=== PATIENT | female | born 1975 | race Caucasian/White ===

== ENCOUNTER → 2017-11-17 09:36 | Outpatient (CLI) | payer MEDICAID, SELFPAY ==
[2017-11-17 13:59] LABS: Alanine Aminotransferase 15 U/L (12-78); Albumin Level 3.6 gm/dL (3.4-5.0); Alkaline Phosphatase 61 U/L (46-116); Aspartate Amino Transferase 10 U/L (15-37); Bilirubin,Total 0.2 mg/dL (0.2-1.0); Blood Urea Nitrogen 22 mg/dL (7-18); Calcium 9.1 mg/dL (8.5-10.1); Carbon Dioxide 28 mmol/L (21.0-32.0); Chloride 105 mmol/L (98-107); Chol/HDL Ratio 2.5 (1-3.5); Cholesterol 177 mg/dL (140-200); Creatinine,Serum 0.75 mg/dL (0.55-1.02); Estimated Glomerular Filt Rate 84 ml/min (>60); Free T4 (Free Thyroxine) 0.99 ng/dl (0.76-1.46); GFR (African American) 102 ML/MIN (>60); Globulin 3.5 gm/dl (1.3-3.2); Glucose 88 mg/dL (74-106); HDL Cholesterol 71 mg/dL (29-89); LDL Cholesterol 97 mg/dL (0-130); Sodium 141 mmol/L (136-145); Thyroid Stimulating Hormone 4.01 uIU/ml (0.358-3.740); Total Protein,Serum 7.1 gm/dL (6.4-8.2); Triglycerides 45 mg/dL (30-200); VLDL Cholesterol 9 mg/dL (0-40)
[2017-11-17 14:32] LABS: Basophils % 0.3 % (0.1-2.0); Eosinophils # 0.1 K/mm3 (0.0-0.4); Eosinophils % 1.4 % (0.1-12.0); Hematocrit 47.7 % (37.0-47.0); Hemoglobin 15.4 g/dL (12.2-16.2); Lymphocytes # 1.7 K/mm3 (0.7-4.5); Mean Corpuscular HGB Conc 32.2 g/dL (31.8-35.4); Mean Corpuscular Hemoglobin 31.1 pg (27.0-31.2); Mean Corpuscular Volume 96.5 fl (81-99); Mean Platelet Volume 8.6 fl (7.4-10.4); Monocytes # 0.4 K/mm3 (0.1-1.0); Monocytes % 7.7 % (1.7-9.3); Neutrophils % 57.6 % (37.0-80.0); Platelet Count 171 K/mm3 (142-424); Red Blood Count 4.94 M/mm3 (4.20-5.40); Red Cell Distribution Width 13.3 % (11.5-17.5); White Blood Count 5.3 K/mm3 (4.8-10.8)
[2017-11-18 17:00] LABS: Vitamin B12 456 pg/mL (232-1245); Vitamin D 25 Hydroxy 34.2 ng/mL (30.0-100.0)
== END ==
PROVIDERS: Visit Provider Emergency Medicine
DX: J45.909 Unspecified asthma, uncomplicated (principal)
CPT/HCPCS: 80053; 80061; 82607; 82652; 84439; 84443; 85025

== ENCOUNTER → 2017-12-01 10:47 | Outpatient (CLI) | payer MEDICAID, SELFPAY ==
[2017-12-01 11:25] VITALS: PULSE 73
== END ==
PROVIDERS: PCP Emergency Medicine; Visit Provider Emergency Medicine
DX: J45.909 Unspecified asthma, uncomplicated (principal); R06.09 Other forms of dyspnea
CPT/HCPCS: 94060; 94640

== ENCOUNTER → 2018-02-13 13:45 | Outpatient (REF) | payer MEDICAID, SELFPAY ==
[2018-02-13 19:31] LABS: Anion Gap 11.8 mEq/L (5-15); Blood Urea Nitrogen 13 mg/dL (7-18); Calcium 9.2 mg/dL (8.5-10.1); Carbon Dioxide 32 mmol/L (21.0-32.0); Chloride 105 mmol/L (98-107); Creatinine,Serum 0.78 mg/dL (0.55-1.02); Estimated Glomerular Filt Rate 80 ml/min (>60); Free T4 (Free Thyroxine) 0.99 ng/dl (0.76-1.46); GFR (African American) 97 ML/MIN (>60); Glucose 87 mg/dL (74-106); Potassium 4.8 mmoL/L (3.5-5.1); Sodium 144 mmol/L (136-145); Thyroid Stimulating Hormone 3.43 uIU/ml (0.358-3.740)
== END ==
LOC: LAB 13:45
PROVIDERS: Visit Provider Emergency Medicine
DX: E03.9 Hypothyroidism, unspecified (principal)
CPT/HCPCS: 80048; 84439; 84443

== ENCOUNTER → 2018-03-06 19:42 | Outpatient (CLI) | payer MEDICAID, SELFPAY | PROVIDERS: PCP Emergency Medicine; Visit Provider Emergency Medicine | DX: G47.30 Sleep apnea, unspecified (principal); R40.0 Somnolence; E66.9 Obesity, unspecified | CPT/HCPCS: 95810 ==

== ENCOUNTER → 2018-04-25 06:29 | Outpatient (CLI) | payer MEDICAID, SELFPAY ==
--- NOTE | 2018-04-25 06:30 | MM_ITS ---
MM Dig screening mamm BI w/CAD ORDERING PHYSICIAN : Mahendra Jim MD PATIENT AGE: 43 years GENDER: Female COMPARISON: Outside mammogram studies from [facility] dated August 2014 INDICATION: ITS.REASON: screening asymptomatic. Family history of mother with ovarian cancer. Paternal Grandmother with breast cancer in her 70s TECHNIQUE: Standard CC and MLO images were obtained. R2 CAD reviewed. Additional bilateral nipple profile cc and right MLO view FINDINGS: Low-density breast bilaterally with generalized fatty replacement. . No mass lesion or suspicious calcification. Negative stable bilateral mammogram. Follow-up in one year adequate . IMPRESSION: Negative stable bilateral mammogram. Follow-up in one year adequate BI-RADS Category: 1 Negative RECOMMENDED FOLLOW-UP: 1YR 1 YEAR FOLLOW-UP (A letter has been sent to the patient regarding results of the study.)
--- NOTE | 2018-04-25 06:30 | NM_ITS ---
CARDIOLITE SPECT MYOCARDIAL PERFUSION SCAN, REST AND STRESS: EXERCISE STRESS [facility] REVIEW QGS EF AND WALL MOTION EVALUATION: QPS - PERFUSION EVALUATION HISTORY: CHEST PAIN DOSE: 10.38 mCi technetium 99m mibi intravenously at rest followed by 30.7 mCi technetium 99m mibi following the intravenous ministration of 0.4 mg of Lexiscan. Resting blood pressure is 113/55. Stress blood pressure 121/66. FINDINGS: Ejection fraction is calculated to be 66. Stress images reveal severely decreased activity throughout the inferior wall apex and septal wall. Rest images reveal worsening activity in the affected areas gated images calculated ejection fraction of 66% with normal wall motion IMPRESSION: Clinical correlation is advised. 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 However the gated images do reveal normal ejection fraction. Nevertheless this is still a high risk abnormal stress test
--- NOTE | 2018-04-25 07:24 | HMH.ITSHM ---
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 []WELLBUTRIN TRAZADONE ABILIFY HYDROXIZINE BISOPROLOL HYDROCHLOROTHIAZIDE OMEPRAZOLE LEVOTHYROXINE
[2018-04-25 07:52] LABS: Basophils % 0.4 % (0.1-2.0); Eosinophils # 0.1 K/mm3 (0.0-0.4); Hematocrit 48.6 % (37.0-47.0); Hemoglobin 16.1 g/dL (12.2-16.2); Lymphocytes # 1.9 K/mm3 (0.7-4.5); Lymphocytes % 23.8 % (10-50); Mean Corpuscular HGB Conc 33.1 g/dL (31.8-35.4); Mean Corpuscular Hemoglobin 31.7 pg (27.0-31.2); Mean Corpuscular Volume 95.8 fl (81-99); Mean Platelet Volume 7.5 fl (7.4-10.4); Monocytes # 0.5 K/mm3 (0.1-1.0); Monocytes % 5.7 % (1.7-9.3); Neutrophils # 5.6 K/mm3 (1.8-7.8); Neutrophils % 69.2 % (37.0-80.0); Platelet Count 207 K/mm3 (142-424); Red Blood Count 5.07 M/mm3 (4.20-5.40); Red Cell Distribution Width 13.3 % (11.5-17.5); White Blood Count 8.1 K/mm3 (4.8-10.8)
[2018-04-25 09:26] LABS: Alanine Aminotransferase 19 U/L (12-78); Albumin Level 3.7 gm/dL (3.4-5.0); Alkaline Phosphatase 74 U/L (46-116); Anion Gap 12.3 mEq/L (5-15); Aspartate Amino Transferase 6 U/L (15-37); Bilirubin,Direct 0.1 mg/dL (0.0-0.2); Bilirubin,Total 0.2 mg/dL (0.2-1.0); Blood Urea Nitrogen 25 mg/dL (7-18); Calcium 9.3 mg/dL (8.5-10.1); Carbon Dioxide 32 mmol/L (21.0-32.0); Chloride 101 mmol/L (98-107); Chol/HDL Ratio 3.1 (1-3.5); Cholesterol 178 mg/dL (140-200); Creatinine,Serum 0.77 mg/dL (0.55-1.02); Estimated Glomerular Filt Rate 81 ml/min (>60); Free T4 (Free Thyroxine) 0.98 ng/dl (0.76-1.46); GFR (African American) 99 ML/MIN (>60); Globulin 3.8 gm/dl (1.3-3.2); Glucose 104 mg/dL (74-106); HDL Cholesterol 57 mg/dL (29-89); LDL Cholesterol 96 mg/dL (0-130); Potassium 4.3 mmoL/L (3.5-5.1); Sodium 141 mmol/L (136-145); Thyroid Stimulating Hormone 2.81 uIU/ml (0.358-3.740); Total Protein,Serum 7.5 gm/dL (6.4-8.2); Triglycerides 126 mg/dL (30-200); VLDL Cholesterol 25 mg/dL (0-40)
== END ==
PROVIDERS: Nurse Practitioner Psychiatric/Mental Health; PCP Emergency Medicine; Visit Provider Internal Medicine Cardiovascular Disease
DX: Z12.31 Encounter for screening mammogram for malignant neoplasm of breast (principal); R07.9 Chest pain, unspecified; R06.09 Other forms of dyspnea; I10 Essential (primary) hypertension; I49.1 Atrial premature depolarization
CPT/HCPCS: 36415; 77067; 78452; 80053; 80061; 82248; 84439; 84443; 84481; 85025; 93017; 93306; A9502; J2785

== ENCOUNTER → 2018-07-09 10:43 | Outpatient (CLI) | payer MEDICAID, SELFPAY ==
[2018-07-09 11:34] LABS: Anion Gap 14.3 mEq/L (5-15); Blood Urea Nitrogen 22 mg/dL (7-18); Calcium 8.7 mg/dL (8.5-10.1); Carbon Dioxide 29 mmol/L (21.0-32.0); Chloride 99 mmol/L (98-107); Estimated Glomerular Filt Rate 68 ml/min (>60); GFR (African American) 82 ML/MIN (>60); Glucose 107 mg/dL (74-106); Potassium 3.3 mmoL/L (3.5-5.1); Sodium 139 mmol/L (136-145)
== END ==
PROVIDERS: Visit Provider Nurse Practitioner Family
DX: R06.02 Shortness of breath (principal); E66.9 Obesity, unspecified
CPT/HCPCS: 36415; 80048

== ENCOUNTER → 2018-08-03 14:53 | Outpatient (CLI) | payer MEDICAID, SELFPAY ==
[2018-08-03 17:40] LABS: Anion Gap 14.8 mEq/L (5-15); Blood Urea Nitrogen 17 mg/dL (7-18); Calcium 8.9 mg/dL (8.5-10.1); Carbon Dioxide 27 mmol/L (21.0-32.0); Chloride 102 mmol/L (98-107); Creatinine,Serum 0.98 mg/dL (0.55-1.02); Estimated Glomerular Filt Rate 62 ml/min (>60); GFR (African American) 75 ML/MIN (>60); Glucose 107 mg/dL (74-106); Potassium 3.8 mmoL/L (3.5-5.1); Sodium 140 mmol/L (136-145)
== END ==
PROVIDERS: Visit Provider Nurse Practitioner Family
DX: R06.00 Dyspnea, unspecified (principal); E66.9 Obesity, unspecified; E78.5 Hyperlipidemia, unspecified; I10 Essential (primary) hypertension; I51.9 Heart disease, unspecified; J44.9 Chronic obstructive pulmonary disease, unspecified; R07.9 Chest pain, unspecified; Z72.0 Tobacco use
CPT/HCPCS: 36415; 80048

== ENCOUNTER → 2018-12-05 08:57 | Outpatient (CLI) | payer MEDICAID, SELFPAY ==
[2018-12-05 10:28] LABS: Blood Urea Nitrogen 15 mg/dL (7-18); Calcium 8.8 mg/dL (8.5-10.1); Carbon Dioxide 30 mmol/L (21.0-32.0); Chloride 104 mmol/L (98-107); Creatinine,Serum 0.98 mg/dL (0.55-1.02); Estimated Glomerular Filt Rate 62 ml/min (>60); GFR (African American) 75 ML/MIN (>60); Glucose 97 mg/dL (74-106); Sodium 142 mmol/L (136-145)
== END ==
PROVIDERS: Visit Provider Nurse Practitioner Family
DX: R94.30 Abnormal result of cardiovascular function study, unspecified (principal); R06.00 Dyspnea, unspecified; E66.9 Obesity, unspecified; E78.5 Hyperlipidemia, unspecified; I10 Essential (primary) hypertension; I51.9 Heart disease, unspecified; J44.9 Chronic obstructive pulmonary disease, unspecified; Z72.0 Tobacco use
CPT/HCPCS: 36415; 80048

== ENCOUNTER → 2019-01-01 09:48 | Outpatient (CLI) | payer MEDICAID, SELFPAY ==
--- NOTE | 2019-01-01 09:52 | XR_ITS ---
XR foot RT min 3V HISTORY: ITS.REASON: right foot pain ORDERING PHYSICIAN: Beny Chris MD PATIENT AGE: 43 years COMPARISON: None FINDINGS: No fracture or dislocation. No lytic or blastic change. There is normal mineralization.. The joint spaces are well-preserved. No significant degenerative/arthritic changes. No erosive changes evident. Incidental note made of a small calcaneal spur and a small area of exostosis of the neck of the talus anteriorly IMPRESSION: No acute finding
== END ==
PROVIDERS: PCP Emergency Medicine; Visit Provider Emergency Medicine
DX: M79.671 Pain in right foot (principal)
CPT/HCPCS: 73630

== ENCOUNTER → 2019-05-20 11:39 | Outpatient (CLI) | payer MEDICAID, SELFPAY ==
--- NOTE | 2019-05-20 11:43 | XR_ITS ---
PROCEDURE: XR CHEST 2V CLINICAL HISTORY: cough Cough, smoker COMPARISON: No exams were available for comparison FINDINGS: The cardiomediastinal silhouette and pulmonary vascularity are within normal limits. The lungs are clear without infiltrates, suspicious nodules, or pleural effusions. There are degenerative changes in the thoracic IMPRESSION: No acute findings. Dictated by: Vaughn Jalloh MD 05/20/2019 12:02 Electronically signed by Vaughn Jalloh MD in [place] 05/20/2019 12:02
[2019-05-20 13:06] LABS: Anion Gap 13.5 mEq/L (5-15); Blood Urea Nitrogen 13 mg/dL (7-18); Calcium 8.5 mg/dL (8.5-10.1); Carbon Dioxide 28 mmol/L (21.0-32.0); Chloride 103 mmol/L (98-107); Creatinine,Serum 0.92 mg/dL (0.55-1.02); Estimated Glomerular Filt Rate 66 ml/min (>60); GFR (African American) 80 ML/MIN (>60); Glucose 93 mg/dL (74-106); Potassium 4.5 mmoL/L (3.5-5.1); Sodium 140 mmol/L (136-145)
[2019-05-20 13:09] LABS: Troponin I < 0.02 ng/ml (0.00-0.06)
== END ==
PROVIDERS: PCP Emergency Medicine; Visit Provider Physician Assistant
DX: R05 Cough (principal); R06.2 Wheezing; R09.89 Other specified symptoms and signs involving the circulatory and respiratory systems; R06.09 Other forms of dyspnea; R07.9 Chest pain, unspecified; E78.2 Mixed hyperlipidemia; I10 Essential (primary) hypertension; I49.1 Atrial premature depolarization; J43.9 Emphysema, unspecified; R94.30 Abnormal result of cardiovascular function study, unspecified
CPT/HCPCS: 36415; 71046; 80048; 84484

== ENCOUNTER → 2019-11-07 15:46 | Outpatient (CLI) | payer MEDICAID, SELFPAY ==
--- NOTE | 2019-11-07 15:46 | MM_ITS ---
PROCEDURE: MM DIG SCREENING MAMM BI W/CAD Digital Breast Tomosynthesis Included CLINICAL INDICATION: screening There is a history of breast cancer patient's paternal grandmother and paternal great aunt. COMPARISON: [facility] Digital Mammo Screening from 08/26/2014 [facility] MM Dig screening mamm BI w/CAD from 04/25/2018 TECHNIQUE: Standard CC and MLO images and 3D Tomosynthesis was obtained. R2 CAD reviewed. FINDINGS: The breasts are composed almost entirely of fat with very minimal scattered fibroglandular densities noted. New or suspicious lesion in either breast and no suspicious microcalcifications. IMPRESSION: Low-density fatty type breast parenchyma with no suspicious lesions seen BI-RAD Category: 1 Negative FOLLOW-UP: 1YR 1 Year Follow-up (A letter has been sent to the patient regarding results of the study.) Dictated by: Dr. Kirt Ba MD 11/08/2019 08:[address] Kirt Ba MD in [place] 11/08/2019 08:52
== END ==
PROVIDERS: PCP Emergency Medicine; Visit Provider Emergency Medicine
DX: Z12.31 Encounter for screening mammogram for malignant neoplasm of breast (principal)
CPT/HCPCS: 77063; 77067

== ENCOUNTER → 2020-03-20 18:45 | Outpatient (CLI) | payer MEDICAID, SELFPAY ==
[2020-03-24 07:57] LABS: Neisseria gonorrhoeae, NAA Negative (Negative)
== END ==
PROVIDERS: Visit Provider Nurse Practitioner Family
DX: R30.0 Dysuria (principal)
CPT/HCPCS: 87086; 87491; 87591

== ENCOUNTER → 2020-04-07 17:35 | Outpatient (CLI) | payer MEDICAID, SELFPAY | PROVIDERS: Visit Provider Emergency Medicine | DX: R39.9 Unspecified symptoms and signs involving the genitourinary system (principal) | CPT/HCPCS: 87086 ==

== ENCOUNTER 2020-06-12 16:44 | Emergency (ER) | payer MEDICAID, SELFPAY ==
--- NOTE | 2020-06-12 16:34 | ECG_ITS ---
APPROVED REPORT Exam: Resting ECG HR:109 bpm ECG Measurements Heart Rate 109 AXES MN 160 P 57 QRSd 80 QRS 32 QT 332 T 54 QTc 447 Conclusion Sinus tachycardia Low voltage QRS Cannot rule out Anterior infarct, age undetermined Abnormal ECG Electronically signed by : Mario Salcido, 06/12/2020 21:05:18
[2020-06-12 16:45] VITALS: BP 142/81; PULSE 112; RESP 32; TEMP 36.6; O2SAT 98; BMI 53.4
--- NOTE | 2020-06-12 16:51 | CT_ITS ---
PROCEDURE: CT ANGIO CHEST CLINCIAL INDICATION: Pleuritic chest pain (r/o PE) COMPARISON: No exams were available for comparison TECHNIQUE: IV Contrast: 70ML Isovue 370 Axial images obtained with sagittal and coronal reformats. All CT scans at the facility use one or more dose reduction, viz: automated exposure control, ma/kV adjustment per patient size (including targeted exams where dose is matched to indication, i.e. head), or iterative reconstruction technique. FINDINGS: Pulmonary artery enhancement is limited despite repeating the exam at different timing. No evidence of aortic aneurysm or dissection. No obvious central pulmonary embolus. Peripheral pulmonary arteries are not well opacified. There are scattered small mediastinal lymph nodes. There are mild atelectatic changes in the lung bases. No acute bony findings. There are degenerative changes in the thoracic spine mid to lower thoracic osteophytosis. There are old right-sided rib fractures. No evidence of pneumothorax. IMPRESSION: Minimal atelectatic changes in the lung bases. No obvious pulmonary embolus. Scattered small mediastinal lymph nodes. The Dictated by: Vaughn Jalloh MD 06/13/2020 06:20 Vaughn Jalloh MD in [place] 06/13/2020 06:20
--- NOTE | 2020-06-12 16:51 | XR_ITS ---
PROCEDURE: XR CHEST PORTABLE CLINICAL HISTORY: chest pain COMPARISON: CR XR CHEST 2V from 05/20/[address] ANGIO CHEST from 06/12/2020 FINDINGS: The cardiomediastinal silhouette and pulmonary vascularity are within normal limits. The lungs are clear without infiltrates, suspicious nodules, or pleural effusions. There are mild multilevel degenerate changes lower thoracic spine. No acute bony abnormalities. IMPRESSION: No acute findings. Dictated by: Dr. Kirt Ba MD 06/12/2020 19:22 Dr. Kirt Ba MD in [place] 06/12/2020 19:22
--- NOTE | 2020-06-12 16:51 | HMH.EDGENADL ---
ED Disposition Condition on Discharge: Fair - Critical Care Critical Care Time: No <Toi Anne - Last Filed: 06/12/20 19:51> <Beny Chris - Last Filed: 06/12/20 20:45> Clinical Impression: Right leg pain, Elevated d-dimer Chest pain Qualifiers: Chest pain type: unspecified Qualified Code(s): R07.9 - Chest pain, unspecified Disposition: Home, Self-Care Instructions: DI for Atypical Chest Pain Additional Instructions: will obtain venous doppler in am and see monday Referrals: Provider,Referral, [Referring] - Attestation: On 06/12/20, the high probability of a clinically significant, sudden or life threatening deterioration of the following system(s) required my full and direct attention, intervention and personal management. The time I documented below is in addition to time spent performing reported procedures but includes the following listed in this critical care notation. Medical Decision Making - Medical Records Medical records reviewed: Yes: I reviewed the patient's medical records. - Estrada Inquiry Pt receiving controlled substance: No - Lab Data Result diagrams: 06/12/20 16:50 06/12/20 16:50 <Toi Anne - Last Filed: 06/12/20 19:51> - Lab Data Lab results reviewed: Yes: I reviewed the patient's lab results. Result diagrams: 06/12/20 16:50 06/12/20 16:50 - Radiology Data #1 Image(s): Chest Image Reviewed: Yes I reviewed the patient's radiology image Preliminary Findings: Normal/NAD - ASHLEY Score for Non-Stemi Age of Patient: 40-49 years old Heart Rate: 110-149 bpm Systolic Blood Pressure: 140-159 mmHg Serum Creatinine: 0.80-1.19 mg/dl CHF Killip Class: I-No CHF Other Risk Factors: None Non-Stemi Risk Score: 80 <Beny Chris - Last Filed: 06/12/20 20:45> Vital Signs: 06/12/20 16:45 06/12/20 17:00 06/12/20 17:30 Temperature 98 F Temperature Source Oral Pulse Rate [Radial] 112 H 109 H 108 H Respiratory Rate 32 H 16 Blood Pressure [Right Radial Artery] 142/81 H 117/69 134/79 Blood Pressure Mean [Right Radial Artery] 101 85 97 Blood Pressure Position [Right Radial Artery] Sitting Sitting Sitting 02 Sat by Pulse Oximetry 98 96 96 Oxygen Delivery Method Room Air Room Air Room Air 06/12/20 18:30 Temperature Temperature Source Pulse Rate [Radial] 100 H Respiratory Rate Blood Pressure [Right Radial Artery] 145/88 H Blood Pressure Mean [Right Radial Artery] 107 Blood Pressure Position [Right Radial Artery] Sitting 02 Sat by Pulse Oximetry 99 Oxygen Delivery Method Room Air - Lab Data Lab Results 06/12/20 16:10: D-Dimer 0.93 H 06/12/20 16:50: WBC 7.7, RBC 4.38, Hgb 13.5, Hct 41.1, MCV 94.0, MCH 30.8, MCHC 32.7, RDW 13.5, Plt Count 234, MPV 8.4, Neut % (Auto) 70.4, Lymph % (Auto) 22.1, [place] % (Auto) 5.2, Eos % (Auto) 1.6, Baso % (Auto) 0.7, Neut # (Auto) 5.4, Lymph # (Auto) 1.7, [place] # (Auto) 0.4, Eos # (Auto) 0.1, Baso # (Auto) 0.1 06/12/20 16:50: Sodium 141, Potassium 4.0, Chloride 107, Carbon Dioxide 30, Anion Gap 8.0, BUN 16, Creatinine 0.90, Estimated GFR 67, Est GFR ( Amer) 82, Glucose 120 H, Calcium 8.7, Total Bilirubin 0.3, AST 31, ALT 19, Alkaline Phosphatase 75, Troponin I < 0.01, Total Protein 6.8, Albumin 3.5, Globulin 3.3 H, Albumin/Globulin Ratio 1.1 06/12/20 18:45: Group A Strep Rapid Negative 06/12/20 20:10: Troponin I < 0.01 Orders (Tests/Meds): ED MEDICATIONS Generic Name Dose Route Start Last Admin Trade Name Freq PRN Reason Stop Dose Admin Lactated Ringer's 1,000 mls @ 999 mls/hr 06/12/20 18:45 06/12/20 18:33 Lactated Ringer's 1000 Ml Bag IV 06/12/20 19:45 999 mls/hr .Q1H1M GERMAN Administration Discontinued Medications Generic Name Dose Route Start Last Admin Trade Name Freq PRN Reason Stop Dose Admin Iopamidol 70 ml 06/12/20 18:11 06/12/20 18:11 Iopamidol-370 (76%);100ml Bottle IV 06/12/20 18:12 70 ml ONCE ONE Administration Morphine Sulfate 4 mg 06/12/20 18:37 0
[2020-06-12 16:58] LABS: Basophils # 0.1 K/mm3 (0-0.2); Basophils % 0.7 % (0.1-2.0); Eosinophils # 0.1 K/mm3 (0.0-0.4); Eosinophils % 1.6 % (0.1-12.0); Hematocrit 41.1 % (37.0-47.0); Hemoglobin 13.5 g/dL (12.2-16.2); Lymphocytes # 1.7 K/mm3 (0.7-4.5); Lymphocytes % 22.1 % (10-50); Mean Corpuscular HGB Conc 32.7 g/dL (31.8-35.4); Mean Corpuscular Hemoglobin 30.8 pg (27.0-31.2); Mean Platelet Volume 8.4 fl (7.4-10.4); Monocytes # 0.4 K/mm3 (0.1-1.0); Monocytes % 5.2 % (1.7-9.3); Neutrophils # 5.4 K/mm3 (1.8-7.8); Neutrophils % 70.4 % (37.0-80.0); Platelet Count 234 K/mm3 (142-424); Red Blood Count 4.38 M/mm3 (4.20-5.40); Red Cell Distribution Width 13.5 % (11.5-17.5); White Blood Count 7.7 K/mm3 (4.8-10.8)
[2020-06-12 17:00] VITALS: BP 117/69; PULSE 109; RESP 16; O2SAT 96
[2020-06-12 17:02] LABS: Chloride 107 mmol/L (98-107); Sodium 141 mmol/L (136-145)
[2020-06-12 17:04] LABS: Alanine Aminotransferase 19 U/L (12-78); Aspartate Amino Transferase 31 U/L (14-36); Blood Urea Nitrogen 16 mg/dl (7-17); Estimated Glomerular Filt Rate 67 ml/min (>60); GFR (African American) 82 ML/MIN (>60)
[2020-06-12 17:05] LABS: Albumin Level 3.5 g/dl (3.5-5.0); Albumin/Globulin Ratio 1.1 (1.1-1.8); Alkaline Phosphatase 75 U/L (38-126); Bilirubin,Total 0.3 mg/dl (0.2-1.3); Calcium 8.7 mg/dl (8.4-10.2); Carbon Dioxide 30 mmol/L (22.0-30.0); Globulin 3.3 g/dL (1.3-3.2); Glucose 120 mg/dl (74-100); Total Protein,Serum 6.8 g/dl (6.3-8.2)
[2020-06-12 17:20] LABS: Troponin I < 0.01 ng/ml (0.00-0.034)
[2020-06-12 17:30] VITALS: BP 134/79; PULSE 108; O2SAT 96
[2020-06-12 18:30] VITALS: BP 145/88; PULSE 100; O2SAT 99
[2020-06-12 18:39] LABS: D-Dimer 0.93 ug/mL (0.0-0.5)
[2020-06-12 19:00] LABS: Strep Scrn Group A (Rapid) Negative (Negative)
[2020-06-12 20:39] LABS: Troponin I < 0.01 ng/ml (0.00-0.034)
[2020-06-12 20:48] VITALS: BP 118/69; PULSE 108; RESP 20; TEMP 36.8; O2SAT 96
== END 2020-06-12 20:57 | disposition home or self-care (01) ==
PROVIDERS: Emergency Provider Emergency Medicine; PCP Emergency Medicine
DX: M79.661 Pain in right lower leg (principal); R07.9 Chest pain, unspecified; J45.909 Unspecified asthma, uncomplicated; K21.9 Gastro-esophageal reflux disease without esophagitis; E03.9 Hypothyroidism, unspecified; F41.8 Other specified anxiety disorders; E66.9 Obesity, unspecified; Z68.43 Body mass index [BMI] 50.0-59.9, adult; Z20.822 Contact with and (suspected) exposure to COVID-19; F17.210 Nicotine dependence, cigarettes, uncomplicated
CPT/HCPCS: 71045; 71275; 80053; 84484; 85025; 85378; 87430; 93005; 96365; 99284; J2405; Q9967; U0003

== ENCOUNTER → 2020-06-13 11:57 | Outpatient (CLI) | payer MEDICAID, SELFPAY ==
--- NOTE | 2020-06-13 12:00 | CA_ITS ---
APPROVED REPORT Right Lower Extremity Venous Study for DVT. Excel Developer: Colleen Boggs RVT Indications Lower Extremity Pain: Right Lower Extremity Edema: Right Shortness of breath Current Smoker RLE PAIN/EDEMA X SEVERAL DAYS, NKI Risk Factors Obesity Current Smoker Vein Imaging CFV (R): compressive, spontaneous, phasic, augmentation FEM (R): compressive, spontaneous, phasic, augmentation POP (R): compressive, spontaneous, phasic, augmentation PTV (R): Compressible GSV (R): Compressible Peroneals (R):Compressible GAS (R): Compressible Findings Study suggests no evidence of DVT of the right lower extremity. Study suggests no evidence of SVT of the right lower extremity. Conclusion Study suggests no evidence of DVT of the right lower extremity. Study suggests no evidence of SVT of the right lower extremity. Electronically signed by : Vaughn Jalloh MD 06/15/2020 15:18:41
== END ==
PROVIDERS: PCP Emergency Medicine; Visit Provider Emergency Medicine
DX: M79.661 Pain in right lower leg (principal); M79.89 Other specified soft tissue disorders
CPT/HCPCS: 93971

== ENCOUNTER → 2020-06-15 16:47 | Outpatient (CLI) | payer MEDICAID, SELFPAY ==
[2020-06-15 17:41] LABS: Free T4 (Free Thyroxine) 0.98 ng/dl (0.78-2.19)
[2020-06-15 17:56] LABS: Thyroid Stimulating Hormone 4.46 uIU/mL (0.465-4.68)
== END ==
LOC: LAB 16:48 → LAB.DROPOF 16:54
PROVIDERS: Visit Provider Emergency Medicine
DX: R60.9 Edema, unspecified (principal); Z79.899 Other long term (current) drug therapy
CPT/HCPCS: 84439; 84443

== ENCOUNTER → 2020-07-10 12:43 | Outpatient (CLI) | payer MEDICAID, SELFPAY | PROVIDERS: PCP Emergency Medicine; Visit Provider Emergency Medicine | DX: Z20.822 Contact with and (suspected) exposure to COVID-19 (principal) | CPT/HCPCS: U0003 ==

== ENCOUNTER → 2020-10-22 11:55 | Outpatient (CLI) | payer MEDICAID, SELFPAY ==
[2020-10-22 12:38] LABS: Chloride 103 mmol/L (98-107); Sodium 140 mmol/L (136-145)
[2020-10-22 12:41] LABS: Blood Urea Nitrogen 19 mg/dl (7-17); Estimated Glomerular Filt Rate 60 ml/min (>60); GFR (African American) 72 ML/MIN (>60)
[2020-10-22 12:42] LABS: Alanine Aminotransferase 16 U/L (12-78); Albumin Level 4.1 g/dl (3.5-5.0); Alkaline Phosphatase 86 U/L (38-126); Aspartate Amino Transferase 24 U/L (14-36); Bilirubin,Direct 0.2 mg/dl (0.0-0.4); Bilirubin,Total 0.2 mg/dl (0.2-1.3); Calcium 9.4 mg/dl (8.4-10.2); Carbon Dioxide 30 mmol/L (22.0-30.0); Chol/HDL Ratio 3.7 (1-3.5); Cholesterol 187 mg/dl (140-200); Glucose 110 mg/dl (74-100); HDL Cholesterol 51 mg/dl (40-60); Total Protein,Serum 6.9 g/dl (6.3-8.2); Triglycerides 141 mg/dl (30-150); VLDL Cholesterol 28 mg/dL (0-40)
[2020-10-22 12:48] LABS: NT Pro Brain Natriuretic Pep. 263 pg/mL (0-125)
[2020-10-22 12:53] LABS: Direct LDL Cholesterol 107.09 mg/dL (100-129)
== END ==
PROVIDERS: Visit Provider Internal Medicine Cardiovascular Disease
DX: I50.9 Heart failure, unspecified (principal); R60.9 Edema, unspecified; G62.9 Polyneuropathy, unspecified; F41.9 Anxiety disorder, unspecified; G47.33 Obstructive sleep apnea (adult) (pediatric); E66.9 Obesity, unspecified; Z68.44 Body mass index [BMI] 60.0-69.9, adult
CPT/HCPCS: 36415; 80048; 80061; 80076; 83880

== ENCOUNTER → 2020-10-28 11:09 | Outpatient (CLI) | payer MEDICAID, SELFPAY ==
--- NOTE | 2020-10-28 11:11 | CA_ITS ---
APPROVED REPORT EXAM: Comprehensive 2D, Doppler, and color-flow Echocardiogram Supply Chain Consultant: Colleen Boggs RVT Ht: 5 ft 2 in Wt: 310lbs BSA: 2.30 BP: 142/88 mmHg Indications: SOA,CP,SMOKER,OBESITY,DD,GERD,EMPHYSEMA,HTN,HLD,EDEMA 2D Dimensions LVOT 1.84 cm (M/F) 1.5-2.5 LA Volume 43.90 mL LA Volume Index 19.08 mL/m2 (M/F) 16-34 M-Mode Dimensions RVDd 2.90 cm (0.9-2.6) LA Diam 4.50 cm (1.9-4.0) LVDd 5.11 cm (3.5-5.7) Ao Diam 3.15 cm (2.0-3.7) LVDs 2.66 cm (3.5-5.7) IVSd 1.01 cm (0.6-1.1) PWd 0.85 cm (0.6-1.1) EF (Teich) 79.10% FS 47.90% EDV (Teich) 124.40 mL TAPSE 2.99 (<1.7) ESV (Teich) 26.00 mL LV Diastology E Decel Time 187.00 (160-240 msec) E/A Ratio 1.1 MED E' 8.60 (< 7 cm/sec) E'/MED E' Ratio 13.60 (>14) LAT E' 11.10 (<10 cm/sec) E/LAT E' Ratio 10.54 (>14) Aortic Valve AO Peak GR. 9.80 mmHg Mitral Valve MV E Max Tonny. 117.00 (40-130 cm/s) MV A Velocity 102.00 (40-130 cm/s) E/A Ratio 1.14 MV Decel. Time 187.00 (160-240 ms) MV PHT 55.00 ms Pulmonary Valve PV Peak Velocity 90.00 (50-150 cm/s) Tricuspid Valve TR P. Velocity 312.00 cm/s RAP Estimate 10.00 mmHg RVSP 48.80 mmHg Left Ventricle Left atrium is mildly enlarged, left ventricle is normal size, mild concentric left ventricular hypertrophy, visually estimated ejection fraction 55% with no regional wall motion abnormality, grade 1 diastolic dysfunction seen without tissue Doppler evidence of raise left atrial pressure. Right Ventricle Right atrium and right ventricle are mildly enlarged with normal contractility. Aortic Valve Aortic valve is grossly normal, there is no aortic stenosis or aortic insufficiency. Mitral Valve Mitral valve grossly normal, there is trace mitral regurgitation. Tricuspid Valve Tricuspid grossly normal, there is trace tricuspid regurgitation, tricuspid regurgitation jet velocity is inadequate for calculation of the right ventricular systolic pressure. Pulmonic Valve Pulmonic valve is poorly visualized. Great Vessels Aortic root is normal size. Pericardium No significant pericardial effusion noted. Conclusion 1. Mild biatrial enlargement, normal left ventricular size, mild concentric left ventricular hypertrophy, visually estimated ejection fraction 55% with no regional wall motion abnormality, grade 1 diastolic dysfunction seen without tissue Doppler evidence of raise left atrial pressure. 2. Mildly enlarged right ventricle with normal contractility. 3. Trace mitral and tricuspid regurgitation. 4. No significant pericardial effusion noted. Electronically signed by : Mahendra Jim, 10/29/2020 16:13:14
== END ==
PROVIDERS: PCP Emergency Medicine; Visit Provider Internal Medicine Cardiovascular Disease
DX: R07.9 Chest pain, unspecified (principal); R06.00 Dyspnea, unspecified
CPT/HCPCS: 93306

== ENCOUNTER → 2020-11-05 10:56 | Outpatient (CLI) | payer MEDICAID, SELFPAY ==
[2020-11-05 11:18] LABS: Basophils % 0.3 % (0.1-2.0); Eosinophils # 0.1 K/mm3 (0.0-0.4); Hematocrit 42.2 % (37.0-47.0); Hemoglobin 14.1 g/dL (12.2-16.2); Lymphocytes # 1.2 K/mm3 (0.7-4.5); Lymphocytes % 16.1 % (10-50); Mean Corpuscular HGB Conc 33.3 g/dL (31.8-35.4); Mean Corpuscular Hemoglobin 30.9 pg (27.0-31.2); Mean Corpuscular Volume 92.8 fl (81-99); Mean Platelet Volume 7.9 fl (7.4-10.4); Monocytes # 0.3 K/mm3 (0.1-1.0); Monocytes % 3.8 % (1.7-9.3); Neutrophils # 5.6 K/mm3 (1.8-7.8); Neutrophils % 78.9 % (37.0-80.0); Platelet Count 211 K/mm3 (142-424); Red Blood Count 4.55 M/mm3 (4.20-5.40); Red Cell Distribution Width 13.9 % (11.5-17.5); White Blood Count 7.1 K/mm3 (4.8-10.8)
[2020-11-05 11:54] LABS: Chloride 100 mmol/L (98-107)
[2020-11-05 11:55] LABS: Potassium 4.5 mmoL/L (3.5-5.1); Sodium 136 mmol/L (136-145)
[2020-11-05 11:57] LABS: Alanine Aminotransferase 18 U/L (12-78); Alkaline Phosphatase 87 U/L (38-126); Aspartate Amino Transferase 25 U/L (14-36); Bilirubin,Total 0.4 mg/dl (0.2-1.3); Blood Urea Nitrogen 12 mg/dl (7-17); Estimated Glomerular Filt Rate 77 ml/min (>60); GFR (African American) 93 ML/MIN (>60)
[2020-11-05 11:58] LABS: Albumin Level 3.9 g/dl (3.5-5.0); Albumin/Globulin Ratio 1.3 (1.1-1.8); Anion Gap 8.5 mEq/L (5-15); Calcium 8.9 mg/dl (8.4-10.2); Carbon Dioxide 32 mmol/L (22.0-30.0); Chol/HDL Ratio 3.7 (1-3.5); Cholesterol 182 mg/dl (140-200); Globulin 3.1 g/dL (1.3-3.2); Glucose 133 mg/dl (74-100); HDL Cholesterol 49 mg/dl (40-60); Triglycerides 112 mg/dl (30-150); VLDL Cholesterol 22 mg/dL (0-40)
[2020-11-05 12:07] LABS: NT Pro Brain Natriuretic Pep. 421 pg/mL (0-125)
[2020-11-05 12:09] LABS: Direct LDL Cholesterol 105.02 mg/dL (100-129)
--- NOTE | 2020-11-05 12:27 | XR_ITS ---
PROCEDURE: XR CHEST 2V CLINICAL HISTORY: dyspnea COMPARISON: CR XR CHEST 2V from 05/20/[address] ANGIO CHEST from 06/12/2020 CR XR CHEST PORTABLE from 06/12/2020 FINDINGS: The cardiomediastinal silhouette and pulmonary vascularity are within normal limits. The lungs are clear without infiltrates, suspicious nodules, or pleural effusions. There are mild degenerative changes in the thoracic spine. IMPRESSION: No acute findings. Dictated by: Vaughn Jalloh MD 11/05/2020 13:11 Vaughn Jalloh MD in [place] 11/05/2020 13:11
[2020-11-05 13:04] LABS: Hemoglobin A1C 5.1 % (4.0-6.0)
== END ==
LOC: LAB 10:56 → RAD 12:18
PROVIDERS: PCP Emergency Medicine; Visit Provider Nurse Practitioner Family
DX: R06.09 Other forms of dyspnea (principal); I50.9 Heart failure, unspecified; I11.0 Hypertensive heart disease with heart failure; R60.9 Edema, unspecified; I50.33 Acute on chronic diastolic (congestive) heart failure; R60.0 Localized edema
CPT/HCPCS: 36415; 71046; 80053; 80061; 83036; 83880; 85025

== ENCOUNTER → 2020-11-19 20:09 | Outpatient (CLI) | payer MEDICAID, SELFPAY | PROVIDERS: PCP Emergency Medicine; Visit Provider Emergency Medicine | DX: I10 Essential (primary) hypertension (principal); R40.0 Somnolence; R06.83 Snoring; J44.9 Chronic obstructive pulmonary disease, unspecified; E66.01 Morbid (severe) obesity due to excess calories; Z68.43 Body mass index [BMI] 50.0-59.9, adult; G47.30 Sleep apnea, unspecified | CPT/HCPCS: 95810 ==

== ENCOUNTER → 2021-02-17 11:07 | Outpatient (CLI) | payer MEDICAID, SELFPAY | PROVIDERS: PCP Emergency Medicine; Visit Provider Emergency Medicine | DX: R55 Syncope and collapse (principal) | CPT/HCPCS: 93005; 93225; 93226 ==

== ENCOUNTER → 2021-02-17 14:24 | Outpatient (CLI) | payer MEDICAID, SELFPAY ==
[2021-02-17 16:04] LABS: Amphetamine/Metha Screen,Urine Negative ng/ml (<1000)
[2021-02-17 16:05] LABS: Barbiturates Screen,Urine Negative ng/ml (<200)
[2021-02-17 16:06] LABS: Benzodiazepines Screen,Urine Negative ng/ml (<200); Cannabinoid Screen,Urine Negative ng/ml (<50)
[2021-02-17 16:07] LABS: Cocaine Screen,Urine Negative ng/ml (<300)
[2021-02-17 16:08] LABS: Methadone Screen,Urine Negative ng/ml (<300)
[2021-02-17 16:09] LABS: Opiate Screen,Urine Negative ng/ml (<300); Phencyclidine Screen,Urine Negative ng/ml (<25)
== END ==
PROVIDERS: Visit Provider Emergency Medicine
DX: Z79.899 Other long term (current) drug therapy (principal)
CPT/HCPCS: 80305

== ENCOUNTER 2021-03-16 18:02 | Inpatient (IN) | payer MEDICAID, SELFPAY ==
[2021-03-16] VITALS (9 sets, daily range): BP systolic 127–175; BP diastolic 85–107; PULSE 95–116; RESP 12–25; TEMP 36.6–36.9; O2SAT 76–100; BMI 43.2; BMI 43.0
--- NOTE | 2021-03-16 18:04 | PC.NURSE ---
Pt spoke with Dr Love stating that he does not wish to wait on the rest of his lab work and that he will go see Dr Chris tomorrow.
--- NOTE | 2021-03-16 18:37 | HMH.EDGENADL ---
ED Disposition Clinical Impression: COVID-19 virus infection Respiratory failure with hypoxia and hypercapnia Qualifiers: Chronicity: acute Qualified Code(s): J96.01 - Acute respiratory failure with hypoxia; J96.02 - Acute respiratory failure with hypercapnia Disposition: Admitted As Inpatient Condition on Discharge: Serious Referrals: Beny Chris MD [Primary Care Provider] - - Critical Care Critical Care Time: Yes Attestation: On , the high probability of a clinically significant, sudden or life threatening deterioration of the following system(s) required my full and direct attention, intervention and personal management. The time I documented below is in addition to time spent performing reported procedures but includes the following listed in this critical care notation. Total Critical Care Time: 45 Vital system(s) involved:: Respiratory Failure My critical care processes included: Assessment & monitoring of V/S, Initial and Re-exams, Data Review/Interpretation, Coordinating Care, Medication Orders and management, Documentation Medical Decision Making - Medical Records Medical records reviewed: Yes: I reviewed the patient's medical records. MR Comment: Record indicates history of COPD as well as diastolic dysfunction. Previous heart cath result reviewed, previous echocardiogram reviewed. See heart catheterization result below. - Estrada Inquiry Pt receiving controlled substance: No Vital Signs: 03/16/21 18:03 Temperature 98.4 F Temperature Source Oral Pulse Rate [Right Radial] 116 H Respiratory Rate 19 Blood Pressure [Right Arm] 127/87 Blood Pressure Mean [Right Arm] 100 Blood Pressure Source [Right Arm] Automatic Cuff Blood Pressure Position [Right Arm] Supine 02 Sat by Pulse Oximetry 76 L Oxygen Delivery Method Room Air - Lab Data Lab Results 03/16/21 18:38: Sodium 139, Potassium 4.4, Chloride 99, Carbon Dioxide 37 H, Anion Gap 7.4, BUN 13, Creatinine 0.90, Estimated Creat Clear 67, Estimated GFR 67, Est GFR ( Amer) 81, Glucose 131 H, Calcium 8.3 L, Total Bilirubin < 0.1 L, AST 27, ALT 18, Alkaline Phosphatase 89, Troponin I < 0.01, NT-Pro-B Natriuret Pep 442 H, Total Protein 6.9, Albumin 3.7, Globulin 3.2, Albumin/Globulin Ratio 1.2 03/16/21 18:38: WBC 7.7, RBC 4.15 L, Hgb 12.8, Hct 40.3, MCV 97.2, MCH 30.9, MCHC 31.8, RDW 14.5, Plt Count 265, MPV 8.6, Neut % (Auto) 70.7, Lymph % (Auto) 22.5, [place] % (Auto) 4.9, Eos % (Auto) 1.2, Baso % (Auto) 0.7, Neut # (Auto) 5.4, Lymph # (Auto) 1.7, [place] # (Auto) 0.4, Eos # (Auto) 0.1, Baso # (Auto) 0.1 03/16/21 18:44: Specimen Source Right radial, O2 % 36, ABG pH 7.22 L*, ABG pCO2 80.7 H, ABG pO2 72.8 L, ABG HCO3 32.4 H, ABG Total CO2 34.8 H, ABG O2 Saturation 93, ABG Base Excess 4.7 H, Vaughn Test Acceptable 03/16/21 18:52: SARS-CoV-2 (PCR) Detected A, Influenza A Untype (PCR) Not detected, Influenza Type B (PCR) Not detected Result diagrams: 03/16/21 18:38 03/16/21 18:38 Orders (Tests/Meds): ED MEDICATIONS Discontinued Medications Generic Name Dose Route Start Last Admin Trade Name Freq PRN Reason Stop Dose Admin Acetaminophen/Codeine Phosphate 1 lopez 03/16/21 20:47 Acetaminophen 300mg W/Codeine 30mg Take Home Pack (6) PO 03/16/21 20:48 ONCE ONE Furosemide 80 mg 03/16/21 18:48 03/16/21 19:02 Furosemide 40mg/4ml Vial IV 03/16/21 18:49 80 mg ONCE ONE Administration ORDERS Category Date Time Status CTA Chest [CT angio chest PE protocol] Stat Cat Scan 03/16/21 20:01 Ordered Troponin I Q3H Lab 03/16/21 21:45 Ordered Troponin I Q3H Lab 03/17/21 00:45 Ordered CARDIAC CATHETERIZATION DATE OF CATHETERIZATION:05/21/2018 9:26 AM PROCEDURES: 1. Left heart catheterization 2. Left ventriculogram 3. Selective coronary angiogram INDICATION FOR TEST: 1. High risk abnormal Myoview 2. Angina pectoris Informed consent was obtained prior to the procedure. COMPLICATIONS: None ESTIMAT
--- NOTE | 2021-03-16 18:44 | XR_ITS ---
PROCEDURE INFORMATION: Exam: XR Chest Exam date and time: 03/16/21 06:44 PM Age: 46 years old Clinical indication: Shortness of breath; Additional info: SOA TECHNIQUE: Imaging protocol: XR of the chest. Views: 1 view. COMPARISON: CR XR CHEST 2V 11/05/20 12:27 PM FINDINGS: Lungs: Unremarkable. No consolidation. Pleural spaces: Unremarkable. No pleural effusion. No pneumothorax. Heart/Mediastinum: Unremarkable. No cardiomegaly. Bones/joints: Unremarkable. IMPRESSION: No acute findings.
[2021-03-16 18:54] LABS: Basophils # 0.1 K/mm3 (0-0.2); Basophils % 0.7 % (0.1-2.0); Eosinophils # 0.1 K/mm3 (0.0-0.4); Eosinophils % 1.2 % (0.1-12.0); Hematocrit 40.3 % (37.0-47.0); Hemoglobin 12.8 g/dL (12.2-16.2); Lymphocytes # 1.7 K/mm3 (0.7-4.5); Lymphocytes % 22.5 % (10-50); Mean Corpuscular HGB Conc 31.8 g/dL (31.8-35.4); Mean Corpuscular Hemoglobin 30.9 pg (27.0-31.2); Mean Corpuscular Volume 97.2 fl (81-99); Mean Platelet Volume 8.6 fl (7.4-10.4); Monocytes # 0.4 K/mm3 (0.1-1.0); Monocytes % 4.9 % (1.7-9.3); Neutrophils # 5.4 K/mm3 (1.8-7.8); Neutrophils % 70.7 % (37.0-80.0); Platelet Count 265 K/mm3 (142-424); Red Blood Count 4.15 M/mm3 (4.20-5.40); Red Cell Distribution Width 14.5 % (11.5-17.5); White Blood Count 7.7 K/mm3 (4.8-10.8)
[2021-03-16 18:56] LABS: Chloride 99 mmol/L (98-107); Potassium 4.4 mmoL/L (3.5-5.1); Sodium 139 mmol/L (136-145)
[2021-03-16 18:59] LABS: Alanine Aminotransferase 18 U/L (12-78); Albumin Level 3.7 g/dl (3.5-5.0); Albumin/Globulin Ratio 1.2 (1.1-1.8); Alkaline Phosphatase 89 U/L (38-126); Anion Gap 7.4 mEq/L (5-15); Aspartate Amino Transferase 27 U/L (14-36); Blood Urea Nitrogen 13 mg/dl (7-17); Calcium 8.3 mg/dl (8.4-10.2); Carbon Dioxide 37 mmol/L (22.0-30.0); Creatinine Clearance Estimated 67 mL/min (50-200); Estimated Glomerular Filt Rate 67 ml/min (>60); GFR (African American) 81 ML/MIN (>60); Globulin 3.2 g/dL (1.3-3.2); Glucose 131 mg/dl (74-100); Total Protein,Serum 6.9 g/dl (6.3-8.2)
[2021-03-16 19:00] LABS: Bilirubin,Total < 0.1 mg/dl (0.2-1.3)
[2021-03-16 19:02] LABS: Influenza A, PCR Not Detected (NotDetected); Influenza B, PCR Not Detected (NotDetected)
[2021-03-16 19:08] LABS: NT Pro Brain Natriuretic Pep. 442 pg/mL (0-125)
[2021-03-16 19:13] LABS: Troponin I < 0.01 ng/ml (0.00-0.034)
[2021-03-16 19:14] LABS: ABG Base Excess 4.7 mmol/L (-2.4-2.3); ABG HCO3 32.4 mmhg (22.0-26.0); ABG Oxygen Saturation 93 % (90-100); ABG PH 7.22 mmol/L (7.35-7.45); ABG PO2 72.8 mmhg (80-100); ABG TCO2 34.8 mmhg (23-27)
[2021-03-16 19:16] LABS: Allen's Test Acceptable; Oxygen 36 %; Source Right Radial
[2021-03-16 19:17] LABS: ABG PCO2 80.7 mmhg (35.0-45.0)
--- NOTE | 2021-03-16 19:18 | ECG_ITS ---
APPROVED REPORT Exam: Resting ECG HR:103 bpm ECG Measurements Heart Rate 103 AXES PA 144 P 58 QRSd 88 QRS 31 QT 350 T 62 QTc 458 Conclusion Sinus tachycardia Cannot rule out Anterior infarct, age undetermined Abnormal ECG Electronically signed by : Mario Salcido MD 03/17/2021 21:17:29
--- NOTE | 2021-03-16 19:18 | PC.NURSE ---
Pt moved to room 6 to make room for BIPAP
[2021-03-16 19:45] LABS: Coronavirus 19, PCR Detected (NotDetected)
--- NOTE | 2021-03-16 20:01 | CT_ITS ---
PROCEDURE INFORMATION: Exam: CTA Chest With Contrast Exam date and time: 03/16/21 08:01 PM Age: 46 years old Clinical indication: Shortness of breath and other: Covid 19 positive; Additional info: Hypoxia, covid +, R/O pe TECHNIQUE: Imaging protocol: Computed tomographic angiography of the chest with contrast. 3D rendering (Not supervised by radiologist): MIP and/or 3D reconstructed images were created by the technologist. Radiation optimization: All CT scans at this facility use at least one of these dose optimization techniques: automated exposure control; mA and/or kV adjustment per patient size (includes targeted exams where dose is matched to clinical indication); or iterative reconstruction. Contrast material: ISOVUE 370; Contrast volume: 70 ml; Contrast route: INTRAVENOUS (IV); COMPARISON: CT ANGIO CHEST 06/12/20 05:40 PM FINDINGS: Pulmonary arteries: No CT evidence of pulmonary embolus. Aorta: Unremarkable. No aortic aneurysm. No aortic dissection. Lungs: Patchy bilateral lower lobe atelectasis. Pleural spaces: Unremarkable. No pneumothorax. No pleural effusion. Heart: Unremarkable. No cardiomegaly. No pericardial effusion. Lymph nodes: Unremarkable. No enlarged lymph nodes. Bones/joints: Unremarkable. No acute fracture. Soft tissues: Unremarkable. IMPRESSION: 1. Patchy bilateral lower lobe atelectasis. 2. No CT evidence of pulmonary embolus.
[2021-03-16 22:26] LABS: Troponin I < 0.01 ng/ml (0.00-0.034)
--- NOTE | 2021-03-16 23:26 | PC.NURSE ---
patient up to floor via stretcher @ this time.
[2021-03-17] VITALS (30 sets, daily range): BP systolic 117–176; BP diastolic 45–89; PULSE 60–113; RESP 20–41; TEMP 35.3–37.4; O2SAT 90–99; BMI 43.2
[2021-03-17 01:24] LABS: Troponin I < 0.01 ng/ml (0.00-0.034)
--- NOTE | 2021-03-17 03:08 | PC.NURSE ---
Pt arrived to floor from ED. She was being non-compliant and was unable to answer questions at this time. She was placed on BIPAP and 02 sats has remained 88-92% Call dixon within reach will continue to monitor.
[2021-03-17 05:43] LABS: POC Glucose,Bedside 188 (70-110)
--- NOTE | 2021-03-17 07:21 | P.CONPHA_ITS ---
[facility] VTE Monitoring - Patient Demographics Admission date: 03/16/21 Report Date: 03/17/21 Time: 07:21 Allergies/Adverse Reactions: Patient Allergies No Known Allergies Allergy (Verified 02/17/21 10:23) Height: 1.63 m Weight: 114.305 kg Patient Problems: Current Active Problems (Last Updated 11/21/17 @ 08:23 by OSIRIS Alarcon) COVID-19 virus infection (Acute) Respiratory failure with hypoxia and hypercapnia (Acute) - VTE Risk Labs: VTE Related Lab Results Hgb 12.8 g/dL (12.2-16.2) 03/16/21 18:38 Hct 40.3 % (37.0-47.0) 03/16/21 18:38 Plt Count 265 K/mm3 (142-424) 03/16/21 18:38 BUN 13 mg/dl (7-17) 03/16/21 18:38 Creatinine 0.90 mg/dl (0.52-1.04) 03/16/21 18:38 Estimated Creat Clear 67 mL/min (50-200) 03/16/21 18:38 Clinical Trial Participant: No - Prophylaxis VTE Prophylaxis Ordered?: Yes Types of VTE Prophylaxis: TEDS Knee High, Pharmacological Pharmacologic Type: Enoxaparin
[2021-03-17 07:32] LABS: ABG Base Excess 12.6 mmol/L (-2.4-2.3); ABG HCO3 43.5 mmhg (22.0-26.0); ABG Oxygen Saturation 91 % (90-100); ABG PO2 66.9 mmhg (80-100); ABG TCO2 48.6 mmhg (23-27)
[2021-03-17 07:36] LABS: Allen's Test Patient Unable; Oxygen 60% %; PEEP 10; Pressure Support 20; Source Right Radial
[2021-03-17 07:37] LABS: ABG PH 7.03 mmol/L (7.35-7.45)
--- NOTE | 2021-03-17 08:18 | HMH.PHAINT ---
MEDICATION RECONCILIATION COMPLETE USING SURESCRIPTS AND PREVIOUS DISCHARGE PAPERWORK
--- NOTE | 2021-03-17 09:56 | XR_ITS ---
PROCEDURE INFORMATION: Exam: XR Chest Exam date and time: 03/17/2021 9:56 AM Age: 46 years old Clinical indication: Device placement; Ett placement (vent status); Patient HX: Covid-- tube placement; Additional info: Intubation/ ng tube placement TECHNIQUE: Imaging protocol: XR of the chest. Views: 1 view. COMPARISON: CR XR CHEST PORTABLE 03/16/2021 6:58 PM FINDINGS: Tubes, catheters and devices: There is an endotracheal tube in place, the tip which projects 2.6 cm above the rosa m. A nasogastric tube traverses the esophagus and terminates below the bottom of the radiograph. Lungs: There is mild prominence of central pulmonary interstitial markings. There appear to be patchy infiltrates in the perihilar regions bilaterally, and in retrocardiac left lower lobe. The. There may be an effusion at the left lung base. Pleural spaces: Unremarkable. No pleural effusion. No pneumothorax. Heart/Mediastinum: The heart is enlarged. Bones/joints: Unremarkable. IMPRESSION: 1. Nasogastric tube traverses the esophagus and terminates below the bottom of the radiograph. 2. Satisfactory position of endotracheal tube, the tip of which projects 2.6 cm above the rosa m. 3. Cardiomegaly. 4. Multifocal airspace and interstitial opacities in both lungs.
[2021-03-17 09:59] LABS: Microscopic, Urine URINE MICROSCOPIC (MICROSCOPIC)
[2021-03-17 10:10] LABS: Appearance,Urine CLEAR (Clear); Bilirubin,Urine Negative (Negative); Blood, Urine TRACE-I (Negative); Color,Urine YELLOW (Yellow); Glucose,Urine (UA) Negative (Negative); Ketones,Urine Negative (Negative); Leukocyte Esterase,Urine Negative (Negative); Nitrate,Urine Negative (Negative); PH,Urine 5.5 (5.0-8.5); Protein,Urine Negative (Negative); Specific Gravity, Urine >= 1.030 (1.005-1.030); Urobilinogen,Urine 0.2 EU/dl (0.2)
--- NOTE | 2021-03-17 10:22 | HMH.HP ---
*Admission Date: 03/16/21 *Chief complaint: soa *History of present illness: 46 yr old female presented to ed with c/o soa cough, headache, pains in her hips and her feet. . Pt states she has a history of congestive heart failure. Reports 20 pound weight gain in the past 2 days with a large amount of swelling. per note Pt has a CPAP at home, but does not wear it. She says it always ends up on her head or on the floor. Denies fever. No known exposure to COVID-19. She has been vaccinated against COVID-19. Pt admitted for coivd and resp failure. this am pt was increase resp failure. pt seen and intubated per anesthesia. [facility] History I have reviewed the patient's past medical history: Yes Medical History: Reports:: Anxiety, Asthma, Congestive Heart Failure, Depression, Diabetes Mellitus Type 2, Gastroesophageal Reflux Disease(GERD), Hyperlipidemia, Hypertension, Migraine Denies:: Internal Pacemaker, Seizures *Have you ever received a pneumonia vaccine?: No *Have you received a flu vaccine this season?: No Other Medical History: Reports: Hypothyroidism, Other Laterality Cases: Left: Arthroscopy Knee Other Surgeries: Yes: Appendectomy, CABG, Cholecystectomy, Colonoscopy, Diagnostic Lap, Hernia Repair, Hysterectomy-Total, Hysterectomy-Partial. No: Pacemaker Amputation: No Fractures: No - *Social History Smoking Status: Current every day smoker Tobacco Type: cigarettes # Packs/Day (cigarettes): 1 #Yrs smoked (if former smoker): 25 Alcohol Intake: never Alcohol Intake Frequency:: other Substance Use Type: denies use *Occupational Status:: other Housing: apartment Household Members: significant other *Travel in the last 8 weeks: None - Psychiatric History Pschychiatric History:: Reports:: Anxiety, Depression Family Hx:: Unable to obtain Review of Systems - Review of Systems Review of systems:: pertinent systems reviewed and negative unless documented below - Constitutional Denies fatigue - Eyes Denies itchy eyes - ENT Denies dizziness, Denies sore throat - *Cardiovascular Reports shortness of breath with activity, Denies chest pain at rest - *Respiratory Reports cough, Reports shortness of breath, Reports shortness of breath with activity - *Gastrointestinal Denies abdominal pain - *Genitourinary Denies other - *Musculoskeletal Denies abnormal walking - Integumentary/Breasts Denies hair loss - *Neurologic Reports headache(s), Denies numbness, Denies weakness - Psychiatric Denies lack of enjoyment - Endocrine Denies increased hunger - Hematologic/Lymphatic Denies easy bruising - Allergic/Immunologic Denies wheezing Meds Home Medications Medication Instructions Recorded Confirmed Type albuterol sulfate 90 mcg/actuation 1 puff INHALATION Q6H PRN g 10/22/20 03/16/21 History aerosol inhaler lisinopril 10 mg tablet 10 mg PO DAILY tab 10/22/20 03/16/21 History hydrocodone 5 mg-acetaminophen 325 1 tab PO BID PRN #60 tab 02/19/21 03/16/21 Rx mg tablet Albuterol Sulfate [Albuterol 0.63 mg INHALATION Q6H PRN 03/16/21 03/16/21 History Sulfate 0.63mg/3ml Neb] Gabapentin 800 mg PO TID 03/16/21 03/16/21 History Levothyroxine Sodium [Synthroid 25 mcg PO DAILY 03/16/21 03/16/21 History 25mcg (0.025mg) tablet] Omeprazole 40 mg PO DAILY 03/16/21 03/16/21 History SUMAtriptan succinate [Sumatriptan See Rx Instructions PO .COMPLEX 03/16/21 03/16/21 History Succinate] Torsemide 100 mg PO DAILY 03/16/21 03/16/21 History Vilazodone HCl [Viibryd] 40 mg PO DAILY 03/16/21 03/16/21 History Ziprasidone HCl 40 mg PO BID 03/16/21 03/16/21 History lamoTRIgine [Lamotrigine] 100 mg PO DAILY 03/16/21 03/16/21 History clonazePAM [Clonazepam] 0.5 mg PO BIDP PRN 03/17/21 03/17/21 History Allergies Allergy/AdvReac Type Severity Reaction Status Date / Time No Known Allergies Allergy Verified 02/17/21 10:23 Exam Vital signs and Labs for Last 24 Hours: Temp Pulse Resp BP Pulse Ox 95.7 F L
[2021-03-17 11:23] LABS: ABG Base Excess 13.3 mmol/L (-2.4-2.3); ABG HCO3 42.7 mmhg (22.0-26.0); ABG Oxygen Saturation 96 % (90-100); ABG PO2 83.4 mmhg (80-100); ABG TCO2 46.8 mmhg (23-27)
[2021-03-17 11:27] LABS: Oxygen 100 %; PEEP 8; Source rr; Tidal Volume 425; Vent Rate 26
[2021-03-17 11:28] LABS: ABG PCO2 135.5 mmhg (35.0-45.0); ABG PH 7.12 mmol/L (7.35-7.45)
[2021-03-17 11:34] LABS: Bacteria,Urine Trace /lpf; RBC,Urine Occasional #/hpf (0-3); Squamous Epithelial Cell,Urine Occasional #/hpf (0-5)
[2021-03-17 17:18] LABS: ABG Base Excess 8.5 mmol/L (-2.4-2.3); ABG HCO3 34.7 mmhg (22.0-26.0); ABG Oxygen Saturation 94 % (90-100); ABG PH 7.31 mmol/L (7.35-7.45); ABG PO2 65.6 mmhg (80-100); ABG TCO2 36.9 mmhg (23-27)
[2021-03-17 17:21] LABS: Oxygen 100 %; PEEP 8; Tidal Volume 425; Vent Rate 26
[2021-03-17 17:22] LABS: Allen's Test Patient Unable; Source Right Brachial
[2021-03-17 17:23] LABS: ABG PCO2 69.9 mmhg (35.0-45.0)
[2021-03-17 19:41] LABS: POC Glucose,Bedside 140 (70-110)
[2021-03-17 20:59] LABS: POC Glucose,Bedside 120 (70-110)
[2021-03-18] VITALS (37 sets, daily range): BP systolic 101–140; BP diastolic 60–88; PULSE 60–114; RESP 26–59; TEMP 36.6–37.3; O2SAT 82–99; BMI 60.1
--- NOTE | 2021-03-18 00:59 | PC.NURSE ---
She continues to be intubated and sedated. HOB elevated 30 degrees. Gag reflex intact. Vent settings are as follows: AC mode TV 425 Rate 26 PEEP 8 FiO2 100% F/c patent with yellow, cloudy urine. Scleral injection noted. NSR rhythm-Sinus tach on telemetry. CRE swab pending. Glucose was 120 @ HS. She is overbreathing the vent. Have attempted to increase sedation so that she does not overbreath the vent. She has been afebrile. Feet elevated. Generalized edema present with 2+ non-pitting edema to bilateral feet.
--- NOTE | 2021-03-18 01:03 | PC.NURSE ---
She continues to be intubated and sedated. HOB elevated 30 degrees. Gag reflex intact. Vent settings are as follows: AC mode TV 425 Rate 26 PEEP 8 FiO2 100% F/c patent with yellow, cloudy urine. Scleral injection noted. NSR rhythm-Sinus tach on telemetry. CRE swab pending. Glucose was 120 @ HS. She is overbreathing the vent. Have attempted to increase sedation. She has been afebrile. Feet elevated. Generalized edema present with 2+ non-pitting edema to bilateral feet.
[2021-03-18 05:04] LABS: POC Glucose,Bedside 135 (70-110)
[2021-03-18 05:18] LABS: Basophils # 0.1 K/mm3 (0-0.2); Basophils % 0.9 % (0.1-2.0); Eosinophils % 0.1 % (0.1-12.0); Hematocrit 40.1 % (37.0-47.0); Hemoglobin 12.4 g/dL (12.2-16.2); Lymphocytes # 0.5 K/mm3 (0.7-4.5); Lymphocytes % 3.3 % (10-50); Mean Corpuscular HGB Conc 30.9 g/dL (31.8-35.4); Mean Corpuscular Hemoglobin 30.6 pg (27.0-31.2); Mean Platelet Volume 8.3 fl (7.4-10.4); Monocytes # 0.4 K/mm3 (0.1-1.0); Monocytes % 2.6 % (1.7-9.3); Neutrophils # 12.8 K/mm3 (1.8-7.8); Platelet Count 207 K/mm3 (142-424); Red Blood Count 4.05 M/mm3 (4.20-5.40); Red Cell Distribution Width 14.1 % (11.5-17.5); White Blood Count 13.7 K/mm3 (4.8-10.8)
[2021-03-18 05:19] LABS: MANUAL DIFFERENTIAL MANUAL DIFFERENTIAL (MANUAL DIFF)
[2021-03-18 05:21] LABS: Chloride 97 mmol/L (98-107); Sodium 138 mmol/L (136-145)
[2021-03-18 05:22] LABS: Potassium 4.7 mmoL/L (3.5-5.1)
[2021-03-18 05:24] LABS: Alanine Aminotransferase 18 U/L (12-78); Albumin Level 3.4 g/dl (3.5-5.0); Alkaline Phosphatase 85 U/L (38-126); Aspartate Amino Transferase 35 U/L (14-36); Blood Urea Nitrogen 15 mg/dl (7-17); Creatinine Clearance Estimated 100 mL/min (50-200); Estimated Glomerular Filt Rate 107 ml/min (>60); GFR (African American) 130 ML/MIN (>60)
[2021-03-18 05:25] LABS: Albumin/Globulin Ratio 1.1 (1.1-1.8); Anion Gap 8.7 mEq/L (5-15); Calcium 7.9 mg/dl (8.4-10.2); Carbon Dioxide 37 mmol/L (22.0-30.0); Glucose 141 mg/dl (74-100); Total Protein,Serum 6.4 g/dl (6.3-8.2)
[2021-03-18 05:28] LABS: Bilirubin,Total < 0.1 mg/dl (0.2-1.3)
[2021-03-18 05:53] LABS: Lymphocytes % 7 % (10-50); Monocytes % 3 % (2-9); Neutrophils % 90 % (42-76); Platelet Estimate Normal; Total Cells Counted 100
[2021-03-18 05:54] LABS: Stomatocytes 1+
--- NOTE | 2021-03-18 06:00 | XR_ITS ---
PROCEDURE INFORMATION: Exam: XR Chest Exam date and time: 03/18/2021 6:00 AM Age: 46 years old Clinical indication: Device placement; Ett placement (vent status); Patient HX: Covid; Additional info: Intubated TECHNIQUE: Imaging protocol: XR of the chest. Views: 1 view. COMPARISON: CR XR CHEST PORTABLE 03/17/2021 10:03 AM FINDINGS: Tubes, catheters and devices: Endotracheal tube terminates approximately 3.6 cm above the rosa m. Enteric tube traverses the GE junction and passes off the inferior margin of the image. Lungs: Low lung volumes with slightly improved patchy bilateral airspace opacities. Pleural spaces: Small bilateral pleural effusions. No pneumothorax. Heart/Mediastinum: Stable cardiomediastinal contours. Bones/joints: Unremarkable. IMPRESSION: 1. Endotracheal tube terminates approximately 3.6 cm above the rosa m. 2. Low lung volumes with slightly improved patchy bilateral airspace opacities. 3. Small bilateral pleural effusions.
--- NOTE | 2021-03-18 07:20 | DIET.NUTRFU ---
Addendum entered by Coutrney Nugent 03/26/21 16:04: PO intakes 75%, weight down 6#, BG moderate wnl-130. Addendum entered by Courtney Nugent 03/24/21 17:22: Pt advanced to soft/ada diet and doing well, PO intakes 100%. Weight stable. BG moderate wnl-130. Addendum entered by Courtney Nugent 03/22/21 16:29: Pt extubated, to have swallow eval, will monitor to meet nutritional needs as indicated. Addendum entered by Courtney Nugent 03/19/21 15:47: Pt tolerating TFs well at 40ml/h. Goal rate changed to 40ml/h at this time dt pt being on high rate propofol providing significant additional kcal, will advance to previous goal rate as propofol is weaned. IVF dc'd and water flushes of 125ml q 4h initiated. BG moderate avg. 155. Weight down 6#. Original Note: Nutrition Consult received to initiate tube feeding. Pt is intubated and receiving IVF and propofol. Order entered for Pulmocare 1.5 at 20ml/h advancing to goal rate of 50ml/h continuous. Recommend minimal water flushes of 30-60ml q 4h. If IVF dc'd, recommend water flushes of 125ml q 4h to meet additional fluid needs not provided by formula. POC Glucose- 140, 120, 135. Pulmocare at a goal rate of 50mL/hr continuous provides 1800kcal, 75g protein, 127g cho, 112g fat, and 942ml free water (1700ml total fluids with flushes). Will continue to monitor TF tolerance and adjust as needed.
--- NOTE | 2021-03-18 08:10 | HMH.ACPN2 ---
Internal Medicine - PN: Subj *Date: 03/18/21 *Time: 19:02 Interval history: Patient resting in bed intubated with sedation running. Patient does not respond to verbal commands, but is overbreathing ventilator sedation is fentanyl and propofol. Will contact for sedation suggestions. Exam Vital signs and Labs for Last 24 Hours: Temp Pulse Resp BP Pulse Ox 98.6 F 100 H 39 H 138/88 95 03/18/21 07:49 03/18/21 08:00 03/18/21 07:49 03/18/21 07:49 03/18/21 07:49 Laboratory Results - last 24 hr 03/17/21 09:26: Urine Color Yellow, Urine Appearance Clear, Urine pH 5.5, Ur Specific [place] >= 1.030, Urine Protein Negative, Urine Glucose (UA) Negative, Urine Ketones Negative, Urine Blood Trace-i, Urine Nitrate Negative, Urine Bilirubin Negative, Urine Urobilinogen 0.2, Ur Leukocyte Esterase Negative, Urine RBC Occasional, Urine WBC None, Ur Squamous Epith Cells Occasional, Urine Bacteria Trace 03/17/21 10:55: Specimen Source rr, O2 % 100, ABG pH 7.12 L*, ABG pCO2 135.5 H, ABG pO2 83.4, ABG HCO3 42.7 H, ABG Total CO2 46.8 H, ABG O2 Saturation 96, ABG Base Excess 13.3 H, Vaughn Test n/a, Vent Rate 26, Tidal Volume 425, PEEP 8 03/17/21 16:57: Specimen Source Right brachial, O2 % 100, ABG pH 7.31 L, ABG pCO2 69.9 H, ABG pO2 65.6 L, ABG HCO3 34.7 H, ABG Total CO2 36.9 H, ABG O2 Saturation 94, ABG Base Excess 8.5 H, Vaughn Test Patient unable, Vent Rate 26, Tidal Volume 425, PEEP 8 03/17/21 17:08: POC Glucose 140 H 03/17/21 19:57: POC Glucose 120 H 03/18/21 04:40: WBC 13.7 H D, RBC 4.05 L, Hgb 12.4, Hct 40.1, MCV 99.0, MCH 30.6, MCHC 30.9 L, RDW 14.1, Plt Count 207, MPV 8.3, Neut % (Auto) 93.0 H, Lymph % (Auto) 3.3 L, Gonzales % (Auto) 2.6, Eos % (Auto) 0.1, Baso % (Auto) 0.9, Neut # (Auto) 12.8 H, Lymph # (Auto) 0.5 L, Gonzales # (Auto) 0.4, Eos # (Auto) 0.0, Baso # (Auto) 0.1, Total Counted 100, Neutrophils % (Manual) 90 H, Lymphocytes % (Manual) 7 L, Monocytes % (Manual) 3, Platelet Estimate Normal, Stomatocytes 1+ 03/18/21 04:40: Sodium 138, Potassium 4.7, Chloride 97 L, Carbon Dioxide 37 H, Anion Gap 8.7, BUN 15, Creatinine 0.60 D, Estimated Creat Clear 100, Estimated GFR 107, Est GFR ( Amer) 130 D, Glucose 141 H, Calcium 7.9 L, Total Bilirubin < 0.1 L, AST 35 D, ALT 18, Alkaline Phosphatase 85, Total Protein 6.4, Albumin 3.4 L, Globulin 3.0, Albumin/Globulin Ratio 1.1 03/18/21 04:56: POC Glucose 135 H I & O for Last 24 hours: Intake & Output 03/15/21 03/16/21 03/17/21 03/18/21 23:59 23:59 23:59 23:59 Intake Total 25.458 / 25.458 2186.208 / 2186.208 Output Total 850 / 850 1375 / 1600 615 / 615 Balance -850 / -850 -1349.542 / -7372.500 2667.208 / 1571.208 Weight 252 lb 253 lb 8.505 oz 352 lb 3 oz Microbiology Reports for the Last 24 Hours: Microbiology 03/17/21 10:10 Sputum - Endotracheal Tube Aspirate Gram Stain - Final 03/17/21 10:10 Sputum - Endotracheal Tube Aspirate Sputum Culture - Preliminary - Constitutional no acute distress, morbidly obese - *Routine Neck Exam Present: trachea midline. Absent: tracheal deviation - *Routine Respiratory Exam Present: rhonchi - *Routine Cardiovascular Exam Present: RRR - *Routine Abdominal Exam Present: soft, normoactive bowel sounds, obese. Absent: firm - *Routine Extremities Exam Present: edema. Absent: cyanosis - *Routine Skin Exam Present: intact, dry. Absent: cyanosis, erythema, jaundice - *Routine Neurological Exam Present: altered mental status - Routine Psychiatric Exam Present: unable to assess Assessment and Plan (1) COVID-19 virus infection Status: Acute Category: Medical Code(s): U07.1 - COVID-19 (2) Respiratory failure with hypoxia and hypercapnia Status: Acute Qualifiers: Chronicity: acute Qualified Code(s): J96.01 - Acute respiratory failure with hypoxia; J96.02 - Acute respiratory failure with hypercapnia Category: Medical Code(s): J96.91 - Respiratory failure, unspecified with hypoxia; J96.92 - Respirato
[2021-03-18 11:10] LABS: POC Glucose,Bedside 132 (70-110)
[2021-03-18 16:36] LABS: POC Glucose,Bedside 122 (70-110)
--- NOTE | 2021-03-18 18:24 | PC.NURSE ---
Pt remains intubated, vent settings as documented in intervention. Lungs with crackles, expiratory wheezes and diminished throughout. O2 has been 92% or greater all shift until around 1800. Pt was given a bath and O2 sats dropped to the upper 70's - low 80's after her bath. Respiratory and MD was notified. Pt was bagged until O2 was 100% and then placed back on the vent. O2 sat has since dropped to the mid 70's. TV was increased to 450 and abg after per Dr Martinez. He is currently at bedside assessing pt. Verbal order of 80mg lasix and portable chest xray per Dr Martinez as well. She has scattered bruising to bue, a large bruise to her abd and large bruise to her left buttock. Her castro is to bedside draining cloudy yellow urine. She has had approx 800 mls of urine out this shift. Sister and mother have both called and been updated on current poc.
--- NOTE | 2021-03-18 18:41 | XR_ITS ---
PROCEDURE INFORMATION: Exam: XR Chest Exam date and time: 03/18/2021 6:41 PM Age: 46 years old Clinical indication: Shortness of breath; Additional info: Covid, low o2 sat TECHNIQUE: Imaging protocol: XR of the chest. Views: 1 view. COMPARISON: CR XR CHEST PORTABLE 03/18/2021 5:36 AM FINDINGS: Tubes, catheters and devices: Endotracheal tube in good position above the rosa m. NG tube extending below the inferior confines of the film. Lungs: Mild interstitial edema. Pleural spaces: Bilateral pleural effusions right greater than left unchanged. Heart/Mediastinum: Cardiomegaly. Bones/joints: Unremarkable. IMPRESSION: Interstitial pneumonia. Bilateral pleural effusions. Cardiomegaly. Support lines and tubes as above. No significant change when compared to the previous study.
--- NOTE | 2021-03-18 19:32 | PC.NURSE ---
Dr. Stockton aware of need for central line placement.
[2021-03-18 19:36] LABS: ABG Base Excess 6.8 mmol/L (-2.4-2.3); ABG HCO3 37.3 mmhg (22.0-26.0); ABG Oxygen Saturation 89 % (90-100); ABG PO2 67.3 mmhg (80-100); ABG TCO2 41.5 mmhg (23-27)
--- NOTE | 2021-03-18 20:00 | XR_ITS ---
PROCEDURE INFORMATION: Exam: XR Chest Exam date and time: 03/18/2021 8:00 PM Age: 46 years old Clinical indication: Device placement; Other: Central line placement TECHNIQUE: Imaging protocol: XR of the chest. Views: 1 view. COMPARISON: CR XR CHEST PORTABLE 03/18/2021 7:04 PM FINDINGS: Tubes, catheters and devices: Endotracheal tube in good position above the rosa m. Right IJ central line tip in the cavoatrial region. NG tube extending below the inferior confines of the film. Lungs: Worsening aeration in the right lung concerning for worsening edema/pneumonia. Pleural spaces: Moderate-sized right pleural effusion. Heart/Mediastinum: Unremarkable. No cardiomegaly. Bones/joints: Unremarkable. IMPRESSION: 1. Worsening aeration in the right lung concerning for worsening edema/pneumonia. Moderate right effusion. 2. Support lines and tubes as above.
--- NOTE | 2021-03-18 20:01 | PC.NURSE ---
1923 -ICU staff called [employer] line to request to relay message to Dr Stockton for consult for central line placement. Dr Stockton currently in the OR working on a case, and was unavailable at this time. 1935 - Pt continues to decline, this RN (current [employer]) notified ER that Dr Stockton was currently in the OR working on a case, and that patient was declining and requested if he would come up to put in a Central Line. 1939 - Dr Barragan at bedside to place central line. Evelin, RN at bedside to assist . 1958 - Dr Barragan finished placement of Central Line, radiology notified for STAT chest xray. 2003 - Radiology at bedside. 2005 - Dr Barragan confirmed placement via xray, blood aspiration, and flushing with saline. States OK to use access. Primary RN to notify Dr. Martinez.
[2021-03-18 20:10] LABS: Allen's Test Patient Unable; Oxygen 100 %; PEEP 12; Source Right Radial; Tidal Volume 450; Vent Rate 26
[2021-03-18 20:11] LABS: ABG PCO2 137.9 mmhg (35.0-45.0); ABG PH 7.05 mmol/L (7.35-7.45)
[2021-03-18 21:09] LABS: POC Glucose,Bedside 142 (70-110)
[2021-03-18 21:41] LABS: ABG Base Excess 8.9 mmol/L (-2.4-2.3); ABG HCO3 39.7 mmhg (22.0-26.0); ABG Oxygen Saturation 86 % (90-100); ABG PO2 57.5 mmhg (80-100); ABG TCO2 44.4 mmhg (23-27)
[2021-03-18 21:44] LABS: Allen's Test Patient Unable; Oxygen 100 %; PEEP 12; Tidal Volume 450; Vent Rate 28
[2021-03-18 21:47] LABS: Source Left Radial
[2021-03-18 21:48] LABS: ABG PCO2 152.2 mmhg (35.0-45.0); ABG PH 7.03 mmol/L (7.35-7.45)
[2021-03-18 23:02] LABS: ABG Base Excess 3.7 mmol/L (-2.4-2.3); ABG HCO3 28.8 mmhg (22.0-26.0); ABG Oxygen Saturation 97 % (90-100); ABG PCO2 49.7 mmhg (35.0-45.0); ABG PH 7.38 mmol/L (7.35-7.45); ABG PO2 78.5 mmhg (80-100); ABG TCO2 30.3 mmhg (23-27)
[2021-03-18 23:03] LABS: Allen's Test Patient Unable; Oxygen 70 %; PEEP 10; Source Left Radial; Tidal Volume 480; Vent Rate 32
--- NOTE | 2021-03-18 23:19 | PC.NURSE ---
Pt was overbreathing the vent at shift change and her O2 sats were decreasing into the 70s. Respiratory had to ventilate her via ambu-bag. Previous shift had given to lasix, drawn ABG, and chest x-ray. 2014-Dr. Martinez called on critical ABG results. Discussed max on pressors. Emergency Central line placed r/t increased respirations, decreased O2, maxed on pressors in peripheral lines. Respirations shallow, labored. General consult placed. Dr. Barragan responded to consult and placed central line. 2034-Pt's mom (Kallei) updated. 2149-Dr. Martinez notified about critical ABG. Pt has been paralyzed with Rocuronim bromide 50mg IV by Dr. Barragan. Her O2 decreased to 79%, HR increased to 122, Respirations stayed at 50-60. Respiratory changed out of vent. Dr. Barragan reviewed her ABGs and stated that she needed to be sedated and suggested to contact [facility] to find out what else was available for sedation. 2156-[facility] consulted. They stated ketamine and phenobarbital. Pharmacy stated usual dose of phenobarbital IV push is 65mg IV q 6 hours PRN or a gtt. 2209-Dr. Martinez contacted and relayed information about ketamine and phenobarbital and updated on patient. Current respirations 32. He gave order to give 0200 dose of Lasix 80mg IV at this time along with Phenobarbital 65mg IV q 6 hours PRN RASS -4. He stated to give both phenobarbital and lasix now. 2307-Pt's mother (Kallie) updated.
[2021-03-19] VITALS (36 sets, daily range): BP systolic 90–145; BP diastolic 42–93; PULSE 60–109; RESP 24–34; TEMP 36.9–37.9; O2SAT 91–100; BMI 58.8
--- NOTE | 2021-03-19 01:00 | PC.NURSE ---
He continues to sit in the chair. He wore the bipap at night. Received PRN medication for nausea. No vomiting. He has been voiding per the urinal. Previous shift reported that he refused all meals. He requested watermelon tonight but it is not available.
--- NOTE | 2021-03-19 01:37 | P.PCN_ITS ---
[facility] Procedure Note Procedure Note:: Called to bedside by nursing staff for better IV access. Attending physician requesting central line placement. Anatomy scan completed with ultrasound, landmarks obtained. Patient prepped and draped in sterile fashion for right IJ central line placement. Ultrasound guidance used for venous access. Seldinger technique followed. Central line placed without difficulty. Stitched in place. Covered with sterile dressing. X-ray obtained following procedure showed good line placement with no pneumothorax. All ports draw and flush smoothly.
[2021-03-19 04:45] LABS: POC Glucose,Bedside 170 (70-110)
[2021-03-19 05:28] LABS: Basophils # 0.1 K/mm3 (0-0.2); Basophils % 0.3 % (0.1-2.0); Hematocrit 38.3 % (37.0-47.0); Hemoglobin 12.5 g/dL (12.2-16.2); Lymphocytes # 0.8 K/mm3 (0.7-4.5); Lymphocytes % 3.6 % (10-50); Mean Corpuscular HGB Conc 32.5 g/dL (31.8-35.4); Mean Corpuscular Hemoglobin 31.3 pg (27.0-31.2); Mean Corpuscular Volume 96.1 fl (81-99); Mean Platelet Volume 8.9 fl (7.4-10.4); Monocytes # 0.8 K/mm3 (0.1-1.0); Monocytes % 3.8 % (1.7-9.3); Neutrophils % 92.2 % (37.0-80.0); Platelet Count 229 K/mm3 (142-424); Red Blood Count 3.99 M/mm3 (4.20-5.40); Red Cell Distribution Width 14.5 % (11.5-17.5); White Blood Count 21.7 K/mm3 (4.8-10.8)
[2021-03-19 05:32] LABS: Chloride 97 mmol/L (98-107); Potassium 3.8 mmoL/L (3.5-5.1); Sodium 136 mmol/L (136-145)
[2021-03-19 05:34] LABS: MANUAL DIFFERENTIAL MANUAL DIFFERENTIAL (MANUAL DIFF)
[2021-03-19 05:35] LABS: Alanine Aminotransferase 33 U/L (12-78); Albumin Level 3.4 g/dl (3.5-5.0); Albumin/Globulin Ratio 1.1 (1.1-1.8); Alkaline Phosphatase 79 U/L (38-126); Anion Gap 15.8 mEq/L (5-15); Aspartate Amino Transferase 46 U/L (14-36); Bilirubin,Total 0.2 mg/dl (0.2-1.3); Blood Urea Nitrogen 23 mg/dl (7-17); Carbon Dioxide 27 mmol/L (22.0-30.0); Creatinine Clearance Estimated 60 mL/min (50-200); Estimated Glomerular Filt Rate 59 ml/min (>60); GFR (African American) 72 ML/MIN (>60); Total Protein,Serum 6.4 g/dl (6.3-8.2)
[2021-03-19 05:36] LABS: Calcium 8.3 mg/dl (8.4-10.2); Glucose 163 mg/dl (74-100)
[2021-03-19 05:55] LABS: Lymphocytes % 1 % (10-50); Monocytes % 1 % (2-9); Neutrophils % 98 % (42-76); Platelet Estimate Normal; Stomatocytes 1+; Total Cells Counted 100
--- NOTE | 2021-03-19 06:00 | XR_ITS ---
PROCEDURE INFORMATION: Exam: XR Chest Exam date and time: 03/19/2021 6:00 AM Age: 46 years old Clinical indication: Device placement; Ett placement (vent status); Patient HX: Covid; Additional info: Intubated TECHNIQUE: Imaging protocol: XR of the chest. Views: 1 view. COMPARISON: CR XR CHEST PORTABLE 03/18/2021 8:04 PM FINDINGS: Tubes, catheters and devices: Tip of ET tube lies 4.4 cm from the rosa m. Tip of NG tube lies below the GE junction, however tip is not included on the study. Right IJ line is stable. Lungs: Improving right, increasing left base airspace disease. Hypoventilatory changes of the lungs, with perihilar vascular crowding and a diffuse increase in pulmonary parenchymal density. Pleural spaces: Unremarkable. No pleural effusion. No pneumothorax. Heart/Mediastinum: Unremarkable. No cardiomegaly. Diaphragm: There is nonspecific elevation of the right hemidiaphragm. Bones/joints: Unremarkable. IMPRESSION: 1. Improved right, increasing left base airspace disease. 2. Support lines and tubes as above.
[2021-03-19 07:26] LABS: ABG Base Excess -0.9 mmol/L (-2.4-2.3); ABG HCO3 21.4 mmhg (22.0-26.0); ABG Oxygen Saturation 99 % (90-100); ABG PCO2 24.7 mmhg (35.0-45.0); ABG PO2 122.1 mmhg (80-100); ABG TCO2 22.2 mmhg (23-27)
[2021-03-19 07:36] LABS: Oxygen 70% %; Tidal Volume 480
[2021-03-19 07:37] LABS: Allen's Test Patient Unable; PEEP 10; Source Right Radial; Vent Rate 32
[2021-03-19 07:39] LABS: ABG PH 7.56 mmol/L (7.35-7.45)
[2021-03-19 08:05] LABS: Lactate Arterial 4.2 mmol/L (0.4-2.0)
--- NOTE | 2021-03-19 08:39 | PC.NURSE ---
RESP CARE NOTE: Pt VT decreased to 440ml, Rate decreased to 26 bpm, 60% FIO2, Peak Flow decreased to 60 lpm, and PEEP to 8 cmH2O per respiratory and order of Dr Martinez to make changes that are necessary to attempt normalization of ABG. Nebs changed to Q4 hours, since wheezing, secretions, and xray significantly better this AM. Lactic Acid has increased this AM, Sharmaine Patel RN notified, and repeat Lactic Acid scheduled for 11:30
--- NOTE | 2021-03-19 09:15 | CA_ITS ---
APPROVED REPORT EXAM: Comprehensive 2D, Doppler, and color-flow Echocardiogram [employer]: Colleen Boggs RVT Ht: 5 ft 4 in Wt: 345lbs BSA: 2.47 BP: 117/67 mmHg Indications: COVID,CHF,SOA,ASTHMA,GERD,OBESITY,SMOKER,EDEMA,HTN,HLD,PT INTUBATED TDS-PT INTUBATED,FLAT ON BACK BEST EXAM POSSIBLE 2D Dimensions LVOT 2.24 cm (M/F) 1.5-2.5 LA Volume 15.80 mL LA Volume Index 6.42 mL/m2 (M/F) 16-34 M-Mode Dimensions RVDd 2.93 cm (0.9-2.6) LA Diam 3.88 cm (1.9-4.0) LVDd 4.88 cm (3.5-5.7) Ao Diam 3.32 cm (2.0-3.7) LVDs 3.14 cm (3.5-5.7) IVSd 1.02 cm (0.6-1.1) PWd 0.86 cm (0.6-1.1) EF (Teich) 65.00% EPSs 2.67 cm FS 35.70% EDV (Teich) 111.70 mL ESV (Teich) 39.10 mL LV Diastology E Decel Time 150.00 (160-240 msec) E/A Ratio 0.7 MED E' 6.90 (< 7 cm/sec) E'/MED E' Ratio 12.83 (>14) LAT E' 10.40 (<10 cm/sec) E/LAT E' Ratio 8.51 (>14) Mitral Valve MV E Max Tonny. 88.00 (40-130 cm/s) MV A Velocity 129.00 (40-130 cm/s) E/A Ratio 0.69 MV Decel. Time 150.00 (160-240 ms) MV PHT 44.00 ms Tricuspid Valve TR P. Velocity 169.00 cm/s RAP Estimate 10.00 mmHg RVSP 21.40 mmHg Left Ventricle Left atrium is mildly enlarged, left ventricle is normal size, mild concentric left ventricular hypertrophy, visually estimated ejection fraction 55% with no regional wall motion abnormality, grade 1 diastolic dysfunction seen without tissue Doppler evidence of raise left atrial pressure. Right Ventricle Right atrium and right ventricle mildly enlarged with normal contractility. Aortic Valve Aortic valve is minimally thickened and fibrosed. There is no aortic stenosis or aortic insufficiency. Mitral Valve Mitral valve is grossly normal, there is trace mitral regurgitation. Tricuspid Valve Tricuspid valve grossly normal, there is trace tricuspid regurgitation, tricuspid regurgitation jet velocity is inadequate for calculation of the right ventricular systolic pressure. Pulmonic Valve Pulmonic valve is poorly visualized. Great Vessels Aortic root is normal size. Inferior vena cava is mildly dilated without significant inspiratory collapse. Pericardium No significant pericardial effusion noted. Conclusion 1. Technically difficult study because of the patient factors and poor acoustic windows. 2. Mild biatrial enlargement, normal left ventricular size, mild concentric left ventricular hypertrophy, visually estimated ejection fraction 55% with no regional wall motion abnormality, grade 1 diastolic dysfunction seen without tissue Doppler evidence of raise left atrial pressure. 3. Mildly enlarged right ventricle with normal contractility. 4. Trace mitral and tricuspid regurgitation. 5. No significant pericardial effusion noted. 6. Inferior vena cava is mildly dilated with normal inspiratory collapse. Electronically signed by : Mahendra Jim MD 03/19/2021 12:09:36
[2021-03-19 09:48] LABS: NT Pro Brain Natriuretic Pep. 977 pg/mL (0-125)
[2021-03-19 10:17] LABS: Troponin I < 0.01 ng/ml (0.00-0.034)
--- NOTE | 2021-03-19 10:47 | HMH.CNCARD ---
History of Present Illness Consult date: 03/19/21 Requesting physician: Jose Guadalupe Martinez Chief complaint: chf History of present illness: This is a 46 year old white female who presented to the emergency department with complaints of cough, shortness of breath, headache and pains in her feet and hips. The patient does have a history of congestive heart failure and had a 20 pound weight gain in the past 2 days. The patient was also complaining of swelling in her lower extremities. The patient was admitted to the hospital with Covid and respiratory failure. She is intubated and on mechanical ventilation. She appears to be in no distress this morning. Her vital signs are stable. [facility] History I have reviewed the patient's past medical history: Yes Medical History: Reports:: Anxiety, Asthma, Congestive Heart Failure, Depression, Diabetes Mellitus Type 2, Gastroesophageal Reflux Disease(GERD), Hyperlipidemia, Hypertension, Migraine Denies:: Internal Pacemaker, Seizures *Have you ever received a pneumonia vaccine?: No *Have you received a flu vaccine this season?: No Other Medical History: Reports: Hypothyroidism, Other Laterality Cases: Left: Arthroscopy Knee Other Surgeries: Yes: Appendectomy, CABG, Cholecystectomy, Colonoscopy, Diagnostic Lap, Hernia Repair, Hysterectomy-Total, Hysterectomy-Partial. No: Pacemaker Amputation: No Fractures: No - *Social History Smoking Status: Current every day smoker Tobacco Type: cigarettes # Packs/Day (cigarettes): 1 #Yrs smoked (if former smoker): 25 Alcohol Intake: never Alcohol Intake Frequency:: other Substance Use Type: denies use *Occupational Status:: other Housing: apartment Household Members: significant other *Travel in the last 8 weeks: None - Psychiatric History Pschychiatric History:: Reports:: Anxiety, Depression Family Hx:: Unable to obtain Meds Home Medications Medication Instructions Recorded Confirmed Type albuterol sulfate 90 mcg/actuation 1 puff INHALATION Q6H PRN g 10/22/20 03/16/21 History aerosol inhaler lisinopril 10 mg tablet 10 mg PO DAILY tab 10/22/20 03/16/21 History hydrocodone 5 mg-acetaminophen 325 1 tab PO BID PRN #60 tab 02/19/21 03/16/21 Rx mg tablet Albuterol Sulfate [Albuterol 0.63 mg INHALATION Q6H PRN 03/16/21 03/16/21 History Sulfate 0.63mg/3ml Neb] Gabapentin 800 mg PO TID 03/16/21 03/16/21 History Levothyroxine Sodium [Synthroid 25 mcg PO DAILY 03/16/21 03/16/21 History 25mcg (0.025mg) tablet] Omeprazole 40 mg PO DAILY 03/16/21 03/16/21 History SUMAtriptan succinate [Sumatriptan See Rx Instructions PO .COMPLEX 03/16/21 03/16/21 History Succinate] Torsemide 100 mg PO DAILY 03/16/21 03/16/21 History Vilazodone HCl [Viibryd] 40 mg PO DAILY 03/16/21 03/16/21 History Ziprasidone HCl 40 mg PO BID 03/16/21 03/16/21 History lamoTRIgine [Lamotrigine] 100 mg PO DAILY 03/16/21 03/16/21 History clonazePAM [Clonazepam] 0.5 mg PO BIDP PRN 03/17/21 03/17/21 History Allergies Allergy/AdvReac Type Severity Reaction Status Date / Time No Known Allergies Allergy Verified 02/17/21 10:23 Exam Vital signs and Labs for Last 24 Hours: Temp Pulse Resp BP Pulse Ox 99.5 F 105 H 26 H 145/89 H 95 03/19/21 09:59 03/19/21 10:00 03/19/21 10:00 03/19/21 09:59 03/19/21 10:00 Laboratory Results - last 24 hr 03/18/21 11:04: POC Glucose 132 H 03/18/21 16:28: POC Glucose 122 H 03/18/21 18:41: Specimen Source Right radial, O2 % 100, ABG pH 7.05 L*, ABG pCO2 137.9 H, ABG pO2 67.3 L, ABG HCO3 37.3 H, ABG Total CO2 41.5 H, ABG O2 Saturation 89 L, ABG Base Excess 6.8 H, Vaughn Test Patient unable, Vent Rate 26, Tidal Volume 450, PEEP 12 03/18/21 21:00: Specimen Source Left radial, O2 % 100, ABG pH 7.03 L*, ABG pCO2 152.2 H, ABG pO2 57.5 L, ABG HCO3 39.7 H, ABG Total CO2 44.4 H, ABG O2 Saturation 86 L*, ABG Base Excess 8.9 H, Vaughn Test Patient unable, Vent Rate 28, Tidal Volume 450, PEEP 12 03/18/21 21:02: POC Glucose 142 H 03/18/21 23:01: Spe
[2021-03-19 11:14] LABS: POC Glucose,Bedside 152 (70-110)
--- NOTE | 2021-03-19 11:28 | HMH.ACPN2 ---
Internal Medicine - PN: Subj *Date: 03/19/21 *Time: 08:45 Interval history: on vent improved abg this am Exam Vital signs and Labs for Last 24 Hours: Temp Pulse Resp BP Pulse Ox 99.3 F 99 H 26 H 108/59 L 95 03/19/21 11:00 03/19/21 11:00 03/19/21 11:00 03/19/21 11:00 03/19/21 11:00 Laboratory Results - last 24 hr 03/18/21 16:28: POC Glucose 122 H 03/18/21 18:41: Specimen Source Right radial, O2 % 100, ABG pH 7.05 L*, ABG pCO2 137.9 H, ABG pO2 67.3 L, ABG HCO3 37.3 H, ABG Total CO2 41.5 H, ABG O2 Saturation 89 L, ABG Base Excess 6.8 H, Vaughn Test Patient unable, Vent Rate 26, Tidal Volume 450, PEEP 12 03/18/21 21:00: Specimen Source Left radial, O2 % 100, ABG pH 7.03 L*, ABG pCO2 152.2 H, ABG pO2 57.5 L, ABG HCO3 39.7 H, ABG Total CO2 44.4 H, ABG O2 Saturation 86 L*, ABG Base Excess 8.9 H, Vaughn Test Patient unable, Vent Rate 28, Tidal Volume 450, PEEP 12 03/18/21 21:02: POC Glucose 142 H 03/18/21 23:01: Specimen Source Left radial, O2 % 70, ABG pH 7.38, ABG pCO2 49.7 H, ABG pO2 78.5 L, ABG HCO3 28.8 H, ABG Total CO2 30.3 H, ABG O2 Saturation 97, ABG Base Excess 3.7 H, Vaughn Test Patient unable, Vent Rate 32, Tidal Volume 480, PEEP 10 03/19/21 04:34: POC Glucose 170 H 03/19/21 04:40: WBC 21.7 H* D, RBC 3.99 L, Hgb 12.5, Hct 38.3, MCV 96.1, MCH 31.3 H, MCHC 32.5, RDW 14.5, Plt Count 229, MPV 8.9, Neut % (Auto) 92.2 H, Lymph % (Auto) 3.6 L, [place] % (Auto) 3.8, Eos % (Auto) 0.0 L, Baso % (Auto) 0.3, Neut # (Auto) 20.0 H, Lymph # (Auto) 0.8, [place] # (Auto) 0.8, Eos # (Auto) 0.0, Baso # (Auto) 0.1, Total Counted 100, Neutrophils % (Manual) 98 H, Lymphocytes % (Manual) 1 L, Monocytes % (Manual) 1 L, Platelet Estimate Normal, Stomatocytes 1+ 03/19/21 04:40: Sodium 136, Potassium 3.8, Chloride 97 L, Carbon Dioxide 27, Anion Gap 15.8 H, BUN 23 H D, Creatinine 1.00 D, Estimated Creat Clear 60, Estimated GFR 59, Est GFR ( Amer) 72 D, Glucose 163 H, Calcium 8.3 L, Total Bilirubin 0.2, AST 46 H D, ALT 33 D, Alkaline Phosphatase 79, Total Protein 6.4, Albumin 3.4 L, Globulin 3.0, Albumin/Globulin Ratio 1.1 03/19/21 04:40: NT-Pro-B Natriuret Pep 977 H 03/19/21 06:00: Specimen Source Right radial, O2 % 70%, ABG pH 7.56 H*, ABG pCO2 24.7 L, ABG pO2 122.1 H, ABG HCO3 21.4 L, ABG Total CO2 22.2 L, ABG O2 Saturation 99, ABG Base Excess -0.9, Vaughn Test Patient unable, Vent Rate 32, Tidal Volume 480, PEEP 10 03/19/21 07:20: ABG Lactate 4.2 H 03/19/21 09:49: Troponin I < 0.01 03/19/21 11:06: POC Glucose 152 H I & O for Last 24 hours: Intake & Output 03/16/21 03/17/21 03/18/21 03/19/21 11:59 11:59 11:59 11:59 Intake Total 3367.166 / 3577.166 4237.083 / 4237.083 Output Total 1350 / 1350 1740 / 1840 2590 / 2590 Balance -1350 / -1350 1627.166 / 1436.130 2775.083 / 1647.083 Weight 252 lb 10.396 oz 352 lb 3 oz 345 lb Microbiology Reports for the Last 24 Hours: Microbiology 03/17/21 10:10 Sputum - Endotracheal Tube Aspirate Gram Stain - Final 03/17/21 10:10 Sputum - Endotracheal Tube Aspirate Sputum Culture - Preliminary 03/17/21 22:50 Anus CRE Surveillance Culture - Final Negative - Constitutional no acute distress, obese - *Routine HEENT Exam Head: Present: normocephalic ENT: Present: mucous membranes moist - *Routine Neck Exam Present: supple. Absent: lymphadenopathy - *Routine Respiratory Exam Present: patient mechanically ventilated - *Routine Cardiovascular Exam Present: RRR - *Routine Abdominal Exam Present: soft, normoactive bowel sounds. Absent: tenderness - *Routine Extremities Exam Absent: cyanosis, clubbing, edema - *Routine Skin Exam Present: warm. Absent: rash - *Routine Neurological Exam sedated Assessment and Plan (1) Acute on chronic diastolic heart failure Status: Acute Category: Medical Code(s): I50.33 - Acute on chronic diastolic (congestive) heart failure (2) COVID-19 virus infection Status: Acute Category: Medical Code(s
[2021-03-19 17:21] LABS: POC Glucose,Bedside 185 (70-110)
--- NOTE | 2021-03-19 18:19 | PC.NURSE ---
Pt remains ventilated and sedated, vent settings per intervention. Lungs have rhonchi, wheezes and are diminished throughout. Pulmocare is running at goal rate of 40 mls/hr. She is tolerating well as residuals have been 0-5 mls at checks. Her castro is to bedside draining cloudy yellow urine, approx 1785 mls out thus far. She's been NSR on telemetry. Scattered bruising to bue, abd and a large bruise to her left buttock. Heels have been floated, she has been turned and repositioned and oral care provided. Bed is locked and in the lowest position. Mother has called and has been updated on current plan of care and pt's condition.
[2021-03-19 20:00] LABS: POC Glucose,Bedside 121 (70-110)
--- NOTE | 2021-03-19 23:18 | PC.NURSE ---
Fentanyl titrated down to 165 mcg/hr. Propofol titrated down to 45 mcg/kg/min. Versed remains @ 0.1 mg/kg/hr.
[2021-03-20] VITALS (32 sets, daily range): BP systolic 97–150; BP diastolic 52–94; PULSE 65–132; RESP 24–33; TEMP 36.5–37.5; O2SAT 88–97; BMI 60.2
--- NOTE | 2021-03-20 04:07 | PC.NURSE ---
Versed titrated from 0.1 to 0.05 mg/kg/hr. Fentanyl titrated from 165 mcg/hr to 155 mcg/hr.
[2021-03-20 05:57] LABS: Basophils % 0.3 % (0.1-2.0); Eosinophils # 0.1 K/mm3 (0.0-0.4); Eosinophils % 0.5 % (0.1-12.0); Hematocrit 36.3 % (37.0-47.0); Hemoglobin 11.9 g/dL (12.2-16.2); Lymphocytes # 0.5 K/mm3 (0.7-4.5); Lymphocytes % 3.8 % (10-50); Mean Corpuscular HGB Conc 32.7 g/dL (31.8-35.4); Mean Corpuscular Hemoglobin 30.9 pg (27.0-31.2); Mean Corpuscular Volume 94.4 fl (81-99); Mean Platelet Volume 8.4 fl (7.4-10.4); Monocytes # 0.5 K/mm3 (0.1-1.0); Monocytes % 4.1 % (1.7-9.3); Neutrophils % 91.3 % (37.0-80.0); Platelet Count 182 K/mm3 (142-424); Red Blood Count 3.84 M/mm3 (4.20-5.40); Red Cell Distribution Width 14.6 % (11.5-17.5); White Blood Count 12.1 K/mm3 (4.8-10.8)
--- NOTE | 2021-03-20 06:00 | XR_ITS ---
PROCEDURE INFORMATION: Exam: XR Chest Exam date and time: 03/20/2021 6:00 AM Age: 46 years old Clinical indication: Device placement; Ett placement (vent status); Additional info: Intubated covid TECHNIQUE: Imaging protocol: XR of the chest. Views: 1 view. COMPARISON: CR XR CHEST PORTABLE 03/19/2021 5:57 AM FINDINGS: Tubes, catheters and devices: Right IJ approach central venous catheter with tip overlying the cavoatrial junction. Endotracheal tube noted with the tip above the rosa m. The endogastric tube is noted with distal portion overlying the stomach. Lungs: Persistent bilateral airspace opacities along for differences in patient positioning. Pleural spaces: Unremarkable. No pleural effusion. No pneumothorax. Heart/Mediastinum: Unremarkable. No cardiomegaly. Bones/joints: Unremarkable. IMPRESSION: 1. No significant interval change. 2. Support catheters noted, as above. No pneumothorax.
[2021-03-20 06:01] LABS: POC Glucose,Bedside 133 (70-110)
[2021-03-20 06:04] LABS: MANUAL DIFFERENTIAL MANUAL DIFFERENTIAL (MANUAL DIFF)
[2021-03-20 06:17] LABS: Chloride 99 mmol/L (98-107); Potassium 4.2 mmoL/L (3.5-5.1); Sodium 137 mmol/L (136-145)
[2021-03-20 06:20] LABS: Alanine Aminotransferase 30 U/L (12-78); Albumin Level 3.2 g/dl (3.5-5.0); Alkaline Phosphatase 59 U/L (38-126); Anion Gap 9.2 mEq/L (5-15); Aspartate Amino Transferase 113 U/L (14-36); Bilirubin,Total 0.3 mg/dl (0.2-1.3); Blood Urea Nitrogen 35 mg/dl (7-17); Calcium 7.8 mg/dl (8.4-10.2); Carbon Dioxide 33 mmol/L (22.0-30.0); Creatinine Clearance Estimated 100 mL/min (50-200); Estimated Glomerular Filt Rate 107 ml/min (>60); GFR (African American) 130 ML/MIN (>60); Globulin 3.1 g/dL (1.3-3.2); Glucose 126 mg/dl (74-100); Total Protein,Serum 6.3 g/dl (6.3-8.2)
--- NOTE | 2021-03-20 06:24 | PC.NURSE ---
Sedation decreased for breathing trial this am. Fentanyl currently infusing @ 25 mcg/hr. Propofol and versed on standby.
[2021-03-20 06:45] LABS: Lymphocytes % 7 % (10-50); Neutrophils % 90 % (42-76); Platelet Estimate Normal; RBC Morphology Normal; Total Cells Counted 100
--- NOTE | 2021-03-20 07:18 | PC.NURSE ---
RESP CARE NOTE: Pt switched to SPONT breathing trial 05/10 FIO2 60%.
--- NOTE | 2021-03-20 07:19 | PC.NURSE ---
SBT started at 0700.
[2021-03-20 08:27] LABS: ABG Base Excess 2.5 mmol/L (-2.4-2.3); ABG HCO3 27.9 mmhg (22.0-26.0); ABG Oxygen Saturation 96 % (90-100); ABG PCO2 49.8 mmhg (35.0-45.0); ABG PH 7.37 mmol/L (7.35-7.45); ABG PO2 87.9 mmhg (80-100); ABG TCO2 29.4 mmhg (23-27)
[2021-03-20 08:29] LABS: Oxygen 60 %
[2021-03-20 08:30] LABS: Allen's Test Patient Unable; PEEP 12; Pressure Support 6; Source Right Radial; Tidal Volume spont
--- NOTE | 2021-03-20 08:45 | PC.NURSE ---
RESP CARE NOTE: Pressure support increased to [id number] and Peep decreased to 5cmH20. FIO2 decreased to 50% FIO2. ABG at 1000.
--- NOTE | 2021-03-20 09:20 | HMH.ACPN2 ---
Internal Medicine - PN: Subj *Date: 03/20/21 *Time: 08:40 Interval history: weaning vent Exam Vital signs and Labs for Last 24 Hours: Temp Pulse Resp BP Pulse Ox 99.1 F 120 H 24 150/94 H 89 L 03/20/21 09:00 03/20/21 09:00 03/20/21 09:00 03/20/21 09:00 03/20/21 09:00 Laboratory Results - last 24 hr 03/19/21 04:40: NT-Pro-B Natriuret Pep 977 H 03/19/21 09:49: Troponin I < 0.01 03/19/21 11:06: POC Glucose 152 H 03/19/21 11:45: Lactate Cancelled 03/19/21 16:58: POC Glucose 185 H 03/19/21 19:52: POC Glucose 121 H 03/20/21 05:46: WBC 12.1 H D, RBC 3.84 L, Hgb 11.9 L, Hct 36.3 L, MCV 94.4, MCH 30.9, MCHC 32.7, RDW 14.6, Plt Count 182, MPV 8.4, Neut % (Auto) 91.3 H, Lymph % (Auto) 3.8 L, [place] % (Auto) 4.1, Eos % (Auto) 0.5, Baso % (Auto) 0.3, Neut # (Auto) 11.0 H, Lymph # (Auto) 0.5 L, [place] # (Auto) 0.5, Eos # (Auto) 0.1, Baso # (Auto) 0.0, Total Counted 100, Neutrophils % (Manual) 90 H, Band Neutrophils % 3.0, Lymphocytes % (Manual) 7 L, Platelet Estimate Normal, RBC Morphology Normal 03/20/21 05:46: Sodium 137, Potassium 4.2, Chloride 99, Carbon Dioxide 33 H, Anion Gap 9.2, BUN 35 H D, Creatinine 0.60 D, Estimated Creat Clear 100, Estimated GFR 107, Est GFR ( Amer) 130 D, Glucose 126 H, Calcium 7.8 L, Total Bilirubin 0.3, AST 113 H D, ALT 30, Alkaline Phosphatase 59, Total Protein 6.3, Albumin 3.2 L, Globulin 3.1, Albumin/Globulin Ratio 1.0 L 03/20/21 05:48: POC Glucose 133 H 03/20/21 06:00: Specimen Source Right radial, O2 % 60, ABG pH 7.37, ABG pCO2 49.8 H, ABG pO2 87.9, ABG HCO3 27.9 H, ABG Total CO2 29.4 H, ABG O2 Saturation 96, ABG Base Excess 2.5 H, Vaughn Test Patient unable, Tidal Volume spont, PEEP 12 I & O for Last 24 hours: Intake & Output 03/17/21 03/18/21 03/19/21 03/20/21 11:59 11:59 11:59 11:59 Intake Total 3367.166 / 3577.166 4547.083 / 4776.083 2453 / 2453 Output Total 1350 / 1350 1740 / 1840 2990 / 2990 4575 / 4575 Balance -1350 / -1350 1627.166 / 2471.414 7894.083 / 1786.083 -2122 / -2122 Weight 252 lb 10.396 oz 352 lb 3 oz 345 lb 353 lb 4.8 oz Microbiology Reports for the Last 24 Hours: Microbiology 03/17/21 10:10 Sputum - Endotracheal Tube Aspirate Gram Stain - Final 03/17/21 10:10 Sputum - Endotracheal Tube Aspirate Sputum Culture - Final 03/17/21 22:50 Anus CRE Surveillance Culture - Final Negative - Constitutional no acute distress - *Routine HEENT Exam Head: Present: normocephalic Eye: Present: PERRL ENT: Present: mucous membranes moist - *Routine Neck Exam Present: supple. Absent: lymphadenopathy - *Routine Respiratory Exam Present: patient mechanically ventilated - *Routine Cardiovascular Exam Present: RRR - *Routine Abdominal Exam Present: soft, normoactive bowel sounds. Absent: tenderness - *Routine Extremities Exam Present: normal capillary refill. Absent: cyanosis, clubbing, edema - *Routine Skin Exam Present: warm. Absent: rash - *Routine Neurological Exam Present: alert, oriented X3 Assessment and Plan (1) Acute on chronic diastolic heart failure Status: Acute Category: Medical Code(s): I50.33 - Acute on chronic diastolic (congestive) heart failure (2) COVID-19 virus infection Status: Acute Category: Medical Code(s): U07.1 - COVID-19 (3) Respiratory failure with hypoxia and hypercapnia Status: Acute Qualifiers: Chronicity: acute Qualified Code(s): J96.01 - Acute respiratory failure with hypoxia; J96.02 - Acute respiratory failure with hypercapnia Category: Medical Code(s): J96.91 - Respiratory failure, unspecified with hypoxia; J96.92 - Respiratory failure, unspecified with hypercapnia (4) COPD (chronic obstructive pulmonary disease) Status: Chronic Qualifiers: COPD type: emphysema Emphysema type: unspecified Qualified Code(s): J43.9 - Emphysema, unspecified Category: Medical Code(s): J44.9 - Chronic obstructive pulmonary disease, unspecified
--- NOTE | 2021-03-20 12:21 | PC.NURSE ---
RESP CARE NOTE: Pt desat due to repositioning to right side, Peep increased back to 10 cmH2O until next repositioning.
--- NOTE | 2021-03-20 16:31 | PC.NURSE ---
Pt was on SBT from 0700 to about 0910, pt placed back on rate d/t fighting vent, and being tachycardic (130's), and hypertensive (diastolic > 100) despite use of PRN's. She remains vented AC 440, rate 26, Peep 10, FIO2 60%. Lungs diminished in bilat lower lobes. Suctioning and oral care performed Q2h & prn. Secretions noted to be thick, lavaged by RT this AM. HR regular, sinus on tely w/ rate currently 80's. BP better controlled since being put back on rate and sedated. Abdomen soft, w/ active BS. OGT w/ pulmocare TF going @ goal rate. GRV = 0 at all checks this shift. Kumar cath to drain @ bedside w/ cloudy yellow urine. No BM this shift. Skin intact. Scattered bruising noted. Pt is a Q2h turn, repositioning. Heels floating. BUE elevated w/ pillows. Spoke to pt's mother this AM, updated on plan of care @ this time.
[2021-03-21] VITALS (32 sets, daily range): BP systolic 94–147; BP diastolic 47–87; PULSE 68–106; RESP 15–28; TEMP 36.8–37.2; O2SAT 92–98; BMI 59.8
--- NOTE | 2021-03-21 00:53 | PC.NURSE ---
Bed bath given with bed linens changed. Pt tolerated well. Oral care and suctioning provided. Mother of pt called and was updated on pt status. VSS. Fentanyl currently infusing @ 125 mcg/hr. Propofol @ 40 mcg/kg/min. Versed @ 0.1 mg/kg/hr.
[2021-03-21 05:55] LABS: Basophils % 0.2 % (0.1-2.0); Eosinophils % 0.3 % (0.1-12.0); Hematocrit 36.6 % (37.0-47.0); Hemoglobin 11.7 g/dL (12.2-16.2); Lymphocytes # 0.7 K/mm3 (0.7-4.5); Lymphocytes % 6.8 % (10-50); Mean Corpuscular Hemoglobin 31.1 pg (27.0-31.2); Mean Corpuscular Volume 97.2 fl (81-99); Mean Platelet Volume 8.6 fl (7.4-10.4); Monocytes # 0.4 K/mm3 (0.1-1.0); Neutrophils # 8.8 K/mm3 (1.8-7.8); Neutrophils % 88.7 % (37.0-80.0); Platelet Count 185 K/mm3 (142-424); Red Blood Count 3.76 M/mm3 (4.20-5.40); Red Cell Distribution Width 14.7 % (11.5-17.5); White Blood Count 9.9 K/mm3 (4.8-10.8)
[2021-03-21 05:56] LABS: MANUAL DIFFERENTIAL MANUAL DIFFERENTIAL (MANUAL DIFF)
--- NOTE | 2021-03-21 06:00 | XR_ITS ---
PROCEDURE INFORMATION: Exam: XR Chest Exam date and time: 03/21/2021 6:00 AM Age: 46 years old Clinical indication: Device placement; Ett placement (vent status); Additional info: Intubated TECHNIQUE: Imaging protocol: XR of the chest. Views: 1 view. COMPARISON: CR XR CHEST PORTABLE 03/20/2021 5:15 AM FINDINGS: Tubes, catheters and devices: Endotracheal tube tip is 5 cm from the rosa m. Right IJ catheter in stable position in the lower SVC. Enteric tube extends into the left upper quadrant but the tip is not well seen. Lungs: Limited depth of inspiration. Mild bilateral airspace opacities, with slight interval improvement compared to the prior exam. Pleural spaces: No pleural effusion. No pneumothorax. Heart/Mediastinum: No acute findings or cardiomegaly. Bones/joints: No acute findings. Soft tissues: There are small foci of air in the adjacent mesenteric fat, consistent with a contained perforation. IMPRESSION: 1. Slight interval improvement in bilateral airspace disease compared to the prior exam. 2. Lines tubes and catheters are unchanged.
[2021-03-21 06:02] LABS: Alanine Aminotransferase 36 U/L (12-78); Albumin Level 3.1 g/dl (3.5-5.0); Albumin/Globulin Ratio 0.9 (1.1-1.8); Alkaline Phosphatase 37 U/L (38-126); Anion Gap 6.4 mEq/L (5-15); Aspartate Amino Transferase 105 U/L (14-36); Bilirubin,Total 0.4 mg/dl (0.2-1.3); Blood Urea Nitrogen 40 mg/dl (7-17); Calcium 7.6 mg/dl (8.4-10.2); Carbon Dioxide 35 mmol/L (22.0-30.0); Chloride 100 mmol/L (98-107); Creatinine Clearance Estimated 120 mL/min (50-200); Estimated Glomerular Filt Rate 132 ml/min (>60); GFR (African American) 160 ML/MIN (>60); Globulin 3.3 g/dL (1.3-3.2); Glucose 128 mg/dl (74-100); Sodium 137 mmol/L (136-145); Total Protein,Serum 6.4 g/dl (6.3-8.2)
[2021-03-21 06:07] LABS: Lymphocytes % 11 % (10-50); Neutrophils % 82 % (42-76); Platelet Estimate Normal; RBC Morphology Normal; Total Cells Counted 100
[2021-03-21 06:11] LABS: Potassium 4.4 mmoL/L (3.5-5.1)
[2021-03-21 07:03] LABS: ABG Base Excess 4.8 mmol/L (-2.4-2.3); ABG HCO3 27.5 mmhg (22.0-26.0); ABG Oxygen Saturation 94 % (90-100); ABG PCO2 33.9 mmhg (35.0-45.0); ABG PH 7.53 mmol/L (7.35-7.45); ABG TCO2 28.5 mmhg (23-27)
[2021-03-21 07:07] LABS: Allen's Test Patient Unable; Oxygen 60 %; PEEP 10; Source Right Radial; Tidal Volume 440; Vent Rate 26
--- NOTE | 2021-03-21 09:42 | HMH.ACPN2 ---
Internal Medicine - PN: Subj *Date: 03/22/21 *Time: 05:24 Interval history: pt with stable vital signs but still intubated on vent - will attempt wean today - Exam Vital signs and Labs for Last 24 Hours: Temp Pulse Resp BP Pulse Ox 98.4 F 81 26 H 126/79 95 03/21/21 08:54 03/21/21 08:54 03/21/21 08:54 03/21/21 08:54 03/21/21 08:54 Laboratory Results - last 24 hr 03/21/21 05:40: WBC 9.9, RBC 3.76 L, Hgb 11.7 L, Hct 36.6 L, MCV 97.2, MCH 31.1, MCHC 32.0, RDW 14.7, Plt Count 185, MPV 8.6, Neut % (Auto) 88.7 H, Lymph % (Auto) 6.8 L, [place] % (Auto) 4.0, Eos % (Auto) 0.3, Baso % (Auto) 0.2, Neut # (Auto) 8.8 H, Lymph # (Auto) 0.7, [place] # (Auto) 0.4, Eos # (Auto) 0.0, Baso # (Auto) 0.0, Total Counted 100, Neutrophils % (Manual) 82 H, Band Neutrophils % 7.0, Lymphocytes % (Manual) 11, Platelet Estimate Normal, RBC Morphology Normal 03/21/21 05:40: Sodium 137, Potassium 4.4, Chloride 100, Carbon Dioxide 35 H, Anion Gap 6.4, BUN 40 H, Creatinine 0.50 L, Estimated Creat Clear 120, Estimated GFR 132, Est GFR ( Amer) 160 D, Glucose 128 H, Calcium 7.6 L, Total Bilirubin 0.4, AST 105 H, ALT 36, Alkaline Phosphatase 37 L, Total Protein 6.4, Albumin 3.1 L, Globulin 3.3 H, Albumin/Globulin Ratio 0.9 L 03/21/21 06:00: Specimen Source Right radial, O2 % 60, ABG pH 7.53 H, ABG pCO2 33.9 L, ABG pO2 69.0 L, ABG HCO3 27.5 H, ABG Total CO2 28.5 H, ABG O2 Saturation 94, ABG Base Excess 4.8 H, Vaughn Test Patient unable, Vent Rate 26, Tidal Volume 440, PEEP 10 I & O for Last 24 hours: Intake & Output 03/18/21 03/19/21 03/20/21 03/21/21 11:59 11:59 11:59 11:59 Intake Total 3367.166 / 3577.166 4547.083 / 4776.083 2553 / 2553 3501.333 / 3501.333 Output Total 1740 / 1840 2990 / 2990 5675 / 5675 3975 / 3975 Balance 1627.166 / 3885.877 9086.083 / 1786.083 -3122 / -3122 -473.667 / -473.667 Weight 352 lb 3 oz 345 lb 353 lb 4.8 oz 350 lb 8 oz Microbiology Reports for the Last 24 Hours: Microbiology 03/17/21 10:10 Sputum - Endotracheal Tube Aspirate Gram Stain - Final 03/17/21 10:10 Sputum - Endotracheal Tube Aspirate Sputum Culture - Final - Constitutional Comments: on vent - *Routine HEENT Exam Head: Present: normocephalic Eye: Present: EOMI, PERRL ENT: Present: mucous membranes dry - *Routine Neck Exam Absent: JVD - *Routine Respiratory Exam Present: patient mechanically ventilated - *Routine Cardiovascular Exam Present: RRR - *Routine Abdominal Exam Present: soft - *Routine Extremities Exam Present: edema - *Routine Skin Exam Present: intact - *Routine Neurological Exam sedated w/o posturing - Routine Psychiatric Exam Present: unable to assess Assessment and Plan (1) Acute on chronic diastolic heart failure Status: Acute Category: Medical Code(s): I50.33 - Acute on chronic diastolic (congestive) heart failure (2) COVID-19 virus infection Status: Acute Category: Medical Code(s): U07.1 - COVID-19 (3) Respiratory failure with hypoxia and hypercapnia Status: Acute Qualifiers: Chronicity: acute Qualified Code(s): J96.01 - Acute respiratory failure with hypoxia; J96.02 - Acute respiratory failure with hypercapnia Category: Medical Code(s): J96.91 - Respiratory failure, unspecified with hypoxia; J96.92 - Respiratory failure, unspecified with hypercapnia (4) COPD (chronic obstructive pulmonary disease) Status: Chronic Qualifiers: COPD type: emphysema Emphysema type: unspecified Qualified Code(s): J43.9 - Emphysema, unspecified Category: Medical Code(s): J44.9 - Chronic obstructive pulmonary disease, unspecified (5) HLD (hyperlipidemia) Status: Chronic Qualifiers: Hyperlipidemia type: mixed hyperlipidemia Qualified Code(s): E78.2 - Mixed hyperlipidemia Category: Medical Code(s): E78.5 - Hyperlipidemia, unspecified (6) HTN (hypertension) Status: Chronic Qualifiers: Hypertension type: essential hypertension C
--- NOTE | 2021-03-21 09:45 | PC.NURSE ---
Addendum entered by Sandrine Grover RN 03/21/21 10:25: TF placed on hold @ this time as well d/t SBT Original Note: Sedation off @ 0945, Fentanyl still infusing @ 30 mcg/hr
--- NOTE | 2021-03-21 10:01 | PC.NURSE ---
Addendum entered by Sandrine Grover RN 03/21/21 14:52: ABG obtained by RT prior to placing pt back on rate. Pt placed back on ACMV 440, PEEP 10, Rate 26, FIO2 60% @ 1445. Addendum entered by Sandrine Grover RN 03/21/21 11:24: PRN fentanyl IVP admin x2 thus far per MAR for increased agitation. Pt responds well to them and is able to rest comfortably while still on SBT. She does open her eyes spontaneously. Is able to answer questions appropriately by nodding her head. She has been suctioned twice using in-line, large amount of thick creamy/yellow secretions noted both times. Addendum entered by Sandrine Grover RN 03/21/21 10:19: PRN ativan given for agitation. She is breathing about 20/min, insp vol around 450. She does not open her eyes, only moving her extremities and tossing head back and forth occasionally. Original Note: 1000 - SBT started @ this time, pressure support 15 Peep 10 FIO2 60%. Pt tolerating well @ this time, SPO2 95% VSS.
--- NOTE | 2021-03-21 13:26 | HMH.ACPN ---
Internal Medicine - PN: Subj *Date: 03/21/21 *Time: 13:26 Exam Vital signs and Labs for Last 24 Hours: Temp Pulse Resp BP Pulse Ox 98.4 F 99 H 17 127/78 96 03/21/21 12:00 03/21/21 13:00 03/21/21 13:00 03/21/21 13:00 03/21/21 13:00 Laboratory Results - last 24 hr 03/21/21 05:40: WBC 9.9, RBC 3.76 L, Hgb 11.7 L, Hct 36.6 L, MCV 97.2, MCH 31.1, MCHC 32.0, RDW 14.7, Plt Count 185, MPV 8.6, Neut % (Auto) 88.7 H, Lymph % (Auto) 6.8 L, [place] % (Auto) 4.0, Eos % (Auto) 0.3, Baso % (Auto) 0.2, Neut # (Auto) 8.8 H, Lymph # (Auto) 0.7, [place] # (Auto) 0.4, Eos # (Auto) 0.0, Baso # (Auto) 0.0, Total Counted 100, Neutrophils % (Manual) 82 H, Band Neutrophils % 7.0, Lymphocytes % (Manual) 11, Platelet Estimate Normal, RBC Morphology Normal 03/21/21 05:40: Sodium 137, Potassium 4.4, Chloride 100, Carbon Dioxide 35 H, Anion Gap 6.4, BUN 40 H, Creatinine 0.50 L, Estimated Creat Clear 120, Estimated GFR 132, Est GFR ( Amer) 160 D, Glucose 128 H, Calcium 7.6 L, Total Bilirubin 0.4, AST 105 H, ALT 36, Alkaline Phosphatase 37 L, Total Protein 6.4, Albumin 3.1 L, Globulin 3.3 H, Albumin/Globulin Ratio 0.9 L 03/21/21 06:00: Specimen Source Right radial, O2 % 60, ABG pH 7.53 H, ABG pCO2 33.9 L, ABG pO2 69.0 L, ABG HCO3 27.5 H, ABG Total CO2 28.5 H, ABG O2 Saturation 94, ABG Base Excess 4.8 H, Vaughn Test Patient unable, Vent Rate 26, Tidal Volume 440, PEEP 10 I & O for Last 24 hours: Intake & Output 03/18/21 03/19/21 03/20/21 03/21/21 23:59 23:59 23:59 23:59 Intake Total 5280.708 / 5280.708 3964.083 / 4593.083 3337.333 / 3820.333 1361 / 1361 Output Total 2375 / 2540 3730 / 3730 5850 / 6000 2435 / 2435 Balance 2905.708 / 2740.708 234.083 / 863.083 -2512.667 / -2179.667 -1074 / -1074 Weight 159.75 kg 156.489 kg 160.254 kg 158.984 kg Assessment and Plan (1) Acute on chronic diastolic heart failure Status: Acute Category: Medical Code(s): I50.33 - Acute on chronic diastolic (congestive) heart failure (2) COVID-19 virus infection Status: Acute Category: Medical Code(s): U07.1 - COVID-19 (3) Respiratory failure with hypoxia and hypercapnia Status: Acute Qualifiers: Chronicity: acute Qualified Code(s): J96.01 - Acute respiratory failure with hypoxia; J96.02 - Acute respiratory failure with hypercapnia Category: Medical Code(s): J96.91 - Respiratory failure, unspecified with hypoxia; J96.92 - Respiratory failure, unspecified with hypercapnia (4) COPD (chronic obstructive pulmonary disease) Status: Chronic Qualifiers: COPD type: emphysema Emphysema type: unspecified Qualified Code(s): J43.9 - Emphysema, unspecified Category: Medical Code(s): J44.9 - Chronic obstructive pulmonary disease, unspecified (5) HLD (hyperlipidemia) Status: Chronic Qualifiers: Hyperlipidemia type: mixed hyperlipidemia Qualified Code(s): E78.2 - Mixed hyperlipidemia Category: Medical Code(s): E78.5 - Hyperlipidemia, unspecified (6) HTN (hypertension) Status: Chronic Qualifiers: Hypertension type: essential hypertension Category: Medical Code(s): I10 - Essential (primary) hypertension (7) Diastolic dysfunction Status: Acute Category: Medical Code(s): I51.89 - Other ill-defined heart diseases The patient's infection will respond to the chosen ABx?: Yes Is the patient receiving the right drug, dose, and route?: Yes Could a more targeted ABx be ordered?: No (SPUTUM NO REPORTABLE CX. WBC DECREASED 21.7 TO 9.9 03/21.)
[2021-03-21 14:40] LABS: ABG Base Excess 13.7 mmol/L (-2.4-2.3); ABG Oxygen Saturation 97 % (90-100); ABG PH 7.37 mmol/L (7.35-7.45); ABG PO2 112.1 mmhg (80-100); ABG TCO2 41.1 mmhg (23-27)
[2021-03-21 14:42] LABS: Allen's Test Acceptable; Oxygen 60% %; PEEP 10; Pressure Support 15; Source Right Radial
[2021-03-21 14:43] LABS: ABG PCO2 68.8 mmhg (35.0-45.0)
--- NOTE | 2021-03-21 17:23 | PC.NURSE ---
No acute changes. VS remain stable. SPO2 currently 94% on mech vent, settings remain unchanged from prev note. Lungs CTA. Has had large amount of secretions this shift, thick yellow/creamy. Suctioning and oral care performed frequently. Dressing to TLDL changed using aseptic technique d/t being soiled w/ secretions. HR regular, rate 80's. Edema noted. Abdomen soft, large w/ hypoactive BS. No BM this shift. Pulmocare @ goal rate, GRV = 0 throughout shift. Kumar cath to drain @ bedside w/ pale urine noted. Kumar care performed. Pt turned Q2H, extremities elevated and heels floating. She is currently resting in bed, HOB < 35 deg. Spoke to mother this shift, updated on plan of care. Sedation was started back when SBT ended, no changes from previous rates.
[2021-03-22] VITALS (35 sets, daily range): BP systolic 97–154; BP diastolic 45–99; PULSE 67–120; RESP 18–31; TEMP 36.4–37.5; O2SAT 92–96; BMI 58.8
--- NOTE | 2021-03-22 06:00 | XR_ITS ---
PROCEDURE INFORMATION: Exam: XR Chest Exam date and time: 03/22/2021 6:00 AM Age: 46 years old Clinical indication: Device placement; Ett placement (vent status); Additional info: Intubated TECHNIQUE: Imaging protocol: XR of the chest. Views: 1 view. COMPARISON: CR XR CHEST PORTABLE 03/21/2021 5:32 AM FINDINGS: Tubes, catheters and devices: Right IJ central venous catheter with the tip at the level of the atrial caval junction. Enteric tube tip extent in the left upper quadrant with the tip likely in the stomach. Endotracheal tube tip is approximately 4.5 cm from the rosa m. Lungs: Limited depth of inspiration. Bilateral patchy airspace disease, most notable in the lung bases, similar to the prior exam. Pleural spaces: No pleural effusion. No pneumothorax. Heart/Mediastinum: No acute findings or cardiomegaly. Bones/joints: No acute findings. IMPRESSION: No significant interval change in the appearance of the chest, lines tubes or catheters.
[2021-03-22 06:03] LABS: Basophils % 0.1 % (0.1-2.0); Eosinophils % 0.1 % (0.1-12.0); Hematocrit 37.1 % (37.0-47.0); Hemoglobin 11.6 g/dL (12.2-16.2); Lymphocytes # 0.8 K/mm3 (0.7-4.5); Lymphocytes % 7.8 % (10-50); Mean Corpuscular HGB Conc 31.4 g/dL (31.8-35.4); Mean Corpuscular Hemoglobin 30.3 pg (27.0-31.2); Mean Corpuscular Volume 96.7 fl (81-99); Mean Platelet Volume 8.1 fl (7.4-10.4); Monocytes # 0.5 K/mm3 (0.1-1.0); Monocytes % 5.1 % (1.7-9.3); Neutrophils # 8.5 K/mm3 (1.8-7.8); Platelet Count 176 K/mm3 (142-424); Red Blood Count 3.83 M/mm3 (4.20-5.40); Red Cell Distribution Width 14.1 % (11.5-17.5); White Blood Count 9.7 K/mm3 (4.8-10.8)
[2021-03-22 06:22] LABS: MANUAL DIFFERENTIAL MANUAL DIFFERENTIAL (MANUAL DIFF)
[2021-03-22 06:41] LABS: Hypochromasia 1+; Lymphocytes % 9 % (10-50); Neutrophils % 85 % (42-76); Platelet Estimate Normal; Total Cells Counted 100
[2021-03-22 07:13] LABS: Chloride 101 mmol/L (98-107); Sodium 139 mmol/L (136-145)
[2021-03-22 07:16] LABS: Alanine Aminotransferase 34 U/L (12-78); Alkaline Phosphatase 59 U/L (38-126); Aspartate Amino Transferase 63 U/L (14-36); Bilirubin,Total 0.2 mg/dl (0.2-1.3); Blood Urea Nitrogen 39 mg/dl (7-17); Carbon Dioxide 34 mmol/L (22.0-30.0); Creatinine Clearance Estimated 86 mL/min (50-200); Estimated Glomerular Filt Rate 90 ml/min (>60); GFR (African American) 109 ML/MIN (>60); Globulin 3.1 g/dL (1.3-3.2); Total Protein,Serum 6.1 g/dl (6.3-8.2)
[2021-03-22 07:17] LABS: Calcium 7.8 mg/dl (8.4-10.2); Glucose 118 mg/dl (74-100)
[2021-03-22 08:19] LABS: Anion Gap 7.9 mEq/L (5-15); Potassium 3.9 mmoL/L (3.5-5.1)
--- NOTE | 2021-03-22 08:57 | PC.NURSE ---
RESP CARE NOTE: Pt switched to SBT with settings of 10/5 cmH2O FIO2 of 60%. She is awake, alert, and following commands.
[2021-03-22 10:06] LABS: ABG Base Excess 8.6 mmol/L (-2.4-2.3); ABG HCO3 33.8 mmhg (22.0-26.0); ABG Oxygen Saturation 96 % (90-100); ABG PH 7.38 mmol/L (7.35-7.45); ABG PO2 92.3 mmhg (80-100); ABG TCO2 35.6 mmhg (23-27)
[2021-03-22 10:13] LABS: Oxygen 60 %; PEEP 5; Pressure Support 10; Source Right Radial
[2021-03-22 10:14] LABS: ABG PCO2 58.7 mmhg (35.0-45.0)
--- NOTE | 2021-03-22 11:13 | HMH.ACPN2 ---
Internal Medicine - PN: Subj *Date: 03/22/21 *Time: 09:00 Interval history: pt on breathing trial poss extubate today Exam Vital signs and Labs for Last 24 Hours: Temp Pulse Resp BP Pulse Ox 99.1 F 116 H 26 H 135/89 96 03/22/21 10:00 03/22/21 10:00 03/22/21 07:00 03/22/21 10:00 03/22/21 10:00 Laboratory Results - last 24 hr 03/21/21 14:00: Specimen Source Right radial, O2 % 60%, ABG pH 7.37, ABG pCO2 68.8 H, ABG pO2 112.1 H, ABG HCO3 39.0 H, ABG Total CO2 41.1 H, ABG O2 Saturation 97, ABG Base Excess 13.7 H, Vaughn Test Acceptable, PEEP 10 03/22/21 05:25: Sodium 139, Potassium 3.9, Chloride 101, Carbon Dioxide 34 H, Anion Gap 7.9, BUN 39 H, Creatinine 0.70 D, Estimated Creat Clear 86, Estimated GFR 90, Est GFR ( Amer) 109 D, Glucose 118 H, Calcium 7.8 L, Total Bilirubin 0.2, AST 63 H D, ALT 34, Alkaline Phosphatase 59, Total Protein 6.1 L, Albumin 3.0 L, Globulin 3.1, Albumin/Globulin Ratio 1.0 L 03/22/21 05:25: WBC 9.7, RBC 3.83 L, Hgb 11.6 L, Hct 37.1, MCV 96.7, MCH 30.3, MCHC 31.4 L, RDW 14.1, Plt Count 176, MPV 8.1, Neut % (Auto) 87.0 H, Lymph % (Auto) 7.8 L, [place] % (Auto) 5.1, Eos % (Auto) 0.1, Baso % (Auto) 0.1, Neut # (Auto) 8.5 H, Lymph # (Auto) 0.8, [place] # (Auto) 0.5, Eos # (Auto) 0.0, Baso # (Auto) 0.0, Total Counted 100, Neutrophils % (Manual) 85 H, Band Neutrophils % 6.0, Lymphocytes % (Manual) 9 L, Platelet Estimate Normal, Hypochromasia 1+ 03/22/21 06:00: Specimen Source Right radial, O2 % 60, ABG pH 7.38, ABG pCO2 58.7 H, ABG pO2 92.3, ABG HCO3 33.8 H, ABG Total CO2 35.6 H, ABG O2 Saturation 96, ABG Base Excess 8.6 H, Vaughn Test n/a, PEEP 5 I & O for Last 24 hours: Intake & Output 03/19/21 03/20/21 03/21/21 03/22/21 11:59 11:59 11:59 11:59 Intake Total 4547.083 / 4776.083 2553 / 2553 3601.333 / 3601.333 2851 / 2851 Output Total 2990 / 2990 5675 / 5675 4525 / 4750 2780 / 2780 Balance 1557.083 / 1786.083 -3122 / -3122 -923.667 / -1148.667 71 / 71 Weight 345 lb 353 lb 4.8 oz 350 lb 8 oz 344 lb 8 oz - Constitutional no acute distress, obese - *Routine HEENT Exam Head: Present: normocephalic Eye: Present: PERRL ENT: Present: mucous membranes moist - *Routine Neck Exam Present: supple. Absent: lymphadenopathy - *Routine Respiratory Exam Present: patient mechanically ventilated, CTA bilaterally - *Routine Cardiovascular Exam Present: RRR - *Routine Abdominal Exam Present: soft, normoactive bowel sounds. Absent: tenderness - *Routine Extremities Exam Absent: cyanosis, clubbing, edema - *Routine Skin Exam Present: warm. Absent: rash - *Routine Neurological Exam Present: alert - Routine Psychiatric Exam Present: normal affect Assessment and Plan (1) Acute on chronic diastolic heart failure Status: Acute Category: Medical Code(s): I50.33 - Acute on chronic diastolic (congestive) heart failure (2) COVID-19 virus infection Status: Acute Category: Medical Code(s): U07.1 - COVID-19 (3) Respiratory failure with hypoxia and hypercapnia Status: Acute Qualifiers: Chronicity: acute Qualified Code(s): J96.01 - Acute respiratory failure with hypoxia; J96.02 - Acute respiratory failure with hypercapnia Category: Medical Code(s): J96.91 - Respiratory failure, unspecified with hypoxia; J96.92 - Respiratory failure, unspecified with hypercapnia (4) COPD (chronic obstructive pulmonary disease) Status: Chronic Qualifiers: COPD type: emphysema Emphysema type: unspecified Qualified Code(s): J43.9 - Emphysema, unspecified Category: Medical Code(s): J44.9 - Chronic obstructive pulmonary disease, unspecified (5) HLD (hyperlipidemia) Status: Chronic Qualifiers: Hyperlipidemia type: mixed hyperlipidemia Qualified Code(s): E78.2 - Mixed hyperlipidemia Category: Medical Code(s): E78.5 - Hyperlipidemia, unspecified (6) HTN (hypertension) Status: Chronic Qualifiers: Hypertension type: essential hypertension Categor
--- NOTE | 2021-03-22 11:15 | PC.NURSE ---
RESP CARE NOTE: Pt extubated to BIPAP Settings 18/6 cmH2O Rate of 20 bpm, and FIO2 of 60%. 1112 03/22/2021
--- NOTE | 2021-03-22 11:39 | HMH.PNCARD ---
Subjective Date: 03/22/21 Time: 09:30 Interval history: 46 year old female admitted to [facility] on 03/16/2021 with complaints of cough, shortness of breath, headache and pains in her feet and hips. Patient was diagnosed with Covid and respiratory failure. Patient intubated at this time and on mechanical ventilation. Per pulmonology and PCP, the goal today is to wean patient off ventilator. This is being managed by PCP and pulmonology. Patient does have a history of congestive heart failure and had weight gain over the last few months. Patient is currently being diuresed with Lasix and responding appropriately. Lower extremity edema has improved. She is intubated and on mechanical ventilation. Vital signs are stable. Patient appears to be in no distress. Echocardiogram was performed which revealed EF 55% with no regional wall motion abnormality, grade 1 diastolic dysfunction. Trace mitral and tricuspid regurgitation. Echo:Conclusion 1. Technically difficult study because of the patient factors and poor acoustic windows. 2. Mild biatrial enlargement, normal left ventricular size, mild concentric left ventricular hypertrophy, visually estimated ejection fraction 55% with no regional wall motion abnormality, grade 1 diastolic dysfunction seen without tissue Doppler evidence of raise left atrial pressure. 3. Mildly enlarged right ventricle with normal contractility. 4. Trace mitral and tricuspid regurgitation. 5. No significant pericardial effusion noted. 6. Inferior vena cava is mildly dilated with normal inspiratory collapse. Discussed plan of care with Dr. Dougherty. Orders were received from Dr. Dougherty. No further cardiac testing is indicated at this time. Once patient is extubated, and able to tolerate oral medications. Patient may be then switched from Lasix IV to Lasix 40 mg p.o. daily due to diastolic dysfunction. Please notify cardiology of any changes in patient status. Thank you for allowing cardiology to participate in the care of this patient. Exam Vital signs and Labs for Last 24 Hours: Temp Pulse Resp BP Pulse Ox 97.5 F L 114 H 26 H 148/89 H 96 03/22/21 11:00 03/22/21 11:00 03/22/21 07:00 03/22/21 11:00 03/22/21 11:00 Laboratory Results - last 24 hr 03/21/21 14:00: Specimen Source Right radial, O2 % 60%, ABG pH 7.37, ABG pCO2 68.8 H, ABG pO2 112.1 H, ABG HCO3 39.0 H, ABG Total CO2 41.1 H, ABG O2 Saturation 97, ABG Base Excess 13.7 H, Vaughn Test Acceptable, PEEP 10 03/22/21 05:25: Sodium 139, Potassium 3.9, Chloride 101, Carbon Dioxide 34 H, Anion Gap 7.9, BUN 39 H, Creatinine 0.70 D, Estimated Creat Clear 86, Estimated GFR 90, Est GFR ( Amer) 109 D, Glucose 118 H, Calcium 7.8 L, Total Bilirubin 0.2, AST 63 H D, ALT 34, Alkaline Phosphatase 59, Total Protein 6.1 L, Albumin 3.0 L, Globulin 3.1, Albumin/Globulin Ratio 1.0 L 03/22/21 05:25: WBC 9.7, RBC 3.83 L, Hgb 11.6 L, Hct 37.1, MCV 96.7, MCH 30.3, MCHC 31.4 L, RDW 14.1, Plt Count 176, MPV 8.1, Neut % (Auto) 87.0 H, Lymph % (Auto) 7.8 L, [place] % (Auto) 5.1, Eos % (Auto) 0.1, Baso % (Auto) 0.1, Neut # (Auto) 8.5 H, Lymph # (Auto) 0.8, [place] # (Auto) 0.5, Eos # (Auto) 0.0, Baso # (Auto) 0.0, Total Counted 100, Neutrophils % (Manual) 85 H, Band Neutrophils % 6.0, Lymphocytes % (Manual) 9 L, Platelet Estimate Normal, Hypochromasia 1+ 03/22/21 06:00: Specimen Source Right radial, O2 % 60, ABG pH 7.38, ABG pCO2 58.7 H, ABG pO2 92.3, ABG HCO3 33.8 H, ABG Total CO2 35.6 H, ABG O2 Saturation 96, ABG Base Excess 8.6 H, Vaughn Test n/a, PEEP 5 I & O for Last 24 hours: Intake & Output 03/19/21 03/20/21 03/21/21 03/22/21 23:59 23:59 23:59 23:59 Intake Total 3964.083 / 4593.083 3337.333 / 3820.333 2892 / 3768 1420 / 1420 Output Total 3730 / 3730 5850 / 6000 4005 / 4080 1275 / 1275 Balance 234.083 / 863.083 -2512.667 / -2179.667 -1113 / -312 145 / 145 Weight 345 lb 353 lb 4.8 oz 350 lb 8 oz 344 lb 8 oz - Constitut
[2021-03-22 14:45] LABS: ABG Base Excess 1.4 mmol/L (-2.4-2.3); ABG HCO3 27.4 mmhg (22.0-26.0); ABG Oxygen Saturation 94 % (90-100); ABG PH 7.32 mmol/L (7.35-7.45); ABG PO2 77.9 mmhg (80-100); ABG TCO2 29.1 mmhg (23-27)
[2021-03-22 14:50] LABS: Oxygen 40 %; PEEP 5; Pressure Support 18
[2021-03-22 14:51] LABS: ABG PCO2 54.1 mmhg (35.0-45.0); Allen's Test Acceptable; Source Right Radial
--- NOTE | 2021-03-22 21:35 | PC.NURSE ---
She can answer her name, that she is in [place], and that it is 2020 but is combative. She has been trying to hit staff. She tries to take off her bipap and pulls off her telemetry leads and her SPO2 sensor. She is currently hitting the bed. She is NPO. Oral care has been provided. She is being turned and repositioned. HOB elevated. F/c patent with yellow, clear urine.
--- NOTE | 2021-03-22 21:46 | PC.NURSE ---
She continues to try and pull off her bipap and is calling staff bitch and stating I don't give a fuck when being educated over her oxygen.
[2021-03-23] VITALS (32 sets, daily range): BP systolic 130–158; BP diastolic 74–103; PULSE 88–111; RESP 14–34; TEMP -3.8–37.7; O2SAT 88–96; BMI 57.2
--- NOTE | 2021-03-23 00:12 | PC.NURSE ---
Patient is hitting staff and saying, fuck you, you stupid whore. Unable to redirect.
[2021-03-23 05:43] LABS: Basophils % 0.2 % (0.1-2.0); Hematocrit 41.3 % (37.0-47.0); Lymphocytes # 0.8 K/mm3 (0.7-4.5); Lymphocytes % 5.9 % (10-50); Mean Corpuscular HGB Conc 31.4 g/dL (31.8-35.4); Mean Corpuscular Hemoglobin 30.7 pg (27.0-31.2); Mean Corpuscular Volume 97.9 fl (81-99); Mean Platelet Volume 7.9 fl (7.4-10.4); Monocytes # 0.7 K/mm3 (0.1-1.0); Monocytes % 5.5 % (1.7-9.3); Neutrophils # 11.8 K/mm3 (1.8-7.8); Neutrophils % 88.4 % (37.0-80.0); Platelet Count 179 K/mm3 (142-424); Red Blood Count 4.22 M/mm3 (4.20-5.40); Red Cell Distribution Width 13.8 % (11.5-17.5); White Blood Count 13.4 K/mm3 (4.8-10.8)
[2021-03-23 05:54] LABS: Chloride 102 mmol/L (98-107); MANUAL DIFFERENTIAL MANUAL DIFFERENTIAL (MANUAL DIFF); Potassium 4.5 mmoL/L (3.5-5.1); Sodium 145 mmol/L (136-145)
[2021-03-23 05:56] LABS: Alanine Aminotransferase 51 U/L (12-78); Alkaline Phosphatase 68 U/L (38-126); Aspartate Amino Transferase 73 U/L (14-36); Bilirubin,Total 0.3 mg/dl (0.2-1.3); Blood Urea Nitrogen 34 mg/dl (7-17); Creatinine Clearance Estimated 86 mL/min (50-200); Estimated Glomerular Filt Rate 90 ml/min (>60); GFR (African American) 109 ML/MIN (>60)
[2021-03-23 05:57] LABS: Albumin Level 3.5 g/dl (3.5-5.0); Anion Gap 11.5 mEq/L (5-15); Calcium 8.4 mg/dl (8.4-10.2); Carbon Dioxide 36 mmol/L (22.0-30.0); Globulin 3.5 g/dL (1.3-3.2); Glucose 105 mg/dl (74-100)
[2021-03-23 08:33] LABS: Lymphocytes % 6 % (10-50); Monocytes % 2 % (2-9); Neutrophils % 92 % (42-76); Total Cells Counted 100
[2021-03-23 08:34] LABS: Macrocytosis 2+; Platelet Estimate Normal
--- NOTE | 2021-03-23 08:58 | PC.NURSE ---
bedside swallow test completed with sips of water via straw. Pt did well. Dr. Chris @ BS and witnessed. Will give AM po meds.
--- NOTE | 2021-03-23 09:07 | HMH.ACPN2 ---
Internal Medicine - PN: Subj *Date: 03/23/21 *Time: 12:31 Interval history: 46-year-old female patient sitting up in bed remains extubated today. She is agitated today and is constantly pulling off her mask per nursing, she was agitated last night as well Exam Vital signs and Labs for Last 24 Hours: Temp Pulse Resp BP Pulse Ox 98.6 F 101 H 27 H 141/100 H 91 L 03/23/21 07:50 03/23/21 07:50 03/23/21 07:50 03/23/21 07:50 03/23/21 07:50 Laboratory Results - last 24 hr 03/22/21 06:00: Specimen Source Right radial, O2 % 60, ABG pH 7.38, ABG pCO2 58.7 H, ABG pO2 92.3, ABG HCO3 33.8 H, ABG Total CO2 35.6 H, ABG O2 Saturation 96, ABG Base Excess 8.6 H, Vaughn Test n/a, PEEP 5 03/22/21 14:42: Specimen Source Right radial, O2 % 40, ABG pH 7.32 L, ABG pCO2 54.1 H, ABG pO2 77.9 L, ABG HCO3 27.4 H, ABG Total CO2 29.1 H, ABG O2 Saturation 94, ABG Base Excess 1.4, Vaughn Test Acceptable, PEEP 5 03/23/21 04:45: Sodium 145, Potassium 4.5, Chloride 102, Carbon Dioxide 36 H, Anion Gap 11.5, BUN 34 H, Creatinine 0.70, Estimated Creat Clear 86, Estimated GFR 90, Est GFR ( Amer) 109, Glucose 105 H, Calcium 8.4, Total Bilirubin 0.3, AST 73 H, ALT 51 D, Alkaline Phosphatase 68, Total Protein 7.0, Albumin 3.5 D, Globulin 3.5 H, Albumin/Globulin Ratio 1.0 L 03/23/21 04:45: WBC 13.4 H D, RBC 4.22, Hgb 13.0 D, Hct 41.3, MCV 97.9, MCH 30.7, MCHC 31.4 L, RDW 13.8, Plt Count 179, MPV 7.9, Neut % (Auto) 88.4 H, Lymph % (Auto) 5.9 L, [place] % (Auto) 5.5, Eos % (Auto) 0.0 L, Baso % (Auto) 0.2, Neut # (Auto) 11.8 H, Lymph # (Auto) 0.8, [place] # (Auto) 0.7, Eos # (Auto) 0.0, Baso # (Auto) 0.0, Total Counted 100, Neutrophils % (Manual) 92 H, Lymphocytes % (Manual) 6 L, Monocytes % (Manual) 2, Platelet Estimate Normal, RBC Morphology Not Reportable, Macrocytosis 2+ I & O for Last 24 hours: Intake & Output 03/20/21 03/21/21 03/22/21 03/23/21 23:59 23:59 23:59 23:59 Intake Total 3337.333 / 3820.333 2892 / 3768 1420 / 1420 370 / 370 Output Total 5850 / 6000 4005 / 4080 5375 / 5525 1400 / 1400 Balance -2512.667 / -2179.667 -1113 / -312 -3955 / -4105 -1030 / -1030 Weight 353 lb 4.8 oz 350 lb 8 oz 344 lb 8 oz 335 lb - Constitutional mild distress, morbidly obese, agitated - *Routine HEENT Exam Head: Present: normocephalic Eye: Present: EOMI ENT: Present: mucous membranes moist - *Routine Neck Exam Present: trachea midline. Absent: tracheal deviation - *Routine Respiratory Exam Present: rales, rhonchi. Absent: accessory muscle use - *Routine Cardiovascular Exam Present: RRR - *Routine Abdominal Exam Present: soft, normoactive bowel sounds. Absent: tenderness, firm - *Routine Extremities Exam Present: edema, full ROM. Absent: cyanosis, clubbing - *Routine Skin Exam Present: intact, dry, warm. Absent: cyanosis, erythema - *Routine Neurological Exam Present: alert, altered mental status. Absent: motor deficit - Routine Psychiatric Exam Present: anxious, agitated, unable to assess Assessment and Plan (1) Acute on chronic diastolic heart failure Status: Acute Category: Medical Code(s): I50.33 - Acute on chronic diastolic (congestive) heart failure (2) COVID-19 virus infection Status: Acute Category: Medical Code(s): U07.1 - COVID-19 (3) Respiratory failure with hypoxia and hypercapnia Status: Acute Qualifiers: Chronicity: acute Qualified Code(s): J96.01 - Acute respiratory failure with hypoxia; J96.02 - Acute respiratory failure with hypercapnia Category: Medical Code(s): J96.91 - Respiratory failure, unspecified with hypoxia; J96.92 - Respiratory failure, unspecified with hypercapnia (4) COPD (chronic obstructive pulmonary disease) Status: Chronic Qualifiers: COPD type: emphysema Emphysema type: unspecified Qualified Code(s): J43.9 - Emphysema, unspecified Category: Medical Code(s): J44.9 - Chronic obstructive pulmonary disease, unspecified (5) HLD (hyperlipidemia) Status: C
--- NOTE | 2021-03-23 12:04 | HMH.PTEV ---
Physical Therapy Evaluation Rehab PT IP Evaluation Start: 03/23/21 09:56 Freq: ONCE Status: Active Protocol: Document 03/23/21 11:36 PWNITHIN (Rec: 03/23/21 12:04 PWNITHIN [id number]) Subjective/History History History This is the initial evaluation for Carin Badillo. Pt is a 46 y/o female admitted for COVID and resp failure. Pt was intubated per anesthesia for 7 days. Pt is now extubated and medically stable. Pt was restarted on all pych medications. Pt is receiving supplemental O2. - note done by Lorie Ramírez, SPT Subjective Subjective Pt states she lives in an apartment with her boyfriend. Pt states she was vaccinated but still got COVID. Pt states she was independent in all her activites before being admitted to hospital. Pt states she will not be returing home alone. Rehab PT IP Eval Objective Appearance Patient Behavior Fatigued,Resistive to Care Patient Orientation Person,Year Difficulty following instructions moderate Speech Pattern Soft-Spoken,Includes Profanity ,Monotone,Mumbled Ambulation Patient Able to Ambulate No Balance Ability to Arise Unable Transfers Bed Transfer Ability Maximum x 2 (75% assist) Rehab PT IP prob,goals,plan Problems Date of Evaluation: 03/23/21 PT IP Problems Bed Mobility,Transfers,Gait, Balance,Self care,Safety Rehab Potential Rehab Potential Poor Equipment Needs Assistive Devices Rolling / Wheeled Walker, Wheelchair Plan PT Intervention Plan Bed Mobility,Transfers,Gait, Balance,Self care,Safety, Therapeutic Exercise PT Plan Frequency BID Duration LOS Discharge Goals Bed Transfer Ability Maximum x 2 (75% assist) Sit to Stand Chair Transfer Ability Maximum x 2 (75% assist) Ambulation Assistive Device Rolling Walker Ambulation Distance (feet) 5 Discharge Plan PT Discharge Plan Pt will benefit from skilled therapy to aid in strength, endurance, bed mobility,
--- NOTE | 2021-03-23 12:43 | PC.NURSE ---
pt ate aprox 50% of lunch (mashed potatoes, peas, and mixed vegetables). No dysphagia noted. Is a total feed.
--- NOTE | 2021-03-23 14:26 | HMH.PULMCON ---
*Admission Date: 03/16/21 *Reason for consult:: Acute hypoxic and hypercarbic respiratory failure, COVID-19 pneumonia *History of present illness: Ms. Badillo is a 46-year-old female significant smoking history carries a diagnosis of COPD, sleep apnea currently not using her BiPAP machine secondary to backorder presented to the hospital with worsening respiratory status and found to be in hypoxic hypercarbic respiratory failure needing intubation and mechanical ventilatory support, successfully extubated yesterday to noninvasive ventilation, wean to nasal cannula this morning and pulmonary was called for further management. She also carries a diagnosis morbid obesity and congestive heart failure [facility] History Medical History: Reports:: Anxiety, Asthma, Congestive Heart Failure, Depression, Diabetes Mellitus Type 2, Gastroesophageal Reflux Disease(GERD), Hyperlipidemia, Hypertension, Migraine Denies:: Internal Pacemaker, Seizures *Have you ever received a pneumonia vaccine?: No *Have you received a flu vaccine this season?: No Other Medical History: Reports: Hypothyroidism, Other Laterality Cases: Left: Arthroscopy Knee Other Surgeries: Yes: Appendectomy, CABG, Cholecystectomy, Colonoscopy, Diagnostic Lap, Hernia Repair, Hysterectomy-Total, Hysterectomy-Partial. No: Pacemaker Amputation: No Fractures: No - *Social History Smoking Status: Current every day smoker Tobacco Type: cigarettes # Packs/Day (cigarettes): 1 #Yrs smoked (if former smoker): 25 Alcohol Intake: former Alcohol Intake Frequency:: other Substance Use Type: denies use *Occupational Status:: unemployed Housing: apartment Household Members: significant other *Travel in the last 8 weeks: None - Psychiatric History Pschychiatric History:: Reports:: Anxiety, Depression Family Hx:: Unable to obtain ROS - Cons Reports anorexia, Reports body ache(s), Reports fatigue - Eyes Denies blind spots - ENT Denies bleeding gums - Card Reports shortness of breath, Reports shortness of breath with activity, Reports leg swelling - Resp Respiratory: Reports shortness of breath, Reports chest congestion, Reports cough - GI Gastrointestingal: Denies: abdominal pain - [place] Musculoskeletal: Reports joint pain - Psych Reports abnormal sleep pattern Meds Home Medications Medication Instructions Recorded Confirmed Type albuterol sulfate 90 mcg/actuation 1 puff INHALATION Q6H PRN g 10/22/20 03/16/21 History aerosol inhaler lisinopril 10 mg tablet 10 mg PO DAILY tab 10/22/20 03/16/21 History hydrocodone 5 mg-acetaminophen 325 1 tab PO BID PRN #60 tab 02/19/21 03/16/21 Rx mg tablet Albuterol Sulfate [Albuterol 0.63 mg INHALATION Q6H PRN 03/16/21 03/16/21 History Sulfate 0.63mg/3ml Neb] Gabapentin 800 mg PO TID 03/16/21 03/16/21 History Levothyroxine Sodium [Synthroid 25 mcg PO DAILY 03/16/21 03/16/21 History 25mcg (0.025mg) tablet] Omeprazole 40 mg PO DAILY 03/16/21 03/16/21 History SUMAtriptan succinate [Sumatriptan See Rx Instructions PO .COMPLEX 03/16/21 03/16/21 History Succinate] Torsemide 100 mg PO DAILY 03/16/21 03/16/21 History Vilazodone HCl [Viibryd] 40 mg PO DAILY 03/16/21 03/16/21 History Ziprasidone HCl 40 mg PO BID 03/16/21 03/16/21 History lamoTRIgine [Lamotrigine] 100 mg PO DAILY 03/16/21 03/16/21 History clonazePAM [Clonazepam] 0.5 mg PO BIDP PRN 03/17/21 03/17/21 History Allergies Allergy/AdvReac Type Severity Reaction Status Date / Time No Known Allergies Allergy Verified 02/17/21 10:23 Exam - Constitutional Constitutional:: Present: no acute distress, comfortable - HENMT Exam HENMT: Present: normocephalic, atraumatic - Eye Exam Eyes:: Present: normal appearance both eyes and related structures - Neck Exam Neck:: Present: normal visual inspection - Respiratory Exam Respiratory:: Present: able to speak in complete sentences, no respiratory distress, normal respiratory effort, wheezing - Cardiovascular Ex
--- NOTE | 2021-03-23 18:35 | PC.NURSE ---
shift summary: pt has done well this shift. Has been on 3L NC almost entire shift with O2 sats > 90%. Is A&O. No confusion noted. Has been calm and pleasant. NSR to sinus tach on tele. Has been normotensive. Has had 2 BMs. Is incontinent of bowels. Kumar cath noted. Adequate UOP. Received Lasix 40mg IV twice today.
[2021-03-24] VITALS (23 sets, daily range): BP systolic 111–156; BP diastolic 65–99; PULSE 80–105; RESP 14–25; TEMP 37.1–37.5; O2SAT 9–98; BMI 57.2
[2021-03-24 05:21] LABS: Basophils # 0.1 K/mm3 (0-0.2); Basophils % 0.6 % (0.1-2.0); Eosinophils % 0.2 % (0.1-12.0); Hematocrit 42.6 % (37.0-47.0); Hemoglobin 13.1 g/dL (12.2-16.2); Lymphocytes # 1.5 K/mm3 (0.7-4.5); Lymphocytes % 13.2 % (10-50); Mean Corpuscular HGB Conc 30.6 g/dL (31.8-35.4); Mean Corpuscular Volume 97.8 fl (81-99); Mean Platelet Volume 7.8 fl (7.4-10.4); Monocytes # 0.7 K/mm3 (0.1-1.0); Monocytes % 6.5 % (1.7-9.3); Neutrophils # 8.9 K/mm3 (1.8-7.8); Neutrophils % 79.6 % (37.0-80.0); Platelet Count 181 K/mm3 (142-424); Red Blood Count 4.36 M/mm3 (4.20-5.40); Red Cell Distribution Width 13.6 % (11.5-17.5); White Blood Count 11.1 K/mm3 (4.8-10.8)
[2021-03-24 05:31] LABS: Alanine Aminotransferase 51 U/L (12-78); Albumin Level 3.2 g/dl (3.5-5.0); Alkaline Phosphatase 58 U/L (38-126); Anion Gap 9.4 mEq/L (5-15); Aspartate Amino Transferase 45 U/L (14-36); Bilirubin,Total 0.3 mg/dl (0.2-1.3); Blood Urea Nitrogen 33 mg/dl (7-17); Calcium 8.5 mg/dl (8.4-10.2); Carbon Dioxide 35 mmol/L (22.0-30.0); Chloride 98 mmol/L (98-107); Creatinine Clearance Estimated 100 mL/min (50-200); Estimated Glomerular Filt Rate 107 ml/min (>60); GFR (African American) 130 ML/MIN (>60); Globulin 3.3 g/dL (1.3-3.2); Glucose 83 mg/dl (74-100); Potassium 4.4 mmoL/L (3.5-5.1); Sodium 138 mmol/L (136-145); Total Protein,Serum 6.5 g/dl (6.3-8.2)
--- NOTE | 2021-03-24 06:00 | XR_ITS ---
PROCEDURE INFORMATION: Exam: XR Chest Exam date and time: 03/24/2021 6:00 AM Age: 46 years old Clinical indication: Shortness of breath; Additional info: Covid TECHNIQUE: Imaging protocol: XR of the chest. Views: 1 view. COMPARISON: CR XR CHEST PORTABLE 03/22/2021 5:32 AM FINDINGS: Tubes, catheters and devices: Interval extubation. Right IJ central venous catheter terminates in the region of the superior cavoatrial junction. Lungs: Low lung volumes with mild interval improvement in bilateral airspace opacities. Pleural spaces: Slightly decreased size of pleural effusions. No pneumothorax. Heart/Mediastinum: Unremarkable. No cardiomegaly. Bones/joints: Unremarkable. IMPRESSION: Mildly improved pneumonia with slightly decreased size of pleural effusions.
--- NOTE | 2021-03-24 06:01 | PC.NURSE ---
No acute changes overnight, pt refused to wear bipap. remained on 3L NC through the night, sats stayed >90%. pt slept well this shift, no c/o pain or difficulty breathing. PO intake has been adequate, UOP of 1500ml this shift. Pt still has extensive weakness in the upper body. VSS, call light in reach, no concerns at this time.
--- NOTE | 2021-03-24 10:08 | HMH.ACPN2 ---
Internal Medicine - PN: Subj *Date: 03/24/21 *Time: 13:02 Interval history: 46-year-old female patient lying in bed resting quietly, current oxygenation 93% on 3 L per nasal cannula. She is more awake and alert today than yesterday, able to carry on simple conversations and states upon discharge she will be going to [place] with her mother. Exam Vital signs and Labs for Last 24 Hours: Temp Pulse Resp BP Pulse Ox 99 F 101 H 20 156/92 H 90 L 03/24/21 06:57 03/24/21 08:00 03/24/21 08:00 03/24/21 08:00 03/24/21 08:00 Laboratory Results - last 24 hr 03/24/21 05:12: Sodium 138, Potassium 4.4, Chloride 98, Carbon Dioxide 35 H, Anion Gap 9.4, BUN 33 H, Creatinine 0.60, Estimated Creat Clear 100, Estimated GFR 107, Est GFR ( Amer) 130, Glucose 83, Calcium 8.5, Total Bilirubin 0.3, AST 45 H D, ALT 51, Alkaline Phosphatase 58, Total Protein 6.5, Albumin 3.2 L, Globulin 3.3 H, Albumin/Globulin Ratio 1.0 L 03/24/21 05:12: WBC 11.1 H, RBC 4.36, Hgb 13.1, Hct 42.6, MCV 97.8, MCH 30.0, MCHC 30.6 L, RDW 13.6, Plt Count 181, MPV 7.8, Neut % (Auto) 79.6, Lymph % (Auto) 13.2, [place] % (Auto) 6.5, Eos % (Auto) 0.2, Baso % (Auto) 0.6, Neut # (Auto) 8.9 H, Lymph # (Auto) 1.5, [place] # (Auto) 0.7, Eos # (Auto) 0.0, Baso # (Auto) 0.1 I & O for Last 24 hours: Intake & Output 03/21/21 03/22/21 03/23/21 03/24/21 23:59 23:59 23:59 23:59 Intake Total 2892 / 3768 1420 / 1420 470 / 470 240 / 240 Output Total 4005 / 4080 5375 / 5525 4790 / 4915 1385 / 1385 Balance -1113 / -312 -3955 / -4105 -4320 / -4445 -1145 / -1145 Weight 350 lb 8 oz 344 lb 8 oz 335 lb 335 lb - Constitutional no acute distress, morbidly obese - *Routine HEENT Exam Head: Present: normocephalic Eye: Present: EOMI ENT: Present: mucous membranes moist - *Routine Neck Exam Present: trachea midline. Absent: tracheal deviation - *Routine Respiratory Exam Present: decreased breath sounds, crackles. Absent: accessory muscle use - *Routine Cardiovascular Exam Present: RRR - *Routine Abdominal Exam Present: soft, normoactive bowel sounds. Absent: tenderness - *Routine Extremities Exam Present: edema, full ROM, pulses intact. Absent: cyanosis, clubbing - *Routine Skin Exam Present: intact, dry. Absent: cyanosis, erythema - *Routine Neurological Exam Present: alert. Absent: motor deficit - Routine Psychiatric Exam Present: unable to assess Assessment and Plan (1) Acute on chronic diastolic heart failure Status: Acute Category: Medical Code(s): I50.33 - Acute on chronic diastolic (congestive) heart failure (2) COVID-19 virus infection Status: Acute Category: Medical Code(s): U07.1 - COVID-19 (3) Respiratory failure with hypoxia and hypercapnia Status: Acute Qualifiers: Chronicity: acute Qualified Code(s): J96.01 - Acute respiratory failure with hypoxia; J96.02 - Acute respiratory failure with hypercapnia Category: Medical Code(s): J96.91 - Respiratory failure, unspecified with hypoxia; J96.92 - Respiratory failure, unspecified with hypercapnia (4) COPD (chronic obstructive pulmonary disease) Status: Chronic Qualifiers: COPD type: emphysema Emphysema type: unspecified Qualified Code(s): J43.9 - Emphysema, unspecified Category: Medical Code(s): J44.9 - Chronic obstructive pulmonary disease, unspecified (5) HLD (hyperlipidemia) Status: Chronic Qualifiers: Hyperlipidemia type: mixed hyperlipidemia Qualified Code(s): E78.2 - Mixed hyperlipidemia Category: Medical Code(s): E78.5 - Hyperlipidemia, unspecified (6) HTN (hypertension) Status: Chronic Qualifiers: Hypertension type: essential hypertension Category: Medical Code(s): I10 - Essential (primary) hypertension (7) Diastolic dysfunction Status: Acute Category: Medical Code(s): I51.89 - Other ill-defined heart diseases (8) Obesity Status: Acute Qualifiers: Obesity type: due to excess calories
--- NOTE | 2021-03-24 10:12 | SW/DCPLANNER ---
Addendum entered by Bia Rose 03/29/21 11:17: Bel with Syd has stated that walker has been delivered to [facility]. Addendum entered by Bia Rose 03/29/21 09:46: This patient is not medically stable for discharge at this time. Patient has requested a rolling walker prior to discharge: information/order has been faxed to [facility]. I will follow up with Syd once patient information is reviewed. Patient has also requested clothing: I will follow up with patients mom today regarding discharge and clothing. Original Note: I spoke with this patients mother (Kallie [phone]) regarding plans once patient is medically stable for discharge. Tacos stated that she has been in contact with this patient and she intends on driving patient back to her home in [place] with patients sister. I explained to Kallie that patient will more than likely require oxygen at time of discharge and this could be difficult. I made contact with Xi at [facility] regarding situation: Xi stated that she will speak with office and call me back. Kallie also stated that if patient is unable to make trip at time of discharge she would keep patient in [place] until medically stable for discharge. Kallie has stated that at this time patient is agreeable with plan. I did discuss PT/OT recommendations and improvement today. I will continue to follow up with Syd HERNANDEZ, patient and patients family. Discharge date is unknown at this time.
--- NOTE | 2021-03-24 10:34 | HMH.PULMPN ---
Internal Medicine - PN: Subj *Date: 03/24/21 *Time: 10:34 Interval history: No acute respite events overnight. Denies any new respiratory complaints. Exam - Constitutional Constitutional:: Present: no acute distress, comfortable - HENMT Exam HENMT: Present: normocephalic, atraumatic - Eye Exam Eyes:: Present: normal appearance both eyes and related structures - Respiratory Exam Respiratory:: Present: able to speak in complete sentences, respiratory distress, decreased breath sounds, rales - Cardiovascular Exam Cardiac:: Present: S1, S2 - GI Exam GI:: Present: soft, obese - Skin Exam Skin: Present: warm, no rash - Neurological Exam Neurological: Present: alert, awake, normal cognition - Extremities Exam Extremities: Present: no cyanosis, no clubbing, edema Assessment and Plan (1) Acute on chronic diastolic heart failure Status: Acute Category: Medical Code(s): I50.33 - Acute on chronic diastolic (congestive) heart failure (2) COVID-19 virus infection Status: Acute Category: Medical Code(s): U07.1 - COVID-19 (3) Respiratory failure with hypoxia and hypercapnia Status: Acute Qualifiers: Chronicity: acute Qualified Code(s): J96.01 - Acute respiratory failure with hypoxia; J96.02 - Acute respiratory failure with hypercapnia Category: Medical Code(s): J96.91 - Respiratory failure, unspecified with hypoxia; J96.92 - Respiratory failure, unspecified with hypercapnia (4) COPD (chronic obstructive pulmonary disease) Status: Chronic Qualifiers: COPD type: emphysema Emphysema type: unspecified Qualified Code(s): J43.9 - Emphysema, unspecified Category: Medical Code(s): J44.9 - Chronic obstructive pulmonary disease, unspecified (5) HLD (hyperlipidemia) Status: Chronic Qualifiers: Hyperlipidemia type: mixed hyperlipidemia Qualified Code(s): E78.2 - Mixed hyperlipidemia Category: Medical Code(s): E78.5 - Hyperlipidemia, unspecified (6) HTN (hypertension) Status: Chronic Qualifiers: Hypertension type: essential hypertension Category: Medical Code(s): I10 - Essential (primary) hypertension (7) Diastolic dysfunction Status: Acute Category: Medical Code(s): I51.89 - Other ill-defined heart diseases (8) Obesity Status: Acute Qualifiers: Obesity type: due to excess calories Obesity classification: adult class 3 (BMI >= 40) Serious obesity comorbidity presence: without serious comorbidity Body mass index: BMI 45.0-49.9 Qualified Code(s): E66.01 - Morbid (severe) obesity due to excess calories; Z68.42 - Body mass index [BMI] 45.0-49.9, adult Category: Medical Code(s): E66.9 - Obesity, unspecified - Assessment and plan all Dx Assessment and Plan for all problems:: Acute hypoxic hypercarbic respiratory failure: COVID-19 pneumonia: Ms. Badillo is a 46-year-old female significant smoking history carries a diagnosis of COPD, sleep apnea currently not using her BiPAP machine secondary to backorder presented to the hospital with worsening respiratory status and found to be in hypoxic hypercarbic respiratory failure needing intubation and mechanical ventilatory support, successfully extubated yesterday to noninvasive ventilation, wean to nasal cannula this morning and pulmonary was called for further management. Patient significant hypercarbia admission with a pH of 7.110 PCO2 135. Hypercarbia spiteful appeared improved and patient alert and oriented x3 this morning while conversation. She does have mild expiratory wheeze. She continued to receive DuoNebs every 4 hours scheduled along with methylprednisolone. She also getting treated with ceftriaxone azithromycin for possible community-acquired pneumonia along with remdesivir for COVID-19 pneumonia. Patient respiratory status remained stable since yesterday. She admits improvement in her symptoms. She did not receive noninvasive ventilator therapy overnight. She did not receive
--- NOTE | 2021-03-24 15:10 | PC.NURSE ---
Addendum entered by Sandrine Grover RN 03/24/21 17:58: TLDL dressing changed @ 1700 using aseptic technique. Blue caps changed on each line as well. Original Note: Pt up to chair w/ minimal assistance for about 5 hours this shift. She requires minimal assistance w/ use of walker when transferring from bed to chair. Tolerates activity well. O2 has been weaned to 2 L, SPO2 remains in mid 90's. Lungs CTA. Resp even, unlabored. HR regular, sinus on tely. Abdomen large w/ active BS. No BM thus far. Skin tear noted to R side of mid back, dressing put in place. Stage II also noted to sacrum, dressing intact. +2 pitting edema noted to BLE. Pt bathed sitting up in chair, hair washed. Oral care provided, dentures cleaned. Linens changed. She has ate all of her trays, standby assistance sometimes needed d/t weakness when lifting BUE. She is lying in bed resting @ this time. Call dixon w/in reach. Bed alarm in place. Mother was updated on POC this AM. Pt has been in contact w/ her family multiple times today w/ her own personal cell phone.
[2021-03-25] VITALS (15 sets, daily range): BP systolic 94–127; BP diastolic 60–88; PULSE 76–116; RESP 14–26; TEMP 36.5–38.2; O2SAT 88–99; BMI 61.0
[2021-03-25 04:19] LABS: POC Glucose,Bedside 81 (70-110)
[2021-03-25 04:19] LABS: POC Glucose,Bedside 98 (70-110)
[2021-03-25 05:28] LABS: POC Glucose,Bedside 88 (70-110)
--- NOTE | 2021-03-25 05:49 | PC.NURSE ---
got pt from chair to bed at approximately 2200, pt rested well throughout shift, pt's VSS, pain controlled with ordered pain medication, will continue to monitor
[2021-03-25 06:14] LABS: Basophils # 0.1 K/mm3 (0-0.2); Basophils % 0.6 % (0.1-2.0); Chloride 95 mmol/L (98-107); Eosinophils # 0.1 K/mm3 (0.0-0.4); Eosinophils % 0.8 % (0.1-12.0); Hematocrit 45.4 % (37.0-47.0); Hemoglobin 13.8 g/dL (12.2-16.2); Lymphocytes # 2.3 K/mm3 (0.7-4.5); Lymphocytes % 17.8 % (10-50); Mean Corpuscular HGB Conc 30.3 g/dL (31.8-35.4); Mean Corpuscular Hemoglobin 29.9 pg (27.0-31.2); Mean Corpuscular Volume 98.7 fl (81-99); Mean Platelet Volume 7.8 fl (7.4-10.4); Monocytes % 7.5 % (1.7-9.3); Neutrophils # 9.6 K/mm3 (1.8-7.8); Neutrophils % 73.3 % (37.0-80.0); Platelet Count 229 K/mm3 (142-424); Potassium 4.1 mmoL/L (3.5-5.1); Red Cell Distribution Width 13.6 % (11.5-17.5); Sodium 135 mmol/L (136-145); White Blood Count 13.1 K/mm3 (4.8-10.8)
[2021-03-25 06:16] LABS: Blood Urea Nitrogen 53 mg/dl (7-17); Estimated Glomerular Filt Rate 53 ml/min (>60); GFR (African American) 64 ML/MIN (>60)
[2021-03-25 06:17] LABS: Alanine Aminotransferase 42 U/L (12-78); Albumin Level 3.2 g/dl (3.5-5.0); Albumin/Globulin Ratio 1.1 (1.1-1.8); Alkaline Phosphatase 60 U/L (38-126); Anion Gap 10.1 mEq/L (5-15); Aspartate Amino Transferase 33 U/L (14-36); Bilirubin,Total 0.3 mg/dl (0.2-1.3); Calcium 8.4 mg/dl (8.4-10.2); Carbon Dioxide 34 mmol/L (22.0-30.0); Glucose 88 mg/dl (74-100); Total Protein,Serum 6.2 g/dl (6.3-8.2)
[2021-03-25 06:27] LABS: Creatinine Clearance Estimated 48 mL/min (50-200)
--- NOTE | 2021-03-25 09:28 | HMH.PULMPN ---
Internal Medicine - PN: Subj *Date: 03/25/21 *Time: 13:25 Interval history: Patient admits continued improvement in her symptoms. Exam - Constitutional Constitutional:: Present: no acute distress, comfortable - HENMT Exam HENMT: Present: normocephalic, atraumatic - Eye Exam Eyes:: Present: normal appearance both eyes and related structures - Neck Exam Neck:: Present: normal visual inspection - Respiratory Exam Respiratory:: Present: able to speak in complete sentences, no respiratory distress. Absent: wheezing - Cardiovascular Exam Cardiac:: Present: S1, S2 - GI Exam GI:: Present: soft, obese - Skin Exam Skin: Present: warm, no rash - Neurological Exam Neurological: Present: alert, awake, normal cognition - Extremities Exam Extremities: Present: no cyanosis, no clubbing Assessment and Plan (1) Acute on chronic diastolic heart failure Status: Acute Category: Medical Code(s): I50.33 - Acute on chronic diastolic (congestive) heart failure (2) COVID-19 virus infection Status: Acute Category: Medical Code(s): U07.1 - COVID-19 (3) Respiratory failure with hypoxia and hypercapnia Status: Acute Qualifiers: Chronicity: acute Qualified Code(s): J96.01 - Acute respiratory failure with hypoxia; J96.02 - Acute respiratory failure with hypercapnia Category: Medical Code(s): J96.91 - Respiratory failure, unspecified with hypoxia; J96.92 - Respiratory failure, unspecified with hypercapnia (4) COPD (chronic obstructive pulmonary disease) Status: Chronic Qualifiers: COPD type: emphysema Emphysema type: unspecified Qualified Code(s): J43.9 - Emphysema, unspecified Category: Medical Code(s): J44.9 - Chronic obstructive pulmonary disease, unspecified (5) HLD (hyperlipidemia) Status: Chronic Qualifiers: Hyperlipidemia type: mixed hyperlipidemia Qualified Code(s): E78.2 - Mixed hyperlipidemia Category: Medical Code(s): E78.5 - Hyperlipidemia, unspecified (6) HTN (hypertension) Status: Chronic Qualifiers: Hypertension type: essential hypertension Category: Medical Code(s): I10 - Essential (primary) hypertension (7) Diastolic dysfunction Status: Acute Category: Medical Code(s): I51.89 - Other ill-defined heart diseases (8) Obesity Status: Acute Qualifiers: Obesity type: due to excess calories Obesity classification: adult class 3 (BMI >= 40) Serious obesity comorbidity presence: without serious comorbidity Body mass index: BMI 45.0-49.9 Qualified Code(s): E66.01 - Morbid (severe) obesity due to excess calories; Z68.42 - Body mass index [BMI] 45.0-49.9, adult Category: Medical Code(s): E66.9 - Obesity, unspecified - Assessment and plan all Dx Assessment and Plan for all problems:: #Acute hypoxic hypercarbic respiratory failure: #COVID-19 pneumonia: Ms. Badillo is a 46-year-old female significant smoking history carries a diagnosis of COPD, sleep apnea currently not using her BiPAP machine secondary to backorder presented to the hospital with worsening respiratory status and found to be in hypoxic hypercarbic respiratory failure needing intubation and mechanical ventilatory support, successfully extubated yesterday to noninvasive ventilation, wean to nasal cannula this morning and pulmonary was called for further management. Patient had significant hypercarbia admission with a pH of 7.110 PCO2 135. Hypercarbia spiteful appeared improved and patient alert and oriented x3 this morning while conversation. She does have mild expiratory wheeze. She continued to receive DuoNebs every 4 hours scheduled along with methylprednisolone. She also getting treated with ceftriaxone azithromycin x 5 days for possible community-acquired pneumonia along with remdesivir for COVID-19 pneumonia. Patient respiratory status remained stable in the last 48 hrs She admits improvement in her symptoms. She is currently on 2 L saturating 95% and above
--- NOTE | 2021-03-25 10:17 | HMH.ACPN2 ---
Internal Medicine - PN: Subj *Date: 03/25/21 *Time: 13:58 Interval history: 46-year-old female patient sitting up in chair reports she is feeling better today than yesterday. She is much more alert today and able to carry on complete conversations. Oxygenation 97% on 2 L per nasal cannula Exam Vital signs and Labs for Last 24 Hours: Temp Pulse Resp BP Pulse Ox 97.7 F 92 H 17 112/71 96 03/25/21 08:00 03/25/21 08:00 03/25/21 08:00 03/25/21 08:00 03/25/21 08:00 Laboratory Results - last 24 hr 03/24/21 16:23: POC Glucose 81 03/24/21 19:54: POC Glucose 98 03/25/21 05:16: POC Glucose 88 03/25/21 05:20: Sodium 135 L, Potassium 4.1, Chloride 95 L, Carbon Dioxide 34 H, Anion Gap 10.1, BUN 53 H D, Creatinine 1.10 H D, Estimated Creat Clear 48, Estimated GFR 53 L, Est GFR ( Amer) 64 D, Glucose 88, Calcium 8.4, Total Bilirubin 0.3, AST 33 D, ALT 42, Alkaline Phosphatase 60, Total Protein 6.2 L, Albumin 3.2 L, Globulin 3.0, Albumin/Globulin Ratio 1.1 03/25/21 05:20: WBC 13.1 H, RBC 4.60, Hgb 13.8, Hct 45.4, MCV 98.7, MCH 29.9, MCHC 30.3 L, RDW 13.6, Plt Count 229 D, MPV 7.8, Neut % (Auto) 73.3, Lymph % (Auto) 17.8, [place] % (Auto) 7.5, Eos % (Auto) 0.8, Baso % (Auto) 0.6, Neut # (Auto) 9.6 H, Lymph # (Auto) 2.3, [place] # (Auto) 1.0, Eos # (Auto) 0.1, Baso # (Auto) 0.1 I & O for Last 24 hours: Intake & Output 03/22/21 03/23/21 03/24/21 03/25/21 23:59 23:59 23:59 23:59 Intake Total 1420 / 1420 470 / 470 1180 / 1180 960 / 960 Output Total 5375 / 5525 4790 / 4915 5635 / 5635 700 / 700 Balance -3955 / -4105 -4320 / -4445 -4455 / -4455 260 / 260 Weight 344 lb 8 oz 335 lb 335 lb 323 lb - Constitutional no acute distress, morbidly obese - *Routine HEENT Exam Head: Present: normocephalic Eye: Present: EOMI ENT: Present: mucous membranes moist - *Routine Neck Exam Present: trachea midline. Absent: tracheal deviation - *Routine Respiratory Exam Present: decreased breath sounds, wheezes. Absent: accessory muscle use - *Routine Cardiovascular Exam Present: RRR - *Routine Abdominal Exam Present: soft, normoactive bowel sounds. Absent: tenderness, distended - *Routine Extremities Exam Present: edema, full ROM, pulses intact. Absent: cyanosis, clubbing, calf tenderness - *Routine Skin Exam Present: intact, dry, warm. Absent: cyanosis, erythema - *Routine Neurological Exam Present: alert, moving all extremities. Absent: motor deficit - Routine Psychiatric Exam Present: normal affect. Absent: auditory hallucinations, visual hallucinations Assessment and Plan (1) Acute on chronic diastolic heart failure Status: Acute Category: Medical Code(s): I50.33 - Acute on chronic diastolic (congestive) heart failure (2) COVID-19 virus infection Status: Acute Category: Medical Code(s): U07.1 - COVID-19 (3) Respiratory failure with hypoxia and hypercapnia Status: Acute Qualifiers: Chronicity: acute Qualified Code(s): J96.01 - Acute respiratory failure with hypoxia; J96.02 - Acute respiratory failure with hypercapnia Category: Medical Code(s): J96.91 - Respiratory failure, unspecified with hypoxia; J96.92 - Respiratory failure, unspecified with hypercapnia (4) COPD (chronic obstructive pulmonary disease) Status: Chronic Qualifiers: COPD type: emphysema Emphysema type: unspecified Qualified Code(s): J43.9 - Emphysema, unspecified Category: Medical Code(s): J44.9 - Chronic obstructive pulmonary disease, unspecified (5) HLD (hyperlipidemia) Status: Chronic Qualifiers: Hyperlipidemia type: mixed hyperlipidemia Qualified Code(s): E78.2 - Mixed hyperlipidemia Category: Medical Code(s): E78.5 - Hyperlipidemia, unspecified (6) HTN (hypertension) Status: Chronic Qualifiers: Hypertension type: essential hypertension Category: Medical Code(s): I10 - Essential (primary) hypertension (7) Diastolic dysfunction Status: Acute Category:
--- NOTE | 2021-03-25 16:16 | PC.NURSE ---
pt has rested well this shift. she has been up to the chair off and on. she has even been able to get up to bsc by herself . nad noted. pt is on room air at this time. lung sounds are diminisded throughout, bnowel sounds are active. pt is cooperative with care
[2021-03-25 16:33] LABS: POC Glucose,Bedside 102 (70-110)
--- NOTE | 2021-03-25 20:32 | PC.NURSE ---
consulted pharmacy [facility] for clarification of medication order Aj. Give both orders of 20 mg for a total of 40 mg.
[2021-03-25 21:10] LABS: POC Glucose,Bedside 133 (70-110)
[2021-03-26] VITALS (12 sets, daily range): BP systolic 104–136; BP diastolic 47–88; PULSE 86–120; RESP 15–24; TEMP 36.7–37.2; O2SAT 91–96; BMI 61.7
--- NOTE | 2021-03-26 03:08 | PC.NURSE ---
No acute changes. Pt has rested well this shift. Has been up to BSC with assist x1. Pt noted to be unsteady on feet. VSS. She is currently on 2L O2 NC. C/O discomfort x1 this shift. Medicated per aug. No other concerns. Willl continue to monitor.
[2021-03-26 05:09] LABS: Alanine Aminotransferase 39 U/L (12-78); Albumin/Globulin Ratio 0.9 (1.1-1.8); Alkaline Phosphatase 35 U/L (38-126); Anion Gap 8.5 mEq/L (5-15); Aspartate Amino Transferase 44 U/L (14-36); Bilirubin,Total 0.5 mg/dl (0.2-1.3); Blood Urea Nitrogen 54 mg/dl (7-17); Calcium 8.2 mg/dl (8.4-10.2); Carbon Dioxide 34 mmol/L (22.0-30.0); Chloride 98 mmol/L (98-107); Creatinine Clearance Estimated 66 mL/min (50-200); Estimated Glomerular Filt Rate 77 ml/min (>60); GFR (African American) 93 ML/MIN (>60); Globulin 3.3 g/dL (1.3-3.2); Glucose 87 mg/dl (74-100); Potassium 4.5 mmoL/L (3.5-5.1); Sodium 136 mmol/L (136-145); Total Protein,Serum 6.3 g/dl (6.3-8.2)
[2021-03-26 06:03] LABS: Basophils # 0.1 K/mm3 (0-0.2); Basophils % 0.8 % (0.1-2.0); Eosinophils # 0.1 K/mm3 (0.0-0.4); Eosinophils % 0.9 % (0.1-12.0); Hematocrit 42.5 % (37.0-47.0); Hemoglobin 13.6 g/dL (12.2-16.2); Lymphocytes # 2.4 K/mm3 (0.7-4.5); Lymphocytes % 17.1 % (10-50); Mean Corpuscular HGB Conc 31.9 g/dL (31.8-35.4); Mean Corpuscular Volume 97.1 fl (81-99); Mean Platelet Volume 7.9 fl (7.4-10.4); Neutrophils # 10.2 K/mm3 (1.8-7.8); Neutrophils % 74.1 % (37.0-80.0); Platelet Count 235 K/mm3 (142-424); Red Blood Count 4.38 M/mm3 (4.20-5.40); Red Cell Distribution Width 13.6 % (11.5-17.5); White Blood Count 13.8 K/mm3 (4.8-10.8)
[2021-03-26 06:22] LABS: POC Glucose,Bedside 73 (70-110)
[2021-03-26 11:07] LABS: POC Glucose,Bedside 102 (70-110)
--- NOTE | 2021-03-26 11:18 | HMH.PULMPN ---
Internal Medicine - PN: Subj *Date: 03/26/21 *Time: 11:18 Interval history: No acute respiratory events overnight. Patient continued to admit improvement in her symptoms. Exam - Constitutional Constitutional:: Present: no acute distress, comfortable - HENMT Exam HENMT: Present: normocephalic, moist mucous membranes - Eye Exam Eyes:: Present: normal appearance both eyes and related structures - Neck Exam Neck:: Present: normal visual inspection - Respiratory Exam Respiratory:: Present: able to speak in complete sentences, no respiratory distress, normal respiratory effort. Absent: wheezing - Cardiovascular Exam Cardiac:: Present: S1, S2 - GI Exam GI:: Present: soft - Skin Exam Skin: Present: warm, no rash - Neurological Exam Neurological: Present: alert, awake, normal cognition - Extremities Exam Extremities: Present: no cyanosis, no clubbing Assessment and Plan (1) Acute on chronic diastolic heart failure Status: Acute Category: Medical Code(s): I50.33 - Acute on chronic diastolic (congestive) heart failure (2) COVID-19 virus infection Status: Acute Category: Medical Code(s): U07.1 - COVID-19 (3) Respiratory failure with hypoxia and hypercapnia Status: Acute Qualifiers: Chronicity: acute Qualified Code(s): J96.01 - Acute respiratory failure with hypoxia; J96.02 - Acute respiratory failure with hypercapnia Category: Medical Code(s): J96.91 - Respiratory failure, unspecified with hypoxia; J96.92 - Respiratory failure, unspecified with hypercapnia (4) COPD (chronic obstructive pulmonary disease) Status: Chronic Qualifiers: COPD type: emphysema Emphysema type: unspecified Qualified Code(s): J43.9 - Emphysema, unspecified Category: Medical Code(s): J44.9 - Chronic obstructive pulmonary disease, unspecified (5) HLD (hyperlipidemia) Status: Chronic Qualifiers: Hyperlipidemia type: mixed hyperlipidemia Qualified Code(s): E78.2 - Mixed hyperlipidemia Category: Medical Code(s): E78.5 - Hyperlipidemia, unspecified (6) HTN (hypertension) Status: Chronic Qualifiers: Hypertension type: essential hypertension Category: Medical Code(s): I10 - Essential (primary) hypertension (7) Diastolic dysfunction Status: Acute Category: Medical Code(s): I51.89 - Other ill-defined heart diseases (8) Obesity Status: Acute Qualifiers: Obesity type: due to excess calories Obesity classification: adult class 3 (BMI >= 40) Serious obesity comorbidity presence: without serious comorbidity Body mass index: BMI 45.0-49.9 Qualified Code(s): E66.01 - Morbid (severe) obesity due to excess calories; Z68.42 - Body mass index [BMI] 45.0-49.9, adult Category: Medical Code(s): E66.9 - Obesity, unspecified - Assessment and plan all Dx Assessment and Plan for all problems:: #Acute hypoxic hypercarbic respiratory failure: #COVID-19 pneumonia: Ms. Badillo is a 46-year-old female significant smoking history carries a diagnosis of COPD, sleep apnea currently not using her BiPAP machine secondary to backorder presented to the hospital with worsening respiratory status and found to be in hypoxic hypercarbic respiratory failure needing intubation and mechanical ventilatory support, successfully extubated yesterday to noninvasive ventilation, wean to nasal cannula this morning and pulmonary was called for further management. Patient had significant hypercarbia admission with a pH of 7.110 PCO2 135. Hypercarbia spiteful appeared improved and patient alert and oriented x3 this morning while conversation. She does have mild expiratory wheeze. She continued to receive DuoNebs every 4 hours scheduled along with methylprednisolone. She also getting treated with ceftriaxone azithromycin x 5 days for possible community-acquired pneumonia along with remdesivir for COVID-19 pneumonia. Patient respiratory status continued to improve post extubation and she jennifer
--- NOTE | 2021-03-26 12:11 | PC.NURSE ---
Pt stated she had a sore on her coccyx area and a spot on her left lower back. Dressing applied to coccyx and area to her back. Photographs taken, verbal consent given verified consent with EWA Manzanares.
--- NOTE | 2021-03-26 12:47 | PC.NURSE ---
CENTRAL LINE REMOVED PER DR. QUINONES ORDER. REMOVED IN STERILE FASHION PER VICTOR HUGO, MANUAL PRESSURE HELD AND PT TOLERATED WELL. COVERED W/ STERILE DSG.
--- NOTE | 2021-03-26 14:13 | PC.NURSE ---
Report given to Leanna eBlle RN
[2021-03-26 16:09] LABS: POC Glucose,Bedside 108 (70-110)
--- NOTE | 2021-03-26 17:47 | HMH.ACPN2 ---
Internal Medicine - PN: Subj *Date: 03/26/21 *Time: 08:10 Interval history: pt laying in bed states she had a good night. Exam Vital signs and Labs for Last 24 Hours: Temp Pulse Resp BP Pulse Ox 98.1 F 98 H 24 136/88 92 L 03/26/21 16:00 03/26/21 16:00 03/26/21 16:00 03/26/21 16:00 03/26/21 16:00 Laboratory Results - last 24 hr 03/25/21 20:54: POC Glucose 133 H 03/26/21 04:37: Sodium 136, Potassium 4.5, Chloride 98, Carbon Dioxide 34 H, Anion Gap 8.5, BUN 54 H, Creatinine 0.80 D, Estimated Creat Clear 66, Estimated GFR 77, Est GFR ( Amer) 93 D, Glucose 87, Calcium 8.2 L, Total Bilirubin 0.5, AST 44 H D, ALT 39, Alkaline Phosphatase 35 L, Total Protein 6.3, Albumin 3.0 L, Globulin 3.3 H, Albumin/Globulin Ratio 0.9 L 03/26/21 04:37: WBC 13.8 H, RBC 4.38, Hgb 13.6, Hct 42.5, MCV 97.1, MCH 31.0, MCHC 31.9, RDW 13.6, Plt Count 235, MPV 7.9, Neut % (Auto) 74.1, Lymph % (Auto) 17.1, [place] % (Auto) 7.0, Eos % (Auto) 0.9, Baso % (Auto) 0.8, Neut # (Auto) 10.2 H, Lymph # (Auto) 2.4, [place] # (Auto) 1.0, Eos # (Auto) 0.1, Baso # (Auto) 0.1 03/26/21 06:15: POC Glucose 73 03/26/21 10:57: POC Glucose 102 03/26/21 15:56: POC Glucose 108 I & O for Last 24 hours: Intake & Output 03/24/21 03/25/21 03/26/21 03/27/21 11:59 11:59 11:59 11:59 Intake Total 340 / 340 1900 / 1900 1200 / 1200 360 / 360 Output Total 4625 / 4625 3800 / 3800 1500 / 1500 1500 / 1500 Balance -4285 / -4285 -1900 / -1900 -300 / -300 -1140 / -1140 Weight 335 lb 323 lb 326 lb 9 oz - Constitutional no acute distress, obese - *Routine HEENT Exam Head: Present: normocephalic Eye: Present: PERRL ENT: Present: mucous membranes moist - *Routine Neck Exam Present: supple. Absent: lymphadenopathy - *Routine Respiratory Exam Present: CTA bilaterally - *Routine Cardiovascular Exam Present: RRR - *Routine Abdominal Exam Present: soft, normoactive bowel sounds. Absent: tenderness - *Routine Extremities Exam Absent: cyanosis, clubbing, edema - *Routine Skin Exam Present: warm. Absent: rash - *Routine Neurological Exam Present: alert Assessment and Plan (1) Acute on chronic diastolic heart failure Status: Acute Category: Medical Code(s): I50.33 - Acute on chronic diastolic (congestive) heart failure (2) COVID-19 virus infection Status: Acute Category: Medical Code(s): U07.1 - COVID-19 (3) Respiratory failure with hypoxia and hypercapnia Status: Acute Qualifiers: Chronicity: acute Qualified Code(s): J96.01 - Acute respiratory failure with hypoxia; J96.02 - Acute respiratory failure with hypercapnia Category: Medical Code(s): J96.91 - Respiratory failure, unspecified with hypoxia; J96.92 - Respiratory failure, unspecified with hypercapnia (4) COPD (chronic obstructive pulmonary disease) Status: Chronic Qualifiers: COPD type: emphysema Emphysema type: unspecified Qualified Code(s): J43.9 - Emphysema, unspecified Category: Medical Code(s): J44.9 - Chronic obstructive pulmonary disease, unspecified (5) HLD (hyperlipidemia) Status: Chronic Qualifiers: Hyperlipidemia type: mixed hyperlipidemia Qualified Code(s): E78.2 - Mixed hyperlipidemia Category: Medical Code(s): E78.5 - Hyperlipidemia, unspecified (6) HTN (hypertension) Status: Chronic Qualifiers: Hypertension type: essential hypertension Category: Medical Code(s): I10 - Essential (primary) hypertension (7) Diastolic dysfunction Status: Acute Category: Medical Code(s): I51.89 - Other ill-defined heart diseases (8) Obesity Status: Acute Qualifiers: Obesity type: due to excess calories Obesity classification: adult class 3 (BMI >= 40) Serious obesity comorbidity presence: without serious comorbidity Body mass index: BMI 45.0-49.9 Qualified Code(s): E66.01 - Morbid (severe) obesity due to excess calories; Z68.42 - Body mass index [BMI] 45.0-49.9, adult Category: Medical
--- NOTE | 2021-03-26 20:11 | PC.NURSE ---
No acute changes since coming to floor at approx 1600.
[2021-03-26 22:07] LABS: POC Glucose,Bedside 109 (70-110)
[2021-03-27] VITALS (10 sets, daily range): BP systolic 107–125; BP diastolic 50–78; PULSE 79–120; RESP 17–20; TEMP 36.7–37.2; O2SAT 92–96; BMI 62.8
--- NOTE | 2021-03-27 03:52 | PC.NURSE ---
Patient A&Ox 4 has rested well t/o night. Pain has been controlled with PRN medication per aug. She had periods of 02 dropping to mid 80s when she was sleeping placed on 2L nasal canula patient recovered to 94-97%. Call dixon in reach will continue to monitor.
[2021-03-27 06:06] LABS: Chloride 102 mmol/L (98-107); Sodium 140 mmol/L (136-145)
[2021-03-27 06:08] LABS: Blood Urea Nitrogen 35 mg/dl (7-17); Creatinine Clearance Estimated 66 mL/min (50-200); Estimated Glomerular Filt Rate 77 ml/min (>60); GFR (African American) 93 ML/MIN (>60)
[2021-03-27 06:09] LABS: Alanine Aminotransferase 38 U/L (12-78); Alkaline Phosphatase 67 U/L (38-126); Anion Gap 9.2 mEq/L (5-15); Aspartate Amino Transferase 30 U/L (14-36); Bilirubin,Total 0.2 mg/dl (0.2-1.3); Calcium 8.1 mg/dl (8.4-10.2); Carbon Dioxide 33 mmol/L (22.0-30.0); Globulin 2.9 g/dL (1.3-3.2); Glucose 81 mg/dl (74-100); Potassium 4.2 mmoL/L (3.5-5.1); Total Protein,Serum 5.9 g/dl (6.3-8.2)
[2021-03-27 06:19] LABS: POC Glucose,Bedside 94 (70-110)
[2021-03-27 11:21] LABS: POC Glucose,Bedside 86 (70-110)
--- NOTE | 2021-03-27 11:50 | HMH.ACPN2 ---
Internal Medicine - PN: Subj *Date: 03/27/21 *Time: 11:50 Interval history: Patient relays an uneventful night. She is maintaining 92 to 95% saturations on room air, she does have dyspnea with exertion. Physical therapy continues to work with her. She is markedly deconditioned following prolonged ICU course. Exam Vital signs and Labs for Last 24 Hours: Temp Pulse Resp BP Pulse Ox 98.3 F 82 18 112/72 95 03/27/21 08:00 03/27/21 08:00 03/27/21 08:00 03/27/21 08:00 03/27/21 08:00 Laboratory Results - last 24 hr 03/26/21 15:56: POC Glucose 108 03/26/21 20:48: POC Glucose 109 03/27/21 05:15: Sodium 140, Potassium 4.2, Chloride 102, Carbon Dioxide 33 H, Anion Gap 9.2, BUN 35 H D, Creatinine 0.80, Estimated Creat Clear 66, Estimated GFR 77, Est GFR ( Amer) 93, Glucose 81, Calcium 8.1 L, Total Bilirubin 0.2, AST 30 D, ALT 38, Alkaline Phosphatase 67, Total Protein 5.9 L, Albumin 3.0 L, Globulin 2.9, Albumin/Globulin Ratio 1.0 L 03/27/21 05:59: POC Glucose 94 03/27/21 11:11: POC Glucose 86 I & O for Last 24 hours: Intake & Output 03/24/21 03/25/21 03/26/21 03/27/21 23:59 23:59 23:59 23:59 Intake Total 1180 / 1180 1920 / 1920 600 / 600 360 / 360 Output Total 5635 / 5635 1700 / 1700 1999 / 1999 Balance -4455 / -4455 220 / 220 -1400 / -1400 360 / 360 Weight 335 lb 323 lb 326 lb 9 oz 332 lb 9.6 oz - Constitutional no acute distress, morbidly obese, obese, cooperative - *Routine HEENT Exam Head: Present: normocephalic Eye: Present: EOMI, PERRL ENT: Present: mucous membranes moist - *Routine Neck Exam Present: supple. Absent: lymphadenopathy - *Routine Respiratory Exam Present: rhonchi. Absent: accessory muscle use, patient mechanically ventilated, respiratory distress - *Routine Cardiovascular Exam Present: RRR - *Routine Abdominal Exam Present: soft, obese. Absent: tenderness - *Routine Extremities Exam Absent: cyanosis, clubbing, edema - *Routine Skin Exam Present: warm. Absent: cyanosis, rash - *Routine Neurological Exam Present: alert, oriented X3, vision grossly intact, hearing grossly intact. Absent: altered mental status Assessment and Plan (1) Acute on chronic diastolic heart failure Status: Acute Category: Medical Code(s): I50.33 - Acute on chronic diastolic (congestive) heart failure (2) COVID-19 virus infection Status: Acute Category: Medical Code(s): U07.1 - COVID-19 (3) Respiratory failure with hypoxia and hypercapnia Status: Acute Qualifiers: Chronicity: acute Qualified Code(s): J96.01 - Acute respiratory failure with hypoxia; J96.02 - Acute respiratory failure with hypercapnia Category: Medical Code(s): J96.91 - Respiratory failure, unspecified with hypoxia; J96.92 - Respiratory failure, unspecified with hypercapnia (4) COPD (chronic obstructive pulmonary disease) Status: Chronic Qualifiers: COPD type: emphysema Emphysema type: unspecified Qualified Code(s): J43.9 - Emphysema, unspecified Category: Medical Code(s): J44.9 - Chronic obstructive pulmonary disease, unspecified (5) HLD (hyperlipidemia) Status: Chronic Qualifiers: Hyperlipidemia type: mixed hyperlipidemia Qualified Code(s): E78.2 - Mixed hyperlipidemia Category: Medical Code(s): E78.5 - Hyperlipidemia, unspecified (6) HTN (hypertension) Status: Chronic Qualifiers: Hypertension type: essential hypertension Category: Medical Code(s): I10 - Essential (primary) hypertension (7) Diastolic dysfunction Status: Acute Category: Medical Code(s): I51.89 - Other ill-defined heart diseases (8) Obesity Status: Acute Qualifiers: Obesity type: due to excess calories Obesity classification: adult class 3 (BMI >= 40) Serious obesity comorbidity presence: without serious comorbidity Body mass index: BMI 45.0-49.9 Qualified Code(s): E66.01 - Morbid (severe) obesity due to excess calories; Z68.42 - Body mass i
[2021-03-27 16:38] LABS: POC Glucose,Bedside 129 (70-110)
--- NOTE | 2021-03-27 16:40 | PC.NURSE ---
contacted MD because pt has been sleeping the majority of the day. She was alert and appropriate this morning but seems more lethargic as the shift has went by. I held her neurontin this afternoon because she was excessively tired. New orders received
[2021-03-27 17:02] LABS: ABG Base Excess 5.5 mmol/L (-2.4-2.3); ABG HCO3 29.7 mmhg (22.0-26.0); ABG Oxygen Saturation 95 % (90-100); ABG PCO2 44.9 mmhg (35.0-45.0); ABG PH 7.44 mmol/L (7.35-7.45); ABG PO2 70.3 mmhg (80-100); ABG TCO2 31.1 mmhg (23-27); Allen's Test Y; Oxygen r/a %; Source R/R
--- NOTE | 2021-03-27 17:21 | PC.NURSE ---
notified MD of ABG results. NNO
--- NOTE | 2021-03-27 18:56 | PC.NURSE ---
educated pt on compliance with treatment
[2021-03-27 20:56] LABS: POC Glucose,Bedside 89 (70-110)
[2021-03-28] VITALS (8 sets, daily range): BP systolic 117–126; BP diastolic 76–88; PULSE 64–94; RESP 16–18; TEMP 36.7–37.2; O2SAT 92–96; BMI 62.4
[2021-03-28 00:47] LABS: POC Glucose,Bedside 100 (70-110)
[2021-03-28 00:47] LABS: POC Glucose,Bedside 134 (70-110)
[2021-03-28 00:47] LABS: POC Glucose,Bedside 69 (70-110)
--- NOTE | 2021-03-28 02:33 | PC.NURSE ---
LATE ENTRY-PT S 0000 STRIP NOT OBTAINED.DUE TO PT REFUSES TO WEAR FLUMER. NURSE AWARE.
--- NOTE | 2021-03-28 06:15 | PC.NURSE ---
Patient alert and oriented x 4, rested well t/o night. Was placed on 2L NC due to oxygen sats in the low to mid 80's while sleeping, recovered to 97%. Patient has refused to wear her front desk monitor this shift. Call dixon in reach will continue to monitor.
[2021-03-28 07:28] LABS: Chloride 100 mmol/L (98-107); Potassium 4.7 mmoL/L (3.5-5.1); Sodium 137 mmol/L (136-145)
[2021-03-28 07:30] LABS: Blood Urea Nitrogen 19 mg/dl (7-17); Creatinine Clearance Estimated 87 mL/min (50-200); Estimated Glomerular Filt Rate 107 ml/min (>60); GFR (African American) 130 ML/MIN (>60)
[2021-03-28 07:31] LABS: Alanine Aminotransferase 39 U/L (12-78); Albumin Level 2.9 g/dl (3.5-5.0); Albumin/Globulin Ratio 1.2 (1.1-1.8); Alkaline Phosphatase 60 U/L (38-126); Anion Gap 8.7 mEq/L (5-15); Aspartate Amino Transferase 27 U/L (14-36); Bilirubin,Total 0.1 mg/dl (0.2-1.3); Calcium 8.4 mg/dl (8.4-10.2); Carbon Dioxide 33 mmol/L (22.0-30.0); Globulin 2.4 g/dL (1.3-3.2); Glucose 77 mg/dl (74-100); Total Protein,Serum 5.3 g/dl (6.3-8.2)
[2021-03-28 09:35] LABS: POC Glucose,Bedside 84 (70-110)
--- NOTE | 2021-03-28 12:55 | HMH.ACPN2 ---
Internal Medicine - PN: Subj *Date: 03/28/21 *Time: 12:56 Interval history: Patient has had some anxiety during the night. She relays some auditory hallucinations. She is clear and lucid this morning. Blood gas last night not demonstrate significant CO2 retention. She is maintaining decent saturations on room air. Exam Vital signs and Labs for Last 24 Hours: Temp Pulse Resp BP Pulse Ox 98.5 F 82 16 124/87 95 03/28/21 08:00 03/28/21 08:00 03/28/21 08:00 03/28/21 08:00 03/28/21 08:00 Laboratory Results - last 24 hr 03/23/21 20:02: POC Glucose 134 H 03/24/21 05:38: POC Glucose 69 L 03/25/21 16:29: POC Glucose 100 03/27/21 16:31: POC Glucose 129 H 03/27/21 16:39: Specimen Source R/r, O2 % r/a, ABG pH 7.44, ABG pCO2 44.9, ABG pO2 70.3 L, ABG HCO3 29.7 H, ABG Total CO2 31.1 H, ABG O2 Saturation 95, ABG Base Excess 5.5 H, Vaughn Test Y 03/27/21 20:41: POC Glucose 89 03/28/21 06:01: POC Glucose 84 03/28/21 06:04: Sodium 137, Potassium 4.7, Chloride 100, Carbon Dioxide 33 H, Anion Gap 8.7, BUN 19 H D, Creatinine 0.60 D, Estimated Creat Clear 87, Estimated GFR 107, Est GFR ( Amer) 130 D, Glucose 77, Calcium 8.4, Total Bilirubin 0.1 L, AST 27, ALT 39, Alkaline Phosphatase 60, Total Protein 5.3 L, Albumin 2.9 L, Globulin 2.4, Albumin/Globulin Ratio 1.2 I & O for Last 24 hours: Intake & Output 03/25/21 03/26/21 03/27/21 03/28/21 23:59 23:59 23:59 23:59 Intake Total 1920 / 1920 600 / 600 720 / 720 720 / 720 Output Total 1700 / 1700 2000 / 2000 Balance 220 / 220 -1400 / -1400 720 / 720 720 / 720 Weight 323 lb 326 lb 9 oz 332 lb 9.6 oz 330 lb 11.094 oz - Constitutional no acute distress, morbidly obese, cooperative - *Routine HEENT Exam Head: Present: normocephalic Eye: Present: EOMI, PERRL ENT: Present: mucous membranes moist - *Routine Neck Exam Present: supple. Absent: lymphadenopathy - *Routine Respiratory Exam Present: CTA bilaterally - *Routine Cardiovascular Exam Present: RRR - *Routine Abdominal Exam Present: soft, normoactive bowel sounds. Absent: tenderness - *Routine Extremities Exam Absent: cyanosis, clubbing, edema - *Routine Skin Exam Present: warm. Absent: rash - *Routine Neurological Exam Present: alert, oriented X3 Assessment and Plan (1) Acute on chronic diastolic heart failure Status: Acute Category: Medical Code(s): I50.33 - Acute on chronic diastolic (congestive) heart failure (2) COVID-19 virus infection Status: Acute Category: Medical Code(s): U07.1 - COVID-19 (3) Respiratory failure with hypoxia and hypercapnia Status: Acute Qualifiers: Chronicity: acute Qualified Code(s): J96.01 - Acute respiratory failure with hypoxia; J96.02 - Acute respiratory failure with hypercapnia Category: Medical Code(s): J96.91 - Respiratory failure, unspecified with hypoxia; J96.92 - Respiratory failure, unspecified with hypercapnia (4) COPD (chronic obstructive pulmonary disease) Status: Chronic Qualifiers: COPD type: emphysema Emphysema type: unspecified Qualified Code(s): J43.9 - Emphysema, unspecified Category: Medical Code(s): J44.9 - Chronic obstructive pulmonary disease, unspecified (5) HLD (hyperlipidemia) Status: Chronic Qualifiers: Hyperlipidemia type: mixed hyperlipidemia Qualified Code(s): E78.2 - Mixed hyperlipidemia Category: Medical Code(s): E78.5 - Hyperlipidemia, unspecified (6) HTN (hypertension) Status: Chronic Qualifiers: Hypertension type: essential hypertension Category: Medical Code(s): I10 - Essential (primary) hypertension (7) Diastolic dysfunction Status: Acute Category: Medical Code(s): I51.89 - Other ill-defined heart diseases (8) Obesity Status: Acute Qualifiers: Obesity type: due to excess calories Obesity classification: adult class 3 (BMI >= 40) Serious obesity comorbidity presence: without serious comorbidity Body mass index: BMI
--- NOTE | 2021-03-28 21:59 | PC.NURSE ---
Patients blood sugar at 2100 was 155 denies that she is not a diabetic and said she has never had insulin and that she did not want to take it at this time.
[2021-03-29 00:55] LABS: POC Glucose,Bedside 155 (70-110)
[2021-03-29 04:00] VITALS: BP 124/80; PULSE 70; RESP 16; TEMP 36.8; O2SAT 95
[2021-03-29 04:43] VITALS: BMI 62.4
[2021-03-29 04:59] VITALS: BMI 62.4
[2021-03-29 06:24] LABS: MANUAL DIFFERENTIAL MANUAL DIFFERENTIAL (MANUAL DIFF)
[2021-03-29 06:40] LABS: Basophils # 0.1 K/mm3 (0-0.2); Basophils % 0.5 % (0.1-2.0); Eosinophils # 0.1 K/mm3 (0.0-0.4); Eosinophils % 0.4 % (0.1-12.0); Hematocrit 38.9 % (37.0-47.0); Hemoglobin 12.4 g/dL (12.2-16.2); Lymphocytes # 2.8 K/mm3 (0.7-4.5); Lymphocytes % 25.1 % (10-50); Mean Corpuscular HGB Conc 31.9 g/dL (31.8-35.4); Mean Corpuscular Volume 97.2 fl (81-99); Mean Platelet Volume 8.1 fl (7.4-10.4); Monocytes # 0.6 K/mm3 (0.1-1.0); Monocytes % 5.4 % (1.7-9.3); Neutrophils # 7.6 K/mm3 (1.8-7.8); Neutrophils % 68.5 % (37.0-80.0); Platelet Count 232 K/mm3 (142-424); Red Cell Distribution Width 14.2 % (11.5-17.5); White Blood Count 11.1 K/mm3 (4.8-10.8)
[2021-03-29 06:48] LABS: Chloride 101 mmol/L (98-107); Potassium 4.5 mmoL/L (3.5-5.1); Sodium 137 mmol/L (136-145)
[2021-03-29 06:50] LABS: Alanine Aminotransferase 39 U/L (12-78); Aspartate Amino Transferase 26 U/L (14-36); Blood Urea Nitrogen 20 mg/dl (7-17); Creatinine Clearance Estimated 75 mL/min (50-200); Estimated Glomerular Filt Rate 90 ml/min (>60); GFR (African American) 109 ML/MIN (>60)
[2021-03-29 06:51] LABS: Albumin Level 3.1 g/dl (3.5-5.0); Albumin/Globulin Ratio 1.1 (1.1-1.8); Alkaline Phosphatase 61 U/L (38-126); Anion Gap 10.5 mEq/L (5-15); Calcium 8.5 mg/dl (8.4-10.2); Carbon Dioxide 30 mmol/L (22.0-30.0); Globulin 2.8 g/dL (1.3-3.2); Glucose 113 mg/dl (74-100); Total Protein,Serum 5.9 g/dl (6.3-8.2)
[2021-03-29 06:53] VITALS: PULSE 82; PULSE 86; O2SAT 92
[2021-03-29 07:01] LABS: Bilirubin,Total < 0.1 mg/dl (0.2-1.3)
[2021-03-29 07:35] VITALS: BP 128/82; PULSE 64; RESP 18; TEMP 36.8; O2SAT 92
[2021-03-29 07:39] LABS: Hypochromasia 1+; Lymphocytes % 33 % (10-50); Macrocytosis 1+; Monocytes % 9 % (2-9); Neutrophils % 58 % (42-76); Platelet Estimate Normal; Total Cells Counted 100
--- NOTE | 2021-03-29 09:41 | PC.NURSE ---
PT WILL NEED A ROLLING WALKER RATHER THAN A CANE DUE TO GATE AND MOBILITY ISSUES.
[2021-03-29 10:08] VITALS: BP 122/64; PULSE 107; RESP 18; TEMP 36.9; O2SAT 94
--- NOTE | 2021-03-29 11:32 | HMH.PULMPN ---
Internal Medicine - PN: Subj *Date: 03/29/21 *Time: 11:32 Interval history: No acute events overnight. Requesting clothing and to discuss social issues with psychiatric social worker Exam - Constitutional Constitutional:: Present: no acute distress - HENMT Exam HENMT: Present: normocephalic - Eye Exam Eyes:: Present: normal appearance both eyes and related structures - Neck Exam Neck:: Present: normal visual inspection - Respiratory Exam Respiratory:: Present: able to speak in complete sentences, no respiratory distress, crackles - Cardiovascular Exam Cardiac:: Present: S1, S2 - GI Exam GI:: Present: soft, obese - Skin Exam Skin: Present: warm, no rash - Neurological Exam Neurological: Present: alert, awake, normal cognition - Extremities Exam Extremities: Present: no cyanosis, no clubbing, edema - Psychiatric Exam Psychiatric: Present: normal affect Assessment and Plan (1) Acute on chronic diastolic heart failure Status: Acute Category: Medical Code(s): I50.33 - Acute on chronic diastolic (congestive) heart failure (2) COVID-19 virus infection Status: Acute Category: Medical Code(s): U07.1 - COVID-19 (3) Respiratory failure with hypoxia and hypercapnia Status: Acute Qualifiers: Chronicity: acute Qualified Code(s): J96.01 - Acute respiratory failure with hypoxia; J96.02 - Acute respiratory failure with hypercapnia Category: Medical Code(s): J96.91 - Respiratory failure, unspecified with hypoxia; J96.92 - Respiratory failure, unspecified with hypercapnia (4) COPD (chronic obstructive pulmonary disease) Status: Chronic Qualifiers: COPD type: emphysema Emphysema type: unspecified Qualified Code(s): J43.9 - Emphysema, unspecified Category: Medical Code(s): J44.9 - Chronic obstructive pulmonary disease, unspecified (5) HLD (hyperlipidemia) Status: Chronic Qualifiers: Hyperlipidemia type: mixed hyperlipidemia Qualified Code(s): E78.2 - Mixed hyperlipidemia Category: Medical Code(s): E78.5 - Hyperlipidemia, unspecified (6) HTN (hypertension) Status: Chronic Qualifiers: Hypertension type: essential hypertension Category: Medical Code(s): I10 - Essential (primary) hypertension (7) Diastolic dysfunction Status: Acute Category: Medical Code(s): I51.89 - Other ill-defined heart diseases (8) Obesity Status: Acute Qualifiers: Obesity type: due to excess calories Obesity classification: adult class 3 (BMI >= 40) Serious obesity comorbidity presence: without serious comorbidity Body mass index: BMI 45.0-49.9 Qualified Code(s): E66.01 - Morbid (severe) obesity due to excess calories; Z68.42 - Body mass index [BMI] 45.0-49.9, adult Category: Medical Code(s): E66.9 - Obesity, unspecified - Assessment and plan all Dx Assessment and Plan for all problems:: #Acute hypoxic hypercarbic respiratory failure: #COVID-19 pneumonia: Ms. Badillo is a 46-year-old female significant smoking history carries a diagnosis of COPD, sleep apnea currently not using her BiPAP machine secondary to backorder presented to the hospital with worsening respiratory status and found to be in hypoxic hypercarbic respiratory failure needing intubation and mechanical ventilatory support, successfully extubated yesterday to noninvasive ventilation, wean to nasal cannula this morning and pulmonary was called for further management. Patient had significant hypercarbia admission with a pH of 7.110 PCO2 135. Hypercarbia spiteful appeared improved and patient alert and oriented x3 this morning while conversation. She does have mild expiratory wheeze. She continued to receive DuoNebs every 4 hours scheduled along with methylprednisolone. She also completed ceftriaxone azithromycin x 5 days for possible community-acquired pneumonia along with remdesivir for COVID-19 pneumonia. Patient respiratory status continued to improve post extubation and she eventually weaned
--- NOTE | 2021-03-29 12:52 | HMH.DCSUM ---
General - General Admission date:: 03/16/21 Discharge date: 03/29/21 HPI HPI: 46 yr old female presented to ed with c/o soa cough, headache, pains in her hips and her feet. . Pt states she has a history of congestive heart failure. Reports 20 pound weight gain in the past 2 days with a large amount of swelling. per note Pt has a CPAP at home, but does not wear it. She says it always ends up on her head or on the floor. Denies fever. No known exposure to COVID-19. She has been vaccinated against COVID-19. Pt admitted for coivd and resp failure. this am pt was increase resp failure. pt seen and intubated per anesthesia. Hospital Course Hospital Course: Laboratory Tests 03/16/21 03/16/21 03/16/21 18:38 18:38 18:44 WBC 7.7 RBC 4.15 L Hgb 12.8 Hct 40.3 MCV 97.2 MCH 30.9 MCHC 31.8 RDW 14.5 Plt Count 265 MPV 8.6 Neut % (Auto) 70.7 Lymph % (Auto) 22.5 Braxton % (Auto) 4.9 Eos % (Auto) 1.2 Baso % (Auto) 0.7 Neut # (Auto) 5.4 Lymph # (Auto) 1.7 Braxton # (Auto) 0.4 Eos # (Auto) 0.1 Baso # (Auto) 0.1 Total Counted Neutrophils % (Manual) Band Neutrophils % Lymphocytes % (Manual) Monocytes % (Manual) Platelet Estimate RBC Morphology Hypochromasia Macrocytosis Stomatocytes Specimen Source Right radial O2 % 36 ABG pH 7.22 L* ABG pCO2 80.7 H ABG pO2 72.8 L ABG HCO3 32.4 H ABG Total CO2 34.8 H ABG O2 Saturation 93 ABG Base Excess 4.7 H Vaughn Test Acceptable ABG Lactate Vent Rate Tidal Volume PEEP Sodium 139 Potassium 4.4 Chloride 99 Carbon Dioxide 37 H Anion Gap 7.4 BUN 13 Creatinine 0.90 Estimated Creat Clear 67 Estimated GFR 67 Est GFR ( Amer) 81 Glucose 131 H POC Glucose Lactate Calcium 8.3 L Total Bilirubin < 0.1 L AST 27 ALT 18 Alkaline Phosphatase 89 Troponin I < 0.01 NT-Pro-B Natriuret Pep 442 H Total Protein 6.9 Albumin 3.7 Globulin 3.2 Albumin/Globulin Ratio 1.2 Urine Color Urine Appearance Urine pH Ur Specific [place] Urine Protein Urine Glucose (UA) Urine Ketones Urine Blood Urine Nitrate Urine Bilirubin Urine Urobilinogen Ur Leukocyte Esterase Urine RBC Urine WBC Ur Squamous Epith Cells Urine Bacteria SARS-CoV-2 (PCR) Influenza A Untype (PCR) Influenza Type B (PCR) 03/16/21 03/16/21 03/17/21 18:52 21:38 00:48 WBC RBC Hgb Hct MCV MCH MCHC RDW Plt Count MPV Neut % (Auto) Lymph % (Auto) Braxton % (Auto) Eos % (Auto) Baso % (Auto) Neut # (Auto) Lymph # (Auto) Braxton # (Auto) Eos # (Auto) Baso # (Auto) Total Counted Neutrophils % (Manual) Band Neutrophils % Lymphocytes % (Manual) Monocytes % (Manual) Platelet Estimate RBC Morphology Hypochromasia Macrocytosis Stomatocytes Specimen Source O2 % ABG pH ABG pCO2 ABG pO2 ABG HCO3 ABG Total CO2 ABG O2 Saturation ABG Base Excess Vaughn Test ABG Lactate Vent Rate Tidal Volume PEEP Sodium Potassium Chloride Carbon Dioxide Anion Gap BUN Creatinine Estimated Creat Clear Estimated GFR Est GFR ( Amer) Glucose POC Glucose Lactate Calcium Total Bilirubin AST ALT Alkaline Phosphatase Troponin I < 0.01 < 0.01 NT-Pro-B Natriuret Pep Total Protein Albumin Globulin Albumin/Globulin Ratio Urine Color Urine Appearance Urine pH Ur Specific [place] Urine Protein Urine Glucose (UA) Urine Ketones Urine Blood Urine Nitrate Urine Bilirubin Urine Urobilinogen Ur Leukocyte Esterase Urine RBC Urine WBC Ur Squamous Epith Cells Urine Bacteria SARS-CoV-2 (PCR) Detected A Influenza A Untype
[2021-03-29 13:05] LABS: POC Glucose,Bedside 131 (70-110)
[2021-03-29 16:58] LABS: POC Glucose,Bedside 139 (70-110)
== END 2021-03-29 13:46 | disposition home or self-care (01) | DRG 207 ==
LOC: ER 20:49 → 2ND 21:07 → ICU 03-17 08:56 → 2ND 03-26 14:05
PROVIDERS: Family Medicine; Internal Medicine Pulmonary Disease; Nurse Practitioner Family; Admitting Provider Emergency Medicine; Emergency Provider Emergency Medicine; PCP Emergency Medicine; Visit Provider Emergency Medicine
DX: U07.1 COVID-19 (principal); J96.01 Acute respiratory failure with hypoxia; J96.02 Acute respiratory failure with hypercapnia; I50.33 Acute on chronic diastolic (congestive) heart failure; J12.82 Pneumonia due to coronavirus disease 2019; Z68.44 Body mass index [BMI] 60.0-69.9, adult; E11.9 Type 2 diabetes mellitus without complications; Z79.4 Long term (current) use of insulin; F17.210 Nicotine dependence, cigarettes, uncomplicated; J43.9 Emphysema, unspecified; I11.0 Hypertensive heart disease with heart failure; F41.9 Anxiety disorder, unspecified; F32.A Depression, unspecified; E66.01 Morbid (severe) obesity due to excess calories; G47.30 Sleep apnea, unspecified; E03.9 Hypothyroidism, unspecified; K21.9 Gastro-esophageal reflux disease without esophagitis
CPT/HCPCS: 31500; 94002; 36556; 36415; 71045; 71275; 80053; 81001; 82803; 82962; 83605; 83880; 84484; 85007; 85014; 85018; 85025; 85048; 85049; 87070; 87081; 87205; 93005; 93306; 94003; 94640; 94660; 96374; 97110; 97116; 97163; 97530; 99284; C9803; J2704; Q9967; U0003; U0005

== ENCOUNTER → 2021-04-13 18:04 | Outpatient (CLI) | payer MEDICAID, SELFPAY | PROVIDERS: Visit Provider Nurse Practitioner Family | DX: N39.0 Urinary tract infection, site not specified (principal); J02.9 Acute pharyngitis, unspecified | CPT/HCPCS: 87086 ==

== ENCOUNTER → 2021-04-21 07:45 | Outpatient (CLI) | payer MEDICAID, SELFPAY ==
[2021-04-21 08:55] VITALS: PULSE 95; PULSE 97
== END ==
PROVIDERS: PCP Emergency Medicine; Visit Provider Nurse Practitioner Family
DX: U09.9 Post COVID-19 condition, unspecified (principal)
CPT/HCPCS: 94060; 94618; 94640; 94727; 94729

== ENCOUNTER 2021-05-23 07:59 | Outpatient (CLI) | payer MEDICAID, SELFPAY ==
[2021-05-23] VITALS (10 sets, daily range): BP systolic 116–162; BP diastolic 82–93; PULSE 83–98; RESP 20; TEMP 36.9; O2SAT 94–98; BMI 44.2
--- NOTE | 2021-05-23 08:01 | PC.NURSE ---
pharmacy called for infusion
--- NOTE | 2021-05-23 08:10 | PC.NURSE ---
consents for infusion signed and witnessed at this time
--- NOTE | 2021-05-23 08:42 | PC.NURSE ---
infusion arrived to ed
--- NOTE | 2021-05-23 08:50 | PC.NURSE ---
infusion started at this time
--- NOTE | 2021-05-23 09:35 | PC.NURSE ---
infusion complete at this time
== END 2021-05-23 10:37 | disposition home or self-care (01) ==
LOC: INF 08:00
PROVIDERS: PCP Emergency Medicine; Visit Provider Emergency Medicine
DX: U07.1 COVID-19 (principal); Z23 Encounter for immunization
CPT/HCPCS: 96365

== ENCOUNTER → 2021-06-15 14:02 | Outpatient (CLI) | payer MEDICAID, SELFPAY ==
[2021-06-15 15:14] LABS: Amphetamine/Metha Screen,Urine Negative ng/ml (<1000)
[2021-06-15 15:15] LABS: Barbiturates Screen,Urine Negative ng/ml (<200)
[2021-06-15 15:16] LABS: Benzodiazepines Screen,Urine Negative ng/ml (<200); Cannabinoid Screen,Urine Negative ng/ml (<50)
[2021-06-15 15:17] LABS: Cocaine Screen,Urine Negative ng/ml (<300)
[2021-06-15 15:18] LABS: Methadone Screen,Urine Negative ng/ml (<300); Opiate Screen,Urine Positive ng/ml (<300)
[2021-06-15 15:19] LABS: Phencyclidine Screen,Urine Negative ng/ml (<25)
== END ==
PROVIDERS: Visit Provider Emergency Medicine
DX: F41.9 Anxiety disorder, unspecified (principal)
CPT/HCPCS: 80305

== ENCOUNTER → 2021-10-22 16:44 | Outpatient (CLI) | payer MEDICAID, SELFPAY ==
[2021-10-22 13:44] LABS: Amphetamine/Metha Screen,Urine Negative ng/ml (<1000)
[2021-10-22 13:45] LABS: Barbiturates Screen,Urine Negative ng/ml (<200)
[2021-10-22 13:46] LABS: Benzodiazepines Screen,Urine Positive ng/ml (<200)
[2021-10-22 13:47] LABS: Cannabinoid Screen,Urine Negative ng/ml (<50)
[2021-10-22 13:48] LABS: Cocaine Screen,Urine Negative ng/ml (<300); Methadone Screen,Urine Negative ng/ml (<300)
[2021-10-22 13:49] LABS: Opiate Screen,Urine Negative ng/ml (<300)
[2021-10-22 13:50] LABS: Phencyclidine Screen,Urine Negative ng/ml (<25)
== END ==
PROVIDERS: PCP Emergency Medicine; Visit Provider Emergency Medicine
DX: G62.9 Polyneuropathy, unspecified (principal)
CPT/HCPCS: 80305

== ENCOUNTER → 2021-12-09 14:30 | Outpatient (CLI) | payer MEDICAID, SELFPAY ==
[2021-12-11 13:09] LABS: Rapid Plasma Reagin Ab Titer Non Reactive (NonRea<1:1)
[2021-12-24 22:18] LABS: Hep A Ab, IgM NEGATIVE; Hepatitis B Core Antibody IgM NEGATIVE; Hepatitis B Surface Antigen NEGATIVE; Hepatitis C Antibody <0.1
[2021-12-25 23:28] LABS: HIV Screen 4th Generation wRfx Non Reactive
== END ==
PROVIDERS: PCP Emergency Medicine; Visit Provider Obstetrics & Gynecology
DX: Z20.2 Contact with and (suspected) exposure to infections with a predominantly sexual mode of transmission (principal)
CPT/HCPCS: 36415; 80074; 86592; 86703; G0432

== ENCOUNTER 2022-01-03 23:04 | Inpatient (IN) | payer MEDICAID, SELFPAY ==
[2022-01-03 23:05] VITALS: BP 131/74; PULSE 105; RESP 31; TEMP 37.1; O2SAT 90; BMI 66.4
--- NOTE | 2022-01-03 23:22 | XR_ITS ---
PROCEDURE INFORMATION: Exam: XR Chest Exam date and time: 01/03/2022 11:40 PM Age: 46 years old Clinical indication: Shortness of breath; Additional info: Short of breath TECHNIQUE: Imaging protocol: Radiologic exam of the chest. Views: 1 view. COMPARISON: CR XR CHEST PORTABLE 03/24/2021 5:29 AM FINDINGS: Lungs: Pulmonary vascular congestion without overt pulmonary edema. No acute airspace consolidation, noting low lung volumes limits visualization of the lung bases. Pleural spaces: No large pleural effusion. No pneumothorax. Heart/Mediastinum: Cardiomediastinal silhouette is unchanged. Bones/joints: No acute osseous abnormality. IMPRESSION: Pulmonary vascular congestion without overt pulmonary edema.
--- NOTE | 2022-01-03 23:23 | PC.NURSE ---
Respiratory notified to complete trach care, suctioning, and trach O2 set up.
[2022-01-03 23:29] LABS: Coronavirus 19, PCR Not Detected (NotDetected); Influenza A, PCR Not Detected (NotDetected); Influenza B, PCR Not Detected (NotDetected)
[2022-01-03 23:30] VITALS: BP 122/65; PULSE 102; O2SAT 96
[2022-01-03 23:34] LABS: Basophils % 0.5 % (0.1-2.0); Eosinophils # 0.1 K/mm3 (0.0-0.4); Eosinophils % 0.7 % (0.1-12.0); Hematocrit 40.2 % (37.0-47.0); Hemoglobin 11.7 g/dL (12.2-16.2); Lymphocytes # 1.3 K/mm3 (0.7-4.5); Lymphocytes % 15.7 % (10-50); Mean Corpuscular HGB Conc 29.2 g/dL (31.8-35.4); Mean Corpuscular Volume 95.9 fl (81-99); Mean Platelet Volume 8.3 fl (7.4-10.4); Monocytes # 0.4 K/mm3 (0.1-1.0); Monocytes % 5.1 % (1.7-9.3); Neutrophils # 6.4 K/mm3 (1.8-7.8); Platelet Count 287 K/mm3 (142-424); Red Cell Distribution Width 16.1 % (11.5-17.5); White Blood Count 8.2 K/mm3 (4.8-10.8)
[2022-01-03 23:45] LABS: Alanine Aminotransferase 19 U/L (12-78); Albumin Level 3.8 g/dl (3.5-5.0); Albumin/Globulin Ratio 1.1 (1.1-1.8); Alkaline Phosphatase 80 U/L (38-126); Anion Gap 8.2 mEq/L (5-15); Aspartate Amino Transferase 21 U/L (14-36); Blood Urea Nitrogen 15 mg/dl (7-17); Calcium 8.8 mg/dl (8.4-10.2); Carbon Dioxide 36 mmol/L (22.0-30.0); Chloride 102 mmol/L (98-107); Creatinine Clearance Estimated 58 mL/min (50-200); Estimated Glomerular Filt Rate 67 ml/min (>60); GFR (African American) 81 ML/MIN (>60); Globulin 3.5 g/dL (1.3-3.2); Glucose 135 mg/dl (74-100); Potassium 5.2 mmoL/L (3.5-5.1); Sodium 141 mmol/L (136-145); Total Protein,Serum 7.3 g/dl (6.3-8.2)
[2022-01-03 23:49] LABS: Bilirubin,Total < 0.1 mg/dl (0.2-1.3)
[2022-01-03 23:51] LABS: C-Reactive Protein 48.5 mg/L (0-4)
--- NOTE | 2022-01-03 23:56 | HMH.EDGENADL ---
ED Disposition Clinical Impression: COVID-19 Pneumonia Qualifiers: Pneumonia type: due to unspecified organism Laterality: unspecified laterality Lung location: unspecified part of lung Qualified Code(s): J18.9 - Pneumonia, unspecified organism Acute and chronic respiratory failure Qualifiers: Respiratory failure complication: hypoxia and hypercapnia Qualified Code(s): J96.21 - Acute and chronic respiratory failure with hypoxia Disposition: Admitted As Inpatient Condition on Discharge: Fair Referrals: Beyn Chris MD [Primary Care Provider] - Time of Disposition: 00:12 - Critical Care Critical Care Time: No Attestation: On 01/03/22, the high probability of a clinically significant, sudden or life threatening deterioration of the following system(s) required my full and direct attention, intervention and personal management. The time I documented below is in addition to time spent performing reported procedures but includes the following listed in this critical care notation. Medical Decision Making - Medical Records Medical records reviewed: Yes: I reviewed the patient's medical records. - Estrada Inquiry Pt receiving controlled substance: No Vital Signs: 01/03/22 23:05 01/03/22 23:30 01/04/22 00:00 Temperature 98.8 F Temperature Source Oral Pulse Rate 102 H 95 H Pulse Rate [Right] 105 H Respiratory Rate 31 H Blood Pressure 122/65 122/62 Blood Pressure [Right Arm] 131/74 Blood Pressure Mean [Right Arm] 93 Blood Pressure Source [Right Arm] Automatic Cuff 02 Sat by Pulse Oximetry 90 L 96 96 Oxygen Delivery Method Room Air Trach Collar/ Tube Trach Collar/ Tube Oxygen Flow Rate (LPM) 8 8 01/04/22 00:30 Temperature Temperature Source Pulse Rate 94 H Pulse Rate [Right] Respiratory Rate Blood Pressure 120/67 Blood Pressure [Right Arm] Blood Pressure Mean [Right Arm] Blood Pressure Source [Right Arm] 02 Sat by Pulse Oximetry 97 Oxygen Delivery Method Trach Collar/ Tube Oxygen Flow Rate (LPM) 8 - Lab Data Lab Results 01/03/22 23:14: SARS-CoV-2 (PCR) Not detected, Influenza A Untype (PCR) Not detected, Influenza Type B (PCR) Not detected 01/03/22 23:15: WBC 8.2, RBC 4.20, Hgb 11.7 L, Hct 40.2, MCV 95.9, MCH 28.0, MCHC 29.2 L, RDW 16.1, Plt Count 287, MPV 8.3, Neut % (Auto) 78.0, Lymph % (Auto) 15.7, Rock % (Auto) 5.1, Eos % (Auto) 0.7, Baso % (Auto) 0.5, Neut # (Auto) 6.4, Lymph # (Auto) 1.3, Rock # (Auto) 0.4, Eos # (Auto) 0.1, Baso # (Auto) 0.0 01/03/22 23:15: Sodium 141, Potassium 5.2 H, Chloride 102, Carbon Dioxide 36 H, Anion Gap 8.2, BUN 15, Creatinine 0.90, Estimated Creat Clear 58, Estimated GFR 67, Est GFR ( Amer) 81, Glucose 135 H, Calcium 8.8, Total Bilirubin < 0.1 L, AST 21, ALT 19, Alkaline Phosphatase 80, Troponin I < 0.01, C-Reactive Protein 48.5 H, Total Protein 7.3, Albumin 3.8, Globulin 3.5 H, Albumin/Globulin Ratio 1.1 01/03/22 23:23: VBG pH 7.30 L, VBG pCO2 66.9 H, VBG pO2 76.2 H, VBG HCO3 32.1 H, VBG Total CO2 34.2 H, VBG O2 Saturation 94.8 H, VBG Base Excess 5.7 H Result diagrams: 01/03/22 23:15 01/03/22 23:15 Orders (Tests/Meds): ED MEDICATIONS Generic Name Dose Route Start Last Admin Trade Name Freq PRN Reason Stop Dose Admin Hydrocodone Bitart/Acetaminophen 1 tab 01/04/22 01:39 Hydrocodone/Apap 5/325 Mg Tablet PO 02/03/22 01:38 BID PRN pain Albuterol Sulfate 1 puff 01/04/22 01:39 Albuterol-Hfa 90mcg/Puff Inhaler 8gm IH 02/03/22 01:38 Q6H PRN Shortness Of Breath Or Wheezing Benzonatate 100 mg 01/04/22 01:39 Benzonatate 100mg Capsule PO 02/03/22 01:38 TID PRN cough Bromphen/Dextromethorphan/Pseudoeph 10 ml 01/04/22 01:39 Bromphen/Dm/Pse Cough Syrup 5ml PO 02/03/22 01:38 Q8H PRN cold symptoms Diazepam 10 mg 01/04/22 09:00 Diazepam 10mg Tablet PO 02/03/22 08:59 BID GERMAN Fluticasone/Umeclidinium/Vilanterol 0 puff 01/04/22 01:45 Fluticasone/Umeclidin
[2022-01-03 23:59] LABS: VBG Base Excess 5.7 mmol/L (-2.4-2.3); VBG HCO3 32.1 mmol/L (23-30); VBG Oxygen Saturation 94.8 % (50-70); VBG PO2 76.2 mmol/L (28-40); VBG Total CO2 34.2 mmol/L (23-27)
[2022-01-04] VITALS (12 sets, daily range): BP systolic 106–130; BP diastolic 62–92; PULSE 80–110; RESP 16–24; TEMP 36.5–37.1; O2SAT 90–99; BMI 67.6; BMI 67.4
[2022-01-04 00:02] LABS: VBG PCO2 66.9 mmol/L (35-51)
--- NOTE | 2022-01-04 00:03 | PC.NURSE ---
VBG RESULTS GIVEN TO
[2022-01-04 00:04] LABS: Troponin I < 0.01 ng/ml (0.00-0.034)
--- NOTE | 2022-01-04 00:45 | PC.NURSE ---
Pt med list confirmed. Despite external med list not reporting torsemide, pt states she does take 100mg daily.
--- NOTE | 2022-01-04 01:11 | PC.NURSE ---
Per respiratory therapy, patients oxygen fi02 has been lowered to 28% 5L, which according to RT, is 2L but due to the trach collar they must be set to 5L in order for the oxygen to be effective.
--- NOTE | 2022-01-04 01:43 | PC.NURSE ---
Updated patients mother on the phone regarding patient condition.
--- NOTE | 2022-01-04 01:54 | PC.NURSE ---
Attempted to call report at [phone], nurse receiving patient is on break. Will return call when available.
--- NOTE | 2022-01-04 02:34 | PC.NURSE ---
PT ARRIVED VIA STRETCHER AT THIS TIME
[2022-01-04 02:50] LABS: Troponin I < 0.01 ng/ml (0.00-0.034)
--- NOTE | 2022-01-04 05:04 | PC.NURSE ---
Pt a + o x4. Pt tolerating trach collar at 28% FIo2, 5 L well with sats >90%. Pt c/o generalized aches pain and cough. PRN pain medication administered per MAR. Pt refusing to use BSC. Pt educated on oxygen needs but continues to ambulate to BR with standby assist. Call light within reach.
[2022-01-04 06:34] LABS: Basophils # 0.1 K/mm3 (0-0.2); Basophils % 0.9 % (0.1-2.0); Eosinophils % 0.4 % (0.1-12.0); Hematocrit 40.1 % (37.0-47.0); Hemoglobin 12.1 g/dL (12.2-16.2); Lymphocytes # 0.5 K/mm3 (0.7-4.5); Lymphocytes % 5.2 % (10-50); Mean Corpuscular HGB Conc 30.2 g/dL (31.8-35.4); Mean Corpuscular Hemoglobin 28.5 pg (27.0-31.2); Mean Corpuscular Volume 94.6 fl (81-99); Mean Platelet Volume 7.7 fl (7.4-10.4); Monocytes # 0.2 K/mm3 (0.1-1.0); Monocytes % 2.4 % (1.7-9.3); Neutrophils # 9.3 K/mm3 (1.8-7.8); Neutrophils % 91.2 % (37.0-80.0); Platelet Count 239 K/mm3 (142-424); Red Blood Count 4.24 M/mm3 (4.20-5.40); Red Cell Distribution Width 16.2 % (11.5-17.5); White Blood Count 10.2 K/mm3 (4.8-10.8)
[2022-01-04 06:39] LABS: Chloride 101 mmol/L (98-107); Potassium 5.8 mmoL/L (3.5-5.1); Sodium 139 mmol/L (136-145)
[2022-01-04 06:42] LABS: Anion Gap 7.8 mEq/L (5-15); Blood Urea Nitrogen 17 mg/dl (7-17); Calcium 8.8 mg/dl (8.4-10.2); Carbon Dioxide 36 mmol/L (22.0-30.0); Creatinine Clearance Estimated 66 mL/min (50-200); Estimated Glomerular Filt Rate 77 ml/min (>60); GFR (African American) 93 ML/MIN (>60); Glucose 166 mg/dl (74-100)
[2022-01-04 06:48] LABS: MANUAL DIFFERENTIAL MANUAL DIFFERENTIAL (MANUAL DIFF)
[2022-01-04 08:01] LABS: Lymphocytes % 9 % (10-50); Monocytes % 3 % (2-9); Neutrophils % 88 % (42-76); Platelet Estimate Normal; RBC Morphology Normal; Total Cells Counted 100
[2022-01-04 08:50] LABS: Adenovirus,PCR Not Detected (NotDetected); Bordetella Pertussis Not Detected (NotDetected); Chlamydophila Pneumoniae, PCR Not Detected (NotDetected); Coronavirus 19, PCR Not Detected (NotDetected); Coronavirus 229E Not Detected (NotDetected); Coronavirus NL63 Not Detected (NotDetected); Coronavirus OC43 Not Detected (NotDetected); Coronovirus HKU1,PCR Not Detected (NotDetected); Human Metapneumovirus Not Detected (NotDetected); Influenza A, PCR Not Detected (NotDetected); Influenza AH1, 2009 Not Detected (NotDetected); Influenza AH1, PCR Not Detected (NotDetected); Influenza AH3,PCR Not Detected (NotDetected); Influenza B, PCR Not Detected (NotDetected); Mycoplasma Pneumoniae, PCR Not Detected (NotDetected); Parainfluenza 1, PCR Not Detected (NotDetected); Parainfluenza 2, PCR Not Detected (NotDetected); Parainfluenza 3, PCR Not Detected (NotDetected); Parainfluenza 4, PCR Not Detected (NotDetected); Respiratory Syncytial Virus Not Detected (NotDetected); Rhinovirus/Enterovirus Not Detected (NotDetected)
--- NOTE | 2022-01-04 10:30 | HMH.PHAVTE ---
[facility] Pharmacy VTE Monitoring - Patient Demographics Admission date: 01/04/22 Report Date: 01/04/22 Time: 10:30 Allergies/Adverse Reactions: Patient Allergies No Known Allergies Allergy (Verified 12/21/21 09:02) Height: 1.55 m Weight: 162.431 kg Patient Problems: Current Active Problems (Last Updated 11/21/17 @ 08:23 by OSIRIS Alarcon) Pneumonia (Acute) Acute and chronic respiratory failure (Acute) COVID-19 (Acute) - VTE Risk Labs: VTE Related Lab Results Hgb 12.1 g/dL (12.2-16.2) L 01/04/22 06:07 Hct 40.1 % (37.0-47.0) 01/04/22 06:07 Plt Count 239 K/mm3 (142-424) 01/04/22 06:07 BUN 17 mg/dl (7-17) 01/04/22 06:07 Creatinine 0.80 mg/dl (0.52-1.04) 01/04/22 06:07 Estimated Creat Clear 66 mL/min (50-200) 01/04/22 06:07 - Prophylaxis VTE Prophylaxis Ordered?: Yes Types of VTE Prophylaxis: TEDS Knee High Location of Applied Device: Bilateral Lower Extremeties
--- NOTE | 2022-01-04 14:09 | HMH.HP ---
*Admission Date: 01/04/22 *Chief complaint: SOA *History of present illness: 46-year-old female patient presented to the [facility] emergency department with reports of shortness of breath, headache, nausea, and body aches. She reports testing positive for COVID on a home COVID test 5 days prior. She reports she is progressively worsened since then and he started wheezing. She reports using albuterol inhaler and nebulizers with no effect. She denies fever but does admit to chills/body aches. She reports checking oxygen saturation at home and sats were in the 60s. She is not on home oxygen but has used as needed and was still increasingly short of breath. She does have a tracheostomy placed in July after prolonged intubation. Chest x-ray reveals: FINDINGS: Lungs: Pulmonary vascular congestion without overt pulmonary edema. No acute airspace consolidation, noting low lung volumes limits visualization of the lung bases. Pleural spaces: No large pleural effusion. No pneumothorax. Heart/Mediastinum: Cardiomediastinal silhouette is unchanged. Bones/joints: No acute osseous abnormality. IMPRESSION: Pulmonary vascular congestion without overt pulmonary edema. Electronically signed by Leanna Ferrera MD She did receive with Romycin, ceftriaxone, and methylprednisolone IV and DuoNebs. Heart rate 105, respiratory rate 31, pneumonia. [facility] History I have reviewed the patient's past medical history: Yes Medical History: Reports:: Anxiety, Asthma, Congestive Heart Failure, Depression, Gastroesophageal Reflux Disease(GERD), Hyperlipidemia, Hypertension, Migraine Denies:: Diabetes Mellitus Type 1, Diabetes Mellitus Type 2, Internal Pacemaker, Seizures *Have you ever received a pneumonia vaccine?: Yes *Have you received a flu vaccine this season?: Yes Other Medical History: Reports: Hypothyroidism, Other Laterality Cases: Left: Arthroscopy Knee Other Surgeries: Yes: Appendectomy, CABG, Cholecystectomy, Colonoscopy, Diagnostic Lap, Hernia Repair, Hysterectomy-Total, Hysterectomy-Partial. No: Pacemaker. Comment Only: Other (knee replacement, exploratory laparotomy) Amputation: No Fractures: No - *Social History Smoking Status: Former smoker Tobacco Type: cigarettes # Packs/Day (cigarettes): 1 #Yrs smoked (if former smoker): 25 Smoking End Date: august 2021 Alcohol Intake: current Alcohol Intake Frequency:: holidays/special occasions only Substance Use Type: marijuana *Occupational Status:: disabled Housing: apartment Household Members: family *Travel in the last 8 weeks: None - Psychiatric History Pschychiatric History:: Reports:: Anxiety, Depression Family Hx:: Unable to obtain Review of Systems - Review of Systems Review of systems:: pertinent systems reviewed and negative unless documented below - Constitutional Reports body ache(s), Reports chills, Reports fatigue, Reports headache(s), Denies fever(s) - Eyes Denies blurry vision, Denies double vision - ENT Denies abnormal hearing, Denies difficulty swallowing - *Cardiovascular Reports shortness of breath, Reports shortness of breath with activity, Denies chest pain, Denies chest pain with activity - *Respiratory Reports change in phlegm color, Reports chest congestion, Reports cough, Reports shortness of breath, Reports shortness of breath with activity - *Gastrointestinal Denies abdominal pain, Denies change in bowel habits - *Musculoskeletal Denies decreased muscle mass, Denies joint swelling - Integumentary/Breasts Denies change in skin color, Denies new lesions - *Neurologic Reports headache(s), Denies numbness, Denies tingling - Psychiatric Denies hearing things others do not hear, Denies behavioral changes, Denies change in appetite - Endocrine Denies cold intolerance, Denies excessive sweating - Hematologic/Lymphatic Denies easy bleeding, Denies easy bruising - Allergic/Immunologic Denies GI upset with certain foods, Drew
--- NOTE | 2022-01-04 16:01 | PC.NURSE ---
Report given to Lien Fox RN who assumes care of patient at this time
--- NOTE | 2022-01-04 16:01 | PC.NURSE ---
Patient resting comfortably in bed at this time, has been up independently in room this shift, remains on trach collar, lung sounds with scattered rhonchi, denies any soa, c/o headache this shift, treated with prn meds per emar with good results, voids per BR without difficulty, good urine output, vss.
--- NOTE | 2022-01-04 16:40 | HMH.PULMCON ---
*Admission Date: 01/04/22 [facility] History Medical History: Reports:: Anxiety, Asthma, Congestive Heart Failure, Depression, Gastroesophageal Reflux Disease(GERD), Hyperlipidemia, Hypertension, Migraine Denies:: Diabetes Mellitus Type 1, Diabetes Mellitus Type 2, Internal Pacemaker, Seizures *Have you ever received a pneumonia vaccine?: Yes *Have you received a flu vaccine this season?: Yes Other Medical History: Reports: Hypothyroidism, Other Laterality Cases: Left: Arthroscopy Knee Other Surgeries: Yes: Appendectomy, CABG, Cholecystectomy, Colonoscopy, Diagnostic Lap, Hernia Repair, Hysterectomy-Total, Hysterectomy-Partial. No: Pacemaker. Comment Only: Other (knee replacement, exploratory laparotomy) Amputation: No Fractures: No - *Social History Smoking Status: Former smoker Tobacco Type: cigarettes # Packs/Day (cigarettes): 1 #Yrs smoked (if former smoker): 25 Smoking End Date: august 2021 Alcohol Intake: current Alcohol Intake Frequency:: holidays/special occasions only Substance Use Type: marijuana *Occupational Status:: disabled Housing: apartment Household Members: family *Travel in the last 8 weeks: None - Psychiatric History Pschychiatric History:: Reports:: Anxiety, Depression Family Hx:: Unable to obtain Meds Home Medications Medication Instructions Recorded Confirmed Type Albuterol Sulfate [Albuterol 0.63 mg INHALATION Q6H PRN 03/16/21 01/04/22 History Sulfate 0.63mg/3ml Neb] albuterol sulfate 90 mcg/actuation 1 puff INHALATION Q6H PRN #8.5 g 12/24/21 01/04/22 Rx aerosol inhaler benzonatate 100 mg capsule 100 mg PO TID PRN #30 cap 12/24/21 01/04/22 Rx iwpvfmxzqtzuppb-tqdvulzxguodqmv-KJ 10 ml PO Q8H PRN #120 ml 12/24/21 01/04/22 Rx 2 mg-30 mg-10 mg/5 mL oral syrup gabapentin 800 mg tablet 800 mg PO TID #90 tab 12/24/21 01/04/22 Rx hydrocodone 5 mg-acetaminophen 325 1 tab PO BID PRN #60 tab 12/24/21 01/04/22 Rx mg tablet lamotrigine 100 mg tablet 100 mg PO DAILY #90 tab 12/24/21 01/04/22 Rx levothyroxine 25 mcg tablet 25 mcg PO DAILY #90 tab 12/24/21 01/04/22 Rx promethazine 25 mg tablet 25 mg PO Q8H PRN #30 tab 12/24/21 01/04/22 Rx vilazodone 40 mg tablet 40 mg PO DAILY #90 tab 12/24/21 01/04/22 Rx Fluticasone/Umeclidin/Vilanter 1 puff PO DAILY 01/04/22 01/04/22 History [Trelegy Ellipta] Nirmatrelvir/Ritonavir [Paxlovid 1 each PO BID 01/04/22 01/04/22 History 150-100 mg Pack (Eua)] Omeprazole [Omeprazole 40mg 40 mg PO DAILY 01/04/22 01/04/22 History Capsule] SUMAtriptan succinate [Sumatriptan 100 mg PO DAILYP PRN 01/04/22 01/04/22 History Succinate] Ziprasidone HCl 60 mg PO BID 01/04/22 01/04/22 History diazePAM [Diazepam 10 mg tablet] 10 mg PO BID 01/04/22 01/04/22 History lisinopriL [Lisinopril] 10 mg PO DAILY 01/04/22 01/04/22 History Allergies Allergy/AdvReac Type Severity Reaction Status Date / Time No Known Allergies Allergy Verified 12/21/21 09:02 Internal Medicine - CN: Reslt - Labs CBC & Chem 7: 01/04/22 06:07 01/04/22 06:07 Labs: Short CBC 01/03/22 01/04/22 Range/Units 23:15 06:07 WBC 8.2 10.2 (4.8-10.8) K/mm3 Hgb 11.7 L 12.1 L (12.2-16.2) g/dL Hct 40.2 40.1 (37.0-47.0) % Plt Count 287 239 (142-424) K/mm3 BMP 01/03/22 01/04/22 23:15 06:07 Sodium 141 139 Potassium 5.2 H 5.8 H Chloride 102 101 Carbon Dioxide 36 H 36 H BUN 15 17 Creatinine 0.90 0.80 Glucose 135 H 166 H D Calcium 8.8 8.8 Cardiac Enzymes 01/03/22 01/04/22 Range/Units 23:15 02:12 Troponin I < 0.01 < 0.01 (0.00-0.034) ng/ml Liver Function 01/03/22 Range/Units 23:15 Total Bilirubin < 0.1 L (0.2-1.3) mg/dl AST 21 (14-36) U/L ALT 19 (12-78) U/L Alkaline Phosphatase 80 (38-126) U/L Albumin 3.8 (3.5-5.0) g/dl - ABG Interpretation ABG results: 01/03/22 23:23 VBG pH 7.30 L VBG pCO2 66.9 H VBG pO2 76.2 H VBG HCO3 32.1 H VBG Total CO2 34.2 H VBG O2 Saturation 94.8 H VBG Base Exc
[2022-01-05] VITALS: BP 109/64; PULSE 93; RESP 19; TEMP 36.6; O2SAT 93
[2022-01-05 04:00] VITALS: BP 119/74; PULSE 105; RESP 18; TEMP 36.9; O2SAT 91
--- NOTE | 2022-01-05 05:23 | PC.NURSE ---
No acute changes. Pt tolerating 5L, 28% FIo2 via trach collar well with sats >90%. Pt c/o a FERNANDES 1x this shift, tylenol administered per AUG. RT suctioned pt 1x during shift. Ex rhonchi noted t/o lungs. Call light within reach.
[2022-01-05 06:15] LABS: Chloride 96 mmol/L (98-107)
[2022-01-05 06:16] LABS: Potassium 5.6 mmoL/L (3.5-5.1); Sodium 140 mmol/L (136-145)
[2022-01-05 06:18] LABS: Blood Urea Nitrogen 32 mg/dl (7-17); Creatinine Clearance Estimated 58 mL/min (50-200); Estimated Glomerular Filt Rate 67 ml/min (>60); GFR (African American) 81 ML/MIN (>60)
[2022-01-05 06:19] LABS: Calcium 8.8 mg/dl (8.4-10.2); Glucose 132 mg/dl (74-100)
[2022-01-05 06:22] LABS: Basophils # 0.2 K/mm3 (0-0.2); Basophils % 1.4 % (0.1-2.0); Eosinophils % 0.3 % (0.1-12.0); Lymphocytes % 9.3 % (10-50); Mean Corpuscular Hemoglobin 28.1 pg (27.0-31.2); Mean Corpuscular Volume 93.6 fl (81-99); Mean Platelet Volume 7.9 fl (7.4-10.4); Monocytes # 0.6 K/mm3 (0.1-1.0); Monocytes % 5.6 % (1.7-9.3); Neutrophils # 8.8 K/mm3 (1.8-7.8); Neutrophils % 83.5 % (37.0-80.0); Platelet Count 288 K/mm3 (142-424); Red Blood Count 4.28 M/mm3 (4.20-5.40); White Blood Count 10.5 K/mm3 (4.8-10.8)
[2022-01-05 06:26] LABS: Anion Gap 9.6 mEq/L (5-15); Carbon Dioxide 40 mmol/L (22.0-30.0)
[2022-01-05 07:45] LABS: ABG Base Excess 10.8 mmol/L (-2.4-2.3); ABG HCO3 36.5 mmhg (22.0-26.0); ABG Oxygen Saturation 84 % (90-100); ABG PH 7.35 mmol/L (7.35-7.45); ABG TCO2 38.6 mmhg (23-27)
[2022-01-05 07:46] LABS: Allen's Test Acceptable; Oxygen 28% %; Source Left Radial
[2022-01-05 07:48] LABS: ABG PCO2 68.4 mmhg (35.0-45.0); ABG PO2 49.5 mmhg (80-100)
[2022-01-05 07:55] VITALS: BP 159/93; PULSE 93; RESP 16; TEMP 36.7; O2SAT 93
--- NOTE | 2022-01-05 08:24 | XR_ITS ---
FINAL REPORT CLINICAL HISTORY: COVID..cough..sob COMPARISON: 01/03/2022 FINDINGS: A tracheostomy tube is present. The heart size is normal. The mediastinum is normal. There is mild right lung base atelectasis or pneumonia. There are no pleural effusions. There is no pneumothorax. There is no osseous abnormality. IMPRESSION: Mild right base atelectasis or pneumonia. Reviewed, Interpreted and Dictated by Pranay Miller III, MD Transcribed by Quentin Child Authenticated and [facility]
--- NOTE | 2022-01-05 09:16 | HMH.PULMPN ---
Internal Medicine - PN: Subj *Date: 01/05/22 *Time: 10:08 Interval history: No acute respiratory vents overnight. Continued improvement in her respiratory symptoms. Exam - Constitutional Constitutional:: Present: no acute distress, comfortable - HENMT Exam HENMT: Present: normocephalic - Eye Exam Eyes:: Present: normal appearance both eyes and related structures - Neck Exam Neck:: Present: normal visual inspection - Respiratory Exam Respiratory:: Present: able to speak in complete sentences, no respiratory distress. Absent: wheezing - Cardiovascular Exam Cardiac:: Present: S1, S2 - GI Exam GI:: Present: soft - Skin Exam Skin: Present: warm, no rash - Neurological Exam Neurological: Present: alert, awake - Extremities Exam Extremities: Present: no cyanosis, no clubbing, no edema, edema Assessment and Plan (1) Obesity, morbid Status: Acute Category: Medical Code(s): E66.01 - Morbid (severe) obesity due to excess calories (2) Acute and chronic respiratory failure Status: Acute Qualifiers: Respiratory failure complication: hypoxia and hypercapnia Qualified Code(s): J96.21 - Acute and chronic respiratory failure with hypoxia; J96.22 - Acute and chronic respiratory failure with hypercapnia Category: Medical Code(s): J96.20 - Acute and chronic respiratory failure, unspecified whether with hypoxia or hypercapnia (3) COVID-19 Status: Acute Category: Medical Code(s): U07.1 - COVID-19 (4) Pneumonia Status: Acute Qualifiers: Pneumonia type: due to unspecified organism Laterality: unspecified laterality Lung location: unspecified part of lung Qualified Code(s): J18.9 - Pneumonia, unspecified organism Category: Medical Code(s): J18.9 - Pneumonia, unspecified organism (5) Congestive heart failure Status: Acute Qualifiers: Heart failure type: unspecified Heart failure chronicity: unspecified Qualified Code(s): I50.9 - Heart failure, unspecified Category: Medical Code(s): I50.9 - Heart failure, unspecified (6) Tracheostomy in place Status: Acute Category: Medical Code(s): Z93.0 - Tracheostomy status (7) Tobacco abuse Status: Chronic Category: Medical Code(s): Z72.0 - Tobacco use (8) Severe sepsis Status: Acute Category: Medical Code(s): A41.9 - Sepsis, unspecified organism; R65.20 - Severe sepsis without septic shock - Assessment and plan all Dx Assessment and Plan for all problems:: #Acute on chronic hypoxic respiratory failure: #Community-acquired pneumonia: Ms. Badillo is a 46-year-old female history of COVID-19 pneumonia, severe obstructive sleep apnea hypercarbic respiratory failure, status post tracheostomy performed in July 2021 and has been trach dependent since then advised to lose weight, presented to the hospital with worsening respiratory distress and pulmonary was called for further management. Patient states that her mom was tested positive and she was in close contact at home COVID-19 testing from December 28 resulted positive. Patient admits cough and worsening productive phlegm. Had PCR testing x2 negative on this hospital admission. Her prior PFTs before tracheostomy did not show any evidence of obstructive lung disease, showed nonspecific restriction. Chest x-ray from this admission, no dense consolidation, increased vascular congestion. Auscultation revealed bilateral diffuse expiratory wheezing. Patient appeared to be in respiratory distress. Etiology of this patient's current respiratory failure is likely combination of community-acquired pneumonia and volume overload. Her ABG on admission also showed hypercarbic respiratory failure. Interval update: Continued improvement in her respiratory status. Improving oxygen requirements, weaned to 2 L trach collar this morning. Received 2 mg IV Bumex yesterday. Continue to receive Trelegy, inhaler technique training provided today. Plan: -Continue nasal cannula O2
[2022-01-05 09:30] VITALS: O2SAT 94
--- NOTE | 2022-01-05 10:54 | HMH.DCSUM ---
General - General Admission date:: 01/04/22 Discharge date: 01/05/22 HPI HPI: 46-year-old female patient presented to the [facility] emergency department with reports of shortness of breath, headache, nausea, and body aches. She reports testing positive for COVID on a home COVID test 5 days prior. She reports she is progressively worsened since then and he started wheezing. She reports using albuterol inhaler and nebulizers with no effect. She denies fever but does admit to chills/body aches. She reports checking oxygen saturation at home and sats were in the 60s. She is not on home oxygen but has used as needed and was still increasingly short of breath. She does have a tracheostomy placed in July after prolonged intubation. Chest x-ray reveals: FINDINGS: Lungs: Pulmonary vascular congestion without overt pulmonary edema. No acute airspace consolidation, noting low lung volumes limits visualization of the lung bases. Pleural spaces: No large pleural effusion. No pneumothorax. Heart/Mediastinum: Cardiomediastinal silhouette is unchanged. Bones/joints: No acute osseous abnormality. IMPRESSION: Pulmonary vascular congestion without overt pulmonary edema. Electronically signed by Leanna Ferrera MD She did receive with Romycin, ceftriaxone, and methylprednisolone IV and DuoNebs. Heart rate 105, respiratory rate 31, pneumonia. Hospital Course Hospital Course: 46-year-old female patient presented to the [facility] emergency department with reports of shortness of breath, headache, nausea, and body aches. She reports testing positive for COVID on a home COVID test 5 days prior. She reports she is progressively worsened since then and he started wheezing. She reports using albuterol inhaler and nebulizers with no effect. She denies fever but does admit to chills/body aches. She reports checking oxygen saturation at home and sats were in the 60s. 01/03/2023 chest x-ray: IMPRESSION: Pulmonary vascular congestion without overt pulmonary edema. Electronically signed by Leanna Ferrera MD Pulmonology has seen and recommends: Assessment and Plan for all problems:: #Acute on chronic hypoxic respiratory failure: #Community-acquired pneumonia: Ms. Badillo is a 46-year-old female history of COVID-19 pneumonia, severe obstructive sleep apnea hypercarbic respiratory failure, status post tracheostomy performed in July 2021 and has been trach dependent since then advised to lose weight, presented to the hospital with worsening respiratory distress and pulmonary was called for further management. Patient states that her mom was tested positive and she was in close contact at home COVID-19 testing from December 28 resulted positive. Patient admits cough and worsening productive phlegm. Had PCR testing x2 negative on this hospital admission. Her prior PFTs before tracheostomy did not show any evidence of obstructive lung disease, showed nonspecific restriction. Chest x-ray from this admission, no dense consolidation, increased vascular congestion. Auscultation revealed bilateral diffuse expiratory wheezing. Patient appeared to be in respiratory distress. Etiology of this patient's current respiratory failure is likely combination of community-acquired pneumonia and volume overload. Her ABG on admission also showed hypercarbic respiratory failure. Interval update: Continued improvement in her respiratory status. Improving oxygen requirements, weaned to 2 L trach collar this morning. Received 2 mg IV Bumex yesterday. Continue to receive Trelegy, inhaler technique training provided today. Plan: -Continue nasal cannula O2 supplementation via trach collar to maintain O2 saturation goal of 90% above. This morning on 2 L via trach collar -Continue Trelegy 100 inhaler along with albuterol every 6 hours on as-needed basis -Continue ceftriaxone azithromycin, wean to levofloxacin upon discharge -Contin
[2022-01-05 11:08] VITALS: BP 135/75; PULSE 104; RESP 17; TEMP 36.8; O2SAT 94
--- NOTE | 2022-01-05 14:01 | PC.NURSE ---
dc packet went over with pt. pt now being assisted to her personal vehicle.
--- NOTE | 2022-01-06 15:07 | CARE MANAGER ---
Contacted patient related to hospital discharge. She states she is feeling better but she is still really tired. She has family helping her today. She is going to pickle pumper her medication today. She is aware of her follow up appointments. Denies any questions or concerns. EWA Spencer
== END 2022-01-05 14:07 | disposition home or self-care (01) | DRG 193 ==
LOC: ER 01-04 00:12 → 2ND 01-04 01:53
PROVIDERS: Internal Medicine Pulmonary Disease; Nurse Practitioner Family; Admitting Provider Family Medicine; Emergency Provider Emergency Medicine; PCP Emergency Medicine; Visit Provider Family Medicine
DX: J18.9 Pneumonia, unspecified organism (principal); J96.21 Acute and chronic respiratory failure with hypoxia; J96.22 Acute and chronic respiratory failure with hypercapnia; E66.2 Morbid (severe) obesity with alveolar hypoventilation; Z68.44 Body mass index [BMI] 60.0-69.9, adult; I11.0 Hypertensive heart disease with heart failure; F17.210 Nicotine dependence, cigarettes, uncomplicated; Z95.1 Presence of aortocoronary bypass graft; J45.909 Unspecified asthma, uncomplicated; I50.9 Heart failure, unspecified; F32.A Depression, unspecified; E11.9 Type 2 diabetes mellitus without complications; K21.9 Gastro-esophageal reflux disease without esophagitis; E78.5 Hyperlipidemia, unspecified; G43.909 Migraine, unspecified, not intractable, without status migrainosus; Z87.891 Personal history of nicotine dependence; Z93.0 Tracheostomy status; G47.33 Obstructive sleep apnea (adult) (pediatric); Z86.16 Personal history of COVID-19
CPT/HCPCS: 36415; 71045; 80048; 80053; 82803; 84484; 85007; 85025; 86140; 87070; 87077; 87186; 87205; 87581; 87632; 87798; 94640; 99285; C9803; J0456; J0696; U0003; U0005

== ENCOUNTER → 2022-02-03 13:42 | Outpatient (CLI) | payer MEDICAID, SELFPAY | PROVIDERS: PCP Emergency Medicine; Visit Provider Internal Medicine Pulmonary Disease | DX: R06.02 Shortness of breath (principal) | CPT/HCPCS: 94762 ==

== ENCOUNTER 2022-02-12 15:55 | Inpatient (IN) | payer MEDICAID, SELFPAY ==
[2022-02-12] VITALS (8 sets, daily range): BP systolic 126–151; BP diastolic 66–95; PULSE 91–109; RESP 16–21; TEMP 36.7–36.8; O2SAT 77–99; BMI 69.5; BMI 67.3
--- NOTE | 2022-02-12 16:02 | HMH.EDGENADL ---
Discharge Plan Disposition Patient Disposition: Admitted As Inpatient Condition: Fair Clinical Impressions Clinical Impression: Right lower lobe pneumonia, Acute and chronic respiratory failure Discharge ED Provider: Belgica Reeder General Adult HPI General Chief complaint: Shortness of Breath/Dyspnea Stated complaint: AO09/10@0800hit back,passed out,o2 states 55 Time Seen by Provider: 02/12/22 16:02 History of Present Illness HPI narrative: 47-year-old female presenting to the emergency department with low oxygen saturation, shortness of breath. Symptoms have been going on and off for the last week. Today, she felt lightheaded upon standing and actually fell. Says she struck the back of her head. Unsure if she lost consciousness. She was able to get up on her own. Currently has a dull, throbbing headache located in the posterior. No neck pain. No vision changes. She had a fall couple days ago as well. Suffers from chronic respiratory failure, tracheostomy dependent. She uses 3 L oxygen as needed. She has had a cough that is frequent, hacking. Productive of clear yellow sputum. No recent antibiotic or steroid use. No fevers, chills, nausea, vomiting. Related Data Home Medications Medication Instructions Recorded Confirmed lisinopril 10 mg tablet 10 mg PO DAILY High blood pressure 01/04/22 02/12/22 omeprazole 40 mg capsule,delayed 40 mg PO DAILY GERD 01/04/22 02/12/22 release albuterol sulfate 0.63 mg/3 mL 0.63 mg inhalation Q4H soa 02/12/22 02/12/22 solution for nebulization albuterol sulfate 90 mcg/actuation 1 puff inhalation Q4H soa 02/12/22 02/12/22 aerosol inhaler (ProAir HFA) blood sugar diagnostic ([facility] 02/12/22 02/12/22 Verio test strips) budesonide 0.25 mg/2 mL suspension 0.25 mg inhalation BID soa 02/12/22 02/12/22 for nebulization formoterol fumarate 20 mcg/2 mL 2 ml inhalation BID soa 02/12/22 02/12/22 solution for nebulization (Perforomist) lancets 33 gauge ([facility] Delica 02/12/22 02/12/22 Lancets) nicotine 1 patch transdermal DAILY nicotine 02/12/22 02/12/22 21mg/24hr-14mg/24hr-7mg/24hr daily replacement transderm patches,sequentl polyethylene glycol 3350 17 17 gm PO DAILY bowel regimen 02/12/22 02/12/22 gram/dose oral powder (Miralax) sumatriptan succinate 100 mg tablet 100 mg PO DAILY migraines 02/12/22 02/12/22 Previous Rx's Medication Instructions Recorded benzonatate 100 mg capsule 100 mg PO TID PRN cough #30 caps 12/24/21 gabapentin 800 mg tablet 800 mg PO TID Neuropathy #90 tabs 12/24/21 lamotrigine 100 mg tablet 100 mg PO DAILY Bipolar #90 tabs 12/24/21 levothyroxine 25 mcg tablet 25 mcg PO DAILY Thyriod #90 tabs 12/24/21 promethazine 25 mg tablet 25 mg PO Q8H PRN nausea and 12/24/21 vomiting #30 tabs diazepam 10 mg tablet 10 mg PO BID Anxiety #60 tabs 01/19/22 hydrocodone 5 mg-acetaminophen 325 1 tab PO BID PRN pain #60 tabs 01/19/22 mg tablet ziprasidone HCl 60 mg capsule 60 mg PO BID mood #60 caps 01/21/22 vilazodone 40 mg tablet 40 mg PO DAILY Depression #90 tabs 02/03/22 Allergies Allergy/AdvReac Type Severity Reaction Status Date / Time No Known Allergies Allergy Verified 01/19/22 14:07 [facility] Medical History (Updated 02/12/22 @ 17:25 by Belgica Reeder DO) Abnormal stress test Angina, class III Asthma Chronic respiratory failure with hypercapnia COPD (chronic obstructive pulmonary disease) Dizziness Edema History of smoking 30 or more pack years HLD (hyperlipidemia) HTN (hypertension) Hypothyroidism (~11/21/17) Obesity hypoventilation syndrome Sinus tachycardia SOB (shortness of breath) Tobacco abuse Tracheostomy in place Social History (Updated 02/02/22 @ 14:48 by Marialuisa Lazar) Smoking Status: Current every day smoker tobacco type: cigarettes packs per day: 1 alcohol intake: current substance use type: marijuana current occupational status: disabled Travel in the last 8 weeks: None household members: f
--- NOTE | 2022-02-12 16:11 | CT_ITS ---
PROCEDURE INFORMATION: Exam: CT Head Without Contrast Exam date and time: 02/12/2022 4:22 PM Age: 47 years old Clinical indication: Injury or trauma; Fall; Additional info: Fall, head injury-- morbidly obese patient not able to bend head down on a permanent trach TECHNIQUE: Imaging protocol: Computed tomography of the head without contrast. Radiation optimization: All CT scans at this facility use at least one of these dose optimization techniques: automated exposure control; mA and/or kV adjustment per patient size (includes targeted exams where dose is matched to clinical indication); or iterative reconstruction. COMPARISON: No relevant prior studies available. FINDINGS: Brain: Images are slightly motion degraded. No hemorrhage. Unremarkable white matter for the patient's age. No mass effect. No evolving territorial infarct. Cerebral ventricles: No ventriculomegaly. Paranasal sinuses: Visualized sinuses are unremarkable. No fluid levels. Mastoid air cells: Visualized mastoid air cells are well aerated. The globes are proptotic on a chronic basis. Bones/joints: Unremarkable. No acute fracture. Soft tissues: Unremarkable. IMPRESSION: No acute intracranial abnormality seen.
--- NOTE | 2022-02-12 16:11 | ECG_ITS ---
APPROVED REPORT Exam: Resting ECG HR:97 bpm ECG Measurements Heart Rate 97 AXES AL 136 P 57 QRSd 94 QRS 50 QT 364 T 47 QTc 419 Conclusion SINUS RHYTHM NORMAL ECG UNCONFIRMED REPORT Electronically signed by : Mario Salcido MD 02/13/2022 15:24:35
--- NOTE | 2022-02-12 16:11 | XR_ITS ---
PROCEDURE INFORMATION: Exam: XR Chest Exam date and time: 02/12/2022 4:42 PM Age: 47 years old Clinical indication: Shortness of breath; Additional info: Cough, short of breath-- has a permanent trach TECHNIQUE: Imaging protocol: Radiologic exam of the chest. Views: 1 view. COMPARISON: CR XR CHEST PORTABLE 01/05/2022 8:38 AM FINDINGS: Tubes, catheters and devices: There is a tracheostomy tube with tip projecting at the level of the clavicles. Lungs: Progressive right lung base opacities suspicious for pneumonia. Pleural spaces: No visible right pleural effusion or pneumothorax. Limited assessment of the left hemithorax for the purposes of assessing the presence or absence of pleural effusion given patient body habitus. No visible left pneumothorax. Heart/Mediastinum: Stable. No definite cardiomegaly considering low lung volumes. Hypoventilation probably exaggerates cardiac size. Bones/joints: Unremarkable. IMPRESSION: Limited study due to patient body habitus and low lung volumes. Progressive right lung base opacities suspicious for pneumonia.
--- NOTE | 2022-02-12 16:25 | PC.NURSE ---
PT GOING TO CT
--- NOTE | 2022-02-12 16:51 | PC.NURSE ---
respiratory aware of vbg and blood in the lab
[2022-02-12 17:00] LABS: Basophils # 0.1 K/mm3 (0-0.2); Basophils % 0.5 % (0.1-2.0); Eosinophils # 0.1 K/mm3 (0.0-0.4); Eosinophils % 0.9 % (0.1-12.0); Hematocrit 37.9 % (37.0-47.0); Hemoglobin 11.6 g/dL (12.2-16.2); Lymphocytes # 1.3 K/mm3 (0.7-4.5); Lymphocytes % 11.4 % (10-50); Mean Corpuscular HGB Conc 30.5 g/dL (31.8-35.4); Mean Corpuscular Hemoglobin 27.7 pg (27.0-31.2); Mean Corpuscular Volume 90.8 fl (81-99); Mean Platelet Volume 8.5 fl (7.4-10.4); Monocytes # 0.5 K/mm3 (0.1-1.0); Monocytes % 4.7 % (1.7-9.3); Neutrophils # 9.1 K/mm3 (1.8-7.8); Neutrophils % 82.6 % (37.0-80.0); Platelet Count 272 K/mm3 (142-424); Red Blood Count 4.17 M/mm3 (4.20-5.40); Red Cell Distribution Width 16.5 % (11.5-17.5)
[2022-02-12 17:05] LABS: Alanine Aminotransferase 17 U/L (12-78); Albumin Level 3.8 g/dl (3.5-5.0); Albumin/Globulin Ratio 1.2 (1.1-1.8); Alkaline Phosphatase 86 U/L (38-126); Aspartate Amino Transferase 24 U/L (14-36); Blood Urea Nitrogen 34 mg/dl (7-17); Calcium 8.3 mg/dl (8.4-10.2); Carbon Dioxide 39 mmol/L (22.0-30.0); Creatinine Clearance Estimated 37 mL/min (50-200); Estimated Glomerular Filt Rate 40 ml/min (>60); GFR (African American) 49 ML/MIN (>60); Globulin 3.3 g/dL (1.3-3.2); Glucose 89 mg/dl (74-100); Potassium 3.7 mmoL/L (3.5-5.1); Sodium 141 mmol/L (136-145); Total Protein,Serum 7.1 g/dl (6.3-8.2)
[2022-02-12 17:13] LABS: NT Pro Brain Natriuretic Pep. 721 pg/mL (0-125)
[2022-02-12 17:14] LABS: Bilirubin,Total < 0.1 mg/dl (0.2-1.3)
[2022-02-12 17:16] LABS: Anion Gap 7.7 mEq/L (5-15); Chloride 98 mmol/L (98-107)
[2022-02-12 17:31] LABS: VBG Base Excess 2.1 mmol/L (-2.4-2.3); VBG HCO3 28.9 mmol/L (23-30); VBG Oxygen Saturation 77.7 % (50-70); VBG PH 7.28 mmol/L (7.31-7.41); VBG PO2 45.9 mmol/L (28-40); VBG Total CO2 30.8 mmol/L (23-27)
[2022-02-12 17:32] LABS: VBG PCO2 62.9 mmol/L (35-51)
--- NOTE | 2022-02-12 17:36 | PC.NURSE ---
critical lab valued called from RT. notified
--- NOTE | 2022-02-12 17:38 | PC.NURSE ---
BLOOD CULTURES AND LACTIC SENT TO LAB
--- NOTE | 2022-02-12 17:44 | PC.NURSE ---
Paged Dr Salcido aboriginal liaison officer for Dr Chris for Dr Reeder.
[2022-02-12 17:46] LABS: Coronavirus 19, PCR Not Detected (NotDetected); Influenza A, PCR Not Detected (NotDetected); Influenza B, PCR Not Detected (NotDetected)
--- NOTE | 2022-02-12 17:47 | PC.NURSE ---
DR HUYNH PAGED FOR ADMISSION , HOUSE NOTIFIED OF ADMISSION
[2022-02-12 17:54] LABS: Lactic Acid 0.7 mmol/L (0.7-2.1)
--- NOTE | 2022-02-12 18:22 | PC.NURSE ---
report calls to Alessia MCNEIL
--- NOTE | 2022-02-12 18:40 | PC.NURSE ---
pt up to the bathroom
--- NOTE | 2022-02-12 19:12 | PC.NURSE ---
pt sitting up in bed eating
--- NOTE | 2022-02-12 19:13 | PC.NURSE ---
updated steward/stewardess third that pt covid is back and pt can come up at this time
--- NOTE | 2022-02-12 19:35 | PC.NURSE ---
PT ARRIVED TO FLOOR VIA W/C @ 193
[2022-02-13] VITALS: BP 136/82; PULSE 106; RESP 22; TEMP 36.9; O2SAT 95
[2022-02-13 04:00] VITALS: BP 140/75; PULSE 101; RESP 22; TEMP 37.1; O2SAT 94
--- NOTE | 2022-02-13 04:04 | PC.NURSE ---
Addendum entered by Nidia Avilez RN 02/13/22 06:31: pt complained of pain, tylenol was given per aug, pt. requested something else for the pain, Dr Salcido director river restoration for Dr Chris was paged, waiting for a call back at this time. Original Note: pt is a&ox4. has ambulated to and from bathroom with standby assistance. o2 sats have been >95% with 10L o2 via trach collar. pt. has complained of some pain related to a fall yesterday morning, tylenol was offered and refused. CB is in reach.
[2022-02-13 04:20] VITALS: BMI 67.3
[2022-02-13 07:51] LABS: Basophils # 0.1 K/mm3 (0-0.2); Basophils % 0.5 % (0.1-2.0); Eosinophils % 0.1 % (0.1-12.0); Hematocrit 37.6 % (37.0-47.0); Hemoglobin 11.1 g/dL (12.2-16.2); Lymphocytes # 0.6 K/mm3 (0.7-4.5); Mean Corpuscular HGB Conc 29.5 g/dL (31.8-35.4); Mean Corpuscular Hemoglobin 27.1 pg (27.0-31.2); Mean Corpuscular Volume 91.9 fl (81-99); Mean Platelet Volume 8.5 fl (7.4-10.4); Monocytes # 0.4 K/mm3 (0.1-1.0); Monocytes % 2.5 % (1.7-9.3); Neutrophils % 92.9 % (37.0-80.0); Platelet Count 282 K/mm3 (142-424); Red Blood Count 4.09 M/mm3 (4.20-5.40)
[2022-02-13 07:52] LABS: Blood Urea Nitrogen 29 mg/dl (7-17); Calcium 8.1 mg/dl (8.4-10.2); Chloride 100 mmol/L (98-107); Creatinine Clearance Estimated 47 mL/min (50-200); Estimated Glomerular Filt Rate 53 ml/min (>60); GFR (African American) 64 ML/MIN (>60); Glucose 127 mg/dl (74-100); Potassium 5.6 mmoL/L (3.5-5.1); Sodium 140 mmol/L (136-145)
[2022-02-13 07:54] LABS: MANUAL DIFFERENTIAL MANUAL DIFFERENTIAL (MANUAL DIFF)
[2022-02-13 07:59] LABS: Anion Gap 7.6 mEq/L (5-15); Carbon Dioxide 38 mmol/L (22.0-30.0)
[2022-02-13 08:00] VITALS: BP 137/84; PULSE 105; RESP 18; TEMP 36.6; O2SAT 98
--- NOTE | 2022-02-13 08:14 | P.CONPHA_ITS ---
[facility] Pharmacy VTE Monitoring Patient Demographics Admission date: 02/12/22 Report Date: 02/13/22 Time: 08:14 Patient Allergies No Known Allergies Allergy (Verified 01/19/22 14:07) Height: 1.55 m Weight: 161.706 kg Current Active Problems (Updated 02/12/22 @ 17:25 by Belgica Reeder DO) Right lower lobe pneumonia (Acute) Acute and chronic respiratory failure (Acute) VTE Risk Labs: VTE Related Lab Results Hgb 11.1 g/dL (12.2-16.2) L 02/13/22 07:08 Hct 37.6 % (37.0-47.0) 02/13/22 07:08 Plt Count 282 K/mm3 (142-424) 02/13/22 07:08 BUN 29 mg/dl (7-17) H 02/13/22 07:08 Creatinine 1.10 mg/dl (0.52-1.04) H D 02/13/22 07:08 Estimated Creat Clear 47 mL/min (50-200) 02/13/22 07:08 Prophylaxis VTE Prophylaxis Ordered?: Yes Types of VTE Prophylaxis: TEDS Knee High Location of Applied Device: Bilateral Lower Extremeties
[2022-02-13 08:42] LABS: Lymphocytes % 7 % (10-50); Neutrophils % 93 % (42-76); Platelet Estimate Normal; Total Cells Counted 100
[2022-02-13 08:43] LABS: Hypochromasia 1+
--- NOTE | 2022-02-13 10:11 | EXP.HP ---
History of Present Illness *Admission Date: 02/12/22 *Reason for visit:: sob *History of present illness: this patient presents to the ed with -47-year-old female presenting to the emergency department with low oxygen saturation, shortness of breath.? Symptoms have been going on and off for the last week.? Today, she felt lightheaded upon standing and actually fell.? Says she struck the back of her head.? Unsure if she lost consciousness.? She was able to get up on her own.? Currently has a dull, throbbing headache located in the posterior.? No neck pain.? No vision changes.? She had a fall couple days ago as well.? Suffers from chronic respiratory failure, tracheostomy dependent.? She uses 3 L oxygen as needed.? She has had a cough that is frequent, hacking.? Productive of clear yellow sputum.? No recent antibiotic or steroid use.? No fevers, chills, nausea, vomiting.?summary this is a 47-year-old female with history of chronic hypoxic respiratory failure, requiring tracheostomy, presenting to the emergency department with fall, head injury, cough and shortness of breath.? Patient clinically stable on arrival.? Initial oxygen saturations were 88% on room air.? Placed on 3 L by trach collar.? Will obtain noncontrast head CT to assess for trauma.? Will obtain CBC, CMP, VBG, chest x-ray, EKG. EKG shows sinus rhythm.? No ST segment changes.? No arrhythmia. Laboratory results show elevated creatinine at 1.4.? Baseline is around 0.8. Slight leukocytosis at 11,000.? No anemia.? No abnormality of glucose or electrolytes. proBNP elevated at 700. Chest x-ray shows low lung volumes, evidence of pulmonary edema.? Also a right lower consolidation, concerning for pneumonia.? Patient given 125 Solu-Medrol, 1 g Rocephin and 500 mg azithromycin. She is on increased oxygen requirement via trach collar.? Plan to admit for further management and treatment of pneumonia, LEONEL. Patient most recently saw Dr. Diaz in his clinic on 01/17/[address] Salcido for admission for Dr. Chris [facility] Medical History (Updated 02/12/22 @ 17:25 by Belgica Reeder DO) Abnormal stress test Angina, class III Asthma Chronic respiratory failure with hypercapnia COPD (chronic obstructive pulmonary disease) Dizziness Edema History of smoking 30 or more pack years HLD (hyperlipidemia) HTN (hypertension) Hypothyroidism (~11/21/17) Obesity hypoventilation syndrome Sinus tachycardia SOB (shortness of breath) Tobacco abuse Tracheostomy in place Social History (Updated 02/02/22 @ 14:48 by Marialuisa Lazar) Smoking Status: Current every day smoker tobacco type: cigarettes packs per day: 1 alcohol intake: current substance use type: marijuana current occupational status: disabled Travel in the last 8 weeks: None household members: family housing: apartment number of children: 0 current occupational exposures/hazards: No caffeine: Yes Review of Systems Review of Systems Review of systems:: pertinent systems reviewed and negative unless documented below Constitutional Constitutional: Reports frequent falls and Reports headache(s) Eyes Eyes: Denies eye discharge ENT Ears, Nose, Mouth, and Throat: Denies dizziness and Reports headache(s) *Cardiovascular Cardiovascular: Denies chest pain with activity and Reports dyspnea *Respiratory Respiratory: Reports as per HPI, Reports dyspnea and Denies hemoptysis *Gastrointestinal Gastrointestinal: Denies diarrhea *Genitourinary Genitourinary: Denies hematuria *Musculoskeletal Musculoskeletal: Denies back pain Integumentary/Breasts Skin/Breast: Denies rash *Neurologic Neurologic: Denies dizziness, Reports frequent falls and Reports headache(s) Psychiatric Psychiatric: Reports anxiety Meds Home Medications and Allergies Home Medications Medication Instructions Recorded Confirmed Type gabapentin 800 mg tablet 800 mg PO TID Neuropathy #90 tabs 12/24/21 02/12/22 Rx lamotrigine 100 mg tablet 100 mg PO DAILY Bi
--- NOTE | 2022-02-13 10:13 | CT_ITS ---
PROCEDURE INFORMATION: Exam: CTA Chest With Contrast Exam date and time: 02/13/2022 10:41 AM Age: 47 years old Clinical indication: Shortness of breath; Additional info: PT has sob-- morbidly obese and has a permanent trach TECHNIQUE: Imaging protocol: Computed tomographic angiography of the chest with contrast. 3D rendering (Not supervised by radiologist): MIP and/or 3D reconstructed images were created by the technologist. Radiation optimization: All CT scans at this facility use at least one of these dose optimization techniques: automated exposure control; mA and/or kV adjustment per patient size (includes targeted exams where dose is matched to clinical indication); or iterative reconstruction. Contrast material: ISOVUE 370; Contrast volume: 70 ml; Contrast route: INTRAVENOUS (IV); COMPARISON: CT ANGIO CHEST PE PROTOCOL 03/16/2021 8:32 PM FINDINGS: Tubes, catheters and devices: Tracheostomy tube is in place. Pulmonary arteries: No pulmonary emboli are identified to the level of the lobar arteries in the upper lobes and proximal segmental arteries in the lower lobes. More distal evaluation is limited by suboptimal contrast bolus timing. Aorta: Unremarkable. No aortic aneurysm. No aortic dissection. Lungs: Mild bibasilar atelectasis. Otherwise, no focal airspace consolidation. Pleural spaces: Unremarkable. No pneumothorax. No pleural effusion. Heart: Unremarkable. No cardiomegaly. No pericardial effusion. Lymph nodes: Unremarkable. No enlarged lymph nodes. Bones/joints: Unremarkable. No acute fracture. Soft tissues: Unremarkable. IMPRESSION: No pulmonary emboli are identified to the level of the lobar arteries in the upper lobes and proximal segmental arteries in the lower lobes.
[2022-02-13 11:04] LABS: Troponin I 0.05 ng/ml (0.00-0.034)
[2022-02-13 12:00] VITALS: BP 155/86; PULSE 100; RESP 18; TEMP 36.6; O2SAT 100
--- NOTE | 2022-02-13 13:27 | HMH.PHAINT1 ---
Pharmacy Intervention Comments: MEDICATION RECONCILIATION COMPLETED ON PATIENT USING EXTERNAL FILL HISTORY FROM PHARMACY. -ISIDRO GARCIA, SAID
[2022-02-13 16:00] VITALS: BP 104/59; PULSE 104; RESP 20; TEMP 37.2; O2SAT 99
--- NOTE | 2022-02-13 18:43 | PC.NURSE ---
Paged Dr. Salcido
--- NOTE | 2022-02-13 19:19 | PC.NURSE ---
Spoke with Dr. Salcido he wants to go ABG, and BMP.
--- NOTE | 2022-02-13 19:20 | PC.NURSE ---
Called RT, and lab with stat orders
[2022-02-13 19:32] LABS: ABG Base Excess 8.3 mmol/L (-2.4-2.3); ABG HCO3 36.3 mmhg (22.0-26.0); ABG Oxygen Saturation 98 % (90-100); ABG PO2 103.5 mmhg (80-100); ABG TCO2 39.2 mmhg (23-27)
--- NOTE | 2022-02-13 19:43 | PC.NURSE ---
spoke with Dr Salcido plant protection supervisor for Dr Chris regarding pt ABG: pH 7.204, pCO2 94.1. orders for BiPAP. spoke with RT about this. pt has own BiPAP machine from home.
[2022-02-13 19:55] LABS: Allen's Test y; Source rr
[2022-02-13 19:56] LABS: ABG PCO2 94.1 mmhg (35.0-45.0)
[2022-02-13 20:00] VITALS: BP 123/84; PULSE 102; RESP 22; TEMP 36.9; O2SAT 98
[2022-02-13 20:07] LABS: Blood Urea Nitrogen 28 mg/dl (7-17); Calcium 8.3 mg/dl (8.4-10.2); Chloride 98 mmol/L (98-107); Creatinine Clearance Estimated 47 mL/min (50-200); Estimated Glomerular Filt Rate 53 ml/min (>60); GFR (African American) 64 ML/MIN (>60); Potassium 5.2 mmoL/L (3.5-5.1); Sodium 139 mmol/L (136-145)
--- NOTE | 2022-02-13 20:09 | PC.NURSE ---
Pt is A/Ox4. She had a moment of getting to the bathroom that her o2 sat dropped. We did deep suction through the trace and got out a big clot of mucus. She had family bring her inner cannula for her trach to replace. She has been deep suctioned a few times. She has been complaining of a FERNANDES all day. She was given norco, imetrex twice. I check BS it was 114. We did a stat BMP, and ABG. I told Dr. Chris about her K level.
[2022-02-13 20:15] LABS: Anion Gap 8.2 mEq/L (5-15); Carbon Dioxide 38 mmol/L (22.0-30.0)
[2022-02-13 20:16] LABS: Glucose 88 mg/dl (74-100)
[2022-02-14] VITALS (7 sets, daily range): BP systolic 121–149; BP diastolic 70–89; PULSE 77–108; RESP 17–23; TEMP 36.6–37.3; O2SAT 87–98; BMI 67.6; BMI 67.4
[2022-02-14 01:07] LABS: POC Glucose,Bedside 114 (70-110)
--- NOTE | 2022-02-14 04:25 | PC.NURSE ---
pt a&ox4. complaints of FERNANDES and leg pain a few times, she was given tylenol and norco per aug. pt has been on BiPAP t/o the night. she has had to be deep suctioned a few times. ambulates to and from bathroom with minimal assistance. CB in reach
--- NOTE | 2022-02-14 05:47 | CA_ITS ---
FINAL REPORT CLINICAL HISTORY: swelling/immobility, morbid obesity FINDINGS: Technically limited study due to patient body habitus. Color Doppler, duplex Doppler and compression sonography of the bilateral lower extremities was performed. There is no evidence of deep venous thrombosis from the level of the groin to the calf. The deep veins are patent and compressible. IMPRESSION: No evidence of deep venous thrombosis bilateral lower extremities. Reviewed, Interpreted and Dictated by Pranay Miller III, MD Transcribed by Quentin Child Authenticated and . [facility]
--- NOTE | 2022-02-14 09:38 | EXP.PULM.CON ---
History of Present Illness History of present illness: Ms. Badillo is a 47-year-old female history of asthma, acute hypoventilation syndrome, sleep apnea, on home noninvasive ventilator therapy presented hospital worsening respiratory distress not associated with cough and yellow productive phlegm. Patient admits progressively worsening distress for the last 5 days not improved with using nebulization therapies per denies any sick contacts. [facility] Medical History (Updated 02/14/22 @ 11:50 by Tian Diaz MD) Abnormal stress test Acute and chronic respiratory failure with hypercapnia Angina, class III Asthma Chronic respiratory failure with hypercapnia COPD (chronic obstructive pulmonary disease) Dizziness Edema History of smoking 30 or more pack years HLD (hyperlipidemia) HTN (hypertension) Hypothyroidism (~11/21/17) Obesity hypoventilation syndrome Pneumonia Sinus tachycardia SOB (shortness of breath) Tobacco abuse Tracheostomy in place Social History (Updated 02/02/22 @ 14:48 by Marialuisa Lazar) Smoking Status: Current every day smoker tobacco type: cigarettes packs per day: 1 alcohol intake: current substance use type: marijuana current occupational status: disabled Travel in the last 8 weeks: None household members: family housing: apartment number of children: 0 current occupational exposures/hazards: No caffeine: Yes Review of Systems Constitutional Constitutional: Reports fatigue and Reports headache(s) Eyes Eyes: Denies eye discharge, Denies dry eyes, Denies irritation and Denies itchy eyes ENT Ears, Nose, Mouth, and Throat: Denies dizziness, Reports headache(s), Denies lip swelling and Denies throat swelling *Cardiovascular Cardiovascular: Reports dyspnea, Reports dyspnea on exertion and Reports leg edema *Respiratory Respiratory: Reports chest congestion, Reports cough, Reports dyspnea, Reports dyspnea on exertion, Reports excessive phlegm production and Reports wheezing *Gastrointestinal Gastrointestinal: Denies abdominal pain, Denies belching and Denies cramping *Musculoskeletal Musculoskeletal: Reports back pain, Reports myalgias and Reports other (No small joint swelling or Pain) *Neurologic Neurologic: Denies dizziness and Reports headache(s) Psychiatric Psychiatric: Denies homicidal ideation and Denies suicidal ideation Endocrine Endocrine: Reports fatigue and Denies heat intolerance Hematologic/Lymphatic Hematologic/Lymphatic: Denies easy bleeding and Denies lymphadenopathy Allergic/Immunologic Allergic/Immunologic: Denies itchy eyes, Denies lip swelling, Denies throat swelling and Reports wheezing Pulmonology Exam Inpatient Vital signs and Labs for Last 24 Hours: Temp Pulse Resp BP Pulse Ox FiO2 97.9 F 95 H 17 135/89 97 10 02/14/22 08:00 02/14/22 08:00 02/14/22 08:00 02/14/22 08:00 02/14/22 08:00 02/13/22 18:56 Laboratory Results - last 24 hr 02/13/22 07:08: Troponin I 0.05 H 02/13/22 18:37: POC Glucose 114 H 02/13/22 19:17: Specimen Source rr, O2 % 40 tm, ABG pH 7.20 L*, ABG pCO2 94.1 H, ABG pO2 103.5 H, ABG HCO3 36.3 H, ABG Total CO2 39.2 H, ABG O2 Saturation 98, ABG Base Excess 8.3 H, Vaughn Test y 02/13/22 19:50: Sodium 139, Potassium 5.2 H, Chloride 98, Carbon Dioxide 38 H, Anion Gap 8.2, BUN 28 H, Creatinine 1.10 H, Estimated Creat Clear 47, Estimated GFR 53 L, Est GFR ( Amer) 64, Glucose 88 D, Calcium 8.3 L I & O for Labs for Last 24 Hours: Intake & Output 02/11/22 02/12/22 02/13/22 02/14/22 23:59 23:59 23:59 23:59 Intake Total 1080 / 1080 360 / 360 Output Total 200 / 200 0 / 0 Balance 880 / 880 360 / 360 Weight 356 lb 8 oz 356 lb 8.011 oz 358 lb 5.218 oz Microbiology Reports for the Last 24 Hours: Microbiology 02/13/22 13:31 Sputum - Expectorated Sputum Gram Stain - Final Head: Present normocephalic and atraumatic ENT: Present normal exam and normal oropharynx Comment:: Tracheostomy in place. Neck: Present juli
--- NOTE | 2022-02-14 13:12 | PC.NURSE ---
rounded on patient. no concerns or questions at this time. patient sitting up in bed. call light within reach. no complaints. encouraged her to ring out with any needs or questions.
--- NOTE | 2022-02-14 13:43 | EXP.ACUTE.PN ---
Subjective *Date: 02/15/22 *Time: 14:38 Interval history: doing better but still sob- and has ongoing leg pain - has dec mentation at times Medical Exam Vital signs and Labs for Last 24 Hours: Temp Pulse Resp BP Pulse Ox FiO2 98.4 F 78 18 145/85 H 93 L 10 02/14/22 11:17 02/14/22 12:36 02/14/22 11:17 02/14/22 11:17 02/14/22 11:17 02/13/22 18:56 Laboratory Results - last 24 hr 02/13/22 18:37: POC Glucose 114 H 02/13/22 19:17: Specimen Source rr, O2 % 40 tm, ABG pH 7.20 L*, ABG pCO2 94.1 H, ABG pO2 103.5 H, ABG HCO3 36.3 H, ABG Total CO2 39.2 H, ABG O2 Saturation 98, ABG Base Excess 8.3 H, Vaughn Test y 02/13/22 19:50: Sodium 139, Potassium 5.2 H, Chloride 98, Carbon Dioxide 38 H, Anion Gap 8.2, BUN 28 H, Creatinine 1.10 H, Estimated Creat Clear 47, Estimated GFR 53 L, Est GFR ( Amer) 64, Glucose 88 D, Calcium 8.3 L I & O for Labs for Last 24 Hours: Intake & Output 02/12/22 02/13/22 02/14/22 02/15/22 11:59 11:59 11:59 11:59 Intake Total 360 / 360 1080 / 1080 Output Total 200 / 200 0 / 0 0 / 0 Balance 160 / 160 1080 / 1080 0 / 0 Weight 356 lb 8.011 oz 357 lb 2.382 oz Microbiology Reports for the Last 24 Hours: Microbiology 02/13/22 13:31 Sputum - Expectorated Sputum Gram Stain - Final Head: Present atraumatic Eyes: Absent eye discharge Neck: Present trachea midline Comment:: has trach Respiratory: Present prolonged expiratory phase and other (has trach); Absent normal respiratory effort Cardiac: Present Reg Rate and Rhythm and Systolic Murmur GI: Present soft Extremities: Absent joint swelling Skin: Absent rash Neuro: Present Cranial Nerve 2-12 Intact, Weakness, No Lateralizing Findings, oriented x 3 and moves all extremities; Absent Coordination Normal
--- NOTE | 2022-02-14 18:51 | PC.NURSE ---
Patient refuses to wear bipap despite coz being high and pt educated about high co2 levels. Patient complained of headache and emesis all throughout the shift and toradol and ativan ordered per Dr. Martinez. Patient able to relax after administration but still refused to wear bipap. VS stable but patient oxygen coco rapidly decrease to 70's with exertion or when patient takes oxygen off. Patient complains of tremors and shakiness at times. Lungs sounds on ascultation exhibit coarse crackles scattered.
[2022-02-15] VITALS (10 sets, daily range): BP systolic 100–146; BP diastolic 52–81; PULSE 74–104; RESP 16–23; TEMP 36.8–37.3; O2SAT 90–99; BMI 48.4; BMI 67.3
--- NOTE | 2022-02-15 04:23 | PC.NURSE ---
pt has been weak t/o the shift. she has stayed on biPAP majority of the night. O2 sats have remained in 90s but decrease to lower 80s and 70s when oxygen is removed. scattered coarse crackles auscultated t/o lungs. pt complained of nausea and vomiting X1, zofran administered per mar with adequate relief. mother has been at bedside t/o the night. CB in reach.
[2022-02-15 06:00] LABS: Basophils # 0.1 K/mm3 (0-0.2); Basophils % 0.7 % (0.1-2.0); Eosinophils % 0.3 % (0.1-12.0); Hematocrit 36.4 % (37.0-47.0); Hemoglobin 10.7 g/dL (12.2-16.2); Lymphocytes % 9.8 % (10-50); Mean Corpuscular HGB Conc 29.3 g/dL (31.8-35.4); Mean Corpuscular Hemoglobin 27.5 pg (27.0-31.2); Mean Corpuscular Volume 93.8 fl (81-99); Mean Platelet Volume 8.5 fl (7.4-10.4); Monocytes # 0.6 K/mm3 (0.1-1.0); Monocytes % 5.2 % (1.7-9.3); Neutrophils # 8.8 K/mm3 (1.8-7.8); Neutrophils % 83.9 % (37.0-80.0); Platelet Count 215 K/mm3 (142-424); Red Blood Count 3.87 M/mm3 (4.20-5.40); Red Cell Distribution Width 16.7 % (11.5-17.5); White Blood Count 10.5 K/mm3 (4.8-10.8)
[2022-02-15 06:06] LABS: Anion Gap 11.3 mEq/L (5-15); Blood Urea Nitrogen 23 mg/dl (7-17); Calcium 8.1 mg/dl (8.4-10.2); Carbon Dioxide 38 mmol/L (22.0-30.0); Chloride 92 mmol/L (98-107); Creatinine Clearance Estimated 65 mL/min (50-200); Estimated Glomerular Filt Rate 77 ml/min (>60); GFR (African American) 93 ML/MIN (>60); Glucose 120 mg/dl (74-100); Potassium 5.3 mmoL/L (3.5-5.1); Sodium 136 mmol/L (136-145)
--- NOTE | 2022-02-15 08:20 | P.PN_ITS ---
Subjective *Date: 02/15/22 *Time: 19:40 Interval history: 47-year-old female patient sitting up in recliner, trach collar at 8 L. Mother present in room, states patient has not been using her Trilegy machine at home. Discussed importance of using machine at home with patient and that may be reason for her increased confusion. Patient reports she sometimes forgets to use it, reminded to use even when taking naps during the day Medical Exam Vital signs and Labs for Last 24 Hours: Temp Pulse Resp BP Pulse Ox FiO2 98.4 F 98 H 20 112/72 93 L 35 02/15/22 08:00 02/15/22 08:00 02/15/22 08:00 02/15/22 08:00 02/15/22 08:00 02/15/22 06:10 Laboratory Results - last 24 hr 02/15/22 05:48: WBC 10.5, RBC 3.87 L, Hgb 10.7 L, Hct 36.4 L, MCV 93.8, MCH 27.5, MCHC 29.3 L, RDW 16.7, Plt Count 215, MPV 8.5, Neut % (Auto) 83.9 H, Lymph % (Auto) 9.8 L, [place] % (Auto) 5.2, Eos % (Auto) 0.3, Baso % (Auto) 0.7, Neut # (Auto) 8.8 H, Lymph # (Auto) 1.0, [place] # (Auto) 0.6, Eos # (Auto) 0.0, Baso # (Auto) 0.1 02/15/22 05:48: Sodium 136, Potassium 5.3 H, Chloride 92 L, Carbon Dioxide 38 H, Anion Gap 11.3, BUN 23 H, Creatinine 0.80 D, Estimated Creat Clear 65, Estimated GFR 77, Est GFR ( Amer) 93 D, Glucose 120 H, Calcium 8.1 L 02/15/22 09:01: Specimen Source Left radial, O2 % 35%, ABG pH 7.27 L, ABG pCO2 85.4 H, ABG pO2 71.0 L, ABG HCO3 37.9 H, ABG Total CO2 40.5 H, ABG O2 Saturation 94, ABG Base Excess 10.9 H, Vaughn Test Acceptable I & O for Labs for Last 24 Hours: Intake & Output 02/12/22 02/13/22 02/14/22 02/15/22 23:59 23:59 23:59 23:59 Intake Total 1080 / 1080 960 / 1404 844 / 844 Output Total 200 / 200 200 / 200 200 / 200 Balance 880 / 880 760 / 1204 644 / 644 Weight 356 lb 8 oz 356 lb 8.011 oz 357 lb 2.382 oz 256 lb 12.8 oz Microbiology Reports for the Last 24 Hours: Microbiology 02/12/22 17:40 Blood Blood Culture - Preliminary NO GROWTH AFTER 48 HOURS 02/12/22 17:40 Blood Blood Culture - Preliminary NO GROWTH AFTER 48 HOURS Head: Present atraumatic and normocephalic Eyes: Present as per HPI ENT: Present normal exam Neck: Present normal inspection, trachea midline and other (Tracheostomy with PMV ) Respiratory: Present wheezes; Absent accessory muscle use Cardiac: Present Reg Rate and Rhythm GI: Present soft and normal bowel sounds; Absent tenderness Extremities: Present full ROM, tenderness and edema Skin: Present intact and ecchymosis (RLE); Absent cyanosis Neuro: Present Weakness and moves all extremities; Absent Numbness Assessment and Plan Assessment and plan all Dx Assessment and Plan All Dx:: 1. Continue to wean oxygen 2. PT/OT eval
--- NOTE | 2022-02-15 09:17 | SW/DCPLANNER ---
Addendum entered by Bia Rose 02/17/22 10:07: The plan is for this patient to discharge home with mother today. Patient's mother (Ashley [phone]) stated that patient will be moving to [place] at [address] [place] [address] in [place]. I will set patient up Medicaid Waiver services through Elsa terrell/ [employer] Patient's mother will transport patient home today. Addendum entered by Bia [place] 02/15/22 13:45: At this point patient prefers to return home. I will continue to follow up with patient/family. Addendum entered by Bia [place] 02/15/22 11:39: [facility] has stated they are unable to accept this patient due to Trilogy machine. I attempted to speak with patient while in room however patient was on a Zoom call w/ Social Security. I will follow up with patient after call. Patient's mother did speak with me in the [place]zo stating that patient will not be willing to go to local rehab facility but would be interested in home health services. I explained to mother I will follow up with patient after call and home health services may not be an option due to Medicaid insurance. I will discuss local facilities vs home health vs [facility] facility ([facility]) vs Medicaid Waiver services. Addendum entered by Bia Rose 02/15/22 10:57: [facility]/ [facility] is currently reviewing patient information. I have called and updated patient's mother. Original Note: I spoke with this patient and her mother this AM regarding plans once medically stable for discharge. Prior to hospital admission patient was living at home with assistance from her mother. Patient's mother plans on returning home to [place] soon and stated that patient will have to live independently. Patient/mother expressed an interest in rehab once ready for discharge. PT/OT has been ordered and I will follow up with patient once completed. Patient is interested in [facility] at time of discharge.
--- NOTE | 2022-02-15 09:29 | EXP.PULM.PN ---
Subjective *Date: 02/15/22 *Time: 11:39 Interval history: No acute change in patient respiratory status. Continue to have symptoms of shortness also with cough. No significant productive phlegm. Pulmonology Exam Inpatient Vital signs and Labs for Last 24 Hours: Temp Pulse Resp BP Pulse Ox FiO2 98.4 F 98 H 20 112/72 93 L 35 02/15/22 08:00 02/15/22 08:00 02/15/22 08:00 02/15/22 08:00 02/15/22 08:00 02/15/22 06:10 Laboratory Results - last 24 hr 02/15/22 05:48: WBC 10.5, RBC 3.87 L, Hgb 10.7 L, Hct 36.4 L, MCV 93.8, MCH 27.5, MCHC 29.3 L, RDW 16.7, Plt Count 215, MPV 8.5, Neut % (Auto) 83.9 H, Lymph % (Auto) 9.8 L, [place] % (Auto) 5.2, Eos % (Auto) 0.3, Baso % (Auto) 0.7, Neut # (Auto) 8.8 H, Lymph # (Auto) 1.0, [place] # (Auto) 0.6, Eos # (Auto) 0.0, Baso # (Auto) 0.1 02/15/22 05:48: Sodium 136, Potassium 5.3 H, Chloride 92 L, Carbon Dioxide 38 H, Anion Gap 11.3, BUN 23 H, Creatinine 0.80 D, Estimated Creat Clear 65, Estimated GFR 77, Est GFR ( Amer) 93 D, Glucose 120 H, Calcium 8.1 L I & O for Labs for Last 24 Hours: Intake & Output 02/12/22 02/13/22 02/14/22 02/15/22 23:59 23:59 23:59 23:59 Intake Total 1080 / 1080 960 / 1404 844 / 844 Output Total 200 / 200 200 / 200 200 / 200 Balance 880 / 880 760 / 1204 644 / 644 Weight 356 lb 8 oz 356 lb 8.011 oz 357 lb 2.382 oz 256 lb 12.8 oz Microbiology Reports for the Last 24 Hours: Microbiology 02/12/22 17:40 Blood Blood Culture - Preliminary NO GROWTH AFTER 48 HOURS 02/12/22 17:40 Blood Blood Culture - Preliminary NO GROWTH AFTER 48 HOURS Head: Present normocephalic and atraumatic ENT: Present normal exam and normal oropharynx Comment:: Tracheostomy in place. Neck: Present normal inspection and full ROM Respiratory: Present respiratory distress and able to speak in complete sentences; Absent wheezes or crackles Cardiac: Present S1/S2, Tachycardia and radial pulses present GI: Present soft and distention; Absent tenderness or guarding Rectal (female): Present deferred (female): Present deferred Skin: Present intact; Absent cyanosis or jaundice Neuro: Present alert, awake and oriented x 3 Extremities: Present normal inspection; Absent clubbing or cyanosis Psychiatric: Present normal affect and cooperative Assessment and Plan *Assessment and plan (1) Acute and chronic respiratory failure: Status: Acute Category: Medical Code(s): J96.20 - Acute and chronic respiratory failure, unspecified whether with hypoxia or hypercapnia (2) Pneumonia: Status: Acute Category: Medical Code(s): J18.9 - Pneumonia, unspecified organism (3) Acute and chronic respiratory failure with hypercapnia: Status: Acute Category: Medical Code(s): J96.22 - Acute and chronic respiratory failure with hypercapnia Plan #Acute on chronic hypercarbic respiratory failure: #CAP: Asthma, Chronic hypercarbic respiratory failure, due to hypoventilation syndrome and obstructive sleep apnea. Recently initiated on trilogy NIV via her trach. ABG on admission reviewed, patient noted significant hypercarbic respiratory with a pH of 7.20 PCO2 94.1. Labs personally reviewed, mild leukocytosis neutrophil predominant. COVID-19 and flu PCR negative CTA on admission reviewed, no evidence of dense consolidation/airspace disease. Chest clear to auscultate with no significant wheezing. Presumably with a machine, per the patient has not been compliant with her trilogy.. Complaince reviewed, patient has not been compliant with her trilogy, on average using only 3.8 hours/day. Patient getting an average ventilation of 400 cc tidal volume. Patient pulmonary problems including asthma, ahypercarbic respiratory failure, obesity hypoventilation syndrome. This will be well optimized the patient were to be compliant with her nebulization treatments along with her NIV however her noncomplianc
--- NOTE | 2022-02-15 09:45 | HMH.OTEV ---
OT Inpatient Evaluation Rehab OT IP Evaluation Start: 02/15/22 08:58 Freq: ONCE Status: Complete Protocol: Document 02/15/22 09:[facility] (Rec: 02/15/22 09:45 [facility] [id number]) Rehab OT IP Assessment Subjective History Pt oriented x 3 on arrival. Pt was admitted on 02/12/22 via ED due to Right lower lobe pneumonia, Acute and chronic respiratory failure. Prior to being in the hospital, pt's mother who resides in [place], has been living with patient since July. Mother and patient report she requires assistance with dressing, bathing, and some feeding. Patient also reports she is dependent upon mother for completion of all IADLs. She does not use any AE during ambulation or transfers. Mother reports within the past 3 weeks, pt has shown a steady decline in health and functional transfers/ADLS. The following information was copied from history and physical report: this patient presents to the ed with -47-year-old female presenting to the emergency department with low oxygen saturation, shortness of breath.? Symptoms have been going on and off for the last week.? Today, she felt lightheaded upon standing and actually fell.? Says she struck the back of her head.? Unsure if she lost consciousness.? She was able to get up on her own.? Currently has a dull, throbbing headache located in the posterior.? No neck pain.? No vision changes.? She had a fall couple days ago as well. ? Suffers from chronic respiratory failure, tracheostomy dependent.? She
--- NOTE | 2022-02-15 10:04 | HMH.PTEV ---
Physical Therapy Evaluation Rehab PT IP Evaluation Start: 02/15/22 08:57 Freq: ONCE Status: Active Protocol: Document 02/15/22 09:33 [facility] (Rec: 02/15/22 10:04 [facility] [id number]) Subjective/History History History This is the initial PT IP evaluation for Carin Badillo , a 47 y/o female admitted to [facility] for pneumonia. Pt has chronic respiratory failure , pt had significant bout w/ COVID earlier this year requiring tracheostomy. Pt also had a recent fall from lightheadedness. Pt has medical h/o of morbid obesity, asthma, COPD, hypercapnia, and is a smoker and tobacco user. Written by Nilda Tran, SPT Subjective Subjective Pt reports she lives in one- story house with 3 steps to enter and no HR. Pt notes she has had her mother living with her since July. Prior to admission, pt notes she wasn't using any AD and was on 3L of oxygen. Pt mother reports pt is unable to perform ADLs such as dressing and bathing and that her mother has been aiding in these as well as cooking. Rehab PT IP Eval Objective Appearance Patient Behavior Appropriate,Cooperative Patient Orientation Person,Place,Name,Birthday, Year,Situation Difficulty following instructions none Speech Pattern Clear,Appropriate Ambulation Patient Able to Ambulate Yes Ambulation Observation IP General Gait Pattern Observation Wide Based Gait,Shuffling Step Ambulation Distance (feet) 6 Ambulation Assistive Device None Ambulation Ability Supervision/Stand by,Contact Guard/Hand Hold Balance Ability to Arise Able, uses arms to help Sitting Balance Steady, safe Standing Balance Steady, wide stance Dynamic Sitting Balance Ability Good Dynamic Standing Balance Ability Fair Transfers Bed Transfer Ability Supervision/Stand by Chair Transfer Ability Supervision/Stand by Sit to Stand Bed Transfer Ability Supervision/Stand by Sit to Stand Chair Transfer Ability
[2022-02-15 10:49] LABS: ABG Base Excess 10.9 mmol/L (-2.4-2.3); ABG HCO3 37.9 mmhg (22.0-26.0); ABG PH 7.27 mmol/L (7.35-7.45); ABG TCO2 40.5 mmhg (23-27)
[2022-02-15 10:52] LABS: ABG PCO2 85.4 mmhg (35.0-45.0); Allen's Test ACCEPTABLE; Oxygen 35% %; Source Left Radial
[2022-02-15 10:53] LABS: ABG Oxygen Saturation 94 % (90-100)
--- NOTE | 2022-02-15 13:31 | PC.NURSE ---
rounded on patient. patient has been up to chair. resting at this time. earlier round patient stated she was doing good and that she felt better. was drinking coffee. stated she had no needs at that time. family at bedside no questions or concerns encouraged them to ring out as needed.
--- NOTE | 2022-02-15 17:32 | PC.NURSE ---
Dr. Diaz aware of critical abg this am and recommended pt to continue to use trilogy more frequently. Pt has worn at least 2 hrs this shift.
[2022-02-16] VITALS (9 sets, daily range): BP systolic 112–141; BP diastolic 65–83; PULSE 57–105; RESP 16–24; TEMP 36.5–37.4; O2SAT 92–99; BMI 66.7
--- NOTE | 2022-02-16 04:26 | PC.NURSE ---
pt has been very agitated and resistive to care this shift. she is a&oX4. she has refused to use the trilogy since about 0030 this shift. she has c/o pain in her legs and been medicated prn per aug. she now remains on trach collar at 10L and is tolerating well. she has required suctioning several times t/o the night. she has used the bedside commode with 1 person assist. o2 sats drop to 80's with movement, and when needing suctioned. lung sounds diminished.
[2022-02-16 06:08] LABS: Basophils # 0.1 K/mm3 (0-0.2); Basophils % 0.6 % (0.1-2.0); Eosinophils # 0.1 K/mm3 (0.0-0.4); Eosinophils % 0.8 % (0.1-12.0); Hematocrit 32.2 % (37.0-47.0); Hemoglobin 9.8 g/dL (12.2-16.2); Lymphocytes % 10.5 % (10-50); Mean Corpuscular HGB Conc 30.3 g/dL (31.8-35.4); Mean Corpuscular Hemoglobin 27.2 pg (27.0-31.2); Mean Corpuscular Volume 89.9 fl (81-99); Mean Platelet Volume 8.5 fl (7.4-10.4); Monocytes # 0.6 K/mm3 (0.1-1.0); Monocytes % 6.4 % (1.7-9.3); Neutrophils % 81.8 % (37.0-80.0); Platelet Count 197 K/mm3 (142-424); Red Blood Count 3.59 M/mm3 (4.20-5.40); Red Cell Distribution Width 16.3 % (11.5-17.5); White Blood Count 9.8 K/mm3 (4.8-10.8)
[2022-02-16 06:25] LABS: Blood Urea Nitrogen 19 mg/dl (7-17); Calcium 8.2 mg/dl (8.4-10.2); Chloride 95 mmol/L (98-107); Creatinine Clearance Estimated 74 mL/min (50-200); Estimated Glomerular Filt Rate 89 ml/min (>60); GFR (African American) 108 ML/MIN (>60); Glucose 120 mg/dl (74-100); Sodium 136 mmol/L (136-145)
[2022-02-16 06:32] LABS: Carbon Dioxide 38 mmol/L (22.0-30.0)
--- NOTE | 2022-02-16 08:52 | EXP.ACUTE.PN ---
Subjective *Date: 02/16/22 *Time: 19:11 Interval history: 47-year-old female patient sitting up in bed resting quietly, she continues to complain of right lower extremity pain. Trach collar at 35%. Nursing states patient did not use trilogy NIV during night, patient states she did. Explained to patient unless she is using trilogy NIV per instructions we will have to decrease medications that could possibly sedate her due to her respiratory status. Right lower extremity bruising less today than yesterday and patient was able to transfer self from bed to chair with no difficulty. Medical Exam Vital signs and Labs for Last 24 Hours: Temp Pulse Resp BP Pulse Ox FiO2 97.7 F 93 H 18 141/76 H 99 35 02/16/22 08:00 02/16/22 08:00 02/16/22 08:00 02/16/22 08:00 02/16/22 08:00 02/16/22 06:12 Laboratory Results - last 24 hr 02/15/22 09:01: Specimen Source Left radial, O2 % 35%, ABG pH 7.27 L, ABG pCO2 85.4 H, ABG pO2 71.0 L, ABG HCO3 37.9 H, ABG Total CO2 40.5 H, ABG O2 Saturation 94, ABG Base Excess 10.9 H, Vaughn Test Acceptable 02/16/22 05:58: WBC 9.8, RBC 3.59 L, Hgb 9.8 L, Hct 32.2 L, MCV 89.9, MCH 27.2, MCHC 30.3 L, RDW 16.3, Plt Count 197, MPV 8.5, Neut % (Auto) 81.8 H, Lymph % (Auto) 10.5, [place] % (Auto) 6.4, Eos % (Auto) 0.8, Baso % (Auto) 0.6, Neut # (Auto) 8.0 H, Lymph # (Auto) 1.0, [place] # (Auto) 0.6, Eos # (Auto) 0.1, Baso # (Auto) 0.1 02/16/22 05:58: Sodium 136, Potassium 5.0, Chloride 95 L, Carbon Dioxide 38 H, Anion Gap 8.0, BUN 19 H, Creatinine 0.70, Estimated Creat Clear 74, Estimated GFR 89, Est GFR ( Amer) 108, Glucose 120 H, Calcium 8.2 L I & O for Labs for Last 24 Hours: Intake & Output 02/13/22 02/14/22 02/15/22 02/16/22 23:59 23:59 23:59 23:59 Intake Total 1080 / 1080 960 / 1404 2076 / 2298 462 / 462 Output Total 200 / 200 200 / 200 1200 / 1500 500 / 500 Balance 880 / 880 760 / 1204 876 / 798 -38 / -38 Weight 356 lb 8.011 oz 357 lb 2.382 oz 356 lb 8 oz 353 lb 9.6 oz Head: Present atraumatic and normocephalic Eyes: Present as per HPI ENT: Present normal exam Neck: Present trachea midline and other; Absent tenderness Respiratory: Present rhonchi and wheezes; Absent accessory muscle use Cardiac: Present Reg Rate and Rhythm GI: Present soft and normal bowel sounds; Absent tenderness or guarding Extremities: Present full ROM, normal capillary refill and edema; Absent tenderness Skin: Present intact and ecchymosis (RLE); Absent cyanosis or erythema Neuro: Present Motor Function Intact and Weakness; Absent Numbness Assessment and Plan *Assessment and plan (1) Acute and chronic respiratory failure with hypercapnia: Status: Acute Category: Medical Code(s): J96.22 - Acute and chronic respiratory failure with hypercapnia (2) History of smoking 30 or more pack years: Status: Chronic Category: Social Hx Code(s): Z87.891 - Personal history of nicotine dependence (3) Pickwickian syndrome: Status: Acute Category: Medical Code(s): E66.2 - Morbid (severe) obesity with alveolar hypoventilation (4) Right lower lobe pneumonia: Status: Acute Category: Medical Code(s): J18.9 - Pneumonia, unspecified organism (5) Obesity, morbid: Status: Acute Category: Medical Code(s): E66.01 - Morbid (severe) obesity due to excess calories Plan 1. Use Trilogy per instruction 2. Continue current medical regimen 3. Pulmonary following
--- NOTE | 2022-02-16 09:50 | EXP.PULM.PN ---
Subjective *Date: 02/16/22 *Time: 11:48 Interval history: No acute respiratory events overnight. Patient did complain symptoms of respiratory distress. Complains of significant right lower extremity pain. Pulmonology Exam Inpatient Vital signs and Labs for Last 24 Hours: Temp Pulse Resp BP Pulse Ox FiO2 97.7 F 93 H 18 141/76 H 99 35 02/16/22 08:00 02/16/22 08:00 02/16/22 08:00 02/16/22 08:00 02/16/22 08:00 02/16/22 06:12 Laboratory Results - last 24 hr 02/15/22 09:01: Specimen Source Left radial, O2 % 35%, ABG pH 7.27 L, ABG pCO2 85.4 H, ABG pO2 71.0 L, ABG HCO3 37.9 H, ABG Total CO2 40.5 H, ABG O2 Saturation 94, ABG Base Excess 10.9 H, Vaughn Test Acceptable 02/16/22 05:58: WBC 9.8, RBC 3.59 L, Hgb 9.8 L, Hct 32.2 L, MCV 89.9, MCH 27.2, MCHC 30.3 L, RDW 16.3, Plt Count 197, MPV 8.5, Neut % (Auto) 81.8 H, Lymph % (Auto) 10.5, [place] % (Auto) 6.4, Eos % (Auto) 0.8, Baso % (Auto) 0.6, Neut # (Auto) 8.0 H, Lymph # (Auto) 1.0, [place] # (Auto) 0.6, Eos # (Auto) 0.1, Baso # (Auto) 0.1 02/16/22 05:58: Sodium 136, Potassium 5.0, Chloride 95 L, Carbon Dioxide 38 H, Anion Gap 8.0, BUN 19 H, Creatinine 0.70, Estimated Creat Clear 74, Estimated GFR 89, Est GFR ( Amer) 108, Glucose 120 H, Calcium 8.2 L I & O for Labs for Last 24 Hours: Intake & Output 02/13/22 02/14/22 02/15/22 02/16/22 23:59 23:59 23:59 23:59 Intake Total 1080 / 1080 960 / 1404 2076 / 2298 462 / 462 Output Total 200 / 200 200 / 200 1200 / 1500 500 / 500 Balance 880 / 880 760 / 1204 876 / 798 -38 / -38 Weight 356 lb 8.011 oz 357 lb 2.382 oz 356 lb 8 oz 353 lb 9.6 oz Microbiology Reports for the Last 24 Hours: Microbiology 02/12/22 17:40 Blood Blood Culture - Preliminary NO GROWTH AFTER 48 HOURS 02/12/22 17:40 Blood Blood Culture - Preliminary NO GROWTH AFTER 48 HOURS Head: Present normocephalic and atraumatic ENT: Present normal exam and normal oropharynx Comment:: Tracheostomy in place. Neck: Present normal inspection and full ROM Respiratory: Present respiratory distress and able to speak in complete sentences; Absent wheezes or crackles Cardiac: Present S1/S2, Tachycardia and radial pulses present GI: Present soft and distention; Absent tenderness or guarding Rectal (female): Present deferred (female): Present deferred Skin: Present intact; Absent cyanosis or jaundice Neuro: Present alert, awake and oriented x 3 Extremities: Present normal inspection and edema; Absent clubbing or cyanosis Comment:: Bilateral lower extremity swelling. Right lower extremity tends and warm than left lower extremity. Lower extremity Doppler negative. Psychiatric: Present normal affect and cooperative Assessment and Plan *Assessment and plan (1) Acute and chronic respiratory failure: Status: Acute Category: Medical Code(s): J96.20 - Acute and chronic respiratory failure, unspecified whether with hypoxia or hypercapnia (2) Pneumonia: Status: Acute Category: Medical Code(s): J18.9 - Pneumonia, unspecified organism (3) Acute and chronic respiratory failure with hypercapnia: Status: Acute Category: Medical Code(s): J96.22 - Acute and chronic respiratory failure with hypercapnia Plan #Acute on chronic hypercarbic respiratory failure: #CAP: Asthma, Chronic hypercarbic respiratory failure, due to hypoventilation syndrome and obstructive sleep apnea. Recently initiated on trilogy NIV via her trach. ABG on admission reviewed, patient noted significant hypercarbic respiratory with a pH of 7.20 PCO2 94.1. Labs personally reviewed, mild leukocytosis neutrophil predominant. COVID-19 and flu PCR negative CTA on admission reviewed, no evidence of dense consolidation/airspace disease. Chest clear to auscultate with no significant wheezing. Presumably with a machine, per the patient has not been compliant with her trilogy.. Complaince reviewed, marii
--- NOTE | 2022-02-16 10:40 | P.PN_ITS ---
Subjective *Date: 02/16/22 *Time: 10:40 Medical Exam Vital signs and Labs for Last 24 Hours: Temp Pulse Resp BP Pulse Ox FiO2 97.7 F 93 H 18 141/76 H 99 35 02/16/22 08:00 02/16/22 08:00 02/16/22 08:00 02/16/22 08:00 02/16/22 08:00 02/16/22 06:12 Laboratory Results - last 24 hr 02/15/22 09:01: Specimen Source Left radial, O2 % 35%, ABG pH 7.27 L, ABG pCO2 85.4 H, ABG pO2 71.0 L, ABG HCO3 37.9 H, ABG Total CO2 40.5 H, ABG O2 Saturation 94, ABG Base Excess 10.9 H, Vaughn Test Acceptable 02/16/22 05:58: WBC 9.8, RBC 3.59 L, Hgb 9.8 L, Hct 32.2 L, MCV 89.9, MCH 27.2, MCHC 30.3 L, RDW 16.3, Plt Count 197, MPV 8.5, Neut % (Auto) 81.8 H, Lymph % (Auto) 10.5, [place] % (Auto) 6.4, Eos % (Auto) 0.8, Baso % (Auto) 0.6, Neut # (Auto) 8.0 H, Lymph # (Auto) 1.0, [place] # (Auto) 0.6, Eos # (Auto) 0.1, Baso # (Auto) 0.1 02/16/22 05:58: Sodium 136, Potassium 5.0, Chloride 95 L, Carbon Dioxide 38 H, Anion Gap 8.0, BUN 19 H, Creatinine 0.70, Estimated Creat Clear 74, Estimated GFR 89, Est GFR ( Amer) 108, Glucose 120 H, Calcium 8.2 L I & O for Labs for Last 24 Hours: Intake & Output 02/13/22 02/14/22 02/15/22 02/16/22 23:59 23:59 23:59 23:59 Intake Total 1080 / 1080 960 / 1404 2076 / 2298 462 / 462 Output Total 200 / 200 200 / 200 1200 / 1500 500 / 500 Balance 880 / 880 760 / 1204 876 / 798 -38 / -38 Weight 161.706 kg 162 kg 161.706 kg 160.39 kg Microbiology Reports for the Last 24 Hours: Microbiology 02/13/22 13:31 Sputum - Expectorated Sputum Gram Stain - Final 02/13/22 13:31 Sputum - Expectorated Sputum Sputum Culture - Preliminary The patient's infection will respond to the chosen ABx?: Yes (EMPIRIC THERAPY) Is the patient receiving the right drug, dose, and route?: Yes Could a more targeted ABx be ordered?: No (CULTURE PENDING)
--- NOTE | 2022-02-16 14:21 | PC.NURSE ---
rounded on patient. patient resting in bed. two sticks by this nurse for new iv 20 gauge in r ac successful, after 2 sticks by kasi rn, and 2 by shabbir cabral. patient had no complaints or concerns at this time. encouraged her to ring out as needed
--- NOTE | 2022-02-16 19:58 | PC.NURSE ---
On this shift Pt had trilogy on @ 1300- 1351. Then placed trilogy back on @ 1400. Pt had on for approx a 1/2 hr. Pt placed back on trilogy @ 1800 and currently has on at this time. Have educated pt on need for using. When on trach collar pt has been between 8-10 L. Have suctioned pt as well as rt several times this shift. Vape found in pt's bed, educated pt on not being able to use in room and locked in drawer., pt stated it is blueberry . Pt has had several IV's come out and refuses to bath. New 20 g in the R AC placed at shift change. CB in reach and VSS. Have applied ice to R leg, which is brusied, warm to touch and edematous. is aware of the above, as well as Octavia Hampton APRN.
[2022-02-17] VITALS: BP 97/60; PULSE 68; RESP 18; TEMP 37.2; O2SAT 94
[2022-02-17 04:00] VITALS: BP 101/56; PULSE 93; RESP 20; TEMP 37.2; O2SAT 94
[2022-02-17 05:00] VITALS: BMI 67.2
--- NOTE | 2022-02-17 05:52 | PC.NURSE ---
NO ACUTE CHANGES SINCE PREVIOUS ASSESSMENT. PT HAS RESTED WELL THIS SHIFT. LUNG SOUNDS STILL HAVE FINE CRACKLES THROUGH OUT BILATERALLY. PT HAS WORE TRILOGY MOST OF SHIFT AND WHILE SLEEPING. PT DID GET UP TO SHOWER WITH THE HELP OF THIS RN THIS SHIFT. PT HAS BEEN USING THE BCS INDEPENDENTLY. PT STATES THAT SHE FEELS, PRETTY BAD THIS AM BECAUSE OF PAIN. PT HAS BEEN MEDICATED PER MAR FOR PAIN THIS SHIFT. VSS. CALL THOMAS WITHIN REACH.
--- NOTE | 2022-02-17 06:00 | XR_ITS ---
PROCEDURE INFORMATION: Exam: XR Chest Exam date and time: 02/17/2022 4:55 AM Age: 47 years old Clinical indication: Condition or disease; Lung condition and disease; Pneumonia; Additional info: Cap TECHNIQUE: Imaging protocol: Radiologic exam of the chest. Views: 1 view. COMPARISON: CR XR CHEST PORTABLE 02/12/2022 4:42 PM FINDINGS: Tubes, catheters and devices: Distance between tip of TRACHEOSTOMY tube and rosa m is approximately 7.1 cm. Lungs: Prominent lung markings/peribronchial thickening without definite evidence of consolidation. Patchy atelectasis and scarring in the lungs bilaterally. Pleural spaces: No evidence of pleural effusion or pneumothorax. Heart/Mediastinum: Cardiomegaly with pulmonary vascular congestion. Bones/joints: NA IMPRESSION: 1. Chronic cardiopulmonary changes without evidence of an active lung parenchymal lesion. 2. Possibility of underlying CHF/pulmonary edema cannot be excluded. Recommend followup to complete resolution.
[2022-02-17 06:20] VITALS: PULSE 100; O2SAT 96
[2022-02-17 06:36] LABS: Blood Urea Nitrogen 19 mg/dl (7-17); Calcium 8.3 mg/dl (8.4-10.2); Chloride 91 mmol/L (98-107); Creatinine Clearance Estimated 65 mL/min (50-200); Estimated Glomerular Filt Rate 77 ml/min (>60); GFR (African American) 93 ML/MIN (>60); Glucose 92 mg/dl (74-100); Potassium 4.9 mmoL/L (3.5-5.1); Sodium 136 mmol/L (136-145)
[2022-02-17 06:38] LABS: Basophils % 0.4 % (0.1-2.0); Eosinophils # 0.1 K/mm3 (0.0-0.4); Eosinophils % 0.8 % (0.1-12.0); Hematocrit 30.7 % (37.0-47.0); Hemoglobin 9.6 g/dL (12.2-16.2); Lymphocytes # 1.1 K/mm3 (0.7-4.5); Lymphocytes % 13.2 % (10-50); Mean Corpuscular HGB Conc 31.1 g/dL (31.8-35.4); Mean Corpuscular Hemoglobin 27.8 pg (27.0-31.2); Mean Corpuscular Volume 89.2 fl (81-99); Mean Platelet Volume 8.4 fl (7.4-10.4); Monocytes # 0.6 K/mm3 (0.1-1.0); Monocytes % 6.5 % (1.7-9.3); Neutrophils # 6.8 K/mm3 (1.8-7.8); Neutrophils % 79.1 % (37.0-80.0); Platelet Count 187 K/mm3 (142-424); Red Blood Count 3.44 M/mm3 (4.20-5.40); Red Cell Distribution Width 16.7 % (11.5-17.5); White Blood Count 8.6 K/mm3 (4.8-10.8)
[2022-02-17 06:43] LABS: Anion Gap 13.9 mEq/L (5-15); Carbon Dioxide 36 mmol/L (22.0-30.0)
[2022-02-17 08:00] VITALS: BP 116/85; PULSE 101; RESP 18; TEMP 37.1; O2SAT 95; O2SAT 96
--- NOTE | 2022-02-17 09:48 | EXP.PULM.PN ---
Subjective *Date: 02/17/22 *Time: 11:39 Interval history: No acute respiratory vents overnight. Patient admits continued improvement in symptoms, still complains of cough with productive phlegm, improved from prior. Pulmonology Exam Inpatient Vital signs and Labs for Last 24 Hours: Temp Pulse Resp BP Pulse Ox FiO2 99.0 F 100 H 20 101/56 L 96 35 02/17/22 04:00 02/17/22 06:20 02/17/22 04:00 02/17/22 04:00 02/17/22 08:00 02/16/22 06:12 Laboratory Results - last 24 hr 02/17/22 05:50: WBC 8.6, RBC 3.44 L, Hgb 9.6 L, Hct 30.7 L, MCV 89.2, MCH 27.8, MCHC 31.1 L, RDW 16.7, Plt Count 187, MPV 8.4, Neut % (Auto) 79.1, Lymph % (Auto) 13.2, [place] % (Auto) 6.5, Eos % (Auto) 0.8, Baso % (Auto) 0.4, Neut # (Auto) 6.8, Lymph # (Auto) 1.1, [place] # (Auto) 0.6, Eos # (Auto) 0.1, Baso # (Auto) 0.0 02/17/22 05:50: Sodium 136, Potassium 4.9, Chloride 91 L, Carbon Dioxide 36 H, Anion Gap 13.9, BUN 19 H, Creatinine 0.80, Estimated Creat Clear 65, Estimated GFR 77, Est GFR ( Amer) 93, Glucose 92 D, Calcium 8.3 L I & O for Labs for Last 24 Hours: Intake & Output 02/14/22 02/15/22 02/16/22 02/17/22 23:59 23:59 23:59 23:59 Intake Total 960 / 1404 2076 / 2298 1112 / 1112 Output Total 200 / 200 1200 / 1500 1800 / 1800 Balance 760 / 1204 876 / 798 -688 / -688 Weight 357 lb 2.382 oz 356 lb 8 oz 353 lb 9.6 oz 356 lb 2 oz Microbiology Reports for the Last 24 Hours: Microbiology 02/13/22 13:31 Sputum - Expectorated Sputum Gram Stain - Final 02/13/22 13:31 Sputum - Expectorated Sputum Sputum Culture - Preliminary Gram Negative [place] Head: Present normocephalic and atraumatic ENT: Present normal exam and normal oropharynx Comment:: Tracheostomy in place. Neck: Present normal inspection and full ROM Respiratory: Present respiratory distress and able to speak in complete sentences; Absent wheezes or crackles Cardiac: Present S1/S2, Tachycardia and radial pulses present GI: Present soft and distention; Absent tenderness or guarding Rectal (female): Present deferred (female): Present deferred Skin: Present intact; Absent cyanosis or jaundice Neuro: Present alert, awake and oriented x 3 Extremities: Present normal inspection and edema; Absent clubbing or cyanosis Comment:: Bilateral lower extremity swelling. Right lower extremity tends and warm than left lower extremity, improved from yesterday lower extremity Doppler negative. Psychiatric: Present normal affect and cooperative Assessment and Plan *Assessment and plan (1) Acute and chronic respiratory failure: Status: Acute Category: Medical Code(s): J96.20 - Acute and chronic respiratory failure, unspecified whether with hypoxia or hypercapnia (2) Pneumonia: Status: Acute Category: Medical Code(s): J18.9 - Pneumonia, unspecified organism (3) Acute and chronic respiratory failure with hypercapnia: Status: Acute Category: Medical Code(s): J96.22 - Acute and chronic respiratory failure with hypercapnia Plan #Acute on chronic hypercarbic respiratory failure: #CAP: Asthma, Chronic hypercarbic respiratory failure, due to hypoventilation syndrome and obstructive sleep apnea. Recently initiated on trilogy NIV via her trach. ABG on admission reviewed, patient noted significant hypercarbic respiratory with a pH of 7.20 PCO2 94.1. Labs personally reviewed, mild leukocytosis neutrophil predominant. COVID-19 and flu PCR negative CTA on admission reviewed, no evidence of dense consolidation/airspace disease. Chest clear to auscultate with no significant wheezing. Presumably with a machine, per the patient has not been compliant with her trilogy.. Complaince reviewed, patient has not been compliant with her trilogy, on average using only 3.8 hours/day. Patient getting an average ventilation of 400 cc tidal volume. Patient pulmonary problems including asthma, ahypercarbic respiratory failure, obesi
[2022-02-17 11:05] LABS: ABG Base Excess 10.5 mmol/L (-2.4-2.3); ABG HCO3 34.9 mmhg (22.0-26.0); ABG Oxygen Saturation 89 % (90-100); ABG PH 7.43 mmol/L (7.35-7.45); ABG PO2 57.8 mmhg (80-100); ABG TCO2 36.6 mmhg (23-27)
--- NOTE | 2022-02-17 11:05 | PC.NURSE ---
PT ON HOME TRILOGY WHEN BLOOD GAS WAS DRAWN. 4L HOOKED UP TO IT AT THE TIME.
--- NOTE | 2022-02-17 11:05 | EXP.DC.SUM ---
General Admission date:: 02/12/22 Discharge date: 02/17/22 HPI HPI HPI: this patient presents to the ed with -47-year-old female presenting to the emergency department with low oxygen saturation, shortness of breath.? Symptoms have been going on and off for the last week.? Today, she felt lightheaded upon standing and actually fell.? Says she struck the back of her head.? Unsure if she lost consciousness.? She was able to get up on her own.? Currently has a dull, throbbing headache located in the posterior.? No neck pain.? No vision changes.? She had a fall couple days ago as well.? Suffers from chronic respiratory failure, tracheostomy dependent.? She uses 3 L oxygen as needed.? She has had a cough that is frequent, hacking.? Productive of clear yellow sputum.? No recent antibiotic or steroid use.? No fevers, chills, nausea, vomiting.?summary this is a 47-year-old female with history of chronic hypoxic respiratory failure, requiring tracheostomy, presenting to the emergency department with fall, head injury, cough and shortness of breath.? Patient clinically stable on arrival.? Initial oxygen saturations were 88% on room air.? Placed on 3 L by trach collar.? Will obtain noncontrast head CT to assess for trauma.? Will obtain CBC, CMP, VBG, chest x-ray, EKG. EKG shows sinus rhythm.? No ST segment changes.? No arrhythmia. Laboratory results show elevated creatinine at 1.4.? Baseline is around 0.8. Slight leukocytosis at 11,000.? No anemia.? No abnormality of glucose or electrolytes. proBNP elevated at 700. Chest x-ray shows low lung volumes, evidence of pulmonary edema.? Also a right lower consolidation, concerning for pneumonia.? Patient given 125 Solu-Medrol, 1 g Rocephin and 500 mg azithromycin. She is on increased oxygen requirement via trach collar.? Plan to admit for further management and treatment of pneumonia, LEONEL. Patient most recently saw Dr. Diaz in his clinic on 01/17/[address] Salcido for admission for Dr. Chris Hospital Course Hospital Course Hospital Course: 02/12/[address]: FINDINGS: Brain:? Images are slightly motion degraded.? No hemorrhage. Unremarkable white matter for the patient's age. No mass effect. No evolving territorial infarct.? Cerebral ventricles: No ventriculomegaly. Paranasal sinuses: Visualized sinuses are unremarkable. No fluid levels. Mastoid air cells: Visualized mastoid air cells are well aerated. The globes are proptotic on a chronic basis. Bones/joints: Unremarkable. No acute fracture. Soft tissues: Unremarkable. IMPRESSION: No acute intracranial abnormality seen. Electronically signed by Lupe Falk MD a 02/13/2022 chest CTA: FINDINGS: Tubes, catheters and devices: Tracheostomy tube is in place. Pulmonary arteries: No pulmonary emboli are identified to the level of thelobar arteries in the upper lobes and proximal segmental arteries in the lowerlobes. More distal evaluation is limited by suboptimal contrast bolus timing. Aorta: Unremarkable. No aortic aneurysm. No aortic dissection. Lungs: Mild bibasilar atelectasis. Otherwise, no focal airspace consolidation. Pleural spaces: Unremarkable. No pneumothorax. No pleural effusion. Heart: Unremarkable. No cardiomegaly. No pericardial effusion. Lymph nodes: Unremarkable. No enlarged lymph nodes. Bones/joints: Unremarkable. No acute fracture. Soft tissues: Unremarkable. IMPRESSION: No pulmonary emboli are identified to the level of the lobar arteries in theupper lobes and proximal segmental arteries in the lower lobes. Electronically signed by Dannielle Champagne MD? 02/14/2022 bilateral lower extremity Dopplers: No evidence of deep venous thrombosis bilateral lower extremities. Pulmonology has seen and recommends: Plan #Acute on chronic hypercarbic respiratory failure: #CAP: Asthma, Chronic hypercarbic respiratory failure, due to hypoventilation syndrome and obstructive sleep apnea.? Recently initiated on trilogy NIV via he
[2022-02-17 11:07] LABS: Allen's Test Acceptable; Oxygen 4L %; Source Left Radial
[2022-02-17 11:08] LABS: ABG PCO2 54.3 mmhg (35.0-45.0)
[2022-02-17 11:20] VITALS: PULSE 101; PULSE 105; O2SAT 91
--- NOTE | 2022-02-17 11:31 | PC.NURSE ---
Bee Hampton and Dr. Diaz aware of ABG results.
--- NOTE | 2022-02-17 11:33 | PC.NURSE ---
family made aware of d/c order
[2022-02-17 12:00] VITALS: O2SAT 99
--- NOTE | 2022-02-18 10:44 | CARE MANAGER ---
Spoke with patient for post-discharge phone call. She states that she is good and has no issues at this time.
== END 2022-02-17 13:53 | disposition home or self-care (01) | DRG 177 ==
LOC: ER 17:25 → 2ND 18:29
PROVIDERS: Internal Medicine Pulmonary Disease; Nurse Practitioner Family; Admitting Provider Internal Medicine Adolescent Medicine; Emergency Provider Emergency Medicine; PCP Emergency Medicine; Visit Provider Emergency Medicine
DX: J15.6 Pneumonia due to other Gram-negative bacteria (principal); I50.33 Acute on chronic diastolic (congestive) heart failure; J96.22 Acute and chronic respiratory failure with hypercapnia; E66.2 Morbid (severe) obesity with alveolar hypoventilation; Z68.44 Body mass index [BMI] 60.0-69.9, adult; J18.9 Pneumonia, unspecified organism; I11.0 Hypertensive heart disease with heart failure; E03.9 Hypothyroidism, unspecified; Z43.0 Encounter for attention to tracheostomy; E78.5 Hyperlipidemia, unspecified; G62.9 Polyneuropathy, unspecified; F41.9 Anxiety disorder, unspecified; F17.210 Nicotine dependence, cigarettes, uncomplicated
CPT/HCPCS: 36415; 70450; 71045; 71275; 80048; 80053; 82803; 82962; 83605; 83880; 84484; 85007; 85025; 87040; 87070; 87077; 87186; 87205; 93005; 93970; 94640; 94760; 94761; 97110; 97116; 97161; 97166; 97530; 97535; 99285; C9803; J0456; J0696; J2405; Q9967; U0003; U0005

== ENCOUNTER 2022-02-21 14:07 | Observation (INO) | payer MEDICAID, SELFPAY ==
[2022-02-21] VITALS (9 sets, daily range): BP systolic 118–180; BP diastolic 65–99; PULSE 81–104; RESP 16–24; TEMP 36.6–37.1; O2SAT 89–99; BMI 67.6; BMI 75.8
--- NOTE | 2022-02-21 14:41 | XR_ITS ---
FINAL REPORT CLINICAL HISTORY: injury, swelling, redness, hotness for 1 week FINDINGS: RIGHT KNEE 3 views of the right knee were obtained. There is no acute fracture or dislocation. Visualized joint spaces are normally aligned. There is an osteophyte along the superior margin of the patella. There is mild narrowing of the medial compartment joint space. There is significant soft tissue swelling anterior to the patella measuring up to 6.2 cm IMPRESSION: Significant soft tissue swelling anterior to the patella with no acute bony abnormality. Reviewed, Interpreted and Dictated by aLzaro Pal MD Transcribed by Ashley Arcos Authenticated and [facility]
--- NOTE | 2022-02-21 14:41 | CA_ITS ---
FINAL REPORT TECHNIQUE: Ultrasound images of the deep venous system were obtained from the right groin to the calf veins. CLINICAL HISTORY: leg swelling, morbid obesity, patient states she fell 8 days ago with injury to right leg. Bilateral venous dopplers 1 week ago negative for DVT and SVT. Limited scan secondary to body habitus. HTN, smoker. FINDINGS: The visualized deep venous system is normally compressible. Normal flow is identified. IMPRESSION: No evidence of right lower extremity DVT. Reviewed, Interpreted and Dictated by Lazaro Pal MD Transcribed by Quentin Child Authenticated and [facility]
--- NOTE | 2022-02-21 14:41 | XR_ITS ---
FINAL REPORT CLINICAL HISTORY: injury, swelling, redness, hotness for 1 week FINDINGS: RIGHT TIBIA FIBULA 2 views were obtained. There is no acute fracture or dislocation. The joint spaces are intact. There is significant soft tissue swelling anterior to the tibia measuring up to 5.4 cm IMPRESSION: Significant soft tissue swelling anterior to the tibia with no acute bony abnormality. Reviewed, Interpreted and Dictated by Lazaro Pal MD Transcribed by Ashley Arcos Authenticated and . [facility]
--- NOTE | 2022-02-21 14:46 | HMH.EDGENADL ---
Discharge Plan Disposition Patient Disposition: Home, Self-Care Condition: Fair Prescriptions Prescriptions: New sulfamethoxazole-trimethoprim [Bactrim DS] 800-160 mg tablet 1 tab PO Q12H 10 Days Qty: 20 0RF cephalexin 500 mg capsule 500 mg PO Q12H 10 Days Qty: 20 0RF hydrocodone-acetaminophen 5-325 mg tablet 1 tab PO Q6H PRN (Reason: pain) Qty: 14 0RF No Action lamotrigine 100 mg tablet 100 mg PO DAILY Qty: 90 0RF levothyroxine 25 mcg tablet 25 mcg PO DAILY Qty: 90 0RF ziprasidone HCl 60 mg capsule 60 mg PO BID Qty: 60 2RF Rx Instructions: give with food (meal/snack) vilazodone 40 mg tablet 40 mg PO DAILY Qty: 90 0RF Rx Instructions: must administer with a meal/food nicotine 21 mg/24 hr patch 24 hour See Rx Instructions .ROUTE .COMPLEX Qty: 28 0RF Dose Instruction: APPLY 1 PATCH TO THE SKIN EVERY DAY Rx Instructions: APPLY 1 PATCH TO THE SKIN EVERY DAY Trelegy Ellipta 100-62.5-25 mcg blister with device See Rx Instructions .ROUTE .COMPLEX Qty: 28 0RF Dose Instruction: INHALE 1 PUFF BY MOUTH EVERY DAY Rx Instructions: INHALE 1 PUFF BY MOUTH EVERY DAY diazepam 10 mg tablet 10 mg PO BID Qty: 60 0RF hydrocodone-acetaminophen 5-325 mg tablet 1 tab PO BIDP PRN (Reason: Moderate Pain (Scale Score 5-6)) Qty: 60 0RF gabapentin 800 mg tablet 800 mg PO TID Qty: 90 0RF levofloxacin 750 mg tablet 750 mg PO DAILY 7 Days Qty: 7 0RF albuterol sulfate 0.63 mg/3 mL solution for nebulization 0.63 mg inhalation Q6H sumatriptan succinate 100 mg tablet 100 mg PO NEEDED PRN (Reason: Migraine Headache) budesonide 0.25 mg/2 mL suspension for nebulization 0.25 mg IH BID polyethylene glycol 3350 [Miralax] 17 gram/dose powder 17 gm PO DAILY albuterol sulfate [ProAir HFA] 90 mcg/actuation HFA aerosol inhaler 1 puff inhalation Q6HP PRN (Reason: Shortness Of Breath) promethazine 25 mg tablet 25 mg PO TIDP PRN (Reason: nausea and vomiting) clindamycin HCl 300 mg capsule 300 mg PO Q8H 5 Days Qty: 15 0RF lisinopril 10 MG tablet 10 mg PO DAILY omeprazole 40 MG capsule,delayed release(DR/EC) 40 mg PO DAILY Referrals Follow up/Referrals: Beny Chris MD [Primary Care Provider] - See instructions Clinical Impressions Clinical Impression: Cellulitis Instructions Patient Instructions: Cellulitis, Hydrocodone, Trimethoprim/Sulfamethoxazole (Alternative Therapy), Cephalexin Print Language Print Language: Turkmen Discharge ED Provider: Manuel Li General Adult HPI General Chief complaint: Extremity Injury, Lower Stated complaint: AO [id number] right leg pain, home accident Time Seen by Provider: 02/21/22 14:46 Mode of Arrival: Ambulatory History of Present Illness HPI narrative: 47-year-old female with a history of chronic respiratory failure with hypercapnia, morbid obesity. She had a fall a week ago and was hospitalized for pneumonia with hypercapnia. She experienced right lower extremity swelling in the interim, had negative Doppler in the hospital. She states swelling has progressed continually and now there is significant erythema of the right lower extremity. She denies worsening shortness of breath, chest pain, palpitations, tachycardia. Denies history of DVT or PE, is not currently taking anticoagulant. Denies fever, chills, nausea, vomiting. Related Data Home Medications Medication Instructions Recorded Confirmed lisinopril 10 mg tablet 10 mg PO DAILY High blood pressure 01/04/22 02/12/22 omeprazole 40 mg capsule,delayed 40 mg PO DAILY GERD 01/04/22 02/12/22 release albuterol sulfate 0.63 mg/3 mL 0.63 mg inhalation Q6H Breathing 02/12/22 02/13/22 solution for nebulization problems albuterol sulfate 90 mcg/actuation 1 puff inhalation Q6HP PRN 02/12/22 02/13/22 aerosol inhaler (ProAir HFA) Shortness Of Breath budesonide 0.25 mg/2 mL harshad
[2022-02-21 15:31] LABS: Basophils % 0.3 % (0.1-2.0); Eosinophils # 0.1 K/mm3 (0.0-0.4); Eosinophils % 0.9 % (0.1-12.0); Hematocrit 30.3 % (37.0-47.0); Hemoglobin 9.4 g/dL (12.2-16.2); Lymphocytes # 1.2 K/mm3 (0.7-4.5); Lymphocytes % 11.1 % (10-50); Mean Corpuscular HGB Conc 30.9 g/dL (31.8-35.4); Mean Corpuscular Hemoglobin 27.8 pg (27.0-31.2); Mean Platelet Volume 8.1 fl (7.4-10.4); Monocytes # 0.5 K/mm3 (0.1-1.0); Monocytes % 4.6 % (1.7-9.3); Neutrophils # 8.7 K/mm3 (1.8-7.8); Neutrophils % 83.1 % (37.0-80.0); Platelet Count 257 K/mm3 (142-424); Red Blood Count 3.37 M/mm3 (4.20-5.40); Red Cell Distribution Width 17.2 % (11.5-17.5); White Blood Count 10.5 K/mm3 (4.8-10.8)
[2022-02-21 15:38] LABS: Alanine Aminotransferase 17 U/L (12-78); Albumin Level 3.5 g/dl (3.5-5.0); Albumin/Globulin Ratio 1.1 (1.1-1.8); Alkaline Phosphatase 69 U/L (38-126); Anion Gap 9.8 mEq/L (5-15); Aspartate Amino Transferase 19 U/L (14-36); Blood Urea Nitrogen 16 mg/dl (7-17); Calcium 8.3 mg/dl (8.4-10.2); Carbon Dioxide 34 mmol/L (22.0-30.0); Chloride 99 mmol/L (98-107); Creatinine Clearance Estimated 58 mL/min (50-200); Estimated Glomerular Filt Rate 67 ml/min (>60); GFR (African American) 81 ML/MIN (>60); Globulin 3.2 g/dL (1.3-3.2); Glucose 89 mg/dl (74-100); Potassium 4.8 mmoL/L (3.5-5.1); Sodium 138 mmol/L (136-145); Total Protein,Serum 6.7 g/dl (6.3-8.2)
[2022-02-21 15:41] LABS: Bilirubin,Total 0.1 mg/dl (0.2-1.3)
[2022-02-21 15:45] LABS: INR 0.95 (0.9-1.1); Prothrombin Time 10.3 seconds (10.1-12.5)
[2022-02-21 15:56] LABS: Procalcitonin 0.103 ng/mL (0.0-2.0)
--- NOTE | 2022-02-21 16:19 | HMH.EDGENADL ---
Discharge Plan Disposition Patient Disposition: Admitted As Inpatient Condition: Fair Prescriptions Prescriptions: New sulfamethoxazole-trimethoprim [Bactrim DS] 800-160 mg tablet 1 tab PO Q12H 10 Days Qty: 20 0RF cephalexin 500 mg capsule 500 mg PO Q12H 10 Days Qty: 20 0RF hydrocodone-acetaminophen 5-325 mg tablet 1 tab PO Q6H PRN (Reason: pain) Qty: 14 0RF No Action lamotrigine 100 mg tablet 100 mg PO DAILY Qty: 90 0RF levothyroxine 25 mcg tablet 25 mcg PO DAILY Qty: 90 0RF ziprasidone HCl 60 mg capsule 60 mg PO BID Qty: 60 2RF Rx Instructions: give with food (meal/snack) vilazodone 40 mg tablet 40 mg PO DAILY Qty: 90 0RF Rx Instructions: must administer with a meal/food nicotine 21 mg/24 hr patch 24 hour See Rx Instructions .ROUTE .COMPLEX Qty: 28 0RF Dose Instruction: APPLY 1 PATCH TO THE SKIN EVERY DAY Rx Instructions: APPLY 1 PATCH TO THE SKIN EVERY DAY Trelegy Ellipta 100-62.5-25 mcg blister with device See Rx Instructions .ROUTE .COMPLEX Qty: 28 0RF Dose Instruction: INHALE 1 PUFF BY MOUTH EVERY DAY Rx Instructions: INHALE 1 PUFF BY MOUTH EVERY DAY diazepam 10 mg tablet 10 mg PO BID Qty: 60 0RF hydrocodone-acetaminophen 5-325 mg tablet 1 tab PO BIDP PRN (Reason: Moderate Pain (Scale Score 5-6)) Qty: 60 0RF gabapentin 800 mg tablet 800 mg PO TID Qty: 90 0RF levofloxacin 750 mg tablet 750 mg PO DAILY 7 Days Qty: 7 0RF albuterol sulfate 0.63 mg/3 mL solution for nebulization 0.63 mg inhalation Q6H sumatriptan succinate 100 mg tablet 100 mg PO NEEDED PRN (Reason: Migraine Headache) budesonide 0.25 mg/2 mL suspension for nebulization 0.25 mg IH BID polyethylene glycol 3350 [Miralax] 17 gram/dose powder 17 gm PO DAILY albuterol sulfate [ProAir HFA] 90 mcg/actuation HFA aerosol inhaler 1 puff inhalation Q6HP PRN (Reason: Shortness Of Breath) promethazine 25 mg tablet 25 mg PO TIDP PRN (Reason: nausea and vomiting) clindamycin HCl 300 mg capsule 300 mg PO Q8H 5 Days Qty: 15 0RF lisinopril 10 MG tablet 10 mg PO DAILY omeprazole 40 MG capsule,delayed release(DR/EC) 40 mg PO DAILY Referrals Follow up/Referrals: Beny Chris MD [Primary Care Provider] - See instructions Clinical Impressions Clinical Impression: Cellulitis Instructions Patient Instructions: Trimethoprim/Sulfamethoxazole (Alternative Therapy), Cellulitis, Cephalexin, Hydrocodone Print Language Print Language: Maltese Discharge ED Provider: Manuel Li General Adult HPI General Chief complaint: Extremity Injury, Lower Stated complaint: AO [id number] right leg pain, home accident Time Seen by Provider: 02/21/22 14:46 Mode of Arrival: Wheelchair Source of Information: Patient Limitations: No Limitations Description of Symptoms (Recalled from ER Triage Doc. by RN): Pt c/o worsening pain, redness, swelling, bruising of RLE since a fall on 02/13 Related Data Home Medications Medication Instructions Recorded Confirmed lisinopril 10 mg tablet 10 mg PO DAILY High blood pressure 01/04/22 02/12/22 omeprazole 40 mg capsule,delayed 40 mg PO DAILY GERD 01/04/22 02/12/22 release albuterol sulfate 0.63 mg/3 mL 0.63 mg inhalation Q6H Breathing 02/12/22 02/13/22 solution for nebulization problems albuterol sulfate 90 mcg/actuation 1 puff inhalation Q6HP PRN 02/12/22 02/13/22 aerosol inhaler (ProAir HFA) Shortness Of Breath budesonide 0.25 mg/2 mL suspension 0.25 mg inhalation BID soa 02/12/22 02/12/22 for nebulization polyethylene glycol 3350 17 17 gm PO DAILY bowel regimen 02/12/22 02/12/22 gram/dose oral powder (Miralax) sumatriptan succinate 100 mg tablet 100 mg PO NEEDED PRN Migraine 02/12/22 02/13/22 Headache promethazine 25 mg tablet 25 mg PO TIDP PRN nausea and 02/13/22 02/13/22 vomiting Previous Rx's Medication Instructions Recorded l
--- NOTE | 2022-02-21 16:34 | PC.NURSE ---
dr adela hardwick
--- NOTE | 2022-02-21 16:35 | EXP.PHA.CONS ---
Pharmacy Consult Date: 02/21/22 Time: 16:35 Referring provider: DR LI Reason for Consult:: VANCOMYCIN DOSING CONSULT Allergies Allergy/AdvReac Type Severity Reaction Status Date / Time No Known Allergies Allergy Verified 01/19/22 14:07 Home Medications Medication Instructions Recorded Confirmed Type lamotrigine 100 mg tablet 100 mg PO DAILY Bipolar #90 tabs 12/24/21 02/12/22 Rx levothyroxine 25 mcg tablet 25 mcg PO DAILY Thyriod #90 tabs 12/24/21 02/12/22 Rx lisinopril 10 mg tablet 10 mg PO DAILY High blood pressure 01/04/22 02/12/22 History omeprazole 40 mg capsule,delayed 40 mg PO DAILY GERD 01/04/22 02/12/22 History release ziprasidone HCl 60 mg capsule 60 mg PO BID mood #60 caps 01/21/22 02/12/22 Rx vilazodone 40 mg tablet 40 mg PO DAILY Depression #90 tabs 02/03/22 02/12/22 Rx albuterol sulfate 0.63 mg/3 mL 0.63 mg inhalation Q6H Breathing 02/12/22 02/13/22 History solution for nebulization problems albuterol sulfate 90 mcg/actuation 1 puff inhalation Q6HP PRN 02/12/22 02/13/22 History aerosol inhaler (ProAir HFA) Shortness Of Breath budesonide 0.25 mg/2 mL suspension 0.25 mg inhalation BID soa 02/12/22 02/12/22 History for nebulization polyethylene glycol 3350 17 17 gm PO DAILY bowel regimen 02/12/22 02/12/22 History gram/dose oral powder (Miralax) sumatriptan succinate 100 mg tablet 100 mg PO NEEDED PRN Migraine 02/12/22 02/13/22 History Headache promethazine 25 mg tablet 25 mg PO TIDP PRN nausea and 02/13/22 02/13/22 History vomiting diazepam 10 mg tablet 10 mg PO BID Anxiety #60 tabs 02/14/22 Rx fluticasone fur. 100 mcg-umeclid See Rx Instructions .Route 02/14/22 Rx 62.5 mcg-vilant 25 mcg .COMPLEX #28 ea inhalat.powder (Trelegy Ellipta) gabapentin 800 mg tablet 800 mg PO TID Neuropathy #90 tabs 02/14/22 Rx hydrocodone 5 mg-acetaminophen 325 1 tab PO BIDP PRN Moderate Pain 02/14/22 Rx mg tablet (Scale Score 5-6) #60 tabs nicotine 21 mg/24 hr daily See Rx Instructions .Route 02/14/22 Rx transdermal patch .COMPLEX #28 patches clindamycin HCl 300 mg capsule 300 mg PO Q8H 5 days #15 caps 02/17/22 Rx levofloxacin 750 mg tablet 750 mg PO DAILY 7 days #7 tabs 02/18/22 Rx cephalexin 500 mg capsule 500 mg PO Q12H 10 days #20 caps 02/21/22 Rx hydrocodone 5 mg-acetaminophen 325 1 tab PO Q6H PRN pain #14 tabs 02/21/22 Rx mg tablet sulfamethoxazole 800 1 tab PO Q12H 10 days #20 tabs 02/21/22 Rx mg-trimethoprim 160 mg tablet (Bactrim DS) New Prescriptions to Start Prescriptions: cephalexin Enyart,Manuel hydrocodone-acetaminophen Enyart,Manuel sulfamethoxazole-trimethoprim [Bactrim DS] Enyart,Manuel Height: 1.55 m Weight: 162.386 kg Laboratory Results:: Laboratory Results - last 24 hr 02/21/22 15:20: WBC 10.5, RBC 3.37 L, Hgb 9.4 L, Hct 30.3 L, MCV 90.0, MCH 27.8, MCHC 30.9 L, RDW 17.2, Plt Count 257, MPV 8.1, Neut % (Auto) 83.1 H, Lymph % (Auto) 11.1, [place] % (Auto) 4.6, Eos % (Auto) 0.9, Baso % (Auto) 0.3, Neut # (Auto) 8.7 H, Lymph # (Auto) 1.2, [place] # (Auto) 0.5, Eos # (Auto) 0.1, Baso # (Auto) 0.0 02/21/22 15:20: PT 10.3, INR 0.95 02/21/22 15:20: Sodium 138, Potassium 4.8, Chloride 99, Carbon Dioxide 34 H, Anion Gap 9.8, BUN 16, Creatinine 0.90, Estimated Creat Clear 58, Estimated GFR 67, Est GFR ( Amer) 81, Glucose 89, Calcium 8.3 L, Total Bilirubin 0.1 L, AST 19, ALT 17, Alkaline Phosphatase 69, Total Protein 6.7, Albumin 3.5, Globulin 3.2, Albumin/Globulin Ratio 1.1, Procalcitonin 0.103 Medical History: Medical History (Updated 02/21/22 @ 16:05 by Manuel Li MD) Abnormal stress test Acute and chronic respiratory failure Acute and chronic respiratory failure with hypercapnia Acute on chronic diastolic heart failure Acute on chronic diastolic heart failure Angina, class III Anxiety Asthma Asthma Chest pain Chronic respiratory failure with hypercapnia Dago
--- NOTE | 2022-02-21 16:37 | PC.NURSE ---
dr cannon speaking with Dr Chris
[2022-02-21 16:47] LABS: ABG Base Excess 0.8 mmol/L (-2.4-2.3); ABG HCO3 27.4 mmhg (22.0-26.0); ABG Oxygen Saturation 96 % (90-100); ABG PH 7.29 mmol/L (7.35-7.45); ABG PO2 88.2 mmhg (80-100); ABG TCO2 29.2 mmhg (23-27)
--- NOTE | 2022-02-21 16:47 | PC.NURSE ---
Called executive housekeeper for admission.
[2022-02-21 16:51] LABS: Allen's Test Acceptable; Oxygen 28% %; Source Left Radial
[2022-02-21 17:29] LABS: C-Reactive Protein 179.8 mg/L (0-4)
[2022-02-21 17:33] LABS: Coronavirus 19, PCR Not Detected (NotDetected); Influenza A, PCR Not Detected (NotDetected); Influenza B, PCR Not Detected (NotDetected)
[2022-02-21 17:40] LABS: Erythrocyte Sedimentation Rate 124 mm/hr (0-20)
[2022-02-21 18:08] LABS: Lactic Acid < 0.5 mmol/L (0.7-2.1)
--- NOTE | 2022-02-21 18:57 | PC.NURSE ---
Attempted to call report on pt, but was informed that it is shift change and that they would let them know.
--- NOTE | 2022-02-21 20:38 | PC.NURSE ---
PT ARRIVED TO FLOOR VIA STRETCHER AT THIS TIME
[2022-02-22] VITALS (8 sets, daily range): BP systolic 99–145; BP diastolic 55–84; PULSE 78–107; RESP 18–20; TEMP 36.5–37.1; O2SAT 90–97; BMI 75.8
[2022-02-22 07:12] LABS: Basophils % 0.4 % (0.1-2.0); Eosinophils # 0.1 K/mm3 (0.0-0.4); Eosinophils % 1.3 % (0.1-12.0); Hematocrit 28.8 % (37.0-47.0); Hemoglobin 8.7 g/dL (12.2-16.2); Lymphocytes # 0.9 K/mm3 (0.7-4.5); Lymphocytes % 13.5 % (10-50); Mean Corpuscular HGB Conc 30.2 g/dL (31.8-35.4); Monocytes # 0.5 K/mm3 (0.1-1.0); Monocytes % 6.5 % (1.7-9.3); Neutrophils # 5.4 K/mm3 (1.8-7.8); Neutrophils % 78.4 % (37.0-80.0); Platelet Count 218 K/mm3 (142-424); Red Cell Distribution Width 17.3 % (11.5-17.5); White Blood Count 6.9 K/mm3 (4.8-10.8)
[2022-02-22 07:25] LABS: Anion Gap 10.9 mEq/L (5-15); Blood Urea Nitrogen 17 mg/dl (7-17); Calcium 7.8 mg/dl (8.4-10.2); Carbon Dioxide 33 mmol/L (22.0-30.0); Chloride 98 mmol/L (98-107); Creatinine Clearance Estimated 58 mL/min (50-200); Estimated Glomerular Filt Rate 67 ml/min (>60); GFR (African American) 81 ML/MIN (>60); Glucose 97 mg/dl (74-100); Potassium 4.9 mmoL/L (3.5-5.1); Sodium 137 mmol/L (136-145)
--- NOTE | 2022-02-22 07:39 | PC.NURSE ---
no changes from previous assessment, pt with tracheostomy and trilogy in use through the night, RLE swollen, red and warm to touch, pt complains of pain in lower extremity rated a 10/10; pt is alert and oriented x4, lung sounds with bilateral rhonchi and wheezing throughout, 02 sats 95-97, no other issues noted at this time.
--- NOTE | 2022-02-22 07:50 | EXP.PHA.CONS ---
Pharmacy Consult Date: 02/22/22 Time: 07:50 Referring provider: DR. MUSA Reason for Consult:: VANCOMYCIN DOSING Allergies Allergy/AdvReac Type Severity Reaction Status Date / Time No Known Allergies Allergy Verified 01/19/22 14:07 Home Medications Medication Instructions Recorded Confirmed Type lamotrigine 100 mg tablet 100 mg PO DAILY Bipolar #90 tabs 12/24/21 02/21/22 Rx levothyroxine 25 mcg tablet 25 mcg PO DAILY Thyriod #90 tabs 12/24/21 02/21/22 Rx lisinopril 10 mg tablet 10 mg PO DAILY High blood pressure 01/04/22 02/21/22 History omeprazole 40 mg capsule,delayed 40 mg PO DAILY acid reflux 01/04/22 02/21/22 History release vilazodone 40 mg tablet 40 mg PO DAILY Depression #90 tabs 02/03/22 02/21/22 Rx albuterol sulfate 0.63 mg/3 mL 0.63 mg inhalation Q6H Breathing 02/12/22 02/21/22 History solution for nebulization problems albuterol sulfate 90 mcg/actuation 1 puff inhalation Q6HP PRN 02/12/22 02/21/22 History aerosol inhaler (ProAir HFA) Shortness Of Breath budesonide 0.25 mg/2 mL suspension 0.25 mg inhalation BID soa 02/12/22 02/21/22 History for nebulization polyethylene glycol 3350 17 17 gm PO DAILY bowel regimen 02/12/22 02/21/22 History gram/dose oral powder (Miralax) sumatriptan succinate 100 mg tablet 100 mg PO NEEDED PRN Migraine 02/12/22 02/21/22 History Headache promethazine 25 mg tablet 25 mg PO TIDP PRN nausea and 02/13/22 02/21/22 History vomiting diazepam 10 mg tablet 10 mg PO BID Anxiety #60 tabs 02/14/22 02/21/22 Rx gabapentin 800 mg tablet 800 mg PO TID Neuropathy #90 tabs 02/14/22 02/21/22 Rx hydrocodone 5 mg-acetaminophen 325 1 tab PO BIDP PRN Moderate Pain 02/14/22 02/21/22 Rx mg tablet (Scale Score 5-6) #60 tabs cephalexin 500 mg capsule 500 mg PO Q12H 10 days #20 caps 02/21/22 Rx clindamycin HCl 300 mg capsule 300 mg PO Q8H Infection 02/21/22 02/22/22 History fluticasone fur. 100 mcg-umeclid 1 ea inhalation DAILY Breathing 02/21/22 02/21/22 History 62.5 mcg-vilant 25 mcg problems inhalat.powder (Trelegy Ellipta) hydrocodone 5 mg-acetaminophen 325 1 tab PO Q6H PRN pain #14 tabs 02/21/22 Rx mg tablet levofloxacin 750 mg tablet 750 mg PO DAILY Infection 02/21/22 02/21/22 History sulfamethoxazole 800 1 tab PO Q12H 10 days #20 tabs 02/21/22 Rx mg-trimethoprim 160 mg tablet (Bactrim DS) ziprasidone HCl 60 mg capsule 60 mg PO BID Depression 02/22/22 02/21/22 History New Prescriptions to Start Prescriptions: cephalexin Enyart,Manuel hydrocodone-acetaminophen Enyart,Manuel sulfamethoxazole-trimethoprim [Bactrim DS] Enyart,Manuel Height: 1.55 m Weight: 182.146 kg Laboratory Results:: Laboratory Results - last 24 hr 02/21/22 15:20: WBC 10.5, RBC 3.37 L, Hgb 9.4 L, Hct 30.3 L, MCV 90.0, MCH 27.8, MCHC 30.9 L, RDW 17.2, Plt Count 257, MPV 8.1, Neut % (Auto) 83.1 H, Lymph % (Auto) 11.1, [place] % (Auto) 4.6, Eos % (Auto) 0.9, Baso % (Auto) 0.3, Neut # (Auto) 8.7 H, Lymph # (Auto) 1.2, [place] # (Auto) 0.5, Eos # (Auto) 0.1, Baso # (Auto) 0.0 02/21/22 15:20: PT 10.3, INR 0.95 02/21/22 15:20: Sodium 138, Potassium 4.8, Chloride 99, Carbon Dioxide 34 H, Anion Gap 9.8, BUN 16, Creatinine 0.90, Estimated Creat Clear 58, Estimated GFR 67, Est GFR ( Amer) 81, Glucose 89, Calcium 8.3 L, Total Bilirubin 0.1 L, AST 19, ALT 17, Alkaline Phosphatase 69, Total Protein 6.7, Albumin 3.5, Globulin 3.2, Albumin/Globulin Ratio 1.1, Procalcitonin 0.103 02/21/22 15:20: ESR 124 H 02/21/22 15:20: C-Reactive Protein 179.8 H 02/21/22 16:20: SARS-CoV-2 (PCR) Not detected, Influenza A Untype (PCR) Not detected, Influenza Type B (PCR) Not detected 02/21/22 16:27: Specimen Source Left radial, O2 % 28%, ABG pH 7.29 L, ABG pCO2 59.0 H, ABG pO2 88.2, ABG HCO3 27.4 H, ABG Total CO2 29.2 H, ABG O2 Saturation 96, ABG Base Excess 0.8, Vaughn Test Acceptable 02/21/22 17:26: Lactate < 0.5 L 02/22/22 06:35: WBC 6.9
--- NOTE | 2022-02-22 08:00 | HMH.PHAINT1 ---
Pharmacy Intervention Comments: MEDICATION RECONCILIATION COMPLETED ON PATIENT USING EXTERNAL FILL HISTORY FROM PHARMACY AND DISCHARGE SUMMARY FROM PREVIOUS ADMISSION. -ISIDRO GARCIA, SAID
--- NOTE | 2022-02-22 09:41 | US_ITS ---
FINAL REPORT CLINICAL HISTORY: R Knee pain FINDINGS: US EXTREMITY, NONVASCULAR, LIMITED, ANATOMIC SPECIFIC Sonographic images were obtained of the soft tissues of the right lower extremity. There is subcutaneous edema throughout the right lower extremity. There is a localized fluid collection at the area of redness and swelling measuring 2.4 x 1.7 cm. IMPRESSION: Localized fluid collection within the edematous tissue. Reviewed, Interpreted and Dictated by Lazaro Pal MD Transcribed by Quentin Child Authenticated and [facility]
--- NOTE | 2022-02-22 09:44 | EXP.HP ---
History of Present Illness *Admission Date: 02/22/22 *Reason for visit:: RLE pain increasing *History of present illness: 47 YOF presented to [facility] ED w/ c/o worsening pain, redness, swelling, bruising of RLE since a fall on 02/13. She was recently discharged for CAP and RLE Cellulitis, she reports taking Clinda and Levoflox per inst. she received cefepime and vancomycin IV in the emergency department [facility] Medical History Abnormal stress test Acute and chronic respiratory failure Acute and chronic respiratory failure with hypercapnia Acute on chronic diastolic heart failure Acute on chronic diastolic heart failure Angina, class III Anxiety Asthma Asthma Chest pain Chronic respiratory failure with hypercapnia Congestive heart failure COPD (chronic obstructive pulmonary disease) COVID-19 Depression Diabetes mellitus, type 2 Diastolic dysfunction Dizziness Dyspnea Edema Elevated d-dimer History of smoking 30 or more pack years HLD (hyperlipidemia) HTN (hypertension) Hypothyroidism (~11/21/17) Insomnia Neuropathy Obesity hypoventilation syndrome PAC (premature atrial contraction) Pneumonia Pneumonia Respiratory failure with hypoxia and hypercapnia Severe sepsis Sinus tachycardia SOB (shortness of breath) Tobacco abuse Tracheostomy in place Family History (Updated 02/21/22 @ 18:45 by Sharmaine Patel RN) Other No significant family history Social History (Updated 02/21/22 @ 18:45 by Sharmaine Patel, EWA) Smoking Status: Current every day smoker tobacco type: cigarettes packs per day: 1 alcohol intake: current substance use type: marijuana current occupational status: disabled Travel in the last 8 weeks: None household members: family housing: apartment number of children: 0 current occupational exposures/hazards: No caffeine: Yes Review of Systems Constitutional Constitutional: Reports system reviewed and no additional complaints, except as documented Eyes Eyes: Reports system reviewed and no additional complaints, except as documented ENT Ears, Nose, Mouth, and Throat: Reports system reviewed and no additional complaints, except as documented *Cardiovascular Cardiovascular: Reports system reviewed and no additional complaints, except as documented, Reports dyspnea and Reports dyspnea on exertion *Respiratory Respiratory: Reports cough, Reports dyspnea and Reports dyspnea on exertion *Gastrointestinal Gastrointestinal: Reports system reviewed and no additional complaints, except as documented *Genitourinary Genitourinary: Reports system reviewed and no additional complaints, except as documented *Musculoskeletal Musculoskeletal: Reports system reviewed and no additional complaints, except as documented Integumentary/Breasts Comments: RLE w/ redness, warmth, edematous, thigh to ankle R Ankle w/ bruising *Neurologic Neurologic: Reports system reviewed and no additional complaints, except as documented Psychiatric Psychiatric: Reports system reviewed and no additional complaints, except as documented Endocrine Endocrine: Reports system reviewed and no additional complaints, except as documented Hematologic/Lymphatic Hematologic/Lymphatic: Reports system reviewed and no additional complaints, except as documented Allergic/Immunologic Allergic/Immunologic: Reports system reviewed and no additional complaints, except as documented Meds Home Medications and Allergies Home Medications Medication Instructions Recorded Confirmed Type lamotrigine 100 mg tablet 100 mg PO DAILY Bipolar #90 tabs 12/24/21 02/21/22 Rx levothyroxine 25 mcg tablet 25 mcg PO DAILY Thyriod #90 tabs 12/24/21 02/21/22 Rx lisinopril 10 mg tablet 10 mg PO DAILY High blood pressure 01/04/22 02/21/22 History omeprazole 40 mg capsule,delayed 40 mg PO DAILY acid reflux 01/04/22 02/21/22 History release vilazodone 40 mg tablet 40 mg PO DAILY Depression #90 tab
--- NOTE | 2022-02-22 09:44 | EXP.HP ---
[facility] Medical History Abnormal stress test Acute and chronic respiratory failure Acute and chronic respiratory failure with hypercapnia Acute on chronic diastolic heart failure Acute on chronic diastolic heart failure Angina, class III Anxiety Asthma Asthma Chest pain Chronic respiratory failure with hypercapnia Congestive heart failure COPD (chronic obstructive pulmonary disease) COVID-19 Depression Diabetes mellitus, type 2 Diastolic dysfunction Dizziness Dyspnea Edema Elevated d-dimer History of smoking 30 or more pack years HLD (hyperlipidemia) HTN (hypertension) Hypothyroidism (~11/21/17) Insomnia Neuropathy Obesity hypoventilation syndrome PAC (premature atrial contraction) Pneumonia Pneumonia Respiratory failure with hypoxia and hypercapnia Severe sepsis Sinus tachycardia SOB (shortness of breath) Tobacco abuse Tracheostomy in place Family History (Updated 02/21/22 @ 18:45 by Sharmaine Patel RN) Other No significant family history Social History (Updated 02/21/22 @ 18:45 by Sharmaine Patel RN) Smoking Status: Current every day smoker tobacco type: cigarettes packs per day: 1 alcohol intake: current substance use type: marijuana current occupational status: disabled Travel in the last 8 weeks: None household members: family housing: apartment number of children: 0 current occupational exposures/hazards: No caffeine: Yes Review of Systems *Neurologic Neurologic: Reports system reviewed and no additional complaints, except as documented Meds Home Medications and Allergies Home Medications Medication Instructions Recorded Confirmed Type lamotrigine 100 mg tablet 100 mg PO DAILY Bipolar #90 tabs 12/24/21 02/21/22 Rx levothyroxine 25 mcg tablet 25 mcg PO DAILY Thyriod #90 tabs 12/24/21 02/21/22 Rx lisinopril 10 mg tablet 10 mg PO DAILY High blood pressure 01/04/22 02/21/22 History omeprazole 40 mg capsule,delayed 40 mg PO DAILY acid reflux 01/04/22 02/21/22 History release vilazodone 40 mg tablet 40 mg PO DAILY Depression #90 tabs 02/03/22 02/21/22 Rx albuterol sulfate 0.63 mg/3 mL 0.63 mg inhalation Q6H Breathing 02/12/22 02/21/22 History solution for nebulization problems albuterol sulfate 90 mcg/actuation 1 puff inhalation Q6HP PRN 02/12/22 02/21/22 History aerosol inhaler (ProAir HFA) Shortness Of Breath budesonide 0.25 mg/2 mL suspension 0.25 mg inhalation BID soa 02/12/22 02/21/22 History for nebulization polyethylene glycol 3350 17 17 gm PO DAILY bowel regimen 02/12/22 02/21/22 History gram/dose oral powder (Miralax) sumatriptan succinate 100 mg tablet 100 mg PO NEEDED PRN Migraine 02/12/22 02/21/22 History Headache promethazine 25 mg tablet 25 mg PO TIDP PRN nausea and 02/13/22 02/21/22 History vomiting diazepam 10 mg tablet 10 mg PO BID Anxiety #60 tabs 02/14/22 02/21/22 Rx gabapentin 800 mg tablet 800 mg PO TID Neuropathy #90 tabs 02/14/22 02/21/22 Rx hydrocodone 5 mg-acetaminophen 325 1 tab PO BIDP PRN Moderate Pain 02/14/22 02/21/22 Rx mg tablet (Scale Score 5-6) #60 tabs cephalexin 500 mg capsule 500 mg PO Q12H 10 days #20 caps 02/21/22 Rx clindamycin HCl 300 mg capsule 300 mg PO Q8H Infection 02/21/22 02/22/22 History fluticasone fur. 100 mcg-umeclid 1 ea inhalation DAILY Breathing 02/21/22 02/21/22 History 62.5 mcg-vilant 25 mcg problems inhalat.powder (Trelegy Ellipta) hydrocodone 5 mg-acetaminophen 325 1 tab PO Q6H PRN pain #14 tabs 02/21/22 Rx mg tablet levofloxacin 750 mg tablet 750 mg PO DAILY Infection 02/21/22 02/21/22 History sulfamethoxazole 800 1 tab PO Q12H 10 days #20 tabs 02/21/22 Rx mg-trimethoprim 160 mg tablet (Bactrim DS) ziprasidone HCl 60 mg capsule 60 mg PO BID Depression 02/22/22 02/21/22 History New Prescriptions to Start Prescriptions: cephalexin Manuel Li hydrocodone-acetaminophen
--- NOTE | 2022-02-22 13:22 | PC.NURSE ---
ROUNDED ON PATIENT. ASSISTED WITH SITTING PATIENT UP TO EAT LUNCH. NO QUESTIONS OR CONCERNS. CALL LIGHT WITHIN REACH. ENCOURAGED HER TO RING OUT NEEDED.
--- NOTE | 2022-02-22 14:50 | PC.WOUNDNOTE ---
Right leg no open areas noted Right leg no open areas noted
--- NOTE | 2022-02-22 15:32 | PC.NURSE ---
Patient is difficult stick 4 attempts using ultrasound guided 20g RFA; spoke with SIMON Andujar order for PICC to be placed.
--- NOTE | 2022-02-22 15:39 | PC.NURSE ---
Nilesh v.o. from Dr. Chris for Valium 10mg PO BID for anxiety & Benadryl 25mg PO q 4 hrs PRN for itching when taking Percocet.
--- NOTE | 2022-02-22 16:22 | EXP.ORTH.CON ---
History of Present Illness *Admission Date: 02/21/22 *Reason for visit:: Consultation for right knee pain *History of present illness: 47-year-old female with significant cellulitis right lower extremity admitted for IV antibiotics orthopedics consulted this a.m. for right knee pain. She reports that she fell on her leg the cellulitis started getting worse. She had failed outpatient antibiotics. She presented to the hospital where she was admitted for IV antibiotics. Her pain is not necessarily regulated to her knee however she has a significant pain and swelling down the entire right lower extremity. PFSH PFS Medical History Abnormal stress test Acute and chronic respiratory failure Acute and chronic respiratory failure with hypercapnia Acute on chronic diastolic heart failure Acute on chronic diastolic heart failure Angina, class III Anxiety Asthma Asthma Chest pain Chronic respiratory failure with hypercapnia Congestive heart failure COPD (chronic obstructive pulmonary disease) COVID-19 Depression Diabetes mellitus, type 2 Diastolic dysfunction Dizziness Dyspnea Edema Elevated d-dimer History of smoking 30 or more pack years HLD (hyperlipidemia) HTN (hypertension) Hypothyroidism (~11/21/17) Insomnia Neuropathy Obesity hypoventilation syndrome PAC (premature atrial contraction) Pneumonia Pneumonia Respiratory failure with hypoxia and hypercapnia Severe sepsis Sinus tachycardia SOB (shortness of breath) Tobacco abuse Tracheostomy in place Family History (Updated 02/21/22 @ 18:45 by Sharmaine Patel RN) Other No significant family history Social History (Updated 02/21/22 @ 18:45 by Sharmaine Patel RN) Smoking Status: Current every day smoker tobacco type: cigarettes packs per day: 1 alcohol intake: current substance use type: marijuana current occupational status: disabled Travel in the last 8 weeks: None household members: family housing: apartment number of children: 0 current occupational exposures/hazards: No caffeine: Yes Review of Systems Constitutional Constitutional: Reports weakness *Cardiovascular Cardiovascular: Reports dyspnea *Respiratory Respiratory: Reports dyspnea *Musculoskeletal Musculoskeletal: Reports abnormal gait *Neurologic Neurologic: Reports system reviewed and no additional complaints, except as documented, Reports abnormal gait and Reports weakness Meds Home Medications and Allergies Home Medications Medication Instructions Recorded Confirmed Type lamotrigine 100 mg tablet 100 mg PO DAILY Bipolar #90 tabs 12/24/21 02/21/22 Rx levothyroxine 25 mcg tablet 25 mcg PO DAILY Thyriod #90 tabs 12/24/21 02/21/22 Rx lisinopril 10 mg tablet 10 mg PO DAILY High blood pressure 01/04/22 02/21/22 History omeprazole 40 mg capsule,delayed 40 mg PO DAILY acid reflux 01/04/22 02/21/22 History release vilazodone 40 mg tablet 40 mg PO DAILY Depression #90 tabs 02/03/22 02/21/22 Rx albuterol sulfate 0.63 mg/3 mL 0.63 mg inhalation Q6H Breathing 02/12/22 02/21/22 History solution for nebulization problems albuterol sulfate 90 mcg/actuation 1 puff inhalation Q6HP PRN 02/12/22 02/21/22 History aerosol inhaler (ProAir HFA) Shortness Of Breath budesonide 0.25 mg/2 mL suspension 0.25 mg inhalation BID soa 02/12/22 02/21/22 History for nebulization polyethylene glycol 3350 17 17 gm PO DAILY bowel regimen 02/12/22 02/21/22 History gram/dose oral powder (Miralax) sumatriptan succinate 100 mg tablet 100 mg PO NEEDED PRN Migraine 02/12/22 02/21/22 History Headache promethazine 25 mg tablet 25 mg PO TIDP PRN nausea and 02/13/22 02/21/22 History vomiting diazepam 10 mg tablet 10 mg PO BID Anxiety #60 tabs 02/14/22 02/21/22 Rx gabapentin 800 mg tablet 800 mg PO TID Neuropathy #90 tabs 02/14/22 02/21/22 Rx hydrocodone 5 mg-acetaminophen 325 1 tab PO BIDP PRN Moderate Pain 02/14/22 02/21/22 Rx mg tabl
--- NOTE | 2022-02-22 16:32 | CT_ITS ---
PROCEDURE INFORMATION: Exam: CT Right Lower Extremity With Contrast; Lower Leg Exam date and time: 02/22/2022 5:26 PM Age: 47 years old Clinical indication: Pain; Lower leg; Patient HX: Right le cellulits rule out abscess TECHNIQUE: Imaging protocol: CT of the Right lower extremity with intravenous contrast was performed. Exam focused on the lower leg. Radiation optimization: All CT scans at this facility use at least one of these dose optimization techniques: automated exposure control; mA and/or kV adjustment per patient size (includes targeted exams where dose is matched to clinical indication); or iterative reconstruction. Contrast material: ISOVUE; Contrast volume: 120 ml; Contrast route: IV; COMPARISON: US EXTREMITY RT LIMITED 02/22/2022 10:44 AM FINDINGS: Bones/joints: Along the anteromedial aspect of the proximal tibia, there is a multilobular high attenuation fluid collection measuring 9.8 x 4.5 cm on image 74 series 6. Moderate-sized suprapatellar knee effusion. Moderate tricompartmental osteoarthrosis of the knee. Irregularity of the lateral patellar facet is noted. This is favored to be chronic. There is edema in the subcutaneous tissues of the thigh, knee, calf, ankle, and foot. This spares the deep compartments. Soft tissues: Normal. IMPRESSION: 1. Along the anteromedial aspect of the proximal tibia, there is a multilobular high attenuation fluid collection measuring 9.8 x 4.5 cm on image 74 series 6. This is more likely to represent hematoma than abscess. There is no fluid collection with the appearance of abscess. 2. Moderate-sized suprapatellar knee effusion. If there is clinical concern for septic arthritis, consider image guided fluid sampling. 3. Widespread cellulitis.
--- NOTE | 2022-02-22 17:30 | PC.NURSE ---
Patient VSS, recvd pain meds x 2, pics of right leg in chart, new IV in RFA with 4 attempts using ultrasound guided method, had sister visit today. Patient has shown no s/s of acute distress noted, call light in reach, bed at lowest level for safety; will continue to monitor.
[2022-02-23] VITALS (8 sets, daily range): BP systolic 92–120; BP diastolic 50–79; PULSE 89–105; RESP 16–24; TEMP 36.6–36.9; O2SAT 85–100; BMI 75.7
[2022-02-23 06:34] LABS: Basophils % 0.3 % (0.1-2.0); Eosinophils # 0.1 K/mm3 (0.0-0.4); Eosinophils % 1.3 % (0.1-12.0); Hematocrit 28.6 % (37.0-47.0); Hemoglobin 8.6 g/dL (12.2-16.2); Mean Corpuscular HGB Conc 30.2 g/dL (31.8-35.4); Mean Corpuscular Hemoglobin 28.1 pg (27.0-31.2); Mean Corpuscular Volume 93.2 fl (81-99); Mean Platelet Volume 8.4 fl (7.4-10.4); Monocytes # 0.6 K/mm3 (0.1-1.0); Monocytes % 6.4 % (1.7-9.3); Neutrophils # 7.1 K/mm3 (1.8-7.8); Platelet Count 264 K/mm3 (142-424); Red Blood Count 3.07 M/mm3 (4.20-5.40); Red Cell Distribution Width 17.5 % (11.5-17.5); White Blood Count 8.8 K/mm3 (4.8-10.8)
[2022-02-23 06:42] LABS: Anion Gap 13.1 mEq/L (5-15); Blood Urea Nitrogen 25 mg/dl (7-17); Calcium 7.7 mg/dl (8.4-10.2); Carbon Dioxide 31 mmol/L (22.0-30.0); Chloride 95 mmol/L (98-107); Creatinine Clearance Estimated 37 mL/min (50-200); Estimated Glomerular Filt Rate 40 ml/min (>60); GFR (African American) 49 ML/MIN (>60); Glucose 93 mg/dl (74-100); Potassium 5.1 mmoL/L (3.5-5.1); Sodium 134 mmol/L (136-145)
--- NOTE | 2022-02-23 09:20 | EXP.ACUTE.PN ---
Subjective *Date: 02/23/22 *Time: 09:20 Interval history: 47-year-old female patient sitting up in bed she reports pain is at a tolerable level and has been using her trilogy machine. Ortho seen yesterday their input much appreciated. Medical Exam Vital signs and Labs for Last 24 Hours: Temp Pulse Resp BP Pulse Ox FiO2 98.3 F 96 H 16 120/70 85 L 28 02/23/22 16:00 02/23/22 16:00 02/23/22 16:00 02/23/22 16:00 02/23/22 16:00 02/23/22 11:41 Laboratory Results - last 24 hr 02/23/22 06:15: WBC 8.8 D, RBC 3.07 L, Hgb 8.6 L, Hct 28.6 L, MCV 93.2, MCH 28.1, MCHC 30.2 L, RDW 17.5, Plt Count 264, MPV 8.4, Neut % (Auto) 81.0 H, Lymph % (Auto) 11.0, [place] % (Auto) 6.4, Eos % (Auto) 1.3, Baso % (Auto) 0.3, Neut # (Auto) 7.1, Lymph # (Auto) 1.0, [place] # (Auto) 0.6, Eos # (Auto) 0.1, Baso # (Auto) 0.0 02/23/22 06:15: Sodium 134 L, Potassium 5.1, Chloride 95 L, Carbon Dioxide 31 H, Anion Gap 13.1, BUN 25 H D, Creatinine 1.40 H D, Estimated Creat Clear 37, Estimated GFR 40 L, Est GFR ( Amer) 49 L D, Glucose 93, Calcium 7.7 L 02/23/22 09:55: Vancomycin Trough 24.4 H I & O for Labs for Last 24 Hours: Intake & Output 02/20/22 02/21/22 02/22/22 02/23/22 23:59 23:59 23:59 23:59 Intake Total 1750 / 2100 1310 / 1310 Output Total 0 / 0 0 / 0 Balance 175 / 2100 1310 / 1310 Weight 401 lb 9 oz 401 lb 9.152 oz 401 lb 0.333 oz Head: Present atraumatic Eyes: Present as per HPI ENT: Present normal exam Neck: Present trachea midline Respiratory: Present wheezes and diminished air movement; Absent accessory muscle use Cardiac: Present Reg Rate and Rhythm GI: Present soft; Absent distention, tenderness or rigidity Extremities: Present full ROM, tenderness and edema Comment:: Right lower extremity with redness/warmth/edema Skin: Present intact, erythema, dry and warm Comment:: Right lower extremity with redness/warmth/edema Neuro: Present Cranial Nerve 2-12 Intact, Motor Function Intact, oriented x 3 and moves all extremities; Absent Numbness Assessment and Plan *Assessment and plan (1) Cellulitis of right lower extremity: Status: Acute Category: Medical Code(s): L03.115 - Cellulitis of right lower limb (2) Obesity: Status: Acute Qualifiers: Obesity type: due to excess calories Obesity classification: adult class 3 (BMI >= 40) Serious obesity comorbidity presence: without serious comorbidity Body mass index: BMI 45.0-49.9 Qualified Code(s): E66.01 - Morbid (severe) obesity due to excess calories; Z68.42 - Body mass index [BMI] 45.0-49.9, adult Category: Medical Code(s): E66.9 - Obesity, unspecified (3) Diastolic dysfunction: Status: Chronic Category: Medical Code(s): I51.9 - Heart disease, unspecified (4) Elevated left ventricular end-diastolic pressure (LVEDP): Status: Acute Category: Medical Code(s): R94.30 - Abnormal result of cardiovascular function study, unspecified (5) Obesity, morbid: Status: Acute Category: Medical Code(s): E66.01 - Morbid (severe) obesity due to excess calories (6) Right lower lobe pneumonia: Status: Acute Category: Medical Code(s): J18.9 - Pneumonia, unspecified organism (7) Pickwickian syndrome: Status: Acute Category: Medical Code(s): E66.2 - Morbid (severe) obesity with alveolar hypoventilation (8) Cellulitis: Status: Acute Category: Medical Code(s): L03.90 - Cellulitis, unspecified Assessment and plan all Dx Assessment and Plan All Dx:: 1. Continue current medical regimen 2. Ortho following 3. Trilogy machine per instruction
[2022-02-23 11:49] LABS: Vancomycin,Trough 24.4 ug/mL (5.0-10.0)
--- NOTE | 2022-02-23 13:50 | EXP.PHA.CONS ---
Pharmacy Consult Date: 02/23/22 Time: 13:50 Referring provider: DR. MUSA Reason for Consult:: VANCOMYCIN TROUGH LEVEL AND DOSE CHANGE Allergies Allergy/AdvReac Type Severity Reaction Status Date / Time No Known Allergies Allergy Verified 01/19/22 14:07 Home Medications Medication Instructions Recorded Confirmed Type lamotrigine 100 mg tablet 100 mg PO DAILY Bipolar #90 tabs 12/24/21 02/21/22 Rx levothyroxine 25 mcg tablet 25 mcg PO DAILY Thyriod #90 tabs 12/24/21 02/21/22 Rx lisinopril 10 mg tablet 10 mg PO DAILY High blood pressure 01/04/22 02/21/22 History omeprazole 40 mg capsule,delayed 40 mg PO DAILY acid reflux 01/04/22 02/21/22 History release vilazodone 40 mg tablet 40 mg PO DAILY Depression #90 tabs 02/03/22 02/21/22 Rx albuterol sulfate 0.63 mg/3 mL 0.63 mg inhalation Q6H Breathing 02/12/22 02/21/22 History solution for nebulization problems albuterol sulfate 90 mcg/actuation 1 puff inhalation Q6HP PRN 02/12/22 02/21/22 History aerosol inhaler (ProAir HFA) Shortness Of Breath budesonide 0.25 mg/2 mL suspension 0.25 mg inhalation BID soa 02/12/22 02/21/22 History for nebulization polyethylene glycol 3350 17 17 gm PO DAILY bowel regimen 02/12/22 02/21/22 History gram/dose oral powder (Miralax) sumatriptan succinate 100 mg tablet 100 mg PO NEEDED PRN Migraine 02/12/22 02/21/22 History Headache promethazine 25 mg tablet 25 mg PO TIDP PRN nausea and 02/13/22 02/21/22 History vomiting diazepam 10 mg tablet 10 mg PO BID Anxiety #60 tabs 02/14/22 02/21/22 Rx gabapentin 800 mg tablet 800 mg PO TID Neuropathy #90 tabs 02/14/22 02/21/22 Rx hydrocodone 5 mg-acetaminophen 325 1 tab PO BIDP PRN Moderate Pain 02/14/22 02/21/22 Rx mg tablet (Scale Score 5-6) #60 tabs cephalexin 500 mg capsule 500 mg PO Q12H 10 days #20 caps 02/21/22 Rx clindamycin HCl 300 mg capsule 300 mg PO Q8H Infection 02/21/22 02/22/22 History fluticasone fur. 100 mcg-umeclid 1 ea inhalation DAILY Breathing 02/21/22 02/21/22 History 62.5 mcg-vilant 25 mcg problems inhalat.powder (Trelegy Ellipta) hydrocodone 5 mg-acetaminophen 325 1 tab PO Q6H PRN pain #14 tabs 02/21/22 Rx mg tablet levofloxacin 750 mg tablet 750 mg PO DAILY Infection 02/21/22 02/21/22 History sulfamethoxazole 800 1 tab PO Q12H 10 days #20 tabs 02/21/22 Rx mg-trimethoprim 160 mg tablet (Bactrim DS) ziprasidone HCl 60 mg capsule 60 mg PO BID Depression 02/22/22 02/21/22 History New Prescriptions to Start Prescriptions: cephalexin Enyart,Manuel hydrocodone-acetaminophen Enyart,Manuel sulfamethoxazole-trimethoprim [Bactrim DS] Enyart,Manuel Height: 1.55 m Weight: 181.9 kg Laboratory Results:: Laboratory Results - last 24 hr 02/23/22 06:15: WBC 8.8 D, RBC 3.07 L, Hgb 8.6 L, Hct 28.6 L, MCV 93.2, MCH 28.1, MCHC 30.2 L, RDW 17.5, Plt Count 264, MPV 8.4, Neut % (Auto) 81.0 H, Lymph % (Auto) 11.0, [place] % (Auto) 6.4, Eos % (Auto) 1.3, Baso % (Auto) 0.3, Neut # (Auto) 7.1, Lymph # (Auto) 1.0, [place] # (Auto) 0.6, Eos # (Auto) 0.1, Baso # (Auto) 0.0 02/23/22 06:15: Sodium 134 L, Potassium 5.1, Chloride 95 L, Carbon Dioxide 31 H, Anion Gap 13.1, BUN 25 H D, Creatinine 1.40 H D, Estimated Creat Clear 37, Estimated GFR 40 L, Est GFR ( Amer) 49 L D, Glucose 93, Calcium 7.7 L 02/23/22 09:55: Vancomycin Trough 24.4 H Medical History: Medical History (Updated 02/22/22 @ 16:27 by Mir Villagomez DO) Abnormal stress test Acute and chronic respiratory failure Acute and chronic respiratory failure with hypercapnia Acute on chronic diastolic heart failure Acute on chronic diastolic heart failure Angina, class III Anxiety Asthma Asthma Chest pain Chronic respiratory failure with hypercapnia Congestive heart failure COPD (chronic obstructive pulmonary disease) COVID-19 Depression Diabetes mellitus, type 2 Diastolic dysfunction Dizziness Dyspnea Edema [place]
--- NOTE | 2022-02-23 15:00 | DIET.NUTRFU ---
Nursing consulted with this RD on weight hx, last admit on 02/16 her wt was 160.39kg and now 181.9kg. This is a 44# wt gain. Nursing indicated they are seeing edema in face, abdomen and then also in ankle that she came in with. Dad seemed concerned about the fluid gains. Manuelito HUNT was notified of wt gains. She has been on diuretic tx in past, renal labs are elevated at 28H and Cr 1.4 up from yesterday. Not sure if diuretic tx is feasible at this time. She is on cardiac diet. Will continue to follow POC
--- NOTE | 2022-02-23 15:53 | PC.NURSE ---
Addendum entered by Georgaina Fox RN 02/23/22 16:12: PT HAD A BATH AND LINEN CHANGE THIS SHIFT. EATING AND DRINKING WELL. ALERT AND ORIENTED X4. LUNG SOUNDS DIMINISHED WITH SCATTERED RHONCHI. ABDOMEN SOFT/OBESE/SWOLLEN. 4+ PITTING EDEMA WITH REDNESS NOTED TO RLE. FACIAL SWELLING NOTED. PT HAS BEEN VERY ANGRY THIS SHIFT AND DOES NOT UNDERSTAND WHY SHE NEEDS TO STAY IN THE HOSPITAL. PT STATES SHE HAS OVERCOME ALCOHOLISM AND DRUG ABUSE AND SHE COULD OVERCOME THIS IF EVERYONE WOULD JUST LEAVE HER ALONE AND LET HER TAKE CARE THE PROBLEM B/C SHE DOESN'T WANT TO . PT HAS BEEN MEDICATED PER AUG FOR PAIN. WILL CONTINUE TO MONITOR. Original Note: PT IS SITTING UP ON THE SOB WITH FAMILY AT BEDSIDE. PT HAS BEEN VERY AGITATED ON AND OFF T/O THE SHIFT. PT HAS BEEN ENCOURAGED TO USE TRILOGY BUT SHE HAS NOT USED IT ANY T/O THIS SHIFT B/C SHE STATED I'M TOO PISSED OFF RIGHT NOW TO WEAR IT . PT'S FATHER VISITED WITH PT THIS AFTERNOON AND ASKED WHAT WE HAVE BEEN GIVING PT B/C SHE WAS 2x THE SIZE NOW THAT SHE WAS WHEN HE SAW HER A FEW WEEKS AGO. PT HAS VOICED SEVERAL TIMES TO STAFF AND FAMILY THAT SHE WANTS TO GO HOME HOWEVER PT'S DAD STATED TO PT AND STAFF SHE DID NOT LOOK LIKE SHE WAS READY TO BE DISCHARGED CONSIDERING HOW SWOLLEN SHE IS. AFTER PT'S DAD LEFT PT WAS CRYING AND STATED ALL HE DID WAS COME TO VISIT ME JUST TO TELL ME I WAS FAT. NOTIFIED HUNG ABOUT PTS FAMILY CONCERNS. ACCORDING TO MEDICAL RECORD PT HAS GAINED 42LBS FROM JANUARY 04 TO NOW. NOTIFIED QUALITY ENGINEERING MANAGER AND SHE STATED SHE WOULD NOTIFY HUNG. WILL CONTINUE TO MONITOR.
--- NOTE | 2022-02-23 17:10 | P.PN_ITS ---
Subjective *Date: 02/23/22 *Time: 17:10 Interval history: Patient reports she feels about the same. She had CT scan done right lower extremity which I reviewed. She is continue to tolerate antibiotics reasonably well. White count is normalized. Continues with IV antibiotics. Ortho Exam (Inpt) Vital signs and Labs for Last 24 Hours: Temp Pulse Resp BP Pulse Ox FiO2 98.3 F 96 H 16 120/70 85 L 28 02/23/22 16:00 02/23/22 16:00 02/23/22 16:00 02/23/22 16:00 02/23/22 16:00 02/23/22 11:41 Laboratory Results - last 24 hr 02/23/22 06:15: WBC 8.8 D, RBC 3.07 L, Hgb 8.6 L, Hct 28.6 L, MCV 93.2, MCH 28.1, MCHC 30.2 L, RDW 17.5, Plt Count 264, MPV 8.4, Neut % (Auto) 81.0 H, Lymph % (Auto) 11.0, [place] % (Auto) 6.4, Eos % (Auto) 1.3, Baso % (Auto) 0.3, Neut # (Auto) 7.1, Lymph # (Auto) 1.0, [place] # (Auto) 0.6, Eos # (Auto) 0.1, Baso # (Auto) 0.0 02/23/22 06:15: Sodium 134 L, Potassium 5.1, Chloride 95 L, Carbon Dioxide 31 H, Anion Gap 13.1, BUN 25 H D, Creatinine 1.40 H D, Estimated Creat Clear 37, Estimated GFR 40 L, Est GFR ( Amer) 49 L D, Glucose 93, Calcium 7.7 L 02/23/22 09:55: Vancomycin Trough 24.4 H I & O for Labs for Last 24 Hours: Intake & Output 02/20/22 02/21/22 02/22/22 02/23/22 23:59 23:59 23:59 23:59 Intake Total 1750 / 2100 1310 / 1310 Output Total 0 / 0 0 / 0 Balance 1750 / 2100 1310 / 1310 Weight 401 lb 9 oz 401 lb 9.152 oz 401 lb 0.333 oz Findings:: Right lower extremity: There is significant diffuse cellulitic changes from the knee down to the ankle and the right lower extremity. Although this is diffuse and significant there is slight improvement on the swelling compared to yesterday and the anterior compartment is slightly more compressible. However there has not been a significant clinical improvement of the erythema. Assessment and Plan *Assessment and plan (1) Cellulitis of right lower extremity: Status: Acute Category: Medical Code(s): L03.115 - Cellulitis of right lower limb Plan I reviewed the CT scan. Anticipated presence of hematoma is there. I reviewed the overall picture of the cellulitic changes of the lower extremity. I believe she has best fit currently for continued antibiotics. No current plan for surgical intervention. I do not believe that draining the area of hematoma would create a significant clinical improvement and would likely result in open wound of the lower extremity unable to be closed secondary to the cellulitic changes. Will order CRP to compare from baseline continue to monitor for clinical improvement of the cellulitic changes. She asked me if she could go home with IV antibiotics and I informed her this is a decision that would have to be between her and Dr. Chris. Continue with conservative treatment with hopes of resolution of the cellulitic changes.
[2022-02-23 17:31] LABS: C-Reactive Protein 175.6 mg/L (0-4)
[2022-02-23 23:09] LABS: Vancomycin,Trough 16.6 ug/mL (5.0-10.0)
[2022-02-24] VITALS (10 sets, daily range): BP systolic 95–134; BP diastolic 47–81; PULSE 70–100; RESP 17–18; TEMP 36.4–36.9; O2SAT 90–96; BMI 75.6
--- NOTE | 2022-02-24 04:38 | PC.NURSE ---
Addendum entered by Kymberly Raines, RNA 02/24/22 04:42: Pt has complained of pain twice this shift, treated prn per aug. Original Note: Pt is alert and oriented x4. Pt IV in right forearm leaking, discontinued, inserted new IV by Emile MCNEIL in the left forearm. Pt lung sounds diminished. Bowel sounds active, abdomen soft and nontender. 4+ pitting edema on right lower extremity- redness, warmth, and swelling noted. Pt got up to BSC with [address], pt used trilogy throughout the night. Call light in reach and working.
[2022-02-24 08:44] LABS: Basophils % 0.5 % (0.1-2.0); Eosinophils # 0.1 K/mm3 (0.0-0.4); Eosinophils % 1.5 % (0.1-12.0); Hematocrit 28.2 % (37.0-47.0); Hemoglobin 8.3 g/dL (12.2-16.2); Lymphocytes # 0.9 K/mm3 (0.7-4.5); Lymphocytes % 10.6 % (10-50); Mean Corpuscular HGB Conc 29.5 g/dL (31.8-35.4); Mean Corpuscular Hemoglobin 27.4 pg (27.0-31.2); Mean Corpuscular Volume 92.9 fl (81-99); Mean Platelet Volume 8.8 fl (7.4-10.4); Monocytes # 0.5 K/mm3 (0.1-1.0); Monocytes % 5.7 % (1.7-9.3); Neutrophils # 6.9 K/mm3 (1.8-7.8); Neutrophils % 81.7 % (37.0-80.0); Platelet Count 273 K/mm3 (142-424); Red Blood Count 3.03 M/mm3 (4.20-5.40); Red Cell Distribution Width 17.5 % (11.5-17.5); White Blood Count 8.4 K/mm3 (4.8-10.8)
[2022-02-24 08:54] LABS: Chloride 100 mmol/L (98-107); Sodium 137 mmol/L (136-145)
[2022-02-24 08:55] LABS: Potassium 5.1 mmoL/L (3.5-5.1)
[2022-02-24 08:58] LABS: Anion Gap 12.1 mEq/L (5-15); Blood Urea Nitrogen 29 mg/dl (7-17); Calcium 7.8 mg/dl (8.4-10.2); Carbon Dioxide 30 mmol/L (22.0-30.0); Creatinine Clearance Estimated 37 mL/min (50-200); Estimated Glomerular Filt Rate 40 ml/min (>60); GFR (African American) 49 ML/MIN (>60); Glucose 135 mg/dl (74-100)
--- NOTE | 2022-02-24 10:01 | DIET.NUTRFU ---
Rounded with provider, reviewed weight gains. Provider to add diuretic tx. Patient plans to discharge today. Provider to follow-up as outpatient
--- NOTE | 2022-02-24 10:03 | EXP.ACUTE.PN ---
Subjective *Date: 02/24/22 *Time: 10:25 Interval history: 47-year-old female patient sitting up in bed, she has been using her trilogy machine. She does report some increased shortness of breath during the night and her lower extremity edema appears to be increased this morning and she does have crackles on her lung bases Medical Exam Vital signs and Labs for Last 24 Hours: Temp Pulse Resp BP Pulse Ox FiO2 98.4 F 97 H 18 105/60 L 90 L 28 02/24/22 08:00 02/24/22 08:00 02/24/22 08:00 02/24/22 08:00 02/24/22 08:00 02/23/22 11:41 Laboratory Results - last 24 hr 02/23/22 09:55: Vancomycin Trough 24.4 H 02/23/22 09:55: C-Reactive Protein 175.6 H 02/23/22 22:40: Vancomycin Trough 16.6 H 02/24/22 08:37: WBC 8.4, RBC 3.03 L, Hgb 8.3 L, Hct 28.2 L, MCV 92.9, MCH 27.4, MCHC 29.5 L, RDW 17.5, Plt Count 273, MPV 8.8, Neut % (Auto) 81.7 H, Lymph % (Auto) 10.6, [place] % (Auto) 5.7, Eos % (Auto) 1.5, Baso % (Auto) 0.5, Neut # (Auto) 6.9, Lymph # (Auto) 0.9, [place] # (Auto) 0.5, Eos # (Auto) 0.1, Baso # (Auto) 0.0 02/24/22 08:37: Sodium 137, Potassium 5.1, Chloride 100, Carbon Dioxide 30, Anion Gap 12.1, BUN 29 H, Creatinine 1.40 H, Estimated Creat Clear 37, Estimated GFR 40 L, Est GFR ( Amer) 49 L, Glucose 135 H, Calcium 7.8 L I & O for Labs for Last 24 Hours: Intake & Output 02/21/22 02/22/22 02/23/22 02/24/22 23:59 23:59 23:59 23:59 Intake Total 1749 350 / 350 Output Total 0 / 0 0 / 0 400 / 400 Balance 1749 2030 -50 / -50 Weight 401 lb 9 oz 401 lb 9.152 oz 401 lb 0.333 oz 401 lb Microbiology Reports for the Last 24 Hours: Microbiology 02/23/22 11:50 Sputum - Expectorated Sputum Gram Stain - Final 02/21/22 17:26 Blood Blood Culture - Preliminary NO GROWTH AFTER 48 HOURS 02/21/22 17:26 Blood Blood Culture - Preliminary NO GROWTH AFTER 48 HOURS Head: Present atraumatic Eyes: Present as per HPI ENT: Present normal exam Neck: Absent trachea midline Respiratory: Present wheezes and crackles; Absent accessory muscle use Cardiac: Present Reg Rate and Rhythm GI: Present soft and normal bowel sounds; Absent distention or tenderness Extremities: Present tenderness and edema; Absent calf tenderness Skin: Present intact, erythema and dry; Absent cyanosis Neuro: Present Weakness and oriented x 3; Absent Numbness Assessment and Plan *Assessment and plan (1) Uses bilevel positive airway pressure (BPAP) ventilation at home: Status: Chronic Category: Medical Code(s): Z99.89 - Dependence on other enabling machines and devices (2) History of sleep apnea: Status: Chronic Category: Medical Code(s): Z86.69 - Personal history of other diseases of the nervous system and sense organs (3) History of asthma: Status: Chronic Category: Medical Code(s): Z87.09 - Personal history of other diseases of the respiratory system (4) Cellulitis of right lower extremity: Status: Acute Category: Medical Code(s): L03.115 - Cellulitis of right lower limb (5) Obesity: Status: Acute Qualifiers: Obesity type: due to excess calories Obesity classification: adult class 3 (BMI >= 40) Serious obesity comorbidity presence: without serious comorbidity Body mass index: BMI 45.0-49.9 Qualified Code(s): E66.01 - Morbid (severe) obesity due to excess calories; Z68.42 - Body mass index [BMI] 45.0-49.9, adult Category: Medical Code(s): E66.9 - Obesity, unspecified (6) Diastolic dysfunction: Status: Chronic Category: Medical Code(s): I51.9 - Heart disease, unspecified (7) Elevated left ventricular end-diastolic pressure (LVEDP): Status: Acute Category: Medical Code(s): R94.30 - Abnormal result of cardiovascular function study, unspecified (8) Right lower lobe pneumonia: Status: Acute Category: Medi
--- NOTE | 2022-02-24 10:47 | EXP.PHA.CONS ---
Pharmacy Consult Date: 02/24/22 Time: 10:47 Referring provider: DR. MUSA Reason for Consult:: VANCOMYCIN TROUGH LEVEL Allergies Allergy/AdvReac Type Severity Reaction Status Date / Time No Known Allergies Allergy Verified 01/19/22 14:07 Home Medications Medication Instructions Recorded Confirmed Type lamotrigine 100 mg tablet 100 mg PO DAILY Bipolar #90 tabs 12/24/21 02/21/22 Rx levothyroxine 25 mcg tablet 25 mcg PO DAILY Thyriod #90 tabs 12/24/21 02/21/22 Rx lisinopril 10 mg tablet 10 mg PO DAILY High blood pressure 01/04/22 02/21/22 History omeprazole 40 mg capsule,delayed 40 mg PO DAILY acid reflux 01/04/22 02/21/22 History release vilazodone 40 mg tablet 40 mg PO DAILY Depression #90 tabs 02/03/22 02/21/22 Rx albuterol sulfate 0.63 mg/3 mL 0.63 mg inhalation Q6H Breathing 02/12/22 02/21/22 History solution for nebulization problems albuterol sulfate 90 mcg/actuation 1 puff inhalation Q6HP PRN 02/12/22 02/21/22 History aerosol inhaler (ProAir HFA) Shortness Of Breath budesonide 0.25 mg/2 mL suspension 0.25 mg inhalation BID soa 02/12/22 02/21/22 History for nebulization polyethylene glycol 3350 17 17 gm PO DAILY bowel regimen 02/12/22 02/21/22 History gram/dose oral powder (Miralax) sumatriptan succinate 100 mg tablet 100 mg PO NEEDED PRN Migraine 02/12/22 02/21/22 History Headache promethazine 25 mg tablet 25 mg PO TIDP PRN nausea and 02/13/22 02/21/22 History vomiting diazepam 10 mg tablet 10 mg PO BID Anxiety #60 tabs 02/14/22 02/21/22 Rx gabapentin 800 mg tablet 800 mg PO TID Neuropathy #90 tabs 02/14/22 02/21/22 Rx hydrocodone 5 mg-acetaminophen 325 1 tab PO BIDP PRN Moderate Pain 02/14/22 02/21/22 Rx mg tablet (Scale Score 5-6) #60 tabs cephalexin 500 mg capsule 500 mg PO Q12H 10 days #20 caps 02/21/22 Rx clindamycin HCl 300 mg capsule 300 mg PO Q8H Infection 02/21/22 02/22/22 History fluticasone fur. 100 mcg-umeclid 1 ea inhalation DAILY Breathing 02/21/22 02/21/22 History 62.5 mcg-vilant 25 mcg problems inhalat.powder (Trelegy Ellipta) hydrocodone 5 mg-acetaminophen 325 1 tab PO Q6H PRN pain #14 tabs 02/21/22 Rx mg tablet levofloxacin 750 mg tablet 750 mg PO DAILY Infection 02/21/22 02/21/22 History sulfamethoxazole 800 1 tab PO Q12H 10 days #20 tabs 02/21/22 Rx mg-trimethoprim 160 mg tablet (Bactrim DS) ziprasidone HCl 60 mg capsule 60 mg PO BID Depression 02/22/22 02/21/22 History New Prescriptions to Start Prescriptions: cephalexin Enyart,Manuel hydrocodone-acetaminophen Enyart,Manuel sulfamethoxazole-trimethoprim [Bactrim DS] Enyart,Manuel Height: 1.55 m Weight: 181.891 kg Laboratory Results:: Laboratory Results - last 24 hr 02/23/22 09:55: Vancomycin Trough 24.4 H 02/23/22 09:55: C-Reactive Protein 175.6 H 02/23/22 22:40: Vancomycin Trough 16.6 H 02/24/22 08:37: WBC 8.4, RBC 3.03 L, Hgb 8.3 L, Hct 28.2 L, MCV 92.9, MCH 27.4, MCHC 29.5 L, RDW 17.5, Plt Count 273, MPV 8.8, Neut % (Auto) 81.7 H, Lymph % (Auto) 10.6, [place] % (Auto) 5.7, Eos % (Auto) 1.5, Baso % (Auto) 0.5, Neut # (Auto) 6.9, Lymph # (Auto) 0.9, [place] # (Auto) 0.5, Eos # (Auto) 0.1, Baso # (Auto) 0.0 02/24/22 08:37: Sodium 137, Potassium 5.1, Chloride 100, Carbon Dioxide 30, Anion Gap 12.1, BUN 29 H, Creatinine 1.40 H, Estimated Creat Clear 37, Estimated GFR 40 L, Est GFR ( Amer) 49 L, Glucose 135 H, Calcium 7.8 L Medical History: Medical History (Updated 02/24/22 @ 09:36 by Zakia Angulo, RT) Abnormal stress test Acute and chronic respiratory failure Acute and chronic respiratory failure with hypercapnia Acute on chronic diastolic heart failure Acute on chronic diastolic heart failure Angina, class III Anxiety Asthma Asthma Chest pain Chronic respiratory failure with hypercapnia Congestive heart failure COPD (chronic obstructive pulmonary disease) COVID-19 Depression Diabetes mellitus, type
[2022-02-24 11:12] LABS: Microscopic, Urine URINE MICROSCOPIC (MICROSCOPIC)
[2022-02-24 11:16] LABS: Appearance,Urine CLEAR (Clear); Bilirubin,Urine Negative (Negative); Blood, Urine Negative (Negative); Color,Urine YELLOW (Yellow); Glucose,Urine (UA) Negative (Negative); Ketones,Urine Negative (Negative); Leukocyte Esterase,Urine Negative (Negative); Nitrate,Urine Negative (Negative); Protein,Urine Negative (Negative); Specific Gravity, Urine 1.015 (1.005-1.030); Urobilinogen,Urine 0.2 EU/dl (0.2)
[2022-02-24 11:36] LABS: Bacteria,Urine 2+ /lpf
[2022-02-24 11:37] LABS: Amorphous Sediment,Urine 1+ /lpf
--- NOTE | 2022-02-24 12:11 | P.PN_ITS ---
Subjective *Date: 02/24/22 *Time: 12:17 Interval history: Patient reports she feels about the same the pain in the right lower extremity is present. She is sitting on side of bed able to flex the knee with minimal pain but the pain in the front of the leg and down the leg is still significant the lower extremity swelling is still significant Ortho Exam (Inpt) Vital signs and Labs for Last 24 Hours: Temp Pulse Resp BP Pulse Ox FiO2 97.9 F 99 H 18 109/53 L 90 L 28 02/24/22 11:44 02/24/22 11:44 02/24/22 11:44 02/24/22 11:44 02/24/22 11:44 02/23/22 11:41 Laboratory Results - last 24 hr 02/23/22 09:55: C-Reactive Protein 175.6 H 02/23/22 22:40: Vancomycin Trough 16.6 H 02/24/22 08:37: WBC 8.4, RBC 3.03 L, Hgb 8.3 L, Hct 28.2 L, MCV 92.9, MCH 27.4, MCHC 29.5 L, RDW 17.5, Plt Count 273, MPV 8.8, Neut % (Auto) 81.7 H, Lymph % (Auto) 10.6, [place] % (Auto) 5.7, Eos % (Auto) 1.5, Baso % (Auto) 0.5, Neut # (Auto) 6.9, Lymph # (Auto) 0.9, [place] # (Auto) 0.5, Eos # (Auto) 0.1, Baso # (Auto) 0.0 02/24/22 08:37: Sodium 137, Potassium 5.1, Chloride 100, Carbon Dioxide 30, Anion Gap 12.1, BUN 29 H, Creatinine 1.40 H, Estimated Creat Clear 37, Estimated GFR 40 L, Est GFR ( Amer) 49 L, Glucose 135 H, Calcium 7.8 L 02/24/22 10:20: Urine Color Yellow, Urine Appearance Clear, Urine pH 6.0, Ur Specific [place] 1.015, Urine Protein Negative, Urine Glucose (UA) Negative, Urine Ketones Negative, Urine Blood Negative, Urine Nitrate Negative, Urine Bilirubin Negative, Urine Urobilinogen 0.2, Ur Leukocyte Esterase Negative, Urine WBC 3-5, Ur Squamous Epith Cells 3-5, Amorphous Sediment 1+, Urine Bacteria 2+ I & O for Labs for Last 24 Hours: Intake & Output 02/21/22 02/22/22 02/23/22 02/24/22 23:59 23:59 23:59 23:59 Intake Total 1749 830 / 830 Output Total 0 / 0 0 / 0 400 / 400 Balance 1749 430 / 430 Weight 401 lb 9 oz 401 lb 9.152 oz 401 lb 0.333 oz 401 lb Microbiology Reports for the Last 24 Hours: Microbiology 02/23/22 11:50 Sputum - Expectorated Sputum Gram Stain - Final 02/21/22 17:26 Blood Blood Culture - Preliminary NO GROWTH AFTER 48 HOURS 02/21/22 17:26 Blood Blood Culture - Preliminary NO GROWTH AFTER 48 HOURS Findings:: Right lower extremity: Diffuse cellulitic changes anterior lower leg. Minimal pain with passive stretch of the ankle and the toe. Diffuse erythema. Assessment and Plan *Assessment and plan (1) Cellulitis of right lower extremity: Status: Acute Category: Medical Code(s): L03.115 - Cellulitis of right lower limb Plan Patient receiving diuresis today. The lower extremity swelling is still significant. I reviewed with her again the findings of hematoma on the CT scan. Most the pain is related to the anterior leg and away from the knee. I explained to her that effusion in the knee could be secondary to the arthritis however the concern for septic arthritis in the knee has to be monitored. As before with the hematoma would not plan on surgical intervention to drain hematoma. Continue to monitor any symptoms around localized to the knee area. Repeat CRP tomorrow to evaluate effectiveness of antibiotic treatment.
--- NOTE | 2022-02-24 14:15 | PC.NURSE ---
Pt requested to be suctioned by RT. Suctioned Pt via trach for a small amount of white sputum. Pt has a strong productive cough. Pt tolerated well.
--- NOTE | 2022-02-24 15:31 | PC.NURSE ---
late entry: assisted with castro placement. education given to patient. patient tolerated well. no questions or concerns. patient in good spirits at that time. encouraged her to ring out as needed.
[2022-02-25] VITALS: BP 97/53; PULSE 101; RESP 16; TEMP 36.6; O2SAT 98
[2022-02-25 03:51] VITALS: BP 92/73; PULSE 94; RESP 22; TEMP 36.7; O2SAT 91
[2022-02-25 05:22] VITALS: PULSE 93; PULSE 94; O2SAT 99
--- NOTE | 2022-02-25 05:57 | PC.NURSE ---
pt restless through the night, pt medicated for pain x2, VSS, RLE swollen 3-4+; red and warm to touch, pt is alert and oriented x4, f/c to bsd with clear yellow urine noted, bilateral lung sounds with expiraotory wheezing and rhonchi noted, 02 sats 91 on r/a.
[2022-02-25 08:00] VITALS: BP 118/72; PULSE 95; RESP 16; TEMP 36.4; O2SAT 91
[2022-02-25 08:22] LABS: Basophils # 0.1 K/mm3 (0-0.2); Basophils % 0.5 % (0.1-2.0); Eosinophils # 0.2 K/mm3 (0.0-0.4); Hematocrit 28.1 % (37.0-47.0); Hemoglobin 8.5 g/dL (12.2-16.2); Lymphocytes # 0.9 K/mm3 (0.7-4.5); Lymphocytes % 10.6 % (10-50); Mean Corpuscular HGB Conc 30.3 g/dL (31.8-35.4); Mean Corpuscular Hemoglobin 27.8 pg (27.0-31.2); Mean Platelet Volume 8.1 fl (7.4-10.4); Monocytes # 0.4 K/mm3 (0.1-1.0); Monocytes % 4.9 % (1.7-9.3); Neutrophils # 7.1 K/mm3 (1.8-7.8); Neutrophils % 81.9 % (37.0-80.0); Platelet Count 277 K/mm3 (142-424); Red Blood Count 3.05 M/mm3 (4.20-5.40); Red Cell Distribution Width 17.4 % (11.5-17.5); White Blood Count 8.7 K/mm3 (4.8-10.8)
[2022-02-25 08:44] LABS: Anion Gap 14.8 mEq/L (5-15); Blood Urea Nitrogen 34 mg/dl (7-17); Calcium 7.8 mg/dl (8.4-10.2); Carbon Dioxide 25 mmol/L (22.0-30.0); Chloride 101 mmol/L (98-107); Creatinine Clearance Estimated 37 mL/min (50-200); Estimated Glomerular Filt Rate 40 ml/min (>60); GFR (African American) 49 ML/MIN (>60); Glucose 125 mg/dl (74-100); Potassium 5.8 mmoL/L (3.5-5.1); Sodium 135 mmol/L (136-145)
[2022-02-25 08:49] LABS: C-Reactive Protein 168.2 mg/L (0-4)
--- NOTE | 2022-02-25 10:49 | EXP.ORTH.PN ---
Subjective *Date: 02/25/22 *Time: 10:49 Interval history: Patient feels about the same. She is sitting on the side the bed. Feels like there is a little less stiffness in her knee today. Overall feels like the redness has improved slightly Ortho Exam (Inpt) Vital signs and Labs for Last 24 Hours: Temp Pulse Resp BP Pulse Ox FiO2 97.5 F L 95 H 16 118/72 91 L 28 02/25/22 08:00 02/25/22 08:00 02/25/22 08:00 02/25/22 08:00 02/25/22 08:00 02/25/22 05:22 Laboratory Results - last 24 hr 02/24/22 10:20: Urine Color Yellow, Urine Appearance Clear, Urine pH 6.0, Ur Specific [place] 1.015, Urine Protein Negative, Urine Glucose (UA) Negative, Urine Ketones Negative, Urine Blood Negative, Urine Nitrate Negative, Urine Bilirubin Negative, Urine Urobilinogen 0.2, Ur Leukocyte Esterase Negative, Urine WBC 3-5, Ur Squamous Epith Cells 3-5, Amorphous Sediment 1+, Urine Bacteria 2+ 02/25/22 08:13: WBC 8.7, RBC 3.05 L, Hgb 8.5 L, Hct 28.1 L, MCV 92.0, MCH 27.8, MCHC 30.3 L, RDW 17.4, Plt Count 277, MPV 8.1, Neut % (Auto) 81.9 H, Lymph % (Auto) 10.6, [place] % (Auto) 4.9, Eos % (Auto) 2.0, Baso % (Auto) 0.5, Neut # (Auto) 7.1, Lymph # (Auto) 0.9, [place] # (Auto) 0.4, Eos # (Auto) 0.2, Baso # (Auto) 0.1 02/25/22 08:13: Sodium 135 L, Potassium 5.8 H, Chloride 101, Carbon Dioxide 25, Anion Gap 14.8, BUN 34 H, Creatinine 1.40 H, Estimated Creat Clear 37, Estimated GFR 40 L, Est GFR ( Amer) 49 L, Glucose 125 H, Calcium 7.8 L 02/25/22 08:13: C-Reactive Protein 168.2 H I & O for Labs for Last 24 Hours: Intake & Output 02/22/22 02/23/22 02/24/22 02/25/22 23:59 23:59 23:59 23:59 Intake Total 1749 1670 / 1670 590 / 590 Output Total 0 / 0 0 / 0 1650 / 2850 1600 / 1600 Balance 1749 20 / -1180 -1010 / -1010 Weight 401 lb 9.152 oz 401 lb 0.333 oz 401 lb Microbiology Reports for the Last 24 Hours: Microbiology 02/23/22 11:50 Sputum - Expectorated Sputum Gram Stain - Final 02/23/22 11:50 Sputum - Expectorated Sputum Sputum Culture - Final Normal Respiratory Vandana Findings:: Right lower extremity: Redness cellulitis anterior lower leg the compartment is slightly more compressible than yesterday with some diminished amount of swelling. Mild improving of the bruising around the ankle. Overall slight clinical improvement compared to yesterday Comment:: Right knee: No pain with active flexion flexion to 90 degrees. No pain with passive extension, active extension intact. Assessment and Plan *Assessment and plan (1) Cellulitis of right lower extremity: Status: Acute Category: Medical Code(s): L03.115 - Cellulitis of right lower limb Plan Reviewed course to date with the patient. There appears to be slight clinical improvement in the right lower extremity today especially compared to 2 days ago. My preference is to avoid surgical intervention to lower the risk of nonhealing wound and open wound that would require wound VAC if possible. With slight clinical improvement continued conservative treatment with antibiotics is indicated. Discussed this in detail with the patient she understands. There is a long road to recovery given the extent of the lower extremity cellulitis. No surgical intervention planned.
--- NOTE | 2022-02-25 11:30 | DIET.NUTRFU ---
Patient continues on bumex, she reporting feeling better today. Reviewing I/O, urine output was 1650ml and already noted 1650ml today also. Will continue to monitor I/O's, no new labs or weights today so far. Continues to eat good on cardiac diet.
[2022-02-25 12:00] VITALS: BP 100/65; PULSE 71; RESP 18; TEMP 36.4; O2SAT 93
--- NOTE | 2022-02-25 12:50 | PC.NURSE ---
Left message for Alicja Vegas about pts, K, BUN, and Creatinine.
[2022-02-25 13:08] VITALS: PULSE 87; PULSE 88
--- NOTE | 2022-02-25 13:25 | EXP.DC.SUM ---
General Admission date:: 02/21/22 Discharge date: 02/25/22 HPI HPI HPI: 47 YOF presented to [facility] ED w/ c/o worsening pain, redness, swelling, bruising of RLE since a fall on 02/13. She was recently discharged for CAP and RLE Cellulitis, she reports taking Clinda and Levoflox per inst. she received cefepime and vancomycin IV in the emergency department Hospital Course Hospital Course Hospital Course: 47 YOF presented to [facility] w/ c/o worsening pain, redness, swelling, bruising of RLE since a fall on 02/13. She was recently discharged for CAP and RLE Cellulitis, she reports taking Clinda and Levoflox per inst. she received cefepime and vancomycin IV in the emergency department Ortho has seen: Findings:: Right lower extremity: Redness cellulitis anterior lower leg the compartment is slightly more compressible than yesterday with some diminished amount of swelling.? Mild improving of the bruising around the ankle.? Overall slight clinical improvement compared to yesterday Comment:: Right knee: No pain with active flexion flexion to 90 degrees.? No pain with passive extension, active extension intact. And recommends: Reviewed course to date with the patient.? There appears to be slight clinical improvement in the right lower extremity today especially compared to 2 days ago.? My preference is to avoid surgical intervention to lower the risk of nonhealing wound and open wound that would require wound VAC if possible.? With slight clinical improvement continued conservative treatment with antibiotics is indicated.? Discussed this in detail with the patient she understands.? There is a long road to recovery given the extent of the lower extremity cellulitis.? No surgical intervention planned. 47-year-old female patient admitted to [facility] for worsening cellulitis of right lower extremity. She was recently discharged on clindamycin and levofloxacin for pneumonia and right lower extremity cellulitis. Pneumonia has significantly improved and her cellulitis has worsened. Ortho was consulted, agreed with current antibiotic regimen, and as right lower extremity cellulitis has improved will be discharged on oral antibiotics. While inpatient she did receive cefepime and vancomycin IV, she will be discharged on Keflex and Bactrim orally. During her stay she did display some fluid retention with increased edema in bilateral lower extremities and bibasilar crackles in lung lira, she did receive several doses of Bumex orally with good diuresis. Patient has been kept to a tolerable level, she will be discharged on oral pain meds. We will discussed discharge to home she is in agreement with this and has multiple family members to help with her care. Exam Data for Last 24 hours Vital signs and Labs for Last 24 Hours: Temp Pulse Resp BP Pulse Ox FiO2 97.5 F L 87 16 118/72 91 L 28 02/25/22 08:00 02/25/22 13:08 02/25/22 08:00 02/25/22 08:00 02/25/22 08:00 02/25/22 05:22 Laboratory Results - last 24 hr 02/25/22 08:13: WBC 8.7, RBC 3.05 L, Hgb 8.5 L, Hct 28.1 L, MCV 92.0, MCH 27.8, MCHC 30.3 L, RDW 17.4, Plt Count 277, MPV 8.1, Neut % (Auto) 81.9 H, Lymph % (Auto) 10.6, [place] % (Auto) 4.9, Eos % (Auto) 2.0, Baso % (Auto) 0.5, Neut # (Auto) 7.1, Lymph # (Auto) 0.9, [place] # (Auto) 0.4, Eos # (Auto) 0.2, Baso # (Auto) 0.1 02/25/22 08:13: Sodium 135 L, Potassium 5.8 H, Chloride 101, Carbon Dioxide 25, Anion Gap 14.8, BUN 34 H, Creatinine 1.40 H, Estimated Creat Clear 37, Estimated GFR 40 L, Est GFR ( Amer) 49 L, Glucose 125 H, Calcium 7.8 L 02/25/22 08:13: C-Reactive Protein 168.2 H I & O for Last 24 hours: Intake & Output 02/22/22 02/23/22 02/24/22 02/25/22 23:59 23:59 23:59 23:59 Intake Total 1749 / 2099 1670 / 1670 590 / 590 Output Total 0 / 0 0 / 0 1650 / 2850 1800 / 1800 Balance 1749 20 / -1180 -1210 / -1210 Weight 401 lb 9.152 oz 401 lb 0.333 oz 401 lb Microbiology Repo
--- NOTE | 2022-02-25 14:05 | PC.NURSE ---
Pt's family is here to take her home for D/C. We are waiting on sienna to bring BSC
--- NOTE | 2022-02-25 14:06 | PC.NURSE ---
Spoke with Memo and he stated that it was fine to get BSC for home, and it was fine for me to give 1300 dose of bumetanide with lab levels.
--- NOTE | 2022-02-25 14:07 | CARE MANAGER ---
Patient needs bedside commode due to patient size and need for continued diuresis at home.
--- NOTE | 2022-02-25 14:12 | PC.NURSE ---
Left message with ki about what if we are going to continue a diuretic for pt.
--- NOTE | 2022-02-25 15:11 | PC.NURSE ---
one unmeasured void
[2022-02-25 15:17] LABS: Anion Gap 13.7 mEq/L (5-15); Blood Urea Nitrogen 34 mg/dl (7-17); Calcium 8.2 mg/dl (8.4-10.2); Carbon Dioxide 29 mmol/L (22.0-30.0); Chloride 100 mmol/L (98-107); Creatinine Clearance Estimated 35 mL/min (50-200); Estimated Glomerular Filt Rate 37 ml/min (>60); GFR (African American) 45 ML/MIN (>60); Glucose 103 mg/dl (74-100); Potassium 5.7 mmoL/L (3.5-5.1); Sodium 137 mmol/L (136-145)
--- NOTE | 2022-02-25 15:33 | P.CONPHA_ITS ---
Pharmacy Intervention Comments: DISCHARGE MEDICATION COUNSELING PROVIDED. DISCUSSED STOPPING THE LEVAQUIN AND CLINDAMYCIN. DISCUSSED THE CHANGE ON THE PAIN MEDICATION FROM TWICE A DAY NEEDED TO EVERY 8 HOURS NEEDED. BUMETANIDE IS FOR FLUID, TAKE ONCE DAILY IN THE MORNING, WILL INCREASE URINE OUTPUT, CAN CAUSE DIZZINESS, LIGHTHEADEDNESS, LOW BP, MAY LOWER POTASSIUM LEVELS. KEFLEX IS ONE OF THE ANTIBIOTICS AND IS TAKEN THREE TIMES DAILY, RECOMMENDED WITH FOOD DUE TO GI UPSET, DIARRHEA POSSIBLE. THE BACTRIM DS IS THE OTHER ANTIBIOTIC AND SHOULD BE TAKEN EVERY 12 HOURS, CAN BE TAKEN WITH OR WITHOUT FOOD BUT MAY HELP WITH GI UPSET, TAKE WITH A FULL GLASS OF WATER, CAN CAUSE SUN SENSITIVITY, RASH, GI UPSET. PATIENT VERBAL IZED NO QUESTIONS AT THIS TIME.
--- NOTE | 2022-02-28 13:55 | CARE MANAGER ---
Contacted patient regarding hospital discharge. She states that she is having more trouble breathing and pulse ox went down to 76%, however she does not want me to reach out to the doctors office. She states she will if she feels worse. She picked up her medications and denies any questions or concerns. EWA Spencer
== END 2022-02-25 15:41 | disposition home or self-care (01) ==
LOC: ER 16:18 → 2ND 17:10
PROVIDERS: Family Medicine; Nurse Practitioner Family; Orthopaedic Surgery; Admitting Provider Emergency Medicine; Emergency Provider Emergency Medicine; PCP Emergency Medicine; Visit Provider Emergency Medicine
DX: L03.115 Cellulitis of right lower limb (principal); Z68.42 Body mass index [BMI] 45.0-49.9, adult; E66.2 Morbid (severe) obesity with alveolar hypoventilation; Z87.891 Personal history of nicotine dependence; Z93.0 Tracheostomy status; Z99.89 Dependence on other enabling machines and devices; J18.9 Pneumonia, unspecified organism; E03.9 Hypothyroidism, unspecified
CPT/HCPCS: 36415; 73562; 73590; 73701; 76882; 80048; 80053; 80202; 81001; 82803; 83605; 84145; 85025; 85610; 85651; 86140; 87040; 87070; 87086; 87205; 93971; 94640; 94760; 94761; 99285; C9803; G0378; J2405; J3370; Q9967; U0003; U0005

== ENCOUNTER → 2022-03-14 09:56 | Outpatient (CLI) | payer MEDICAID, SELFPAY ==
--- NOTE | 2022-03-14 10:27 | XR_ITS ---
FINAL REPORT CLINICAL HISTORY: dyspnea/cp COMPARISON: 02/17/2022 FINDINGS: Two views of the chest were obtained. There is cardiomegaly. There is mild bilateral atelectasis or scarring. No acute pulmonary abnormality is identified. There is no pneumothorax. Mild and moderate degenerative changes are seen in the thoracic spine. IMPRESSION: No active cardiopulmonary disease. Reviewed, Interpreted and Dictated by Pranay Miller III, MD Transcribed by Louann Lazaro Authenticated and [facility]
[2022-03-14 11:31] LABS: Basophils # 0.1 K/mm3 (0-0.2); Basophils % 0.7 % (0.1-2.0); Eosinophils # 0.1 K/mm3 (0.0-0.4); Eosinophils % 1.5 % (0.1-12.0); Hematocrit 34.6 % (37.0-47.0); Hemoglobin 10.5 g/dL (12.2-16.2); Lymphocytes # 0.9 K/mm3 (0.7-4.5); Lymphocytes % 11.6 % (10-50); Mean Corpuscular HGB Conc 30.3 g/dL (31.8-35.4); Mean Corpuscular Hemoglobin 27.1 pg (27.0-31.2); Mean Corpuscular Volume 89.5 fl (81-99); Mean Platelet Volume 7.9 fl (7.4-10.4); Monocytes # 0.4 K/mm3 (0.1-1.0); Monocytes % 5.5 % (1.7-9.3); Neutrophils # 6.2 K/mm3 (1.8-7.8); Neutrophils % 80.7 % (37.0-80.0); Platelet Count 300 K/mm3 (142-424); Red Blood Count 3.86 M/mm3 (4.20-5.40); Red Cell Distribution Width 17.1 % (11.5-17.5); White Blood Count 7.7 K/mm3 (4.8-10.8)
[2022-03-14 12:12] LABS: Alanine Aminotransferase 11 U/L (12-78); Alkaline Phosphatase 88 U/L (38-126); Anion Gap 14.4 mEq/L (5-15); Aspartate Amino Transferase 19 U/L (14-36); Bilirubin,Direct 0.1 mg/dl (0.0-0.4); Blood Urea Nitrogen 14 mg/dl (7-17); Calcium 8.6 mg/dl (8.4-10.2); Carbon Dioxide 30 mmol/L (22.0-30.0); Chloride 101 mmol/L (98-107); Chol/HDL Ratio 3.1 (1-3.5); Cholesterol 160 mg/dl (140-200); Estimated Glomerular Filt Rate 53 ml/min (>60); GFR (African American) 64 ML/MIN (>60); Glucose 96 mg/dl (74-100); HDL Cholesterol 52 mg/dl (40-60); Magnesium 1.7 mg/dl (1.6-2.3); Potassium 5.4 mmoL/L (3.5-5.1); Sodium 140 mmol/L (136-145); Total Protein,Serum 7.2 g/dl (6.3-8.2); Triglycerides 122 mg/dl (30-150); VLDL Cholesterol 24 mg/dL (0-40)
[2022-03-14 12:22] LABS: NT Pro Brain Natriuretic Pep. 87.6 pg/mL (0-125)
[2022-03-14 12:25] LABS: Bilirubin,Total 0.1 mg/dl (0.2-1.3)
[2022-03-14 12:27] LABS: Free T4 (Free Thyroxine) 1.08 ng/dl (0.78-2.19)
[2022-03-14 12:44] LABS: Thyroid Stimulating Hormone 2.59 uIU/mL (0.465-4.68)
== END ==
PROVIDERS: PCP Emergency Medicine; Visit Provider Physician Assistant
DX: I50.30 Unspecified diastolic (congestive) heart failure (principal); R60.9 Edema, unspecified; R94.30 Abnormal result of cardiovascular function study, unspecified; E66.01 Morbid (severe) obesity due to excess calories; Z68.42 Body mass index [BMI] 45.0-49.9, adult; Z93.0 Tracheostomy status; Z86.39 Personal history of other endocrine, nutritional and metabolic disease
CPT/HCPCS: 36415; 71046; 80048; 80061; 80076; 83735; 83880; 84439; 84443; 85025

== ENCOUNTER → 2022-03-31 13:36 | Outpatient (CLI) | payer MEDICAID, SELFPAY ==
--- NOTE | 2022-03-31 13:37 | CA_ITS ---
APPROVED REPORT EXAM: Comprehensive 2D, Doppler, and color-flow Echocardiogram [employer] Supervisor: Deepa Schumacher CRT Ht: 5 ft 1 in Wt: 373lbs BSA: 2.46 BP: 124/72 mmHg Indications: Chest Pain, Congestive Heart Failure, Shortness of Breath, Diabetes, Obesity, Peripheral Edema, Hyperlipidemia, Hypertension/HDD, hx covid, trach, dhiraj 2D Dimensions LVOT 2.00 cm (M/F) 1.5-2.5 LA Volume 31.70 mL LA Volume Index 12.60 mL/m2 (M/F) 16-34 M-Mode Dimensions RVDd 3.46 cm (0.9-2.6) LA Diam 3.56 cm (1.9-4.0) LVDd 3.66 cm (3.5-5.7) Ao Diam 4.77 cm (2.0-3.7) LVDs 2.74 cm (3.5-5.7) IVSd 1.97 cm (0.6-1.1) PWd 1.13 cm (0.6-1.1) EF (Teich) 50.50% FS 25.10% EDV (Teich) 56.60 mL TAPSE 2.69 (<1.7) ESV (Teich) 28.00 mL LV Diastology E Decel Time 213.00 (160-240 msec) E/A Ratio 0.61 MED E' 7.40 (< 7 cm/sec) MED A' 12.50 cm/s E'/MED E' Ratio 7.70 (>14) LAT E' 12.40 (<10 cm/sec) LAT A' 14.40 cm/s E/LAT E' Ratio 4.60 (>14) Aortic Valve LVOT Max 153.00 (70-110 cm/s) LVOT VTI 20.93 cm AoV Peak Tonny. 198.00 (50-130 cm/s) AO Peak GR. 15.80 mmHg AO Mean GR. 8.20 (<5 mmHg) AO VTI 30.00 (18-25 cm) SHAYE (VTI) 2.19 (2.5-4.5 cm2) Mitral Valve MV E Max Tonny. 57.00 (40-130 cm/s) MV A Velocity 93.00 (40-130 cm/s) E/A Ratio 0.61 MV Decel. Time 213.00 (160-240 ms) MV PHT 62.00 ms Pulmonary Valve PV Peak Velocity 192.00 (50-150 cm/s) Tricuspid Valve TR P. Velocity 227.00 cm/s RAP Estimate 10.00 mmHg RVSP 30.50 mmHg Left Ventricle Technically difficult study because of the patient factors and poor acoustic windows. Left atrium is mildly enlarged, left ventricle is normal size, mild concentric left ventricular hypertrophy, estimated ejection fraction over 65%, left ventricle is hyperdynamic. Doppler evidence of increased cardiac output state seen. Right Ventricle Right atrium and right ventricle are normal size and contractility. Aortic Valve Aortic valve is thickened and calcified leaflets continue to display good mobility. Mitral Valve Mitral valve is grossly normal, there is trace mitral regurgitation. Tricuspid Valve Tricuspid valve grossly normal, there is trace tricuspid regurgitation, tricuspid regurgitation jet velocity is inadequate for calculation of the right ventricular systolic pressure. Pulmonic Valve Pulmonic valve is poorly visualized. Great Vessels Aortic root is normal size. Inferior vena cava is normal size with normal inspiratory collapse. Pericardium No significant pericardial effusion noted. Conclusion 1. Technically difficult study because of the patient factors and poor acoustic windows. 2. Normal left ventricular size hyperdynamic left ventricular systolic function, estimated ejection fraction was 65% with no regional wall motion abnormality, Doppler evidence of increased cardiac output state seen, grade 1 diastolic dysfunction seen without tissue Doppler evidence of raise left atrial pressure. 3. Trace mitral and tricuspid regurgitation. 4. No significant pericardial effusion noted. 5. Inferior vena cava is normal size with normal inspiratory collapse. Electronically signed by : Mahendra Jim MD 04/01/2022 14:09:23
== END ==
PROVIDERS: PCP Emergency Medicine; Visit Provider Physician Assistant
DX: I51.9 Heart disease, unspecified (principal); R60.9 Edema, unspecified; E66.01 Morbid (severe) obesity due to excess calories; R94.30 Abnormal result of cardiovascular function study, unspecified; Z68.42 Body mass index [BMI] 45.0-49.9, adult; Z93.0 Tracheostomy status
CPT/HCPCS: 93306

== ENCOUNTER 2022-06-07 15:56 | Emergency (ER) | payer MEDICAID, SELFPAY ==
[2022-06-07] VITALS (9 sets, daily range): BP systolic 101–137; BP diastolic 63–100; PULSE 95–109; RESP 20–24; TEMP 37; O2SAT 95–99; BMI 69.9
--- NOTE | 2022-06-07 16:05 | ECG_ITS ---
APPROVED REPORT Exam: Resting ECG HR:111 bpm ECG Measurements Heart Rate 111 AXES IA 145 P 63 QRSd 80 QRS 49 QT 319 T 47 QTc 385 Conclusion SINUS TACHYCARDIA LOW QRS VOLTAGE IN PRECORDIAL LEADS [QRS DEFLECTION < 1.0 mV IN CHEST LEADS] ABNORMAL RHYTHM ECG UNCONFIRMED REPORT Electronically signed by : Mario Salcido MD 06/09/2022 08:14:01
--- NOTE | 2022-06-07 16:10 | XR_ITS ---
FINAL REPORT CLINICAL HISTORY: CHEST PAIN, SHORTNESS OF BREATH COMPARISON: March 14, 2022 FINDINGS: PORTABLE CHEST The heart is normal in size. The mediastinum is unremarkable. The lungs are clear. There is no pneumothorax. IMPRESSION: No active disease, stable. Reviewed, Interpreted and Dictated by Pat Hyatt MD Transcribed by Ashley Arcos Authenticated and [facility]
--- NOTE | 2022-06-07 16:20 | PC.NURSE ---
XR AT BEDSIDE
[2022-06-07 16:47] LABS: Blood Urea Nitrogen 11 mg/dl (7-17); Calcium 8.5 mg/dl (8.4-10.2); Carbon Dioxide 31 mmol/L (22.0-30.0); Chloride 101 mmol/L (98-107); Creatinine Clearance Estimated 65 mL/min (50-200); Estimated Glomerular Filt Rate 77 ml/min (>60); GFR (African American) 93 ML/MIN (>60); Glucose 130 mg/dl (74-100); Sodium 139 mmol/L (136-145)
[2022-06-07 16:53] LABS: Basophils % 0.4 % (0.1-2.0); Eosinophils # 0.1 K/mm3 (0.0-0.4); Eosinophils % 0.7 % (0.1-12.0); Hematocrit 37.6 % (37.0-47.0); Hemoglobin 11.8 g/dL (12.2-16.2); Lymphocytes # 1.3 K/mm3 (0.7-4.5); Mean Corpuscular HGB Conc 31.4 g/dL (31.8-35.4); Mean Corpuscular Hemoglobin 26.2 pg (27.0-31.2); Mean Corpuscular Volume 83.5 fl (81-99); Monocytes # 0.3 K/mm3 (0.1-1.0); Monocytes % 2.9 % (1.7-9.3); Neutrophils # 6.9 K/mm3 (1.8-7.8); Neutrophils % 80.9 % (37.0-80.0); Platelet Count 283 K/mm3 (142-424); Red Blood Count 4.51 M/mm3 (4.20-5.40); Red Cell Distribution Width 17.3 % (11.5-17.5); White Blood Count 8.5 K/mm3 (4.8-10.8)
--- NOTE | 2022-06-07 17:00 | PC.NURSE ---
1700 PT ASSISTED TO BED
[2022-06-07 17:01] LABS: Troponin I < 0.01 ng/ml (0.00-0.034)
[2022-06-07 17:11] LABS: Coronavirus 19, PCR Not Detected (NotDetected); Influenza A, PCR Not Detected (NotDetected); Influenza B, PCR Not Detected (NotDetected)
--- NOTE | 2022-06-07 17:45 | PC.NURSE ---
1745 ROUNDED ON PT, BLANKET PROVIDED
--- NOTE | 2022-06-07 18:25 | PC.NURSE ---
1825 ROUNDED ON PT, AWAITING MD. CALL LIGHT WITHIN REACH
--- NOTE | 2022-06-07 19:12 | PC.NURSE ---
pt requesting to leave without being seen by ER MD at this time. Pt upset that she has not been seen by ER MD and states she is wanting to go home and lay down. Advised pt that we should be begin feeling worse or wants to be seen she can check back in at any time. Pt verbalized understanding. Encouraged pt to return to ER should she begin to feel worse or feel like she is not improving.
== END 2022-06-07 19:12 | disposition left against medical advice (07) ==
PROVIDERS: Emergency Provider Emergency Medicine; PCP Emergency Medicine
DX: R07.9 Chest pain, unspecified (principal); Z53.21 Procedure and treatment not carried out due to patient leaving prior to being seen by health care provider
CPT/HCPCS: 71045; 80048; 84484; 85025; 87040; 93005; 99211; C9803; U0003; U0005

== ENCOUNTER → 2022-07-12 10:36 | Outpatient (CLI) | payer MEDICAID, SELFPAY ==
[2022-07-12 11:31] LABS: Chloride 108 mmol/L (98-107); Potassium 4.3 mmoL/L (3.5-5.1); Sodium 141 mmol/L (136-145)
[2022-07-12 11:34] LABS: Blood Urea Nitrogen 9 mg/dl (7-17); Estimated Glomerular Filt Rate 77 ml/min (>60); GFR (African American) 93 ML/MIN (>60)
[2022-07-12 11:35] LABS: Anion Gap 10.3 mEq/L (5-15); Calcium 8.1 mg/dl (8.4-10.2); Carbon Dioxide 27 mmol/L (22.0-30.0); Glucose 121 mg/dl (74-100)
[2022-07-12 11:44] LABS: NT Pro Brain Natriuretic Pep. 170 pg/mL (0-125)
== END ==
PROVIDERS: PCP Emergency Medicine; Visit Provider Physician Assistant
DX: I50.30 Unspecified diastolic (congestive) heart failure (principal); R60.9 Edema, unspecified; R94.30 Abnormal result of cardiovascular function study, unspecified; E66.01 Morbid (severe) obesity due to excess calories; Z68.42 Body mass index [BMI] 45.0-49.9, adult; Z86.39 Personal history of other endocrine, nutritional and metabolic disease; Z93.0 Tracheostomy status
CPT/HCPCS: 36415; 80048; 83880

== ENCOUNTER 2022-08-18 12:04 | Emergency (ER) | payer MEDICAID, SELFPAY ==
[2022-08-18 12:10] VITALS: BP 140/88; PULSE 108; RESP 18; TEMP 37.3; O2SAT 97; BMI 71.8
[2022-08-18 12:45] VITALS: BP 136/96; PULSE 103; RESP 20; TEMP 37.3; O2SAT 97; BMI 71.8
--- NOTE | 2022-08-18 12:56 | EXP.UTC ---
Discharge Plan Disposition Patient Disposition: Home, Self-Care Condition: Good Prescriptions Prescriptions: New cephalexin 500 mg capsule 500 mg PO QID Qty: 40 0RF No Action vilazodone 40 mg tablet 40 mg PO DAILY Qty: 90 0RF Rx Instructions: must administer with a meal/food omeprazole 40 mg capsule,delayed release(DR/EC) 40 mg PO DAILY Qty: 90 0RF minocycline 100 mg tablet 100 mg PO BID Qty: 20 0RF torsemide 100 mg tablet 50 mg PO DAILY Qty: 30 2RF mupirocin 2 % ointment 1 applic topical BID Qty: 22 0RF diazepam 10 mg tablet 10 mg PO BID Qty: 60 1RF gabapentin 800 mg tablet 800 mg PO TID Qty: 90 1RF hydrocodone-acetaminophen 7.5-325 mg tablet 1 tab PO TID Qty: 90 0RF formoterol fumarate 20 mcg/2 mL solution for nebulization 20 mcg inhalation BID Qty: 120 3RF (DME) lancets [OneTouch Delica Plus Lancet] 33 gauge misc See Rx Instructions .Route Qty: 100 12RF Rx Instructions: As directed (DME) OneTouch Verio test strips Strip See Rx Instructions .Route Qty: 100 12RF Rx Instructions: As directed sumatriptan succinate 100 mg tablet See Rx Instructions .ROUTE .COMPLEX Qty: 9 0RF Dose Instruction: TAKE ONE TABLET BY MOUTH AT THE ONSET OF A HEADACHE, IF NO RELIEF MAY REPEAT IN 2 HOURS Rx Instructions: TAKE ONE TABLET BY MOUTH AT THE ONSET OF A HEADACHE, IF NO RELIEF MAY REPEAT IN 2 HOURS lisinopril 10 mg tablet See Rx Instructions .ROUTE .COMPLEX Qty: 30 2RF Dose Instruction: TAKE 1 TABLET BY MOUTH DAILY FOR HIGH BLOOD PRESSURE Rx Instructions: TAKE 1 TABLET BY MOUTH DAILY FOR HIGH BLOOD PRESSURE levothyroxine 25 mcg tablet See Rx Instructions .ROUTE .COMPLEX Qty: 90 0RF Dose Instruction: TAKE ONE TABLET BY MOUTH EVERY DAY Rx Instructions: TAKE ONE TABLET BY MOUTH EVERY DAY lamotrigine 100 mg tablet See Rx Instructions .ROUTE .COMPLEX Qty: 90 0RF Dose Instruction: TAKE ONE TABLET BY MOUTH EVERY DAY Rx Instructions: TAKE ONE TABLET BY MOUTH EVERY DAY albuterol sulfate [Ventolin HFA] 90 mcg/actuation HFA aerosol inhaler 2 puff inhalation Q4H PRN (Reason: shortness of breath or wheezing) Qty: 8.5 2RF albuterol sulfate 0.63 mg/3 mL solution for nebulization 0.63 mg inhalation Q6H budesonide 0.25 mg/2 mL suspension for nebulization 0.25 mg IH BID albuterol sulfate [ProAir HFA] 90 mcg/actuation HFA aerosol inhaler 1 puff inhalation Q6HP PRN (Reason: Shortness Of Breath) ziprasidone HCl 60 mg capsule 60 mg PO BID Rx Instructions: give with food (meal/snack) Referrals Follow up/Referrals: Beny Chris MD [Primary Care Provider] - See instructions Activity Restrictions/Add. Instructions Additional Instructions/Restrictions: Keep the wound clean and dry. Keep a dressing on it if you are going to be getting it dirty. Watch the wound for signs of infection, such as redness, swelling, drainage, fever. etc. Take tylenol for pain. Follow up with your regular doctor. Return in 10 days to have the sutures removed. GO TO THE ER FOR ANY WORSENING SYMPTOMS OR CONCERNS. Clinical Impressions Clinical Impression: Laceration of hand, right, Need for Tdap vaccination Instructions Patient Instructions: DI for Laceration Repair, DI for Laceration Repair -- Simple, Tetanus, Diphtheria, Pertussis (Tdap) Vaccine Discharge ED Provider: eDan Gould [facility] General Stated complaint: AO@home Lesion RT hand 08/18 Mode of Arrival: Ambulatory Limitations: No Limitations Time Seen by Provider: 08/18/22 12:56 Description of Symptoms (Recalled from Triage Doc. 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 Bleeding controlled upon arrival to ED. History of Present Illness Provider Complaint: She states that she cut her right hand while about 30 minutes pt
[2022-08-18 14:54] VITALS: BP 136/96; PULSE 103; RESP 20; TEMP 37.3; O2SAT 94
== END 2022-08-18 14:56 | disposition home or self-care (01) ==
LOC: ER 12:17 → UTC 12:17
PROVIDERS: Emergency Provider Nurse Practitioner Family; PCP Emergency Medicine
DX: S61.411A Laceration without foreign body of right hand, initial encounter (principal); F17.210 Nicotine dependence, cigarettes, uncomplicated; W26.0XXA Contact with knife, initial encounter
CPT/HCPCS: 12001; 90471; 90715; 99213; 99214; G0463

== ENCOUNTER 2023-01-01 19:57 | Observation (INO) | payer MEDICAID, SELFPAY ==
[2023-01-01] VITALS (7 sets, daily range): BP systolic 92–162; BP diastolic 56–98; PULSE 75–99; RESP 18–28; TEMP 36.7–36.9; O2SAT 94–98; BMI 68.5; BMI 72.4
--- NOTE | 2023-01-01 19:52 | ECG_ITS ---
APPROVED REPORT Exam: Resting ECG HR:97 bpm ECG Measurements Heart Rate 97 AXES UT 162 P 67 QRSd 98 QRS 67 QT 335 T 71 QTc 389 Conclusion SINUS RHYTHM LOW QRS VOLTAGE IN PRECORDIAL LEADS [QRS DEFLECTION < 1.0 mV IN CHEST LEADS] BORDERLINE ECG UNCONFIRMED REPORT Electronically signed by : Mario Salcido MD 01/02/2023 19:53:42
--- NOTE | 2023-01-01 20:28 | XR_ITS ---
PROCEDURE INFORMATION: Exam: XR Chest Exam date and time: 01/01/2023 8:41 PM Age: 47 years old Clinical indication: Dyspnea TECHNIQUE: Imaging protocol: Radiologic exam of the chest. Views: 1 view. COMPARISON: CR XR CHEST PORTABLE 06/07/2022 4:29 PM FINDINGS: Tubes, catheters and devices: Percutaneous tracheostomy tube in place with tip projecting over the upper aspect of the tracheal column. Lungs: Moderate lung expansion. Streaky bibasilar opacities. Pleural spaces: No pleural effusion. No pneumothorax. Heart/Mediastinum: Normal cardiomediastinal silhouette. Bones/joints: No acute osseous abnormality. IMPRESSION: Streaky bibasilar opacities which may be on the basis of atelectasis given suboptimal lung expansion. Superimposed aspiration may be considered in this patient with percutaneous tracheostomy tube.
--- NOTE | 2023-01-01 20:30 | HMH.EDGENADL ---
Discharge Plan Disposition Patient Disposition: Admitted Prescriptions Prescriptions: No Action omeprazole 40 mg capsule,delayed release(DR/EC) 40 mg PO DAILY Qty: 90 0RF albuterol sulfate [ProAir HFA] 90 mcg/actuation HFA aerosol inhaler 1 puff inhalation Q6HP PRN (Reason: Shortness Of Breath) Qty: 8.5 2RF albuterol sulfate [Ventolin HFA] 90 mcg/actuation HFA aerosol inhaler 2 puff inhalation Q4H PRN (Reason: shortness of breath or wheezing) Qty: 8.5 2RF sumatriptan succinate 100 mg tablet See Rx Instructions .ROUTE .COMPLEX Qty: 9 0RF Dose Instruction: TAKE ONE TABLET BY MOUTH AT THE ONSET OF A HEADACHE, IF NO RELIEF MAY REPEAT IN 2 HOURS Rx Instructions: TAKE ONE TABLET BY MOUTH AT THE ONSET OF A HEADACHE, IF NO RELIEF MAY REPEAT IN 2 HOURS trazodone 100 mg tablet 100 mg PO HS Qty: 30 1RF Ozempic 0.25 mg or 0.5 mg (2 mg/3 mL) pen injector 0.25 mg SQ WEEKLY Qty: 3 2RF Rx Instructions: 0.25mgv weekly for 4 weeks; then 0.5mg weekly diazepam 10 mg tablet 10 mg PO BID Qty: 60 1RF gabapentin 800 mg tablet 800 mg PO TID Qty: 90 1RF hydrocodone-acetaminophen 7.5-325 mg tablet 1 tab PO TID Qty: 90 0RF formoterol fumarate 20 mcg/2 mL solution for nebulization 20 mcg inhalation BID Qty: 120 3RF budesonide 0.25 mg/2 mL suspension for nebulization 0.25 mg inhalation BID 90 Days Qty: 360 3RF (DME) lancets [OneTouch Delica Plus Lancet] 33 gauge misc See Rx Instructions .Route Qty: 100 12RF Rx Instructions: As directed (DME) OneTouch Verio test strips Strip See Rx Instructions .Route Qty: 100 12RF Rx Instructions: As directed levothyroxine 25 mcg tablet See Rx Instructions .ROUTE .COMPLEX Qty: 90 0RF Dose Instruction: TAKE ONE TABLET BY MOUTH EVERY DAY Rx Instructions: TAKE ONE TABLET BY MOUTH EVERY DAY lamotrigine 100 mg tablet See Rx Instructions .ROUTE .COMPLEX Qty: 90 0RF Dose Instruction: TAKE ONE TABLET BY MOUTH EVERY DAY Rx Instructions: TAKE ONE TABLET BY MOUTH EVERY DAY vilazodone 40 mg tablet 40 mg PO DAILY Qty: 90 0RF Rx Instructions: must administer with a meal/food lisinopril 10 mg tablet See Rx Instructions .ROUTE .COMPLEX Qty: 30 1RF Dose Instruction: TAKE 1 TABLET BY MOUTH DAILY FOR HIGH BLOOD PRESSURE Rx Instructions: TAKE 1 TABLET BY MOUTH DAILY FOR HIGH BLOOD PRESSURE torsemide 100 mg tablet 50 mg PO DAILY Qty: 30 5RF albuterol sulfate 0.63 mg/3 mL solution for nebulization 0.63 mg inhalation Q6H ziprasidone HCl 60 mg capsule 60 mg PO BID Rx Instructions: give with food (meal/snack) Referrals Follow up/Referrals: Provider,Referral, MD [Referring] - See instructions Clinical Impressions Clinical Impression: Acute and chronic respiratory failure, Edema, peripheral, Headache Discharge ED Provider: Chilo Horta General Adult HPI General Chief complaint: Shortness of Breath/Dyspnea Stated complaint: SOA Time Seen by Provider: 01/01/23 20:22 Mode of Arrival: Ambulatory Source of Information: Patient Limitations: No Limitations Description of Symptoms (Recalled from ER Triage Doc. by RN): Pt complains of SOA, increased edema, headache, urinary retention, and chest tightness that has gradually gotten worse over the past several days. Hx of CHF and resp failure (trach). Pt states she is on diuretics but only urinated twice in past 3 days. O2 is currently 98% on room air, pt wears 3L/nc with sleep. History of Present Illness HPI narrative: Patient is a morbidly obese 47-year-old female with a history of obesity hypoventilation syndrome chronic respiratory failure requiring a trach who presents today with worsening shortness of breath. She states that she has worsening peripheral edema and states that she just needs to get the fluid off. She states she takes 100 mg of Lasix and has been on this dose for quite s
[2023-01-01 20:36] LABS: Basophils % 0.3 % (0.1-2.0); Eosinophils # 0.1 K/mm3 (0.0-0.4); Eosinophils % 1.6 % (0.1-12.0); Hematocrit 38.5 % (37.0-47.0); Hemoglobin 11.9 g/dL (12.2-16.2); Lymphocytes # 1.8 K/mm3 (0.7-4.5); Lymphocytes % 23.6 % (10-50); Mean Corpuscular HGB Conc 30.9 g/dL (31.8-35.4); Mean Corpuscular Hemoglobin 26.3 pg (27.0-31.2); Mean Corpuscular Volume 85.1 fl (81-99); Mean Platelet Volume 7.7 fl (7.4-10.4); Monocytes # 0.4 K/mm3 (0.1-1.0); Neutrophils # 5.3 K/mm3 (1.8-7.8); Neutrophils % 69.6 % (37.0-80.0); Platelet Count 228 K/mm3 (142-424); Red Blood Count 4.53 M/mm3 (4.20-5.40); Red Cell Distribution Width 16.5 % (11.5-17.5); White Blood Count 7.6 K/mm3 (4.8-10.8)
[2023-01-01 20:37] LABS: Chloride 103 mmol/L (98-107); Potassium 4.2 mmoL/L (3.5-5.1); Sodium 143 mmol/L (136-145)
[2023-01-01 20:40] LABS: Alanine Aminotransferase 20 U/L (12-78); Albumin Level 3.7 g/dl (3.5-5.0); Albumin/Globulin Ratio 1.1 (1.1-1.8); Alkaline Phosphatase 90 U/L (38-126); Anion Gap 9.2 mEq/L (5-15); Aspartate Amino Transferase 30 U/L (14-36); Bilirubin,Total 0.2 mg/dl (0.2-1.3); Blood Urea Nitrogen 16 mg/dl (7-17); Carbon Dioxide 35 mmol/L (22.0-30.0); Creatinine Clearance Estimated 65 mL/min (50-200); Estimated Glomerular Filt Rate 77 ml/min (>60); GFR (African American) 93 ML/MIN (>60); Globulin 3.4 g/dL (1.3-3.2); Total Protein,Serum 7.1 g/dl (6.3-8.2)
[2023-01-01 20:41] LABS: Calcium 8.6 mg/dl (8.4-10.2); Glucose 116 mg/dl (74-100)
[2023-01-01 20:58] LABS: Troponin I < 0.01 ng/ml (0.00-0.034)
[2023-01-01 21:10] LABS: NT Pro Brain Natriuretic Pep. 350 pg/mL (0-125)
--- NOTE | 2023-01-01 21:41 | PC.NURSE ---
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
--- NOTE | 2023-01-01 21:42 | PC.NURSE ---
PATIENT IS OBSERVATION ADMISSION TO [facility] in [place] WITH RESP FAILURE TO SERVICE OF DR. SAWANT.
[2023-01-01 21:59] LABS: VBG Base Excess 2.7 mmol/L (-2.4-2.3); VBG HCO3 29.3 mmol/L (23-30); VBG Oxygen Saturation 97.6 % (50-70); VBG PH 7.29 mmol/L (7.31-7.41); VBG PO2 110.2 mmol/L (28-40); VBG Total CO2 31.2 mmol/L (23-27)
[2023-01-01 22:01] LABS: VBG PCO2 62.8 mmol/L (35-51)
--- NOTE | 2023-01-01 22:03 | PC.NURSE ---
Report called to [facility] #[id number]
--- NOTE | 2023-01-01 22:48 | EXP.HP ---
History of Present Illness *Admission Date: 01/01/23 *Reason for visit:: SOB *History of present illness: This is a morbidly obese 47-year-old female with a PMHx of hypoventilation syndrome chronic, respiratory failure requiring a trach, MDD, migraine, hypothyroidism with anxiety, diastolic heart failure with preserved EF, and current smoker who presents today with worsening shortness of breath. She stated that she has worsening peripheral edema that does not respond to home diuresis regimen. She stated she takes 100 mg of Lasix and has been on this dose for quite some time,. She also states she has a severe headache and body aches. No sudden component to this, no fevers or chills, no neurologic complaints. She states she has become so lethargic over the last few days that she is unable to get up and walk. She referred weight gain about 20 pd since last PCP office visit back on 12/07. patient admitted for further management. [facility] Disclaimer: The information contained in this section may have been updated after the patient was seen, as this information can be updated by other users. Medical History (Updated 01/02/23 @ 09:54 by Tian Diaz MD) Abnormal stress test Acute and chronic respiratory failure Acute and chronic respiratory failure Acute and chronic respiratory failure with hypercapnia Acute on chronic diastolic heart failure Acute on chronic diastolic heart failure Angina, class III Anxiety Asthma Asthma Asthma exacerbation Chest pain Chronic respiratory failure with hypercapnia Congestive heart failure COPD (chronic obstructive pulmonary disease) COVID-19 Depression Diabetes mellitus, type 2 Diastolic congestive heart failure Diastolic dysfunction Dizziness Dyspnea Edema Elevated d-dimer Generalized anxiety disorder History of asthma History of ectopic History of hyperkalemia History of sleep apnea History of smoking 30 or more pack years HLD (hyperlipidemia) HTN (hypertension) Hypothyroidism (~11/21/17) Insomnia Neuropathy Obesity hypoventilation syndrome PAC (premature atrial contraction) Paranoid schizophrenia Pneumonia Pneumonia Recurrent major depression resistant to treatment Respiratory failure with hypoxia and hypercapnia Right lower lobe pneumonia Severe sepsis Sinus tachycardia Sleep apnea SOB (shortness of breath) Tobacco abuse Tracheostomy care Tracheostomy in place Uses bilevel positive airway pressure (BPAP) ventilation at home Surgical History History of hysterectomy History of left knee surgery Family History Other No significant family history Social History (Updated 01/02/23 @ 00:16 by Raquel Angela RN) Smoking Status: Current every day smoker tobacco type: cigarettes packs per day: 1 smoking status stop date: 02/2022 alcohol intake: former substance use type: marijuana current occupational status: disabled Travel in the last 8 weeks: None household members: family housing: apartment number of children: 0 current occupational exposures/hazards: No caffeine: Yes Review of Systems Review of Systems Review of systems:: pertinent systems reviewed and negative unless documented below Meds Home Medications and Allergies Home Medications Medication Instructions Recorded Confirmed Type omeprazole 40 mg capsule,delayed 40 mg PO DAILY acid reflux #90 caps 06/22/22 01/01/23 Rx release albuterol sulfate 90 mcg/actuation 1 puff inhalation Q6HP PRN 12/07/22 01/01/23 Rx aerosol inhaler (ProAir HFA) Shortness Of Breath #8.5 grams diazepam 10 mg tablet 10 mg PO BID Anxiety #60 tabs 12/07/22 01/01/23 Rx gabapentin 800 mg tablet 800 mg PO TID Neuropathy #90 tabs 12/07/22 01/01/23 Rx blood sugar diagnostic (OneTouch 01/01/23 01/01/23 History Verio test strips) budesonide 0.25 mg/2 mL suspension 0.25 mg inhalation BID Copd 01/01/2301/01
[2023-01-02] VITALS (15 sets, daily range): BP systolic 122–155; BP diastolic 65–96; PULSE 80–110; RESP 17–19; TEMP 36.6–37.2; O2SAT 92–97; BMI 72.4
[2023-01-02 00:40] LABS: Troponin I < 0.01 ng/ml (0.00-0.034)
--- NOTE | 2023-01-02 01:54 | PC.NURSE ---
purewick removed by pt. castro cath 16fr inserted at 0149 by Sarika Angela RN r/t pt request to be catheterized. pt stated she has been soa causing difficulty getting up and down to the BSC with diuresis. pt educated on risk of infection and once soa improves, castro will be DC'd. pt verbalized understanding. UA sent to lab per protocol.
[2023-01-02 02:10] LABS: Amphetamine/Metha Screen,Urine Negative ng/ml (<1000)
[2023-01-02 02:11] LABS: Barbiturates Screen,Urine Negative ng/ml (<200); Benzodiazepines Screen,Urine Positive ng/ml (<200)
[2023-01-02 02:12] LABS: Cannabinoid Screen,Urine Negative ng/ml (<50)
[2023-01-02 02:13] LABS: Cocaine Screen,Urine Negative ng/ml (<300); Methadone Screen,Urine Negative ng/ml (<300)
[2023-01-02 02:14] LABS: Opiate Screen,Urine Positive ng/ml (<300)
[2023-01-02 02:15] LABS: Phencyclidine Screen,Urine Negative ng/ml (<25)
[2023-01-02 02:15] LABS: Microscopic,Cath URINE MICROSCOPIC (MICROSCOPIC)
[2023-01-02 02:16] LABS: Appearance,Urine/Cath CLEAR (Clear); Bilirubin,Cath Negative (Negative); Blood, Urine/Cath Negative (Negative); Color,Urine/Cath YELLOW (Yellow); Glucose,Urine/Cath (UA) Negative (Negative); Ketones,Urine/Cath Negative (Negative); Leukocyte Esterase,Cath Negative (Negative); Nitrate,Cath Negative (Negative); PH,Urine/Cath 5.5 (5.0-8.5); Protein,Urine/Cath Negative (Negative); Specific Gravity, Urine/Cath 1.015 (1.005-1.030); Urobilinogen,Cath 0.2 EU/dl (0.2)
[2023-01-02 02:27] LABS: Squamous Epithelial Ur./Cath Occasional #/hpf (0-5)
[2023-01-02 03:32] LABS: Troponin I < 0.01 ng/ml (0.00-0.034)
--- NOTE | 2023-01-02 06:00 | CA_ITS ---
APPROVED REPORT EXAM: Comprehensive 2D, Doppler, and color-flow Echocardiogram Loan Operations Specialist: Maame Rider RDCS Ht: 5 ft 1 in Wt: 363lbs BSA: 2.43 BP: 162/87 mmHg Rhythm: NSR Indications: CHF,RESP FAILURE,SOA,MORBID OBESITY,TRACHED 2D Dimensions LVOT 1.70 cm (M/F) 1.5-2.5 M-Mode Dimensions RVDd 2.99 cm (0.9-2.6) LA Diam 3.47 cm (1.9-4.0) LVDd 5.45 cm (3.5-5.7) Ao Diam 3.03 cm (2.0-3.7) LVDs 3.67 cm (3.5-5.7) IVSd 0.93 cm (0.6-1.1) PWd 0.89 cm (0.6-1.1) EF (Teich) 60.50% FS 32.70% EDV (Teich) 144.40 mL ESV (Teich) 57.00 mL LV Diastology E Decel Time 170.00 (160-240 msec) E/A Ratio 0.8 MED E' 9.60 (< 7 cm/sec) E'/MED E' Ratio 6.52 (>14) LAT E' 12.60 (<10 cm/sec) E/LAT E' Ratio 4.97 (>14) Mitral Valve MV E Max Tonny. 63.00 (40-130 cm/s) MV A Velocity 80.00 (40-130 cm/s) E/A Ratio 0.78 MV Decel. Time 170.00 (160-240 ms) MV PHT 50.00 ms Left Ventricle The left ventricle is normal size. The left ventricular systolic function is normal. The left ventricular ejection fraction is within the normal range. There is normal left ventricular wall thickness. There is normal LV segmental wall motion. The left ventricular diastolic function is normal. LVEF is 60%. Right Ventricle The right ventricle is normal size. The right ventricular systolic function is normal. Atria The left atrium size is normal. The right atrium size is normal. There is no Doppler evidence of interatrial shunt. Aortic Valve The aortic valve is normal in structure. There is no aortic valvular stenosis. No aortic regurgitation is present. Mitral Valve The mitral valve is normal in structure. No evidence of mitral valve stenosis. Trace mitral regurgitation. Tricuspid Valve The tricuspid valve leaflets are thin and pliable. Trace tricuspid regurgitation. RVSP is normal Pulmonic Valve The pulmonary valve is normal in structure. Trace pulmonic regurgitation. Great Vessels The aortic root is normal in size. The ascending aorta is not well visualized. IVC is normal in size, collapses > 50% with inspiration. Pericardium There is no pericardial effusion. Other Information Study Quality: Fair Conclusion Normal biventricular systolic function. No significant valvular disease. Electronically signed by : Melissa Jackson, 01/02/2023 17:49:44
[2023-01-02 06:48] LABS: Basophils % 0.1 % (0.1-2.0); Eosinophils # 0.1 K/mm3 (0.0-0.4); Eosinophils % 1.6 % (0.1-12.0); Hematocrit 36.1 % (37.0-47.0); Hemoglobin 11.1 g/dL (12.2-16.2); Lymphocytes # 1.3 K/mm3 (0.7-4.5); Lymphocytes % 23.9 % (10-50); Mean Corpuscular HGB Conc 30.7 g/dL (31.8-35.4); Mean Corpuscular Hemoglobin 26.3 pg (27.0-31.2); Mean Corpuscular Volume 85.4 fl (81-99); Mean Platelet Volume 7.7 fl (7.4-10.4); Monocytes # 0.3 K/mm3 (0.1-1.0); Monocytes % 5.3 % (1.7-9.3); Neutrophils # 3.7 K/mm3 (1.8-7.8); Platelet Count 201 K/mm3 (142-424); Red Blood Count 4.23 M/mm3 (4.20-5.40); Red Cell Distribution Width 16.5 % (11.5-17.5); White Blood Count 5.4 K/mm3 (4.8-10.8)
[2023-01-02 06:55] LABS: Alanine Aminotransferase 15 U/L (12-78); Albumin Level 3.3 g/dl (3.5-5.0); Albumin/Globulin Ratio 1.1 (1.1-1.8); Alkaline Phosphatase 79 U/L (38-126); Anion Gap 6.9 mEq/L (5-15); Aspartate Amino Transferase 21 U/L (14-36); Blood Urea Nitrogen 15 mg/dl (7-17); Calcium 8.2 mg/dl (8.4-10.2); Carbon Dioxide 37 mmol/L (22.0-30.0); Chloride 103 mmol/L (98-107); Chol/HDL Ratio 4.6 (1-3.5); Cholesterol 125 mg/dl (140-200); Creatinine Clearance Estimated 58 mL/min (50-200); Estimated Glomerular Filt Rate 67 ml/min (>60); GFR (African American) 81 ML/MIN (>60); Globulin 3.1 g/dL (1.3-3.2); Glucose 117 mg/dl (74-100); HDL Cholesterol 27 mg/dl (40-60); Magnesium 1.8 mg/dl (1.6-2.3); Potassium 3.9 mmoL/L (3.5-5.1); Sodium 143 mmol/L (136-145); Total Protein,Serum 6.4 g/dl (6.3-8.2); Triglycerides 198 mg/dl (30-150); VLDL Cholesterol 40 mg/dL (0-40)
[2023-01-02 06:57] LABS: Bilirubin,Total 0.1 mg/dl (0.2-1.3)
[2023-01-02 07:06] LABS: Direct LDL Cholesterol 67.35 mg/dL (100-129)
--- NOTE | 2023-01-02 08:43 | EXP.PULM.CON ---
History of Present Illness History of present illness: Ms. Badillo is a 47-year-old female history of sleep apnea, obesity hypoventilation syndrome chronic hypercarbic respiratory failure moderate persistent asthma status post tracheostomy in July 2021, Diastolic heart failure presented hospital worsening respiratory distress admitted for further management pulmonary was consulted. [facility] Disclaimer: The information contained in this section may have been updated after the patient was seen, as this information can be updated by other users. Medical History (Updated 01/02/23 @ 09:54 by Tian Diaz MD) Abnormal stress test Acute and chronic respiratory failure Acute and chronic respiratory failure Acute and chronic respiratory failure with hypercapnia Acute on chronic diastolic heart failure Acute on chronic diastolic heart failure Angina, class III Anxiety Asthma Asthma Asthma exacerbation Chest pain Chronic respiratory failure with hypercapnia Congestive heart failure COPD (chronic obstructive pulmonary disease) COVID-19 Depression Diabetes mellitus, type 2 Diastolic congestive heart failure Diastolic dysfunction Dizziness Dyspnea Edema Elevated d-dimer Generalized anxiety disorder History of asthma History of ectopic History of hyperkalemia History of sleep apnea History of smoking 30 or more pack years HLD (hyperlipidemia) HTN (hypertension) Hypothyroidism (~11/21/17) Insomnia Neuropathy Obesity hypoventilation syndrome PAC (premature atrial contraction) Paranoid schizophrenia Pneumonia Pneumonia Recurrent major depression resistant to treatment Respiratory failure with hypoxia and hypercapnia Right lower lobe pneumonia Severe sepsis Sinus tachycardia Sleep apnea SOB (shortness of breath) Tobacco abuse Tracheostomy care Tracheostomy in place Uses bilevel positive airway pressure (BPAP) ventilation at home Surgical History History of hysterectomy History of left knee surgery Family History Other No significant family history Social History (Updated 01/02/23 @ 00:16 by Raquel Angela RN) Smoking Status: Current every day smoker tobacco type: cigarettes packs per day: 1 smoking status stop date: 02/2022 alcohol intake: former substance use type: marijuana current occupational status: disabled Travel in the last 8 weeks: None household members: family housing: apartment number of children: 0 current occupational exposures/hazards: No caffeine: Yes Review of Systems Constitutional Constitutional: Reports anorexia, Reports body ache(s) and Reports fatigue Eyes Eyes: Denies eye discharge, Denies dry eyes, Denies irritation and Denies itchy eyes ENT Ears, Nose, Mouth, and Throat: Denies epistaxis, Denies facial pain, Denies lip swelling and Denies throat swelling *Cardiovascular Cardiovascular: Reports dyspnea, Reports dyspnea on exertion, Reports leg edema and Reports orthopnea *Respiratory Respiratory: Denies change in phlegm color, Reports chest congestion, Reports cough, Reports dyspnea, Reports dyspnea on exertion, Denies excessive phlegm production and Reports wheezing *Gastrointestinal Gastrointestinal: Denies abdominal pain, Denies belching and Denies cramping *Musculoskeletal Musculoskeletal: Reports back pain, Reports myalgias and Reports other (No small joint swelling or Pain) Psychiatric Psychiatric: Denies homicidal ideation and Denies suicidal ideation Endocrine Endocrine: Reports fatigue and Denies heat intolerance Hematologic/Lymphatic Hematologic/Lymphatic: Denies easy bleeding and Denies lymphadenopathy Allergic/Immunologic Allergic/Immunologic: Denies itchy eyes, Denies lip swelling, Denies throat swelling and Reports wheezing Pulmonology Exam Inpatient Vital signs and Labs for Last 24 Hours: Temp Pulse Resp BP Pulse Ox O2 Del Method O2 Flow R
[2023-01-02 08:54] LABS: Creatine Kinase 99 U/L (30-135)
[2023-01-02 09:26] LABS: Thyroid Stimulating Hormone 4.99 uIU/mL (0.465-4.68)
--- NOTE | 2023-01-02 09:53 | P.CONPHA_ITS ---
Pharmacy Intervention Comments: Patient's home medications were verified using list from [facility] pharmacy and the external history resource -Jorge Belle, PharmD student
--- NOTE | 2023-01-02 09:53 | HMH.PHAINT1 ---
Pharmacy Intervention Comments: Patient's home medications were verified using list from health system pharmacy and the external history resource -Jorge Belle, PharmD student
--- NOTE | 2023-01-02 10:26 | HMH.PTEV ---
Physical Therapy Evaluation Rehab PT IP Evaluation Start: 01/02/23 07:03 Freq: ONCE Status: Active Protocol: Document 01/02/23 10:22 EVE (Rec: 01/02/23 10:26 EVE [id number]) Subjective/History History History 47 [address] [facility] with respiratory failure with poss fluid overload. She has hx of trach, MDD, mirgraine, HF, anxiety. She uses oxygen at night only via c-pap. She reports she is otherwise independent with all mobility and ADLs, lives alone, 3 steps to enter the home. Subjective Subjective Pt reports she feels tired and mildly SOA with exertion, but not much worse than normal today. Rehab PT IP Eval Objective Appearance Patient Behavior Appropriate Patient Orientation Person,Place,Time Difficulty following instructions none Speech Pattern Clear Ambulation Patient Able to Ambulate Yes Ambulation Observation IP General Gait Pattern Observation Wide Based Gait Ambulation Distance (feet) 40 Ambulation Assistive Device None Ambulation Ability Independent Balance Ability to Arise Able, uses arms to help Sitting Balance Steady, safe Standing Balance Steady, wide stance Dynamic Sitting Balance Ability Good Dynamic Standing Balance Ability Good Transfers Bed Transfer Ability Independent Chair Transfer Ability Independent Sit to Stand Bed Transfer Ability Independent Sit to Stand Chair Transfer Ability Independent ROM All Extremities PT ROM Status WFL MMT All Extremities PT MMT WFL Rehab PT IP prob,goals,plan Problems Date of Evaluation: 01/02/23 Discharge Plan PT Discharge Plan Pt is currently at baseline for all mobility and is appropriate to return home once medically stable. G -code Required No Eval Complexity Eval Charge Codes 64500 - High Complexity PHYSICIAN CERTIFICATION: I certify the specified therapy services for Carin Badillo are required, authorized, and reviewed every 30 days.
--- NOTE | 2023-01-02 10:54 | HMH.OTEV ---
OT Inpatient Evaluation Rehab OT IP Evaluation Start: 01/02/23 07:03 Freq: ONCE Status: Active Protocol: Document 01/02/23 10:52 BENJI (Rec: 01/02/23 10:54 [facility] [id number]) Rehab OT IP Assessment Subjective History Pt oriented x 3 on arrival. Pt agreeable to engage in therapy evaluation. Pt is a 47 yowf adm to [facility] with respiratory failure with poss fluid overload. She has hx of trach, MDD, mirgraine, HF, anxiety. She uses oxygen at night only via c-pap. She reports she is otherwise independent with all mobility and ADLs, lives alone, 3 steps to enter the home. Subjective I am just tired this morning. Objective Patient Orientation Person,Place,Birthday Upper Extremity Gross ROM WFL Bed Mobility bed mobility-scooting,bed mobility - supine/sit,bed mobility - rolling Assist Level Supervision/Stand by Transfer Training Sit/Stand Transfer Assist Level Supervision/Stand by Chair Transfer Ability Supervision/Stand by Chair Transfer Technique Sit to/from Ambulatory Chair Transfer Assistive Devices None Lower Body Dressing Ability Standby Assistance Rehab OT IP prob,goals,plan Problems Date of Evaluation: 01/02/23 Rehab Potential Rehab Potential Innapropriate for Skilled Therapy Discharge Plan OT Discharge Plan Pt appears to be at her baseline with all functional transfers and ADL independence . Pt can return home once medically stable per physician . Eval Complexity Eval Charge Codes 49090 - Low Complexity G Codes G -code Required No PHYSICIAN CERTIFICATION: I certify the specified therapy services for Carin Badillo are required, authorized, and reviewed every 30 days.
--- NOTE | 2023-01-02 11:00 | PC.NURSE ---
RESPIRATORY CARE NOTE: SPUTUM SAMPLE SENT TO LAB AT THIS TIME
--- NOTE | 2023-01-02 14:31 | EXP.ACUTE.PN ---
Subjective *Date: 01/02/23 *Time: 17:15 Interval history: Tolerating her home BiPAP. Diuresing well. -2.5 L by rounds. PT and OT evaluating patient this morning. Given concern for lower lobe consolidation, pulmonology has initiated levofloxacin. Electrolytes stable on morning labs. Denies any nausea or vomiting. Kumar still in place on morning rounds Medical Exam Vital signs and Labs for Last 24 Hours: Vital Signs Temp Pulse Pulse Resp BP BP Pulse Ox 01/02/23 14:15 91 H 01/02/23 14:15 91 H 01/02/23 13:00 01/02/23 08:00 87 01/02/23 11:08 98.6 F 87 19 147/79 H 92 L 01/02/23 10:55 86 01/02/23 10:55 89 01/02/23 10:49 01/02/23 08:34 01/02/23 07:26 98.9 F 87 18 122/65 94 L 01/02/23 06:13 01/02/23 04:54 90 01/02/23 00:03 90 01/02/23 04:44 01/02/23 04:00 98.4 F 88 18 148/84 H 92 L 01/02/23 02:18 01/02/23 02:33 01/02/23 00:51 01/02/23 00:07 97.8 F 80 18 124/82 97 01/01/23 23:00 01/01/23 22:45 98.0 F 99 H 18 136/81 94 L 01/01/23 22:01 98.5 F 75 20 162/87 H 01/01/23 22:01 01/01/23 21:30 86 92/56 L 95 01/01/23 21:01 80 96/56 L 95 01/01/23 20:31 129/72 94 L 01/01/23 20:01 92 H 21 127/80 94 L 01/01/23 19:57 98.5 F 97 H 28 H 160/98 H 98 O2 Del Method O2 Flow Rate 01/02/23 14:15 01/02/23 14:15 01/02/23 13:00 BiPAP 01/02/23 08:00 01/02/23 11:08 Room Air 01/02/23 10:55 01/02/23 10:55 01/02/23 10:49 Room Air 01/02/23 08:34 BiPAP 01/02/23 07:26 Room Air 01/02/23 06:13 BiPAP 01/02/23 04:54 01/02/23 00:03 01/02/23 04:44 BiPAP 01/02/23 04:00 Room Air 01/02/23 02:18 Room Air, BiPAP 01/02/23 02:33 BiPAP 01/02/23 00:51 BiPAP 01/02/23 00:07 Room Air 01/01/23 23:00 BiPAP 3 01/01/23 22:45 Room Air 01/01/23 22:01 Room Air 01/01/23 22:01 Room Air 01/01/23 21:30 Room Air 01/01/23 21:01 Room Air 01/01/23 20:31 Room Air 01/01/23 20:01 Room Air 01/01/23 19:57 Room Air Intake and Output 01/01/23 01/02/23 01/02/23 23:59 07:59 15:59 Intake Total 360 / 720 360 / 720 Output Total 2750 / 3875 1125 / 3875 Balance -2390 / -3155 -765 / -3155 Intake: Intake, Oral Amount 360 / 720 360 / 720 Output: Output, Urine Amount 2750 / 3575 825 / 3575 Output, Urine Amount (Catheter) 300 / 300 Kumar 300 / 300 Other: Number of Unmeasured Voids 0 0 Weight 174 kg 174 kg Patient Weight 01/02/23 23:59 Weight 174 kg Laboratory Results - last 24 hr 01/01/23 01:54: Urine Opiates Screen Positive H, Urine Methadone Screen Negative, Ur Barbituates Screen Negative, Ur Phencyclidine Scrn Negative, Ur Amphetamines Screen Negative, U Benzodiazepines Scrn Positive H, Urine Cocaine Screen Negative, U Marijuana (THC) Screen Negative 01/01/23 19:58: WBC 7.6, RBC 4.53, Hgb 11.9 L, Hct 38.5, MCV 85.1, MCH 26.3 L, MCHC 30.9 L, RDW 16.5, Plt Count 228, MPV 7.7, Neut % (Auto) 69.6, Lymph % (Auto) 23.6, Faulkner % (Auto) 5.0, Eos % (Auto) 1.6, Baso % (Auto) 0.3, Neut # (Auto) 5.3, Lymph # (Auto) 1.8, Faulkner # (Auto) 0.4, Eos # (Auto) 0.1, Baso # (Auto) 0.0, Sodium 143, Potassium 4.2, Chloride 103, Carbon Dioxide 35 H, Anion Gap 9.2, BUN 16, Creatinine 0.80, Estimated Creat Clear 65, Estimated GFR 77, Est GFR ( Amer) 93, Glucose 116 H, Calcium 8.6, Total Bilirubin 0.2, AST 30, ALT 20, Alkaline Phosphatase 90, Troponin I < 0.01, NT-Pro-B Natriuret Pep 350 H, Total Protein 7.1, Albumin 3.7, Globulin 3.4 H, Albumin/Globulin Ratio 1.1 01/01/23 20:29: VBG pH 7.29 L, VBG pCO2 62.8 H, VBG pO2 110.2 H, VBG HCO3 29.3, VBG Total CO2 31.2 H, VBG O2 Saturation 97.6 H, VBG Base Excess 2.7 H 01/01/23 23:40: Troponin I < 0.01 01/02/23 01:55: Urine Color Yellow, Urine Appearance Clear, Urine pH 5.5, Ur Specific [place] 1.015, Urine Protein Negative, Urine Glucose (UA) Negative
--- NOTE | 2023-01-02 14:33 | PC.NURSE ---
PT IS SITTING UP ON THE SOB. PT HAS SLEPT OFF AND ON T/O THE SHIFT. EATING AND DRINKING WELL. PT HAS DIURESED WELL THIS SHIFT. PT REQUESTED FOR CATHETER TO BE DC'D SO SHE COULD USE THE BSC. LUNG SOUNDS DIMINISHED WITH BILATERAL FINE CRACKLES (BASES). SWELLING NOTED TO BLE/BUE. ABDOMEN SOFT/OBESE/NON TENDER. PT AMBULATED IN THE ROOM WITH PHYSICAL THERAPY. WILL CONTINUE TO MONITOR.
--- NOTE | 2023-01-02 15:48 | PC.NURSE ---
courtesy tech note: pt is sitting on side of bed after using BSC. BSC emptied and documented. call light is within reach.
[2023-01-02 18:37] LABS: Anion Gap 11.1 mEq/L (5-15); Blood Urea Nitrogen 16 mg/dl (7-17); Carbon Dioxide 35 mmol/L (22.0-30.0); Chloride 99 mmol/L (98-107); Creatinine Clearance Estimated 58 mL/min (50-200); Estimated Glomerular Filt Rate 67 ml/min (>60); GFR (African American) 81 ML/MIN (>60); Glucose 93 mg/dl (74-100); Potassium 4.1 mmoL/L (3.5-5.1); Sodium 141 mmol/L (136-145)
[2023-01-03] VITALS (8 sets, daily range): BP systolic 107–128; BP diastolic 59–90; PULSE 69–100; RESP 17–19; TEMP 36.6–36.9; O2SAT 92–96; BMI 72.4
--- NOTE | 2023-01-03 04:17 | PC.NURSE ---
NO ACUTE CHANGES THIS SHIFT. VSS. PT HAS SLEPT INTERMITTENTLY. HAS C/O PAIN AND ANXIETY X1 AND WAS TREATED PER MAR. NO OTHER NEEDS VOICED. PT DID STATE AT THE BEGINNING OF THE SHIFT THAT SHE WAS READY TO BE BACK AT HOME.
[2023-01-03 07:00] LABS: Basophils % 0.3 % (0.1-2.0); Eosinophils # 0.1 K/mm3 (0.0-0.4); Eosinophils % 1.1 % (0.1-12.0); Hematocrit 40.2 % (37.0-47.0); Hemoglobin 12.2 g/dL (12.2-16.2); Lymphocytes # 1.6 K/mm3 (0.7-4.5); Mean Corpuscular HGB Conc 30.3 g/dL (31.8-35.4); Monocytes # 0.4 K/mm3 (0.1-1.0); Monocytes % 6.1 % (1.7-9.3); Neutrophils # 4.8 K/mm3 (1.8-7.8); Neutrophils % 69.5 % (37.0-80.0); Platelet Count 206 K/mm3 (142-424); Red Blood Count 4.67 M/mm3 (4.20-5.40); Red Cell Distribution Width 16.6 % (11.5-17.5); White Blood Count 6.9 K/mm3 (4.8-10.8)
[2023-01-03 07:09] LABS: Chloride 99 mmol/L (98-107)
[2023-01-03 07:10] LABS: Potassium 4.2 mmoL/L (3.5-5.1); Sodium 138 mmol/L (136-145)
[2023-01-03 07:12] LABS: Alanine Aminotransferase 18 U/L (12-78); Albumin Level 3.7 g/dl (3.5-5.0); Albumin/Globulin Ratio 1.1 (1.1-1.8); Alkaline Phosphatase 87 U/L (38-126); Anion Gap 9.2 mEq/L (5-15); Aspartate Amino Transferase 25 U/L (14-36); Bilirubin,Total 0.2 mg/dl (0.2-1.3); Blood Urea Nitrogen 19 mg/dl (7-17); Calcium 9.2 mg/dl (8.4-10.2); Carbon Dioxide 34 mmol/L (22.0-30.0); Creatinine Clearance Estimated 58 mL/min (50-200); Estimated Glomerular Filt Rate 67 ml/min (>60); GFR (African American) 81 ML/MIN (>60); Globulin 3.3 g/dL (1.3-3.2); Glucose 137 mg/dl (74-100)
[2023-01-03 07:13] LABS: Magnesium 1.9 mg/dl (1.6-2.3)
--- NOTE | 2023-01-03 07:49 | EXP.PN ---
Subjective *Date: 01/03/23 *Time: 07:49 Exam Data for Last 24 hours Vital signs and Labs for Last 24 Hours: Temp Pulse Resp BP Pulse Ox O2 Del Method O2 Flow Rate 98.5 F 99 H 19 128/90 96 Room Air 3 01/03/23 07:46 01/03/23 07:46 01/03/23 07:46 01/03/23 07:46 01/03/23 07:46 01/03/23 07:46 01/01/23 23:00 Laboratory Results - last 24 hr 01/02/23 06:07: Total Creatine Kinase 99, TSH 4.99 H 01/02/23 17:45: Sodium 141, Potassium 4.1, Chloride 99, Carbon Dioxide 35 H, Anion Gap 11.1, BUN 16, Creatinine 0.90, Estimated Creat Clear 58, Estimated GFR 67, Est GFR ( Amer) 81, Glucose 93 D, Calcium 9.0 01/03/23 06:32: WBC 6.9 D, RBC 4.67, Hgb 12.2, Hct 40.2, MCV 86.0, MCH 26.0 L, MCHC 30.3 L, RDW 16.6, Plt Count 206, MPV 8.0, Neut % (Auto) 69.5, Lymph % (Auto) 23.0, Crockett % (Auto) 6.1, Eos % (Auto) 1.1, Baso % (Auto) 0.3, Neut # (Auto) 4.8, Lymph # (Auto) 1.6, Crockett # (Auto) 0.4, Eos # (Auto) 0.1, Baso # (Auto) 0.0, Sodium 138, Potassium 4.2, Chloride 99, Carbon Dioxide 34 H, Anion Gap 9.2, BUN 19 H, Creatinine 0.90, Estimated Creat Clear 58, Estimated GFR 67, Est GFR ( Amer) 81, Glucose 137 H D, Calcium 9.2, Magnesium 1.9, Total Bilirubin 0.2, AST 25, ALT 18, Alkaline Phosphatase 87, Total Protein 7.0, Albumin 3.7 D, Globulin 3.3 H, Albumin/Globulin Ratio 1.1 I & O for Last 24 hours: Intake & Output 12/31/22 01/01/23 01/02/23 01/03/23 23:59 23:59 23:59 23:59 Intake Total 1320 / 1500 540 / 540 Output Total 8600 / 8600 1100 / 1100 Balance -7280 / -7100 -560 / -560 Weight 174 kg 174 kg 174 kg Microbiology Reports for the Last 24 Hours: Microbiology 01/02/23 11:00 Sputum - Endotracheal Tube Aspirate Gram Stain - Final
--- NOTE | 2023-01-03 09:30 | US_ITS ---
FINAL REPORT CLINICAL HISTORY: rule out abscess abdominal wall LUQ FINDINGS: Limited sonographic images were obtained of the left upper quadrant. At the region of the palpable abnormality is a fluid collection measuring approximately 5 x 3.7 x 1.2 cm, likely fluid. This may represent a hematoma, seroma, or abscess. IMPRESSION: Fluid collection at the area of interest with differential consideration as above. Reviewed, Interpreted and Dictated by Pranay Miller III, MD Transcribed by Venessa Howe Authenticated and [facility]
--- NOTE | 2023-01-03 09:39 | EXP.PULM.PN ---
Subjective *Date: 01/03/23 *Time: 11:31 Interval history: No acute respiratory vents overnight. Patient admits continued improvement in her respiratory symptoms. Pulmonology Exam Inpatient Vital signs and Labs for Last 24 Hours: Temp Pulse Resp BP Pulse Ox O2 Del Method O2 Flow Rate 98.5 F 99 H 19 128/90 96 Room Air 3 01/03/23 07:46 01/03/23 07:46 01/03/23 07:46 01/03/23 07:46 01/03/23 07:46 01/03/23 09:32 01/01/23 23:00 Laboratory Results - last 24 hr 01/02/23 17:45: Sodium 141, Potassium 4.1, Chloride 99, Carbon Dioxide 35 H, Anion Gap 11.1, BUN 16, Creatinine 0.90, Estimated Creat Clear 58, Estimated GFR 67, Est GFR ( Amer) 81, Glucose 93 D, Calcium 9.0 01/03/23 06:32: WBC 6.9 D, RBC 4.67, Hgb 12.2, Hct 40.2, MCV 86.0, MCH 26.0 L, MCHC 30.3 L, RDW 16.6, Plt Count 206, MPV 8.0, Neut % (Auto) 69.5, Lymph % (Auto) 23.0, Elbert % (Auto) 6.1, Eos % (Auto) 1.1, Baso % (Auto) 0.3, Neut # (Auto) 4.8, Lymph # (Auto) 1.6, Elbert # (Auto) 0.4, Eos # (Auto) 0.1, Baso # (Auto) 0.0, Sodium 138, Potassium 4.2, Chloride 99, Carbon Dioxide 34 H, Anion Gap 9.2, BUN 19 H, Creatinine 0.90, Estimated Creat Clear 58, Estimated GFR 67, Est GFR ( Amer) 81, Glucose 137 H D, Calcium 9.2, Magnesium 1.9, Total Bilirubin 0.2, AST 25, ALT 18, Alkaline Phosphatase 87, Total Protein 7.0, Albumin 3.7 D, Globulin 3.3 H, Albumin/Globulin Ratio 1.1 I & O for Labs for Last 24 Hours: Intake & Output 12/31/22 01/01/23 01/02/23 01/03/23 23:59 23:59 23:59 23:59 Intake Total 1320 / 1500 540 / 540 Output Total 8600 / 8600 1400 / 1400 Balance -7280 / -7100 -860 / -860 Weight 383 lb 9.669 oz 383 lb 9.669 oz 383 lb 9.669 oz Microbiology Reports for the Last 24 Hours: Microbiology 01/02/23 11:00 Sputum - Endotracheal Tube Aspirate Gram Stain - Final 01/02/23 11:00 Sputum - Endotracheal Tube Aspirate Sputum Culture - Preliminary Constitutional: Present moderate distress Head: Present normocephalic and atraumatic ENT: Present normal exam, normal oropharynx and mucous membranes moist Neck: Present normal inspection and full ROM Respiratory: Present crackles and able to speak in complete sentences; Absent respiratory distress or wheezes Cardiac: Present S1/S2, Tachycardia and radial pulses present GI: Present soft and distention; Absent tenderness or guarding Rectal (female): Present deferred (female): Present deferred Skin: Present intact; Absent cyanosis or jaundice Neuro: Present alert, awake and oriented x 3 Extremities: Present normal inspection; Absent clubbing or cyanosis Psychiatric: Present normal affect and cooperative Assessment and Plan *Assessment and plan (1) Acute and chronic respiratory failure: Status: Acute Qualifiers: Respiratory failure complication: hypercapnia Qualified Code(s): J96.22 - Acute and chronic respiratory failure with hypercapnia Category: Medical Code(s): J96.20 - Acute and chronic respiratory failure, unspecified whether with hypoxia or hypercapnia (2) Asthma exacerbation: Status: Acute Qualifiers: Asthma persistence: persistent Asthma severity: moderate Qualified Code(s): J45.41 - Moderate persistent asthma with (acute) exacerbation Category: Medical Code(s): J45.901 - Unspecified asthma with (acute) exacerbation (3) Chronic respiratory failure with hypercapnia: Status: Chronic Category: Medical Code(s): J96.12 - Chronic respiratory failure with hypercapnia (4) Obesity hypoventilation syndrome: Status: Chronic Category: Medical Code(s): E66.2 - Morbid (severe) obesity with alveolar hypoventilation (5) Tracheostomy dependent: Status: Acute Category: Medical Code(s): Z93.0 - Tracheostomy status Plan Ms. Badillo is a 47-year-old female history of sleep apnea, obesity hypoventilation syndrome chronic hypercarbic respiratory failure moderate persistent asthma
--- NOTE | 2023-01-03 14:25 | EXP.DC.SUM ---
General Admission date:: 01/01/23 Discharge date: 01/03/23 HPI HPI HPI: This is a morbidly obese 47-year-old female with a PMHx of hypoventilation syndrome chronic, respiratory failure requiring a trach, MDD, migraine, hypothyroidism with anxiety, diastolic heart failure with preserved EF, and current smoker who presents today with worsening shortness of breath. She stated that she has worsening peripheral edema that does not respond to home diuresis regimen. She stated she takes 100 mg of Lasix and has been on this dose for quite some time,. She also states she has a severe headache and body aches. No sudden component to this, no fevers or chills, no neurologic complaints. She states she has become so lethargic over the last few days that she is unable to get up and walk. She referred weight gain about 20 pd since last PCP office visit back on 12/07. patient admitted for further management. Hospital Course Hospital Course Hospital Course: The patient was diuresed with IV lasix. Swelling significantly decreased by the day of discharge. She had 8.6L urine output on 01/02 and 4.3L on day of discharge. She will discharge home to continue her torsemide 100mg daily and will need to f/u with her PCP in 1 week and Pulmonology in 1 month. On day of discharge she noted discomfort at left upper abdominal wall where she previously had a PEG. Her PEG was removed over one year ago but since then she reports having had discomfort at that area. On day of discharge she reported 2 days of worsening pain at this area; ultrasound revealed [id number] fluid collection but physical exam was not remarkable for swelling or erythema. She did not have any fevers and wbc count from her cbc was within normal limits. She was discharged with Augmentin and doxycycline and will follow up with Dr. Stockton in his clinic tomorrow. Exam Data for Last 24 hours Vital signs and Labs for Last 24 Hours: Temp Pulse Resp BP Pulse Ox O2 Del Method O2 Flow Rate 97.8 F 88 18 107/59 L 92 L Room Air 3 01/03/23 11:44 01/03/23 11:44 01/03/23 11:44 01/03/23 11:44 01/03/23 11:44 01/03/23 13:27 01/01/23 23:00 Laboratory Results - last 24 hr 01/02/23 17:45: Sodium 141, Potassium 4.1, Chloride 99, Carbon Dioxide 35 H, Anion Gap 11.1, BUN 16, Creatinine 0.90, Estimated Creat Clear 58, Estimated GFR 67, Est GFR ( Amer) 81, Glucose 93 D, Calcium 9.0 01/03/23 06:32: WBC 6.9 D, RBC 4.67, Hgb 12.2, Hct 40.2, MCV 86.0, MCH 26.0 L, MCHC 30.3 L, RDW 16.6, Plt Count 206, MPV 8.0, Neut % (Auto) 69.5, Lymph % (Auto) 23.0, Dickenson % (Auto) 6.1, Eos % (Auto) 1.1, Baso % (Auto) 0.3, Neut # (Auto) 4.8, Lymph # (Auto) 1.6, Dickenson # (Auto) 0.4, Eos # (Auto) 0.1, Baso # (Auto) 0.0, Sodium 138, Potassium 4.2, Chloride 99, Carbon Dioxide 34 H, Anion Gap 9.2, BUN 19 H, Creatinine 0.90, Estimated Creat Clear 58, Estimated GFR 67, Est GFR ( Amer) 81, Glucose 137 H D, Calcium 9.2, Magnesium 1.9, Total Bilirubin 0.2, AST 25, ALT 18, Alkaline Phosphatase 87, Total Protein 7.0, Albumin 3.7 D, Globulin 3.3 H, Albumin/Globulin Ratio 1.1 I & O for Last 24 hours: Intake & Output 12/31/22 01/01/23 01/02/23 01/03/23 23:59 23:59 23:59 23:59 Intake Total 1320 / 1500 780 / 780 Output Total 8600 / 8600 4300 / 4300 Balance -7280 / -7100 -3520 / -3520 Weight 174 kg 174 kg 174 kg Microbiology Reports for the Last 24 Hours: Microbiology 01/02/23 11:00 Sputum - Endotracheal Tube Aspirate Gram Stain - Final 01/02/23 11:00 Sputum - Endotracheal Tube Aspirate Sputum Culture - Preliminary Constitutional Constitutional: no acute distress *Routine HEENT Exam Head: Present normocephalic Eye: Present EOMI and PERRL ENT: Present mucous membranes moist *Routine Neck Exam Neck: Present supple; Absent lymphadenopathy *Routine Respiratory Exam Respiratory: Present CTA bilaterally; Absent prolonged expiratory phase *Routine Cardiovascular Exam Cardiovascular: Present RRR; Absent murmur *Rou
--- NOTE | 2023-01-03 14:46 | HMH.PHAINT1 ---
Pharmacy Intervention Comments: Discharge medications were discussed with patient - Amox/Clav (watch for diarrhea and GI upset) - Doxycycline (discussed sun sensitivity) Jorge Belle, PharmD student
--- NOTE | 2023-01-04 11:07 | CARE MANAGER ---
Called and spoke with patient regarding recent discharge. She stated that she is doing well and has started new medication prescribed at discharge. She was aware of scheduled f/u appts. No concerns or questions at time of call.
== END 2023-01-03 15:56 | disposition home or self-care (01) ==
LOC: ER 21:39 → 2ND 21:48
PROVIDERS: Nurse Practitioner Family; Admitting Provider Internal Medicine Adolescent Medicine; Emergency Provider Student in an Organized Health Care Education/Training Program; PCP Emergency Medicine; Visit Provider Internal Medicine Adolescent Medicine
DX: J96.20 Acute and chronic respiratory failure, unspecified whether with hypoxia or hypercapnia (principal); E66.2 Morbid (severe) obesity with alveolar hypoventilation; Z68.45 Body mass index [BMI] 70 or greater, adult; I50.9 Heart failure, unspecified; Z99.81 Dependence on supplemental oxygen; F32.A Depression, unspecified; F41.9 Anxiety disorder, unspecified; J96.12 Chronic respiratory failure with hypercapnia; I11.0 Hypertensive heart disease with heart failure; I50.30 Unspecified diastolic (congestive) heart failure; F41.1 Generalized anxiety disorder; E03.9 Hypothyroidism, unspecified; E11.40 Type 2 diabetes mellitus with diabetic neuropathy, unspecified; Z93.0 Tracheostomy status; J44.9 Chronic obstructive pulmonary disease, unspecified; F17.200 Nicotine dependence, unspecified, uncomplicated
CPT/HCPCS: 36415; 71045; 76705; 80048; 80053; 80061; 80305; 81001; 82550; 82803; 83735; 83880; 84443; 84484; 85025; 87070; 87077; 87186; 87205; 93005; 93306; 94640; 97163; 97165; 99285; G0378; J0131; J1110; J1956

== ENCOUNTER → 2023-01-20 23:54 | Outpatient (CLI) | payer MEDICAID, SELFPAY ==
[2023-01-20 19:19] LABS: Erythrocyte Sedimentation Rate 27 mm/hr (0-20)
[2023-01-20 19:22] LABS: Basophils % 0.3 % (0.1-2.0); Eosinophils # 0.1 K/mm3 (0.0-0.4); Eosinophils % 0.8 % (0.1-12.0); Hematocrit 38.7 % (37.0-47.0); Hemoglobin 12.4 g/dL (12.2-16.2); Lymphocytes # 1.5 K/mm3 (0.7-4.5); Lymphocytes % 18.4 % (10-50); Mean Corpuscular Hemoglobin 27.6 pg (27.0-31.2); Mean Corpuscular Volume 86.1 fl (81-99); Mean Platelet Volume 9.4 fl (7.4-10.4); Monocytes # 0.4 K/mm3 (0.1-1.0); Monocytes % 5.2 % (1.7-9.3); Neutrophils # 6.2 K/mm3 (1.8-7.8); Neutrophils % 75.4 % (37.0-80.0); Platelet Count 221 K/mm3 (142-424); Red Cell Distribution Width 16.5 % (11.5-17.5); White Blood Count 8.3 K/mm3 (4.8-10.8)
[2023-01-20 19:36] LABS: Alanine Aminotransferase 21 U/L (12-78); Albumin Level 4.2 g/dl (3.5-5.0); Albumin/Globulin Ratio 1.2 (1.1-1.8); Alkaline Phosphatase 115 U/L (38-126); Anion Gap 13.3 mEq/L (5-15); Aspartate Amino Transferase 27 U/L (14-36); Bilirubin,Total 0.2 mg/dl (0.2-1.3); Blood Urea Nitrogen 17 mg/dl (7-17); Calcium 8.8 mg/dl (8.4-10.2); Carbon Dioxide 26 mmol/L (22.0-30.0); Chloride 102 mmol/L (98-107); Estimated Glomerular Filt Rate 76 ml/min (>60); GFR (African American) 92 ML/MIN (>60); Globulin 3.4 g/dL (1.3-3.2); Glucose 127 mg/dl (74-100); Potassium 4.3 mmoL/L (3.5-5.1); Sodium 137 mmol/L (136-145); Total Protein,Serum 7.6 g/dl (6.3-8.2)
[2023-01-20 19:46] LABS: C-Reactive Protein 90.3 mg/L (0-4)
[2023-01-20 21:19] LABS: Hemoglobin A1C 5.5 % (4.0-6.0)
[2023-01-24 09:30] LABS: RA Latex Turbid. <10.0 IU/mL (<14.0)
[2023-01-24 13:32] LABS: Anti-Centromere B Antibodies <0.2 AI (0.0-0.9); Anti-Cyclic Citrullinated Pept 3 units (0-19); Anti-DNA (DS) Ab Qn <1 IU/mL (0-9); Anti-Jo-1 <0.2 AI (0.0-0.9); Anti-Smith Antibody <0.2 AI (0.0-0.9); Antichromatin Antibodies 0.7 AI (0.0-0.9); Antiscleroderma-70 Antibodies <0.2 AI (0.0-0.9); RNP Antibodies 0.8 AI (0.0-0.9); Sjogren's Anti-SS-A <0.2 AI (0.0-0.9); Sjogren's Anti-SS-B <0.2 AI (0.0-0.9)
== END ==
PROVIDERS: PCP Emergency Medicine; Visit Provider Emergency Medicine
DX: M79.671 Pain in right foot (principal); M79.672 Pain in left foot; R60.9 Edema, unspecified; E66.01 Morbid (severe) obesity due to excess calories; Z68.45 Body mass index [BMI] 70 or greater, adult
CPT/HCPCS: 80053; 83036; 85025; 85651; 86140; 86200; 86225; 86235; 86431

== ENCOUNTER 2023-03-10 01:19 | Observation (INO) | payer MEDICAID, SELFPAY ==
[2023-03-10] VITALS (13 sets, daily range): BP systolic 104–158; BP diastolic 54–86; PULSE 89–110; RESP 15–24; TEMP 36.6–38.9; O2SAT 92–98; BMI 68.0; BMI 69.1; BMI 69.0
--- NOTE | 2023-03-10 01:38 | CT_ITS ---
PROCEDURE INFORMATION: Exam: CT Abdomen And Pelvis With Contrast Exam date and time: 03/10/2023 2:18 AM Age: 48 years old Clinical indication: Abdominal tenderness; Additional info: Severe abd pain, cellulitis, poss nec fasc TECHNIQUE: Imaging protocol: Computed tomography of the abdomen and pelvis with contrast. 3D rendering (Not supervised by radiologist): MIP and/or 3D reconstructed images were created by the technologist. Radiation optimization: All CT scans at this facility use at least one of these dose optimization techniques: automated exposure control; mA and/or kV adjustment per patient size (includes targeted exams where dose is matched to clinical indication); or iterative reconstruction. Contrast material: ISOVUE; Contrast volume: 70 ml; Contrast route: IV; REPORTING DATA: Count of CT and Cardiac NM exams in prior 12 months: This patient has received 0 known CTs and 0 known cardiac nuclear medicine studies in the 12 months prior to the current study. COMPARISON: CT ANGIO CHEST PE PROTOCOL 02/13/2022 10:41 AM FINDINGS: Liver: Homogeneous low attenuation throughout the liver is compatible with fatty infiltration. Liver measures 22.4 cm in length. Gallbladder and bile ducts: Prior cholecystectomy. No biliary tree dilation or high-density retained stones appreciated. Pancreas: Normal. No ductal dilation. Spleen: Spleen measures 14.8 cm in length. Adrenal glands: Normal configuration. Kidneys and ureters: No convincing renal abnormality. No evidence of renal obstruction. Stomach and bowel: Postprandial stomach. Normal caliber small bowel. Distal colonic diverticulosis without evidence of acute diverticulitis. Appendix: Normal appendix is confirmed. Intraperitoneal space: No free air. No significant fluid collection. Vasculature: Normal caliber arterial structures. Lymph nodes: No enlarged lymph nodes. Urinary bladder: Unremarkable as visualized. Reproductive: Prior hysterectomy. No evidence of vaginal cuff or adnexal mass. Bones/joints: No fracture or destructive lesion. Soft tissues: There is cutaneous thickening of the visualized portions of the abdominal wall, but most of the abdominal wall is at of field of view because of patient habitus. There is prominent cutaneous thickening in the inferior aspect of the abdominal pannus. No abnormal soft tissue gas is evident. IMPRESSION: 1. Patient habitus creates technical limitations to assessment. Large portions of the abdominal wall are outside of the field of view. The inferior abdominal wall demonstrates severe cutaneous thickening but no soft tissue gas or abscess. Findings likely reflect cellulitis/panniculitis. 2. The kidneys appear somewhat heterogeneous but this could be artifact from habitus. Correlate with urinalysis to exclude pyelonephritis. There is no evidence of renal obstruction. 3. Hepatosplenomegaly.
--- NOTE | 2023-03-10 01:38 | CT_ITS ---
PROCEDURE INFORMATION: Exam: CTA Chest With Contrast Exam date and time: 03/10/2023 2:18 AM Age: 48 years old Clinical indication: Cough and shortness of breath; Additional info: SOB, cough, cp, poss pe TECHNIQUE: Imaging protocol: Computed tomographic angiography of the chest with contrast. Exam focused on the arteries. 3D rendering (Not supervised by radiologist): MIP and/or 3D reconstructed images were created by the technologist. Radiation optimization: All CT scans at this facility use at least one of these dose optimization techniques: automated exposure control; mA and/or kV adjustment per patient size (includes targeted exams where dose is matched to clinical indication); or iterative reconstruction. Contrast material: ISOVUE 370; Contrast volume: 70 ml; Contrast route: INTRAVENOUS (IV); REPORTING DATA: Count of CT and Cardiac NM exams in prior 12 months: This patient has received 0 known CTs and 0 known cardiac nuclear medicine studies in the 12 months prior to the current study. COMPARISON: CT ANGIO CHEST PE PROTOCOL 02/13/2022 10:41 AM FINDINGS: Tubes, catheters and devices: Endotracheal tube is in satisfactory position. Pulmonary arteries: Normal. No pulmonary emboli. Aorta: Normal caliber thoracic aorta. Thyroid: Homogeneous thyroid. Lungs: Minimal areas ground-glass attenuation are noted in the right middle and lower lobes. Pleural spaces: Unremarkable. No pneumothorax. No pleural effusion. Heart: Unremarkable. No cardiomegaly. No pericardial effusion. Lymph nodes: Unremarkable. No enlarged lymph nodes. Diaphragm: Tiny sliding hiatal hernia. Bones/joints: Unremarkable. No acute fracture. Soft tissues: Unremarkable. IMPRESSION: 1. No findings of acute pulmonary embolism. 2. Minimal right middle and lower lobe ground-glass foci may reflect atypical pneumonitis. Lungs are otherwise clear. New line endotracheal tube is in satisfactory position.
--- NOTE | 2023-03-10 01:38 | PC.NURSE ---
provided patient with 3 warm blankets her own personal blanket and her call light is at bedside
[2023-03-10 01:53] LABS: Basophils % 0.2 % (0.1-2.0); Eosinophils % 0.3 % (0.1-12.0); Hematocrit 41.7 % (37.0-47.0); Hemoglobin 12.7 g/dL (12.2-16.2); Lymphocytes # 1.2 K/mm3 (0.7-4.5); Lymphocytes % 16.3 % (10-50); Mean Corpuscular HGB Conc 30.4 g/dL (31.8-35.4); Mean Corpuscular Hemoglobin 26.6 pg (27.0-31.2); Mean Corpuscular Volume 87.5 fl (81-99); Mean Platelet Volume 8.3 fl (7.4-10.4); Monocytes # 0.3 K/mm3 (0.1-1.0); Monocytes % 4.7 % (1.7-9.3); Neutrophils # 5.7 K/mm3 (1.8-7.8); Neutrophils % 78.5 % (37.0-80.0); Platelet Count 210 K/mm3 (142-424); Red Blood Count 4.76 M/mm3 (4.20-5.40); Red Cell Distribution Width 15.9 % (11.5-17.5); White Blood Count 7.2 K/mm3 (4.8-10.8)
--- NOTE | 2023-03-10 01:53 | HMH.EDGENADL ---
Discharge Plan Disposition Patient Disposition: Admitted Clinical Impressions Clinical Impression: Cellulitis Sepsis Qualifiers: Sepsis type: sepsis due to unspecified organism Sepsis acute organ dysfunction status: unspecified Qualified Code(s): A41.9 - Sepsis, unspecified organism Discharge ED Provider: Leopoldo Titus General Adult HPI General Chief complaint: Weakness Stated complaint: ?allergic reaction, blisters over body Time Seen by Provider: 03/10/23 01:20 Mode of Arrival: Wheelchair Source of Information: Patient Limitations: No Limitations Description of Symptoms (Recalled from ER Triage Doc. by RN): pt c/o red weeping abd that started day before yesterday, and c/o of increasing weakness. History of Present Illness HPI narrative: 48-year-old female, extensive past medical history including chronic respiratory failure with tracheostomy, morbid obesity, insulin-dependent diabetes, anxiety depression, heart failure presents with multiple complaints. She reports that she has developed severe pain and redness over her abdomen over the last couple of days. She is febrile. She has extensive circular skin lesions over her entire body, ulcerative, opaque base, various stages of healing. She reports that a lot of these are scratches from her cats. She primarily presents with a severe abdominal pain. She reports that she is severely anxious, takes diazepam and Lortabs at home. She also reports worsening shortness of breath and productive cough with foul-smelling sputum. Related Data Home Medications Medication Instructions Recorded Confirmed blood sugar diagnostic ([facility] 01/01/23 03/10/23 Verio test strips) budesonide 0.25 mg/2 mL suspension 0.25 mg inhalation BID Copd 01/01/23 03/10/23 for nebulization formoterol fumarate 20 mcg/2 mL 20 mcg inhalation BID Copd 01/01/23 03/10/23 solution for nebulization lamotrigine 100 mg tablet 100 mg PO DAILY mood 01/01/23 03/10/23 lancets 33 gauge (Oneuch Delica 01/01/23 03/10/23 Plus Lancet) lisinopril 10 mg tablet 10 mg PO DAILY High Blood Pressure 01/01/23 03/10/23 torsemide 100 mg tablet 50 mg PO DAILY Fluid 01/01/23 03/10/23 trazodone 100 mg tablet 100 mg PO HS Depression 01/01/23 03/10/23 cholecalciferol (vitamin D3) 125 5,000 unit PO BID Supplement 01/02/23 03/10/23 mcg (5,000 unit) capsule cyclobenzaprine 5 mg tablet 5 mg PO BID Muscle relaxer 01/02/23 03/10/23 diltiazem HCl 120 mg 120 mg PO DAILY heart disease 01/02/23 03/10/23 capsule,extended release 24 hr, controlled (DILT-XR) Previous Rx's Medication Instructions Recorded omeprazole 40 mg capsule,delayed 40 mg PO DAILY acid reflux #90 caps 06/22/22 release duloxetine 30 mg capsule,delayed 30 mg PO .COMPLEX depression #60 01/18/23 release caps ziprasidone HCl 20 mg capsule 20 mg PO BID #60 caps 01/18/23 (Geodon) promethazine 25 mg tablet See Rx Instructions .Route 01/24/23 .COMPLEX #30 tabs sumatriptan succinate 100 mg tablet See Rx Instructions .Route 01/24/23 .COMPLEX #9 tabs spironolactone 50 mg tablet 50 mg PO DAILY #30 tabs 01/25/23 (Aldactone) budesonide 0.5 mg/2 mL suspension 0.5 mg (2 mL) inhalation Q12H #180 02/09/23 for nebulization mL formoterol fumarate 20 mcg/2 mL 2 ml inhalation BID 90 days #180 mL 02/09/23 solution for nebulization (Perforomist) ipratropium 0.5 mg-albuterol 3 mg 3 ml inhalation QID PRN shortness 02/09/23 (2.5 mg base)/3 mL nebulization of breath or wheezing 90 days #270 soln mL fluticasone propionate 50 1 spray intranasal DAILY #16 grams 02/17/23 mcg/actuation nasal spray,suspension (Flonase Allergy Relief) semaglutide (weight loss) 0.25 0.25 mg (0.5 mL) SQ WEEKLY #2 mL 02/17/23 mg/0.5 mL subcutaneous pen injector (Wegovy) semaglutide (weight loss) 0.5 0.5 mg (0.5 mL) SQ WEEKLY #2 mL 02/17/23 mg/0.5 mL subcutaneous pen injector (Wegovy) albuterol sulfate 90 mcg/actuation 1 puff inhalation Q6HP PRN 02/20/23 aerosol inhale
[2023-03-10 01:54] LABS: Acetone, Serum (Rapid) None Detected (None Detect)
[2023-03-10 01:56] LABS: HCG Qualitative, Serum Negative (Negative)
[2023-03-10 01:58] LABS: Alanine Aminotransferase 17 U/L (12-78); Albumin Level 3.8 g/dl (3.5-5.0); Albumin/Globulin Ratio 0.9 (1.1-1.8); Alkaline Phosphatase 78 U/L (38-126); Aspartate Amino Transferase 19 U/L (14-36); Blood Urea Nitrogen 13 mg/dl (7-17); Calcium 8.7 mg/dl (8.4-10.2); Carbon Dioxide 33 mmol/L (22.0-30.0); Chloride 101 mmol/L (98-107); Creatinine Clearance Estimated 57 mL/min (50-200); Estimated Glomerular Filt Rate 67 ml/min (>60); GFR (African American) 81 ML/MIN (>60); Globulin 4.2 g/dL (1.3-3.2); Glucose 113 mg/dl (74-100); Lipase 26 U/L (23-300); Magnesium 1.9 mg/dl (1.6-2.3); Sodium 141 mmol/L (136-145)
[2023-03-10 02:01] LABS: Lactic Acid 1.2 mmol/L (0.7-2.1)
[2023-03-10 02:02] LABS: Bilirubin,Total < 0.1 mg/dl (0.2-1.3)
[2023-03-10 02:07] LABS: NT Pro Brain Natriuretic Pep. 320 pg/mL (0-125)
--- NOTE | 2023-03-10 02:50 | PC.NURSE ---
in room talking with patient at this time
--- NOTE | 2023-03-10 03:15 | PC.NURSE ---
order to dc clingabe received.
--- NOTE | 2023-03-10 03:23 | PC.NURSE ---
call placed to [facility], spoke with letty alexandre. orders re-verified.
--- NOTE | 2023-03-10 03:25 | PC.NURSE ---
on phone with bill wren re admit
--- NOTE | 2023-03-10 03:52 | PC.NURSE ---
pt to floor via stretcher [id number]
--- NOTE | 2023-03-10 04:46 | EXP.HP ---
History of Present Illness *Admission Date: 03/10/23 *Reason for visit:: cellulitis *History of present illness: 48 year old female presented to [facility] ED for c/o skin infection located on abdomen. It is associated with fever, pain, and erythema. PMHX of respiratory failure with trach, obesity, diabetic, anxiety, and chf. The pt's ED workup revealed no leukocytosis, electrolyte abnormalities, or LEONEL. Her CT of her abdomen reveals no gas, possible pyelonephritis, and hepatosplenomeglay. She was started on vancomycin, zosyn, and given acyclovir for possible shingles. Her HR is above 90 and she presented with a t max of 102.1. She meets sepsis criteria with her known cellulitis. The ED physician consulted the hospitalist team for further medical management. She arrives to the medical floor in no acute distress. She appears to have cellulitis on the lower portion of her abdomen. The erythema has been outlined with a marker. She has scabs to her face, legs, and buttocks. She states that she pulled a tick off of her face and buttock last week. There is no bulls-eye rash. The scabs are evenly disturbed throughout her face and legs. Highly suspicious for bed bugs. She reports that she lives alone in a trailer and has not been around any people with bed bugs or scabies. She will be decontaminated and placed in contact precautions. [facility] Disclaimer: The information contained in this section may have been updated after the patient was seen, as this information can be updated by other users. Medical History (Updated 03/10/23 @ 05:06 by RENITA Reinoso) Abnormal stress test Acute and chronic respiratory failure Acute and chronic respiratory failure Acute and chronic respiratory failure with hypercapnia Acute on chronic diastolic heart failure Acute on chronic diastolic heart failure Angina, class III Anxiety Asthma Asthma Chest pain Chest pain Chronic respiratory failure with hypercapnia Congestive heart failure COPD (chronic obstructive pulmonary disease) COVID-19 Depression Diabetes mellitus, type 2 Diastolic congestive heart failure Diastolic dysfunction Dizziness Dyspnea Edema Elevated d-dimer Generalized anxiety disorder History of asthma History of ectopic History of hyperkalemia History of sleep apnea History of smoking 30 or more pack years HLD (hyperlipidemia) HTN (hypertension) Hypothyroidism (~11/21/17) Insomnia Neuropathy Obesity hypoventilation syndrome PAC (premature atrial contraction) Paranoid schizophrenia Pneumonia Pneumonia Recurrent major depression resistant to treatment Respiratory failure with hypoxia and hypercapnia Right lower lobe pneumonia Severe sepsis Sinus tachycardia Sleep apnea SOB (shortness of breath) SOB (shortness of breath) on exertion Tobacco abuse Tracheostomy care Tracheostomy dependent Tracheostomy in place Uses bilevel positive airway pressure (BPAP) ventilation at home Surgical History History of colonoscopy History of hysterectomy History of left knee surgery Family History Other No significant family history Social History (Updated 03/10/23 @ 04:32 by Alessia Calderon RN) Smoking Status: Current every day smoker tobacco type: cigarettes packs per day: 1 smoking status stop date: 02/2022 alcohol intake: former substance use type: marijuana current occupational status: disabled Travel in the last 8 weeks: None household members: family housing: apartment number of children: 0 current occupational exposures/hazards: No caffeine: Yes Review of Systems *Cardiovascular Cardiovascular: Reports system reviewed and no additional complaints, except as documented *Respiratory Respiratory: Reports system reviewed and no additional complaints, except as documented and Reports excessive phlegm production *Gastrointestinal Gastroint
--- NOTE | 2023-03-10 05:14 | EXP.SEPSISRE ---
[facility] Tissue Perfusion Eval Sepsis Re-Evaluation Performed: Yes Date Performed: 03/10/23 Time Performed: 05:14
[2023-03-10 06:04] LABS: Basophils % 0.2 % (0.1-2.0); Eosinophils % 0.2 % (0.1-12.0); Hematocrit 36.5 % (37.0-47.0); Lymphocytes # 1.4 K/mm3 (0.7-4.5); Lymphocytes % 19.8 % (10-50); Mean Corpuscular HGB Conc 30.9 g/dL (31.8-35.4); Mean Corpuscular Hemoglobin 26.7 pg (27.0-31.2); Mean Corpuscular Volume 86.5 fl (81-99); Mean Platelet Volume 8.3 fl (7.4-10.4); Monocytes # 0.4 K/mm3 (0.1-1.0); Monocytes % 6.2 % (1.7-9.3); Neutrophils # 5.1 K/mm3 (1.8-7.8); Neutrophils % 73.6 % (37.0-80.0); Platelet Count 186 K/mm3 (142-424); Red Blood Count 4.23 M/mm3 (4.20-5.40); Red Cell Distribution Width 15.8 % (11.5-17.5)
[2023-03-10 06:07] LABS: Chloride 103 mmol/L (98-107); Potassium 3.9 mmoL/L (3.5-5.1); Sodium 138 mmol/L (136-145)
[2023-03-10 06:10] LABS: Blood Urea Nitrogen 11 mg/dl (7-17); Creatinine Clearance Estimated 64 mL/min (50-200); Estimated Glomerular Filt Rate 76 ml/min (>60); GFR (African American) 92 ML/MIN (>60)
[2023-03-10 06:11] LABS: Anion Gap 11.9 mEq/L (5-15); Calcium 7.7 mg/dl (8.4-10.2); Carbon Dioxide 27 mmol/L (22.0-30.0); Glucose 98 mg/dl (74-100)
[2023-03-10 06:12] LABS: Hemoglobin 11.3 g/dL (12.2-16.2)
[2023-03-10 06:28] LABS: POC Glucose,Bedside 90 (70-110)
--- NOTE | 2023-03-10 08:11 | EXP.PHA.CONS ---
Pharmacy Consult Date: 03/10/23 Time: 08:11 Referring provider: DR. SAWANT Reason for Consult:: VANCOMYCIN DOSING Allergies Allergy/AdvReac Type Severity Reaction Status Date / Time No Known Allergies Allergy Verified 02/17/23 15:21 Home Medications Medication Instructions Recorded Confirmed Type omeprazole 40 mg capsule,delayed 40 mg PO DAILY acid reflux #90 caps 06/22/22 03/10/23 Rx release blood sugar diagnostic ([facility] 01/01/23 03/10/23 History Verio test strips) budesonide 0.25 mg/2 mL suspension 0.25 mg inhalation BID Copd 01/01/23 03/10/23 History for nebulization formoterol fumarate 20 mcg/2 mL 20 mcg inhalation BID Copd 01/01/23 03/10/23 History solution for nebulization lamotrigine 100 mg tablet 100 mg PO DAILY mood 01/01/23 03/10/23 History lancets 33 gauge ([facility] Delica 01/01/23 03/10/23 History Plus Lancet) lisinopril 10 mg tablet 10 mg PO DAILY High Blood Pressure 01/01/23 03/10/23 History torsemide 100 mg tablet 50 mg PO DAILY Fluid 01/01/23 03/10/23 History trazodone 100 mg tablet 100 mg PO HS Depression 01/01/23 03/10/23 History cyclobenzaprine 5 mg tablet 5 mg PO BID Muscle relaxer 01/02/23 03/10/23 History diltiazem HCl 120 mg 120 mg PO DAILY heart disease 01/02/23 03/10/23 History capsule,extended release 24 hr, controlled (DILT-XR) duloxetine 30 mg capsule,delayed 30 mg PO .COMPLEX depression #60 01/18/23 03/10/23 Rx release caps promethazine 25 mg tablet See Rx Instructions .Route 01/24/23 03/10/23 Rx .COMPLEX #30 tabs sumatriptan succinate 100 mg tablet See Rx Instructions .Route 01/24/23 03/10/23 Rx .COMPLEX #9 tabs spironolactone 50 mg tablet 50 mg PO DAILY #30 tabs 01/25/23 03/10/23 Rx (Aldactone) budesonide 0.5 mg/2 mL suspension 0.5 mg (2 mL) inhalation Q12H #180 02/09/23 03/10/23 Rx for nebulization mL ipratropium 0.5 mg-albuterol 3 mg 3 ml inhalation QID PRN shortness 02/09/23 03/10/23 Rx (2.5 mg base)/3 mL nebulization of breath or wheezing 90 days #270 soln mL fluticasone propionate 50 1 spray intranasal DAILY #16 grams 02/17/23 03/10/23 Rx mcg/actuation nasal spray,suspension (Flonase Allergy Relief) albuterol sulfate 90 mcg/actuation 1 puff inhalation Q6HP PRN 02/20/23 03/10/23 Rx aerosol inhaler (ProAir HFA) Shortness Of Breath #8.5 grams diazepam 10 mg tablet 10 mg PO BID Anxiety #60 tabs 02/20/23 03/10/23 Rx gabapentin 800 mg tablet 800 mg PO TID Neuropathy #90 tabs 02/20/23 03/10/23 Rx hydrocodone 10 mg-acetaminophen 1 tab PO TID #90 tabs 02/20/23 03/10/23 Rx 325 mg tablet New Prescriptions to Start Prescriptions: Height: 1.55 m Weight: 166.1 kg Laboratory Results:: Laboratory Results - last 24 hr 03/10/23 01:34: WBC 7.2, RBC 4.76, Hgb 12.7, Hct 41.7, MCV 87.5, MCH 26.6 L, MCHC 30.4 L, RDW 15.9, Plt Count 210, MPV 8.3, Neut % (Auto) 78.5, Lymph % (Auto) 16.3, [place] % (Auto) 4.7, Eos % (Auto) 0.3, Baso % (Auto) 0.2, Neut # (Auto) 5.7, Lymph # (Auto) 1.2, [place] # (Auto) 0.3, Eos # (Auto) 0.0, Baso # (Auto) 0.0, Sodium 141, Potassium 4.0, Chloride 101, Carbon Dioxide 33 H, Anion Gap 11.0, BUN 13, Creatinine 0.90, Estimated Creat Clear 57, Estimated GFR 67, Est GFR ( Amer) 81, Glucose 113 H, Lactate 1.2, Calcium 8.7, Magnesium 1.9, Total Bilirubin < 0.1 L, AST 19, ALT 17, Alkaline Phosphatase 78, NT-Pro-B Natriuret Pep 320 H, Total Protein 8.0, Albumin 3.8, Globulin 4.2 H, Albumin/Globulin Ratio 0.9 L, Lipase 26, Serum HCG, Qual Negative, Acetone Level None detected 03/10/23 05:50: WBC 7.0, RBC 4.23, Hgb 11.3 L D, Hct 36.5 L, MCV 86.5, MCH 26.7 L, MCHC 30.9 L, RDW 15.8, Plt Count 186, MPV 8.3, Neut % (Auto) 73.6, Lymph % (Auto) 19.8, [place] % (Auto) 6.2, Eos % (Auto) 0.2, Baso % (Auto) 0.2, Neut # (Auto) 5.1, Lymph # (Auto) 1.4, [place] # (Auto) 0.4, Eos # (Auto) 0.0, Baso # (Auto) 0.0, Sodium 138, Potassium 3.9, Chloride 103, Carbon Dioxide 27, Anion Gap 11.9, BUN 11, Creatinine 0.80, Estimated Creat Clear 64, Estimated
[2023-03-10 16:14] LABS: Microscopic, Urine URINE MICROSCOPIC (MICROSCOPIC)
[2023-03-10 16:46] LABS: Appearance,Urine CLEAR (Clear); Bilirubin,Urine Negative (Negative); Blood, Urine Negative (Negative); Color,Urine YELLOW (Yellow); Glucose,Urine (UA) Negative (Negative); Ketones,Urine Negative (Negative); Leukocyte Esterase,Urine Negative (Negative); Nitrate,Urine Negative (Negative); PH,Urine 5.5 (5.0-8.5); Protein,Urine Negative (Negative); Urobilinogen,Urine 0.2 EU/dl (0.2)
[2023-03-10 16:59] LABS: Barbiturates Screen,Urine Negative ng/ml (<200); Benzodiazepines Screen,Urine Positive ng/ml (<200)
[2023-03-10 17:00] LABS: Cannabinoid Screen,Urine Negative ng/ml (<50); Cocaine Screen,Urine Negative ng/ml (<300)
[2023-03-10 17:01] LABS: Methadone Screen,Urine Negative ng/ml (<300)
[2023-03-10 17:02] LABS: Opiate Screen,Urine Positive ng/ml (<300); Phencyclidine Screen,Urine Negative ng/ml (<25)
[2023-03-10 17:08] LABS: Amphetamine/Metha Screen,Urine Positive ng/ml (<1000)
[2023-03-10 17:39] LABS: POC Glucose,Bedside 112 (70-110)
[2023-03-10 17:52] LABS: POC Glucose,Bedside 116 (70-110)
[2023-03-10 20:14] LABS: POC Glucose,Bedside 130 (70-110)
--- NOTE | 2023-03-10 21:16 | PC.NURSE ---
AT 2048 PATIENT MEDICATED WITH SCHEDULED MEDS INCLUDING NEURONTIN 800MG, NORCO 10. RECEIVED MORPHINE4 MG IV AT 1900. IMEDIATELY AFTER HAVING HER NIGHT MEDS PATIENT SAKED WHEN SHE COULD GET HER MORPHIN AGAIN. INSTRUCTED HER IT WOULD BE AT 2300 AT EARLIEST IT IS ORDERED Q 4 HRS. PATIENT THEN REQUESTED HER VALIUM 10 MGS AND RECEIVED IT AT 2053.
[2023-03-11] VITALS (11 sets, daily range): BP systolic 98–113; BP diastolic 45–78; PULSE 70–98; RESP 18–24; TEMP 36.4–37.3; O2SAT 90–97; BMI 69.0
[2023-03-11 06:30] LABS: POC Glucose,Bedside 119 (70-110)
[2023-03-11 07:34] LABS: Basophils % 0.3 % (0.1-2.0); Eosinophils # 0.1 K/mm3 (0.0-0.4); Hematocrit 38.4 % (37.0-47.0); Hemoglobin 11.5 g/dL (12.2-16.2); Lymphocytes # 1.2 K/mm3 (0.7-4.5); Lymphocytes % 20.6 % (10-50); Mean Corpuscular Hemoglobin 26.1 pg (27.0-31.2); Mean Corpuscular Volume 87.1 fl (81-99); Mean Platelet Volume 8.2 fl (7.4-10.4); Monocytes # 0.3 K/mm3 (0.1-1.0); Monocytes % 4.7 % (1.7-9.3); Neutrophils # 4.4 K/mm3 (1.8-7.8); Neutrophils % 73.4 % (37.0-80.0); Platelet Count 213 K/mm3 (142-424); Red Cell Distribution Width 15.8 % (11.5-17.5); White Blood Count 5.9 K/mm3 (4.8-10.8)
[2023-03-11 07:39] LABS: Chloride 99 mmol/L (98-107); Sodium 138 mmol/L (136-145)
[2023-03-11 07:40] LABS: Potassium 4.3 mmoL/L (3.5-5.1)
[2023-03-11 07:42] LABS: Alanine Aminotransferase 16 U/L (12-78); Alkaline Phosphatase 70 U/L (38-126); Anion Gap 10.3 mEq/L (5-15); Aspartate Amino Transferase 20 U/L (14-36); Blood Urea Nitrogen 14 mg/dl (7-17); Carbon Dioxide 33 mmol/L (22.0-30.0); Creatinine Clearance Estimated 57 mL/min (50-200); Estimated Glomerular Filt Rate 67 ml/min (>60); GFR (African American) 81 ML/MIN (>60)
[2023-03-11 07:43] LABS: Albumin Level 3.2 g/dl (3.5-5.0); Albumin/Globulin Ratio 0.9 (1.1-1.8); Calcium 8.2 mg/dl (8.4-10.2); Globulin 3.4 g/dL (1.3-3.2); Glucose 116 mg/dl (74-100); Magnesium 1.7 mg/dl (1.6-2.3); Total Protein,Serum 6.6 g/dl (6.3-8.2)
[2023-03-11 07:47] LABS: Bilirubin,Total < 0.1 mg/dl (0.2-1.3)
[2023-03-11 08:05] LABS: Erythrocyte Sedimentation Rate 49 mm/hr (0-20)
--- NOTE | 2023-03-11 11:00 | EXP.ACUTE.PN ---
Subjective *Date: 03/11/23 *Time: 11:00 Interval history: Used her home BiPAP overnight with her trach. Pain improving with cellulitis, receding from leading edge. Still extensive on her abdomen. White cell count remains normal at 5.9. Afebrile overnight. ESR elevated. Continues to require IV antibiotics. Tolerating p.o. intake. Voiding independently. Stable on room air during the day Medical Exam Vital signs and Labs for Last 24 Hours: Vital Signs Temp Pulse Pulse Resp BP Pulse Ox O2 Del Method 03/11/23 08:00 Trach Collar/Tube 03/11/23 07:08 99.2 F 94 H 18 112/62 93 L Room Air 03/11/23 06:27 Trach Collar/Tube, CPAP 03/11/23 06:19 98 H 03/11/23 06:19 92 H 03/11/23 05:00 CPAP 03/11/23 04:00 98.8 F 94 H 18 106/78 L 90 L CPAP 03/11/23 02:58 Trach Collar/Tube, CPAP 03/11/23 01:00 CPAP 03/11/23 00:00 97.5 F L 70 18 113/75 Room Air 03/11/23 00:25 95 H 03/11/23 00:25 96 H 03/10/23 22:55 CPAP 03/10/23 21:00 CPAP 03/10/23 20:00 98.8 F 97 H 22 120/76 96 Room Air 03/10/23 19:43 97 Trach Collar/Tube 03/10/23 18:18 Room Air 03/10/23 17:00 Room Air 03/10/23 17:58 90 03/10/23 17:58 90 03/10/23 16:00 97.8 F 89 18 104/54 L 97 Room Air 03/10/23 13:36 Room Air 03/10/23 13:00 Room Air Intake and Output 03/10/23 03/11/23 03/11/23 23:59 07:59 15:59 Intake Total 600 / 1860 1550 / 1550 Output Total 0 / 0 700 / 700 0 / 700 Balance 600 / 1860 850 / 850 0 / 850 Intake: Intake, Oral Amount 600 / 1860 1200 / 1200 Intake, Total IV Amount 350 / 350 Piperacillin/Tazo 4.5 gm In 0.9 100 / 100 % Sodium Chloride 100 ml @ 200 mls/hr IV Q8H [facility] Rx#:[id number] Vancomycin HCl 2,250 mg In 0.9 250 / 250 % Sodium Chloride 250 ml @ 125 mls/hr IV Q12H [facility] Rx#:[id number] Output: Output, Urine Amount 0 / 0 700 / 700 0 / 700 Other: Number of Voids 0 Number of Unmeasured Voids 0 0 Weight 166 kg Patient Weight 03/11/23 23:59 Weight 166 kg Laboratory Results - last 24 hr 03/10/23 11:40: POC Glucose 116 H 03/10/23 15:58: Urine Color Yellow, Urine Appearance Clear, Urine pH 5.5, Ur Specific [place] 1.020, Urine Protein Negative, Urine Glucose (UA) Negative, Urine Ketones Negative, Urine Blood Negative, Urine Nitrate Negative, Urine Bilirubin Negative, Urine Urobilinogen 0.2, Ur Leukocyte Esterase Negative, Urine RBC None, Urine WBC None, Ur Squamous Epith Cells None, Urine Bacteria None, Urine Opiates Screen Positive H, Urine Methadone Screen Negative, Ur Barbituates Screen Negative, Ur Phencyclidine Scrn Negative, Ur Amphetamines Screen Positive H, U Benzodiazepines Scrn Positive H, Urine Cocaine Screen Negative, U Marijuana (THC) Screen Negative 03/10/23 17:31: POC Glucose 112 H 03/10/23 20:03: POC Glucose 130 H 03/11/23 06:23: POC Glucose 119 H 03/11/23 06:26: WBC 5.9, RBC 4.40, Hgb 11.5 L, Hct 38.4, MCV 87.1, MCH 26.1 L, MCHC 30.0 L, RDW 15.8, Plt Count 213, MPV 8.2, Neut % (Auto) 73.4, Lymph % (Auto) 20.6, [place] % (Auto) 4.7, Eos % (Auto) 1.0, Baso % (Auto) 0.3, Neut # (Auto) 4.4, Lymph # (Auto) 1.2, [place] # (Auto) 0.3, Eos # (Auto) 0.1, Baso # (Auto) 0.0, ESR 49 H, Sodium 138, Potassium 4.3, Chloride 99, Carbon Dioxide 33 H, Anion Gap 10.3, BUN 14 D, Creatinine 0.90, Estimated Creat Clear 57, Estimated GFR 67, Est GFR ( Amer) 81, Glucose 116 H, Calcium 8.2 L, Magnesium 1.7 D, Total Bilirubin < 0.1 L, AST 20, ALT 16, Alkaline Phosphatase 70, Total Protein 6.6, Albumin 3.2 L D, Globulin 3.4 H, Albumin/Globulin Ratio 0.9 L I & O for Labs for Last 24 Hours: Intake & Output 03/08/23 03/09/23 03/10/23 03/11/23 23:59 23:59 23:59 23:59 Intake Total 1380 / 1860 1550 / 1550 Output Total 0 / 0 700 / 700 Balance 1380 / 1860 850 / 850 Weight 166 kg 166 kg Constitutional: Present no acute distress, morbidly obese, ch
[2023-03-11 11:48] LABS: POC Glucose,Bedside 131 (70-110)
[2023-03-11 15:09] LABS: Vancomycin,Trough 17.2 ug/mL (5.0-10.0)
[2023-03-11 16:47] LABS: POC Glucose,Bedside 108 (70-110)
[2023-03-11 20:04] LABS: POC Glucose,Bedside 109 (70-110)
[2023-03-11 20:28] LABS: Vancomycin,Peak 31.5 ug/ml (11-39)
--- NOTE | 2023-03-11 20:41 | PC.NURSE ---
CINDI/ [facility] PHARMACIST CONTACTED RE VANCOMYCIN PEAK AND TROUGH 17.2 AND 31.5. ORDER TO CONTINUE WITH NO CHANGES NEEDED.
--- NOTE | 2023-03-12 02:51 | PC.NURSE ---
PATIENT C/O MUSCLE CRAMPS IN RIGHT LEG. ANSON Daniels [employer] NOTIFIED. WILL CHECK POTASSIUM IN THE AM.
--- NOTE | 2023-03-12 03:40 | PC.NURSE ---
ANSON Daniels NP NOTIFIED RE MUSCLE CRAMPS IN RIGHT LEG. PATIENT DECLINES TYLENOL STATING TYLENOL WOULD NOT HELP THE CRAMPING IN HER LEG.
[2023-03-12 04:00] VITALS: BP 134/71; PULSE 88; RESP 22; TEMP 36.7; O2SAT 90; BMI 70.9
[2023-03-12 05:31] LABS: POC Glucose,Bedside 101 (70-110)
[2023-03-12 06:05] VITALS: PULSE 92; PULSE 96; O2SAT 91
--- NOTE | 2023-03-12 06:07 | PC.NURSE ---
RECEIVED TORADOL 30 MG IVP AT 0534 WHICH RELEIVED LEG CRAMPS. FSBS 101. 02 SATS 90% ON ROOM AIR.
[2023-03-12 07:17] VITALS: BP 115/63; PULSE 94; RESP 18; TEMP 36.4; O2SAT 93
--- NOTE | 2023-03-12 08:41 | EXP.DC.SUM ---
General Admission date:: 03/10/23 Discharge date: 03/12/23 HPI HPI HPI: 48 year old female presented to [facility] ED for c/o skin infection located on abdomen. It is associated with fever, pain, and erythema. PMHX of respiratory failure with trach, obesity, diabetic, anxiety, and chf. The pt's ED workup revealed no leukocytosis, electrolyte abnormalities, or LEONEL. Her CT of her abdomen reveals no gas, possible pyelonephritis, and hepatosplenomeglay. She was started on vancomycin, zosyn, and given acyclovir for possible shingles. Her HR is above 90 and she presented with a t max of 102.1. She meets sepsis criteria with her known cellulitis. The ED physician consulted the hospitalist team for further medical management. She arrives to the medical floor in no acute distress. She appears to have cellulitis on the lower portion of her abdomen. The erythema has been outlined with a marker. She has scabs to her face, legs, and buttocks. She states that she pulled a tick off of her face and buttock last week. There is no bulls-eye rash. The scabs are evenly disturbed throughout her face and legs. Highly suspicious for bed bugs. She reports that she lives alone in a trailer and has not been around any people with bed bugs or scabies. She will be decontaminated and placed in contact precautions. Hospital Course Hospital Course Hospital Course: 48 year old female presented to [facility] ED for c/o skin infection located on abdomen. It is associated with fever, pain, and erythema. PMHX of respiratory failure with trach, obesity, diabetic, anxiety, and chf. The pt's ED workup revealed no leukocytosis, electrolyte abnormalities, or LEONEL. Her CT of her abdomen reveals no gas, possible pyelonephritis, and hepatosplenomeglay. Patient showing response antibiotics, erythema receding. Consistent with cellulitis causing her sepsis at this time. Clinically improved during admission. White cell count remained normal. Will transition oral antibiotics to complete 7 days of therapy. Needs close follow-up with PCP for further observation and management. Stable to discharge home. Problems addressed as follows: SEPSIS, resolved CELLULITIS, improved -Given history of cats and fleas at home, suspect lesions on face secondary to flea bites and a tick that she removed over a week ago. Initiated on IV antibiotics with Zosyn and vancomycin. Showed improvement over 48 hours. Erythema significantly improving with resolution of tenderness of abdominal wall. Transition to cefuroxime to complete 7-day antibiotic course. Continue mupirocin on topical lesions. Inflammatory markers showing improvement during admission. Blood cultures remain negative during admission. Has been afebrile with normal white cell count for over 48 hours. CHF COPD CHRONIC RESP FAILURE Obesity hypoventilation syndrome -Trach care as needed during admission. Continued home BiPAP. Continued home trazodone to help with sleep and spironolactone for volume management. DuoNebs every 6 hours as needed. Stable for discharge home to complete oral antibiotics. Follow-up with PCP in the next week. Exam Data for Last 24 hours Vital signs and Labs for Last 24 Hours: Temp Pulse Resp BP Pulse Ox O2 Del Method O2 Flow Rate 97.6 F 94 H 18 115/63 93 L Trach Collar/Tube 3.5 03/12/23 07:17 03/12/23 07:17 03/12/23 07:17 03/12/23 07:17 03/12/23 07:17 03/12/23 07:17 03/12/23 06:05 Laboratory Results - last 24 hr 03/11/23 11:40: POC Glucose 131 H 03/11/23 14:30: Vancomycin Trough 17.2 H 03/11/23 16:37: POC Glucose 108 03/11/23 19:58: POC Glucose 109 03/11/23 20:00: Vancomycin Peak 31.5 03/12/23 05:10: POC Glucose 101 I & O for Last 24 hours: Intake & Output 03/09/23 03/10/23 03/11/23 03/12/23 23:59 23:59 23:59 23:59 Intake Total 1380 / 1860 3100 / 3460 1550 / 1550 Output Total 0 / 0 700 / 700 0 / 0 Balance 1380 / 1860 2400 / 2760 1550 / 1550 Weight 166 kg 166 kg 170.5 kg Microbi
[2023-03-12 09:32] LABS: Chloride 106 mmol/L (98-107); Potassium 4.7 mmoL/L (3.5-5.1); Sodium 137 mmol/L (136-145)
[2023-03-12 09:35] LABS: Alanine Aminotransferase 13 U/L (12-78); Albumin Level 2.7 g/dl (3.5-5.0); Alkaline Phosphatase 64 U/L (38-126); Anion Gap 11.7 mEq/L (5-15); Aspartate Amino Transferase 22 U/L (14-36); Blood Urea Nitrogen 20 mg/dl (7-17); Carbon Dioxide 24 mmol/L (22.0-30.0); Creatinine Clearance Estimated 51 mL/min (50-200); Estimated Glomerular Filt Rate 59 ml/min (>60); GFR (African American) 71 ML/MIN (>60); Globulin 2.6 g/dL (1.3-3.2); Total Protein,Serum 5.3 g/dl (6.3-8.2)
[2023-03-12 09:36] LABS: Calcium 7.6 mg/dl (8.4-10.2); Glucose 146 mg/dl (74-100)
[2023-03-12 09:39] LABS: Bilirubin,Total 0.1 mg/dl (0.2-1.3)
[2023-03-12 10:12] LABS: C-Reactive Protein > 300.0 mg/L (0-4)
[2023-03-12 10:14] LABS: C-Reactive Protein 216.6 mg/L (0-4)
--- NOTE | 2023-03-12 11:14 | EXP.PHA.CONS ---
Pharmacy Consult Date: 03/12/23 Time: 11:15 Referring provider: DR. SAWANT Reason for Consult:: VANCOMYCIN LEVELS Allergies Allergy/AdvReac Type Severity Reaction Status Date / Time doxycycline Allergy Severe Blister Verified 03/10/23 08:42 Home Medications Medication Instructions Recorded Confirmed Type omeprazole 40 mg capsule,delayed 40 mg PO DAILY acid reflux #90 caps 06/22/22 03/10/23 Rx [facility] 01[facility] 03/10/23 History Verio test strips) formoterol fumarate 20 mcg/2 mL 20 mcg inhalation BID Copd 01/01/23 03/10/23 History solution for nebulization lamotrigine 100 mg tablet 100 mg PO DAILY mood 01/01/23 03/10/23 History lancets 33 gauge ([facility] Delica 01/01/23 03/10/23 History Plus Lancet) lisinopril 10 mg tablet 10 mg PO DAILY High Blood Pressure 01/01/23 03/10/23 History torsemide 100 mg tablet 50 mg PO DAILY Fluid 01/01/23 03/10/23 History trazodone 100 mg tablet 100 mg PO HS Sleep 01/01/23 03/10/23 History cyclobenzaprine 5 mg tablet 5 mg PO BID Muscle relaxer 01/02/23 03/10/23 History diltiazem HCl 120 mg 120 mg PO DAILY Heart Rhythm 01/02/23 03/10/23 History capsule,extended release 24 hr, controlled (DILT-XR) spironolactone 50 mg tablet 50 mg PO DAILY #30 tabs 01/25/23 03/10/23 Rx (Aldactone) budesonide 0.5 mg/2 mL suspension 0.5 mg (2 mL) inhalation Q12H #180 02/09/23 03/10/23 Rx for nebulization mL ipratropium 0.5 mg-albuterol 3 mg 3 ml inhalation QID PRN shortness 02/09/23 03/10/23 Rx (2.5 mg base)/3 mL nebulization of breath or wheezing 90 days #270 soln mL fluticasone propionate 50 1 spray intranasal DAILY #16 grams 02/17/23 03/10/23 Rx mcg/actuation nasal spray,suspension (Flonase Allergy Relief) albuterol sulfate 90 mcg/actuation 1 puff inhalation Q6HP PRN 02/20/23 03/10/23 Rx aerosol inhaler (ProAir HFA) Shortness Of Breath #8.5 grams diazepam 10 mg tablet 10 mg PO BID Anxiety #60 tabs 02/20/23 03/10/23 Rx gabapentin 800 mg tablet 800 mg PO TID Neuropathy #90 tabs 02/20/23 03/10/23 Rx hydrocodone 10 mg-acetaminophen 1 tab PO TID #90 tabs 02/20/23 03/10/23 Rx 325 mg tablet duloxetine 30 mg capsule,delayed 60 mg PO DAILY Mood 03/10/23 03/10/23 History release sumatriptan succinate 100 mg tablet 100 mg PO NEEDED PRN Migraine 03/10/23 03/10/23 History Headache ziprasidone HCl 20 mg capsule 20 mg PO BID Mood 03/10/23 03/10/23 History cefuroxime axetil 500 mg tablet 500 mg PO BID 6 days #12 tabs 03/12/23 Rx levothyroxine 25 mcg tablet 25 mcg PO DAILYDM 30 days #30 tabs 03/12/23 Rx (Synthroid) mupirocin 2 % topical ointment 1 applic topical BID 10 days #0 03/12/23 Rx grams New Prescriptions to Start Prescriptions: cefuroxime axetil Dean Sawant levothyroxine [Synthroid] Dean Sawant Height: 1.55 m Weight: 170.5 kg Laboratory Results:: Laboratory Results - last 24 hr 03/10/23 01:34: C-Reactive Protein > 300.0 H 03/11/23 06:26: C-Reactive Protein 216.6 H 03/11/23 11:40: POC Glucose 131 H 03/11/23 14:30: Vancomycin Trough 17.2 H 03/11/23 16:37: POC Glucose 108 03/11/23 19:58: POC Glucose 109 03/11/23 20:00: Vancomycin Peak 31.5 03/12/23 05:10: POC Glucose 101 03/12/23 09:00: Sodium 137, Potassium 4.7, Chloride 106, Carbon Dioxide 24, Anion Gap 11.7, BUN 20 H D, Creatinine 1.00, Estimated Creat Clear 51, Estimated GFR 59, Est GFR ( Amer) 71, Glucose 146 H, Calcium 7.6 L, Total Bilirubin 0.1 L, AST 22, ALT 13, Alkaline Phosphatase 64, Total Protein 5.3 L, Albumin 2.7 L D, Globulin 2.6, Albumin/Globulin Ratio 1.0 L Medical History: Medical History (Updated 03/10/23 @ 05:06 by RENITA Reinoso) Abnormal stress test Acute and chronic respiratory failure Acute and chronic respiratory failure Acute and chronic respiratory failure with hypercapnia Acute on chronic diastolic heart failure Acute on chronic diastolic heart failure Angina,
[2023-03-12 11:20] VITALS: PULSE 91; PULSE 94; O2SAT 86
--- NOTE | 2023-03-13 14:17 | SW/DCPLANNER ---
Follow up phone call was made w/ this patient today. Patient stated that she is doing okay at home and she is sleeping a lot. Patient stated that she was unable to hand picker her medications. I [facility] and they will speak w/ patient regarding delivery of medications to home tomorrow. Patient does not have any further questions/needs at this time.
== END 2023-03-12 13:20 | disposition home or self-care (01) ==
LOC: ER 01:51 → 2ND 03:44
PROVIDERS: Nurse Practitioner Critical Care Medicine; Admitting Provider Internal Medicine Adolescent Medicine; Emergency Provider Emergency Medicine; PCP Emergency Medicine; Visit Provider Internal Medicine Adolescent Medicine
DX: L03.311 Cellulitis of abdominal wall (principal); I50.32 Chronic diastolic (congestive) heart failure; E66.2 Morbid (severe) obesity with alveolar hypoventilation; A41.9 Sepsis, unspecified organism; J44.1 Chronic obstructive pulmonary disease with (acute) exacerbation; J96.12 Chronic respiratory failure with hypercapnia; Z68.45 Body mass index [BMI] 70 or greater, adult; F20.0 Paranoid schizophrenia; F17.210 Nicotine dependence, cigarettes, uncomplicated; F41.1 Generalized anxiety disorder; F32.A Depression, unspecified; I11.0 Hypertensive heart disease with heart failure; E11.40 Type 2 diabetes mellitus with diabetic neuropathy, unspecified; E03.9 Hypothyroidism, unspecified; S00.86XA Insect bite (nonvenomous) of other part of head, initial encounter; S80.862A Insect bite (nonvenomous), left lower leg, initial encounter; S80.861A Insect bite (nonvenomous), right lower leg, initial encounter; S30.860A Insect bite (nonvenomous) of lower back and pelvis, initial encounter; J44.9 Chronic obstructive pulmonary disease, unspecified; G47.00 Insomnia, unspecified; B88.8 Other specified infestations
CPT/HCPCS: 36415; 71275; 74177; 80048; 80053; 80202; 80305; 81001; 82009; 82962; 83605; 83690; 83735; 83880; 84703; 85025; 85651; 86140; 87040; 87086; 94640; 94760; 99291; G0378; J0131; J2543; J3370; Q9967

== ENCOUNTER 2023-03-21 14:00 | Outpatient (RCR) | payer MEDICAID, SELFPAY ==
--- NOTE | 2023-03-14 12:03 | [facility].PTOPWND ---
Rehab Outpt Wound Evaluation Rehab OP Wound Evaluation Start: 03/14/23 10:36 Freq: Status: Active Protocol: Document 03/14/23 11:48 PHOCHINEDU (Rec: 03/14/23 12:02 PHORNE [id number]) E-signed By Dagoberto Mei, PT Subjective/History History History This is the initial PT eval for Carin Badillo, 48 yowf who presents with c/o > 10 yr hx of B LE swelling with insidious onset. She also reports increased pain and numbness intermittently throughout B LE. She was recently hospitalized for abdominal cellulitis and her edema has been increased since that time. She has PMH of morbid obesity, DM, anxiety, CHF, COPD, HLD, HTN, tracheostomy post COVID-19 with resp failure. Subjective Subjective She reports pain currently 3/ 10 in B LE, at worst 7/10 in B LE. B LE with 1+ pitting edema this date. Moderate fibrotic edema throughout B LE , R > L, and into abdomen. Increased erythema in abdomen also. 2/4 TTP noted in B LE. New diagnosis of cancer in past 12 No months? Lymphedema Eval Classification of Lymphedema Secondary Lymphedema Yes Stemmer's sign Stemmer's Sign yes Stage of Lymphedema Lymphedema stages Stage II (Pitting edema, increased fibrosis w/ decreased pitting) Skin Changes Dry Skin Yes Taut, Shiny Skin Yes Skin Folds Yes Redness Yes Blisters Yes Wounds Yes Brittle Uneven Nails Yes Discoloration of Skin Yes Other Changes Yes Pain Scale Pain Scale (0-10) 7 Affected Extremities Areas Affected by Lymphedema/Edema Abdomen,Right Lower Extremity, Left Lower Extremity Manual Lymphatic Drainage Treatment Area MLD Treatment Area Abdomen,Right Lower Extremity, Left Lower Extremity Wound Problems/Impairments Impairments Problems/Impairmments Palpation Tenderness,Impaired Strength,Impaired Endurance,
== END 2023-03-21 14:05 | disposition home or self-care (01) ==
LOC: PT 14:00
PROVIDERS: Visit Provider Nurse Practitioner Family
DX: I89.0 Lymphedema, not elsewhere classified (principal)
CPT/HCPCS: 97140; 97163

== ENCOUNTER 2023-07-25 20:52 | Observation (INO) | payer MEDICAID, SELFPAY ==
[2023-07-25 20:53] VITALS: BP 151/93; PULSE 112; RESP 20; TEMP 37.1; O2SAT 94; BMI 70.4
--- NOTE | 2023-07-25 21:14 | XR_ITS ---
PROCEDURE INFORMATION: Exam: XR Chest Exam date and time: 07/25/2023 9:16 PM Age: 48 years old Clinical indication: Dyspnea TECHNIQUE: Imaging protocol: Radiologic exam of the chest. Views: 1 view. COMPARISON: CT ANGIO CHEST PE PROTOCOL 03/10/2023 2:18 AM FINDINGS: Lungs: Unremarkable. No consolidation. Pleural spaces: Unremarkable. No pleural effusion. No pneumothorax. Heart/Mediastinum: Unremarkable. No cardiomegaly. Bones/joints: Unremarkable. IMPRESSION: No acute findings.
--- NOTE | 2023-07-25 21:18 | ED_ITS ---
Discharge Plan Disposition Patient Disposition: Admitted Prescriptions Prescriptions: No Action ipratropium-albuterol 0.5 mg-3 mg(2.5 mg base)/3 mL solution for nebulization 3 ml inhalation QID PRN (Reason: shortness of breath or wheezing) 90 Days Qty: 270 3RF budesonide 0.5 mg/2 mL suspension for nebulization 0.5 mg inhalation Q12H Qty: 180 3RF cyclobenzaprine 5 mg tablet 5 mg PO TID 90 Days Qty: 270 3RF diazepam 5 mg tablet 7.5 mg PO BID 30 Days Qty: 90 0RF gabapentin 800 mg tablet 800 mg PO TID Qty: 90 1RF benzonatate 200 mg capsule 200 mg PO TID Qty: 90 1RF oxycodone-acetaminophen [Percocet] 10-325 mg tablet 1 tab PO TID Qty: 90 0RF azithromycin [Zithromax TRI-SHAWANDA] 500 mg tablet 500 mg PO DAILY 14 Days Qty: 14 0RF dextromethorphan-guaifenesin [Robitussin Cough-Chest Dago DM] 5-100 mg/5 mL liquid 10 ml PO Q4-6H PRN (Reason: cough) Qty: 500 1RF fluticasone propionate [Flonase Allergy Relief] 50 mcg/actuation spray,suspension 1 spray intranasal DAILY Qty: 16 2RF Rx Instructions: administer into each nostril promethazine 25 mg tablet 25 mg PO TID PRN (Reason: nausea and vomiting) Qty: 30 0RF albuterol sulfate [ProAir HFA] 90 mcg/actuation HFA aerosol inhaler 1 puff inhalation Q6HP PRN (Reason: Shortness Of Breath) Qty: 8.5 2RF spironolactone [Aldactone] 50 mg tablet 50 mg PO DAILY Qty: 90 0RF trazodone 100 mg tablet See Rx Instructions .ROUTE .COMPLEX Qty: 90 0RF Dose Instruction: TAKE ONE TABLET BY MOUTH EVERY DAY AT BEDTIME FOR SLEEP Rx Instructions: TAKE ONE TABLET BY MOUTH EVERY DAY AT BEDTIME FOR SLEEP levothyroxine 25 mcg tablet See Rx Instructions .ROUTE .COMPLEX Qty: 30 0RF Dose Instruction: TAKE ONE TABLET BY MOUTH EVERY DAY AT 7:00 IN THE MORNING Rx Instructions: TAKE ONE TABLET BY MOUTH EVERY DAY AT 7:00 IN THE MORNING sumatriptan succinate 100 mg tablet 100 mg PO NEEDED PRN (Reason: Migraine Headache) Qty: 10 2RF lamotrigine 100 mg tablet 100 mg PO DAILY Qty: 30 3RF ziprasidone HCl 20 mg capsule 20 mg PO BID Qty: 60 1RF duloxetine 30 mg capsule,delayed release(DR/EC) 60 mg PO DAILY Qty: 30 1RF omeprazole 40 mg capsule,delayed release(DR/EC) See Rx Instructions .ROUTE .COMPLEX Qty: 30 0RF Dose Instruction: TAKE ONE CAPSULE BY MOUTH EVERY DAY FOR acid reflux Rx Instructions: TAKE ONE CAPSULE BY MOUTH EVERY DAY FOR acid reflux (DME) OneTouch Verio test strips Strip See Rx Instructions .Route Rx Instructions: As directed torsemide 100 mg tablet 50 mg PO DAILY lisinopril 10 mg tablet 10 mg PO DAILY formoterol fumarate 20 mcg/2 mL solution for nebulization 20 mcg inhalation BID (DME) lancets [OneTouch Delica Plus Lancet] 33 gauge misc See Rx Instructions .Route Rx Instructions: As directed diltiazem HCl [DILT-XR] 120 mg capsule,ext.rel 24h degradable 120 mg PO DAILY mupirocin 2 % Ointment 1 applic topical BID 10 Days Qty: 0 0RF Referrals Follow up/Referrals: Owen Martinez DO [Primary Care Provider] - See instructions Clinical Impressions Clinical Impression: Acute exacerbation of chronic obstructive pulmonary disease, Obesity hypoventilation syndrome, Acute hypoxic respiratory failure, Diastolic dysfunction, Edema, peripheral Discharge ED Provider: Chilo Horta General Adult HPI General Chief complaint: Shortness of Breath/Dyspnea Stated complaint: SOA Time Seen by Provider: 07/25/23 21:06 Mode of Arrival: Wheelchair Source of Information: Patient Limitations: Physical Limitations Description of Symptoms (Recalled from ER Triage Doc. 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 She states that for the last few days she has had increasing and wors ening cough with sputum production that smells like feces fever up to 101 at home today also some wheezing. She claims to have a history of heart failure as well and states that she is having a hard time getting the fluid off. Does not wear supplemental oxygen at home with her tracheostomy. Related Data Home Medications Medication Instructions Recorded Confirmed blood sugar diagnostic ([facility] 01/01/23 07/12/23 Verio test strips) formoterol fumarate 20 mcg/2 mL 20 mcg inhalation BID Copd 01/01/23 07/12/23 solution for nebulization [facility]23 07/12/23 Plus Lancet) lisinopril 10 mg tablet 10 mg PO DAILY High Blood Pressure 01/01/23 07/12/23 torsemide 100 mg tablet 50 mg PO DAILY Fluid 01/01/23 07/12/23 diltiazem HCl 120 mg 120 mg PO DAILY Heart Rhythm 01/02/23 07/12/23 capsule,extended release 24 hr, controlled (DILT-XR) Previous Rx's Medication Instructions Recorded budesonide 0.5 mg/2 mL suspension 0.5 mg (2 mL) inhalation Q12H #180 02/09/23 for nebulization mL ipratropium 0.5 mg-albuterol 3 mg 3 ml inhalation QID PRN shortness 02/09/23 (2.5 mg base)/3 mL nebulization of breath or wheezing 90 days #270 soln mL fluticasone propionate 50 1 spray intranasal DAILY #16 grams 02/17/23 mcg/actuation nasal spray,suspension (Flonase Allergy Relief) mupirocin 2 % topical ointment 1 applic topical BID 10 days #0 03/12/23 grams promethazine 25 mg tablet 25 mg PO TID PRN nausea and 03/30/23 vomiting #30 tabs albuterol sulfate 90 mcg/actuation 1 puff inhalation Q6HP PRN 05/16/23 aerosol inhaler (ProAir HFA) Shortness Of Breath #8.5 grams spironolactone 50 mg tablet 50 mg PO DAILY #90 tabs 05/17/23 (Aldactone) trazodone 100 mg tablet See Rx Instructions .Route 05/18/23 .COMPLEX #90 tabs levothyroxine 25 mcg tablet See Rx Instructions .Route 05/19/23 .COMPLEX #30 tabs sumatriptan succinate 100 mg tablet 100 mg PO NEEDED PRN Migraine 05/19/23 Headache #10 tabs duloxetine 30 mg capsule,delayed 60 mg PO DAILY Mood #30 caps 05/24/23 release lamotrigine 100 mg tablet 100 mg PO DAILY mood #30 tabs 05/24/23 ziprasidone HCl 20 mg capsule 20 mg PO BID Mood #60 caps 05/24/23 azithromycin 500 mg tablet 500 mg PO DAILY 14 days #14 tabs 07/12/23 (Zithromax TRI-SHAWANDA) benzonatate 200 mg capsule 200 mg PO TID #90 caps 07/12/23 cyclobenzaprine 5 mg tablet 5 mg PO TID Muscle relaxer 90 days 07/12/23 #270 tabs dextromethorphan-guaifenesin 5 10 ml PO Q4-6H PRN cough #500 mL 07/12/23 mg-100 mg/5 mL oral liquid (Robitussin Cough-Chest Congestion DM) diazepam 5 mg tablet 7.5 mg PO BID anxiety 30 days #90 07/12/23 tabs gabapentin 800 mg tablet 800 mg PO TID Neuropathy #90 tabs 07/12/23 oxycodone-acetaminophen 10 mg-325 1 tab PO TID #90 tabs 07/12/23 mg tablet (Percocet) omeprazole 40 mg capsule,delayed See Rx Instructions .Route 07/18/23 release .COMPLEX #30 caps Allergies Allergy/AdvReac Type Severity Reaction Status Date / Time doxycycline Allergy Severe Blister Verified 07/12/23 10:38 amoxicillin AdvReac Verified 07/12/23 10:38 nitrofurantoin AdvReac Verified 07/12/23 10:38 [From Macrobid] [facility] Disclaimer: The information contained in this section may have been updated after the patient was seen, as this information can be updated by other users. Medical History Abnormal stress test Acute and chronic respiratory failure Acute and chronic respiratory failure Acute and chronic respiratory failure with hypercapnia Acute on chronic diastolic heart failure Acute on chronic diastolic heart failure Angina, class III Anxiety Asthma Asthma Cellulitis of right lower extremity Chest pain Chest pain Chronic respiratory failure with hypercapnia Congestive heart failure COPD (chronic obstructive pulmonary disease) COVID-19 Depression Diabetes mellitus, type 2 Diastolic congestive heart failure Diastolic dysfunction Dizziness Dyspnea Edema Elevated d-dimer Generalized anxiety disorder History of asthma History of ectopic History of hyperkalemia History of sleep apnea History of smoking 30 or more pack years HLD (hyperlipidemia) HTN (hypertension) Hypothyroidism (~11/21/17) Insomnia Neuropathy Obesity Obesity hypoventilation syndrome PAC (premature atrial contraction) Paranoid schizophrenia Pneumonia Pneumonia Recurrent major depression resistant to treatment Respiratory failure with hypoxia and hypercapnia Right lower lobe pneumonia Severe sepsis Sinus tachycardia Sleep apnea Patient does use BiPAP plus oxygen and states she uses it on a regular basis at night. Again following with pulmonary for this. SOB (shortness of breath) SOB (shortness of breath) on exertion Tobacco abuse Strongly encouraged to quit smoking. Tracheostomy care Tracheostomy dependent Patient is following with pulmonary at [facility]. Tracheostomy in place Uses bilevel positive airway pressure (BPAP) ventilation at home Surgical History History of colonoscopy History of hysterectomy History of left knee surgery Family History Other No significant family history Social History Smoking Status: Former smoker tobacco type: cigarettes packs per day: 1 smoking status stop date: 02/2022 alcohol intake: former substance use type: marijuana current occupational status: disabled Travel in the last 8 weeks: None household members: family housing: apartment number of children: 0 current occupational exposures/hazards: No caffeine: Yes ROS Obtained: Yes All systems reviewed & no additional complaints except as documented Physical Exam General General appearance: in distress and obese (Morbid obese) Respiratory Respiratory exam: Present other (Mild respiratory distress oxygen saturations 88% on room air mild tachypnea diffuse coarse breath sounds nonfocal no wheezing very thick secretions and active coughing) Cardiovascular Cardiovascular exam: Present tachycardia Neurological Exam Neurological exam: Present alert Medical Decision Making Estrada Inquiry Pt receiving controlled substance: No Vital Signs: 07/25/23 20:53 07/25/23 22:11 Temperature 98.8 F Temperature Source Oral Pulse Rate 115 H Pulse Rate [Radial] 112 H Respiratory Rate 20 Blood Pressure [Right Arm] 151/93 H Blood Pressure Mean [Right Arm] 112 Blood Pressure Source [Right Arm] Automatic Cuff Blood Pressure Position [Right Arm] Sitting 02 Sat by Pulse Oximetry 94 L Oxygen Delivery Method Room Air Lab Data Lab results reviewed: Yes I reviewed the patient's lab results. Lab Results 07/25/23 21:12: WBC 9.6, RBC 4.56, Hgb 12.5, Hct 40.8, MCV 89.6, MCH 27.5, MCHC 30.7 L, RDW 15.9, Plt Count 250, MPV 8.2, Neut % (Auto) 76.4, Lymph % (Auto) 18.2, [place] % (Auto) 3.8, Eos % (Auto) 1.2, Baso % (Auto) 0.4, Neut # (Auto) 7.4, Lymph # (Auto) 1.8, [place] # (Auto) 0.4, Eos # (Auto) 0.1, Baso # (Auto) 0.0, Sodium 138, Potassium 5.0, Chloride 105, Carbon Dioxide 34 H, Anion Gap 4.0 L, BUN 16, Creatinine 0.80, Estimated Creat Clear 64, Estimated GFR 76, Est GFR ( Amer) 92, Glucose 138 H, Lactate 1.5, Calcium 8.7, Total Bilirubin 0.2, AST 24, ALT 20, Alkaline Phosphatase 83, Troponin I < 0.01, NT-Pro-B Natriuret Pep 59.8, Total Protein 7.9 D, Albumin 4.0, Globulin 3.9 H, Albumin/Globulin Ratio 1.0 L 07/25/23 21:15: VBG pH 7.29 L, VBG pCO2 60.3 H, VBG pO2 77.6 H, VBG HCO3 28.4, VBG Total CO2 30.3 H, VBG O2 Saturation 95.3 H, VBG Base Excess 1.8 07/25/23 21:12 07/25/23 21:12 Orders (Tests/Meds): ED MEDICATIONS Generic Name Dose Route Start Last Admin Trade Name Freq PRN Reason Stop Dose Admin Ceftriaxone Sodium 2 gm/ 100 mls @ 200 mls/hr 07/25/23 22:06 Sodium Chloride IV 07/25/23 22:35 ONCE ONE Azithromycin 500 mg/ Sodium 250 mls @ 250 mls/hr 07/25/23 22:06 Chloride IV 07/25/23 22:07 ONCE ONE Sodium Chloride 3 ml 07/25/23 21:13 07/25/23 21:30 Sodium Chloride 3% 15ml [facility] 08/24/23 21:12 3 ml ONCE PRN Administration INDUCE SPUTUM [employer]LECTION Discontinued Medications Generic Name Dose Route Start Last Admin Trade Name Freq PRN Reason Stop Dose Admin Albuterol/Ipratropium 3 ml 07/25/23 21:13 07/25/23 21:30 Ipratropium/Albuterol 3 Ml [facility] 07/25/23 21:14 3 ml ONCE ONE Administration Lactated Ringer's 500 mls @ 999 mls/hr 07/25/23 21:15 07/25/23 21:27 Lactated Ringer's 1000 Ml Bag IV 07/25/23 21:45 999 mls/hr .Q31M GERMAN Administration Magnesium Sulfate 2 gm in 50 mls @ 50 mls/hr 07/25/23 21:13 07/25/23 21:28 Magnesium Sulfate 2gm/50ml Premix IV 07/25/23 22:12 50 mls/hr ONCE ONE Administration Methylprednisolone Sodium Succinate 125 mg 07/25/23 21:13 07/25/23 21:28 Methylprednisolone Sod Succ 125mg Vial IV 07/25/23 21:14 125 mg ONCE ONE Administration ORDERS Category Date Time Status CXR --portable [XR chest portable] Stat Exams 07/25/23 21:14 Completed BNP [Brain Natriuretic Peptide] Stat Lab 07/25/23 21:12 Completed CBC w/Auto Diff [Complete Blood Count Auto Diff] Stat Lab 07/25/23 21:12 Completed CMP [Comprehensive Metabolic Panel] Stat Lab 07/25/23 21:12 Completed Full Resp Panel w/COVID ([facility]) Routine Lab 07/25/23 21:31 Received Lactic Acid Stat Lab 07/25/23 21:12 Completed Trop I [Troponin I] Stat Lab 07/25/23 21:12 Completed Troponin I Q3H Lab 07/26/23 00:15 Ordered Troponin I Q3H Lab 07/26/23 03:15 Ordered Blood Culture Stat Micro 07/25/23 21:12 Received Sputum Culture & Gram Stain Stat Micro 07/25/23 21:30 Received Venous Blood Gas Stat RT 07/25/23 21:15 Completed ECG Data Tracing #1: I reviewed this ECG and interpreted as documented below: Ventricular rate of 102 sinus tachycardia no acute ischemic changes noted there is a normal axis no significant conduction abnormalities nondiagnostic Medical Decision Narrative: Chronically ill-appearing 48-year-old female trach dependent with obesity hypoventilation with respiratory failure in the past presenting today with worsening cough shortness of breath wheezing thick sputum production is very foul-smelling. I suspect she has underlying bacterial infection. Will treat her for COPD exacerbation get cultures including blood cultures and sputum cul tures and will reassess after imaging of her chest. Chest x-ray performed to person interpreted shows no acute cardiopulmonary emergency however patient has poor lung penetration and body habitus severely limits his exam. Reassessment after nebs steroids supplemental oxygen patient is improving some. Reviewing her chart in the past she has a history of diastolic dysfunction has been admitted for diuresis in the past and patient feels like she does have significant peripheral edema that is worsening on further questioning. However she has had some infectious symptoms and we will treat her for presumed pneumonia and COPD exacerbation with hypoxic respiratory failure she also may need to be diuresed in the hospital. I spoke with Migel with hospital medicine who agrees to admit the patient for further evaluation and treatment. Patient was admitted in improved and stable condition. Critical Care Critical Care Time Critical Care Time: Yes Attestation: On 07/25/23, the high probability of a clinically significant, sudden or life threatening deterioration of the following system(s) required my full and direct attention, intervention and personal management. The time I documented below is in addition to time spent performing reported procedures but includes the following listed in this critical care notation. Total Time Total Critical Care Time: 35
[2023-07-25 21:26] LABS: Basophils % 0.4 % (0.1-2.0); Eosinophils # 0.1 K/mm3 (0.0-0.4); Eosinophils % 1.2 % (0.1-12.0); Hematocrit 40.8 % (37.0-47.0); Hemoglobin 12.5 g/dL (12.2-16.2); Lymphocytes # 1.8 K/mm3 (0.7-4.5); Lymphocytes % 18.2 % (10-50); Mean Corpuscular HGB Conc 30.7 g/dL (31.8-35.4); Mean Corpuscular Hemoglobin 27.5 pg (27.0-31.2); Mean Corpuscular Volume 89.6 fl (81-99); Mean Platelet Volume 8.2 fl (7.4-10.4); Monocytes # 0.4 K/mm3 (0.1-1.0); Monocytes % 3.8 % (1.7-9.3); Neutrophils # 7.4 K/mm3 (1.8-7.8); Neutrophils % 76.4 % (37.0-80.0); Platelet Count 250 K/mm3 (142-424); Red Blood Count 4.56 M/mm3 (4.20-5.40); Red Cell Distribution Width 15.9 % (11.5-17.5); White Blood Count 9.6 K/mm3 (4.8-10.8)
[2023-07-25] MEDS: LACTATED RINGERS 1000ML 500 ML 999 ML IV (21:27)
[2023-07-25] MEDS: METHYLPREDNISOLONE SOD SUCC 125MG VIAL 125 MG IV (21:28)
[2023-07-25] MEDS: MAGNESIUM SULFATE IN WATER 2 GM/50 ML PIGGYBACK IV (21:28)
[2023-07-25] MEDS: SODIUM CHLORIDE 3% 15ML NEB 3 ML IH (21:30)
[2023-07-25] MEDS: IPRATROPIUM/ALBUTEROL 3 ML NEB IH (21:30)
[2023-07-25 21:31] VITALS: BP 159/94; PULSE 113; RESP 23; O2SAT 94
[2023-07-25 21:33] LABS: Chloride 105 mmol/L (98-107); Sodium 138 mmol/L (136-145)
[2023-07-25 21:35] LABS: Alanine Aminotransferase 20 U/L (12-78); Aspartate Amino Transferase 24 U/L (14-36); Blood Urea Nitrogen 16 mg/dl (7-17); Creatinine Clearance Estimated 64 mL/min (50-200); Estimated Glomerular Filt Rate 76 ml/min (>60); GFR (African American) 92 ML/MIN (>60)
[2023-07-25 21:36] LABS: Alkaline Phosphatase 83 U/L (38-126); Bilirubin,Total 0.2 mg/dl (0.2-1.3); Calcium 8.7 mg/dl (8.4-10.2); Carbon Dioxide 34 mmol/L (22.0-30.0); Globulin 3.9 g/dL (1.3-3.2); Glucose 138 mg/dl (74-100); Total Protein,Serum 7.9 g/dl (6.3-8.2)
[2023-07-25 21:37] LABS: Lactic Acid 1.5 mmol/L (0.7-2.1)
[2023-07-25 21:43] LABS: Adenovirus,PCR Not Detected (NotDetected); Coronavirus 19, PCR Not Detected (NotDetected); Coronavirus 229E Not Detected (NotDetected); Coronavirus NL63 Not Detected (NotDetected); Coronavirus OC43 Not Detected (NotDetected); Coronovirus HKU1,PCR Not Detected (NotDetected); Human Metapneumovirus Not Detected (NotDetected); Influenza A, PCR Not Detected (NotDetected); Influenza AH1, 2009 Not Detected (NotDetected); Influenza AH1, PCR Not Detected (NotDetected); Influenza AH3,PCR Not Detected (NotDetected); Influenza B, PCR Not Detected (NotDetected); Parainfluenza 1, PCR Not Detected (NotDetected); Parainfluenza 2, PCR Not Detected (NotDetected); Parainfluenza 3, PCR Not Detected (NotDetected); Parainfluenza 4, PCR Not Detected (NotDetected); Respiratory Syncytial Virus Not Detected (NotDetected); Rhinovirus/Enterovirus Not Detected (NotDetected)
[2023-07-25 21:45] LABS: NT Pro Brain Natriuretic Pep. 59.8 pg/mL (0-125)
[2023-07-25 21:54] LABS: Troponin I < 0.01 ng/ml (0.00-0.034)
[2023-07-25 22:01] VITALS: BP 125/104; PULSE 106; RESP 24; O2SAT 96
[2023-07-25 22:01] LABS: VBG Base Excess 1.8 mmol/L (-2.4-2.3); VBG HCO3 28.4 mmol/L (23-30); VBG Oxygen Saturation 95.3 % (50-70); VBG PH 7.29 mmol/L (7.31-7.41); VBG PO2 77.6 mmol/L (28-40); VBG Total CO2 30.3 mmol/L (23-27)
--- NOTE | 2023-07-25 22:06 | ECG_ITS ---
APPROVED REPORT Exam: Resting ECG HR:102 bpm ECG Measurements Heart Rate 102 AXES UT 150 P 54 QRSd 86 QRS 35 QT 312 T 48 QTc 371 Conclusion SINUS TACHYCARDIA LOW QRS VOLTAGE IN PRECORDIAL LEADS [QRS DEFLECTION < 1.0 mV IN CHEST LEADS] ABNORMAL RHYTHM ECG UNCONFIRMED REPORT Electronically signed by : Mario Salcido MD 07/26/2023 20:36:12
[2023-07-25 22:10] LABS: VBG PCO2 60.3 mmol/L (35-51)
[2023-07-25 22:11] VITALS: PULSE 115
--- NOTE | 2023-07-25 22:15 | PC.NURSE ---
spoke with powerhouse mechanic to request admission bed for patient for COPD exacerbation along with fluid overload.
--- NOTE | 2023-07-25 22:19 | P.HP_ITS ---
History of Present Illness *Admission Date: 07/25/23 *Reason for visit:: SOB *History of present illness: This is a morbidly obese 47-year-old female with a PMHx of chronic hypoventilation syndrome, respiratory failure post COVID, trach dependance, on home oxygen 3L, MDD, migraine, hypothyroidism, anxiety disorder, diastolic heart failure, normal EF, chronic bilateral lymphedema and a former smoker quitted 5 months ago, who presented today with worsening shortness of breath, he has had increasing and worsening cough with sputum production, with foul odor out of her trach site. She also c/o worsening peripheral edema that does not respond to home diuresis regimen. She is on home torsemide and spironolactone. Patient c/o being gaining weight and she blamed to fluid overload. She also states she has a severe headache and body aches, with intermittent fevers. She is been having this on and off for the last 4 months . Today she referred temp up to 101 at home. Admitted for further management and treatment. [facility] Disclaimer: The information contained in this section may have been updated after the patient was seen, as this information can be updated by other users. Medical History (Updated 07/26/23 @ 12:23 by Tian Diaz MD) Abnormal stress test Acute and chronic respiratory failure Acute and chronic respiratory failure Acute and chronic respiratory failure with hypercapnia Acute and chronic respiratory failure with hypercapnia Acute on chronic diastolic heart failure Acute on chronic diastolic heart failure Angina, class III Anxiety Asthma Asthma Cellulitis of right lower extremity Chest pain Chest pain Chronic respiratory failure with hypercapnia Congestive heart failure COPD (chronic obstructive pulmonary disease) COVID-19 Depression Diastolic congestive heart failure Diastolic dysfunction Dizziness Dyspnea Edema Elevated d-dimer Generalized anxiety disorder History of asthma History of ectopic History of hyperkalemia History of sleep apnea History of smoking 30 or more pack years HTN (hypertension) Hypothyroidism (~11/21/17) Insomnia Neuropathy Obesity Obesity hypoventilation syndrome IRLANDA (obstructive sleep apnea) PAC (premature atrial contraction) Paranoid schizophrenia Pneumonia Pneumonia PTSD (post-traumatic stress disorder) Recurrent major depression resistant to treatment Respiratory failure with hypoxia and hypercapnia Right lower lobe pneumonia Severe sepsis Sinus tachycardia Sleep apnea SOB (shortness of breath) SOB (shortness of breath) on exertion Tobacco abuse Tracheostomy care Tracheostomy dependent Tracheostomy in place Uses bilevel positive airway pressure (BPAP) ventilation at home Surgical History History of colonoscopy History of hysterectomy History of left knee surgery Family History Other No significant family history Social History Smoking Status: Former smoker tobacco type: cigarettes packs per day: 1 smoking status stop date: 02/2022 alcohol intake: former substance use type: marijuana current occupational status: disabled Travel in the last 8 weeks: None household members: family housing: apartment number of children: 0 current occupational exposures/hazards: No caffeine: Yes Review of Systems Review of Systems Review of systems:: pertinent systems reviewed and negative unless documented below Meds Home Medications and Allergies Home Medications Medication Instructions Recorded Confirmed Type blood sugar diagnostic (OneTouch 01/01/23 07/12/23 History Verio test strips) formoterol fumarate 20 mcg/2 mL 20 mcg inhalation BID Copd 01/01/23 07/25/23 History solution for nebulization lancets 33 gauge (OneTouch Delica 01/01/23 07/12/23 History Plus Lancet) lisinopril 10 mg tablet 10 mg PO DAILY High Blood Pressure 01/01/23 07/25/23 History torsemide 100 mg tablet 100 mg PO DAILY Fluid 01/01/23 07/25/23 History diltiazem HCl 120 mg 120 mg PO DAILY Heart Rhythm 01/02/23 07/25/23 History capsule,extended release 24 hr, controlled (DILT-XR) budesonide 0.5 mg/2 mL suspension 0.5 mg (2 mL) inhalation Q12H #180 02/09/23 07/25/23 Rx for nebulization mL ipratropium 0.5 mg-albuterol 3 mg 3 ml inhalation QID PRN shortness 02/09/23 07/25/23 Rx (2.5 mg base)/3 mL nebulization of breath or wheezing 90 days #270 soln mL fluticasone propionate 50 1 spray intranasal DAILY #16 grams 02/17/23 07/25/23 Rx mcg/actuation nasal spray,suspension (Flonase Allergy Relief) promethazine 25 mg tablet 25 mg PO TID PRN nausea and 03/30/23 07/25/23 Rx vomiting #30 tabs albuterol sulfate 90 mcg/actuation 1 puff inhalation Q6HP PRN 05/16/23 07/25/23 Rx aerosol inhaler (ProAir HFA) Shortness Of Breath #8.5 grams spironolactone 50 mg tablet 50 mg PO DAILY #90 tabs 05/17/23 07/25/23 Rx (Aldactone) sumatriptan succinate 100 mg tablet 100 mg PO NEEDED PRN Migraine 05/19/23 07/25/23 Rx Headache #10 tabs duloxetine 30 mg capsule,delayed 60 mg PO DAILY Mood #30 caps 05/24/23 07/25/23 Rx release lamotrigine 100 mg tablet 100 mg PO DAILY mood #30 tabs 05/24/23 07/25/23 Rx ziprasidone HCl 20 mg capsule 20 mg PO BID Mood #60 caps 05/24/23 07/26/23 Rx cyclobenzaprine 5 mg tablet 5 mg PO TID Muscle relaxer 90 days 07/12/23 07/25/23 Rx #270 tabs dextromethorphan-guaifenesin 5 10 ml PO Q4-6H PRN cough #500 mL 07/12/23 07/25/23 Rx mg-100 mg/5 mL oral liquid (Robitussin Cough-Chest Congestion DM) diazepam 5 mg tablet 7.5 mg PO BID anxiety 30 days #90 07/12/23 07/25/23 Rx tabs gabapentin 800 mg tablet 800 mg PO TID Neuropathy #90 tabs 07/12/23 07/25/23 Rx benzonatate 200 mg capsule 200 mg PO TID PRN Cough 07/25/23 07/25/23 History levothyroxine 25 mcg tablet 25 mcg PO DAILY 07/25/23 07/25/23 History omeprazole 40 mg capsule,delayed 40 mg PO BID 07/25/23 07/25/23 History release oxycodone-acetaminophen 10 mg-325 1 tab PO TID PRN PAIN 07/25/23 07/25/23 History mg tablet (Percocet) trazodone 100 mg tablet 100 mg PO HS 07/25/23 07/25/23 History cholecalciferol (vitamin D3) 125 10,000 unit PO DAILY 07/26/23 07/26/23 History mcg (5,000 unit) capsule levofloxacin 750 mg tablet 750 mg PO DAILY 3 days #3 tabs 07/26/23 Rx magnesium oxide 400 mg (241.3 mg 400 mg PO DAILY 07/26/23 07/26/23 History magnesium) tablet mupirocin 2 % topical ointment 1 applic topical BID 07/26/23 07/26/23 History rimegepant 75 mg disintegrating 75 mg PO NEEDED PRN Migraine 07/26/23 07/26/23 History tablet (Nurtec ODT) Headache New Prescriptions to Start Prescriptions: levofloxacin Dean Onrelas Allergies Allergy/AdvReac Type Severity Reaction Status Date / Time doxycycline Allergy Severe Blister Verified 07/12/23 10:38 amoxicillin AdvReac Verified 07/12/23 10:38 nitrofurantoin AdvReac Verified 07/12/23 10:38 [From Macrobid] Exam Data for Last 24 hours Vital signs and Labs for Last 24 Hours: Temp Pulse Resp BP Pulse Ox O2 Del Method 98.8 F 115 H 20 151/93 H 94 L Room Air 07/25/23 20:53 07/25/23 22:11 07/25/23 20:53 07/25/23 20:53 07/25/23 20:53 07/25/23 20:53 Laboratory Results - last 24 hr 07/25/23 21:12: WBC 9.6, RBC 4.56, Hgb 12.5, Hct 40.8, MCV 89.6, MCH 27.5, MCHC 30.7 L, RDW 15.9, Plt Count 250, MPV 8.2, Neut % (Auto) 76.4, Lymph % (Auto) 18.2, [place] % (Auto) 3.8, Eos % (Auto) 1.2, Baso % (Auto) 0.4, Neut # (Auto) 7.4, Lymph # (Auto) 1.8, [place] # (Auto) 0.4, Eos # (Auto) 0.1, Baso # (Auto) 0.0, Sodium 138, Potassium 5.0, Chloride 105, Carbon Dioxide 34 H, Anion Gap 4.0 L, BUN 16, Creatinine 0.80, Estimated Creat Clear 64, Estimated GFR 76, Est GFR ( Amer) 92, Glucose 138 H, Lactate 1.5, Calcium 8.7, Total Bilirubin 0.2, AST 24, ALT 20, Alkaline Phosphatase 83, Troponin I < 0.01, NT-Pro-B Natriuret Pep 59.8, Total Protein 7.9 D, Albumin 4.0, Globulin 3.9 H, Albumin/Globulin Ratio 1.0 L 07/25/23 21:15: VBG pH 7.29 L, VBG pCO2 60.3 H, VBG pO2 77.6 H, VBG HCO3 28.4, VBG Total CO2 30.3 H, VBG O2 Saturation 95.3 H, VBG Base Excess 1.8 I & O for Last 24 hours: Intake & Output 07/22/23 07/23/23 07/24/23 07/25/23 23:59 23:59 23:59 23:59 Weight 169.19 kg Constitutional Constitutional: morbidly obese and chronically ill appearing *Routine HEENT Exam Head: Present normocephalic Eye: Present EOMI ENT: Present mucous membranes moist *Routine Neck Exam Neck: Present supple and full ROM Comments: tracheostomy *Routine Respiratory Exam Respiratory: Present decreased breath sounds, CTA bilaterally, wheezes, normal respiratory effort and symmetric chest movement *Routine Cardiovascular Exam Cardiovascular: Present RRR, Normal S1 and Normal S2 *Routine Abdominal Exam Abdominal: Present soft, normoactive bowel sounds and obese; Absent tenderness or organomegaly *Routine Rectal Exam Rectal:: deferred *Routine Genitalia Exam Genitalia:: deferred *Routine Extremities Exam Extremities: Present edema and full ROM; Absent cyanosis or clubbing *Routine Skin Exam Skin: Present erythema (abdomen ) and wounds Comments: bug bites on face, legs, and buttock *Routine Neurological Exam Neurological: Present alert and oriented X3 H&P: Result Imaging and Cardiology Chest x-ray: Status: image reviewed by me, Preliminary report and final report EKG: Status: image reviewed by me and Preliminary report Assessment and Plan *Assessment and plan (1) Acute and chronic respiratory failure: Status: Acute Qualifiers: Respiratory failure complication: hypercapnia Qualified Code(s): J96.22 - Acute and chronic respiratory failure with hypercapnia Category: Medical Code(s): J96.20 - Acute and chronic respiratory failure, unspecified whether with hypoxia or hypercapnia (2) Edema, peripheral: Status: Acute Category: Medical Code(s): R60.9 - Edema, unspecified (3) Tracheostomy in place: Status: Acute Category: Medical Code(s): Z93.0 - Tracheostomy status (4) Obesity hypoventilation syndrome: Status: Chronic Category: Medical Code(s): E66.2 - Morbid (severe) obesity with alveolar hypoventilation (5) Headache: Status: Resolved Qualifiers: Headache chronicity pattern: chronic headache Headache type: unspecified Intractability: not intractable Qualified Code(s): R51.9 - Headache, unspecified; G89.29 - Other chronic pain Category: Medical Code(s): R51.9 - Headache, unspecified (6) COPD (chronic obstructive pulmonary disease): Problem Comment: Patient has severe lung disease for multiple reasons. She has albuterol, budesonide and ipratropium MDIs. She she has fluticasone nasal spray. She is following with pulmonary. Status: Acute Qualifiers: COPD type: COPD with acute exacerbation Qualified Code(s): J44.1 - Chronic obstructive pulmonary disease with (acute) exacerbation Category: Medical Code(s): J44.9 - Chronic obstructive pulmonary disease, unspecified (7) Diastolic congestive heart failure: Status: Acute Qualifiers: Heart failure chronicity: chronic Qualified Code(s): I50.32 - Chronic diastolic (congestive) heart failure Category: Medical Code(s): I50.30 - Unspecified diastolic (congestive) heart failure (8) Uses bilevel positive airway pressure (BPAP) ventilation at home: Status: Chronic Category: Medical Code(s): Z99.89 - Dependence on other enabling machines and devices (9) MDD (major depressive disorder), recurrent episode: Status: Acute Qualifiers: Major depression episode severity: severe Psychotic features: with psychotic features Qualified Code(s): F33.3 - Major depressive disorder, recurrent, severe with psychotic symptoms Category: Medical Code(s): F33.9 - Major depressive disorder, recurrent, unspecified (10) Diabetes mellitus, type 2: Status: Acute Qualifiers: Diabetes mellitus complication detail: with unspecified neuropathy Diabetes mellitus complication status: with neurologic complications Diabetes mellitus custodial insulin use: without qualitative field coordinator use Qualified Code(s): E11.40 - Type 2 diabetes mellitus with diabetic neuropathy, unspecified Category: Medical Code(s): E11.9 - Type 2 diabetes mellitus without complications (11) Obesity, morbid: Problem Comment: Discussed briefly with her the possibility of gastric bypass. She is very fearful of having any abdominal surgery as she has had multiple surgeries in the past. Status: Acute Category: Medical Code(s): E66.01 - Morbid (severe) obesity due to excess calories (12) History of smoking 30 or more pack years: Status: Chronic Category: Social Hx Code(s): Z87.891 - Personal history of nicotine dependence Plan Morbidly obese 47-year-old female with a PMHx of chronic hypoventilation syndrome, respiratory failure post COVID, trach dependance, on home oxygen 3L, MDD, migraine, hypothyroidism, anxiety disorder, diastolic heart failure, normal EF, chronic bilateral lymphedema and a former smoker quitted 5 months ago, who presented today with worsening shortness of breath, he has had increasing and worsening cough with sputum production. Upon arrival, patient was satting in the high 80's. However oxygen demand has not increased. Initial work-up included checks x-ray, I personally reviewed. There is no signs of focal pneumonia, concerning for bilateral basal atelectasis versus edema. Lab was obtained. Grossly unremarkable. ABG was showing respiratory acidosis with hypercapnia no hypoxia. findings discussed with the ER doctor. Agreed for admission for further treatment and management. Plan will be as follows: -Acute on chronic hypercapnic respiratory failure, likely secondary to fluid overload and obesity hypoventilation syndrome conditions to r/o CAP, or CHF exacerbation or deteriorated valvular disease: Dispo med surgical floor. vital sign monitoring. Daily weight. Strict I/Os. Oxygen at 3 L. Respiratory therapy consulted. Okay for home BiPAP to use. Patient been complaining of coughing and increasing secretions from the trach. ceft and zithromax given at ER. Continue with levaquin empirically. sputum culture pending. last was positive for gram positive cocci. respiratory panel neg DuoNeb every 6h for shortness of breath -Peripheral edema: She is on 100 mg of torsemide and spironolactone at home. resumed. Strict I&Os. CMP in the morning. -Tracheostomy dependance. obesity hypoventilation syndrome respiratory failure s/p COVID Educated patient for trach self-care, asepsis technique reinforced. Continue home BiPAP with 3 L supplemental oxygen at night./ -Headache: Continue to monitor for headache. Tylenol and morphine as needed for pain management. Resume home sumatriptan. -Diastolic congestive heart failure: Not appearing on exacerbation however there is a visible chronic fluid overload. Xray was done. Last echocardiogram 12/2022 was showing preserved ejection fraction, with some mitral and tricuspid regurgitation. -MDD with anxierty: resume diazepam, trazadone on home synthroid Resume home BiPAP. -Morbidly obese. We will continue to Daily weight with aggressive diuresis. PCP to follow-up abnormal BMI. lovenox for DVT prophylaxis, Protonix for GI bleeding prophylaxis. DNR. Plan discussed with the patient. Rounded on patient after nurse practitioner. Personally examined and interviewed patient. Agree with exam findings and care plan as documented.
[2023-07-25] MEDS: CEFTRIAXONE SODIUM 2 GM in 0.9 % SODIUM CHLORIDE 100 ML IV (22:25)
[2023-07-25 22:40] VITALS: BP 136/78; PULSE 102; RESP 15; TEMP 37.1; O2SAT 97
--- NOTE | 2023-07-25 22:41 | PC.NURSE ---
Report called to Nadira MCNEIL
--- NOTE | 2023-07-25 23:09 | PC.NURSE ---
Patient arrived to floor via stretcher from ED at 22:57.
[2023-07-25 23:12] VITALS: BP 136/78; PULSE 102; RESP 14; TEMP 37.1; O2SAT 94
[2023-07-25 23:30] VITALS: BMI 74.7
[2023-07-26] VITALS: PULSE 96
[2023-07-26 00:26] LABS: Microscopic, Urine URINE MICROSCOPIC (MICROSCOPIC)
[2023-07-26] MEDS: OXYCODONE 10MG W/APAP 325MG TABLET 1 EACH PO ×2 (00:26→09:01)
[2023-07-26 00:28] LABS: Appearance,Urine CLEAR (Clear); Bilirubin,Urine Negative (Negative); Blood, Urine Negative (Negative); Color,Urine YELLOW (Yellow); Glucose,Urine (UA) Negative (Negative); Ketones,Urine Negative (Negative); Leukocyte Esterase,Urine Negative (Negative); Nitrate,Urine Negative (Negative); Protein,Urine Negative (Negative); Specific Gravity, Urine 1.025 (1.005-1.030); Urobilinogen,Urine 0.2 EU/dl (0.2)
[2023-07-26] MEDS: diazePAM 5MG TABLET 7.5 MG PO ×2 (00:34→09:01)
[2023-07-26] MEDS: GABAPENTIN 800MG TABLET 800 MG PO ×3 (00:34→12:17)
[2023-07-26] MEDS: AZITHROMYCIN 500 MG in 0.9 % SODIUM CHLORIDE 250 ML 250 MG IV (00:34)
[2023-07-26] MEDS: TRAZODONE 50MG TABLET 100 MG PO (00:39)
[2023-07-26 00:45] LABS: Bacteria,Urine Trace /lpf; Squamous Epithelial Cell,Urine Occasional #/hpf (0-5); WBC,Urine Occasional #/hpf (0-3)
[2023-07-26 00:52] LABS: Troponin I < 0.01 ng/ml (0.00-0.034)
[2023-07-26] MEDS: SUMAtriptan SUCCINATE 25MG TABLET 100 MG PO ×2 (00:55→08:54)
[2023-07-26] MEDS: DOXYCYCLINE HYCLATE 100 MG in 0.9 % SODIUM CHLORIDE 250 ML 166.667000000000002 MG IV (00:56)
[2023-07-26 04:00] VITALS: BP 139/78; PULSE 105; RESP 18; TEMP 37; O2SAT 98; BMI 74.7
[2023-07-26 04:01] LABS: Troponin I < 0.01 ng/ml (0.00-0.034)
[2023-07-26 06:15] VITALS: PULSE 96; PULSE 99; O2SAT 93
[2023-07-26] MEDS: IPRATROPIUM/ALBUTEROL 3 ML NEB IH (06:15)
[2023-07-26] MEDS: humaLOG 100 UNITS/ML 3ML VIAL (SSI) SQ (06:27)
[2023-07-26 06:49] LABS: POC Glucose,Bedside 153 (70-110)
[2023-07-26 06:56] LABS: Basophils % 0.1 % (0.1-2.0); Hematocrit 41.8 % (37.0-47.0); Hemoglobin 13.3 g/dL (12.2-16.2); Lymphocytes # 0.8 K/mm3 (0.7-4.5); Lymphocytes % 7.6 % (10-50); Mean Corpuscular HGB Conc 31.9 g/dL (31.8-35.4); Mean Corpuscular Hemoglobin 28.7 pg (27.0-31.2); Mean Corpuscular Volume 89.7 fl (81-99); Mean Platelet Volume 8.2 fl (7.4-10.4); Monocytes # 0.2 K/mm3 (0.1-1.0); Neutrophils # 9.2 K/mm3 (1.8-7.8); Neutrophils % 90.3 % (37.0-80.0); Platelet Count 239 K/mm3 (142-424); Red Blood Count 4.65 M/mm3 (4.20-5.40); Red Cell Distribution Width 15.9 % (11.5-17.5); White Blood Count 10.2 K/mm3 (4.8-10.8)
[2023-07-26 07:03] LABS: MANUAL DIFFERENTIAL MANUAL DIFFERENTIAL (MANUAL DIFF)
[2023-07-26 07:26] LABS: Chloride 104 mmol/L (98-107); Potassium 5.5 mmoL/L (3.5-5.1); Sodium 141 mmol/L (136-145)
[2023-07-26 07:28] LABS: Alanine Aminotransferase 24 U/L (12-78); Aspartate Amino Transferase 28 U/L (14-36); Blood Urea Nitrogen 16 mg/dl (7-17); Creatinine Clearance Estimated 51 mL/min (50-200); Estimated Glomerular Filt Rate 59 ml/min (>60); GFR (African American) 71 ML/MIN (>60)
[2023-07-26 07:29] LABS: Albumin Level 4.1 g/dl (3.5-5.0); Alkaline Phosphatase 85 U/L (38-126); Anion Gap 6.5 mEq/L (5-15); Bilirubin,Total 0.2 mg/dl (0.2-1.3); Calcium 8.6 mg/dl (8.4-10.2); Carbon Dioxide 36 mmol/L (22.0-30.0); Chol/HDL Ratio 4.3 (1-3.5); Cholesterol 193 mg/dl (140-200); Globulin 4.1 g/dL (1.3-3.2); Glucose 162 mg/dl (74-100); HDL Cholesterol 45 mg/dl (40-60); Total Protein,Serum 8.2 g/dl (6.3-8.2); Triglycerides 55 mg/dl (30-150); VLDL Cholesterol 11 mg/dL (0-40)
[2023-07-26 07:40] LABS: Direct LDL Cholesterol 99.64 mg/dL (100-129)
[2023-07-26 08:00] VITALS: BP 135/73; PULSE 100; PULSE 94; RESP 16; TEMP 36.6; O2SAT 94
--- NOTE | 2023-07-26 08:25 | [facility].PHAINT1 ---
Pharmacy Intervention Comments: Verified home medications using external fill history and spoke with patient at bedside. Notably, she said they recently decreased her diazepam from 10mg BID to 7.5mg BID.
[2023-07-26] MEDS: ENOXAPARIN 40MG/0.4ML SYRINGE 40 MG SQ (08:52)
[2023-07-26] MEDS: CYCLOBENZAPRINE 10MG TABLET 5 MG PO ×2 (08:52→12:17)
[2023-07-26] MEDS: lamoTRIgine 100MG TABLET 100 MG PO (08:53)
[2023-07-26] MEDS: dilTIAZem ER 120MG CAPSULE 120 MG PO (08:53)
[2023-07-26] MEDS: SPIRONOLACTONE 25MG TABLET 50 MG PO (08:53)
[2023-07-26] MEDS: LISINOPRIL 10MG TABLET 10 MG PO (08:53)
[2023-07-26] MEDS: TORSEMIDE 20MG TABLET 100 MG PO (08:54)
[2023-07-26] MEDS: LEVOTHYROXINE 25MCG (0.025MG) TAB 25 MCG PO (08:54)
[2023-07-26] MEDS: DULOXETINE 30MG CAPSULE.DR 60 MG PO (08:54)
[2023-07-26] MEDS: LEVOFLOXACIN/D5W 750 MG/150 ML 750 MG/150 ML PIGGYBACK 100 MG IV (09:10)
[2023-07-26 09:15] LABS: Lymphocytes % 10 % (10-50); Neutrophils % 82 % (42-76); Nucleated Red Blood Cells 1; Promyelocytes % 1 %; Total Cells Counted 100
[2023-07-26 09:22] LABS: Anisocytosis 1+; Basophilic Stippling 1+; Macrocytosis 1+; Platelet Estimate Normal; Polychromasia 1+
--- NOTE | 2023-07-26 10:01 | P.CONS_ITS ---
History of Present Illness History of present illness: Ms. Badillo is a 48-year-old female history of sleep apnea obesity hypoventilation chronic respiratory failure moderate persistent asthma transverse tracheostomy in July 2021 presented to the ER with worsening respiratory and found to be in hypercarbic respiratory failure and pulmonary was consulted for further evaluation and management. [facility] Disclaimer: The information contained in this section may have been updated after the patient was seen, as this information can be updated by other users. Medical History (Updated 07/26/23 @ 12:23 by Tian Diaz MD) Abnormal stress test Acute and chronic respiratory failure Acute and chronic respiratory failure Acute and chronic respiratory failure with hypercapnia Acute and chronic respiratory failure with hypercapnia Acute on chronic diastolic heart failure Acute on chronic diastolic heart failure Angina, class III Anxiety Asthma Asthma Cellulitis of right lower extremity Chest pain Chest pain Chronic respiratory failure with hypercapnia Congestive heart failure COPD (chronic obstructive pulmonary disease) COVID-19 Depression Diastolic congestive heart failure Diastolic dysfunction Dizziness Dyspnea Edema Elevated d-dimer Generalized anxiety disorder History of asthma History of ectopic History of hyperkalemia History of sleep apnea History of smoking 30 or more pack years HTN (hypertension) Hypothyroidism (~11/21/17) Insomnia Neuropathy Obesity Obesity hypoventilation syndrome IRLANDA (obstructive sleep apnea) PAC (premature atrial contraction) Paranoid schizophrenia Pneumonia Pneumonia PTSD (post-traumatic stress disorder) Recurrent major depression resistant to treatment Respiratory failure with hypoxia and hypercapnia Right lower lobe pneumonia Severe sepsis Sinus tachycardia Sleep apnea SOB (shortness of breath) SOB (shortness of breath) on exertion Tobacco abuse Tracheostomy care Tracheostomy dependent Tracheostomy in place Uses bilevel positive airway pressure (BPAP) ventilation at home Surgical History History of colonoscopy History of hysterectomy History of left knee surgery Family History Other No significant family history Social History Smoking Status: Former smoker tobacco type: cigarettes packs per day: 1 smoking status stop date: 02/2022 alcohol intake: former substance use type: marijuana current occupational status: disabled Travel in the last 8 weeks: None household members: family housing: apartment number of children: 0 current occupational exposures/hazards: No caffeine: Yes Review of Systems Constitutional Constitutional: Reports anorexia, Reports body ache(s) and Reports fatigue Eyes Eyes: Denies eye discharge, Denies dry eyes, Denies irritation and Denies itchy eyes ENT Ears, Nose, Mouth, and Throat: Denies epistaxis, Denies facial pain, Denies lip swelling and Denies throat swelling *Cardiovascular Cardiovascular: Reports dyspnea, Reports dyspnea on exertion, Reports leg edema, Reports orthopnea and Reports pedal edema *Respiratory Respiratory: Denies change in phlegm color, Reports chest congestion, Reports cough, Reports dyspnea, Reports dyspnea on exertion, Denies excessive phlegm production and Reports wheezing *Gastrointestinal Gastrointestinal: Denies abdominal pain, Denies belching and Denies cramping *Musculoskeletal Musculoskeletal: Reports back pain, Reports myalgias and Reports other (No small joint swelling or Pain) Psychiatric Psychiatric: Denies homicidal ideation and Denies suicidal ideation Endocrine Endocrine: Reports fatigue and Denies heat intolerance Hematologic/Lymphatic Hematologic/Lymphatic: Denies easy bleeding and Denies lymphadenopathy Allergic/Immunologic Allergic/Immunologic: Denies itchy eyes, Denies lip swelling, Denies throat swelling and Reports wheezing Pulmonology Exam Inpatient Vital signs and Labs for Last 24 Hours: Temp Pulse Resp BP Pulse Ox O2 Del Method O2 Flow Rate 97.8 F 94 H 16 135/73 94 L Nasal Cannula 3 07/26/23 08:00 07/26/23 08:00 07/26/23 08:00 07/26/23 08:00 07/26/23 08:00 07/26/23 08:00 07/26/23 08:00 FiO2 40 07/26/23 06:15 Laboratory Results - last 24 hr 07/25/23 21:12: WBC 9.6, RBC 4.56, Hgb 12.5, Hct 40.8, MCV 89.6, MCH 27.5, MCHC 30.7 L, RDW 15.9, Plt Count 250, MPV 8.2, Neut % (Auto) 76.4, Lymph % (Auto) 18.2, [place] % (Auto) 3.8, Eos % (Auto) 1.2, Baso % (Auto) 0.4, Neut # (Auto) 7.4, Lymph # (Auto) 1.8, [place] # (Auto) 0.4, Eos # (Auto) 0.1, Baso # (Auto) 0.0, S odium 138, Potassium 5.0, Chloride 105, Carbon Dioxide 34 H, Anion Gap 4.0 L, BUN 16, Creatinine 0.80, Estimated Creat Clear 64, Estimated GFR 76, Est GFR ( Amer) 92, Glucose 138 H, Lactate 1.5, Calcium 8.7, Total Bilirubin 0.2, AST 24, ALT 20, Alkaline Phosphatase 83, Troponin I < 0.01, NT-Pro-B Natriuret Pep 59.8, Total Protein 7.9 D, Albumin 4.0, Globulin 3.9 H, Albumin/Globulin Ratio 1.0 L 07/25/23 21:15: VBG pH 7.29 L, VBG pCO2 60.3 H, VBG pO2 77.6 H, VBG HCO3 28.4, VBG Total CO2 30.3 H, VBG O2 Saturation 95.3 H, VBG Base Excess 1.8 07/25/23 21:31: Chlamy pneumoniae PCR TNP, Adenovirus (PCR) Not detected, B. pertussis DNA (PCR) TNP, Coronavirus OC43 (PCR) Not detected, Coronavirus HKU1 (PCR) Not detected, Coronavirus 229E (PCR) Not detected, SARS-CoV-2 (PCR) Not detected, Coronavirus NL63 (PCR) Not detected, Human Metapneumovir PCR Not detected, Influenza A (H1) PCR Not detected, Influ A (H1N1/09) PCR Not detected, Influenza A (H3) PCR Not detected, Influenza Type A (PCR) Not detected, Influenza Type B (PCR) Not detected, M. pneumoniae (PCR) TNP, Parainfluenza 1 (PCR) Not detected, Parainfluenza 2 (PCR) Not detected, Parainfluenza 3 (PCR) Not detected, Parainfluenza 4 (PCR) Not detected, RSV (PCR) Not detected, Entero/Rhino (PCR) Not detected 07/26/23 00:10: Urine Color Yellow, Urine Appearance Clear, Urine pH 6.0, Ur Specific [place] 1.025, Urine Protein Negative, Urine Glucose (UA) Negative, Urine Ketones Negative, Urine Blood Negative, Urine Nitrate Negative, Urine Bilirubin Negative, Urine Urobilinogen 0.2, Ur Leukocyte Esterase Negative, Urine RBC None, Urine WBC Occasional, Ur Squamous Epith Cells Occasional, Urine Bacteria Trace 07/26/23 00:21: Troponin I < 0.01 07/26/23 03:20: Troponin I < 0.01 07/26/23 06:05: POC Glucose 153 H 07/26/23 06:15: WBC 10.2, RBC 4.65, Hgb 13.3, Hct 41.8, MCV 89.7, MCH 28.7, MCHC 31.9, RDW 15.9, Plt Count 239, MPV 8.2, Neut % (Auto) 90.3 H, Lymph % (Auto) 7.6 L, [place] % (Auto) 2.0, Eos % (Auto) 0.0 L, Baso % (Auto) 0.1, Neut # (Auto) 9.2 H , Lymph # (Auto) 0.8, [place] # (Auto) 0.2, Eos # (Auto) 0.0, Baso # (Auto) 0.0, Total Counted 100, Neutrophils % (Manual) 82 H, Band Neutrophils % 7.0, Lymphocytes % (Manual) 10, Promyelocytes % 1, Nucleated RBCs 1, Platelet Michelle mate Normal, Polychromasia 1+, Basophilic Stippling 1+, Anisocytosis 1+, Macrocytosis 1+, Sodium 141, Potassium 5.5 H, Chloride 104, Carbon Dioxide 36 H, Anion Gap 6.5, BUN 16, Creatinine 1.00 D, Estimated Creat Clear 51, Estimated GFR 59, Est GFR ( Amer) 71 D, Glucose 162 H, Calcium 8.6, Total Bilirubin 0.2, AST 28, ALT 24, Alkaline Phosphatase 85, Total Protein 8.2, Album in 4.1, Globulin 4.1 H, Albumin/Globulin Ratio 1.0 L, Triglycerides 55, Cholesterol 193, LDL Cholesterol Direct 99.64 L, VLDL Cholesterol 11, HDL Cholesterol 45, Cholesterol/HDL Ratio 4.3 H I & O for Labs for Last 24 Hours: Intake & Output 07/23/23 07/24/23 07/25/23 07/26/23 23:59 23:59 23:59 23:59 Intake Total 950 / 950 Output Total 1400 / 1400 Balance -450 / -450 Weight 396 lb 1.6 oz 396 lb 1.602 oz Microbiology Reports for the Last 24 Hours: Microbiology 01/02/23 11:00 Sputum - Endotracheal Tube Aspirate Gram Stain - Final 01/02/23 11:00 Sputum - Endotracheal Tube Aspirate Sputum Culture - Preliminary Constitutional: Present moderate distress Head: Present normocephalic and atraumatic ENT: Present normal exam, normal oropharynx and mucous membranes moist Neck: Present normal inspection and full ROM Respiratory: Present respiratory distress, rhonchi, crackles and able to speak in complete sentences; Absent wheezes Cardiac: Present S1/S2, Tachycardia and radial pulses present GI: Present soft and distention; Absent tenderness or guarding Rectal (female): Present deferred (female): Present deferred Skin: Present intact; Absent cyanosis or jaundice Neuro: Present alert, awake and oriented x 3 Extremities: Present normal inspection; Absent clubbing or cyanosis Psychiatric: Present normal affect and cooperative Meds Home Medications and Allergies Home Medications Medication Instructions Recorded Confirmed Type [facility] 07/12/23 History Verio test strips) formoterol fumarate 20 mcg/2 mL 20 mcg inhalation BID Copd 01/01/23 07/25/23 History solution for nebulization lancets 33 gauge ([facility] 01/01/23 07/12/23 History Plus Lancet) lisinopril 10 mg tablet 10 mg PO DAILY High Blood Pressure 01/01/23 07/25/23 History torsemide 100 mg tablet 100 mg PO DAILY Fluid 01/01/23 07/25/23 History diltiazem HCl 120 mg 120 mg PO DAILY Heart Rhythm 01/02/23 07/25/23 History capsule,extended release 24 hr, controlled (DILT-XR) budesonide 0.5 mg/2 mL suspension 0.5 mg (2 mL) inhalation Q12H #180 02/09/23 07/25/23 Rx for nebulization mL ipratropium 0.5 mg-albuterol 3 mg 3 ml inhalation QID PRN shortness 02/09/23 07/25/23 Rx (2.5 mg base)/3 mL nebulization of breath or wheezing 90 days #270 soln mL fluticasone propionate 50 1 spray intranasal DAILY #16 grams 02/17/23 07/25/23 Rx mcg/actuation nasal spray,suspension (Flonase Allergy Relief) promethazine 25 mg tablet 25 mg PO TID PRN nausea and 03/30/23 07/25/23 Rx vomiting #30 tabs albuterol sulfate 90 mcg/actuation 1 puff inhalation Q6HP PRN 05/16/23 07/25/23 Rx aerosol inhaler (ProAir HFA) Shortness Of Breath #8.5 grams spironolactone 50 mg tablet 50 mg PO DAILY #90 tabs 05/17/23 07/25/23 Rx (Aldactone) sumatriptan succinate 100 mg tablet 100 mg PO NEEDED PRN Migraine 05/19/23 07/25/23 Rx Headache #10 tabs duloxetine 30 mg capsule,delayed 60 mg PO DAILY Mood #30 caps 05/24/23 07/25/23 Rx release lamotrigine 100 mg tablet 100 mg PO DAILY mood #30 tabs 05/24/23 07/25/23 Rx ziprasidone HCl 20 mg capsule 20 mg PO BID Mood #60 caps 05/24/23 07/26/23 Rx cyclobenzaprine 5 mg tablet 5 mg PO TID Muscle relaxer 90 days 07/12/23 07/25/23 Rx #270 tabs dextromethorphan-guaifenesin 5 10 ml PO Q4-6H PRN cough #500 mL 07/12/23 07/25/23 Rx mg-100 mg/5 mL oral liquid (Robitussin Cough-Chest Congestion DM) diazepam 5 mg tablet 7.5 mg PO BID anxiety 30 days #90 07/12/23 07/25/23 Rx tabs gabapentin 800 mg tablet 800 mg PO TID Neuropathy #90 tabs 07/12/23 07/25/23 Rx benzonatate 200 mg capsule 200 mg PO TID PRN Cough 07/25/23 07/25/23 History levothyroxine 25 mcg tablet 25 mcg PO DAILY 07/25/23 07/25/23 History omeprazole 40 mg capsule,delayed 40 mg PO BID 07/25/23 07/25/23 History release oxycodone-acetaminophen 10 mg-325 1 tab PO TID PRN PAIN 07/25/23 07/25/23 History mg tablet (Percocet) trazodone 100 mg tablet 100 mg PO HS 07/25/23 07/25/23 History cholecalciferol (vitamin D3) 125 10,000 unit PO DAILY 07/26/23 07/26/23 History mcg (5,000 unit) capsule magnesium oxide 400 mg (241.3 mg 400 mg PO DAILY 07/26/23 07/26/23 History magnesium) tablet mupirocin 2 % topical ointment 1 applic topical BID 07/26/23 07/26/23 History rimegepant 75 mg disintegrating 75 mg PO NEEDED PRN Migraine 07/26/23 07/26/23 History tablet (Nurtec ODT) Headache New Prescriptions to Start Prescriptions: Allergies Allergy/AdvReac Type Severity Reaction Status Date / Time doxycycline Allergy Severe Blister Verified 07/12/23 10:38 amoxicillin AdvReac Verified 07/12/23 10:38 nitrofurantoin AdvReac Verified 07/12/23 10:38 [From Macrobid] Results Laboratory Findings 07/26/23 06:15 07/26/23 06:15 Abnormal lab findings: Abnormal Labs 07/25/23 07/25/23 07/26/23 21:12 21:15 06:05 MCHC 30.7 L Neut % (Auto) Lymph % (Auto) Eos % (Auto) Neut # (Auto) Neutrophils % (Manual) VBG pH 7.29 L VBG pCO2 60.3 H VBG pO2 77.6 H VBG Total CO2 30.3 H VBG O2 Saturation 95.3 H Potassium Carbon Dioxide 34 H Anion Gap 4.0 L Glucose 138 H POC Glucose 153 H Globulin 3.9 H Albumin/Globulin Ratio 1.0 L LDL Cholesterol Direct Cholesterol/HDL Ratio 07/26/23 06:15 MCHC Neut % (Auto) 90.3 H Lymph % (Auto) 7.6 L Eos % (Auto) 0.0 L Neut # (Auto) 9.2 H Neutrophils % (Manual) 82 H VBG pH VBG pCO2 VBG pO2 VBG Total CO2 VBG O2 Saturation Potassium 5.5 H Carbon Dioxide 36 H Anion Gap Glucose 162 H POC Glucose Globulin 4.1 H Albumin/Globulin Ratio 1.0 L LDL Cholesterol Direct 99.64 L Cholesterol/HDL Ratio 4.3 H Assessment and Plan *Assessment and plan (1) IRLANDA (obstructive sleep apnea): Status: Acute Category: Medical Code(s): G47.33 - Obstructive sleep apnea (adult) (pediatric) (2) Acute and chronic respiratory failure with hypercapnia: Status: Acute Category: Medical Code(s): J96.22 - Acute and chronic respiratory failure with hypercapnia Plan Ms. Badillo is a 48-year-old female history of sleep apnea obesity hypoventilation chronic respiratory failure moderate persistent asthma transverse tracheostomy in July 2021 presented to the ER with worsening respiratory and found to be in hypercarbic respiratory failure and pulmonary was consulted for further evaluation and management. VBG upon admission showed hypercarbic respiratory failure with a pCO2 of 62.8 with a pH of 7.29. No evidence of hypoxic respiratory failure noted. Chest x-ray upon admission acute airspace disease. Suboptimal exposure. Concerning for lower lobe airspace disease/breast shadows. Afebrile. Hemodynamically stable. No evidence of leukocytosis upon admission. Patient was initiated on ceftriaxone azithromycin upon admission along with DuoNebs every 6 hours. Patient admits worsening respiratory along with cough, and worsening lower extremity swelling on admission. On examination today does not appears to be in any severe respiratory stress. Chest clear with no significant wheezing or significant pitting edema noted on examination. Repeat ABG continue to show hypercarbic respiratory failure we will follow with ABG prior to discharge. Plan: F/u ABG Continue oxygen supplementation via trach collar to maintain O2 saturation goal of 90 to 95% Continue budesonide and formoterol nebulization every 12 hours scheduled basis along with DuoNebs every 6 hours on as-needed basis Patient requesting a referral for ENT at [facility], will schedule it upon discharge. Antibiotics can be weaned to levofloxacin 750 mg daily x 3 days upon discharge Thank you for involving pulmonary in this patient care. Will continue to follow.
--- NOTE | 2023-07-26 10:04 | XR_ITS ---
FINAL REPORT CLINICAL HISTORY: PNM/Hypoxia COMPARISON: 07/25/2023 FINDINGS: Tracheostomy tube is present. The heart size is mildly enlarged. The mediastinum is normal. There is no focal infiltrate or edema. Chronic changes are noted. The lungs are little underinflated. There are no pleural effusions. There is no pneumothorax. There is no osseous abnormality. IMPRESSION: Chronic changes without acute cardiopulmonary process Reviewed, Interpreted and Dictated by Lazaro Pal MD Transcribed by Fay Joy Authenticated and . [facility]
[2023-07-26 11:47] LABS: VBG Base Excess 4.9 mmol/L (-2.4-2.3); VBG HCO3 31.6 mmol/L (23-30); VBG Oxygen Saturation 96.8 % (50-70); VBG PH 7.28 mmol/L (7.31-7.41); VBG PO2 88.9 mmol/L (28-40); VBG Total CO2 33.7 mmol/L (23-27)
[2023-07-26 11:48] LABS: POC Glucose,Bedside 155 (70-110)
[2023-07-26 11:48] LABS: VBG PCO2 68.8 mmol/L (35-51)
--- NOTE | 2023-07-26 11:57 | P.DS_ITS ---
General Admission date:: 07/25/23 Discharge date: 07/26/23 HPI HPI HPI: This is a morbidly obese 47-year-old female with a PMHx of chronic hypoventilation syndrome, respiratory failure post COVID, trach dependance, on home oxygen 3L, MDD, migraine, hypothyroidism, anxiety disorder, diastolic heart failure, normal EF, chronic bilateral lymphedema and a former smoker quitted 5 months ago, who presented today with worsening shortness of breath, he has had increasing and worsening cough with sputum production, with foul odor out of her trach site. She also c/o worsening peripheral edema that does not respond to home diuresis regimen. She is on home torsemide and spironolactone. Patient c/o being gaining weight and she blamed to fluid overload. She also states she has a severe headache and body aches, with intermittent fevers. She is been having this on and off for the last 4 months . Today she referred temp up to 101 at home. Admitted for further management and treatment. Hospital Course Hospital Course Hospital Course: Morbidly obese 47-year-old female with a PMHx of chronic hypoventilation sy ndrome, respiratory failure post COVID, trach dependance, on home oxygen 3L, MDD, migraine, hypothyroidism, anxiety disorder, diastolic heart failure, normal EF, chronic bilateral lymphedema and a former smoker quitted 5 months ago, who presented today with worsening shortness of breath, he has had increasing and worsening cough with sputum production. Upon arrival, patient was satting in the high 80's. However oxygen demand has not increased. Initial work-up included checks x-ray, I personally reviewed. There is no signs of focal pneumonia, concerning for bilateral basal atelectasis versus edema. Lab was obtained. Grossly unremarkable. ABG was showing respiratory acidosis with hypercapnia no hypoxia. findings discussed with the ER doctor. Agreed for admission for further treatment and management. Remained stable during admission. Pulmonology consulted and evaluated patient by morning. Patient feeling better with normal labs. Repeat blood gas showed compensated respiratory acidosis. Significant decrease in secretions during admission. She is at her baseline level of function, stable for discharge home. Problems addressed as follows: -Acute on chronic hypercapnic respiratory failure, likely secondary to fluid overload and obesity hypoventilation syndrome conditions to r/o CAP, or CHF exacerbation or deteriorated valvular disease: Admitted for monitoring and respiratory support. Patient necessitated 3 L oxygen while sleeping. While awake was been on room air. Concern for mixed compliance with her Trelegy at home. Pulmonology consulted and assisted with care. Recommended continuing budesonide/formoterol during admission. Repeat ABG in the morning showed chronic hypercarbia with compensated pH. Pulmonology recommends following up in 2 to 4 weeks with their clinic to evaluate her noninvasive ventilation device. Patient was initially started on ceftriaxone and azithromycin for bronchitis and increased sputum production. Secretions improved by morning. Will continue Levaquin at discharge for total of 3 days. Otherwise stable and at baseline status. Discharged home to continue home breathing treatment regimen and antibiotics -Peripheral edema: She is on 100 mg of torsemide and spironolactone at home. resumed this regimen with good response. Monitor strict output with Kumar catheter. Labs remained stable. Patient breathing better. Did not have significant pitting edema on exam. Her morbid obesity complicates exam. -Tracheostomy dependance. obesity hypoventilation syndrome. Respiratory failure s/p COVID. Educated patient for trach self-care, asepsis technique reinforced. Continue home BiPAP with 3 L supplemental oxygen at night. -Diastolic congestive heart failure: Not appearing on exacerbation however there is a visible chronic fluid overload. Xray was done With no effusions or focal consolidation. Last echocardiogram 12/2022 was showing preserved ejection fraction, with some mitral and tricuspid regurgitation. - MDD with anxierty: resume diazepam, trazadone - Continue home Synthroid regimen for hypothyroid on home synthroid - Morbid obesity complicates all aspects of her care. Would benefit from consideration and of GLP 1 therapy to promote and facilitate weight loss. Spent 30 minutes in discharge counseling, documentation, chart review, and direct care with patient. Exam Data for Last 24 hours Vital signs and Labs for Last 24 Hours: Temp Pulse Resp BP Pulse Ox O2 Del Method O2 Flow Rate 97.8 F 94 H 16 135/73 94 L Nasal Cannula 3 07/26/23 08:00 07/26/23 08:00 07/26/23 08:00 07/26/23 08:00 07/26/23 08:00 07/26/23 11:00 07/26/23 11:00 FiO2 40 07/26/23 06:15 Laboratory Results - last 24 hr 07/25/23 21:12: WBC 9.6, RBC 4.56, Hgb 12.5, Hct 40.8, MCV 89.6, MCH 27.5, MCHC 30.7 L, RDW 15.9, Plt Count 250, MPV 8.2, Neut % (Auto) 76.4, Lymph % (Auto) 18.2, Griggs % (Auto) 3.8, Eos % (Auto) 1.2, Baso % (Auto) 0.4, Neut # (Auto) 7.4, Lymph # (Auto) 1.8, Griggs # (Auto) 0.4, Eos # (Auto) 0.1, Baso # (Auto) 0.0, Sodium 138, Potassium 5.0, Chloride 105, Carbon Dioxide 34 H, Anion Gap 4.0 L, BUN 16, Creatinine 0.80, Estimated Creat Clear 64, Estimated GFR 76, Est GFR ( Amer) 92, Glucose 138 H, Lactate 1.5, Calcium 8.7, Total Bilirubin 0.2, AST 24, ALT 20, Alkaline Phosphatase 83, Troponin I < 0.01, NT-Pro-B Natriuret Pep 59.8, Total Protein 7.9 D, Albumin 4.0, Globulin 3.9 H, Albumin/Globulin Ratio 1.0 L 07/25/23 21:15: VBG pH 7.29 L, VBG pCO2 60.3 H, VBG pO2 77.6 H, VBG HCO3 28.4, VBG Total CO2 30.3 H, VBG O2 Saturation 95.3 H, VBG Base Excess 1.8 07/25/23 21:31: Chlamy pneumoniae PCR TNP, Adenovirus (PCR) Not detected, B. pertussis DNA (PCR) TNP, Coronavirus OC43 (PCR) Not detected, Coronavirus HKU1 (PCR) Not detected, Coronavirus 229E (PCR) Not detected, SARS-CoV-2 (PCR) Not detected, Coronavirus NL63 (PCR) Not detected, Human Metapneumovir PCR Not detected, Influenza A (H1) PCR Not detected, Influ A (H1N1/09) PCR Not detected, Influenza A (H3) PCR Not detected, Influenza Type A (PCR) Not detected, Influenza Type B (PCR) Not detected, M. pneumoniae (PCR) TNP, Parainfluenza 1 (PCR) Not detected, Parainfluenza 2 (PCR) Not detected, Parainfluenza 3 (PCR) Not detected, Parainfluenza 4 (PCR) Not detected, RSV (PCR) Not detected, Enter o/Rhino (PCR) Not detected 07/26/23 00:10: Urine Color Yellow, Urine Appearance Clear, Urine pH 6.0, Ur Specific [place] 1.025, Urine Protein Negative, Urine Glucose (UA) Negative, Urine Ketones Negative, Urine Blood Negative, Urine Nitrate Negative, Urine Bilirubin Negative, Urine Urobilinogen 0.2, Ur Leukocyte Esterase Negative, Urine RBC None, Urine WBC Occasional, Ur Squamous Epith Cells Occasional, Urine Bacteria Trace 07/26/23 00:21: Troponin I < 0.01 07/26/23 03:20: Troponin I < 0.01 07/26/23 06:05: POC Glucose 153 H 07/26/23 06:15: WBC 10.2, RBC 4.65, Hgb 13.3, Hct 41.8, MCV 89.7, MCH 28.7, MCHC 31.9, RDW 15.9, Plt Count 239, MPV 8.2, Neut % (Auto) 90.3 H, Lymph % (Auto) 7.6 L, Griggs % (Auto) 2.0, Eos % (Auto) 0.0 L, Baso % (Auto) 0.1, Neut # (Auto) 9.2 H , Lymph # (Auto) 0.8, Griggs # (Auto) 0.2, Eos # (Auto) 0.0, Baso # (Auto) 0.0, Total Counted 100, Neutrophils % (Manual) 82 H, Band Neutrophils % 7.0, Lymphocytes % (Manual) 10, Promyelocytes % 1, Nucleated RBCs 1, Platelet Estimate Normal, Polychromasia 1+, Basophilic Stippling 1+, Anisocytosis 1+, Macrocytosis 1+, Sodium 141, Potassium 5.5 H, Chloride 104, Carbon Dioxide 36 H, Anion Gap 6.5, BUN 16, Creatinine 1.00 D, Estimated Creat Clear 51, Estimated GFR 59, Est GFR ( Amer) 71 D, Glucose 162 H, Calcium 8.6, Total Bilirubin 0.2, AST 28, ALT 24, Alkaline Phosphatase 85, Total Protein 8.2, Albumin 4.1, Globulin 4.1 H, Albumin/Globulin Ratio 1.0 L, Triglycerides 55, Cholesterol 193, LDL Cholesterol Direct 99.64 L, VLDL Cholesterol 11, HDL Cholesterol 45, Cholesterol/HDL Ratio 4.3 H 07/26/23 11:15: VBG pH 7.28 L, VBG pCO2 68.8 H, VBG pO2 88.9 H, VBG HCO3 31.6 H, VBG Total CO2 33.7 H, VBG O2 Saturation 96.8 H, VBG Base Excess 4.9 H 07/26/23 11:38: POC Glucose 155 H I & O for Last 24 hours: Intake & Output 07/23/23 07/24/23 07/25/23 07/26/23 23:59 23:59 23:59 23:59 Intake Total 950 / 950 Output Total 1400 / 1400 Balance -450 / -450 Weight 179.668 kg 179.668 kg Constitutional Constitutional: no acute distress, morbidly obese and chronically ill appearing *Routine HEENT Exam Head: Present normocephalic Eye: Present EOMI and PERRL ENT: Present mucous membranes moist Comments: Cushingoid face, tracheostomy in place with no drainage *Routine Neck Exam Neck: Present supple; Absent lymphadenopathy Comments: Trach collar in place with passy rayo valve *Routine Respiratory Exam Respiratory: Present CTA bilaterally and distant breath sounds; Absent prolonged expiratory phase, rhonchi or wheezes *Routine Cardiovascular Exam Cardiovascular: Present RRR; Absent murmur *Routine Abdominal Exam Abdominal: Present soft and normoactive bowel sounds; Absent tenderness *Routine Rectal Exam Patient deferred: visual exam *Routine Exam Patient deferred: external exam *Routine Extremities Exam Extremities: Present edema; Absent cyanosis or clubbing *Routine Skin Exam Skin: Present wounds; Absent rash *Routine Neurological Exam Neurological: Present alert, oriented X3 and moving all extremities; Absent altered mental status Routine Psychiatric Exam Psychiatric: Present normal affect Results Data Completed and Pending Labs on day of discharge: Labs from last 24 hours 07/26/23 07/26/23 07/26/23 11:38 11:15 06:15 WBC 10.2 RBC 4.65 Hgb 13.3 Hct 41.8 MCV 89.7 MCH 28.7 MCHC 31.9 RDW 15.9 Plt Count 239 MPV 8.2 Neut % (Auto) 90.3 H Lymph % (Auto) 7.6 L Griggs % (Auto) 2.0 Eos % (Auto) 0.0 L Baso % (Auto) 0.1 Neut # (Auto) 9.2 H Lymph # (Auto) 0.8 Griggs # (Auto) 0.2 Eos # (Auto) 0.0 Baso # (Auto) 0.0 Total Counted 100 Neutrophils % (Manual) 82 H Band Neutrophils % 7.0 Lymphocytes % (Manual) 10 Promyelocytes % 1 Nucleated RBCs 1 Platelet Estimate Normal Polychromasia 1+ Basophilic Stippling 1+ Anisocytosis 1+ Macrocytosis 1+ VBG pH 7.28 L VBG pCO2 68.8 H VBG pO2 88.9 H VBG HCO3 31.6 H VBG Total CO2 33.7 H VBG O2 Saturation 96.8 H VBG Base Excess 4.9 H Sodium 141 Potassium 5.5 H Chloride 104 Carbon Dioxide 36 H Anion Gap 6.5 BUN 16 Creatinine 1.00 D Estimated Creat Clear 51 Estimated GFR 59 Est GFR ( Amer) 71 D Glucose 162 H POC Glucose 155 H Lactate Calcium 8.6 Total Bilirubin 0.2 AST 28 ALT 24 Alkaline Phosphatase 85 Troponin I NT-Pro-B Natriuret Pep Total Protein 8.2 Albumin 4.1 Globulin 4.1 H Albumin/Globulin Ratio 1.0 L Triglycerides 55 Cholesterol 193 LDL Cholesterol Direct 99.64 L VLDL Cholesterol 11 HDL Cholesterol 45 Cholesterol/HDL Ratio 4.3 H Urine Color Urine Appearance Urine pH Ur Specific [place] Urine Protein Urine Glucose (UA) Urine Ketones Urine Blood Urine Nitrate Urine Bilirubin Urine Urobilinogen Ur Leukocyte Esterase Urine RBC Urine WBC Ur Squamous Epith Cells Urine Bacteria Chlamy pneumoniae PCR Adenovirus (PCR) B. pertussis DNA (PCR) Coronavirus OC43 (PCR) Coronavirus HKU1 (PCR) Coronavirus 229E (PCR) SARS-CoV-2 (PCR) Coronavirus NL63 (PCR) Human Metapneumovir PCR Influenza A (H1) PCR Influ A (H1N1/09) PCR Influenza A (H3) PCR Influenza Type A (PCR) Influenza Type B (PCR) M. pneumoniae (PCR) Parainfluenza 1 (PCR) Parainfluenza 2 (PCR) Parainfluenza 3 (PCR) Parainfluenza 4 (PCR) RSV (PCR) Entero/Rhino (PCR) 07/26/23 07/26/23 07/26/23 06:05 03:20 00:21 WBC RBC Hgb Hct MCV MCH MCHC RDW Plt Count MPV Neut % (Auto) Lymph % (Auto) Griggs % (Auto) Eos % (Auto) Baso % (Auto) Neut # (Auto) Lymph # (Auto) Griggs # (Auto) Eos # (Auto) Baso # (Auto) Total Counted Neutrophils % (Manual) Band Neutrophils % Lymphocytes % (Manual) Promyelocytes % Nucleated RBCs Platelet Estimate Polychromasia Basophilic Stippling Anisocytosis Macrocytosis VBG pH VBG pCO2 VBG pO2 VBG HCO3 VBG Total CO2 VBG O2 Saturation VBG Base Excess Sodium Potassium Chloride Carbon Dioxide Anion Gap BUN Creatinine Estimated Creat Clear Estimated GFR Est GFR ( Amer) Glucose POC Glucose 153 H Lactate Calcium Total Bilirubin AST ALT Alkaline Phosphatase Troponin I < 0.01 < 0.01 NT-Pro-B Natriuret Pep Total Protein Albumin Globulin Albumin/Globulin Ratio Triglycerides Cholesterol LDL Cholesterol Direct VLDL Cholesterol HDL Cholesterol Cholesterol/HDL Ratio Urine Color Urine Appearance Urine pH Ur Specific [place] Urine Protein Urine Glucose (UA) Urine Ketones Urine Blood Urine Nitrate Urine Bilirubin Urine Urobilinogen Ur Leukocyte Esterase Urine RBC Urine WBC Ur Squamous Epith Cells Urine Bacteria Chlamy pneumoniae PCR Adenovirus (PCR) B. pertussis DNA (PCR) Coronavirus OC43 (PCR) Coronavirus HKU1 (PCR) Coronavirus 229E (PCR) SARS-CoV-2 (PCR) Coronavirus NL63 (PCR) Human Metapneumovir PCR Influenza A (H1) PCR Influ A (H1N1/09) PCR Influenza A (H3) PCR Influenza Type A (PCR) Influenza Type B (PCR) M. pneumoniae (PCR) Parainfluenza 1 (PCR) Parainfluenza 2 (PCR) Parainfluenza 3 (PCR) Parainfluenza 4 (PCR) RSV (PCR) Entero/Rhino (PCR) 07/26/23 07/25/23 07/25/23 00:10 21:31 21:15 WBC RBC Hgb Hct MCV MCH MCHC RDW Plt Count MPV Neut % (Auto) Lymph % (Auto) Griggs % (Auto) Eos % (Auto) Baso % (Auto) Neut # (Auto) Lymph # (Auto) Griggs # (Auto) Eos # (Auto) Baso # (Auto) Total Counted Neutrophils % (Manual) Band Neutrophils % Lymphocytes % (Manual) Promyelocytes % Nucleated RBCs Platelet Estimate Polychromasia Basophilic Stippling Anisocytosis Macrocytosis VBG pH 7.29 L VBG pCO2 60.3 H VBG pO2 77.6 H VBG HCO3 28.4 VBG Total CO2 30.3 H VBG O2 Saturation 95.3 H VBG Base Excess 1.8 Sodium Potassium Chloride Carbon Dioxide Anion Gap BUN Creatinine Estimated Creat Clear Estimated GFR Est GFR ( Amer) Glucose POC Glucose Lactate Calcium Total Bilirubin AST ALT Alkaline Phosphatase Troponin I NT-Pro-B Natriuret Pep Total Protein Albumin Globulin Albumin/Globulin Ratio Triglycerides Cholesterol LDL Cholesterol Direct VLDL Cholesterol HDL Cholesterol Cholesterol/HDL Ratio Urine Color Yellow Urine Appearance Clear Urine pH 6.0 Ur Specific [place] 1.025 Urine Protein Negative Urine Glucose (UA) Negative Urine Ketones Negative Urine Blood Negative Urine Nitrate Negative Urine Bilirubin Negative Urine Urobilinogen 0.2 Ur Leukocyte Esterase Negative Urine RBC None Urine WBC Occasional Ur Squamous Epith Cells Occasional Urine Bacteria Trace Chlamy pneumoniae PCR TNP Adenovirus (PCR) Not detected B. pertussis DNA (PCR) TNP Coronavirus OC43 (PCR) Not detected Coronavirus HKU1 (PCR) Not detected Coronavirus 229E (PCR) Not detected SARS-CoV-2 (PCR) Not detected Coronavirus NL63 (PCR) Not detected Human Metapneumovir PCR Not detected Influenza A (H1) PCR Not detected Influ A (H1N1/09) PCR Not detected Influenza A (H3) PCR Not detected Influenza Type A (PCR) Not detected Influenza Type B (PCR) Not detected M. pneumoniae (PCR) TNP Parainfluenza 1 (PCR) Not detected Parainfluenza 2 (PCR) Not detected Parainfluenza 3 (PCR) Not detected Parainfluenza 4 (PCR) Not detected RSV (PCR) Not detected Entero/Rhino (PCR) Not detected 07/25/23 21:12 WBC 9.6 RBC 4.56 Hgb 12.5 Hct 40.8 MCV 89.6 MCH 27.5 MCHC 30.7 L RDW 15.9 Plt Count 250 MPV 8.2 Neut % (Auto) 76.4 Lymph % (Auto) 18.2 Griggs % (Auto) 3.8 Eos % (Auto) 1.2 Baso % (Auto) 0.4 Neut # (Auto) 7.4 Lymph # (Auto) 1.8 Griggs # (Auto) 0.4 Eos # (Auto) 0.1 Baso # (Auto) 0.0 Total Counted Neutrophils % (Manual) Band Neutrophils % Lymphocytes % (Manual) Promyelocytes % Nucleated RBCs Platelet Estimate Polychromasia Basophilic Stippling Anisocytosis Macrocytosis VBG pH VBG pCO2 VBG pO2 VBG HCO3 VBG Total CO2 VBG O2 Saturation VBG Base Excess Sodium 138 Potassium 5.0 Chloride 105 Carbon Dioxide 34 H Anion Gap 4.0 L BUN 16 Creatinine 0.80 Estimated Creat Clear 64 Estimated GFR 76 Est GFR ( Amer) 92 Glucose 138 H POC Glucose Lactate 1.5 Calcium 8.7 Total Bilirubin 0.2 AST 24 ALT 20 Alkaline Phosphatase 83 Troponin I < 0.01 NT-Pro-B Natriuret Pep 59.8 Total Protein 7.9 D Albumin 4.0 Globulin 3.9 H Albumin/Globulin Ratio 1.0 L Triglycerides Cholesterol LDL Cholesterol Direct VLDL Cholesterol HDL Cholesterol Cholesterol/HDL Ratio Urine Color Urine Appearance Urine pH Ur Specific [place] Urine Protein Urine Glucose (UA) Urine Ketones Urine Blood Urine Nitrate Urine Bilirubin Urine Urobilinogen Ur Leukocyte Esterase Urine RBC Urine WBC Ur Squamous Epith Cells Urine Bacteria Chlamy pneumoniae PCR Adenovirus (PCR) B. pertussis DNA (PCR) Coronavirus OC43 (PCR) Coronavirus HKU1 (PCR) Coronavirus 229E (PCR) SARS-CoV-2 (PCR) Coronavirus NL63 (PCR) Human Metapneumovir PCR Influenza A (H1) PCR Influ A (H1N1/09) PCR Influenza A (H3) PCR Influenza Type A (PCR) Influenza Type B (PCR) M. pneumoniae (PCR) Parainfluenza 1 (PCR) Parainfluenza 2 (PCR) Parainfluenza 3 (PCR) Parainfluenza 4 (PCR) RSV (PCR) Entero/Rhino (PCR) DS: Diagnosis Discharge Diagnosis (1) Acute and chronic respiratory failure: Status: Acute Code(s): J96.20 - Acute and chronic respiratory failure, unspecified whether with hypoxia or hypercapnia Qualifiers: Respiratory failure complication: hypercapnia Qualified Code(s): J96.22 - Acute and chronic respiratory failure with hypercapnia (2) Edema, peripheral: Status: Acute Code(s): R60.9 - Edema, unspecified (3) Tracheostomy in place: Status: Acute Code(s): Z93.0 - Tracheostomy status (4) Obesity hypoventilation syndrome: Status: Chronic Code(s): E66.2 - Morbid (severe) obesity with alveolar hypoventilation (5) Headache: Status: Resolved Code(s): R51.9 - Headache, unspecified Qualifiers: Headache chronicity pattern: chronic headache Headache type: unspecified Intractability: not intractable Qualified Code(s): R51.9 - Headache, unspecified; G89.29 - Other chronic pain (6) COPD (chronic obstructive pulmonary disease): Status: Acute Code(s): J44.9 - Chronic obstructive pulmonary disease, unspecified Qualifiers: COPD type: COPD with acute exacerbation Qualified Code(s): J44.1 - Chronic obstructive pulmonary disease with (acute) exacerbation Problem details: Patient has severe lung disease for multiple reasons. She has albuterol, budesonide and ipratropium MDIs. She she has fluticasone nasal spray. She is following with pulmonary. (7) Diastolic congestive heart failure: Status: Acute Code(s): I50.30 - Unspecified diastolic (congestive) heart failure Qualifiers: Heart failure chronicity: chronic Qualified Code(s): I50.32 - Chronic diastolic (congestive) heart failure (8) Uses bilevel positive airway pressure (BPAP) ventilation at home: Status: Chronic Code(s): Z99.89 - Dependence on other enabling machines and devices (9) MDD (major depressive disorder), recurrent episode: Status: Acute Code(s): F33.9 - Major depressive disorder, recurrent, unspecified Qualifiers: Major depression episode severity: severe Psychotic features: with psychotic features Qualified Code(s): F33.3 - Major depressive disorder, recurrent, severe with psychotic symptoms (10) Diabetes mellitus, type 2: Status: Acute Code(s): E11.9 - Type 2 diabetes mellitus without complications Qualifiers: Diabetes mellitus complication detail: with unspecified neuropathy Diabetes mellitus complication status: with neurologic complications Diabetes mellitus intermediate insulin use: without intermediate use Qualified Code(s): E11.40 - Type 2 diabetes mellitus with diabetic neuropathy, unspecified (11) Obesity, morbid: Status: Acute Code(s): E66.01 - Morbid (severe) obesity due to excess calories Problem details: Discussed briefly with her the possibility of gastric bypass. She is very fearful of having any abdominal surgery as she has had multiple surgeries in the past. (12) History of smoking 30 or more pack years: Status: Chronic Code(s): Z87.891 - Personal history of nicotine dependence (13) Pickwickian syndrome: Status: Chronic Code(s): E66.2 - Morbid (severe) obesity with alveolar hypoventilation Meds Home Medications and Allergies Home Medications Medication Instructions Recorded Confirmed Type blood sugar diagnostic (OneTouch 01/01/23 07/12/23 History Verio test strips) formoterol fumarate 20 mcg/2 mL 20 mcg inhalation BID Copd 01/01/23 07/25/23 History solution for nebulization lancets 33 gauge (OneTouch Delica 01/01/23 07/12/23 History Plus Lancet) lisinopril 10 mg tablet 10 mg PO DAILY High Blood Pressure 01/01/23 07/25/23 History torsemide 100 mg tablet 100 mg PO DAILY Fluid 01/01/23 07/25/23 History diltiazem HCl 120 mg 120 mg PO DAILY Heart Rhythm 01/02/23 07/25/23 History capsule,extended release 24 hr, controlled (DILT-XR) budesonide 0.5 mg/2 mL suspension 0.5 mg (2 mL) inhalation Q12H #180 02/09/23 07/25/23 Rx for nebulization mL ipratropium 0.5 mg-albuterol 3 mg 3 ml inhalation QID PRN shortness 02/09/23 07/25/23 Rx (2.5 mg base)/3 mL nebulization of breath or wheezing 90 days #270 soln mL fluticasone propionate 50 1 spray intranasal DAILY #16 grams 02/17/23 07/25/23 Rx mcg/actuation nasal spray,suspension (Flonase Allergy Relief) promethazine 25 mg tablet 25 mg PO TID PRN nausea and 03/30/23 07/25/23 Rx vomiting #30 tabs albuterol sulfate 90 mcg/actuation 1 puff inhalation Q6HP PRN 05/16/23 07/25/23 Rx aerosol inhaler (ProAir HFA) Shortness Of Breath #8.5 grams spironolactone 50 mg tablet 50 mg PO DAILY #90 tabs 05/17/23 07/25/23 Rx (Aldactone) sumatriptan succinate 100 mg tablet 100 mg PO NEEDED PRN Migraine 05/19/23 07/25/23 Rx Headache #10 tabs duloxetine 30 mg capsule,delayed 60 mg PO DAILY Mood #30 caps 05/24/23 07/25/23 Rx release lamotrigine 100 mg tablet 100 mg PO DAILY mood #30 tabs 05/24/23 07/25/23 Rx ziprasidone HCl 20 mg capsule 20 mg PO BID Mood #60 caps 05/24/23 07/26/23 Rx cyclobenzaprine 5 mg tablet 5 mg PO TID Muscle relaxer 90 days 07/12/23 07/25/23 Rx #270 tabs dextromethorphan-guaifenesin 5 10 ml PO Q4-6H PRN cough #500 mL 07/12/23 07/25/23 Rx mg-100 mg/5 mL oral liquid (Robitussin Cough-Chest Congestion DM) diazepam 5 mg tablet 7.5 mg PO BID anxiety 30 days #90 07/12/23 07/25/23 Rx tabs gabapentin 800 mg tablet 800 mg PO TID Neuropathy #90 tabs 07/12/23 07/25/23 Rx benzonatate 200 mg capsule 200 mg PO TID PRN Cough 07/25/23 07/25/23 History omeprazole 40 mg capsule,delayed 40 mg PO BID 07/25/23 07/25/23 History release oxycodone-acetaminophen 10 mg-325 1 tab PO TID PRN PAIN 07/25/23 07/25/23 History mg tablet (Percocet) trazodone 100 mg tablet 100 mg PO HS 07/25/23 07/25/23 History cholecalciferol (vitamin D3) 125 10,000 unit PO DAILY 07/26/23 07/26/23 History mcg (5,000 unit) capsule levofloxacin 750 mg tablet 750 mg PO DAILY 3 days #3 tabs 07/26/23 Rx magnesium oxide 400 mg (241.3 mg 400 mg PO DAILY 07/26/23 07/26/23 History magnesium) tablet mupirocin 2 % topical ointment 1 applic topical BID 07/26/23 07/26/23 History rimegepant 75 mg disintegrating 75 mg PO NEEDED PRN Migraine 07/26/23 07/26/23 History tablet (Nurtec ODT) Headache levothyroxine 25 mcg tablet See Rx Instructions .Route 07/28/23 Rx .COMPLEX #30 tabs New Prescriptions to Start Prescriptions: levofloxacin Dean Ornelas Allergies Allergy/AdvReac Type Severity Reaction Status Date / Time doxycycline Allergy Severe Blister Verified 07/12/23 10:38 amoxicillin AdvReac Verified 07/12/23 10:38 nitrofurantoin AdvReac Verified 07/12/23 10:38 [From Macrobid] Discharge Plan Disposition Patient Disposition: Home, Self-Care Condition: Fair Follow up Plan Follow up with: Owen Martinez DO [Primary Care Provider] - 07/31/23 9:45 am Tian Diaz MD [Physician] - 08/30/23 10:45 am Prescriptions/Medication Reconciliation: New levofloxacin 750 mg tablet 750 mg PO DAILY 3 Days Qty: 3 0RF Continued ipratropium-albuterol 0.5 mg-3 mg(2.5 mg base)/3 mL solution for nebulization 3 ml inhalation QID PRN (Reason: shortness of breath or wheezing) 90 Days Qty: 270 3RF budesonide 0.5 mg/2 mL suspension for nebulization 0.5 mg inhalation Q12H Qty: 180 3RF cyclobenzaprine 5 mg tablet 5 mg PO TID 90 Days Qty: 270 3RF diazepam 5 mg tablet 7.5 mg PO BID 30 Days Qty: 90 0RF gabapentin 800 mg tablet 800 mg PO TID Qty: 90 1RF dextromethorphan-guaifenesin [Robitussin Cough-Chest Dago DM] 5-100 mg/5 mL liquid 10 ml PO Q4-6H PRN (Reason: cough) Qty: 500 1RF fluticasone propionate [Flonase Allergy Relief] 50 mcg/actuation spray,suspens ion 1 spray intranasal DAILY Qty: 16 2RF Rx Instructions: administer into each nostril promethazine 25 mg tablet 25 mg PO TID PRN (Reason: nausea and vomiting) Qty: 30 0RF albuterol sulfate [ProAir HFA] 90 mcg/actuation HFA aerosol inhaler 1 puff inhalation Q6HP PRN (Reason: Shortness Of Breath) Qty: 8.5 2RF spironolactone [Aldactone] 50 mg tablet 50 mg PO DAILY Qty: 90 0RF sumatriptan succinate 100 mg tablet 100 mg PO NEEDED PRN (Reason: Migraine Headache) Qty: 10 2RF lamotrigine 100 mg tablet 100 mg PO DAILY Qty: 30 3RF ziprasidone HCl 20 mg capsule 20 mg PO BID Qty: 60 1RF duloxetine 30 mg capsule,delayed release(DR/EC) 60 mg PO DAILY Qty: 30 1RF (DME) OneTouch Verio test strips Strip See Rx Instructions .Route Rx Instructions: As directed torsemide 100 mg tablet 100 mg PO DAILY lisinopril 10 mg tablet 10 mg PO DAILY formoterol fumarate 20 mcg/2 mL solution for nebulization 20 mcg inhalation BID (DME) lancets [OneTouch Delica Plus Lancet] 33 gauge misc See Rx Instructions .Route Rx Instructions: As directed diltiazem HCl [DILT-XR] 120 mg capsule,ext.rel 24h degradable 120 mg PO DAILY omeprazole 40 mg capsule,delayed release(DR/EC) 40 mg PO BID Rx Instructions: TAKE ONE CAPSULE BY MOUTH EVERY DAY FOR acid reflux oxycodone-acetaminophen [Percocet] 10-325 mg tablet 1 tab PO TID PRN (Reason: PAIN) trazodone 100 mg tablet 100 mg PO HS Rx Instructions: TAKE ONE TABLET BY MOUTH EVERY DAY AT BEDTIME FOR SLEEP benzonatate 200 mg capsule 200 mg PO TID PRN (Reason: Cough) magnesium oxide 400 mg (241.3 mg magnesium) tablet 400 mg PO DAILY Patient Comments: TAKE ONE TABLET BY MOUTH EVERY DAY cholecalciferol (vitamin D3) 125 mcg (5,000 unit) capsule 10,000 unit PO DAILY Patient Comments: TAKE TWO CAPSULES BY MOUTH EVERY DAY Nurtec ODT 75 mg tablet,disintegrating 75 mg PO NEEDED PRN (Reason: Migraine Headache) Patient Comments: DISSOLVE ONE TABLET in MOUTH EVERY OTHER DAY mupirocin 2 % ointment 1 applic topical BID No Action levothyroxine 25 mcg tablet See Rx Instructions .ROUTE .COMPLEX Qty: 30 0RF Dose Instruction: TAKE ONE TABLET BY MOUTH EVERY DAY AT 7:00am Rx Instructions: TAKE ONE TABLET BY MOUTH EVERY DAY AT 7:00am Problem Reconciliation Problems Reviewed?: Yes Patient Discharge Instructions ACTIVITY: Continue current activity DIET: continue same diet Patient Instructions: DI for Chronic Obstructive Pulmonary Disease, DI for Respiratory Failure Providers Primary Care Provider: Owen Martinez Admit Provider: Dean Ornelas Attending Provider: Dean Ornelas
[2023-07-26 12:35] LABS: ABG HCO3 33.4 mmhg (22.0-26.0); ABG Oxygen Saturation 90 % (90-100); ABG PH 7.36 mmol/L (7.35-7.45); ABG PO2 53.7 mmhg (80-100); ABG TCO2 35.2 mmhg (23-27)
[2023-07-26 12:40] LABS: Allen's Test acceptable; Oxygen ROOM AIR %; Source Left Radial
[2023-07-26 12:41] LABS: ABG PCO2 60.2 mmhg (35.0-45.0)
[2023-07-26 13:09] VITALS: BP 150/92; PULSE 101; RESP 20; TEMP 36.7; O2SAT 94
--- NOTE | 2023-07-28 14:13 | CARE MANAGER ---
Attempted to contact patient related to hospital discharge x2. Left VM message. EWA Spencer
== END 2023-07-26 14:50 | disposition home or self-care (01) ==
LOC: ER 21:17 → 2ND 22:20
PROVIDERS: Internal Medicine Pulmonary Disease; Nurse Practitioner Family; Admitting Provider Internal Medicine Adolescent Medicine; Emergency Provider Student in an Organized Health Care Education/Training Program; PCP Internal Medicine; Visit Provider Internal Medicine Adolescent Medicine
DX: J44.1 Chronic obstructive pulmonary disease with (acute) exacerbation (principal); F41.1 Generalized anxiety disorder; E03.9 Hypothyroidism, unspecified; I11.0 Hypertensive heart disease with heart failure; I50.32 Chronic diastolic (congestive) heart failure; F32.A Depression, unspecified; J96.21 Acute and chronic respiratory failure with hypoxia; E66.2 Morbid (severe) obesity with alveolar hypoventilation; E11.40 Type 2 diabetes mellitus with diabetic neuropathy, unspecified; Z87.891 Personal history of nicotine dependence; F32.9 Major depressive disorder, single episode, unspecified; Z86.16 Personal history of COVID-19; Z93.0 Tracheostomy status; Z79.899 Other long term (current) drug therapy; Z68.45 Body mass index [BMI] 70 or greater, adult
CPT/HCPCS: 36415; 71045; 80053; 80061; 81001; 82803; 82962; 83605; 83880; 84484; 85007; 85025; 87040; 87070; 87205; 87632; 87635; 93005; 94640; 94760; 99291; G0378; J0456; J0696; J1956; J3475

== ENCOUNTER 2023-08-31 08:09 | Outpatient (CLI) | payer MEDICAID, SELFPAY ==
--- NOTE | 2023-08-31 08:10 | US_ITS ---
FINAL REPORT TECHNIQUE: Ultrasound images of the abdomen were obtained. CLINICAL HISTORY: abscess COMPARISON: 01/03/2023 FINDINGS: The pancreas is obscured by bowel gas. The liver is unremarkable. The gallbladder has been surgically resected. The common duct is normal, measuring 5 mm. There is a linear hypoechoic focus in the left upper quadrant, that corresponds to the patient's known tube tract from a prior feeding tube. There is no rounded collection to suggest an underlying abscess. The right kidney measures 11.5 cm in length and is normal in echogenicity without hydronephrosis. The left kidney measures 9.9 cm in length and is normal in echogenicity without hydronephrosis. The spleen is unremarkable. The aorta is normal in caliber. The vena cava is unremarkable. IMPRESSION: In the left upper quadrant, there is a tube tract again identified, related to a prior feeding tube. There is no current rounded collection to suggest an underlying abscess. However, if there is clinical concern would suggest CT evaluation of the left upper quadrant. Prior cholecystectomy. Reviewed, Interpreted and Dictated by Lazaro Pal MD Transcribed by Kandice Hunter Authenticated and [facility]
== END 2023-08-31 23:59 ==
LOC: RAD 08:10
PROVIDERS: PCP Internal Medicine; Visit Provider Internal Medicine
DX: L02.91 Cutaneous abscess, unspecified (principal)
CPT/HCPCS: 76700

== ENCOUNTER 2023-10-20 12:30 | Outpatient (CLI) | payer MEDICAID, SELFPAY | END 2023-10-20 23:59 | disposition home or self-care (01) | LOC: RT 12:31 | PROVIDERS: PCP Internal Medicine; Visit Provider Internal Medicine Pulmonary Disease | DX: G47.33 Obstructive sleep apnea (adult) (pediatric) (principal) | CPT/HCPCS: 94762 ==

== ENCOUNTER 2023-10-30 16:57 | Emergency (ER) | payer MEDICAID, SELFPAY ==
[2023-10-30 16:58] VITALS: BP 140/83; PULSE 100; RESP 22; TEMP 37.3; O2SAT 95; BMI 75.5
--- NOTE | 2023-10-30 17:07 | CT_ITS ---
PROCEDURE INFORMATION: Exam: CT Abdomen And Pelvis With Contrast Exam date and time: 10/30/2023 6:04 PM Age: 48 years old Clinical indication: Abdominal pain; Additional info: Luq and llq abd pain TECHNIQUE: Imaging protocol: Computed tomography of the abdomen and pelvis with contrast. Radiation optimization: All CT scans at this facility use at least one of these dose optimization techniques: automated exposure control; mA and/or kV adjustment per patient size (includes targeted exams where dose is matched to clinical indication); or iterative reconstruction. Contrast material: ISOVUE; Contrast volume: 75 ml; Contrast route: IV; COMPARISON: CT ABDOMEN PELVIS W CON 03/10/2023 2:18 AM FINDINGS: Tubes, catheters and devices: None noted. Lungs: Lung bases appear clear. Heart: No significant coronary calcifications. No cardiomegaly. No significant pericardial effusion. Liver: Normal. No mass. Gallbladder and bile ducts: Cholecystectomy. No ductal dilation. Pancreas: Normal. No ductal dilation. Spleen: Normal. No splenomegaly. Adrenal glands: Normal. No mass. Kidneys and ureters: Normal. No hydronephrosis. Stomach and bowel: Unremarkable. No obstruction. No mucosal thickening. Appendix: No evidence of appendicitis. Intraperitoneal space: Unremarkable. No free air. No significant fluid collection. Retroperitoneal space: No significant retroperitoneal inflammatory changes are noted. Vasculature: Unremarkable. No abdominal aortic aneurysm. Lymph nodes: Unremarkable. No enlarged lymph nodes. Urinary bladder: Unremarkable as visualized. Reproductive: Unremarkable as visualized. Bones/joints: Unremarkable. No acute fracture. Soft tissues: Unremarkable. IMPRESSION: No acute findings.
--- NOTE | 2023-10-30 17:07 | XR_ITS ---
PROCEDURE INFORMATION: Exam: XR Chest Exam date and time: 10/30/2023 5:51 PM Age: 48 years old Clinical indication: Dyspnea TECHNIQUE: Imaging protocol: Radiologic exam of the chest. Views: 1 view. COMPARISON: CR XR CHEST PORTABLE 07/26/2023 10:43 AM FINDINGS: Airway: Tracheostomy is at the thoracic inlet. Lungs: No acute cardiopulmonary findings. Pleural spaces: Unremarkable. No pleural effusion. No pneumothorax. Heart/Mediastinum: Unremarkable. No cardiomegaly. Bones/joints: Unremarkable. IMPRESSION: 1. Tracheostomy is at the thoracic inlet. 2. No acute cardiopulmonary findings.
--- NOTE | 2023-10-30 17:13 | ED_ITS ---
Discharge Plan Disposition Patient Disposition: Home, Self-Care Prescriptions Prescriptions: New ondansetron 4 mg tablet,disintegrating 4 mg PO Q6H PRN (Reason: nausea and vomiting) 5 Days Qty: 20 0RF No Action ipratropium-albuterol 0.5 mg-3 mg(2.5 mg base)/3 mL solution for nebulization 3 ml inhalation QID PRN (Reason: shortness of breath or wheezing) 90 Days Qty: 270 3RF cyclobenzaprine 5 mg tablet 5 mg PO TID 90 Days Qty: 270 3RF Trelegy Ellipta 100-62.5-25 mcg blister with device 1 inh inhalation DAILY 90 Days Qty: 90 2RF duloxetine 30 mg capsule,delayed release(DR/EC) 90 mg PO DAILY 60 Days Qty: 180 6RF gabapentin 800 mg tablet 800 mg PO TID Qty: 90 1RF spironolactone [Aldactone] 50 mg tablet 50 mg PO DAILY 90 Days Qty: 90 4RF torsemide 100 mg tablet 100 mg PO DAILY 90 Days Qty: 90 4RF lisinopril 10 mg tablet 10 mg PO DAILY 90 Days Qty: 90 4RF omeprazole 40 mg capsule,delayed release(DR/EC) 80 mg PO DAILY 90 Days Qty: 180 4RF fluticasone propionate [Flonase Allergy Relief] 50 mcg/actuation spray,suspension 1 spray intranasal DAILY Qty: 16 2RF Rx Instructions: administer into each nostril albuterol sulfate [ProAir HFA] 90 mcg/actuation HFA aerosol inhaler 1 puff inhalation Q6HP PRN (Reason: Shortness Of Breath) Qty: 8.5 2RF sumatriptan succinate 100 mg tablet 100 mg PO NEEDED PRN (Reason: Migraine Headache) Qty: 10 2RF lamotrigine 100 mg tablet 100 mg PO DAILY Qty: 30 3RF benzonatate 200 mg capsule 200 mg PO TID PRN (Reason: Cough) Qty: 60 1RF promethazine 25 mg tablet 25 mg PO TID PRN (Reason: nausea and vomiting) Qty: 30 2RF Linzess 72 mcg capsule 72 mcg PO DAILY Qty: 90 0RF ziprasidone HCl 20 mg capsule 20 mg PO BID Qty: 60 1RF levothyroxine 25 mcg tablet See Rx Instructions .ROUTE .COMPLEX Qty: 90 0RF Dose Instruction: TAKE ONE TABLET BY MOUTH EVERY DAY AT 7:00am Rx Instructions: TAKE ONE TABLET BY MOUTH EVERY DAY AT 7:00am trazodone 100 mg tablet See Rx Instructions .ROUTE .COMPLEX Qty: 90 0RF Dose Instruction: TAKE ONE TABLET BY MOUTH EVERY DAY AT BEDTIME FOR SLEEP Rx Instructions: TAKE ONE TABLET BY MOUTH EVERY DAY AT BEDTIME FOR SLEEP neomycin-polymyxin B-dexameth 3.5mg/mL-10,000 unit/mL-0.1 % drops,suspension 1 drp ophthalmic (eye) Q8H 14 Days Qty: 5 0RF oxycodone-acetaminophen 10-325 mg tablet 1 tab PO TID PRN (Reason: pain) 30 Days Qty: 90 0RF diazepam 5 mg tablet 5 mg PO BID Qty: 60 0RF (DME) OneTouch Verio test strips Strip See Rx Instructions .Route Rx Instructions: As directed (DME) lancets [OneTouch Delica Plus Lancet] 33 gauge misc See Rx Instructions .Route Rx Instructions: As directed diltiazem HCl [DILT-XR] 120 mg capsule,ext.rel 24h degradable 120 mg PO DAILY magnesium oxide 400 mg (241.3 mg magnesium) tablet 400 mg PO DAILY Patient Comments: TAKE ONE TABLET BY MOUTH EVERY DAY cholecalciferol (vitamin D3) 125 mcg (5,000 unit) capsule 10,000 unit PO DAILY Patient Comments: TAKE TWO CAPSULES BY MOUTH EVERY DAY Nurtec ODT 75 mg tablet,disintegrating 75 mg PO NEEDED PRN (Reason: Migraine Headache) Patient Comments: DISSOLVE ONE TABLET in MOUTH EVERY OTHER DAY mupirocin 2 % ointment 1 applic topical BID Referrals Follow up/Referrals: Owen Martinez DO [Primary Care Provider] - See instructions Activity Restrictions/Add. Instructions Additional Instructions/Restrictions: No evidence of an abdominal emergency or cardiopulmonary emergency please follow-up primary care doctor as needed. Clinical Impressions Clinical Impression: Obesity hypoventilation syndrome, Abdominal pain, Shortness of breath Instructions Patient Instructions: DI for Acute Abdominal Pain Discharge ED Provider: Chilo Horta General Adult HPI General Chief complaint: Abdominal Pain Stated complaint: SOA, vomiting Time Seen by Provider: 10/30/23 17:00 Mode of Arrival: Ambulatory Source of Information: Patient Limitations: No Limitations Description of Symptoms (Recalled from ER Triage Doc. by RN): Patient presents to ED with N/V/D and increase SOA for 3-4 days. Patient also c/o of ABD pain for 1 week. History of Present Illness HPI narrative: Patient is a morbidly obese 48-year-old female with a history of obesity hypoventilation syndrome who is trach dependent with respiratory failure chronically presents today with multiple complaints. Mainly she complains of left upper and left lower quadrant abdominal pain which she states is mainly located around an old G-tube site. She states she also is on Linzess and has had intermittent constipation and diarrhea and nausea. Her abdominal pain is primary reason for coming in today. She chronically is dyspneic but states it is little bit worse than normal and has had some increased sputum production coming from her trach. Denies any fevers or chills or significant body edema which has been admitted for in the past. Related Data Home Medications Medication Instructions Recorded Confirmed blood sugar diagnostic (OneTouch 01/01/23 10/24/23 Verio test strips) lancets 33 gauge (OneTouch Delica 01/01/23 10/24/23 Plus Lancet) diltiazem HCl 120 mg 120 mg PO DAILY Heart Rhythm 01/02/23 10/24/23 capsule,extended release 24 hr, controlled (DILT-XR) cholecalciferol (vitamin D3) 125 10,000 unit PO DAILY 07/26/23 10/24/23 mcg (5,000 unit) capsule magnesium oxide 400 mg (241.3 mg 400 mg PO DAILY 07/26/23 10/24/23 magnesium) tablet mupirocin 2 % topical ointment 1 applic topical BID 07/26/23 10/24/23 rimegepant 75 mg disintegrating 75 mg PO NEEDED PRN Migraine 07/26/23 10/24/23 tablet (Nurtec ODT) Headache Previous Rx's Medication Instructions Recorded ipratropium 0.5 mg-albuterol 3 mg 3 ml inhalation QID PRN shortness 02/09/23 (2.5 mg base)/3 mL nebulization of breath or wheezing 90 days #270 soln mL fluticasone propionate 50 1 spray intranasal DAILY #16 grams 02/17/23 mcg/actuation nasal spray,suspension (Flonase Allergy Relief) albuterol sulfate 90 mcg/actuation 1 puff inhalation Q6HP PRN 05/16/23 aerosol inhaler (ProAir HFA) Shortness Of Breath #8.5 grams sumatriptan succinate 100 mg tablet 100 mg PO NEEDED PRN Migraine 05/19/23 Headache #10 tabs lamotrigine 100 mg tablet 100 mg PO DAILY mood #30 tabs 05/24/23 cyclobenzaprine 5 mg tablet 5 mg PO TID Muscle relaxer 90 days 07/12/23 #270 tabs benzonatate 200 mg capsule 200 mg PO TID PRN Cough #60 caps 08/29/23 levothyroxine 25 mcg tablet See Rx Instructions .Route 08/29/23 .COMPLEX #90 tabs linaclotide 72 mcg capsule 72 mcg PO DAILY constipation #90 08/29/23 (Linzess) caps promethazine 25 mg tablet 25 mg PO TID PRN nausea and 08/29/23 vomiting #30 tabs trazodone 100 mg tablet See Rx Instructions .Route 08/29/23 .COMPLEX #90 tabs ziprasidone HCl 20 mg capsule 20 mg PO BID Mood #60 caps 08/29/23 duloxetine 30 mg capsule,delayed 90 mg (3 x 30 mg) PO DAILY Mood 60 09/11/23 release days #180 caps gabapentin 800 mg tablet 800 mg PO TID Neuropathy #90 tabs 09/11/23 lisinopril 10 mg tablet 10 mg PO DAILY High Blood Pressure 09/11/23 90 days #90 tabs omeprazole 40 mg capsule,delayed 80 mg (2 x 40 mg) PO DAILY 90 days 09/11/23 release #180 caps spironolactone 50 mg tablet 50 mg PO DAILY 90 days #90 tabs 09/11/23 (Aldactone) torsemide 100 mg tablet 100 mg PO DAILY Fluid 90 days #90 09/11/23 tabs tbvxynti-tfivmhmvv-gzlbuhax 3.5 1 drp ophthalmic (eye) Q8H 14 days 09/12/23 mg/mL-10,000 unit/mL-0.1% eye drops #5 mL fluticasone fur. 100 mcg-umeclid 1 inh inhalation DAILY 90 days #90 09/19/23 62.5 mcg-vilant 25 mcg ea inhalat.powder (Trelegy Ellipta) oxycodone-acetaminophen 10 mg-325 1 tab PO TID PRN pain 30 days #90 10/16/23 mg tablet tabs diazepam 5 mg tablet 5 mg PO BID #60 tabs 10/23/23 ondansetron 4 mg disintegrating 4 mg PO Q6H PRN nausea and 10/30/23 tablet vomiting 5 days #20 tabs Allergies Allergy/AdvReac Type Severity Reaction Status Date / Time doxycycline Allergy Severe Blister Verified 09/20/23 16:05 amoxicillin AdvReac Verified 09/20/23 16:05 nitrofurantoin AdvReac Verified 09/20/23 16:05 [From Macrobid] [facility] Disclaimer: The information contained in this section may have been updated after the patient was seen, as this information can be updated by other users. Medical History (Updated 10/30/23 @ 17:16 by Chilo Horta MD) Ear pain, right Acute and chronic respiratory failure with hypercapnia PTSD (post-traumatic stress disorder) Chest pain Generalized anxiety disorder Recurrent major depression resistant to treatment Sleep apnea History of ectopic History of hyperkalemia Diastolic congestive heart failure Paranoid schizophrenia Uses bilevel positive airway pressure (BPAP) ventilation at home History of sleep apnea History of asthma Cellulitis of right lower extremity Acute and chronic respiratory failure with hypercapnia Pneumonia Acute and chronic respiratory failure Right lower lobe pneumonia History of smoking 30 or more pack years Obesity hypoventilation syndrome Asthma Chronic respiratory failure with hypercapnia Severe sepsis COVID-19 Acute and chronic respiratory failure Pneumonia Tracheostomy in place Edema Sinus tachycardia Dizziness Diastolic dysfunction Acute on chronic diastolic heart failure Respiratory failure with hypoxia and hypercapnia Congestive heart failure Acute on chronic diastolic heart failure Elevated d-dimer PAC (premature atrial contraction) Chest pain Dyspnea HTN (hypertension) COPD (chronic obstructive pulmonary disease) Tobacco abuse Abnormal stress test SOB (shortness of breath) Angina, class III Obesity Hypothyroidism (~11/21/17) Asthma Insomnia Depression Anxiety Neuropathy Surgical History History of colonoscopy History of left knee surgery History of hysterectomy Family History Other No significant family history Social History Smoking Status: Former smoker tobacco type: cigarettes packs per day: 1 smoking status stop date: 02/2022 alcohol intake: former substance use type: marijuana current occupational status: disabled Travel in the last 8 weeks: None household members: family housing: apartment number of children: 0 current occupational exposures/hazards: No caffeine: Yes ROS Obtained: Yes All systems reviewed & no additional complaints except as documented Physical Exam General General appearance: alert Respiratory Respiratory exam: Present other (Trach in place patient has secretions that appear thick no respiratory distress no focal adventitious lung sounds) Cardiovascular Cardiovascular exam: Present regular rate and normal rhythm Abdominal Exam Abdominal exam: Present soft, distention, tenderness and other (Abdomen is morbidly obese she is tender left upper and left lower quadrant body habitus severely limits exam no superficial erythema or warmth) Neurological Exam Neurological exam: Present alert and oriented X3 Medical Decision Making Estrada Inquiry Pt receiving controlled substance: No Vital Signs: 10/30/23 16:58 10/30/23 17:30 10/30/23 18:30 Temperature 99.1 F Temperature Source Oral Pulse Rate 94 H 100 H Pulse Rate [Right Radial] 100 H Respiratory Rate 22 Blood Pressure 140/83 195/118 H Blood Pressure [Right Arm] 140/83 Blood Pressure Mean [Right Arm] 102 Blood Pressure Source [Right Arm] Automatic Cuff Blood Pressure Position [Right Arm] Supine 02 Sat by Pulse Oximetry 95 95 88 L Oxygen Delivery Method Room Air Room Air Room Air Lab Data Lab results reviewed: Yes I reviewed the patient's lab results. Lab Results 10/30/23 17:15: SARS-CoV-2 (PCR) Not detected, Influenza A Untype (PCR) Not detected, Influenza Type B (PCR) Not detected 10/30/23 17:18: WBC 9.2, RBC 5.35, Hgb 14.7, Hct 47.3 H, MCV 88.4, MCH 27.6, M CHC 31.2 L, RDW 17.0, Plt Count 228, MPV 8.4, Neut % (Auto) 82.1 H, Lymph % (Auto) 12.9, [place] % (Auto) 3.2, Eos % (Auto) 0.6, Baso % (Auto) 1.2, Neut # (Auto) 7.5, Lymph # (Auto) 1.2, [place] # (Auto) 0.3, Eos # (Auto) 0.1, Baso # (Auto) 0.1, Sodium 138, Potassium 4.4, Chloride 101, Carbon Dioxide 31 H, Anion Gap 10.4, BUN 14, Creatinine 0.90, Estimated Creat Clear 57, Estimated GFR 67, Est GFR ( Amer) 81, Glucose 111 H, Lactate 1.2, Calcium 9.4, Total Bilirubin 0.2, AST 22, ALT 18, Alkaline Phosphatase 91, Troponin I < 0.01, Total Protein 8.6 H, Albumin 4.3, Globulin 4.3 H, Albumin/Globulin Ratio 1.0 L, Lipase 32 10/30/23 17:18 10/30/23 17:18 Orders (Tests/Meds): ED MEDICATIONS Generic Name Dose Route Start Last Admin Trade Name Freq PRN Reason Stop Dose Admin Sodium Chloride 3 ml 10/30/23 17:07 Sodium Chloride 3% 15ml Neb IH 11/29/23 17:06 ONCE PRN INDUCE SPUTUM COLLECTION Sodium Chloride 10 ml 10/30/23 18:13 10/30/23 18:13 Sodium Chloride 0.9% 10ml Syr (Rad Only) IV 11/29/23 18:12 10 ml NEEDED PRN Administration Maintain IV Site Discontinued Medications Generic Name Dose Route Start Last Admin Trade Name Freq PRN Reason Stop Dose Admin Lactated Ringer's 500 mls @ 999 mls/hr 10/30/23 17:15 10/30/23 17:23 Lactated Ringer's 1000 Ml Bag IV 10/30/23 17:45 Not Given .Q31M GERMAN Lactated Ringer's 500 mls @ 999 mls/hr 10/30/23 17:23 10/30/23 17:24 Lactated Ringer's 500ml IV 10/30/23 17:53 999 mls/hr .Q31M ONE Administration Iopamidol 75 ml 10/30/23 18:13 10/30/23 18:13 Iopamidol-370 (76%);100ml Bottle IV 10/30/23 18:14 75 ml ONCE ONE Administration Morphine Sulfate 4 mg 10/30/23 17:07 10/30/23 17:24 Morphine 4mg/Ml Syringe IV 10/30/23 17:08 4 mg ONCE ONE Administration Ondansetron HCl 4 mg 10/30/23 17:07 10/30/23 17:24 Ondansetron 4mg/2ml Vial IV 10/30/23 17:08 4 mg ONCE ONE Administration ORDERS Category Date Time Status CT abdomen pelvis w con Stat Cat Scan 10/30/23 17:07 Completed CXR --portable [XR chest portable] Stat Exams 10/30/23 17:07 Completed CBC w/Auto Diff [Complete Blood Count Auto Diff] Stat Lab 10/30/23 17:18 Completed CMP [Comprehensive Metabolic Panel] Stat Lab 10/30/23 17:18 Completed Lactic Acid Stat Lab 10/30/23 17:18 Completed Lipase Stat Lab 10/30/23 17:18 Completed Rapid PCR Covid and Flu A/B Stat Lab 10/30/23 17:15 Completed Trop I [Troponin I] Stat Lab 10/30/23 17:18 Completed Troponin I Q3H Lab 10/30/23 20:15 Ordered Troponin I Q3H Lab 10/30/23 23:15 Ordered Sputum Culture & Gram Stain Stat Micro 10/30/23 17:52 Received Medical Decision Narrative: Patient is a chronically ill morbidly obese 48-year-old with obesity hypoventilation syndrome trach dependent with chronic respiratory failure presented with abdominal pain. Will attempt to get a CT scan to evaluate for the pain that she is complaining in her abdomen however her body habitus may limit our ability to get her into our scanner. Also will get a chest x-ray sputum culture test for COVID and flu and reassess from a cardiopulmonary standpoint as she has had mild increase in shortness of breath and some sputum production. The scan performed which I personally interpreted shows no acute abdominal emergency radiology read is consistent with this as well. Chest x-ray performed which I first interpreted shows no acute cardiopulmonary emergency also radiology read is consistent with this as well. Body habitus does limit that. Labs otherwise unremarkable serial exams patient is improved and reassured that there is no obvious cause of her symptoms. Patient will follow-up outpatient with a primary care doctor prescription of Zofran has been given for her nausea. Diagnostic uncertainty remains she will return with any significant worsening or persistence of her symptoms. Critical Care Critical Care Time Critical Care Time: No
[2023-10-30 17:20] LABS: Coronavirus 19, PCR Not Detected (NotDetected); Influenza A, PCR Not Detected (NotDetected); Influenza B, PCR Not Detected (NotDetected)
[2023-10-30] MEDS: ONDANSETRON 4MG/2ML VIAL 4 MG IV (17:24)
[2023-10-30] MEDS: RINGERS SOLUTION,LACTATED 500 ML 999 ML IV (17:24)
[2023-10-30] MEDS: MORPHINE 4MG/ML SYRINGE 4 MG IV (17:24)
[2023-10-30 17:30] VITALS: BP 140/83; PULSE 94; O2SAT 95
[2023-10-30 17:30] LABS: Basophils # 0.1 K/mm3 (0-0.2); Basophils % 1.2 % (0.1-2.0); Eosinophils # 0.1 K/mm3 (0.0-0.4); Eosinophils % 0.6 % (0.1-12.0); Hematocrit 47.3 % (37.0-47.0); Hemoglobin 14.7 g/dL (12.2-16.2); Lymphocytes # 1.2 K/mm3 (0.7-4.5); Lymphocytes % 12.9 % (10-50); Mean Corpuscular HGB Conc 31.2 g/dL (31.8-35.4); Mean Corpuscular Hemoglobin 27.6 pg (27.0-31.2); Mean Corpuscular Volume 88.4 fl (81-99); Mean Platelet Volume 8.4 fl (7.4-10.4); Monocytes # 0.3 K/mm3 (0.1-1.0); Monocytes % 3.2 % (1.7-9.3); Neutrophils # 7.5 K/mm3 (1.8-7.8); Neutrophils % 82.1 % (37.0-80.0); Platelet Count 228 K/mm3 (142-424); Red Blood Count 5.35 M/mm3 (4.20-5.40); White Blood Count 9.2 K/mm3 (4.8-10.8)
[2023-10-30 17:35] LABS: Chloride 101 mmol/L (98-107); Potassium 4.4 mmoL/L (3.5-5.1); Sodium 138 mmol/L (136-145)
[2023-10-30 17:37] LABS: Blood Urea Nitrogen 14 mg/dl (7-17); Creatinine Clearance Estimated 57 mL/min (50-200); Estimated Glomerular Filt Rate 67 ml/min (>60); GFR (African American) 81 ML/MIN (>60)
[2023-10-30 17:38] LABS: Alanine Aminotransferase 18 U/L (12-78); Albumin Level 4.3 g/dl (3.5-5.0); Alkaline Phosphatase 91 U/L (38-126); Anion Gap 10.4 mEq/L (5-15); Aspartate Amino Transferase 22 U/L (14-36); Bilirubin,Total 0.2 mg/dl (0.2-1.3); Calcium 9.4 mg/dl (8.4-10.2); Carbon Dioxide 31 mmol/L (22.0-30.0); Globulin 4.3 g/dL (1.3-3.2); Glucose 111 mg/dl (74-100); Lipase 32 U/L (23-300); Total Protein,Serum 8.6 g/dl (6.3-8.2)
[2023-10-30 17:39] LABS: Lactic Acid 1.2 mmol/L (0.7-2.1)
--- NOTE | 2023-10-30 17:42 | PC.NURSE ---
RT at bedside for suction
[2023-10-30 17:51] LABS: Troponin I < 0.01 ng/ml (0.00-0.034)
--- NOTE | 2023-10-30 18:09 | PC.NURSE ---
pt ambulated to bathroom and back to room
[2023-10-30] MEDS: SODIUM CHLORIDE 0.9% 10ML SYR (RAD ONLY) 10 ML IV (18:13)
[2023-10-30] MEDS: IOPAMIDOL-370 (76%);100ML BOTTLE 75 ML IV (18:13)
--- NOTE | 2023-10-30 18:22 | ECG_ITS ---
APPROVED REPORT Exam: Resting ECG HR:99 bpm ECG Measurements Heart Rate 99 AXES MO 159 P 76 QRSd 97 QRS 76 QT 341 T 76 QTc 397 Conclusion SINUS RHYTHM NORMAL ECG UNCONFIRMED REPORT Electronically signed by : Dean Horta, 10/30/2023 23:13:33
[2023-10-30 18:30] VITALS: BP 195/118; PULSE 100; O2SAT 88
[2023-10-30 19:42] VITALS: BP 180/111; PULSE 87; RESP 16; TEMP 36.8; O2SAT 94
--- NOTE | 2023-11-01 11:10 | PC.NURSE ---
discussed sputum culture with , likely contaminated, ntd
== END 2023-10-30 19:49 | disposition home or self-care (01) ==
PROVIDERS: Emergency Provider Student in an Organized Health Care Education/Training Program; PCP Internal Medicine
DX: R10.12 Left upper quadrant pain (principal); R10.32 Left lower quadrant pain; R06.02 Shortness of breath; E66.2 Morbid (severe) obesity with alveolar hypoventilation; R11.2 Nausea with vomiting, unspecified; B96.89 Other specified bacterial agents as the cause of diseases classified elsewhere; J44.9 Chronic obstructive pulmonary disease, unspecified; I11.0 Hypertensive heart disease with heart failure; I50.30 Unspecified diastolic (congestive) heart failure; E03.9 Hypothyroidism, unspecified; Z93.0 Tracheostomy status; Z68.45 Body mass index [BMI] 70 or greater, adult
CPT/HCPCS: 71045; 74177; 80053; 83605; 83690; 84484; 85025; 87070; 87205; 87636; 93005; 96361; 96374; 96375; 99285; J2405; Q9967

== ENCOUNTER 2023-11-16 18:00 | Outpatient (CLI) | payer MEDICAID, SELFPAY ==
[2023-11-16 19:30] LABS: Basophils % 0.4 % (0.1-2.0); Eosinophils # 0.1 K/mm3 (0.0-0.4); Eosinophils % 0.7 % (0.1-12.0); Hematocrit 44.4 % (37.0-47.0); Hemoglobin 13.5 g/dL (12.2-16.2); Lymphocytes # 1.9 K/mm3 (0.7-4.5); Lymphocytes % 17.5 % (10-50); Mean Corpuscular HGB Conc 30.5 g/dL (31.8-35.4); Mean Corpuscular Hemoglobin 27.6 pg (27.0-31.2); Mean Corpuscular Volume 90.6 fl (81-99); Monocytes # 0.5 K/mm3 (0.1-1.0); Monocytes % 4.4 % (1.7-9.3); Neutrophils # 8.3 K/mm3 (1.8-7.8); Platelet Count 236 K/mm3 (142-424); White Blood Count 10.8 K/mm3 (4.8-10.8)
[2023-11-16 19:51] LABS: Alanine Aminotransferase 16 U/L (12-78); Albumin Level 3.8 g/dl (3.5-5.0); Albumin/Globulin Ratio 1.3 (1.1-1.8); Alkaline Phosphatase 84 U/L (38-126); Anion Gap 13.3 mEq/L (5-15); Aspartate Amino Transferase 19 U/L (14-36); Bilirubin,Total 0.2 mg/dl (0.2-1.3); Blood Urea Nitrogen 19 mg/dl (7-17); Calcium 8.7 mg/dl (8.4-10.2); Carbon Dioxide 32 mmol/L (22.0-30.0); Chloride 99 mmol/L (98-107); Estimated Glomerular Filt Rate 76 ml/min (>60); GFR (African American) 92 ML/MIN (>60); Glucose 85 mg/dl (74-100); Potassium 4.3 mmoL/L (3.5-5.1); Sodium 140 mmol/L (136-145); Total Protein,Serum 6.8 g/dl (6.3-8.2)
[2023-11-16 20:00] LABS: NT Pro Brain Natriuretic Pep. 70.3 pg/mL (0-125)
[2023-11-16 21:41] LABS: Free Thyroxine Index 2.6 ug/dL (5.93-13.13); T4 (Thyroxine) 6.7 ug/dl (5.53-11.0); Triiodothryronine (T3) Uptake 39 % (23.5-40.5)
[2023-11-16 21:55] LABS: Thyroid Stimulating Hormone 3.46 uIU/mL (0.465-4.68)
[2023-11-17 14:57] LABS: HIV (1&2) Antibody Rapid NONREACTIVE
[2023-11-18 08:20] LABS: HCV Ab Non Reactive (Non Reactive)
== END 2023-11-16 23:59 | disposition home or self-care (01) ==
LOC: LAB.DROPOF 11-17 15:33
PROVIDERS: Visit Provider Family Medicine
DX: R10.9 Unspecified abdominal pain (principal); G47.33 Obstructive sleep apnea (adult) (pediatric); R69 Illness, unspecified; J20.8 Acute bronchitis due to other specified organisms; R06.02 Shortness of breath; Z87.891 Personal history of nicotine dependence
CPT/HCPCS: 80050; 80053; 83880; 84436; 84443; 84479; 85025

== ENCOUNTER 2023-11-28 15:25 | Emergency (ER) | payer MEDICAID, SELFPAY ==
[2023-11-28 15:25] VITALS: BP 177/124; PULSE 100; RESP 32; TEMP 36.8; O2SAT 95; BMI 71.8
--- NOTE | 2023-11-28 15:29 | CT_ITS ---
PROCEDURE INFORMATION: Exam: CTA Chest With Contrast Exam date and time: 11/28/2023 4:45 PM Age: 48 years old Clinical indication: Cough and shortness of breath; Additional info: Cough, SOA TECHNIQUE: Imaging protocol: Computed tomographic angiography of the chest with contrast. Exam focused on the arteries. 3D rendering (Not supervised by radiologist): MIP and/or 3D reconstructed images were created by the technologist. Radiation optimization: All CT scans at this facility use at least one of these dose optimization techniques: automated exposure control; mA and/or kV adjustment per patient size (includes targeted exams where dose is matched to clinical indication); or iterative reconstruction. Contrast material: ISOVUE 370; Contrast volume: 85 ml; Contrast route: INTRAVENOUS (IV); COMPARISON: CT ANGIO CHEST PE PROTOCOL 03/10/2023 2:18 AM FINDINGS: Pulmonary arteries: There is suboptimal opacification of pulmonary arteries due to contrast bolus timing. Aorta: Unremarkable. No aortic aneurysm. No aortic dissection. Lungs: Bibasilar atelectasis versus parenchymal scarring. Pleural spaces: Unremarkable. No pneumothorax. No pleural effusion. Heart: Unremarkable. No cardiomegaly. No pericardial effusion. Lymph nodes: Unremarkable. No enlarged lymph nodes. Liver: Decreased density throughout the liver compatible with hepatic steatosis. Spleen: Splenic granulomas Bones/joints: Thoracic spondylosis with multilevel disc degeneration. Soft tissues: Unremarkable. IMPRESSION: No large or central pulmonary embolus. Evaluation of the peripheral pulmonary arteries is limited.
--- NOTE | 2023-11-28 15:29 | CT_ITS ---
PROCEDURE INFORMATION: Exam: CT Abdomen And Pelvis With Contrast Exam date and time: 11/28/2023 4:45 PM Age: 48 years old Clinical indication: Abdominal pain; Additional info: Lower abd pain, abdominal wall cellulitis TECHNIQUE: Imaging protocol: Computed tomography of the abdomen and pelvis with contrast. Radiation optimization: All CT scans at this facility use at least one of these dose optimization techniques: automated exposure control; mA and/or kV adjustment per patient size (includes targeted exams where dose is matched to clinical indication); or iterative reconstruction. Contrast material: ISOVUE; Contrast volume: 85 ml; Contrast route: IV; COMPARISON: CT ABDOMEN PELVIS W CON 10/30/2023 6:04 PM FINDINGS: Lungs: Bibasilar atelectasis versus parenchymal scarring.Decreased density throughout the liver compatible with hepatic steatosis. Liver: See Lungs finding. Gallbladder and biliary ducts: Cholecystectomy Pancreas: Pancreas unremarkable Spleen: Splenic granulomas Adrenal glands: Adrenal glands unremarkable. Kidneys and ureters: No hydronephrosis. Stomach and bowel: Moderate stool burden. Colonic diverticulosis. No evidence of diverticulitis. Appendix: No evidence of appendicitis. Intraperitoneal space: Unremarkable. No free air. No significant fluid collection. Vasculature: Unremarkable. No abdominal aortic aneurysm. Lymph nodes: Unremarkable. Nonspecific retroperitoneal lymph nodes. Urinary bladder: Unremarkable as visualized. Reproductive: Unremarkable as visualized. Bones/joints: Unremarkable. No acute fracture. Soft tissues: Thickening of the subcutaneous tissues of the abdominal pannus. Findings compatible with panniculitis. Other findings: Image degradation secondary to motion as well as body habitus. IMPRESSION: Thickening of the subcutaneous tissues of the abdominal pannus. Findings compatible with panniculitis.
--- NOTE | 2023-11-28 15:30 | CT_ITS ---
PROCEDURE INFORMATION: Exam: CT Cervical Spine Without Contrast Exam date and time: 11/28/2023 4:39 PM Age: 48 years old Clinical indication: Injury or trauma; Fall; Blunt trauma; Additional info: Fall, pain TECHNIQUE: Imaging protocol: Computed tomography of the cervical spine without contrast. Radiation optimization: All CT scans at this facility use at least one of these dose optimization techniques: automated exposure control; mA and/or kV adjustment per patient size (includes targeted exams where dose is matched to clinical indication); or iterative reconstruction. COMPARISON: CT HEAD/BRAIN WO CON 11/28/2023 4:37 PM FINDINGS: Tubes, catheters and devices: Endotracheal tube Bones: No acute fracture. Normal alignment. No significant disc bulge or herniation. No severe spinal canal stenosis. No significant neural foraminal narrowing. Lungs: Lung apices are normal. Soft tissues: Unremarkable. Other findings: Some image degradation secondary to motion artifact as well as patient's body habitus. IMPRESSION: No evidence of acute osseous injury.
--- NOTE | 2023-11-28 15:30 | XR_ITS ---
PROCEDURE INFORMATION: Exam: XR Right Femur Exam date and time: 11/28/2023 4:44 PM Age: 48 years old Clinical indication: Pain; Thigh; Right; Additional info: Fall, pain TECHNIQUE: Imaging protocol: Radiologic exam of the right femur. Views: 2 views. COMPARISON: CR XR HIP RT 2-3V W/PELVIS 11/28/2023 4:42 PM FINDINGS: Bones/joints: Mild-moderate degenerative changes involving the medial and lateral knee compartments. Mild patellofemoral degenerative changes. Soft tissues: Unremarkable. IMPRESSION: No evidence of acute osseous injury.
--- NOTE | 2023-11-28 15:30 | CT_ITS ---
PROCEDURE INFORMATION: Exam: CT Thoracic Spine Without Contrast Exam date and time: 11/28/2023 4:41 PM Age: 48 years old Clinical indication: Pain in thoracic spine; Additional info: Fall, pain TECHNIQUE: Imaging protocol: Computed tomography of the thoracic spine without contrast. Radiation optimization: All CT scans at this facility use at least one of these dose optimization techniques: automated exposure control; mA and/or kV adjustment per patient size (includes targeted exams where dose is matched to clinical indication); or iterative reconstruction. COMPARISON: CT CERVICAL SPINE WO CON 11/28/2023 4:39 PM FINDINGS: Bones/joints: Thoracic spondylosis with multilevel disc degeneration. Scoliosis of the thoracic spine convexity to the left. Soft tissues: Unremarkable. IMPRESSION: No evidence of acute osseous injury.
--- NOTE | 2023-11-28 15:30 | CT_ITS ---
PROCEDURE INFORMATION: Exam: CT Head Without Contrast Exam date and time: 11/28/2023 4:37 PM Age: 48 years old Clinical indication: Injury or trauma; Fall; Blunt trauma (contusions or hematomas); Additional info: Fall, pain TECHNIQUE: Imaging protocol: Computed tomography of the head without contrast. Radiation optimization: All CT scans at this facility use at least one of these dose optimization techniques: automated exposure control; mA and/or kV adjustment per patient size (includes targeted exams where dose is matched to clinical indication); or iterative reconstruction. COMPARISON: CT HEAD/BRAIN WO CON 02/12/2022 4:22 PM FINDINGS: Brain: Mild prominence of the periventricular white matter again demonstrated. 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 Cerebral ventricles: No ventriculomegaly. Paranasal sinuses: Visualized sinuses are unremarkable. No fluid levels. Mastoid air cells: Visualized mastoid air cells are well aerated. Bones: Unremarkable. No acute fracture. Soft tissues: Unremarkable. Other findings: Image degradation secondary to motion artifact IMPRESSION: No evidence of acute intracranial abnormality.
--- NOTE | 2023-11-28 15:30 | CT_ITS ---
PROCEDURE INFORMATION: Exam: CT Lumbar Spine Without Contrast Exam date and time: 11/28/2023 4:43 PM Age: 48 years old Clinical indication: Low back pain; Additional info: Fall, pain TECHNIQUE: Imaging protocol: Computed tomography of the lumbar spine without contrast. Radiation optimization: All CT scans at this facility use at least one of these dose optimization techniques: automated exposure control; mA and/or kV adjustment per patient size (includes targeted exams where dose is matched to clinical indication); or iterative reconstruction. COMPARISON: CT THORACIC SPINE WO CON 11/28/2023 4:41 PM FINDINGS: Bones/joints: Mild changes of lumbar spondylosis Soft tissues: Unremarkable. IMPRESSION: No evidence of acute osseous injury.
--- NOTE | 2023-11-28 15:30 | XR_ITS ---
PROCEDURE INFORMATION: Exam: XR Right Knee Exam date and time: 11/28/2023 4:46 PM Age: 48 years old Clinical indication: Pain; Knee; Right; Additional info: Fall, pain TECHNIQUE: Imaging protocol: Radiologic exam of the right knee. Views: 3 views. COMPARISON: CR XR KNEE RT 3V 02/21/2022 3:33 PM FINDINGS: Bones/joints: Mild narrowing medial knee compartment. Mild-moderate patellofemoral degenerative changes. Soft tissues: Mild soft tissue swelling. IMPRESSION: Mild-moderate degenerative osteoarthritis. No evidence of acute osseous injury
--- NOTE | 2023-11-28 15:30 | XR_ITS ---
PROCEDURE INFORMATION: Exam: XR Right Hip Exam date and time: 11/28/2023 4:42 PM Age: 48 years old Clinical indication: Hip pain; Right hip; Additional info: Fall, pain TECHNIQUE: Imaging protocol: Radiologic exam of the right hip. Views: 2 or 3 views hip with pelvis when performed. COMPARISON: CT ABDOMEN PELVIS W CON 10/30/2023 6:04 PM FINDINGS: Bones/joints: Unremarkable. No acute fracture. Soft tissues: Unremarkable. IMPRESSION: No acute findings.
--- NOTE | 2023-11-28 15:38 | [facility].EDCP ---
Discharge Plan Disposition Patient Disposition: Home, Self-Care Condition: Good Prescriptions Prescriptions: New prednisone 50 mg tablet 50 mg PO DAILY 5 Days Qty: 5 0RF sulfamethoxazole-trimethoprim [Bactrim DS] 800-160 mg tablet 1 tab PO BID 7 Days Qty: 14 0RF cephalexin 500 mg capsule 500 mg PO TID 7 Days Qty: 21 0RF No Action ipratropium-albuterol 0.5 mg-3 mg(2.5 mg base)/3 mL solution for nebulization 3 ml inhalation QID PRN (Reason: shortness of breath or wheezing) 90 Days Qty: 270 3RF Trelegy Ellipta 100-62.5-25 mcg blister with device 1 inh inhalation DAILY 90 Days Qty: 90 2RF duloxetine 30 mg capsule,delayed release(DR/EC) 90 mg PO DAILY 60 Days Qty: 180 6RF torsemide 100 mg tablet 100 mg PO DAILY 90 Days Qty: 90 4RF omeprazole 40 mg capsule,delayed release(DR/EC) 80 mg PO DAILY 90 Days Qty: 180 4RF levofloxacin 500 mg tablet 500 mg PO DAILY 7 Days Qty: 7 0RF acetylcysteine 100 mg/mL (10 %) solution 2 ml inhalation Q8H PRN (Reason: cough) Qty: 100 0RF formoterol fumarate [Perforomist] 20 mcg/2 mL solution for nebulization 2 ml inhalation BID 30 Days Qty: 120 1RF budesonide 0.5 mg/2 mL suspension for nebulization 0.5 mg inhalation Q12H Qty: 120 1RF propranolol 10 mg tablet 10 mg PO BID Qty: 60 5RF losartan 25 mg tablet 25 mg PO DAILY Qty: 30 5RF magnesium oxide 400 mg (241.3 mg magnesium) tablet 800 mg PO DAILY Qty: 60 5RF fluticasone propionate [Flonase Allergy Relief] 50 mcg/actuation spray,suspension 1 spray intranasal DAILY Qty: 16 2RF Rx Instructions: administer into each nostril diazepam 5 mg tablet 5 mg PO BID Qty: 60 0RF gabapentin 800 mg tablet 800 mg PO TID Qty: 90 1RF oxycodone-acetaminophen 10-325 mg tablet 1 tab PO TID PRN (Reason: pain) 30 Days Qty: 90 0RF albuterol sulfate [ProAir HFA] 90 mcg/actuation HFA aerosol inhaler 1 puff inhalation Q6HP PRN (Reason: Shortness Of Breath) Qty: 8.5 2RF sumatriptan succinate 100 mg tablet 100 mg PO NEEDED PRN (Reason: Migraine Headache) Qty: 10 2RF lamotrigine 100 mg tablet 100 mg PO DAILY Qty: 30 3RF benzonatate 200 mg capsule 200 mg PO TID PRN (Reason: Cough) Qty: 60 1RF promethazine 25 mg tablet 25 mg PO TID PRN (Reason: nausea and vomiting) Qty: 30 2RF Linzess 72 mcg capsule 72 mcg PO DAILY Qty: 90 0RF levothyroxine 25 mcg tablet See Rx Instructions .ROUTE .COMPLEX Qty: 90 0RF Dose Instruction: TAKE ONE TABLET BY MOUTH EVERY DAY AT 7:00am Rx Instructions: TAKE ONE TABLET BY MOUTH EVERY DAY AT 7:00am neomycin-polymyxin B-dexameth 3.5mg/mL-10,000 unit/mL-0.1 % drops,suspension 1 drp ophthalmic (eye) Q8H 14 Days Qty: 5 0RF spironolactone [Aldactone] 50 mg tablet 50 mg PO DAILY 90 Days Qty: 90 4RF Ozempic 0.25 mg or 0.5 mg (2 mg/3 mL) pen injector 0.25 mg SQ WEEKLY Qty: 3 2RF Rx Instructions: for 4 weeks trazodone 100 mg tablet See Rx Instructions .ROUTE .COMPLEX Qty: 90 0RF Dose Instruction: TAKE ONE TABLET BY MOUTH EVERY DAY AT BEDTIME FOR SLEEP Rx Instructions: TAKE ONE TABLET BY MOUTH EVERY DAY AT BEDTIME FOR SLEEP cyclobenzaprine 5 mg tablet 5 mg PO TID 90 Days Qty: 270 3RF (DME) OneTouch Verio test strips Strip See Rx Instructions .Route Rx Instructions: As directed (DME) lancets [OneTouch Delica Plus Lancet] 33 gauge misc See Rx Instructions .Route Rx Instructions: As directed mupirocin 2 % ointment 1 applic topical BID ondansetron 4 mg tablet,disintegrating 4 mg PO Q6H PRN (Reason: nausea and vomiting) 5 Days Qty: 20 0RF Referrals Follow up/Referrals: Provider,Referral, MD [Primary Care Provider] - See instructions Activity Restrictions/Add. Instructions Additional Instructions/Restrictions: You were evaluated in the emergency department today. Please pickers material handlers your prescriptions at the pharmacy and take them as prescribed. We are prescribing you steroids for COPD exacerbation. Please continue using your breathing treatments and inhalers at home. We are also prescribing antibiotics for the cellulitis of your lower abdomen. Please follow-up closely with your primary care provider over the next 3 days for reassessment of these issues. Return to the emergency department for new or worsening symptoms Clinical Impressions Clinical Impression: Acute exacerbation of chronic obstructive pulmonary disease, Panniculitis Instructions Patient Instructions: DI for Cellulitis -- Adult, DI for Chronic Obstructive Pulmonary Disease Discharge ED Provider: Christina Aguilar HPI General Chief Complaint: Shortness of Breath/Dyspnea Stated Complaint: abdominal pain Time Seen by Provider: 11/28/23 15:27 Mode of Arrival: EMS Source of Information: Patient Limitations: No Limitations Description of Symptoms (Recalled from ER Triage Doc. by RN): short of breath,cough, fall, cellulitis, History of Present Illness HPI narrative: This patient is a 48-year-old female with history of morbid obesity, obesity hypoventilation syndrome status post trach placement, tobacco use, COPD, chronic respiratory failure, lymphedema, diastolic heart failure, and type 2 diabetes presenting to the emergency department for evaluation with concern for shortness of breath, cough, generally feeling unwell. She states has been going on for several days. She notes that she also had a fall yesterday with injury to her back and her right knee. She did not hit her head or lose consciousness. No numbness or tingling noted. She also notes that she has lower abdominal cellulitis. She states that she has had a lot of redness, warmth, and pain to her lower abdominal wall and has had issues with cellulitis in the past. She is not currently on any antibiotics or treatment at this time. Related Data Home Medications Medication Instructions Recorded Confirmed blood sugar diagnostic (OneTouch 01/01/23 11/21/23 Verio test strips) lancets 33 gauge (OneTouch Delica 01/01/23 11/21/23 Plus Lancet) mupirocin 2 % topical ointment 1 applic topical BID 07/26/23 11/21/23 Previous Rx's Medication Instructions Recorded ipratropium 0.5 mg-albuterol 3 mg 3 ml inhalation QID PRN shortness 02/09/23 (2.5 mg base)/3 mL nebulization of breath or wheezing 90 days #270 soln mL fluticasone propionate 50 1 spray intranasal DAILY #16 grams 02/17/23 mcg/actuation nasal spray,suspension (Flonase Allergy Relief) albuterol sulfate 90 mcg/actuation 1 puff inhalation Q6HP PRN 05/16/23 aerosol inhaler (ProAir HFA) Shortness Of Breath #8.5 grams sumatriptan succinate 100 mg tablet 100 mg PO NEEDED PRN Migraine 05/19/23 Headache #10 tabs lamotrigine 100 mg tablet 100 mg PO DAILY mood #30 tabs 05/24/23 benzonatate 200 mg capsule 200 mg PO TID PRN Cough #60 caps 08/29/23 levothyroxine 25 mcg tablet See Rx Instructions .Route 08/29/23 .COMPLEX #90 tabs linaclotide 72 mcg capsule 72 mcg PO DAILY constipation #90 08/29/23 (Linzess) caps promethazine 25 mg tablet 25 mg PO TID PRN nausea and 08/29/23 vomiting #30 tabs duloxetine 30 mg capsule,delayed 90 mg (3 x 30 mg) PO DAILY Mood 60 09/11/23 release days #180 caps omeprazole 40 mg capsule,delayed 80 mg (2 x 40 mg) PO DAILY 90 days 09/11/23 release #180 caps torsemide 100 mg tablet 100 mg PO DAILY Fluid 90 days #90 09/11/23 tabs hkwtexho-kedkqyzxq-urwfawjh 3.5 1 drp ophthalmic (eye) Q8H 14 days 09/12/23 mg/mL-10,000 unit/mL-0.1% eye drops #5 mL fluticasone fur. 100 mcg-umeclid 1 inh inhalation DAILY 90 days #90 09/19/23 62.5 mcg-vilant 25 mcg ea inhalat.powder (Trelegy Ellipta) ondansetron 4 mg disintegrating 4 mg PO Q6H PRN nausea and 10/30/23 tablet vomiting 5 days #20 tabs diazepam 5 mg tablet 5 mg PO BID #60 tabs 11/09/23 gabapentin 800 mg tablet 800 mg PO TID Neuropathy #90 tabs 11/09/23 spironolactone 50 mg tablet 50 mg PO DAILY 90 days #90 tabs 11/09/23 (Aldactone) oxycodone-acetaminophen 10 mg-325 1 tab PO TID PRN pain 30 days #90 11/13/23 mg tablet tabs levofloxacin 500 mg tablet 500 mg PO DAILY 7 days #7 tabs 11/16/23 semaglutide 0.25 mg or 0.5 mg (2 0.25 mg (0.368 mL) SQ WEEKLY 11/17/23 mg/3 mL) subcutaneous pen injector Diabetes #3 mL (Ozempic) acetylcysteine 100 mg/mL (10 %) 2 ml inhalation Q8H PRN cough #100 11/21/23 solution mL losartan 25 mg tablet 25 mg PO DAILY #30 tabs 11/21/23 magnesium oxide 400 mg (241.3 mg 800 mg (2 x 400 mg (241.3 mg 11/21/23 magnesium) tablet magnesium)) PO DAILY #60 tabs propranolol 10 mg tablet 10 mg PO BID #60 tabs 11/21/23 budesonide 0.5 mg/2 mL suspension 0.5 mg (2 mL) inhalation Q12H #120 11/22/23 for nebulization mL formoterol fumarate 20 mcg/2 mL 2 ml inhalation BID 30 days #120 mL 11/22/23 solution for nebulization (Perforomist) cyclobenzaprine 5 mg tablet 5 mg PO TID Muscle relaxer 90 days 11/24/23 #270 tabs trazodone 100 mg tablet See Rx Instructions .Route 11/24/23 .COMPLEX #90 tabs cephalexin 500 mg capsule 500 mg PO TID 7 days #21 caps 11/28/23 prednisone 50 mg tablet 50 mg PO DAILY 5 days #5 tabs 11/28/23 sulfamethoxazole 800 1 tab PO BID 7 days #14 tabs 11/28/23 mg-trimethoprim 160 mg tablet (Bactrim DS) Allergies Allergy/AdvReac Type Severity Reaction Status Date / Time doxycycline Allergy Severe Blister Verified 11/21/23 15:24 amoxicillin AdvReac Verified 11/21/23 15:24 nitrofurantoin AdvReac Verified 11/21/23 15:24 [From Macrobid] [facility] Disclaimer: The information contained in this section may have been updated after the patient was seen, as this information can be updated by other users. Medical History Palpitations Ear pain, right Acute and chronic respiratory failure with hypercapnia PTSD (post-traumatic stress disorder) Chest pain Generalized anxiety disorder Recurrent major depression resistant to treatment Sleep apnea History of ectopic History of hyperkalemia Diastolic congestive heart failure Paranoid schizophrenia Uses bilevel positive airway pressure (BPAP) ventilation at home History of sleep apnea History of asthma Cellulitis of right lower extremity Acute and chronic respiratory failure with hypercapnia Pneumonia Acute and chronic respiratory failure Right lower lobe pneumonia History of smoking 30 or more pack years Obesity hypoventilation syndrome Asthma Chronic respiratory failure with hypercapnia Severe sepsis COVID-19 Acute and chronic respiratory failure Pneumonia Tracheostomy in place Edema Sinus tachycardia Dizziness Diastolic dysfunction Acute on chronic diastolic heart failure Respiratory failure with hypoxia and hypercapnia Congestive heart failure Acute on chronic diastolic heart failure Elevated d-dimer PAC (premature atrial contraction) Chest pain Dyspnea HTN (hypertension) COPD (chronic obstructive pulmonary disease) Tobacco abuse Abnormal stress test SOB (shortness of breath) Angina, class III Obesity Hypothyroidism (~11/21/17) Asthma Insomnia Depression Anxiety Neuropathy Surgical History History of colonoscopy History of left knee surgery History of hysterectomy Family History Other No significant family history Social History Smoking Status: Former smoker tobacco type: cigarettes packs per day: 1 smoking status stop date: 02/2022 alcohol intake: former substance use type: marijuana current occupational status: disabled Travel in the last 8 weeks: None household members: family housing: apartment number of children: 0 current occupational exposures/hazards: No caffeine: Yes ROS Obtained: Yes All systems reviewed & no additional complaints except as documented Physical Exam General General appearance: alert, anxious and obese Comment: Very anxious appearing Head Head exam: atraumatic and normocephalic Eye Eye exam: Present normal appearance, PERRL and EOMI ENT ENT exam: Present normal exam, normal oropharynx, mucous membranes moist and normal external ear exam Neck Neck exam: Present normal inspection, full ROM and trachea midline; Absent tenderness Chest Chest inspection: Present normal inspection and symmetric chest wall rise; Absent tenderness Respiratory Respiratory exam: Present wheezes, accessory muscle use and prolonged expiratory phase; Absent respiratory distress or stridor Cardiovascular Cardiovascular exam: Present regular rate and normal rhythm Abdominal Exam Abdominal exam: Present soft and tenderness (Lower abdominal wall with erythema, warmth, and mild induration of her lower abdominal wall); Absent distention or guarding Extremities Exam Extremities exam: Present normal inspection, full ROM and normal capillary refill; Absent tenderness or edema Back Exam Back exam: Present normal inspection and full ROM; Absent tenderness Neurological Exam Neurological exam: Present alert, oriented X3, CN II-XII intact and normal gait; Absent motor sensory deficit Psychiatric Psychiatric exam: Present anxious Skin Skin exam: Present warm and dry HEART Score HEART Score HEART Score assessment performed?: Yes History (anamnesis): Slightly suspicious ECG: Normal Age: 45-65 years Risk factors: 3 or more risk factors Troponin: </= normal limit HEART Score: 3 Critical Care Critical Care Time Critical Care Time: No Medical Decision Making Medical Records Medical records reviewed: Yes I reviewed the patient's medical records. [place]strada Inquiry Pt receiving controlled substance: No Vital Signs Vital Signs: 11/28/23 15:25 11/28/23 15:45 11/28/23 16:00 Temperature 98.3 F Temperature Source Oral Pulse Rate 101 H 101 H Pulse Rate [Right] 100 H Respiratory Rate 32 H Blood Pressure 148/87 H Blood Pressure [Right Arm] 177/124 H Blood Pressure Mean [Right Arm] 141 02 Sat by Pulse Oximetry 95 98 98 11/28/23 17:30 11/28/23 18:54 Temperature 98.8 F Temperature Source Oral Pulse Rate 97 H 93 H Pulse Rate [Right] Respiratory Rate 20 Blood Pressure 136/84 141/91 H Blood Pressure [Right Arm] Blood Pressure Mean [Right Arm] 02 Sat by Pulse Oximetry 96 Lab Data Labs: Lab Results 11/28/23 15:28: VBG pH 7.36, VBG pCO2 53.4 H, VBG pO2 37.0, VBG HCO3 29.4, VBG Total CO2 31.1 H, VBG O2 Saturation 77.1 H, VBG Base Excess 4.0 H, VBG Lactic Acid 1.6 11/28/23 15:50: WBC 8.1, RBC 4.69, Hgb 13.0, Hct 41.3, MCV 88.1, MCH 27.7, MCHC 31.5 L, RDW 17.1, Plt Count 202, MPV 7.9, Neut % (Auto) 80.8 H, Lymph % (Auto) 14.1, [place] % (Auto) 4.1, Eos % (Auto) 0.7, Baso % (Auto) 0.3, Neut # (Auto) 6.5, Lymph # (Auto) 1.1, [place] # (Auto) 0.3, Eos # (Auto) 0.1, Baso # (Auto) 0.0, ESR 22 H, Sodium 138, Potassium 4.2, Chloride 101, Carbon Dioxide 32 H, Anion Gap 9.2, BUN 14, Creatinine 0.80, Estimated Creat Clear 64, Estimated GFR 76, Est GFR ( Amer) 92, Glucose 127 H, Lactate 1.5, Calcium 8.7, Total Bilirubin 0.2, AST 21, ALT 17, Alkaline Phosphatase 80, Troponin I < 0.01, C-Reactive Protein 48.6 H, NT-Pro-B Natriuret Pep 168 H, Total Protein 6.8, Albumin 3.7, Globulin 3.1, Albumin/Globulin Ratio 1.2, TSH 1.43, Thyroxine (T4) 6.2 11/28/23 15:51: SARS-CoV-2 (PCR) Not detected, Influenza A Untype (PCR) Not detected, Influenza Type B (PCR) Not detected 11/28/23 16:25: Urine Color Yellow, Urine Appearance Clear, Urine pH 6.0, Ur Specific [place] 1.015, Urine Protein Negative, Urine Glucose (UA) Negative, Urine Ketones Negative, Urine Blood Negative, Urine Nitrate Negative, Urine Bilirubin Negative, Urine Urobilinogen 0.2, Ur Leukocyte Esterase Negative, Urine RBC None, Urine WBC None, Ur Squamous Epith Cells 3-5, Urine Bacteria None 11/28/23 15:50 11/28/23 15:50 Response Orders (Tests/Meds): ED MEDICATIONS Discontinued Medications Generic Name Dose Route Start Last Admin Trade Name Freq PRN Reason Stop Dose Admin Acetaminophen 1,000 mg 11/28/23 18:13 11/28/23 18:41 Acetaminophen 500mg Tab PO 11/28/23 18:14 1,000 mg ONCE ONE Administration Albuterol/Ipratropium 9 ml 11/28/23 15:27 11/28/23 18:48 Ipratropium/Albuterol 3 Ml Neb IH 11/28/23 15:28 9 ml ONCE ONE Administration Cephalexin HCl 500 mg 11/28/23 18:10 11/28/23 18:42 Cephalexin 500mg Capsule PO 11/28/23 18:11 500 mg ONCE ONE Administration Iopamidol 85 ml 11/28/23 17:04 11/28/23 17:06 Iopamidol-370 (76%);100ml Bottle IV 11/28/23 17:05 85 ml ONCE ONE Administration Ketorolac Tromethamine 15 mg 11/28/23 18:13 11/28/23 18:42 Ketorolac 30mg/Ml Vial IV 11/28/23 18:14 15 mg ONCE ONE Administration Prednisone 40 mg 11/28/23 18:10 11/28/23 18:41 Prednisone 20mg Tab PO 11/28/23 18:11 40 mg ONCE ONE Administration Sodium Chloride 10 ml 11/28/23 17:04 11/28/23 17:06 Sodium Chloride 0.9% 10ml Syr (Rad Only) IV 11/28/23 17:05 10 ml ONCE ONE Administration Sodium Chloride 50 ml 11/28/23 17:04 11/28/23 17:06 0.9 % Sodium Chloride 50 Ml Vial IV 11/28/23 17:05 50 ml ONCE ONE Administration Trimethoprim/Sulfamethoxazole 1 each 11/28/23 18:10 11/28/23 18:41 Sulfa/Trimethoprim 1 Tablet PO 11/28/23 18:11 1 each ONCE ONE Administration ORDERS Category Date Time Status CT abdomen pelvis w con Stat Cat Scan 11/28/23 15:[address] cervical spine wo con Stat Cat Scan 11/28/23 15:[address] head/brain wo con Stat Cat Scan 11/28/23 15:[address] lumbar spine wo con Stat Cat Scan 11/28/23 15:[address] thoracic spine wo con Stat Cat Scan 11/28/23 15:30 Completed CTA Chest [CT angio chest PE protocol] Stat Cat Scan 11/28/23 15:29 Completed XR femur RT 2V Stat Exams 11/28/23 15:30 Completed XR hip RT 2-3V w/pelvis Stat Exams 11/28/23 15:30 Completed XR knee RT 3V Stat Exams 11/28/23 15:30 Completed BNP [NT Pro Brain Natriuretic Pep.] Stat Lab 11/28/23 15:50 Completed CRP [C-Reactive Protein] Stat Lab 11/28/23 15:50 Completed Complete Blood Count Auto Diff Stat Lab 11/28/23 15:50 Completed Comprehensive Metabolic Panel Stat Lab 11/28/23 15:50 Completed ESR [Erythrocyte Sedimentation Rate] Stat Lab 11/28/23 15:50 Completed Lactic Acid Stat Lab 11/28/23 15:50 Completed Rapid PCR Covid and Flu A/B Stat Lab 11/28/23 15:51 Completed T4 (Thyroxine) Stat Lab 11/28/23 15:50 Completed Thyroid Stimulating Hormone Stat Lab 11/28/23 15:50 Completed Trop I [Troponin I] Stat Lab 11/28/23 15:50 Completed Troponin I Q3H Lab 11/28/23 18:30 Ordered Troponin I Q3H Lab 11/28/23 21:30 Ordered Urinalysis and Microscopic Stat Lab 11/28/23 16:25 Completed Blood Culture Stat Micro 11/28/23 15:40 Received Venous Blood Gas Stat RT 11/28/23 15:28 Completed MDM Narrative Medical Decision Narrative: In summary, this patient is a 48-year-old female presenting to the Emergency Department for evaluation of generally feeling unwell, cough, shortness of breath, lower abdominal wall pain, and fall. Differential diagnoses considered include but are not limited to trauma from fall, pneumonia, respiratory failure, viral syndrome, COPD exacerbation, abdominal wall cellulitis, abdominal wall abscess. Ruling out the most morbid conditions drove assessment. It should be noted patient's history includes morbid obesity, chronic respiratory failure, COPD, type 2 diabetes which are not at goal therapy. This complicates all aspects of care by increasing patient's risk for morbidity. I reviewed patient's past medical records and noted previous evaluations for similar complaints in the past and previous admissions for respiratory failure. On exam, the patient is very anxious appearing but vitals are reassuring on cardiac telemetry. She does have expiratory wheezing, prolonged expiratory phase, and mild accessory muscle use. Workup included broad lab evaluation to evaluate for infectious or metabolic causes of her symptoms as well as cardiac workup. Also obtain scans from head to pelvis to evaluate not only for traumatic injury from fall but also for pneumonia and lower abdominal wall infection. Patient was given DuoNebs x 3 to assess for symptomatic improvement. She was given IV Toradol and oral Tylenol given that she is not feeling well. I independently interpreted CT scan prior to the radiologist read and noted panniculitis. I did not see any fractures and I did not see any evidence of significant pneumonia. Please see their read for final interpretation. Labs were obtained that demonstrated elevated inflammatory markers without other acutely concerning abnormalities. On reassessment, patient had good improvement after administration of interventions above. I feel she likely has a COPD exacerbation as well as cellulitis of her lower abdominal wall, but workup is overall been very reassuring. Vitals are normal on cardiac telemetry, and she is ambulatory throughout the emergency department. She is at her baseline. Given this, I do not feel that admission is required at this time, but she was given oral Bactrim and Keflex to treat her abdominal wall cellulitis as well as oral prednisone to treat her COPD exacerbation. She already has inhalers at home. Ultimately given reassuring exam and workup, I feel that she is appropriate for discharge home with these prescriptions and instructions for close BATTERY ENGINEER follow-up and strict return precautions. Patient was discharged after all questions were answered.
[2023-11-28 15:43] LABS: Lactate Venous 1.6 mmol/L (0.4-2.0); VBG HCO3 29.4 mmol/L (23-30); VBG Oxygen Saturation 77.1 % (50-70); VBG PH 7.36 mmol/L (7.31-7.41); VBG Total CO2 31.1 mmol/L (23-27)
[2023-11-28 15:44] LABS: VBG PCO2 53.4 mmol/L (35-51)
--- NOTE | 2023-11-28 15:44 | PC.NURSE ---
Dr. Aguilar notified of CO2 of 53.4.
[2023-11-28 15:45] VITALS: PULSE 101; O2SAT 98
[2023-11-28 16:00] VITALS: BP 148/87; PULSE 101; O2SAT 98
[2023-11-28 16:04] LABS: Coronavirus 19, PCR Not Detected (NotDetected); Influenza A, PCR Not Detected (NotDetected); Influenza B, PCR Not Detected (NotDetected)
[2023-11-28 16:08] LABS: Basophils % 0.3 % (0.1-2.0); Chloride 101 mmol/L (98-107); Eosinophils # 0.1 K/mm3 (0.0-0.4); Eosinophils % 0.7 % (0.1-12.0); Hematocrit 41.3 % (37.0-47.0); Lymphocytes # 1.1 K/mm3 (0.7-4.5); Lymphocytes % 14.1 % (10-50); Mean Corpuscular HGB Conc 31.5 g/dL (31.8-35.4); Mean Corpuscular Hemoglobin 27.7 pg (27.0-31.2); Mean Corpuscular Volume 88.1 fl (81-99); Mean Platelet Volume 7.9 fl (7.4-10.4); Monocytes # 0.3 K/mm3 (0.1-1.0); Monocytes % 4.1 % (1.7-9.3); Neutrophils # 6.5 K/mm3 (1.8-7.8); Neutrophils % 80.8 % (37.0-80.0); Platelet Count 202 K/mm3 (142-424); Red Blood Count 4.69 M/mm3 (4.20-5.40); Red Cell Distribution Width 17.1 % (11.5-17.5); White Blood Count 8.1 K/mm3 (4.8-10.8)
[2023-11-28 16:09] LABS: Potassium 4.2 mmoL/L (3.5-5.1); Sodium 138 mmol/L (136-145)
[2023-11-28 16:11] LABS: Alanine Aminotransferase 17 U/L (12-78); Alkaline Phosphatase 80 U/L (38-126); Anion Gap 9.2 mEq/L (5-15); Aspartate Amino Transferase 21 U/L (14-36); Bilirubin,Total 0.2 mg/dl (0.2-1.3); Blood Urea Nitrogen 14 mg/dl (7-17); Carbon Dioxide 32 mmol/L (22.0-30.0); Creatinine Clearance Estimated 64 mL/min (50-200); Estimated Glomerular Filt Rate 76 ml/min (>60); GFR (African American) 92 ML/MIN (>60)
[2023-11-28 16:12] LABS: Albumin Level 3.7 g/dl (3.5-5.0); Albumin/Globulin Ratio 1.2 (1.1-1.8); Calcium 8.7 mg/dl (8.4-10.2); Globulin 3.1 g/dL (1.3-3.2); Glucose 127 mg/dl (74-100); Total Protein,Serum 6.8 g/dl (6.3-8.2)
[2023-11-28 16:13] LABS: Lactic Acid 1.5 mmol/L (0.7-2.1)
[2023-11-28 16:16] LABS: C-Reactive Protein 48.6 mg/L (0-4)
--- NOTE | 2023-11-28 16:17 | PC.NURSE ---
rounded on pt, she requested an extra pillow behind her head. pt given extra pillow
[2023-11-28 16:22] LABS: NT Pro Brain Natriuretic Pep. 168 pg/mL (0-125)
--- NOTE | 2023-11-28 16:22 | PC.NURSE ---
pt gone to bathroom to give urine sample
[2023-11-28 16:28] LABS: Troponin I < 0.01 ng/ml (0.00-0.034)
--- NOTE | 2023-11-28 16:28 | PC.NURSE ---
pt back in room
[2023-11-28 16:30] LABS: Microscopic, Urine URINE MICROSCOPIC (MICROSCOPIC)
[2023-11-28 16:31] LABS: T4 (Thyroxine) 6.2 ug/dl (5.53-11.0)
[2023-11-28 16:31] LABS: Appearance,Urine CLEAR (Clear); Bilirubin,Urine Negative (Negative); Blood, Urine Negative (Negative); Color,Urine YELLOW (Yellow); Glucose,Urine (UA) Negative (Negative); Ketones,Urine Negative (Negative); Leukocyte Esterase,Urine Negative (Negative); Nitrate,Urine Negative (Negative); Protein,Urine Negative (Negative); Specific Gravity, Urine 1.015 (1.005-1.030); Urobilinogen,Urine 0.2 EU/dl (0.2)
[2023-11-28 16:46] LABS: Thyroid Stimulating Hormone 1.43 uIU/mL (0.465-4.68)
[2023-11-28 16:53] LABS: Erythrocyte Sedimentation Rate 22 mm/hr (0-20)
[2023-11-28] MEDS: 0.9 % SODIUM CHLORIDE 50 ML VIAL IV (17:06)
[2023-11-28] MEDS: SODIUM CHLORIDE 0.9% 10ML SYR (RAD ONLY) 10 ML IV (17:06)
[2023-11-28] MEDS: IOPAMIDOL-370 (76%);100ML BOTTLE 85 ML IV (17:06)
[2023-11-28 17:30] VITALS: BP 136/84; PULSE 97; O2SAT 96
[2023-11-28] MEDS: ACETAMINOPHEN 500MG TAB 1000 MG PO (18:41)
[2023-11-28] MEDS: SULFA/TRIMETHOPRIM 1 TABLET 1 EACH PO (18:41)
[2023-11-28] MEDS: predniSONE 20MG TAB 40 MG PO (18:41)
[2023-11-28] MEDS: cephALEXin 500MG CAPSULE 500 MG PO (18:42)
[2023-11-28] MEDS: KETOROLAC 30MG/ML VIAL 15 MG IV (18:42)
[2023-11-28] MEDS: IPRATROPIUM/ALBUTEROL 3 ML NEB 9 ML IH (18:48)
[2023-11-28 18:54] VITALS: BP 141/91; PULSE 93; RESP 20; TEMP 37.1; O2SAT 99
== END 2023-11-28 18:56 | disposition home or self-care (01) ==
PROVIDERS: Emergency Provider Emergency Medicine
DX: J44.1 Chronic obstructive pulmonary disease with (acute) exacerbation (principal); F17.210 Nicotine dependence, cigarettes, uncomplicated; R05.9 Cough, unspecified; M79.3 Panniculitis, unspecified; E11.9 Type 2 diabetes mellitus without complications; J96.11 Chronic respiratory failure with hypoxia; I11.0 Hypertensive heart disease with heart failure; I50.30 Unspecified diastolic (congestive) heart failure; E66.2 Morbid (severe) obesity with alveolar hypoventilation; I89.0 Lymphedema, not elsewhere classified; E03.9 Hypothyroidism, unspecified; W19.XXXA Unspecified fall, initial encounter; Z68.45 Body mass index [BMI] 70 or greater, adult
CPT/HCPCS: 70450; 71275; 72125; 72128; 72131; 73502; 73552; 73562; 74177; 80053; 81001; 82803; 83605; 83880; 84436; 84443; 84484; 85025; 85651; 86140; 87040; 87636; 96374; 99285; J1885; J7620; Q9967

== ENCOUNTER 2023-11-29 11:33 | Outpatient (CLI) | payer MEDICAID, SELFPAY ==
--- NOTE | 2023-11-29 | CA_ITS ---
APPROVED REPORT Exam: Pharmacologic Technologist: Leatha Holly, Ht: 5 ft 1 in Wt: 386 lbs BSA: 2.50 m2 HR: 91 bpm BP: 146/92 mmHg Rhythm: NSR Medical History Medications: Lisinopril,,,,, Omeprazole,,,,, Levothyroxine,,,,, Gabapentin,,,,, Diazepam,,,,, Duoneb,,,,, Albuterol,,,,, BenzONATATE,,,,, LaMotigine,,,,, Aldactone,,,,, Cyclobenzaprine,,,,, Trazodone,,,,, Cardiac Risk Factors: HTN, Diabetes (insulin), Smoking Stress Test Details Test: LEXISCAN HR Resting HR: 93 bpm Max Heart Rate (APMHR): 171 bpm Max HR Achieved: 109 bpm Target HR (85% APMHR): 145 bpm % of APMHR: 64 Recovery HR: 95 bpm BP Resting BP: 146.0/92 mmHg Max BP: 152/95 mmHg Recovery BP: 152.0/95.0 mmHg ECG Resting ECG: NSR Stress ECG: No significant ST changes Arrhythmia: None Clinical Exercise duration: 04:01 min Highest Stage Achieved: Exercise capacity: 1.0 METs Stress ECG Conclusion During lexiscan pt experinced SOA, chest heaviness, and head discomfort. No arrhythmias noted. No significant ST changes. Conclusion: Unremarkable lexiscan stress. Myoview images are reported separately. Test Summary REST . . . . . . . Sitting REST . . . . . . . Sitting REST 05:48 . . 93 . 146/ 92 . . Stage 1 01:00 . . 108 . . . . Stage 2 01:00 . . 103 . . . . Stage 3 01:00 . . 96 . 148/ 82 . . Stage 4 01:00 . . 99 . 145/ 85 . . Stage 4 01:01 . . 101 . 145/ 85 . Stop exercise at 04:01 RECOVERY 01:00 . . 97 . . . . RECOVERY 02:00 . . 90 . . . . RECOVERY 03:00 . . 96 . 152/ 95 . . RECOVERY 04:00 . . 93 . 145/ 90 . . RECOVERY 04:12 . . 91 . 145/ 90 . . Electronically signed by : Melissa Jackson MD 11/30/2023 12:28:38
--- NOTE | 2023-11-29 11:34 | NM_ITS ---
APPROVED REPORT Exam: Nuclear Stress Test Indication: Chest pain, SOB, Palpitations, Fatigue, HTN, Family history Patient Location: Outpatient Stress Tech: Leatha MACIEL Tech:Anum Molina, ARRT, RT (R)(N) Ht: 5 ft 1 in Wt: 400 lbs Bra Size: 44D HR: 93 bpm BP: 146/92 mmHg BSA: 2.54 m2 Rhythm: NSR TID: 0.95 BMI: 75.5 History: Chest pain, SOB, Palpitations, Fatigue, HTN, Family history Procedure: Patient received 0.4 mg of intravenous Lexiscan, resting heart rate 93 bpm, resting blood pressure 146/92 mmHg, with Lexiscan maximum heart rate achieved was 109 bpm which is % of the maximum predicted heart rate and blood pressure was 152/95 mmHg. With Lexiscan, patient denied any complaint of chest pain. Cardiac Stress and Resting SPECT Images: Cardiac Stress and Resting SPECT images were obtained using technetium 99m Myoview 31.8 mCi stress and 10.29 mCi at rest. Technically difficult study due to difficult visualization of the LV myocardial borders in the resting images. The patient is unable to lie on her abdomen. Therefore, prone stress imaging could not be performed. This may affect the diagnostic interpretation of the study findings. There is a large sized, moderate, fixed perfusion defect in the inferior LV wall. Gated imaging demonstrates normal global and regional LV systolic function. LVEF is calculated at 67%. Overall, this study is considered technically difficult and non-conclusive. If clinically indicated, further evaluation for ischemia with alternative modalities is recommended. Conclusion: Technically difficult study. Large sized, moderate, fixed perfusion defect in the inferior LV wall. Gated imaging demonstrates normal global and regional LV systolic function. LVEF is calculated at 67%. Overall, this study is considered technically difficult and non-conclusive. If clinically indicated, further evaluation for ischemia with alternative modalities is recommended. Electronically signed by : Melissa Jackson MD 11/30/2023 12:31:51
[2023-11-29] MEDS: REGADENOSON 0.4MG/5ML SYRINGE 0.4 MG IV (13:03)
[2023-11-29] MEDS: SODIUM CHLORIDE 0.9% 10ML SYR (RAD ONLY) 10 ML IV ×2 (13:03)
[2023-11-29] MEDS: ISOTOPE MYOVIEW (PER STUDY) 1 DOSE IV (13:03)
--- NOTE | 2023-11-29 13:08 | CA_ITS ---
APPROVED REPORT EXAM: Comprehensive 2D, Doppler, and color-flow Echocardiogram Wireless Development Manager: Annie Bravo, RCS, RVS Ht: 5 ft 0 in Wt: 386lbs BSA: 2.47 BP: 146/107 mmHg Indications: CP,SOB, YANG, Smoker, Palpitations Echo Enhancing Agent Comments: Lung impedence throughout 2D Dimensions IVSd 1.07 cm LVEF (Visual) 61.70 % PWd 0.97 cm LA Volume 69.60 mL LVDd 5.32 cm LA Volume Index 27.50 mL/m2 (M/F) 16-34 LVDs 3.54 cm Left Atrium 4.21 cm M-Mode Dimensions RVDd 2.25 cm (0.9-2.6) LA Diam 4.38 cm (1.9-4.0) LVDd 4.78 cm (3.5-5.7) LVDs 2.67 cm (3.5-5.7) IVSd 1.22 cm (0.6-1.1) PWd 0.84 cm (0.6-1.1) EF (Teich) 75.30% EPSs 0.71 cm FS 44.10% EDV (Teich) 106.50 mL TAPSE 2.47 (<1.7) ESV (Teich) 26.30 mL LV Diastology E Decel Time 247 (160-240 msec) E/A Ratio 0.87 MED A' 11.00 cm/s LAT A' 10.80 cm/s Aortic Valve SHAYE Index 0.85 cm2/m2 AoV Peak Tonny. 177.0 (50-130 cm/s) AO Peak GR. 12.50 mmHg AO Mean GR. 6.20 (<5 mmHg) AO VTI 32.1 (18-25 cm) SHAYE (VTI) 2.16 (2.5-4.5 cm2) Mitral Valve MV A Velocity 88.0 (40-130 cm/s) E/A Ratio 0.87 MV Mean Gr. 2.60 (<2mmHg) Pulmonary Valve PV Peak Velocity 108.0 (50-150 cm/s) Tricuspid Valve TR P. Velocity 160.00 cm/s RAP Estimate 10.00 mmHg RVSP 20.20 mmHg Left Ventricle The left ventricle is normal size. The left ventricular systolic function is normal. The left ventricular ejection fraction is within the normal range. There is normal left ventricular wall thickness. There is normal LV segmental wall motion. The left ventricular diastolic function is normal. LVEF is 55%. Right Ventricle The right ventricle is normal size. The right ventricular systolic function is normal. Atria The left atrium size is normal. The right atrium size is normal. There is no Doppler evidence of interatrial shunt. Aortic Valve Aortic valve opens well. There is no aortic valvular stenosis. No aortic regurgitation is present. Mitral Valve The mitral valve is normal in structure. No evidence of mitral valve stenosis. There is no mitral valve regurgitation noted. Tricuspid Valve The tricuspid valve leaflets are thin and pliable. Trace tricuspid regurgitation. RVSP is normal. Pulmonic Valve The pulmonary valve is normal in structure. Trace pulmonic regurgitation. Great Vessels The aortic root is normal in size. The ascending aorta is not well-visualized. IVC is normal in size and collapses >50% with inspiration. Pericardium There is no pericardial effusion. Other Information Study Quality: Adequate Conclusion Normal biventricular systolic function. No significant valvular stenosis or regurgitation. Electronically signed by : Melissa Jackson MD 12/03/2023 17:08:21
== END 2023-11-29 23:59 | disposition home or self-care (01) ==
LOC: RAD 11:34
PROVIDERS: PCP Internal Medicine; Visit Provider Internal Medicine
DX: I11.0 Hypertensive heart disease with heart failure (principal); I50.33 Acute on chronic diastolic (congestive) heart failure; R07.9 Chest pain, unspecified; R06.02 Shortness of breath; Z87.891 Personal history of nicotine dependence
CPT/HCPCS: 78452; 93017; 93018; 93270; 93306; A9502; J2785

== ENCOUNTER 2023-12-18 12:39 | Emergency (ER) | payer MEDICAID, SELFPAY ==
--- NOTE | 2023-12-18 | ECG_ITS ---
APPROVED REPORT Exam: Resting ECG HR:103 bpm ECG Measurements Heart Rate 103 AXES NC 154 P 59 QRSd 96 QRS 56 QT 325 T 64 QTc 384 Conclusion SINUS TACHYCARDIA LOW QRS VOLTAGE IN PRECORDIAL LEADS [QRS DEFLECTION < 1.0 mV IN CHEST LEADS] ABNORMAL RHYTHM ECG Electronically signed by : MORGAN VELARDE, 12/18/2023 22:51:54
[2023-12-18 12:40] VITALS: BP 117/84; PULSE 97; RESP 22; TEMP 36.6; O2SAT 96; BMI 75.5
--- NOTE | 2023-12-18 13:20 | XR_ITS ---
FINAL REPORT CLINICAL HISTORY: SOB FINDINGS: 2 views of the chest were obtained . The heart is normal in size. The mediastinum is within normal limits. There is pulmonary vascular congestion with increased interstitial markings which may represent interstitial pulmonary edema or pneumonia. There is no effusion or pneumothorax. Osseous structures are unremarkable. IMPRESSION: Pulmonary vascular congestion with increased interstitial markings which may represent interstitial pulmonary edema or pneumonia. Reviewed, Interpreted and Dictated by Em Rutherford MD Transcribed by Laura Tena Authenticated and [facility]
--- NOTE | 2023-12-18 13:20 | CA_ITS ---
FINAL REPORT TECHNIQUE: Multiple transverse and longitudinal images were performed of right the femoral-popliteal deep venous system with augmentation and compression maneuvers. CLINICAL HISTORY: R calf pain, denies trauma, morbid obesity(400+), HTN, smoker. FINDINGS: Right lower extremity duplex ultrasound demonstrates normal flow in the visualized deep venous system. There is no abnormal echogenicity to suggest thrombus. There is normal compression and augmentation. IMPRESSION: No evidence of right DVT. Reviewed, Interpreted and Dictated by Em Rutherford MD Transcribed by Laura Tena Authenticated and [facility]
--- NOTE | 2023-12-18 13:25 | CT_ITS ---
FINAL REPORT TECHNIQUE: Thin section axial images are obtained through the abdomen and pelvis after intravenous contrast. Reconstruction images were obtained from the axial data. Exam was performed using dose reduction techniques. CLINICAL HISTORY: abd pain COMPARISON: 11/28/2023 FINDINGS: LIVER: Homogeneous. No focal lesion. GALLBLADDER/BILIARY SYSTEM: Gallbladder is absent. No biliary dilatation. SPLEEN: Unremarkable. PANCREAS: Unremarkable. ADRENALS: Unremarkable. SYSTEM: No hydronephrosis. Two hypodense lesions inferior aspect of the right kidney are not simple cysts but stable. Unremarkable urinary bladder. Hysterectomy. GI TRACT: No small bowel obstruction or dilatation. Appendix not seen but no secondary signs of appendicitis. Moderate retained stool. No acute colon abnormality. LYMPH NODES/RETROPERITONEUM/MESENTERY: No lymphadenopathy. No abdominal aortic aneurysm. OTHER: No ascites. Abnormal attenuation lower anterior abdominal wall with skin thickening asymmetric to the left favored to represent worsening abdominal wall cellulitis. No loculated fluid collection. BONES: No acute osseous abnormality. IMPRESSION: Worsening abdominal wall cellulitis without evidence of abscess. Small hypodense right renal lesions are stable but not simple cysts. Consider renal mass protocol in a nonemergent setting. Reviewed, Interpreted and Dictated by Em Rutherford MD Transcribed by Fay Joy Authenticated and [facility]
--- NOTE | 2023-12-18 13:26 | CT_ITS ---
FINAL REPORT TECHNIQUE: Axial imaging of the chest is obtained after the administration of contrast. 3-D MIP reformatted images were also obtained and reviewed per PE protocol. CLINICAL HISTORY: Shortness of breath COMPARISON: 03/10/2023 FINDINGS: Tracheostomy tube is present. There is suboptimal opacification of the pulmonary arteries due to motion artifact. There is no evidence of central pulmonary embolism. There is no aortic dissection or intimal flap. There is no axillary lymphadenopathy. There are mildly prominent mediastinal lymph nodes which are stable. No hilar lymphadenopathy. No nodule or mass seen in the lungs.. There is no pleural or pericardial effusion. No acute osseous abnormality. IMPRESSION: Suboptimal exam due to respiratory motion. No central pulmonary embolism. Stable borderline lymphadenopathy. Reviewed, Interpreted and Dictated by Em Rutherford MD Transcribed by Fay Joy Authenticated and . [facility]
--- NOTE | 2023-12-18 13:27 | HMH.EDGENADL ---
Discharge Plan Disposition Patient Disposition: Home, Self-Care Condition: Fair Prescriptions Prescriptions: New sulfamethoxazole-trimethoprim [Bactrim DS] 800-160 mg tablet 1 tab PO BID 10 Days Qty: 20 0RF levofloxacin 750 mg tablet 750 mg PO DAILY 10 Days Qty: 10 0RF No Action ipratropium-albuterol 0.5 mg-3 mg(2.5 mg base)/3 mL solution for nebulization 3 ml inhalation QID PRN (Reason: shortness of breath or wheezing) 90 Days Qty: 270 3RF Trelegy Ellipta 100-62.5-25 mcg blister with device 1 inh inhalation DAILY 90 Days Qty: 90 2RF duloxetine 30 mg capsule,delayed release(DR/EC) 90 mg PO DAILY 60 Days Qty: 180 6RF torsemide 100 mg tablet 100 mg PO DAILY 90 Days Qty: 90 4RF omeprazole 40 mg capsule,delayed release(DR/EC) 80 mg PO DAILY 90 Days Qty: 180 4RF acetylcysteine 100 mg/mL (10 %) solution 2 ml inhalation Q8H PRN (Reason: cough) Qty: 100 0RF formoterol fumarate [Perforomist] 20 mcg/2 mL solution for nebulization 2 ml inhalation BID 30 Days Qty: 120 1RF budesonide 0.5 mg/2 mL suspension for nebulization 0.5 mg inhalation Q12H Qty: 120 1RF propranolol 10 mg tablet 10 mg PO BID Qty: 60 5RF losartan 25 mg tablet 25 mg PO DAILY Qty: 30 5RF magnesium oxide 400 mg (241.3 mg magnesium) tablet 800 mg PO DAILY Qty: 60 5RF fluticasone propionate [Flonase Allergy Relief] 50 mcg/actuation spray,suspension 1 spray intranasal DAILY Qty: 16 2RF Rx Instructions: administer into each nostril gabapentin 800 mg tablet 800 mg PO TID Qty: 90 1RF diazepam 5 mg tablet 2.5 mg PO TID 30 Days Qty: 45 0RF oxycodone-acetaminophen 10-325 mg tablet 1 tab PO QID PRN (Reason: pain) 30 Days Qty: 120 0RF sumatriptan succinate 100 mg tablet 100 mg PO NEEDED PRN (Reason: Migraine Headache) Qty: 10 2RF lamotrigine 100 mg tablet 100 mg PO DAILY Qty: 30 3RF benzonatate 200 mg capsule 200 mg PO TID PRN (Reason: Cough) Qty: 60 1RF Linzess 72 mcg capsule 72 mcg PO DAILY Qty: 90 0RF neomycin-polymyxin B-dexameth 3.5mg/mL-10,000 unit/mL-0.1 % drops,suspension 1 drp ophthalmic (eye) Q8H 14 Days Qty: 5 0RF spironolactone [Aldactone] 50 mg tablet 50 mg PO DAILY 90 Days Qty: 90 4RF trazodone 100 mg tablet See Rx Instructions .ROUTE .COMPLEX Qty: 90 0RF Dose Instruction: TAKE ONE TABLET BY MOUTH EVERY DAY AT BEDTIME FOR SLEEP Rx Instructions: TAKE ONE TABLET BY MOUTH EVERY DAY AT BEDTIME FOR SLEEP cyclobenzaprine 5 mg tablet 5 mg PO TID 90 Days Qty: 270 3RF promethazine 25 mg tablet See Rx Instructions .ROUTE .COMPLEX Qty: 30 2RF Dose Instruction: TAKE ONE TABLET BY MOUTH THREE TIMES DAILY NEEDED FOR NAUSEA AND VOMITING Rx Instructions: TAKE ONE TABLET BY MOUTH THREE TIMES DAILY NEEDED FOR NAUSEA AND VOMITING Wegovy 0.25 mg/0.5 mL pen injector 0.25 mg SQ WEEKLY Qty: 2 0RF Rx Instructions: administer weeks 1 through 4 of therapy bisacodyl [Dulcolax (bisacodyl)] 5 mg tablet,delayed release (DR/EC) 5 mg PO HS PRN (Reason: constipation) 15 Days Qty: 15 3RF ondansetron 4 mg tablet,disintegrating 4 mg PO Q6H PRN (Reason: nausea and vomiting) Qty: 30 0RF albuterol sulfate 90 mcg/actuation HFA aerosol inhaler 1 puff inhalation Q6HP PRN (Reason: Shortness Of Breath) Qty: 8.5 2RF levofloxacin 500 mg tablet 500 mg PO DAILY 14 Days Qty: 14 0RF levothyroxine 25 mcg tablet See Rx Instructions .ROUTE .COMPLEX Qty: 90 0RF Dose Instruction: TAKE ONE TABLET BY MOUTH EVERY DAY AT 7:00am Rx Instructions: TAKE ONE TABLET BY MOUTH EVERY DAY AT 7:00am (DME) OneTouch Verio test strips Strip See Rx Instructions .Route Rx Instructions: As directed (DME) lancets [OneTouch Delica Plus Lancet] 33 gauge misc See Rx Instructions .Route Rx Instructions: As directed mupirocin 2 % ointment 1 applic topical BID prednisone 50 mg tablet 50 mg PO DAILY 5 Days Qty: 5 0RF Referrals Follow up/Referrals: Owen Martinez DO [Primary Care Provider] - See instructions Activity Restrictions/Add. Instructions Additional Instructions/Restrictions: As you have decided to leave AMA, you understand the risks versus benefits of further testing and treatment. I have written for outpatient antibiotics to assist with your pneumonia and abdominal cellulitis. Please take these as prescribed. Please continue to use your breathing treatments at home as discussed. I do recommend smoking cessation at this time. Please follow-up with your primary care provider in the next few days. Please return to the ED for any new or worsening symptoms and if your symptoms do not improve with antibiotics Clinical Impressions Clinical Impression: Cellulitis, abdominal wall, Abdominal pain, Shortness of breath, Elevated brain natriuretic peptide (BNP) level, Right leg swelling, PNA (pneumonia) Discharge ED Provider: Wes Harris Adult HPI General Chief complaint: Shortness of Breath/Dyspnea Stated complaint: Chest Pain Time Seen by Provider: 12/18/23 13:12 Mode of Arrival: Family Vehicle Source of Information: Patient Limitations: No Limitations Description of Symptoms (Recalled from ER Triage Doc. by RN): cellulitis of stomach, swelling of right leg, and soa with mucus plugs History of Present Illness HPI narrative: 48-year-old female with past medical history significant for COPD on 3.5 L of oxygen at bedtime, HTN, IBS, IRLANDA, pickwickian syndrome, schizophrenia, depression, DM 2, CHF, trach dependent, presents today for evaluation concerning shortness of breath which she states has been present over the past few days. She states that she has had mucous plugging and today has been able to cough up a mucous plug. Reports that her shortness of breath has been improved since that time however is still persistent. She also reports having a fever with a Tmax of 102 ?F on yesterday. She took ibuprofen around 9:30 AM this morning. Also notes that she is able to walk around her house however does not walk much and has home health for assistance however over the past few days she has noted right lower extremity swelling with associated calf pain. Denies any history of blood clots in her lungs or legs. She also notes significant erythema over her abdomen over the past few days. Denies having any chest pain, nausea, vomiting, dysuria, hematuria or any other associated symptoms at this time. Related Data Home Medications Medication Instructions Recorded Confirmed blood sugar diagnostic (OneTouch 01/01/23 11/29/23 Verio test strips) lancets 33 gauge (OneTouch Delica 01/01/23 11/29/23 Plus Lancet) mupirocin 2 % topical ointment 1 applic topical BID 07/26/23 11/29/23 Previous Rx's Medication Instructions Recorded ipratropium 0.5 mg-albuterol 3 mg 3 ml inhalation QID PRN shortness 02/09/23 (2.5 mg base)/3 mL nebulization of breath or wheezing 90 days #270 soln mL fluticasone propionate 50 1 spray intranasal DAILY #16 grams 02/17/23 mcg/actuation nasal spray,suspension (Flonase Allergy Relief) sumatriptan succinate 100 mg tablet 100 mg PO NEEDED PRN Migraine 05/19/23 Headache #10 tabs lamotrigine 100 mg tablet 100 mg PO DAILY mood #30 tabs 05/24/23 benzonatate 200 mg capsule 200 mg PO TID PRN Cough #60 caps 08/29/23 linaclotide 72 mcg capsule 72 mcg PO DAILY constipation #90 08/29/23 (Linzess) caps duloxetine 30 mg capsule,delayed 90 mg (3 x 30 mg) PO DAILY Mood 60 09/11/23 release days #180 caps omeprazole 40 mg capsule,delayed 80 mg (2 x 40 mg) PO DAILY 90 days 09/11/23 release #180 caps torsemide 100 mg tablet 100 mg PO DAILY Fluid 90 days #90 09/11/23 tabs ofnrxfby-tesjvxgws-enqvygfe 3.5 1 drp ophthalmic (eye) Q8H 14 days 09/12/23 mg/mL-10,000 unit/mL-0.1% eye drops #5 mL fluticasone fur. 100 mcg-umeclid 1 inh inhalation DAILY 90 days #90 09/19/23 62.5 mcg-vilant 25 mcg ea inhalat.powder (Trelegy Ellipta) gabapentin 800 mg tablet 800 mg PO TID Neuropathy #90 tabs 11/09/23 spironolactone 50 mg tablet 50 mg PO DAILY 90 days #90 tabs 06/06/24 (Aldactone) acetylcysteine 100 mg/mL (10 %) 2 ml inhalation Q8H PRN cough #100 11/21/23 solution mL losartan 25 mg tablet 25 mg PO DAILY #30 tabs 11/21/23 magnesium oxide 400 mg (241.3 mg 800 mg (2 x 400 mg (241.3 mg 11/21/23 magnesium) tablet magnesium)) PO DAILY #60 tabs propranolol 10 mg tablet 10 mg PO BID #60 tabs 11/21/23 budesonide 0.5 mg/2 mL suspension 0.5 mg (2 mL) inhalation Q12H #120 11/22/23 for nebulization mL formoterol fumarate 20 mcg/2 mL 2 ml inhalation BID 30 days #120 mL 11/22/23 solution for nebulization (Perforomist) cyclobenzaprine 5 mg tablet 5 mg PO TID Muscle relaxer 90 days 11/24/23 #270 tabs trazodone 100 mg tablet See Rx Instructions .Route 11/24/23 .COMPLEX #90 tabs prednisone 50 mg tablet 50 mg PO DAILY 5 days #5 tabs 11/28/23 diazepam 5 mg tablet 2.5 mg (1/2 x 5 mg) PO TID 30 days 11/29/23 #45 tabs oxycodone-acetaminophen 10 mg-325 1 tab PO QID PRN pain 30 days #120 11/29/23 mg tablet tabs bisacodyl 5 mg tablet,delayed 5 mg PO HS PRN constipation 15 11/30/23 release (Dulcolax (bisacodyl)) days #15 tabs ondansetron 4 mg disintegrating 4 mg PO Q6H PRN nausea and 11/30/23 tablet vomiting #30 tabs promethazine 25 mg tablet See Rx Instructions .Route 11/30/23 .COMPLEX #30 tabs semaglutide (weight loss) 0.25 0.25 mg (0.5 mL) SQ WEEKLY #2 mL 11/30/23 mg/0.5 mL subcutaneous pen injector (Panfilo) albuterol sulfate 90 mcg/actuation 1 puff inhalation Q6HP PRN 12/11/23 aerosol inhaler Shortness Of Breath #8.5 grams levofloxacin 500 mg tablet 500 mg PO DAILY 14 days #14 tabs 12/15/23 levothyroxine 25 mcg tablet See Rx Instructions .Route 12/15/23 .COMPLEX #90 tabs levofloxacin 750 mg tablet 750 mg PO DAILY 10 days #10 tabs 12/18/23 sulfamethoxazole 800 1 tab PO BID 10 days #20 tabs 12/18/23 mg-trimethoprim 160 mg tablet (Bactrim DS) Allergies Allergy/AdvReac Type Severity Reaction Status Date / Time doxycycline Allergy Severe Blister Verified 11/29/23 08:52 amoxicillin AdvReac Verified 11/29/23 08:52 nitrofurantoin AdvReac Verified 11/29/23 08:52 [From Macrobid] [facility] Disclaimer: The information contained in this section may have been updated after the patient was seen, as this information can be updated by other users. Medical History Palpitations Ear pain, right Acute and chronic respiratory failure with hypercapnia This patient is following with pulmonary. Additionally she has CPAP and O2 at bedtime. PTSD (post-traumatic stress disorder) Chest pain Generalized anxiety disorder Recurrent major depression resistant to treatment Following with Carolina Stark. Sleep apnea History of ectopic History of hyperkalemia Diastolic congestive heart failure Paranoid schizophrenia Uses bilevel positive airway pressure (BPAP) ventilation at home History of sleep apnea History of asthma Cellulitis of right lower extremity Acute and chronic respiratory failure with hypercapnia Pneumonia Acute and chronic respiratory failure Right lower lobe pneumonia History of smoking 30 or more pack years Obesity hypoventilation syndrome Asthma Chronic respiratory failure with hypercapnia Severe sepsis COVID-19 Acute and chronic respiratory failure Pneumonia Tracheostomy in place Edema Sinus tachycardia Dizziness Diastolic dysfunction Acute on chronic diastolic heart failure Respiratory failure with hypoxia and hypercapnia Congestive heart failure Acute on chronic diastolic heart failure Elevated d-dimer PAC (premature atrial contraction) Chest pain Dyspnea HTN (hypertension) COPD (chronic obstructive pulmonary disease) Tobacco abuse Strongly encouraged to quit smoking. Abnormal stress test SOB (shortness of breath) Angina, class III Obesity Hypothyroidism (~11/21/17) Asthma Insomnia Depression Anxiety Neuropathy Surgical History History of colonoscopy History of left knee surgery History of hysterectomy Family History Other No significant family history Social History Smoking Status: Current some day smoker tobacco type: cigarettes packs per day: 1 smoking status stop date: 02/2022 alcohol intake: former substance use type: marijuana current occupational status: disabled Travel in the last 8 weeks: None household members: family housing: apartment number of children: 0 current occupational exposures/hazards: No caffeine: Yes ROS Obtained: Yes All systems reviewed & no additional complaints except as documented Physical Exam General General appearance: alert, in no apparent distress and obese Head Head exam: atraumatic and normocephalic Eye Eye exam: Present normal appearance, PERRL and EOMI ENT ENT exam: Present normal oropharynx, mucous membranes moist and other (Trach in place. Patient is verbalizing appropriately.) Neck Neck exam: Present full ROM; Absent meningismus Respiratory Respiratory exam: Present wheezes (Diffuse expiratory); Absent respiratory distress, stridor or accessory muscle use Cardiovascular Cardiovascular exam: Present normal rhythm Abdominal Exam Abdominal exam: Present soft and tenderness (Generalized tenderness to palpation. Significant erythema across the abdomen.); Absent distention, guarding, rebound or rigidity Extremities Exam Extremities exam: Present tenderness, edema and other (Right lower extremity is more swollen in comparison to the left. There is calf tenderness to palpation on the right.) Neurological Exam Neurological exam: Present alert, oriented X3 and CN II-XII intact; Absent motor sensory deficit Psychiatric Psychiatric exam: Present normal affect and normal mood Skin Skin exam: Present warm and dry Medical Decision Making Medical Records Medical records reviewed: Yes I reviewed the patient's medical records. Estrada Inquiry Pt receiving controlled substance: No Estrada was queried for this patient: No Vital Signs: 12/18/23 12:40 12/18/23 13:30 12/18/23 14:00 Temperature 97.9 F Temperature Source Oral Pulse Rate 97 H 92 H Pulse Rate [Right Radial] 97 H Respiratory Rate 22 15 17 Blood Pressure 123/91 H 132/84 Blood Pressure [Right Arm] 117/84 Blood Pressure Mean [Right Arm] 95 02 Sat by Pulse Oximetry 96 95 97 Oxygen Delivery Method Room Air Nasal Cannula Nasal Cannula 12/18/23 14:18 12/18/23 14:18 Temperature Temperature Source Pulse Rate 89 89 Pulse Rate [Right Radial] Respiratory Rate Blood Pressure Blood Pressure [Right Arm] Blood Pressure Mean [Right Arm] 02 Sat by Pulse Oximetry Oxygen Delivery Method Lab Data Lab Results 12/18/23 13:30: WBC 6.0, RBC 4.57, Hgb 12.9, Hct 40.3, MCV 88.2, MCH 28.4, MCHC 32.2, RDW 17.6 H, Plt Count 190, MPV 8.4, Neut % (Auto) 77.5, Lymph % (Auto) 16.8, [place] % (Auto) 5.1, Eos % (Auto) 0.2, Baso % (Auto) 0.4, Neut # (Auto) 4.6, Lymph # (Auto) 1.0, [place] # (Auto) 0.3, Eos # (Auto) 0.0, Baso # (Auto) 0.0, ESR 28 H, D-Dimer 0.46, VBG pH 7.36, VBG pCO2 54.0 H, VBG pO2 39.6, VBG HCO3 29.9, VBG Total CO2 31.5 H, VBG O2 Saturation 76.7 H, VBG Base Excess 4.5 H, VBG Lactic Acid 2.1 H, Sodium 139, Potassium 3.8, Chloride 102, Carbon Dioxide 33 H, Anion Gap 7.8, BUN 11, Creatinine 0.70, Estimated Creat Clear 73, Estimated GFR 89, Est GFR ( Amer) 108, Glucose 105 H, Calcium 8.9, Total Bilirubin 0.5, AST 28, ALT 20, Alkaline Phosphatase 80, Troponin I < 0.01, C-Reactive Protein 41.8 H, NT-Pro-B Natriuret Pep 317 H, Total Protein 7.4, Albumin 4.0, Globulin 3.4 H, Albumin/Globulin Ratio 1.2, Lipase 31 12/18/23 13:37: Lactate 0.9 12/18/23 13:30 12/18/23 13:30 Orders (Tests/Meds): ED MEDICATIONS Discontinued Medications Generic Name Dose Route Start Last Admin Trade Name Freq PRN Reason Stop Dose Admin Albuterol/Ipratropium 9 ml 12/18/23 13:25 12/18/23 14:17 Ipratropium/Albuterol 3 Ml Neb IH 12/18/23 13:26 9 ml ONCE ONE Administration Iopamidol 100 ml 12/18/23 14:44 12/18/23 14:45 Iopamidol-370 (76%);100ml Bottle IV 12/18/23 14:45 100 ml ONCE ONE Administration Sodium Chloride 50 ml 12/18/23 14:44 12/18/23 14:45 0.9 % Sodium Chloride 50 Ml Vial IV 12/18/23 14:45 50 ml ONCE ONE Administration Sodium Chloride 10 ml 12/18/23 14:44 12/18/23 14:45 Sodium Chloride 0.9% 10ml Syr (Rad Only) IV 12/18/23 14:45 10 ml ONCE ONE Administration ORDERS Category Date Time Status CT abdomen pelvis w con Stat Cat Scan 12/18/23 13:25 Taken CTA Chest [CT angio chest PE protocol] Stat Cat Scan 12/18/23 13:26 Taken CXR 2 view (NOT portable) [XR chest 2V] Stat Exams 12/18/23 13:20 Taken BNP [NT Pro Brain Natriuretic Pep.] Stat Lab 12/18/23 13:30 Completed CBC w/Auto Diff [Complete Blood Count Auto Diff] Stat Lab 12/18/23 13:30 Completed CMP [Comprehensive Metabolic Panel] Stat Lab 12/18/23 13:30 Completed CRP [C-Reactive Protein] Stat Lab 12/18/23 13:30 Completed D-Dimer Stat Lab 12/18/23 13:30 Completed ESR [Erythrocyte Sedimentation Rate] Stat Lab 12/18/23 13:30 Completed Lactic Acid Stat Lab 12/18/23 13:37 Completed Lipase Stat Lab 12/18/23 13:30 Completed Trop I [Troponin I] Stat Lab 12/18/23 13:30 Completed Troponin I Q3H Lab 12/18/23 16:30 Ordered Troponin I Q3H Lab 12/18/23 19:30 Ordered VBG [Venous Blood Gas] Stat RT 12/18/23 13:30 Completed CA venous doppler LE RT Stat Y 12/18/23 13:20 Completed Medical Decision Narrative: 48-year-old female with past medical history significant for COPD on 3.5 L of oxygen at bedtime, HTN, IBS, IRLANDA, pickwickian syndrome, schizophrenia, depression, DM 2, CHF, trach dependent, presents today for evaluation concerning shortness of breath which she states has been present over the past few days. She states that she has had mucous plugging and today has been able to cough up a mucous plug. Reports that her shortness of breath has been improved since that time however is still persistent. She also reports having a fever with a Tmax of 102 ?F on yesterday. She took ibuprofen around 9:30 AM this morning. Also notes that she is able to walk around her house however does not walk much and has home health for assistance however over the past few days she has noted right lower extremity swelling with associated calf pain. Denies any history of blood clots in her lungs or legs. She also notes significant erythema over her abdomen over the past few days. On assessment she was hemodynamically stable and in no acute distress. Afebrile. Chest auscultation was with diffuse expiratory wheezes. Abdomen was soft and nondistended however was generally tender to palpation with overlying erythematous skin changes. Right lower extremity was more swollen in comparison to the left and there is also calf tenderness on the right. Palpable DP pulses bilaterally. She did have a trach in place that did not appear to be obstructed and she was able to verbalize appropriately. Differential diagnoses include not limited to STEMI, NSTEMI, CHF exacerbation, COPD exacerbation, pneumonia, pleural effusion, DVT, pulmonary embolism, cellulitis, among others. EKG personally interpreted by me and was remarkable for sinus tachycardia with a rate of 103 bpm. No ischemic changes noted. Labs today do not show an elevation in WBC at 6. ESR elevated at 28. D-dimer 0.46. VBG with pH of 7.36. pCO2 of 54. Lactate of 2.1 on VBG. Lactate normal at 0.9 on lab draw. Initial troponin less than 0.01. CRP elevated at 41.8. BNP elevated at 317. Chest x-ray on my informal interpretation appears to show a retrocardiac pneumonia and a right middle lobe consolidation. DVT ultrasound did not show any findings concerning for DVT. CTA chest and CT abdomen pelvis were also ordered however final results are pending at this time. I did reassess patient and she was resting comfortably on stretcher. She stated that her shortness of breath was improved at this time. I discussed current ED workup and results. Patient at this time noted that she desires to go home and did not want any further interventions in the ED. I discussed risks versus benefits especially in the setting of CT imaging that had not resulted yet and in the setting of her symptoms and her cellulitis. Patient again noted her desire to be discharged from the hospital. She noted that she understood the risks and benefits. I will provide her with outpatient antibiotics to assist with her pneumonia and cellulitis. She will continue to take her medications appropriately and will follow-up with her providers. Provided her with strict return to ED precautions. She verbalized understanding and agreement with plan and was allowed to leave the hospital AMA. Critical Care Critical Care Time Critical Care Time: No
[2023-12-18 13:30] VITALS: BP 123/91; PULSE 97; RESP 15; O2SAT 95
[2023-12-18 13:36] LABS: VBG Base Excess 4.5 mmol/L (-2.4-2.3); VBG HCO3 29.9 mmol/L (23-30); VBG Oxygen Saturation 76.7 % (50-70); VBG PH 7.36 mmol/L (7.31-7.41); VBG PO2 39.6 mmol/L (28-40); VBG Total CO2 31.5 mmol/L (23-27)
[2023-12-18 13:41] LABS: Alanine Aminotransferase 20 U/L (12-78); Albumin/Globulin Ratio 1.2 (1.1-1.8); Alkaline Phosphatase 80 U/L (38-126); Anion Gap 7.8 mEq/L (5-15); Aspartate Amino Transferase 28 U/L (14-36); Bilirubin,Total 0.5 mg/dl (0.2-1.3); Blood Urea Nitrogen 11 mg/dl (7-17); Calcium 8.9 mg/dl (8.4-10.2); Carbon Dioxide 33 mmol/L (22.0-30.0); Chloride 102 mmol/L (98-107); Creatinine Clearance Estimated 73 mL/min (50-200); Estimated Glomerular Filt Rate 89 ml/min (>60); GFR (African American) 108 ML/MIN (>60); Globulin 3.4 g/dL (1.3-3.2); Glucose 105 mg/dl (74-100); Lipase 31 U/L (23-300); Potassium 3.8 mmoL/L (3.5-5.1); Sodium 139 mmol/L (136-145); Total Protein,Serum 7.4 g/dl (6.3-8.2)
[2023-12-18 13:47] LABS: C-Reactive Protein 41.8 mg/L (0-4); D-Dimer 0.46 ug/mL (0.0-0.5)
[2023-12-18 13:56] LABS: NT Pro Brain Natriuretic Pep. 317 pg/mL (0-125)
[2023-12-18 14:00] VITALS: BP 132/84; PULSE 92; RESP 17; O2SAT 97
[2023-12-18 14:07] LABS: Basophils % 0.4 % (0.1-2.0); Eosinophils % 0.2 % (0.1-12.0); Hematocrit 40.3 % (37.0-47.0); Hemoglobin 12.9 g/dL (12.2-16.2); Lymphocytes % 16.8 % (10-50); Mean Corpuscular HGB Conc 32.2 g/dL (31.8-35.4); Mean Corpuscular Hemoglobin 28.4 pg (27.0-31.2); Mean Corpuscular Volume 88.2 fl (81-99); Mean Platelet Volume 8.4 fl (7.4-10.4); Monocytes # 0.3 K/mm3 (0.1-1.0); Monocytes % 5.1 % (1.7-9.3); Neutrophils # 4.6 K/mm3 (1.8-7.8); Neutrophils % 77.5 % (37.0-80.0); Platelet Count 190 K/mm3 (142-424); Red Blood Count 4.57 M/mm3 (4.20-5.40); Red Cell Distribution Width 17.6 % (11.5-17.5); Troponin I < 0.01 ng/ml (0.00-0.034)
[2023-12-18 14:15] LABS: Lactic Acid 0.9 mmol/L (0.7-2.1)
[2023-12-18 14:17] LABS: Lactate Venous 2.1 mmol/L (0.4-2.0)
[2023-12-18] MEDS: IPRATROPIUM/ALBUTEROL 3 ML NEB 9 ML IH (14:17)
[2023-12-18 14:18] VITALS: PULSE 89
[2023-12-18] MEDS: 0.9 % SODIUM CHLORIDE 50 ML VIAL IV (14:45)
[2023-12-18] MEDS: IOPAMIDOL-370 (76%);100ML BOTTLE 100 ML IV (14:45)
[2023-12-18] MEDS: SODIUM CHLORIDE 0.9% 10ML SYR (RAD ONLY) 10 ML IV (14:45)
--- NOTE | 2023-12-18 15:33 | PC.NURSE ---
Pt rang out and asked if she could have something to drink and a blanket. checked with the Doctor and water was ok for the pt. Also blankets were delivered to her
[2023-12-18 15:47] LABS: Erythrocyte Sedimentation Rate 28 mm/hr (0-20)
[2023-12-18 16:23] VITALS: BP 00/0; PULSE 0; RESP 0; TEMP -17.7; TEMP 0
--- NOTE | 2023-12-18 16:25 | PC.NURSE ---
dr pizarro spoke with pt and pt is requesting to go home. dr pizarro explained risk of leaving against medical advice and pt still would like to leave. AMA form signed and patient taken out and left with father.
[2023-12-18 17:38] LABS: Reflex Lactic Add Lactic Reflex
== END 2023-12-18 16:20 | disposition home or self-care (01) ==
PROVIDERS: Emergency Provider Emergency Medicine; PCP Internal Medicine
DX: J18.9 Pneumonia, unspecified organism (principal); R06.02 Shortness of breath; R00.0 Tachycardia, unspecified; L03.311 Cellulitis of abdominal wall; R10.84 Generalized abdominal pain; R79.89 Other specified abnormal findings of blood chemistry; R22.41 Localized swelling, mass and lump, right lower limb; F17.210 Nicotine dependence, cigarettes, uncomplicated; J44.9 Chronic obstructive pulmonary disease, unspecified; I11.0 Hypertensive heart disease with heart failure; I50.30 Unspecified diastolic (congestive) heart failure; E11.9 Type 2 diabetes mellitus without complications; Z93.0 Tracheostomy status; Z79.85 Long-term (current) use of injectable non-insulin antidiabetic drugs; Z99.81 Dependence on supplemental oxygen
CPT/HCPCS: 71046; 71275; 74177; 80053; 82803; 83605; 83690; 83880; 84484; 85025; 85378; 85651; 86140; 93005; 93971; 99285; J7620; Q9967

== ENCOUNTER 2023-12-27 23:20 | Inpatient (IN) | payer MEDICAID, SELFPAY ==
[2023-12-27 23:21] VITALS: BP 166/71; PULSE 115; RESP 25; TEMP 37.1; O2SAT 94; BMI 76.3
--- NOTE | 2023-12-27 23:23 | HMH.EDGENADL ---
Discharge Plan Disposition Patient Disposition: Admitted Clinical Impressions Clinical Impression: Abdominal wall cellulitis Respiratory failure Qualifiers: Chronicity: acute on chronic Respiratory failure complication: hypoxia and hypercapnia Qualified Code(s): J96.21 - Acute and chronic respiratory failure with hypoxia Discharge ED Provider: Dean Ornelas General Adult HPI General Chief complaint: Shortness of Breath/Dyspnea Stated complaint: pneumonia, cellulitis, condition has not improved Time Seen by Provider: 12/27/23 23:23 History of Present Illness HPI narrative: 48-year-old female with history of morbid obesity, prior COVID status post trach, lymphedema, hypothyroidism, heart failure, diabetes, chronic respiratory failure presents for multiple complaints including worsening abdominal wall redness and pain and worsening respiratory symptoms.. Her primary complaint is worsening abdominal wall redness and pain. She reports that it has been spreading. She also reports that her respiratory symptoms have not improved. She was seen here approximately a week ago and was diagnosed with pneumonia and abdominal wall cellulitis. She was encouraged to be admitted but she ultimately decided to leave against medical advice. Placed on Bactrim and Levaquin which she has been taking without improvement in symptoms. Related Data Home Medications ?Medication ?Instructions ?Recorded ?Confirmed blood sugar diagnostic (OneTouch 01/01/23 11/29/23 Verio test strips) lancets 33 gauge (OneTouch Delica 01/01/23 11/29/23 Plus Lancet) mupirocin 2 % topical ointment 1 applic topical BID 07/26/23 11/29/23 Previous Rx's ?Medication ?Instructions ?Recorded ipratropium 0.5 mg-albuterol 3 mg 3 ml inhalation QID PRN shortness 02/09/23 (2.5 mg base)/3 mL nebulization of breath or wheezing 90 days #270 soln mL sumatriptan succinate 100 mg tablet 100 mg PO NEEDED PRN Migraine 05/19/23 Headache #10 tabs benzonatate 200 mg capsule 200 mg PO TID PRN Cough #60 caps 08/29/23 linaclotide 72 mcg capsule 72 mcg PO DAILY constipation #90 08/29/23 (Linzess) caps duloxetine 30 mg capsule,delayed 90 mg (3 x 30 mg) PO DAILY Mood 60 09/11/23 release days #180 caps omeprazole 40 mg capsule,delayed 80 mg (2 x 40 mg) PO DAILY 90 days 09/11/23 release #180 caps torsemide 100 mg tablet 100 mg PO DAILY Fluid 90 days #90 09/11/23 tabs tirepaac-fnwetaelp-xegbqewc 3.5 1 drp ophthalmic (eye) Q8H 14 days 09/12/23 mg/mL-10,000 unit/mL-0.1% eye drops #5 mL fluticasone fur. 100 mcg-umeclid 1 inh inhalation DAILY 90 days #90 09/19/23 62.5 mcg-vilant 25 mcg ea inhalat.powder (Trelegy Ellipta) gabapentin 800 mg tablet 800 mg PO TID Neuropathy #90 tabs 11/09/23 spironolactone 50 mg tablet 50 mg PO DAILY 90 days #90 tabs 11/09/23 (Aldactone) acetylcysteine 100 mg/mL (10 %) 2 ml inhalation Q8H PRN cough #100 11/21/23 solution mL losartan 25 mg tablet 25 mg PO DAILY #30 tabs 11/21/23 magnesium oxide 400 mg (241.3 mg 800 mg (2 x 400 mg (241.3 mg 11/21/23 magnesium) tablet magnesium)) PO DAILY #60 tabs propranolol 10 mg tablet 10 mg PO BID #60 tabs 11/21/23 budesonide 0.5 mg/2 mL suspension 0.5 mg (2 mL) inhalation Q12H #120 11/22/23 for nebulization mL formoterol fumarate 20 mcg/2 mL 2 ml inhalation BID 30 days #120 mL 11/22/23 solution for nebulization (Perforomist) cyclobenzaprine 5 mg tablet 5 mg PO TID Muscle relaxer 90 days 11/24/23 #270 tabs trazodone 100 mg tablet See Rx Instructions .Route 11/24/23 .COMPLEX #90 tabs prednisone 50 mg tablet 50 mg PO DAILY 5 days #5 tabs 11/28/23 diazepam 5 mg tablet 2.5 mg (1/2 x 5 mg) PO TID 30 days 11/29/23 #45 tabs oxycodone-acetaminophen 10 mg-325 1 tab PO QID PRN pain 30 days #120 11/29/23 mg tablet tabs bisacodyl 5 mg tablet,delayed 5 mg PO HS PRN constipation 15 11/30/23 release (Dulcolax (bisacodyl)) days #15 tabs ondansetron 4 mg disintegrating 4 mg PO Q6H PRN nausea and 11/30/23 tablet vomiting #30 tabs promethazine 25 mg tablet See Rx Instructions .Route 11/30/23 .COMPLEX #30 tabs semaglutide (weight loss) 0.25 0.25 mg (0.5 mL) SQ WEEKLY #2 mL 11/30/23 mg/0.5 mL subcutaneous pen injector (Wegovy) albuterol sulfate 90 mcg/actuation 1 puff inhalation Q6HP PRN 12/11/23 aerosol inhaler Shortness Of Breath #8.5 grams levothyroxine 25 mcg tablet See Rx Instructions .Route 12/15/23 .COMPLEX #90 tabs acetylcysteine 600 mg capsule 600 mg PO DAILY PRN cough #30 caps 12/22/23 fluticasone propionate 50 1 spray intranasal DAILY #16 grams 12/22/23 mcg/actuation nasal spray,suspension (Flonase Allergy Relief) lamotrigine 100 mg tablet See Rx Instructions .Route 12/22/23 .COMPLEX #30 tabs clindamycin HCl 300 mg capsule 300 mg PO Q8H 10 days #30 caps 12/27/23 Allergies Allergy/AdvReac Type Severity Reaction Status Date / Time doxycycline Allergy Severe Blister Verified 11/29/23 08:52 Sulfa (Sulfonamide AdvReac Intermediate Rash Verified 12/27/23 23:57 Antibiotics) amoxicillin AdvReac Verified 11/29/23 08:52 nitrofurantoin AdvReac Verified 11/29/23 08:52 [From Macrobid] [facility] Disclaimer: The information contained in this section may have been updated after the patient was seen, as this information can be updated by other users. Medical History Palpitations Ear pain, right Acute and chronic respiratory failure with hypercapnia This patient is following with pulmonary. Additionally she has CPAP and O2 at bedtime. PTSD (post-traumatic stress disorder) Chest pain Generalized anxiety disorder Recurrent major depression resistant to treatment Following with [facility]. Sleep apnea History of ectopic History of hyperkalemia Diastolic congestive heart failure Paranoid schizophrenia Uses bilevel positive airway pressure (BPAP) ventilation at home History of sleep apnea History of asthma Cellulitis of right lower extremity Acute and chronic respiratory failure with hypercapnia Pneumonia Acute and chronic respiratory failure Right lower lobe pneumonia History of smoking 30 or more pack years Obesity hypoventilation syndrome Asthma Chronic respiratory failure with hypercapnia Severe sepsis COVID-19 Acute and chronic respiratory failure Pneumonia Tracheostomy in place Edema Sinus tachycardia Dizziness Diastolic dysfunction Acute on chronic diastolic heart failure Respiratory failure with hypoxia and hypercapnia Congestive heart failure Acute on chronic diastolic heart failure Elevated d-dimer PAC (premature atrial contraction) Chest pain Dyspnea HTN (hypertension) COPD (chronic obstructive pulmonary disease) Tobacco abuse Strongly encouraged to quit smoking. Abnormal stress test SOB (shortness of breath) Angina, class III Obesity Hypothyroidism (~11/21/17) Asthma Insomnia Depression Anxiety Neuropathy Surgical History History of colonoscopy History of left knee surgery History of hysterectomy Family History Other No significant family history Social History Smoking Status: Former smoker tobacco type: cigarettes packs per day: 1 smoking status stop date: 02/2022 alcohol intake: former substance use type: marijuana current occupational status: disabled Travel in the last 8 weeks: None household members: family housing: apartment number of children: 0 current occupational exposures/hazards: No caffeine: Yes ROS Obtained: Yes All systems reviewed & no additional complaints except as documented Physical Exam General General appearance: alert and obese Head Head exam: atraumatic and normocephalic Eye Eye exam: Present normal appearance, PERRL and EOMI ENT ENT exam: Present normal oropharynx and normal external ear exam Neck Neck exam: Present normal inspection and full ROM Chest Chest inspection: Present normal inspection and symmetric chest wall rise; Absent tenderness Respiratory Respiratory exam: Present wheezes (Faint) and other (Diminished breath sounds bilaterally secondary to body habitus) Cardiovascular Cardiovascular exam: Present normal rhythm and tachycardia Abdominal Exam Abdominal exam: Present soft, distention and tenderness Comment: Extensive erythema and induration over the entirety of the lower abdominal wall Extremities Exam Extremities exam: Present other (Bilateral lower extremity lymphedema, patient reports worsening swelling and pain of the right leg compared to the left) Back Exam Back exam: Absent tenderness Neurological Exam Neurological exam: Present alert and oriented X3; Absent motor sensory deficit Psychiatric Psychiatric exam: Present anxious Skin Skin exam: Present erythema (Abdominal wall) Lymphatic Lymphatic Findings: no adenopathy Medical Decision Making Medical Records Medical records reviewed: Yes I reviewed the patient's medical records. Estrada Inquiry Pt receiving controlled substance: No Estrada was queried for this patient: No Vital Signs: 12/27/23 23:21 Temperature 98.7 F Temperature Source Oral Pulse Rate [Left Radial] 115 H Respiratory Rate 25 H Blood Pressure [Right Radial Artery] 166/71 H Blood Pressure Mean [Right Radial Artery] 102 Blood Pressure Source [Right Radial Artery] Automatic Cuff Blood Pressure Position [Right Radial Artery] Sitting 02 Sat by Pulse Oximetry 94 L Oxygen Delivery Method Room Air Lab Data Lab results reviewed: Yes I reviewed the patient's lab results. Lab Results 12/27/23 23:39: VBG Lactic Acid 1.5 12/27/23 23:41: VBG pH 7.27 L, VBG pCO2 74.5 H, VBG pO2 36.3, VBG HCO3 33.6 H, VBG Total CO2 35.9 H, VBG O2 Saturation 73.4 H, VBG Base Excess 6.7 H, VBG Lactic Acid 1.4 12/27/23 23:50: WBC 8.3, RBC 4.52, Hgb 12.9, Hct 40.9, MCV 90.5, MCH 28.5, MCHC 31.4 L, RDW 17.6 H, Plt Count 225, MPV 8.0, Neut % (Auto) 72.4, Lymph % (Auto) 19.5, [place] % (Auto) 6.1, Eos % (Auto) 1.0, Baso % (Auto) 1.1, Neut # (Auto) 6.0, Lymph # (Auto) 1.6, [place] # (Auto) 0.5, Eos # (Auto) 0.1, Baso # (Auto) 0.1, Sodium 139, Potassium 4.5, Chloride 99, Carbon Dioxide 38 H, Anion Gap 6.5, BUN 24 H, Creatinine 1.10 H, Estimated Creat Clear 47, Estimated GFR 53 L, Est GFR ( Amer) 64, Glucose 129 H, Calcium 9.4, Total Bilirubin 0.1 L, AST 19, ALT 13, Alkaline Phosphatase 75, NT-Pro-B Natriuret Pep 129 H, Total Protein 7.1, Albumin 3.8, Globulin 3.3 H, Albumin/Globulin Ratio 1.2 12/27/23 23:50 12/27/23 23:50 Orders (Tests/Meds): ED MEDICATIONS Generic Name Dose Route Start Last Admin Trade Name Freq PRN Reason Stop Dose Admin Acetaminophen 650 mg 12/28/23 00:43 Acetaminophen 325mg Tab PO 01/27/24 00:42 Q4HP PRN Fever or Mild Pain (1-3) Enoxaparin Sodium 40 mg 12/28/23 09:00 Enoxaparin 40mg/0.4ml Syringe SQ 01/27/24 08:59 DAILY [facility] Vancomycin HCl 2,500 mg/ 500 mls @ 166 mls/hr 12/28/23 00:00 12/28/23 00:44 Sodium Chloride IV 12/28/23 03:00 166 mls/hr ONCE ONE Administration Magnesium Sulfate 2 gm in 50 mls @ 50 mls/hr 12/28/23 00:22 12/28/23 00:44 Magnesium Sulfate 2gm/50ml Premix IV 12/28/23 01:21 50 mls/hr ONCE ONE Administration Sodium Chloride 1,000 mls @ 50 mls/hr 12/28/23 00:45 Sod Chlor 0.9% 1000ml Bag IV 01/27/24 00:44 .Q20H [facility] Insulin Human Lispro 0 unit 12/28/23 06:00 Humalog 100 Units/Ml 10ml Vial (Ssi) SQ 01/27/24 05:59 [facility] Protocol Miscellaneous 1 each 12/27/23 23:45 12/27/23 23:55 Vancomycin Consult Request NOTAPPLIC 01/26/24 23:44 1 each [facility]SULT [facility]ACY [facility] Administration Morphine Sulfate 2 mg 12/28/23 00:43 Morphine 2mg/Ml Syringe IV 01/27/24 00:42 Q2HP PRN Severe Pain (7-10) Nicotine 21 mg 12/28/23 00:43 Nicotine 21mg/24hr Patch TD 01/27/24 00:42 DAILYP PRN Nicotine Cravings Ondansetron HCl 4 mg 12/28/23 00:43 Ondansetron 4mg/2ml Vial IV 01/27/24 00:42 Q8HP PRN Nausea Pantoprazole Sodium 40 mg 12/28/23 09:00 Pantoprazole 40mg Tablet PO 01/27/24 08:59 DAILY [facility] Sodium Chloride 10 ml 12/28/23 00:14 12/28/23 00:15 Sodium Chloride 0.9% 10ml Syr (Rad Only) IV 01/27/24 00:13 10 ml NEEDED PRN Administration Maintain IV Site Discontinued Medications Generic Name Dose Route Start Last Admin Trade Name Jeane PRN Reason Stop Dose Admin Acetaminophen 1,000 mg 12/27/23 23:39 12/28/23 00:09 Acetaminophen 500mg Tab PO 12/27/23 23:40 1,000 mg ONCE ONE Administration Albuterol/Ipratropium 9 ml 12/28/23 00:22 Ipratropium/Albuterol 3 Ml Neb IH 12/28/23 00:23 ONCE ONE Hydromorphone HCl 1 mg 12/27/23 23:39 12/28/23 00:10 Hydromorphone 2mg/Ml Syringe IV 12/27/23 23:40 1 mg ONCE ONE Administration Cefepime HCl 2 gm/ Sodium 100 mls @ 200 mls/hr 12/27/23 23:43 12/28/23 00:10 Chloride IV 12/28/23 00:12 200 mls/hr ONCE ONE Administration Iopamidol 75 ml 12/28/23 00:14 12/28/23 00:15 Iopamidol-370 (76%);100ml Bottle IV 12/28/23 00:15 75 ml ONCE ONE Administration Sodium Chloride 50 ml 12/28/23 00:14 12/28/23 00:15 0.9 % Sodium Chloride 50 Ml Vial IV 12/28/23 00:15 50 ml ONCE ONE Administration ORDERS Category Date Time Status CT abdomen pelvis w con Stat Cat Scan 12/27/23 23:[address] angio chest PE protocol Stat Cat Scan 12/27/23 23:40 Taken BNP [NT Pro Brain Natriuretic Pep.] Stat Lab 12/27/23 23:50 Completed CBC w/Auto Diff [Complete Blood Count Auto Diff] Stat Lab 12/27/23 23:50 Completed CMP [Comprehensive Metabolic Panel] Stat Lab 12/27/23 23:50 Completed Complete Blood Count Auto Diff AMLAB Lab 12/28/23 06:00 Ordered Comprehensive Metabolic Panel AMLAB Lab 12/28/23 06:00 Ordered Lactate Venous Stat Lab 12/27/23 23:39 Completed Magnesium AMLAB Lab 12/28/23 06:00 Ordered Rapid PCR Covid and Flu A/B Stat Lab 12/28/23 00:43 Received UA [Urinalysis and Microscopic] Stat Lab 12/27/23 23:41 Ordered Blood Culture Stat Micro 12/28/23 00:05 Received VBG [Venous Blood Gas] Stat RT 12/27/23 23:41 Completed Tissue Perfus/Sepsis Re-Eval Sepsis Re-Evaluation Performed: Yes Date Performed: 12/27/23 Time Performed: 23:51 Medical Decision Narrative: 48-year-old female with history of morbid obesity, prior COVID status post trach, lymphedema, hypothyroidism, heart failure, diabetes, chronic respiratory failure presents for multiple complaints including worsening abdominal wall redness and pain and worsening respiratory symptoms. History was obtained via interactive discussion with patient, family, chart review. On arrival, patient is afebrile, tachycardic to 115 at rest, intermittently hypoxic with sats in the high 80s to low 90s. Full physical exam performed and significant for findings concerning for worsening abdominal wall cellulitis Differential includes but is not limited to viral/bacterial pneumonia, PE, DVT, cellulitis, abscess, necrotizing fasciitis, acute on chronic respiratory failure,. Patient was given vancomycin and cefepime for broad-spectrum antibiotic coverage in the setting of penicillin reaction. Patient given nebs x 3 and mag for diffuse wheezing and prolonged expiratory phase. Did not give steroids in the setting of infection. Patient did not receive any IV fluids as patient appears to be overall volume overloaded. Given Dilaudid and Tylenol for pain. Workup initiated including CBC CMP urinalysis blood cultures x [address] abdomen and pelvis with IV contrast. On re-evaluation, patient [remains afebrile, HD stable.] On 3 L O2, will start using home BiPAP shortly. Laboratory workup independently interpreted by me and significant for acute on chronic hypoxic and hypercarbic respiratory failure with mild respiratory acidosis. No significant leukocytosis noted, mildly increased creatinine, 1.1 up from 0.7 a week ago. No significant electrolyte derangement. Lactate normal. Imaging independently interpreted by me and significant for abdominal wall cellulitis without tracking gas or abscess. CT PE is very difficult to interpret in the setting of morbid obesity, but no large central PE noted. No evidence of airspace disease.. See radiology read for full review of final results. Given patient history, exam and workup, patient's presentation most likely represents acute on chronic hypoxic and hypercarbic respiratory failure as well as worsening abdominal wall cellulitis that has failed outpatient p.o. antibiotic therapy. Given this, an interactive discussion was had with the hospitalist on-call for admission. Procedures Risk/Benefits of Procedure(s) Were Explained: Yes Critical Care Critical Care Time Critical Care Time: Yes Attestation: On 12/27/23, the high probability of a clinically significant, sudden or life threatening deterioration of the following system(s) respiratory required my full and direct attention, intervention and personal management. The time I documented below is in addition to time spent performing reported procedures but includes the following listed in this critical care notation. Total Time Total Critical Care Time: 40
--- NOTE | 2023-12-27 23:39 | CT_ITS ---
PROCEDURE INFORMATION: Exam: CT Abdomen And Pelvis With Contrast Exam date and time: 12/28/2023 12:02 AM Age: 48 years old Clinical indication: Abdominal pain; Additional info: Abd cellulitis TECHNIQUE: Imaging protocol: Computed tomography of the abdomen and pelvis with contrast. 3D rendering (Not supervised by radiologist): MIP and/or 3D reconstructed images were created by the technologist. Radiation optimization: All CT scans at this facility use at least one of these dose optimization techniques: automated exposure control; mA and/or kV adjustment per patient size (includes targeted exams where dose is matched to clinical indication); or iterative reconstruction. Contrast material: ISOVUE; Contrast volume: 75 ml; Contrast route: IV; COMPARISON: 1. CT ABDOMEN PELVIS W CON 12/18/2023 2:[address] ABDOMEN PELVIS W CON 11/28/2023 4:45 PM FINDINGS: Limitations: Exam is limited secondary to very large body habitus with lower abdominal wall and bilateral flank soft tissues extending beyond the scan field of view. Lungs: Lung bases and chest findings reported separately. Liver: No acute abnormality. No mass. Gallbladder and biliary ducts: Previous cholecystectomy. Pancreas: No acute abnormality. No ductal dilation. Spleen: No acute abnormality. Punctate splenic calcified granulomas. Adrenal glands: No significant or acute abnormality. Kidneys and ureters: Stable small approximately 2.2 cm anterior right renal lower pole low-attenuation lesion or cyst. No hydronephrosis or hydroureter. Stomach and bowel: No significant or disproportionate large or small bowel distention. Moderate amount of stool within the colon. No evidence of diverticulitis. Appendix: No findings to suggest acute appendicitis. Intraperitoneal space: No significant fluid collection. No free air. Vasculature: No acute abnormality. No abdominal aortic aneurysm. Lymph nodes: Small nonspecific bilateral inguinal and retroperitoneal lymph nodes. Urinary bladder: Nondistended urinary bladder. Reproductive: Previous hysterectomy. Bones/joints: No acute osseous abnormality. No dislocation. Soft tissues: Persistent skin thickening and subcutaneous fat stranding along the lower anterior abdominal wall and panniculus suggestive of cellulitis and panniculitis. Very large body habitus. IMPRESSION: 1. Persistent skin thickening and subcutaneous fat stranding along the lower anterior abdominal wall and panniculus suggestive of cellulitis and panniculitis. 2. Previous cholecystectomy and hysterectomy. 3. Additional findings as described above.
--- NOTE | 2023-12-27 23:40 | CT_ITS ---
PROCEDURE INFORMATION: Exam: CTA Chest With Contrast Exam date and time: 12/28/2023 12:02 AM Age: 48 years old Clinical indication: Shortness of breath; Additional info: SOA, R leg swelling, productive cough TECHNIQUE: Imaging protocol: Computed tomographic angiography of the chest with contrast. Exam focused on the arteries. 3D rendering (Not supervised by radiologist): MIP and/or 3D reconstructed images were created by the technologist. Radiation optimization: All CT scans at this facility use at least one of these dose optimization techniques: automated exposure control; mA and/or kV adjustment per patient size (includes targeted exams where dose is matched to clinical indication); or iterative reconstruction. Contrast material: ISOVUE; Contrast volume: 75 ml; Contrast route: INTRAVENOUS (IV); COMPARISON: CT ANGIO CHEST PE PROTOCOL 12/18/2023 2:31 PM FINDINGS: Tubes, catheters and devices: Tracheostomy tube in place in expected position. Pulmonary arteries: Suboptimal pulmonary artery opacification with limited visualization of the small peripheral pulmonary arteries. No definite vascular intraluminal filling defects to suggest large or central acute pulmonary embolism. Aorta: No acute abnormality. No aortic aneurysm or dissection. Lungs: No significant or acute abnormality. No consolidation. Pleural spaces: No pleural effusion. No pneumothorax. Heart: Heart size upper limits of normal. Lymph nodes: Small nonspecific mediastinal lymph nodes. Bones/joints: Mild thoracic kyphosis, spondylosis and degenerative bony changes. Soft tissues: Very large body habitus. Other findings: Abdomen and pelvis findings reported separately. IMPRESSION: No definite vascular intraluminal filling defects to suggest large or central acute pulmonary embolism. A small peripheral PE cannot be completely excluded.
[2023-12-27] MEDS: VANCOMYCIN CONSULT REQUEST 1 EACH NOTAPPLIC (23:55)
[2023-12-28] VITALS (10 sets, daily range): BP systolic 105–160; BP diastolic 58–77; PULSE 69–113; RESP 16–24; TEMP 36.6–37; O2SAT 83–96; BMI 78.0
[2023-12-28 00:08] LABS: Lactate Venous 1.4 mmol/L (0.4-2.0); VBG Base Excess 6.7 mmol/L (-2.4-2.3); VBG HCO3 33.6 mmol/L (23-30); VBG Oxygen Saturation 73.4 % (50-70); VBG PH 7.27 mmol/L (7.31-7.41); VBG PO2 36.3 mmol/L (28-40); VBG Total CO2 35.9 mmol/L (23-27)
[2023-12-28] MEDS: ACETAMINOPHEN 500MG TAB 1000 MG PO (00:09)
[2023-12-28] MEDS: HYDROMORPHONE 2MG/ML SYRINGE 1 MG IV (00:10)
[2023-12-28] MEDS: CEFEPIME HCL 2 GM in 0.9 % SODIUM CHLORIDE 100 ML IV (00:10)
[2023-12-28 00:12] LABS: Basophils # 0.1 K/mm3 (0-0.2); Basophils % 1.1 % (0.1-2.0); Eosinophils # 0.1 K/mm3 (0.0-0.4); Hematocrit 40.9 % (37.0-47.0); Hemoglobin 12.9 g/dL (12.2-16.2); Lymphocytes # 1.6 K/mm3 (0.7-4.5); Lymphocytes % 19.5 % (10-50); Mean Corpuscular HGB Conc 31.4 g/dL (31.8-35.4); Mean Corpuscular Hemoglobin 28.5 pg (27.0-31.2); Mean Corpuscular Volume 90.5 fl (81-99); Monocytes # 0.5 K/mm3 (0.1-1.0); Monocytes % 6.1 % (1.7-9.3); Neutrophils % 72.4 % (37.0-80.0); Platelet Count 225 K/mm3 (142-424); Red Blood Count 4.52 M/mm3 (4.20-5.40); Red Cell Distribution Width 17.6 % (11.5-17.5); White Blood Count 8.3 K/mm3 (4.8-10.8)
[2023-12-28 00:15] LABS: Lactate Venous 1.5 mmol/L (0.4-2.0)
[2023-12-28] MEDS: SODIUM CHLORIDE 0.9% 10ML SYR (RAD ONLY) 10 ML IV (00:15)
[2023-12-28] MEDS: 0.9 % SODIUM CHLORIDE 50 ML VIAL IV (00:15)
[2023-12-28] MEDS: IOPAMIDOL-370 (76%);100ML BOTTLE 75 ML IV (00:15)
[2023-12-28 00:16] LABS: VBG PCO2 74.5 mmol/L (35-51)
[2023-12-28 00:19] LABS: Chloride 99 mmol/L (98-107); Potassium 4.5 mmoL/L (3.5-5.1); Sodium 139 mmol/L (136-145)
[2023-12-28 00:21] LABS: Alanine Aminotransferase 13 U/L (12-78); Aspartate Amino Transferase 19 U/L (14-36); Blood Urea Nitrogen 24 mg/dl (7-17); Creatinine Clearance Estimated 47 mL/min (50-200); Estimated Glomerular Filt Rate 53 ml/min (>60); GFR (African American) 64 ML/MIN (>60)
[2023-12-28 00:22] LABS: Albumin Level 3.8 g/dl (3.5-5.0); Albumin/Globulin Ratio 1.2 (1.1-1.8); Alkaline Phosphatase 75 U/L (38-126); Anion Gap 6.5 mEq/L (5-15); Calcium 9.4 mg/dl (8.4-10.2); Carbon Dioxide 38 mmol/L (22.0-30.0); Globulin 3.3 g/dL (1.3-3.2); Glucose 129 mg/dl (74-100); Total Protein,Serum 7.1 g/dl (6.3-8.2)
[2023-12-28 00:28] LABS: Bilirubin,Total 0.1 mg/dl (0.2-1.3)
[2023-12-28 00:31] LABS: NT Pro Brain Natriuretic Pep. 129 pg/mL (0-125)
[2023-12-28] MEDS: IPRATROPIUM/ALBUTEROL 3 ML NEB 9 ML IH (00:35)
--- NOTE | 2023-12-28 00:43 | PC.NURSE ---
House notified for admission
[2023-12-28] MEDS: MAGNESIUM SULFATE IN WATER 2 GM/50 ML PIGGYBACK IV (00:44)
[2023-12-28] MEDS: VANCOMYCIN HCL 2,500 MG in 0.9 % SODIUM CHLORIDE 500 ML 166 MG IV (00:44)
--- NOTE | 2023-12-28 00:45 | P.HP_ITS ---
History of Present Illness *Admission Date: 12/28/23 *Reason for visit:: pain and redness on her abdomen *History of present illness: Morbidly obese 47-year-old female with a PMHx of chronic hypoventilation syndrome, respiratory failure post COVID, trach dependance, on home oxygen 3L, MDD, migraine, hypothyroidism, anxiety disorder, diastolic heart failure, normal EF, chronic bilateral lymphedema and a former smoker coming to ED fro evaluation of worsening abdominal wall redness and pain and worsening respiratory symptoms.. Her primary complaint is worsening abdominal wall redness and pain. She reports that it has been spreading. She also reports that her respiratory symptoms have not improved. She was seen here approximately a week ago and was diagnosed with pneumonia and abdominal wall cellulitis. She was encouraged to be admitted but she ultimately decided to leave against medical advice. Placed on Bactrim and Levaquin which she has been taking without improvement in symptoms. Admitted for further treatment. [facility] Disclaimer: The information contained in this section may have been updated after the patient was seen, as this information can be updated by other users. Medical History Palpitations Ear pain, right Acute and chronic respiratory failure with hypercapnia This patient is following with pulmonary. Additionally she has CPAP and O2 at bedtime. PTSD (post-traumatic stress disorder) Chest pain Generalized anxiety disorder Recurrent major depression resistant to treatment Following with [facility]. Sleep apnea History of ectopic History of hyperkalemia Diastolic congestive heart failure Paranoid schizophrenia Uses bilevel positive airway pressure (BPAP) ventilation at home History of sleep apnea History of asthma Cellulitis of right lower extremity Acute and chronic respiratory failure with hypercapnia Pneumonia Acute and chronic respiratory failure Right lower lobe pneumonia History of smoking 30 or more pack years Obesity hypoventilation syndrome Asthma Chronic respiratory failure with hypercapnia Severe sepsis COVID-19 Acute and chronic respiratory failure Pneumonia Tracheostomy in place Edema Sinus tachycardia Dizziness Diastolic dysfunction Acute on chronic diastolic heart failure Respiratory failure with hypoxia and hypercapnia Congestive heart failure Acute on chronic diastolic heart failure Elevated d-dimer PAC (premature atrial contraction) Chest pain Dyspnea HTN (hypertension) COPD (chronic obstructive pulmonary disease) Tobacco abuse Strongly encouraged to quit smoking. Abnormal stress test SOB (shortness of breath) Angina, class III Obesity Hypothyroidism (~11/21/17) Asthma Insomnia Depression Anxiety Neuropathy Surgical History History of colonoscopy History of left knee surgery History of hysterectomy Family History Other No significant family history Social History (Updated 12/28/23 @ 01:47 by Fariha Ayon RN) Smoking Status: Former smoker tobacco type: cigarettes packs per day: 1 smoking status stop date: 02/2022 alcohol intake: former substance use type: marijuana current occupational status: disabled Travel in the last 8 weeks: None household members: family housing: apartment number of children: 0 current occupational exposures/hazards: No caffeine: Yes Review of Systems Review of Systems Review of systems:: pertinent systems reviewed and negative unless documented below Meds Home Medications and Allergies Home Medications ?Medication ?Instructions ?Recorded ?Confirmed ?Type blood sugar diagnostic (OneTouch 01/01/23 12/28/23 History Verio test strips) lancets 33 gauge (OneTouch Delica 01/01/23 12/28/23 History Plus Lancet) ipratropium 0.5 mg-albuterol 3 mg 3 ml inhalation QID PRN shortness 02/09/23 12/28/23 Rx (2.5 mg base)/3 mL nebulization of breath or wheezing 90 days #270 soln mL sumatriptan succinate 100 mg tablet 100 mg PO NEEDED PRN Migraine 05/19/23 12/28/23 Rx Headache #10 tabs linaclotide 72 mcg capsule 72 mcg PO DAILY constipation #90 08/29/23 12/28/23 Rx (Linzess) caps duloxetine 30 mg capsule,delayed 90 mg (3 x 30 mg) PO DAILY Mood 60 09/11/23 12/28/23 Rx release days #180 caps fluticasone fur. 100 mcg-umeclid 1 inh inhalation DAILY 90 days #90 09/19/23 12/28/23 Rx 62.5 mcg-vilant 25 mcg ea inhalat.powder (Trelegy Ellipta) gabapentin 800 mg tablet 800 mg PO TID Neuropathy #90 tabs 11/09/23 12/28/23 Rx spironolactone 50 mg tablet 50 mg PO DAILY 90 days #90 tabs 11/09/23 12/28/23 Rx (Aldactone) acetylcysteine 100 mg/mL (10 %) 2 ml inhalation Q8H PRN cough #100 11/21/23 12/28/23 Rx solution mL losartan 25 mg tablet 25 mg PO DAILY #30 tabs 11/21/23 12/28/23 Rx magnesium oxide 400 mg (241.3 mg 800 mg (2 x 400 mg (241.3 mg 11/21/23 12/28/23 Rx magnesium) tablet magnesium)) PO DAILY #60 tabs propranolol 10 mg tablet 10 mg PO BID #60 tabs 11/21/23 12/28/23 Rx budesonide 0.5 mg/2 mL suspension 0.5 mg (2 mL) inhalation Q12H #120 11/22/23 12/28/23 Rx for nebulization mL formoterol fumarate 20 mcg/2 mL 2 ml inhalation BID 30 days #120 mL 11/22/23 12/28/23 Rx solution for nebulization (Perforomist) cyclobenzaprine 5 mg tablet 5 mg PO TID Muscle relaxer 90 days 11/24/23 12/28/23 Rx #270 tabs diazepam 5 mg tablet 2.5 mg (1/2 x 5 mg) PO TID 30 days 11/29/23 12/28/23 Rx #45 tabs bisacodyl 5 mg tablet,delayed 5 mg PO HS PRN constipation 15 11/30/23 12/28/23 Rx release (Dulcolax (bisacodyl)) days #15 tabs ondansetron 4 mg disintegrating 4 mg PO Q6H PRN nausea and 11/30/23 12/28/23 Rx tablet vomiting #30 tabs albuterol sulfate 90 mcg/actuation 1 puff inhalation Q6HP PRN 12/11/23 12/28/23 Rx aerosol inhaler Shortness Of Breath #8.5 grams acetylcysteine 600 mg capsule 600 mg PO DAILY PRN cough #30 caps 12/22/23 12/28/23 Rx fluticasone propionate 50 1 spray intranasal DAILY #16 grams 12/22/23 12/28/23 Rx mcg/actuation nasal spray,suspension (Flonase Allergy Relief) clindamycin HCl 300 mg capsule 300 mg PO Q8H 10 days #30 caps 12/27/23 12/28/23 Rx lamotrigine 100 mg tablet 100 mg PO DAILY 12/28/23 12/28/23 History levothyroxine 25 mcg tablet 25 mcg PO DAILY 12/28/23 12/28/23 History omeprazole 40 mg capsule,delayed 40 mg PO BID 12/28/23 12/28/23 History release oxycodone-acetaminophen 10 mg-325 1 tab PO QIDP PRN Moderate Pain 12/28/23 12/28/23 History mg tablet (Scale Score 5-6) promethazine 25 mg tablet 25 mg PO Q8HP PRN Nausea And 12/28/23 12/28/23 History Vomiting torsemide 100 mg tablet 100 mg PO DAILY Fluid 12/28/23 12/28/23 History trazodone 100 mg tablet 100 mg PO HS 12/28/23 12/28/23 History New Prescriptions to Start Prescriptions: Allergies Allergy/AdvReac Type Severity Reaction Status Date / Time doxycycline Allergy Severe Blister Verified 11/29/23 08:52 Sulfa (Sulfonamide AdvReac Intermediate Rash Verified 12/27/23 23:57 Antibiotics) amoxicillin AdvReac Verified 11/29/23 08:52 nitrofurantoin AdvReac Verified 11/29/23 08:52 [From Macrobid] Exam Data for Last 24 hours Vital signs and Labs for Last 24 Hours: Temp Pulse Resp BP Pulse Ox O2 Del Method 98.7 F 115 H 25 H 166/71 H 94 L Room Air 12/27/23 23:21 12/27/23 23:21 12/27/23 23:21 12/27/23 23:21 12/27/23 23:21 12/27/23 23:21 Laboratory Results - last 24 hr 12/27/23 23:39: VBG Lactic Acid 1.5 12/27/23 23:41: VBG pH 7.27 L, VBG pCO2 74.5 H, VBG pO2 36.3, VBG HCO3 33.6 H, VBG Total CO2 35.9 H, VBG O2 Saturation 73.4 H, VBG Base Excess 6.7 H, VBG Lactic Acid 1.4 12/27/23 23:50: WBC 8.3, RBC 4.52, Hgb 12.9, Hct 40.9, MCV 90.5, MCH 28.5, MCHC 31.4 L, RDW 17.6 H, Plt Count 225, MPV 8.0, Neut % (Auto) 72.4, Lymph % (Auto) 19.5, Garrett % (Auto) 6.1, Eos % (Auto) 1.0, Baso % (Auto) 1.1, Neut # (Auto) 6.0, Lymph # (Auto) 1.6, Garrett # (Auto) 0.5, Eos # (Auto) 0.1, Baso # (Auto) 0.1, Sodium 139, Potassium 4.5, Chloride 99, Carbon Dioxide 38 H, Anion Gap 6.5, BUN 24 H, Creatinine 1.10 H, Estimated Creat Clear 47, Estimated GFR 53 L, Est GFR ( Amer) 64, Glucose 129 H, Calcium 9.4, Total Bilirubin 0.1 L, AST 19, ALT 13, Alkaline Phosphatase 75, NT-Pro-B Natriuret Pep 129 H, Total Protein 7.1, Albumin 3.8, Globulin 3.3 H, Albumin/Globulin Ratio 1.2 Temp Pulse Resp BP Pulse Ox O2 Del Method 98.8 F 115 H 20 151/93 H 94 L Room Air 07/25/23 20:53 07/25/23 22:11 07/25/23 20:53 07/25/23 20:53 07/25/23 20:53 07/25/23 20:53 Laboratory Results - last 24 hr 07/25/23 21:12: WBC 9.6, RBC 4.56, Hgb 12.5, Hct 40.8, MCV 89.6, MCH 27.5, MCHC 30.7 L, RDW 15.9, Plt Count 250, MPV 8.2, Neut % (Auto) 76.4, Lymph % (Auto) 18.2, Garrett % (Auto) 3.8, Eos % (Auto) 1.2, Baso % (Auto) 0.4, Neut # (Auto) 7.4, Lymph # (Auto) 1.8, Garrett # (Auto) 0.4, Eos # (Auto) 0.1, Baso # (Auto) 0.0, Sodium 138, Potassium 5.0, Chloride 105, Carbon Dioxide 34 H, Anion Gap 4.0 L, BUN 16, Creatinine 0.80, Estimated Creat Clear 64, Estimated GFR 76, Est GFR ( Amer) 92, Glucose 138 H, Lactate 1.5, Calcium 8.7, Total Bilirubin 0.2, AST 24, ALT 20, Alkaline Phosphatase 83, Troponin I < 0.01, NT-Pro-B Natriuret Pep 59.8, Total Protein 7.9 D, Albumin 4.0, Globulin 3.9 H, Albumin/Globulin Ratio 1.0 L 07/25/23 21:15: VBG pH 7.29 L, VBG pCO2 60.3 H, VBG pO2 77.6 H, VBG HCO3 28.4, VBG Total CO2 30.3 H, VBG O2 Saturation 95.3 H, VBG Base Excess 1.8 I & O for Last 24 hours: Intake & Output 12/25/23 12/26/23 12/27/23 12/28/23 23:59 23:59 23:59 23:59 Weight 183.251 kg Intake & Output 07/22/23 07/23/23 07/24/23 07/25/23 23:59 23:59 23:59 23:59 Weight 169.19 kg Constitutional Constitutional: morbidly obese and chronically ill appearing *Routine HEENT Exam Head: Present normocephalic Eye: Present EOMI ENT: Present mucous membranes moist *Routine Neck Exam Neck: Present supple and full ROM Comments: tracheostomy *Routine Respiratory Exam Respiratory: Present decreased breath sounds, CTA bilaterally, wheezes, normal respiratory effort and symmetric chest movement *Routine Cardiovascular Exam Cardiovascular: Present RRR, Normal S1 and Normal S2 *Routine Abdominal Exam Abdominal: Present soft, normoactive bowel sounds and obese; Absent tenderness or organomegaly *Routine Rectal Exam Rectal:: deferred *Routine Genitalia Exam Genitalia:: deferred *Routine Extremities Exam Extremities: Present edema and full ROM; Absent cyanosis or clubbing *Routine Skin Exam Skin: Present erythema (abdomen ) and wounds Comments: bug bites on face, legs, and buttock *Routine Neurological Exam Neurological: Present alert and oriented X3 H&P: Result Imaging and Cardiology EKG: Status: image reviewed by me, Preliminary report and final report CT scan - abdomen: Status: image reviewed by me, Preliminary report and final report CT scan - chest: Status: image reviewed by me, Preliminary report and final report Assessment and Plan *Assessment and plan (1) Abdominal wall cellulitis: Status: Acute Category: Medical Code(s): L03.311 - Cellulitis of abdominal wall (2) Right leg swelling: Status: Acute Category: Medical Code(s): M79.89 - Other specified soft tissue disorders (3) Acute and chronic respiratory failure: Status: Acute Qualifiers: Respiratory failure complication: hypercapnia Qualified Code(s): J96.22 - Acute and chronic respiratory failure with hypercapnia Category: Medical Code(s): J96.20 - Acute and chronic respiratory failure, unspecified whether with hypoxia or hypercapnia (4) Edema, peripheral: Status: Resolved Category: Medical Code(s): R60.9 - Edema, unspecified (5) Tracheostomy in place: Status: Acute Category: Medical Code(s): Z93.0 - Tracheostomy status (6) Obesity hypoventilation syndrome: Status: Chronic Category: Medical Code(s): E66.2 - Morbid (severe) obesity with alveolar hypoventilation (7) Headache: Status: Resolved Qualifiers: Headache chronicity pattern: chronic headache Headache type: unspecified Intractability: not intractable Qualified Code(s): R51.9 - Headache, unspecified; G89.29 - Other chronic pain Category: Medical Code(s): R51.9 - Headache, unspecified (8) COPD (chronic obstructive pulmonary disease): Status: Acute Qualifiers: COPD type: COPD with acute exacerbation Qualified Code(s): J44.1 - Chronic obstructive pulmonary disease with (acute) exacerbation Category: Medical Code(s): J44.9 - Chronic obstructive pulmonary disease, unspecified (9) Diastolic congestive heart failure: Status: Acute Qualifiers: Heart failure chronicity: chronic Qualified Code(s): I50.32 - Chronic diastolic (congestive) heart failure Category: Medical Code(s): I50.30 - Unspecified diastolic (congestive) heart failure (10) Uses bilevel positive airway pressure (BPAP) ventilation at home: Status: Chronic Category: Medical Code(s): Z99.89 - Dependence on other enabling machines and devices (11) MDD (major depressive disorder), recurrent episode: Status: Acute Qualifiers: Major depression episode severity: severe Psychotic features: with psychotic features Qualified Code(s): F33.3 - Major depressive disorder, recurrent, severe with psychotic symptoms Category: Medical Code(s): F33.9 - Major depressive disorder, recurrent, unspecified (12) Diabetes mellitus, type 2: Status: Acute Qualifiers: Diabetes mellitus complication detail: with unspecified neuropathy Diabetes mellitus complication status: with neurologic complications Diabetes mellitus termite control servicer insulin use: without termite control servicer use Qualified Code(s): E11.40 - Type 2 diabetes mellitus with diabetic neuropathy, unspecified Category: Medical Code(s): E11.9 - Type 2 diabetes mellitus without complications (13) Obesity, morbid: Status: Acute Category: Medical Code(s): E66.01 - Morbid (severe) obesity due to excess calories (14) History of smoking 30 or more pack years: Status: Chronic Category: Social Hx Code(s): Z87.891 - Personal history of nicotine dependence Plan Morbidly obese 47-year-old female with a PMHx of chronic hypoventilation syndr ome, respiratory failure post COVID, trach dependance, on home oxygen 3L, MDD, migraine, hypothyroidism, anxiety disorder, diastolic heart failure, normal EF, chronic bilateral lymphedema and a former smoker. came to ED c/o wall abdominal pain and redness. Lab was obtained. Grossly unremarkable. ABG was showing acute on chronic hypoxic and hypercarbic respiratory failure with mild respiratory acidosis. findings discussed with the ER doctor. Agreed for admission for further treatment and management. Plan will be as follows: -Cellulitis of the abdominal wall. failed outpatient treatment Right leg chronic edema Acute on chronic hypercapnic respiratory failure, likely secondary to fluid overload and obesity hypoventilation syndrome conditions to r/o CAP, or CHF exacerbation: Dispo med surgical floor. vital sign monitoring. Daily weight. Strict I/Os. Respiratory therapy to assist. Okay for home BiPAP to use. started on vancomycin and cefepime. respiratory panel neg DuoNeb every 6h for shortness of breath She is on 100 mg of torsemide and spironolactone at home. resumed. Strict I&Os. CMP in the morning. repeat labs in the morning -Tracheostomy dependance. obesity hypoventilation syndrome respiratory failure s/p COVID Educated patient for trach self-care, asepsis technique reinforced. Continue home BiPAP supplemental oxygen at night./ -Headache: Continue to monitor for headache. Tylenol and morphine as needed for pain management. Resume home sumatriptan. -Diastolic congestive heart failure: Not appearing on exacerbation. BNP slightly elevated Last echocardiogram 11/2023 was showing Normal biventricular systolic function. No significant valvular stenosis or regurgitation. -MDD with anxierty: resume diazepam, trazadone on home synthroid Prediabetes: last a1c 6.2 monitor glucose before meal -Morbidly obese. We will continue to Daily weight with aggressive diuresis. lovenox for DVT prophylaxis, Protonix for GI bleeding prophylaxis. DNR. Plan discussed with the patient. Rounded on patient after nurse practitioner. Personally examined and interviewed patient. Agree with exam findings and care plan as documented. Concern for edema being a prominent component of her symptoms. Patient states she is gained weight and not having as much output with her current diuretic regimen. Weight is up per chart review. Initiating on Bumex drip. Will broaden coverage to add strep coverage with ceftriaxone 2 g daily. Will leave Kumar in place due to aggressive diuresis. Further management pending response to diuretic regimen and fluid balance. Inflammatory markers obtained, CRP at baseline for patient. Pro-Jeison unremarkable at 0.08. ESR mildly elevated.
[2023-12-28 00:51] LABS: Coronavirus 19, PCR Not Detected (NotDetected); Influenza A, PCR Not Detected (NotDetected); Influenza B, PCR Not Detected (NotDetected)
--- NOTE | 2023-12-28 00:56 | PC.NURSE ---
Report called to [facility]
--- NOTE | 2023-12-28 01:06 | PC.NURSE ---
0059 PHONE REPORT RECEIVED FROM Wayne MANNING RN/ED. PATIENT IS 48 YO FEMALE. DIAGNOSIS ABD WALL CELLULITIS/ RESP FAILURE. TO TRANSPORT BY STRETCHER.
[2023-12-28 02:37] LABS: Appearance,Urine CLEAR (Clear); Bilirubin,Urine Negative (Negative); Blood, Urine Negative (Negative); Color,Urine YELLOW (Yellow); Glucose,Urine (UA) Negative (Negative); Ketones,Urine Negative (Negative); Leukocyte Esterase,Urine Negative (Negative); Microscopic, Urine URINE MICROSCOPIC (MICROSCOPIC); Nitrate,Urine Negative (Negative); Protein,Urine Negative (Negative); Specific Gravity, Urine 1.025 (1.005-1.030); Urobilinogen,Urine 0.2 EU/dl (0.2)
[2023-12-28 02:49] LABS: Bacteria,Urine Trace /lpf; WBC,Urine Occasional #/hpf (0-3)
[2023-12-28] MEDS: 0.9 % SODIUM CHLORIDE 1000ML 1,000 ML 50 ML IV (03:11)
[2023-12-28] MEDS: MORPHINE 2MG/ML SYRINGE 2 MG IV (04:13)
[2023-12-28 05:08] LABS: POC Glucose,Bedside 151 (70-110)
[2023-12-28] MEDS: humaLOG 100 UNITS/ML 10ML VIAL (SSI) SQ (05:11)
--- NOTE | 2023-12-28 05:51 | PC.NURSE ---
PATIENT RECEIVED MORPHINE 2 MG IVP AT 0413 FOR ABDOMINAL PAIN 7-01/12 WHICH WAS EFFECTIVE BUT SHE PREFERS DILAUDID BECAUSE IT WORKS BETTER. ALOT OF ERYTHEMA/CELLULITIS-PANNICULITIS PRESENT. PATIENT C/O ITCHING AT TIMES. HAS BIPAP FROM HOME. 02 SAT 96% . COUGHING SPELLS NOTED, DRY COUGH. RUCKER CATH PATENT AND TO BEDSIDE DRAIN, URINE CLEAR YELLOW.
[2023-12-28 06:40] LABS: Basophils % 0.3 % (0.1-2.0); Eosinophils # 0.1 K/mm3 (0.0-0.4); Hematocrit 37.1 % (37.0-47.0); Hemoglobin 11.9 g/dL (12.2-16.2); Lymphocytes # 1.4 K/mm3 (0.7-4.5); Lymphocytes % 20.1 % (10-50); Mean Corpuscular Hemoglobin 28.3 pg (27.0-31.2); Mean Corpuscular Volume 88.6 fl (81-99); Mean Platelet Volume 8.4 fl (7.4-10.4); Monocytes # 0.4 K/mm3 (0.1-1.0); Monocytes % 5.6 % (1.7-9.3); Neutrophils # 5.2 K/mm3 (1.8-7.8); Platelet Count 193 K/mm3 (142-424); Red Blood Count 4.19 M/mm3 (4.20-5.40); Red Cell Distribution Width 17.4 % (11.5-17.5); White Blood Count 7.1 K/mm3 (4.8-10.8)
[2023-12-28 06:48] LABS: Alanine Aminotransferase 13 U/L (12-78); Albumin Level 3.2 g/dl (3.5-5.0); Albumin/Globulin Ratio 1.1 (1.1-1.8); Alkaline Phosphatase 62 U/L (38-126); Anion Gap 5.2 mEq/L (5-15); Aspartate Amino Transferase 17 U/L (14-36); Bilirubin,Total 0.2 mg/dl (0.2-1.3); Blood Urea Nitrogen 22 mg/dl (7-17); Calcium 8.8 mg/dl (8.4-10.2); Carbon Dioxide 35 mmol/L (22.0-30.0); Chloride 102 mmol/L (98-107); Creatinine Clearance Estimated 51 mL/min (50-200); Estimated Glomerular Filt Rate 59 ml/min (>60); GFR (African American) 71 ML/MIN (>60); Globulin 2.8 g/dL (1.3-3.2); Glucose 160 mg/dl (74-100); Potassium 4.2 mmoL/L (3.5-5.1); Sodium 138 mmol/L (136-145)
[2023-12-28 07:37] LABS: C-Reactive Protein 45.2 mg/L (0-4)
[2023-12-28] MEDS: BUDESONIDE 0.5MG/2ML NEB 0.5 MG IH ×2 (07:49→18:30)
[2023-12-28 07:50] LABS: Procalcitonin 0.082 ng/mL (0.0-2.0)
[2023-12-28] MEDS: MORPHINE 4MG/ML SYRINGE 4 MG IV ×3 (07:58→19:22)
[2023-12-28] MEDS: ONDANSETRON 4MG/2ML VIAL 4 MG IV ×3 (08:02→23:40)
--- NOTE | 2023-12-28 08:41 | HMH.PHAINT1 ---
Pharmacy Intervention Comments: MEDICATION RECONCILIATION COMPLETED ON PATIENT USING EXTERNAL FILL HISTORY FROM PHARMACY AND LIST FROM P[facility]/PCP OFFICE. -SAI ELLIOTTD
[2023-12-28] MEDS: DULOXETINE 30MG CAPSULE.DR 90 MG PO (08:44)
[2023-12-28] MEDS: PROPRANOLOL 20MG TAB 10 MG PO ×2 (08:44→20:22)
[2023-12-28] MEDS: ENOXAPARIN 60MG/0.6ML SYRINGE 60 MG SQ ×2 (08:44→20:21)
[2023-12-28] MEDS: CYCLOBENZAPRINE 10MG TABLET 5 MG PO ×2 (08:45→20:22)
[2023-12-28] MEDS: lamoTRIgine 100MG TABLET 100 MG PO (08:45)
[2023-12-28] MEDS: IRBESARTAN 75MG TABLET 75 MG PO (08:45)
[2023-12-28] MEDS: GABAPENTIN 800MG TABLET 800 MG PO ×2 (08:45→20:22)
[2023-12-28] MEDS: SENNOSIDES 8.6MG/DOCUSATE 50MG TABLET 1 TAB PO ×2 (08:45→20:22)
[2023-12-28] MEDS: SPIRONOLACTONE 25MG TABLET 50 MG PO (08:46)
[2023-12-28] MEDS: TORSEMIDE 20MG TABLET 100 MG PO (08:47)
[2023-12-28] MEDS: MAGNESIUM OXIDE 400MG TABLET 800 MG PO (08:48)
[2023-12-28] MEDS: BENZONATATE 100MG CAPSULE 200 MG PO (08:52)
[2023-12-28] MEDS: diazePAM 5MG TABLET 2.5 MG PO ×2 (08:52→20:23)
[2023-12-28] MEDS: SUMAtriptan SUCCINATE 25MG TABLET 100 MG PO (09:21)
--- NOTE | 2023-12-28 10:21 | EXP.PHA.CONS ---
Pharmacy Consult Date: 12/28/23 Time: 10:21 Referring provider: DR. SAWANT Reason for Consult:: VANCOMYCIN DOSING Allergies Allergy/AdvReac Type Severity Reaction Status Date / Time doxycycline Allergy Severe Blister Verified 11/29/23 08:52 Sulfa (Sulfonamide AdvReac Intermediate Rash Verified 12/27/23 23:57 Antibiotics) amoxicillin AdvReac Verified 11/29/23 08:52 nitrofurantoin AdvReac Verified 11/29/23 08:52 [From Macrobid] Home Medications ?Medication ?Instructions ?Recorded ?Confirmed ?Type blood sugar diagnostic (OneTouch 01/01/23 12/28/23 History Verio test strips) [facility] 01/01/23 12/28/23 History Plus Lancet) ipratropium 0.5 mg-albuterol 3 mg 3 ml inhalation QID PRN shortness 02/09/23 12/28/23 Rx (2.5 mg base)/3 mL nebulization of breath or wheezing 90 days #270 soln mL sumatriptan succinate 100 mg tablet 100 mg PO NEEDED PRN Migraine 05/19/23 12/28/23 Rx Headache #10 tabs linaclotide 72 mcg capsule 72 mcg PO DAILY constipation #90 08/29/23 12/28/23 Rx (Linzess) caps duloxetine 30 mg capsule,delayed 90 mg (3 x 30 mg) PO DAILY Mood 60 09/11/23 12/28/23 Rx release days #180 caps fluticasone fur. 100 mcg-umeclid 1 inh inhalation DAILY 90 days #90 09/19/23 12/28/23 Rx 62.5 mcg-vilant 25 mcg ea inhalat.powder (Trelegy Ellipta) gabapentin 800 mg tablet 800 mg PO TID Neuropathy #90 tabs 11/09/23 12/28/23 Rx spironolactone 50 mg tablet 50 mg PO DAILY 90 days #90 tabs 11/09/23 12/28/23 Rx (Aldactone) acetylcysteine 100 mg/mL (10 %) 2 ml inhalation Q8H PRN cough #100 11/21/23 12/28/23 Rx solution mL losartan 25 mg tablet 25 mg PO DAILY #30 tabs 11/21/23 12/28/23 Rx magnesium oxide 400 mg (241.3 mg 800 mg (2 x 400 mg (241.3 mg 11/21/23 12/28/23 Rx magnesium) tablet magnesium)) PO DAILY #60 tabs propranolol 10 mg tablet 10 mg PO BID #60 tabs 11/21/23 12/28/23 Rx budesonide 0.5 mg/2 mL suspension 0.5 mg (2 mL) inhalation Q12H #120 11/22/23 12/28/23 Rx for nebulization mL formoterol fumarate 20 mcg/2 mL 2 ml inhalation BID 30 days #120 mL 11/22/23 12/28/23 Rx solution for nebulization (Perforomist) cyclobenzaprine 5 mg tablet 5 mg PO TID Muscle relaxer 90 days 11/24/23 12/28/23 Rx #270 tabs diazepam 5 mg tablet 2.5 mg (1/2 x 5 mg) PO TID 30 days 11/29/23 12/28/23 Rx #45 tabs bisacodyl 5 mg tablet,delayed 5 mg PO HS PRN constipation 15 11/30/23 12/28/23 Rx release (Dulcolax (bisacodyl)) days #15 tabs ondansetron 4 mg disintegrating 4 mg PO Q6H PRN nausea and 11/30/23 12/28/23 Rx tablet vomiting #30 tabs albuterol sulfate 90 mcg/actuation 1 puff inhalation Q6HP PRN 12/11/23 12/28/23 Rx aerosol inhaler Shortness Of Breath #8.5 grams acetylcysteine 600 mg capsule 600 mg PO DAILY PRN cough #30 caps 12/22/23 12/28/23 Rx fluticasone propionate 50 1 spray intranasal DAILY #16 grams 12/22/23 12/28/23 Rx mcg/actuation nasal spray,suspension (Flonase Allergy Relief) clindamycin HCl 300 mg capsule 300 mg PO Q8H 10 days #30 caps 12/27/23 12/28/23 Rx lamotrigine 100 mg tablet 100 mg PO DAILY 12/28/23 12/28/23 History levothyroxine 25 mcg tablet 25 mcg PO DAILY 12/28/23 12/28/23 History omeprazole 40 mg capsule,delayed 40 mg PO BID 12/28/23 12/28/23 History release oxycodone-acetaminophen 10 mg-325 1 tab PO QIDP PRN Moderate Pain 12/28/23 12/28/23 History mg tablet (Scale Score 5-6) promethazine 25 mg tablet 25 mg PO Q8HP PRN Nausea And 12/28/23 12/28/23 History Vomiting torsemide 100 mg tablet 100 mg PO DAILY Fluid 12/28/23 12/28/23 History trazodone 100 mg tablet 100 mg PO HS 12/28/23 12/28/23 History New Prescriptions to Start Prescriptions: Height: 1.55 m Weight: 187.4 kg Laboratory Results:: Laboratory Results - last 24 hr 12/27/23 23:39: VBG Lactic Acid 1.5 12/27/23 23:41: VBG pH 7.27 L, VBG pCO2 74.5 H, VBG pO2 36.3, VBG HCO3 33.6 H, VBG Total CO2 35.9 H, VBG O2 Saturation 73.4 H, VBG Base Excess 6.7 H, VBG Lactic Acid 1.4 12/27/23 23:50: WBC 8.3, RBC 4.52, Hgb 12.9, Hct 40.9, MCV 90.5, MCH 28.5, MCHC 31.4 L, RDW 17.6 H, Plt Count 225, MPV 8.0, Neut % (Auto) 72.4, Lymph % (Auto) 19.5, [place] % (Auto) 6.1, Eos % (Auto) 1.0, Baso % (Auto) 1.1, Neut # (Auto) 6.0, Lymph # (Auto) 1.6, [place] # (Auto) 0.5, Eos # (Auto) 0.1, Baso # (Auto) 0.1, Sodium 139, Potassium 4.5, Chloride 99, Carbon Dioxide 38 H, Anion Gap 6.5, BUN 24 H, Creatinine 1.10 H, Estimated Creat Clear 47, Estimated GFR 53 L, Est GFR ( Amer) 64, Glucose 129 H, Calcium 9.4, Total Bilirubin 0.1 L, AST 19, ALT 13, Alkaline Phosphatase 75, NT-Pro-B Natriuret Pep 129 H, Total Protein 7.1, Albumin 3.8, Globulin 3.3 H, Albumin/Globulin Ratio 1.2 12/28/23 00:43: SARS-CoV-2 (PCR) Not detected, Influenza A Untype (PCR) Not detected, Influenza Type B (PCR) Not detected 12/28/23 02:30: Urine Color Yellow, Urine Appearance Clear, Urine pH 6.0, Ur Specific [place] 1.025, Urine Protein Negative, Urine Glucose (UA) Negative, Urine Ketones Negative, Urine Blood Negative, Urine Nitrate Negative, Urine Bilirubin Negative, Urine Urobilinogen 0.2, Ur Leukocyte Esterase Negative, Urine WBC Occasional, Ur Squamous Epith Cells 3-5, Urine Bacteria Trace, Hyaline Casts 3-5 12/28/23 05:01: POC Glucose 151 H 12/28/23 06:20: WBC 7.1, RBC 4.19 L, Hgb 11.9 L, Hct 37.1, MCV 88.6, MCH 28.3, MCHC 32.0, RDW 17.4, Plt Count 193, MPV 8.4, Neut % (Auto) 73.0, Lymph % (Auto) 20.1, [place] % (Auto) 5.6, Eos % (Auto) 1.0, Baso % (Auto) 0.3, Neut # (Auto) 5.2, Lymph # (Auto) 1.4, [place] # (Auto) 0.4, Eos # (Auto) 0.1, Baso # (Auto) 0.0, Sodium 138, Potassium 4.2, Chloride 102, Carbon Dioxide 35 H, Anion Gap 5.2, BUN 22 H, Creatinine 1.00, Estimated Creat Clear 51, Estimated GFR 59, Est GFR ( Amer) 71, Glucose 160 H D, Calcium 8.8, Magnesium 2.0, Total Bilirubin 0.2, AST 17, ALT 13, Alkaline Phosphatase 62, C-Reactive Protein 45.2 H, Total Protein 6.0 L, Albumin 3.2 L D, Globulin 2.8, Albumin/Globulin Ratio 1.1, Procalcitonin 0.082 Medical History: Medical History (Updated 12/28/23 @ 00:44 by Leopoldo Titus MD) Palpitations Ear pain, right Acute and chronic respiratory failure with hypercapnia PTSD (post-traumatic stress disorder) Chest pain Generalized anxiety disorder Recurrent major depression resistant to treatment Sleep apnea History of ectopic History of hyperkalemia Diastolic congestive heart failure Paranoid schizophrenia Uses bilevel positive airway pressure (BPAP) ventilation at home History of sleep apnea History of asthma Cellulitis of right lower extremity Acute and chronic respiratory failure with hypercapnia Pneumonia Acute and chronic respiratory failure Right lower lobe pneumonia History of smoking 30 or more pack years Obesity hypoventilation syndrome Asthma Chronic respiratory failure with hypercapnia Severe sepsis COVID-19 Acute and chronic respiratory failure Pneumonia Tracheostomy in place Edema Sinus tachycardia Dizziness Diastolic dysfunction Acute on chronic diastolic heart failure Respiratory failure with hypoxia and hypercapnia Congestive heart failure Acute on chronic diastolic heart failure Elevated d-dimer PAC (premature atrial contraction) Chest pain Dyspnea HTN (hypertension) COPD (chronic obstructive pulmonary disease) Tobacco abuse Abnormal stress test SOB (shortness of breath) Angina, class III Obesity Hypothyroidism (~11/21/17) Asthma Insomnia Depression Anxiety Neuropathy Assessment and Plan Assessment and plan all Dx Assessment and Plan for all problems:: Pharmacokinetic dosing service Objective: Patient: Floor: Age: 48 yo Serum creatinine: 1.00 mg/dL Height: 61.0 Inches Weight (kg): 187.4 Assessment: IBW (kg): 47.80 Dosing wt(kg): 187.4 Estimated Creatinine clearance (ml/min): 51.4 CRCL method: Cockcroft and Gault using ibw(default). Drug selected: Vancomycin Loading dose (mg): Vd (liters): 149.9 (factor used: 0.8 L/kg) Bro (hr-1): 0.047 Half life (hrs): 14.75 CLvanco=?? 7.045 L/hr Recommended dose: 2000 mg Interval: 12 hrs Infusion time (hrs): 2.0 Predicted peak (mcg/mL): 29.5 Predicted trough (mcg/mL): 18.44 Total body weight is being used for vancomycin dosing. Recommendations: Give Vancomycin 2000 mg q 12 hrs with an expected Cpeak of 29.5 mcg/ml and an expected Ctrough of 18.44 mcg/ml AUC 0-24 /JOAN Data: JOAN 0.5 mcg/mL:?? AUC/JOAN:? 1135.6 JOAN 1.0 mcg/mL:?? AUC/JOAN:? 567.8 --------- JOAN 1.5 mcg/mL:?? AUC/JOAN:? 378.5 JOAN 2.0 mcg/mL:?? AUC/JOAN:? 283.9 Thank you for the consult, will continue to follow. -ISIDRO GARCIA, SAID
[2023-12-28] MEDS: BUMETANIDE 1MG/4ML VIAL 2 MG IV (10:44)
[2023-12-28] MEDS: CEFTRIAXONE SODIUM 2 GM in 0.9 % SODIUM CHLORIDE 100 ML IV (10:45)
[2023-12-28] MEDS: FLUTICASONE PROP 50MCG NASAL SPRAY 16GM 1 SPRAY NS (10:45)
[2023-12-28 10:55] LABS: POC Glucose,Bedside 130 (70-110)
[2023-12-28 11:34] LABS: Erythrocyte Sedimentation Rate 60 mm/hr (0-20)
[2023-12-28] MEDS: VANCOMYCIN HCL 2,000 MG in 0.9 % SODIUM CHLORIDE 250 ML 125 MG IV (13:20)
[2023-12-28] MEDS: BUMETANIDE 10 MG in 0.9 % SODIUM CHLORIDE 60 ML 5 MG IV (15:41)
--- NOTE | 2023-12-28 16:00 | PC.NURSE ---
Pt. is aox4, up with assist times 2, pain and nausea meds given twice my shift, now on a bumex gtt at 5 ml/hr through a 20g in the right ac, trach collar with o2 @ 10 ml.
[2023-12-28 16:29] LABS: POC Glucose,Bedside 123 (70-110)
[2023-12-28] MEDS: IPRATROPIUM/ALBUTEROL 3 ML NEB IH (18:30)
[2023-12-28] MEDS: PANTOPRAZOLE 40MG TABLET 40 MG PO (20:21)
[2023-12-28] MEDS: TRAZODONE 50MG TABLET 100 MG PO (20:22)
[2023-12-28 20:57] LABS: POC Glucose,Bedside 149 (70-110)
[2023-12-28] MEDS: OXYCODONE 10MG W/APAP 325MG TABLET 1 EACH PO (23:41)
[2023-12-29] VITALS (8 sets, daily range): BP systolic 92–126; BP diastolic 52–74; PULSE 74–95; RESP 16–22; TEMP 36.6–36.8; O2SAT 89–92; BMI 78.0; BMI 77.3; BMI 77.0
[2023-12-29] MEDS: VANCOMYCIN HCL 2,000 MG in 0.9 % SODIUM CHLORIDE 250 ML 125 MG IV ×2 (00:20→14:07)
[2023-12-29] MEDS: HYDROMORPHONE 2MG/ML SYRINGE 0.5 MG IV (02:49)
[2023-12-29] MEDS: ACETAMINOPHEN 325MG TAB 650 MG PO ×2 (03:48→18:28)
--- NOTE | 2023-12-29 04:51 | PC.NURSE ---
48 yo female pt admission dx of chronic cellulitis. Pt is A/O x 4. She has f/c to BSD , draining clear yellow urine. Pt has complained of pain to abdomen and head throughout the night. She was medicated, see MAR. She has had 2 episodes of emesis. FSBS at 9p was 149. Pts IV infiltrated to right wrist and IV site to L AC very sluggish to flush. Both sites DCed and IVs restarted using Ultrasound. Pt has since pulled out IV to left arm. Now she has 20 guage to the left shoulder area. She continues to utilize her Bipap prn, changing back and forth herself along with clearing her trach. Pt did require RT early in the shift due to complaints of mucus plug. she has sat on the side of the bed several times during the night but has not ambulated.
[2023-12-29] MEDS: LEVOTHYROXINE 25MCG (0.025MG) TAB 25 MCG PO (06:32)
--- NOTE | 2023-12-29 06:42 | PC.NURSE ---
Pt pulled IV site out. Pressure held for 2 mins. No further bleeding.
[2023-12-29] MEDS: BUDESONIDE 0.5MG/2ML NEB 0.5 MG IH ×2 (06:45→19:09)
[2023-12-29] MEDS: FLUTICASONE/UMECLIDIN/VILANTER 100/62.5/25MCG INHALER 1 PUFF IH (06:45)
[2023-12-29 06:47] LABS: POC Glucose,Bedside 150 (70-110)
[2023-12-29 07:05] LABS: Alanine Aminotransferase 15 U/L (12-78); Albumin Level 3.8 g/dl (3.5-5.0); Albumin/Globulin Ratio 1.3 (1.1-1.8); Alkaline Phosphatase 74 U/L (38-126); Aspartate Amino Transferase 21 U/L (14-36); Bilirubin,Total 0.2 mg/dl (0.2-1.3); Blood Urea Nitrogen 23 mg/dl (7-17); Calcium 8.1 mg/dl (8.4-10.2); Chloride 93 mmol/L (98-107); Creatinine Clearance Estimated 64 mL/min (50-200); Estimated Glomerular Filt Rate 76 ml/min (>60); GFR (African American) 92 ML/MIN (>60); Glucose 150 mg/dl (74-100); Magnesium 1.7 mg/dl (1.6-2.3); Potassium 4.1 mmoL/L (3.5-5.1); Sodium 141 mmol/L (136-145); Total Protein,Serum 6.8 g/dl (6.3-8.2)
[2023-12-29 07:20] LABS: Anion Gap 10.1 mEq/L (5-15); Carbon Dioxide 42 mmol/L (22.0-30.0)
[2023-12-29 08:01] LABS: Basophils % 0.4 % (0.1-2.0); Eosinophils % 0.2 % (0.1-12.0); Hematocrit 43.4 % (37.0-47.0); Hemoglobin 13.2 g/dL (12.2-16.2); Lymphocytes # 0.6 K/mm3 (0.7-4.5); Lymphocytes % 7.6 % (10-50); Mean Corpuscular HGB Conc 30.3 g/dL (31.8-35.4); Mean Corpuscular Hemoglobin 27.7 pg (27.0-31.2); Mean Corpuscular Volume 91.5 fl (81-99); Mean Platelet Volume 7.8 fl (7.4-10.4); Monocytes # 0.4 K/mm3 (0.1-1.0); Monocytes % 4.3 % (1.7-9.3); Neutrophils # 7.2 K/mm3 (1.8-7.8); Neutrophils % 87.5 % (37.0-80.0); Platelet Count 199 K/mm3 (142-424); Red Blood Count 4.75 M/mm3 (4.20-5.40); White Blood Count 8.2 K/mm3 (4.8-10.8)
[2023-12-29 08:03] LABS: MANUAL DIFFERENTIAL MANUAL DIFFERENTIAL (MANUAL DIFF)
[2023-12-29] MEDS: MAGNESIUM SULFATE IN WATER 2 GM/50 ML PIGGYBACK IV (08:49)
[2023-12-29] MEDS: BUMETANIDE 1 MG TABLET 2 MG PO (08:49)
[2023-12-29] MEDS: OXYCODONE 10MG W/APAP 325MG TABLET 1 EACH PO ×2 (09:41→22:25)
[2023-12-29] MEDS: ENOXAPARIN 60MG/0.6ML SYRINGE 60 MG SQ (09:42)
[2023-12-29] MEDS: lamoTRIgine 100MG TABLET 100 MG PO (09:42)
[2023-12-29] MEDS: GABAPENTIN 800MG TABLET 800 MG PO (09:42)
[2023-12-29] MEDS: SENNOSIDES 8.6MG/DOCUSATE 50MG TABLET 1 TAB PO ×2 (09:42→20:31)
[2023-12-29] MEDS: SPIRONOLACTONE 25MG TABLET 50 MG PO (09:42)
[2023-12-29] MEDS: IRBESARTAN 75MG TABLET 75 MG PO (09:42)
[2023-12-29] MEDS: CYCLOBENZAPRINE 10MG TABLET 5 MG PO ×3 (09:43→20:32)
[2023-12-29] MEDS: PROPRANOLOL 20MG TAB 10 MG PO ×2 (09:43→20:32)
[2023-12-29] MEDS: DULOXETINE 30MG CAPSULE.DR 90 MG PO (09:43)
[2023-12-29] MEDS: MAGNESIUM OXIDE 400MG TABLET 800 MG PO (09:43)
[2023-12-29] MEDS: FLUTICASONE PROP 50MCG NASAL SPRAY 16GM 1 SPRAY NS (09:44)
[2023-12-29 09:50] LABS: Lymphocytes % 12 % (10-50); Monocytes % 3 % (2-9); Neutrophils % 85 % (42-76); Platelet Estimate Normal; RBC Morphology Normal; Total Cells Counted 100
[2023-12-29] MEDS: diazePAM 5MG TABLET 2.5 MG PO ×3 (09:53→20:31)
[2023-12-29] MEDS: CEFTRIAXONE SODIUM 2 GM in 0.9 % SODIUM CHLORIDE 100 ML IV (10:24)
[2023-12-29 10:43] LABS: POC Glucose,Bedside 124 (70-110)
[2023-12-29] MEDS: BUMETANIDE 10 MG in 0.9 % SODIUM CHLORIDE 60 ML 5 MG IV (11:03)
--- NOTE | 2023-12-29 11:38 | EXP.ACUTE.PN ---
Subjective *Date: 12/29/23 *Time: 11:38 Interval history: Somewhat confused this morning, clear during exam. Received her home meds last night before bed, concern for polypharmacy and oversedation. Stable on her baseline oxygen with her trach. Wore her BiPAP overnight. Having adequate urine output. Has put out over 10 L in the past 24 hours, -8.5 L. Afebrile. No nausea or vomiting. Electrolytes stable on exam this morning. Seeing some improvement in the redness of her abdomen Medical Exam Vital signs and Labs for Last 24 Hours: Vital Signs Temp Pulse Pulse Resp BP Pulse Ox O2 Del Method 12/29/23 09:00 Trach Collar/Tube 12/29/23 08:00 Trach Collar/Tube 12/29/23 07:35 98.2 F 91 H 18 126/63 90 L Trach Mask 12/29/23 06:45 Trach Collar/Tube 12/29/23 05:00 Trach Collar/Tube 12/29/23 04:00 98.3 F 74 16 113/74 92 L Trach Collar/Tube 12/29/23 03:00 Trach Collar/Tube 12/29/23 01:00 Trach Collar/Tube 12/28/23 23:00 Trach Collar/Tube 12/28/23 21:00 Trach Collar/Tube 12/28/23 20:00 92 L Trach Collar/Tube 12/28/23 19:49 98.6 F 95 H 16 117/73 92 L Trach Collar/Tube 12/28/23 18:30 69 12/28/23 18:30 72 12/28/23 18:30 92 L Trach Mask 12/28/23 17:50 Trach Collar/Tube 12/28/23 16:26 Trach Collar/Tube 12/28/23 16:00 98.3 F 104 H 18 105/58 L 91 L Trach Mask 12/28/23 13:56 Trach Collar/Tube 12/28/23 12:20 Trach Collar/Tube O2 Flow Rate FiO2 12/29/23 09:00 12/29/23 08:00 8 12/29/23 07:35 12/29/23 06:45 10 12/29/23 05:00 10 12/29/23 04:00 12/29/23 03:00 10 12/29/23 01:00 10 12/28/23 23:00 10 12/28/23 21:00 10 12/28/23 20:00 10 12/28/23 19:49 12/28/23 18:30 12/28/23 18:30 12/28/23 18:30 10 40 12/28/23 17:50 10 12/28/23 16:26 10 12/28/23 16:00 12/28/23 13:56 10 12/28/23 12:20 10 Intake and Output 12/28/23 12/29/23 12/29/23 23:59 07:59 15:59 Intake Total 20 1702 592 / 592 Output Total 5800 / 9550 1050 / 1600 550 / 1600 Balance -5780 / -7848 -458 / -1008 -550 / -1008 Intake: Intake, Oral Amount 300 / 300 Intake, Total IV Amount 2 292 / 292 Bumetanide 10 mg In 0.9 % 42 / 42 Sodium Chloride 60 ml @ 5 mls/ hr IV .Q20H [facility] Rx#:[id number] Vancomycin HCl 2,000 mg In 0.9 250 / 250 % Sodium Chloride 250 ml @ 125 mls/hr IV Q12H [facility] Rx#:[id number] Output: Output, Urine Amount 5800 / 9550 850 / 1400 550 / 1400 Output, Emesis Amount 200 / 200 Other: Number of Unmeasured Voids 0 0 0 Weight 187.4 kg Patient Weight 12/29/23 23:59 Weight 187.4 kg Laboratory Results - last 24 hr 12/28/23 16:23: POC Glucose 123 H 12/28/23 20:30: POC Glucose 149 H 12/29/23 06:32: POC Glucose 150 H 12/29/23 06:33: WBC 8.2, RBC 4.75, Hgb 13.2, Hct 43.4, MCV 91.5, MCH 27.7, MCHC 30.3 L, RDW 17.0, Plt Count 199, MPV 7.8, Neut % (Auto) 87.5 H, Lymph % (Auto) 7.6 L, [place] % (Auto) 4.3, Eos % (Auto) 0.2, Baso % (Auto) 0.4, Neut # (Auto) 7.2, Lymph # (Auto) 0.6 L, [place] # (Auto) 0.4, Eos # (Auto) 0.0, Baso # (Auto) 0.0, Total Counted 100, Neutrophils % (Manual) 85 H, Lymphocytes % (Manual) 12, Monocytes % (Manual) 3, Platelet Estimate Normal, RBC Morphology Normal, Sodium 141, Potassium 4.1, Chloride 93 L, Carbon Dioxide 42 H*, Anion Gap 10.1, BUN 23 H, Creatinine 0.80, Estimated Creat Clear 64, Estimated GFR 76, Est GFR ( Amer) 92 D, Glucose 150 H, Calcium 8.1 L, Magnesium 1.7 D, Total Bilirubin 0.2, AST 21, ALT 15, Alkaline Phosphatase 74, Total Protein 6.8, Albumin 3.8 D, Globulin 3.0, Albumin/Globulin Ratio 1.3 12/29/23 10:31: POC Glucose 124 H I & O for Labs for Last 24 Hours: Intake & Output 12/26/23 12/27/23 12/28/23 12/29/23 23:59 23:59 23:59 23:59 Intake Total 1460 / 1702 592 / 592 Output Total 8950 / 9550 1600 / 1600 Balance -7490 / -7848 -1008 / -1008 Weight 183.251 kg 187.4 kg 187.4 kg Microbiology Reports for the Last 24 Hours: Microbiology 12/28/23 00:05 Blood Blood Culture - Preliminary NO GROWTH AFTER 24 HOURS 12/27/23 23:50 Blood Blood Culture - Preliminary NO GROWTH AFTER 24 HOURS Constitutional: Present mild distress, morbidly obese, chronically ill appearing and cooperative Head: Present atraumatic and normocephalic ENT: Present normal exam Comment:: Cushingoid face Comment:: Prominent neck, tracheostomy in place. No significant drainage or leakage around trach. 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 Still covers approximately about half of abdominal wall/pannus Extremities: Present normal inspection, full ROM and edema (2+ in lower extremities to knees) Skin: Present intact, erythema and wounds Neuro: Present Grossly Intact, alert, awake, oriented x 3 and moves all extremities Assessment and Plan *Assessment and plan (1) Abdominal wall cellulitis: Status: Acute Category: Medical Code(s): L03.311 - Cellulitis of abdominal wall (2) Right leg swelling: Status: Acute Category: Medical Code(s): M79.89 - Other specified soft tissue disorders (3) (HFpEF) heart failure with preserved ejection fraction: Status: Acute Category: Medical Code(s): I50.30 - Unspecified diastolic (congestive) heart failure (4) Acute and chronic respiratory failure: Status: Acute Qualifiers: Respiratory failure complication: hypercapnia Qualified Code(s): J96.22 - Acute and chronic respiratory failure with hypercapnia Category: Medical Code(s): J96.20 - Acute and chronic respiratory failure, unspecified whether with hypoxia or hypercapnia (5) Edema, peripheral: Status: Resolved Category: Medical Code(s): R60.9 - Edema, unspecified (6) Tracheostomy in place: Status: Acute Category: Medical Code(s): Z93.0 - Tracheostomy status (7) Obesity hypoventilation syndrome: Status: Chronic Category: Medical Code(s): E66.2 - Morbid (severe) obesity with alveolar hypoventilation (8) Headache: Status: Resolved Qualifiers: Headache chronicity pattern: chronic headache Headache type: unspecified Intractability: not intractable Qualified Code(s): R51.9 - Headache, unspecified; G89.29 - Other chronic pain Category: Medical Code(s): R51.9 - Headache, unspecified (9) COPD (chronic obstructive pulmonary disease): Status: Acute Qualifiers: COPD type: COPD with acute exacerbation Qualified Code(s): J44.1 - Chronic obstructive pulmonary disease with (acute) exacerbation Category: Medical Code(s): J44.9 - Chronic obstructive pulmonary disease, unspecified (10) Diastolic congestive heart failure: Status: Acute Qualifiers: Heart failure chronicity: chronic Qualified Code(s): I50.32 - Chronic diastolic (congestive) heart failure Category: Medical Code(s): I50.30 - Unspecified diastolic (congestive) heart failure (11) Uses bilevel positive airway pressure (BPAP) ventilation at home: Status: Chronic Category: Medical Code(s): Z99.89 - Dependence on other enabling machines and devices (12) MDD (major depressive disorder), recurrent episode: Status: Acute Qualifiers: Major depression episode severity: severe Psychotic features: with psychotic features Qualified Code(s): F33.3 - Major depressive disorder, recurrent, severe with psychotic symptoms Category: Medical Code(s): F33.9 - Major depressive disorder, recurrent, unspecified (13) Diabetes mellitus, type 2: Status: Acute Qualifiers: Diabetes mellitus group home insulin use: without group home use Diabetes mellitus complication status: with neurologic complications Diabetes mellitus complication detail: with unspecified neuropathy Qualified Code(s): E11.40 - Type 2 diabetes mellitus with diabetic neuropathy, unspecified Category: Medical Code(s): E11.9 - Type 2 diabetes mellitus without complications (14) Obesity, morbid: Status: Acute Category: Medical Code(s): E66.01 - Morbid (severe) obesity due to excess calories (15) History of smoking 30 or more pack years: Status: Chronic Category: Social Hx Code(s): Z87.891 - Personal history of nicotine dependence Plan Morbidly obese 47-year-old female with a PMHx of chronic hypoventilation syndrome, respiratory failure post COVID, trach dependance, on home oxygen 3L, MDD, migraine, hypothyroidism, anxiety disorder, diastolic heart failure, normal EF, chronic bilateral lymphedema and a former smoker. came to ED c/o wall abdominal pain and redness. Lab was obtained. Grossly unremarkable. ABG was showing acute on chronic hypoxic and hypercarbic respiratory failure with mild respiratory acidosis. findings discussed with the ER doctor. Agreed for admission for further treatment and management. Concern for panniculitis as well as component of volume overload given the significant edema and pitting of her abdominal wall. Aggressively diuresing, -8.5 L in the past 24 hours. Seeing some improvement in redness and edema. Will continue diuresis. Continues to require inpatient management. High risk for readmission given her comorbidities. Problems addressed as follows: Cellulitis/panniculitis of the abdominal wall. failed outpatient treatment Right leg chronic edema Acute on chronic hypercapnic respiratory failure, likely secondary to acute on chronic heart failure with preserved ejection fraction and Obesity hypoventilation syndrome Continues to require inpatient management. Responding to diuresis. -8.5 L in the past 24 hours. Continue Bumex drip today. Replacing electrolytes as needed, magnesium 1.7, will replace IV x 1 with [address] due to profound diuresis Daily weight. Strict I/Os. Respiratory therapy to assist. Okay for home BiPAP to use. Continue vancomycin and ceftriaxone 2 g once daily ceftriaxone. Seeing improvement in redness. DuoNeb every 6h for shortness of breath Can continue home spironolactone 50 mg daily Repeat BMP this afternoon at 5. Ordered CBC, CMP, magnesium for the morning. Close monitoring of electrolytes and kidney function with aggressive diuresis -Tracheostomy dependance. obesity hypoventilation syndrome respiratory failure s/p COVID -Continue trach care per nursing; Continue home BiPAP supplemental oxygen at night -Headache/history of migraines: Ubrelvy 100 ordered as needed daily Tylenol and morphine as needed for pain management. -MDD with anxierty: resume diazepam 2.5 mg 3 times a day as needed, trazodone 100 mg nightly Hypothyroid: Can continue levo rocs and 25 mcg daily Prediabetes: last a1c 6.2, monitor glucose before meal, sliding scale insulin as needed Morbidly obese. Complicates all aspects of her care. High risk for readmission. Currently applied for Medicaid waiver for help at home. No interest in going to rehab. Does not qualify for home health due to her insurance lovenox for DVT prophylaxis Protonix for GI bleeding prophylaxis. DNR
[2023-12-29] MEDS: PHA TO NURSING INSTRUCTION 1 EACH NOTAPPLIC (12:00)
[2023-12-29 13:07] LABS: Vancomycin,Trough 16.7 ug/mL (5.0-10.0)
--- NOTE | 2023-12-29 13:19 | EXP.PHA.CONS ---
Pharmacy Consult Date: 12/29/23 Time: 13:20 Referring provider: DR. SAWANT Reason for Consult:: VANCOMYCIN TROUGH LEVEL Allergies Allergy/AdvReac Type Severity Reaction Status Date / Time doxycycline Allergy Severe Blister Verified 11/29/23 08:52 Sulfa (Sulfonamide AdvReac Intermediate Rash Verified 12/27/23 23:57 Antibiotics) amoxicillin AdvReac Verified 11/29/23 08:52 nitrofurantoin AdvReac Verified 11/29/23 08:52 [From Macrobid] Home Medications ?Medication ?Instructions ?Recorded ?Confirmed ?Type blood sugar diagnostic ([facility] 01/01/23 12/28/23 History Verio test strips) [facility] History Plus Lancet) ipratropium 0.5 mg-albuterol 3 mg 3 ml inhalation QID PRN shortness 02/09/23 12/28/23 Rx (2.5 mg base)/3 mL nebulization of breath or wheezing 90 days #270 soln mL sumatriptan succinate 100 mg tablet 100 mg PO NEEDED PRN Migraine 05/19/23 12/28/23 Rx Headache #10 tabs linaclotide 72 mcg capsule 72 mcg PO DAILY constipation #90 08/29/23 12/28/23 Rx (Linzess) caps duloxetine 30 mg capsule,delayed 90 mg (3 x 30 mg) PO DAILY Mood 60 09/11/23 12/28/23 Rx release days #180 caps fluticasone fur. 100 mcg-umeclid 1 inh inhalation DAILY 90 days #90 09/19/23 12/28/23 Rx 62.5 mcg-vilant 25 mcg ea inhalat.powder (Trelegy Ellipta) gabapentin 800 mg tablet 800 mg PO TID Neuropathy #90 tabs 11/09/23 12/28/23 Rx spironolactone 50 mg tablet 50 mg PO DAILY 90 days #90 tabs 11/09/23 12/28/23 Rx (Aldactone) acetylcysteine 100 mg/mL (10 %) 2 ml inhalation Q8H PRN cough #100 11/21/23 12/28/23 Rx solution mL losartan 25 mg tablet 25 mg PO DAILY #30 tabs 11/21/23 12/28/23 Rx magnesium oxide 400 mg (241.3 mg 800 mg (2 x 400 mg (241.3 mg 11/21/23 12/28/23 Rx magnesium) tablet magnesium)) PO DAILY #60 tabs propranolol 10 mg tablet 10 mg PO BID #60 tabs 11/21/23 12/28/23 Rx budesonide 0.5 mg/2 mL suspension 0.5 mg (2 mL) inhalation Q12H #120 11/22/23 12/28/23 Rx for nebulization mL formoterol fumarate 20 mcg/2 mL 2 ml inhalation BID 30 days #120 mL 11/22/23 12/28/23 Rx solution for nebulization (Perforomist) cyclobenzaprine 5 mg tablet 5 mg PO TID Muscle relaxer 90 days 11/24/23 12/28/23 Rx #270 tabs diazepam 5 mg tablet 2.5 mg (1/2 x 5 mg) PO TID 30 days 11/29/23 12/28/23 Rx #45 tabs bisacodyl 5 mg tablet,delayed 5 mg PO HS PRN constipation 15 11/30/23 12/28/23 Rx release (Dulcolax (bisacodyl)) days #15 tabs ondansetron 4 mg disintegrating 4 mg PO Q6H PRN nausea and 11/30/23 12/28/23 Rx tablet vomiting #30 tabs albuterol sulfate 90 mcg/actuation 1 puff inhalation Q6HP PRN 12/11/23 12/28/23 Rx aerosol inhaler Shortness Of Breath #8.5 grams acetylcysteine 600 mg capsule 600 mg PO DAILY PRN cough #30 caps 12/22/23 12/28/23 Rx fluticasone propionate 50 1 spray intranasal DAILY #16 grams 12/22/23 12/28/23 Rx mcg/actuation nasal spray,suspension (Flonase Allergy Relief) clindamycin HCl 300 mg capsule 300 mg PO Q8H 10 days #30 caps 12/27/23 12/28/23 Rx lamotrigine 100 mg tablet 100 mg PO DAILY 12/28/23 12/28/23 History levothyroxine 25 mcg tablet 25 mcg PO DAILY 12/28/23 12/28/23 History omeprazole 40 mg capsule,delayed 40 mg PO BID 12/28/23 12/28/23 History release oxycodone-acetaminophen 10 mg-325 1 tab PO QIDP PRN Moderate Pain 12/28/23 12/28/23 History mg tablet (Scale Score 5-6) promethazine 25 mg tablet 25 mg PO Q8HP PRN Nausea And 12/28/23 12/28/23 History Vomiting torsemide 100 mg tablet 100 mg PO DAILY Fluid 12/28/23 12/28/23 History trazodone 100 mg tablet 100 mg PO HS 12/28/23 12/28/23 History New Prescriptions to Start Prescriptions: Height: 1.55 m Weight: 185.7 kg Laboratory Results:: Laboratory Results - last 24 hr 12/28/23 16:23: POC Glucose 123 H 12/28/23 20:30: POC Glucose 149 H 12/29/23 06:32: POC Glucose 150 H 12/29/23 06:33: WBC 8.2, RBC 4.75, Hgb 13.2, Hct 43.4, MCV 91.5, MCH 27.7, MCHC 30.3 L, RDW 17.0, Plt Count 199, MPV 7.8, Neut % (Auto) 87.5 H, Lymph % (Auto) 7.6 L, [place] % (Auto) 4.3, Eos % (Auto) 0.2, Baso % (Auto) 0.4, Neut # (Auto) 7.2, Lymph # (Auto) 0.6 L, [place] # (Auto) 0.4, Eos # (Auto) 0.0, Baso # (Auto) 0.0, Total Counted 100, Neutrophils % (Manual) 85 H, Lymphocytes % (Manual) 12, Monocytes % (Manual) 3, Platelet Estimate Normal, RBC Morphology Normal, Sodium 141, Potassium 4.1, Chloride 93 L, Carbon Dioxide 42 H*, Anion Gap 10.1, BUN 23 H, Creatinine 0.80, Estimated Creat Clear 64, Estimated GFR 76, Est GFR ( Amer) 92 D, Glucose 150 H, Calcium 8.1 L, Magnesium 1.7 D, Total Bilirubin 0.2, AST 21, ALT 15, Alkaline Phosphatase 74, Total Protein 6.8, Albumin 3.8 D, Globulin 3.0, Albumin/Globulin Ratio 1.3 12/29/23 10:31: POC Glucose 124 H 12/29/23 12:00: Vancomycin Trough 16.7 H Medical History: Medical History (Updated 12/29/23 @ 11:43 by Dean Sawant MD) Palpitations Ear pain, right Acute and chronic respiratory failure with hypercapnia PTSD (post-traumatic stress disorder) Chest pain Generalized anxiety disorder Recurrent major depression resistant to treatment Sleep apnea History of ectopic History of hyperkalemia Diastolic congestive heart failure Paranoid schizophrenia Uses bilevel positive airway pressure (BPAP) ventilation at home History of sleep apnea History of asthma Cellulitis of right lower extremity Acute and chronic respiratory failure with hypercapnia Pneumonia Acute and chronic respiratory failure Right lower lobe pneumonia History of smoking 30 or more pack years Obesity hypoventilation syndrome Asthma Chronic respiratory failure with hypercapnia Severe sepsis COVID-19 Acute and chronic respiratory failure Pneumonia Tracheostomy in place Edema Sinus tachycardia Dizziness Diastolic dysfunction Acute on chronic diastolic heart failure Respiratory failure with hypoxia and hypercapnia Congestive heart failure Acute on chronic diastolic heart failure Elevated d-dimer PAC (premature atrial contraction) Chest pain Dyspnea HTN (hypertension) COPD (chronic obstructive pulmonary disease) Tobacco abuse Abnormal stress test SOB (shortness of breath) Angina, class III Obesity Hypothyroidism (~11/21/17) Asthma Insomnia Depression Anxiety Neuropathy Assessment and Plan Assessment and plan all Dx Assessment and Plan for all problems:: BASED ON PATIENT FACTORS AND VANCOMYCIN TROUGH LEVEL OF 16.7, RECOMMEND CONTINUING CURRENT DOSE OF VANCOMYCIN AT 2,000MG EVERY 12 HOURS. PHARMACY WILL CONTINUE TO MONITOR AND WILL ADJUST DOSE APPROPRIATE. -ISIDRO GARCIA, SAID
[2023-12-29] MEDS: GABAPENTIN 600MG TABLET 600 MG PO ×2 (14:08→20:31)
--- NOTE | 2023-12-29 14:54 | PC.NURSE ---
Pt C/O SOA this afternoon. Was suctioned by this nurse and RT. Breathing TX administered. Pt has c/o discomfort to head and general pain. Medicated per aug. New iV's placed this shift. #22 ASCENCION and 20 LAC US guided. BP has been soft this afternoon. Call light within reach.
[2023-12-29] MEDS: UBROGEPANT 50MG TABLET 50 MG PO (15:28)
[2023-12-29] MEDS: ONDANSETRON 4MG/2ML VIAL 4 MG IV (15:28)
[2023-12-29] MEDS: PROMETHAZINE HCL 25MG/ML 1ML VIAL 12.5 MG IM (16:03)
[2023-12-29 16:15] LABS: POC Glucose,Bedside 107 (70-110)
[2023-12-29 17:29] LABS: Blood Urea Nitrogen 25 mg/dl (7-17); Calcium 7.9 mg/dl (8.4-10.2); Chloride 89 mmol/L (98-107); Creatinine Clearance Estimated 51 mL/min (50-200); Estimated Glomerular Filt Rate 59 ml/min (>60); GFR (African American) 71 ML/MIN (>60); Glucose 121 mg/dl (74-100); Magnesium 2.2 mg/dl (1.6-2.3); Sodium 138 mmol/L (136-145)
[2023-12-29 17:34] LABS: Vancomycin,Peak 35.1 ug/ml (11-39)
[2023-12-29 17:38] LABS: Carbon Dioxide 46 mmol/L (22.0-30.0)
[2023-12-29] MEDS: BUMETANIDE 1MG/4ML VIAL 2 MG IV (18:26)
--- NOTE | 2023-12-29 18:52 | PC.NURSE ---
Pt continues to C/O headache. Tylenol PO administered. Pt is up to the chair. Pt educated on safety. Call light placed within reach. Pharmacy was contacted for medication, acetazolamide.
[2023-12-29] MEDS: IPRATROPIUM/ALBUTEROL 3 ML NEB IH ×2 (19:09→23:02)
--- NOTE | 2023-12-29 19:50 | PC.NURSE ---
Addendum entered by Raquel Angela RN 12/29/23 21:46: ABG abnormal - hospitalist contacted and consulted Pulm. Patient moved to [place] and on cont. BIPAP. Report gave to Sarika Avilez. Original Note: bed alarm turned on at 190 for safety concerns and patient getting up and down. At 1939 RT was called r/t oxygen sats in 79s-84s, patient then removed bipap from trach by self and was educated to not do that unassisted since her oxygen was already very low- patient placed bipap back on. 1944 RT arrived and assessed patient. CPT placed to monitor oxygen t/o the shift.
[2023-12-29 20:19] LABS: POC Glucose,Bedside 115 (70-110)
[2023-12-29 20:28] LABS: ABG Base Excess 20.3 mmol/L (-2.4-2.3); ABG HCO3 46.7 mmhg (22.0-26.0); ABG Oxygen Saturation 95 % (90-100); ABG PH 7.31 mmol/L (7.35-7.45); ABG PO2 77.4 mmhg (80-100); ABG TCO2 49.6 mmhg (23-27)
[2023-12-29 20:29] LABS: Allen's Test Acceptable; Oxygen 10L %; Source R Radial; Tidal Volume on home BiPAP
[2023-12-29 20:30] LABS: ABG PCO2 95.7 mmhg (35.0-45.0)
[2023-12-29] MEDS: PANTOPRAZOLE 40MG TABLET 40 MG PO (20:31)
[2023-12-29] MEDS: acetaZOLAMIDE 250 MG TABLET PO (20:31)
[2023-12-29] MEDS: TRAZODONE 50MG TABLET 100 MG PO (20:31)
--- NOTE | 2023-12-29 21:13 | XR_ITS ---
PROCEDURE INFORMATION: Exam: XR Chest Exam date and time: 12/29/2023 9:22 PM Age: 48 years old Clinical indication: Other: Hypoxia TECHNIQUE: Imaging protocol: Radiologic exam of the chest. Views: 1 view. COMPARISON: CT ANGIO CHEST PE PROTOCOL 12/28/2023 12:02 AM FINDINGS: Lungs: Extensive interstitial opacities bilaterally concerning for severe pneumonia. Pleural spaces: Unremarkable. No pleural effusion. No pneumothorax. Heart/Mediastinum: Unremarkable. No cardiomegaly. Bones/joints: Unremarkable. IMPRESSION: Extensive interstitial opacities bilaterally concerning for severe pneumonia.
[2023-12-29] MEDS: METRONIDAZ/SOD CHL 500 MG/100 ML PIGGYBACK 100 MG IV (23:25)
[2023-12-30] VITALS (22 sets, daily range): BP systolic 84–140; BP diastolic 53–76; PULSE 73–100; RESP 17–27; TEMP 36.6–37; O2SAT 80–95; BMI 72.3
--- NOTE | 2023-12-30 00:08 | PC.NURSE ---
RESP CARE NOTE: SPUTUM COLLECTED AND SENT TO LAB AT THIS TIME
[2023-12-30 00:09] LABS: ABG Base Excess 18.2 mmol/L (-2.4-2.3); ABG HCO3 45.2 mmhg (22.0-26.0); ABG Oxygen Saturation 93 % (90-100); ABG PH 7.26 mmol/L (7.35-7.45); ABG PO2 71.5 mmhg (80-100); ABG TCO2 48.4 mmhg (23-27)
[2023-12-30 00:12] LABS: Allen's Test Acceptable; Oxygen 45% %; Source Left Radial; Tidal Volume 16/8; Vent Rate 20
[2023-12-30 00:13] LABS: ABG PCO2 102.4 mmhg (35.0-45.0)
[2023-12-30] MEDS: VANCOMYCIN HCL 2,000 MG in 0.9 % SODIUM CHLORIDE 250 ML 125 MG IV ×2 (00:20→12:25)
[2023-12-30] MEDS: IPRATROPIUM/ALBUTEROL 3 ML NEB IH ×6 (03:40→22:10)
[2023-12-30 03:52] LABS: ABG Base Excess 15.8 mmol/L (-2.4-2.3); ABG HCO3 41.5 mmhg (22.0-26.0); ABG Oxygen Saturation 90 % (90-100); ABG PH 7.34 mmol/L (7.35-7.45); ABG PO2 59.3 mmhg (80-100)
[2023-12-30 03:55] LABS: ABG PCO2 78.6 mmhg (35.0-45.0); Allen's Test Acceptable; Oxygen 45% %; Source Left Radial; Tidal Volume 22/8; Vent Rate 20
[2023-12-30] MEDS: BUMETANIDE 10 MG in 0.9 % SODIUM CHLORIDE 60 ML 5 MG IV (05:00)
[2023-12-30 05:52] LABS: POC Glucose,Bedside 91 (70-110)
[2023-12-30] MEDS: BUDESONIDE 0.5MG/2ML NEB 0.5 MG IH ×2 (06:24→18:29)
[2023-12-30] MEDS: FLUTICASONE/UMECLIDIN/VILANTER 100/62.5/25MCG INHALER 1 PUFF IH (06:29)
[2023-12-30] MEDS: LEVOTHYROXINE 25MCG (0.025MG) TAB 25 MCG PO (06:31)
[2023-12-30] MEDS: METRONIDAZ/SOD CHL 500 MG/100 ML PIGGYBACK 100 MG IV ×3 (06:31→21:43)
[2023-12-30 06:52] LABS: ABG Base Excess 24.1 mmol/L (-2.4-2.3); ABG HCO3 49.7 mmhg (22.0-26.0); ABG Oxygen Saturation 91 % (90-100); ABG PH 7.35 mmol/L (7.35-7.45); ABG PO2 60.2 mmhg (80-100); ABG TCO2 52.5 mmhg (23-27)
[2023-12-30 06:55] LABS: Allen's Test Acceptable; Oxygen Bipap 22/8 45% %; Source Right Radial; Vent Rate 20
[2023-12-30 06:57] LABS: ABG PCO2 91.4 mmhg (35.0-45.0)
[2023-12-30 07:32] LABS: Albumin Level 3.4 g/dl (3.5-5.0); Chloride 89 mmol/L (98-107); Potassium 3.6 mmoL/L (3.5-5.1); Sodium 138 mmol/L (136-145)
[2023-12-30 07:33] LABS: Basophils % 0.5 % (0.1-2.0); Eosinophils % 0.6 % (0.1-12.0); Hematocrit 37.7 % (37.0-47.0); Hemoglobin 11.8 g/dL (12.2-16.2); Lymphocytes % 14.4 % (10-50); Mean Corpuscular HGB Conc 31.2 g/dL (31.8-35.4); Mean Corpuscular Hemoglobin 28.4 pg (27.0-31.2); Mean Corpuscular Volume 91.2 fl (81-99); Mean Platelet Volume 7.8 fl (7.4-10.4); Monocytes # 0.5 K/mm3 (0.1-1.0); Monocytes % 6.5 % (1.7-9.3); Neutrophils # 5.4 K/mm3 (1.8-7.8); Platelet Count 189 K/mm3 (142-424); Red Blood Count 4.13 M/mm3 (4.20-5.40); Red Cell Distribution Width 17.1 % (11.5-17.5)
[2023-12-30 07:35] LABS: Alanine Aminotransferase 14 U/L (12-78); Albumin/Globulin Ratio 1.2 (1.1-1.8); Alkaline Phosphatase 66 U/L (38-126); Aspartate Amino Transferase 20 U/L (14-36); Bilirubin,Total 0.2 mg/dl (0.2-1.3); Blood Urea Nitrogen 23 mg/dl (7-17); Creatinine Clearance Estimated 47 mL/min (50-200); Estimated Glomerular Filt Rate 53 ml/min (>60); GFR (African American) 64 ML/MIN (>60); Globulin 2.9 g/dL (1.3-3.2); Total Protein,Serum 6.3 g/dl (6.3-8.2)
[2023-12-30 07:36] LABS: Calcium 7.4 mg/dl (8.4-10.2); Glucose 90 mg/dl (74-100)
[2023-12-30] MEDS: IRBESARTAN 75MG TABLET 75 MG PO (07:48)
[2023-12-30] MEDS: diazePAM 5MG TABLET 2.5 MG PO ×3 (07:48→21:43)
[2023-12-30] MEDS: DULOXETINE 30MG CAPSULE.DR 90 MG PO (07:48)
[2023-12-30] MEDS: acetaZOLAMIDE 250 MG TABLET PO ×2 (07:48→21:42)
[2023-12-30] MEDS: ENOXAPARIN 60MG/0.6ML SYRINGE 60 MG SQ ×2 (07:49→21:41)
[2023-12-30] MEDS: CYCLOBENZAPRINE 10MG TABLET 5 MG PO ×3 (07:49→21:42)
[2023-12-30] MEDS: GABAPENTIN 600MG TABLET 600 MG PO ×3 (07:49→21:43)
[2023-12-30] MEDS: lamoTRIgine 100MG TABLET 100 MG PO (07:50)
[2023-12-30] MEDS: PROPRANOLOL 20MG TAB 10 MG PO ×2 (07:50→21:58)
[2023-12-30] MEDS: SENNOSIDES 8.6MG/DOCUSATE 50MG TABLET 1 TAB PO ×2 (07:50→21:43)
[2023-12-30] MEDS: SPIRONOLACTONE 25MG TABLET 50 MG PO (07:50)
[2023-12-30] MEDS: MAGNESIUM OXIDE 400MG TABLET 800 MG PO (07:51)
[2023-12-30 07:55] LABS: Anion Gap 5.6 mEq/L (5-15); Carbon Dioxide 47 mmol/L (22.0-30.0)
--- NOTE | 2023-12-30 08:04 | EXP.ACUTE.PN ---
Subjective *Date: 12/30/23 *Time: 15:59 Interval history: Patient had an episode overnight where she became more confused and hypoxic. Found to be in hypercapnic failure. Transition to BiPAP through her trach. Pulmonology consulted and assisting with care. More alert this morning. Tolerating BiPAP well. No nausea or vomiting. Having improved response to Bumex drip. Afebrile. No increase in sputum production. Abdomen looking better on exam. Medical Exam Vital signs and Labs for Last 24 Hours: Vital Signs Temp Pulse Pulse Resp BP Pulse Ox O2 Del Method 12/30/23 06:47 Trach Collar/Tube 12/30/23 06:30 81 12/30/23 06:30 84 12/30/23 06:30 95 BiPAP 12/30/23 06:30 12/30/23 06:00 82 18 99/57 L 95 BiPAP 12/30/23 05:00 BiPAP 12/30/23 04:00 98.6 F 12/30/23 04:00 77 20 99/59 L 94 L BiPAP 12/30/23 04:00 BiPAP 12/30/23 04:00 80 12/30/23 03:50 79 12/30/23 03:50 78 12/30/23 03:47 12/30/23 03:00 BiPAP 12/30/23 02:00 78 20 91/53 L 95 BiPAP 12/30/23 01:00 BiPAP 12/30/23 00:35 12/30/23 00:10 85 20 12/30/23 00:00 90 12/30/23 00:00 97.8 F 12/29/23 23:03 75 12/29/23 23:03 85 12/29/23 23:00 BiPAP 12/29/23 21:46 92 L BiPAP 12/29/23 21:36 12/29/23 21:00 BiPAP 12/29/23 20:00 BiPAP 12/29/23 20:00 98.3 F 90 22 123/61 89 L Trach Mask 12/29/23 19:10 95 H 12/29/23 19:10 86 12/29/23 18:46 Trach Collar/Tube 12/29/23 16:42 Trach Collar/Tube 12/29/23 15:09 97.8 F 94 H 22 92/52 L 90 L 12/29/23 15:00 Room Air 12/29/23 13:00 Trach Collar/Tube 12/29/23 11:00 Trach Collar/Tube 12/29/23 09:00 Trach Collar/Tube O2 Flow Rate FiO2 12/30/23 06:47 12/30/23 06:30 12/30/23 06:30 12/30/23 06:30 45 12/30/23 06:30 45 12/30/23 06:00 12/30/23 05:00 12/30/23 04:00 12/30/23 04:00 12/30/23 04:00 12/30/23 04:00 12/30/23 03:50 12/30/23 03:50 12/30/23 03:47 45 12/30/23 03:00 12/30/23 02:00 12/30/23 01:00 12/30/23 00:35 45 12/30/23 00:10 12/30/23 00:00 12/30/23 00:00 12/29/23 23:03 12/29/23 23:03 12/29/23 23:00 12/29/23 21:46 55 12/29/23 21:36 55 12/29/23 21:00 12/29/23 20:00 12/29/23 20:00 12/29/23 19:10 12/29/23 19:10 12/29/23 18:46 8 12/29/23 16:42 12/29/23 15:09 12/29/23 15:00 12/29/23 13:00 12/29/23 11:00 8 12/29/23 09:00 Intake and Output 12/29/23 12/30/23 12/30/23 23:59 07:59 15:59 Intake Total 240 / 2357 679.75 / 679.75 Output Total 875 / 3875 1400 / 1400 Balance -635 / -1518 -720.25 / -720.25 Intake: Intake, Oral Amount 240 / 1290 240 / 240 Intake, Total IV Amount 439.75 / 439.75 Metronidaz/Sod Chl 500 mg In 100 / 100 100 ml @ 100 mls/hr IV Q8H [facility] Rx#:[id number] Vancomycin HCl 2,000 mg In 0.9 250 / 250 % Sodium Chloride 250 ml @ 125 mls/hr IV Q12H [facility] Rx#:[id number] Output: Output, Urine Amount 550 / 3350 1400 / 1400 Output, Urine Amount (Catheter) 325 / 325 Kumar 325 / 325 Other: Number of Unmeasured Voids 0 Number of Bowel Movements 1 Weight 173.9 kg Patient Weight 12/30/23 23:59 Weight 173.9 kg Laboratory Results - last 24 hr 12/29/23 06:33: Total Counted 100, Neutrophils % (Manual) 85 H, Lymphocytes % (Manual) 12, Monocytes % (Manual) 3, Platelet Estimate Normal, RBC Morphology Normal 12/29/23 10:31: POC Glucose 124 H 12/29/23 12:00: Vancomycin Trough 16.7 H 12/29/23 16:06: POC Glucose 107 12/29/23 17:00: Sodium 138, Potassium 4.0, Chloride 89 L, Carbon Dioxide 46 H*, Anion Gap 7.0, BUN 25 H, Creatinine 1.00 D, Estimated Creat Clear 51, Estimated GFR 59, Est GFR ( Amer) 71 D, Glucose 121 H, Calcium 7.9 L, Magnesium 2.2 D, Vancomycin Peak 35.1 12/29/23 20:11: POC Glucose 115 H 12/29/23 20:15: Specimen Source R radial, O2 % 10l, ABG pH 7.31 L, ABG pCO2 95.7 H, ABG pO2 77.4 L, ABG HCO3 46.7 H, ABG Total CO2 49.6 H, ABG O2 Saturation 95, ABG Base Excess 20.3 H, Vaughn Test Acceptable, Tidal Volume on home bipap 12/30/23 00:00: Specimen Source Left radial, O2 % 45%, ABG pH 7.26 L, ABG pCO2 102.4 H, ABG pO2 71.5 L, ABG HCO3 45.2 H, ABG Total CO2 48.4 H, ABG O2 Saturation 93, ABG Base Excess 18.2 H, Vaughn Test Acceptable, Vent Rate 20, Tidal Volume 16/8 12/30/23 03:00: Specimen Source Left radial, O2 % 45%, ABG pH 7.34 L, ABG pCO2 78.6 H, ABG pO2 59.3 L, ABG HCO3 41.5 H, ABG Total CO2 44.0 H, ABG O2 Saturation 90, ABG Base Excess 15.8 H, Vaughn Test Acceptable, Vent Rate 20, Tidal Volume 22/8 12/30/23 05:44: POC Glucose 91 12/30/23 06:35: WBC 7.0, RBC 4.13 L, Hgb 11.8 L, Hct 37.7, MCV 91.2, MCH 28.4, MCHC 31.2 L, RDW 17.1, Plt Count 189, MPV 7.8, Neut % (Auto) 78.0, Lymph % (Auto) 14.4, [place] % (Auto) 6.5, Eos % (Auto) 0.6, Baso % (Auto) 0.5, Neut # (Auto) 5.4, Lymph # (Auto) 1.0, [place] # (Auto) 0.5, Eos # (Auto) 0.0, Baso # (Auto) 0.0, Sodium 138, Potassium 3.6, Chloride 89 L, Carbon Dioxide 47 H*, Anion Gap 5.6, BUN 23 H, Creatinine 1.10 H, Estimated Creat Clear 47, Estimated GFR 53 L, Est GFR ( Amer) 64, Glucose 90 D, Calcium 7.4 L, Magnesium 2.0, Total Bilirubin 0.2, AST 20, ALT 14, Alkaline Phosphatase 66, Total Protein 6.3, Albumin 3.4 L D, Globulin 2.9, Albumin/Globulin Ratio 1.2 12/30/23 06:45: Specimen Source Right radial, O2 % Bipap 22/8 45%, ABG pH 7.35, ABG pCO2 91.4 H, ABG pO2 60.2 L, ABG HCO3 49.7 H, ABG Total CO2 52.5 H, ABG O2 Saturation 91, ABG Base Excess 24.1 H, Vaughn Test Acceptable, Vent Rate 20 I & O for Labs for Last 24 Hours: Intake & Output 12/27/23 12/28/23 12/29/23 12/30/23 23:59 23:59 23:59 23:59 Intake Total 1460 / 1702 1767 / 2357 679.75 / 679.75 Output Total 8950 / 9550 2475 / 3875 1400 / 1400 Balance -7490 / -7848 -708 / -1518 -720.25 / -720.25 Weight 183.251 kg 187.4 kg 185 kg 173.9 kg Microbiology Reports for the Last 24 Hours: Microbiology 12/28/23 00:05 Blood Blood Culture - Preliminary NO GROWTH AFTER 48 HOURS 12/27/23 23:50 Blood Blood Culture - Preliminary NO GROWTH AFTER 48 HOURS Constitutional: Present no acute distress, morbidly obese, chronically ill appearing and cooperative Head: Present atraumatic and normocephalic ENT: Present normal exam Comment:: Cushingoid face Comment:: Prominent neck, tracheostomy in place. No significant drainage or leakage around trach. Respiratory: Present rhonchi, distant breath sounds and diminished air movement; Absent wheezes or crackles Cardiac: Present Reg Rate and Rhythm GI: Present soft, tenderness (Intervally improved, minimal today) and normal bowel sounds; Absent distention Comments:: Improving erythema of abdomen, minimal redness, significant improvement from yesterday. Still covers approximately about half of abdominal wall/pannus Extremities: Present normal inspection, full ROM and edema (2+ in lower extremities to knees) Skin: Present intact, erythema and wounds Neuro: Present Grossly Intact, alert, awake, oriented x 3 and moves all extremities Assessment and Plan *Assessment and plan (1) Acute and chronic respiratory failure with hypercapnia: Problem Comment: This patient is following with pulmonary. Additionally she has CPAP and O2 at bedtime. Status: Acute Category: Medical Code(s): J96.22 - Acute and chronic respiratory failure with hypercapnia (2) Abdominal wall cellulitis: Status: Acute Category: Medical Code(s): L03.311 - Cellulitis of abdominal wall (3) Right leg swelling: Status: Acute Category: Medical Code(s): M79.89 - Other specified soft tissue disorders (4) (HFpEF) heart failure with preserved ejection fraction: Status: Acute Category: Medical Code(s): I50.30 - Unspecified diastolic (congestive) heart failure (5) Acute and chronic respiratory failure: Status: Acute Qualifiers: Respiratory failure complication: hypercapnia Qualified Code(s): J96.22 - Acute and chronic respiratory failure with hypercapnia Category: Medical Code(s): J96.20 - Acute and chronic respiratory failure, unspecified whether with hypoxia or hypercapnia (6) Edema, peripheral: Status: Resolved Category: Medical Code(s): R60.9 - Edema, unspecified (7) Tracheostomy in place: Status: Acute Category: Medical Code(s): Z93.0 - Tracheostomy status (8) Obesity hypoventilation syndrome: Status: Chronic Category: Medical Code(s): E66.2 - Morbid (severe) obesity with alveolar hypoventilation (9) Headache: Status: Resolved Qualifiers: Headache chronicity pattern: chronic headache Headache type: unspecified Intractability: not intractable Qualified Code(s): R51.9 - Headache, unspecified; G89.29 - Other chronic pain Category: Medical Code(s): R51.9 - Headache, unspecified (10) COPD (chronic obstructive pulmonary disease): Status: Acute Qualifiers: COPD type: COPD with acute exacerbation Qualified Code(s): J44.1 - Chronic obstructive pulmonary disease with (acute) exacerbation Category: Medical Code(s): J44.9 - Chronic obstructive pulmonary disease, unspecified (11) Diastolic congestive heart failure: Status: Acute Qualifiers: Heart failure chronicity: chronic Qualified Code(s): I50.32 - Chronic diastolic (congestive) heart failure Category: Medical Code(s): I50.30 - Unspecified diastolic (congestive) heart failure (12) Uses bilevel positive airway pressure (BPAP) ventilation at home: Status: Chronic Category: Medical Code(s): Z99.89 - Dependence on other enabling machines and devices (13) MDD (major depressive disorder), recurrent episode: Status: Acute Qualifiers: Major depression episode severity: severe Psychotic features: with psychotic features Qualified Code(s): F33.3 - Major depressive disorder, recurrent, severe with psychotic symptoms Category: Medical Code(s): F33.9 - Major depressive disorder, recurrent, unspecified (14) Diabetes mellitus, type 2: Status: Acute Qualifiers: Diabetes mellitus complication detail: with unspecified neuropathy Diabetes mellitus complication status: with neurologic complications 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 insulin use: without skilled nursing use Qualified Code(s): E11.40 - Type 2 diabetes mellitus with diabetic neuropathy, unspecified Category: Medical Code(s): E11.9 - Type 2 diabetes mellitus without complications (15) Obesity, morbid: Status: Acute Category: Medical Code(s): E66.01 - Morbid (severe) obesity due to excess calories (16) History of smoking 30 or more pack years: Status: Chronic Category: Social Hx Code(s): Z87.891 - Personal history of nicotine dependence Plan Morbidly obese 47-year-old female with a PMHx of chronic hypoventilation syndrome, respiratory failure post COVID, trach dependance, on home oxygen 3L, MDD, migraine, hypothyroidism, anxiety disorder, diastolic heart failure, normal EF, chronic bilateral lymphedema and a former smoker. came to ED c/o wall abdominal pain and redness. Lab was obtained. Grossly unremarkable. ABG was showing acute on chronic hypoxic and hypercarbic respiratory failure with mild respiratory acidosis. findings discussed with the ER doctor. Agreed for admission for further treatment and management. Concern for panniculitis as well as component of volume overload given the significant edema and pitting of her abdominal wall. Aggressively diuresing, -8.5 L in the past 24 hours. Seeing some improvement in redness and edema. Will continue diuresis. Continues to require inpatient management. High risk for readmission given her comorbidities. Problems addressed as follows: Acute on chronic hypercapnic respiratory failure Tracheostomy dependance. obesity hypoventilation syndrome respiratory failure s/p COVID -Continue trach care per nursing; continue supplemental oxygen through noninvasive respiratory device, goal sats greater 90% -Chronic respiratory failure on CPAP at home through tracheostomy. Became more confused overnight. CO2 elevated above 100 on ABG. Respiratory and pulmonology consulted to assist with care. Transition to BiPAP -Blood gas this morning showing improvement pH 7.34, pCO2 91, pO2 70. Mentation improving. -Continue BiPAP while asleep and at night. Will take off for 2 hours for dinner this evening -Sputum culture pending -Continue on antibiotics for panniculitis below, broadened with addition of metronidazole Cellulitis/panniculitis of the abdominal wall. failed outpatient treatment Right leg chronic edema Acute on chronic hypercapnic respiratory failure, likely secondary to acute on chronic heart failure with preserved ejection fraction and Obesity hypoventilation syndrome Continues to require inpatient management. Responding to diuresis. -10 L since admission. Continue Bumex drip today, will discontinue this afternoon transition to 2 mg p.o. twice daily starting tomorrow morning Replacing electrolytes as needed, magnesium 2, potassium 3.6. On oral potassium. Kumar in place due to profound diuresis Daily weight. Strict I/Os. Continue vancomycin and ceftriaxone 2 g once daily ceftriaxone. Seeing improvement in redness. DuoNeb every 6h for shortness of breath Can continue home spironolactone 50 mg daily Repeat BMP this afternoon at 5. Ordered CBC, CMP, magnesium for the morning. Close monitoring of electrolytes and kidney function with aggressive diuresis Initiated on acetazolamide due to metabolic alkalosis. 250 mg twice daily -Headache/history of migraines: Ubrelvy 100 ordered as needed daily Tylenol and morphine as needed for pain management. -MDD with anxierty: resume diazepam 2.5 mg 3 times a day as needed, trazodone 100 mg nightly Hypothyroid: Can continue levo rocs and 25 mcg daily Prediabetes: last a1c 6.2, monitor glucose before meal, sliding scale insulin as needed Morbidly obese. Complicates all aspects of her care. High risk for readmission. Currently applied for Medicaid waiver for help at home. No interest in going to rehab. Does not qualify for home health due to her insurance. Would benefit from initiating GLP-1 agonist for her obesity. Drastically needs weight loss as it complicates all of her underlying health conditions. lovenox for DVT prophylaxis Protonix for GI bleeding prophylaxis. DNR
[2023-12-30] MEDS: UBROGEPANT 50MG TABLET 50 MG PO (10:03)
[2023-12-30 10:27] LABS: ABG HCO3 47.8 mmhg (22.0-26.0); ABG Oxygen Saturation 93 % (90-100); ABG PH 7.34 mmol/L (7.35-7.45); ABG PO2 70.3 mmhg (80-100); ABG TCO2 50.6 mmhg (23-27)
[2023-12-30 10:29] LABS: Allen's Test Acceptable; Oxygen 60% TC %; Source Right Radial
[2023-12-30 10:31] LABS: ABG PCO2 91.3 mmhg (35.0-45.0)
[2023-12-30] MEDS: CEFTRIAXONE SODIUM 2 GM in 0.9 % SODIUM CHLORIDE 100 ML IV (11:03)
[2023-12-30 11:52] LABS: POC Glucose,Bedside 118 (70-110)
[2023-12-30] MEDS: OXYCODONE 10MG W/APAP 325MG TABLET 1 EACH PO (15:29)
[2023-12-30 17:01] LABS: POC Glucose,Bedside 108 (70-110)
[2023-12-30 17:34] LABS: Chloride 89 mmol/L (98-107); Potassium 3.8 mmoL/L (3.5-5.1); Sodium 137 mmol/L (136-145)
[2023-12-30 17:37] LABS: Blood Urea Nitrogen 22 mg/dl (7-17); Creatinine Clearance Estimated 43 mL/min (50-200); Estimated Glomerular Filt Rate 48 ml/min (>60); GFR (African American) 58 ML/MIN (>60)
[2023-12-30 17:38] LABS: Calcium 7.9 mg/dl (8.4-10.2); Glucose 110 mg/dl (74-100)
[2023-12-30 17:45] LABS: Anion Gap 10.8 mEq/L (5-15); Carbon Dioxide 41 mmol/L (22.0-30.0)
--- NOTE | 2023-12-30 19:29 | PC.NURSE ---
VS stable, patient able to wear bipap during day. Patient able to eat dinner sitting on side of bed and agreeable to wear bipap tonight while sleeping. Bumex drip in place, patient diuresed over 2L. IV antibiotics given.
[2023-12-30] MEDS: TRAZODONE 50MG TABLET 100 MG PO (21:42)
[2023-12-30] MEDS: PANTOPRAZOLE 40MG TABLET 40 MG PO (21:42)
[2023-12-31] VITALS (24 sets, daily range): BP systolic 91–135; BP diastolic 46–92; PULSE 65–97; RESP 13–24; TEMP 36.7–37; O2SAT 92–99; BMI 76.4
[2023-12-31] MEDS: VANCOMYCIN HCL 2,000 MG in 0.9 % SODIUM CHLORIDE 250 ML 125 MG IV ×2 (00:35→13:59)
[2023-12-31] MEDS: IPRATROPIUM/ALBUTEROL 3 ML NEB IH ×6 (01:41→21:52)
[2023-12-31] MEDS: OXYCODONE 10MG W/APAP 325MG TABLET 1 EACH PO ×3 (02:50→20:11)
[2023-12-31] MEDS: METRONIDAZ/SOD CHL 500 MG/100 ML PIGGYBACK 100 MG IV (06:06)
[2023-12-31] MEDS: LEVOTHYROXINE 25MCG (0.025MG) TAB 25 MCG PO (06:06)
[2023-12-31] MEDS: FLUTICASONE/UMECLIDIN/VILANTER 100/62.5/25MCG INHALER 1 PUFF IH (06:15)
[2023-12-31] MEDS: BUDESONIDE 0.5MG/2ML NEB 0.5 MG IH ×2 (06:15→18:16)
[2023-12-31 06:52] LABS: Basophils # 0.1 K/mm3 (0-0.2); Eosinophils # 0.1 K/mm3 (0.0-0.4); Eosinophils % 0.9 % (0.1-12.0); Hematocrit 38.3 % (37.0-47.0); Lymphocytes # 0.9 K/mm3 (0.7-4.5); Lymphocytes % 12.2 % (10-50); Mean Corpuscular HGB Conc 31.3 g/dL (31.8-35.4); Mean Corpuscular Hemoglobin 28.7 pg (27.0-31.2); Mean Corpuscular Volume 91.5 fl (81-99); Mean Platelet Volume 8.5 fl (7.4-10.4); Monocytes # 0.5 K/mm3 (0.1-1.0); Monocytes % 6.9 % (1.7-9.3); Neutrophils # 5.6 K/mm3 (1.8-7.8); Neutrophils % 79.1 % (37.0-80.0); Platelet Count 197 K/mm3 (142-424); Red Blood Count 4.19 M/mm3 (4.20-5.40); Red Cell Distribution Width 17.2 % (11.5-17.5); White Blood Count 7.1 K/mm3 (4.8-10.8)
[2023-12-31 06:55] LABS: POC Glucose,Bedside 134 (70-110)
[2023-12-31 06:55] LABS: POC Glucose,Bedside 126 (70-110)
[2023-12-31 07:16] LABS: Alanine Aminotransferase 16 U/L (12-78); Albumin Level 3.6 g/dl (3.5-5.0); Albumin/Globulin Ratio 1.1 (1.1-1.8); Alkaline Phosphatase 62 U/L (38-126); Aspartate Amino Transferase 21 U/L (14-36); Bilirubin,Total 0.3 mg/dl (0.2-1.3); Blood Urea Nitrogen 26 mg/dl (7-17); Chloride 91 mmol/L (98-107); Creatinine Clearance Estimated 40 mL/min (50-200); Estimated Glomerular Filt Rate 44 ml/min (>60); GFR (African American) 53 ML/MIN (>60); Globulin 3.2 g/dL (1.3-3.2); Glucose 122 mg/dl (74-100); Potassium 3.5 mmoL/L (3.5-5.1); Sodium 139 mmol/L (136-145); Total Protein,Serum 6.8 g/dl (6.3-8.2)
[2023-12-31 07:18] LABS: Anion Gap 11.5 mEq/L (5-15); Carbon Dioxide > 40 mmol/L (22.0-30.0)
--- NOTE | 2023-12-31 08:13 | EXP.PHA.PN ---
Subjective *Date: 12/31/23 *Time: 08:13 Medical Exam Vital signs and Labs for Last 24 Hours: Vital Signs Temp Pulse Pulse Resp BP Pulse Ox O2 Del Method 12/31/23 08:00 98.6 F 12/31/23 06:40 Trach Mask 12/31/23 06:16 97 H 12/31/23 06:16 91 H 12/31/23 06:16 92 L Trach Collar/Tube 12/31/23 06:00 65 20 135/92 H 94 L Trach Mask 12/31/23 05:30 98.1 F 12/31/23 05:00 Trach Mask 12/31/23 04:00 90 12/31/23 04:00 84 16 103/58 L 94 L Trach Mask 12/31/23 04:00 Trach Collar/Tube 12/31/23 03:00 BiPAP 12/31/23 02:00 83 22 98/60 L 94 L BiPAP 12/31/23 01:57 12/31/23 01:57 74 12/31/23 01:56 70 12/31/23 01:03 98.2 F 12/31/23 01:00 BiPAP 12/31/23 00:00 80 12/31/23 00:00 79 20 122/72 95 BiPAP 12/30/23 23:00 BiPAP 12/30/23 22:33 12/30/23 22:33 77 12/30/23 22:33 73 12/30/23 22:00 85 20 125/67 90 L Trach Collar/Tube 12/30/23 21:00 Trach Collar/Tube 12/30/23 20:00 Trach Collar/Tube 12/30/23 20:00 87 17 112/65 93 L Trach Collar/Tube 12/30/23 20:00 80 12/30/23 20:00 98.0 F 12/30/23 19:02 78 12/30/23 19:02 78 12/30/23 19:00 Trach Collar/Tube 12/30/23 18:00 98.4 F 12/30/23 17:00 Trach Collar/Tube 12/30/23 16:00 98.0 F 12/30/23 16:00 80 12/30/23 15:59 BiPAP 12/30/23 15:00 73 24 107/66 L 92 L BiPAP 12/30/23 15:00 BiPAP 12/30/23 14:12 81 12/30/23 14:12 76 12/30/23 14:12 95 BiPAP 12/30/23 14:12 12/30/23 14:00 77 24 84/53 L 92 L BiPAP 12/30/23 13:00 Room Air 12/30/23 12:00 76 24 97/56 L 91 L BiPAP 12/30/23 12:00 75 12/30/23 11:05 BiPAP 12/30/23 10:20 81 12/30/23 10:20 83 12/30/23 10:20 92 L Trach Collar/Tube 12/30/23 10:20 12/30/23 10:00 82 22 107/59 L 92 L 12/30/23 09:02 Trach Collar/Tube O2 Flow Rate FiO2 12/31/23 08:00 12/31/23 06:40 12/31/23 06:16 12/31/23 06:16 12/31/23 06:16 10 60 12/31/23 06:00 8 12/31/23 05:30 12/31/23 05:00 8 12/31/23 04:00 12/31/23 04:00 8 12/31/23 04:00 8 12/31/23 03:00 12/31/23 02:00 12/31/23 01:57 45 12/31/23 01:57 12/31/23 01:56 12/31/23 01:03 12/31/23 01:00 12/31/23 00:00 12/31/23 00:00 12/30/23 23:00 12/30/23 22:33 45 12/30/23 22:33 12/30/23 22:33 12/30/23 22:00 8 12/30/23 21:00 8 12/30/23 20:00 8 12/30/23 20:00 8 12/30/23 20:00 12/30/23 20:00 12/30/23 19:02 12/30/23 19:02 12/30/23 19:00 8 12/30/23 18:00 12/30/23 17:00 8 12/30/23 16:00 12/30/23 16:00 12/30/23 15:59 12/30/23 15:00 12/30/23 15:00 12/30/23 14:12 12/30/23 14:12 12/30/23 14:12 45 12/30/23 14:12 45 12/30/23 14:00 12/30/23 13:00 12/30/23 12:00 12/30/23 12:00 12/30/23 11:05 12/30/23 10:20 12/30/23 10:20 12/30/23 10:20 60 12/30/23 10:20 45 12/30/23 10:00 12/30/23 09:02 8 Intake and Output 12/30/23 12/31/23 12/31/23 23:59 07:59 15:59 Intake Total 1170 / 2779.75 590 / 590 Output Total 1300 / 5725 1999 Balance -130 / -2945.25 -1410 / -1410 Intake: Intake, Oral Amount 720 / 1440 240 / 240 Intake, Total IV Amount 450 / 1250 350 / 350 Ceftriaxone Sodium 2 gm In 0.9 100 / 100 % Sodium Chloride 100 ml @ 200 mls/hr IV Q24H [facility] Rx#:[id number] Metronidaz/Sod Chl 500 mg In 100 / 400 100 / 100 100 ml @ 100 mls/hr IV Q8H [facility] Rx#:[id number] Vancomycin HCl 2,000 mg In 0.9 250 / 750 250 / 250 % Sodium Chloride 250 ml @ 125 mls/hr IV Q12H [facility] Rx#:[id number] Output: Output, Urine Amount 1300 / 4525 1999 Other: Number of Unmeasured Voids 0 0 Weight 183.6 kg Patient Weight 12/31/23 23:59 Weight 183.6 kg Laboratory Results - last 24 hr 12/30/23 10:17: Specimen Source Right radial, O2 % 60% tc, ABG pH 7.34 L, ABG pCO2 91.3 H, ABG pO2 70.3 L, ABG HCO3 47.8 H, ABG Total CO2 50.6 H, ABG O2 Saturation 93, ABG Base Excess 22.0 H, Vaughn Test Acceptable 12/30/23 11:45: POC Glucose 118 H 12/30/23 16:54: POC Glucose 108 12/30/23 17:10: Sodium 137, Potassium 3.8, Chloride 89 L, Carbon Dioxide 41 H*, Anion Gap 10.8, BUN 22 H, Creatinine 1.20 H, Estimated Creat Clear 43, Estimated GFR 48 L, Est GFR ( Amer) 58 L, Glucose 110 H D, Calcium 7.9 L 12/30/23 20:42: POC Glucose 126 H 12/31/23 06:15: POC Glucose 134 H 12/31/23 06:35: WBC 7.1, RBC 4.19 L, Hgb 12.0 L, Hct 38.3, MCV 91.5, MCH 28.7, MCHC 31.3 L, RDW 17.2, Plt Count 197, MPV 8.5, Neut % (Auto) 79.1, Lymph % (Auto) 12.2, Randall % (Auto) 6.9, Eos % (Auto) 0.9, Baso % (Auto) 1.0, Neut # (Auto) 5.6, Lymph # (Auto) 0.9, Randall # (Auto) 0.5, Eos # (Auto) 0.1, Baso # (Auto) 0.1, Sodium 139, Potassium 3.5, Chloride 91 L, Carbon Dioxide > 40 H*, Anion Gap 11.5, BUN 26 H, Creatinine 1.30 H, Estimated Creat Clear 40, Estimated GFR 44 L, Est GFR ( Amer) 53 L, Glucose 122 H, Calcium 8.0 L, Total Bilirubin 0.3, AST 21, ALT 16, Alkaline Phosphatase 62, Total Protein 6.8, Albumin 3.6, Globulin 3.2, Albumin/Globulin Ratio 1.1 I & O for Labs for Last 24 Hours: Intake & Output 12/28/23 12/29/23 12/30/23 12/31/23 23:59 23:59 23:59 23:59 Intake Total 1460 / 1702 1767 / 2357 2189.75 / 2779.75 590 / 590 Output Total 8950 / 9550 2475 / 3875 4425 / 5706 1999 Balance -7490 / -7848 -708 / -1518 -2235.25 / -2945.25 -1410 / -1410 Weight 187.4 kg 185 kg 173.9 kg 183.6 kg Microbiology Reports for the Last 24 Hours: Microbiology 12/30/23 00:02 Sputum - Endotracheal Tube Aspirate Gram Stain - Final The patient's infection will respond to the chosen ABx?: Yes Is the patient receiving the right drug, dose, and route?: Yes Could a more targeted ABx be ordered?: No (SPUTUM CX PENDING AND BLOOD CX NG)
[2023-12-31] MEDS: IRBESARTAN 75MG TABLET 75 MG PO (08:25)
[2023-12-31] MEDS: PROPRANOLOL 20MG TAB 10 MG PO ×2 (08:25→20:10)
[2023-12-31] MEDS: MAGNESIUM OXIDE 400MG TABLET 800 MG PO (08:25)
[2023-12-31] MEDS: CYCLOBENZAPRINE 10MG TABLET 5 MG PO ×3 (08:25→20:06)
[2023-12-31] MEDS: BUMETANIDE 1 MG TABLET 2 MG PO ×2 (08:25→15:43)
[2023-12-31] MEDS: SPIRONOLACTONE 25MG TABLET 50 MG PO (08:25)
[2023-12-31] MEDS: GABAPENTIN 600MG TABLET 600 MG PO ×3 (08:26→20:10)
[2023-12-31] MEDS: DULOXETINE 30MG CAPSULE.DR 90 MG PO (08:26)
[2023-12-31] MEDS: SENNOSIDES 8.6MG/DOCUSATE 50MG TABLET 1 TAB PO ×2 (08:27→20:11)
[2023-12-31] MEDS: lamoTRIgine 100MG TABLET 100 MG PO (08:27)
[2023-12-31] MEDS: ENOXAPARIN 60MG/0.6ML SYRINGE 60 MG SQ ×2 (08:27→20:10)
[2023-12-31] MEDS: acetaZOLAMIDE 250 MG TABLET PO ×2 (08:27→20:06)
[2023-12-31] MEDS: FLUTICASONE PROP 50MCG NASAL SPRAY 16GM 1 SPRAY NS (08:32)
[2023-12-31] MEDS: diazePAM 5MG TABLET 2.5 MG PO ×3 (08:32→20:09)
[2023-12-31] MEDS: CEFTRIAXONE SODIUM 2 GM in 0.9 % SODIUM CHLORIDE 100 ML IV (09:16)
--- NOTE | 2023-12-31 10:39 | EXP.ACUTE.PN ---
Subjective *Date: 12/31/23 *Time: 12:47 Interval history: Did well overnight. Tolerated BiPAP. No fever. White cell count stable today at 7.1. Tolerating p.o. intake. No nausea or vomiting. Medical Exam Vital signs and Labs for Last 24 Hours: Vital Signs Temp Pulse Pulse Pulse Resp BP BP 12/31/23 10:13 95 H 12/31/23 10:13 90 12/31/23 10:13 12/31/23 08:49 12/31/23 08:00 12/31/23 08:00 87 16 99/64 L 12/31/23 08:00 98.6 F 12/31/23 06:40 12/31/23 06:16 97 H 12/31/23 06:16 91 H 12/31/23 06:16 12/31/23 06:00 65 20 135/92 H 12/31/23 05:30 98.1 F 12/31/23 05:00 12/31/23 04:00 90 12/31/23 04:00 84 16 103/58 L 12/31/23 04:00 12/31/23 03:00 12/31/23 02:00 83 22 98/60 L 12/31/23 01:57 12/31/23 01:57 74 12/31/23 01:56 70 12/31/23 01:03 98.2 F 12/31/23 01:00 12/31/23 00:00 80 12/31/23 00:00 79 20 122/72 12/30/23 23:00 12/30/23 22:33 12/30/23 22:33 77 12/30/23 22:33 73 12/30/23 22:00 85 20 125/67 12/30/23 21:00 12/30/23 20:00 12/30/23 20:00 87 17 112/65 12/30/23 20:00 80 12/30/23 20:00 98.0 F 12/30/23 19:02 78 12/30/23 19:02 78 12/30/23 19:00 12/30/23 18:00 98.4 F 12/30/23 17:00 12/30/23 16:00 98.0 F 12/30/23 16:00 80 12/30/23 15:59 12/30/23 15:00 73 24 107/66 L 12/30/23 15:00 12/30/23 14:12 81 12/30/23 14:12 76 12/30/23 14:12 12/30/23 14:12 12/30/23 14:00 77 24 84/53 L 12/30/23 13:00 12/30/23 12:00 76 24 97/56 L 12/30/23 12:00 75 12/30/23 11:05 Pulse Ox O2 Del Method O2 Flow Rate FiO2 12/31/23 10:13 12/31/23 10:13 12/31/23 10:13 95 Trach Collar/Tube 10 60 12/31/23 08:49 Trach Collar/Tube 8 12/31/23 08:00 Trach Collar/Tube 8 12/31/23 08:00 99 Trach Collar/Tube 8 12/31/23 08:00 12/31/23 06:40 Trach Mask 12/31/23 06:16 12/31/23 06:16 12/31/23 06:16 92 L Trach Collar/Tube 10 60 12/31/23 06:00 94 L Trach Mask 8 12/31/23 05:30 12/31/23 05:00 Trach Mask 8 12/31/23 04:00 12/31/23 04:00 94 L Trach Mask 8 12/31/23 04:00 Trach Collar/Tube 8 12/31/23 03:00 BiPAP 12/31/23 02:00 94 L BiPAP 12/31/23 01:57 45 12/31/23 01:57 12/31/23 01:56 12/31/23 01:03 12/31/23 01:00 BiPAP 12/31/23 00:00 12/31/23 00:00 95 BiPAP 12/30/23 23:00 BiPAP 12/30/23 22:33 45 12/30/23 22:33 12/30/23 22:33 12/30/23 22:00 90 L Trach Collar/Tube 8 12/30/23 21:00 Trach Collar/Tube 8 12/30/23 20:00 Trach Collar/Tube 8 12/30/23 20:00 93 L Trach Collar/Tube 8 12/30/23 20:00 12/30/23 20:00 12/30/23 19:02 12/30/23 19:02 12/30/23 19:00 Trach Collar/Tube 8 12/30/23 18:00 12/30/23 17:00 Trach Collar/Tube 8 12/30/23 16:00 12/30/23 16:00 12/30/23 15:59 BiPAP 12/30/23 15:00 92 L BiPAP 12/30/23 15:00 BiPAP 12/30/23 14:12 12/30/23 14:12 12/30/23 14:12 95 BiPAP 45 12/30/23 14:12 45 12/30/23 14:00 92 L BiPAP 12/30/23 13:00 Room Air 12/30/23 12:00 91 L BiPAP 12/30/23 12:00 12/30/23 11:05 BiPAP Intake and Output 12/30/23 12/31/23 12/31/23 23:59 07:59 15:59 Intake Total 1170 / 2779.75 590 / 950 360 / 950 Output Total 1300 / 5725 1999 Balance -130 / -2945.25 -1410 / -1050 360 / -1050 Intake: Intake, Oral Amount 720 / 1440 240 / 600 360 / 600 Intake, Total IV Amount 450 / 1250 350 / 350 Ceftriaxone Sodium 2 gm In 0.9 100 / 100 % Sodium Chloride 100 ml @ 200 mls/hr IV Q24H [facility] Rx#:[id number] Metronidaz/Sod Chl 500 mg In 100 / 400 100 / 100 100 ml @ 100 mls/hr IV Q8H [facility] Rx#:[id number] Vancomycin HCl 2,000 mg In 0.9 250 / 750 250 / 250 % Sodium Chloride 250 ml @ 125 mls/hr IV Q12H [facility] Rx#:[id number] Output: Output, Urine Amount 1300 / 4525 1999 Other: Number of Unmeasured Voids 0 0 Weight 183.6 kg Patient Weight 12/31/23 23:59 Weight 183.6 kg Laboratory Results - last 24 hr 12/30/23 11:45: POC Glucose 118 H 12/30/23 16:54: POC Glucose 108 12/30/23 17:10: Sodium 137, Potassium 3.8, Chloride 89 L, Carbon Dioxide 41 H*, Anion Gap 10.8, BUN 22 H, Creatinine 1.20 H, Estimated Creat Clear 43, Estimated GFR 48 L, Est GFR ( Amer) 58 L, Glucose 110 H D, Calcium 7.9 L 12/30/23 20:42: POC Glucose 126 H 12/31/23 06:15: POC Glucose 134 H 12/31/23 06:35: WBC 7.1, RBC 4.19 L, Hgb 12.0 L, Hct 38.3, MCV 91.5, MCH 28.7, MCHC 31.3 L, RDW 17.2, Plt Count 197, MPV 8.5, Neut % (Auto) 79.1, Lymph % (Auto) 12.2, Mclean % (Auto) 6.9, Eos % (Auto) 0.9, Baso % (Auto) 1.0, Neut # (Auto) 5.6, Lymph # (Auto) 0.9, Mclean # (Auto) 0.5, Eos # (Auto) 0.1, Baso # (Auto) 0.1, Sodium 139, Potassium 3.5, Chloride 91 L, Carbon Dioxide > 40 H*, Anion Gap 11.5, BUN 26 H, Creatinine 1.30 H, Estimated Creat Clear 40, Estimated GFR 44 L, Est GFR ( Amer) 53 L, Glucose 122 H, Calcium 8.0 L, Total Bilirubin 0.3, AST 21, ALT 16, Alkaline Phosphatase 62, Total Protein 6.8, Albumin 3.6, Globulin 3.2, Albumin/Globulin Ratio 1.1 I & O for Labs for Last 24 Hours: Intake & Output 12/28/23 12/29/23 12/30/23 12/31/23 23:59 23:59 23:59 23:59 Intake Total 1460 / 1702 1767 / 2357 2189.75 / 2779.75 950 / 950 Output Total 8950 / 9550 2475 / 3875 4425 / 5725 1999 Balance -7490 / -7848 -708 / -1518 -2235.25 / -2945.25 -1050 / -1050 Weight 187.4 kg 185 kg 173.9 kg 183.6 kg Microbiology Reports for the Last 24 Hours: Microbiology 12/30/23 00:02 Sputum - Endotracheal Tube Aspirate Gram Stain - Final Constitutional: Present no acute distress, morbidly obese, chronically ill appearing and cooperative Head: Present atraumatic and normocephalic ENT: Present normal exam Comment:: Cushingoid face Comment:: Prominent neck, tracheostomy in place. No significant drainage or leakage around trach. Respiratory: Present rhonchi, distant breath sounds and diminished air movement; Absent wheezes or crackles Cardiac: Present Reg Rate and Rhythm GI: Present soft, tenderness (Intervally improved, minimal today) and normal bowel sounds; Absent distention Comments:: Improving erythema of abdomen, minimal redness, significant improvement from yesterday. Still covers approximately about half of abdominal wall/pannus Extremities: Present normal inspection, full ROM and edema (2+ in lower extremities to knees) Skin: Present intact, erythema and wounds Neuro: Present Grossly Intact, alert, awake, oriented x 3 and moves all extremities Assessment and Plan *Assessment and plan (1) Acute and chronic respiratory failure with hypercapnia: Problem Comment: This patient is following with pulmonary. Additionally she has CPAP and O2 at bedtime. Status: Acute Category: Medical Code(s): J96.22 - Acute and chronic respiratory failure with hypercapnia (2) Abdominal wall cellulitis: Status: Acute Category: Medical Code(s): L03.311 - Cellulitis of abdominal wall (3) Right leg swelling: Status: Acute Category: Medical Code(s): M79.89 - Other specified soft tissue disorders (4) (HFpEF) heart failure with preserved ejection fraction: Status: Acute Category: Medical Code(s): I50.30 - Unspecified diastolic (congestive) heart failure (5) Acute and chronic respiratory failure: Status: Acute Qualifiers: Respiratory failure complication: hypercapnia Qualified Code(s): J96.22 - Acute and chronic respiratory failure with hypercapnia Category: Medical Code(s): J96.20 - Acute and chronic respiratory failure, unspecified whether with hypoxia or hypercapnia (6) Edema, peripheral: Status: Resolved Category: Medical Code(s): R60.9 - Edema, unspecified (7) Tracheostomy in place: Status: Acute Category: Medical Code(s): Z93.0 - Tracheostomy status (8) Obesity hypoventilation syndrome: Status: Chronic Category: Medical Code(s): E66.2 - Morbid (severe) obesity with alveolar hypoventilation (9) Headache: Status: Resolved Qualifiers: Headache chronicity pattern: chronic headache Headache type: unspecified Intractability: not intractable Qualified Code(s): R51.9 - Headache, unspecified; G89.29 - Other chronic pain Category: Medical Code(s): R51.9 - Headache, unspecified (10) COPD (chronic obstructive pulmonary disease): Status: Acute Qualifiers: COPD type: COPD with acute exacerbation Qualified Code(s): J44.1 - Chronic obstructive pulmonary disease with (acute) exacerbation Category: Medical Code(s): J44.9 - Chronic obstructive pulmonary disease, unspecified (11) Diastolic congestive heart failure: Status: Acute Qualifiers: Heart failure chronicity: chronic Qualified Code(s): I50.32 - Chronic diastolic (congestive) heart failure Category: Medical Code(s): I50.30 - Unspecified diastolic (congestive) heart failure (12) Uses bilevel positive airway pressure (BPAP) ventilation at home: Status: Chronic Category: Medical Code(s): Z99.89 - Dependence on other enabling machines and devices (13) MDD (major depressive disorder), recurrent episode: Status: Acute Qualifiers: Major depression episode severity: severe Psychotic features: with psychotic features Qualified Code(s): F33.3 - Major depressive disorder, recurrent, severe with psychotic symptoms Category: Medical Code(s): F33.9 - Major depressive disorder, recurrent, unspecified (14) Diabetes mellitus, type 2: Status: Acute Qualifiers: Diabetes mellitus director long term care insulin use: without long-term use Diabetes mellitus complication status: with neurologic complications Diabetes mellitus complication detail: with unspecified neuropathy Qualified Code(s): E11.40 - Type 2 diabetes mellitus with diabetic neuropathy, unspecified Category: Medical Code(s): E11.9 - Type 2 diabetes mellitus without complications (15) Obesity, morbid: Status: Acute Category: Medical Code(s): E66.01 - Morbid (severe) obesity due to excess calories (16) History of smoking 30 or more pack years: Status: Chronic Category: Social Hx Code(s): Z87.891 - Personal history of nicotine dependence Plan Morbidly obese 47-year-old female with a PMHx of chronic hypoventilation syndrome, respiratory failure post COVID, trach dependance, on home oxygen 3L, MDD, migraine, hypothyroidism, anxiety disorder, diastolic heart failure, normal EF, chronic bilateral lymphedema and a former smoker. came to ED c/o wall abdominal pain and redness. Lab was obtained. Grossly unremarkable. ABG was showing acute on chronic hypoxic and hypercarbic respiratory failure with mild respiratory acidosis. findings discussed with the ER doctor. Agreed for admission for further treatment and management. Concern for panniculitis as well as component of volume overload given the significant edema and pitting of her abdominal wall. Aggressively diuresing. Seeing some improvement in redness and edema. Will continue diuresis. Continues to require inpatient management. High risk for readmission given her comorbidities. Problems addressed as follows: Acute on chronic hypercapnic respiratory failure Tracheostomy dependance. obesity hypoventilation syndrome respiratory failure s/p COVID -Continue trach care per nursing; continue supplemental oxygen through noninvasive respiratory device, goal sats greater 90% -Continue BiPAP, pulmonology consulted and assisting with management. Showing response. Alert and oriented to baseline today. - Sputum cultures pending -Continue on antibiotics for panniculitis below Cellulitis/panniculitis of the abdominal wall. failed outpatient treatment Right leg chronic edema Acute on chronic hypercapnic respiratory failure, likely secondary to acute on chronic heart failure with preserved ejection fraction and Obesity hypoventilation syndrome Continues to require inpatient management. Responding to diuresis. -11 L since admission. Discontinue Bumex drip, continue 2 mg p.o. twice daily Bumex BLANCO Kumar, initiate pure wick Potassium 3.5, on oral potassium Daily weight. Strict I/Os. Continue vancomycin and ceftriaxone 2 g once daily ceftriaxone. Seeing improvement in redness. DuoNeb every 6h for shortness of breath continue home spironolactone 50 mg daily White count normal at 7.1 CBC, CMP, magnesium ordered for the morning. Close monitoring of electrolytes and kidney function with aggressive diuresis Initiated on acetazolamide due to metabolic alkalosis. 250 mg twice daily -Slight bump in creatinine at 1.3, BUN 26. Chronic stable conditions:: Headache/history of migraines: Ubrelvy 100 ordered as needed daily, Tylenol and morphine as needed for pain management. Holding home sumatriptan MDD with anxierty: Continue diazepam 2.5 mg 3 times a day as needed, trazodone 100 mg nightly Hypothyroid: Continue levothyroxine 25 mcg daily Prediabetes: last a1c 6.2, monitor glucose before meal, sliding scale insulin as needed Morbidly obese. Complicates all aspects of her care. High risk for readmission. Currently applied for Medicaid waiver for help at home. No interest in going to rehab. Does not qualify for home health due to her insurance. Would benefit from initiating GLP-1 agonist for her obesity. Drastically needs weight loss as it complicates all of her underlying health conditions. lovenox for DVT prophylaxis Protonix for GI bleeding prophylaxis. DNR
[2023-12-31 11:11] LABS: POC Glucose,Bedside 105 (70-110)
--- NOTE | 2023-12-31 15:12 | PC.NURSE ---
Pt is alert and oriented x4. Lungs are clear but diminished. She's been on 8-10L (trach collar) with O2 sat measuring >92%. She's been NSR on tele. She was up to the chair this morning for approximately 3 hours and tolerated well. She is currently resting in bed with her eyes closed. Bed is locked and in the lowest position, call light within reach.
[2023-12-31] MEDS: PROMETHAZINE HCL 25MG/ML 1ML VIAL 12.5 MG IM (15:43)
[2023-12-31 16:15] LABS: POC Glucose,Bedside 107 (70-110)
--- NOTE | 2023-12-31 17:23 | PC.NURSE ---
Pt has ambulated x2 to BR with stand by assist. Pt has stated she doesn't feel good. She is currently sitting up in the chair eating dinner. Trach collar in place. O2 titrated. Call light within reach.
[2023-12-31 20:00] LABS: POC Glucose,Bedside 123 (70-110)
[2023-12-31] MEDS: PANTOPRAZOLE 40MG TABLET 40 MG PO (20:10)
[2023-12-31] MEDS: TRAZODONE 50MG TABLET 100 MG PO (20:11)
[2024-01-01] VITALS (12 sets, daily range): BP systolic 91–112; BP diastolic 50–71; PULSE 76–100; RESP 17–25; TEMP 36.6–37.1; O2SAT 93–98; BMI 78.5
[2024-01-01] MEDS: VANCOMYCIN HCL 2,000 MG in 0.9 % SODIUM CHLORIDE 250 ML 125 MG IV (00:40)
[2024-01-01 01:39] LABS: Vancomycin,Trough 23.6 ug/mL (5.0-10.0)
--- NOTE | 2024-01-01 02:05 | PC.NURSE ---
Received call from lab to report critical lab value of 23.6 on a Vancomycin through. Reported the finding to pharmacy. Spoke with Renan who instructed to stop current infusion.
[2024-01-01] MEDS: PHA TO NURSING INSTRUCTION 1 EACH NOTAPPLIC (02:14)
[2024-01-01] MEDS: IPRATROPIUM/ALBUTEROL 3 ML NEB IH ×3 (02:27→09:46)
[2024-01-01] MEDS: OXYCODONE 10MG W/APAP 325MG TABLET 1 EACH PO ×2 (03:28→12:48)
[2024-01-01] MEDS: ONDANSETRON 4MG/2ML VIAL 4 MG IV ×2 (04:07→16:48)
[2024-01-01 04:34] LABS: Basophils # 0.1 K/mm3 (0-0.2); Basophils % 0.7 % (0.1-2.0); Eosinophils # 0.1 K/mm3 (0.0-0.4); Eosinophils % 1.5 % (0.1-12.0); Hematocrit 37.8 % (37.0-47.0); Hemoglobin 11.7 g/dL (12.2-16.2); Lymphocytes # 0.9 K/mm3 (0.7-4.5); Lymphocytes % 12.3 % (10-50); Mean Corpuscular HGB Conc 30.9 g/dL (31.8-35.4); Mean Corpuscular Hemoglobin 28.1 pg (27.0-31.2); Mean Platelet Volume 9.3 fl (7.4-10.4); Monocytes # 0.4 K/mm3 (0.1-1.0); Monocytes % 5.4 % (1.7-9.3); Neutrophils # 5.6 K/mm3 (1.8-7.8); Neutrophils % 80.1 % (37.0-80.0); Platelet Count 175 K/mm3 (142-424); Red Blood Count 4.15 M/mm3 (4.20-5.40)
[2024-01-01 04:47] LABS: Alanine Aminotransferase 15 U/L (12-78); Albumin Level 3.4 g/dl (3.5-5.0); Albumin/Globulin Ratio 1.1 (1.1-1.8); Alkaline Phosphatase 59 U/L (38-126); Aspartate Amino Transferase 19 U/L (14-36); Bilirubin,Total 0.3 mg/dl (0.2-1.3); Blood Urea Nitrogen 25 mg/dl (7-17); Calcium 8.2 mg/dl (8.4-10.2); Chloride 96 mmol/L (98-107); Creatinine Clearance Estimated 47 mL/min (50-200); Estimated Glomerular Filt Rate 53 ml/min (>60); GFR (African American) 64 ML/MIN (>60); Glucose 120 mg/dl (74-100); Potassium 3.6 mmoL/L (3.5-5.1); Sodium 137 mmol/L (136-145); Total Protein,Serum 6.4 g/dl (6.3-8.2)
[2024-01-01 04:48] LABS: Magnesium 2.5 mg/dl (1.6-2.3)
[2024-01-01 04:52] LABS: Vancomycin,Peak 27.5 ug/ml (11-39)
[2024-01-01 04:54] LABS: Anion Gap 6.6 mEq/L (5-15); Carbon Dioxide 38 mmol/L (22.0-30.0)
[2024-01-01 05:05] LABS: POC Glucose,Bedside 132 (70-110)
[2024-01-01] MEDS: UBROGEPANT 50MG TABLET 50 MG PO (05:44)
--- NOTE | 2024-01-01 05:54 | PC.NURSE ---
Patient is alert and oriented x4. She was on Bi-pap during the night but was switched to 8L O2 via trach collar. O2 Sat has remained >90%. At one point in the shift pts BP was running low in 80's over 40's. It has since gone up and is currently 112/60. She did report leg pain and headache, and was treated per [facility]. She has ambulated a couple times to the bathroom with X2 assist. She is currently asleep, call light within reach.
[2024-01-01] MEDS: LEVOTHYROXINE 25MCG (0.025MG) TAB 25 MCG PO (06:13)
[2024-01-01] MEDS: FLUTICASONE/UMECLIDIN/VILANTER 100/62.5/25MCG INHALER 1 PUFF IH (06:22)
[2024-01-01] MEDS: BUDESONIDE 0.5MG/2ML NEB 0.5 MG IH (06:22)
--- NOTE | 2024-01-01 07:48 | EXP.PHA.CONS ---
Pharmacy Consult Date: 01/01/24 Time: 07:48 Referring provider: DR SAWANT Reason for Consult:: VANCOMYCIN TROUGH LEVEL OBTAINED Allergies Allergy/AdvReac Type Severity Reaction Status Date / Time doxycycline Allergy Severe Blister Verified 11/29/23 08:52 Sulfa (Sulfonamide AdvReac Intermediate Rash Verified 12/27/23 23:57 Antibiotics) amoxicillin AdvReac Verified 11/29/23 08:52 nitrofurantoin AdvReac Verified 11/29/23 08:52 [From Macrobid] Home Medications ?Medication ?Instructions ?Recorded ?Confirmed ?Type blood sugar diagnostic (OneTouch 01/01/23 12/28/23 History Verio test strips) [facility] 12/28/23 History Plus Lancet) ipratropium 0.5 mg-albuterol 3 mg 3 ml inhalation QID PRN shortness 02/09/23 12/28/23 Rx (2.5 mg base)/3 mL nebulization of breath or wheezing 90 days #270 soln mL sumatriptan succinate 100 mg tablet 100 mg PO NEEDED PRN Migraine 05/19/23 12/28/23 Rx Headache #10 tabs linaclotide 72 mcg capsule 72 mcg PO DAILY constipation #90 08/29/23 12/28/23 Rx (Linzess) caps duloxetine 30 mg capsule,delayed 90 mg (3 x 30 mg) PO DAILY Mood 60 09/11/23 12/28/23 Rx release days #180 caps fluticasone fur. 100 mcg-umeclid 1 inh inhalation DAILY 90 days #90 09/19/23 12/28/23 Rx 62.5 mcg-vilant 25 mcg ea inhalat.powder (Trelegy Ellipta) gabapentin 800 mg tablet 800 mg PO TID Neuropathy #90 tabs 11/09/23 12/28/23 Rx spironolactone 50 mg tablet 50 mg PO DAILY 90 days #90 tabs 11/09/23 12/28/23 Rx (Aldactone) acetylcysteine 100 mg/mL (10 %) 2 ml inhalation Q8H PRN cough #100 11/21/23 12/28/23 Rx solution mL losartan 25 mg tablet 25 mg PO DAILY #30 tabs 11/21/23 12/28/23 Rx magnesium oxide 400 mg (241.3 mg 800 mg (2 x 400 mg (241.3 mg 11/21/23 12/28/23 Rx magnesium) tablet magnesium)) PO DAILY #60 tabs propranolol 10 mg tablet 10 mg PO BID #60 tabs 11/21/23 12/28/23 Rx budesonide 0.5 mg/2 mL suspension 0.5 mg (2 mL) inhalation Q12H #120 11/22/23 12/28/23 Rx for nebulization mL formoterol fumarate 20 mcg/2 mL 2 ml inhalation BID 30 days #120 mL 11/22/23 12/28/23 Rx solution for nebulization (Perforomist) cyclobenzaprine 5 mg tablet 5 mg PO TID Muscle relaxer 90 days 11/24/23 12/28/23 Rx #270 tabs diazepam 5 mg tablet 2.5 mg (1/2 x 5 mg) PO TID 30 days 11/29/23 12/28/23 Rx #45 tabs bisacodyl 5 mg tablet,delayed 5 mg PO HS PRN constipation 15 11/30/23 12/28/23 Rx release (Dulcolax (bisacodyl)) days #15 tabs ondansetron 4 mg disintegrating 4 mg PO Q6H PRN nausea and 11/30/23 12/28/23 Rx tablet vomiting #30 tabs albuterol sulfate 90 mcg/actuation 1 puff inhalation Q6HP PRN 12/11/23 12/28/23 Rx aerosol inhaler Shortness Of Breath #8.5 grams acetylcysteine 600 mg capsule 600 mg PO DAILY PRN cough #30 caps 12/22/23 12/28/23 Rx fluticasone propionate 50 1 spray intranasal DAILY #16 grams 12/22/23 12/28/23 Rx mcg/actuation nasal spray,suspension (Flonase Allergy Relief) clindamycin HCl 300 mg capsule 300 mg PO Q8H 10 days #30 caps 12/27/23 12/28/23 Rx lamotrigine 100 mg tablet 100 mg PO DAILY 12/28/23 12/28/23 History levothyroxine 25 mcg tablet 25 mcg PO DAILY 12/28/23 12/28/23 History omeprazole 40 mg capsule,delayed 40 mg PO BID 12/28/23 12/28/23 History release oxycodone-acetaminophen 10 mg-325 1 tab PO QIDP PRN Moderate Pain 12/28/23 12/28/23 History mg tablet (Scale Score 5-6) promethazine 25 mg tablet 25 mg PO Q8HP PRN Nausea And 12/28/23 12/28/23 History Vomiting torsemide 100 mg tablet 100 mg PO DAILY Fluid 12/28/23 12/28/23 History trazodone 100 mg tablet 100 mg PO HS 12/28/23 12/28/23 History semaglutide 0.25 mg or 0.5 mg (2 0.25 mg (0.368 mL) SQ WEEKLY #3 mL 12/30/23 Rx mg/3 mL) subcutaneous pen injector (Ozempic) New Prescriptions to Start Prescriptions: semaglutide [Ozempic] Dean Sawant Height: 1.55 m Weight: 188.7 kg Laboratory Results:: Laboratory Results - last 24 hr 12/31/23 11:04: POC Glucose 105 12/31/23 15:29: POC Glucose 107 12/31/23 19:49: POC Glucose 123 H 01/01/24 00:05: Vancomycin Trough 23.6 H 01/01/24 04:12: POC Glucose 132 H 01/01/24 04:25: WBC 7.0, RBC 4.15 L, Hgb 11.7 L, Hct 37.8, MCV 91.0, MCH 28.1, MCHC 30.9 L, RDW 17.0, Plt Count 175, MPV 9.3, Neut % (Auto) 80.1 H, Lymph % (Auto) 12.3, Tama % (Auto) 5.4, Eos % (Auto) 1.5, Baso % (Auto) 0.7, Neut # (Auto) 5.6, Lymph # (Auto) 0.9, Tama # (Auto) 0.4, Eos # (Auto) 0.1, Baso # (Auto) 0.1, Sodium 137, Potassium 3.6, Chloride 96 L, Carbon Dioxide 38 H, Anion Gap 6.6, BUN 25 H, Creatinine 1.10 H, Estimated Creat Clear 47, Estimated GFR 53 L, Est GFR ( Amer) 64 D, Glucose 120 H, Calcium 8.2 L, Magnesium 2.5 H D, Total Bilirubin 0.3, AST 19, ALT 15, Alkaline Phosphatase 59, Total Protein 6.4, Albumin 3.4 L, Globulin 3.0, Albumin/Globulin Ratio 1.1, Vancomycin Peak 27.5 Medical History: Medical History (Updated 12/29/23 @ 11:43 by Dean Sawant MD) Palpitations Ear pain, right Acute and chronic respiratory failure with hypercapnia PTSD (post-traumatic stress disorder) Chest pain Generalized anxiety disorder Recurrent major depression resistant to treatment Sleep apnea History of ectopic History of hyperkalemia Diastolic congestive heart failure Paranoid schizophrenia Uses bilevel positive airway pressure (BPAP) ventilation at home History of sleep apnea History of asthma Cellulitis of right lower extremity Acute and chronic respiratory failure with hypercapnia Pneumonia Acute and chronic respiratory failure Right lower lobe pneumonia History of smoking 30 or more pack years Obesity hypoventilation syndrome Asthma Chronic respiratory failure with hypercapnia Severe sepsis COVID-19 Acute and chronic respiratory failure Pneumonia Tracheostomy in place Edema Sinus tachycardia Dizziness Diastolic dysfunction Acute on chronic diastolic heart failure Respiratory failure with hypoxia and hypercapnia Congestive heart failure Acute on chronic diastolic heart failure Elevated d-dimer PAC (premature atrial contraction) Chest pain Dyspnea HTN (hypertension) COPD (chronic obstructive pulmonary disease) Tobacco abuse Abnormal stress test SOB (shortness of breath) Angina, class III Obesity Hypothyroidism (~11/21/17) Asthma Insomnia Depression Anxiety Neuropathy Assessment and Plan Assessment and plan all Dx Assessment and Plan for all problems:: Pharmacokinetic dosing service Weight: 188.7 Kilograms Vancomycin single level analysis: Current dose being given: 2000 mg Current dosing interval: 12 hrs Current infusion time (hrs): 2 Single level Trough Data: Trough level obtained: 23.6 mcg/ml Timing of trough - # of hrs before next dose: 0.5 Hrs Desired peak: 35 mcg/ml Desired trough: 12.5 mcg/ml Diagnosis: CELLULITIS Estimated PK Parameters: New rate constant (jayme): 0.043 hr-1 Half-life: 16.12 Hours Vd from levels: 132.09 Liters (0.7 L/kg) CLvanco=?? 5.680 L/hr Estimated New Dose and Interval Recommended dose: 3240.6 mg Recommended interval: 25.9 Hrs Recommendations: Give Vancomycin 2250 mg q 18 hrs, START 01/01/24 AT 18:00 Infuse over 2 hrs Expected Cpeak: 30.3 mcg/mL Expected Ctrough: 15.2 mcg/mL AUC 0-24 /JOAN Data: JOAN 0.5 mcg/mL:?? AUC/JOAN:? 1056.3 JOAN 1.0 mcg/mL:?? AUC/JOAN:? 528.2 Thank you for the consult
--- NOTE | 2024-01-01 07:56 | P.DS_ITS ---
General Admission date:: 12/28/23 Discharge date: 01/01/24 HPI HPI HPI: Morbidly obese 47-year-old female with a PMHx of chronic hypoventilation syndrome, respiratory failure post COVID, trach dependance, on home oxygen 3L, MDD, migraine, hypothyroidism, anxiety disorder, diastolic heart failure, normal EF, chronic bilateral lymphedema and a former smoker coming to ED fro evaluation of worsening abdominal wall redness and pain and worsening respiratory symptoms.. Her primary complaint is worsening abdominal wall redness and pain. She reports that it has been spreading. She also reports that her respiratory symptoms have not improved. She was seen here approximately a week ago and was diagnosed with pneumonia and abdominal wall cellulitis. She was encouraged to be admitted but she ultimately decided to leave against medical advice. Placed on Bactrim and Levaquin which she has been taking without improvement in symptoms. Admitted for further treatment. Hospital Course Hospital Course Hospital Course: Morbidly obese 47-year-old female with a PMHx of chronic hypoventilation syndrome, respiratory failure post COVID, trach dependance, on home oxygen 3L, MDD, migraine, hypothyroidism, anxiety disorder, diastolic heart failure, normal EF, chronic bilateral lymphedema and a former smoker. came to ED c/o wall abdominal pain and redness. Lab was obtained. Grossly unremarkable. ABG was showing acute on chronic hypoxic and hypercarbic respiratory failure with mild respiratory acidosis. findings discussed with the ER doctor. Agreed for admission for further treatment and management. Concern for panniculitis as well as component of volume overload given the significant edema and pitting of her abdominal wall. Treated with IV antibiotics. Diuresed during admission. Showed improvement. Pulmonology assisted with care due to hypercarbic respiratory failure. Adjustments made to her BiPAP. Stable to discharge home with close follow-up as an outpatient. Her mom came up from [place] to assist her and will be with her for at least a week. Problems addressed as follows: Acute on chronic hypercapnic respiratory failure Tracheostomy dependance. obesity hypoventilation syndrome respiratory failure s/p COVID -Trach care per nursing during admission. Patient however will pull her tracheostomy out on a regular basis and uses less than sterile technique to clean it. Counseled on appropriate care for tracheostomy. Had an episode of hypercarbia during admission. Was transitioned over to BiPAP. Respiratory and pulmonology consulted and assisted with care. Mentation improved. Adjustments were made to her noninvasive ventilation. Compliance report obtained by pulmonology of patient's [facility]. Reviewed and showed that she was only wearing 3.7 hours a night with average tidal volume of 410 and average respiratory rate of 16.7. Recommend increasing compliance and increasing settings as follows: Update settings to be at Tidal volume of 450, PEEP of 8, PS of 4/16 and backup rate of 12. Updated orders faxed to [facility]. Resume home breathing treatment regimen at discharge. Stressed the importance of wearing BiPAP anytime she is asleep or napping. Patient states understanding. Cellulitis/panniculitis of the abdominal wall. failed outpatient treatment Right leg chronic edema Acute on chronic hypercapnic respiratory failure, likely secondary to acute on chronic heart failure with preserved ejection fraction and Obesity hypoventilation syndrome Patient was initiated on IV antibiotics of vancomycin and ceftriaxone. Also aggressively diuresed due to component of edema and volume overload complicating her erythema and suspected chronic cellulitis/panniculitis. -11 L during admission after Bumex drip for 48 hours. Recommend continuing Bumex at an increased dosage. Overall did well. Electrolytes stable on day of discharge with potassium 3.6, magnesium 2.5. Tolerating p.o. intake. Abdomen improved, not tender on exam on day of discharge. Completed 5 days of antibiotics, no indication for further antibiotics. Continue medications per med rec with Bumex and spironolactone. Creatinine stable on day of discharge with BUN 25, creatinine 1.1. Overall doing well. White count remained normal during admission. No fevers. No overt signs of infection at this time. Stable to discharge home in baseline condition. Chronic stable conditions:: Headache/history of migraines: Continue home regimen as needed MDD with anxierty: Continue diazepam 2.5 mg 3 times a day as needed, trazodone 100 mg nightly Hypothyroid: Continue levothyroxine 25 mcg daily Diabetes: Had 2 fasting glucoses in the morning greater than 130. Diagnostic for diabetes. Initiated Ozempic 0.25 mg weekly. Will need to increase dose after 1 month. Prior Auth completed, medication provided at discharge. This should help with patient's diabetes as well as weight loss which should significantly help with her other underlying comorbidities and conditions. Encourage close follow-up with with PCP and adjustment as needed over the coming months. Morbidly obese. Complicates all aspects of her care. High risk for readmission. Currently applied for Medicaid waiver for help at home. No interest in going to rehab. Does not qualify for home health due to her insurance. Able to initiate GLP-1 agonist at discharge (Ozempic). Weight loss would benefit her numerous comorbidities. See recommendations as above. Total time spent on discharge 35 minutes in counseling, documentation, chart review, and direct care with patient. Exam Data for Last 24 hours Vital signs and Labs for Last 24 Hours: Temp Pulse Resp BP Pulse Ox O2 Del Method O2 Flow Rate 98.2 F 91 H 18 126/63 90 L Trach Mask 10 12/29/23 07:35 12/29/23 07:35 12/29/23 07:35 12/29/23 07:35 12/29/23 07:35 12/29/23 07:35 12/29/23 06:45 FiO2 40 12/28/23 18:30 Laboratory Results - last 24 hr 12/28/23 06:20: ESR 60 H 12/28/23 10:49: POC Glucose 130 H 12/28/23 16:23: POC Glucose 123 H 12/28/23 20:30: POC Glucose 149 H 12/29/23 06:32: POC Glucose 150 H 12/29/23 06:33: Sodium 141, Potassium 4.1, Chloride 93 L, Carbon Dioxide 42 H*, Anion Gap 10.1, BUN 23 H, Creatinine 0.80, Estimated Creat Clear 64, Estimated GFR 76, Est GFR ( Amer) 92 D, Glucose 150 H, Calcium 8.1 L, Magnesium 1.7 D, Total Bilirubin 0.2, AST 21, ALT 15, Alkaline Phosphatase 74, Total Protein 6.8, Albumin 3.8 D, Globulin 3.0, Albumin/Globulin Ratio 1.3 I & O for Last 24 hours: Intake & Output 12/26/23 12/27/23 12/28/23 12/29/23 23:59 23:59 23:59 23:59 Intake Total 1460 / 1702 592 / 592 Output Total 8950 / 9550 1050 / 1050 Balance -7490 / -7848 -458 / -458 Weight 183.251 kg 187.4 kg 187.4 kg Microbiology Reports for the Last 24 Hours: Microbiology 12/28/23 00:05 Blood Blood Culture - Preliminary NO GROWTH AFTER 24 HOURS 12/27/23 23:50 Blood Blood Culture - Preliminary NO GROWTH AFTER 24 HOURS Constitutional Constitutional: no acute distress, morbidly obese and chronically ill appearing *Routine HEENT Exam Head: Present normocephalic Eye: Present EOMI and PERRL ENT: Present mucous membranes moist Comments: Cushingoid face, tracheostomy in place with no drainage *Routine Neck Exam Neck: Present supple; Absent lymphadenopathy Comments: Trach collar in place with passy rayo valve *Routine Respiratory Exam Respiratory: Present CTA bilaterally and distant breath sounds; Absent prolonged expiratory phase, rhonchi or wheezes *Routine Cardiovascular Exam Cardiovascular: Present RRR; Absent murmur *Routine Abdominal Exam Abdominal: Present soft and normoactive bowel sounds; Absent tenderness *Routine Rectal Exam Patient deferred: visual exam *Routine Exam Patient deferred: external exam *Routine Extremities Exam Extremities: Present edema; Absent cyanosis or clubbing *Routine Skin Exam Skin: Present wounds; Absent rash *Routine Neurological Exam Neurological: Present alert, oriented X3 and moving all extremities; Absent altered mental status Routine Psychiatric Exam Psychiatric: Present normal affect Results Data Completed and Pending Labs on day of discharge: Labs from last 24 hours 12/29/23 12/29/23 12/28/23 06:33 06:32 20:30 ESR Sodium 141 Potassium 4.1 Chloride 93 L Carbon Dioxide 42 H* Anion Gap 10.1 BUN 23 H Creatinine 0.80 Estimated Creat Clear 64 Estimated GFR 76 Est GFR ( Amer) 92 D Glucose 150 H POC Glucose 150 H 149 H Calcium 8.1 L Magnesium 1.7 D Total Bilirubin 0.2 AST 21 ALT 15 Alkaline Phosphatase 74 Total Protein 6.8 Albumin 3.8 D Globulin 3.0 Albumin/Globulin Ratio 1.3 12/28/23 12/28/23 12/28/23 16:23 10:49 06:20 ESR 60 H Sodium Potassium Chloride Carbon Dioxide Anion Gap BUN Creatinine Estimated Creat Clear Estimated GFR Est GFR ( Amer) Glucose POC Glucose 123 H 130 H Calcium Magnesium Total Bilirubin AST ALT Alkaline Phosphatase Total Protein Albumin Globulin Albumin/Globulin Ratio Preliminary micro results at discharge 12/28/23 00:05 Blood Culture - Preliminary Blood NO GROWTH AFTER 24 HOURS 12/27/23 23:50 Blood Culture - Preliminary Blood NO GROWTH AFTER 24 HOURS DS: Diagnosis Discharge Diagnosis (1) Abdominal wall cellulitis: Status: Acute Code(s): L03.311 - Cellulitis of abdominal wall (2) Right leg swelling: Status: Acute Code(s): M79.89 - Other specified soft tissue disorders (3) Acute and chronic respiratory failure: Status: Acute Code(s): J96.20 - Acute and chronic respiratory failure, unspecified whether with hypoxia or hypercapnia Qualifiers: Respiratory failure complication: hypercapnia Qualified Code(s): J96.22 - Acute and chronic respiratory failure with hypercapnia (4) Edema, peripheral: Status: Resolved Code(s): R60.9 - Edema, unspecified (5) Tracheostomy in place: Status: Acute Code(s): Z93.0 - Tracheostomy status (6) Obesity hypoventilation syndrome: Status: Chronic Code(s): E66.2 - Morbid (severe) obesity with alveolar hypoventilation (7) Headache: Status: Resolved Code(s): R51.9 - Headache, unspecified Qualifiers: Headache chronicity pattern: chronic headache Headache type: unspecified Intractability: not intractable Qualified Code(s): R51.9 - Headache, unspecified; G89.29 - Other chronic pain (8) COPD (chronic obstructive pulmonary disease): Status: Acute Code(s): J44.9 - Chronic obstructive pulmonary disease, unspecified Qualifiers: COPD type: COPD with acute exacerbation Qualified Code(s): J44.1 - Chronic obstructive pulmonary disease with (acute) exacerbation (9) Diastolic congestive heart failure: Status: Acute Code(s): I50.30 - Unspecified diastolic (congestive) heart failure Qualifiers: Heart failure chronicity: chronic Qualified Code(s): I50.32 - Chronic diastolic (congestive) heart failure (10) Uses bilevel positive airway pressure (BPAP) ventilation at home: Status: Chronic Code(s): Z99.89 - Dependence on other enabling machines and devices (11) MDD (major depressive disorder), recurrent episode: Status: Acute Code(s): F33.9 - Major depressive disorder, recurrent, unspecified Qualifiers: Major depression episode severity: severe Psychotic features: with psychotic features Qualified Code(s): F33.3 - Major depressive disorder, recurrent, severe with psychotic symptoms (12) Diabetes mellitus, type 2: Status: Acute Code(s): E11.9 - Type 2 diabetes mellitus without complications Qualifiers: Diabetes mellitus complication detail: with unspecified neuropathy Diabetes mellitus complication status: with neurologic complications Diabetes mellitus intermediate frame tender insulin use: without fdc use Qualified Code(s): E11.40 - Type 2 diabetes mellitus with diabetic neuropathy, unspecified (13) Obesity, morbid: Status: Acute Code(s): E66.01 - Morbid (severe) obesity due to excess calories (14) History of smoking 30 or more pack years: Status: Chronic Code(s): Z87.891 - Personal history of nicotine dependence Meds Home Medications and Allergies Home Medications ?Medication ?Instructions ?Recorded ?Confirmed ?[facility]23 History Verio test strips) lancets 33 gauge ([facility] Delica 01/01/23 12/28/23 History Plus Lancet) ipratropium 0.5 mg-albuterol 3 mg 3 ml inhalation QID PRN shortness 02/09/23 12/28/23 Rx (2.5 mg base)/3 mL nebulization of breath or wheezing 90 days #270 soln mL sumatriptan succinate 100 mg tablet 100 mg PO NEEDED PRN Migraine 05/19/23 12/28/23 Rx Headache #10 tabs linaclotide 72 mcg capsule 72 mcg PO DAILY constipation #90 08/29/23 12/28/23 Rx (Linzess) caps duloxetine 30 mg capsule,delayed 90 mg (3 x 30 mg) PO DAILY Mood 60 09/11/23 12/28/23 Rx release days #180 caps fluticasone fur. 100 mcg-umeclid 1 inh inhalation DAILY 90 days #90 09/19/23 12/28/23 Rx 62.5 mcg-vilant 25 mcg ea inhalat.powder (Trelegy Ellipta) gabapentin 800 mg tablet 800 mg PO TID Neuropathy #90 tabs 11/09/23 12/28/23 Rx spironolactone 50 mg tablet 50 mg PO DAILY 90 days #90 tabs 11/09/23 12/28/23 Rx (Aldactone) acetylcysteine 100 mg/mL (10 %) 2 ml inhalation Q8H PRN cough #100 11/21/23 12/28/23 Rx solution mL losartan 25 mg tablet 25 mg PO DAILY #30 tabs 11/21/23 12/28/23 Rx magnesium oxide 400 mg (241.3 mg 800 mg (2 x 400 mg (241.3 mg 11/21/23 12/28/23 Rx magnesium) tablet magnesium)) PO DAILY #60 tabs propranolol 10 mg tablet 10 mg PO BID #60 tabs 11/21/23 12/28/23 Rx budesonide 0.5 mg/2 mL suspension 0.5 mg (2 mL) inhalation Q12H #120 11/22/23 12/28/23 Rx for nebulization mL formoterol fumarate 20 mcg/2 mL 2 ml inhalation BID 30 days #120 mL 11/22/23 12/28/23 Rx solution for nebulization (Perforomist) cyclobenzaprine 5 mg tablet 5 mg PO TID Muscle relaxer 90 days 11/24/23 12/28/23 Rx #270 tabs diazepam 5 mg tablet 2.5 mg (1/2 x 5 mg) PO TID 30 days 11/29/23 12/28/23 Rx #45 tabs bisacodyl 5 mg tablet,delayed 5 mg PO HS PRN constipation 15 11/30/23 12/28/23 Rx release (Dulcolax (bisacodyl)) days #15 tabs ondansetron 4 mg disintegrating 4 mg PO Q6H PRN nausea and 11/30/23 12/28/23 Rx tablet vomiting #30 tabs albuterol sulfate 90 mcg/actuation 1 puff inhalation Q6HP PRN 12/11/23 12/28/23 Rx aerosol inhaler Shortness Of Breath #8.5 grams acetylcysteine 600 mg capsule 600 mg PO DAILY PRN cough #30 caps 12/22/23 12/28/23 Rx fluticasone propionate 50 1 spray intranasal DAILY #16 grams 12/22/23 12/28/23 Rx mcg/actuation nasal spray,suspension (Flonase Allergy Relief) clindamycin HCl 300 mg capsule 300 mg PO Q8H 10 days #30 caps 12/27/23 12/28/23 Rx lamotrigine 100 mg tablet 100 mg PO DAILY 12/28/23 12/28/23 History levothyroxine 25 mcg tablet 25 mcg PO DAILY 12/28/23 12/28/23 History omeprazole 40 mg capsule,delayed 40 mg PO BID 12/28/23 12/28/23 History release oxycodone-acetaminophen 10 mg-325 1 tab PO QIDP PRN Moderate Pain 12/28/23 12/28/23 History mg tablet (Scale Score 5-6) promethazine 25 mg tablet 25 mg PO Q8HP PRN Nausea And 12/28/23 12/28/23 History Vomiting semaglutide 0.25 mg or 0.5 mg (2 0.25 mg (0.368 mL) SQ WEEKLY #3 mL 12/30/23 Rx mg/3 mL) subcutaneous pen injector (Ozempic) bumetanide 1 mg tablet 2 mg (2 x 1 mg) PO DAILY 30 days 01/01/24 Rx #60 tabs New Prescriptions to Start Prescriptions: Dean Cabreraglutide [Ozempic] Dean Ornelas Allergies Allergy/AdvReac Type Severity Reaction Status Date / Time doxycycline Allergy Severe Blister Verified 11/29/23 08:52 Sulfa (Sulfonamide AdvReac Intermediate Rash Verified 12/27/23 23:57 Antibiotics) amoxicillin AdvReac Verified 11/29/23 08:52 nitrofurantoin AdvReac Verified 11/29/23 08:52 [From Macrobid] Discharge Plan Disposition Patient Disposition: Home, Self-Care Condition: Fair Discharge Order Discharge Orders: Discharge Order (Routine); Ordered 01/01/24 Ordered By: Dean Ornelas Follow up Plan Follow up with: Owen Martinez DO [Primary Care Provider] - 01/08/24 11:15 am Tian Diaz MD [Physician] - 01/22/24 1:15 pm Prescriptions/Medication Reconciliation: New Ozempic 0.25 mg or 0.5 mg (2 mg/3 mL) pen injector 0.25 mg SQ WEEKLY Qty: 3 0RF Rx Instructions: for 4 weeks bumetanide 1 mg Tablet 2 mg PO DAILY 30 Days Qty: 60 0RF Continued ipratropium-albuterol 0.5 mg-3 mg(2.5 mg base)/3 mL solution for nebulization 3 ml inhalation QID PRN (Reason: shortness of breath or wheezing) 90 Days Qty: 270 3RF Trelegy Ellipta 100-62.5-25 mcg blister with device 1 inh inhalation DAILY 90 Days Qty: 90 2RF duloxetine 30 mg capsule,delayed release(DR/EC) 90 mg PO DAILY 60 Days Qty: 180 6RF acetylcysteine 100 mg/mL (10 %) solution 2 ml inhalation Q8H PRN (Reason: cough) Qty: 100 0RF formoterol fumarate [Perforomist] 20 mcg/2 mL solution for nebulization 2 ml inhalation BID 30 Days Qty: 120 1RF budesonide 0.5 mg/2 mL suspension for nebulization 0.5 mg inhalation Q12H Qty: 120 1RF propranolol 10 mg tablet 10 mg PO BID Qty: 60 5RF losartan 25 mg tablet 25 mg PO DAILY Qty: 30 5RF magnesium oxide 400 mg (241.3 mg magnesium) tablet 800 mg PO DAILY Qty: 60 5RF gabapentin 800 mg tablet 800 mg PO TID Qty: 90 1RF fluticasone propionate [Flonase Allergy Relief] 50 mcg/actuation spray,suspension 1 spray intranasal DAILY Qty: 16 2RF Rx Instructions: administer into each nostril diazepam 5 mg tablet 2.5 mg PO TID 30 Days Qty: 45 0RF sumatriptan succinate 100 mg tablet 100 mg PO NEEDED PRN (Reason: Migraine Headache) Qty: 10 2RF Linzess 72 mcg capsule 72 mcg PO DAILY Qty: 90 0RF spironolactone [Aldactone] 50 mg tablet 50 mg PO DAILY 90 Days Qty: 90 4RF cyclobenzaprine 5 mg tablet 5 mg PO TID 90 Days Qty: 270 3RF bisacodyl [Dulcolax (bisacodyl)] 5 mg tablet,delayed release (DR/EC) 5 mg PO HS PRN (Reason: constipation) 15 Days Qty: 15 3RF ondansetron 4 mg tablet,disintegrating 4 mg PO Q6H PRN (Reason: nausea and vomiting) Qty: 30 0RF albuterol sulfate 90 mcg/actuation HFA aerosol inhaler 1 puff inhalation Q6HP PRN (Reason: Shortness Of Breath) Qty: 8.5 2RF acetylcysteine 600 mg capsule 600 mg PO DAILY PRN (Reason: cough) Qty: 30 0RF clindamycin HCl 300 mg capsule 300 mg PO Q8H 10 Days Qty: 30 0RF (DME) OneTouch Verio test strips Strip See Rx Instructions .Route Rx Instructions: As directed (DME) lancets [OneTouch Delica Plus Lancet] 33 gauge misc See Rx Instructions .Route Rx Instructions: As directed omeprazole 40 mg capsule,delayed release(DR/EC) 40 mg PO BID levothyroxine 25 mcg tablet 25 mcg PO DAILY Patient Comments: TAKE ONE TABLET BY MOUTH EVERY DAY AT 700am oxycodone-acetaminophen 10-325 mg tablet 1 tab PO QIDP PRN (Reason: Moderate Pain (Scale Score 5-6)) Patient Comments: TAKE ONE TABLET BY MOUTH FOUR TIMES DAILY NEEDED FOR PAIN MAY CAUSE DROWSINESS lamotrigine 100 mg tablet 100 mg PO DAILY Patient Comments: TAKE ONE TABLET BY MOUTH EVERY DAY FOR mood promethazine 25 mg tablet 25 mg PO Q8HP PRN (Reason: Nausea And Vomiting) Discontinued torsemide 100 mg tablet 100 mg PO DAILY trazodone 100 mg tablet 100 mg PO HS Patient Comments: TAKE ONE TABLET BY MOUTH EVERY DAY AT BEDTIME FOR SLEEP Problem Reconciliation Problems Reviewed?: Yes Patient Discharge Instructions ACTIVITY: Continue current activity DIET: continue same diet Patient Instructions: DI for Cellulitis -- Adult, DI for Heart Failure, DI for Pneumonia -- Adult, DI for Respiratory Failure, Catheter-Associated Urinary Tract Infection Print Language: Slovenian Providers Primary Care Provider: Owen Martinez Admit Provider: Dean Ornelas Attending Provider: Dean Ornelas
[2024-01-01] MEDS: ACETAMINOPHEN 325MG TAB 650 MG PO (08:49)
[2024-01-01] MEDS: ENOXAPARIN 60MG/0.6ML SYRINGE 60 MG SQ (08:49)
[2024-01-01] MEDS: CYCLOBENZAPRINE 10MG TABLET 5 MG PO ×2 (08:49→12:47)
[2024-01-01] MEDS: IRBESARTAN 75MG TABLET 75 MG PO (08:49)
[2024-01-01] MEDS: PROPRANOLOL 20MG TAB 10 MG PO (08:50)
[2024-01-01] MEDS: GABAPENTIN 600MG TABLET 600 MG PO ×2 (08:50→12:46)
[2024-01-01] MEDS: MAGNESIUM OXIDE 400MG TABLET 800 MG PO (08:50)
[2024-01-01] MEDS: acetaZOLAMIDE 250 MG TABLET PO (08:50)
[2024-01-01] MEDS: DULOXETINE 30MG CAPSULE.DR 90 MG PO (08:51)
[2024-01-01] MEDS: BUMETANIDE 1 MG TABLET 2 MG PO ×2 (08:51→15:42)
[2024-01-01] MEDS: SPIRONOLACTONE 25MG TABLET 50 MG PO (08:51)
[2024-01-01] MEDS: lamoTRIgine 100MG TABLET 100 MG PO (08:52)
[2024-01-01] MEDS: SENNOSIDES 8.6MG/DOCUSATE 50MG TABLET 1 TAB PO (08:52)
[2024-01-01] MEDS: FLUTICASONE PROP 50MCG NASAL SPRAY 16GM 1 SPRAY NS (08:58)
[2024-01-01] MEDS: diazePAM 5MG TABLET 2.5 MG PO (09:13)
--- NOTE | 2024-01-01 09:36 | P.CONS_ITS ---
History of Present Illness History of present illness: Ms. Badillo is a 48-year-old female history of asthma, obesity hypoventilation syndrome status post tracheostomy, chronic hypercarbic respiratory failure currently on trilogy NIV presented to the ER with worsening abdominal pain and respiratory distress. Patient also being managed for abdominal wall cellulitis/Panniculitis. Patient denies any new respiratory complaints. [facility] Disclaimer: The information contained in this section may have been updated after the patient was seen, as this information can be updated by other users. Medical History (Updated 01/01/24 @ 11:58 by Tian Diaz MD) Asthma Acute on chronic respiratory failure with hypoxia and hypercapnia Palpitations Ear pain, right Acute and chronic respiratory failure with hypercapnia PTSD (post-traumatic stress disorder) Chest pain Generalized anxiety disorder Recurrent major depression resistant to treatment Sleep apnea History of ectopic History of hyperkalemia Diastolic congestive heart failure Paranoid schizophrenia Uses bilevel positive airway pressure (BPAP) ventilation at home History of sleep apnea History of asthma Cellulitis of right lower extremity Acute and chronic respiratory failure with hypercapnia Pneumonia Acute and chronic respiratory failure Right lower lobe pneumonia History of smoking 30 or more pack years Obesity hypoventilation syndrome Chronic respiratory failure with hypercapnia Severe sepsis COVID-19 Acute and chronic respiratory failure Pneumonia Tracheostomy in place Edema Sinus tachycardia Dizziness Diastolic dysfunction Acute on chronic diastolic heart failure Respiratory failure with hypoxia and hypercapnia Congestive heart failure Acute on chronic diastolic heart failure Elevated d-dimer PAC (premature atrial contraction) Chest pain Dyspnea HTN (hypertension) COPD (chronic obstructive pulmonary disease) Tobacco abuse Abnormal stress test SOB (shortness of breath) Angina, class III Obesity Hypothyroidism (~11/21/17) Asthma Insomnia Depression Anxiety Neuropathy Surgical History History of colonoscopy History of left knee surgery History of hysterectomy Family History Other No significant family history Social History (Updated 12/28/23 @ 01:47 by Fariha Ayon RN) Smoking Status: Former smoker tobacco type: cigarettes packs per day: 1 smoking status stop date: 02/2022 alcohol intake: former substance use type: marijuana current occupational status: disabled Travel in the last 8 weeks: None household members: family housing: apartment number of children: 0 current occupational exposures/hazards: No caffeine: Yes Review of Systems Constitutional Constitutional: Reports anorexia, Reports body ache(s) and Reports fatigue Eyes Eyes: Denies eye discharge, Denies dry eyes, Denies irritation and Denies itchy eyes ENT Ears, Nose, Mouth, and Throat: Denies epistaxis, Denies facial pain, Denies lip swelling and Denies throat swelling *Cardiovascular Cardiovascular: Reports dyspnea, Reports dyspnea on exertion and Reports leg edema *Respiratory Respiratory: Reports chest congestion, Reports cough, Reports dyspnea, Reports dyspnea on exertion, Denies excessive phlegm production, Denies hemoptysis, Denies pain on inspiration, Denies pain with cough and Denies wheezing *Gastrointestinal Gastrointestinal: Denies abdominal pain, Denies belching and Denies cramping *Musculoskeletal Musculoskeletal: Reports back pain, Reports myalgias and Reports other (No small joint swelling or Pain) Psychiatric Psychiatric: Denies homicidal ideation and Denies suicidal ideation Endocrine Endocrine: Reports fatigue and Denies heat intolerance Hematologic/Lymphatic Hematologic/Lymphatic: Denies easy bleeding and Denies lymphadenopathy Allergic/Immunologic Allergic/Immunologic: Denies itchy eyes, Denies lip swelling, Denies throat swelling and Denies wheezing Pulmonology Exam Inpatient Vital signs and Labs for Last 24 Hours: Temp Pulse Resp BP Pulse Ox O2 Del Method O2 Flow Rate 98 F 90 20 92/50 L 95 Trach Collar/Tube 8 01/01/24 07:42 01/01/24 08:00 01/01/24 08:00 01/01/24 08:00 01/01/24 08:00 01/01/24 08:01 01/01/24 08:00 FiO2 60 01/01/24 06:23 Laboratory Results - last 24 hr 12/31/23 11:04: POC Glucose 105 12/31/23 15:29: POC Glucose 107 12/31/23 19:49: POC Glucose 123 H 01/01/24 00:05: Vancomycin Trough 23.6 H 01/01/24 04:12: POC Glucose 132 H 01/01/24 04:25: WBC 7.0, RBC 4.15 L, Hgb 11.7 L, Hct 37.8, MCV 91.0, MCH 28.1, M CHC 30.9 L, RDW 17.0, Plt Count 175, MPV 9.3, Neut % (Auto) 80.1 H, Lymph % (Auto) 12.3, Young % (Auto) 5.4, Eos % (Auto) 1.5, Baso % (Auto) 0.7, Neut # (Auto) 5.6, Lymph # (Auto) 0.9, Young # (Auto) 0.4, Eos # (Auto) 0.1, Baso # (Auto) 0.1, Sodium 137, Potassium 3.6, Chloride 96 L, Carbon Dioxide 38 H, Anion Gap 6.6, BUN 25 H, Creatinine 1.10 H, Estimated Creat Clear 47, Estimated GFR 53 L, Est GFR ( Amer) 64 D, Glucose 120 H, Calcium 8.2 L, Magnesium 2.5 H D , Total Bilirubin 0.3, AST 19, ALT 15, Alkaline Phosphatase 59, Total Protein 6.4, Albumin 3.4 L, Globulin 3.0, Albumin/Globulin Ratio 1.1, Vancomycin Peak 27.5 I & O for Labs for Last 24 Hours: Intake & Output 12/29/23 12/30/23 12/31/23 01/01/24 23:59 23:59 23:59 23:59 Intake Total 1767 / 2357 2189.75 / 2779.75 2280 / 2730 720 / 720 Output Total 2475 / 3875 4425 / 5725 2800 / 2800 750 / 750 Balance -708 / -1518 -2235.25 / -2945.25 -520 / -70 -30 / -30 Weight 407 lb 13.683 oz 383 lb 6.142 oz 404 lb 12.299 oz 416 lb 0.196 oz Microbiology Reports for the Last 24 Hours: Microbiology 12/28/23 00:05 Blood Blood Culture - Preliminary NO GROWTH AFTER 4 DAYS 12/27/23 23:50 Blood Blood Culture - Preliminary NO GROWTH AFTER 4 DAYS Constitutional: Present moderate distress Head: Present normocephalic and atraumatic ENT: Present normal exam, normal oropharynx and mucous membranes moist Neck: Present normal inspection and full ROM Respiratory: Present normal respiratory effort and able to speak in complete sentences; Absent respiratory distress or wheezes Cardiac: Present S1/S2, Tachycardia and radial pulses present GI: Present soft and distention; Absent tenderness or guarding Rectal (female): Present deferred (female): Present deferred Skin: Present intact; Absent cyanosis or jaundice Neuro: Present alert, awake and oriented x 3 Extremities: Present normal inspection; Absent clubbing or cyanosis Psychiatric: Present normal affect and cooperative Meds Home Medications and Allergies Home Medications ?Medication ?Instructions ?Recorded ?Confirmed ?Type blood sugar diagnostic ([facility] 01/01/23 12/28/23 History Verio test strips) lancets 33 gauge ([facility]ica 01/01/23 12/28/23 History Plus Lancet) ipratropium 0.5 mg-albuterol 3 mg 3 ml inhalation QID PRN shortness 02/09/23 12/28/23 Rx (2.5 mg base)/3 mL nebulization of breath or wheezing 90 days #270 soln mL sumatriptan succinate 100 mg tablet 100 mg PO NEEDED PRN Migraine 05/19/23 12/28/23 Rx Headache #10 tabs linaclotide 72 mcg capsule 72 mcg PO DAILY constipation #90 08/29/23 12/28/23 Rx (Linzess) caps duloxetine 30 mg capsule,delayed 90 mg (3 x 30 mg) PO DAILY Mood 60 09/11/23 12/28/23 Rx release days #180 caps fluticasone fur. 100 mcg-umeclid 1 inh inhalation DAILY 90 days #90 09/19/23 12/28/23 Rx 62.5 mcg-vilant 25 mcg ea inhalat.powder (Trelegy Ellipta) gabapentin 800 mg tablet 800 mg PO TID Neuropathy #90 tabs 11/09/23 12/28/23 Rx spironolactone 50 mg tablet 50 mg PO DAILY 90 days #90 tabs 11/09/23 12/28/23 Rx (Aldactone) acetylcysteine 100 mg/mL (10 %) 2 ml inhalation Q8H PRN cough #100 11/21/23 12/28/23 Rx solution mL losartan 25 mg tablet 25 mg PO DAILY #30 tabs 11/21/23 12/28/23 Rx magnesium oxide 400 mg (241.3 mg 800 mg (2 x 400 mg (241.3 mg 11/21/23 12/28/23 Rx magnesium) tablet magnesium)) PO DAILY #60 tabs propranolol 10 mg tablet 10 mg PO BID #60 tabs 11/21/23 12/28/23 Rx budesonide 0.5 mg/2 mL suspension 0.5 mg (2 mL) inhalation Q12H #120 11/22/23 12/28/23 Rx for nebulization mL formoterol fumarate 20 mcg/2 mL 2 ml inhalation BID 30 days #120 mL 11/22/23 12/28/23 Rx solution for nebulization (Perforomist) cyclobenzaprine 5 mg tablet 5 mg PO TID Muscle relaxer 90 days 11/24/23 12/28/23 Rx #270 tabs diazepam 5 mg tablet 2.5 mg (1/2 x 5 mg) PO TID 30 days 11/29/23 12/28/23 Rx #45 tabs bisacodyl 5 mg tablet,delayed 5 mg PO HS PRN constipation 15 11/30/23 12/28/23 Rx release (Dulcolax (bisacodyl)) days #15 tabs ondansetron 4 mg disintegrating 4 mg PO Q6H PRN nausea and 11/30/23 12/28/23 Rx tablet vomiting #30 tabs albuterol sulfate 90 mcg/actuation 1 puff inhalation Q6HP PRN 12/11/23 12/28/23 Rx aerosol inhaler Shortness Of Breath #8.5 grams acetylcysteine 600 mg capsule 600 mg PO DAILY PRN cough #30 caps 12/22/23 12/28/23 Rx fluticasone propionate 50 1 spray intranasal DAILY #16 grams 12/22/23 12/28/23 Rx mcg/actuation nasal spray,suspension (Flonase Allergy Relief) clindamycin HCl 300 mg capsule 300 mg PO Q8H 10 days #30 caps 12/27/23 12/28/23 Rx lamotrigine 100 mg tablet 100 mg PO DAILY 12/28/23 12/28/23 History levothyroxine 25 mcg tablet 25 mcg PO DAILY 12/28/23 12/28/23 History omeprazole 40 mg capsule,delayed 40 mg PO BID 12/28/23 12/28/23 History release oxycodone-acetaminophen 10 mg-325 1 tab PO QIDP PRN Moderate Pain 12/28/23 12/28/23 History mg tablet (Scale Score 5-6) promethazine 25 mg tablet 25 mg PO Q8HP PRN Nausea And 12/28/23 12/28/23 History Vomiting torsemide 100 mg tablet 100 mg PO DAILY Fluid 12/28/23 12/28/23 History trazodone 100 mg tablet 100 mg PO HS 12/28/23 12/28/23 History semaglutide 0.25 mg or 0.5 mg (2 0.25 mg (0.368 mL) SQ WEEKLY #3 mL 12/30/23 Rx mg/3 mL) subcutaneous pen injector (Ozempic) New Prescriptions to Start Prescriptions: semaglutide [Ozempic] Dean Ornelas Allergies Allergy/AdvReac Type Severity Reaction Status Date / Time doxycycline Allergy Severe Blister Verified 11/29/23 08:52 Sulfa (Sulfonamide AdvReac Intermediate Rash Verified 12/27/23 23:57 Antibiotics) amoxicillin AdvReac Verified 11/29/23 08:52 nitrofurantoin AdvReac Verified 11/29/23 08:52 [From Macrobid] Results Laboratory Findings 01/01/24 04:25 01/01/24 04:25 ABG ABG pH 7.34 mmol/L (7.35-7.45) L 12/30/23 10:17 ABG pCO2 91.3 mmhg (35.0-45.0) H 12/30/23 10:17 ABG pO2 70.3 mmhg (80-100) L 12/30/23 10:17 ABG O2 Saturation 93 % (90-100) 12/30/23 10:17 Abnormal lab findings: Abnormal Labs 12/27/23 12/27/23 12/28/23 23:41 23:50 05:01 RBC Hgb MCHC 31.4 L RDW 17.6 H Neut % (Auto) Lymph % (Auto) Lymph # (Auto) Neutrophils % (Manual) ESR ABG pH ABG pCO2 ABG pO2 ABG HCO3 ABG Total CO2 ABG Base Excess VBG pH 7.27 L VBG pCO2 74.5 H VBG HCO3 33.6 H VBG Total CO2 35.9 H VBG O2 Saturation 73.4 H VBG Base Excess 6.7 H Chloride Carbon Dioxide 38 H BUN 24 H Creatinine 1.10 H Estimated GFR 53 L Est GFR ( Amer) Glucose 129 H POC Glucose 151 H Calcium Magnesium Total Bilirubin 0.1 L C-Reactive Protein NT-Pro-B Natriuret Pep 129 H Total Protein Albumin Globulin 3.3 H Vancomycin Trough 12/28/23 12/28/23 12/28/23 06:20 10:49 16:23 RBC 4.19 L Hgb 11.9 L MCHC RDW Neut % (Auto) Lymph % (Auto) Lymph # (Auto) Neutrophils % (Manual) ESR 60 H ABG pH ABG pCO2 ABG pO2 ABG HCO3 ABG Total CO2 ABG Base Excess VBG pH VBG pCO2 VBG HCO3 VBG Total CO2 VBG O2 Saturation VBG Base Excess Chloride Carbon Dioxide 35 H BUN 22 H Creatinine Estimated GFR Est GFR ( Amer) Glucose 160 H D POC Glucose 130 H 123 H Calcium Magnesium Total Bilirubin C-Reactive Protein 45.2 H NT-Pro-B Natriuret Pep Total Protein 6.0 L Albumin 3.2 L D Globulin Vancomycin Trough 12/28/23 12/29/23 12/29/23 20:30 06:32 06:33 RBC Hgb MCHC 30.3 L RDW Neut % (Auto) 87.5 H Lymph % (Auto) 7.6 L Lymph # (Auto) 0.6 L Neutrophils % (Manual) 85 H ESR ABG pH ABG pCO2 ABG pO2 ABG HCO3 ABG Total CO2 ABG Base Excess VBG pH VBG pCO2 VBG HCO3 VBG Total CO2 VBG O2 Saturation VBG Base Excess Chloride 93 L Carbon Dioxide 42 H* BUN 23 H Creatinine Estimated GFR Est GFR ( Amer) Glucose 150 H POC Glucose 149 H 150 H Calcium 8.1 L Magnesium Total Bilirubin C-Reactive Protein NT-Pro-B Natriuret Pep Total Protein Albumin Globulin Vancomycin Trough 12/29/23 12/29/23 12/29/23 10:31 12:00 17:00 RBC Hgb MCHC RDW Neut % (Auto) Lymph % (Auto) Lymph # (Auto) Neutrophils % (Manual) ESR ABG pH ABG pCO2 ABG pO2 ABG HCO3 ABG Total CO2 ABG Base Excess VBG pH VBG pCO2 VBG HCO3 VBG Total CO2 VBG O2 Saturation VBG Base Excess Chloride 89 L Carbon Dioxide 46 H* BUN 25 H Creatinine Estimated GFR Est GFR ( Amer) Glucose 121 H POC Glucose 124 H Calcium 7.9 L Magnesium Total Bilirubin C-Reactive Protein NT-Pro-B Natriuret Pep Total Protein Albumin Globulin Vancomycin Trough 16.7 H 12/29/23 12/29/23 12/30/23 20:11 20:15 00:00 RBC Hgb MCHC RDW Neut % (Auto) Lymph % (Auto) Lymph # (Auto) Neutrophils % (Manual) ESR ABG pH 7.31 L 7.26 L ABG pCO2 95.7 H 102.4 H ABG pO2 77.4 L 71.5 L ABG HCO3 46.7 H 45.2 H ABG Total CO2 49.6 H 48.4 H ABG Base Excess 20.3 H 18.2 H VBG pH VBG pCO2 VBG HCO3 VBG Total CO2 VBG O2 Saturation VBG Base Excess Chloride Carbon Dioxide BUN Creatinine Estimated GFR Est GFR ( Amer) Glucose POC Glucose 115 H Calcium Magnesium Total Bilirubin C-Reactive Protein NT-Pro-B Natriuret Pep Total Protein Albumin Globulin Vancomycin Trough 12/30/23 12/30/23 12/30/23 03:00 06:35 06:45 RBC 4.13 L Hgb 11.8 L MCHC 31.2 L RDW Neut % (Auto) Lymph % (Auto) Lymph # (Auto) Neutrophils % (Manual) ESR ABG pH 7.34 L ABG pCO2 78.6 H 91.4 H ABG pO2 59.3 L 60.2 L ABG HCO3 41.5 H 49.7 H ABG Total CO2 44.0 H 52.5 H ABG Base Excess 15.8 H 24.1 H VBG pH VBG pCO2 VBG HCO3 VBG Total CO2 VBG O2 Saturation VBG Base Excess Chloride 89 L Carbon Dioxide 47 H* BUN 23 H Creatinine 1.10 H Estimated GFR 53 L Est GFR ( Amer) Glucose POC Glucose Calcium 7.4 L Magnesium Total Bilirubin C-Reactive Protein NT-Pro-B Natriuret Pep Total Protein Albumin 3.4 L D Globulin Vancomycin Trough 12/30/23 12/30/23 12/30/23 10:17 11:45 17:10 RBC Hgb MCHC RDW Neut % (Auto) Lymph % (Auto) Lymph # (Auto) Neutrophils % (Manual) ESR ABG pH 7.34 L ABG pCO2 91.3 H ABG pO2 70.3 L ABG HCO3 47.8 H ABG Total CO2 50.6 H ABG Base Excess 22.0 H VBG pH VBG pCO2 VBG HCO3 VBG Total CO2 VBG O2 Saturation VBG Base Excess Chloride 89 L Carbon Dioxide 41 H* BUN 22 H Creatinine 1.20 H Estimated GFR 48 L Est GFR ( Amer) 58 L Glucose 110 H D POC Glucose 118 H Calcium 7.9 L Magnesium Total Bilirubin C-Reactive Protein NT-Pro-B Natriuret Pep Total Protein Albumin Globulin Vancomycin Trough 12/30/23 12/31/23 12/31/23 20:42 06:15 06:35 RBC 4.19 L Hgb 12.0 L MCHC 31.3 L RDW Neut % (Auto) Lymph % (Auto) Lymph # (Auto) Neutrophils % (Manual) ESR ABG pH ABG pCO2 ABG pO2 ABG HCO3 ABG Total CO2 ABG Base Excess VBG pH VBG pCO2 VBG HCO3 VBG Total CO2 VBG O2 Saturation VBG Base Excess Chloride 91 L Carbon Dioxide > 40 H* BUN 26 H Creatinine 1.30 H Estimated GFR 44 L Est GFR ( Amer) 53 L Glucose 122 H POC Glucose 126 H 134 H Calcium 8.0 L Magnesium Total Bilirubin C-Reactive Protein NT-Pro-B Natriuret Pep Total Protein Albumin Globulin Vancomycin Trough 12/31/23 01/01/24 01/01/24 19:49 00:05 04:12 RBC Hgb MCHC RDW Neut % (Auto) Lymph % (Auto) Lymph # (Auto) Neutrophils % (Manual) ESR ABG pH ABG pCO2 ABG pO2 ABG HCO3 ABG Total CO2 ABG Base Excess VBG pH VBG pCO2 VBG HCO3 VBG Total CO2 VBG O2 Saturation VBG Base Excess Chloride Carbon Dioxide BUN Creatinine Estimated GFR Est GFR ( Amer) Glucose POC Glucose 123 H 132 H Calcium Magnesium Total Bilirubin C-Reactive Protein NT-Pro-B Natriuret Pep Total Protein Albumin Globulin Vancomycin Trough 23.6 H 01/01/24 04:25 RBC 4.15 L Hgb 11.7 L MCHC 30.9 L RDW Neut % (Auto) 80.1 H Lymph % (Auto) Lymph # (Auto) Neutrophils % (Manual) ESR ABG pH ABG pCO2 ABG pO2 ABG HCO3 ABG Total CO2 ABG Base Excess VBG pH VBG pCO2 VBG HCO3 VBG Total CO2 VBG O2 Saturation VBG Base Excess Chloride 96 L Carbon Dioxide 38 H BUN 25 H Creatinine 1.10 H Estimated GFR 53 L Est GFR ( Amer) Glucose 120 H POC Glucose Calcium 8.2 L Magnesium 2.5 H D Total Bilirubin C-Reactive Protein NT-Pro-B Natriuret Pep Total Protein Albumin 3.4 L Globulin Vancomycin Trough Assessment and Plan *Assessment and plan (1) Acute on chronic respiratory failure with hypoxia and hypercapnia: Status: Acute Category: Medical Code(s): J96.21 - Acute and chronic respiratory failure with hypoxia; J96.22 - Acute and chronic respiratory failure with hypercapnia (2) Pickwickian syndrome: Status: Chronic Category: Medical Code(s): E66.2 - Morbid (severe) obesity with alveolar hypoventilation (3) Asthma: Status: Acute Qualifiers: Asthma severity: moderate Asthma persistence: persistent Asthma complication type: unspecified Qualified Code(s): J45.40 - Moderate persistent asthma, uncomplicated Category: Medical Code(s): J45.909 - Unspecified asthma, uncomplicated Plan Ms. Badillo is a 48-year-old female history of asthma, obesity hypoventilation syndrome status post tracheostomy, chronic hypercarbic respiratory failure currently on trilogy NIV presented to the ER with worsening abdominal pain and respiratory distress. Patient also being managed for abdominal wall cellulitis/Panniculitis. Patient denies any new respiratory complaints. ABG upon admission showed acute on chronic hypercarbic respiratory failure. Sputum cultures from admission likely mixed respiratory derrell, will follow. She has been receiving vancomycin and ceftriaxone for the concerning cellulitis. CTA upon admission evidence of consolidation/pneumonia noted. No evidence of pulmonary embolism noted. Compliance report of patient's trilogy NIV reviewed, only using it at 3.7 hours/min with average tidal volume of 410 with average respiratory rate of 16.7. Currently a tidal volume of 450, PEEP of 5 and pressure support of 5 / 15 and a backup rate of 12. Plan: Recommend to be more compliant with trilogy Update settings to be at Tidal volume of o450, PEEP of 8, PS of 4/16 and backup rate of 12. Will fax the updated settings to [employer]. Trach care Continue budesonide and formoterol nebulizations twice daily scheduled along with DuoNebs every 6 hours on as-needed basis. # Thank you for involving pulmonary in this patient care. Will continue to follow.
--- NOTE | 2024-01-01 09:42 | HMH.PTEV ---
Physical Therapy Evaluation Rehab PT IP Evaluation Start: 12/31/23 12:45 Freq: ONCE Status: Active Protocol: Document 01/01/24 07:24 ASYA (Rec: 01/01/24 09:42 ASYA [id number]) Subjective/History History History Per H&P: Morbidly obese 47-year-old female with a PMHx of chronic hypoventilation syndrome, respiratory failure post COVID , trach dependance, on home oxygen 3L, MDD, migraine, hypothyroidism, anxiety disorder, diastolic heart failure, normal EF, chronic bilateral lymphedema and a former smoker coming to ED fro evaluation of worsening abdominal wall redness and pain and worsening respiratory symptoms.. Her primary complaint is worsening abdominal wall redness and pain. She reports that it has been spreading. She also reports that her respiratory symptoms have not improved. She was seen here approximately a week ago and was diagnosed with pneumonia and abdominal wall cellulitis. She was encouraged to be admitted but she ultimately decided to leave against medical advice. Placed on Bactrim and Levaquin which she has been taking without improvement in symptoms. Admitted for further treatment . Subjective Subjective Pt reports she lives alone in a single story home with 4 ZAYRA . Pt reports she was IND with mobility/ambulation prior to admission. Reports I fall a lot . Pt owns a RW but reports she does not use it. Pt reports she has been able to walk to/from hospital bathroom without issues and with assistance. New diagnosis of cancer in past 12 No months? Rehab PT IP Eval Objective Appearance Patient Behavior Appropriate Patient Orientation Person Difficulty following instructions none Speech Pattern Soft-Spoken Ambulation Patient Able to Ambulate Yes Ambulation Observation IP General Gait Pattern Observation Wide Based Gait Ambulation Distance (feet) 15 Ambulation Assistive Device None Ambulation Ability Supervision/Stand by Balance Ability to Arise Able, uses arms to help Sitting Balance Steady, safe Standing Balance Steady, wide stance Transfers Sit to Stand Bed Transfer Ability Supervision/Stand by Rehab PT IP prob,goals,plan Problems Date of Evaluation: 01/01/24 Rehab Potential Rehab Potential Innapropriate for Skilled Therapy Discharge Plan PT Discharge Plan Pt safe to d/c home when deemed medically necessary d/t current level of mobility and home set-up. Pt able to perform STS with SUP. Pt demo' d safe ambulation with minimal sway when not using an AD. Pt performed dynamic standing tasks/reaching with SUP and no LOB. PT educated pt that pt would be safer to ambulate with RW d/t history of falls. Pt pleasantly verbalized understanding. Pt not appropriate for skilled acute care PT at this time d/t pt?s mobility being at baseline. PT recommending home health PT services to address endurance and strength deficits. Eval Complexity Eval Charge Codes 45383 - Moderate Complexity PHYSICIAN CERTIFICATION: I certify the specified therapy services for Carin Badillo are required, authorized, and reviewed every 30 days.
[2024-01-01] MEDS: CEFTRIAXONE SODIUM 2 GM in 0.9 % SODIUM CHLORIDE 100 ML IV (10:54)
--- NOTE | 2024-01-01 13:33 | HMH.OTEV ---
OT Inpatient Evaluation Rehab OT IP Evaluation Start: 12/31/23 12:45 Freq: ONCE Status: Active Protocol: Document 01/01/24 13:27 [place] (Rec: 01/01/24 13:33 [facility] [id number]) Rehab OT IP Assessment Subjective History Pt oriented x 3 on arrival. Pt agreeable to engage in therapy evaluation. Pt admitted on 12/27/33 due to cellulitis. History and physical report: Morbidly obese 47-year-old female with a PMHx of chronic hypoventilation syndrome, respiratory failure post COVID , trach dependance, on home oxygen 3L, MDD, migraine, hypothyroidism, anxiety disorder, diastolic heart failure, normal EF, chronic bilateral lymphedema and a former smoker coming to ED fro evaluation of worsening abdominal wall redness and pain and worsening respiratory symptoms.. Her primary complaint is worsening abdominal wall redness and pain. She reports that it has been spreading. She also reports that her respiratory symptoms have not improved. She was seen here approximately a week ago and was diagnosed with pneumonia and abdominal wall cellulitis. She was encouraged to be admitted but she ultimately decided to leave against medical advice. Placed on Bactrim and Levaquin which she has been taking without improvement in symptoms. Admitted for further treatment . Subjective I live alone. Pt reports prior to being in the hospital she was living alone. Pt claims normally she is independent with all ADLS and IADLS. She is trach dependent, but manages it independently at home. Pt does not require any type of AE during functional transfers . Pt also reports she still drives as needed. Objective Patient Orientation Person,Place,Birthday Right Upper Extremity Gross ROM WFL Left Upper Extremity Gross ROM WFL Bed Mobility bed mobility-scooting,bed mobility - supine/sit Assist Level Supervision/Stand by Transfer Training Sit/Stand Transfer Assist Level Supervision/Stand by Chair Transfer Ability Supervision/Stand by Chair Transfer Technique Sit to/from Ambulatory Chair Transfer Assistive Devices None Lower Body Dressing Ability Standby Assistance Performing Toilet Hygiene Ability Standby Assistance Overall Commode/Toilet Transfer Ability Standby Assistance Commode/Toilet Transfer Technique Sit to/from Ambulatory Commode/Toilet Transfer Assistive Grab Bars Devices Rehab OT IP prob,goals,plan Problems Date of Evaluation: 01/01/24 Rehab Potential Rehab Potential Innapropriate for Skilled Therapy Discharge Plan OT Discharge Plan At this time, pt appears to be at her baseline with functional transfers and ADL independence. Pt can return home once she is medically stable per physician. Eval Complexity Eval Charge Codes 32795 - Low Complexity PHYSICIAN CERTIFICATION: I certify the specified therapy services for Carin Badillo are required, authorized, and reviewed every 30 days.
[2024-01-01 13:51] LABS: POC Glucose,Bedside 128 (70-110)
[2024-01-01] MEDS: VANCOMYCIN HCL 2,250 MG in 0.9 % SODIUM CHLORIDE 250 ML 125 MG IV (15:02)
--- NOTE | 2024-01-01 16:09 | PC.NURSE ---
pt was switched to o2 nc at 3l and was unable to maintain saturation. o2 saturation on 3 l 83%. o2 was increased to 4 l. o2 saturation has maintained 90-93% on 4 l.
[2024-01-01 17:01] LABS: POC Glucose,Bedside 101 (70-110)
--- NOTE | 2024-01-01 17:27 | PC.NURSE ---
[facility] delivered oxygen tank and adjusted trilogy settings. pt has been encouraged to use trilogy while sleeping during the day and night.
--- NOTE | 2024-01-02 13:13 | CARE MANAGER ---
Called and spoke with patient regarding recent discharge. Patient stated that she is doing ok and was able to obtain both new medications as prescribed as discharge. Patient has been contacted by [facility] for changes to trilogy. Reviewed patient's MD appts, as she was unaware of those. No questions or concerns voiced at time of call.
== END 2024-01-01 18:13 | disposition home or self-care (01) | DRG 602 ==
LOC: ER 12-28 00:44 → 2ND 12-28 01:25
PROVIDERS: Emergency Medicine; Internal Medicine Pulmonary Disease; Nurse Practitioner Family; Admitting Provider Internal Medicine Adolescent Medicine; Emergency Provider Internal Medicine Adolescent Medicine; PCP Internal Medicine; Visit Provider Internal Medicine Adolescent Medicine
DX: L03.311 Cellulitis of abdominal wall (principal); I50.33 Acute on chronic diastolic (congestive) heart failure; J96.22 Acute and chronic respiratory failure with hypercapnia; J96.21 Acute and chronic respiratory failure with hypoxia; F33.9 Major depressive disorder, recurrent, unspecified; Z68.45 Body mass index [BMI] 70 or greater, adult; J44.1 Chronic obstructive pulmonary disease with (acute) exacerbation; Z93.0 Tracheostomy status; Z99.81 Dependence on supplemental oxygen; Z86.16 Personal history of COVID-19; Z79.899 Other long term (current) drug therapy; F41.1 Generalized anxiety disorder; G47.00 Insomnia, unspecified; G62.9 Polyneuropathy, unspecified; E66.01 Morbid (severe) obesity due to excess calories; E11.40 Type 2 diabetes mellitus with diabetic neuropathy, unspecified; Z87.891 Personal history of nicotine dependence; I11.0 Hypertensive heart disease with heart failure; G43.909 Migraine, unspecified, not intractable, without status migrainosus; M79.3 Panniculitis, unspecified
CPT/HCPCS: 36415; 71045; 71275; 74177; 80048; 80053; 80202; 81001; 82803; 82962; 83605; 83735; 83880; 84145; 85007; 85025; 85027; 85651; 86140; 87040; 87070; 87205; 87636; 94640; 94660; 94761; 97162; 97165; 99291; J0696; J1170; J1650; J2270; J2405; J2550; J3370; J3475; J7620; Q9967

== ENCOUNTER 2024-01-15 11:43 | Outpatient (CLI) | payer MEDICAID, SELFPAY ==
[2024-01-15 20:07] LABS: Basophils % 0.4 % (0.1-2.0); Eosinophils % 0.2 % (0.1-12.0); Hematocrit 47.1 % (37.0-47.0); Hemoglobin 14.4 g/dL (12.2-16.2); Lymphocytes # 0.8 K/mm3 (0.7-4.5); Lymphocytes % 12.1 % (10-50); Mean Corpuscular HGB Conc 30.5 g/dL (31.8-35.4); Mean Corpuscular Hemoglobin 28.1 pg (27.0-31.2); Mean Corpuscular Volume 92.4 fl (81-99); Mean Platelet Volume 8.9 fl (7.4-10.4); Monocytes # 0.3 K/mm3 (0.1-1.0); Monocytes % 5.4 % (1.7-9.3); Neutrophils # 5.1 K/mm3 (1.8-7.8); Platelet Count 238 K/mm3 (142-424); Red Cell Distribution Width 17.2 % (11.5-17.5); White Blood Count 6.2 K/mm3 (4.8-10.8)
[2024-01-15 20:26] LABS: Alanine Aminotransferase 19 U/L (12-78); Albumin Level 4.3 g/dl (3.5-5.0); Albumin/Globulin Ratio 1.1 (1.1-1.8); Alkaline Phosphatase 78 U/L (38-126); Anion Gap 13.4 mEq/L (5-15); Aspartate Amino Transferase 25 U/L (14-36); Bilirubin,Total 0.5 mg/dl (0.2-1.3); Blood Urea Nitrogen 11 mg/dl (7-17); Calcium 9.3 mg/dl (8.4-10.2); Carbon Dioxide 26 mmol/L (22.0-30.0); Chloride 104 mmol/L (98-107); Estimated Glomerular Filt Rate 76 ml/min (>60); GFR (African American) 92 ML/MIN (>60); Globulin 3.8 g/dL (1.3-3.2); Glucose 98 mg/dl (74-100); Magnesium 1.7 mg/dl (1.6-2.3); Potassium 4.4 mmoL/L (3.5-5.1); Sodium 139 mmol/L (136-145); Total Protein,Serum 8.1 g/dl (6.3-8.2)
== END 2024-01-15 23:59 | disposition home or self-care (01) ==
LOC: LAB.DROPOF 01-16 14:54
PROVIDERS: PCP Internal Medicine; Visit Provider Internal Medicine
DX: J45.40 Moderate persistent asthma, uncomplicated (principal); E78.5 Hyperlipidemia, unspecified
CPT/HCPCS: 80053; 83735; 85025

== ENCOUNTER 2024-02-14 13:45 | Outpatient (CLI) | payer MEDICAID, SELFPAY ==
[2024-02-14 18:24] LABS: Creatinine,Urine Random 75 mg/dL (Not Estab.); Microalbumin < 6.000 mg/L (0-16.7)
== END 2024-02-14 23:59 | disposition home or self-care (01) ==
LOC: LAB.DROPOF 02-15 09:59
PROVIDERS: PCP Internal Medicine; Visit Provider Internal Medicine
DX: E11.40 Type 2 diabetes mellitus with diabetic neuropathy, unspecified (principal); Z79.85 Long-term (current) use of injectable non-insulin antidiabetic drugs
CPT/HCPCS: 82043; 82570

== ENCOUNTER 2024-04-16 13:35 | Outpatient (CLI) | payer MEDICAID, SELFPAY ==
[2024-04-16 18:59] LABS: Coronavirus 19, PCR Not Detected (NotDetected); Influenza A, PCR Not Detected (NotDetected); Influenza B, PCR Not Detected (NotDetected)
== END 2024-04-16 23:59 | disposition home or self-care (01) ==
LOC: LAB.DROPOF 04-17 10:55
PROVIDERS: PCP Internal Medicine; Visit Provider Internal Medicine
DX: R69 Illness, unspecified (principal)
CPT/HCPCS: 87636

== ENCOUNTER 2024-05-24 10:32 | Outpatient (CLI) | payer MEDICAID, SELFPAY ==
--- NOTE | 2024-05-24 10:33 | FL_ITS ---
FINAL REPORT CLINICAL HISTORY: dysphagia 83.37 mGy 1019.50 DAP 51 secs fluoro FINDINGS: ESOPHAGRAM HISTORY: Abdominal pain, nausea. PROCEDURE: The patient ingested barium. Effervescent crystals were also administered. Spot and overhead films were obtained. FINDINGS: The esophagus is normal. There is no hiatal hernia. There is no gastroesophageal reflux. Peristalsis is normal. The patient has a tracheostomy. A 13 mm barium tablet was administered which passed to the entirety of the esophagus. However, the patient experienced difficulty moving the barium tablet from her mouth into the esophagus. IMPRESSION: Normal esophagram. Some difficulty with the patient moving a barium tablet from the mouth into the esophagus. Fluoroscopy time: 51 seconds Radiation exposure in Reference air Kerma: 83.37 mGy Fluoro dose: 1019.50 DAP in [employer] reviewed , interpreted and dictated by Dr. Hyatt. Transcribed by Tray Hernández PA-C. Reviewed, Interpreted and Dictated by Pat Hyatt MD Transcribed by OSIRIS Portillo Authenticated and [facility]
[2024-05-24] MEDS: E-Z-GASII EFFERVESCENT GRANULES;1PK 1 EACH PO (11:36)
[2024-05-24] MEDS: BARIUM SULFATE(LIQUID E-Z-PAQUE);355ML BOTTLE 355 ML PO (11:36)
[2024-05-24] MEDS: BARIUM SULFATE (E-Z-HD 340GM);135ML BOTTLE 135 ML PO (11:36)
== END 2024-05-24 23:59 | disposition home or self-care (01) ==
LOC: RAD 10:33
PROVIDERS: PCP Internal Medicine; Visit Provider Nurse Practitioner
DX: R13.10 Dysphagia, unspecified (principal)
CPT/HCPCS: 74220

== ENCOUNTER 2024-05-30 13:00 | Outpatient (RCR) | payer MEDICAID, SELFPAY ==
--- NOTE | 2024-05-20 14:08 | HMH.PTOPWND ---
Rehab Outpt Wound Evaluation Rehab OP Wound Evaluation Start: 05/20/24 13:54 Freq: Status: Active Protocol: Document 05/20/24 13:54 EVE (Rec: 05/20/24 14:05 PHOCHINEDU [id number]) E-signed By Dagoberto Mei, PT Subjective/History History History This is the initial PT eval for Carin Badillo, 49 yowf who presents with c/o B LE and abdominal lymphedema which has been present for many years, but worse over the past 3 -4 weeks. She reports she has been dealing with cellulitis in her abdomen recently which has exacerbated her LE lymphedema. She reports R LE is typically worse than her L. She has hx of multiple bouts of similar abdominal cellulitis. She has PMH of partial hysterectomy, multiple abdominal surgeries ( ~9), L TKA, CHF, Appy, COPD, HTN, has indwelling tracheostomy tube and uses a PMSV. Subjective Subjective Current pain 4/10, at worst pain is 8/10. No TTP noted to B lower legs at this time. R LE with mild erythema and moderate skin dryness noted. L side of abdominal wall noted to have moderate increased erythema, but no increased calor. New diagnosis of cancer in past 12 No months? Lymphedema Eval Classification of Lymphedema Secondary Lymphedema Yes Stemmer's sign Stemmer's Sign yes Stage of Lymphedema Lymphedema stages Stage II (Pitting edema, increased fibrosis w/ decreased pitting) Skin Changes Dry Skin Yes Skin Folds Yes Hyperkeratosis Yes Redness Yes Brittle Uneven Nails Yes Discoloration of Skin Yes Other Changes Yes Pain Scale Pain Scale (0-10) 8 Affected Extremities Areas Affected by Lymphedema/Edema Abdomen,Right Lower Extremity, Left Lower Extremity Lower Extremity Measurements Right MTP Measurement (cm) 25.8 Heel Measurement (cm) 35.2 10 cm Proximal to Lateral Malleoli 40.5 Measurement (cm) 20 cm Proximal to Lateral Malleoli 56.9 Measurement (cm) 30 cm Proximal to Lateral Malleoli 60.0 Measurement (cm) 40 cm Proximal to Lateral Malleoli 0 Measurement (cm) 50 cm Proximal to Lateral Malleoli 0 Measurement (cm) 60 cm Proximal to Lateral Malleoli 0 Measurement (cm) Lower Extremity Measurement Total (cm) 218.4 Left MTP Measurement (cm) 25.0 Heel Measurement (cm) 35.4 10 cm Proximal to Lateral Malleoli 33.8 Measurement (cm) 20 cm Proximal to Lateral Malleoli 50.4 Measurement (cm) 30 cm Proximal to Lateral Malleoli 57.0 Measurement (cm) 40 cm Proximal to Lateral Malleoli 0 Measurement (cm) 50 cm Proximal to Lateral Malleoli 0 Measurement (cm) 60 cm Proximal to Lateral Malleoli 0 Measurement (cm) Lower Extremity Measurement Total (cm) 201.6 Manual Lymphatic Drainage Treatment Area MLD Treatment Area Abdomen,Right Lower Extremity, Left Lower Extremity Wound Problems/Impairments Impairments Problems/Impairmments Impaired Endurance,Impaired Gait Pattern,Impaired Walking, Impaired Standing,Increased Edema,Lymphedema Present, Subjective C/O Pain,Impaired Self Care/Self Management Prognosis Rehab Potential Good Comment Skilled therapy indicated to reduce overall edema burden and aid pt return to PLOF. Clinical Impression Consistent with Diagnosis Yes Short Term Goals Number of Weeks 4 Decrease Edema Yes: No pitting edema B LE Decrease Subjective C/O Pain Yes: 6/10 B LE at worst Patient to Understand Lymphedema Yes Treatment and Exercises Decrease Girth Measurments by (cm) Yes: B LE total by 5 cm ea Detention Goals Number of Weeks 8 Decrease Lymphedema Yes: MILD fibrotic edema in B LE and abdomen Decrease Subjective C/O Pain Yes: 4/10 at worst B LE Patient to be Ind w/ HEP Yes Patient to Adhere Lymphedema Precautions Yes Decrease Girth Measurments by (cm) Yes: B LE total by 15 cm ea Outpatient Therapy Plan of Care Treatment Plan May Include Therapeutic Exercise Including Home Yes Exercise Program Manual Therapy Techniques Yes Neuromuscular Re-education Yes Therapeutic Activities to Return to Yes Previous Functional/Work Level ADL/Self Care Education Yes Orthotics/Bracing/Splinting Yes Manual Lymphatic Drainage Yes Eval/Re-Eval Yes Frequency Times per week 2 Duration Number of Weeks 8 Addendums This patient is a candidate for social No or vocational rehab? Patient/Guardian verbally acknowledges Yes understanding of treatment program and consents to further treatment? Patient/Guardian verbally acknowledges Yes understanding of diagnosis, prognosis and goals for treatment? Eval Complexity PT Charges 23428 - High Complexity PHYSICIAN CERTIFICATION: I certify the specified therapy services for Carin Morgan Badillo are required, authorized, and reviewed every 30 days.
== END 2024-05-30 23:59 | disposition home or self-care (01) ==
LOC: PT 13:00
PROVIDERS: PCP Internal Medicine; Visit Provider Internal Medicine
DX: I89.0 Lymphedema, not elsewhere classified (principal)
CPT/HCPCS: 97140; 97163

== ENCOUNTER 2024-08-11 23:25 | Observation (INO) | payer MEDICAID, SELFPAY ==
[2024-08-11 23:48] VITALS: BP 139/88; PULSE 98; RESP 20; TEMP 37.3; O2SAT 93; BMI 69.9
[2024-08-11 23:54] VITALS: BP 139/88; PULSE 101; O2SAT 93
[2024-08-12] VITALS (15 sets, daily range): BP systolic 114–168; BP diastolic 53–95; PULSE 68–106; RESP 17–24; TEMP 36.4–37.3; O2SAT 90–97; BMI 70.9; BMI 70.3
--- NOTE | 2024-08-12 | ECG_ITS ---
APPROVED REPORT Exam: Resting ECG HR:92 bpm ECG Measurements Heart Rate 92 AXES OR 179 P 69 QRSd 97 QRS 70 QT 351 T 73 QTc 400 Conclusion SINUS RHYTHM MODERATE ST DEPRESSION [0.05+ mV ST DEPRESSION] ABNORMAL ECG Similar to previous, no STEMI Electronically signed by : VY SIMONS, 08/12/2024 06:12:38
[2024-08-12 00:36] LABS: Basophils % 0.2 % (0.1-2.0); Eosinophils # 0.1 K/mm3 (0.0-0.4); Hematocrit 43.2 % (37.0-47.0); Hemoglobin 13.2 g/dL (12.2-16.2); Lymphocytes # 1.4 K/mm3 (0.7-4.5); Lymphocytes % 13.8 % (10-50); Mean Corpuscular HGB Conc 30.6 g/dL (31.8-35.4); Mean Corpuscular Hemoglobin 28.6 pg (27.0-31.2); Mean Corpuscular Volume 93.7 fl (81-99); Mean Platelet Volume 9.9 fl (7.4-10.4); Monocytes # 0.5 K/mm3 (0.1-1.0); Monocytes % 5.2 % (1.7-9.3); Neutrophils # 7.9 K/mm3 (1.8-7.8); Neutrophils % 79.2 % (37.0-80.0); Platelet Count 202 K/mm3 (142-424); Red Blood Count 4.61 M/mm3 (4.20-5.40); Red Cell Distribution Width 14.9 % (11.5-17.5)
[2024-08-12 00:49] LABS: Albumin Level 4.2 g/dl (3.5-5.0); Chloride 100 mmol/L (98-107); Potassium 4.4 mmoL/L (3.5-5.1); Sodium 138 mmol/L (136-145)
[2024-08-12 00:51] LABS: Alanine Aminotransferase 20 U/L (12-78); Aspartate Amino Transferase 24 U/L (14-36); Blood Urea Nitrogen 12 mg/dl (7-17); Creatinine Clearance Estimated 56 mL/min (50-200); Estimated Glomerular Filt Rate 66 ml/min (>60); GFR (African American) 80 ML/MIN (>60)
[2024-08-12 00:52] LABS: Albumin/Globulin Ratio 1.3 (1.1-1.8); Alkaline Phosphatase 81 U/L (38-126); Anion Gap 7.4 mEq/L (5-15); Bilirubin,Total 0.2 mg/dl (0.2-1.3); Calcium 8.5 mg/dl (8.4-10.2); Carbon Dioxide 35 mmol/L (22.0-30.0); Globulin 3.3 g/dL (1.3-3.2); Glucose 112 mg/dl (74-100); Lipase 39 U/L (23-300); Total Protein,Serum 7.5 g/dl (6.3-8.2)
[2024-08-12 00:53] LABS: Lactic Acid 1.2 mmol/L (0.7-2.1)
[2024-08-12 00:58] LABS: C-Reactive Protein 67.6 mg/L (0-4)
--- NOTE | 2024-08-12 00:58 | CT_ITS ---
PROCEDURE INFORMATION: Exam: CT Abdomen And Pelvis With Contrast Exam date and time: 08/12/2024 12:10 AM Age: 49 years old Clinical indication: Abdominal pain; Generalized; Additional info: Generalized pain TECHNIQUE: Imaging protocol: Computed tomography of the abdomen and pelvis with contrast. 3D rendering (Not supervised by radiologist): MIP and/or 3D reconstructed images were created by the technologist. Radiation optimization: All CT scans at this facility use at least one of these dose optimization techniques: automated exposure control; mA and/or kV adjustment per patient size (includes targeted exams where dose is matched to clinical indication); or iterative reconstruction. Contrast material: ISOVUE; Contrast volume: 70 ml; Contrast route: IV; COMPARISON: CT ABDOMEN PELVIS W CON 12/28/2023 12:02 AM FINDINGS: Lungs: Modest subpleural groundglass opacity left lung base not present on prior study 12/28/2023. Liver: Normal. No mass. Gallbladder and biliary ducts: Normal. No calcified stones. No ductal dilation. Pancreas: Normal. No ductal dilation. Spleen: Normal. No splenomegaly. Adrenal glands: Normal. No mass. Kidneys and ureters: Normal. No hydronephrosis. Stomach and bowel: Diverticulosis sigmoid colon. Appendix: No evidence of appendicitis. Intraperitoneal space: Unremarkable. No free air. No significant fluid collection. Vasculature: Unremarkable. No abdominal aortic aneurysm. Lymph nodes: Unremarkable. No enlarged lymph nodes. Urinary bladder: Unremarkable as visualized. Reproductive: Unremarkable as visualized. Bones/joints: Unremarkable. No acute fracture. Soft tissues: Unremarkable. IMPRESSION: Possible developing infiltrate left lung base. Diverticulosis without evidence of diverticulitis.
--- NOTE | 2024-08-12 00:58 | CT_ITS ---
PROCEDURE INFORMATION: Exam: CTA Chest With Contrast Exam date and time: 08/12/2024 12:10 AM Age: 49 years old Clinical indication: Shortness of breath and other: Leg swelling; Additional info: SOA leg swelling TECHNIQUE: Imaging protocol: Computed tomographic angiography of the chest with contrast. Exam focused on the arteries. 3D rendering (Not supervised by radiologist): MIP and/or 3D reconstructed images were created by the technologist. Radiation optimization: All CT scans at this facility use at least one of these dose optimization techniques: automated exposure control; mA and/or kV adjustment per patient size (includes targeted exams where dose is matched to clinical indication); or iterative reconstruction. Contrast material: ISOUVE 370; Contrast volume: 70 ml; Contrast route: INTRAVENOUS (IV); COMPARISON: CT ANGIO CHEST PE PROTOCOL 12/28/2023 12:02 AM FINDINGS: Pulmonary arteries: Normal. No pulmonary emboli. Aorta: Unremarkable. No aortic aneurysm. No aortic dissection. Tracheostomy. Adenopathy within the prevascular distribution. Patchy groundglass opacity peripheral left lung. Pleural spaces: Unremarkable. No pneumothorax. No pleural effusion. Heart: Unremarkable. No cardiomegaly. No pericardial effusion. Bones/joints: Unremarkable. No acute fracture. Soft tissues: Unremarkable. IMPRESSION: Patchy infiltrates left lung. No embolism.
[2024-08-12] MEDS: ASPIRIN 81MG CHEWABLE TABLET 324 MG PO (01:10)
[2024-08-12 01:18] LABS: Prothrombin Time 10.2 seconds (10.1-12.5)
[2024-08-12 01:26] LABS: NT Pro Brain Natriuretic Pep. 127 pg/mL (0-125)
[2024-08-12] MEDS: IOPAMIDOL-370 (76%);100ML BOTTLE 70 ML IV (01:27)
[2024-08-12] MEDS: SODIUM CHLORIDE 0.9% 10ML SYR (RAD ONLY) 10 ML IV (01:27)
[2024-08-12] MEDS: 0.9 % SODIUM CHLORIDE 50 ML VIAL 40 ML IV (01:27)
[2024-08-12 01:30] LABS: Troponin I < 0.01 ng/ml (0.00-0.034)
[2024-08-12] MEDS: IPRATROPIUM/ALBUTEROL 3 ML NEB 9 ML IH (01:30)
[2024-08-12 01:34] LABS: Lactate Venous 1.5 mmol/L (0.4-2.0); VBG Base Excess -2.5 mmol/L (-2.4-2.3); VBG HCO3 24.2 mmol/L (23-30); VBG Oxygen Saturation 52.2 % (50-70); VBG PH 7.28 mmol/L (7.31-7.41); VBG PO2 28.7 mmol/L (28-40); VBG Total CO2 25.9 mmol/L (23-27)
[2024-08-12 02:37] LABS: Erythrocyte Sedimentation Rate 15 mm/hr (0-20)
[2024-08-12] MEDS: METHYLPREDNISOLONE SOD SUCC 125MG VIAL 125 MG IV (02:43)
[2024-08-12] MEDS: BUMETANIDE 1MG/4ML VIAL 1 MG IV (02:43)
[2024-08-12] MEDS: AZITHROMYCIN 250MG TABLET 500 MG PO ×2 (02:45→09:05)
[2024-08-12] MEDS: CEFDINIR 300MG CAPSULE 300 MG PO (02:45)
--- NOTE | 2024-08-12 03:00 | P.HP_ITS ---
<Statement entered by Dean Ornelas MD - 08/12/24 16:58> Rounded on patient after nurse practitioner. Personally examined and interviewed patient. Agree with exam findings and care plan as documented. Doing better this morning. Pulmonology evaluating. Anticipate transitioning to oral antibiotics, may discharge later today. Patient at baseline level of function and mentation on morning rounds History of Present Illness *Admission Date: 08/12/24 *Reason for visit:: shortness of breath *History of present illness: A 49-year-old female, tracheostomy-dependent since COVID, with a history of heart failure with preserved ejection fraction (HFpEF, LVEF 67% on 07/22/2024 per echo), obstructive sleep apnea (IRLANDA), morbid obesity (BMI 71, weight 170 kg), obesity hypoventilation syndrome (OHS), COPD, and lymphedema, presents to the emergency department with multiple complaints. 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 She denies significant recent weight gain ( I know I have not gotten that fat in the last 2 weeks ), corroborated by PCP records from Dr. Hussein showing her weight at 170 kg on 07/26/2024, consistent with today?s 170 kg. Upon further questioning, she clarified that the gradual worsening of this swelling, combined with new shortness of breath?described as a sensation of someone pushing up on her diaphragm?prompted her ER visit tonight. She also reports chills, a mildly worsened cough compared to baseline, and reduced urine output, with increased dyspnea when lying flat beyond her usual OHS symptoms. She denies chest pain, vomiting, diarrhea, dysuria, hematuria, or known illness exposure, and states she takes all home medications as prescribed, including bumetanide 2 mg PO daily for HFpEF. On exam, she is hemodynamically stable, afebrile, obese, with a well-appearing tracheostomy site, diminished breath sounds throughout (no adventitious sounds), limited abdominal exam due to body habitus (no tenderness, rebound, or guarding), no obvious pitting edema in the lower extremities, and neurovascularly intact (GCS 15). Labs on 08/11/24 show WBC 10.0, CO2 35 mEq/L, glucose 112 mg/dL, CRP 67.6 mg/L (elevated), BNP 127 pg/mL (elevated, similar to prior admission), and normal troponin (<0.01 ng/mL). A VBG reveals pH 7.28, pCO2 53.0 mmHg, HCO3 24.2 mEq/L, and O2 saturation 52.2%, indicating respiratory acidosis with hypercarbia. ECG shows normal sinus rhythm (rate 92), unchanged from prior. CT abdomen impression notes a possible developing infiltrate at the left lung base and diverticulosis without diverticulitis, while CTA chest impression confirms patchy infiltrates in the left lung with no embolism; no cellulitis or lymphedema mass is evident, possibly limited by habitus. She received DuoNebs and Solu-Medrol for COPD exacerbation, a single dose of IV Bumex 1 mg for fluid overload, and cefdinir/azithromycin for pneumonia, with a trach collar for oxygenation. On reassessment, she feels somewhat improved but requires admission for respiratory acidosis, COPD exacerbation, and fluid overload management, complicated by HFpEF (LVEF 67%), OHS, and lymphedema (BMI 71, 170 kg stable per 07/26/2024 visit with PCP). She is bringing her home BiPAP and agrees to admission after discussion with the hospitalist. [facility] Disclaimer: The information contained in this section may have been updated after the patient was seen, as this information can be updated by other users. Medical History Otitis externa of left ear Dysphagia Hearing difficulty of left ear Otalgia, left ear Asthma Acute on chronic respiratory failure with hypoxia and hypercapnia Palpitations Ear pain, right Acute and chronic respiratory failure with hypercapnia PTSD (post-traumatic stress disorder) Chest pain Generalized anxiety disorder Recurrent major depression resistant to treatment Sleep apnea History of ectopic History of hyperkalemia Diastolic congestive heart failure Paranoid schizophrenia Uses bilevel positive airway pressure (BPAP) ventilation at home History of sleep apnea History of asthma Cellulitis of right lower extremity Acute and chronic respiratory failure with hypercapnia Pneumonia Acute and chronic respiratory failure Right lower lobe pneumonia History of smoking 30 or more pack years Obesity hypoventilation syndrome Chronic respiratory failure with hypercapnia Severe sepsis COVID-19 Acute and chronic respiratory failure Pneumonia Tracheostomy in place Edema Sinus tachycardia Dizziness Diastolic dysfunction Acute on chronic diastolic heart failure Respiratory failure with hypoxia and hypercapnia Congestive heart failure Acute on chronic diastolic heart failure Elevated d-dimer PAC (premature atrial contraction) Chest pain Dyspnea HTN (hypertension) COPD (chronic obstructive pulmonary disease) Tobacco abuse Abnormal stress test SOB (shortness of breath) Angina, class III Obesity Hypothyroidism (~11/21/17) Asthma Insomnia Depression Anxiety Neuropathy Surgical History History of tracheostomy History of appendectomy History of cholecystectomy History of colonoscopy History of left knee surgery History of hysterectomy Family History Other No significant family history Social History Smoking Status: Unknown if ever smoked smoking status stop date: 02/2022 alcohol intake: former substance use type: marijuana current occupational status: disabled Travel in the last 8 weeks: None household members: family housing: apartment number of children: 0 current occupational exposures/hazards: No caffeine: Yes Have you lived/traveled outside [place] in past 30 days?: No Contact w/someone who lives/traveled outside [place] past 30 days?: No Exposure to someone with infectious disease in past 14 days?: No Do you have a fever (greater than 100.4 F or 38 C)?: No Have you tested positive for COVID-19: No Exposed to someone with COVID-19 in past 14 days?: No Do you have a sore throat?: No Do you have a cough?: No Do you have any weakness?: No Do you have any diarrhea?: No Are you experiencing any unusual bleeding?: No Do you have any muscle aches/pain?: No Do you have any abdominal pain?: No Are you experiencing loss of taste or smell?: No Other Medical History Have you received the Flu Vaccine for this season: No Have you received the Pneumonia Vaccine: No Review of Systems Review of Systems Review of systems (narrative): 13 point review of systems negative except as listed in HPI Meds Home Medications and Allergies Home Medications ?Medication ?Instructions ?Recorded ?Confirmed ?Type blood sugar diagnostic (OneTouch 01/01/23 08/08/24 History Verio test strips) lancets 33 gauge (OneTouch Delica 01/01/23 08/08/24 History Plus Lancet) ipratropium 0.5 mg-albuterol 3 mg 3 ml inhalation QID PRN shortness 02/09/23 08/12/24 Rx (2.5 mg base)/3 mL nebulization of breath or wheezing 90 days #270 soln mL duloxetine 30 mg capsule,delayed 90 mg (3 x 30 mg) PO DAILY Mood 60 09/11/23 08/12/24 Rx release days #180 caps spironolactone 50 mg tablet 50 mg PO DAILY 90 days #90 tabs 11/09/23 08/12/24 Rx (Aldactone) cyclobenzaprine 5 mg tablet 5 mg PO TID Muscle relaxer 90 days 11/24/23 08/12/24 Rx #270 tabs bisacodyl 5 mg tablet,delayed 5 mg PO HS PRN constipation 15 11/30/23 08/12/24 Rx release (Dulcolax (bisacodyl)) days #15 tabs fluticasone propionate 50 1 spray intranasal DAILY #16 grams 12/22/23 08/12/24 Rx mcg/actuation nasal spray,suspension (Flonase Allergy Relief) omeprazole 40 mg capsule,delayed 40 mg PO BID 12/28/23 08/12/24 History release bumetanide 1 mg tablet 2 mg (2 x 1 mg) PO DAILY 30 days 01/01/24 08/12/24 Rx #60 tabs acetylcysteine 600 mg capsule 600 mg PO DAILY PRN cough #30 caps 01/22/24 08/12/24 Rx linaclotide 145 mcg capsule 145 mcg PO DAILY #90 caps 02/16/24 08/12/24 Rx (Linzess) rimegepant 75 mg disintegrating See Rx Instructions .Route 03/22/24 08/12/24 Rx tablet (Nurtec ODT) .COMPLEX #40 tabs nbjirjkm-jznjgn-ZO-thonzonm 3.3 4 drp otic (ear) TID #10 mL 04/16/24 08/12/24 Rx mg-3 mg-10 mg-0.5 mg/mL ear drops,susp (Cortisporin-TC) losartan 25 mg tablet 25 mg PO DAILY #30 tabs 05/15/24 08/12/24 Rx propranolol 10 mg tablet 10 mg PO BID #60 tabs 05/15/24 08/12/24 Rx lamotrigine 100 mg tablet 100 mg PO DAILY #30 tabs 06/04/24 08/12/24 Rx quetiapine 100 mg tablet (Seroquel) 200 mg (2 x 100 mg) PO QHS #60 tabs 06/04/24 08/12/24 Rx ziprasidone HCl 40 mg capsule 40 mg PO BID #60 caps 06/04/24 08/12/24 Rx (Geodon) dextromethorphan-guaifenesin 5 10 ml PO Q8H PRN cough #500 mL 06/13/24 08/12/24 Rx mg-100 mg/5 mL oral liquid (Tussin DM Max) levothyroxine 25 mcg tablet See Rx Instructions .Route 06/13/24 08/12/24 Rx .COMPLEX #90 tabs diazepam 5 mg tablet 2.5 mg (1/2 x 5 mg) PO TID 30 days 07/16/24 08/12/24 Rx #45 tabs gabapentin 800 mg tablet See Rx Instructions .Route 07/16/24 08/12/24 Rx .COMPLEX #90 tabs ondansetron 4 mg disintegrating See Rx Instructions .Route 07/16/24 08/12/24 Rx tablet .COMPLEX #30 tabs oxycodone-acetaminophen 10 mg-325 1 tab PO QID PRN pain 30 days #120 07/16/24 08/12/24 Rx mg tablet tabs promethazine 25 mg tablet See Rx Instructions .Route 07/16/24 08/12/24 Rx .COMPLEX #30 tabs albuterol sulfate 90 mcg/actuation 2 inh inhalation Q6H PRN shortness 07/22/24 08/12/24 Rx aerosol inhaler (Ventolin HFA) of breath or wheezing #18 grams fluticasone fur. 100 mcg-umeclid 1 inh inhalation DAILY 90 days #90 07/22/24 08/12/24 Rx 62.5 mcg-vilant 25 mcg blisters inhalat.powder (Trelegy Ellipta) levofloxacin 500 mg tablet 500 mg PO DAILY LYMPHADEMA #10 tabs 07/22/24 08/12/24 Rx triamcinolone acetonide 0.5 % See Rx Instructions .Route 07/22/24 08/12/24 Rx topical cream .COMPLEX #15 grams rivaroxaban 10 mg tablet (Xarelto) 10 mg PO DAILY #10 tabs 07/26/24 08/12/24 Rx tirzepatide 2.5 mg/0.5 mL 2.5 mg (0.5 mL) SQ WEEKLY #2.5 mL 08/06/24 08/12/24 Rx subcutaneous pen injector sumatriptan succinate 100 mg tablet See Rx Instructions .Route 08/09/24 08/12/24 Rx .COMPLEX #10 tabs New Prescriptions to Start Prescriptions: Allergies Allergy/AdvReac Type Severity Reaction Status Date / Time doxycycline Allergy Severe Blister Verified 07/26/24 14:57 Sulfa (Sulfonamide AdvReac Intermediate Rash Verified 07/26/24 14:57 Antibiotics) amoxicillin AdvReac Verified 07/26/24 14:57 nitrofurantoin (From AdvReac Verified 07/26/24 14:57 Macrobid) Exam Data for Last 24 hours Vital signs and Labs for Last 24 Hours: Temp Pulse Resp BP Pulse Ox O2 Del Method O2 Flow Rate 99.1 F 95 H 20 145/83 H 90 L Trach Mask 3.5 08/11/24 23:48 08/12/24 02:30 08/11/24 23:48 08/12/24 02:30 08/12/24 02:30 08/12/24 01:30 08/12/24 01:30 Laboratory Results - last 24 hr 08/11/24 23:50: WBC 10.0, RBC 4.61, Hgb 13.2, Hct 43.2, MCV 93.7, MCH 28.6, MCHC 30.6 L, RDW 14.9, Plt Count 202, MPV 9.9, Neut % (Auto) 79.2, Lymph % (Auto) 13.8, [place] % (Auto) 5.2, Eos % (Auto) 1.0, Baso % (Auto) 0.2, Neut # (Auto) 7.9 H, Lymph # (Auto) 1.4, [place] # (Auto) 0.5, Eos # (Auto) 0.1, Baso # (Auto) 0.0, ESR 15, PT 10.2, INR 0.90, Sodium 138, Potassium 4.4, Chloride 100, Carbon Dioxide 35 H, Anion Gap 7.4, BUN 12, Creatinine 0.90, Estimated Creat Clear 56, Estimated GFR 66, Est GFR ( Amer) 80, Glucose 112 H, Lactate 1.2, Calcium 8.5, Total Bilirubin 0.2, AST 24, ALT 20, Alkaline Phosphatase 81, C-Reactive Protein 67.6 H, Total Protein 7.5, Albumin 4.2, Globulin 3.3 H, Albumin/Globulin Ratio 1.3, Lipase 39 08/11/24 23:58: Troponin I < 0.01, NT-Pro-B Natriuret Pep 127 H 08/12/24 00:59: VBG pH 7.28 L, VBG pCO2 53.0 H, VBG pO2 28.7, VBG HCO3 24.2, VBG Total CO2 25.9, VBG O2 Saturation 52.2, VBG Base Excess -2.5 L, VBG Lactic Acid 1.5 I & O for Last 24 hours: Intake & Output 08/09/24 08/10/24 08/12/24 08/12/24 23:59 23:59 00:59 23:59 Weight 167.829 kg Constitutional Constitutional: mild distress, morbidly obese and cooperative *Routine HEENT Exam Head: Present normocephalic Eye: Present PERRL and normal accommodation ENT: Present mucous membranes moist Comments: Presence of tracheostomy *Routine Respiratory Exam Respiratory: Present accessory muscle use *Routine Cardiovascular Exam Cardiovascular: Present Normal S1 and Normal S2 *Routine Abdominal Exam Abdominal: Present obese *Routine Rectal Exam Rectal:: deferred *Routine Genitalia Exam Genitalia:: deferred Assessment and Plan *Assessment and plan (1) COPD exacerbation: Status: Acute Category: Medical Code(s): J44.1 - Chronic obstructive pulmonary disease with (acute) exacerbation (2) Acute on chronic respiratory failure with hypercapnia: Status: Acute Category: Medical Code(s): J96.22 - Acute and chronic respiratory failure with hypercapnia (3) History of tracheostomy: Status: Acute Category: Surgical Code(s): Z98.890 - Other specified postprocedural states (4) Generalized anxiety disorder with panic attacks: Status: Acute Category: Medical Code(s): F41.1 - Generalized anxiety disorder; F41.0 - Panic disorder [episodic paroxysmal anxiety] (5) Obesity, morbid, BMI 50 or higher: Status: Acute Category: Medical Code(s): E66.01 - Morbid (severe) obesity due to excess calories (6) Asthma: Status: Acute Qualifiers: Asthma complication type: unspecified Asthma persistence: persistent Asthma severity: moderate Qualified Code(s): J45.40 - Moderate persistent asthma, uncomplicated Category: Medical Code(s): J45.909 - Unspecified asthma, uncomplicated (7) (HFpEF) heart failure with preserved ejection fraction: Status: Acute Category: Medical Code(s): I50.30 - Unspecified diastolic (congestive) heart failure (8) Elevated brain natriuretic peptide (BNP) level: Status: Acute Category: Medical Code(s): R79.89 - Other specified abnormal findings of blood chemistry (9) Lymphedema: Status: Acute Category: Medical Code(s): I89.0 - Lymphedema, not elsewhere classified Plan * Chronic Obstructive Pulmonary Disease (COPD) Exacerbation with Hypercarbia: * Shortness of breath, worsened cough, VBG pH 7.28/pCO2 53.0/O2 sat 52.2%, improved with DuoNebs, trach-dependent COPD history, BMI 71. * Transition to home BiPAP (patient bringing) with settings via trach to target pCO2 <50 mmHg; adjust per respiratory therapy. * Administer prednisone 40 mg IV BID * Continue DuoNebs (albuterol/ipratropium) 6h and prn via trach. * Repeat VBG in 6 hours to assess pCO2 and oxygenation. * Monitor trach site and secretions; suction PRN to maintain airway patency. * Left Lung Pneumonia (Mild, Patchy): * CTA chest with patchy left lung infiltrates, CT abdomen with possible left lung base infiltrate, CRP 67.6, chills, cough, no leukocytosis. * Received cefdinir 300 mg PO daily and azithromycin 500 mg PO day * Will escalate antibiotics due to body habitus and comorbidities to IV Zosyn 3.375 every 6 * Order sputum culture via trach if obtainable to identify pathogen. * Repeat CXR in 24-48 hours to monitor infiltrate progression. * Consult pulmonology if no improvement or infiltrates worsen. * Heart Failure with Preserved Ejection Fraction (HFpEF) with Fluid Overload: * Increased abdominal/leg swelling, reduced urine output, BNP 127, dyspnea when flat, HFpEF with LVEF 67% (07/22/2024), on bumetanide 2 mg PO daily, received 1 mg IV Bumex, 170 kg stable per 07/26/2024. * Escalate diuresis: administer bumetanide 2 mg IV q12h (equivalent to home 2 mg PO, adjusted for BMI 71); * Order echocardiogram only if clinical change (recent LVEF 67% on 07/22/2024); defer unless BNP rises significantly. * Weigh daily (baseline 170 kg, stable per 07/26/2024) to track fluid status; restrict sodium intake (<2 g/day). * Monitor electrolytes with BMP in 24 hours (CO2 35 elevated); check potassium and magnesium given diuretic dose and weight. * Consult cardiology for optimization if fluid overload persists or symptoms worsen. * Obesity Hypoventilation Syndrome (OHS): * Dyspnea when flat, pCO2 53.0, O2 sat 52.2%, morbid obesity (BMI 71, 170 kg stable per 07/26/2024), IRLANDA history. * Use home BiPAP as above to support ventilation; ensure compliance with trach settings. * Elevate head of bed to 30-45 degrees to reduce diaphragm pressure from abdominal girth. * Monitor O2 sat q4h; titrate trach collar O2 to maintain >90% (current 52.2% insufficient). * Coordinate with pulmonology for long-term BiPAP settings and weight management post-discharge. * Chronic Lymphedema (Stable, Non-Cellulitic): * Longstanding swelling worse recently, no cellulitis on CT/exam, lymphedema history, BMI 71, 170 kg stable. * No antibiotics needed (no cellulitis); monitor for erythema, heat, or induration. * Order compression therapy evaluation if feasible with 170 kg weight and habitus. * Assess contribution of fluid overload (HFpEF) vs. lymphedema with diuresis response; stable weight (170 kg) suggests fluid shift. * Refer to outpatient lymphedema specialist for management. * Diverticulosis (Stable): * CT abdomen with diverticulosis, no diverticulitis, no acute abdominal symptoms. * No acute intervention; maintain regular diet unless symptoms (e.g., pain, fever) develop.. * Defer further workup unless gastrointestinal symptoms arise. * Disposition: * COPD exacerbation, pneumonia, fluid overload, and hypercarbia requiring inpatient care in trach-dependent patient with BMI 71 and 170 kg. * Admit to hospitalist service with BiPAP, antibiotics, and diuresis. * Plan discharge when hypercarbia resolves, O2 stable, swelling improved.
--- NOTE | 2024-08-12 03:00 | ED_ITS ---
Discharge Plan Disposition Patient Disposition: Admitted Clinical Impressions Clinical Impression: Acute on chronic respiratory failure with hypercapnia, COPD exacerbation Discharge ED Provider: Kerwin Quinn Adult HPI General Chief complaint: Skin/Abscess/Foreign Body Stated complaint: SOA,Cellulitis abdomin,right leg Time Seen by Provider: 08/12/24 00:48 Mode of Arrival: Wheelchair Description of Symptoms (Recalled from ER Triage Doc. by RN): Pt to ED with c/o cellulitis to her abdomen and lower extremities. Pt reports her belly has been hanging between her knees, and she has been unable to drive bc she can't fit in the drivers seat of her car. History of Present Illness HPI narrative: 49-year-old female trach dependent after COVID who has history of HFpEF, IRLANDA, morbid obesity, obesity hypoventilation, COPD, lymphedema presents to the ER with multiple complaints. Initially patient started telling me that she was concerned about cellulitis on her abdomen and lower extremities which she reports has been going on for more than a year but she thinks it is worse because her belly is hanging between her legs and she now cannot sit behind the steering wheel of her car which is new in the last few weeks. She states I know I have not gotten that fat in the last 2 weeks . When I asked her more about the cellulitis, she stated this has been gradually worsening but what caused her to come to the ER tonight was that she felt short of breath. She describes it as feeling like someone is pushing up on her diaphragm. She also states she is having chills and a mildly worsened cough than normal. She denies any chest pain, vomiting, diarrhea, dysuria, hematuria, she reports she is taking all home medications as prescribed. She reports no known exposure to illness. Related Data Home Medications ?Medication ?Instructions ?Recorded ?Confirmed blood sugar diagnostic (OneTouch 01/01/23 08/08/24 Verio test strips) lancets 33 gauge (OneTouch Delica 01/01/23 08/08/24 Plus Lancet) omeprazole 40 mg capsule,delayed 40 mg PO BID 12/28/23 08/08/24 release Previous Rx's ?Medication ?Instructions ?Recorded ipratropium 0.5 mg-albuterol 3 mg 3 ml inhalation QID PRN shortness 02/09/23 (2.5 mg base)/3 mL nebulization of breath or wheezing 90 days #270 soln mL duloxetine 30 mg capsule,delayed 90 mg (3 x 30 mg) PO DAILY Mood 60 09/11/23 release days #180 caps spironolactone 50 mg tablet 50 mg PO DAILY 90 days #90 tabs 11/09/23 (Aldactone) cyclobenzaprine 5 mg tablet 5 mg PO TID Muscle relaxer 90 days 11/24/23 #270 tabs bisacodyl 5 mg tablet,delayed 5 mg PO HS PRN constipation 15 11/30/23 release (Dulcolax (bisacodyl)) days #15 tabs fluticasone propionate 50 1 spray intranasal DAILY #16 grams 12/22/23 mcg/actuation nasal spray,suspension (Flonase Allergy Relief) bumetanide 1 mg tablet 2 mg (2 x 1 mg) PO DAILY 30 days 01/01/24 #60 tabs acetylcysteine 600 mg capsule 600 mg PO DAILY PRN cough #30 caps 01/22/24 linaclotide 145 mcg capsule 145 mcg PO DAILY #90 caps 02/16/24 (Linzess) rimegepant 75 mg disintegrating See Rx Instructions .Route 03/22/24 tablet (Nurtec ODT) .COMPLEX #40 tabs fcjtexff-fpvwwe-AW-thonzonm 3.3 4 drp otic (ear) TID #10 mL 04/16/24 mg-3 mg-10 mg-0.5 mg/mL ear drops,susp (Cortisporin-TC) losartan 25 mg tablet 25 mg PO DAILY #30 tabs 05/15/24 propranolol 10 mg tablet 10 mg PO BID #60 tabs 05/15/24 lamotrigine 100 mg tablet 100 mg PO DAILY #30 tabs 06/04/24 quetiapine 100 mg tablet (Seroquel) 200 mg (2 x 100 mg) PO QHS #60 tabs 06/04/24 ziprasidone HCl 40 mg capsule 40 mg PO BID #60 caps 06/04/24 (Geodon) dextromethorphan-guaifenesin 5 10 ml PO Q8H PRN cough #500 mL 06/13/24 mg-100 mg/5 mL oral liquid (Tussin DM Max) levothyroxine 25 mcg tablet See Rx Instructions .Route 06/13/24 .COMPLEX #90 tabs diazepam 5 mg tablet 2.5 mg (1/2 x 5 mg) PO TID 30 days 07/16/24 #45 tabs gabapentin 800 mg tablet See Rx Instructions .Route 07/16/24 .COMPLEX #90 tabs ondansetron 4 mg disintegrating See Rx Instructions .Route 07/16/24 tablet .COMPLEX #30 tabs oxycodone-acetaminophen 10 mg-325 1 tab PO QID PRN pain 30 days #120 07/16/24 mg tablet tabs promethazine 25 mg tablet See Rx Instructions .Route 07/16/24 .COMPLEX #30 tabs albuterol sulfate 90 mcg/actuation 2 inh inhalation Q6H PRN shortness 07/22/24 aerosol inhaler (Ventolin HFA) of breath or wheezing #18 grams fluticasone fur. 100 mcg-umeclid 1 inh inhalation DAILY 90 days #90 07/22/24 62.5 mcg-vilant 25 mcg blisters inhalat.powder (Trelegy Ellipta) levofloxacin 500 mg tablet 500 mg PO DAILY LYMPHADEMA #10 tabs 07/22/24 triamcinolone acetonide 0.5 % See Rx Instructions .Route 07/22/24 topical cream .COMPLEX #15 grams rivaroxaban 10 mg tablet (Xarelto) 10 mg PO DAILY #10 tabs 07/26/24 tirzepatide 2.5 mg/0.5 mL 2.5 mg (0.5 mL) SQ WEEKLY #2.5 mL 08/06/24 subcutaneous pen injector sumatriptan succinate 100 mg tablet See Rx Instructions .Route 08/09/24 .COMPLEX #10 tabs Allergies Allergy/AdvReac Type Severity Reaction Status Date / Time doxycycline Allergy Severe Blister Verified 07/26/24 14:57 Sulfa (Sulfonamide AdvReac Intermediate Rash Verified 07/26/24 14:57 Antibiotics) amoxicillin AdvReac Verified 07/26/24 14:57 nitrofurantoin (From AdvReac Verified 07/26/24 14:57 Macrobid) [facility] Disclaimer: The information contained in this section may have been updated after the patient was seen, as this information can be updated by other users. Medical History Otitis externa of left ear Dysphagia Hearing difficulty of left ear Otalgia, left ear Asthma Acute on chronic respiratory failure with hypoxia and hypercapnia Palpitations Ear pain, right Acute and chronic respiratory failure with hypercapnia PTSD (post-traumatic stress disorder) Chest pain Generalized anxiety disorder Recurrent major depression resistant to treatment Sleep apnea History of ectopic History of hyperkalemia Diastolic congestive heart failure Paranoid schizophrenia Uses bilevel positive airway pressure (BPAP) ventilation at home History of sleep apnea History of asthma Cellulitis of right lower extremity Acute and chronic respiratory failure with hypercapnia Pneumonia Acute and chronic respiratory failure Right lower lobe pneumonia History of smoking 30 or more pack years Obesity hypoventilation syndrome Chronic respiratory failure with hypercapnia Severe sepsis COVID-19 Acute and chronic respiratory failure Pneumonia Tracheostomy in place Edema Sinus tachycardia Dizziness Diastolic dysfunction Acute on chronic diastolic heart failure Respiratory failure with hypoxia and hypercapnia Congestive heart failure Acute on chronic diastolic heart failure Elevated d-dimer PAC (premature atrial contraction) Chest pain Dyspnea HTN (hypertension) COPD (chronic obstructive pulmonary disease) Tobacco abuse Abnormal stress test SOB (shortness of breath) Angina, class III Obesity Hypothyroidism (~11/21/17) Asthma Insomnia Depression Anxiety Neuropathy Surgical History History of tracheostomy History of appendectomy History of cholecystectomy History of colonoscopy History of left knee surgery History of hysterectomy Family History Other No significant family history Social History Smoking Status: Unknown if ever smoked smoking status stop date: 02/2022 alcohol intake: former substance use type: marijuana current occupational status: disabled Travel in the last 8 weeks: None household members: family housing: apartment number of children: 0 current occupational exposures/hazards: No caffeine: Yes Have you lived/traveled outside [place] in past 30 days?: No Contact w/someone who lives/traveled outside [place] past 30 days?: No Exposure to someone with infectious disease in past 14 days?: No Do you have a fever (greater than 100.4 F or 38 C)?: No Have you tested positive for COVID-19: No Exposed to someone with COVID-19 in past 14 days?: No Do you have a sore throat?: No Do you have a cough?: No Do you have any weakness?: No Do you have any diarrhea?: No Are you experiencing any unusual bleeding?: No Do you have any muscle aches/pain?: No Do you have any abdominal pain?: No Are you experiencing loss of taste or smell?: No Other Medical History Have you received the Flu Vaccine for this season: No Have you received the Pneumonia Vaccine: No ROS Obtained: Yes Systems reviewed as appropriate & no additional complaints except as documented Per HPI Physical Exam General General appearance: alert, in no apparent distress and obese Head Head exam: atraumatic and normocephalic Eye Eye exam: Present PERRL and EOMI ENT ENT exam: Present mucous membranes moist Neck Neck exam: Present normal inspection, full ROM and other (Tracheostomy in place, site well-appearing) Chest Chest inspection: Present symmetric chest wall rise Respiratory Respiratory exam: Absent normal lung sounds bilaterally (Breath sounds diminished throughout), respiratory distress, wheezes or stridor Cardiovascular Cardiovascular exam: Present regular rate and normal rhythm Abdominal Exam Abdominal exam: Present soft; Absent distention, tenderness, guarding or rebound Comment: Abdominal wall relatively normal-appearing aside from a few bruises reportedly from Ozempic injections Extremities Exam Extremities exam: Present full ROM; Absent edema (No obvious pitting edema) Neurological Exam Neurological exam: Present alert and oriented X3; Absent motor sensory deficit Psychiatric Psychiatric exam: Present normal affect and normal mood Skin Skin exam: Present warm and dry Medical Decision Making Medical Records Medical records reviewed: Yes I reviewed the patient's medical records. Screening: Per USPSTF and CDC recommendations, given the prevalence of disease in our region, it is our hospital?s policy to screen for HIV and viral Hepatitis for all patients aged 18 and over and those with ongoing risk factors. MR Comment: The patient was admitted to the hospitalist service in December 2023 with HFpEF, BNP at that time was 129, she also had an NSTEMI, acute on chronic hypercapnic respiratory failure Estrada Inquiry Pt receiving controlled substance: No Vital Signs: 08/11/24 23:48 08/11/24 23:54 08/12/24 00:00 Temperature 99.1 F Temperature Source Oral Pulse Rate 101 H 96 H Pulse Rate [Left Radial] 98 H Respiratory Rate 20 Blood Pressure 139/88 130/95 H Blood Pressure [Right Arm] 139/88 Blood Pressure Mean 119 109 Blood Pressure Mean [Right Arm] 105 Blood Pressure Source [Right Arm] Automatic Cuff 02 Sat by Pulse Oximetry 93 L 93 L 93 L Oxygen Delivery Method Room Air Trach Mask Trach Mask Oxygen Flow Rate (LPM) 3.5 3.5 08/12/24 00:30 08/12/24 01:00 08/12/24 01:30 Temperature Temperature Source Pulse Rate 82 68 91 H Pulse Rate [Left Radial] Respiratory Rate Blood Pressure 119/86 134/84 140/79 Blood Pressure [Right Arm] Blood Pressure Mean 97 94 98 Blood Pressure Mean [Right Arm] Blood Pressure Source [Right Arm] 02 Sat by Pulse Oximetry 91 L 97 96 Oxygen Delivery Method Trach Mask Trach Mask Trach Mask Oxygen Flow Rate (LPM) 3.5 3.5 3.5 08/12/24 02:00 08/12/24 02:30 Temperature Temperature Source Pulse Rate 91 H 95 H Pulse Rate [Left Radial] Respiratory Rate Blood Pressure 125/82 145/83 H Blood Pressure [Right Arm] Blood Pressure Mean 103 102 Blood Pressure Mean [Right Arm] Blood Pressure Source [Right Arm] 02 Sat by Pulse Oximetry 97 90 L Oxygen Delivery Method Oxygen Flow Rate (LPM) Lab Data Lab Results 08/11/24 23:50: WBC 10.0, RBC 4.61, Hgb 13.2, Hct 43.2, MCV 93.7, MCH 28.6, MCHC 30.6 L, RDW 14.9, Plt Count 202, MPV 9.9, Neut % (Auto) 79.2, Lymph % (Auto) 13.8, Tyler % (Auto) 5.2, Eos % (Auto) 1.0, Baso % (Auto) 0.2, Neut # (Auto) 7.9 H, Lymph # (Auto) 1.4, Tyler # (Auto) 0.5, Eos # (Auto) 0.1, Baso # (Auto) 0.0, ESR 15, PT 10.2, INR 0.90, Sodium 138, Potassium 4.4, Chloride 100, Carbon Dioxide 35 H, Anion Gap 7.4, BUN 12, Creatinine 0.90, Estimated Creat Clear 56, Estimated GFR 66, Est GFR ( Amer) 80, Glucose 112 H, Lactate 1.2, Calcium 8.5, Total Bilirubin 0.2, AST 24, ALT 20, Alkaline Phosphatase 81, C-Reactive Protein 67.6 H, Total Protein 7.5, Albumin 4.2, Globulin 3.3 H, Albumin/Globulin Ratio 1.3, Lipase 39 08/11/24 23:58: Troponin I < 0.01, NT-Pro-B Natriuret Pep 127 H 08/12/24 00:59: VBG pH 7.28 L, VBG pCO2 53.0 H, VBG pO2 28.7, VBG HCO3 24.2, VBG Total CO2 25.9, VBG O2 Saturation 52.2, VBG Base Excess -2.5 L, VBG Lactic Acid 1.5 08/11/24 23:50 08/11/24 23:50 Orders (Tests/Meds): ED MEDICATIONS Generic Name Dose Route Start Last Admin Trade Name Freq PRN Reason Stop Dose Admin Acetaminophen 650 mg 08/12/24 02:49 Acetaminophen 325mg Tab PO 09/11/24 02:48 Q4HP PRN Fever or Mild Pain (1-3) Albuterol/Ipratropium 3 ml 08/12/24 03:00 Ipratropium/Albuterol 3 Ml [facility] 09/11/24 02:59 Q6HP GERMAN Docusate Sodium 100 mg 08/12/24 09:00 Docusate Sodium 100 Mg Capsule PO 09/11/24 08:59 DAILY GERMAN Enoxaparin Sodium 40 mg 08/12/24 09:00 Enoxaparin 40mg/0.4ml Syringe SUBCUT 09/11/24 08:59 BID GERMAN Ondansetron HCl 4 mg 08/12/24 02:49 Ondansetron 4mg/2ml Vial IV 09/11/24 02:48 Q8HP PRN Nausea Sodium Chloride 10 ml 08/12/24 01:26 08/12/24 01:27 Sodium Chloride 0.9% 10ml Syr (Rad Only) IV 09/11/24 01:25 10 ml NEEDED PRN Administration Maintain IV Site Discontinued Medications Generic Name Dose Route Start Last Admin Trade Name Freq PRN Reason Stop Dose Admin Albuterol/Ipratropium 9 ml 08/12/24 01:56 Ipratropium/Albuterol 3 Ml [facility] 08/12/24 01:57 ONCE ONE Aspirin 324 mg 08/12/24 00:58 08/12/24 01:10 Aspirin 81mg Chewable Tablet PO 08/12/24 00:59 324 mg ONCE ONE Administration Azithromycin 500 mg 08/12/24 01:57 08/12/24 02:45 Azithromycin 250mg Tablet PO 08/12/24 01:58 500 mg ONCE ONE Administration Bumetanide 1 mg 08/12/24 01:56 08/12/24 02:43 Bumetanide 1mg/4ml Vial IV 08/12/24 01:57 1 mg ONCE ONE Administration Cefdinir 300 mg 08/12/24 01:58 08/12/24 02:45 Cefdinir 300mg Capsule PO 08/12/24 01:59 300 mg ONCE ONE Administration Iopamidol 70 ml 08/12/24 01:26 08/12/24 01:27 Iopamidol-370 (76%);100ml Bottle IV 08/12/24 01:27 70 ml ONCE ONE Administration Methylprednisolone Sodium Succinate 125 mg 08/12/24 01:57 08/12/24 02:43 Methylprednisolone Sod Succ 125mg Vial IV 08/12/24 01:58 125 mg ONCE ONE Administration Sodium Chloride 40 ml 08/12/24 01:26 08/12/24 01:27 0.9 % Sodium Chloride 50 Ml Vial IV 08/12/24 01:27 40 ml ONCE ONE Administration ORDERS Category Date Time Status CT abdomen pelvis w con Stat Cat Scan 08/12/24 00:[address] angio chest PE protocol Stat Cat Scan 08/12/24 00:58 Completed CRP [C-Reactive Protein] Stat Lab 08/12/24 00:00 Completed Complete Blood Count Auto Diff Stat Lab 08/12/24 00:00 Completed Comprehensive Metabolic Panel Stat Lab 08/12/24 00:00 Completed Erythrocyte Sedimentation Rate Stat Lab 08/12/24 00:00 Completed Lactic Acid Stat Lab 08/12/24 00:00 Completed Lipase Stat Lab 08/12/24 00:00 Completed NT Pro Brain Natriuretic Pep. Stat Lab 08/12/24 00:00 Completed Prothrombin Time INR Stat Lab 08/12/24 00:00 Completed Troponin I Q3H Lab 08/12/24 04:00 Ordered Troponin I Q3H Lab 08/12/24 07:00 Ordered Troponin I Stat Lab 08/12/24 00:58 Completed Blood Culture Stat Micro 08/12/24 02:26 Received VBG [Venous Blood Gas] Stat RT 08/12/24 00:59 Completed Medical Decision Narrative: In summary, this 49-year-old female with comorbidities described in the HPI which increased the amount of data to be reviewed as well as her overall morbidity presents to the emergency department today with multiple complaints including enlarging abdomen and legs as well as shortness of breath. On initial evaluation patient is hemodynamically stable, afebrile, obese, tracheostomy in place with well-appearing site, breath sounds diminished throughout but no obvious adventitious sounds, patient's obesity limits physical exam, she does not have obvious abdominal tenderness, no rebound or guarding, no obvious pitting edema in the lower extremities, neurovascularly intact, GCS 15. Differential diagnosis includes but is not limited to ACS, pneumonia, PE, pneumonia, hypercarbia, respiratory failure, pleural effusion, intra-abdominal pathology such as bowel obstruction, organomegaly, also considered fluid overload, electrolyte abnormality, kidney dysfunction, among others. Based on these concerns, I ordered broad workup including serum labs, cardiac workup, CT imaging. Patient was also placed on trach collar for oxygenation ECG personally interpreted demonstrates normal sinus rhythm, rate 92, normal axis, normal CO and QTc, no STEMI. similar appearing to previous ECG which I reviewed Labs personally reviewed demonstrate respiratory acidosis with hypercarbia, normal lactic, patient was started on DuoNebs, Solu-Medrol for treatment of this. No leukocytosis or anemia, PT/INR nonactionable, patient has elevated CRP, BNP elevated at 127 which is similar to when patient was admitted to the hospital with respiratory complaints, she is being treated with IV Bumex, undetectable initial troponin CTAP personally interpreted does not demonstrate large PE, patient does have mild infiltrate in the left lung, patient is being treated for COPD exacerbation and will be treated with cefdinir and azithromycin for pneumonia. CT abdomen pelvis does not demonstrate obvious acute intra-abdominal pathology. See radiology reads for final interpretations. On reassessment patient is feeling somewhat improved. I reviewed lab and imaging results with her. I recommended admission for continued management of respiratory acidosis, COPD exacerbation, fluid overload. She is agreeable to this. I discussed this case with the hospitalist and he graciously accepted the patient for admission. Patient is bringing her home BiPAP to use in the hospital. Patient stable condition Critical Care Critical Care Time Critical Care Time: No
--- NOTE | 2024-08-12 03:00 | PC.NURSE ---
report called to Odette MCNEIL
--- NOTE | 2024-08-12 03:19 | PC.NURSE ---
Patient arrived to floor via stretcher from ED at 03:16.
[2024-08-12] MEDS: OXYCODONE 10MG W/APAP 325MG TABLET 1 EACH PO ×3 (05:13→16:35)
[2024-08-12 05:22] LABS: Troponin I < 0.01 ng/ml (0.00-0.034)
--- NOTE | 2024-08-12 05:42 | PC.NURSE ---
A Kumar catheter was inserted by Az Ann RN this morning using aseptic technique. Patient tolerated the procedure well.
[2024-08-12] MEDS: IPRATROPIUM/ALBUTEROL 3 ML NEB IH ×2 (06:13→12:01)
[2024-08-12] MEDS: METHYLPREDNISOLONE SOD SUCC 40MG VIAL 40 MG IV ×2 (06:28→09:05)
[2024-08-12 06:52] LABS: Basophils % 0.2 % (0.1-2.0); Hematocrit 43.3 % (37.0-47.0); Hemoglobin 13.3 g/dL (12.2-16.2); Lymphocytes # 0.6 K/mm3 (0.7-4.5); Lymphocytes % 7.1 % (10-50); Mean Corpuscular HGB Conc 30.7 g/dL (31.8-35.4); Mean Corpuscular Hemoglobin 28.4 pg (27.0-31.2); Mean Corpuscular Volume 92.3 fl (81-99); Mean Platelet Volume 9.9 fl (7.4-10.4); Monocytes # 0.2 K/mm3 (0.1-1.0); Monocytes % 1.9 % (1.7-9.3); Neutrophils # 7.5 K/mm3 (1.8-7.8); Neutrophils % 90.1 % (37.0-80.0); Platelet Count 182 K/mm3 (142-424); Red Blood Count 4.69 M/mm3 (4.20-5.40); Red Cell Distribution Width 14.8 % (11.5-17.5); White Blood Count 8.4 K/mm3 (4.8-10.8)
[2024-08-12 06:59] LABS: MANUAL DIFFERENTIAL MANUAL DIFFERENTIAL (MANUAL DIFF)
[2024-08-12 07:36] LABS: Troponin I < 0.01 ng/ml (0.00-0.034)
[2024-08-12 07:48] LABS: Anion Gap 10.2 mEq/L (5-15); Blood Urea Nitrogen 11 mg/dl (7-17); Calcium 8.9 mg/dl (8.4-10.2); Carbon Dioxide 31 mmol/L (22.0-30.0); Chloride 102 mmol/L (98-107); Creatinine Clearance Estimated 63 mL/min (50-200); Estimated Glomerular Filt Rate 76 ml/min (>60); GFR (African American) 92 ML/MIN (>60); Glucose 136 mg/dl (74-100); Magnesium 1.8 mg/dl (1.6-2.3); Potassium 5.2 mmoL/L (3.5-5.1); Sodium 138 mmol/L (136-145)
--- NOTE | 2024-08-12 07:54 | HMH.PHAINT1 ---
Pharmacy Intervention Comments: home medication list verified using list from outpatient pharmacy and pt interview
[2024-08-12 08:50] LABS: Lymphocytes % 6 % (10-50); Neutrophils % 94 % (42-76); Nucleated Red Blood Cells 1; Platelet Estimate Normal; RBC Morphology Normal; Total Cells Counted 100
[2024-08-12] MEDS: BUMETANIDE 1MG/4ML VIAL 2 MG IV ×2 (09:05→16:02)
[2024-08-12] MEDS: DOCUSATE SODIUM 100 MG CAPSULE PO (09:05)
[2024-08-12] MEDS: CEFTRIAXONE 1 GM 1 GM in 0.9 % SODIUM CHLORIDE 50 ML IV (09:05)
[2024-08-12] MEDS: ENOXAPARIN 60MG/0.6ML SYRINGE 60 MG SUBCUT (09:06)
--- NOTE | 2024-08-12 10:02 | EXP.PULM.CON ---
History of Present Illness History of present illness: Ms. Badillo is a 49-year-old female history of asthma, obesity hypoventilation syndrome status post tracheostomy, chronic hypercarbic respiratory failure currently on trilogy NIV presented to the ER with worsening respiratory distress and blood gas showed hypercarbic respiratory failure and pulmonary was called for further evaluation and management. [facility] Disclaimer: The information contained in this section may have been updated after the patient was seen, as this information can be updated by other users. Medical History Otitis externa of left ear Dysphagia Hearing difficulty of left ear Otalgia, left ear Asthma Acute on chronic respiratory failure with hypoxia and hypercapnia Palpitations Ear pain, right Acute and chronic respiratory failure with hypercapnia PTSD (post-traumatic stress disorder) Chest pain Generalized anxiety disorder Recurrent major depression resistant to treatment Sleep apnea History of ectopic History of hyperkalemia Diastolic congestive heart failure Paranoid schizophrenia Uses bilevel positive airway pressure (BPAP) ventilation at home History of sleep apnea History of asthma Cellulitis of right lower extremity Acute and chronic respiratory failure with hypercapnia Pneumonia Acute and chronic respiratory failure Right lower lobe pneumonia History of smoking 30 or more pack years Obesity hypoventilation syndrome Chronic respiratory failure with hypercapnia Severe sepsis COVID-19 Acute and chronic respiratory failure Pneumonia Tracheostomy in place Edema Sinus tachycardia Dizziness Diastolic dysfunction Acute on chronic diastolic heart failure Respiratory failure with hypoxia and hypercapnia Congestive heart failure Acute on chronic diastolic heart failure Elevated d-dimer PAC (premature atrial contraction) Chest pain Dyspnea HTN (hypertension) COPD (chronic obstructive pulmonary disease) Tobacco abuse Abnormal stress test SOB (shortness of breath) Angina, class III Obesity Hypothyroidism (~11/21/17) Asthma Insomnia Depression Anxiety Neuropathy Surgical History History of tracheostomy History of appendectomy History of cholecystectomy History of colonoscopy History of left knee surgery History of hysterectomy Family History Other No significant family history Social History Smoking Status: Unknown if ever smoked smoking status stop date: 02/2022 alcohol intake: former substance use type: marijuana current occupational status: disabled Travel in the last 8 weeks: None household members: family housing: apartment number of children: 0 current occupational exposures/hazards: No caffeine: Yes Review of Systems Constitutional Constitutional: Reports anorexia, Denies body ache(s) and Denies fatigue Eyes Eyes: Denies eye discharge, Denies dry eyes, Denies irritation and Denies itchy eyes ENT Ears, Nose, Mouth, and Throat: Denies epistaxis, Denies facial pain, Denies lip swelling and Denies throat swelling *Cardiovascular Cardiovascular: Reports dyspnea, Reports dyspnea on exertion and Reports leg edema *Respiratory Respiratory: Reports chest congestion, Reports cough, Reports dyspnea, Reports dyspnea on exertion, Denies excessive phlegm production, Denies hemoptysis, Denies pain on inspiration, Denies pain with cough and Denies wheezing *Gastrointestinal Gastrointestinal: Denies abdominal pain, Denies belching and Denies cramping *Musculoskeletal Musculoskeletal: Reports back pain, Reports myalgias and Reports other (No small joint swelling or Pain) Comments: Leg Pain Lt LE Psychiatric Psychiatric: Denies homicidal ideation and Denies suicidal ideation Endocrine Endocrine: Denies fatigue and Denies heat intolerance Hematologic/Lymphatic Hematologic/Lymphatic: Denies easy bleeding and Denies lymphadenopathy Allergic/Immunologic Allergic/Immunologic: Denies itchy eyes, Denies lip swelling, Denies throat swelling and Denies wheezing Pulmonology Exam Inpatient Vital signs and Labs for Last 24 Hours: Temp Pulse Resp BP Pulse Ox O2 Del Method O2 Flow Rate 97.6 F 90 20 120/73 93 L Trach Collar/Tube 3 08/12/24 08:00 08/12/24 08:00 08/12/24 08:00 08/12/24 08:00 08/12/24 08:00 08/12/24 08:00 08/12/24 07:00 FiO2 40 08/12/24 06:14 Laboratory Results - last 24 hr 08/11/24 23:50: WBC 10.0, RBC 4.61, Hgb 13.2, Hct 43.2, MCV 93.7, MCH 28.6, MCHC 30.6 L, RDW 14.9, Plt Count 202, MPV 9.9, Neut % (Auto) 79.2, Lymph % (Auto) 13.8, [place] % (Auto) 5.2, Eos % (Auto) 1.0, Baso % (Auto) 0.2, Neut # (Auto) 7.9 H, Lymph # (Auto) 1.4, [place] # (Auto) 0.5, Eos # (Auto) 0.1, Baso # (Auto) 0.0, ESR 15, PT 10.2, INR 0.90, Sodium 138, Potassium 4.4, Chloride 100, Carbon Dioxide 35 H, Anion Gap 7.4, BUN 12, Creatinine 0.90, Estimated Creat Clear 56, Estimated GFR 66, Est GFR ( Amer) 80, Glucose 112 H, Lactate 1.2, Calcium 8.5, Total Bilirubin 0.2, AST 24, ALT 20, Alkaline Phosphatase 81, C-Reactive Protein 67.6 H, Total Protein 7.5, Albumin 4.2, Globulin 3.3 H, Albumin/Globulin Ratio 1.3, Lipase 39 08/11/24 23:58: Troponin I < 0.01, NT-Pro-B Natriuret Pep 127 H 08/12/24 00:59: VBG pH 7.28 L, VBG pCO2 53.0 H, VBG pO2 28.7, VBG HCO3 24.2, VBG Total CO2 25.9, VBG O2 Saturation 52.2, VBG Base Excess -2.5 L, VBG Lactic Acid 1.5 08/12/24 04:50: Troponin I < 0.01 08/12/24 06:36: WBC 8.4, RBC 4.69, Hgb 13.3, Hct 43.3, MCV 92.3, MCH 28.4, MCHC 30.7 L, RDW 14.8, Plt Count 182, MPV 9.9, Neut % (Auto) 90.1 H, Lymph % (Auto) 7.1 L, [place] % (Auto) 1.9, Eos % (Auto) 0.0 L, Baso % (Auto) 0.2, Neut # (Auto) 7.5, Lymph # (Auto) 0.6 L, [place] # (Auto) 0.2, Eos # (Auto) 0.0, Baso # (Auto) 0.0, Total Counted 100, Neutrophils % (Manual) 94 H, Lymphocytes % (Manual) 6 L, Nucleated RBCs 1, Platelet Estimate Normal, RBC Morphology Normal, Sodium 138, Potassium 5.2 H, Chloride 102, Carbon Dioxide 31 H, Anion Gap 10.2, BUN 11, Creatinine 0.80, Estimated Creat Clear 63, Estimated GFR 76, Est GFR ( Amer) 92, Glucose 136 H D, Calcium 8.9, Magnesium 1.8, Troponin I < 0.01 I & O for Labs for Last 24 Hours: Intake & Output 08/09/24 08/10/24 08/12/24 08/12/24 23:59 23:59 00:59 23:59 Intake Total 360 / 360 Balance 360 / 360 Weight 370 lb 376 lb 1 oz Constitutional: Present mild distress Head: Present normocephalic and atraumatic ENT: Present normal exam, normal oropharynx and mucous membranes moist Neck: Present normal inspection and full ROM Respiratory: Present normal respiratory effort and able to speak in complete sentences; Absent prolonged expiratory phase, rhonchi or wheezes Cardiac: Present S1/S2, Tachycardia and radial pulses present GI: Present soft and distention; Absent tenderness or guarding Rectal (female): Present deferred (female): Present deferred Skin: Present intact; Absent cyanosis or jaundice Neuro: Present alert, awake and oriented x 3 Extremities: Present normal inspection; Absent clubbing or cyanosis Psychiatric: Present normal affect and cooperative Meds Home Medications and Allergies Home Medications ?Medication ?Instructions ?Recorded ?Confirmed ?Type ipratropium 0.5 mg-albuterol 3 mg 3 ml inhalation QID PRN shortness 02/09/23 08/12/24 Rx (2.5 mg base)/3 mL nebulization of breath or wheezing 90 days #270 soln mL spironolactone 50 mg tablet 50 mg PO DAILY 90 days #90 tabs 11/09/23 08/12/24 Rx (Aldactone) bisacodyl 5 mg tablet,delayed 5 mg PO HS PRN constipation 15 11/30/23 08/12/24 Rx release (Dulcolax (bisacodyl)) days #15 tabs fluticasone propionate 50 1 spray intranasal DAILY #16 grams 12/22/23 08/12/24 Rx mcg/actuation nasal spray,suspension (Flonase Allergy Relief) omeprazole 40 mg capsule,delayed 40 mg PO BID 12/28/23 08/12/24 History release linaclotide 145 mcg capsule 145 mcg PO DAILY #90 caps 02/16/24 08/12/24 Rx (Linzess) losartan 25 mg tablet 25 mg PO DAILY #30 tabs 05/15/24 08/12/24 Rx propranolol 10 mg tablet 10 mg PO BID #60 tabs 05/15/24 08/12/24 Rx lamotrigine 100 mg tablet 100 mg PO DAILY #30 tabs 06/04/24 08/12/24 Rx ziprasidone HCl 40 mg capsule 40 mg PO BID #60 caps 06/04/24 08/12/24 Rx (Geodon) diazepam 5 mg tablet 2.5 mg (1/2 x 5 mg) PO TID 30 days 07/16/24 08/12/24 Rx #45 tabs albuterol sulfate 90 mcg/actuation 2 inh inhalation Q6H PRN shortness 07/22/24 08/12/24 Rx aerosol inhaler (Ventolin HFA) of breath or wheezing #18 grams fluticasone fur. 100 mcg-umeclid 1 inh inhalation DAILY 90 days #90 07/22/24 08/12/24 Rx 62.5 mcg-vilant 25 mcg blisters inhalat.powder (Trelegy Ellipta) rivaroxaban 10 mg tablet (Xarelto) 10 mg PO DAILY #10 tabs 07/26/24 08/12/24 Rx cyclobenzaprine 5 mg tablet 5 mg PO TID 08/12/24 08/12/24 History duloxetine 30 mg capsule,delayed 90 mg PO DAILY 08/12/24 08/12/24 History release gabapentin 800 mg tablet 800 mg PO TID 08/12/24 08/12/24 History levothyroxine 25 mcg tablet 25 mcg PO 0700 08/12/24 08/12/24 History oxycodone-acetaminophen 10 mg-325 1 tab PO QIDP PRN Mild Pain (Scale 08/12/24 08/12/24 History mg tablet Score 1-4) quetiapine 100 mg tablet (Seroquel) 200 mg PO HS 08/12/24 08/12/24 History rimegepant 75 mg disintegrating 75 mg PO Q48H 08/12/24 08/12/24 History tablet (Nurtec ODT) semaglutide 2 mg/dose (8 mg/3 mL) 2 mg (0.75 mL) SQ WEEKLY 30 days 08/12/24 Rx subcutaneous pen injector (Ozempic) #3 mL sumatriptan succinate 100 mg tablet 100 mg PO DIRECTED PRN migraine 08/12/24 08/12/24 History headaches torsemide 100 mg tablet 100 mg PO DAILY 08/12/24 08/12/24 History New Prescriptions to Start Prescriptions: semaglutide [Ozempic] Dean Ornelas Allergies Allergy/AdvReac Type Severity Reaction Status Date / Time doxycycline Allergy Severe Blister Verified 07/26/24 14:57 Sulfa (Sulfonamide AdvReac Intermediate Rash Verified 07/26/24 14:57 Antibiotics) amoxicillin AdvReac Verified 07/26/24 14:57 nitrofurantoin (From AdvReac Verified 07/26/24 14:57 Macrobid) Results Laboratory Findings 08/12/24 06:36 08/12/24 06:36 PT/INR, D-dimer PT 10.2 seconds (10.1-12.5) 08/11/24 23:50 INR 0.90 (0.9-1.1) 08/11/24 23:50 Abnormal lab findings: Abnormal Labs 08/11/24 08/11/24 08/12/24 23:50 23:58 00:59 MCHC 30.6 L Neut % (Auto) Lymph % (Auto) Eos % (Auto) Neut # (Auto) 7.9 H Lymph # (Auto) Neutrophils % (Manual) Lymphocytes % (Manual) VBG pH 7.28 L VBG pCO2 53.0 H VBG Base Excess -2.5 L Potassium Carbon Dioxide 35 H Glucose 112 H C-Reactive Protein 67.6 H NT-Pro-B Natriuret Pep 127 H Globulin 3.3 H 08/12/24 06:36 MCHC 30.7 L Neut % (Auto) 90.1 H Lymph % (Auto) 7.1 L Eos % (Auto) 0.0 L Neut # (Auto) Lymph # (Auto) 0.6 L Neutrophils % (Manual) 94 H Lymphocytes % (Manual) 6 L VBG pH VBG pCO2 VBG Base Excess Potassium 5.2 H Carbon Dioxide 31 H Glucose 136 H D C-Reactive Protein NT-Pro-B Natriuret Pep Globulin Assessment and Plan *Assessment and plan (1) Acute on chronic respiratory failure with hypoxia and hypercapnia: Status: Acute Category: Medical Code(s): J96.21 - Acute and chronic respiratory failure with hypoxia; J96.22 - Acute and chronic respiratory failure with hypercapnia (2) Pickwickian syndrome: Status: Chronic Category: Medical Code(s): E66.2 - Morbid (severe) obesity with alveolar hypoventilation (3) Asthma: Status: Acute Qualifiers: Asthma severity: moderate Asthma persistence: persistent Asthma complication type: unspecified Qualified Code(s): J45.40 - Moderate persistent asthma, uncomplicated Category: Medical Code(s): J45.909 - Unspecified asthma, uncomplicated Plan Ms. Badillo is a 49-year-old female history of asthma, obesity hypoventilation syndrome status post tracheostomy, chronic hypercarbic respiratory failure currently on trilogy NIV presented to the ER with worsening respiratory distress and blood gas showed hypercarbic respiratory failure and pulmonary was called for further evaluation and management. Patient today admits stable respiratory symptoms. Admits compliant with her NIV, inhalers and nebulization therapies. Following trach care. Her current trilogy settings Tidal volume of o450, PEEP of 8, PS of 4/16 and backup rate of 12. Blood gas from this admission showed pH of 7.28 and pCO2 of 53.0. Plan: -Continue NIV via Tracheostomy for obesity hypoventilation. Will follow-up with compliance report Trelegy 100 Inhaler. DuoNebs every 6 hours on as-needed basis # Thank you for involving pulmonary in this patient care. Will continue to follow.
[2024-08-12 10:25] LABS: Adenovirus,PCR Not Detected (NotDetected); Bordetella Pertussis Not Detected (NotDetected); Chlamydophila Pneumoniae, PCR Not Detected (NotDetected); Coronavirus 19, PCR Not Detected (NotDetected); Coronavirus 229E Not Detected (NotDetected); Coronavirus NL63 Not Detected (NotDetected); Coronavirus OC43 Not Detected (NotDetected); Coronovirus HKU1,PCR Not Detected (NotDetected); Human Metapneumovirus Not Detected (NotDetected); Influenza A, PCR Not Detected (NotDetected); Influenza AH1, 2009 Not Detected (NotDetected); Influenza AH1, PCR Not Detected (NotDetected); Influenza AH3,PCR Not Detected (NotDetected); Influenza B, PCR Not Detected (NotDetected); Mycoplasma Pneumoniae, PCR Not Detected (NotDetected); Parainfluenza 1, PCR Not Detected (NotDetected); Parainfluenza 2, PCR Not Detected (NotDetected); Parainfluenza 3, PCR Not Detected (NotDetected); Parainfluenza 4, PCR Not Detected (NotDetected); Respiratory Syncytial Virus Not Detected (NotDetected); Rhinovirus/Enterovirus Not Detected (NotDetected)
--- NOTE | 2024-08-12 10:46 | SW/DCPLANNER ---
Per nursing staff no PT/OT needs at this time. Patient is ambulating in room.
[2024-08-12] MEDS: diazePAM 5MG TABLET 2.5 MG PO (12:29)
[2024-08-12] MEDS: GABAPENTIN 800MG TABLET 800 MG PO (14:06)
--- NOTE | 2024-08-12 16:24 | EXP.DC.SUM ---
General Admission date:: 08/12/24 Discharge date: 08/12/24 HPI HPI HPI: A 49-year-old female, tracheostomy-dependent since COV, with a history of heart failure with preserved ejection fraction (HFpEF, LVEF 67% on 07/22/2024 per echo), obstructive sleep apnea (IRLANDA), morbid obesity (BMI 71, weight 170 kg), obesity hypoventilation syndrome (OHS), COPD, and lymphedema, presents to the emergency department with multiple complaints. 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 She denies significant recent weight gain ( I know I have not gotten that fat in the last 2 weeks ), corroborated by PCP records from Dr. Hussein showing her weight at 170 kg on 07/26/2024, consistent with today?s 170 kg. Upon further questioning, she clarified that the gradual worsening of this swelling, combined with new shortness of breath?described as a sensation of someone pushing up on her diaphragm?prompted her ER visit won. She also reports chills, a mildly worsened cough compared to baseline, and reduced urine output, with increased dyspnea when lying flat beyond her usual OHS symptoms. She denies chest pain, vomiting, diarrhea, dysuria, hematuria, or known illness exposure, and states she takes all home medications as prescribed, including bumetanide 2 mg PO daily for HFpEF. On exam, she is hemodynamically stable, afebrile, obese, with a well-appearing tracheostomy site, diminished breath sounds throughout (no adventitious sounds), limited abdominal exam due to body habitus (no tenderness, rebound, or guarding), no obvious pitting edema in the lower extremities, and neurovascularly intact (GCS 15). Labs on 08/11/24 show WBC 10.0, CO2 35 mEq/L, glucose 112 mg/dL, CRP 67.6 mg/L (elevated), BNP 127 pg/mL (elevated, similar to prior admission), and normal troponin (<0.01 ng/mL). A VBG reveals pH 7.28, pCO2 53.0 mmHg, HCO3 24.2 mEq/L, and O2 saturation 52.2%, indicating respiratory acidosis with hypercarbia. ECG shows normal sinus rhythm (rate 92), unchanged from prior. CT abdomen impression notes a possible developing infiltrate at the left lung base and diverticulosis without diverticulitis, while CTA chest impression confirms patchy infiltrates in the left lung with no embolism; no cellulitis or lymphedema mass is evident, possibly limited by habitus. She received DuoNebs and Solu-Medrol for COPD exacerbation, a single dose of IV Bumex 1 mg for fluid overload, and cefdinir/azithromycin for pneumonia, with a trach collar for oxygenation. On reassessment, she feels somewhat improved but requires admission for respiratory acidosis, COPD exacerbation, and fluid overload management, complicated by HFpEF (LVEF 67%), OHS, and lymphedema (BMI 71, 170 kg stable per 07/26/2024 visit with PCP). She is bringing her home BiPAP and agrees to admission after discussion with the hospitalist. Hospital Course Hospital Course Hospital Course: Ms. Badillo is a 49-year-old female history of asthma, obesity hypoventilation syndrome status post tracheostomy, chronic hypercarbic respiratory failure currently on trilogy NIV presented to the ER with worsening respiratory distress and blood gas showed hypercarbic respiratory failure and pulmonary was called for further evaluation and management. Did well overnight. Blood gas normalized. Will continue brief treatment for COPD exacerbation. After much discussion with pulmonology, stable to discharge home which she is on her baseline settings with her trilogy device and otherwise at baseline level of function. Discharged home in stable condition to complete antibiotic course. Problems addressed as follows: COPD exacerbation with hypercarbia Obesity hypoventilation syndrome -Presented with blood gas showing pH of 7.28, pCO2 of 53. Was initiated on BiPAP and had good response. Patient admits compliance with her trilogy device. Pulmonology evaluated. Continue noninvasive ventilation at home and nebulizer therapies. Continue with tidal volume 450, PEEP of 8, pressure support of 4/16 with a backup rate of 12. Will treat for 1 week with antibiotics for history of MRSA infections. Does appear to have some left lung pneumonia with mild patchy findings. CT of chest with patchy left lung infiltrate. Initially treated with Zosyn. Transition to doxycycline at discharge. Pulmonology in the coming weeks. Heart Failure with Preserved Ejection Fraction (HFpEF) with Fluid Overload: -Responded to diuresis. Negative fluid status since admission. Breathing somewhat better. BNP normal at 127 however. Continue home regimen with spironolactone and torsemide daily for fluid management. Resume home meds per med rec. In regard to patient's obesity, refill of her Ozempic was sent in. Has had trouble getting it approved in the past. Case management consulted and assisting with PA for her obesity hypoventilation as she is not a diabetic. Would benefit from weight loss to improve her respiratory failure. Exam Data for Last 24 hours Vital signs and Labs for Last 24 Hours: Temp Pulse Resp BP Pulse Ox O2 Del Method O2 Flow Rate 97.6 F 106 H 24 120/73 93 L Room Air 3 08/12/24 08:00 08/12/24 12:01 08/12/24 12:01 08/12/24 08:00 08/12/24 08:00 08/12/24 15:00 08/12/24 07:00 FiO2 40 08/12/24 06:14 Laboratory Results - last 24 hr 08/11/24 23:50: WBC 10.0, RBC 4.61, Hgb 13.2, Hct 43.2, MCV 93.7, MCH 28.6, MCHC 30.6 L, RDW 14.9, Plt Count 202, MPV 9.9, Neut % (Auto) 79.2, Lymph % (Auto) 13.8, [place] % (Auto) 5.2, Eos % (Auto) 1.0, Baso % (Auto) 0.2, Neut # (Auto) 7.9 H, Lymph # (Auto) 1.4, [place] # (Auto) 0.5, Eos # (Auto) 0.1, Baso # (Auto) 0.0, ESR 15, PT 10.2, INR 0.90, Sodium 138, Potassium 4.4, Chloride 100, Carbon Dioxide 35 H, Anion Gap 7.4, BUN 12, Creatinine 0.90, Estimated Creat Clear 56, Estimated GFR 66, Est GFR ( Amer) 80, Glucose 112 H, Lactate 1.2, Calcium 8.5, Total Bilirubin 0.2, AST 24, ALT 20, Alkaline Phosphatase 81, C-Reactive Protein 67.6 H, Total Protein 7.5, Albumin 4.2, Globulin 3.3 H, Albumin/Globulin Ratio 1.3, Lipase 39 08/11/24 23:58: Troponin I < 0.01, NT-Pro-B Natriuret Pep 127 H 08/12/24 00:59: VBG pH 7.28 L, VBG pCO2 53.0 H, VBG pO2 28.7, VBG HCO3 24.2, VBG Total CO2 25.9, VBG O2 Saturation 52.2, VBG Base Excess -2.5 L, VBG Lactic Acid 1.5 08/12/24 04:50: Troponin I < 0.01 08/12/24 06:36: WBC 8.4, RBC 4.69, Hgb 13.3, Hct 43.3, MCV 92.3, MCH 28.4, MCHC 30.7 L, RDW 14.8, Plt Count 182, MPV 9.9, Neut % (Auto) 90.1 H, Lymph % (Auto) 7.1 L, [place] % (Auto) 1.9, Eos % (Auto) 0.0 L, Baso % (Auto) 0.2, Neut # (Auto) 7.5, Lymph # (Auto) 0.6 L, [place] # (Auto) 0.2, Eos # (Auto) 0.0, Baso # (Auto) 0.0, Total Counted 100, Neutrophils % (Manual) 94 H, Lymphocytes % (Manual) 6 L, Nucleated RBCs 1, Platelet Estimate Normal, RBC Morphology Normal, Sodium 138, Potassium 5.2 H, Chloride 102, Carbon Dioxide 31 H, Anion Gap 10.2, BUN 11, Creatinine 0.80, Estimated Creat Clear 63, Estimated GFR 76, Est GFR ( Amer) 92, Glucose 136 H D, Calcium 8.9, Magnesium 1.8, Troponin I < 0.01 08/12/24 09:20: Chlamy pneumoniae PCR Not detected, Adenovirus (PCR) Not detected, B. pertussis DNA (PCR) Not detected, Coronavirus OC43 (PCR) Not detected, Coronavirus HKU1 (PCR) Not detected, Coronavirus 229E (PCR) Not detected, SARS-CoV-2 (PCR) Not detected, Coronavirus NL63 (PCR) Not detected, Human Metapneumovir PCR Not detected, Influenza A (H1) PCR Not detected, Influ A (H1N1/09) PCR Not detected, Influenza A (H3) PCR Not detected, Influenza Type A (PCR) Not detected, Influenza Type B (PCR) Not detected, M. pneumoniae (PCR) Not detected, Parainfluenza 1 (PCR) Not detected, Parainfluenza 2 (PCR) Not detected, Parainfluenza 3 (PCR) Not detected, Parainfluenza 4 (PCR) Not detected, RSV (PCR) Not detected, Entero/Rhino (PCR) Not detected I & O for Last 24 hours: Intake & Output 08/09/24 08/10/24 08/12/24 08/12/24 23:59 23:59 00:59 23:59 Intake Total 840 / 840 Balance 840 / 840 Weight 167.829 kg 168.906 kg Microbiology Reports for the Last 24 Hours: Microbiology 08/12/24 12:00 Sputum - Expectorated Sputum Gram Stain - Final Constitutional Constitutional: no acute distress, morbidly obese and chronically ill appearing *Routine HEENT Exam Head: Present normocephalic Eye: Present EOMI and PERRL ENT: Present mucous membranes moist Comments: Cushingoid face, tracheostomy in place with no drainage *Routine Neck Exam Neck: Present supple; Absent lymphadenopathy Comments: Trach collar in place with passy rayo valve *Routine Respiratory Exam Respiratory: Present CTA bilaterally and distant breath sounds; Absent prolonged expiratory phase, rhonchi or wheezes *Routine Cardiovascular Exam Cardiovascular: Present RRR; Absent murmur *Routine Abdominal Exam Abdominal: Present soft and normoactive bowel sounds; Absent tenderness *Routine Rectal Exam Patient deferred: visual exam *Routine Exam Patient deferred: external exam *Routine Extremities Exam Extremities: Present edema; Absent cyanosis or clubbing *Routine Skin Exam Skin: Present wounds; Absent rash *Routine Neurological Exam Neurological: Present alert, oriented X3 and moving all extremities; Absent altered mental status Routine Psychiatric Exam Psychiatric: Present normal affect Results Data Completed and Pending Labs on day of discharge: Labs from last 24 hours 08/12/24 08/12/24 08/12/24 09:20 06:36 04:50 WBC 8.4 RBC 4.69 Hgb 13.3 Hct 43.3 MCV 92.3 MCH 28.4 MCHC 30.7 L RDW 14.8 Plt Count 182 MPV 9.9 Neut % (Auto) 90.1 H Lymph % (Auto) 7.1 L [place] % (Auto) 1.9 Eos % (Auto) 0.0 L Baso % (Auto) 0.2 Neut # (Auto) 7.5 Lymph # (Auto) 0.6 L [place] # (Auto) 0.2 Eos # (Auto) 0.0 Baso # (Auto) 0.0 Total Counted 100 Neutrophils % (Manual) 94 H Lymphocytes % (Manual) 6 L Nucleated RBCs 1 Platelet Estimate Normal RBC Morphology Normal ESR PT INR VBG pH VBG pCO2 VBG pO2 VBG HCO3 VBG Total CO2 VBG O2 Saturation VBG Base Excess VBG Lactic Acid Sodium 138 Potassium 5.2 H Chloride 102 Carbon Dioxide 31 H Anion Gap 10.2 BUN 11 Creatinine 0.80 Estimated Creat Clear 63 Estimated GFR 76 Est GFR ( Amer) 92 Glucose 136 H D Lactate Calcium 8.9 Magnesium 1.8 Total Bilirubin AST ALT Alkaline Phosphatase Troponin I < 0.01 < 0.01 C-Reactive Protein NT-Pro-B Natriuret Pep Total Protein Albumin Globulin Albumin/Globulin Ratio Lipase Chlamy pneumoniae PCR Not detected Adenovirus (PCR) Not detected B. pertussis DNA (PCR) Not detected Coronavirus OC43 (PCR) Not detected Coronavirus HKU1 (PCR) Not detected Coronavirus 229E (PCR) Not detected SARS-CoV-2 (PCR) Not detected Coronavirus NL63 (PCR) Not detected Human Metapneumovir PCR Not detected Influenza A (H1) PCR Not detected Influ A (H1N1/09) PCR Not detected Influenza A (H3) PCR Not detected Influenza Type A (PCR) Not detected Influenza Type B (PCR) Not detected M. pneumoniae (PCR) Not detected Parainfluenza 1 (PCR) Not detected Parainfluenza 2 (PCR) Not detected Parainfluenza 3 (PCR) Not detected Parainfluenza 4 (PCR) Not detected RSV (PCR) Not detected Entero/Rhino (PCR) Not detected 08/12/24 08/11/24 08/11/24 00:59 23:58 23:50 WBC 10.0 RBC 4.61 Hgb 13.2 Hct 43.2 MCV 93.7 MCH 28.6 MCHC 30.6 L RDW 14.9 Plt Count 202 MPV 9.9 Neut % (Auto) 79.2 Lymph % (Auto) 13.8 [place] % (Auto) 5.2 Eos % (Auto) 1.0 Baso % (Auto) 0.2 Neut # (Auto) 7.9 H Lymph # (Auto) 1.4 [place] # (Auto) 0.5 Eos # (Auto) 0.1 Baso # (Auto) 0.0 Total Counted Neutrophils % (Manual) Lymphocytes % (Manual) Nucleated RBCs Platelet Estimate RBC Morphology ESR 15 PT 10.2 INR 0.90 VBG pH 7.28 L VBG pCO2 53.0 H VBG pO2 28.7 VBG HCO3 24.2 VBG Total CO2 25.9 VBG O2 Saturation 52.2 VBG Base Excess -2.5 L VBG Lactic Acid 1.5 Sodium 138 Potassium 4.4 Chloride 100 Carbon Dioxide 35 H Anion Gap 7.4 BUN 12 Creatinine 0.90 Estimated Creat Clear 56 Estimated GFR 66 Est GFR ( Amer) 80 Glucose 112 H Lactate 1.2 Calcium 8.5 Magnesium Total Bilirubin 0.2 AST 24 ALT 20 Alkaline Phosphatase 81 Troponin I < 0.01 C-Reactive Protein 67.6 H NT-Pro-B Natriuret Pep 127 H Total Protein 7.5 Albumin 4.2 Globulin 3.3 H Albumin/Globulin Ratio 1.3 Lipase 39 Chlamy pneumoniae PCR Adenovirus (PCR) B. pertussis DNA (PCR) Coronavirus OC43 (PCR) Coronavirus HKU1 (PCR) Coronavirus 229E (PCR) SARS-CoV-2 (PCR) Coronavirus NL63 (PCR) Human Metapneumovir PCR Influenza A (H1) PCR Influ A (H1N1/09) PCR Influenza A (H3) PCR Influenza Type A (PCR) Influenza Type B (PCR) M. pneumoniae (PCR) Parainfluenza 1 (PCR) Parainfluenza 2 (PCR) Parainfluenza 3 (PCR) Parainfluenza 4 (PCR) RSV (PCR) Entero/Rhino (PCR) DS: Diagnosis Discharge Diagnosis (1) Acute on chronic respiratory failure with hypoxia and hypercapnia: Status: Acute Code(s): J96.21 - Acute and chronic respiratory failure with hypoxia; J96.22 - Acute and chronic respiratory failure with hypercapnia (2) Pickwickian syndrome: Status: Chronic Code(s): E66.2 - Morbid (severe) obesity with alveolar hypoventilation (3) Asthma: Status: Acute Code(s): J45.909 - Unspecified asthma, uncomplicated Qualifiers: Asthma complication type: unspecified Asthma persistence: persistent Asthma severity: moderate Qualified Code(s): J45.40 - Moderate persistent asthma, uncomplicated Meds Home Medications and Allergies Home Medications ?Medication ?Instructions ?Recorded ?Confirmed ?Type ipratropium 0.5 mg-albuterol 3 mg 3 ml inhalation QID PRN shortness 02/09/23 08/12/24 Rx (2.5 mg base)/3 mL nebulization of breath or wheezing 90 days #270 soln mL spironolactone 50 mg tablet 50 mg PO DAILY 90 days #90 tabs 11/09/23 08/12/24 Rx (Aldactone) bisacodyl 5 mg tablet,delayed 5 mg PO HS PRN constipation 15 11/30/23 08/12/24 Rx release (Dulcolax (bisacodyl)) days #15 tabs fluticasone propionate 50 1 spray intranasal DAILY #16 grams 12/22/23 08/12/24 Rx mcg/actuation nasal spray,suspension (Flonase Allergy Relief) omeprazole 40 mg capsule,delayed 40 mg PO BID 12/28/23 08/12/24 History release losartan 25 mg tablet 25 mg PO DAILY #30 tabs 05/15/24 08/12/24 Rx propranolol 10 mg tablet 10 mg PO BID #60 tabs 05/15/24 08/12/24 Rx lamotrigine 100 mg tablet 100 mg PO DAILY #30 tabs 06/04/24 08/12/24 Rx ziprasidone HCl 40 mg capsule 40 mg PO BID #60 caps 06/04/24 08/12/24 Rx (Geodon) diazepam 5 mg tablet 2.5 mg (1/2 x 5 mg) PO TID 30 days 07/16/24 08/12/24 Rx #45 tabs albuterol sulfate 90 mcg/actuation 2 inh inhalation Q6H PRN shortness 07/22/24 08/12/24 Rx aerosol inhaler (Ventolin HFA) of breath or wheezing #18 grams fluticasone fur. 100 mcg-umeclid 1 inh inhalation DAILY 90 days #90 07/22/24 08/12/24 Rx 62.5 mcg-vilant 25 mcg blisters inhalat.powder (Trelegy Ellipta) rivaroxaban 10 mg tablet (Xarelto) 10 mg PO DAILY #10 tabs 07/26/24 08/12/24 Rx cyclobenzaprine 5 mg tablet 5 mg PO TID 08/12/24 08/12/24 History duloxetine 30 mg capsule,delayed 90 mg PO DAILY 08/12/24 08/12/24 History release gabapentin 800 mg tablet 800 mg PO TID 08/12/24 08/12/24 History levothyroxine 25 mcg tablet 25 mcg PO 0700 08/12/24 08/12/24 History rimegepant 75 mg disintegrating 75 mg PO Q48H 08/12/24 08/12/24 History tablet (Nurtec ODT) semaglutide 2 mg/dose (8 mg/3 mL) 2 mg (0.75 mL) SQ WEEKLY 30 days 08/12/24 Rx subcutaneous pen injector (Ozempic) #3 mL sumatriptan succinate 100 mg tablet 100 mg PO DIRECTED PRN migraine 08/12/24 08/12/24 History headaches torsemide 100 mg tablet 100 mg PO DAILY 08/12/24 08/12/24 History linaclotide 145 mcg capsule 145 mcg PO DAILY #90 caps 08/13/24 Rx (Linzess) oxycodone-acetaminophen 10 mg-325 1 tab PO QIDP PRN Mild Pain (Scale 08/13/24 Rx mg tablet Score 1-4) #120 tabs quetiapine 100 mg tablet (Seroquel) 200 mg (2 x 100 mg) PO HS #60 tabs 08/16/24 Rx sulfamethoxazole 800 1 tab PO BID 7 days #14 tabs 08/17/24 Rx mg-trimethoprim 160 mg tablet (Bactrim DS) New Prescriptions to Start Prescriptions: semaglutide [Ozempic] Dean Ornelas sulfamethoxazole-trimethoprim [Bactrim DS] Owen Bustamante Allergies Allergy/AdvReac Type Severity Reaction Status Date / Time doxycycline Allergy Severe Blister Verified 07/26/24 14:57 Sulfa (Sulfonamide AdvReac Intermediate Rash Verified 07/26/24 14:57 Antibiotics) amoxicillin AdvReac Verified 07/26/24 14:57 nitrofurantoin (From AdvReac Verified 07/26/24 14:57 Macrobid) Discharge Plan Disposition Patient Disposition: Home, Self-Care Condition: Fair Follow up Plan Follow up with: Owen Martinez DO [Primary Care Provider] - 08/19/24 2:20 pm Tian Diaz MD [Physician] - Enter time for follow up (please call fro appointment) Prescriptions/Medication Reconciliation: New sulfamethoxazole-trimethoprim [Bactrim DS] 800-160 mg tablet 1 tab PO BID 7 Days Qty: 14 0RF Continued ipratropium-albuterol 0.5 mg-3 mg(2.5 mg base)/3 mL solution for nebulization 3 ml inhalation QID PRN (Reason: shortness of breath or wheezing) 90 Days Qty: 270 3RF diazepam 5 mg tablet 2.5 mg PO TID 30 Days Qty: 45 1RF fluticasone propionate [Flonase Allergy Relief] 50 mcg/actuation spray,suspension 1 spray intranasal DAILY Qty: 16 2RF Rx Instructions: administer into each nostril ziprasidone HCl [Geodon] 40 mg capsule 40 mg PO BID Qty: 60 2RF Rx Instructions: give with food (meal/snack) lamotrigine 100 mg tablet 100 mg PO DAILY Qty: 30 3RF albuterol sulfate [Ventolin HFA] 90 mcg/actuation HFA aerosol inhaler 2 inh inhalation Q6H PRN (Reason: shortness of breath or wheezing) Qty: 18 3RF Trelegy Ellipta 100-62.5-25 mcg blister with device 1 inh inhalation DAILY 90 Days Qty: 90 3RF Xarelto 10 mg tablet 10 mg PO DAILY Qty: 10 0RF spironolactone [Aldactone] 50 mg tablet 50 mg PO DAILY 90 Days Qty: 90 4RF bisacodyl [Dulcolax (bisacodyl)] 5 mg tablet,delayed release (DR/EC) 5 mg PO HS PRN (Reason: constipation) 15 Days Qty: 15 3RF losartan 25 mg tablet 25 mg PO DAILY Qty: 30 5RF propranolol 10 mg tablet 10 mg PO BID Qty: 60 5RF omeprazole 40 mg capsule,delayed release(DR/EC) 40 mg PO BID torsemide 100 mg tablet 100 mg PO DAILY Patient Comments: TAKE ONE TABLET BY MOUTH EVERY DAY FOR fluid sumatriptan succinate 100 mg tablet 100 mg PO DIRECTED PRN (Reason: migraine headaches) Rx Instructions: TAKE 1 TABLET BY MOUTH AT ONSET OF MIGRAINE. MAY REPEAT ONCE AFTER 2 HOURS IF NEEDED levothyroxine 25 mcg tablet 25 mcg PO 0700 gabapentin 800 mg tablet 800 mg PO TID cyclobenzaprine 5 mg tablet 5 mg PO TID duloxetine 30 mg capsule,delayed release(DR/EC) 90 mg PO DAILY Nurtec ODT 75 mg tablet,disintegrating 75 mg PO Q48H Rx Instructions: DISSOLVE ONE TABLET in MOUTH EVERY OTHER DAY Ozempic 2 mg/dose (8 mg/3 mL) pen injector 2 mg SQ WEEKLY 30 Days Qty: 3 6RF Discontinued clindamycin HCl 300 mg capsule 300 mg PO Q8H 10 Days Qty: 30 0RF No Action Linzess 145 mcg capsule 145 mcg PO DAILY Qty: 90 2RF oxycodone-acetaminophen 10-325 mg tablet 1 tab PO QIDP PRN (Reason: Mild Pain (Scale Score 1-4)) Qty: 120 0RF quetiapine [Seroquel] 100 mg tablet 200 mg PO HS Qty: 60 0RF Problem Reconciliation Problems Reviewed?: Yes Patient Discharge Instructions ACTIVITY: Continue current activity DIET: continue same diet Patient Instructions: DI for Chronic Obstructive Pulmonary Disease, DI for Shortness of Breath, Catheter-Associated Urinary Tract Infection Print Language: Japanese Providers Primary Care Provider: Owen Martinez Admit Provider: Dean Ornelas Attending Provider: Dean Ornelas
--- NOTE | 2024-08-13 10:35 | SW/DCPLANNER ---
Spoke with patient on the phone. Patient stated that she is doing good. Patient stated that she is aware of her upcoming appointments. Patient stated that she was able to get her medicine picked up from clinic pharmacy. Patient stated that she has no concerns or questions at this time. Mattie Choudhary
--- NOTE | 2024-08-17 14:42 | EXP.EVENT.NO ---
Sputum culture resulted in MRSA growth sensitive to Bactrim. Her PCP had already called her regarding MRSA growth, sent in clindamycin. Unfortunately her MRSA growth is resistant to clindamycin. Will switch her discharged antibiotic from cefdinir to Bactrim. Patient having intermittent shortness of breath. Advised patient to return to the hospital if she does not feel better in the next 1-2 days. She has a follow-up appointment with her PCP on 08/19/2024.
== END 2024-08-12 17:20 | disposition home or self-care (01) ==
LOC: ER 08-12 02:42 → 2ND 08-12 02:48
PROVIDERS: Internal Medicine Pulmonary Disease; Nurse Practitioner Family; Admitting Provider Internal Medicine Adolescent Medicine; Emergency Provider Emergency Medicine; PCP Internal Medicine; Visit Provider Internal Medicine Adolescent Medicine
DX: J96.22 Acute and chronic respiratory failure with hypercapnia (principal); I50.30 Unspecified diastolic (congestive) heart failure; Z93.0 Tracheostomy status; J44.1 Chronic obstructive pulmonary disease with (acute) exacerbation; E66.2 Morbid (severe) obesity with alveolar hypoventilation; I11.0 Hypertensive heart disease with heart failure; Z68.45 Body mass index [BMI] 70 or greater, adult; F17.210 Nicotine dependence, cigarettes, uncomplicated; Z88.0 Allergy status to penicillin; Z88.1 Allergy status to other antibiotic agents; Z88.2 Allergy status to sulfonamides; Z88.8 Allergy status to other drugs, medicaments and biological substances; Z79.01 Long term (current) use of anticoagulants; Z79.85 Long-term (current) use of injectable non-insulin antidiabetic drugs; Z79.899 Other long term (current) drug therapy; Z79.51 Long term (current) use of inhaled steroids; Z86.16 Personal history of COVID-19; I89.0 Lymphedema, not elsewhere classified; Z99.3 Dependence on wheelchair
CPT/HCPCS: 36415; 71275; 74177; 80048; 80053; 82803; 83605; 83690; 83735; 83880; 84484; 85007; 85025; 85027; 85610; 85651; 86140; 87040; 87070; 87077; 87186; 87205; 87633; 93005; 94640; 99285; G0378; J0696; J1650; J1939; J2919; J7620; Q9967

== ENCOUNTER 2024-08-30 17:32 | Observation (INO) | payer MEDICAID, SELFPAY ==
--- NOTE | 2024-08-30 17:48 | CT_ITS ---
PROCEDURE INFORMATION: Exam: CT Abdomen And Pelvis With Contrast Exam date and time: 08/30/2024 6:42 PM Age: 49 years old Clinical indication: Abdominal pain; Additional info: Diffuse abd wall pain, redness, fever TECHNIQUE: Imaging protocol: Computed tomography of the abdomen and pelvis with contrast. 3D rendering (Not supervised by radiologist): MIP and/or 3D reconstructed images were created by the technologist. Radiation optimization: All CT scans at this facility use at least one of these dose optimization techniques: automated exposure control; mA and/or kV adjustment per patient size (includes targeted exams where dose is matched to clinical indication); or iterative reconstruction. Contrast material: ISOVUE; Contrast volume: 70 ml; Contrast route: IV; COMPARISON: CT ABDOMEN PELVIS W CON 08/12/2024 12:10 AM FINDINGS: Lungs: Lung bases are clear. Liver: Normal. No mass. Gallbladder and biliary ducts: Status post cholecystectomy. No evident bile duct dilatation allowing for prior cholecystectomy. Pancreas: Normal. No ductal dilation. Spleen: Normal. No splenomegaly. Adrenal glands: Normal. No mass. Kidneys and ureters: Normal. No hydronephrosis. Stomach and bowel: Unremarkable. No obstruction. No mucosal thickening. Appendix: Appendix is normal. No evidence of appendicitis. Intraperitoneal space: Unremarkable. No free air. No significant fluid collection. Vasculature: Unremarkable. No abdominal aortic aneurysm. Lymph nodes: Unremarkable. No enlarged lymph nodes. Urinary bladder: Unremarkable as visualized. Reproductive: Hysterectomy. Bones/joints: Unremarkable. No acute fracture. Soft tissues: Study somewhat limited due to excessive noise artifact related to patient's body habitus which is most pronounced in the periphery including the abdominal wall region. Edematous appearing changes noted in the subcutaneous fat tissues of the anterior wall of the abdomen and pelvis somewhat degraded by the noise and motion artifact. No definite focal fluid collection to suggest abscess. No definite soft tissue air. IMPRESSION: 1. Limited exam due to noise and motion artifact. 2. Soft tissue edema of the anterior abdominal wall suggesting possible cellulitis given patient's history. Assessment somewhat limited due to noise and motion artifact. 3. No other acute abnormalities.
--- NOTE | 2024-08-30 17:48 | CT_ITS ---
PROCEDURE INFORMATION: Exam: CTA Chest With Contrast Exam date and time: 08/30/2024 6:42 PM Age: 49 years old Clinical indication: Shortness of breath; Additional info: Diffuse abd wall pain, redness, fever, SOA TECHNIQUE: Imaging protocol: Computed tomographic angiography of the chest with contrast. Exam focused on the arteries. 3D rendering (Not supervised by radiologist): MIP and/or 3D reconstructed images were created by the technologist. Radiation optimization: All CT scans at this facility use at least one of these dose optimization techniques: automated exposure control; mA and/or kV adjustment per patient size (includes targeted exams where dose is matched to clinical indication); or iterative reconstruction. Contrast material: ISOVUE; Contrast volume: 70 ml; Contrast route: INTRAVENOUS (IV); COMPARISON: CT ANGIO CHEST PE PROTOCOL 08/12/2024 12:10 AM FINDINGS: Pulmonary arteries: No PE identified. Sensitivity may be limited due to motion artifact combined with less than optimal contrast opacification. Aorta: Unremarkable. No aortic aneurysm. No aortic dissection. Trachea: Tracheostomy located 6 cm above the rosa m redemonstrated. Lungs: Mild nonspecific mediastinal lymphadenopathy including the AP window measuring up to 13 mm and right paratracheal measuring 10 mm and subcarinal region measuring 16 mm and mild bilateral hilar adenopathy similar to prior CT of 08/12/2024. Interval resolution of the previously noted left-sided ground-glass opacities. Mild bibasilar subsegmental atelectasis [id number] similar to previous. Lung lira otherwise clear. Pleural spaces: Unremarkable. No pneumothorax. No pleural effusion. Heart: Unremarkable. No cardiomegaly. No pericardial effusion. Lymph nodes: See Lungs finding. Bones/joints: Unremarkable. No acute fracture. Soft tissues: Unremarkable. IMPRESSION: 1. No PE identified. Sensitivity may be limited due to motion artifact combined with less than optimal contrast opacification. 2. Interval resolution of the left ground-glass opacities. 3. Mild nonspecific mediastinal and hilar adenopathy similar to prior CT of 08/12/2024. Consider follow-up CT in 3 months to ensure stability or resolution.
[2024-08-30 17:49] VITALS: BP 139/81; PULSE 109; RESP 20; TEMP 37.2; O2SAT 90; BMI 69.9
--- NOTE | 2024-08-30 17:53 | ED_ITS ---
Discharge Plan Disposition Patient Disposition: Admitted Prescriptions Prescriptions: No Action ipratropium-albuterol 0.5 mg-3 mg(2.5 mg base)/3 mL solution for nebulization 3 ml inhalation QID PRN (Reason: shortness of breath or wheezing) 90 Days Qty: 270 3RF diazepam 5 mg tablet 2.5 mg PO TID 30 Days Qty: 45 1RF fluticasone propionate [Flonase Allergy Relief] 50 mcg/actuation spray,suspension 1 spray intranasal DAILY Qty: 16 2RF Rx Instructions: administer into each nostril ziprasidone HCl [Geodon] 40 mg capsule 40 mg PO BID Qty: 60 2RF Rx Instructions: give with food (meal/snack) lamotrigine 100 mg tablet 100 mg PO DAILY Qty: 30 3RF albuterol sulfate [Ventolin HFA] 90 mcg/actuation HFA aerosol inhaler 2 inh inhalation Q6H PRN (Reason: shortness of breath or wheezing) Qty: 18 3RF Trelegy Ellipta 100-62.5-25 mcg blister with device 1 inh inhalation DAILY 90 Days Qty: 90 3RF Xarelto 10 mg tablet 10 mg PO DAILY Qty: 10 0RF spironolactone [Aldactone] 50 mg tablet 50 mg PO DAILY 90 Days Qty: 90 4RF bisacodyl [Dulcolax (bisacodyl)] 5 mg tablet,delayed release (DR/EC) 5 mg PO HS PRN (Reason: constipation) 15 Days Qty: 15 3RF losartan 25 mg tablet 25 mg PO DAILY Qty: 30 5RF propranolol 10 mg tablet 10 mg PO BID Qty: 60 5RF Linzess 145 mcg capsule 145 mcg PO DAILY Qty: 90 2RF oxycodone-acetaminophen 10-325 mg tablet 1 tab PO QIDP PRN (Reason: Mild Pain (Scale Score 1-4)) Qty: 120 0RF quetiapine [Seroquel] 100 mg tablet 200 mg PO HS Qty: 60 0RF Linzess 145 mcg capsule 146 mcg PO DAILY Patient Comments: TAKE ONE CAPSULE BY MOUTH EVERY DAY omeprazole 40 mg capsule,delayed release(DR/EC) 40 mg PO BID torsemide 100 mg tablet 100 mg PO DAILY Patient Comments: TAKE ONE TABLET BY MOUTH EVERY DAY FOR fluid sumatriptan succinate 100 mg tablet 100 mg PO DIRECTED PRN (Reason: migraine headaches) Rx Instructions: TAKE 1 TABLET BY MOUTH AT ONSET OF MIGRAINE. MAY REPEAT ONCE AFTER 2 HOURS IF NEEDED levothyroxine 25 mcg tablet 25 mcg PO 0700 gabapentin 800 mg tablet 800 mg PO TID cyclobenzaprine 5 mg tablet 5 mg PO TID duloxetine 30 mg capsule,delayed release(DR/EC) 90 mg PO DAILY Nurtec ODT 75 mg tablet,disintegrating 75 mg PO Q48H Rx Instructions: DISSOLVE ONE TABLET in MOUTH EVERY OTHER DAY sulfamethoxazole-trimethoprim [Bactrim DS] 800-160 mg tablet 1 tab PO BID 7 Days Qty: 14 0RF Clinical Impressions Clinical Impression: Abdominal wall cellulitis, Cellulitis of leg, right, Morbid obesity Instructions Patient Instructions: DI for Acute Abdominal Pain Print Language Print Language: Tamazight Discharge ED Provider: Chilo Horta General Adult HPI General Chief complaint: Abdominal Pain Stated complaint: Red,swollen abdomen and right leg,fever Time Seen by Provider: 08/30/24 17:37 History of Present Illness HPI narrative: Patient is a 49-year-old female presenting today with abdominal pain redness and right lower extremity redness and fever. She is morbidly obese has a history of pickwickian syndrome has chronic respiratory failure with a tracheostomy. She states over the last 3 days that she has had increased abdominal discomfort and discomfort on her leg on the right lateral aspect on the lower aspect with redness. She has had this numerous times in the past requiring antibiotics and hospitalization. She also states that she had a Tmax of 101 within the last 48 hours but has been afebrile for 24 hours. She does have some mild increased shortness of breath but no worsening cough or sputum production or urinary symptoms. Related Data Home Medications ?Medication ?Instructions ?Recorded ?Confirmed omeprazole 40 mg capsule,delayed 40 mg PO BID 12/28/23 08/30/24 release cyclobenzaprine 5 mg tablet 5 mg PO TID 08/12/24 08/30/24 duloxetine 30 mg capsule,delayed 90 mg PO DAILY 08/12/24 08/30/24 release gabapentin 800 mg tablet 800 mg PO TID 08/12/24 08/30/24 levothyroxine 25 mcg tablet 25 mcg PO 0700 08/12/24 08/30/24 rimegepant 75 mg disintegrating 75 mg PO Q48H 08/12/24 08/30/24 tablet (Nurtec ODT) sumatriptan succinate 100 mg tablet 100 mg PO DIRECTED PRN migraine 08/12/24 08/30/24 headaches torsemide 100 mg tablet 100 mg PO DAILY 08/12/24 08/30/24 linaclotide 145 mcg capsule 146 mcg PO DAILY 08/30/24 08/30/24 (Linzess) Previous Rx's ?Medication ?Instructions ?Recorded ipratropium 0.5 mg-albuterol 3 mg 3 ml inhalation QID PRN shortness 02/09/23 (2.5 mg base)/3 mL nebulization of breath or wheezing 90 days #270 soln mL spironolactone 50 mg tablet 50 mg PO DAILY 90 days #90 tabs 11/09/23 (Aldactone) bisacodyl 5 mg tablet,delayed 5 mg PO HS PRN constipation 15 11/30/23 release (Dulcolax (bisacodyl)) days #15 tabs fluticasone propionate 50 1 spray intranasal DAILY #16 grams 12/22/23 mcg/actuation nasal spray,suspension (Flonase Allergy Relief) losartan 25 mg tablet 25 mg PO DAILY #30 tabs 05/15/24 propranolol 10 mg tablet 10 mg PO BID #60 tabs 05/15/24 lamotrigine 100 mg tablet 100 mg PO DAILY #30 tabs 06/04/24 ziprasidone HCl 40 mg capsule 40 mg PO BID #60 caps 06/04/24 (Geodon) diazepam 5 mg tablet 2.5 mg (1/2 x 5 mg) PO TID 30 days 07/16/24 #45 tabs albuterol sulfate 90 mcg/actuation 2 inh inhalation Q6H PRN shortness 07/22/24 aerosol inhaler (Ventolin HFA) of breath or wheezing #18 grams fluticasone fur. 100 mcg-umeclid 1 inh inhalation DAILY 90 days #90 07/22/24 62.5 mcg-vilant 25 mcg blisters inhalat.powder (Trelegy Ellipta) rivaroxaban 10 mg tablet (Xarelto) 10 mg PO DAILY #10 tabs 07/26/24 linaclotide 145 mcg capsule 145 mcg PO DAILY #90 caps 08/13/24 (Linzess) oxycodone-acetaminophen 10 mg-325 1 tab PO QIDP PRN Mild Pain (Scale 08/13/24 mg tablet Score 1-4) #120 tabs quetiapine 100 mg tablet (Seroquel) 200 mg (2 x 100 mg) PO HS #60 tabs 08/16/24 sulfamethoxazole 800 1 tab PO BID 7 days #14 tabs 08/17/24 mg-trimethoprim 160 mg tablet (Bactrim DS) Allergies Allergy/AdvReac Type Severity Reaction Status Date / Time doxycycline Allergy Severe Blister Verified 07/26/24 14:57 Sulfa (Sulfonamide AdvReac Intermediate Rash Verified 07/26/24 14:57 Antibiotics) amoxicillin AdvReac Verified 07/26/24 14:57 nitrofurantoin (From AdvReac Verified 07/26/24 14:57 Macrobid) [facility] Disclaimer: The information contained in this section may have been updated after the patient was seen, as this information can be updated by other users. Medical History Otitis externa of left ear Dysphagia Hearing difficulty of left ear Otalgia, left ear Asthma Acute on chronic respiratory failure with hypoxia and hypercapnia Palpitations Ear pain, right Acute and chronic respiratory failure with hypercapnia PTSD (post-traumatic stress disorder) Chest pain Generalized anxiety disorder Recurrent major depression resistant to treatment Sleep apnea History of ectopic History of hyperkalemia Diastolic congestive heart failure Paranoid schizophrenia Uses bilevel positive airway pressure (BPAP) ventilation at home History of sleep apnea History of asthma Cellulitis of right lower extremity Acute and chronic respiratory failure with hypercapnia Pneumonia Acute and chronic respiratory failure Right lower lobe pneumonia History of smoking 30 or more pack years Obesity hypoventilation syndrome Chronic respiratory failure with hypercapnia Severe sepsis COVID-19 Acute and chronic respiratory failure Pneumonia Tracheostomy in place Edema Sinus tachycardia Dizziness Diastolic dysfunction Acute on chronic diastolic heart failure Respiratory failure with hypoxia and hypercapnia Congestive heart failure Acute on chronic diastolic heart failure Elevated d-dimer PAC (premature atrial contraction) Chest pain Dyspnea HTN (hypertension) COPD (chronic obstructive pulmonary disease) Tobacco abuse Abnormal stress test SOB (shortness of breath) Angina, class III Obesity Hypothyroidism (~11/21/17) Asthma Insomnia Depression Anxiety Neuropathy Surgical History History of tracheostomy History of appendectomy History of cholecystectomy History of colonoscopy History of left knee surgery History of hysterectomy Family History Other No significant family history Social History Smoking Status: Current some day smoker tobacco type: cigarettes packs per day: 1 smoking status stop date: 02/2022 alcohol intake: former substance use type: marijuana current occupational status: disabled Travel in the last 8 weeks: None household members: family housing: apartment number of children: 0 current occupational exposures/hazards: No caffeine: Yes Have you lived/traveled outside [place] in past 30 days?: No Contact w/someone who lives/traveled outside [place] past 30 days?: No Exposure to someone with infectious disease in past 14 days?: No Do you have a fever (greater than 100.4 F or 38 C)?: Yes Have you tested positive for COVID-19: No Exposed to someone with COVID-19 in past 14 days?: No Do you have a sore throat?: No Do you have a cough?: No Do you have any weakness?: No Do you have any diarrhea?: No Are you experiencing any unusual bleeding?: No Do you have any muscle aches/pain?: No Do you have any abdominal pain?: Yes Are you experiencing loss of taste or smell?: No Other Medical History Have you received the Flu Vaccine for this season: No Have you received the Pneumonia Vaccine: No ROS Obtained: Yes All systems reviewed & no additional complaints except as documented Physical Exam General General appearance: alert Respiratory Respiratory exam: Present normal lung sounds bilaterally Cardiovascular Cardiovascular exam: Present regular rate Abdominal Exam Abdominal exam: Present other (Abdominal wall morbidly obese there is some mild erythema and tenderness particularly on the anterior and left lower quadrants no significant soft tissue or skin breakdown or perineal involvement) Neurological Exam Neurological exam: Present alert and oriented X3 Skin Skin exam: Present other (Lateral aspect of the right lower leg about a 10 x 10 cm area of superficial erythema and tenderness no fluctuance) Medical Decision Making Medical Records Screening: Per USPSTF and CDC recommendations, given the prevalence of disease in our region, it is our hospital?s policy to screen for HIV and viral Hepatitis for all patients aged 18 and over and those with ongoing risk factors. Estrada Inquiry Pt receiving controlled substance: No Vital Signs: 08/30/24 17:49 Temperature 98.9 F Temperature Source Oral Pulse Rate [Right Brachial] 109 H Respiratory Rate 20 Blood Pressure [Right Arm] 139/81 Blood Pressure Mean [Right Arm] 100 Blood Pressure Source [Right Arm] Automatic Cuff Blood Pressure Position [Right Arm] Supine 02 Sat by Pulse Oximetry 90 L Oxygen Delivery Method Room Air Lab Data Lab results reviewed: Yes I reviewed the patient's lab results. Lab Results 08/30/24 17:59: SARS-CoV-2 (PCR) Not detected, Influenza A Untype (PCR) Not detected, Influenza Type B (PCR) Not detected 08/30/24 18:00: WBC 8.6, RBC 4.29, Hgb 12.4, Hct 39.6, MCV 92.3, MCH 28.9, MCHC 31.3 L, RDW 14.8, Plt Count 201, MPV 9.9, Neut % (Auto) 72.6, Lymph % (Auto) 19.1, Lares % (Auto) 5.5, Eos % (Auto) 1.9, Baso % (Auto) 0.1, Neut # (Auto) 6.3, Lymph # (Auto) 1.6, Lares # (Auto) 0.5, Eos # (Auto) 0.2, Baso # (Auto) 0.0, Sodium 139, Potassium 4.6, Chloride 98, Carbon Dioxide 35 H, Anion Gap 10.6, BUN 18 H, Creatinine 1.30 H, Estimated Creat Clear 39, Estimated GFR 43 L, Est GFR ( Amer) 52 L, Glucose 122 H, Lactate 1.3, Calcium 9.0, Total Bilirubin 0.3, AST 23, ALT 18, Alkaline Phosphatase 76, Troponin I < 0.01, C-Reactive Protein 50.5 H, Total Protein 7.2, Albumin 4.1, Globulin 3.1, Albumin/Globulin Ratio 1.3 08/30/24 18:13: Urine Color Yellow, Urine Appearance Clear, Urine pH 5.5, Ur Specific Crawford 1.025, Urine Protein Negative, Urine Glucose (UA) Negative, Urine Ketones Trace, Urine Blood Negative, Urine Nitrate Negative, Urine Bilirubin Negative, Urine Urobilinogen 0.2, Ur Leukocyte Esterase Negative, Urine RBC None, Urine WBC Occasional, Ur Squamous Epith Cells 3-5, Urine Bacteria Trace 08/30/24 18:00 08/30/24 18:00 Orders (Tests/Meds): ED MEDICATIONS Generic Name Dose Route Start Last Admin Trade Name Freq PRN Reason Stop Dose Admin Miscellaneous 1 each 08/30/24 19:45 Vancomycin Consult Request NOTAPPLIC 09/29/24 19:44 [facility] Discontinued Medications Generic Name Dose Route Start Last Admin Trade Name Freq PRN Reason Stop Dose Admin Iopamidol 70 ml 08/30/24 18:42 08/30/24 18:51 Iopamidol-370 (76%);100ml Bottle IV 08/30/24 18:43 70 ml ONCE ONE Administration Oxycodone/Acetaminophen 1 each 08/30/24 19:26 08/30/24 19:31 Oxycodone 10mg W/Apap 325mg Tablet PO 08/30/24 19:27 1 each ONCE ONE Administration Sodium Chloride 10 ml 08/30/24 18:42 08/30/24 18:51 Sodium Chloride 0.9% 10ml Syr (Rad Only) IV 08/30/24 18:43 10 ml ONCE ONE Administration Sodium Chloride 50 ml 08/30/24 18:42 08/30/24 18:50 0.9 % Sodium Chloride 50 Ml Vial IV 08/30/24 18:43 50 ml ONCE ONE Administration ORDERS Category Date Time Status CT abdomen pelvis w con Stat Cat Scan 08/30/24 17:[address] angio chest PE protocol Stat Cat Scan 08/30/24 17:48 Completed CBC w/Auto Diff [Complete Blood Count Auto Diff] Stat Lab 08/30/24 18:00 Completed CMP [Comprehensive Metabolic Panel] Stat Lab 08/30/24 18:00 Completed CRP [C-Reactive Protein] Stat Lab 08/30/24 18:00 Completed Lactic Acid Stat Lab 08/30/24 18:00 Completed Rapid PCR Covid and Flu A/B Stat Lab 08/30/24 17:59 Completed Trop I [Troponin I] Stat Lab 08/30/24 18:00 Completed Troponin I Q3H Lab 08/30/24 21:00 Ordered Troponin I Q3H Lab 08/31/24 00:00 Ordered UA [Urinalysis and Microscopic] Stat Lab 08/30/24 18:13 Completed Blood Culture Stat Micro 08/30/24 18:17 Received Medical Decision Narrative: 49-year-old female who is morbidly obese with above history and physical most likely abdominal wall and right lower extremity cellulitis. Given her body habitus and her cardiovascular disease patient may have significant issues with antibiotic penetration. Additionally this is a very large aspect of her abdominal wall and right lower extremity and oral antibiotics likely are not appropriate in the setting. I anticipate initiating IV antibiotics and admitting this patient. However the erythema is mild and her symptoms seem to be out of proportion to the exam. She certainly could have a deeper cellulitis and she states she has had this many times before and that is what she believes is going on. However I want a make sure that we are not missing alternative diagnoses such as pulmonary embolism pneumonia urinary tract infection etc. Therefore a CT scan of her chest abdomen pelvis have been ordered. Will reassess after this initial workup is complete. Reassessment 7:[address] scans performed which I personally interpreted which shows no obvious emergent medical condition there is some edema in the anterior abdominal wall consistent with cellulitis. Clinically she does have erythema and tenderness in this region as well as the right lower extremity. Given the amount of soft tissue involvement and the likelihood that she will not get good oral penetration will admit her for IV antibiotic vancomycin initiated. I discussed the case with Luis with hospital medicine agreed to admit the patient. Patient does not have an alternative explanation to her fever and symptoms. She is agreeable to this plan Critical Care Critical Care Time Critical Care Time: No
[2024-08-30 18:08] LABS: Coronavirus 19, PCR Not Detected (NotDetected); Influenza A, PCR Not Detected (NotDetected); Influenza B, PCR Not Detected (NotDetected)
[2024-08-30 18:15] LABS: Basophils % 0.1 % (0.1-2.0); Eosinophils # 0.2 K/mm3 (0.0-0.4); Eosinophils % 1.9 % (0.1-12.0); Hematocrit 39.6 % (37.0-47.0); Hemoglobin 12.4 g/dL (12.2-16.2); Lymphocytes # 1.6 K/mm3 (0.7-4.5); Lymphocytes % 19.1 % (10-50); Mean Corpuscular HGB Conc 31.3 g/dL (31.8-35.4); Mean Corpuscular Hemoglobin 28.9 pg (27.0-31.2); Mean Corpuscular Volume 92.3 fl (81-99); Mean Platelet Volume 9.9 fl (7.4-10.4); Monocytes # 0.5 K/mm3 (0.1-1.0); Monocytes % 5.5 % (1.7-9.3); Neutrophils # 6.3 K/mm3 (1.8-7.8); Neutrophils % 72.6 % (37.0-80.0); Platelet Count 201 K/mm3 (142-424); Red Blood Count 4.29 M/mm3 (4.20-5.40); Red Cell Distribution Width 14.8 % (11.5-17.5); White Blood Count 8.6 K/mm3 (4.8-10.8)
[2024-08-30 18:18] LABS: Microscopic, Urine URINE MICROSCOPIC (MICROSCOPIC)
[2024-08-30 18:21] LABS: Appearance,Urine CLEAR (Clear); Bilirubin,Urine Negative (Negative); Blood, Urine Negative (Negative); Color,Urine YELLOW (Yellow); Glucose,Urine (UA) Negative (Negative); Ketones,Urine TRACE (Negative); Leukocyte Esterase,Urine Negative (Negative); Nitrate,Urine Negative (Negative); PH,Urine 5.5 (5.0-8.5); Protein,Urine Negative (Negative); Specific Gravity, Urine 1.025 (1.005-1.030); Urobilinogen,Urine 0.2 EU/dl (0.2)
[2024-08-30 18:21] LABS: Albumin Level 4.1 g/dl (3.5-5.0); Chloride 98 mmol/L (98-107); Sodium 139 mmol/L (136-145)
[2024-08-30 18:22] LABS: Potassium 4.6 mmoL/L (3.5-5.1)
[2024-08-30 18:24] LABS: Alanine Aminotransferase 18 U/L (12-78); Albumin/Globulin Ratio 1.3 (1.1-1.8); Alkaline Phosphatase 76 U/L (38-126); Anion Gap 10.6 mEq/L (5-15); Aspartate Amino Transferase 23 U/L (14-36); Bilirubin,Total 0.3 mg/dl (0.2-1.3); Blood Urea Nitrogen 18 mg/dl (7-17); Carbon Dioxide 35 mmol/L (22.0-30.0); Creatinine Clearance Estimated 39 mL/min (50-200); Estimated Glomerular Filt Rate 43 ml/min (>60); GFR (African American) 52 ML/MIN (>60); Globulin 3.1 g/dL (1.3-3.2); Total Protein,Serum 7.2 g/dl (6.3-8.2)
[2024-08-30 18:25] LABS: Glucose 122 mg/dl (74-100)
[2024-08-30 18:26] LABS: Lactic Acid 1.3 mmol/L (0.7-2.1)
[2024-08-30 18:30] LABS: C-Reactive Protein 50.5 mg/L (0-4)
[2024-08-30 18:39] LABS: Troponin I < 0.01 ng/ml (0.00-0.034)
[2024-08-30 18:43] LABS: Bacteria,Urine Trace /lpf; WBC,Urine Occasional #/hpf (0-3)
[2024-08-30] MEDS: 0.9 % SODIUM CHLORIDE 50 ML VIAL IV (18:50)
[2024-08-30] MEDS: IOPAMIDOL-370 (76%);100ML BOTTLE 70 ML IV (18:51)
[2024-08-30] MEDS: SODIUM CHLORIDE 0.9% 10ML SYR (RAD ONLY) 10 ML IV (18:51)
[2024-08-30] MEDS: OXYCODONE 10MG W/APAP 325MG TABLET 1 EACH PO (19:31)
--- NOTE | 2024-08-30 19:42 | PC.NURSE ---
Bed request made and house super aware of need for bed. awaiting admitting provider to see patient and place orders.
[2024-08-30 19:48] VITALS: PULSE 95
[2024-08-30 20:00] VITALS: BP 122/79; PULSE 95; RESP 21; TEMP 36.9; O2SAT 88; BMI 73.6
--- NOTE | 2024-08-30 20:03 | PC.NURSE ---
report given to rafa MCNEIL at this time
--- NOTE | 2024-08-30 20:19 | PC.NURSE ---
Patient arrived to floor via wheelchair from ED at 20:12.
[2024-08-30 20:23] VITALS: BP 122/79; PULSE 97; RESP 16; TEMP 36.6; O2SAT 90
[2024-08-30] MEDS: VANCOMYCIN CONSULT REQUEST 1 EACH NOTAPPLIC (20:53)
[2024-08-30] MEDS: VANCOMYCIN/WATER FOR INJ (PEG) 1.5 GM/300 ML PIGGYBACK IV ×2 (21:09→23:37)
[2024-08-30] MEDS: PANTOPRAZOLE 40MG TABLET 40 MG PO (21:22)
[2024-08-30] MEDS: QUETIAPINE 100MG TABLET 200 MG PO (21:22)
[2024-08-30] MEDS: GABAPENTIN 800MG TABLET 800 MG PO (21:23)
[2024-08-30] MEDS: diazePAM 5MG TABLET 2.5 MG PO (21:23)
[2024-08-30 21:38] LABS: Troponin I < 0.01 ng/ml (0.00-0.034)
[2024-08-31] VITALS (7 sets, daily range): BP systolic 89–133; BP diastolic 45–79; PULSE 85–97; RESP 16–20; TEMP 36.6–36.8; O2SAT 91–94; BMI 73.6
[2024-08-31 00:48] LABS: Troponin I < 0.01 ng/ml (0.00-0.034)
--- NOTE | 2024-08-31 00:55 | P.HP_ITS ---
<Statement entered by Owen Bustamante MD - 09/04/24 11:09> I personally examined patient and agree with the plan of care outlined by the RADIO MACHINIST. History of Present Illness *Admission Date: 08/30/24 *Reason for visit:: Abdominal pain *History of present illness: A 49-year-old female, morbidly obese with a history of Pickwickian syndrome, chronic respiratory failure with tracheostomy, and recurrent cellulitis, presents to the emergency department with abdominal pain, right lower extremity redness, and fever. She reports a 3-day history of increasing abdominal discomfort and pain with erythema on the right lateral lower leg, noting similar episodes in the past requiring antibiotics and hospitalization. She had a Tmax of 101?F within the last 48 hours but has been afebrile for 24 hours. She endorses mild increased shortness of breath without worsening cough, sputum production, or urinary symptoms. History was obtained from the patient. On arrival, she is hemodynamically stable, with unreported vital signs but noted to have mild erythema and tenderness of the abdominal wall and right lower extremity. The differential diagnosis includes abdominal wall and right lower extremity cellulitis, pulmonary embolism, pneumonia, and urinary tract infection. Workup included labs, chest/abdomen/pelvis CT, and respiratory viral panel. Labs showed WBC 8.6 K/?L, creatinine 1.30 mg/dL (eGFR 43 mL/min/1.73m?), glucose 122 mg/dL, CRP 50.5 mg/L, and normal troponin; urinalysis was unremarkable. CT scans, personally interpreted, revealed no emergent conditions but showed anterior abdominal wall edema consistent with cellulitis, with no evidence of PE or pneumonia. She was initiated on IV vancomycin for cellulitis, given her extensive soft tissue involvement and poor oral antibiotic penetration due to morbid obesity. Her symptoms appeared out of proportion to the mild erythema, raising concern for deeper infection, though CT findings supported cellulitis. Given her history of recurrent episodes and current presentation, this most likely represents abdominal wall and right lower extremity cellulitis. An interactive discussion with the hospitalist confirmed admission for IV antibiotics, and the patient agreed to inpatient management. [facility] Disclaimer: The information contained in this section may have been updated after the patient was seen, as this information can be updated by other users. Medical History Otitis externa of left ear Dysphagia Hearing difficulty of left ear Otalgia, left ear Asthma Acute on chronic respiratory failure with hypoxia and hypercapnia Palpitations Ear pain, right Acute and chronic respiratory failure with hypercapnia PTSD (post-traumatic stress disorder) Chest pain Generalized anxiety disorder Recurrent major depression resistant to treatment Sleep apnea History of ectopic History of hyperkalemia Diastolic congestive heart failure Paranoid schizophrenia Uses bilevel positive airway pressure (BPAP) ventilation at home History of sleep apnea History of asthma Cellulitis of right lower extremity Acute and chronic respiratory failure with hypercapnia Pneumonia Acute and chronic respiratory failure Right lower lobe pneumonia History of smoking 30 or more pack years Obesity hypoventilation syndrome Chronic respiratory failure with hypercapnia Severe sepsis COVID-19 Acute and chronic respiratory failure Pneumonia Tracheostomy in place Edema Sinus tachycardia Dizziness Diastolic dysfunction Acute on chronic diastolic heart failure Respiratory failure with hypoxia and hypercapnia Congestive heart failure Acute on chronic diastolic heart failure Elevated d-dimer PAC (premature atrial contraction) Chest pain Dyspnea HTN (hypertension) COPD (chronic obstructive pulmonary disease) Tobacco abuse Abnormal stress test SOB (shortness of breath) Angina, class III Obesity Hypothyroidism (~11/21/17) Asthma Insomnia Depression Anxiety Neuropathy Surgical History History of tracheostomy History of appendectomy History of cholecystectomy History of colonoscopy History of left knee surgery History of hysterectomy Family History Other No significant family history Social History (Updated 08/30/24 @ 21:08 by Kymberly Raines RN) Smoking Status: Current some day smoker tobacco type: cigarettes packs per day: 1 smoking status stop date: 02/2022 alcohol intake: former substance use type: marijuana current occupational status: disabled Travel in the last 8 weeks: None household members: family housing: apartment number of children: 0 current occupational exposures/hazards: No caffeine: Yes Have you lived/traveled outside [place] in past 30 days?: No Contact w/someone who lives/traveled outside [place] past 30 days?: No Exposure to someone with infectious disease in past 14 days?: No Do you have a fever (greater than 100.4 F or 38 C)?: Yes Have you tested positive for COVID-19: No Exposed to someone with COVID-19 in past 14 days?: No Do you have a sore throat?: No Do you have a cough?: No Do you have any weakness?: No Are you experiencing any nausea/vomitting?: No Do you have any diarrhea?: No Are you experiencing any unusual bleeding?: No Do you have any muscle aches/pain?: No Do you have any abdominal pain?: Yes Are you experiencing loss of taste or smell?: No Other Medical History Have you received the Flu Vaccine for this season: No Have you received the Pneumonia Vaccine: No Review of Systems Review of Systems Review of systems (narrative): 13 point review of systems negative except as listed in HPI Meds Home Medications and Allergies Home Medications ?Medication ?Instructions ?Recorded ?Confirmed ?Type ipratropium 0.5 mg-albuterol 3 mg 3 ml inhalation QID PRN shortness 02/09/23 08/30/24 Rx (2.5 mg base)/3 mL nebulization of breath or wheezing 90 days #270 soln mL spironolactone 50 mg tablet 50 mg PO DAILY 90 days #90 tabs 11/09/23 08/30/24 Rx (Aldactone) bisacodyl 5 mg tablet,delayed 5 mg PO HS PRN constipation 15 11/30/23 08/30/24 Rx release (Dulcolax (bisacodyl)) days #15 tabs fluticasone propionate 50 1 spray intranasal DAILY #16 grams 12/22/23 08/30/24 Rx mcg/actuation nasal spray,suspension (Flonase Allergy Relief) omeprazole 40 mg capsule,delayed 40 mg PO BID 12/28/23 08/30/24 History release losartan 25 mg tablet 25 mg PO DAILY #30 tabs 05/15/24 08/30/24 Rx propranolol 10 mg tablet 10 mg PO BID #60 tabs 05/15/24 08/30/24 Rx lamotrigine 100 mg tablet 100 mg PO DAILY #30 tabs 06/04/24 08/30/24 Rx ziprasidone HCl 40 mg capsule 40 mg PO BID #60 caps 06/04/24 08/30/24 Rx (Geodon) diazepam 5 mg tablet 2.5 mg (1/2 x 5 mg) PO TID 30 days 07/16/24 08/30/24 Rx #45 tabs albuterol sulfate 90 mcg/actuation 2 inh inhalation Q6H PRN shortness 07/22/24 08/30/24 Rx aerosol inhaler (Ventolin HFA) of breath or wheezing #18 grams fluticasone fur. 100 mcg-umeclid 1 inh inhalation DAILY 90 days #90 07/22/24 08/30/24 Rx 62.5 mcg-vilant 25 mcg blisters inhalat.powder (Trelegy Ellipta) rivaroxaban 10 mg tablet (Xarelto) 10 mg PO DAILY #10 tabs 07/26/24 08/30/24 Rx cyclobenzaprine 5 mg tablet 5 mg PO TID 08/12/24 08/30/24 History duloxetine 30 mg capsule,delayed 90 mg PO DAILY 08/12/24 08/30/24 History release gabapentin 800 mg tablet 800 mg PO TID 08/12/24 08/30/24 History levothyroxine 25 mcg tablet 25 mcg PO 0700 08/12/24 08/30/24 History rimegepant 75 mg disintegrating 75 mg PO Q48H 08/12/24 08/30/24 History tablet (Nurtec ODT) sumatriptan succinate 100 mg tablet 100 mg PO DIRECTED PRN migraine 08/12/24 08/30/24 History headaches torsemide 100 mg tablet 100 mg PO DAILY 08/12/24 08/30/24 History linaclotide 145 mcg capsule 145 mcg PO DAILY #90 caps 08/13/24 08/30/24 Rx (Linzess) oxycodone-acetaminophen 10 mg-325 1 tab PO QIDP PRN Mild Pain (Scale 08/13/24 08/30/24 Rx mg tablet Score 1-4) #120 tabs quetiapine 100 mg tablet (Seroquel) 200 mg (2 x 100 mg) PO HS #60 tabs 08/16/24 08/30/24 Rx sulfamethoxazole 800 1 tab PO BID 7 days #14 tabs 08/17/24 08/30/24 Rx mg-trimethoprim 160 mg tablet (Bactrim DS) New Prescriptions to Start Prescriptions: Allergies Allergy/AdvReac Type Severity Reaction Status Date / Time doxycycline Allergy Severe Blister Verified 07/26/24 14:57 Sulfa (Sulfonamide AdvReac Intermediate Rash Verified 07/26/24 14:57 Antibiotics) amoxicillin AdvReac Verified 07/26/24 14:57 nitrofurantoin (From AdvReac Verified 07/26/24 14:57 Macrobid) Exam Data for Last 24 hours Vital signs and Labs for Last 24 Hours: Temp Pulse Resp BP Pulse Ox O2 Del Method O2 Flow Rate 97.9 F 97 H 16 122/79 88 L BiPAP 3.5 08/30/24 20:23 08/30/24 20:23 08/30/24 20:23 08/30/24 20:23 08/30/24 20:00 08/30/24 23:00 08/30/24 23:00 Laboratory Results - last 24 hr 08/30/24 17:59: SARS-CoV-2 (PCR) Not detected, Influenza A Untype (PCR) Not detected, Influenza Type B (PCR) Not detected 08/30/24 18:00: WBC 8.6, RBC 4.29, Hgb 12.4, Hct 39.6, MCV 92.3, MCH 28.9, MCHC 31.3 L, RDW 14.8, Plt Count 201, MPV 9.9, Neut % (Auto) 72.6, Lymph % (Auto) 19.1, Desha % (Auto) 5.5, Eos % (Auto) 1.9, Baso % (Auto) 0.1, Neut # (Auto) 6.3, Lymph # (Auto) 1.6, Desha # (Auto) 0.5, Eos # (Auto) 0.2, Baso # (Auto) 0.0, Sodium 139, Potassium 4.6, Chloride 98, Carbon Dioxide 35 H, Anion Gap 10.6, BUN 18 H, Creatinine 1.30 H, Estimated Creat Clear 39, Estimated GFR 43 L, Est GFR ( Amer) 52 L, Glucose 122 H, Lactate 1.3, Calcium 9.0, Total Bilirubin 0.3, AST 23, ALT 18, Alkaline Phosphatase 76, Troponin I < 0.01, C-Reactive Protein 50.5 H, Total Protein 7.2, Albumin 4.1, Globulin 3.1, Albumin/Globulin Ratio 1.3 08/30/24 18:13: Urine Color Yellow, Urine Appearance Clear, Urine pH 5.5, Ur Specific [place] 1.025, Urine Protein Negative, Urine Glucose (UA) Negative, Urine Ketones Trace, Urine Blood Negative, Urine Nitrate Negative, Urine Bilirubin Negative, Urine Urobilinogen 0.2, Ur Leukocyte Esterase Negative, Urine RBC None, Urine WBC Occasional, Ur Squamous Epith Cells 3-5, Urine Ba cteria Trace 08/30/24 21:00: Troponin I < 0.01 08/31/24 00:12: Troponin I < 0.01 I & O for Last 24 hours: Intake & Output 08/28/24 08/29/24 08/30/24 08/31/24 23:59 23:59 23:59 23:59 Weight 176.992 kg Constitutional Constitutional: no acute distress and morbidly obese *Routine HEENT Exam Head: Present normocephalic Eye: Present EOMI and PERRL ENT: Present mucous membranes moist *Routine Neck Exam Neck: Present supple; Absent lymphadenopathy *Routine Respiratory Exam Respiratory: Present CTA bilaterally *Routine Cardiovascular Exam Cardiovascular: Present RRR *Routine Abdominal Exam Abdominal: Present soft, normoactive bowel sounds and obese; Absent tenderness *Routine Rectal Exam Rectal:: deferred *Routine Genitalia Exam Genitalia:: deferred *Routine Extremities Exam Extremities: Absent cyanosis, clubbing or edema *Routine Skin Exam Skin: Present warm; Absent rash *Routine Neurological Exam Neurological: Present alert and oriented X3 Assessment and Plan *Assessment and plan (1) Morbid obesity: Status: Acute Category: Medical Code(s): E66.01 - Morbid (severe) obesity due to excess calories (2) Cellulitis of leg, right: Status: Acute Category: Medical Code(s): L03.115 - Cellulitis of right lower limb (3) Abdominal wall cellulitis: Status: Acute Category: Medical Code(s): L03.311 - Cellulitis of abdominal wall (4) Acute on chronic respiratory failure with hypercapnia: Status: Acute Category: Medical Code(s): J96.22 - Acute and chronic respiratory failure with hypercapnia (5) Psoriasis: Status: Acute Category: Medical Code(s): L40.9 - Psoriasis, unspecified (6) History of tracheostomy: Status: Acute Category: Surgical Code(s): Z98.890 - Other specified postprocedural states Plan * Abdominal Wall and Right Lower Extremity Cellulitis * 3-day abdominal pain, RLE redness/pain, Tmax 101?F (afebrile x 24h); morbid obesity, recurrent cellulitis history; mild erythema/tenderness, CT with abdominal wall edema, CRP 50.5 mg/L, WBC 8.6 K/?L; symptoms out of proportion, deeper infection possible. * Continue IV vancomycin (trough goal 15-20 mcg/mL); add IV cefepime 2 g q8h for broader coverage (gram-negatives, anaerobes) given extensive soft tissue and obesity. * Blood cultures x 2, wound culture if drainable; elevate RLE, carlitos erythema borders, monitor q8h for progression. * consider MRI if no improvement in 48h to rule out abscess/fasciitis. * Analgesia with acetaminophen 1 g PO q6h PRN; avoid NSAIDs due to CKD. * Chronic Respiratory Failure with Tracheostomy, Stable * Pickwickian syndrome, tracheostomy, mild SOB increase, no cough/sputum; sats unreported but stable on RA, CT chest negative for pneumonia/PE, VBG pCO2 47.7 mmHg (chronic). * Trach care q8h, suction PRN; O2 titrate to SpO2 92-94% if needed; continue home Trelegy ([id number]) and albuterol PRN. * Monitor respiratory rate, work of breathing q4h; VBG q12h if SOB worsens; pulmonology consult if respiratory decline. * Chronic Kidney Disease (CKD), Stage III, Stable * Cr 1.30 mg/dL (eGFR 43 mL/min/1.73m?), BUN 18 mg/dL; baseline unknown, likely CKD from obesity/HTN; no LEONEL signs (stable UA, no oliguria). * Monitor Cr, BUN q12h x 48h; avoid nephrotoxins; adjust vancomycin/cefepime for eGFR (e.g., vancomycin q12h post-trough, cefepime q12h if CrCl <50 mL/min). * Renal US if Cr rises >0.3 mg/dL; * Morbid Obesity with Pickwickian Syndrome * BMI unreported but morbidly obese, impacts antibiotic penetration, chronic hypoventilation (VBG HCO3 32.7 mmol/L); SOB may relate, CT shows no acute cardiopulmonary issue. * optimize trach positioning for ventilation. * Monitor for IRLANDA worsening, utilizes home CPAP; PT/OT for mobility support. * Hypothyroidism, Stable * On levothyroxine 25 mcg daily; no symptoms, TSH unreported; chronic condition. * Continue levothyroxine 25 mcg PO daily at 0700; check TSH if not recent (goal 0.5-4.5 mIU/L). * Chronic Pain and Psychiatric Conditions, Stable * On cyclobenzaprine 5 mg TID, duloxetine 90 mg daily, gabapentin 800 mg TID (pain); diazepam 2.5 mg TID, lamotrigine 100 mg daily, quetiapine 200 mg HS, ziprasidone 40 mg BID (psych); no acute issues. * Continue cyclobenzaprine, duloxetine, gabapentin for pain; diazepam, lamotrigine, quetiapine, ziprasidone per home regimen; avoid over-sedation with infection. * Chronic Comorbidities * HTN (on losartan 25 mg daily, propranolol 10 mg BID), migraines (rimegepant 75 mg Q48H PRN, sumatriptan 100 mg PRN), constipation (linaclotide 145 mcg daily); stable, no acute impact. * Continue losartan, propranolol; (risk of hypoperfusion); resume rimegepant, sumatriptan PRN migraines; continue linaclotide for bowel function. * Monitor BP q8h (adjust if >160/100 mmHg or <90/60 mmHg); assess bowel sounds q12h. * Disposition * 49F with obesity, chronic respiratory failure, admitted for abdominal/RLE cellulitis; high risk for decompensation; on IV vancomycin, cefepime started. * Heparin 5000 U SQ q8h for DVT prophylaxis (prior rivaroxaban noted); continue omeprazole 40 mg BID for GI protection. * Daily CBC, BMP; CRP q24h to trend inflammation; CT reassessment if no improvement in 48h; ID/pulmonology consults. * Hospitalist follow-up; PT/OT for mobility once stable. * Admit to telemetry; ICU if sepsis progresses
[2024-08-31] MEDS: CEFEPIME HCL 2 GM in 0.9 % SODIUM CHLORIDE 100 ML IV ×2 (01:36→09:01)
[2024-08-31] MEDS: OXYCODONE 10MG W/APAP 325MG TABLET 1 EACH PO ×2 (01:52→08:35)
[2024-08-31] MEDS: ALBUTEROL-HFA 90MCG/PUFF INHALER 8GM 2 PUFF IH ×2 (06:13→17:07)
[2024-08-31] MEDS: LEVOTHYROXINE 25MCG (0.025MG) TAB 25 MCG PO (06:14)
[2024-08-31 07:27] LABS: Basophils % 0.3 % (0.1-2.0); Eosinophils # 0.1 K/mm3 (0.0-0.4); Hematocrit 41.1 % (37.0-47.0); Hemoglobin 12.5 g/dL (12.2-16.2); Lymphocytes % 14.1 % (10-50); Mean Corpuscular HGB Conc 30.4 g/dL (31.8-35.4); Mean Corpuscular Hemoglobin 28.3 pg (27.0-31.2); Mean Platelet Volume 9.5 fl (7.4-10.4); Monocytes # 0.5 K/mm3 (0.1-1.0); Monocytes % 7.2 % (1.7-9.3); Neutrophils # 5.5 K/mm3 (1.8-7.8); Neutrophils % 76.6 % (37.0-80.0); Platelet Count 185 K/mm3 (142-424); Red Blood Count 4.42 M/mm3 (4.20-5.40); Red Cell Distribution Width 14.8 % (11.5-17.5); White Blood Count 7.2 K/mm3 (4.8-10.8)
[2024-08-31 08:01] LABS: Chloride 99 mmol/L (98-107); Potassium 4.4 mmoL/L (3.5-5.1); Sodium 138 mmol/L (136-145)
[2024-08-31 08:04] LABS: Anion Gap 10.4 mEq/L (5-15); Blood Urea Nitrogen 15 mg/dl (7-17); Carbon Dioxide 33 mmol/L (22.0-30.0); Creatinine Clearance Estimated 56 mL/min (50-200); Estimated Glomerular Filt Rate 66 ml/min (>60); GFR (African American) 80 ML/MIN (>60); Glucose 120 mg/dl (74-100)
[2024-08-31 08:05] LABS: Magnesium 1.7 mg/dl (1.6-2.3)
[2024-08-31] MEDS: IRBESARTAN 75MG TABLET 37.5 MG PO (09:02)
[2024-08-31] MEDS: CYCLOBENZAPRINE 10MG TABLET 5 MG PO ×2 (09:03→13:16)
[2024-08-31] MEDS: FLUTICASONE PROP 50MCG NASAL SPRAY 16GM 1 SPRAY NS (09:03)
[2024-08-31] MEDS: TORSEMIDE 20MG TABLET 100 MG PO (09:04)
[2024-08-31] MEDS: GABAPENTIN 800MG TABLET 800 MG PO ×2 (09:05→13:16)
[2024-08-31] MEDS: PROPRANOLOL 20MG TAB 10 MG PO (09:05)
[2024-08-31] MEDS: DULOXETINE 30MG CAPSULE.DR 90 MG PO (09:06)
[2024-08-31] MEDS: lamoTRIgine 100MG TABLET 100 MG PO (09:06)
[2024-08-31] MEDS: ZIPRASIDONE 20MG CAPSULE 40 MG PO (09:07)
[2024-08-31] MEDS: diazePAM 5MG TABLET 2.5 MG PO ×2 (09:07→13:17)
--- NOTE | 2024-08-31 09:34 | PC.NURSE ---
made aware of pt allergy to clinda
--- NOTE | 2024-08-31 10:11 | PC.NURSE ---
Pt requested to have a castro catheter placed due to peeing so much after PO torsemide this am. She stated that she does not take it every day as ordered. stated that he did not want to do a castro but pt could use the purewick. I geena jason in the room and informed pt of what the MD stated. Pt refused the pure wick and asked if I would ask again. Explained that stated that since she can walk he did not want to do a castro.
[2024-08-31] MEDS: FLUTICASONE/UMECLIDIN/VILANTER 100/62.5/25MCG INHALER 1 PUFF IH (10:20)
--- NOTE | 2024-08-31 11:52 | CT_ITS ---
PROCEDURE INFORMATION: Exam: CT Right Lower Extremity With Contrast, Leg Exam date and time: 08/31/2024 12:17 PM Age: 49 years old Clinical indication: Other: Erythema, pain, swelling right lateral calf TECHNIQUE: Imaging protocol: CT of the right lower extremity with intravenous contrast was performed. Exam focused on the lower leg. Radiation optimization: All CT scans at this facility use at least one of these dose optimization techniques: automated exposure control; mA and/or kV adjustment per patient size (includes targeted exams where dose is matched to clinical indication); or iterative reconstruction. Contrast material: ISOVUE; Contrast volume: 100 ml; Contrast route: IV; COMPARISON: CT LOWER LEG RT W CON 02/22/2022 5:26 PM FINDINGS: Bones/joints: There is diffuse osteopenia which somewhat limits bony assessment. 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 Normal alignment without acute fracture or dislocation. Soft tissues: Diffuse subcutaneous edema. No rim enhancing loculated fluid collection identified. Moderate suprapatellar effusion incompletely visualized. IMPRESSION: 1. No acute bony process is identified. 2. 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 3. Diffuse subcutaneous edema may represent cellulitis in light of the clinical presentation. 4. Moderate suprapatellar effusion. 5. No abscess identified.
--- NOTE | 2024-08-31 12:05 | P.CONPHA_ITS ---
Pharmacy Consult Date: 08/31/24 Time: 12:05 Referring provider: DR. GOODMAN Reason for Consult:: VANCOMYCIN DOSING Allergies Allergy/AdvReac Type Severity Reaction Status Date / Time doxycycline Allergy Severe Blister Verified 07/26/24 14:57 clindamycin Allergy Blister Verified 08/31/24 09:11 Sulfa (Sulfonamide AdvReac Intermediate Rash Verified 07/26/24 14:57 Antibiotics) amoxicillin AdvReac Other Verified 08/31/24 09:11 nitrofurantoin (From AdvReac Other Verified 08/31/24 09:11 Macrobid) Home Medications ?Medication ?Instructions ?Recorded ?Confirmed ?Type spironolactone 50 mg tablet 50 mg PO DAILY 90 days #90 tabs 11/09/23 08/30/24 Rx (Aldactone) fluticasone propionate 50 1 spray intranasal DAILY #16 grams 12/22/23 08/30/24 Rx mcg/actuation nasal spray,suspension (Flonase Allergy Relief) omeprazole 40 mg capsule,delayed 40 mg PO BID 12/28/23 08/30/24 History release losartan 25 mg tablet 25 mg PO DAILY #30 tabs 05/15/24 08/30/24 Rx propranolol 10 mg tablet 10 mg PO BID #60 tabs 05/15/24 08/30/24 Rx lamotrigine 100 mg tablet 100 mg PO DAILY #30 tabs 06/04/24 08/30/24 Rx ziprasidone HCl 40 mg capsule 40 mg PO BID #60 caps 06/04/24 08/30/24 Rx (Geodon) diazepam 5 mg tablet 2.5 mg (1/2 x 5 mg) PO TID 30 days 07/16/24 08/30/24 Rx #45 tabs albuterol sulfate 90 mcg/actuation 2 inh inhalation Q6H PRN shortness 07/22/24 08/30/24 Rx aerosol inhaler (Ventolin HFA) of breath or wheezing #18 grams fluticasone fur. 100 mcg-umeclid 1 inh inhalation DAILY 90 days #90 07/22/24 08/30/24 Rx 62.5 mcg-vilant 25 mcg blisters inhalat.powder (Trelegy Ellipta) rivaroxaban 10 mg tablet (Xarelto) 10 mg PO DAILY #10 tabs 07/26/24 08/30/24 Rx cyclobenzaprine 5 mg tablet 5 mg PO TID 08/12/24 08/30/24 History duloxetine 30 mg capsule,delayed 90 mg PO DAILY 08/12/24 08/30/24 History release gabapentin 800 mg tablet 800 mg PO TID 08/12/24 08/30/24 History levothyroxine 25 mcg tablet 25 mcg PO 0700 08/12/24 08/30/24 History rimegepant 75 mg disintegrating 75 mg PO Q48H 08/12/24 08/30/24 History tablet (Nurtec ODT) sumatriptan succinate 100 mg tablet 100 mg PO DIRECTED PRN migraine 08/12/24 08/30/24 History headaches torsemide 100 mg tablet 100 mg PO DAILY 08/12/24 08/30/24 History linaclotide 145 mcg capsule 145 mcg PO DAILY #90 caps 08/13/24 08/30/24 Rx (Linzess) oxycodone-acetaminophen 10 mg-325 1 tab PO QIDP PRN Mild Pain (Scale 08/13/24 08/30/24 Rx mg tablet Score 1-4) #120 tabs quetiapine 100 mg tablet (Seroquel) 200 mg (2 x 100 mg) PO HS #60 tabs 08/16/24 08/30/24 Rx bisacodyl 5 mg tablet,delayed 5 mg PO HSP PRN constipation 08/31/24 08/31/24 History release (Dulcolax (bisacodyl)) ipratropium 0.5 mg-albuterol 3 mg 3 ml inhalation QIDP PRN shortness 08/31/24 08/31/24 History (2.5 mg base)/3 mL nebulization of breath or wheezing soln New Prescriptions to Start Prescriptions: Height: 1.55 m Weight: 176.9 kg Laboratory Results:: Laboratory Results - last 24 hr 08/30/24 17:59: SARS-CoV-2 (PCR) Not detected, Influenza A Untype (PCR) Not detected, Influenza Type B (PCR) Not detected 08/30/24 18:00: WBC 8.6, RBC 4.29, Hgb 12.4, Hct 39.6, MCV 92.3, MCH 28.9, MCHC 31.3 L, RDW 14.8, Plt Count 201, MPV 9.9, Neut % (Auto) 72.6, Lymph % (Auto) 19.1, [place] % (Auto) 5.5, Eos % (Auto) 1.9, Baso % (Auto) 0.1, Neut # (Auto) 6.3, Lymph # (Auto) 1.6, [place] # (Auto) 0.5, Eos # (Auto) 0.2, Baso # (Auto) 0.0, Sodium 139, Potassium 4.6, Chloride 98, Carbon Dioxide 35 H, Anion Gap 10.6, BUN 18 H, Creatinine 1.30 H, Estimated Creat Clear 39, Estimated GFR 43 L, Est GFR ( Amer) 52 L, Glucose 122 H, Lactate 1.3, Calcium 9.0, Total Bilirubin 0.3, AST 23, ALT 18, Alkaline Phosphatase 76, Troponin I < 0.01, C-Reactive Protein 50.5 H, Total Protein 7.2, Albumin 4.1, Globulin 3.1, Albumin/Globulin Ratio 1.3 08/30/24 18:13: Urine Color Yellow, Urine Appearance Clear, Urine pH 5.5, Ur Specific [place] 1.025, Urine Protein Negative, Urine Glucose (UA) Negative, Urine Ketones Trace, Urine Blood Negative, Urine Nitrate Negative, Urine Bilirubin Negative, Urine Urobilinogen 0.2, Ur Leukocyte Esterase Negative, Urine RBC None, Urine WBC Occasional, Ur Squamous Epith Cells 3-5, Urine Bacteria Trace 08/30/24 21:00: Troponin I < 0.01 08/31/24 00:12: Troponin I < 0.01 08/31/24 07:10: WBC 7.2, RBC 4.42, Hgb 12.5, Hct 41.1, MCV 93.0, MCH 28.3, MCHC 30.4 L, RDW 14.8, Plt Count 185, MPV 9.5, Neut % (Auto) 76.6, Lymph % (Auto) 14.1, [place] % (Auto) 7.2, Eos % (Auto) 1.0, Baso % (Auto) 0.3, Neut # (Auto) 5.5, Lymph # (Auto) 1.0, [place] # (Auto) 0.5, Eos # (Auto) 0.1, Baso # (Auto) 0.0, Sodium 138, Potassium 4.4, Chloride 99, Carbon Dioxide 33 H, Anion Gap 10.4, BUN 15, Creatinine 0.90 D, Estimated Creat Clear 56, Estimated GFR 66, Est GFR ( Amer) 80 D, Glucose 120 H, Calcium 9.0, Magnesium 1.7 Medical History: Medical History (Updated 08/30/24 @ 17:51 by Chilo Horta MD) Deliberate self-cutting Otitis externa of left ear Dysphagia Hearing difficulty of left ear Otalgia, left ear Asthma Acute on chronic respiratory failure with hypoxia and hypercapnia Palpitations Ear pain, right Acute and chronic respiratory failure with hypercapnia PTSD (post-traumatic stress disorder) Chest pain Generalized anxiety disorder Recurrent major depression resistant to treatment Sleep apnea History of ectopic History of hyperkalemia Diastolic congestive heart failure Paranoid schizophrenia Uses bilevel positive airway pressure (BPAP) ventilation at home History of sleep apnea History of asthma Cellulitis of right lower extremity Acute and chronic respiratory failure with hypercapnia Pneumonia Acute and chronic respiratory failure Right lower lobe pneumonia History of smoking 30 or more pack years Obesity hypoventilation syndrome Chronic respiratory failure with hypercapnia Severe sepsis COVID-19 Acute and chronic respiratory failure Pneumonia Tracheostomy in place Edema Sinus tachycardia Dizziness Diastolic dysfunction Acute on chronic diastolic heart failure Respiratory failure with hypoxia and hypercapnia Congestive heart failure Acute on chronic diastolic heart failure Elevated d-dimer PAC (premature atrial contraction) Chest pain Dyspnea HTN (hypertension) COPD (chronic obstructive pulmonary disease) Tobacco abuse Abnormal stress test SOB (shortness of breath) Angina, class III Obesity Hypothyroidism (~11/21/17) Asthma Insomnia Depression Anxiety Neuropathy Assessment and Plan Assessment and plan all Dx Assessment and Plan for all problems:: Pharmacokinetic dosing service Objective: Patient: Floor: Age: 49 yo Serum creatinine: 1 mg/dL Height: 61.0 Inches Weight (kg): 177 Assessment: IBW (kg): 47.80 Dosing wt(kg): 177 Estimated Creatinine clearance (ml/min): 50.8 CRCL method: Cockcroft and Gault using ibw(default). Drug selected: Vancomycin Loading dose (mg): 0 Vd (liters): 150.4 (factor used: 0.85 L/kg) Bro (hr-1): 0.047 Half life (hrs): 14.75 Recommended dose: 2750 mg Interval: 18 hrs Infusion time (hrs): 2.0 Predicted peak (mcg/mL): 30.6 Predicted trough (mcg/mL): 14.43 Total body weight is being used for vancomycin dosing. Recommendations: PATIENT RECEIVED VANCOMYCIN 3000 MG X1 DOSE TOTAL OVERNIGHT UPON ADMISSION. RECOMMEND Vancomycin 2750 mg q 18 hrs with an expected Cpeak of 30.6 mcg/ml and an expected Ctrough of 14.43 mcg/ml ----Vanco only - ignore for aminoglycosides----- CLvanco= 7.07 L/hr AUC 0-24 /JOAN Data: JOAN 0.5 mcg/mL: AUC/JOAN: 1037.2 JOAN 1.0 mcg/mL: AUC/JOAN: 518.6 --------- JOAN 1.5 mcg/mL: AUC/JOAN: 345.7 JOAN 2.0 mcg/mL: AUC/JOAN: 259.3
[2024-08-31] MEDS: IOPAMIDOL-370 (76%);100ML BOTTLE 100 ML IV (12:23)
[2024-08-31] MEDS: SODIUM CHLORIDE 0.9% 10ML SYR (RAD ONLY) 10 ML IV (12:23)
[2024-08-31 12:31] LABS: C-Reactive Protein 56.4 mg/L (0-4)
[2024-08-31] MEDS: METHYLPREDNISOLONE SOD SUCC 125MG VIAL 125 MG IV (12:49)
[2024-08-31 12:58] LABS: Thyroid Stimulating Hormone 2.59 uIU/mL (0.465-4.68)
[2024-08-31] MEDS: MORPHINE 4MG/ML SYRINGE 4 MG IV ×2 (13:05→17:06)
[2024-08-31 13:08] LABS: NT Pro Brain Natriuretic Pep. 160 pg/mL (0-125)
[2024-08-31 13:16] LABS: Procalcitonin 0.084 ng/mL (0.0-2.0)
--- NOTE | 2024-08-31 13:22 | EXP.PN ---
Subjective *Date: 08/31/24 *Time: 13:22 Exam Data for Last 24 hours Vital signs and Labs for Last 24 Hours: Temp Pulse Resp BP Pulse Ox O2 Del Method O2 Flow Rate 97.9 F 90 20 104/49 L 91 L Room Air 3.5 08/31/24 07:50 08/31/24 08:00 08/31/24 07:50 08/31/24 07:50 08/31/24 10:21 08/31/24 11:00 08/31/24 01:00 Laboratory Results - last 24 hr 08/30/24 17:59: SARS-CoV-2 (PCR) Not detected, Influenza A Untype (PCR) Not detected, Influenza Type B (PCR) Not detected 08/30/24 18:00: WBC 8.6, RBC 4.29, Hgb 12.4, Hct 39.6, MCV 92.3, MCH 28.9, MCHC 31.3 L, RDW 14.8, Plt Count 201, MPV 9.9, Neut % (Auto) 72.6, Lymph % (Auto) 19.1, [place] % (Auto) 5.5, Eos % (Auto) 1.9, Baso % (Auto) 0.1, Neut # (Auto) 6.3, Lymph # (Auto) 1.6, [place] # (Auto) 0.5, Eos # (Auto) 0.2, Baso # (Auto) 0.0, Sodium 139, Potassium 4.6, Chloride 98, Carbon Dioxide 35 H, Anion Gap 10.6, BUN 18 H, Creatinine 1.30 H, Estimated Creat Clear 39, Estimated GFR 43 L, Est GFR ( Amer) 52 L, Glucose 122 H, Lactate 1.3, Calcium 9.0, Total Bilirubin 0.3, AST 23, ALT 18, Alkaline Phosphatase 76, Troponin I < 0.01, C-Reactive Protein 50.5 H, Total Protein 7.2, Albumin 4.1, Globulin 3.1, Albumin/Globulin Ratio 1.3 08/30/24 18:13: Urine Color Yellow, Urine Appearance Clear, Urine pH 5.5, Ur Specific [place] 1.025, Urine Protein Negative, Urine Glucose (UA) Negative, Urine Ketones Trace, Urine Blood Negative, Urine Nitrate Negative, Urine Bilirubin Negative, Urine Urobilinogen 0.2, Ur Leukocyte Esterase Negative, Urine RBC None, Urine WBC Occasional, Ur Squamous Epith Cells 3-5, Urine Bacteria Trace 08/30/24 21:00: Troponin I < 0.01 08/31/24 00:12: Troponin I < 0.01 08/31/24 07:10: WBC 7.2, RBC 4.42, Hgb 12.5, Hct 41.1, MCV 93.0, MCH 28.3, MCHC 30.4 L, RDW 14.8, Plt Count 185, MPV 9.5, Neut % (Auto) 76.6, Lymph % (Auto) 14.1, [place] % (Auto) 7.2, Eos % (Auto) 1.0, Baso % (Auto) 0.3, Neut # (Auto) 5.5, Lymph # (Auto) 1.0, [place] # (Auto) 0.5, Eos # (Auto) 0.1, Baso # (Auto) 0.0, Sodium 138, Potassium 4.4, Chloride 99, Carbon Dioxide 33 H, Anion Gap 10.4, BUN 15, Creatinine 0.90 D, Estimated Creat Clear 56, Estimated GFR 66, Est GFR ( Amer) 80 D, Glucose 120 H, Calcium 9.0, Magnesium 1.7 08/31/24 12:02: C-Reactive Protein 56.4 H, NT-Pro-B Natriuret Pep 160 H, Procalcitonin 0.084, TSH 2.59 I & O for Last 24 hours: Intake & Output 08/28/24 08/29/24 08/30/24 08/31/24 23:59 23:59 23:59 23:59 Intake Total 1100 / 1100 Output Total 400 / 400 Balance 700 / 700 Weight 176.992 kg 176.9 kg Assessment and Plan *Assessment and plan (1) Rash: Status: Acute Category: Medical Code(s): R21 - Rash and other nonspecific skin eruption Plan Ms. Badillo is a 49-year-old female who presented with right lower extremity and abdominal pain, swelling admitted for suspected cellulitis. #Cellulitis versus drug reaction ? Patient has right lower extremity darkened skin and tenderness, including abdominal induration and tenderness. ? This does not meet the classical presentation of cellulitis, though patient has had MRSA infections in the past. ? WBC normal, CRP 56 but lower than her chronic levels. Vitals normal. No fevers here. ? Patient has taken 5-day course of Bactrim, last dose just a few days ago. I suspect drug reaction from this medication. Will trial steroids. ? IV Solu-Medrol 125 mg ordered. Follow-up on response. ? Continue IV cefepime for now. Vancomycin discontinued. ? Follow-up right lower extremity CT. ? Follow-up CBC, CRP, ESR in the morning. #COPD #Obesity hypoventilation syndrome ? Continue home Trelegy. Currently stable. #HFpEF #Hypertension ? Currently stable. Continue home torsemide. ? Continue home irbesartan, propranolol. #History of suspected DVT ? Continue home Xarelto. #Anxiety/depression ? Continue home diazepam, lamotrigine, quetiapine, ziprasidone. QTc 400. DNR/DNI DVT prophylaxis: Xarelto
[2024-08-31 13:53] LABS: Erythrocyte Sedimentation Rate 37 mm/hr (0-20)
[2024-08-31 15:04] LABS: Free T4 (Free Thyroxine) 1.06 ng/dl (0.78-2.19)
[2024-08-31 15:32] LABS: Hemoglobin A1C 5.3 % (4.0-6.0)
[2024-08-31] MEDS: RIVAROXABAN 10MG TABLET 10 MG PO (16:48)
--- NOTE | 2024-08-31 17:47 | P.DS_ITS ---
General Admission date:: 08/30/24 HPI HPI HPI: A 49-year-old female, morbidly obese with a history of Pickwickian syndrome, chronic respiratory failure with tracheostomy, and recurrent cellulitis, presents to the emergency department with abdominal pain, right lower extremity redness, and fever. She reports a 3-day history of increasing abdominal discomfort and pain with erythema on the right lateral lower leg, noting similar episodes in the past requiring antibiotics and hospitalization. She had a Tmax of 101?F within the last 48 hours but has been afebrile for 24 hours. She endorses mild increased shortness of breath without worsening cough, sputum production, or urinary symptoms. History was obtained from the patient. On arrival, she is hemodynamically stable, with unreported vital signs but noted to have mild erythema and tenderness of the abdominal wall and right lower extremity. The differential diagnosis includes abdominal wall and right lower extremity cellulitis, pulmonary embolism, pneumonia, and urinary tract i nfection. Workup included labs, chest/abdomen/pelvis CT, and respiratory viral panel. Labs showed WBC 8.6 K/?L, creatinine 1.30 mg/dL (eGFR 43 mL/min/1.73m?), glucose 122 mg/dL, CRP 50.5 mg/L, and normal troponin; urinalysis was unremarkable. CT scans, personally interpreted, revealed no emergent conditions but showed anterior abdominal wall edema consistent with cellulitis, with no evidence of PE or pneumonia. She was initiated on IV vancomycin for cellulitis, given her extensive soft tissue involvement and poor oral antibiotic penetration due to morbid obesity. Her symptoms appeared out of proportion to the mild erythema, raising concern for deeper infection, though CT findings supported cellulitis. Given her history of recurrent episodes and current presentation, this most likely represents abdominal wall and right lower extremity cellulitis. An interactive discussion with the hospitalist confirmed admission for IV antibiotics, and the patient agreed to inpatient management. Hospital Course Hospital Course Hospital Course: Ms. Badillo is a 49-year-old female who presented with right lower extremity and abdominal pain, swelling admitted for suspected cellulitis. #Cellulitis versus drug reaction #History of MRSA ? Patient has right lower extremity darkened skin and tenderness, including abdominal induration and tenderness. ? This does not meet the classical presentation of cellulitis, though patient has had MRSA infections in the past. ? WBC normal, CRP 56 but lower than her chronic levels. Vitals normal. No fevers here, though reportedly had fever of 101 Fahrenheit at home last night.. ? Patient has taken 5-day course of Bactrim, last dose just a few days ago. Possible drug reaction. ? Patient was started on vancomycin, cefepime and Solu-Medrol with improvement in symptoms. Given this, patient really wanted to go home today which I believe is reasonable as patient is not septic, there is minimal erythema and tenderness. ? Discharged with linezolid (MRSA coverage, previously resistant to doxycycline and clindamycin) in 9 days and prednisone. Advised patient to call back if linezolid is not covered, at which point Dalvance will be ordered. #COPD #Obesity hypoventilation syndrome ? Continue home Trelegy. Currently stable. #HFpEF #Hypertension ? Currently stable. Continue home torsemide. ? Continue home irbesartan, propranolol. #History of suspected DVT ? Continue home Xarelto. #Anxiety/depression ? Continue home diazepam, lamotrigine, quetiapine, ziprasidone. QTc 400. Total time spent on discharge: 40 minutes on chart review, counseling, documentation, and direct care with patient. Exam Data for Last 24 hours Vital signs and Labs for Last 24 Hours: Temp Pulse Resp BP Pulse Ox O2 Del Method O2 Flow Rate 98.3 F 87 16 119/79 92 L Room Air 3.5 08/31/24 16:00 08/31/24 16:00 08/31/24 16:00 08/31/24 16:00 08/31/24 16:00 08/31/24 17:00 08/31/24 01:00 Laboratory Results - last 24 hr 08/30/24 17:59: SARS-CoV-2 (PCR) Not detected, Influenza A Untype (PCR) Not detected, Influenza Type B (PCR) Not detected 08/30/24 18:00: WBC 8.6, RBC 4.29, Hgb 12.4, Hct 39.6, MCV 92.3, MCH 28.9, MCHC 31.3 L, RDW 14.8, Plt Count 201, MPV 9.9, Neut % (Auto) 72.6, Lymph % (Auto) 19.1, Harlan % (Auto) 5.5, Eos % (Auto) 1.9, Baso % (Auto) 0.1, Neut # (Auto) 6.3, Lymph # (Auto) 1.6, Harlan # (Auto) 0.5, Eos # (Auto) 0.2, Baso # (Auto) 0.0, Sodium 139, Potassium 4.6, Chloride 98, Carbon Dioxide 35 H, Anion Gap 10.6, BUN 18 H, Creatinine 1.30 H, Estimated Creat Clear 39, Estimated GFR 43 L, Est GFR ( Amer) 52 L, Glucose 122 H, Lactate 1.3, Calcium 9.0, Total Bilirubin 0.3, AST 23, ALT 18, Alkaline Phosphatase 76, Troponin I < 0.01, C-Reactive Protein 50.5 H, Total Protein 7.2, Albumin 4.1, Globulin 3.1, Albumin/Globulin Ratio 1.3 08/30/24 18:13: Urine Color Yellow, Urine Appearance Clear, Urine pH 5.5, Ur Specific [place] 1.025, Urine Protein Negative, Urine Glucose (UA) Negative, Urine Ketones Trace, Urine Blood Negative, Urine Nitrate Negative, Urine Bilirubin Negative, Urine Urobilinogen 0.2, Ur Leukocyte Esterase Negative, Urine RBC None, Urine WBC Occasional, Ur Squamous Epith Cells 3-5, Urine Bacteria Trace 08/30/24 21:00: Troponin I < 0.01 08/31/24 00:12: Troponin I < 0.01 08/31/24 07:10: WBC 7.2, RBC 4.42, Hgb 12.5, Hct 41.1, MCV 93.0, MCH 28.3, MCHC 30.4 L, RDW 14.8, Plt Count 185, MPV 9.5, Neut % (Auto) 76.6, Lymph % (Auto) 14.1, Harlan % (Auto) 7.2, Eos % (Auto) 1.0, Baso % (Auto) 0.3, Neut # (Auto) 5.5, Lymph # (Auto) 1.0, Harlan # (Auto) 0.5, Eos # (Auto) 0.1, Baso # (Auto) 0.0, Sodium 138, Potassium 4.4, Chloride 99, Carbon Dioxide 33 H, Anion Gap 10.4, BUN 15, Creatinine 0.90 D, Estimated Creat Clear 56, Estimated GFR 66, Est GFR ( Amer) 80 D, Glucose 120 H, Calcium 9.0, Magnesium 1.7 08/31/24 12:02: ESR 37 H, Hemoglobin A1c 5.3, C-Reactive Protein 56.4 H, NT-Pro-B Natriuret Pep 160 H, Procalcitonin 0.084, TSH 2.59, Free T4 1.06 I & O for Last 24 hours: Intake & Output 08/28/24 08/29/24 08/30/24 08/31/24 23:59 23:59 23:59 23:59 Intake Total 1500 / 1500 Output Total 400 / 400 Balance 1100 / 1100 Weight 176.992 kg 176.9 kg Constitutional Constitutional: no acute distress, morbidly obese and chronically ill appearing *Routine HEENT Exam Head: Present normocephalic Eye: Present EOMI and PERRL ENT: Present mucous membranes moist Comments: Cushingoid face, tracheostomy in place with no drainage *Routine Neck Exam Neck: Present supple; Absent lymphadenopathy Comments: Trach collar in place with passy rayo valve *Routine Respiratory Exam Respiratory: Present CTA bilaterally and distant breath sounds; Absent prolonged expiratory phase, rhonchi or wheezes *Routine Cardiovascular Exam Cardiovascular: Present RRR; Absent murmur *Routine Abdominal Exam Abdominal: Present soft and normoactive bowel sounds; Absent tenderness *Routine Rectal Exam Patient deferred: visual exam *Routine Exam Patient deferred: external exam *Routine Extremities Exam Extremities: Present edema; Absent cyanosis or clubbing *Routine Skin Exam Skin: Present wounds; Absent rash *Routine Neurological Exam Neurological: Present alert, oriented X3 and moving all extremities; Absent altered mental status Routine Psychiatric Exam Psychiatric: Present normal affect Results Data Completed and Pending Labs on day of discharge: Labs from last 24 hours 08/31/24 08/31/24 08/31/24 12:02 07:10 00:12 WBC 7.2 RBC 4.42 Hgb 12.5 Hct 41.1 MCV 93.0 MCH 28.3 MCHC 30.4 L RDW 14.8 Plt Count 185 MPV 9.5 Neut % (Auto) 76.6 Lymph % (Auto) 14.1 Harlan % (Auto) 7.2 Eos % (Auto) 1.0 Baso % (Auto) 0.3 Neut # (Auto) 5.5 Lymph # (Auto) 1.0 Harlan # (Auto) 0.5 Eos # (Auto) 0.1 Baso # (Auto) 0.0 ESR 37 H Sodium 138 Potassium 4.4 Chloride 99 Carbon Dioxide 33 H Anion Gap 10.4 BUN 15 Creatinine 0.90 D Estimated Creat Clear 56 Estimated GFR 66 Est GFR ( Amer) 80 D Glucose 120 H Hemoglobin A1c 5.3 Lactate Calcium 9.0 Magnesium 1.7 Total Bilirubin AST ALT Alkaline Phosphatase Troponin I < 0.01 C-Reactive Protein 56.4 H NT-Pro-B Natriuret Pep 160 H Total Protein Albumin Globulin Albumin/Globulin Ratio Procalcitonin 0.084 TSH 2.59 Free T4 1.06 Urine Color Urine Appearance Urine pH Ur Specific [place] Urine Protein Urine Glucose (UA) Urine Ketones Urine Blood Urine Nitrate Urine Bilirubin Urine Urobilinogen Ur Leukocyte Esterase Urine RBC Urine WBC Ur Squamous Epith Cells Urine Bacteria SARS-CoV-2 (PCR) Influenza A Untype (PCR) Influenza Type B (PCR) 08/30/24 08/30/24 08/30/24 21:00 18:13 18:00 WBC 8.6 RBC 4.29 Hgb 12.4 Hct 39.6 MCV 92.3 MCH 28.9 MCHC 31.3 L RDW 14.8 Plt Count 201 MPV 9.9 Neut % (Auto) 72.6 Lymph % (Auto) 19.1 Harlan % (Auto) 5.5 Eos % (Auto) 1.9 Baso % (Auto) 0.1 Neut # (Auto) 6.3 Lymph # (Auto) 1.6 Harlan # (Auto) 0.5 Eos # (Auto) 0.2 Baso # (Auto) 0.0 ESR Sodium 139 Potassium 4.6 Chloride 98 Carbon Dioxide 35 H Anion Gap 10.6 BUN 18 H Creatinine 1.30 H Estimated Creat Clear 39 Estimated GFR 43 L Est GFR ( Amer) 52 L Glucose 122 H Hemoglobin A1c Lactate 1.3 Calcium 9.0 Magnesium Total Bilirubin 0.3 AST 23 ALT 18 Alkaline Phosphatase 76 Troponin I < 0.01 < 0.01 C-Reactive Protein 50.5 H NT-Pro-B Natriuret Pep Total Protein 7.2 Albumin 4.1 Globulin 3.1 Albumin/Globulin Ratio 1.3 Procalcitonin TSH Free T4 Urine Color Yellow Urine Appearance Clear Urine pH 5.5 Ur Specific [place] 1.025 Urine Protein Negative Urine Glucose (UA) Negative Urine Ketones Trace Urine Blood Negative Urine Nitrate Negative Urine Bilirubin Negative Urine Urobilinogen 0.2 Ur Leukocyte Esterase Negative Urine RBC None Urine WBC Occasional Ur Squamous Epith Cells 3-5 Urine Bacteria Trace SARS-CoV-2 (PCR) Influenza A Untype (PCR) Influenza Type B (PCR) 08/30/24 17:59 WBC RBC Hgb Hct MCV MCH MCHC RDW Plt Count MPV Neut % (Auto) Lymph % (Auto) Harlan % (Auto) Eos % (Auto) Baso % (Auto) Neut # (Auto) Lymph # (Auto) Harlan # (Auto) Eos # (Auto) Baso # (Auto) ESR Sodium Potassium Chloride Carbon Dioxide Anion Gap BUN Creatinine Estimated Creat Clear Estimated GFR Est GFR ( Amer) Glucose Hemoglobin A1c Lactate Calcium Magnesium Total Bilirubin AST ALT Alkaline Phosphatase Troponin I C-Reactive Protein NT-Pro-B Natriuret Pep Total Protein Albumin Globulin Albumin/Globulin Ratio Procalcitonin TSH Free T4 Urine Color Urine Appearance Urine pH Ur Specific [place] Urine Protein Urine Glucose (UA) Urine Ketones Urine Blood Urine Nitrate Urine Bilirubin Urine Urobilinogen Ur Leukocyte Esterase Urine RBC Urine WBC Ur Squamous Epith Cells Urine Bacteria SARS-CoV-2 (PCR) Not detected Influenza A Untype (PCR) Not detected Influenza Type B (PCR) Not detected DS: Diagnosis Discharge Diagnosis (1) Rash: Status: Acute Code(s): R21 - Rash and other nonspecific skin eruption Meds Home Medications and Allergies Home Medications ?Medication ?Instructions ?Recorded ?Confirmed ?Type spironolactone 50 mg tablet 50 mg PO DAILY 90 days #90 tabs 11/09/23 08/30/24 Rx (Aldactone) fluticasone propionate 50 1 spray intranasal DAILY #16 grams 12/22/23 08/30/24 Rx mcg/actuation nasal spray,suspension (Flonase Allergy Relief) omeprazole 40 mg capsule,delayed 40 mg PO BID 12/28/23 08/30/24 History release losartan 25 mg tablet 25 mg PO DAILY #30 tabs 05/15/24 08/30/24 Rx propranolol 10 mg tablet 10 mg PO BID #60 tabs 05/15/24 08/30/24 Rx lamotrigine 100 mg tablet 100 mg PO DAILY #30 tabs 06/04/24 08/30/24 Rx diazepam 5 mg tablet 2.5 mg (1/2 x 5 mg) PO TID 30 days 07/16/24 08/30/24 Rx #45 tabs albuterol sulfate 90 mcg/actuation 2 inh inhalation Q6H PRN shortness 07/22/24 08/30/24 Rx aerosol inhaler (Ventolin HFA) of breath or wheezing #18 grams fluticasone fur. 100 mcg-umeclid 1 inh inhalation DAILY 90 days #90 07/22/24 08/30/24 Rx 62.5 mcg-vilant 25 mcg blisters inhalat.powder (Trelegy Ellipta) rivaroxaban 10 mg tablet (Xarelto) 10 mg PO DAILY #10 tabs 07/26/24 08/30/24 Rx cyclobenzaprine 5 mg tablet 5 mg PO TID 08/12/24 08/30/24 History duloxetine 30 mg capsule,delayed 90 mg PO DAILY 08/12/24 08/30/24 History release levothyroxine 25 mcg tablet 25 mcg PO 0700 08/12/24 08/30/24 History rimegepant 75 mg disintegrating 75 mg PO Q48H 08/12/24 08/30/24 History tablet (Nurtec ODT) sumatriptan succinate 100 mg tablet 100 mg PO DIRECTED PRN migraine 08/12/24 08/30/24 History headaches torsemide 100 mg tablet 100 mg PO DAILY 08/12/24 08/30/24 History linaclotide 145 mcg capsule 145 mcg PO DAILY #90 caps 08/13/24 08/30/24 Rx (Linzess) oxycodone-acetaminophen 10 mg-325 1 tab PO QIDP PRN Mild Pain (Scale 08/13/24 08/30/24 Rx mg tablet Score 1-4) #120 tabs quetiapine 100 mg tablet (Seroquel) 200 mg (2 x 100 mg) PO HS #60 tabs 08/16/24 08/30/24 Rx bisacodyl 5 mg tablet,delayed 5 mg PO HSP PRN constipation 08/31/24 08/31/24 History release (Dulcolax (bisacodyl)) ipratropium 0.5 mg-albuterol 3 mg 3 ml inhalation QIDP PRN shortness 08/31/24 08/31/24 History (2.5 mg base)/3 mL nebulization of breath or wheezing soln linezolid 600 mg tablet 600 mg PO BID 9 days #18 tabs 08/31/24 Rx prednisone 20 mg tablet 20 mg PO DAILY 4 days #4 tabs 08/31/24 Rx semaglutide 0.25 mg or 0.5 mg (2 0.25 mg (0.368 mL) SQ WEEKLY #3 mL 08/31/24 Rx mg/3 mL) subcutaneous pen injector (Ozempic) gabapentin 800 mg tablet 800 mg PO TID #90 tabs 09/06/24 Rx ziprasidone HCl 40 mg capsule 40 mg PO BID #60 caps 09/06/24 Rx (Geodon) New Prescriptions to Start Prescriptions: linezolid Owen Bustamante prednisone Owen Bustamante semaglutide [Ozempic] Owen Bustamante Allergies Allergy/AdvReac Type Severity Reaction Status Date / Time doxycycline Allergy Severe Blister Verified 07/26/24 14:57 clindamycin Allergy Blister Verified 08/31/24 09:11 Sulfa (Sulfonamide AdvReac Intermediate Rash Verified 07/26/24 14:57 Antibiotics) amoxicillin AdvReac Other Verified 08/31/24 09:11 nitrofurantoin (From AdvReac Other Verified 08/31/24 09:11 Macrobid) Discharge Plan Disposition Patient Disposition: Home, Self-Care Condition: Fair Follow up Plan Follow up with: Mario Sher MD [Staff Physician] - Enter time for follow up (please call monday morning for a post hospital d/c appointment) Prescriptions/Medication Reconciliation: New linezolid 600 mg tablet 600 mg PO BID 9 Days Qty: 18 0RF prednisone 20 mg tablet 20 mg PO DAILY 4 Days Qty: 4 0RF Ozempic 0.25 mg or 0.5 mg (2 mg/3 mL) pen injector 0.25 mg SQ WEEKLY Qty: 3 0RF Rx Instructions: for 4 weeks Continued diazepam 5 mg tablet 2.5 mg PO TID 30 Days Qty: 45 1RF fluticasone propionate [Flonase Allergy Relief] 50 mcg/actuation spray,suspension 1 spray intranasal DAILY Qty: 16 2RF Rx Instructions: administer into each nostril lamotrigine 100 mg tablet 100 mg PO DAILY Qty: 30 3RF albuterol sulfate [Ventolin HFA] 90 mcg/actuation HFA aerosol inhaler 2 inh inhalation Q6H PRN (Reason: shortness of breath or wheezing) Qty: 18 3RF Trelegy Ellipta 100-62.5-25 mcg blister with device 1 inh inhalation DAILY 90 Days Qty: 90 3RF Xarelto 10 mg tablet 10 mg PO DAILY Qty: 10 0RF spironolactone [Aldactone] 50 mg tablet 50 mg PO DAILY 90 Days Qty: 90 4RF losartan 25 mg tablet 25 mg PO DAILY Qty: 30 5RF propranolol 10 mg tablet 10 mg PO BID Qty: 60 5RF Linzess 145 mcg capsule 145 mcg PO DAILY Qty: 90 2RF oxycodone-acetaminophen 10-325 mg tablet 1 tab PO QIDP PRN (Reason: Mild Pain (Scale Score 1-4)) Qty: 120 0RF quetiapine [Seroquel] 100 mg tablet 200 mg PO HS Qty: 60 0RF ipratropium-albuterol 0.5 mg-3 mg(2.5 mg base)/3 mL solution for nebulization 3 ml inhalation QIDP PRN (Reason: shortness of breath or wheezing) bisacodyl [Dulcolax (bisacodyl)] 5 mg tablet,delayed release (DR/EC) 5 mg PO HSP PRN (Reason: constipation) omeprazole 40 mg capsule,delayed release(DR/EC) 40 mg PO BID torsemide 100 mg tablet 100 mg PO DAILY Patient Comments: TAKE ONE TABLET BY MOUTH EVERY DAY FOR fluid sumatriptan succinate 100 mg tablet 100 mg PO DIRECTED PRN (Reason: migraine headaches) Rx Instructions: TAKE 1 TABLET BY MOUTH AT ONSET OF MIGRAINE. MAY REPEAT ONCE AFTER 2 HOURS IF NEEDED levothyroxine 25 mcg tablet 25 mcg PO 0700 cyclobenzaprine 5 mg tablet 5 mg PO TID duloxetine 30 mg capsule,delayed release(DR/EC) 90 mg PO DAILY Nurtec ODT 75 mg tablet,disintegrating 75 mg PO Q48H Rx Instructions: DISSOLVE ONE TABLET in MOUTH EVERY OTHER DAY No Action gabapentin 800 mg tablet 800 mg PO TID Qty: 90 1RF ziprasidone HCl [Geodon] 40 mg capsule 40 mg PO BID Qty: 60 2RF Rx Instructions: give with food (meal/snack) Problem Reconciliation Problems Reviewed?: Yes Patient Discharge Instructions Patient Instructions: DI for Cellulitis -- Adult Print Language: Irish Providers Primary Care Provider: Provider,Referral Admit Provider: Owen Bustamante Attending Provider: Owen Bustamante
--- NOTE | 2024-09-02 13:13 | SW/DCPLANNER ---
Spoke with patient on the phone. Patient stated that she is doing okay. Patient stated that she has not called to schedule her upcoming appointment. Patient stated that she was able to get one of her new medicines picked up. Patient stated that she has no concerns or questions at this time. Mattie Choudhary
== END 2024-08-31 18:29 | disposition home or self-care (01) ==
LOC: ER 19:40 → 2ND 20:19
PROVIDERS: Nurse Practitioner Family; Admitting Provider Student in an Organized Health Care Education/Training Program; Emergency Provider Student in an Organized Health Care Education/Training Program; Visit Provider Student in an Organized Health Care Education/Training Program
DX: L03.311 Cellulitis of abdominal wall (principal); L03.115 Cellulitis of right lower limb; I11.0 Hypertensive heart disease with heart failure; I50.30 Unspecified diastolic (congestive) heart failure; I49.1 Atrial premature depolarization; G62.9 Polyneuropathy, unspecified; E03.9 Hypothyroidism, unspecified; L53.9 Erythematous condition, unspecified; J44.89 Other specified chronic obstructive pulmonary disease; L40.9 Psoriasis, unspecified; J96.22 Acute and chronic respiratory failure with hypercapnia; G47.00 Insomnia, unspecified; F17.210 Nicotine dependence, cigarettes, uncomplicated; E66.2 Morbid (severe) obesity with alveolar hypoventilation; F41.9 Anxiety disorder, unspecified; F33.9 Major depressive disorder, recurrent, unspecified; F43.10 Post-traumatic stress disorder, unspecified; F12.90 Cannabis use, unspecified, uncomplicated; F10.21 Alcohol dependence, in remission; Z88.1 Allergy status to other antibiotic agents; Z22.322 Carrier or suspected carrier of Methicillin resistant Staphylococcus aureus; Z88.2 Allergy status to sulfonamides; Z98.890 Other specified postprocedural states; F20.0 Paranoid schizophrenia; Z68.45 Body mass index [BMI] 70 or greater, adult; Z93.0 Tracheostomy status; Z99.89 Dependence on other enabling machines and devices; Z90.49 Acquired absence of other specified parts of digestive tract; Z90.79 Acquired absence of other genital organ(s); Z79.51 Long term (current) use of inhaled steroids; Z79.899 Other long term (current) drug therapy; Z79.891 Long term (current) use of opiate analgesic; Z79.2 Long term (current) use of antibiotics; E66.01 Morbid (severe) obesity due to excess calories
CPT/HCPCS: 36415; 71275; 73701; 74177; 80048; 80053; 81001; 83036; 83605; 83735; 83880; 84145; 84439; 84443; 84484; 85025; 85651; 86140; 87040; 87636; 94640; 99285; G0378; J2270; J2919; J3370; J3372; Q9967

== ENCOUNTER 2024-09-03 12:35 | Outpatient (CLI) | payer MEDICAID, SELFPAY ==
[2024-09-03] MEDS: DALBAVANCIN HCL 1,500 MG in DEXTROSE 5 % IN WATER 250 ML 500 MG IV (13:10)
[2024-09-03 14:00] VITALS: BP 124/71; PULSE 76; RESP 18; TEMP 36.7; O2SAT 99
== END 2024-09-03 14:05 | disposition home or self-care (01) ==
LOC: INF 12:36
PROVIDERS: PCP Family Medicine; Visit Provider Student in an Organized Health Care Education/Training Program
DX: J95.03 Malfunction of tracheostomy stoma (principal); E66.2 Morbid (severe) obesity with alveolar hypoventilation; J96.10 Chronic respiratory failure, unspecified whether with hypoxia or hypercapnia
CPT/HCPCS: 96365; J0875; J7060

== ENCOUNTER 2024-09-09 17:21 | Emergency (ER) | payer MEDICAID, SELFPAY ==
[2024-09-09 17:31] VITALS: BP 161/94; PULSE 91; RESP 19; TEMP 36.7; O2SAT 88; BMI 69.9
[2024-09-09 18:18] LABS: Basophils % 0.3 % (0.1-2.0); Eosinophils # 0.1 K/mm3 (0.0-0.4); Eosinophils % 1.1 % (0.1-12.0); Hemoglobin 12.9 g/dL (12.2-16.2); Lymphocytes # 1.8 K/mm3 (0.7-4.5); Lymphocytes % 18.5 % (10-50); Mean Corpuscular HGB Conc 30.7 g/dL (31.8-35.4); Mean Corpuscular Hemoglobin 28.2 pg (27.0-31.2); Mean Corpuscular Volume 91.9 fl (81-99); Mean Platelet Volume 9.7 fl (7.4-10.4); Monocytes # 0.7 K/mm3 (0.1-1.0); Monocytes % 7.1 % (1.7-9.3); Neutrophils # 6.9 K/mm3 (1.8-7.8); Neutrophils % 71.5 % (37.0-80.0); Platelet Count 188 K/mm3 (142-424); Red Blood Count 4.57 M/mm3 (4.20-5.40); Red Cell Distribution Width 14.8 % (11.5-17.5); White Blood Count 9.6 K/mm3 (4.8-10.8)
--- NOTE | 2024-09-09 18:27 | ED_ITS ---
Discharge Plan Disposition Patient Disposition: Home, Self-Care Chief Complaint: Skin/Abscess/Foreign Body Prescriptions Prescriptions: No Action diazepam 5 mg tablet 2.5 mg PO TID 30 Days Qty: 45 1RF fluticasone propionate [Flonase Allergy Relief] 50 mcg/actuation spray,suspension 1 spray intranasal DAILY Qty: 16 2RF Rx Instructions: administer into each nostril lamotrigine 100 mg tablet 100 mg PO DAILY Qty: 30 3RF albuterol sulfate [Ventolin HFA] 90 mcg/actuation HFA aerosol inhaler 2 inh inhalation Q6H PRN (Reason: shortness of breath or wheezing) Qty: 18 3RF Trelegy Ellipta 100-62.5-25 mcg blister with device 1 inh inhalation DAILY 90 Days Qty: 90 3RF Xarelto 10 mg tablet 10 mg PO DAILY Qty: 10 0RF spironolactone [Aldactone] 50 mg tablet 50 mg PO DAILY 90 Days Qty: 90 4RF losartan 25 mg tablet 25 mg PO DAILY Qty: 30 5RF propranolol 10 mg tablet 10 mg PO BID Qty: 60 5RF Linzess 145 mcg capsule 145 mcg PO DAILY Qty: 90 2RF oxycodone-acetaminophen 10-325 mg tablet 1 tab PO QIDP PRN (Reason: Mild Pain (Scale Score 1-4)) Qty: 120 0RF quetiapine [Seroquel] 100 mg tablet 200 mg PO HS Qty: 60 0RF gabapentin 800 mg tablet 800 mg PO TID Qty: 90 1RF ziprasidone HCl [Geodon] 40 mg capsule 40 mg PO BID Qty: 60 2RF Rx Instructions: give with food (meal/snack) ipratropium-albuterol 0.5 mg-3 mg(2.5 mg base)/3 mL solution for nebulization 3 ml inhalation QIDP PRN (Reason: shortness of breath or wheezing) bisacodyl [Dulcolax (bisacodyl)] 5 mg tablet,delayed release (DR/EC) 5 mg PO HSP PRN (Reason: constipation) linezolid 600 mg tablet 600 mg PO BID 9 Days Qty: 18 0RF prednisone 20 mg tablet 20 mg PO DAILY 4 Days Qty: 4 0RF Ozempic 0.25 mg or 0.5 mg (2 mg/3 mL) pen injector 0.25 mg SQ WEEKLY Qty: 3 0RF Rx Instructions: for 4 weeks omeprazole 40 mg capsule,delayed release(DR/EC) 40 mg PO BID torsemide 100 mg tablet 100 mg PO DAILY Patient Comments: TAKE ONE TABLET BY MOUTH EVERY DAY FOR fluid sumatriptan succinate 100 mg tablet 100 mg PO DIRECTED PRN (Reason: migraine headaches) Rx Instructions: TAKE 1 TABLET BY MOUTH AT ONSET OF MIGRAINE. MAY REPEAT ONCE AFTER 2 HOURS IF NEEDED levothyroxine 25 mcg tablet 25 mcg PO 0700 cyclobenzaprine 5 mg tablet 5 mg PO TID duloxetine 30 mg capsule,delayed release(DR/EC) 90 mg PO DAILY Nurtec ODT 75 mg tablet,disintegrating 75 mg PO Q48H Rx Instructions: DISSOLVE ONE TABLET in MOUTH EVERY OTHER DAY Referrals Follow up/Referrals: Mario Sher MD [Primary Care Provider] - See instructions Activity Restrictions/Add. Instructions Additional Instructions/Restrictions: Call your family doctor to establish care for this visit to the emergency department and schedule follow-up within 48 hours to ensure improvement. If you have any worsening of your condition or any other concerning signs or symptoms, return to the emergency department or your primary care doctor for further evaluation. Clinical Impressions Clinical Impression: Edema of abdominal wall Instructions Patient Instructions: DI for Skin Abscess Print Language Print Language: Kyrgyz Discharge ED Provider: Ryan Garcia HPI General Chief Complaint: Skin/Abscess/Foreign Body Stated Complaint: cellulitis and swelling Time Seen by Provider: 09/09/24 17:28 History of Present Illness HPI narrative: Please note that above description of symptoms, in this electronic medical record under categorization of recalled from ER triage doctor by RN are reflective of an initial nursing assessment, however, is not reflective of my full history and physical exam that was personally taken and clarified. Consequentially, this preceding description of symptoms, which may include the patient's categorized chief complaint in the EMR, do not reflect my personal clinical impression, and the ultimate description of history of present illness and patient stated complaints should be deferred to this section of the note. Unless stated otherwise or congruent with this section of the note, additional signs, symptoms, or incongruence should be interpreted as inaccurate with my clinical impression. Related Data Home Medications ?Medication ?Instructions ?Recorded ?Confirmed omeprazole 40 mg capsule,delayed 40 mg PO BID 12/28/23 09/09/24 release cyclobenzaprine 5 mg tablet 5 mg PO TID 08/12/24 09/09/24 duloxetine 30 mg capsule,delayed 90 mg PO DAILY 08/12/24 09/09/24 release levothyroxine 25 mcg tablet 25 mcg PO 0700 08/12/24 09/09/24 rimegepant 75 mg disintegrating 75 mg PO Q48H 08/12/24 09/09/24 tablet (Nurtec ODT) sumatriptan succinate 100 mg tablet 100 mg PO DIRECTED PRN migraine 08/12/24 09/09/24 headaches torsemide 100 mg tablet 100 mg PO DAILY 08/12/24 09/09/24 bisacodyl 5 mg tablet,delayed 5 mg PO HSP PRN constipation 08/31/24 09/09/24 release (Dulcolax (bisacodyl)) ipratropium 0.5 mg-albuterol 3 mg 3 ml inhalation QIDP PRN shortness 08/31/24 09/09/24 (2.5 mg base)/3 mL nebulization of breath or wheezing soln Previous Rx's ?Medication ?Instructions ?Recorded spironolactone 50 mg tablet 50 mg PO DAILY 90 days #90 tabs 11/09/23 (Aldactone) fluticasone propionate 50 1 spray intranasal DAILY #16 grams 12/22/23 mcg/actuation nasal spray,suspension (Flonase Allergy Relief) losartan 25 mg tablet 25 mg PO DAILY #30 tabs 05/15/24 propranolol 10 mg tablet 10 mg PO BID #60 tabs 05/15/24 lamotrigine 100 mg tablet 100 mg PO DAILY #30 tabs 06/04/24 diazepam 5 mg tablet 2.5 mg (1/2 x 5 mg) PO TID 30 days 07/16/24 #45 tabs albuterol sulfate 90 mcg/actuation 2 inh inhalation Q6H PRN shortness 07/22/24 aerosol inhaler (Ventolin HFA) of breath or wheezing #18 grams fluticasone fur. 100 mcg-umeclid 1 inh inhalation DAILY 90 days #90 07/22/24 62.5 mcg-vilant 25 mcg blisters inhalat.powder (Trelegy Ellipta) rivaroxaban 10 mg tablet (Xarelto) 10 mg PO DAILY #10 tabs 02/21/25 linaclotide 145 mcg capsule 145 mcg PO DAILY #90 caps 08/13/24 (Linzess) oxycodone-acetaminophen 10 mg-325 1 tab PO QIDP PRN Mild Pain (Scale 08/13/24 mg tablet Score 1-4) #120 tabs quetiapine 100 mg tablet (Seroquel) 200 mg (2 x 100 mg) PO HS #60 tabs 08/16/24 linezolid 600 mg tablet 600 mg PO BID 9 days #18 tabs 08/31/24 prednisone 20 mg tablet 20 mg PO DAILY 4 days #4 tabs 08/31/24 semaglutide 0.25 mg or 0.5 mg (2 0.25 mg (0.368 mL) SQ WEEKLY #3 mL 08/31/24 mg/3 mL) subcutaneous pen injector ([email or web address]) gabapentin 800 mg tablet 800 mg PO TID #90 tabs 09/06/24 ziprasidone HCl 40 mg capsule 40 mg PO BID #60 caps 09/06/24 (Geodon) Allergies Allergy/AdvReac Type Severity Reaction Status Date / Time doxycycline Allergy Severe Blister Verified 09/09/24 18:56 clindamycin Allergy Blister Verified 09/09/24 18:56 Sulfa (Sulfonamide AdvReac Intermediate Rash Verified 09/09/24 18:56 Antibiotics) amoxicillin AdvReac Other Verified 09/09/24 18:56 nitrofurantoin (From AdvReac Other Verified 09/09/24 18:56 Macrobid) [facility] Disclaimer: The information contained in this section may have been updated after the patient was seen, as this information can be updated by other users. Medical History Otitis externa of left ear Dysphagia Hearing difficulty of left ear Otalgia, left ear Asthma Acute on chronic respiratory failure with hypoxia and hypercapnia Palpitations Ear pain, right Acute and chronic respiratory failure with hypercapnia PTSD (post-traumatic stress disorder) Chest pain Generalized anxiety disorder Recurrent major depression resistant to treatment Sleep apnea History of ectopic History of hyperkalemia Diastolic congestive heart failure Paranoid schizophrenia Uses bilevel positive airway pressure (BPAP) ventilation at home History of sleep apnea History of asthma Cellulitis of right lower extremity Acute and chronic respiratory failure with hypercapnia Pneumonia Acute and chronic respiratory failure Right lower lobe pneumonia History of smoking 30 or more pack years Obesity hypoventilation syndrome Chronic respiratory failure with hypercapnia Severe sepsis COVID-19 Acute and chronic respiratory failure Pneumonia Tracheostomy in place Edema Sinus tachycardia Dizziness Diastolic dysfunction Acute on chronic diastolic heart failure Respiratory failure with hypoxia and hypercapnia Congestive heart failure Acute on chronic diastolic heart failure Elevated d-dimer PAC (premature atrial contraction) Chest pain Dyspnea HTN (hypertension) COPD (chronic obstructive pulmonary disease) Tobacco abuse Abnormal stress test SOB (shortness of breath) Angina, class III Obesity Hypothyroidism (~11/21/17) Asthma Insomnia Depression Anxiety Neuropathy Surgical History History of tracheostomy History of appendectomy History of cholecystectomy History of colonoscopy History of left knee surgery History of hysterectomy Family History Other No significant family history Social History Smoking Status: Never smoker smoking status stop date: 02/2022 alcohol intake: former substance use type: marijuana current occupational status: disabled Travel in the last 8 weeks: None household members: family housing: apartment number of children: 0 current occupational exposures/hazards: No caffeine: Yes Have you lived/traveled outside [place] in past 30 days?: No Contact w/someone who lives/traveled outside [place] past 30 days?: No Exposure to someone with infectious disease in past 14 days?: No Do you have a fever (greater than 100.4 F or 38 C)?: No Have you tested positive for COVID-19: No Exposed to someone with COVID-19 in past 14 days?: No Do you have a sore throat?: No Do you have a cough?: No Do you have any weakness?: No Do you have any diarrhea?: No Are you experiencing any unusual bleeding?: No Do you have any muscle aches/pain?: No Do you have any abdominal pain?: No Are you experiencing loss of taste or smell?: No Other Medical History Have you received the Flu Vaccine for this season: No Have you received the Pneumonia Vaccine: No ROS Obtained: Yes All systems reviewed & no additional complaints except as documented Physical Exam General General appearance: alert and obese (Morbidly) Comment: Very chronically ill, in no acute distress Neck Neck exam: Present trachea midline Chest Chest inspection: Present normal inspection and symmetric chest wall rise Respiratory Respiratory exam: Present other (Decreased breath sounds throughout); Absent respiratory distress, wheezes, stridor, accessory muscle use or prolonged expiratory phase Cardiovascular Cardiovascular exam: Present regular rate, normal rhythm and other (Pulses equal and symmetric in upper and lower extremities) Abdominal Exam Abdominal exam: Present soft and tenderness; Absent distention, guarding, rebound or rigidity Comment: Erythema and induration to the abdomen. Extremities Exam Extremities exam: Present edema Neurological Exam Neurological exam: Present alert, oriented X3 and CN II-XII intact Skin Skin exam: Present warm and dry; Absent cyanosis, diaphoresis or pallor HEART Score HEART Score HEART Score assessment performed?: No Procedures Limited Ultrasound Indication:: Limited soft tissue ultrasound Indication: Soft tissue edema of the abdomen Identified structures: Location: Abdominal wall Findings: Soft tissue body wall edema without tana cobblestoning Impression: Favoring body wall edema over cellulitis. Images were saved to permanent archive The study was technically adequate Soft Tissue CPT Codes: CPT Neck: 09776-32 CPT Upper extremity: 83935-80 CPT Axilla: 35144-70 CPT Chest wall: 12139-70 CPT Breast: 67944-57-CI/LT (complete), 95368-63-AZ/LT (limited), CPT Upper Back: 12279-39 CPT Lower Back: 18830-14 CPT Abdominal Wall: 33248-90 CPT Pelvic Wall: 44804-24 CPT Lower Extremity: 34147-92 CPT Other Soft Tissue: 91537-62 This study was performed by me, and I personally interpreted all images/videos. Based on my clinical judgement, these images were adequate and did not necessitate further imaging. Critical Care Critical Care Time Critical Care Time: No Medical Decision Making Medical Records Medical records reviewed: Yes I reviewed the patient's medical records. Estrada Inquiry Pt receiving controlled substance: No Estrada was queried for this patient: No Vital Signs Vital Signs: 09/09/24 17:31 09/09/24 20:53 Temperature 98.1 F 97.9 F Temperature Source Oral Pulse Rate 79 Pulse Rate [Left Radial] 91 H Respiratory Rate 19 22 Blood Pressure 138/74 Blood Pressure [Right Arm] 161/94 H Blood Pressure Mean [Right Arm] 116 Blood Pressure Source [Right Arm] Automatic Cuff Blood Pressure Position [Right Arm] Sitting 02 Sat by Pulse Oximetry 88 L Oxygen Delivery Method Room Air Room Air Lab Data Labs: Lab Results 09/09/24 18:02: WBC 9.6, RBC 4.57, Hgb 12.9, Hct 42.0, MCV 91.9, MCH 28.2, MCHC 30.7 L, RDW 14.8, Plt Count 188, MPV 9.7, Neut % (Auto) 71.5, Lymph % (Auto) 18.5, [place] % (Auto) 7.1, Eos % (Auto) 1.1, Baso % (Auto) 0.3, Neut # (Auto) 6.9, Lymph # (Auto) 1.8, [place] # (Auto) 0.7, Eos # (Auto) 0.1, Baso # (Auto) 0.0, PT 10.2, INR 0.90, APTT 26.2, Sodium 141, Potassium 4.8, Chloride 102, Carbon Dioxide 32 H, Anion Gap 11.8, BUN 15, Creatinine 0.80, Estimated Creat Clear 63, Estimated GFR 76, Est GFR ( Amer) 92, Glucose 113 H, Lactate 1.0, Calcium 8.9, Total Bilirubin 0.2, AST 19, ALT 21, Alkaline Phosphatase 85, Troponin I < 0.01, C-Reactive Protein 39.2 H, NT-Pro-B Natriuret Pep 150 H, Total Protein 7.5, Albumin 4.0, Globulin 3.5 H, Albumin/Globulin Ratio 1.1 09/09/24 18:02 09/09/24 18:02 Response Orders (Tests/Meds): ED MEDICATIONS Discontinued Medications Generic Name Dose Route Start Last Admin Trade Name Burtonq PRN Reason Stop Dose Admin Hydromorphone HCl 1 mg 09/09/24 18:11 09/09/24 18:41 Hydromorphone 2mg/Ml Syringe IV 09/09/24 18:12 1 mg ONCE ONE Administration Dalbavancin 1,500 mg/ Dextrose 250 mls @ 500 mls/hr 09/09/24 19:45 IV 09/09/24 19:46 ONCE ONE Ketorolac Tromethamine 15 mg 09/09/24 18:11 09/09/24 18:40 Ketorolac 30mg/Ml Vial IV 09/09/24 18:12 15 mg ONCE ONE Administration Ondansetron HCl 4 mg 09/09/24 18:11 09/09/24 18:40 Ondansetron 4mg/2ml Vial IV 09/09/24 18:12 4 mg ONCE ONE Administration ORDERS Category Date Time Status POCUS Point of Care (ER Only) Stat Exams 09/09/24 17:31 Completed CRP [C-Reactive Protein] Stat Lab 09/09/24 18:02 Results Complete Blood Count Auto Diff Stat Lab 09/09/24 18:02 Completed Comprehensive Metabolic Panel Stat Lab 09/09/24 18:02 Results Lactic Acid Stat Lab 09/09/24 18:02 Completed NT Pro Brain Natriuretic Pep. Stat Lab 09/09/24 18:02 Results PT INR [Prothrombin Time INR] Stat Lab 09/09/24 18:02 Completed PTT [Activated Partial Thrombo Time] Stat Lab 09/09/24 18:02 Completed Procalcitonin Stat Lab 09/09/24 18:02 Results Troponin I Q3H Lab 09/09/24 20:45 Ordered Troponin I Q3H Lab 09/09/24 23:45 Ordered Troponin I Stat Lab 09/09/24 18:02 Results Blood Culture Stat Micro 09/09/24 18:57 Received MDM Narrative Medical Decision Narrative: 49-year-old female who is morbidly obese, chronic hypercapnic and hypoxemic respiratory failure tracheostomy in place requiring BiPAP while sleeping, hypertension, hyperlipidemia, CHF, abdominal wall cellulitis presenting with abdominal wall cellulitis. Patient states that she feels that her abdominal wall cellulitis has been getting worse. She received IV antibiotics last about 10 days ago and states that she feels that the redness and swelling in her abdomen as well as tenderness is gone worse. No objective fevers, worsening weakness, nausea, vomiting, diarrhea, or any other concerns. Came in because she states she is having panic attacks because she is worried that she is going to . history was obtained via conversation with patient and daughter. On arrival, patient hemodynamically stable, alert, oriented x4, appropriate, GCS 15, moving all extremities spontaneously, pupils equal and reactive to light. Full physical exam performed and significant for morbidly obese, chronically ill-appearing female who is in no acute distress. Her lungs are quite diffuse, no obvious focal breath sounds. Heart without murmurs gallops or rubs. She does have 2+ bilateral lower extremity edema. Pulses equal and symmetric. Abdomen soft, difficult to tell if distended due to habitus, but it is tender and indurated. No evidence of fluctuance. Differential includes cellulitis, CHF exacerbation, fluid overloaded state, acute kidney failure, sepsis, among others. Patient was given 1 mg Dilaudid and Zofran for symptomatic management and correction of underlying abnormalities. Patient placed on continuous cardiac monitoring and continuous pulse ox with initial blood pressure 161/94, heart rate 91, saturation 88% on room air. Workup independently interpreted and significant for nonactionable CBC with normal white count and differential. Coags normal, CRP downtrending, BNP normal. Patient's chest x-ray without acute cardiopulmonary airspace disease on independent interpretation. Patient pretty concerned about cellulitis of the abdomen. Bedside [id number] ultrasound was performed. In areas of maximal tenderness, appears to be just soft tissue edema. There is interspersed fluid, but it is not cobblestoning or characteristic of significant cellulitis. On reevaluation, patient worried. I contacted hospitalist who took care of patient last time, Dr. Ornelas, we had interactive discussion. He went over workup with me as well and recommended home-going. On reevaluation, discussion was had with her regarding my discussion with hospitalist and she feels much more relieved. Given patient presentation, workup, history, this most likely represents abdominal wall edema, resolving cellulitis. Because patient at baseline without signs or symptoms of clinical decompensation, deemed appropriate for discharge. Results were relayed to patient who voiced understanding and were agreeable to outpatient management and follow up. I discussed my clinical impression with patient and answered all questions. At this time, the evidence for any other entities in the differential is insufficient to warrant any further testing or ED observation. This was explained as well. Advisory was given that persistent or worsening symptoms require further evaluation. I confirmed the understanding of this discussion. Stock Broker Supervisor disclaimer Much of this encounter note is an electronic nursing program chair spoken language to printed text. Electronic nursing program chair of the spoken language may permit errors. Although I have reviewed the note, some errors may still exist.
[2024-09-09 18:31] LABS: Activated Partial Thrombo Time 26.2 seconds (22.8-30.6); Prothrombin Time 10.2 seconds (10.1-12.5)
[2024-09-09] MEDS: ONDANSETRON 4MG/2ML VIAL 4 MG IV (18:40)
[2024-09-09] MEDS: KETOROLAC 30MG/ML VIAL 15 MG IV (18:40)
[2024-09-09] MEDS: HYDROMORPHONE 2MG/ML SYRINGE 1 MG IV (18:41)
[2024-09-09 19:09] LABS: Chloride 102 mmol/L (98-107)
[2024-09-09 19:10] LABS: Potassium 4.8 mmoL/L (3.5-5.1); Sodium 141 mmol/L (136-145)
[2024-09-09 19:12] LABS: Alanine Aminotransferase 21 U/L (12-78); Anion Gap 11.8 mEq/L (5-15); Aspartate Amino Transferase 19 U/L (14-36); Blood Urea Nitrogen 15 mg/dl (7-17); Carbon Dioxide 32 mmol/L (22.0-30.0); Creatinine Clearance Estimated 63 mL/min (50-200); Estimated Glomerular Filt Rate 76 ml/min (>60); GFR (African American) 92 ML/MIN (>60)
[2024-09-09 19:13] LABS: Albumin/Globulin Ratio 1.1 (1.1-1.8); Alkaline Phosphatase 85 U/L (38-126); Bilirubin,Total 0.2 mg/dl (0.2-1.3); Calcium 8.9 mg/dl (8.4-10.2); Globulin 3.5 g/dL (1.3-3.2); Glucose 113 mg/dl (74-100); Total Protein,Serum 7.5 g/dl (6.3-8.2)
[2024-09-09 19:19] LABS: C-Reactive Protein 39.2 mg/L (0-4)
[2024-09-09 19:25] LABS: NT Pro Brain Natriuretic Pep. 150 pg/mL (0-125)
[2024-09-09 19:36] LABS: Troponin I < 0.01 ng/ml (0.00-0.034)
--- NOTE | 2024-09-09 19:47 | PC.NURSE ---
lower abd redness/irritation
[2024-09-09 20:53] VITALS: BP 138/74; PULSE 79; RESP 22; TEMP 36.6; O2SAT 95
--- NOTE | 2024-09-09 20:57 | PC.NURSE ---
Pt was assisted to wheelchair to go to lobby. When taken to lobby she requested to sit outside in wheelchair till family arrives to pick her up. Made sure, asked a couple of times to make to be outside due to cool temps.
[2024-09-09 21:16] LABS: Procalcitonin 0.078 ng/mL (0.0-2.0)
== END 2024-09-09 21:08 | disposition home or self-care (01) ==
PROVIDERS: Emergency Provider Emergency Medicine; PCP Family Medicine
DX: L03.311 Cellulitis of abdominal wall (principal); R60.0 Localized edema
CPT/HCPCS: 80053; 83605; 83880; 84145; 84484; 85025; 85610; 85730; 86140; 87040; 96374; 96375; 99284; J1171; J1885; J2405

== ENCOUNTER 2024-09-20 14:35 | Emergency (ER) | payer MEDICAID, SELFPAY ==
[2024-09-20] VITALS (12 sets, daily range): BP systolic 83–151; BP diastolic 54–91; PULSE 63–94; RESP 16–18; TEMP 36.6–37; O2SAT 74–94; BMI 71.8
--- NOTE | 2024-09-20 14:46 | ED_ITS ---
<Statement entered by Christina Aguilar DO - 09/20/24 23:46> I was consulted by the DANIA, and we discussed the complexity of the problems being addressed. I approved the treatment and management plan for this patient's care in the emergency department, thus performing a substantive portion of the medical decision making. Christina Aguilar DO Discharge Plan Disposition Patient Disposition: Home, Self-Care Condition: Good Prescriptions Prescriptions: No Action fluticasone propionate [Flonase Allergy Relief] 50 mcg/actuation spray,suspension 1 spray intranasal DAILY Qty: 16 2RF Rx Instructions: administer into each nostril lamotrigine 100 mg tablet 100 mg PO DAILY Qty: 30 3RF albuterol sulfate [Ventolin HFA] 90 mcg/actuation HFA aerosol inhaler 2 inh inhalation Q6H PRN (Reason: shortness of breath or wheezing) Qty: 18 3RF Trelegy Ellipta 100-62.5-25 mcg blister with device 1 inh inhalation DAILY 90 Days Qty: 90 3RF Xarelto 10 mg tablet 10 mg PO DAILY Qty: 10 0RF spironolactone [Aldactone] 50 mg tablet 50 mg PO DAILY 90 Days Qty: 90 4RF losartan 25 mg tablet 25 mg PO DAILY Qty: 30 5RF propranolol 10 mg tablet 10 mg PO BID Qty: 60 5RF Linzess 145 mcg capsule 145 mcg PO DAILY Qty: 90 2RF quetiapine [Seroquel] 100 mg tablet 200 mg PO HS Qty: 60 0RF gabapentin 800 mg tablet 800 mg PO TID Qty: 90 1RF ziprasidone HCl [Geodon] 40 mg capsule 40 mg PO BID Qty: 60 2RF Rx Instructions: give with food (meal/snack) diazepam 5 mg tablet 2.5 mg PO TID 30 Days Qty: 45 1RF omeprazole 40 mg capsule,delayed release(DR/EC) 40 mg PO BID Qty: 180 3RF duloxetine 30 mg capsule,delayed release(DR/EC) 90 mg PO DAILY Qty: 180 3RF levothyroxine 25 mcg tablet 25 mcg PO 0700 Qty: 90 3RF Nurtec ODT 75 mg tablet,disintegrating 75 mg PO Q48H Qty: 40 0RF Rx Instructions: DISSOLVE ONE TABLET in MOUTH EVERY OTHER DAY torsemide 100 mg tablet 100 mg PO DAILY Qty: 90 0RF Ozempic 0.25 mg or 0.5 mg (2 mg/3 mL) pen injector 0.25 mg SQ WEEKLY Qty: 3 0RF Rx Instructions: for 4 weeks oxycodone-acetaminophen 10-325 mg tablet 1 tab PO QIDP PRN (Reason: Mild Pain (Scale Score 1-4)) Qty: 120 0RF ipratropium-albuterol 0.5 mg-3 mg(2.5 mg base)/3 mL solution for nebulization 3 ml inhalation QIDP PRN (Reason: shortness of breath or wheezing) bisacodyl [Dulcolax (bisacodyl)] 5 mg tablet,delayed release (DR/EC) 5 mg PO HSP PRN (Reason: constipation) linezolid 600 mg tablet 600 mg PO BID 9 Days Qty: 18 0RF prednisone 20 mg tablet 20 mg PO DAILY 4 Days Qty: 4 0RF sumatriptan succinate 100 mg tablet 100 mg PO DIRECTED PRN (Reason: migraine headaches) Rx Instructions: TAKE 1 TABLET BY MOUTH AT ONSET OF MIGRAINE. MAY REPEAT ONCE AFTER 2 HOURS IF NEEDED cyclobenzaprine 5 mg tablet 5 mg PO TID Referrals Follow up/Referrals: Vaughn Manjarrez II, MD [Referring] - See instructions Mario Sher MD [Primary Care Provider] - See instructions Activity Restrictions/Add. Instructions Additional Instructions/Restrictions: I have referred you to an infectious disease specialist in [place] Dr. Manjarrez. Please call tomorrow to make your appointment. I recommend having your PCP find a surgeon that can evaluate you for panniculectomy. If you have any new or worsening signs or symptoms follow-up with your PCP sooner or return to the ER as needed. Clinical Impressions Clinical Impression: Panniculitis Instructions Patient Instructions: DI for Acute Abdominal Pain Print Language Print Language: Lao Discharge ED Provider: Christina Aguilar General Adult HPI General Chief complaint: Abdominal Pain Stated complaint: abd celulitus Time Seen by Provider: 09/20/24 14:46 History of Present Illness HPI narrative: Patient presents for evaluation of pain in her pannus. Patient has been suffering intermittent pannus pain redness and swelling since mid August. She has received IV antibiotics twice however the symptoms keep coming back. Of note the patient has a past medical history of morbid obesity with a BMI of 71 bilateral lower extremity lymphedema, generalized anxiety disorder with panic attacks, acute on chronic respiratory failure with tracheostomy and nighttime ventilator management for alveolar hypoventilation, CHF, irritable bowel syndrome, pickwickian syndrome, chronic pain, COPD. She denies fever chills hemoptysis hematochezia melena nausea vomiting diarrhea. Related Data Home Medications ?Medication ?Instructions ?Recorded ?Confirmed cyclobenzaprine 5 mg tablet 5 mg PO TID 08/12/24 09/09/24 sumatriptan succinate 100 mg tablet 100 mg PO DIRECTED PRN migraine 08/12/24 09/09/24 headaches bisacodyl 5 mg tablet,delayed 5 mg PO HSP PRN constipation 08/31/24 09/09/24 release (Dulcolax (bisacodyl)) ipratropium 0.5 mg-albuterol 3 mg 3 ml inhalation QIDP PRN shortness 08/31/24 09/09/24 (2.5 mg base)/3 mL nebulization of breath or wheezing soln Previous Rx's ?Medication ?Instructions ?Recorded spironolactone 50 mg tablet 50 mg PO DAILY 90 days #90 tabs 11/09/23 (Aldactone) fluticasone propionate 50 1 spray intranasal DAILY #16 grams 12/22/23 mcg/actuation nasal spray,suspension (Flonase Allergy Relief) losartan 25 mg tablet 25 mg PO DAILY #30 tabs 05/15/24 propranolol 10 mg tablet 10 mg PO BID #60 tabs 05/15/24 lamotrigine 100 mg tablet 100 mg PO DAILY #30 tabs 06/04/24 albuterol sulfate 90 mcg/actuation 2 inh inhalation Q6H PRN shortness 07/22/24 aerosol inhaler (Ventolin HFA) of breath or wheezing #18 grams fluticasone fur. 100 mcg-umeclid 1 inh inhalation DAILY 90 days #90 07/22/24 62.5 mcg-vilant 25 mcg blisters inhalat.powder (Trelegy Ellipta) rivaroxaban 10 mg tablet (Xarelto) 10 mg PO DAILY #10 tabs 07/26/24 linaclotide 145 mcg capsule 145 mcg PO DAILY #90 caps 08/13/24 (Linzess) quetiapine 100 mg tablet (Seroquel) 200 mg (2 x 100 mg) PO HS #60 tabs 08/16/24 linezolid 600 mg tablet 600 mg PO BID 9 days #18 tabs 08/31/24 prednisone 20 mg tablet 20 mg PO DAILY 4 days #4 tabs 08/31/24 gabapentin 800 mg tablet 800 mg PO TID #90 tabs 09/06/24 ziprasidone HCl 40 mg capsule 40 mg PO BID #60 caps 09/06/24 (Geodon) diazepam 5 mg tablet 2.5 mg (1/2 x 5 mg) PO TID 30 days 09/10/24 #45 tabs duloxetine 30 mg capsule,delayed 90 mg (3 x 30 mg) PO DAILY #180 09/11/24 release caps levothyroxine 25 mcg tablet 25 mcg PO 0700 #90 tabs 09/11/24 omeprazole 40 mg capsule,delayed 40 mg PO BID #180 caps 09/11/24 release rimegepant 75 mg disintegrating 75 mg PO Q48H #40 tabs 09/11/24 tablet (Nurtec ODT) torsemide 100 mg tablet 100 mg PO DAILY #90 tabs 09/11/24 oxycodone-acetaminophen 10 mg-325 1 tab PO QIDP PRN Mild Pain (Scale 09/12/24 mg tablet Score 1-4) #120 tabs semaglutide 0.25 mg or 0.5 mg (2 0.25 mg (0.368 mL) SQ WEEKLY #3 mL 09/12/24 mg/3 mL) subcutaneous pen injector (Ozempic) Allergies Allergy/AdvReac Type Severity Reaction Status Date / Time doxycycline Allergy Severe Blister Verified 09/09/24 18:56 clindamycin Allergy Blister Verified 09/09/24 18:56 Sulfa (Sulfonamide AdvReac Intermediate Rash Verified 09/09/24 18:56 Antibiotics) amoxicillin AdvReac Other Verified 09/09/24 18:56 morphine AdvReac Headache Verified 09/20/24 15:52 nitrofurantoin (From AdvReac Other Verified 09/09/24 18:56 Macrobid) [facility] Disclaimer: The information contained in this section may have been updated after the patient was seen, as this information can be updated by other users. Medical History Otitis externa of left ear Dysphagia Hearing difficulty of left ear Otalgia, left ear Asthma Acute on chronic respiratory failure with hypoxia and hypercapnia Palpitations Ear pain, right Acute and chronic respiratory failure with hypercapnia PTSD (post-traumatic stress disorder) Chest pain Generalized anxiety disorder Recurrent major depression resistant to treatment Sleep apnea History of ectopic History of hyperkalemia Diastolic congestive heart failure Paranoid schizophrenia Uses bilevel positive airway pressure (BPAP) ventilation at home History of sleep apnea History of asthma Cellulitis of right lower extremity Acute and chronic respiratory failure with hypercapnia Pneumonia Acute and chronic respiratory failure Right lower lobe pneumonia History of smoking 30 or more pack years Obesity hypoventilation syndrome Chronic respiratory failure with hypercapnia Severe sepsis COVID-19 Acute and chronic respiratory failure Pneumonia Tracheostomy in place Edema Sinus tachycardia Dizziness Diastolic dysfunction Acute on chronic diastolic heart failure Respiratory failure with hypoxia and hypercapnia Congestive heart failure Acute on chronic diastolic heart failure Elevated d-dimer PAC (premature atrial contraction) Chest pain Dyspnea HTN (hypertension) COPD (chronic obstructive pulmonary disease) Tobacco abuse Abnormal stress test SOB (shortness of breath) Angina, class III Obesity Hypothyroidism (~11/21/17) Asthma Insomnia Depression Anxiety Neuropathy Surgical History History of tracheostomy History of appendectomy History of cholecystectomy History of colonoscopy History of left knee surgery History of hysterectomy Family History Other No significant family history Social History Smoking Status: Former smoker tobacco type: cigarettes packs per day: 1 smoking status stop date: 02/2022 alcohol intake: former substance use type: marijuana current occupational status: disabled Travel in the last 8 weeks: None household members: family housing: apartment number of children: 0 current occupational exposures/hazards: No caffeine: Yes Have you lived/traveled outside [place] in past 30 days?: No Contact w/someone who lives/traveled outside US past 30 days?: No Exposure to someone with infectious disease in past 14 days?: No Do you have a fever (greater than 100.4 F or 38 C)?: No Have you tested positive for COVID-19: No Exposed to someone with COVID-19 in past 14 days?: No Do you have a sore throat?: No Do you have a cough?: No Do you have any weakness?: No Do you have any diarrhea?: No Are you experiencing any unusual bleeding?: No Do you have any muscle aches/pain?: No Do you have any abdominal pain?: No Are you experiencing loss of taste or smell?: No Other Medical History Have you received the Flu Vaccine for this season: No Have you received the Pneumonia Vaccine: No ROS Obtained: Yes Systems reviewed as appropriate & no additional complaints except as documented Physical Exam General General appearance: alert and in no apparent distress Respiratory Respiratory exam: Present normal lung sounds bilaterally Cardiovascular Cardiovascular exam: Present regular rate Neurological Exam Neurological exam: Present alert and oriented X3 Medical Decision Making Medical Records Medical records reviewed: Yes I reviewed the patient's medical records. Screening: Per USPSTF and CDC recommendations, given the prevalence of disease in our region, it is our hospital?s policy to screen for HIV and viral Hepatitis for all patients aged 18 and over and those with ongoing risk factors. [place]ada Inquiry Pt receiving controlled substance: No Vital Signs: 09/20/24 14:49 09/20/24 15:00 09/20/24 15:15 Temperature 98.6 F Temperature Source Oral Pulse Rate 89 89 Pulse Rate [Right Radial] 93 H Respiratory Rate 18 Blood Pressure 127/79 124/83 Blood Pressure [Right Arm] 151/91 H Blood Pressure Mean 93 91 Blood Pressure Mean [Right Arm] 111 Blood Pressure Source [Right Arm] Automatic Cuff 02 Sat by Pulse Oximetry 90 L 89 L 92 L Oxygen Delivery Method Trach Collar/ Tube 09/20/24 15:46 09/20/24 16:00 09/20/24 16:15 Temperature Temperature Source Pulse Rate 91 H 92 H 89 Pulse Rate [Right Radial] Respiratory Rate Blood Pressure 83/59 L 118/73 101/62 L Blood Pressure [Right Arm] Blood Pressure Mean 67 81 Blood Pressure Mean [Right Arm] Blood Pressure Source [Right Arm] 02 Sat by Pulse Oximetry 92 L 91 L 92 L Oxygen Delivery Method 09/20/24 16:45 09/20/24 17:00 09/20/24 17:15 Temperature Temperature Source Pulse Rate 94 H 63 90 Pulse Rate [Right Radial] Respiratory Rate Blood Pressure 123/84 134/90 112/69 Blood Pressure [Right Arm] Blood Pressure Mean Blood Pressure Mean [Right Arm] Blood Pressure Source [Right Arm] 02 Sat by Pulse Oximetry 86 L 84 L 94 L Oxygen Delivery Method 09/20/24 17:31 09/20/24 17:43 Temperature Temperature Source Pulse Rate 90 88 Pulse Rate [Right Radial] Respiratory Rate Blood Pressure 101/54 L 132/88 Blood Pressure [Right Arm] Blood Pressure Mean Blood Pressure Mean [Right Arm] Blood Pressure Source [Right Arm] 02 Sat by Pulse Oximetry 93 L 74 L Oxygen Delivery Method Lab Data Lab results reviewed: Yes I reviewed the patient's lab results. Lab Results 09/20/24 15:40: WBC 9.2, RBC 4.23, Hgb 12.0 L, Hct 39.8, MCV 94.1, MCH 28.4, M CHC 30.2 L, RDW 15.8, Plt Count 172, MPV 10.1, Neut % (Auto) 75.0, Lymph % (Auto) 14.8, Hill % (Auto) 7.5, Eos % (Auto) 1.1, Baso % (Auto) 0.3, Neut # (Auto) 6.9, Lymph # (Auto) 1.4, Hill # (Auto) 0.7, Eos # (Auto) 0.1, Baso # (Auto) 0.0, ESR 39 H, Sodium 141, Potassium 5.3 H, Chloride 102, Carbon Dioxide 35 H, Anion Gap 9.3, BUN 15, Creatinine 0.80, Estimated Creat Clear 63, Estimated GFR 76, Est GFR ( Amer) 92, Glucose 116 H, Calcium 8.6, Total Bilirubin 0.3, AST 30, ALT 21, Alkaline Phosphatase 70, C-Reactive Protein 33.8 H, Total Protein 7.5, Albumin 3.9, Globulin 3.6 H, Albumin/Globulin Ratio 1.1, Procalcitonin 0.075 09/20/24 : Urine Color Yellow, Urine Appearance Clear, Urine pH 7.0, Ur Specific Hidalgo 1.020, Urine Protein Negative, Urine Glucose (UA) Negative, Urine Ketones Negative, Urine Blood Negative, Urine Nitrate Negative, Urine Bilirubin Negative, Urine Urobilinogen 0.2, Ur Leukocyte Esterase Negative, Urine RBC None, Urine WBC None, Ur Squamous Epith Cells Occasional, Urine Bacteria None, Urine Yeast 1+ 09/20/24 15:40 09/20/24 15:40 Orders (Tests/Meds): ED MEDICATIONS Discontinued Medications Generic Name Dose Route Start Last Admin Trade Name Jeane PRN Reason Stop Dose Admin Acetaminophen 1,000 mg 09/20/24 15:09 09/20/24 15:53 Acetaminophen 1,000mg/100ml Vial IV 09/20/24 15:10 1,000 mg ONCE ONE Administration Hydromorphone HCl 1 mg 09/20/24 15:09 09/20/24 16:42 Hydromorphone 2mg/Ml Syringe IV 09/20/24 15:10 1 mg ONCE ONE Administration Sodium Chloride 1,000 mls @ 999 mls/hr 09/20/24 15:09 09/20/24 15:53 Sod Chlor 0.9% 1000ml Bag IV 09/20/24 16:09 999 mls/hr .Q1H1M ONE Administration Dalbavancin 1,500 mg/ Dextrose 250 mls @ 500 mls/hr 09/20/24 17:39 09/20/24 17:53 IV 09/20/24 17:40 500 mls/hr ONCE ONE Administration Iopamidol 75 ml 09/20/24 16:36 09/20/24 16:37 Iopamidol-370 (76%);100ml Bottle IV 09/20/24 16:37 75 ml ONCE ONE Administration Ketorolac Tromethamine 15 mg 09/20/24 15:09 09/20/24 15:53 Ketorolac 30mg/Ml Vial IV 09/20/24 15:10 15 mg ONCE ONE Administration Sodium Chloride 10 ml 09/20/24 16:36 09/20/24 16:37 Sodium Chloride 0.9% 10ml Syr (Rad Only) IV 09/20/24 16:37 10 ml ONCE ONE Administration ORDERS Category Date Time Status CT abdomen pelvis w con Stat Cat Scan 09/20/24 15:09 Completed CBC w/Auto Diff [Complete Blood Count Auto Diff] Stat Lab 09/20/24 15:40 Completed CMP [Comprehensive Metabolic Panel] Stat Lab 09/20/24 15:40 Completed CRP [C-Reactive Protein] Stat Lab 09/20/24 15:40 Completed ESR [Erythrocyte Sedimentation Rate] Stat Lab 09/20/24 15:40 Completed Procalcitonin Stat Lab 09/20/24 15:40 Completed UA [Urinalysis and Microscopic] Stat Lab 09/20/24 Completed Blood Culture Stat Micro 04/18/25 15:45 Ordered Medical Decision Narrative: In summary patient is a 1-year-old female who presents to the emergency department for evaluation of panniculitis. Patient is hemodynamically stable upon arrival, afebrile. Physical exam reveals dependent erythema and tenderness to palpation of her pannus on her abdominal wall. I do not however feel induration fluctuance. There is no evidence of skin breakdown or ulceration.. Differential diagnosis includes lipedema of the pannus versus cellulitis versus deep space abscess. Initial workup will be conducted with hematologic labs CT scan abdomen pelvis. Initial interventions include Tylenol Toradol Dilaudid. Initial workup reviewed by me shows that her hematologic labs are nonactionable however her sed rate is 39 procalcitonin is 0.075 CRP is 33.8 all indicating inflammation without infection as her white count is normal with no neutrophilic shift. Upon repeat evaluation patient reported moderate improvement after initial intervention. Given this given that the patient is high risk will give a dose of Dalvance and refer her to infectious disease for ongoing management and care. Additionally I have counseled the patient on definitive management which is surgical if she can find a surgeon who does panniculectomy's. I referred her back to her PCP for this. Patient given strict return precautions and is appropriate for discharge after her Dalvance infusion. Critical Care Critical Care Time Critical Care Time: Yes Attestation: On 09/20/24, the high probability of a clinically significant, sudden or life threatening deterioration of the following system(s) required my full and direct attention, intervention and personal management. The time I documented below is in addition to time spent performing reported procedures but includes the following listed in this critical care notation. Total Time Total Critical Care Time: 35
--- NOTE | 2024-09-20 15:09 | CT_ITS ---
PROCEDURE INFORMATION: Exam: CT Abdomen And Pelvis With Contrast Exam date and time: 09/20/2024 4:33 PM Age: 49 years old Clinical indication: Other: Panniculitis TECHNIQUE: Imaging protocol: Computed tomography of the abdomen and pelvis with contrast. Radiation optimization: All CT scans at this facility use at least one of these dose optimization techniques: automated exposure control; mA and/or kV adjustment per patient size (includes targeted exams where dose is matched to clinical indication); or iterative reconstruction. Contrast material: ISOVUE; Contrast volume: 75 ml; Contrast route: IV; COMPARISON: CT ABDOMEN PELVIS W CON 08/30/2024 6:42 PM FINDINGS: Lungs: No consolidation, lung nodules, or pleural effusions. Liver: No mass. No evidence of fat deposition. No surrounding fluid. Gallbladder and biliary ducts: No calcified stones or wall thickening. No ductal dilation. Pancreas: No masses. No ductal dilation. Spleen: No splenomegaly. No masses or surrounding fluid. Adrenal glands: No mass. Kidneys and ureters: No hydronephrosis, calcified stones, or masses. Stomach and bowel: No intestinal masses, bowel wall thickening, or abnormal luminal dilatation. Diverticula are present in the sigmoid colon without evidence of diverticulitis. Appendix: No evidence of appendicitis. Intraperitoneal space: No free air. No masses or significant fluid collection. Vasculature: No abdominal aortic aneurysm. No other significant abnormalities. Lymph nodes: No enlarged lymph nodes. Urinary bladder: No masses or asymmetric wall thickening. Reproductive: Uterus is surgically absent. No adnexal masses. Bones/joints: No acute fracture or bone lesions. Soft tissues: Stranding of fat and subcutaneous edema across the anterior abdominal wall, left worse than right, extends inferior to the umbilicus on the left. Skin thickening is present across the anterior abdominal wall. No subcutaneous or abdominal wall masses fluid collections. No soft tissue gas. IMPRESSION: 1. Subcutaneous edema across the anterior abdominal wall, worse on the left than on the right, and is associated with skin thickening concerning for cellulitis. No soft tissue gas or masses. 2. No other acute findings in the abdomen and pelvis. 3. Mild diverticulosis in the sigmoid colon without evidence of diverticulitis.
--- NOTE | 2024-09-20 15:12 | PC.NURSE ---
Called [facility] to have medical records sent over on this pt from there facility
--- NOTE | 2024-09-20 15:26 | PC.NURSE ---
Received the records from [facility] for this pt and gave them to OSIRIS Barnett
[2024-09-20 15:32] LABS: Microscopic, Urine URINE MICROSCOPIC (MICROSCOPIC)
[2024-09-20 15:36] LABS: Appearance,Urine CLEAR (Clear); Bilirubin,Urine Negative (Negative); Blood, Urine Negative (Negative); Color,Urine YELLOW (Yellow); Glucose,Urine (UA) Negative (Negative); Ketones,Urine Negative (Negative); Leukocyte Esterase,Urine Negative (Negative); Nitrate,Urine Negative (Negative); Protein,Urine Negative (Negative); Urobilinogen,Urine 0.2 EU/dl (0.2)
--- NOTE | 2024-09-20 15:37 | PC.NURSE ---
Dr Aguilar at bedside for IVUS attempt and blood collection
[2024-09-20] MEDS: KETOROLAC 30MG/ML VIAL 15 MG IV (15:53)
[2024-09-20] MEDS: ACETAMINOPHEN 1,000MG/100ML VIAL 1000 MG IV (15:53)
[2024-09-20] MEDS: 0.9 % SODIUM CHLORIDE 1000ML 1,000 ML 999 ML IV (15:53)
[2024-09-20 15:57] LABS: Basophils % 0.3 % (0.1-2.0); Eosinophils # 0.1 Kmm3 (0.0-0.4); Eosinophils % 1.1 % (0.1-12.0); Hematocrit 39.8 % (37.0-47.0); Lymphocytes # 1.4 K/mm3 (0.7-4.5); Lymphocytes % 14.8 % (10-50); Mean Corpuscular HGB Conc 30.2 g/dL (31.8-35.4); Mean Corpuscular Hemoglobin 28.4 pg (27.0-31.2); Mean Corpuscular Volume 94.1 fl (81-99); Mean Platelet Volume 10.1 fl (7.4-10.4); Monocytes # 0.7 K/mm3 (0.1-1.0); Monocytes % 7.5 % (1.7-9.3); Neutrophils # 6.9 K/mm3 (1.8-7.8); Nucleated Red Blood Cells # 0 10^3/uL; Nucleated Red Blood Cells % 0 %; Platelet Count 172 K/mm3 (142-424); Red Blood Count 4.23 M/mm3 (4.20-5.40); Red Cell Distribution Width 15.8 % (11.5-17.5); Red Cell Distribution Width-SD 53.5 fL; White Blood Count 9.2 K/mm3 (4.8-10.8)
[2024-09-20 16:08] LABS: Albumin Level 3.9 g/dl (3.5-5.0); Chloride 102 mmol/L (98-107); Potassium 5.3 mmoL/L (3.5-5.1); Sodium 141 mmol/L (136-145)
[2024-09-20 16:10] LABS: Blood Urea Nitrogen 15 mg/dl (7-17); Creatinine Clearance Estimated 63 mL/min (50-200); Estimated Glomerular Filt Rate 76 ml/min (>60); GFR (African American) 92 ML/MIN (>60)
[2024-09-20 16:11] LABS: Alanine Aminotransferase 21 U/L (12-78); Albumin/Globulin Ratio 1.1 (1.1-1.8); Alkaline Phosphatase 70 U/L (38-126); Anion Gap 9.3 mEq/L (5-15); Aspartate Amino Transferase 30 U/L (14-36); Bilirubin,Total 0.3 mg/dl (0.2-1.3); Calcium 8.6 mg/dl (8.4-10.2); Carbon Dioxide 35 mmol/L (22.0-30.0); Globulin 3.6 g/dL (1.3-3.2); Glucose 116 mg/dl (74-100); Total Protein,Serum 7.5 g/dl (6.3-8.2)
[2024-09-20 16:15] LABS: Squamous Epithelial Cell,Urine Occasional #/hpf (0-5)
[2024-09-20 16:16] LABS: C-Reactive Protein 33.8 mg/L (0-4)
[2024-09-20 16:16] LABS: Yeast,Urine 1+ /lpf
[2024-09-20 16:32] LABS: Erythrocyte Sedimentation Rate 39 mm/hr (0-20)
[2024-09-20] MEDS: SODIUM CHLORIDE 0.9% 10ML SYR (RAD ONLY) 10 ML IV (16:37)
[2024-09-20] MEDS: IOPAMIDOL-370 (76%);100ML BOTTLE 75 ML IV (16:37)
[2024-09-20 16:42] LABS: Procalcitonin 0.075 ng/mL (0.0-2.0)
[2024-09-20] MEDS: HYDROMORPHONE 2MG/ML SYRINGE 1 MG IV ×2 (16:42→18:41)
[2024-09-20] MEDS: DALBAVANCIN HCL 1,500 MG in DEXTROSE 5 % IN WATER 250 ML 500 MG IV (17:53)
== END 2024-09-20 18:47 | disposition home or self-care (01) ==
PROVIDERS: Physician Assistant; Emergency Provider Emergency Medicine; PCP Family Medicine
DX: M79.3 Panniculitis, unspecified (principal); E66.01 Morbid (severe) obesity due to excess calories
CPT/HCPCS: 74177; 80053; 81001; 84145; 85025; 85651; 86140; 87040; 96361; 96374; 96375; 96376; 99291; J0131; J0875; J1171; J1885; J7030; J7060; Q9967

== ENCOUNTER 2024-12-04 12:23 | Outpatient (CLI) | payer MEDICAID, SELFPAY ==
--- OUTSIDE RECORDS SUMMARY | 2024-12-04 12:27 | XMS_ITS | Clinical Summary ---
Author Organization 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 Name Role Phone Unavailable Primary Care Provider Unavailabl e Allergies Active Allergy Reactions Criticality Noted Date Comments Metoclopramide 07/27/2021 Medications No known medications Active Problems Problem Noted Date Diagnosed Date Respiratory failure 07/27/2021 Social History Tobacco Use Types Packs/Day Years Used Date Smoking Tobacco: Former Cigarettes 1 15 1 - 06/04/2021 Smokeless Tobacco: Never Tobacco Cessation:Counseling Given: No Alcohol Use Standard Drinks/Week Comments Not Currently 0 (1 standard drink = 0.6 oz pur e alcohol) Comments Unknown Sex and Gender Information Value Date Recorded Sex Assigned at Not on file Legal Sex Female 3:04 PM EST Gender Identity Not on file Sexual Orientation Not on file Last Filed Vital Signs Vital Sign Reading Time Taken Comments Blood Pressure 150/100 08/11/2021 7:45 AM EST Pulse 109 08/11/2021 9:29 AM EST Temperature 36.4 C (97.6 F) 08/11/2021 7:45 AM EST Respiratory Rate 18 08/11/2021 9:29 AM EST Oxygen Saturation 99% 08/11/2021 9:29 AM EST Inhaled Oxygen Concentration - - Weight 138.5 kg (305 lb 7 oz) 08/03/2021 10:00 A M EST Height 170.2 cm (5' 7 ) 07/27/2021 2:14 PM EST Body Mass Index 47.84 07/27/2021 2:14 PM EST Plan of Treatment Not on file Advance Directives * Full Resuscitation (Latest Code Status on File) Date Activated Date Inactivated Comments 07/27/2021 4:37 PM 08/11/2021 4:36 PM
--- OUTSIDE RECORDS SUMMARY | 2024-12-04 12:27 | XMS_ITS | Clinical Summary ---
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 Surgical History Surgery Date Site/Laterality Comments XR INJECT CONTRAST EXISTING TUBE 07/27/2021 XR INJECT CONTRAST EXISTING TUBE 07/27/2021 FTT ED XRAY HYSTERECTOMY Social History Tobacco Use Types Packs/Day Years Used Date Smoking Tobacco: Never Assessed Sex and Gender Information Value Date Recorded Sex Assigned at Not on file Legal Sex Male 4:23 PM EST Gender Identity Not on file Sexual Orientation Not on file Obstetrics History Plan of Treatment Health Maintenance Due Date Last Done Comments Annual Wellness Exam 1977 DTaP/TDaP/Td (1 - Tdap) 1993 Hepatitis B Vaccine (1 of 3 - 19+ 3-dose series) 1993 Cologuard 2019 Colon Cancer Screening 2019 Colonoscopy 2019 FIT 2019 Sigmoidoscopy 2019 Virtual Colonography 2019 Pneumococcal Vaccine 50+ (1 of 1 - PCV) 01/12/2024 Zoster (1 of 2) 01/12/2024 COVID-19 Vaccine ( - 2023-2 5 season) 2024 Influenza Vaccine (#1) 2025 Meningococcal B Vaccine Aged Out No l onger eligible based on patient's age to complete this topic Insurance [employer] [place] [id number] MDR [employer] [place] [address] [place] [employer] [place] [address] [address] [facility]
--- NOTE | 2024-12-04 12:28 | XR_ITS ---
PROCEDURE INFORMATION: Exam: XR Chest Exam date and time: 12/04/2024 12:34 PM Age: 49 years old Clinical indication: Cough; Prior surgery; Surgery date: 1-6 months; Surgery type: Treachea; Additional info: Evaluation for lung issues. Cough x 3weeks. Chest pain x 2 weeks. 2 weeks low grade fever. Treachea TECHNIQUE: Imaging protocol: Radiologic exam of the chest. Views: 2 views. COMPARISON: CT ANGIO CHEST PE PROTOCOL 08/30/2024 6:42 PM FINDINGS: Lungs: There is poor ventilation of the lungs, with perihilar vascular crowding and a diffuse increase in pulmonary parenchymal density. Streaky airspace opacities in lower lobes could be attributed to atelectasis versus developing pneumonia/aspiration in the appropriate clinical context. Pleural spaces: Unremarkable. No pleural effusion. No pneumothorax. Heart/Mediastinum: Unremarkable. No cardiomegaly. Bones/joints: Unremarkable. IMPRESSION: Streaky airspace opacities in lower lobes could be attributed to atelectasis versus developing pneumonia/aspiration in the appropriate clinical context.
== END 2024-12-04 23:59 | disposition home or self-care (01) ==
LOC: RAD 12:25
PROVIDERS: PCP Family Medicine; Visit Provider Student in an Organized Health Care Education/Training Program
DX: R91.8 Other nonspecific abnormal finding of lung field (principal); R05.9 Cough, unspecified
CPT/HCPCS: 71046

== ENCOUNTER 2024-12-06 23:35 | Inpatient (IN) | payer MEDICAID, SELFPAY ==
--- NOTE | 2024-12-06 23:30 | ECG_ITS ---
APPROVED REPORT Exam: Resting ECG HR:122 bpm ECG Measurements Heart Rate 122 AXES WV 132 P 46 QRSd 98 QRS 96 QT 281 T 29 QTc 354 Conclusion SINUS TACHYCARDIA BORDERLINE RIGHT AXIS DEVIATION [QRS AXIS > 90] LOW QRS VOLTAGE IN PRECORDIAL LEADS [QRS DEFLECTION < 1.0 mV IN CHEST LEADS] ABNORMAL RHYTHM ECG UNCONFIRMED REPORT Electronically signed by : MIKE DÍAZ, 12/09/2024 04:58:41
[2024-12-06 23:43] VITALS: BP 131/85; PULSE 106; RESP 18; TEMP 37.4; O2SAT 96; BMI 51.6
--- NOTE | 2024-12-06 23:47 | HMH.EDGENADL ---
Discharge Plan Disposition Patient Disposition: Admitted Clinical Impressions Clinical Impression: Acute on chronic respiratory failure with hypoxia and hypercapnia, Heart failure, Abdominal wall cellulitis Discharge ED Provider: Leopoldo Titus Adult HPI General Chief complaint: Chest Pain Stated complaint: chest pain Time Seen by Provider: 12/06/24 23:39 Mode of Arrival: Ambulatory Source of Information: Patient Description of Symptoms (Recalled from ER Triage Doc. by RN): pt presents to the Ed d/t complaints of chest pain and increased redness in belly. pt has trach and has been on abx for pinkits per patient. History of Present Illness HPI narrative: 49-year-old female with history of heart failure, respiratory failure with trach, morbid obesity presents for multiple complaints. She reports that she is having more shortness of breath than normal and has been associated with chest pain over the last day or so. She also reports increased redness in her abdomen. She reports that she has had infections there before but this is worse than normal. She reports approximately 20 pound weight gain at home. She denies fever at home. Related Data Home Medications ?Medication ?Instructions ?Recorded ?Confirmed cyclobenzaprine 5 mg tablet 5 mg PO TID 08/12/24 12/04/24 bisacodyl 5 mg tablet,delayed 5 mg PO HSP PRN constipation 08/31/24 12/04/24 release (Dulcolax (bisacodyl)) omeprazole 40 mg capsule,delayed 80 mg PO BID 12/04/24 release Previous Rx's ?Medication ?Instructions ?Recorded losartan 25 mg tablet 25 mg PO DAILY #30 tabs 05/15/24 propranolol 10 mg tablet 10 mg PO BID #60 tabs 05/15/24 albuterol sulfate 90 mcg/actuation 2 inh inhalation Q6H PRN shortness 07/22/24 aerosol inhaler (Ventolin HFA) of breath or wheezing #18 grams fluticasone fur. 100 mcg-umeclid 1 inh inhalation DAILY 90 days #90 07/22/24 62.5 mcg-vilant 25 mcg blisters inhalat.powder (Trelegy Ellipta) rivaroxaban 10 mg tablet (Xarelto) 10 mg PO DAILY #10 tabs 07/26/24 linaclotide 145 mcg capsule 145 mcg PO DAILY #90 caps 08/13/24 (Linzess) ziprasidone HCl 40 mg capsule 40 mg PO BID #60 caps 09/06/24 (Geodon) duloxetine 30 mg capsule,delayed 90 mg (3 x 30 mg) PO DAILY #180 09/11/24 release caps levothyroxine 25 mcg tablet 25 mcg PO 0700 #90 tabs 09/11/24 rimegepant 75 mg disintegrating 75 mg PO Q48H #40 tabs 09/11/24 tablet (Nurtec ODT) torsemide 100 mg tablet 100 mg PO DAILY #90 tabs 09/11/24 diazepam 5 mg tablet 5 mg PO BID PRN anxiety #60 tabs 10/10/24 lamotrigine 100 mg tablet 100 mg PO DAILY #30 tabs 10/10/24 ondansetron 4 mg disintegrating See Rx Instructions .Route 10/10/24 tablet .COMPLEX #30 ea promethazine 25 mg tablet See Rx Instructions .Route 10/10/24 .COMPLEX #30 tabs quetiapine 100 mg tablet See Rx Instructions .Route 10/10/24 .COMPLEX #60 tabs sumatriptan succinate 100 mg tablet See Rx Instructions .Route 10/11/24 .COMPLEX #10 tabs gabapentin 600 mg tablet 600 mg PO TID #90 tabs 11/08/24 gentamicin 0.3 % eye drops 1 drp ophthalmic (eye) Q4H 11/11/24 conjunctivitis #5 mL tirzepatide (weight loss) 2.5 2.5 mg (0.5 mL) SQ WEEKLY sleep 11/11/24 mg/0.5 mL subcutaneous pen apnea, morbid obesity #2 mL injector (Zepbound) oxycodone-acetaminophen 10 mg-325 1 tab PO QIDP PRN Mild Pain (Scale 11/13/24 mg tablet Score 1-4) #120 tabs terbinafine HCl 1 % topical cream 1 applic topical BID #30 grams 11/13/24 (Lamisil AT) fluticasone propionate 50 1 spray intranasal DAILY #16 grams 11/14/24 mcg/actuation nasal spray,suspension (Flonase Allergy Relief) spironolactone 50 mg tablet 50 mg PO DAILY 90 days #90 tabs 11/14/24 (Aldactone) levofloxacin 750 mg tablet 750 mg PO DAILY 7 days #7 tabs 12/04/24 Allergies Allergy/AdvReac Type Severity Reaction Status Date / Time doxycycline Allergy Severe Blister Verified 12/04/24 11:42 clindamycin Allergy Blister Verified 12/04/24 11:42 Sulfa (Sulfonamide AdvReac Intermediate Rash Verified 12/04/24 11:42 Antibiotics) amoxicillin AdvReac Other Verified 12/04/24 11:42 morphine AdvReac Headache Verified 12/04/24 11:42 nitrofurantoin (From AdvReac Other Verified 12/04/24 11:42 Macrobid) [facility] Disclaimer: The information contained in this section may have been updated after the patient was seen, as this information can be updated by other users. Medical History (Updated 12/07/24 @ 02:39 by Leopoldo Titus MD) Tracheostomy tube present Low O2 saturation Cough Dermatitis Skin lesion Multiple substance abuse Degenerative disc disease, thoracic Acute exacerbation of chronic obstructive pulmonary disease Nausea and vomiting Abdominal pain Acute and chronic respiratory failure Obesity, morbid Deliberate self-cutting Otitis externa of left ear Dysphagia Hearing difficulty of left ear Otalgia, left ear Asthma Acute on chronic respiratory failure with hypoxia and hypercapnia Palpitations Ear pain, right Acute and chronic respiratory failure with hypercapnia PTSD (post-traumatic stress disorder) Chest pain Generalized anxiety disorder Recurrent major depression resistant to treatment Sleep apnea History of ectopic History of hyperkalemia Diastolic congestive heart failure Paranoid schizophrenia Uses bilevel positive airway pressure (BPAP) ventilation at home History of sleep apnea History of asthma Cellulitis of right lower extremity Acute and chronic respiratory failure with hypercapnia Pneumonia Acute and chronic respiratory failure Right lower lobe pneumonia History of smoking 30 or more pack years Obesity hypoventilation syndrome Chronic respiratory failure with hypercapnia Severe sepsis COVID-19 Acute and chronic respiratory failure Pneumonia Tracheostomy in place Edema Sinus tachycardia Dizziness Diastolic dysfunction Acute on chronic diastolic heart failure Respiratory failure with hypoxia and hypercapnia Congestive heart failure Acute on chronic diastolic heart failure Elevated d-dimer PAC (premature atrial contraction) Chest pain Dyspnea HTN (hypertension) COPD (chronic obstructive pulmonary disease) Tobacco abuse Abnormal stress test SOB (shortness of breath) Angina, class III Obesity Hypothyroidism (~11/21/17) Asthma Insomnia Depression Anxiety Neuropathy Surgical History History of tracheostomy History of appendectomy History of cholecystectomy History of colonoscopy History of left knee surgery History of hysterectomy Family History Other No significant family history Social History Smoking Status: Never smoker smoking status stop date: 02/2022 alcohol intake: former substance use type: marijuana current occupational status: disabled Travel in the last 8 weeks?: None household members: family housing: apartment number of children: 0 current occupational exposures/hazards: No caffeine: Yes Other Medical History Have you received the Flu Vaccine for this season: No Have you received the Pneumonia Vaccine: No ROS Obtained: Yes All systems reviewed & no additional complaints except as documented Physical Exam General General appearance: alert, anxious and obese Head Head exam: atraumatic and normocephalic Eye Eye exam: Present normal appearance, PERRL and EOMI ENT ENT exam: Present normal oropharynx and normal external ear exam Neck Neck exam: Present normal inspection and full ROM Chest Chest inspection: Present normal inspection and symmetric chest wall rise; Absent tenderness Respiratory Respiratory exam: Present normal lung sounds bilaterally; Absent respiratory distress Cardiovascular Cardiovascular exam: Present regular rate and normal rhythm Abdominal Exam Abdominal exam: Present distention and tenderness; Absent soft or guarding Comment: Diffuse redness and induration consistent with cellulitis Extremities Exam Extremities exam: Present edema and joint swelling Back Exam Back exam: Present normal inspection; Absent tenderness Neurological Exam Neurological exam: Present alert and oriented X3; Absent motor sensory deficit Psychiatric Psychiatric exam: Present normal affect and normal mood Skin Skin exam: Present warm, dry and normal color Lymphatic Lymphatic Findings: no adenopathy Medical Decision Making Medical Records Medical records reviewed: Yes I reviewed the patient's medical records. Screening: Per USPSTF and CDC recommendations, given the prevalence of disease in our region, it is our hospital?s policy to screen for HIV and viral Hepatitis for all patients aged 18 and over and those with ongoing risk factors. Estrada Inquiry Pt receiving controlled substance: No Estrada was queried for this patient: No Vital Signs: 12/06/24 23:43 12/07/24 02:22 Temperature 99.3 F 99.3 F Temperature Source Oral Oral Pulse Rate 109 H Pulse Rate [Right Radial] 106 H Respiratory Rate 18 20 Blood Pressure 164/93 H Blood Pressure [Right Arm] 131/85 Blood Pressure Mean [Right Arm] 100 Blood Pressure Source Automatic Cuff Blood Pressure Position Sitting Blood Pressure Position [Right Arm] Sitting 02 Sat by Pulse Oximetry 96 Oxygen Delivery Method Trach Collar/ Tube BiPAP Oxygen Flow Rate (LPM) 3.5 Lab Data Lab results reviewed: Yes I reviewed the patient's lab results. Lab Results 12/07/24 00:02: WBC 10.6, RBC 4.64, Hgb 12.8, Hct 42.3, MCV 91.2, MCH 27.6, MCHC 30.3 L, RDW 16.5, Plt Count 233, MPV 10.4, Neut % (Auto) 75.4, Lymph % (Auto) 14.8, Casey % (Auto) 7.0, Eos % (Auto) 1.1, Baso % (Auto) 0.3, Neut # (Auto) 8.0 H, Lymph # (Auto) 1.6, Casey # (Auto) 0.7, Eos # (Auto) 0.1, Baso # (Auto) 0.0, Sodium 137, Potassium 5.7 H, Chloride 97 L, Carbon Dioxide 32 H, Anion Gap 13.7, BUN 25 H, Creatinine 1.10 H, Estimated Creat Clear 57, Estimated GFR 53 L, Est GFR ( Amer) 64, Glucose 119 H, Calcium 9.0, Total Bilirubin 0.6, AST 45 H, ALT 16, Alkaline Phosphatase 63, Troponin I 0.02, NT-Pro-B Natriuret Pep 1110 H, Total Protein 8.6 H, Albumin 4.4, Globulin 4.2 H, Albumin/Globulin Ratio 1.0 L 12/07/24 00:07: VBG pH 7.22 L, VBG pCO2 76.5 H, VBG pO2 61.5 H, VBG HCO3 30.3 H, VBG Total CO2 32.6 H, VBG O2 Saturation 92.1 H, VBG Base Excess 2.5 H, VBG Lactic Acid 1.7 12/07/24 01:30: Urine Color Yellow, Urine Appearance Clear, Urine pH 6.0, Ur Specific [place] 1.025, Urine Protein Trace, Urine Glucose (UA) Negative, Urine Ketones Negative, Urine Blood Negative, Urine Nitrate Negative, Urine Bilirubin Negative, Urine Urobilinogen 0.2, Ur Leukocyte Esterase Negative 12/07/24 00:02 12/07/24 00:02 Orders (Tests/Meds): ED MEDICATIONS Generic Name Dose Route Start Last Admin Trade Name Freq PRN Reason Stop Dose Admin Sodium Chloride 1,000 mls @ 50 mls/hr 12/07/24 02:45 Sod Chlor 0.9% 1000ml Bag IV 01/06/25 02:44 .Q20H GERMAN Miscellaneous 1 each 12/07/24 00:15 Vancomycin Consult Request NOTAPPLIC 01/06/25 00:14 CONSULT PHARM[facility]Y [facility] Sodium Chloride 10 ml 12/07/24 02:41 Sodium Chloride 0.9% 10ml Flush Syringe IV 01/06/25 02:40 NEEDED PRN Maintain IV Site Discontinued Medications Generic Name Dose Route Start Last Admin Trade Name Burtonq PRN Reason Stop Dose Admin Acetaminophen 1,000 mg 12/07/24 00:06 12/07/24 00:35 Acetaminophen 500mg Tab PO 12/07/24 00:07 1,000 mg ONCE ONE Administration Furosemide 80 mg 12/07/24 00:08 12/07/24 00:36 Furosemide 40mg/4ml Vial IV 12/07/24 00:09 80 mg ONCE ONE Administration Vancomycin HCl 2,500 mg/ 500 mls @ 250 mls/hr 12/07/24 00:30 12/07/24 01:01 Sodium Chloride IV 12/07/24 02:29 250 mls/hr ONCE ONE Administration ORDERS Category Date Time Status XR chest portable Stat Exams 12/07/24 00:00 Completed BNP [NT Pro Brain Natriuretic Pep.] Stat Lab 12/07/24 00:02 Completed Complete Blood Count Auto Diff Stat Lab 12/06/24 23:49 Completed Comprehensive Metabolic Panel Stat Lab 12/06/24 23:49 Completed Full Resp Panel w/COVID ([facility]) Routine Lab 12/07/24 00:31 Received Lactate Venous Stat Lab 12/07/24 00:06 Ordered Troponin I Q3H Lab 12/07/24 03:00 Ordered Troponin I Q3H Lab 12/07/24 06:00 Ordered Troponin I Stat Lab 12/06/24 23:48 Completed UA [Urinalysis and Microscopic] Stat Lab 12/07/24 01:30 Results Urinalysis and Microscopic Stat Lab 12/07/24 01:34 Ordered Blood Culture Stat Micro 12/07/24 00:40 Received VBG [Venous Blood Gas] Stat RT 12/07/24 00:07 Completed ECG Data Tracing #1: I reviewed this ECG and interpreted as documented below: Sinus tachycardia, rate of 122, no QRS voltage, no significant ST elevation. ECG initial impression date: 12/06/24 ECG initial impression time: 23:32 Tissue Perfus/Sepsis Re-Eval Sepsis Re-Evaluation Performed: Yes Date Performed: 12/07/24 Time Performed: 00:01 HEART Score History (anamnesis): Moderately suspicious ECG: Non-specific disturbance Age: 45-65 years Risk factors: 1-2 risk factors Troponin: </= normal limit HEART Score: 4 Medical Decision Narrative: 49-year-old female with chronic respiratory failure with trach, heart failure, morbid obesity presents for worsening shortness of breath and chest pain at home, 20 pound weight gain and worsening abdominal wall redness. History was obtained via interactive discussion with patient, EMS, chart review. On arrival, patient is afebrile, tachycardic, normotensive, moving all extremities spontaneously. Full physical exam performed and significant for morbid obesity, diffuse pitting edema, abdominal wall cellulitis Differential includes but is not limited to heart failure, pneumonia, ACS, cellulitis, NSTI. Patient was given suctioning, breathing treatment and placed on home CPAP for symptomatic management, given 80 of Lasix and vancomycin ordered. I did not give any fluid in the setting of infection as patient is clearly volume overloaded. Workup initiated including CBC CMP BNP troponin VBG blood culture urine urine culture chest x-ray. On re-evaluation, patient remains tachycardic and dyspneic. Laboratory workup independently interpreted by me and significant for negative initial Trop, no significant leukocytosis, partially compensated respiratory acidosis, negative lactate, mild hyperkalemia, BNP elevated at 1100 Imaging independently interpreted by me and significant for no focal opacity. See radiology read for full review of final results. Given patient history, exam and workup, patient's presentation most likely represents acute on chronic heart failure, respiratory failure, abdominal wall cellulitis. Interactive discussion was had with hospitalist for admission for heart failure and cellulitis. Procedures Risk/Benefits of Procedure(s) Were Explained: Yes Critical Care Critical Care Time Critical Care Time: Yes Attestation: On 12/06/24, the high probability of a clinically significant, sudden or life threatening deterioration of the following system(s) required my full and direct attention, intervention and personal management. The time I documented below is in addition to time spent performing reported procedures but includes the following listed in this critical care notation. Total Time Total Critical Care Time: 40
[2024-12-07] VITALS (30 sets, daily range): BP systolic 86–174; BP diastolic 50–121; PULSE 60–116; RESP 11–32; TEMP 36.6–40; O2SAT 85–96; BMI 75.2
--- NOTE | 2024-12-07 | XR_ITS ---
PROCEDURE INFORMATION: Exam: XR Chest Exam date and time: 12/07/2024 12:49 AM Age: 49 years old Clinical indication: Sternal or substernal pain; Additional info: Chest pain TECHNIQUE: Imaging protocol: Radiologic exam of the chest. Views: 1 view. COMPARISON: CR XR CHEST 2V 12/04/2024 12:34 PM FINDINGS: Lungs: Unremarkable. No consolidation. Pleural spaces: Unremarkable. No pleural effusion. No pneumothorax. Heart/Mediastinum: Unremarkable. No cardiomegaly. Bones/joints: Unremarkable. IMPRESSION: No acute findings.
[2024-12-07 00:20] LABS: Hematocrit 42.3 % (37.0-47.0); Hemoglobin 12.8 g/dL (12.2-16.2); Mean Corpuscular HGB Conc 30.3 g/dL (31.8-35.4); Mean Corpuscular Hemoglobin 27.6 pg (27.0-31.2); Mean Corpuscular Volume 91.2 fl (81-99); Red Blood Count 4.64 M/mm3 (4.20-5.40); White Blood Count 10.6 K/mm3 (4.8-10.8)
[2024-12-07 00:21] LABS: Nucleated Red Blood Cells % 0.4 %; Platelet Count 233 K/mm3 (142-424); Red Cell Distribution Width-SD 54 fL
[2024-12-07 00:22] LABS: Immature Granulocytes % 1.4 %
--- OUTSIDE RECORDS SUMMARY | 2024-12-07 00:23 | XMS_ITS | Encounter Summary ---
Author Organization [employer] ([place], [place], [place], [place]) Address [address] [place] [address] Care Team Providers Care Wheel Installer Name Role Phone Unavailable Primary Care Provider Unavailabl e Encounter Details Date Type Department Care Team (Late st Contact Info) Description 08/18/2021 Transcribed Document [facility] Family Medicine [address] [place] [address] ProviderMaría MD [address] [place] [address] Social History Tobacco Use Types Packs/Day Years Used Date Smoking Tobacco: Never Assessed Comments Unknown Sex and Gender Information Value Date Recorded Sex Assigned at Female 11/30/2021 3:01 PM CDT Legal Sex Female 3:01 PM CDT Gender Identity Female 11/30/2021 3:01 PM CDT Sexual Orientation Not on file documented as of this encounter Miscellaneous Notes * Cerner Conversion Note - Historical ProviderMD - 08/18/2021 3:04 PM CDT [place] OT Charges Entered On: 08/18/2021 15:05 EDT Performed On: 08/18/2021 15:04 EDT by GIANNA RHODES OTR/L [place] OT Charges OT EA ADDL 15 MIN NO CHARGE : 2 (Comment: MDR [GIANNA RHODES OTR/Az - 08/18/2021 15:05 EDT] ) GIANNA RHODES OTR/Az - 08/18/2021 15:05 EDT Electronically signed by [facility] [employer] Operations Center Technician Cerner at 09/18/2022 8:58 AM CDT documented in this encounter Plan of Treatment Not on file documented as of this encounter Visit Diagnoses Not on filedocumented in this encounter
--- OUTSIDE RECORDS SUMMARY | 2024-12-07 00:23 | XMS_ITS | Encounter Summary ---
Author Organization [employer] ([place], [place], [place], [place]) Address [address] [place] [address] Care Team Providers Care Barrel Bander Name Role Phone Unavailable Primary Care Provider Unavailabl e Encounter Details Date Type Department Care Team (Late st Contact Info) Description 08/17/2021 Transcribed Document [facility] [place] Family Medicine [facility] [place] [address] ProviderMaría MD [address] [place] [address] Social History Tobacco Use Types [...] Cerner Conversion Note - Historical ProviderMD - 08/17/2021 2:00 AM CDT Pain Assessment Entered On: 08/17/2021 1:47 EDT Performed On: 08/17/2021 2:39 EDT by MARIANELA TOBAR RN Flex II Intervention Information: oxyCODONE Performed by MARIANELA TOBAR RN Flex II on 08/17/2021 01:39:00 EDT oxyCODONE,5mg Oral Pain Assessment Pain Assessment : Follow-up assessment Pain Scale Goal : 4 Pain Scale Used : 0-10 Scale MARIANELA TOBAR RN Flex II - 08/17/2021 1:47 EDT Pain Scale Intensity : 6 MARIANELA TOBAR RN Flex II - 08/17/2021 1:47 EDT Image 4 - Images currently included in the form version of this document have not been included in the text rendition version of the form. documented in this encounter Plan of Treatment Not on file documented as of this encounter Visit Diagnoses Not on filedocumented in this encounter
--- OUTSIDE RECORDS SUMMARY | 2024-12-07 00:23 | XMS_ITS | Encounter Summary ---
Author Organization [employer] ([place], [place], [place], [place]) Address [address] [place] [address] Care Team Providers Care Reserve Officer Name Role Phone Unavailable Primary Care Provider Unavailabl e Encounter Details Date Type Department Care Team (Late st Contact Info) Description 08/16/2021 Transcribed Document [facility] [place] [facility] Family Medicine [address] [place] [address] ProviderMaría MD [address] [place] [address] Social History Tobacco Use Types [...] Cerner Conversion Note - Historical ProviderMD - 08/16/2021 5:00 AM CDT Chart Check - Review Order Profile Entered On: 08/16/2021 4:45 EDT Performed On: 08/16/2021 5:00 EDT by Venkat Chow Lpn Chart Check [employer] Initiated/Discontinued as Appropriate : Yes All Active Orders Reviewed : Yes Venkat Chow Lpn - 08/16/2021 4:45 EDT documented in this encounter Plan of Treatment Not on file documented as of this encounter Visit Diagnoses Not on filedocumented in this encounter
--- OUTSIDE RECORDS SUMMARY | 2024-12-07 00:23 | XMS_ITS | Encounter Summary ---
Author Organization [employer] ([place], [place], [place], [place]) Address [address] [place] [address] Care Team Providers Care Sephora Operations Consultant Name Role Phone Unavailable Primary Care Provider Unavailabl e Encounter Details Date Type Department Care Team (Late st Contact Info) Description 08/15/2021 Transcribed Document [facility] [place] Family Medicine [address] [place] [address] ProviderMaría MD [address] [place] [address] Social History Tobacco Use Types [...] Cerner Conversion Note - Historical ProviderMD - 08/15/2021 12:39 AM CALL SPECIALIST Meds to Bed Enrollment Entered On: 08/16/2021 10:36 EDT Performed On: 08/15/2021 0:39 EST by Jose Maria Freeman, Food Prep Worker Cert Lead Meds to Bed Enrollment Patient Enrollment Decision: : Yes/enroll in meds to bed program Jose Maria Freeman Food Prep Worker Cert Lead - 08/16/2021 10:36 EDT documented in this encounter Plan of Treatment Not on file documented as of this encounter Visit Diagnoses Not on filedocumented in this encounter
--- OUTSIDE RECORDS SUMMARY | 2024-12-07 00:23 | XMS_ITS | Encounter Summary ---
Author Organization [employer] ([place], [place], [place], [place]) Address [address] [place] [address] Care Team Providers Care Manager Gallery Name Role Phone Unavailable Primary Care Provider Unavailabl e Encounter Details Date Type Department Care Team (Late st Contact Info) Description 08/16/2021 Transcribed Document [facility] [place] [facility] [place] [address] ProviderMaría MD [address] [place] [address] Social History Tobacco Use Types [...] Conversion Note - Historical ProviderMD - 08/16/2021 8:53 AM CDT Patient: CARIN LUCERO Age: 46 years Sex: Female : 1975 Associated Diagnoses: None Author: ERIKA GRANADO MD-INF Basic Information CC: Abdominal wall cellulitis, PEG tube infection History of Present Illness 46 yo female with h/o IRLANDA, morbid obesity, tobacco abuse, COVID-19 pneumonia, and recent respiratory arrest at [facility] requiring tracheostomy/PEG about a month ago with transfer to [facility]. She was discharged on 08/11. She has been tolerating oral intake and was scheduled to have PEG removed next week. She began having pain around the PEG tube site around 3 days ago with the area becoming more red with burning sensation prompting her to come to [facility] ED on 08/14/21. She denies fever, chills, shortness of breath, cough, nausea, vomiting, diarrhea, or dysuria. On arrival, her Tmax was 100.6, she was tachycardia and on room air. She is currently on trach collar at 28% FiO2. Labs are creatinine 1.2, proBNP 214, WBC 9600 with 75% neutrophils, and PCT <0.25. A COVID-19/Flu PCR was negative. A CXR showed decreased lung volumes but no definitive evidence of pneumonia. A CT scan of a/p with contrast on 08/14 showed abnormal location of gastrostomy tube and surrounding inflammation with no evidence of any abscess or fluid collection. GI has seen patient and recommending removal of PEG tube tomorrow 08/16. She is currently on Zosyn and Vancomycin. ID was asked to evaluate and manage her antibiotic therapy on 08/15/2021. Patient also complains of some trach site drainage. Patient has had pain at the PEG site 4 weeks since its been placed. No other localizing signs or symptoms of infection. No ill contacts, zoonotic exposures, significant travel history. Also low-grade fevers for weeks. 08/16/2021 history reviewed. No fever. Some abdominal pain at PEG tube site. Awaiting explantation of PEG today. Tolerating vancomycin and piperacillin tazobactam, duration to be determined. Review of Systems Constitutional: Weakness, No fever, No chills, No sweats. Eye Ear/Nose/Mouth/Throat Respiratory: No shortness of breath, No cough, No sputum production. Cardiovascular: No palpitations, No bradycardia. Gastrointestinal: No nausea, No vomiting, No diarrhea Abdominal pain: The pain is mild, Characterized as ( Intermittent ). Genitourinary: No dysuria, No hematuria, No change in urine stream. Hematology/Lymphatics: No bruising tendency, No bleeding tendency, No swollen lymph glands. Endocrine: No excessive thirst, No polyuria, No cold intolerance, No heat intolerance. Immunologic: Not immunocompromised, No recurrent fevers, No recurrent infections. Musculoskeletal: No back pain, No neck pain, No joint pain, No muscle pain, No claudication, No decreased range of motion. Integumentary: No rash, No abrasions. Neurologic: No confusion, No headache. Psychiatric: No anxiety, No depression. Health Status Current medications: Medications by Classification Antimicrobials piperacillin-tazobactam + Sodium Chloride 0.9% intravenous s - 3.375 Gram, IV Piggyback, Inj, Q6HInt, infuse over 3 Hour(s) vancomycin + Sodium Chloride 0.9% intravenous solution 250 m - 1,500 mg, IV Piggyback, Inj, [id number], infuse over 60 Minute(s) Anticoagulant enoxaparin (Lovenox) - 40 mg, SubCutaneous, Inj, [id number], Routine Cardiovascular hydrALAZINE - 10 mg, Oral, Tab, TID lisinopril - 10 mg, Oral, Tab, Daily Respiratory albuterol-ipratropium (DuoNeb 0.5 mg-2.5 mg/3 mL inhalation - 3 mL, Nebulized Inhalation, Inh, RT_Q6H, PRN for Shortness of Breath, Routine promethazine (Phenergan) - 6.25 mg, IntraVENous, Inj, Q6H, PRN for Nausea, Routine GI ondansetron (Zofran) - 4 mg, IV Push, Inj, Q4H, PRN for Nausea, Routine famotidine (Pepcid) - 20 mg, IV Push, Inj, Daily, Routine bisacodyl (Dulcolax Laxative) - 5 mg, Oral, EC Tab, Daily, PRN for Constipation, Routine polyethylene glycol 3350 (MiraLax) - 17 Gram, Oral, Powder, Daily, PRN for Constipation, Routine Endocrine levothyroxine - 25 mcg, Oral, Tab, Daily Neuro divalproex sodium (Depakote ER) - 500 mg, Oral, ER Tab, Daily gabapentin - 800 mg, Oral, Cap, TID lamoTRIgine (LaMICtal) - 100 mg, Oral, Tab, Daily SUMAtriptan (Imitrex) - 100 mg, Oral, Tab, Daily Psych traZODone - 100 mg, Oral, Tab, TID, Routine buPROPion (Wellbutrin XL) - 300 mg, Oral, XL Tab, Daily vilazodone (Viibryd) - 40 mg, Oral, Tab, Daily ziprasidone (Geodon) - 40 mg, Oral, Cap, Daily Pain Meds HYDROmorphone (Dilaudid) - 0.5 mg, IV Push, Inj, Q2H, PRN for Pain (Severe 7-10), Routine oxyCODONE (Roxicodone) - 5 mg, Oral, Tab, Q4H, PRN for Pain (Moderate 4-6), Routine acetaminophen (Tylenol) - 650 mg, Oral, Tab, Q4H, PRN for Pain (Mild 1-3), Routine acetaminophen (Tylenol) - 650 mg, Oral, Tab, Q4H, PRN for Fever, Routine Sedatives clonazePAM - 0.5 mg, Oral, Tab, Daily Physical Examination VS/Measurements Vitals Signs (last 24 hrs) Last Charted Minimum Maximum Temp 98.2 (AUG 16 05:30) 98 (AUG 15 21:32) 98.3 (AUG 15:13) Apical HR 91 (AUG 15 22:06) 91 (AUG 15 22:06) 97 (AUG 15 12:47) Mon HR 93 (AUG 16 05:30) 91 (AUG 15 21:32) 97 (AUG 15:13) Resp Rate 18 (AUG 16 05:30) 17 (AUG 15 18:59) 18 (AUG 15:13) SBP 109 (AUG 16 05:30) 102 (AUG 15 21:32) H 152 (AUG 15:13) DBP 68 (AUG 16 05:30) 64 (AUG 15 21:32) H 102 (AUG 15 11:13) MAP 78 (AUG 16 05:30) 76 (AUG 15 21:32) 127 (AUG 15:13) SpO2 98 (AUG 16 08:28) 95 (AUG 15 19:52) 98 (AUG 16 05:30) General: Alert and oriented, Moderate distress. Eye: Pupils are equal, round and reactive to light, Extraocular movements are intact, Normal conjunctiva. HENT: Normocephalic, Oral mucosa is moist, No pharyngeal erythema, Ears externally normal, nose externally normal. Neck: Supple, Non-tender, No jugular venous distention, No lymphadenopathy, No thyromegaly. Respiratory: Lungs are clear to auscultation, Respirations are non-labored, Breath sounds are equal. Cardiovascular: Normal rate, No gallop, Normal peripheral perfusion. Gastrointestinal: Soft, Non-tender, Non-distended, Normal bowel sounds, No organomegaly. Musculoskeletal: Normal range of motion, Normal strength, No tenderness, No deformity. Integumentary: Warm, Dry, [place], No pallor, No rash, PEG tube site with some induration, minor purulent drainage, no foul smell, minimal erythema on the abdominal wall. Trach site with some purulent discharge and minimal erythema.. Neurologic: Alert, Oriented, No focal deficits. Cognition and Speech: Oriented, Speech clear and coherent. Psychiatric: Cooperative, Appropriate mood & affect. Review / Management Results review: Labs (Last four charted values) WBC 7.3 (AUG 16) 9.6 (AUG 14) HB L 9.8 (AUG 16) L 10.7 (AUG 14) HCT L 31.7 (AUG 16) L 32.8 (AUG 14) Plt L 161 (AUG 16) 186 (AUG 14) Na 139 (AUG 16) 136 (AUG 14) K 4.5 (AUG 16) 3.6 (AUG 14) Cl 102 (AUG 16) L 100 (AUG 14) CO2 32 (AUG 16) 31 (AUG 14) BUN 22 (AUG 16) 17 (AUG 14) Cr H 1.50 (AUG 16) H 1.20 (AUG 14) Glu R H 111 (AUG 16) H 115 (AUG 14) Ca 8.5 (AUG 16) 8.5 (AUG 14) Lactic 1.0 (AUG 14) PT 9.7 (AUG 14) INR 0.9 (AUG 14) PTT 27.5 (AUG 14) AST 12 (AUG 14) ALT 19 (AUG 14) ALK P 65 (AUG 14) T Bili 0.2 (AUG 14) PTN 7.2 (AUG 14) ALB L 2.6 (AUG 14) , ACC: [id number] ORDER: Culture Wound and Stain DATE: 08/15/2021 13:10 SOURCE: Drainage SITE: Trachea Reports Pre 08/16/2021 06:24 Culture in progress GS 08/15/2021 20:07 No cells seen No organisms seen. == ACC: [id number] ORDER: Culture Wound and Stain DATE: 08/15/2021 13:01 SOURCE: Surgical Swab SITE: Abdomen Reports Pre 08/16/2021 06:23 Culture in progress GS 08/15/2021 14:15 No organisms seen. Few White Blood Cells == ACC: [id number] ORDER: Culture Blood DATE: 08/14/2021 19:11 SOURCE: Blood SITE: Reports Pre 08/15/2021 23:01 No growth at 1 day. Pre 08/15/2021 16:01 Culture less than 24 Hrs old == ACC: [id number] ORDER: Culture Blood DATE: 08/14/2021 19:11 SOURCE: Blood SITE: Reports Pre 08/15/2021 23:01 No growth at 1 day. Pre 08/15/2021 16:01 Culture less than 24 Hrs old == . Chest x-ray results Radiology Results (Last 48 hours) [id number] -- 08/14/2021 22:53 CR Chest 1 Vw Portable (08/14/2021 19:57) Result: CHEST ONE VIEWHISTORY: Cough. Shortness of breath.COMPARISON: 02/01/2017FINDINGS: Portable view of the chest demonstrates diminished lungvolumes with mild atelectasis. No focal infiltrate is seen. There is noevidence of effusion, pneumothorax or other significant pleural disease.The mediastinum is unremarkable.The heart size is normal. Tracheostomy tube is noted in place.IMPRESSION: No definite pneumonia. CT Abdomen Pelvis W (08/14/2021 21:28) Result: CT OF THE ABDOMEN AND PELVIS HISTORY: Pain and erythema at feeding tube insertion sitePROCEDURE: Routine axial images were obtained from the lung bases tothe pubic symphysis following IV contrast administration. This study wasperformed with techniques to keep radiation doses as low as reasonablyachievable, (ALARA). Individualized dose reduction techniques usingautomated exposure control or adjustment of mA and/or kV according tothe patient size were employed.COMPARISON: None.FINDINGS: Abdomen: The gallbladder has been removed. Solid abdominal organs andureters are normal. A gastrostomy tube is malpositioned with the bumperat the periphery of the abdominal muscular wall. The abdominal wall is 3cm thick at this level. There is mild stranding of the subcutaneous fatalong the course of the tube. The GI tract is otherwise unremarkable,including the appendix.Pelvis: The uterus and adnexa are not visualized. The urinary bladder isnormal. There is no pelvic or abdominal ascites, adenopathy, or acuteosseous abnormality.IMPRESSION: Abnormal location of left gastrostomy tube with thickeningof the adjacent anterior chest wall. This is likely due to inflammation.A discrete abscess is not identified. Impression and Plan 1. Acute abdominal wall cellulitis with possible PEG site infection. Usual orgs are staph or strep. Culture pending. No obvious abscess by CT scan 08/14/2021. 2. Possible tracheostomy site infection. Check culture. Purulent discharge. 3. Acute renal insufficiency with recent Acute renal failure at OSH. Would avoid nephrotoxic agents. Worse. 4. Fever, related to above. 5. Recent acute respiratory arrest requiring mechanical intubation and eventual tracheostomy and PEG placement about a month ago at OSH. 6. Obstructive sleep apnea/BiPAP at home. 7. Morbid obesity. 8. Hypothyroidism. 9. Essential hypertension. 10. Probable Obesity hypoventilation syndrome. 11. On multiple psych medications. 12. Recent COVID-19 pneumonia. Required intubation at some point. 13. Acute hypoxic respiratory failure status post previous tracheostomy. On 28% trach collar 08/15/2021. 14. Anemia, chronic disease, worse. 15. Thrombocytopenia, new, probably related to medications. Plan: 1. Diagnostically, blood and PEG site wound cultures, physical examination, imaging, CBC, CMP, ESR, CRP, CPK, procalcitonin, lactic acid. MRSA PCR. Check trach wound culture. 2. Therapeutically, continue Zosyn for now and change Vancomycin to Daptomycin 4 mg/kg IV daily. Check CPK. She will likely need about 7-10 days of antibiotics, but can likely change to oral antibiotics pending cultures on discharge. 3. Awaiting PEG tube removal by GI on 08/16. 4. Continue wound care per GI. 5. Obtain records from [facility] and [facility] and place on chart. 6. Continue oxygen support as needed. Plan has been discussed with patient including side effects of medications and line. At increased risk for side effects of abx and line, and readmission. Discussed in detail with nursing. documented in this encounter Plan of Treatment Not on file documented as of this encounter Visit Diagnoses Not on filedocumented in this encounter
--- OUTSIDE RECORDS SUMMARY | 2024-12-07 00:23 | XMS_ITS | Encounter Summary ---
Author Organization [employer] ([place], [place], [place], [place]) Address [address] [place] [address] Care Team Providers Care Progress Developer Name Role Phone Unavailable Primary Care Provider Unavailabl e Encounter Details Date Type Department Care Team (Late st Contact Info) Description 08/18/2021 Transcribed Document [facility] [place] [address] [place] [address] ProviderMaría MD [address] [place] [address] Social History Tobacco Use Types [...] Conversion Note - Historical ProviderMD - 08/18/2021 5:00 AM CDT Chart Check - Review Order Profile Entered On: 08/18/2021 4:48 EDT Performed On: 08/18/2021 5:00 EDT by Quynh Gunter RN Chart Check All Active Orders Reviewed : Yes Quynh Gunter RN - 08/18/2021 4:48 EDT documented in this encounter Plan of Treatment Not on file documented as of this encounter Visit Diagnoses Not on filedocumented in this encounter
--- OUTSIDE RECORDS SUMMARY | 2024-12-07 00:23 | XMS_ITS | Encounter Summary ---
Author Organization [employer] ([place], [place], [place], [place]) Address [address] [place] [address] Care Team Providers Care Practice Director Name Role Phone Unavailable Primary Care Provider Unavailabl e Encounter Details Date Type Department Care Team (Late st Contact Info) Description 08/15/2021 Transcribed Document [facility] [place] [address] [place] [address] ProviderMaría MD [address] [place] [address] Social History Tobacco Use Types [...] Conversion Note - Historical ProviderMD - 08/15/2021 3:00 AM CDT Barista Details Entered On: 08/16/2021 4:44 EDT Performed On: 08/15/2021 3:00 EDT by Venkat Chow Lpn Order Details Transport Mode Order Detail : Ambulatory Isolation Precautions Order Detail : Standard Precautions Patient Needs Meds Crushed/Liquid : No Venkat Chow Lpn - 08/16/2021 4:44 EDT documented in this encounter Plan of Treatment Not on file documented as of this encounter Visit Diagnoses Not on filedocumented in this encounter
--- OUTSIDE RECORDS SUMMARY | 2024-12-07 00:23 | XMS_ITS | Encounter Summary ---
Author Organization [employer] ([place], [place], [place], [place]) Address [address] [place] [address] Care Team Providers Care Local Company Intermodal Truck Driver Name Role Phone Unavailable Primary Care Provider Unavailabl e Encounter Details Date Type Department Care Team (Late st Contact Info) Description 08/16/2021 Transcribed Document [facility] [place] [address] [place] [address] ProviderMaría MD [address] [place] [address] Social History Tobacco Use Types [...] Conversion Note - Historical ProviderMD - 08/16/2021 9:00 PM CDT Pain Assessment Entered On: 08/16/2021 23:08 EDT Performed On: 08/16/2021 22:14 EDT by MARIANELA TOBAR RN Flex II Intervention Information: acetaminophen Performed by MARIANELA TOBAR RN Flex II on 08/16/2021 21:14:00 EDT acetaminophen,1000mg Oral Pain Assessment Pain Assessment : Follow-up assessment Pain Scale Goal : 4 Pain Scale Used : 0-10 Scale MARIANELA TOBAR RN Flex II - 08/16/2021 23:08 EDT Electronically signed by Roman Eckert Conversion Technical Specialist [employer] Cerner at 09/18/2022 8:51 AM CDT documented in this encounter Plan of Treatment Not on file documented as of this encounter Visit Diagnoses Not on filedocumented in this encounter
--- OUTSIDE RECORDS SUMMARY | 2024-12-07 00:23 | XMS_ITS | Encounter Summary ---
Author Organization [employer] ([place], [place], [place], [place]) Address [address] [place] [address] Care Team Providers Care Child Support Case Officer Name Role Phone Unavailable Primary Care Provider Unavailabl e Encounter Details Date Type Department Care Team (Late st Contact Info) Description 08/18/[address] [facility] [place] [facility] [place] [address] ProviderMaría MD [address] [place] [address] Social History Tobacco Use Types [...] Conversion Note - Historical ProviderMD - 08/18/2021 4:00 AM CDT Pain Assessment Entered On: 08/18/2021 6:01 EDT Performed On: 08/18/2021 5:31 EDT by Quynh Gunter RN Intervention Information: acetaminophen Performed by Quynh Gunter RN on 08/18/2021 04:31:00 EDT acetaminophen,1000mg Oral Pain Assessment Pain Assessment : Follow-up assessment Pain Scale Goal : 4 Pain Scale Used : 0-10 Scale Quynh Gunter RN - 08/18/2021 6:01 EDT Pain Scale Intensity : 0 Quynh Gunter RN - 08/18/2021 6:01 EDT Image 4 - Images currently included in the form version of this document have not been included in the text rendition version of the form. documented in this encounter Plan of Treatment Not on file documented as of this encounter Visit Diagnoses Not on filedocumented in this encounter
--- OUTSIDE RECORDS SUMMARY | 2024-12-07 00:23 | XMS_ITS | Encounter Summary ---
Author Organization [employer] ([place], [place], [place], [place]) Address [address] [place] [address] Care Team Providers Care Painter Sign Maintenance Name Role Phone Unavailable Primary Care Provider Unavailabl e Encounter Details Date Type Department Care Team (Late st Contact Info) Description 08/15/[address] [facility] [place] [facility] [place] [address] ProviderMaría MD [address] [place] [address] Social History Tobacco Use Types [...] Conversion Note - Historical ProviderMD - 08/15/2021 12:22 AM UMBRELLA SUPERVISOR ED Event Note Entered On: 08/15/2021 0:23 EST Performed On: 08/15/2021 0:22 EST by Brittanie Murdock RN ED Event Note ED Event Date/Time : 08/15/2021 0:22 EST ED Description of Event : Patient transported upstairs via stretcher. All of patient belongings taken upstairs. Report was called prior to taking patient upstairs, nothing further needed at this time. Brittanie Murdock RN - 08/15/2021 0:22 EST documented in this encounter Plan of Treatment Not on file documented as of this encounter Visit Diagnoses Not on filedocumented in this encounter
--- OUTSIDE RECORDS SUMMARY | 2024-12-07 00:23 | XMS_ITS | Encounter Summary ---
Author Organization [employer] ([place], [place], [place], [place]) Address [address] [place] [address] Care Team Providers Care Social Science Analyst Name Role Phone Unavailable Primary Care Provider Unavailabl e Encounter Details Date Type Department Care Team (Late st Contact Info) Description 08/15/2021 Transcribed Document [facility] [place] [address] [place] [address] ProviderMaría MD [address], [place] [id number] Social History Tobacco Use Types Packs/Day Years [...] Conversion Note - Historical ProviderMD - 08/15/2021 7:00 AM CDT Consult Phone Call Documentation Entered On: 08/15/2021 8:19 EDT Performed On: 08/15/2021 7:00 EDT by Sandy Owens [facility] Phone Call for Consults Consult Phone Call/Page Attempt : First call Consult Reason : Infected peg tube Physician Requested for Consult : FARIBA LINARES MD-[facility] Provider Service Notified Name : Gastroenterology Date and Time Call Returned : 08/15/2021 8:19 EDT Sandy Owens [facility] - 08/15/2021 8:19 EDT documented in this encounter Plan of Treatment Not on file documented as of this encounter Visit Diagnoses Not on filedocumented in this encounter
--- OUTSIDE RECORDS SUMMARY | 2024-12-07 00:23 | XMS_ITS | Encounter Summary ---
Author Organization [employer] ([place], [place], [place], [place]) Address [address] [place] [address] Care Team Providers Care Electrical/Instrument Technician Name Role Phone Unavailable Primary Care Provider Unavailabl e Encounter Details Date Type Department Care Team (Late st Contact Info) Description 08/18/2021 Transcribed Document [facility] [place] [address] [place] [address] ProviderMaría MD [address] [place] [address] Social History Tobacco Use Types [...] Conversion Note - Historical ProviderMD - 08/18/2021 10:00 PM CDT Pain Assessment Entered On: 08/19/2021 0:42 EDT Performed On: 08/18/2021 23:19 EDT by Apryl Santos RN - [employer] Intervention Information: acetaminophen Performed by Apryl Santos RN - [employer] on 08/18/2021 22:19:00 EDT acetaminophen,1000mg Oral Pain Assessment Pain Assessment : Follow-up assessment Pain Scale Goal : 2 Pain Intervention, Drug : Medicated Pain Improved by Intervention : Yes Apryl Santos RN - [employer] - 08/19/2021 0:42 EDT Electronically signed by Roman Eckert Conversion Composition Board Press Operator Cerner at 09/18/2022 9:27 AM CDT documented in this encounter Plan of Treatment Not on file documented as of this encounter Visit Diagnoses Not on filedocumented in this encounter
--- OUTSIDE RECORDS SUMMARY | 2024-12-07 00:23 | XMS_ITS | Encounter Summary ---
Author Organization [employer] ([place], [place], [place], [place]) Address [address] [place] [address] Care Team Providers Care Information Resource Consultant Name Role Phone Unavailable Primary Care Provider Unavailabl e Encounter Details Date Type Department Care Team (Late st Contact Info) Description 08/16/2021 Transcribed Document [facility] [place] [facility] [place] [address] ProviderMaría MD [address] [place] [address] Social History Tobacco Use Types [...] Conversion Note - Historical ProviderMD - 08/16/2021 11:24 AM CDT Patient: CARIN LUCERO Age: 46 years Sex: Female : 1975 Associated Diagnoses: None Author: Jacinto Baltazar, Resident Pharmacist Pharmacy Consultation - Pain Consult / Pysch Med Review HPI: 46 y/o F presenting to [facility] 2/2 abdominal pain w/ infxn around PEG tube site x 3 days. Per provider H&P: pt endorses burning sensation around site & noted redness. Recent hospital stay at [facility] - just discharged x 3 days prior to admission at [facility]. PMH significant for PEG tube placement, recent respiratory arrest w/ tracheostomy, IRLANDA, tobacco abuse, & morbid obesity among others. Pharmacy consulted to help manage pain & assist with psych medication(s) review per Dr. Jimenes. Indication: pain consult / psych med review Consulting Provider: Dr. Saleem Jimenes Allergies: metoclopramide ABW: 138.64 kg - (57.8) Vitals Signs (last 24 hrs) Last Charted Minimum Maximum Temp 99.2 (AUG 14 10:13) 98 (AUG 15 21:32) 99.2 (AUG 14 10:13) Apical HR 91 (AUG 15 22:06) 91 (AUG 15 22:06) 97 (AUG 13 12:47) Mon HR 119 (AUG 14 10:13) 91 (AUG 15 21:32) 119 (AUG 14 10:13) Resp Rate 18 (AUG 14 05:30) 17 (AUG 13 18:59) 18 (AUG 15 21:32) SBP 107 (AUG 14 10:13) 102 (AUG 15 21:32) 111 (AUG 15 18:59) DBP 66 (AUG 14 10:13) 64 (AUG 15 21:32) 77 (AUG 15 18:59) MAP 79 (AUG 16 10:13) 76 (AUG 15 21:32) 88 (AUG 15 18:59) SpO2 98 (AUG 14 08:28) 95 (AUG 15 19:52) 98 (AUG 16 05:30) Labs (Last four charted values) WBC 7.3 (AUG 14) 9.6 (AUG 12) HB L 9.8 (AUG 14) L 10.7 (AUG 12) HCT L 31.7 (AUG 14) L 32.8 (AUG 12) Plt L 161 (AUG 14) 186 (AUG 12) Na 139 (AUG 14) 136 (AUG 12) K 4.5 (AUG 14) 3.6 (AUG 12) Cl 102 (AUG 14) L 100 (AUG 12) CO2 32 (AUG 14) 31 (AUG 12) BUN 22 (AUG 14) 17 (AUG 12) Cr H 1.50 (AUG 14) H 1.20 (AUG 12) Glu R H 111 (AUG 14) H 115 (AUG 12) Ca 8.5 (AUG 14) 8.5 (AUG 12) Lactic 1.0 (AUG 12) PT 9.7 (AUG 12) INR 0.9 (AUG 12) PTT 27.5 (MAR 12) AST 12 (AUG 14) ALT 19 (AUG 14) ALK P 65 (AUG 14) T Bili 0.2 (AUG 14) PTN 7.2 (AUG 14) ALB L 2.6 (AUG 14) Est. CrCl: 35 mL/min Outpatient Pain Regimen: gabapentin 300 mg PO TID APAP/hydrocodone PO BID PRN severe pain Current Inpatient Pain Regimen: gabapentin 300 mg PO TID APAP 1000 mg PO TID oxycodone 5 mg PO q4h hydromorphone 2 mg PO q4h PRN moderate to severe pain Current Inpatient Pysch Regimen: clonazepam 0.5 mg PO BID - (home dose: clonazepam 0.5 mg TID PRN anxiety) lamotrigine 100 mg PO daily - (home dose) vilazodone 40 mg PO daily - (home dose) ziprasidone 40 mg PO BID - (home dose) Current Total Available MMEs: 165 = 45 + 120 MME Utilization (Previous Day): 48 of 165 possible A/P: 08/16: 1.) D/w Dr. Jimenes via phone - reports that anxiety might be having significant impact on pt's pain. Wants pharmacy to review psych meds as well. 2.) D/w med rec pharmacy team - full medication reconciliation completed to best of pharmacy's ability. 3.) Will make the following changes based on most recently updated home medication list - in concordance with med rec team: - d/c Bupropion, hydralazine, lisinopril, trazodone, & Depakote - not current home medications - sumatriptan changed to PRN as taken at home - 100 mg PO daily PRN migraine - famotidine IV to PO per P&T policy - dose optimized ziprasidone to home dose of 40 mg PO BID - increase clonazepam to 0.5 mg PO BID given such prominent anxiety - takes PRN at home - d/c gabapentin 800 mg PO TID - based on renal fxn, should receive no more than 900 mg/day in 2 or 3 divided doses - dose optimized gabapentin to home regimen of 300 mg PO TID - OK per current renal fxn (est. CrCl ~35 mL/min) - d/c PRN APAP, oxycodone, & IV Dilaudid - scheduled APAP 1000 mg PO TID + oxycodone 5 mg PO q4h - will also add hydromorphone 2 mg PO q4h PRN moderate to severe pain unrelieved by oxycodone - separate from oxycodone by 1 hour - new total available MMEs = 93 --> 45 + 48 - will cont. lamotrigine & vilazodone as currently entered - home meds 4.) Pt underwent procedure today for PEG tube removal. Will need to F/U on pain control tomorrow. 5.) Pharmacy will continue to follow. Bia Antoine, IbisD, BCPS will return to pain management service tomorrow for review as well. Thank you, Jacinto Baltazar, IbisD PGY1 Appeals Writer Pager: [phone], Ext. [phone] documented in this encounter Plan of Treatment Not on file documented as of this encounter Visit Diagnoses Not on filedocumented in this encounter
--- OUTSIDE RECORDS SUMMARY | 2024-12-07 00:23 | XMS_ITS | Encounter Summary ---
Author Organization [employer] ([place], [place], [place], [place]) Address [address] [place] [address] Care Team Providers Care Lining Caser Name Role Phone Unavailable Primary Care Provider Unavailabl e Encounter Details Date Type Department Care Team (Late st Contact Info) Description 08/15/2021 Transcribed Document [facility] [place] [facility] [place] [address] ProviderMaría MD [address] [place] [address] Social History Tobacco Use Types [...] Conversion Note - Historical ProviderMD - 08/15/2021 9:02 AM CDT Rapid Response Team Documentation Entered On: 08/15/2021 9:05 EDT Performed On: 08/15/2021 9:02 EDT by EVIE ONEILL RN Rapid Response Event Rapid Response Team Event End Time : 08/15/2021 9:05 EDT Rapid Response Team Initiation Reason : Positive SIRS screen Rapid Response Event Location Type : Emergency department Rapid Response Admission Diagnosis : Abdominal pain Gastrostomy infection Medical screening exam Sepsis, unspecified organism Sepsis, unspecified organism Unspecified abdominal pain Rapid Response Medical Background : History of obstructive sleep apnea (Medical) Suicide risk (Medical) Rapid Response Allergies : Substance Category Reactions Severity metoclopramide Drug Unknown Rapid Response Recent Vital Signs : 08/15/2021 01:15 Systolic Blood Pressure 147 08/15/2021 01:15 Diastolic Blood Pressure 100 08/15/2021 03:16 Heart Rate Monitored 106 08/15/2021 03:16 Respiratory Rate 20 08/15/2021 01:15 Temperature, Fahrenheit 99.9 08/15/2021 08:58 Oxygen Saturation 96 Rapid Response Recent Lab Results : 08/14/2021 20:15 Sodium Level 136 (136-146) 08/14/2021 20:15 Potassium Level 3.6 (3.5-5.1) 08/14/2021 20:15 Calcium Level 8.5 (8.4-10.1) 08/14/2021 20:15 Magnesium Level 1.9 (1.5-2.4) 08/14/2021 20:15 Chloride Level LOW 100 (102-112) 08/14/2021 20:15 Carbon Dioxide Level 31 (21-32) 08/14/2021 20:15 Blood Urea Nitrogen 17 (7-22) 08/14/2021 20:15 Creatinine Level HI 1.20 (0.55-1.02) 08/14/2021 20:15 PT 9.7 (9.2-12.0) 08/14/2021 20:15 INR 0.9 (0.9-1.2) 08/14/2021 20:15 PTT 27.5 (22.0-33.0) 08/14/2021 20:15 Hgb LOW 10.7 (11.2-15.7) 08/14/2021 20:15 Hct LOW 32.8 (34.1-44.9) 08/14/2021 20:15 RBC LOW 3.52 (3.93-5.22) 08/14/2021 20:15 WBC 9.6 (4.5-10.5) 08/14/2021 20:15 Platelet Count 186 (163-369) 08/14/2021 20:15 Lactic Acid Level 1.0 (0.4-2.0) Weight/BMI : Clinical Weight/BMI CLINICALWEIGHT: 138.64 kg (08/14/21 23:00:00) CLINICALWEIGHT: 138.64 kg (08/14/21 18:55:00) Body Mass Index: 57.8 kg/m2 Critical (08/14/21 23:00:00) Body Mass Index: 57.8 kg/m2 Critical (08/14/21 18:55:00) Rapid Response Team Recommendation/Response : Severe sepsis alert occured in ER and was managed there. Rapid Response Lining Caser #1 : EVIE ONEILL RN EVIE ONEILL RN - 08/15/2021 9:02 EDT Electronically signed by Tomeka [facility] Conversion Cutter Operator Asbestos Shingle Cerner at 09/18/2022 9:35 AM CDT documented in this encounter Plan of Treatment Not on file documented as of this encounter Visit Diagnoses Not on filedocumented in this encounter
--- OUTSIDE RECORDS SUMMARY | 2024-12-07 00:23 | XMS_ITS | Encounter Summary ---
Author Organization [employer] ([place], [place], [place], [place]) Address [address] [place] [address] Care Team Providers Care Multimedia Services Manager Name Role Phone Unavailable Primary Care Provider Unavailabl e Encounter Details Date Type Department Care Team (Late st Contact Info) Description 08/15/2021 Transcribed Document [facility] [place] [facility] [place] [address] ProviderMaría MD [address] [place] [address] Social History Tobacco Use Types [...] Conversion Note - Historical ProviderMD - 08/15/2021 12:09 PM CDT UM Authorization Entered On: 08/15/2021 12:09 EDT Performed On: 08/15/2021 12:09 EDT by ROBERTO CARLOS CISNEROS RN Primary Insurance Authorization Authorization and Policy Numbers : Insurance 1 Health Plan: [facility] Policy Number: [id number] Authorization Number: Insurance Primary Name : [facility] Policy Number: [id number] Authorization Status-Primary : Awaiting callback Reference Number-Primary : [id number] Authorized Service Begin Date-Primary : 08/14/2021 EST Authorization Comments-Primary : Clinicals submitted on [facility] website for IP approval Historical Authorization Comments-Primary : No Authorization Comments Found ROBERTO CARLOS CISNEROS RN - 08/15/2021 12:09 EDT Electronically signed by Tomeka [facility] Conversion Finisher Cold Rolling Cerner at 09/18/2022 8:57 AM CDT documented in this encounter Plan of Treatment Not on file documented as of this encounter Visit Diagnoses Not on filedocumented in this encounter
--- OUTSIDE RECORDS SUMMARY | 2024-12-07 00:23 | XMS_ITS | Encounter Summary ---
Author Organization [employer] ([place], [place], [place], [place]) Address [address] [place] [address] Care Team Providers Care Station Installation Supervisor Name Role Phone Unavailable Primary Care Provider Unavailabl e Encounter Details Date Type Department Care Team (Late st Contact Info) Description 08/18/2021 Transcribed Document [facility] [facility] [place] [address] ProviderMaría MD [address] [place] [address] Social History Tobacco Use Types [...] Conversion Note - Historical ProviderMD - 08/18/2021 2:10 PM CDT Patient: CARIN LUCERO Age: 46 years Sex: Female : 1975 Associated Diagnoses: None Author: Hany Teresa, PharmD/MPH, Pharmacist-Resident Pain Management Pharmacy Consultation HPI: A 46 year old female presents fro abdominal pain with infection around PEG tube site. Onset began 3 days ago. Reports PEG tube sites is red and painful. Reports burning sensation around PEG tube site. Abdominal pain is moderate, 6 out of 10, crampy, achy, constant, nonradiating. No exacerbating or relieving factors. Patient states that she recently had a respiratory arrest last month and admitted to [facility]. Patient CO2 was reportedly greater than 100. Patient was admitted and eventually had to have a trach and peg placed. Patient was tolerating po intake and was about to have peg tube removed next week. Relevant PMH: peg tube placement, recent respiratory arrest, obstructive sleep apnea, tobacco abuse, morbid obesity. Indication: pain product management manager MD: Saleem Jimenes Allergies: metoclopramide Outpatient Pain Regimen: gabapentin 300mg tid Current Inpatient Pain Regimen: Apap 1g oral tablet tid Gabapentin 300mg oral tablet q6h Oxycodone 5mg oral tablet q4h PRN mod-severe pain (4-10) Hydromorphone 2mg oral tablet q4h prn for pain Current Available MMEs: 93 MME Utilization in Previous 24 Hours: 102.5 Labs (Last four charted values) WBC 4.9 (AUG 16) 6.2 (AUG 15) 7.3 (AUG 14) 9.6 (AUG 12) HB L 9.2 (AUG 16) L 9.5 (AUG 15) L 9.8 (AUG 14) L 10.7 (AUG 12) HCT L 29.9 (AUG 16) L 31.1 (AUG 15) L 31.7 (AUG 14) L 32.8 (AUG 12) Plt L 161 (AUG 16) 172 (AUG 15) L 161 (AUG 14) 186 (AUG 12) Na 140 (AUG 16) 138 (AUG 15) 139 (AUG 14) 136 (AUG 12) K 4.7 (AUG 16) 4.4 (AUG 15) 4.5 (AUG 14) 3.6 (AUG 12) Cl 106 (AUG 16) 102 (AUG 15) 102 (AUG 14) L 100 (AUG 12) CO2 32 (AUG 16) 29 (AUG 15) 32 (AUG 14) 31 (AUG 12) BUN H 29 (AUG 16) H 35 (AUG 15) 22 (AUG 14) 17 (AUG 12) Cr H 1.20 (AUG 16) H 1.80 (AUG 15) H 1.50 (AUG 14) H 1.20 (AUG 12) Glu R H 117 (AUG 16) H 113 (AUG 15) H 111 (AUG 14) H 115 (AUG 12) Ca 8.5 (AUG 16) L 8.2 (AUG 15) 8.5 (AUG 14) 8.5 (AUG 12) Lactic 1.0 (AUG 12) PT 9.7 (AUG 12) INR 0.9 (AUG 12) PTT 27.5 (MAR 12) AST 5 (AUG 18) 12 (AUG 14) ALT 17 (AUG 18) 19 (AUG 14) ALK P 55 (AUG 18) 65 (AUG 14) T Bili 0.2 (AUG 18) 0.2 (AUG 14) PTN L 6.2 (AUG 18) 7.2 (AUG 14) ALB L 2.5 (AUG 18) L 2.6 (AUG 14) A/P: 08/17: 1. Spoke to patient at bedside. Patient is not complaining of pain. Notes pain is well controlled. Patient did note some differences in her home medications and inpatient mediations. Discussed with patient the possible adjustments/ recommendations. Patient agreed to plan. 2. Initiate Clonazepam 0.5mg TID prn instead of BID. This change aligns with the patient's home dose of clonazepam. 3. Change oxycodone 5mg q4h from scheduled to prn. Patient is tolerating her pain and doesn't mind changing it to prn. 4. Increased APAP to q6h from TID to allow for max daily dose. 5. Rx will continue to follow patient status. 08/18: 1. S/w patient at bedside. Patient reports to be improved from yesterday and is hopeful she will get to go home in coming days. 2. Patient reports benefits from medication changes yesterday. No changes to regimen recommended at this time. 3. Rx will continue to follow. Thank you for this consult, Hany BaumannD, MPH PGY1 Sausage Machine Operator Pager: [phone] documented in this encounter Plan of Treatment Not on file documented as of this encounter Visit Diagnoses Not on filedocumented in this encounter
--- OUTSIDE RECORDS SUMMARY | 2024-12-07 00:23 | XMS_ITS | Encounter Summary ---
Author Organization [employer] ([place], [place], [place], [place]) Address [address] [place] [address] Care Team Providers Care Genetic Engineer Name Role Phone Unavailable Primary Care Provider Unavailabl e Encounter Details Date Type Department Care Team (Late st Contact Info) Description 08/16/2021 Transcribed Document [facility] [place] [place] Medicine [facility] [place] [address] ProviderMaría MD [address] [place] [address] Social History Tobacco Use Types [...] Conversion Note - Historical ProviderMD - 08/16/2021 4:38 PM CDT Pain Assessment Entered On: 08/17/2021 4:26 EDT Performed On: 08/17/2021 4:02 EDT by MARIANELA TOBAR RN Flex II Intervention Information: HYDROmorphone Performed by MARIANELA TOBAR RN Flex II on 08/17/2021 03:02:00 EDT HYDROmorphone,2mg Oral,Pain Pain Assessment Pain Assessment : Follow-up assessment Pain Scale Goal : 4 Pain Scale Used : 0-10 Scale MARIANELA TOBAR RN Flex II - 08/17/2021 4:25 EDT Pain Scale Intensity : 4 MARIANELA TOBAR RN Flex II - 08/17/2021 4:25 EDT Image 4 - Images currently included in the form version of this document have not been included in the text rendition version of the form. documented in this encounter Plan of Treatment Not on file documented as of this encounter Visit Diagnoses Not on filedocumented in this encounter
--- OUTSIDE RECORDS SUMMARY | 2024-12-07 00:23 | XMS_ITS | Encounter Summary ---
Author Organization [employer] ([place], [place], [place], [place]) Address [address] [place] [address] Care Team Providers Care Executive Secretary Name Role Phone Unavailable Primary Care Provider Unavailabl e Encounter Details Date Type Department Care Team (Late st Contact Info) Description 08/15/2021 Transcribed Document [facility] [place] [facility] [place] [address] ProviderMaría MD [address] [place] [address] Social History Tobacco Use Types [...] Conversion Note - Historical ProviderMD - 08/15/2021 9:10 AM CDT Patient: CARIN LUCERO Age: 46 years Sex: Female : 1975 Associated Diagnoses: None Author: Jacinto Baltazar, Resident Pharmacist Pharmacy Consult - Vancomycin HPI: 46 y/o F presenting to [facility] 2/2 abdominal pain w/ infxn around PEG tube site x 3 days. Per provider H&P: pt endorses burning sensation around site & noted redness. Recent hospital stay at [facility] - just discharged x 3 days prior to admission at [facility]. PMH significant for PEG tube placement, recent respiratory arrest w/ tracheostomy, IRLANDA, tobacco abuse, & morbid obesity among others. Pharmacy consulted to help manage vancomycin in setting of possible sepsis c/w morbid obesity & LEONEL. Consult: vancomycin Indication: sepsis Consulting Provider: Dr. Chong Goal: 12-18 mcg/mL ID on Board: no ABW: 138.6 kg - (BMI = 57.8) Allergies: metoclopramide Current Antimicrobials: vancomycin PTD - (08/14 - now) Zosyn 3.375 g IV q6h - (08/14 - now) Vitals Signs (last 24 hrs) Last Charted Minimum Maximum Temp H 99.9 (AUG 15 01:15) 98.9 (AUG 14 20:09) H 100.6 (AUG 14 18:55) Mon HR 106 (AUG 15 03:16) 106 (AUG 15 03:16) 124 (AUG 15 00:45) Periph HR 119 (AUG 14 18:55) 119 (AUG 14 18:55) 119 (AUG 14 18:55) Resp Rate 20 (AUG 15 03:16) 20 (AUG 14 18:55) H 22 (AUG 14 22:33) SBP H 147 (AUG 15 01:15) 130 (AUG 14 20:10) H 160 (AUG 14 18:55) DBP H 100 (AUG 15 01:15) 66 (AUG 14 23:32) H 107 (AUG 15 00:45) MAP 113 (AUG 15 01:15) 93 (AUG 14 20:10) 118 (AUG 15 00:45) SpO2 96 (AUG 15 08:58) L 93 (AUG 14 23:45) 96 (AUG 15 01:00) Labs (Last four charted values) WBC 9.6 (AUG 14) HB L 10.7 (AUG 14) HCT L 32.8 (AUG 14) Plt 186 (AUG 14) Na 136 (AUG 14) K 3.6 (AUG 14) Cl L 100 (AUG 14) CO2 31 (AUG 14) BUN 17 (AUG 14) Cr H 1.20 (AUG 14) Glu R H 115 (AUG 14) Ca 8.5 (AUG 14) Lactic 1.0 (AUG 14) PT 9.7 (AUG 14) INR 0.9 (AUG 14) PTT 27.5 (AUG 14) AST 12 (AUG 14) ALT 19 (AUG 14) ALK P 65 (AUG 14) T Bili 0.2 (AUG 14) PTN 7.2 (AUG 14) ALB L 2.6 (AUG 14) Est. CrCl: ~43 mL/min I/O: new admit Cultures/Microbiology: 08/14 Blood x2: pending Vancomycin Level(s): 08/16 trough @1000 = [ORDERED] - (vancomycin 2000 mg IV x1 + 1500 mg IV q24h (started ~13 hrs post LD)) A/P: 1.) Based upon pt's age, wt, & renal fxn - will give the following: - vancomycin 2000 mg (~ 14.4 mg/kg) IV x1 administered as LD in ED - will start vancomycin 1500 mg (~ 10.8 mg/kg) IV q24h as maintenance on 08/15 @1100 - will start maintenance dose ~13 hrs post LD to serve as indirect LD given morbid obesity - complex PK/PD given morbid obesity in setting of LEONEL - baseline Scr appears to be ~0.6-0.7 mg/dL 2.) Will check level prior to AM dose tomorrow (08/16). Hold for level >20 mcg/mL. 3.) Pt also receiving Zosyn. All meds adjusted appropriately based on renal function. 4.) Cultures pending. ID not following at this time. 5.) Pharmacy will continue to follow & monitor. Please reach out with any questions. Thank you, Jacinto Baltazar, PharmD PGY1 Functional Manager Pager: [phone], Ext. [phone] Electronically signed by Roman Eckert Conversion Garnett Machine Operator Helper Cerner at 09/18/2022 9:18 AM CDT documented in this encounter Plan of Treatment Not on file documented as of this encounter Visit Diagnoses Not on filedocumented in this encounter
--- OUTSIDE RECORDS SUMMARY | 2024-12-07 00:23 | XMS_ITS | Encounter Summary ---
Author Organization [employer] ([place], [place], [place], [place]) Address [address] [place] [address] Care Team Providers Care Street Openings Inspector Name Role Phone Unavailable Primary Care Provider Unavailabl e Encounter Details Date Type Department Care Team (Late st Contact Info) Description 08/16/2021 Transcribed Document [facility] [place] [facility] [place] [address] ProviderMaría MD [address] [place] [address] Social History Tobacco Use [...] Conversion Note - Historical ProviderMD - 08/16/2021 5:33 PM CDT On Going Discharge Planning Entered On: 08/16/2021 17:36 EDT Performed On: 08/16/2021 17:33 EDT by JEANNETTE MANCERA, Commercial Installer Care Management Progress Note Discharge Arrangements : Patient Post-Acute Information Patient Name: CARIN LUCERO Gender: Female : [birth year] Age: 46 Years No Post-Acute Placement(s) Listed No Post-Acute Service(s) Listed No [place] Referral(s) Listed Discharge Options Discussed with Patient : Acute rehabilitation, Home Health Barriers to Discharge Identified : Clinical Condition of Patient, Follow-Up appointments needed Patient Discharge Goal : Home health care Is the Patient Meeting Medical Necessity : Yes Did you Attend Multidisciplinary Rounds? : Yes JEANNETTE MANCERA Commercial Installer - 08/16/2021 17:33 EDT Narrative Progress Note Narrative Progress Note : HD 3/ELOS 3/RRS low - on room air, IVF (20ml/hr), Crea=1.5, HH=9.8/21.7, CT Abd/pelvis=Abnormal location of left gastrostomy tube with thickening of the adjacent anterior chest wall. This is likely due to inflammation. A discrete abscess is not identified; GI to remove PEG today, IV ABx=Dapto q24/Piperacillin q6 (ID following-per note plan to transition to PO at discharge) PT/OT following -will need re-eval orders due to procedure, pharmacy following for pain management - DCP: home with family support. JEANNETTE MANCERA Commercial Installer - 08/16/2021 17:33 EDT documented in this encounter Plan of Treatment Not on file documented as of this encounter Visit Diagnoses Not on filedocumented in this encounter
--- OUTSIDE RECORDS SUMMARY | 2024-12-07 00:23 | XMS_ITS | Encounter Summary ---
Author Organization [facility] ([place], [place], [place], [place]) Address [address] [place] [address] Care Team Providers Care Stacker Driver Name Role Phone Unavailable Primary Care Provider Unavailabl e Encounter Details Date Type Department Care Team (Late st Contact Info) Description 08/16/2021 Transcribed Document [facility] [place] [address] [place] [address] ProviderMaría MD [address] [place] [address] Social History Tobacco Use Types [...] Conversion Note - Historical ProviderMD - 08/16/2021 11:20 AM CDT [facility] PACU Summary Primary Physician: LEO DOMINGUEZ MD Finalized Date/Time: 08/16/21 12:29:38 Pt. Name: CARIN LUCERO/Sex: 1975 Female Med Rec #: [id number] Physician: EDUARD DE LOS SANTOS DO-INT Financial #: [id number] Pt. Type: I Room/Bed: [facility]/ Admit/Disch: 08/14/21 22:53:00 - Institution: [facility] PACU Case Times Entry 1 In PACU I 08/16/21 12:00:00 Ready for PACU 08/16/21 12:29:00 Discharge Discharge from PACU 08/16/21 12:20:00 I Last Modified By: NICOLA MCCLELLAN RN, Registered Nurse 08/16/21 12:29:35 Finalized By: NICOLA MCCLELLAN RN, Registered Nurse Document Signatures Signed By: NICOLA MCCLELLAN RN, Registered Nurse 08/16/21 12:29 documented in this encounter Plan of Treatment Not on file documented as of this encounter Visit Diagnoses Not on filedocumented in this encounter
--- OUTSIDE RECORDS SUMMARY | 2024-12-07 00:23 | XMS_ITS | Encounter Summary ---
Author Organization [employer] ([place], [place], [place], [place]) Address [address] [place] [address] Care Team Providers Care Seal Mixer Name Role Phone Unavailable Primary Care Provider Unavailabl e Encounter Details Date Type Department Care Team (Late st Contact Info) Description 08/16/2021 Transcribed Document [facility] [place] [facility] [place] [address] ProviderMaría MD [address] [place] [address] Social History Tobacco Use Types [...] Conversion Note - Historical ProviderMD - 08/16/2021 12:52 PM CDT UM Authorization Entered On: 08/16/2021 12:52 EDT Performed On: 08/16/2021 12:52 EDT by EBEN HURTADO, Enterprise Resource Planning Consultant Primary Insurance Authorization Authorization and Policy Numbers : Insurance 1 Health Plan: [facility] Policy Number: [id number] Authorization Number: Insurance Primary Name : [facility] Policy Number: [id number] Authorization Status-Primary : Admit approved Reference Number-Primary : [id number] Authorization Number-Primary : [id number] Number of Days Authorized-Primary : 4 Day(s) Authorized Service Begin Date-Primary : 08/14/2021 EST Authorized Service End Date-Primary : 08/18/2021 EDT Authorization Comments-Primary : inpt admit approved per fax from [facility] 08/16/21 auth# [id number] NRD 08-19-21 Historical Authorization Comments-Primary : Comment 1: Clinicals submitted on [facility] website for IP approval (ROBERTO CARLOS CISNEROS RN 08/15/2021 12:09) EBEN HURTADO, Enterprise Resource Planning Consultant - 08/16/2021 12:52 EDT Electronically signed by [facility] Conversion Strategy Specialist Cerner at 09/18/2022 8:57 AM CDT documented in this encounter Plan of Treatment Not on file documented as of this encounter Visit Diagnoses Not on filedocumented in this encounter
--- OUTSIDE RECORDS SUMMARY | 2024-12-07 00:23 | XMS_ITS | Encounter Summary ---
Author Organization [employer] ([place], [place], [place], [place]) Address [address] [place] [address] Care Team Providers Care Cable Engineer Outside Plant Name Role Phone Unavailable Primary Care Provider Unavailabl e Encounter Details Date Type Department Care Team (Late st Contact Info) Description 08/18/2021 Transcribed Document [facility] Radiology [address] [place] [address] Saleem Jimenes MD [address] [place] [id number] Social History Tobacco Use Types Packs/Day Years Used Date Smoking Tobacco: Never Assessed Comments Unknown Sex and Gender Information Value Date Recorded Sex Assigned at Female 11/30/2021 3:01 PM CDT Legal Sex Female 3:01 PM CDT Gender Identity Female 11/30/2021 3:01 PM CDT Sexual Orientation Not on file documented as of this encounter Miscellaneous Notes * Cerner Conversion Note - Saleem Jimenes MD - 08/18/2021 10:54 AM EDT Patient: CARIN LUCERO Age: 46 years Sex: Female : 1975 Associated Diagnoses: None Author: SALEEM JIMENES MD-INT Subjective Patient feeling better today. Nominal pain improving. Just anxious. Review of Systems Constitutional: Fatigue, No fever, No chills. Eye: Negative. Ear/Nose/Mouth/Throat: Negative. Respiratory: Negative. Cardiovascular: No chest pain. Gastrointestinal: No nausea, No vomiting, No diarrhea. Genitourinary: No dysuria. Hematology/Lymphatics: Negative. Endocrine: Negative. Immunologic: No recurrent fevers. Musculoskeletal: No back pain. Integumentary: No rash. Neurologic: Negative. Psychiatric: Negative. Health Status Allergies: Allergic Reactions (Selected) Unknown Metoclopramide- No reactions were documented., No qualifying data available Current medications: (Selected) Inpatient Medications Ordered DAPTOmycin + Sodium Chloride 0.9% intravenous solution 50 mL: 600 mg, 12 mL, 124 mL/Hr, IV Piggyback, [id number] Dulcolax Laxative: 5 mg, Oral, Daily, PRN: Constipation DuoNeb 0.5 mg-2.5 mg/3 mL inhalation solution: 3 mL, Nebulized Inhalation, RT_Q6H, PRN: Shortness of Breath Geodon: 40 mg, Oral, BID HYDROmorphone: 2 mg, Oral, Q4H, PRN: Breakthrough Pain Imitrex: 100 mg, Oral, Daily, PRN: Migraine Headache LaMICtal: 100 mg, Oral, Daily Lovenox: 40 mg, SubCutaneous, [id number] MiraLax: 17 Gram, Oral, Daily, PRN: Constipation Mucinex: 1,200 mg, Oral, BID Neurontin: 300 mg, Oral, TID Pepcid: 20 mg, Oral, Daily Phenergan: 6.25 mg, IntraVENous, Q6H, PRN: Nausea Viibryd: 40 mg, Oral, Daily Zofran: 4 mg, IV Push, Q4H, PRN: Nausea acetaminophen: 1,000 mg, Oral, Q6HInt carvedilol: 12.5 mg, Oral, BID clonazePAM: 0.5 mg, Oral, TID, PRN: Anxiety furosemide: 20 mg, Oral, Daily levothyroxine: 25 mcg, Oral, Daily lidocaine 1% injectable solution: 0.5 mL, IntraDermal, 1-Time, PRN: Other (See Comment) oxyCODONE: 5 mg, Oral, Q4H, PRN: Other (See Comment) piperacillin-tazobactam + Sodium Chloride 0.9% intravenous solution 50 mL: 3.375 Gram, 16.67 mL/Hr, IV Piggyback, Q6HInt Documented Medications Documented ProAir HFA 90 mcg/inh inhalation aerosol: 2 Puff, Inhalation, Q6H, PRN: Wheezing, 0 Refill(s) Pulmicort Respules 0.5 mg/2 mL inhalation suspension: 2 mL, Nebulized Inhalation, BID, 0 Refill(s) SUMAtriptan 100 mg oral tablet: 1 Tab, Oral, 1-Time, may repeat dose after 2 hours up to a maximum of 200 mg in 24 hours, PRN: as needed for migraine headache, 9 Tab, 0 Refill(s) Trelegy Ellipta 100 mcg-62.5 mcg-25 mcg/inh inhalation powder: 1 Puff, Inhalation, Daily, 0 Refill(s) Viibryd 40 mg oral tablet: 1 Tab, Oral, Daily, 90 Each, 0 Refill(s) acetaminophen-HYDROcodone 325 mg-5 mg oral tablet: 1 Tab, Oral, BID, PRN: Pain (Severe 7-10), 15 Tab, 0 Refill(s) albuterol 2.5 mg/3 mL (0.083%) inhalation solution: 3 mL, Inhalation, Q6H, PRN: wheezing, 60 Each, 0 Refill(s) clonazePAM 0.5 mg oral tablet: 1 Tab, Oral, TID, PRN: Anxiety, 0 Refill(s) furosemide 20 mg oral tablet: 1 Tab, Oral, Daily, 0 Refill(s) gabapentin 300 mg oral capsule: 1 Cap, Oral, TID, Replaces 800mg dose, 90 Cap, 0 Refill(s) hydrALAZINE 10 mg oral tablet: 1 Tab, Oral, Daily, 30 Each, 0 Refill(s) lamoTRIgine 100 mg oral tablet: 1 Tab, Oral, Daily, 30 Each, 0 Refill(s) levothyroxine 25 mcg (0.025 mg) oral tablet: 1 Tab, Oral, Daily, 30 Each, 0 Refill(s) omeprazole 40 mg oral delayed release capsule: 1 Cap, Oral, Daily, before a meal, 30 Cap, 0 Refill(s) ziprasidone 40 mg oral capsule: 1 Cap, Oral, BID, 180 Cap, 0 Refill(s), Medications (23) Active Scheduled: (13) acetaminophen 500 mg tab 1,000 mg 2 Tab, Oral, Q6HInt carvedilol 12.5 mg tab 12.5 mg 1 Tab, Oral, BID DAPTOmycin + NaCl 0.9% 50 mL 600 mg 12 mL, IV Piggyback, [id number] enoxaparin 40 mg/0.4 mL inj 40 mg 0.4 mL, SubCutaneous, [id number] famotidine 20 mg tab 20 mg 1 Tab, Oral, Daily furosemide 20 mg tab 20 mg 1 Tab, Oral, Daily gabapentin 300 mg cap 300 mg 1 Cap, Oral, TID guaiFENesin 600 mg ER tab 1,200 mg 2 Tab, Oral, BID lamoTRIgine 100 mg tab 100 mg 1 Tab, Oral, Daily levothyroxine 25 mcg tab 25 mcg 1 Tab, Oral, Daily piperacillin-tazobactam + NaCl 0.9% 50 mL 3.375 Gram, IV Piggyback, Q6HInt vilazodone 10 mg tab 40 mg 4 Tab, Oral, Daily ziprasidone 20 mg cap 40 mg 2 Cap, Oral, BID Continuous: (0) PRN: (10) albuterol-ipratropium inh 3 mL 3 mL, Nebulized Inhalation, RT_Q6H bisacodyl EC 5 mg tab 5 mg 1 Tab, Oral, Daily clonazePAM 0.5 mg tab 0.5 mg 1 Tab, Oral, TID HYDROmorphone 2 mg tab 2 mg 1 Tab, Oral, Q4H lidocaine 1% *PF* inj 30 mL 0.5 mL, IntraDermal, 1-Time ondansetron 4 mg/2 mL inj 4 mg 2 mL, IV Push, Q4H oxyCODONE 5 mg tab 5 mg 1 Tab, Oral, Q4H polyethylene glycol 3350 pwd 17 g pkt 17 Gram 1 Packet, Oral, Daily promethazine 25 mg/1 mL inj 6.25 mg 0.25 mL, IntraVENous, Q6H SUMAtriptan 25 mg tab 100 mg 4 Tab, Oral, Daily Problem list: Medical History of obstructive sleep apnea / IMO [id number] / Confirmed Suicide risk / IMO [id number] / Confirmed, Active Problems (2) History of obstructive sleep apnea Suicide risk Objective VS/Measurements Vitals Signs (last 24 hrs) Last Charted Minimum Maximum Temp 97.8 (AUG 18 05:28) 97.8 (AUG 18 05:28) 98.3 (AUG 17 14:17) Mon HR 89 (AUG 18 05:28) 89 (AUG 18 01:23) 104 (AUG 17:) Resp Rate 18 (AUG 18:) 17 (AUG 18) 19 (AUG 17:) SBP 127 (AUG 18) 108 (AUG 18) H 150 (AUG 17:) DBP 79 (AUG 18:) 67 (AUG 18) H 96 (AUG 17:) MAP 93 (AUG 18) 80 (AUG 18) 113 (AUG 17:) SpO2 99 (AUG 18:) L 91 (AUG 17:) 99 (AUG 18:) General: Alert and oriented, No acute distress, Morbid obese. Eye: Pupils are equal, round and reactive to light, Extraocular movements are intact. HENT: Normocephalic, No pharyngeal erythema. Neck: Supple, Tracheostomy tube in place. Respiratory: poor air entry b/l. . Cardiovascular: Normal rate, Regular rhythm. Gastrointestinal: Soft, Dressing at PEG tube place. Musculoskeletal: Normal range of motion, No tenderness. Integumentary: Warm, No rash. Neurologic: Alert, Oriented, No focal deficits. Psychiatric: Mood and affect: Anxious, Angry. Behavior: Agitated. Review / Management AUG 18 04:11 140 106 H 29 / H 117 4.7 32 H 1.20 \ AUG 18 04:11 \ L 9.2 / 4.9 L 161 / L 29.9 \ Radiology Results (Last 48 hours) [id number] -- 08/14/2021 22:53 CR Chest 1 Vw Portable (08/17/2021 09:40) Result: PORTABLE CHEST;HISTORY: Dyspnea.COMPARISON: August 14, 2021.FINDINGS: The heart is stable in size. The lung lira demonstrate nosignificant change in the bibasilar atelectasis. There is nopneumothorax. The support devices are in good position.IMPRESSION: There has been no significant interval change.Continued followup is recommended.Images reviewed, interpreted, and dictated by Dr. Catina Jansen.Transcribed by Lainey London PA-C.I have personally viewed, interpreted and dictated the examination. Ihave read and agree with the above final transcribed report. Results review: Labs (Last four charted values) WBC 4.9 [...] PT 9.7 (AUG 12) INR 0.9 (AUG 14) PTT 27.5 (AUG 12) AST 5 (AUG 16) 12 (AUG 12) ALT 17 (AUG 16) 19 (AUG 12) ALK P 55 (AUG 16) 65 (AUG 12) T Bili 0.2 (AUG 16) 0.2 (AUG 12) PTN L 6.2 (AUG 16) 7.2 (AUG 12) ALB L 2.5 (AUG 16) L 2.6 (AUG 12) . Medication Changes from Previous Midnight to Current New Medications: acetaminophen 1,000 mg, Oral, Tab, Q6HInt, Start 08/17/21 16:00:00 EDT SALEEM JIMENES MD-INT clonazePAM 0.5 mg, Oral, Tab, TID, PRN for Anxiety, Start 08/17/21 12:27:00 EDT SALEEM JIMENES MD-INT furosemide 20 mg, Oral, Tab, Daily, Routine, Start 08/18/21 10:23:00 EDT, 08/18/21 10:23:00 EDT SALEEM JIMENES MD-INT guaiFENesin (Mucinex) 1,200 mg, Oral, ER Tab, BID, Routine, Start 08/18/21 9:47:00 EDT, 08/18/21 9:47:00 EDT SALEEM JIMENES MD-INT HYDROmorphone 2 mg, Oral, Tab, Q4H, PRN for Breakthrough Pain, Start 08/17/21 12:28:00 EDT SALEEM JIMENES MD-INT oxyCODONE 5 mg, Oral, Tab, Q4H, PRN for Other (See Comment), Start 08/17/21 12:31:00 EDT SALEEM JIMENES MD-INT Discontinued Medications: acetaminophen 1,000 mg, Oral, Tab, TID, Start 08/16/21 15:00:00 EDT SALEEM JIMENES MD-INT clonazePAM 0.5 mg, Oral, Tab, BID, Start 08/16/21 15:00:00 EDT SALEEM JIMENES MD-INT HYDROmorphone 2 mg, Oral, Tab, Q4H, PRN for Pain, Start 08/16/21 16:38:00 EDT SALEEM JIMENES MD-INT Lactated Ringers Injection intravenous solution 1,000 mL 1,000 mL, Bag Volume (mL) = 1,000, IntraVENous, Rate = 20 mL/Hr, start date 08/16/21 11:33:00 EDT, Routine, 2.44, m2 SALEEM JIMENES MD-INT oxyCODONE 5 mg, Oral, Tab, Q4H, Start 08/16/21 17:00:00 EDT KREDAN, SALEEM M, MD-INT Sodium Chloride 0.9% intravenous solution 1,000 mL 1,000 mL, Bag Volume (mL) = 1,000, IntraVENous, Rate = 50 mL/Hr, start date 08/14/21 23:49:00 EST, Routine, 2.44, m2 SALEEM JIMENES MD-INT Impression and Plan Anterior abdominal wall cellulitis possible abscess at the site of PEG tube CT scan abdomen and pelvis from outside facility noted. No evidence of a loculated abscess Follow-up cultures. Wound cultures multiple growth Continue broad-spectrum IV antibiotics. Pain control. GI consulted. PEG tube removed 08/16/2021 Advance diet as tolerated ID consulted Trichomonas vaginalis. Urine analysis noted Start Flagyl Acute renal failure pain Likely due to volume depletion. Gentle hydration. Creatinine 1.2----> 1.8---> 1.2 Avoid nephrotoxic medications. Including Lasix Monitor kidney function closely. Recent acute on chronic hypoxic/hypercapnic respiratory failure possible respiratory arrest. History of severe obstructive sleep apnea Status post tracheostomy and PEG tube placement Continue oxygen to keep sats more than 92%. Chest x-ray pending Severe depression and anxiety. Possible mood disorder. Resume all home medications. Hypothyroidism Resume Synthroid Morbid obesity. Complicating all aspects of care GI and DVT prophylaxis. CODE STATUS Full code Disposition. Cellulitis at the site PEG tube. PEG tube removed 08/16/2021. Pending cultures.. GI and ID consulted. Discharge date likely 08/19/2021 documented in this encounter Plan of Treatment Not on file documented as of this encounter Visit Diagnoses Not on filedocumented in this encounter
--- OUTSIDE RECORDS SUMMARY | 2024-12-07 00:23 | XMS_ITS | Encounter Summary ---
Author Organization [employer] ([place], [place], [place], [place]) Address [address] [place] [address] Care Team Providers Care Tank Builder And Erector Name Role Phone Unavailable Primary Care Provider Unavailabl e Encounter Details Date Type Department Care Team (Late st Contact Info) Description 08/18/2021 Transcribed Document [facility] [place] [facility] [place] [address] ProviderMaría MD [address] [place] [address] Social History Tobacco Use Types [...] Conversion Note - Historical ProviderMD - 08/18/2021 9:03 AM CDT Patient: CARIN LUCERO Age: 46 years Sex: Female : 1975 Associated Diagnoses: None Author: ERIKA GRANADO MD-INF Basic Information CC: Abdominal wall cellulitis, PEG tube infection History of Present Illness 46 yo female with h/o IRLANDA, morbid obesity, tobacco abuse, COVID-19 pneumonia, and recent respiratory arrest at [facility] requiring tracheostomy/PEG about a month ago with transfer to [facility]. She was discharged on 08/11. She has been tolerating oral intake and was scheduled to have PEG removed next week. She began having pain around the PEG tube site around 3 days ago with the area becoming more red with burning sensation prompting her to come to [facility] ED on 08/14/21. She denies fever, chills, [...] and piperacillin tazobactam, duration to be determined. 08/17/2021 history reviewed. PEG removed on 08/16, may not have been in the stomach and may have been in the peritoneal cavity. Low-grade fever resolved. Tolerating daptomycin and piperacillin tazobactam which may be changed to an oral antibiotics soon. 08/18/2021 history reviewed. No fever. PEG removed 08/16. Being treated for peritonitis and trach and PEG site cellulitis. Tolerating piperacillin tazobactam and daptomycin, duration to be determined. Review of Systems Constitutional: Weakness, No fever, No chills, No sweats. Eye Ear/Nose/Mouth/Throat Respiratory: No shortness of breath, No cough, No sputum production, No hemoptysis. Cardiovascular: No palpitations, No bradycardia. Gastrointestinal: No nausea, No vomiting, No diarrhea Abdominal pain: The pain is mild, Characterized as. Genitourinary: No dysuria, No hematuria, No change in urine stream. Hematology/Lymphatics Endocrine Immunologic Musculoskeletal: No back pain, No neck pain, No joint pain, No muscle pain, No claudication, No decreased range of motion. Integumentary: No rash, No abrasions. Neurologic: No confusion, No headache. Psychiatric: No anxiety, No depression. Health Status Current medications: Medications by Classification Antimicrobials piperacillin-tazobactam + Sodium Chloride 0.9% intravenous s - 3.375 Gram, IV Piggyback, Inj, Q6HInt, infuse over 3 Hour(s) DAPTOmycin + Sodium Chloride 0.9% intravenous solution 50 mL - 600 mg, IV Piggyback, Inj, [id number], infuse over 30 Minute(s), Routine Anticoagulant enoxaparin (Lovenox) - 40 mg, SubCutaneous, Inj, [id number], Routine Cardiovascular carvedilol - 12.5 mg, Oral, Tab, BID lidocaine (lidocaine 1% injectable solution) - 0.5 mL, IntraDermal, Inj, 1-Time, PRN for Other (See Comment), Routine *Duplicate* Respiratory albuterol-ipratropium (DuoNeb 0.5 mg-2.5 mg/3 mL inhalation - 3 mL, Nebulized Inhalation, Inh, RT_Q6H, PRN for Shortness of Breath, Routine promethazine (Phenergan) - 6.25 mg, IntraVENous, Inj, Q6H, PRN for Nausea, Routine GI ondansetron (Zofran) - 4 mg, IV Push, Inj, Q4H, PRN for Nausea, Routine famotidine (Pepcid) - 20 mg, Oral, Tab, Daily bisacodyl (Dulcolax Laxative) - 5 mg, Oral, EC Tab, Daily, PRN for Constipation, Routine polyethylene glycol 3350 (MiraLax) - 17 Gram, Oral, Powder, Daily, PRN for Constipation, Routine Endocrine levothyroxine - 25 mcg, Oral, Tab, Daily Neuro gabapentin (Neurontin) - 300 mg, Oral, Cap, TID lamoTRIgine (LaMICtal) - 100 mg, Oral, Tab, Daily SUMAtriptan (Imitrex) - 100 mg, Oral, Tab, Daily, PRN for Migraine Headache Psych vilazodone (Viibryd) - 40 mg, Oral, Tab, Daily ziprasidone (Geodon) - 40 mg, Oral, Cap, BID Pain Meds HYDROmorphone - 2 mg, Oral, Tab, Q4H, PRN for Breakthrough Pain oxyCODONE - 5 mg, Oral, Tab, Q4H, PRN for Other (See Comment) acetaminophen - 1,000 mg, Oral, Tab, Q6HInt Sedatives clonazePAM - 0.5 mg, Oral, Tab, TID, PRN for Anxiety Other lidocaine (lidocaine 1% injectable solution) - 0.5 mL, IntraDermal, Inj, 1-Time, PRN for Other (See Comment), Routine *Duplicate* Undefined Medications lidocaine (lidocaine 1% injectable solution) - 0.5 mL, IntraDermal, Inj, 1-Time, PRN for Other (See Comment), Routine Physical Examination VS/Measurements Vitals Signs (last 24 hrs) Last Charted Minimum Maximum Temp 97.8 (AUG 18:) 97.8 (AUG 18) 98.3 (AUG 17 14:17) Mon HR 89 (AUG 18:) 89 (AUG 18:) 104 (AUG 17:) Resp Rate 18 (AUG 18:) 17 (AUG 18:) 19 (AUG 17:) SBP 127 (AUG 18:) 108 (AUG 18:) H 150 (AUG 17:) DBP 79 (AUG 18:) 67 (AUG 18:) H 96 (AUG 17:) MAP 93 (AUG 18:) 80 (AUG 18:) 113 (AUG 17:) SpO2 98 (AUG 18:) L 91 (AUG 17:) 98 (AUG 18:) General: Alert and oriented, Mild distress. Eye: Extraocular movements are intact, Normal conjunctiva. HENT: Normocephalic, Oral mucosa is moist. Neck: Supple, Non-tender, No jugular venous distention, No lymphadenopathy. Respiratory: Lungs are clear to auscultation, Respirations are non-labored, Breath sounds are equal. Cardiovascular: Normal rate, No gallop, Normal peripheral perfusion. Gastrointestinal: Soft, Non-tender, Non-distended, Normal bowel sounds, No organomegaly. Musculoskeletal: Normal range of motion, Normal strength, No tenderness, No deformity. Integumentary: Warm, Dry, [place], No pallor, No rash, PEG tube site with minimal induration, no purulent drainage, no foul smell, minimal erythema [...] 12) INR 0.9 (AUG 12) PTT 27.5 (AUG 12) AST 5 (AUG 16) 12 (AUG 12) ALT 17 (AUG 16) 19 (AUG 12) ALK P 55 (MAR 16) 65 (AUG 14) T Bili 0.2 (AUG 18) 0.2 (AUG 14) PTN L 6.2 (AUG 18) 7.2 (AUG 14) ALB L 2.5 (AUG 18) L 2.6 (AUG 14) , ACC: [id number] ORDER: Culture Wound and Stain DATE: 08/15/2021 13:10 SOURCE: Drainage SITE: Trachea Reports Final 08/18/2021 08:18 Moderate Growth Coagulase Negative Staphylococcus Moderate Growth Coagulase Negative Staphylococcus #2 Heavy Growth Corynebacterium species Heavy Growth Corynebacterium species #2 Mixed growth suggestive of colonization or indigenous derrell Implies skin derrell. No significant pathogen. Pre 08/17/2021 09:53 Moderate Growth Coagulase Negative Staphylococcus Moderate Growth Coagulase Negative Staphylococcus #2 Pre 08/16/2021 06:24 Culture in progress 08/15/2021 20:07 No cells seen No organisms seen. == ACC: [id number] ORDER: Culture Wound and Stain DATE: 08/15/2021 13:01 SOURCE: Surgical Swab SITE: Abdomen Reports Final 08/18/2021 08:13 Moderate Growth Staphylococcus epidermidis Moderate Growth Enterococcus faecalis Light Growth Corynebacterium species No further identification No susceptibility performed Pre 08/17/2021 10:23 Moderate Growth Coagulase Negative Staphylococcus Moderate Growth Enterococcus species Pre 08/17/2021 09:46 Moderate Growth Coagulase Negative Staphylococcus Moderate Growth Gamma Hemolytic Streptococcus Pre 08/16/2021 06:23 Culture in progress 08/15/2021 14:15 No organisms seen. Few White Blood Cells == [facility]: [id number] ORDER: Culture Blood DATE: 08/14/2021 19:11 SOURCE: Blood SITE: Reports Pre 08/17/2021 23:01 No growth at 3 days. Pre 08/16/2021 23:01 No growth at 2 days. Pre 08/15/2021 23:01 No growth at 1 day. Pre 08/15/2021 16:01 Culture less than 24 Hrs old == ACC: [id number] ORDER: Culture Blood DATE: 08/14/2021 19:11 SOURCE: Blood SITE: Reports Pre 08/17/2021 23:01 No growth at 3 days. Pre 08/16/2021 23:01 No growth at 2 days. Pre 08/15/2021 23:01 No growth at 1 day. Pre 08/15/2021 16:01 Culture less than 24 Hrs old == . Chest x-ray results Radiology Results (Last 48 hours) [id number] -- 08/14/2021 22:53 CR Chest 1 Vw [...] personally viewed, interpreted and dictated the examination. Rocio read and agree with the above final transcribed report. Impression and Plan 1. Acute abdominal wall cellulitis with possible PEG site infection. Usual orgs are staph or strep. Culture with Staph epidermidis and Enterococcus, Staphylococcus sensitive to doxycycline, Enterococcus sensitive to amoxicillin. No obvious abscess by CT scan 08/14/2021. May have had low-grade peritonitis because of PEG placement. 2. Possible tracheostomy site infection. Check culture. Purulent discharge. Staphylococcus epidermidis and corynebacterium. 3. Acute renal insufficiency with recent Acute renal failure at OSH. Would avoid nephrotoxic agents. Improved. 4. Fever, related to above. Resolved. 5. Recent acute respiratory arrest requiring mechanical [...] trach collar 08/15/2021. 14. Anemia, chronic disease, slightly worse. 15. Thrombocytopenia, worse, probably related to medications. 16. Acute kidney injury, worse. Probably related to medications and other. Vancomycin stopped. 17. Hypocalcemia. Resolved. Plan: 1. Diagnostically, blood and PEG site wound cultures, physical examination, imaging, CBC, CMP, CRP. 2. Therapeutically, continue Zosyn and daptomycin until 08/19 then consider change to oral doxycycline 100 mg p.o. twice daily, and Augmentin 500 mg p.o. twice daily to continue until 08/24. 3. PEG tube removal by GI on 08/16 revealed may not have been in the stomach so at increased risk for peritonitis. 4. Continue wound care. 5. Obtain records from [facility] and [facility] and place on chart. 6. Continue oxygen support as needed. Plan has been discussed with patient including side effects of medications and line. At increased risk for side effects of abx and line, and readmission. Discussed in detail with nursing, and the patient's mother. Follow-up can be arranged for primary care. Electronically signed by Roman Eckert Conversion Certified Personal Finance Counselor Cerner at 09/18/2022 9:00 AM CDT documented in this encounter Plan of Treatment Not on file documented as of this encounter Visit Diagnoses Not on filedocumented in this encounter
--- OUTSIDE RECORDS SUMMARY | 2024-12-07 00:23 | XMS_ITS | Encounter Summary ---
Author Organization [employer] ([place], [place], [place], [place]) Address [address] [place] [address] Care Team Providers Care Engineering Analyst Name Role Phone Unavailable Primary Care Provider Unavailabl e Encounter Details Date Type Department Care Team (Late st Contact Info) Description 08/15/2021 Transcribed Document [facility] Radiology [address] [place] [address] Saleem Jimenes MD [address] [place] [id number] Social History Tobacco Use Types Packs/Day [...] Conversion Note - Saleem Jimenes MD - 08/15/2021 12:40 PM EDT Patient: CARIN LUCERO Age: 46 years Sex: Female : 1975 Associated Diagnoses: None Author: SALEEM JIMENES MD-INT Subjective Very anxious and directable. Complaining of abdominal pain at the site of PEG tube intensity 7/10. Spiking low-grade fever with T-max 100.6. Review of Systems Constitutional: Fatigue, No fever, [...] available Current medications: (Selected) Inpatient Medications Ordered Dulcolax Laxative: 5 mg, Oral, Daily, PRN: Constipation DuoNeb 0.5 mg-2.5 mg/3 mL inhalation solution: 3 mL, Nebulized Inhalation, RT_Q6H, PRN: Shortness of Breath MiraLax: 17 Gram, Oral, Daily, PRN: Constipation Pepcid: 20 mg, IV Push, Daily Phenergan: 6.25 mg, IntraVENous, Q6H, PRN: Nausea Roxicodone: 5 mg, Oral, Q4H, PRN: Pain (Moderate 4-6) Sodium Chloride 0.9% intravenous solution 1,000 mL: 50 mL/Hr, IntraVENous Tylenol: 650 mg, Oral, Q4H, PRN: Fever Tylenol: 650 mg, Oral, Q4H, PRN: Pain (Mild 1-3) Zofran: 4 mg, IV Push, Q4H, PRN: Nausea gabapentin: 800 mg, Oral, TID piperacillin-tazobactam + Sodium Chloride 0.9% intravenous solution 50 mL: 3.375 Gram, 16.67 mL/Hr, IV Piggyback, Q6HInt traZODone: 100 mg, Oral, TID vancomycin + Sodium Chloride 0.9% intravenous solution 250 mL: 1,500 mg, 250 mL/Hr, IV Piggyback, [id number] Incomplete Depakote ER 500 mg oral tablet, extended release: 1 Tab, Oral, Daily SUMAtriptan 100 mg oral tablet: 100 mg, Oral, Daily Viibryd 40 mg oral tablet: 40 mg, Oral, Daily Wellbutrin XL 300 mg/24 hours oral tablet, extended release: 1 Tab, Oral, [id number] clonazePAM 0.5 mg oral tablet: 0.5 Tab, Oral, Daily hydrALAZINE 10 mg oral tablet: 10 mg, Oral, TID lamoTRIgine 100 mg oral tablet: 100 mg, Oral, Daily levothyroxine 25 mcg (0.025 mg) oral tablet: 1 Tab, Oral, Daily lisinopril 10 mg oral tablet: 1 Tab, Oral, Daily ziprasidone 40 mg oral capsule: 40 mg, Oral, Daily Prescriptions Prescribed Bentyl 20 mg oral tablet: 1 Tab, Oral, QID, for 7 Day(s), 28 Tab, 0 Refill(s) Zofran ODT 4 mg oral tablet, disintegratin Tab, Oral, TID, 10 Tab, 0 Refill(s) Documented Medications Documented Bactrim DS 800 mg-160 mg oral tablet: 1 Tab, Oral, BID, for 10 Day(s), 20 Tab, 0 Refill(s) Depakote ER 500 mg oral tablet, extended release: Tab, Oral, Daily, 0 Refill(s) Macrobid 100 mg oral capsule: 1 Cap, Oral, BID, for 10 Day(s), 20 Cap, 0 Refill(s) SUMAtriptan 100 mg oral tablet: 6 Each, 0 Refill(s) Viibryd 40 mg oral tablet: 90 Each, 0 Refill(s) Wellbutrin XL 300 mg/24 hours oral tablet, extended release: Tab, Oral, [id number], 0 Refill(s) acetaminophen-HYDROcodone 325 mg-5 mg oral tablet: 6 Each, 0 Refill(s) ciprofloxacin 500 mg oral tablet: 7 Each, 0 Refill(s) clonazePAM 0.5 mg oral tablet: 9 Each, 0 Refill(s) fluconazole 150 mg oral tablet: 3 Tab, 0 Refill(s) furosemide 20 mg oral tablet: 14 Each, 0 Refill(s) gabapentin 300 mg oral capsule: 27 Each, 0 Refill(s) gabapentin 800 mg oral tablet: 1 Tab, Oral, TID, 270 Tab, 0 Refill(s) hydrALAZINE 10 mg oral tablet: 30 Each, 0 Refill(s) lamoTRIgine 100 mg oral tablet: 30 Each, 0 Refill(s) levothyroxine 25 mcg (0.025 mg) oral tablet: 30 Each, 0 Refill(s) lisinopril 10 mg oral tablet: 30 Tab, 0 Refill(s) ondansetron 4 mg oral tablet, disintegrating: Tab, Oral, TID, 0 Refill(s) traZODone 100 mg oral tablet: 1 Tab, Oral, TID, 270 Tab, 0 Refill(s) ziprasidone 40 mg oral capsule: 6 Each, 0 Refill(s), Medications (14) Active Scheduled: (5) famotidine 20 mg/2 mL inj 20 mg 2 mL, IV Push, Daily gabapentin 800 mg, Oral, TID piperacillin-tazobactam + NaCl 0.9% 50 mL 3.375 Gram, IV Piggyback, Q6HInt traZODONE 100 mg tab 100 mg 1 Tab, Oral, TID vancomycin + NaCl 0.9% 250 mL 1,500 mg, IV Piggyback, [id number] Continuous: (1) NaCl 0.9% 1,000 mL 1,000 mL, IntraVENous, 50 mL/Hr PRN: (8) acetaminophen 325 mg tab 650 mg 2 Tab, Oral, Q4H acetaminophen 325 mg tab 650 mg 2 Tab, Oral, Q4H albuterol-ipratropium inh 3 mL 3 mL, Nebulized Inhalation, RT_Q6H bisacodyl EC 5 mg tab 5 mg 1 Tab, Oral, Daily ondansetron 4 mg/2 mL inj 4 mg 2 mL, IV Push, Q4H oxyCODONE 5 mg tab 5 mg 1 Tab, Oral, Q4H polyethylene glycol 3350 pwd 17 g pkt 17 Gram 1 Packet, Oral, Daily promethazine 25 mg/1 mL inj 6.25 mg 0.25 mL, IntraVENous, Q6H Problem list: Medical History of obstructive sleep apnea / IMO [id number] / Confirmed Suicide risk / IMO 45162 / Confirmed, Active Problems (2) History of obstructive sleep apnea Suicide risk Objective VS/Measurements Vitals Signs (last 24 hrs) Last Charted Minimum Maximum Temp 98.3 (AUG 15 11:13) 98.3 (AUG 15 11:13) H 100.6 (AUG 14 18:55) Mon HR 97 (AUG 15 11:) 97 (AUG 15 11:) 124 (AUG 15 00:45) Periph HR 119 (AUG 14 18:55) 119 (AUG 14 18:55) 119 (AUG 14 18:55) Resp Rate 18 (AUG 15 11:) 18 (AUG 15 11:13) H 22 (AUG 14 22:33) SBP H 152 (AUG 15 11:13) 130 (AUG 14 20:10) H 160 (AUG 14 18:55) DBP H 102 (AUG 15 11:13) 66 (AUG 14 23:32) H 107 (AUG 15 00:45) MAP 127 (AUG 15 11:13) 93 (AUG 14 20:10) 127 (AUG 15 11:13) SpO2 96 (AUG 15 11:13) L 93 (AUG 14 23:45) 96 (AUG 15 01:00) General: Alert and oriented, Mild distress, Morbid obese. Eye: Pupils are equal, round and reactive to light, Extraocular movements are intact. HENT: Normocephalic, No pharyngeal erythema. Neck: Supple, Tracheostomy tube in place. Respiratory: poor air entry b/l. . Cardiovascular: Normal rate, Regular rhythm. Gastrointestinal: Soft, PEG tube in place, Yellowish wheezing at the site of PEG tube. Musculoskeletal: Normal range of motion, No tenderness. Integumentary: Warm, No rash. Neurologic: Alert, Oriented, No focal deficits. Psychiatric: Mood and affect: Anxious, Angry. Behavior: Agitated. Review / Management AUG 14 20:15 136 L 100 17 / H 115 3.6 31 H 1.20 \ AUG 14 20:15 \ L 10.7 / 9.6 186 / L 32.8 \ Radiology Results (Last 48 hours) [id number] -- 08/14/2021 22:53 CR Chest 1 Vw [...] to inflammation.A discrete abscess is not identified. Results review: Labs (Last four charted values) WBC 9.6 [...] (AUG 14) ALB L 2.6 (AUG 14) . Medication Changes from Previous Midnight to Current New Medications: acetaminophen (Tylenol) 650 mg, Oral, Tab, Q4H, PRN for Pain (Mild 1-3), Routine, Start 08/14/21 23:49:00 EST, 08/14/21 23:49:00 EST EDUARD DE LOS SANTOS DO-INT acetaminophen (Tylenol) 650 mg, Oral, Tab, Q4H, PRN for Fever, Routine, Start 08/14/21 23:49:00 EST, 08/14/21 23:49:00 EST EDUARD DE LOS SANTOS DO-INT albuterol-ipratropium (DuoNeb 0.5 mg-2.5 mg/3 mL inhalation solution) 3 mL, Nebulized Inhalation, Inh, RT_Q6H, PRN for Shortness of Breath, Routine, Start 08/14/21 23:49:00 EST EDUARD DE LOS SANTOS DO-INT bisacodyl (Dulcolax Laxative) 5 mg, Oral, EC Tab, Daily, PRN for Constipation, Routine, Start 08/14/21 23:49:00 EST, 08/14/21 23:49:00 EST EDUARD DE LOS SANTOS DO-INT famotidine (Pepcid) 20 mg, IV Push, Inj, Daily, Routine, Start 08/15/21 9:00:00 EDT, 08/14/21 23:49:00 EST EDUARD DE LOS SANTOS DO-INT gabapentin 800 mg, Oral, Tab, TID, Routine, Start 08/15/21 15:00:00 EDT, 08/15/21 12:03:00 EDT SALEEM JIMENES MD-INT ondansetron (Zofran) 4 mg, IV Push, Inj, Q4H, PRN for Nausea, Routine, Start 08/14/21 23:49:00 EST, 08/14/21 23:49:00 EST EDUARD DE LOS SANTOS DO-INT oxyCODONE (Roxicodone) 5 mg, Oral, Tab, Q4H, PRN for Pain (Moderate 4-6), Routine, Start 08/14/21 23:49:00 EST, 08/14/21 23:49:00 EST EDUARD DE LOS SANTOS DO-INT piperacillin-tazobactam + Sodium Chloride 0.9% intravenous solution 50 mL 3.375 Gram, IV Piggyback, Inj, Q6HInt, infuse over 3 Hour(s), Start 08/15/21 12:00:00 EDT, 16.67 mL/Hr, Indication: Sepsis TONJA MARIN MD-EMR polyethylene glycol 3350 (MiraLax) 17 Gram, Oral, Powder, Daily, PRN for Constipation, Routine, Start 08/14/21 23:49:00 EST DE LOS SANTOS, EDUARD, DO-INT promethazine (Phenergan) 6.25 mg, IntraVENous, Inj, Q6H, PRN for Nausea, Routine, Start 08/14/21 23:49:00 EST, 08/14/21 23:49:00 EST EDUARD DE LOS SANTOS DO-INT Sodium Chloride 0.9% intravenous solution 1,000 mL 1,000 mL, Bag Volume (mL) = 1,000, IntraVENous, Rate = 50 mL/Hr, start date 08/14/21 23:49:00 EST, Routine, 2.44, m2 EDUARD DE LOS SANTOS DO-INT traZODone 100 mg, Oral, Tab, TID, Routine, Start 08/15/21 15:00:00 EDT, 08/15/21 12:03:00 EDT SALEEM JIMENES MD-INT vancomycin + Sodium Chloride 0.9% intravenous solution 250 mL 1,500 mg, IV Piggyback, Inj, [id number], infuse over 60 Minute(s), Start 08/15/21 11:00:00 EDT, 250 mL/Hr, Indication: Sepsis EDUARD DE LOS SANTOS DO-INT Discontinued Medications: melatonin 5 mg, Oral, Tab, At Bedtime, PRN for Insomnia, Routine, Start 08/14/21 23:49:00 EST, 08/14/21 23:49:00 EST SALEEM JIMENES MD-INT morphine 1 mg, IV Push, Inj, Q4H, PRN for Pain (Severe 7-10), Routine, Start 08/14/21 23:49:00 EST, 08/14/21 23:49:00 EST SALEEM JIMENES MD-INT piperacillin-tazobactam + Sodium Chloride 0.9% intravenous solution 50 mL 3.375 Gram, IV Piggyback, Inj, Q6HInt, infuse over 3 Hour(s), Start 08/15/21 3:00:00 EDT, 16.67 mL/Hr, Indication: Sepsis TONJA MARIN MD-EMR vancomycin 1 Each, MISC, IV Piggyback, Weekly, 08/15/21 9:00:00 EDT TONJA MARIN MD-EMR Impression and Plan Anterior abdominal wall cellulitis possible abscess at the site of PEG tube CT scan abdomen and pelvis from outside facility noted. No evidence of a loculated abscess Follow-up cultures. Start broad-spectrum IV antibiotics. Pain control. GI consulted. Possible PEG tube extraction in a.m. N.p.o. after midnight. ID consult. In a.m. Acute renal failure pain Likely due to volume depletion. Gentle hydration. Avoid nephrotoxic medications. Monitor kidney function closely. Recent acute on chronic hypoxic/hypercapnic respiratory failure possible respiratory arrest. History of severe obstructive sleep apnea Status post tracheostomy and PEG tube placement Continue oxygen to keep sats more than 92%. Severe depression and anxiety. Possible mood disorder. Resume all home medications. Hypothyroidism Resume Synthroid Morbid obesity. Complicating all aspects of care GI and DVT prophylaxis. CODE STATUS Full code Disposition. Cellulitis at the site PEG tube. Likely needs PEG tube extraction in a.m. GI and ID consulted. Discharge date unable to determine documented in this encounter Plan of Treatment Not on file documented as of this encounter Visit Diagnoses Not on filedocumented in this encounter
--- OUTSIDE RECORDS SUMMARY | 2024-12-07 00:23 | XMS_ITS | Clinical Summary ---
Author Organization [facility] Address [address] [place] [address] Phone Care Team Providers Care Office Machine Mechanic Name Role Phone Unavailable Unavailable Conditions or Problems No information available. Medications No information available. Medications Administered No information available. Allergies, Adverse Reactions, Alerts No information available. Results No information available. Plan of Care No information available. Procedures No information available. Vital Signs No information available. Immunizations No information available. Advance Directives No information available.
--- OUTSIDE RECORDS SUMMARY | 2024-12-07 00:23 | XMS_ITS | Encounter Summary ---
Author Organization [employer] ([place], [place], [place], [place]) Address [address] [place] [address] Care Team Providers Care Property Field Inspector Name Role Phone Unavailable Primary Care Provider Unavailabl e Encounter Details Date Type Department Care Team (Late st Contact Info) Description 08/15/2021 Transcribed Document [facility] Family Medicine [facility] [place] [address] ProviderMaría MD [address] [place] [address] Social History Tobacco Use [...] Conversion Note - Historical ProviderMD - 08/15/2021 10:12 AM CDT Patient: CARIN LUCERO Age: 46 years Sex: Female : 1975 Associated Diagnoses: None Author: FARIBA LINARES MD-JEFFREY This 46 year old female had PEG placed one month ago. She is eating now without difficulties. The PEG was to be removed next week. For the past 3 days she has had increasing pain around the PEG site. On examination the site has minimal induration and erythema as expected for PEG site of this age (does not appear to be infected) REC: Continue IV antibiotics and local care measures for the site. Patient can eat today but be NPO after midnight for PEG removal tomorrow if not improving. PEG should be able to be removed by traction but need to be prepared for EGD with anesthesia if not able to remove it by traction. AUG 14 20:15 136 L 100 17 / H 115 3.6 31 H 1.20 \ AUG 14 20:15 \ L 10.7 / 9.6 186 / L 32.8 \ Medications (14) Active Scheduled: (3) famotidine 20 mg/2 mL inj 20 mg 2 mL, IV Push, Daily piperacillin-tazobactam + NaCl 0.9% 50 mL 3.375 Gram, IV Piggyback, Q6HInt vancomycin + NaCl 0.9% 250 mL 1,500 mg, IV Piggyback, [id number] Continuous: (1) NaCl 0.9% 1,000 mL 1,000 mL, IntraVENous, 50 mL/Hr PRN: (10) acetaminophen 325 mg tab 650 mg 2 Tab, Oral, Q4H acetaminophen 325 mg tab 650 mg 2 Tab, Oral, Q4H albuterol-ipratropium inh 3 mL 3 mL, Nebulized Inhalation, RT_Q6H bisacodyl EC 5 mg tab 5 mg 1 Tab, Oral, Daily melatonin 5 mg tab 5 mg 1 Tab, Oral, At Bedtime morphine 2 mg/1 ml inj 1 mg 0.5 mL, IV Push, Q4H ondansetron 4 mg/2 mL inj 4 mg 2 mL, IV Push, Q4H oxyCODONE 5 mg tab 5 mg 1 Tab, Oral, Q4H polyethylene glycol 3350 pwd 17 g pkt 17 Gram 1 Packet, Oral, Daily promethazine 25 mg/1 mL inj 6.25 mg 0.25 mL, IntraVENous, Q6H Vitals Signs (last 24 hrs) Last Charted Minimum Maximum Temp H 99.9 (AUG 15 01:15) 98.9 (AUG 14 20:09) H 100.6 (AUG 14 18:55) Mon HR 106 (AUG 15 03:16) 106 (AUG 15 03:16) 124 (AUG 15 00:45) Periph HR 119 (AUG 14 18:55) 119 (AUG 14 18:55) 119 (AUG 14 18:55) Resp Rate 20 (MAR 13 03:16) 20 (AUG 14 18:55) H 22 (AUG 14 22:33) SBP H 147 (AUG 15 01:15) 130 (AUG 14 20:10) H 160 (AUG 14 18:55) DBP H 100 (AUG 15 01:15) 66 (AUG 14 23:32) H 107 (AUG 15 00:45) MAP 113 (AUG 15:15) 93 (AUG 14 20:10) 118 (AUG 15 00:45) SpO2 96 (AUG 15 08:58) L 93 (AUG 14 23:45) 96 (AUG 15 01:00) Electronically signed by Tomeka, [facility] Conversion Wind Turbine Service Technician Cerner at 09/18/2022 9:00 AM CDT documented in this encounter Plan of Treatment Not on file documented as of this encounter Visit Diagnoses Not on filedocumented in this encounter
--- OUTSIDE RECORDS SUMMARY | 2024-12-07 00:23 | XMS_ITS | Encounter Summary ---
Author Organization [employer] ([place], [place], [place], [place]) Address [address] [place] [address] Care Team Providers Care Aircraft Dispatcher Name Role Phone Unavailable Primary Care Provider Unavailabl e Encounter Details Date Type Department Care Team (Late st Contact Info) Description 08/16/2021 Transcribed Document [facility] [place] [facility] Family Medicine [address] [place] [address] ProviderMaría MD [address] [place] [address] Social History Tobacco Use Types [...] Historical ProviderMD - 08/16/2021 11:20 AM CDT [facility] IntraOp Summary Primary Physician: LEO DOMINGUEZ MD Finalized Date/Time: 08/16/21 11:25:45 Pt. Name: CARIN LUCERO D.O.B./Sex: 1975 Female Med Rec #: [id number] Physician: EDUARD DE LOS SANTOS DO-INT Financial #: [id number] Pt. Type: I Room/Bed: [facility]/ Admit/Disch: 08/14/21 22:53:00 - Institution: [facility] - Case Attendance Entry 1 Entry 2 Entry 3 Case Attendee LEO DOMINGUEZ MD MILLER, MELISSA A, RN PRESCOTT, JACHELE, Emergency Medcl Emt Role Performed Surgeon/Proceduralist, Memory Care Director, First Scrub, First First Time In 08/16/21 11:14:00 08/16/21 11:14:00 08/16/21 11:14:00 Time Out 08/16/21 11:28:00 08/16/21 11:28:00 08/16/21 11:28:00 Procedure EGD w Peg Tube Removal EGD w Peg Tube Removal EGD w Peg Tube Removal / Change / Change / Change Other Attendee Superficial Wound Closed By: Last Modified By: CARIN HILLS, RN CARIN HILLS, RN CARIN HILLS RN 08/16/21 11:25:33 08/16/21 11:25:33 08/16/21 11:25:33 Entry 4 Entry 5 Case Attendee EDILBERTO PATTERSON MD-DARLENE JUAREZ, FARM SPECIALIST Role Performed Anesthesiologist of FARM SPECIALIST/Nurse Processes Chemical Design Engineer Record Time In 08/16/21 11:14:00 08/16/21 11:14:00 Time Out 08/16/21 11:28:00 08/16/21 11:28:00 Procedure EGD w Peg Tube Removal EGD w Peg Tube Removal / Change / Change Other Attendee Superficial Wound Closed By: Last Modified By: CARIN HILLS, CARIN WALKER RN 08/16/21 11:25:33 08/16/21 11:25:33 [facility] - Case Attendance Audit 08/16/21 11:25:33 Research Hydrologist: MONTSE Modifier: REINIERMA 1 <+> Time In 1 <+> Time Out 1 <*> Procedure EGD w Peg Tube Removal / Change 2 <+> Time In 2 <+> Time Out 2 <*> Procedure EGD w Peg Tube Removal / Change 3 <+> Time In 3 <+> Time Out 3 <*> Procedure EGD w Peg Tube Removal / Change 4 <+> Time In 4 <+> Time Out 4 <*> Procedure EGD w Peg Tube Removal / Change 5 <+> Time In 5 <+> Time Out 5 <*> Procedure EGD w Peg Tube Removal / Change 08/16/21 11:16:30 Research Hydrologist: MONTSE Modifier: MILLERMA <+> 2 Case Attendee <+> 2 Role Performed <+> 2 Procedure <+> 3 Case Attendee <+> 3 Role Performed <+> 3 Procedure <+> 4 Case Attendee <+> 4 Role Performed <+> 4 Procedure <+> 5 Case Attendee <+> 5 Role Performed <+> 5 Procedure [facility] - Case times Entry 1 Patient In Room Time 08/16/21 11:14:00 Out Room Time 08/16/21 11:28:00 Anesthesia Start Time 08/16/21 11:14:00 Stop Time 08/16/21 11:28:00 Surgery / Procedure Times Start Time 08/16/21 11:20:00 Stop Time 08/16/21 11:25:00 Last Modified By: CARIN HILLS RN 08/16/21 11:25:31 [facility] - Case times Audit 08/16/21 11:25:31 Research Hydrologist: MILLERMA Modifier: MILLERMA <+> 1 Out Room Time <+> 1 Stop Time <+> 1 Stop Time 08/16/21 11:22:00 Research Hydrologist: REINIERMA Modifier: MILLERMA <+> 1 Start Time [facility] - Delays Entry 1 Delay Reason Other, No Delay Duration 0 Minute(s) Last Modified By: CARIN HILLS RN 08/16/21 11:16:39 [facility] - Departure from OR Entry 1 Integumentary Assessment Integumentary WDL Assessment WDL Transfer/Handoff Transfer to PACU Phase I Handoff Method Bedside/Face to face Post-op Transport Stretcher/Gurney Via Patient Transport CARIN HILLS RN, Accompanied by DARLENE KENNY CRNA Last Modified By: CARIN HILLS RN 08/16/21 11:16:42 [facility] - Endoscopy Details Entry 1 Abdomen Procedure Soft, Non-Tender Assessment Procedure Abdomen 08/16/21 11:16:00 Assessment D/T Radio Frequency Ablation Abdominal Pressure Last Modified By: CARIN HILLS RN 08/16/21 11:16:45 [facility] - Explant Log Entry 1 Explant Log Removal Reason Infection Last Modified By: CARIN HILLS RN 08/16/21 11:18:35 [facility] - Fire Risk Assessment Entry 1 Fire Info Surgical Site or 1- Yes Incision Above the Xyphoid Open O2 Source 1- Yes (Mask or Cannula) Available Ignition 1- Yes (ESU, Laser, Light Source) Fire Risk 3 Assessment Score Fire Score Fire Risk Yes Assessment Complete Fire Risk CARIN HILLS RN Assessment Verified By Fire Risk 08/16/21 11:16:00 Assessment Verified Date/Time Fire Risk High Risk Protocol Yes Implemented Standard Fire Yes Safety Precautions Followed Last Modified By: CARIN HILLS RN 08/16/21 11:16:48 [facility] - General Case Care Management Specialist 1 Case Information OR Endo 01 [facility] Case Level 1 Room Verified Yes Wound Class No Incision Specialty Gastroenterology Anesthesia Type General ASA Class 4 Diagnosis Preop Diagnosis infected peg Postop Same As Preop Yes Postop Diagnosis infected peg Wound Class Definitions Last Modified By: CARIN HILLS RN 08/16/21 11:17:34 [facility] - Intraoperative Assessment Entry 1 Valid History / Yes Physical in Chart Preoperative Yes Checklist Reviewed/Evaluated Patient is Latex No Sensitive Level of WDL Consciousness (WDL = Alert, Oriented to Person, Place, and Time) Last Modified By: CARIN HILLS RN 08/16/21 11:17:36 [facility] - Intraoperative Equipment Entry 1 Equipment Intraop Monitoring Electrocardiogram Three lead placement (ECG) Electrode Placement Blood Pressure Arm, left upper Location Pulse Oximeter Hand, right Probe Site Antiembolic Devices Scopes Flexible Endoscopes Gastroscope Used Scope Serial E Number/Identificatio n Number Photo/Video Documentation Photo Yes Video No Last Modified By: CARIN HILLS RN 08/16/21 11:17:43 [facility] - Patient Positioning Entry 1 Procedure EGD w Peg Tube Removal / Change Body Position Supine Left Arm Position Resting at side Right Arm Position Resting at side Left Leg Position Uncrossed, parallel Right Leg Position Uncrossed, parallel Feet Uncrossed Yes Pressure Points Yes Checked Positioned By CARIN HILLS RN Position Verified Positioning Yes Verified by Surgeon Last Modified By: CARIN HLILS RN 08/16/21 11:17:45 [facility] - Sign In Entry 1 Patient, Site, Yes Procedure Identified Surgical Consent Yes Confirmed Surgical Site N/A Marked by person performing procedure Airway Hypothermia Risk No Warming Measures No Taken Last Modified By: CARIN HILLS RN 08/16/21 11:17:51 [facility] - Sign Out Entry 1 RN Confirmation Surgical Yes Procedure(s) Identified Instrument, Sponge N/A and Sharps Counts Correct/Documented Equipment Problems N/A Documented Specimen Labeled N/A Correctly Urinary Catheter N/A Documented in IView Wound Yes classification reviewed, verified and updated post case in both the General Case Data and Procedure segments Safety Checklist Yes Elements Complete? RN Sign Out CARIN HILLS RN Signature RN Sign Out 08/16/21 11:28:00 Signature Date/Time Plan of Care Outcome - Fire Risk OUTCOME STATEMENT: Goal met Patient is free from injury related to surgical fire Plan of Care Outcome - Pt Positioning OUTCOME STATEMENT: Goal met Absence of signs and symptoms of positioning injury. Plan of Care Outcome - Skin Prep OUTCOME STATEMENT: Goal met Intraoperative care is consistent with measures to prevent infection Plan of Care Outcome - Xray/Images OUTCOME STATEMENT: N/A Absence of observable signs or symptoms of radiation injury Plan of Care Outcome - Counts OUTCOME STATEMENT: N/A Absence of signs and symptoms of injury related to extraneous objects Last Modified By: CARIN HILLS RN 08/16/21 11:25:42 [facility] - Surgical Procedures Entry 1 Procedure EGD w Peg Tube Removal / Change Primary Procedure Yes Primary Surgeon LEO DOMINGUEZ MD Start 08/16/21 11:20:00 Stop 08/16/21 11:25:00 Anesthesia Type General Specialty Gastroenterology Wound Class No Incision Last Modified By: CARIN HILLS RN 08/16/21 11:25:43 [facility] - Surgical Procedures Audit 08/16/21 11:25:43 Research Hydrologist: REINIERLAWANDA Modifier: MONTSE <+> 1 Start <+> 1 Stop [facility] - Time Out Entry 1 Procedure to be EGD w Peg Tube Removal Performed / Change Time Out Time Out Pause Time 08/16/21 11:17:00 All activity Yes suspended (unless life threatening emergency) Team Verbally Correct patient Confirms Information identity, Consent form is present and accurate, Agreement on the procedure to be done, Correct patient position, Relevant images/results properly labeled/appropriately displayed, Reconcile problems if responses among team members differ Antibiotic Yes Prophylaxis Administered Or In Progress Within the Last 60 Minutes Beta Joan N/A Administered Venous N/A Thromboembolism Prophylaxis Required Anticipated Critical Events Surgeon None expected Last Modified By: CARIN HILLS RN 08/16/21 11:18:05 Case Comments <None> Finalized By: CARIN HILLS RN Document Signatures Signed By: CARIN HILLS RN 08/16/21 11:25 Electronically signed by Tomeka [facility] Conversion Editorial Assistant Cerner at 09/18/2022 9:26 AM CDT documented in this encounter Plan of Treatment Not on file documented as of this encounter Visit Diagnoses Not on filedocumented in this encounter
--- OUTSIDE RECORDS SUMMARY | 2024-12-07 00:23 | XMS_ITS | Encounter Summary ---
Author Organization [employer] ([place], [place], [place], [place]) Address [address] [place] [address] Care Team Providers Care Traffic Signal Mechanic Name Role Phone Unavailable Primary Care Provider Unavailabl e Encounter Details Date Type Department Care Team (Late st Contact Info) Description 08/16/2021 Transcribed Document [facility] [place] [facility] [place] [address] ProviderMaría MD [address] [place] [address] Social History Tobacco Use Types [...] Conversion Note - Historical ProviderMD - 08/16/2021 3:00 PM CDT Pain Assessment Entered On: 08/16/2021 17:32 EDT Performed On: 08/16/2021 16:12 EDT by Kallie Edwards Rn Intervention Information: acetaminophen Performed by Kallie Edwards Rn on 08/16/2021 15:12:00 EDT acetaminophen,1000mg Oral Pain Assessment Pain Assessment : Follow-up assessment Pain Scale Goal : 4 Pain Improved by Intervention : Yes Kallie Edwards Rn - 08/16/2021 17:32 EDT Electronically signed by Roman Eckert Conversion Roads And Parking Lots Sweeper Operator Cerner at 09/18/2022 9:18 AM CDT documented in this encounter Plan of Treatment Not on file documented as of this encounter Visit Diagnoses Not on filedocumented in this encounter
--- OUTSIDE RECORDS SUMMARY | 2024-12-07 00:23 | XMS_ITS | Encounter Summary ---
Author Organization [employer] ([place], [place], [place], [place]) Address [address] [place] [address] Care Team Providers Care Media Producer Name Role Phone Unavailable Primary Care Provider Unavailabl e Encounter Details Date Type Department Care Team (Late st Contact Info) Description 08/16/2021 Transcribed Document [facility] [place] [address] [place] [address] ProviderMaría MD [address] [place] [address] Social History Tobacco Use Types [...] Note - Historical ProviderMD - 08/16/2021 3:00 AM CDT Shaker Plate Operator Details Entered On: 08/16/2021 2:17 EDT Performed On: 08/16/2021 3:00 EDT by Venkat Chow Lpn Order Details Transport Mode Order Detail : Ambulatory Isolation Precautions Order Detail : Standard Precautions Patient Needs Meds Crushed/Liquid : No Venkat Chow Lpn - 08/16/2021 2:17 EDT documented in this encounter Plan of Treatment Not on file documented as of this encounter Visit Diagnoses Not on filedocumented in this encounter
--- OUTSIDE RECORDS SUMMARY | 2024-12-07 00:23 | XMS_ITS | Encounter Summary ---
Author Organization [employer] ([place], [place], [place], [place]) Address [address] [place] [address] Care Team Providers Care Prop Drawer Name Role Phone Unavailable Primary Care Provider Unavailabl e Encounter Details Date Type Department Care Team (Late st Contact Info) Description 08/15/2021 Transcribed Document [facility] [place] Medicine [address] [place] [address] ProviderMaría MD [address] [id number] Social History Tobacco Use Types Packs/Day Years [...] Conversion Note - Historical ProviderMD - 08/15/2021 11:49 AM CDT Consult Phone Call Documentation Entered On: 08/15/2021 13:23 EDT Performed On: 08/15/2021 11:49 EDT by Sandy Owens [facility] Phone Call for Consults Consult Phone Call/Page Attempt : First call Consult Reason : Abdominal wall cellulitis Physician Requested for Consult : ERIKA GRANADO MD-INF Provider Service Notified Name : Infectious Disease Date and Time Call Returned : 08/15/2021 13:23 EDT Sandy Owens [facility] - 08/15/2021 13:22 EDT documented in this encounter Plan of Treatment Not on file documented as of this encounter Visit Diagnoses Not on filedocumented in this encounter
--- OUTSIDE RECORDS SUMMARY | 2024-12-07 00:23 | XMS_ITS | Encounter Summary ---
Author Organization [employer] ([place], [place], [place], [place]) Address [address] [place] [address] Care Team Providers Care Crew Trainer Name Role Phone Unavailable Primary Care Provider Unavailabl e Encounter Details Date Type Department Care Team (Late st Contact Info) Description 08/18/2021 Transcribed Document [facility] [place] [address] [place] [address] ProviderMaría MD [address] [place] [address] Social History Tobacco Use Types [...] Conversion Note - Historical ProviderMD - 08/18/2021 3:00 AM CDT Luncheonette Manager Details Entered On: 08/18/2021 2:01 EDT Performed On: 08/18/2021 3:00 EDT by Quynh Gunter RN Order Details Transport Mode Order Detail : Wheelchair Isolation Precautions Order Detail : Standard Precautions Order Detail : 0 IV Order Detail : 1 Oxygen Order Detail : 1 Nurse Collect Order Detail : 0 Lift/Transfer : Minimal Central Line Order Detail : No Room Service : Appropriate Arterial Line : No Patient Needs Meds Crushed/Liquid : No Quynh Gunter RN - 08/18/2021 2:01 EDT documented in this encounter Plan of Treatment Not on file documented as of this encounter Visit Diagnoses Not on filedocumented in this encounter
--- OUTSIDE RECORDS SUMMARY | 2024-12-07 00:23 | XMS_ITS | Encounter Summary ---
Author Organization [employer] ([place], [place], [place], [place]) Address [address] [place] [address] Care Team Providers Care Industrial Maintenance Mechanic Name Role Phone Unavailable Primary Care Provider Unavailabl e Encounter Details Date Type Department Care Team (Late st Contact Info) Description 08/16/2021 Transcribed Document [facility] Radiology [address] [place] [address] Saleem Jimenes MD [address] [place] [id number] Social History Tobacco Use Types Packs/Day [...] Conversion Note - Saleem Jimenes MD - 08/16/2021 10:36 AM EDT Patient: CARIN LUCERO Age: 46 years Sex: Female : 1975 Associated Diagnoses: None Author: SALEEM JIMENES MD-INT Subjective Patient was seen and examined today 08/16/2021. Very anxious Complaining of pain at the site of PEG tube intensity 7/10 pain N.p.o. awaiting for GI evaluation. Review of Systems Constitutional: Fatigue, No fever, [...] mg, 12 mL, 124 mL/Hr, IV Piggyback, 1-Time DAPTOmycin + Sodium Chloride 0.9% intravenous solution 50 mL: 600 mg, 12 mL, 124 mL/Hr, IV Piggyback, [id number] Depakote ER: 500 mg, Oral, Daily Dilaudid: 0.5 mg, IV Push, Q2H, PRN: Pain (Severe 7-10) Dulcolax Laxative: 5 mg, Oral, Daily, PRN: Constipation DuoNeb 0.5 mg-2.5 mg/3 mL inhalation solution: 3 mL, Nebulized Inhalation, RT_Q6H, PRN: Shortness of Breath Geodon: 40 mg, Oral, Daily Imitrex: 100 mg, Oral, Daily LaMICtal: 100 mg, Oral, Daily Lovenox: 40 mg, SubCutaneous, [id number] MiraLax: 17 Gram, Oral, Daily, PRN: Constipation Pepcid: 20 mg, IV Push, Daily Phenergan: 6.25 mg, IntraVENous, Q6H, PRN: Nausea Roxicodone: 5 mg, Oral, Q4H, PRN: Pain (Moderate 4-6) Sodium Chloride 0.9% intravenous solution 1,000 mL: 50 mL/Hr, IntraVENous Tylenol: 650 mg, Oral, Q4H, PRN: Fever Tylenol: 650 mg, Oral, Q4H, PRN: Pain (Mild 1-3) Viibryd: 40 mg, Oral, Daily Wellbutrin XL: 300 mg, Oral, Daily Zofran: 4 mg, IV Push, Q4H, PRN: Nausea clonazePAM: 0.5 mg, Oral, Daily gabapentin: 800 mg, Oral, TID hydrALAZINE: 10 mg, Oral, TID levothyroxine: 25 mcg, Oral, Daily lisinopril: 10 mg, Oral, Daily piperacillin-tazobactam + Sodium Chloride 0.9% intravenous solution 50 mL: 3.375 Gram, 16.67 mL/Hr, IV Piggyback, Q6HInt traZODone: 100 mg, Oral, TID Prescriptions Prescribed Bentyl 20 mg oral tablet: [...] hours oral tablet, extended release: Tab, Oral, [id number], 0 Refill(s) acetaminophen-HYDROcodone 325 mg-5 mg oral [...] oral capsule: 6 Each, 0 Refill(s), Medications (27) Active Scheduled: (17) buPROPion XL 150 mg tab 300 mg 2 Tab, Oral, Daily clonazePAM 0.5 mg tab 0.5 mg 1 Tab, Oral, Daily DAPTOmycin + NaCl 0.9% 50 mL 600 mg 12 mL, IV Piggyback, 1-Time DAPTOmycin + NaCl 0.9% 50 mL 600 mg 12 mL, IV Piggyback, [id number] divalproex sodium ER 500 mg tab 500 mg 1 Tab, Oral, Daily enoxaparin 40 mg/0.4 mL inj 40 mg 0.4 mL, SubCutaneous, [id number] famotidine 20 mg/2 mL inj 20 mg 2 mL, IV Push, Daily gabapentin 400 mg cap 800 mg 2 Cap, Oral, TID hydrALAZINE 10 mg tab 10 mg 1 Tab, Oral, TID lamoTRIgine 100 mg tab 100 mg 1 Tab, Oral, Daily levothyroxine 25 mcg tab 25 mcg 1 Tab, Oral, Daily lisinopril 10 mg tab 10 mg 1 Tab, Oral, Daily piperacillin-tazobactam + NaCl 0.9% 50 mL 3.375 Gram, IV Piggyback, Q6HInt SUMAtriptan 25 mg tab 100 mg 4 Tab, Oral, Daily traZODONE 100 mg tab 100 mg 1 Tab, Oral, TID vilazodone 10 mg tab 40 mg 4 Tab, Oral, Daily ziprasidone 20 mg cap 40 mg 2 Cap, Oral, Daily Continuous: (1) NaCl 0.9% 1,000 mL 1,000 mL, IntraVENous, 50 mL/Hr PRN: (9) acetaminophen 325 mg tab 650 mg 2 Tab, Oral, Q4H acetaminophen 325 mg tab 650 mg 2 Tab, Oral, Q4H albuterol-ipratropium inh 3 mL 3 mL, Nebulized Inhalation, RT_Q6H bisacodyl EC 5 mg tab 5 mg 1 Tab, Oral, Daily HYDROmorphone 1 mg/1 mL inj 0.5 mg 0.5 mL, IV Push, Q2H ondansetron 4 mg/2 mL inj 4 mg 2 mL, IV Push, Q4H oxyCODONE 5 mg tab 5 mg 1 Tab, Oral, Q4H polyethylene glycol 3350 pwd 17 g pkt 17 Gram 1 Packet, Oral, Daily promethazine 25 mg/1 mL inj 6.25 mg 0.25 mL, IntraVENous, Q6H Problem list: Medical History of obstructive sleep apnea / IMO [id number] / Confirmed Suicide risk / IMO [id number] / Confirmed, Active Problems (2) History of [...] (AUG 16 05:30) General: Alert and oriented, Mild distress, Morbid [...] Anxious, Angry. Behavior: Agitated. Review / Management MAR 14 03:44 139 102 22 / H 111 4.5 32 H 1.50 \ AUG 16 03:44 \ L 9.8 / 7.3 L 161 / L 31.7 \ Radiology Results (Last 48 hours) [id number] -- 08/14/2021 22:53 CR Chest 1 Vw [...] from Previous Midnight to Current New Medications: buPROPion (Wellbutrin XL) 300 mg, Oral, XL Tab, Daily, Start 08/15/21 11:44:00 EDT SALEEM JIMENES MD-INT clonazePAM 0.5 mg, Oral, Tab, Daily, Start 08/15/21 11:44:00 EDT SALEEM JIMENES MD-INT DAPTOmycin + Sodium Chloride 0.9% intravenous solution 50 mL 600 mg, IV Piggyback, Inj, 1-Time, infuse over 30 Minute(s), Routine, Start 08/16/21 10:00:00 EDT, Stop 08/16/21 10:00:00 EDT, 124 mL/Hr, Indication: Skin and Skin Structure Infection ERIKA GRANADO MD-INF DAPTOmycin + Sodium Chloride 0.9% intravenous solution 50 mL 600 mg, IV Piggyback, Inj, [id number], infuse over 30 Minute(s), Routine, Start 08/17/21 9:00:00 EDT, 124 mL/Hr, Indication: Skin and Skin Structure Infection ERIKA GRANADO MD-INF divalproex sodium (Depakote ER) 500 mg, Oral, ER Tab, Daily, Start 08/15/21 11:44:00 EDT SALEEM JIMENES MD-INT enoxaparin (Lovenox) 40 mg, SubCutaneous, Inj, [id number], Routine, Start 08/15/21 12:00:00 EDT, 08/15/21 12:21:00 EDT SALEEM JIMENES MD-INT gabapentin 800 mg, Oral, Cap, TID, Start 08/15/21 11:41:00 EDT SALEEM JIMENES MD-INT hydrALAZINE 10 mg, Oral, Tab, TID, Start 08/15/21 11:42:00 EDT SALEEM JIMENES MD-INT HYDROmorphone (Dilaudid) 0.5 mg, IV Push, Inj, Q2H, PRN for Pain (Severe 7-10), Routine, Start 08/15/21 12:14:00 EDT, 08/15/21 12:14:00 EDT SALEEM JIMENES MD-INT lamoTRIgine (LaMICtal) 100 mg, Oral, Tab, Daily, Start 08/15/21 11:42:00 EDT SALEEM JIMENES MD-INT levothyroxine 25 mcg, Oral, Tab, Daily, Start 08/15/21 11:42:00 EDT SALEEM JIMENES MD-INT lisinopril 10 mg, Oral, Tab, Daily, Start 08/15/21 11:42:00 EDT SALEEM JIMENES MD-INT piperacillin-tazobactam + Sodium Chloride 0.9% intravenous solution 50 mL 3.375 Gram, IV Piggyback, Inj, Q6HInt, infuse over 3 Hour(s), Start 08/15/21 12:00:00 EDT, 16.67 mL/Hr, Indication: Sepsis TONJA MARIN MD-ANA LILIA SUMAtriptan (Imitrex) 100 mg, Oral, Tab, Daily, Start 08/15/21 11:43:00 EDT SALEEM JIMENES MD-INT traZODone 100 mg, Oral, Tab, TID, Routine, Start 08/15/21 15:00:00 EDT, 08/15/21 12:03:00 EDT SALEEM JIMENES MD-INT vilazodone (Viibryd) 40 mg, Oral, Tab, Daily, Start 08/15/21 11:43:00 EDT SALEEM JIMENES MD-INT ziprasidone (Geodon) 40 mg, Oral, Cap, Daily, Start 08/15/21 11:42:00 EDT SALEEM JIMENES MD-INT Discontinued Medications: melatonin 5 mg, Oral, Tab, [...] Weekly, 08/15/21 9:00:00 EDT TONJA MARIN MD-EMR vancomycin + Sodium Chloride 0.9% intravenous solution 250 mL 1,500 mg, IV Piggyback, Inj, [id number], infuse over 60 Minute(s), Start 08/15/21 11:00:00 EDT, 250 mL/Hr, Indication: Sepsis ERIKA GRANADO MD-INF Impression and Plan Anterior abdominal wall cellulitis possible abscess at the site of PEG tube CT scan abdomen and pelvis from outside facility noted. No evidence of a loculated abscess Follow-up cultures. Continue broad-spectrum IV antibiotics. Pain control. GI consulted. Possible PEG tube extraction today N.p.o. ID consult. Acute renal failure pain Likely due to volume depletion. Gentle hydration. Creatinine 1.2----> 1.5 Avoid nephrotoxic medications. Monitor kidney function closely. [...] PEG tube. Likely needs PEG tube extraction . GI and ID consulted. Discharge date unable to determine documented in this encounter Plan of Treatment Not on file documented as of this encounter Visit Diagnoses Not on filedocumented in this encounter
--- OUTSIDE RECORDS SUMMARY | 2024-12-07 00:23 | XMS_ITS | Encounter Summary ---
Author Organization [employer] ([place], [place], [place], [place]) Address [address] [place] [address] Care Team Providers Care Booster Station Operator Name Role Phone Unavailable Primary Care Provider Unavailabl e Encounter Details Date Type Department Care Team (Late st Contact Info) Description 08/15/2021 Transcribed Document [facility] [place] [facility] [place] [address] ProviderMaría MD [facility] [place] [address] Social History Tobacco Use Types [...] Conversion Note - Historical ProviderMD - 08/15/2021 12:24 AM RESOURCE SPECIALIST ED Discharge Entered On: 08/15/2021 0:24 EST Performed On: 08/15/2021 0:24 EST by Brittanie Murdock RN Discharge Process Patient Disposition : Admit/Observe Personal Belongings With Patient : Yes IV Discontinued : No Nursing Documentation Completed : Yes Brittanie Murdock RN - 08/15/2021 0:24 EST Admission, ED Nurse Report Accepted By : Rita MCNEIL `Nurse Report (Hand Off) : Called Accompanied By, Discharge : Unaccompanied Fluids/Drips Continued on Admission : Yes Mode Of Departure : Brittanie Thomas RN - 08/15/2021 0:24 EST Electronically signed by Tomeka [facility] Conversion Farmworker Brooder Farm Cerner at 09/18/2022 8:57 AM CDT documented in this encounter Plan of Treatment Not on file documented as of this encounter Visit Diagnoses Not on filedocumented in this encounter
--- OUTSIDE RECORDS SUMMARY | 2024-12-07 00:23 | XMS_ITS | Encounter Summary ---
Author Organization [employer] ([place], [place], [place], [place]) Address [address] [place] [address] Care Team Providers Care Hypercil Core Transformer Assembler Name Role Phone Unavailable Primary Care Provider Unavailabl e Encounter Details Date Type Department Care Team (Late st Contact Info) Description 08/18/2021 Transcribed Document [facility] [place] [facility] [place] [address] ProviderMaría MD [facility] [place] [address] Social History Tobacco Use Types [...] Conversion Note - Historical ProviderMD - 08/18/2021 12:56 PM CDT On Going Discharge Planning Entered On: 08/18/2021 12:57 EDT Performed On: 08/18/2021 12:56 EDT by Piper Massey Inseminator Rn Care Management Progress Note Discharge Arrangements : Patient Post-Acute Information Patient Name: CARIN LUCERO Gender: Female : [birth year] Age: 46 Years No Post-Acute Placement(s) Listed No Post-Acute Service(s) Listed No [place] Referral(s) Listed Discharge Options Discussed with Patient : Acute rehabilitation, Home Health Barriers to Discharge Identified : Clinical Condition of Patient Barriers to Discharge Unresolved : Clinical Condition of Patient Patient Discharge Goal : Home health care Is the Patient Meeting Medical Necessity : Yes Piper Massey, Inseminator Rn - 08/18/2021 12:56 EDT Narrative Progress Note Narrative Progress Note : 4/4 Low RAR Per ID note patient can likely transition to oral abx tomorrow 08/19. Per attending note likely home 08/19. DCP- home with family care Historical Progress Note : HD# 3. elos 4. RRS Low. MDR rounds held with Dr Jimenes. Peg tube removed yesterday and cultures pending. Hopefully can still transition to po abx. DCP is home with family support. ERVIN HERNANDEZ, Aircraft Power Plant Assembler - 08/17/21 15:04:51 HD 3/ELOS 3/RRS low - on room [...] - DCP: home with family support. JEANNETTE MANCERA, Aircraft Power Plant Assembler - 08/16/21 17:36:38 Piper Massey, Inseminator Rn - 08/18/2021 12:56 EDT Electronically signed by Tomeka [facility] Conversion Mental Health Practitioner Cerner at 09/18/2022 9:32 AM CDT documented in this encounter Plan of Treatment Not on file documented as of this encounter Visit Diagnoses Not on filedocumented in this encounter
--- OUTSIDE RECORDS SUMMARY | 2024-12-07 00:23 | XMS_ITS | Encounter Summary ---
Author Organization [employer] ([place], [place], [place], [place]) Address [address] [place] [address] Care Team Providers Care Transfer Specialist Name Role Phone Unavailable Primary Care Provider Unavailabl e Encounter Details Date Type Department Care Team (Late st Contact Info) Description 08/16/2021 Transcribed Document [facility] [place] [facility] [place] [address] ProviderMaría MD [address] [place] [address] Social History Tobacco Use Types [...] Conversion Note - Historical ProviderMD - 08/16/2021 2:37 PM CDT Patient: CARIN LUCERO Age: 46 Years Sex: Female : 1975 *Operation EGD Anesthesia Type propofol per anesthesia Indication for Surgery PEG removal *Preoperative Diagnosis PEG Removal *Postoperative Diagnosis Dislodged PEG *Surgeon(s) Edil Ramos MD *Estimated Blood Loss 0ml *Findings *see op note for full report Body-Prior PEG site without visible interior bumper, the site appears essentially closed off raising concern the PEG was within the peritoneum. *Comments The PEG was removed and covered with gauze. *Plan Follow up with ID recommendations (no findings of abscess or secondary peritonitis). *Specimen(s) none Complications none Date of Service Date/Time of Service SN - Proc - Start Time: 08/16/21 11:20:00 (08/16/21 11:25:43) documented in this encounter Plan of Treatment Not on file documented as of this encounter Visit Diagnoses Not on filedocumented in this encounter
--- OUTSIDE RECORDS SUMMARY | 2024-12-07 00:23 | XMS_ITS | Encounter Summary ---
Author Organization [employer] ([place], [place], [place], [place]) Address [address] [place] [address] Care Team Providers Care Senior Materials Analyst Name Role Phone Unavailable Primary Care Provider Unavailabl e Encounter Details Date Type Department Care Team (Late st Contact Info) Description 08/16/[address] [facility] [place] [address] [place] [address] ProviderMaría MD [address] [place] [address] Social History Tobacco Use Types [...] Conversion Note - Historical ProviderMD - 08/16/2021 10:51 AM CDT Attempt to Treat, PT Entered On: 08/16/2021 12:18 EDT Performed On: 08/16/2021 10:51 EDT by HEMA METCALF PT Attempt to Treat Inability to Treat Comment : Per RN, pt off floor for procedure. Will check back as schedule permits Notification : HEMA Gonzales, PT - 08/16/2021 12:18 EDT documented in this encounter Plan of Treatment Not on file documented as of this encounter Visit Diagnoses Not on filedocumented in this encounter
--- OUTSIDE RECORDS SUMMARY | 2024-12-07 00:23 | XMS_ITS | Encounter Summary ---
Author Organization [employer] ([place], [place], [place], [place]) Address [address] [place] [address] Care Team Providers Care Medicaid Plan Compliance Director Name Role Phone Unavailable Primary Care Provider Unavailabl e Encounter Details Date Type Department Care Team (Late st Contact Info) Description 08/16/2021 Transcribed Document [facility] [place] Medicine [address] [place] [address] ProviderMaría MD [address] [place] [address] Social History Tobacco Use Types [...] Note - Historical ProviderMD - 08/16/2021 9:00 AM CDT [facility] PreOp Summary Primary Physician: LEO DOMINGUEZ MD Finalized Date/Time: 08/16/21 11:09:03 Pt. Name: CARIN LUCERO/Sex: 1975 Female Med Rec #: [id number] Physician: EDUARD DE LOS SANTOS DO-INT Financial #: [id number] Pt. Type: I Room/Bed: [facility]/1 Admit/Disch: 08/14/21 22:53:00 - Institution: [facility] PreOp Case Times Entry 1 In Preop 08/16/21 11:00:00 Ready for Holding 08/16/21 11:08:00 Room Patient Ready for 08/16/21 11:08:00 Surgery Patient Out of Preop 08/16/21 11:08:00 Patient Out of n/a Holding Room Last Modified By: Marck Morel Rn Flex I 08/16/21 11:09:01 Finalized By: Marck Morel Rn Flex I Document Signatures Signed By: Marck Morel Rn Flex I 08/16/21 11:09 Electronically signed by Tomeka [facility] Conversion Digital Content Specialist Cerner at 09/18/2022 9:00 AM CDT documented in this encounter Plan of Treatment Not on file documented as of this encounter Visit Diagnoses Not on filedocumented in this encounter
--- OUTSIDE RECORDS SUMMARY | 2024-12-07 00:23 | XMS_ITS | Encounter Summary ---
Author Organization [employer] ([place], [place], [place], [place]) Address [address] [place] [address] Care Team Providers Care Cook Fast Food Name Role Phone Unavailable Primary Care Provider Unavailabl e Encounter Details Date Type Department Care Team (Late st Contact Info) Description 08/16/2021 Transcribed Document [facility] [place] [facility] [place] [address] ProviderMaría MD [address] [place] [address] Social History Tobacco Use Types [...] Conversion Note - Historical ProviderMD - 08/16/2021 10:53 AM CDT Attempt to Treat, OT Entered On: 08/16/2021 10:54 EDT Performed On: 08/16/2021 10:53 EDT by GIANNA RHODES OTR/Az Attempt to Treat Unable to Treat Due To : Patient Unavailable Inability to Treat Comment : Pt off floor for procedure (EGD vs PEG tube site breakdown.) OT will follow up tomorrow as schedule permits. Notification : EWA Arreguin SHEENAGH E, OTR/Az - 08/16/2021 10:53 EDT Electronically signed by Tomeka [facility] Conversion Power Machine Operator Cerner at 09/18/2022 8:59 AM CDT documented in this encounter Plan of Treatment Not on file documented as of this encounter Visit Diagnoses Not on filedocumented in this encounter
--- OUTSIDE RECORDS SUMMARY | 2024-12-07 00:23 | XMS_ITS | Encounter Summary ---
Author Organization [employer] ([place], [place], [place], [place]) Address [address] [place] [address] Care Team Providers Care Grocery Carrier Name Role Phone Unavailable Primary Care Provider Unavailabl e Encounter Details Date Type Department Care Team (Late st Contact Info) Description 08/15/2021 Transcribed Document [facility] [place] Family Medicine [place] [address] ProviderMaría MD [address] [place] [address] Social History Tobacco Use Types [...] Conversion Note - Historical ProviderMD - 08/15/2021 3:13 AM CDT Nutrition Assessment Entered On: 08/16/2021 13:38 EDT Performed On: 08/16/2021 15:04 EDT by Ann Sutton Dietitian Nutrition Assessment Current Nutrition Regimen Comment : 08/16: RD consult rec'd for BMI>40 + MST (24-33# wt loss). Pt admitted w/ infection around PEG tube site. 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 GI plans for removal today. Pt busy during visit. Will reassess for wt loss at f/up. Dx: anterior abdominal wall cellultis ? abscess at site of PEG, acute renal failure PMH: dhiraj, suicide risk, trach/peg, severe depression/anxiety, obesity, hypothyroidism Labs: Glu 111, Cr 1.50, Alb 2.6, PLT 161 Meds: abx, Pepcid, synthroid, abx, PRN pain, LR Skin: no breakdown GI: LBM 08/16, +BS Diet: NPO for procedure Ht: 61 Wt: 305# wt hx: 240# x 4.5 yrs ago BMI: 57.8 IBW: 103# (296% IBW) Ann Sutton Dietitian - 08/16/2021 15:02 EDT Nutrition Assessment Reason : Automatic referral Ann Sutton Dietitian - 08/16/2021 13:38 EDT Nutrition Diagnoses Weight : Unintended weight loss Weight Related to : clinical condition Weight As Evidenced by : 24-33# wt loss per MST Weight Status : Active Ann Sutton Dietitian - 08/16/2021 15:02 EDT Nutrition Interventions Meals and Snacks : General/Healthful diet Ann Sutton Dietitian - 08/16/2021 15:02 EDT Monitoring/Evaluation Energy Intake : Total energy intake Food Intake : Amount of food Protein Intake : Total protein Weight Status : Weight Maintanence Ann Sutton Dietitian - 08/16/2021 15:02 EDT Nutrition Recommendations Dietitian Recommendations : 1. Continue regular diet as tolerated. RD to assess need for supplements. Goal: >50% of intakes 2. Obtain wt 2x weekly Goal: avoid involuntary wt changes Risk: High Nutrition Care Level : High Ann Sutton Dietitian - 08/16/2021 15:02 EDT documented in this encounter Plan of Treatment Not on file documented as of this encounter Visit Diagnoses Not on filedocumented in this encounter
--- OUTSIDE RECORDS SUMMARY | 2024-12-07 00:23 | XMS_ITS | Encounter Summary ---
Author Organization [employer] ([place], [place], [place], [place]) Address [address] [place] [address] Care Team Providers Care Business Dean Name Role Phone Unavailable Primary Care Provider Unavailabl e Encounter Details Date Type Department Care Team (Late st Contact Info) Description 08/15/2021 Transcribed Document [facility] [place] Family Medicine [address] [place] [address] ProviderMaría MD [address] [place] [address] Social History Tobacco Use Types [...] Conversion Note - Historical ProviderMD - 08/15/2021 11:43 AM CDT Pain Assessment Entered On: 08/15/2021 18:39 EDT Performed On: 08/15/2021 13:47 EDT by Sandrine Blount Lpn Intervention Information: SUMAtriptan Performed by Sandrine Blount Lpn on 08/15/2021 12:47:00 EDT SUMAtriptan,100mg Oral Pain Assessment Pain Assessment : Follow-up assessment Sandrine Blount Lpn - 08/15/2021 18:38 EDT documented in this encounter Plan of Treatment Not on file documented as of this encounter Visit Diagnoses Not on filedocumented in this encounter
--- OUTSIDE RECORDS SUMMARY | 2024-12-07 00:23 | XMS_ITS | Clinical Summary ---
Author Organization [facility] Address [address] [place] [address] Phone Care Team Providers Care Wood Pile Driver Operator Name Role Phone Unavailable Primary Care [...] to complete this topic Insurance [employer] [place] [id number] [address] [employer] [place] [address] [employer] [place] [address] [address] [facility]
--- OUTSIDE RECORDS SUMMARY | 2024-12-07 00:23 | XMS_ITS | Encounter Summary ---
Author Organization [employer] ([place], [place], [place], [place]) Address [address] [place] [address] Care Team Providers Care Dynamometer Tester Engine Name Role Phone Unavailable Primary Care Provider Unavailabl e Encounter Details Date Type Department Care Team (Late st Contact Info) Description 08/16/2021 Transcribed Document [facility] [place] [facility] [place] [address] ProviderMaría MD [address] [place] [address] Social History Tobacco Use Types [...] Conversion Note - Historical ProviderMD - 08/16/2021 10:00 PM CDT Pain Assessment Entered On: 08/16/2021 23:10 EDT Performed On: 08/16/2021 22:26 EDT by MARIANELA TOBAR RN Flex II Intervention Information: oxyCODONE Performed by MARIANELA TOBAR RN Flex II on 08/16/2021 21:26:00 EDT oxyCODONE,5mg Oral Pain Assessment Pain Assessment : Follow-up assessment Pain Scale Goal : 4 Pain Scale Used : 0-10 Scale MARIANELA TOBAR RN Flex II - 08/16/2021 23:09 EDT Pain Scale Intensity : 2 MARIANELA TOBAR RN Flex II - 08/16/2021 23:09 EDT Image 4 - Images currently included in the form version of this document have not been included in the text rendition version of the form. documented in this encounter Plan of Treatment Not on file documented as of this encounter Visit Diagnoses Not on filedocumented in this encounter
--- OUTSIDE RECORDS SUMMARY | 2024-12-07 00:23 | XMS_ITS | Data Portability ---
Author Organization [facility] - Lisa & YAJAIRA Harley ADMIN Address [address] [place] [id number] Care Team Providers Care Crystal Mounter Name Role Phone EMY MUSA Primary Care Provider Assessment No assessment recorded. Plan of Treatment Reminders Order Date Submit Date Provider Last Modified By Organization Details Last Modified Time Details Appointments None recorded. Lab None recorded. Referral None recorded. Procedures None recorded. Surgeries None recorded. Imaging None recorded. Medication Orders triamcinolo ne acetonide 0.1 % topical ointment 2021 022 [id number], [address], [place], [id number], 12:28:32 Patient TargetsNo targets recorded. Patient Instructions Encounter Date Encounter Id Patient Instructions Last Modified By Organization Details Last Modified Time 03/09/2022 [id number] Will try to get her trach downsized to a #8 uncuffed regular length Shiley. Unless Carin loses a significant amount of weight and her health status greatly improves, I would be very hesitant to decanulate her. [email or web address] Not available 03/09/2022 13:37:24 Reason for Referral None Reported. Problems Name Problem SNOMED Code Status Onset Date Resolution Date Notes Provider Name and Address Organization Details Recorded Time Enthesopat hy of hip region 23825128 Active Not Available [facility] 3 08:40:32 Heartburn 00458523 Active Not Available [facility] 3 08:40:31 Hemorrhoid s 47778549 Active Not Available [facility] 3 08:40:32 Complex regional pain syndrome type II of left lower limb 4257245381278 03 Active Not Available [facility] 3 08:40:32 Nausea and vomiting 52879712 Active Not Available [facility] 3 08:40:31 Chronic idiopathic constipati on 58178061 Active Not Available [facility] 3 08:40:32 Spasm 34305608 Active Not Available [facility] 3 08:40:32 Knee pain Active Not Available [facility] 3 08:40:32 Pain in left knee Active Not Available [facility] 3 08:40:32 Internal hemorrhoid s grade III 380262631 Active Not Available [facility] 3 08:40:32 Myofascial pain 381184961 Active Not Available [facility] 3 08:40:32 Chronic pain syndrome 678742359 Active Not Available [facility] 3 08:40:32 Eczema of external auditory canal 65069162 Active Not Available [facility] 3 08:40:32 Osteoarthr itis of right knee joint 5337765572261 00 Active Not Available [facility] 3 08:40:32 Lumbosacra l spondylosi s without myelopathy 59379747 Active Not Available [facility] 3 08:40:32 Morbid obesity 499918366 Active Not Available [facility] 3 08:40:32 Pain of right hip joint 1545352923575 02 Active Not Available [facility] 3 08:40:32 Chronic pain 32541097 Active Not Available [facility] 3 08:40:32 Tracheosto my complicati on 95439264 Active Not Available [facility] 3 08:40:32 Opioid dependence 05076857 Active Not Available [facility] 3 08:40:32 Tracheosto my present 144110022 Active Not Available [facility] 3 08:40:32 Gastroesop hageal reflux disease without esophagiti s 738656057 Active Not Available [facility] 3 08:40:32 Stenosis of rectum and anus 552339084 Active Not Available [facility] 3 08:40:31 History of drug dependency 621024703 Active Not Available [facility] 3 08:40:31 Greater trochanter ic pain syndrome 4469474 Active Not Available [facility] 3 08:40:32 Abdominal pain 38324386 Active Not Available [facility] 3 08:40:32 Neurogenic claudicati on co-occurre nt and due to spinal stenosis of lumbar region Active Not Available [facility] 3 08:40:31 Constipati on 62099802 Active Not Available [facility] 3 08:40:31 Problem Notes None recorded. Procedures Surgical History Date Name Laterality Status Provider Name and Address Organization Details Recorded Time Hysterectomy completed [place]ia [place]nn [place] [facility] [place] [facility] [place] 05/25/2022 14:20:29 cholecystectomy completed Ligia Kaylynn [place] [facility] & [place] 05/25/2022 14:20:43 Appendectomy completed Ligia Kaylynn [place] [facility] [place] [facility] [place] 05/25/2022 14:20:49 colonoscopy completed Ligia Kaylynn [place] [facility] & [place] 05/25/2022 14:23:13 hemorrhoidectomy completed Ligia Kaylynn [place] [facility] & [place] 05/25/2022 14:23:27 Imaging Results None recorded. Procedure Notes None recorded. Medical Equipment None Reported. Allergies Allergen ID Allergen Name Allergen Category Reaction Reaction Severity Criticality Documentation Date Start Date Code Code System Note Provider Name and Address Organization Details Recorded Time 51097 adhesive environme nt,medica tion rash Not available Not available 05/25/2022 [id number] UNK Not Available [facility] 3 08:40:29 Medications Name Sig Start Date Stop Date Status Note LastModified by Organization Details LastModified Time hydralazine 10 mg tablet active Not Available Not Available Not Available albuterol sulfate 0.63 mg/3 mL solution for nebulizatio n active Not Available Not Available Not Available doxycycline hyclate 100 mg capsule TAKE 1 CAPSULE BY MOUTH TWICE A DAY FOR 10 DAYS active Not Available Not Available No t Available carvedilol 12.5 mg tablet 03/09 completed Not Available Not Available Not Available ipratropium 0.5 mg-albutero l 3 mg (2.5 mg base)/3 mL nebulizatio n soln INHALE THE CONTENTS OF 1 VIAL VIA NEBULIZER FOUR TIMES DAILY NEEDED FOR SHORTNESS OF BREATH OR wheezing active Not Available Not Available No t Available clindamycin HCl 300 mg capsule active Not Available Not Available Not Available triamcinolo ne acetonide 0.5 % topical cream 1 {applicat ion} by topical route. active Not Available Not Available No t Available fluconazole 150 mg tablet active Not Available Not Available Not Available sumatriptan 100 mg tablet active Not Available Not Available Not Available hydrocodone 5 mg-acetamin ophen 325 mg tablet active Not Available Not Available No t Available minocycline 100 mg capsule active Not Available Not Available Not Available fluconazole 200 mg tablet active Not Available Not Available Not Available prednisone 20 mg tablet TAKE 2 TABLETS BY MOUTH DAILY FOR 5 DAYS active Not Available Not Available No t Available clonazepam 0.5 mg tablet 03/09 completed Not Available Not Available Not Available clonazepam 1 mg tablet Take 1 {tablet} by oral route. 03/09 completed Not Available Not Available Not Available triamcinolo ne acetonide 0.5 % topical ointment active Not Available Not Available Not Available metronidazo le 500 mg tablet 03/09 completed Not Available Not Available Not Available amlodipine 5 mg tablet active Not Available Not Available Not Available sulfamethox azole 800 mg-trimetho prim 160 mg tablet active Not Available Not Available Not Available hydrocodone 10 mg-acetamin ophen 325 mg tablet TAKE ONE TABLET BY MOUTH THREE TIMES DAILY MAY CAUSE DROWSINES S active Not Available Not Available No t Available omeprazole 40 mg capsule,del ayed release active Not Available Not Available Not Available levothyroxi ne 25 mcg tablet active Not Available Not Available Not Available bisoprolol fumarate 5 mg tablet active Not Available Not Available No t Available amoxicillin 875 mg tablet active Not Available Not Available Not Available ziprasidone 20 mg capsule 1 {capsule_ with_food } twice a day by oral route. active Not Available Not Available No t Available magnesium oxide 400 mg (241.3 mg magnesium) tablet active Not Available Not Available Not Available torsemide 100 mg tablet active Not Available Not Available Not Available gabapentin 800 mg tablet TAKE ONE TABLET BY MOUTH THREE TIMES DAILY FOR NEUROPATH Y active Not Available Not Available No t Available furosemide 80 mg tablet 03/09 completed Not Available Not Available Not Available trazodone 100 mg tablet active Not Available Not Available Not Available benzonatate 100 mg capsule active Not Available Not Available Not Available hydrocodone 7.5 mg-acetamin ophen 325 mg tablet active Not Available Not Available No t Available cephalexin 500 mg capsule active Not Available Not Available Not Available Cipro 500 mg tablet Take 1 tablet every 12 hours by oral route for 7 days. 2022 active Not Available Not Available Not Avai lable bumetanide 0.5 mg tablet active Not Available Not Available Not Available triamcinolo ne acetonide 0.1 % topical ointment APPLY A THIN LAYER TO THE AFFECTED AREA(S) BY TOPICAL ROUTE 2 TIMES PER DAY 2021 active Not Available Not Available Not Avai lable lisinopril 10 mg tablet active Not Available Not Available Not Available promethazin e 25 mg tablet TAKE ONE TABLET BY MOUTH EVERY 8 HOURS NEEDED FOR NAUSEA AND VOMITING active Not Available Not Available No t Available nicotine 21 mg/24 hr daily transdermal patch active Not Available Not Available Not Available gabapentin 300 mg capsule 03/09 completed Not Available Not Available Not Available budesonide 0.25 mg/2 mL suspension for nebulizatio n active Not Available Not Available Not Available mupirocin 2 % topical ointment active Not Available Not Available Not Available furosemide 20 mg tablet 03/09 completed Not Available Not Available Not Available ziprasidone 40 mg capsule 03/09 completed Not Available Not Available Not Available diazepam 10 mg tablet TAKE ONE TABLET BY MOUTH TWICE DAILY FOR ANXIETY active Not Available Not Available No t Available levofloxaci n 500 mg tablet 03/09 completed Not Available Not Available Not Available levofloxaci n 750 mg tablet TAKE 1 TABLET BY MOUTH DAILY active Not Available Not Available No t Available methylpredn isolone 4 mg tablets in a dose pack 03/09 completed Not Available Not Available Not Available hydrocodone 10 mg-chlorphe niramine 8 mg/5 mL oral susp extend.rel 12hr TAKE 5ML BY MOUTH EVERY 12 HOURS FOR 5 DAYS (NOT COVERED) 03/09 completed Not Available Not Available Not Available albuterol sulfate HFA 90 mcg/actuati on aerosol inhaler INHALE 1 PUFF BY MOUTH EVERY 6 HOURS NEEDED FOR SHORTNESS OF BREATH active Not Available Not Available No t Available bromphenira mine-pseudo ephedrine-D M 2 mg-30 mg-10 mg/5 mL oral syrup active Not Available Not Available Not Available ziprasidone 60 mg capsule active Not Available Not Available Not Available Imitrex 25 mg tablet twice a day by oral route. active Not Available Not Available No t Available fluticasone propionate 50 mcg/actuati on nasal spray,suspe nsion instill 1 SPRAY IN EACH NOSTRIL EVERY DAY active Not Available Not Available No t Available cholecalcif lindy (vitamin D3) 125 mcg (5,000 unit) capsule active Not Available Not Available Not Available doxycycline hyclate 100 mg tablet 03/09 completed Not Available Not Available Not Available lamotrigine 100 mg tablet active Not Available Not Available Not Available spironolact one 50 mg tablet active Not Available Not Available Not Available diazepam 5 mg tablet 03/09 completed Not Available Not Available Not Available amoxicillin 875 mg-potassiu m clavulanate 125 mg tablet active Not Available Not Available Not Available amoxicillin 500 mg-potassiu m clavulanate 125 mg tablet 03/09 completed Not Available Not Available Not Available Vitamin B-12 2,500 mcg sublingual tablet active Not Available Not Available Not Available cyclobenzap rine 5 mg tablet active Not Available Not Available Not Available DILT-XR 120 mg capsule, extended release active Not Available Not Available Not Available duloxetine 30 mg capsule,del ayed release active Not Available Not Available Not Available formoterol fumarate 20 mcg/2 mL solution for nebulizatio n active Not Available Not Available Not Available ClearLax 17 gram/dose oral powder 03/09 completed Not Available Not Available Not Available Mucus Relief ER 600 mg tablet, extended release 03/09 completed Not Available Not Available Not Available vilazodone 40 mg tablet active Not Available Not Available Not Available Viibryd 20 mg tablet 1 {tablet_w ith_food} by oral route. active Not Available Not Available No t Available OneTouch Verio test strips active Not Available Not Available Not Available Linzess 290 mcg capsule 1 {capsule} by oral route. active Not Available Not Available No t Available OneTouch Verio Flex Meter active Not Available Not Available Not Available Trelegy Ellipta 100 mcg-62.5 mcg-25 mcg powder for inhalation active Not Available Not Available N ot Available OneTouch Delica Plus Lancet 33 gauge active Not Available Not Available Not Available [facility] ODT 75 mg disintegrat ing tablet active Not Available Not Available N ot Available Flowflex COVID-19 Antigen Home Test kit 03/09 completed Not Available Not Available Not Available Paxlovid 300 mg (150 mg x 2)-100 mg tablets in a dose pack TAKE ACCORDING TO PACKAGE DIRECTION S active Not Available Not Available No t Available Vitals Date Recorded Body height Body mass index (BMI) Body weight Body temperature Heart rate Systolic And Diastolic Provider Name and Address Organization Details Last Updated DateTime 3 154.94 cm 70.1 kg/m2 510580. 77 g 98.2 [degF] 104 /min 154/84 mm[Hg] [facility] & [place] 3 16:26:08 Date Recorded Body height Body mass index (BMI) Body weight Body temperature Heart rate Systolic And Diastolic Provider Name and Address Organization Details Last Updated DateTime 2 154.94 cm 71.8 kg/m2 929842. 1 g 97.8 [degF] 108 /min 129/81 mm[Hg] [facility] & [place] 2 10:35:45 Date Recorded Body height Body mass index (BMI) Body weight Body temperature Systolic And Diastolic Provider Name and Address Organization Details Last Updated DateTime 05/25/2022 154.94 cm 70.9 kg/m2 245678. 14 g 97.3 [degF] 161/78 mm[Hg] [facility] & [place] 2 14:19:46 Social History None recorded. Functional Status None recorded. Mental Status None recorded. Family History Nothing Reported. Medical History Condition Response Emphysema N Glaucoma N Depression Y Anesthesia Complications N Anxiety Disorder Y Hearing Loss N Arthritis Y Acid Reflux (GERD) N Cancer N Stroke N Headaches N Fibromyalgia N Speech Delay N Kidney Disease N Allergies/Hayfever N Heart Problems N Heart Conditions N Migraines N Thyroid Problems Y Developmental Delay N Anemia N Immune System Disorder N Heart Attack ([place]) N Diabetes N Bleeding Disorder N Tuberculosis N Hyperlipidemia N Asthma Y Sleep Disorder N GERD/Reflux Y Heart Disease N Hypertension Y Gynecological HistoryNo gynecological history recorded. Obstetrics History GPAL:G 0 P 0 0 0 0 Past Encounters Encounter ID Performer Location Encounter Start Date Encounter Closed Date Diagnosis/Indication Diagnosis SNOMED-CT Code Diagnosis ICD10 Code Diagnosis Note [id number] Nicki Cruz MD [facility] [place] [id number] 03/09/2022 10:21:30 03/09/2022 11:10:20 Chronic eczema of external auditory canal 828473673 H60.8X9 Tracheostomy present 302 915514 Z93.0 Chronic hy poxemic respiratory failure 099158586 J96.11 [id number] Nicki Cruz MD [facility] [address] [place] [id number] 05/25/2022 14:16:15 05/25/2022 14:35:14 Morbid obesity 492303639 E66.01 Tracheostomy present 302 938858 Z93.0 Patient came in for trach change however, she was given the wrong sized trach by her DME company. She was given a regular length Shiley and she requires and XL trach. She expresses desire to switch companies. She would like to try [facility] in [place]. Will send order there for her supplies. She will call when she receives them and we will see her back for replacemen t. Sooner if needed. [id number] Nicki Cruz MD [facility] [place] [id number] 08/02/2022 16:19:38 08/02/2022 16:42:38 Tracheostomy present 081993372 Z93.0 Explained to patient her trach looks good today. No sign of infection, no odor. Skin is intact around the trach site. I saw nothing concerning on flexible laryngosco py today. I do not feel she requires an antibiotic . She does have her new size [address]. She is happy with her new DME company. She expresses desire for physical therapy and I agree she would benefit from a consult/ev aluation. She would like to have this done at [facility]. I will see her back as needed. Morbid obesity 430473281 E66.01 Dyspnea on exertion 6084 5006 R06.09 Health Concerns Section Related Observation LastModified by Organization Detai ls LastModified Time None Recorded Concern Status LastModified by Organization Details LastModified Time None Recorded Advance Directives Directive None Recorded Payers Insurance Date Sequence Insurance Name Policy Number Policy Kasper Covered Member ID Kasper Member ID Guarantor Name 12/23/2023 1 [facility] (MEDICAID HMO) Carin Badillo [id number] Carin Badillo Notes Date Note Type Note Provider Name and Address Organization Details Recorded Time 03/09/2022 text/html Carin is here to discuss the possibility of getting a smaller tracheostomy tube. She reports this one feels too long and is cutting off her air. When she pulls the trach out to some degree she is able to breath much better per her report. She has not had to be placed on the ventilator since her discharge from [facility] although she has been admitted to [facility] several times since. Dr. Musa is her PCP. Nicki Cruz MD [address], [place], [phone], [facility] & [place] 03/09/2022 14:01:02 05/25/2022 text/html Carin is here to discuss the possibility of getting a smaller tracheostomy tube. She reports this one feels too long and is cutting off her air. When she pulls the trach out to some degree she is able to breath much better per her report. She has not had to be placed on the ventilator since her discharge from [facility] although she has been admitted to [facility] several times since. Dr. Musa is her PCP. 05/25/22- Patient returns to the office following up on her trach. Nicki Cruz MD [address], [place], [address], [facility] & [place] 06/06/2022 09:59:00 08/02/2022 text/html Carin is here to discuss the possibility of getting a smaller tracheostomy tube. She reports this one feels too long and is cutting off her air. When she pulls the trach out to some degree she is able to breath much better per her report. She has not had to be placed on the ventilator since her discharge from [facility] although she has been admitted to [facility] several times since. Dr. Musa is her PCP. 05/25/22- Patient returns to the office following up on her trach.08/02/22- Patient returns to the office today concerned with an infection around her trach. States she smells a foul odor. Is getting some mucous from the trach. She was prescribed cipro by our office in June for possible infection. States it did not clear. She was seen at [facility] not too long after and was prescribed Doxycyline. Nicki Cruz MD [id number] [facility], [place], [address], [facility] [place] - [place] & [place] 08/03/2022 11:33:43 OBGyn Episode No OBEpisode recorded.
--- OUTSIDE RECORDS SUMMARY | 2024-12-07 00:23 | XMS_ITS | Encounter Summary ---
Author Organization [employer] ([place], [place], [place], [place]) Address [address] [place] [address] Care Team Providers Care Sourcing Consultant Name Role Phone Unavailable Primary Care Provider Unavailabl e Encounter Details Date Type Department Care Team (Late st Contact Info) Description 08/17/2021 Transcribed Document [facility] – [place] Family Medicine [facility] [place] [address] ProviderMaría MD [address] [place] [address] Social History Tobacco Use Types [...] Conversion Note - Historical ProviderMD - 08/17/2021 1:48 PM CDT Patient: CARIN LUCERO Age: 46 years Sex: Female : 1975 Associated Diagnoses: None Author: ERIKA GRANADO MD-INF Basic Information CC: Abdominal wall cellulitis, PEG tube infection History of Present Illness 46 yo female with h/o IRLANDA, morbid obesity, tobacco abuse, COVID-19 pneumonia, and recent respiratory arrest at [facility] requiring tracheostomy/PEG about a month ago with transfer to [facility]. She was discharged on 08/11. She has been tolerating oral intake and was scheduled to have PEG removed next week. She began having pain around the PEG tube site around 3 days ago with the area becoming more red with burning sensation prompting her to come to [facility] ED on 08/14/21. She denies fever, [...] be changed to an oral antibiotics soon. Review of Systems Constitutional: Weakness, No fever, [...] mL - 600 mg, IV Piggyback, Inj, [id number], infuse over 30 Minute(s), Routine Anticoagulant enoxaparin (Lovenox) - 40 mg, SubCutaneous, Inj, [id number], Routine Cardiovascular carvedilol - 12.5 mg, Oral, [...] 24 hrs) Last Charted Minimum Maximum Temp 98.1 (AUG 17 03:22) 97.9 (AUG 17 00:00) H 100.6 (AUG 16:) Apical HR H 120 (AUG 16:12) H 120 (AUG 16:12) H 120 (AUG 16:) Mon HR 101 (AUG 17 10:00) 90 (AUG 17 00:00) 122 (AUG 16:) Resp Rate 18 (AUG 17 03:22) 15 (AUG 16:23) 18 (AUG 16:26) SBP 117 (AUG 17 10:24) 92 (AUG 17 00:00) 117 (AUG 17 10:24) DBP H 92 (AUG 17 10:24) L 54 (AUG 17 00:00) H 92 (AUG 17 10:24) MAP 100 (AUG 17 10:00) 66 (AUG 16 21:26) 100 (AUG 17 10:00) SpO2 L 91 (AUG 17 08:04) L 91 (AUG 17 08:04) 96 (AUG 17 00:00) General: Alert and oriented, Moderate distress. Eye: Pupils are equal, round and reactive to light, Extraocular movements are intact, Normal conjunctiva. HENT: Normocephalic, Oral mucosa is moist, No pharyngeal erythema. Neck: Supple, Non-tender, No jugular venous distention, No lymphadenopathy, No thyromegaly. Respiratory: Lungs are clear to auscultation, Respirations are non-labored, Breath sounds are equal. Cardiovascular: Normal rate, No gallop, Normal peripheral perfusion. Gastrointestinal: Soft, Non-tender, Non-distended, Normal bowel sounds, No organomegaly. Musculoskeletal: Normal range of motion, Normal strength, No tenderness, No deformity. Integumentary: Warm, Dry, [place], No pallor, No rash, PEG tube site with minimal induration, no purulent drainage, no foul smell, minimal erythema on the abdominal wall. Trach site with some purulent discharge and minimal erythema.. Neurologic: Alert, Oriented, No focal deficits. Cognition and Speech: Oriented, Speech clear and coherent. Psychiatric: Cooperative, Appropriate mood & affect. Review / Management Results review: Labs (Last four charted values) WBC 6.2 (AUG 17) 7.3 (AUG 16) 9.6 (AUG 14) HB L 9.5 (AUG 17) L 9.8 (AUG 16) L 10.7 (AUG 14) HCT L 31.1 (AUG 17) L 31.7 (AUG 16) L 32.8 (AUG 14) Plt 172 (AUG 17) L 161 (AUG 14) 186 (AUG 12) Na 138 (AUG 17) 139 (AUG 14) 136 (AUG 12) K 4.4 (AUG 17) 4.5 (AUG 14) 3.6 (AUG 12) Cl 102 (AUG 17) 102 (AUG 14) L 100 (AUG 12) CO2 29 (AUG 15) 32 (AUG 14) 31 (AUG 12) BUN H 35 (AUG 15) 22 (AUG 14) 17 (AUG 12) Cr H 1.80 (AUG 15) H 1.50 (AUG 14) H 1.20 (AUG 12) Glu R H 113 (AUG 15) H 111 (AUG 14) H 115 (AUG 12) Ca L 8.2 (AUG 15) 8.5 (AUG 14) 8.5 (AUG 12) Lactic 1.0 (AUG 14) PT 9.7 (AUG 14) INR 0.9 (AUG 14) PTT 27.5 (AUG 14) AST 12 (AUG 14) ALT 19 (AUG 14) ALK P 65 (AUG 14) T Bili 0.2 (AUG 14) PTN 7.2 (AUG 14) ALB L 2.6 (AUG 14) , ACC: [id number] ORDER: Culture Wound and Stain DATE: 08/15/2021 13:10 SOURCE: Drainage SITE: Trachea Reports Pre 08/17/2021 09:53 Moderate Growth Coagulase Negative Staphylococcus Moderate Growth Coagulase Negative Staphylococcus #2 Pre 08/16/2021 06:24 Culture in progress GS 08/15/2021 20:07 No cells seen No organisms seen. == ACC: [id number] ORDER: Culture Wound and Stain DATE: 08/15/2021 13:01 SOURCE: Surgical Swab SITE: Abdomen Reports Pre 08/17/2021 10:23 Moderate Growth Coagulase Negative Staphylococcus Moderate Growth Enterococcus species Pre 08/17/2021 09:46 Moderate Growth Coagulase Negative Staphylococcus Moderate Growth Gamma Hemolytic Streptococcus Pre 08/16/2021 06:23 Culture in progress GS 08/15/2021 14:15 No organisms seen. Few White Blood Cells == ACC: [id number] ORDER: Culture Blood DATE: 08/14/2021 19:11 SOURCE: Blood SITE: Reports Pre 08/16/2021 23:01 No growth at 2 days. Pre 08/15/2021 23:01 No growth at 1 day. Pre 08/15/2021 16:01 Culture less than 24 Hrs old == ACC: [id number] ORDER: Culture Blood DATE: 08/14/2021 19:11 SOURCE: Blood SITE: Reports Pre 08/16/2021 23:01 No growth at 2 days. Pre 08/15/2021 23:01 No growth at 1 day. Pre 08/15/2021 16:01 Culture less than 24 Hrs old == . Impression and Plan 1. Acute abdominal wall [...] 14. Anemia, chronic disease, worse. 15. Thrombocytopenia, resolved, probably related to medications. 16. Acute kidney injury, worse. Probably related to medications and other. Vancomycin stopped. 17. Hypocalcemia. Worse. Plan: 1. Diagnostically, blood and PEG site wound cultures, physical examination, imaging, CBC, CMP, ESR, CRP, CPK, procalcitonin, lactic acid. MRSA PCR. Check trach wound culture. 2. Therapeutically, continue Zosyn and daptomycin until 08/19 then consider change to oral agent. 3. PEG tube removal by GI on 08/16 revealed may not have been in the stomach so at increased risk for peritonitis. 4. Continue wound care. 5. Obtain records from [facility] and [facility] and place on chart. 6. Continue oxygen support as needed. Plan has been discussed with patient including side effects of medications and line. At increased risk for side effects of abx and line, and readmission. Discussed in detail with nursing, and the patient's mother. documented in this encounter Plan of Treatment Not on file documented as of this encounter Visit Diagnoses Not on filedocumented in this encounter
--- OUTSIDE RECORDS SUMMARY | 2024-12-07 00:24 | XMS_ITS | Encounter Summary ---
Author Organization [employer] ([place], [place], [place], [place]) Address [address] [place] [address] Care Team Providers Care Optometry Assistant Name Role Phone Unavailable Primary Care Provider Unavailabl e Encounter Details Date Type Department Care Team (Late st Contact Info) Description 08/14/2021 Transcribed Document [facility] – [place] Family Medicine [address] [place] [address] ProviderMaría MD [address] [place] [address] Social History Tobacco Use Types [...] Cerner Conversion Note - Historical ProviderMD - 08/14/2021 11:49 PM [employer]TONHOLE FACER Pain Assessment Entered On: 08/15/2021 22:58 EDT Performed On: 08/15/2021 23:06 EDT by Venkat Chow Lpn Intervention Information: oxyCODONE Performed by Venkat Chow Lpn on 08/15/2021 22:06:00 EDT oxyCODONE,5mg Oral,Pain (Moderate 4-6) Pain Assessment Pain Assessment : Follow-up assessment Pain Scale Goal : 4 Venkat Chow Lpn - 08/15/2021 22:58 EDT Electronically signed by T[facility]ka [facility] Conversion After [employer] Driver Cerner at 09/18/2022 8:56 AM CDT documented in this encounter Plan of Treatment Not on file documented as of this encounter Visit Diagnoses Not on filedocumented in this encounter
--- OUTSIDE RECORDS SUMMARY | 2024-12-07 00:24 | XMS_ITS | Encounter Summary ---
Author Organization [employer] ([place], [place], [place], [place]) Address [address] [place] [address] Care Team Providers Care Resistance Welding Machine Operator Name Role Phone Unavailable Primary Care Provider Unavailabl e Encounter Details Date Type Department Care Team (Late st Contact Info) Description 09/30/2021 Transcribed Document [facility] [place] [facility] [place] [address] ProviderMaría MD [address] [place] [address] Social History Tobacco Use Types [...] Cerner Conversion Note - Historical ProviderMD - 09/30/2021 8:51 PM CDT ED Discharge Entered On: 09/30/2021 20:51 EDT Performed On: 09/30/2021 20:51 EDT by Bia Yusuf RN-PATIENT CARE BEDSIDE NON-EXEMPT Discharge Process Patient Disposition : Discharge Personal Belongings With Patient : Yes Patient Education Completed : Yes Teaching Evaluation : Returns demonstration, Verbalizes understanding IV Discontinued : Yes Bia Yusuf RN-PATIENT CARE BEDSIDE NON-EXEMPT - 09/30/2021 20:51 EDT ED Discharge Discharge To : Home with ambulatory/outpatient follow-up Mode Of Departure : Wheelchair Accompanied By : Mother Discharge Instructions Reviewed With, Opportunity For Questions Given : Patient, Mother Prescriptions Given to Patient : Electronically sent Number of Prescriptions Given : 2 Bia Yusuf RN-PATIENT CARE BEDSIDE NON-EXEMPT - 09/30/2021 20:51 EDT documented in this encounter Plan of Treatment Not on file documented as of this encounter Visit Diagnoses Not on filedocumented in this encounter
--- OUTSIDE RECORDS SUMMARY | 2024-12-07 00:24 | XMS_ITS | Clinical Summary ---
Author Organization [facility] Address [address] [place] [id number] Phone Care Team Providers Care Traffic Assistant Name Role Phone Unavailable Primary Care [...]
--- OUTSIDE RECORDS SUMMARY | 2024-12-07 00:24 | XMS_ITS | Clinical Summary ---
Author Organization [employer] ([place], [place], [place], [place]) Address [address] [place] [address] Care Team Providers Care Yarn Spinner Name Role Phone Unavailable Primary Care Provider Unavailabl e Social History Tobacco Use Types Packs/Day Years Used Date Smoking Tobacco: Never Assessed Comments Unknown Sex and Gender Information Value Date Recorded Sex Assigned at Female 11/30/2021 3:01 PM CDT Legal Sex Female 3:01 PM CDT Gender Identity Female 11/30/2021 3:01 PM CDT Sexual Orientation Not on file Plan of Treatment Not on file
--- OUTSIDE RECORDS SUMMARY | 2024-12-07 00:24 | XMS_ITS | Encounter Summary ---
Author Organization [employer] ([place], [place], [place], [place]) Address [address] [place] [address] Care Team Providers Care Mounting Inspector Name Role Phone Unavailable Primary Care Provider Unavailabl e Encounter Details Date Type Department Care Team (Late st Contact Info) Description 09/30/2021 Transcribed Document [facility] [place] [address] ProviderMaría MD [address] [place] [address] Social History Tobacco Use Types Packs/Day Years Used Date Smoking Tobacco: Never Assessed Comments Unknown Sex and Gender Information Value Date Recorded Sex Assigned at Female 11/30/2021 3:01 PM CDT Legal Sex Female 3:01 PM CDT Gender Identity Female 11/30/2021 3:01 PM CDT Sexual Orientation Not on file documented as of this encounter Miscellaneous Notes * Cerner Conversion Note - María Roberts MD - 09/30/2021 8:31 PM CDT [facility] [address] [place], [place] [id number] JAZMINE CARIN :1975 Visit Time:09/30/2021 Your Visit Summary Your Care Team Primary Provider: TONJA REED Secondary Provider: Your Diagnosis Atypical pneumonia Cough Cough Shortness of breath Medical Information You may obtain a copy of your Emergency Department visit from Medical Records by calling the hospital phone number listed above and asking to be directed to the Medical Records Department. If you had special tests, such as EKG???s or X-rays, the interpretation of your tests given to you by the Emergency Department Physician is a preliminary report. Some fractures and illnesses fail to show up on preliminary tests. These will be reviewed again and we will call you if there are any new suggestions. If your symptoms continue notify your physician. After you leave, you should follow the instructions provided. What to do next Follow-Up Appointments Follow Up with EMY MUSA When Within 2 to 3 days Where: [place] [address]- Business (1) Allergies metoclopramide Immunizations This Visit No Immunizations Found Medications What How Much When Instructions Next Dose chlorpheniramine-hydrocodone (Tussionex [employer]etic 10 mg-8 mg/ 5 mL oral suspension, extended release) 5 Milliliter(s) Oral Every 12 hours Duration: 5 Day(s) Pickup at [facility]/pharmacy #[id number] doxycycline (doxycycline monohydrate 100 mg oral tablet) 1 Tablet(s) Oral Two Times A Day Duration: 10 Day(s) Pickup at [facility] acetaminophen-hydrocodone (acetaminophen-HYDROcodone 325 mg-5 mg oral tablet) 1 Tablet(s) Oral Two Times A Day as needed for Pain (Severe 7-10) albuterol (albuterol 2.5 mg/ 3 mL (0.083%) inhalation solution) 3 Milliliter(s) Inhalation Every 6 Hours as needed for wheezing albuterol (ProAir HFA 90 mcg/ inh inhalation aerosol) 2 Puff(s) Inhalation Every 6 Hours as needed for Wheezing carvedilol (carvedilol 12.5 mg oral tablet) 1 Tablet(s) Oral Two Times A Day Duration: 30 Day(s) clonazePAM (clonazePAM 0.5 mg oral tablet) 1 Tablet(s) Oral Three Times A Day as needed for Anxiety fluticasone/ umeclidinium/ vilanterol (Trelegy Ellipta 100 mcg-62.5 mcg-25 mcg/ inh inhalation powder) 1 Puff(s) Inhalation Every Day furosemide (furosemide 20 mg oral tablet) 1 Tablet(s) Oral Every Day gabapentin (gabapentin 300 mg oral capsule) 1 Capsule(s) Oral Three Times A Day Replaces 800mg dose lamoTRIgine (lamoTRIgine 100 mg oral tablet) 1 Tablet(s) Oral Every Day 30 Each levothyroxine (levothyroxine 25 mcg (0.025 mg) oral tablet) 1 Tablet(s) Oral Every Day 30 Each omeprazole (omeprazole 40 mg oral delayed release capsule) 1 Capsule(s) Oral Every Day before a meal SUMAtriptan (SUMAtriptan 100 mg oral tablet) 1 Tablet(s) Oral One Time Order as needed for as needed for migraine headache may repeat dose after 2 hours up to a maximum of 200 mg in 24 hours vilazodone (Viibryd 40 mg oral tablet) 1 Tablet(s) Oral Every Day 90 Each ziprasidone (ziprasidone 40 mg oral capsule) 1 Capsule(s) Oral Two Times A Day Pharmacy Information [facility]/pharmacy #[id number]: [address] [place], [place] [id number] [phone] [facility] [place]: [address] [facility] [address] [place], [place] [phone] [phone] The home medications listed are only as accurate as the information you provided. Please continue taking all of your medications prescribed by your Primary Care Provider unless specifically told to change or discontinue the medication. Please direct any questions regarding your home medications to your Primary Care Provider. Take your medications faithfully. Do NOT skip medication. Do NOT stop taking medications without the direction of a physician. Carry a list of your medications with you at all times, and take this medication list with you to your first follow up visit. Report any side effects. Avoid herbal remedies unless discussed with your physician. As part of your treatment plan, your physician may have prescribed a limited course of a controlled substance. This medication may be given to help people with moderate or severe pain or for other medical conditions, but there are risks involved with treatment. Common side effects may include nausea, constipation, drowsiness, sweating, itching, dry mouth, and rash. More serious side effects may include cognitive and motor impairment, like problems with thinking, concentrating, alertness, and movement (e.g. slowed reflexes), and driving and operating heavy machinery can be dangerous. It is important for you to talk to your physician if you have these side effects or questions. These controlled substances can produce physical dependence and be habit-forming if taken for an extended period of time, which means that the body has gotten used to them and may experience withdrawal symptoms if they are abruptly stopped. Withdrawal symptoms can include runny nose, sweating, goose bumps, diarrhea, abdominal cramping, rapid heartbeat, difficulty sleeping, and nervousness. Please dispose of unused and medications per pharmacy guidance. Test Results Laboratory or Other Results This Visit (last charted value for your 09/30/2021 visit) Hematology 09/30/2021 5:11 PM WBC: 7.1 K/uL -- Normal range between ( 4.5 and 10.5 ) RBC: 3.97 Million/uL -- Normal range between ( 3.93 and 5.22 ) Hct: 38.8 % -- Normal range between ( 34.1 and 44.9 ) Hgb: 11.8 g/dL -- Normal range between ( 11.2 and 15.7 ) Platelet Count: 180 K/uL -- Normal range between ( 163 and 369 ) MCH: 29.7 pg -- Normal range between ( 25.6 and 32.2 ) MCHC: 30.4 Gram/dL -- Normal range between ( 32.2 and 36.5 ) MCV: 97.7 fL -- Normal range between ( 79.0 and 94.8 ) Slide Review: No Eos %: 0.4 % -- Normal range between ( 0.0 and 7.0 ) [place] #: 0.49 K/uL -- Normal range between ( 0.16 and 1.00 ) Eos #: 0.03 x10(3)/uL -- Normal range between ( 0.00 and 0.80 ) [place] %: 6.9 % -- Normal range between ( 3.0 and 9.0 ) Baso %: 0.3 % -- Normal range between ( 0.0 and 1.5 ) Baso #: 0.02 x10(3)/uL -- Normal range between ( 0.00 and 0.20 ) RDW: 13.5 % -- Normal range between ( 11.7 and 14.9 ) Neut %: 73.7 % -- Normal range between ( 34.0 and 71.0 ) Neut #: 5.23 K/uL -- Normal range between ( 1.56 and 6.13 ) Lymph %: 17.6 % -- Normal range between ( 19.3 and 53.1 ) Lymph #: 1.25 x10(3)/uL -- Normal range between ( 1.00 and 3.90 ) MPV: 9.9 fL -- Normal range between ( 9.4 and 12.4 ) IG#: 0.08 x10(3)/uL -- Normal range between ( 0.00 and 0.05 ) IG%: 1.10 % -- Normal range between ( 0.00 and 0.60 ) nRBC: 0.020 -- Normal range between ( 0.000 and 0.012 ) General Chemistry 09/30/2021 7:06 PM Creatinine Level: 0.70 mg/dL -- Normal range between ( 0.55 and 1.02 ) Sodium Level: 140 mmol/L -- Normal range between ( 136 and 146 ) Potassium Level: 4.7 mmol/L -- Normal range between ( 3.5 and 5.1 ) Chloride Level: 108 mmol/L -- Normal range between ( 102 and 112 ) Carbon Dioxide Level: 30 mmol/L -- Normal range between ( 21 and 32 ) Bun/Creatinine: 17.1 -- Normal range between ( 8.0 and 20.0 ) Calcium Level: 9.3 mg/dL -- Normal range between ( 8.4 and 10.1 ) eGFR : >60 mL/min/1.73m2 eGFR NonAfrican: >60 mL/min/1.73m2 Glucose Level: 95 mg/dL -- Normal range between ( 74 and 106 ) Blood Urea Nitrogen: 12 mg/dL -- Normal range between ( 7 and 22 ) Cardiac Specific Markers 09/30/2021 7:06 PM ProBNP: 583 pg/mL -- Normal range between ( 0 and 125 ) Education Materials Community-Acquired Pneumonia, Adult Pneumonia is a lung infection that causes inflammation and the buildup of mucus and fluids in the lungs. This may cause coughing and difficulty breathing. Community-acquired pneumonia is pneumonia that develops in people who are not, and have not recently been, in a hospital or other health care facility. Usually, pneumonia develops as a result of an illness that is caused by a virus, such as the common cold and the flu (influenza). It can also be caused by bacteria or fungi. While the common cold and influenza can pass from person to person (are contagious), pneumonia itself is not considered contagious. What are the causes? This condition may be caused by: ??? Viruses. ??? Bacteria. ??? Fungi, such as molds or mushrooms. What increases the risk? The following factors may make you more likely to develop this condition: ??? Having certain medical conditions, such as: ? A long-term (chronic) disease, which may include chronic obstructive pulmonary disease (COPD), asthma, heart failure, cystic fibrosis, diabetes, kidney disease, sickle cell disease, and human immunodeficiency virus (HIV). ? A condition that increases the risk of breathing in (aspirating) mucus and other fluids from your mouth and nose. ? A weakened body defense system (immune system). ??? Having had your spleen removed (splenectomy). The spleen is the organ that helps fight germs and infections. ??? Not cleaning your teeth and gums well (poor dental hygiene). ??? Using tobacco products. ??? Traveling to places where germs that cause pneumonia are present. ??? Being near certain animals, or animal habitats, that have germs that cause pneumonia. ??? Being older than 65 years of age. What are the signs or symptoms? Symptoms of this condition include: ??? A dry cough or a wet (productive) cough. ??? A fever. ??? Sweating or chills. ??? Chest pain, especially when breathing deeply or coughing. ??? Fast breathing, difficulty breathing, or shortness of breath. ??? Tiredness (fatigue). ??? Muscle aches. How is this diagnosed? This condition may be diagnosed based on your medical history or a physical exam. You may also have tests, including: ??? Chest X-rays. ??? Tests of the level of oxygen and other gases in your blood. ??? Tests of: ? Your blood. ? Mucus from your lungs (sputum). ? Fluid around your lungs (pleural fluid). ? Your urine. If your pneumonia is severe, other tests may be done to learn more about the cause. How is this treated? Treatment for this condition depends on many factors, such as the cause of your pneumonia, your medicines, and other medical conditions that you have. For most adults, pneumonia may be treated at home. In some cases, treatment must happen in a hospital and may include: ??? Medicines that are given by mouth (orally) or through an IV, including: ? Antibiotic medicines, if bacteria caused the pneumonia. ? Medicines that kill viruses (antiviral medicines), if a virus caused the pneumonia. ??? Oxygen therapy. Severe pneumonia, although rare, may require the following treatments: ??? Mechanical ventilation.This procedure uses a machine to help you breathe if you cannot breathe well on your own or maintain a safe level of blood oxygen. ??? Thoracentesis. This procedure removes any buildup of pleural fluid to help with breathing. Follow these instructions at home: Medicines ??? Take [id number] and prescription medicines only as told by your health care provider. ??? Take cough medicine only if you have trouble sleeping. Cough medicine can prevent your body from removing mucus from your lungs. ??? If you were prescribed an antibiotic medicine, take it as told by your health care provider. Do not stop taking the antibiotic even if you start to feel better. Lifestyle ??? Do not drink alcohol. ??? Do not use any products that contain nicotine or tobacco, such as cigarettes, e-cigarettes, and chewing tobacco. If you need help quitting, ask your health care provider. ??? Eat a healthy diet. This includes plenty of vegetables, fruits, whole grains, low-fat dairy products, and lean protein. General instructions ??? Rest a lot and get at least 8 hours of sleep each night. ??? Sleep in a partly upright position at night. Place a few pillows under your head or sleep in a reclining chair. ??? Return to your normal activities as told by your health care provider. Ask your health care provider what activities are safe for you. ??? Drink enough fluid to keep your urine pale yellow. This helps to thin the mucus in your lungs. ??? If your throat is sore, gargle with a salt???water mixture 3???4 times a day or as needed. To make a salt???water mixture, completely dissolve ?1 tsp (3???6 g) of salt in 1 cup (237 mL) of warm water. ??? Keep all follow-up visits as told by your health care provider. This is important. How is this prevented? You can lower your risk of developing community-acquired pneumonia by: ??? Getting the pneumonia vaccine. There are different types and schedules of pneumonia vaccines. Ask your health care provider which option is best for you. Consider getting the pneumonia vaccine if: ? You are older than 65 years of age. ? You are 19???65 years of age and are receiving cancer treatment, have chronic lung disease, or have other medical conditions that affect your immune system. Ask your health care provider if this applies to you. ??? Getting your influenza vaccine every year. Ask your health care provider which type of vaccine is best for you. ??? Getting regular dental checkups. ??? Washing your hands often with soap and water for at least 20 seconds. If soap and water are not available, use hand pencil maker. Contact a health care provider if you have: ??? A fever. ??? Trouble sleeping because you cannot control your cough with cough medicine. Get help right away if: ??? Your shortness of breath becomes worse. ??? Your chest pain increases. ??? Your sickness becomes worse, especially if you are an older adult or have a weak immune system. ??? You cough up blood. These symptoms may represent a serious problem that is an emergency. Do not wait to see if the symptoms will go away. Get medical help right away. Call your local emergency services (911 in the [place] Do not drive yourself to the hospital. Summary ??? Pneumonia is an infection of the lungs. ??? Community-acquired pneumonia develops in people who have not been in the hospital. It can be caused by bacteria, viruses, or fungi. ??? This condition may be treated with antibiotics or antiviral medicines. ??? Severe pneumonia may require a hospital stay and treatment to help with breathing. This information is not intended to replace advice given to you by your health care provider. Make sure you discuss any questions you have with your health care provider. Document Revised: 03/03/2020 Document Reviewed: 03/03/2020 [employer] Patient Education ?? 2020 [employer]. Emergency Awareness and Preventative Care STROKE is an EMERGENCY Every Minute Counts Act FAST and Check for these signs: FACE Does the face look uneven? ARM Does one arm drift down? SPEECH Does their speech sound strange? TIME Call at any sign of stroke Stroke Risk Factors Atrial Fibrillation (irregular heartbeat) Diabetes Family history of stroke Heart Disease Heavy alcohol use High Blood Pressure High Cholesterol Physical inactivity and obesity Smoking Cigarette Smoking The facts are clear, cigarette smoking will shorten your life. Smoking can cause many illnesses along the way. As a healthcare provider, we recommend that you stop smoking. Assistance with quitting is available by contacting 0-960-GVCLNOW. This is a free resource providing counseling, support, and referral. Or you may contact your personal physician. [place] Suicide Prevention Lifeline: The National Suicide Prevention Lifeline is a national network of local crisis centers that provides free and confidential emotional support to people in suicidal crisis or emotional distress 24 hours a day, 7 days a week. Don't Wait! Stop a Heart Attack Before it Starts What is a heart attack? A heart attack is damage or to a part of the heart from severely decreased or lack of blood flow to the heart. Over time, arteries can become narrow from the buildup of fat and cholesterol, which is called plaque. The plaque can rupture causing a blood clot to form. When the blood clot forms, the artery can become severely narrowed or completely blocked, causing a heart attack. Heart attack is the leading cause of in the [place]. 85% of muscle damage occurs within the first 2 hours. Delay in the recognition of heart attack symptoms increases the chances of . Know the early symptoms of a heart attack: Nausea Feeling of fullness in chest Jaw Pain Pain that travels down one or both arms Fatigue/being tired Anxiety Back Pain Chest pressure, squeezing, or discomfort Shortness of breath Sweating, or a cold sweat Feeling of impending doom There are unusual signs of a heart attack, too! Women, the elderly, and diabetics may present with atypical symptoms: Fainting/dizziness Weakness Confusion Risk Factors for a Heart Attack Some heart disease risk factors, such as age and family history, cannot be changed. Others, like smoking and lack of exercise, can be changed. Smoking High Cholesterol High Blood Pressure Family History Obesity Age Gender (Males are at higher risk) Lack of Exercise Diabetes Diet Stress Excessive Alcohol Intake If you or someone you know is experiencing the signs and symptoms of a heart attack, DON???T DELAY. Call immediately and seek help. If someone collapses, perform CPR! Do not attempt to drive if you are having symptoms of heart attack. Hands-Only CPR Why Hands-Only CPR? Hands-Only CPR has been shown to be as effective as conventional CPR for cardiac arrests that occur outside of a hospital. Survival depends on immediately receiving CPR from someone nearby. How do you perform Hands-Only CPR? There are two easy steps: Call 9-1-1 if you see a teen or adult collapse Push hard and fast in the center of the chest at a beat of 100 beats per minute. Save a life! 4 WAYS TO GET AHEAD OF SEPSIS SEPSIS is a MEDICAL EMERGENCY. Time matters! Infections put you and your family at risk for a life-threatening condition called sepsis. Sepsis is the body's extreme response to an infection. It is life-threatening, and without timely treatment, sepsis can rapidly lead to tissue damage, organ failure, and . Sepsis happens when an infection you already have-in your skin, lungs, urinary tract or somewhere else-triggers a chain reaction throughout your body. 1 PREVENT INFECTIONS Take good care of chronic conditions. Talk to your doctor about getting the recommended vaccines. 2 PRACTICE GOOD HYGIENE Wash your hands frequently. Keep cuts or open sores clean and covered until they are healed. 3 KNOW THE SYMPTOMS Confusion or disorientation Shortness of breath High heart rate Fever, shivering, or feeling very cold Extreme pain or discomfort Clammy or sweaty skin 4 ACT FAST Get medical care IMMEDIATELY if you suspect sepsis or if you have an infection that is not getting better or is getting worse. To learn more about sepsis and how to prevent infections, visit www.cdc.gov/sepsis. The examination and treatment you have received in the Emergency Department has been done to provide an appropriate evaluation and stabilizing treatment on an emergency basis only. Given the limited resources, it is not meant to be a substitute for complete medical care. The follow-up doctor you named will receive a copy of your records and all test reports. IT IS IMPORTANT THAT YOU SCHEDULE A FOLLOW-UP APPOINTMENT AND ARE RE-EVALUATED. You should report any new complaints, symptoms, or remaining problems at that time. IT IS IMPOSSIBLE FOR THE EMERGENCY DEPARTMENT TO RECOGNIZE AND TREAT ALL ELEMENTS OF INJURY OR ILLNESS IN A SINGLE VISIT. If you have been referred to a specialist physician, it means that we believe you may have a condition that requires the expertise of a specialist. These physicians work in partnership with the hospital and have agreed to see referred patients in their office for further evaluation. KEEP IN MIND THAT THE SPECIALIST HAS HIS/HER OWN OFFICE POLICIES WHICH MAY REQUIRE PROPER INSURANCE OR PAYMENT UP FRONT BEFORE THE SPECIALIST WILL SEE YOU. It is your responsibility to call the specialist physician to make an appointment. We do not have the ability to refer patients to specialists/physicians that work with specific insurance companies. Please be advised that all financial charges or billing practices are determined by that practice, not the hospital. If your insurance company requires that you see a specialist from their approved list, it is your responsibility to contact your insurance company to make those arrangements. It is also your responsibility to follow any other requirements of your insurance company necessary to obtain coverage for claims submitted. We will bill your insurance; however, you are responsible today for any co-pay amounts. You will receive a separate bill for any services you may have received including: emergency, radiology, or pathology physicians. Patient Name:CARIN LUCERO I have received this information and was given the opportunity to ask questions. Patient/Ultrasound Tech Name: Patient/Ultrasound Tech Signature: Relationship to Patient: Clinician/Hospital Ultrasound Tech Signature: Please Provide a Telephone Number Where You Can Be Reached: Is it Permissible To Leave a Message? Date: documented in this encounter Plan of Treatment Not on file documented as of this encounter Visit Diagnoses Not on filedocumented in this encounter
--- OUTSIDE RECORDS SUMMARY | 2024-12-07 00:24 | XMS_ITS | Encounter Summary ---
Author Organization [employer] ([place], [place], [place], [place]) Address [address] [place] [address] Care Team Providers Care Ux Information Architect Name Role Phone Unavailable Primary Care Provider Unavailabl e Encounter Details Date Type Department Care Team (Late st Contact Info) Description 08/19/2021 Transcribed Document [facility] [place] Family Medicine [address] [place] [address] ProviderMaría MD [address] [place] [address] Social History Tobacco Use Types [...] Cerner Conversion Note - Historical ProviderMD - 08/19/2021 5:00 AM CDT Chart Check - Review Order Profile Entered On: 08/19/2021 6:03 EDT Performed On: 08/19/2021 5:00 EDT by Apryl Santos RN - International Chart Check Powerplans Initiated/Discontinued as Appropriate : Yes All Active Orders Reviewed : Yes Apryl Santos RN - Karlos - 08/19/2021 6:03 EDT documented in this encounter Plan of Treatment Not on file documented as of this encounter Visit Diagnoses Not on filedocumented in this encounter
--- OUTSIDE RECORDS SUMMARY | 2024-12-07 00:24 | XMS_ITS | Encounter Summary ---
Author Organization [employer] ([place], [place], [place], [place]) Address [address] [place] [address] Care Team Providers Care Gang Mower Operator Name Role Phone Unavailable Primary Care Provider Unavailabl e Encounter Details Date Type Department Care Team (Late st Contact Info) Description 09/30/2021 Transcribed Document [facility] [place] [address] ProviderMaría MD [address] [place] [address] Social History Tobacco Use Types [...] Conversion Note - Historical ProviderMD - 09/30/2021 4:19 PM CDT ED Triage Entered On: 09/30/2021 16:29 EDT Performed On: 09/30/2021 16:24 EDT by Leo Belle RN ED Triage Across the Room Chief Complaint : arrives via ems with cough/congestion/soa onset this morning. trach stoma with o2 sa 96% on room air Triage Date/Time : 09/30/2021 16:24 EDT Leo Belle RN - 09/30/2021 16:24 EDT DCP GENERIC CODE Tracking Acuity : 2 - Emergent Tracking Group : [facility] ED Leo Belle RN - 09/30/2021 16:24 EDT Mode of Arrival : Stretcher Transported to ED by : Ambulance/ALS EMS Service : [facility] To Room Via : Stretcher Accompanied By : Unaccompanied ED Vital Signs : Document Height & Weight : Document ED Allergies : Document ED Reason for Visit : Document Leo Belle RN - 09/30/2021 16:24 EDT Infectious Disease History Does patient have symptoms of COVID-19? : Yes Tested for COVID19 in the past 14 days : No, Patient stated Does the Patient state known exposure to a COVID-19 positive case in the last 14 days? : No Patient Vaccinated for COVID-19 : Not vaccinated Does Patient want a COVID-19 Vaccine? : No Leo Belle RN - 09/30/2021 16:24 EDT Infectious Disease Risk Screening Grid Cough < 2 wks of unknown origin : Yes Cough > 2 weeks : NO Blood in Sputum : NO Fever or self-reported Fever : NO Rash of unknown origin : NO Headache : NO Stiff neck : NO Night Sweats : NO Unexplained Weight Loss : NO Diarrhea (3 episode per day) : NO Leo Belle RN - 09/30/2021 16:24 EDT Physical contact outside [place] in the last 30 days : No Hospitalized in Foreign Country : No Infectious Disease History : Chicken pox/Shingles INF Disease TB Screening Calc : 1 INF Disease Recent Travel Calc : 0 Leo Belle RN - 09/30/2021 16:24 EDT Vital Signs ED Temperature Source : Temporal artery scanning Temperature Mode : Fahrenheit Temperature, Fahrenheit : 98 Deg F Clinical Temperature, C : 36.7 Deg C Oxygen Therapy Mode : Room air Peripheral Pulse Rate : 90 bpm Respiratory Rate : 28 Breaths/Min (HI) Systolic Blood Pressure : 168 mmHg (HI) Diastolic Blood Pressure : 84 mmHg Oxygen Saturation : 96 % Leo Belle RN - 09/30/2021 16:24 EDT Allergy (As Of: 09/30/2021 16:29:08 EDT) Allergies (Active) metoclopramide Estimated Onset Date: Unspecified ; Created By: Contributor_[email or web address]; Reaction Status: Active ; Category: Drug ; Substance: metoclopramide ; Type: Allergy ; Severity: Unknown ; Updated By: Deepti_EDGARDO aldana; Reviewed Date: 09/30/2021 16:26 EDT Diagnosis Control ED (As Of: 09/30/2021 16:29:08 EDT) Problems(Active) History of obstructive sleep apnea (IMO :[id number] ) Name of Problem: History of obstructive sleep apnea ; Recorder: SYSTEM, SYSTEM; Confirmation: Confirmed ; Classification: Medical ; Code: [id number] ; Last Updated: 08/15/2021 3:13 EDT ; Life Cycle Date: 08/15/2021 ; Life Cycle Status: Active ; Vocabulary: IMO Suicide risk (IMO :15405 ) Name of Problem: Suicide risk ; Recorder: SYSTEM, SYSTEM; Confirmation: Confirmed ; Classification: Medical ; Code: 73434 ; Last Updated: 08/15/2021 3:13 EDT ; Life Cycle Date: 08/15/2021 ; Life Cycle Status: Active ; Vocabulary: IMO Diagnoses(Active) Shortness of breath Date: 09/30/2021 ; Diagnosis Type: Reason For Visit ; Confirmation: Complaint of ; Clinical Dx: Shortness of breath ; Classification: Medical ; Clinical Service: Non-Specified ; Code: PNED ; Probability: 0 ; Diagnosis Code: [id number] ED Height and Weight Height Source : Stated Height Entry Format : [place] Height, Feet : 5 ft(Converted to: 152 cm, 60 Inch) Height, Inches : 1 Inch(Converted to: 0 ft 1 Inch, 2.54 cm) Clinical Height : 154.94 cm Weight Source, ED : Critical estimated dosing weight Weight Entry Format : [place] Weight, Pounds : 330 lb Clinical Dosing Weight : 150 kg Body Surface Area (BSA) : 2.34 m2 Body Mass Index : 62.5 kg/m2 (>HHI) [place] Body Weight (IBW) : 47.45 kg Leo Belle RN - 09/30/2021 16:24 EDT documented in this encounter Plan of Treatment Not on file documented as of this encounter Visit Diagnoses Not on filedocumented in this encounter
--- OUTSIDE RECORDS SUMMARY | 2024-12-07 00:24 | XMS_ITS | Encounter Summary ---
Author Organization [employer] ([place], [place], [place], [place]) Address [address] [place] [address] Care Team Providers Care It Specialist Name Role Phone Unavailable Primary Care Provider Unavailabl e Encounter Details Date Type Department Care Team (Late st Contact Info) Description 09/30/2021 Transcribed Document [facility] [place] [address] ProviderMaría MD [address] [place] [address] Social History Tobacco Use Types Packs/Day [...] Conversion Note - Historical ProviderMD - 09/30/2021 5:01 PM CDT Patient: CARIN LUCERO Age: 46 years Sex: Female : 1975 Associated Diagnoses: Cough; Atypical pneumonia Author: ARNOLD RICHARD MD Basic Information History source: Patient. Arrival mode: Private vehicle. History limitation: None. Additional information: Chief Complaint from Nursing Triage Note : Chief Complaint 09/30/2021 16:24 EDT Chief Complaint arrives via ems with cough/congestion/soa onset this morning. trach stoma with o2 sa 96% on room air . History of Present Illness This is a 46-year-old female with a past medical history significant for obstructive sleep apnea requiring trach, morbid obesity, hypertension, congestive heart failure who presents to the emergency department for evaluation of cough since this morning. She feels like the cough is worse when she lies flat, better with sitting up. She has been trying to use home suction, but still feels short of breath with coughing. She does not have any chest pain. No recent fevers. She states that she takes a diuretic, but does not feel like she has been urinating very much. No dysuria. Review of Systems Additional review of systems information: 10 point review of systems reviewed and negative except as stated in history of present illness . Health Status Allergies: Allergic Reactions (Selected) Unknown Metoclopramide- No reactions were documented. . Medications: (Selected) Inpatient Medications Ordered Tessalon: 100 mg, Oral, 1-Time Prescriptions Prescribed carvedilol 12.5 mg oral tablet: 1 Tab, Oral, BID, for 30 Day(s), 60 Tab, 0 Refill(s) Documented Medications Documented ProAir HFA 90 mcg/inh inhalation aerosol: 2 Puff, Inhalation, Q6H, PRN: Wheezing, 0 Refill(s) SUMAtriptan 100 mg oral tablet: [...] Replaces 800mg dose, 90 Cap, 0 Refill(s) lamoTRIgine 100 mg oral tablet: 1 Tab, Oral, Daily, 30 Each, 0 Refill(s) levothyroxine 25 mcg (0.025 mg) oral tablet: 1 Tab, Oral, Daily, 30 Each, 0 Refill(s) omeprazole 40 mg oral delayed release capsule: 1 Cap, Oral, Daily, before a meal, 30 Cap, 0 Refill(s) ziprasidone 40 mg oral capsule: 1 Cap, Oral, BID, 180 Cap, 0 Refill(s) , per nurse's notes. Immunizations: Per nurse's notes. Past Medical/ Family/ Social History Medical history Reviewed as documented in chart. Surgical history: Reviewed as documented in chart. Family history: Reviewed as documented in chart. Social history: Reviewed as documented in chart. Problem list: Active Problems (2) History of obstructive sleep apnea Suicide risk , per nurse's notes. Physical Examination Vital Signs Vital Signs/Vital Measures 09/30/2021 16:24 EDT Systolic Blood Pressure 168 mmHg HI Diastolic Blood Pressure 84 mmHg Temperature Source Temporal artery scanning Temperature Mode Fahrenheit Temperature, Fahrenheit 98 Deg F Clinical Temperature, C 36.7 Deg C Peripheral Pulse Rate 90 bpm Respiratory Rate 28 Breaths/Min HI Oxygen Saturation 96 % Oxygen Therapy Mode Room air . Per nurse's notes. General: Alert, no acute distress. Skin: Warm, dry. Head: Normocephalic. Neck: Supple. Ears, nose, mouth and throat: Oral mucosa moist. Cardiovascular: Regular rate and rhythm, No murmur. Respiratory: Respirations are non-labored, breath sounds are equal, Bilateral mild wheezes. Gastrointestinal: Soft, Nontender, Non distended. Neurological: Alert and oriented to person, place, time, and situation, normal speech observed, normal coordination observed. Psychiatric: Cooperative. Medical Decision Making Documents reviewed: Emergency department nurses' notes, prior records. Electrocardiogram: Time 09/30/2021 16:27:00, rate 84, normal sinus rhythm, normal AR & QRS intervals, EP Interp, No STEMI. Results review: Lab results : Lab Results 09/30/2021 19:06 EDT Sodium Level 140 mmol/L Potassium Level 4.7 mmol/L Chloride Level 108 mmol/L Carbon Dioxide Level 30 mmol/L Glucose Level 95 mg/dL Blood Urea Nitrogen 12 mg/dL Creatinine Level 0.70 mg/dL eGFR >60 mL/min/1.73m2 eGFR NonAfrican >60 mL/min/1.73m2 Bun/Creatinine 17.1 Calcium Level 9.3 mg/dL ProBNP 583 pg/mL HI 09/30/2021 17:11 EDT WBC 7.1 K/uL RBC 3.97 Million/uL Hgb 11.8 g/dL Hct 38.8 % MCV 97.7 fL HI MCH 29.7 pg MCHC 30.4 Gram/dL LOW Platelet Count 180 K/uL MPV 9.9 fL RDW 13.5 % Neut % 73.7 % HI Neut # 5.23 K/uL Lymph % 17.6 % LOW Lymph # 1.25 x10(3)/uL [place] % 6.9 % [place] # 0.49 K/uL Eos % 0.4 % Eos # 0.03 x10(3)/uL Baso % 0.3 % Baso # 0.02 x10(3)/uL nRBC 0.020 HI Slide Review No IG# 0.08 x10(3)/uL HI IG% 1.10 % HI . Chest X-Ray: Interpretation by Emergency Physician, Mild pulmonary edema. Notes: Patient arrived 96% on room air with trach. Respiratory was able to suction clear, frothy material from the trach. Patient feels a little bit better, but still is frequently coughing. Chest x-ray does not show any pneumonia, but does show some mild pulmonary edema. No fever or significant leukocytosis that would suggest infectious process. She is wheezy, and I do wonder about reactive airway disease as a source of her cough. She was given a DuoNeb and Solu-Medrol here, reports relief in the past with Oumar Mccray will have ordered that as well. Awaiting further labs. Patient care transferred to Dr. Reed at 1900.. Reexamination/ Reevaluation Time: 09/30/2021 20:16:00 . Notes: On reevaluation, patient is feeling much better. No significant hypoxia. Findings consistent with bronchitis, possible atypical pneumonia. Patient be discharged a short course antitussives and antibiotics. Given strict return precautions. Needs to follow-up with PCP in 48 hours. Verbalized understanding.. Impression and Plan Diagnosis Cough - Discharge, Medical Atypical pneumonia - Discharge, Medical Cough - Discharge, Medical Plan Condition: Improved, Stable. Disposition: Discharged Admit/Transfer/Discharge: Discharge (Order): Start: 09/30/2021 20:28 EDT, Discharge to: Home , Patient care transitioned to: Time: 09/30/2021 19:00:00, TONJA REED MD. Prescriptions: Prescription [facility] Pharm[facility]: doxycycline monohydrate 100 mg oral tablet (Prescribe): 1 Tab, Oral, BID, for 10 Day(s), 20 Tab, 0 Refill(s) Tussionex [employer]Kinetic 10 mg-8 mg/5 mL oral suspension, extended release (Prescribe): 5 mL, Oral, Q12H, for 5 Day(s), 50 mL, 0 Refill(s) , [facility] [id number] . Patient was given the following educational materials: Community-Acquired Pneumonia, Adult. Follow up with: EMY [facility]USA Within 2 to 3 days. Counseled: Patient, Family, Regarding diagnosis, Regarding diagnostic results, Regarding treatment plan, Patient indicated understanding of instructions. documented in this encounter Plan of Treatment Not on file documented as of this encounter Visit Diagnoses Not on filedocumented in this encounter
--- OUTSIDE RECORDS SUMMARY | 2024-12-07 00:24 | XMS_ITS | Encounter Summary ---
Author Organization [employer] ([place], [place], [place], [place]) Address [address] [place] [address] Care Team Providers Care Booking Officer Name Role Phone Unavailable Primary Care Provider Unavailabl e Encounter Details Date Type Department Care Team (Late st Contact Info) Description 08/19/2021 Transcribed Document [facility] [address] [place] [address] ProviderMaría MD [address] [place] [address] Social History Tobacco Use Types [...] Conversion Note - Historical ProviderMD - 08/19/2021 9:00 AM CDT UM Authorization Entered On: 08/19/2021 9:01 EDT Performed On: 08/19/2021 9:00 EDT by VASYL HIGGINS, EWA-Call Center AssistantHourly Shift Manager Insurance Authorization Authorization and Policy Numbers : Insurance 1 Health Plan: [facility] Policy Number: [id number] Authorization Number: Insurance Primary Name : [facility] Policy Number: [id number] Authorization Status-Primary : Admit approved Reference Number-Primary : [id number] Authorization Number-Primary : [id number] Number of Days Authorized-Primary : 4 Day(s) Authorized Service Begin Date-Primary : 08/14/2021 EST Authorized Service End Date-Primary : 08/18/2021 EDT Authorization Comments-Primary : c/s review for inpt faxed wo to [facility] via [employer]. Historical Authorization Comments-Primary : Comment 1: inpt admit approved per fax from [facility] 08/16/21 auth# [id number] NRD 08-19-21 (EBEN HURTADO, Advertising Agency Manager 08/16/2021 12:52) Comment 2: Clinicals submitted on [facility] website for IP approval (ROBERTO CARLOS CISNEROS RN 08/15/2021 12:09) VASYL HIGGINS, EWA-Call Center Assistant - 08/19/2021 9:00 EDT documented in this encounter Plan of Treatment Not on file documented as of this encounter Visit Diagnoses Not on filedocumented in this encounter
--- OUTSIDE RECORDS SUMMARY | 2024-12-07 00:24 | XMS_ITS | Encounter Summary ---
Author Organization [employer] ([place], [place], [place], [place]) Address [address] [place] [address] Care Team Providers Care Technician Automated Equipment Name Role Phone Unavailable Primary Care Provider Unavailabl e Encounter Details Date Type Department Care Team (Late st Contact Info) Description 08/19/2021 Transcribed Document [facility] [address] [place] [address] ProviderMaría MD [address] [place] [address] Social History Tobacco Use Types [...] Conversion Note - Historical ProviderMD - 08/19/2021 4:00 AM CDT Pain Assessment Entered On: 08/19/2021 6:02 EDT Performed On: 08/19/2021 4:59 EDT by Apryl Santos RN - International Intervention Information: acetaminophen Performed by Apryl Santos RN - International on 08/19/2021 03:59:00 EDT acetaminophen,1000mg Oral Pain Assessment Pain Assessment : Initial assessment Pain Scale Goal : 2 Pain Intervention, Drug : Medicated Pain Improved by Intervention : Yes Apryl Santos RN - International - 08/19/2021 6:02 EDT documented in this encounter Plan of Treatment Not on file documented as of this encounter Visit Diagnoses Not on filedocumented in this encounter
--- OUTSIDE RECORDS SUMMARY | 2024-12-07 00:24 | XMS_ITS | Encounter Summary ---
Author Organization [employer] ([place], [place], [place], [place]) Address [address] [place] [address] Care Team Providers Care Seal Mixing Operator Name Role Phone Unavailable Primary Care Provider Unavailabl e Encounter Details Date Type Department Care Team (Late st Contact Info) Description 08/23/2021 Transcribed Document [facility] [place] [facility] [place] [address] ProviderMaría MD [address] [place] [address] Social History Tobacco Use Types [...] Cerner Conversion Note - Historical ProviderMD - 08/23/2021 6:36 AM CDT UM Authorization Entered On: 08/23/2021 6:38 EDT Performed On: 08/23/2021 6:36 EDT by Zara Donald, Natural Resources Engineer Primary Insurance Authorization Authorization and Policy Numbers : Insurance 1 Health Plan: [facility] Policy Number: [id number] Authorization Number: Insurance Primary Name : [facility] Policy Number: [id number] Authorization Status-Primary : Approved Auth/Referral Contact Name-Primary : [place] Reference Number-Primary : [id number] Authorization Number-Primary : [id number] Number of Days Authorized-Primary : 9 Day(s) Authorized Service Begin Date-Primary : 08/14/2021 EST Authorized Service End Date-Primary : 08/23/2021 EDT Authorization Comments-Primary : Discharge summary as well as continued stay clinical 08/16 - discharge faxed. Historical Authorization Comments-Primary : Comment 1: Authorized per fax 08/19/21 @ 0837. This request for inpatient services has been approved x10 days. Next review due 08/24/21. -Efrem Gillette RN. (Zara Donald, Natural Resources Engineer 08/19/2021 11:33) Comment 2: c/s review for inpt faxed wo to [facility] via [employer]. (VASYL HIGGINS, EWA-Per Diem Physical Therapist Assistant 08/19/2021 09:00) Comment 3: inpt admit approved per fax from [facility] 08/16/21 auth# [id number] NRD 08-19-21 (EBEN HURTADO, Account Maintenance Representative 08/16/2021 12:52) Comment 4: Clinicals submitted on [facility] website for IP approval (ROBERTO CARLOS CISNEROS RN 08/15/2021 12:09) Zara Donald, Natural Resources Engineer - 08/23/2021 6:36 EDT Electronically signed by Roman Eckert Conversion Residential Remodeling Subcontractor Cerner at 09/18/2022 9:25 AM CDT documented in this encounter Plan of Treatment Not on file documented as of this encounter Visit Diagnoses Not on filedocumented in this encounter
--- OUTSIDE RECORDS SUMMARY | 2024-12-07 00:24 | XMS_ITS | Encounter Summary ---
Author Organization [employer] ([place], [place], [place], [place]) Address [address] [place] [address] Care Team Providers Care Thread Singer Name Role Phone Unavailable Primary Care Provider Unavailabl e Encounter Details Date Type Department Care Team (Late st Contact Info) Description 08/14/2021 Transcribed Document [facility] [place] [facility] [place] [address] ProviderMaría MD [address] [place] [address] Social History Tobacco Use Types [...] Conversion Note - Historical ProviderMD - 08/14/2021 7:11 PM TECHNICAL SERVICES REPRESENTATIVE Patient: CARIN LUCERO Age: 46 years Sex: Female : 1975 Associated Diagnoses: Abdominal pain; Infection of PEG site Author: TONJA MARIN MD-EMR Basic Information Additional information: Chief Complaint from Nursing Triage Note : Chief Complaint 08/14/2021 18:55 EST Chief Complaint pt c/o PEG tube infection, just dc'd from hospital on monday, pt also has a trach placed last month due to resp arrest. trach is also making inspiratory wheezing sounds, sounds like it may be congested. . History of Present Illness The patient presents with abdominal pain. The onset was 1 weeks ago. The course/duration of symptoms is constant and worsening. The character of symptoms is achy and crampy. Radiating pain: none. Risk factors consist of recent surgery. Associated symptoms: fever. 46-year-old female here with complaints about feeding tube. Patient says she had respiratory arrest last month ago and was admitted to [facility]. Says she has sleep apnea and her CO2 was greater than 100. She was admitted and have a trach and PEG placed. She says she was transferred to [facility] in [facility] and was just discharged 3 days ago. Says she has been having pain redness and drainage from her PEG tube since. She says it feels like it is on fire. She has an appointment with her doctor next week. She says she thought that she was going to get her PEG tube removed next week because she is able to tolerate by mouth and they told her that this was just a temporary measure.. Review of Systems Constitutional symptoms: Fever, chills, weakness, fatigue. Respiratory symptoms: Cough, No shortness of breath, Cardiovascular symptoms: Negative except as documented in HPI. Gastrointestinal symptoms: Abdominal pain, nausea, no vomiting, no diarrhea, no constipation. Neurologic symptoms: Negative except as documented in HPI. Additional review of systems information: All other systems reviewed and otherwise negative. Health Status Allergies: Allergic Reactions (Selected) Unknown Metoclopramide- No reactions were documented.. Medications: (Selected) Inpatient Medications Ordered Normal Saline Flush: 10 mL, IV Push, See Comment Sodium Chloride 0.9% bolus: 1,000 mL, 1,000 mL/Hr, IV Piggyback, 1-Time Zosyn: 3.375 Gram, IV Piggyback, Q6HInt Zosyn: 4.5 Gram, IV Piggyback, 1-Time Prescriptions Prescribed Bentyl 20 mg oral tablet: [...] for 10 Day(s), 20 Cap, 0 Refill(s) Wellbutrin XL 300 mg/24 hours oral tablet, extended release: Tab, Oral, [id number], 0 Refill(s) gabapentin 800 mg oral tablet: 1 Tab, Oral, TID, 270 Tab, 0 Refill(s) ondansetron 4 mg oral tablet, disintegrating: Tab, Oral, TID, 0 Refill(s) traZODone 100 mg oral tablet: 1 Tab, Oral, TID, 270 Tab, 0 Refill(s). Past Medical/ Family/ Social History Surgical history: No active procedure history items have been selected or recorded.. Family history: No family history items have been selected or recorded.. Social history: Social & Psychosocial Habits Alcohol 01/06/2017 Alcohol Use History, Social Habits No Substance Abuse 01/06/2017 Recreational Drug Use History No Tobacco 01/06/2017 Smoking Status Current every day smoker . Problem list: No qualifying data available . Physical Examination Vital Signs Vital Signs/Vital Measures 08/14/2021 18:55 EST Systolic Blood Pressure 160 mmHg HI Diastolic Blood Pressure 89 mmHg Mean Arterial Pressure (MAP)-BMDI 116 Temperature Source Oral Temperature Mode Fahrenheit Temperature, Fahrenheit 100.6 Deg F HI Clinical Temperature, C 38.1 Deg C Peripheral Pulse Rate 119 bpm HI Respiratory Rate 20 Breaths/Min Oxygen Saturation 95 % Oxygen Therapy Mode Room air . Measurements 08/14/2021 18:55 EST Height Source Stated Height Entry Format Wood Height/Length, [place] (ft) 5 ft Height/Length [place] 1 Inch CLINICALHEIGHT 154.94 cm Herrick Body Weight 47.45 kg Weight Source, ED Critical estimated dosing weight Weight Entry Format Wood Weight Slovenian lb 305 lb CLINICALWEIGHT 138.64 kg Body Surface Area (BSA) 2.26 m2 Body Mass Index 57.8 kg/m2 >HHI . Oxygen Saturation 08/14/2021 18:55 EST Oxygen Saturation 95 % . General: Alert, anxious. Skin: Warm, dry, pink, intact. Head: Normocephalic, atraumatic. Neck: Supple, trachea midline. Eye: Pupils are equal, round and reactive to light, extraocular movements are intact, normal conjunctiva. Cardiovascular: No murmur, Normal peripheral perfusion, Tachycardia. Respiratory: Lungs are clear to auscultation, respirations are non-labored, breath sounds are equal, Symmetrical chest wall expansion. Gastrointestinal: Soft, Abdomen soft with diffuse tenderness. PEG site left upper quadrant. Bandage appears saturated with purulent fluid. Minimal drainage from site, small amount of surrounding erythema., Tenderness: Generalized. Musculoskeletal: Normal ROM, normal strength. Neurological: Alert and oriented to person, place, time, and situation, No focal neurological deficit observed, normal sensory observed, normal motor observed, normal speech observed, normal coordination observed. Psychiatric: Cooperative, appropriate mood & affect. Medical Decision Making Documents reviewed: Emergency department nurses' notes, emergency department records, prior records. monitoring specialist: Time 08/14/2021 19:16:00, Rate 112, Sinus Tachycardia. Results review: Lab results : Lab Results 08/14/2021 20:15 EST Sodium Level 136 mmol/L Potassium Level 3.6 mmol/L Chloride Level 100 mmol/L LOW Carbon Dioxide Level 31 mmol/L Anion Gap 9 Glucose Level 115 mg/dL HI Blood Urea Nitrogen 17 mg/dL Creatinine Level 1.20 mg/dL HI eGFR 58 mL/min/1.73m2 LOW eGFR NonAfrican 48 mL/min/1.73m2 LOW Bun/Creatinine 14.2 Calcium Level 8.5 mg/dL Protein Total 7.2 Gram/dL Albumin Level 2.6 Gram/dL LOW Globulin 4.6 Gram/dL HI A/G Ratio 0.6 LOW Bilirubin Total 0.2 mg/dL Alk Phos 65 Units/Liter AST 12 Units/Liter ALT 19 Units/Liter Magnesium Level 1.9 mg/dL Lactic Acid Level 1.0 mmol/L ProBNP 214 pg/mL HI WBC 9.6 K/uL RBC 3.52 Million/uL LOW Hgb 10.7 g/dL LOW Hct 32.8 % LOW MCV 93.2 fL MCH 30.4 pg MCHC 32.6 Gram/dL Platelet Count 186 K/uL MPV 9.9 fL RDW 14.1 % Neut % 74.8 % HI Neut # 7.17 K/uL HI Lymph % 12.9 % LOW Lymph # 1.24 x10(3)/uL Caroline % 9.3 % HI Caroline # 0.89 K/uL Eos % 1.4 % Eos # 0.13 x10(3)/uL Baso % 0.3 % Baso # 0.03 x10(3)/uL Slide Review No IG# 0.12 x10(3)/uL HI IG% 1.30 % HI PT 9.7 Second(s) INR 0.9 PTT 27.5 Second(s) Procalcitonin <0.25 ng/mL Influenza A Negative Influenza B Negative SARS-CoV-2 (COVID19 PCR) Negative . Radiology results: Radiology Results (Last 48 hours) [id number] -- 08/14/2021 22:53 CT Abdomen Pelvis W (08/14/2021 21:28) Result: [...] to inflammation.A discrete abscess is not identified. . Procedure Discussed results with patient. Discussed CT findings. Discussed them with the radiologist as well. Will admit for further management. She started on broad-spectrum antibiotics. Impression and Plan Diagnosis Abdominal pain - Discharge, Medical Infection of PEG site - Discharge, Medical Plan Condition: Stable. Disposition: Admit Admit/Transfer/Discharge: Admit to Inpatient (Order): Start: 08/14/2021 22:53 EST, Admit reason: sepsis, peg tube infection, Estimated length of stay 2 Midnights or LONGER, Level of Care: Telemetry unit, Admitting: EDUARD DE LOS SANTOS, DO-INT. Electronically signed by Tomeka [facility] Conversion Pipeline Dispatcher Cerner at 09/18/2022 9:34 AM CDT documented in this encounter Plan of Treatment Not on file documented as of this encounter Visit Diagnoses Not on filedocumented in this encounter
--- OUTSIDE RECORDS SUMMARY | 2024-12-07 00:24 | XMS_ITS | Encounter Summary ---
Author Organization [employer] ([place], [place], [place], [place]) Address [address] [place] [address] Care Team Providers Care Manager Integration Name Role Phone Unavailable Primary Care Provider Unavailabl e Encounter Details Date Type Department Care Team (Late st Contact Info) Description 08/15/2021 Transcribed Document [facility] [place] [facility] [place] [address] ProviderMaría MD [address] [place] [address] Social History Tobacco Use Types Packs/Day Years Used Date Smoking Tobacco: Never Assessed Comments Unknown Sex and Gender Information Value Date Recorded Sex Assigned at Female 11/30/2021 3:01 PM CDT Legal Sex Female 3:01 PM CDT Gender Identity Female 11/30/2021 3:01 PM CDT Sexual Orientation Not on file documented as of this encounter Miscellaneous Notes * Cerner Conversion Note - Historical Provider, - 08/15/2021 10:47 AM CDT Treatment Intervention, PT Entered On: 08/17/2021 15:33 EDT Performed On: 08/17/2021 14:50 EDT by HEMA METCALF, LEESA General Information, PT Visit Type, PT : Treatment Note Patient Orders : Order Date Order Ordering 08/14/2021 23:19 PT Evaluation and Treatment Ordered By: EDUARD DE LOS SANTOS DO-INT 08/15/2021 10:47 PT Additional Treatment Ordered By: SONY REYNA PT Active Diagnoses : 08/14/2021 12:00 Abdominal pain 08/14/2021 12:00 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 Medical screening exam 08/14/2021 12:00 Unspecified abdominal pain Therapy Diagnosis, PT : Decreased strength Admission Date : 08/14/2021 22:53 Co-treated by, PT : Occupational Therapist Personal Devices : Personal Devices No Devices Recorded Assistive Devices : Assistive Devices No Devices Recorded General Information Comment, PT : pt s/p sepsis and PEG tube infection HEMA METCALF, PT - 08/17/2021 15:26 EDT General Status Patient Received Status : Supine in bed, HOB elevated Treatment Start Time : 08/17/2021 14:42 EDT Patient Left Status : Supine in bed, RN/PCT informed, All needs met and within reach RN/PCT Informed Comment : EWA Smith session and notified pt having questions regarding infectious dx. Treatment End Time : 08/17/2021 14:50 EDT Treatment Time : 8 Minute(s) HEMA METCALF, PT - 08/17/2021 15:26 EDT Intervention Summary O2 Pre-Intervention : trach collar O2 During Intervention : trach collar O2 Post-Intervention : trach collar Therapist Assessment Post-intervention : pt remained stable throughout session HEMA METCALF, PT - 08/17/2021 15:26 EDT Therapeutic Exercises Therapeutic Exercise Comment, PT : pt performed x10 bilateral UE exercises, x10 bilateral ankle DF/PF and SLRs. Pt declined EOB or OOB activity this date secondary to pain and frustration HEMA METCALF, PT - 08/17/2021 15:26 EDT Functional Mobility Functional MobilityComment : pt declined EOB /OOB activity HEMA METCALF, PT - 08/17/2021 15:26 EDT Gait Training/Assessment, PT Weight Bearing Status Maintained : Yes Weight Bearing Status : Full Gait Assistance Level : Unable to assess/activity not appropriate HEMA METCALF, PT - 08/17/2021 15:26 EDT Cognitive Treatment, PT Cognitive Treatment Comment : follows commands; needs reinforcement HEMA METCALF, PT - 08/17/2021 15:26 EDT Edu Topics Physical Therapy Education Grid Role of Physical Therapy : Verbalizes understanding Therapeutic Exercises : Needs further teaching HEMA METCALF, PT - 08/17/2021 15:26 EDT Indication Assesessment, PT Physical Therapy Indicated : Yes HEMA METCALF, PT - 08/17/2021 15:26 EDT Plan of Care, PT PT Tx Plan/Goals Established w Patient : Yes HEMA METCALF, PT - 08/17/2021 15:26 EDT Short Term Goals Mobility/Bed Mobility STG PT Grid Goal #1 Activity : Supine to sit Assist : Supervision or set-up Date to Meet : 08/22/2021 EDT Goal Status : Initial goal HEMA METCALF, PT - 08/17/2021 15:26 EDT Ambulation STG Grid Goal #1 Device : Walker, front wheel Distance : 100' Assist : Supervision or set-up Date to Meet : 08/22/2021 EDT Goal Status : Intial Goal CASANDRA METCALFYN, PT - 08/17/2021 15:26 EDT Care Home Goals Mobility/Bed Mobility LTG PT Grid Goal #1 Activity : Sit to stand Assist : Supervision or set-up Date to Meet : 08/29/2021 EDT Goal Status : Intial Goal HEMA METCALF, PT - 08/17/2021 15:26 EDT Ambulation LTG Grid Goal #1 Device : None Distance : 300' Assist : Supervision or set-up Date to Meet : 08/29/2021 EDT Goal Status : Intial Goal Comment : No loss of balance HEMA METCALF, PT - 08/17/2021 15:26 EDT Treatment Note Subjective Comment : pt frustrated w/ POC during admission. Reporting pain and requested bed-level activity only. RN OK'd session and notified of pt having questions for infectious disease. Patient's Response to Treatment : Stable Additional Objective Information : Pt supine in bed upon arrival. She reports increased pain and requesting bed level only. PTx/OTx encouraged OOB/EOB but pt declined. She performed UE and LE exercises actively, 10 reps bilaterally. She was able to pull herself into a long-sit in the bed and left sitting in bed w/ RN in room. Assessment : Pt was seen for PTx treatment session and tolerated the session fairly well. While she reports getting up and moving around the room, she has yet been OOB w/ PTx due to pain and increased emotions regarding POC. At this time, she is able to actively perform all exercises. She will continue to require skilled PTx in order to further assess her mobility and make appropriate discharge recommendations. Pt reports IND PLOF w/ no use of AD at home. Plan for Treatment : Cont POC RENOHEMA Dailey, PT - 08/17/2021 15:26 EDT Pain Assessment Pain Comment : pt reports being in pain; did not specify HEMA METCALF, PT - 08/17/2021 15:26 EDT Image 1 - Images currently included in the form version of this document have not been included in the text rendition version of the form. Anticipated Discharge Needs, OT/PT Anticipated Discharge to : Unable to assess at this time HEMA METCALF, PT - 08/17/2021 15:[address] [facility] PT Charges PT Therap. Exercise 15 min : 1 HEMA METCALF PT - 08/17/2021 15:26 EDT Electronically signed by Tomeka [facility] Conversion Lifestyle Director Cerner at 09/23/2022 8:15 AM CDT documented in this encounter Plan of Treatment Not on file documented as of this encounter Visit Diagnoses Not on filedocumented in this encounter
--- OUTSIDE RECORDS SUMMARY | 2024-12-07 00:24 | XMS_ITS | Encounter Summary ---
Author Organization [employer] ([place], [place], [place], [place]) Address [address] [place] [address] Care Team Providers Care Spray Drier Operator Helper Name Role Phone Unavailable Primary Care Provider Unavailabl e Encounter Details Date Type Department Care Team (Late st Contact Info) Description 08/14/2021 Transcribed Document [facility] [place] [address] [place] [address] ProviderMaría MD [address] [place] [address] Social History Tobacco Use Types [...] Conversion Note - Historical ProviderMD - 08/14/2021 9:36 PM PATIENT ACCESS REGISTRAR ED Event Note Entered On: 08/14/2021 21:37 EST Performed On: 08/14/2021 21:36 EST by LORE LUDWIG RN ED Event Note ED Event Location : Other: PEG tube dressing change ED Description of Event : Previous Peg tube secrement device removed, dressing was saturated and peg tube site has scent amount of yellow drainage. Replaced dressing with standard gauze and silk tape, cleaned site with chlorehexadine. LORE LUDWIG RN - 08/14/2021 21:36 EST Electronically signed by Tomeka [facility] Conversion Venetian Blind Tape Cutter Cerner at 09/18/2022 9:34 AM CDT documented in this encounter Plan of Treatment Not on file documented as of this encounter Visit Diagnoses Not on filedocumented in this encounter
--- OUTSIDE RECORDS SUMMARY | 2024-12-07 00:24 | XMS_ITS | Encounter Summary ---
Author Organization [employer] ([place], [place], [place], [place]) Address [address] [place] [address] Care Team Providers Care Senior Art Director Name Role Phone Unavailable Primary Care Provider Unavailabl e Encounter Details Date Type Department Care Team (Late st Contact Info) Description 08/14/2021 Transcribed Document [facility] [place] [facility] [place] [address] ProviderMaría MD [facility] [place] [address] Social History Tobacco Use Types [...] [employer]ner Conversion Note - Historical Provider, - 08/14/2021 11:19 PM INSURANCE COUNSELOR Evaluation, Occupational Therapy Entered On: 08/15/2021 15:01 EDT Performed On: 08/15/2021 9:52 EDT by JANIS PANDYA, OTR/Az General Information, OT Visit Type, OT : Initial evaluation Patient Orders : Order Date Order Ordering 08/14/2021 23:19 OT Evaluation and Treatment Ordered By: EDUARD DE LOS SANTOS DO-SREE Active Diagnoses : 08/14/2021 12:00 Abdominal pain 08/14/2021 12:00 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 Very tearful throughout session, has been in and out of the hospital since last March. JANIS PANDYA OTR/L - 08/15/2021 14:38 EDT General Status Patient Received Status : Other: Half long sitting and sitting on EOB Treatment Start Time : 08/15/2021 9:39 EDT Patient Left Status : RN/PCT informed, Other: Half long sitting and sitting EOB. RN/PCT Informed Comment : EWA [place] Treatment End Time : 08/15/2021 9:52 EDT Treatment Time : 13 Minute(s) JANIS PANDYA OTR/L - 08/15/2021 14:38 EDT History and Environment, OT Living Situation, Therapy : Home Patient Lives With : Parent(s) Persons Assisting Patient at Home : Alone, Parent(s) Persons Providing Information : Patient Home Setup : One story Stairs : Yes Stair Location(s) : Outside Outside Stairs, Number of Steps : 3 Railing Outside : No JANIS PANDYA OTR/Az - 08/15/2021 14:38 EDT Prior LOF Bathing, OT : Independent Prior LOF Bed Mobility : Independent Prior LOF Upper Body Dressing, OT : Independent Prior LOF Lower Body Dressing, OT : Independent Prior LOF Toileting : Independent Prior LOF Transfer : Independent Prior LOF Grooming, OT : Independent Prior LOF for IADLs, OT : Independent JANIS PANDYA OTR/Az [place] 08/15/2021 14:38 EDT Upper Extremity Upper Extremity Dominance : Right Right UE Active ROM : WFL Right UE Strength : WFL Left UE Active ROM : WFL Left UE Strength : WFL JANIS PANDYA OTR/Az [place] 08/15/2021 14:38 EDT Self Care/Home Management, OT Self Feeding Assist Level, OT : Independent, complete Grooming Assist Level, OT : Supervision or set-up Upper Body Dressing Assist Level, OT : Supervision or set-up Lower Body Dressing Assist Level, OT : Assist, maximal Toileting Assist Level : Supervision or set-up Toilet Transfer Assist Level : Assist, moderate JANIS PANDYA OTR/L - 08/15/2021 14:38 EDT Functional Mobility Bed Comment : Pt sitting half long sitting and half on EOB, states she is comfortable and doesnt want to move becuase doesnt want to pull at PEG site. States she moves well with assistance ROCHELLE PANDYALYBETOR/L - 08/15/2021 14:38 EDT Cognition Assessment, OT Orientation : Oriented x 4 JANIS PANDYA OTR/Az - 08/15/2021 14:38 EDT Plan of Care, OT OT Tx Plan/Goals Established w Patient : Yes OT Frequency Rehab : Five days per week OT Duration Rehab : Fourteen days OT Treatments Planned : Activities of daily living, Functional mobility training, Therapeutic activities JANIS PANDYA OTR/Az - 08/15/2021 14:38 EDT Visitor Services Specialist Goals, OT Grooming LTG Grid Goal #1 Activity : Grooming Assist : Independent, modified Date to Meet : 08/29/2021 EDT Goal Status : Initial goal Comment : Standing JANIS PANDYA OTR/L - 08/15/2021 14:38 EDT Dressing, Lower Body LTG Grid Goal #1 Activity : Dressing, Lower Body Assist : Independent, modified Equipment : Long Handled Water Resource Manager, Sock aid, Long handled shoehorn Date to Meet : 08/29/2021 EDT Goal Status : Initial goal JANIS PANDYA OTR/L - 08/15/2021 14:38 EDT Toilet Transfer LTG Grid Goal #1 Activity : Toilet Transfer, Ambulatory Assist : Independent, modified Date to Meet : 08/29/2021 EDT Goal Status : Initial goal JANIS PANDYA OTR/L - 08/15/2021 14:38 EDT Bed Mobility/ Bed Transfer LTG Grid Goal #1 Activity : Bed Mobility/Bed Transfer Assist : Independent, modified Date to Meet : 08/29/2021 EDT Goal Status : Initial goal JANIS PANDYA OTR/L - 08/15/2021 14:38 EDT Treatment Note Subjective Comment : Pt agreeable to evaluation, very tearful and rates pain 7/10 at PEG site. Goal is to be pain free. Patient's Response to Treatment : pt tolerated session fairly. Additional Objective Information : pt half sitting EOB/long sitting in bed. Pt tearful on arrival due to pain and emotional upset with her health situation. Alert and oriented x4. BUE ROM and MMT WFL. Pt declined EOB/OOB mobility stating she has been up to the bathroom and is in pain. Pt agreeable to additional OT sessions, she is just limited this date due to pain. Attempted to consult animal bounty hunter, however pt denied. RN notified of pt needing medication and diet. pt left sitting EOB/long sitting. Assessment : pt will benefit from skilled OT during hospital stay for general debility due to medical diagnoses and extensive recent hospital stays. Plan for Treatment : See LTG/POC. JANIS PANDYA OTR/Az - 08/15/2021 14:38 EDT Anticipated Discharge Needs, OT/PT Anticipated Discharge to : Home, with home health, Unable to assess at this time, Unit, rehabilitation JANIS PANDYA OTR/Az - 08/15/2021 14:38 EDT [place] OT Charges OT Eval Moderate Complexity : 1 JANIS PANDYA OTR/Az - 08/15/2021 14:38 EDT documented in this encounter Plan of Treatment Not on file documented as of this encounter Visit Diagnoses Not on filedocumented in this encounter
--- OUTSIDE RECORDS SUMMARY | 2024-12-07 00:24 | XMS_ITS | Encounter Summary ---
Author Organization [employer] ([place], [place], [place], [place]) Address [address] [place] [address] Care Team Providers Care Healthcare Or Medical Name Role Phone Unavailable Primary Care Provider Unavailabl e Encounter Details Date Type Department Care Team (Late st Contact Info) Description 08/15/2021 Transcribed Document [facility] [place] [facility] [place] [address] ProviderMaría MD [address] [place] [address] Social History Tobacco Use Types [...] Conversion Note - Historical ProviderMD - 08/15/2021 12:14 PM CDT Pain Assessment Entered On: 08/16/2021 2:12 EDT Performed On: 08/16/2021 2:08 EDT by Venkat Chow Lpn Intervention Information: HYDROmorphone Performed by Venkat Chow Lpn on 08/16/2021 01:38:00 EDT HYDROmorphone,0.5mg IV Push,Left Lower Forearm,Pain (Severe 7-10) Pain Assessment Pain Assessment : Follow-up assessment Pain Scale Goal : 4 Venkat Chow Lpn - 08/16/2021 2:12 EDT documented in this encounter Plan of Treatment Not on file documented as of this encounter Visit Diagnoses Not on filedocumented in this encounter
--- OUTSIDE RECORDS SUMMARY | 2024-12-07 00:24 | XMS_ITS | Encounter Summary ---
Author Organization [employer] ([place], [place], [place], [place]) Address [address] [place] [address] Care Team Providers Care Supervisor Hospitality House Name Role Phone Unavailable Primary Care Provider Unavailabl e Encounter Details Date Type Department Care Team (Late st Contact Info) Description 08/19/2021 Transcribed Document [facility] [place] Family [facility] [place] [address] ProviderMaría MD [address] [place] [address] Social History Tobacco Use Types [...] Conversion Note - Historical ProviderMD - 08/19/2021 2:01 PM CDT Final Discharge Planning Entered On: 08/19/2021 14:04 EDT Performed On: 08/19/2021 14:01 EDT by JEANNETTE MANCERA Venetian Blind Tape Cutter Final Discharge Planning Discharge Arrangements : Patient Post-Acute Information Patient Name: CARIN LUCERO Gender: Female : [birth year] Age: 46 Years No Post-Acute Placement(s) Listed No Post-Acute Service(s) Listed No Curaspan Referral(s) Listed Patient Offered Choice/Affiliations Explained : Yes Designation of Choice Signed : Yes Transportation Needs : Car Discharge Transportation Arrangement Cmt : family Follow Up Appointment Scheduled : Yes Is Patient High/Moderate Readmission Risk? : No Patient/Family Notified of Plan : Yes Discharge To Care Management : Home Health Services (Related/SOC within 3 days)-06 JEANNETTE MANCERA Venetian Blind Tape Cutter - 08/19/2021 14:01 EDT Final Narrative Note Final Narrative Note : HD 5/ELOS 4/RRS low - to discharge home today with PO Abx per ID, orders for home health received and arranged via [facility] and patient to be transported home via mother in an accessible automobile, per patient statement she has oxygen in place at home however does not use it for transport or during the day just at night as needed. Pt, RN aware and in agreement with plan. JEANNETTE MANCERA Venetian Blind Tape Cutter - 08/19/2021 14:01 EDT Electronically signed by Tomeka [facility] Conversion Airport Utility Worker Cerner at 09/18/2022 9:26 AM CDT documented in this encounter Plan of Treatment Not on file documented as of this encounter Visit Diagnoses Not on filedocumented in this encounter
--- OUTSIDE RECORDS SUMMARY | 2024-12-07 00:24 | XMS_ITS | Encounter Summary ---
Author Organization [employer] ([place], [place], [place], [place]) Address [address] [place] [address] Care Team Providers Care Stained Glass Painter Name Role Phone Unavailable Primary Care Provider Unavailabl e Encounter Details Date Type Department Care Team (Late st Contact Info) Description 08/14/2021 Transcribed Document [facility] [place] Family Medicine [address] [place] [address] ProviderMaría MD [address] [place] [address] Social History Tobacco Use Types [...] Conversion Note - Historical ProviderMD - 08/14/2021 6:43 PM COMMISSARY AGENT Broset Violence Assessment Entered On: 08/14/2021 21:48 EST Performed On: 08/14/2021 21:48 EST by LORE LUDWIG RN Broset Violence Assessment Broset Violence Checklist of Symptoms : None Broset Violence Symptoms Subtotal : 0 Broset Violence Symptoms Indicator : Low risk (0) LORE LUDWIG RN - 08/14/2021 21:48 EST documented in this encounter Plan of Treatment Not on file documented as of this encounter Visit Diagnoses Not on filedocumented in this encounter
--- OUTSIDE RECORDS SUMMARY | 2024-12-07 00:24 | XMS_ITS | Encounter Summary ---
Author Organization [employer] ([place], [place], [place], [place]) Address [address] [place] [address] Care Team Providers Care Nurses Director Name Role Phone Unavailable Primary Care Provider Unavailabl e Encounter Details Date Type Department Care Team (Late st Contact Info) Description 08/14/2021 Transcribed Document [facility] [place] [facility] [place] [address] ProviderMaría MD [address] [place] [address] Social History Tobacco Use Types [...] - Historical ProviderMD - 08/14/2021 6:43 PM MAGAZINE JOURNALIST ED Assessment Entered On: 08/14/2021 21:48 EST Performed On: 08/14/2021 18:45 EST by LORE LUDWIG RN ED Quick Look Assessment Level of Consciousness : Alert, Awake Affect/Behavior : Anxious Orientation : Oriented x 4 Skin Temperature : Warm Skin Description : Normal for ethnicity LORE LUDWIG RN - 08/14/2021 21:41 EST ED General-Functional Assess Information Obtained From : Patient Communication Barrier : None Primary Language : Turkish Any Spiritual/Cultural Needs or Requests : No Currently in Unsafe Situation : No LORE LUDWIG RN - 08/14/2021 21:41 EST Social Habits Smoking Status : Never (less than 100 in lifetime; none in last 30 days) Smokeless Tobacco Status : Never Desires Tobacco Cessation Calc : 0 LORE LUDWIG RN - 08/14/2021 21:41 EST Social History (As Of: 08/14/2021 21:48:15 EST) Tobacco: Smoking Status Current every day smoker. (Last Updated: 01/06/2017 07:24:00 EDT by Sonia Patricia, EWA) Alcohol: Alcohol Use History No. (Last Updated: 01/06/2017 07:24:04 EDT by Sonia Patricia, EWA) Substance Abuse: Drug Use Hx: No. (Last Updated: 01/06/2017 07:24:08 EDT by Sonia Patricia, EWA) Cardiovascular ASMT, ED Cardiovascular Assessment WDL : WDL with exceptions (Comment: ST noted on the monitor @ 111 bpm; BP normotensive; Pt recently admitted on the ventilator for respiratory arrest. Pt this date denies any CP; +4 edema noted on x2 LE; Pt reports hx of fluid overload. [LORE LUDWIG RN - 08/14/2021 21:41 EST] ) LORE LUDWIG RN - 08/14/2021 21:41 EST Respiratory Respiratory Assessment WDL : WDL with exceptions (Comment: Pt was in respiratory arrest due to COVID for last admission, D/octavio Monday; Returns this date with SOA, Trach in place; Pt reporting increased amounts of mucous since D/C on monday. Lung sounds reveal crackles in lower bases; Pt remaines 98% on RA, was given 4 mg Morphine and Oxygen saturation immediately decreased to 87%; 5 L NC applied. Frequent cough noted. [LORE LUDWIG RN - 08/14/2021 21:41 EST] ) LORE LUDWIG RN - 08/14/2021 21:41 EST Oxygen Therapy Oxygen Therapy Mode : Nasal cannula Oxygen Flow Rate Titrated : 5 Liter/Min O2 Saturation Monitoring Frequency : Continuous Oxygen Saturation (%) : 95 % LORE LUDWIG RN - 08/14/2021 21:41 EST Gastrointestinal ED Gastrointestinal Assessment WDL : WDL with exceptions (Comment: Peg tube noted in LUQ; PT states Peg tube has been causing discomfort, states she feels a burning sensation underneath her L breast. Purulent drainge noted around PEG tube site. Dressing changed (see [employer]). [LORE LUDWIG RN - 08/14/2021 21:41 EST] ) LORE LUDWIG RN - 08/14/2021 21:41 EST Neurologic ASMT, ED Neurologic Assessment WDL : LORE BELCHER RN - 08/14/2021 21:41 EST Electronically signed by Tomeka [facility] Conversion Jeweler Apprentice Cerner at 09/18/2022 8:52 AM CDT documented in this encounter Plan of Treatment Not on file documented as of this encounter Visit Diagnoses Not on filedocumented in this encounter
--- OUTSIDE RECORDS SUMMARY | 2024-12-07 00:24 | XMS_ITS | Encounter Summary ---
Author Organization [employer] ([place], [place], [place], [place]) Address [address] [place] [address] Care Team Providers Care Director Of Ancillary Services Name Role Phone Unavailable Primary Care Provider Unavailabl e Encounter Details Date Type Department Care Team (Late st Contact Info) Description 08/15/2021 Transcribed Document [facility] [place] Family Medicine [facility] [place] [address] ProviderMaría MD [address] [place] [address] Social History Tobacco Use Types [...] Conversion Note - Historical ProviderMD - 08/15/2021 12:41 PM CDT Patient: CARIN LUCERO Age: 46 years Sex: Female : 1975 Associated Diagnoses: None Author: MANUELITO SMITH MD-INF Basic Information CC: Abdominal wall cellulitis, PEG tube infection History of Present Illness 46 yo female with h/o IRLANDA, morbid obesity, tobacco abuse, COVID-19 pneumonia, and recent respiratory arrest at [facility] requiring tracheostomy/PEG about a month ago with transfer to [facility]. She was discharged on 08/11. She has been tolerating oral intake and was scheduled to have PEG removed next week. She began having pain around the PEG tube site around 3 days ago with the area becoming more red with burning sensation prompting her to come to [facility] ED on 08/14/21. She denies fever, chills, [...] travel history. Also low-grade fevers for weeks. Review of Systems Constitutional: Fever, Chills, Weakness, No sweats. Eye: No recent visual problem, No icterus, No blurring, No visual disturbances. Ear/Nose/Mouth/Throat: No decreased hearing, No sore throat. Respiratory: No shortness of breath, No cough, No sputum production. Cardiovascular: No palpitations, No bradycardia. Gastrointestinal: No nausea, No vomiting, No diarrhea, No abdominal pain. Genitourinary: No dysuria, No hematuria, No change [...] Psychiatric: No anxiety, No depression. Health Status Allergies: Allergic Reactions (Selected) Unknown Metoclopramide- No reactions were documented., No qualifying data available Current medications: (Selected) Inpatient Medications Ordered Depakote ER: 500 mg, Oral, Daily Dilaudid: 0.5 mg, IV Push, Q2H, PRN: Pain (Severe 7-10) Dulcolax Laxative: 5 mg, Oral, Daily, PRN: Constipation DuoNeb 0.5 mg-2.5 mg/3 mL inhalation solution: 3 mL, Nebulized Inhalation, RT_Q6H, PRN: Shortness of Breath Geodon: 40 mg, Oral, Daily Imitrex: 100 mg, Oral, Daily LaMICtal: 100 mg, Oral, Daily Lovenox: 40 mg, SubCutaneous, [id number] MiraLax: 17 Gram, Oral, Daily, PRN: Constipation [...] mL: 1,500 mg, 250 mL/Hr, IV Piggyback, [id number] Prescriptions Prescribed Bentyl 20 mg oral tablet: [...] hours oral tablet, extended release: Tab, Oral, [id number], 0 Refill(s) acetaminophen-HYDROcodone 325 mg-5 mg oral [...] oral capsule: 6 Each, 0 Refill(s), Medications by Classification Antimicrobials piperacillin-tazobactam + Sodium Chloride 0.9% intravenous s - 3.375 Gram, IV Piggyback, Inj, Q6HInt, infuse over 3 Hour(s) vancomycin + Sodium Chloride 0.9% intravenous solution 250 m - 1,500 mg, IV Piggyback, Inj, [id number], infuse over 60 Minute(s) Anticoagulant enoxaparin (Lovenox) - 40 mg, SubCutaneous, Inj, [id number], Routine Cardiovascular hydrALAZINE - 10 mg, Oral, [...] clonazePAM - 0.5 mg, Oral, Tab, Daily Problem list: All Problems History of obstructive sleep apnea / IMO [id number] / Confirmed Suicide risk / IMO 07437 / Confirmed, Active Problems (2) History of obstructive sleep apnea Suicide risk Histories Past Medical History: IRLANDA Morbid obesity recent respiratory arrest Hypothyroidism Depression HTN Family History: No family history items have been selected or recorded. Procedure history: Trach and PEG 07/2020 Social History Social & Psychosocial Habits Alcohol 01/06/2017 Alcohol Use History, Social Habits No Substance Abuse 01/06/2017 Recreational Drug Use History No Tobacco 01/06/2017 Smoking Status Current every day smoker . Single, lives in [place], [place]. Smokes daily, no alcohol or illicit drug use.. EXPOSURE HX: VACCINES: Physical Examination VS/Measurements Vital Measurements 08/15/2021 8:02 EDT FiO2 28 % , Vitals Signs (last 24 hrs) Last Charted Minimum Maximum Temp 98.3 (AUG 15:) 98.3 (AUG 15:) H 100.6 (AUG 14 18:55) Mon HR 97 (AUG 15:) 97 (AUG 15:) 124 (AUG 15 00:45) Periph HR 119 (AUG 14 18:55) 119 (AUG 14 18:55) 119 (AUG 14 18:55) Resp Rate 18 (AUG 15:) 18 (AUG 15:13) H 22 (AUG 14 22:33) SBP H 152 (AUG 15:) 130 (AUG 14 20:10) H 160 (AUG 14 18:55) DBP H 102 (AUG 15 11:) 66 (AUG 14 23:32) H 107 (AUG 15 00:45) MAP 127 (AUG 15:) 93 (AUG 14 20:10) 127 (AUG 15:) SpO2 96 (AUG 15:) L 93 (AUG 14 23:45) 96 (AUG 15 01:00) General: Alert and oriented, Moderate distress. Eye: [...] Non-tender, Non-distended, Normal bowel sounds, No organomegaly. Genitourinary: No genital lesions, back straight, no CVA tenderness, breasts symmetric, rectal per history of present illness. Lymphatics: No lymphadenopathy neck, axilla, groin. Musculoskeletal: Normal range of motion, Normal strength, No tenderness, No deformity. Integumentary: Warm, Dry, [place], No pallor, No rash, PEG tube site with some induration, some purulent drainage, no foul smell, minimal erythema on the abdominal wall. Trach site with some purulent discharge and minimal erythema.. Neurologic: Alert, Oriented, Normal sensory, Normal motor function, No focal deficits, Cranial Nerves II-XII are grossly intact, Normal deep tendon reflexes. Cognition and Speech: Oriented, Speech clear and [...] 14) ALB L 2.6 (AUG 14) . Radiology results Radiology Results (Last 48 hours) [id number] -- 08/14/2021 22:53 CR Chest 1 Vw [...] to inflammation.A discrete abscess is not identified. Diagnostic Findings: ACC: ORDER: DATE: SOURCE: SITE: Reports == . Creatinine Clearance (Current Encounter/Past 24 Hours) Creatinine Level 1.20 mg/dL HI 08/15/2021 01:01 Bun/Creatinine 14.2 08/14/2021 20:54 Estimated Creatinine Clearance 43.73 mL/Min 08/14/2021 20:54 Impression and Plan 1. Acute abdominal wall cellulitis with possible PEG site infection. Usual orgs are staph or strep. Culture pending. No obvious abscess by CT scan 08/14/2021. 2. Possible tracheostomy site infection. Check culture. Purulent discharge. 3. Acute renal insufficiency with recent Acute renal failure at OSH. Would avoid nephrotoxic agents. 4. Fever, related to above. 5. Recent [...] previous tracheostomy. On 28% trach collar 08/15/2021. REC: Thank you for asking us to see Carin Lucero. I recommend the followin. Diagnostically, blood and PEG site wound cultures, [...] care per GI. 5. Obtain records from [facility] and [facility] and place on chart. 6. Continue oxygen support as needed. Plan has been discussed with patient including side effects of medications and line. At increased risk for side effects of abx and line, and readmission. Discussed in detail with nursing. Manuelito Smith MD saw and examined patient, verified findings, reviewed labs and radiographic data, formulated diagnosis, plan for treatment, and all medical decision making. Nabil Caballero PA-C/for Dr. Manuelito Smith. Electronically signed by Tomeka [facility] Conversion Loan Administrator Cerner at 09/18/2022 8:51 AM CDT documented in this encounter Plan of Treatment Not on file documented as of this encounter Visit Diagnoses Not on filedocumented in this encounter
--- OUTSIDE RECORDS SUMMARY | 2024-12-07 00:24 | XMS_ITS | Encounter Summary ---
Author Organization [employer] ([place], [place], [place], [place]) Address [address] [place] [address] Care Team Providers Care Visitor Use Assistant Name Role Phone Unavailable Primary Care Provider Unavailabl e Encounter Details Date Type Department Care Team (Late st Contact Info) Description 10/01/2021 Transcribed Document [facility] [place] Family Medicine [address] [place] [address] ProviderMaría MD [address] [place] [address] Social History Tobacco Use Types [...] Cerner Conversion Note - Historical ProviderMD - 10/01/2021 9:06 AM CDT CR Chest 1 Vw Portable Ordered: 09/30/2021 Modified Reason for Exam: Cough 10/01/2021 08:44 10/01/2021 09:06 (RONIT AMEZCUA, APR) Reviewed by Provider, No further action required x1 documented in this encounter Plan of Treatment Not on file documented as of this encounter Visit Diagnoses Not on filedocumented in this encounter
--- OUTSIDE RECORDS SUMMARY | 2024-12-07 00:24 | XMS_ITS | Encounter Summary ---
Author Organization [employer] ([place], [place], [place], [place]) Address [address] [place] [address] Care Team Providers Care Blueprint Reader Name Role Phone Unavailable Primary Care Provider Unavailabl e Encounter Details Date Type Department Care Team (Late st Contact Info) Description 08/19/2021 Transcribed Document [facility] [place] Family Medicine [facility] [place] [address] ProviderMaría MD [address] [place] [address] Social History Tobacco Use Types [...] Conversion Note - Historical ProviderMD - 08/19/2021 3:17 PM CDT Patient Education Materials Follows: PEG Tube Removal A PEG tube (percutaneous endoscopic gastrostomy tube) is a feeding tube that is used to deliver food, medicine, and fluids directly into the stomach. It is placed into the stomach through a small incision in the abdomen. You may have a PEG tube if you have had trouble swallowing, have had problems with your appetite, or otherwise have not been able to get enough nutrition by eating or drinking. When you do not need the PEG tube anymore, your health care provider will do a simple procedure to remove it. Tell your health care provider about: ??? Any allergies you have. ??? All medicines you are taking, including vitamins, herbs, eye drops, creams, and vdok-tri-swetfzi medicines. ??? Any problems you or family members have had with anesthetic medicines. ??? Any blood disorders you have. ??? Any surgeries you have had. ??? Any medical conditions you have. ??? Whether you are or may be . What are the risks? Generally, this is a safe procedure. However, problems may occur, including: ??? Infection. ??? Bleeding. ??? Allergic reactions to medicines. ??? Damage to nearby structures or organs such as the stomach, intestines, or liver. ??? Leaking of stomach contents. What happens before the procedure? Follow instructions from your health care provider about feeding, eating, or drinking restrictions. ??? Ask your health care provider about: ? Changing or stopping your regular medicines. This is especially important if you are taking diabetes medicines or blood thinners. ? Taking medicines such as aspirin and ibuprofen. These medicines can thin your blood. Do not take these medicines unless your health care provider tells you to take them. ? Taking hqli-pkv-grnmale medicines, vitamins, herbs, and supplements. ??? Do not use any products that contain nicotine or tobacco for at least 4 weeks before the procedure. These products include cigarettes, e-cigarettes, and chewing tobacco. If you need help quitting, ask your health care provider. What happens during the procedure? You will lie on your back with your abdomen exposed. ??? The area around the PEG tube will be cleaned with a germ-killing (antiseptic) solution. ??? The area around the tube opening may be numbed with an injection of medicine (local anesthetic). ??? If the PEG tube has a balloon inside your stomach, the air will be let out of the balloon (the balloon will be deflated). ??? Your health care provider will pull out the tube. You may feel some pressure or stinging. ??? A bandage (dressing) will be placed over the opening. The procedure may vary among health care providers and hospitals. What happens after the procedure? Your health care provider will give you instructions for care at home, including how to care for the opening in your skin where the tube was removed. ??? Return to your normal activities as told by your health care provider. Ask your health care provider what activities are safe for you. ??? You may be told to avoid heavy lifting. Summary ??? When you do not need a PEG tube anymore, it will be removed with a simple procedure. ??? This is a safe procedure, but sometimes problems happen. These can include bleeding, infection, and leaking of stomach contents. ??? During the procedure, you will lie on your back so the tube can be removed through your abdomen. ??? Before the PEG tube is removed, you may be given a medicine to numb the area around the tube opening (local anesthetic). ??? The opening will be covered with a bandage (dressing). This information is not intended to replace advice given to you by your health care provider. Make sure you discuss any questions you have with your health care provider. Document Revised: 10/02/2020 Document Reviewed: 10/02/2020 [employer] Patient Education ? 2020 [employer] documented in this encounter Plan of Treatment Not on file documented as of this encounter Visit Diagnoses Not on filedocumented in this encounter
--- OUTSIDE RECORDS SUMMARY | 2024-12-07 00:24 | XMS_ITS | Encounter Summary ---
Author Organization [employer] ([place], [place], [place], [place]) Address [address] [place] [address] Care Team Providers Care Jewelry Internship Name Role Phone Unavailable Primary Care Provider Unavailabl e Encounter Details Date Type Department Care Team (Late st Contact Info) Description 08/15/2021 Transcribed Document [facility] [place] Family Medicine [address] [place] [address] ProviderMaría MD [address] [place] [address] Social History Tobacco Use Types [...] Conversion Note - Historical ProviderMD - 08/15/2021 12:00 AM HOME DESIGNER ED Event Note Entered On: 08/15/2021 0:00 EST Performed On: 08/15/2021 0:00 EST by Brittanie Murdock RN ED Event Note ED Event Date/Time : 08/15/2021 0:00 EST ED Description of Event : Patient report given to Rita MCNEIL on 3rd floor. Brittanie Murdock RN - 08/15/2021 0:00 EST documented in this encounter Plan of Treatment Not on file documented as of this encounter Visit Diagnoses Not on filedocumented in this encounter
--- OUTSIDE RECORDS SUMMARY | 2024-12-07 00:24 | XMS_ITS | Encounter Summary ---
Author Organization [employer] ([place], [place], [place], [place]) Address [address] [place] [address] Care Team Providers Care Bull Gang Supervisor Name Role Phone Unavailable Primary Care Provider Unavailabl e Encounter Details Date Type Department Care Team (Late st Contact Info) Description 08/19/2021 Transcribed Document [facility] [place] [facility] [place] [address] ProviderMaría MD [address] [place] [address] Social History Tobacco Use Types [...] Conversion Note - Historical ProviderMD - 08/19/2021 3:00 AM CDT Nutrition Assessment Entered On: 08/19/2021 8:50 EDT Performed On: 08/19/2021 12:43 [address]T by [address]Y COFFEY RD, LD Nutrition Assessment Current Nutrition Regimen Comment : 08/19: High f/u. PEG has been removed and no abscess found. Pt is on a regular diet and eating 100% meals. Pt may D/C today if ok with ID. 08/16: RD consult rec'd for BMI>40 + MST (24-33# wt loss). Pt admitted w/ infection around PEG tube site. Pt was tolerating PO intake and about to have PEG tube removed captain cannery tender. GI plans for removal today. Pt busy during visit. Will reassess for wt loss at f/up. Dx: anterior abdominal wall cellultis ? abscess at site of PEG, acute renal failure PMH: dhiraj, suicide risk, trach/peg, severe depression/anxiety, obesity, hypothyroidism Labs: (08/18)Alb 2.5 Meds: abx, Pepcid, synthroid, abx, PRN pain, LR Skin: abd incision closed GI: LBM 08/19, +BS Diet: Regular PO intake: 100% x 2 meals Ht: 61 Wt: 305#, no new wt (08/19) wt hx: 240# x 4.5 yrs ago BMI: 57.8 IBW: 103# (296% IBW) MONTY COFFEY RD, LD - 08/19/2021 12:40 EDT Nutrition Assessment Reason : Follow Up MONTY COFFEY RD, LD - 08/19/2021 8:50 EDT Nutrition Diagnoses Weight : Unintended weight loss Weight Related to : clinical condition Weight As Evidenced by : 24-33# wt loss per MST Weight Status : Active MONTY COFFEY RD, LD - 08/19/2021 12:40 EDT Nutrition Interventions Meals and Snacks : General/Healthful diet MONTY COFFEY RD, LD - 08/19/2021 12:40 EDT Monitoring/Evaluation Energy Intake : Total energy intake Food Intake : Amount of food Protein Intake : Total protein Weight Status : Weight Maintanence Gastrointestinal Function : Bowel Function MONTY COFFEY RD, LD - 08/19/2021 12:40 EDT Nutrition Recommendations Dietitian Recommendations : 1. Pt eating 100% meals. No supplement needed. Goal: >50% of intakes 2. Obtain wt 2x weekly Goal: avoid involuntary wt changes Risk: moderate Nutrition Care Level : High MONTY COFFEY RD, LD - 08/19/2021 12:40 EDT documented in this encounter Plan of Treatment Not on file documented as of this encounter Visit Diagnoses Not on filedocumented in this encounter
--- OUTSIDE RECORDS SUMMARY | 2024-12-07 00:24 | XMS_ITS | Encounter Summary ---
Author Organization [employer] ([place], [place], [place], [place]) Address [address] [place] [address] Care Team Providers Care Heel Sorter Name Role Phone Unavailable Primary Care Provider Unavailabl e Encounter Details Date Type Department Care Team (Late st Contact Info) Description 09/30/2021 Transcribed Document [facility] [place] [facility] [place] [address] ProviderMaría MD [address] [place] [address] Social History Tobacco Use Types Packs/Day Years Used Date Smoking Tobacco: Never Assessed Comments Unknown Sex and Gender Information Value Date Recorded Sex Assigned at Female 11/30/2021 3:01 PM CDT Legal Sex Female 3:01 PM CDT Gender Identity Female 11/30/2021 3:01 PM CDT Sexual Orientation Not on file documented as of this encounter Miscellaneous Notes * [place]ley Conversion Note - Historical ProviderMD - 09/30/2021 8:30 PM CDT Electronically signed by Tomeka [facility] Conversion Chronic Disease Epidemiologist Avery at 09/18/2022 9:34 AM CDT documented in this encounter Plan of Treatment Not on file documented as of this encounter Visit Diagnoses Not on filedocumented in this encounter
--- OUTSIDE RECORDS SUMMARY | 2024-12-07 00:24 | XMS_ITS | Encounter Summary ---
Author Organization [employer] ([place], [place], [place], [place]) Address [address] [place] [address] Care Team Providers Care Dental Hygienist Mobile Coordinator Name Role Phone Unavailable Primary Care Provider Unavailabl e Encounter Details Date Type Department Care Team (Late st Contact Info) Description 09/30/2021 Transcribed Document [facility] [place] [address] [place] [address] ProviderMaría MD [address] [place] [address] Social History Tobacco Use Types [...] Historical ProviderMD - 09/30/2021 4:19 PM CDT Broset Violence Assessment Entered On: 09/30/2021 16:53 EDT Performed On: 09/30/2021 16:50 EDT by Leo Belle RN Broset Violence Assessment Broset Violence Checklist of Symptoms : None Broset Violence Symptoms Subtotal : 0 Broset Violence Symptoms Indicator : Low risk (0) Leo Belle RN - 09/30/2021 16:50 EDT documented in this encounter Plan of Treatment Not on file documented as of this encounter Visit Diagnoses Not on filedocumented in this encounter
--- OUTSIDE RECORDS SUMMARY | 2024-12-07 00:24 | XMS_ITS | Referral Summary ---
Author Organization [employer] ([place], [place], [place], [place]) Address [address] [place] [address] Care Team Providers Care Secretary Name Role Phone Unavailable Primary Care [...]
--- OUTSIDE RECORDS SUMMARY | 2024-12-07 00:24 | XMS_ITS | Encounter Summary ---
Author Organization [employer] ([place], [place], [place], [place]) Address [address] [place] [address] Care Team Providers Care Teaching Artist Name Role Phone Unavailable Primary Care Provider Unavailabl e Encounter Details Date Type Department Care Team (Late st Contact Info) Description 08/14/2021 Transcribed Document [facility] [place] [facility] [place] [address] ProviderMaría MD [facility] [place] [address] Social History Tobacco Use Types [...] Conversion Note - Historical ProviderMD - 08/14/2021 8:44 PM POLICY ANALYST Pain Assessment Entered On: 08/14/2021 21:38 EST Performed On: 08/14/2021 21:38 EST by LORE LUDWIG RN Intervention Information: morphine Performed by LORE LUDWIG RN on 08/14/2021 20:48:00 EST morphine,4mg IV Push,Peripheral Line 1 Pain Assessment Pain Assessment : Follow-up assessment Pain Scale Used : 0-10 Scale LORE LUDWIG RN - 08/14/2021 21:38 EST Pain Scale Intensity : 4 LORE LUDWIG RN - 08/14/2021 21:38 EST Image 4 - Images currently included in the form version of this document have not been included in the text rendition version of the form. documented in this encounter Plan of Treatment Not on file documented as of this encounter Visit Diagnoses Not on filedocumented in this encounter
--- OUTSIDE RECORDS SUMMARY | 2024-12-07 00:24 | XMS_ITS | Encounter Summary ---
Author Organization [employer] ([place], [place], [place], [place]) Address [address] [place] [address] Care Team Providers Care Sales Director Name Role Phone Unavailable Primary Care Provider Unavailabl e Encounter Details Date Type Department Care Team (Late st Contact Info) Description 08/19/2021 Transcribed Document [facility] Radiology [address] [place] [address] Saleem Jimenes MD [address] [place] [id number] Social History Tobacco Use Types Packs/Day [...] Conversion Note - Saleem Jimenes MD - 08/19/2021 4:00 PM EDT Patient: CARIN LUCERO Age: 46 Years Sex: Female : 1975 Admit Date 08/14/2021 22:53 Discharge Date 08/19/2021 16:06 Primary Care Provider EMY MUSA (REF)[facility] Discharge Diagnosis: Anterior abdominal wall cellulitis possible abscess at the site of PEG tube PEG tube removed 08/16/2021 Trichomonas vaginalis. Acute renal failure pain Recent acute on chronic hypoxic/hypercapnic respiratory failure possible respiratory arrest. History of severe obstructive sleep apnea Status post tracheostomy and PEG tube placement Severe depression and anxiety. Hypothyroidism Morbid obesity. Procedures SN - Proc - Procedure: EGD w Peg Tube Removal / Change (08/16/21 11:18:22) Hospital Course Patient is a 46-year-old female with past medical history of peg tube placement, recent respiratory arrest with tracheostomy, obstructive sleep apnea, tobacco abuse, morbid obesity, who presents for abdominal pain with infection around PEG tube site. Onset began 3 days ago. Reports PEG tube site is red and painful. Reports burning sensation around PEG tube site. Abdominal pain is moderate, 6 out of 10, crampy, achy, constant, nonradiating. No exacerbating or relieving factors. Patient states that she recently had a respiratory arrest last month and was admitted to [facility]. Patient CO2 was reportedly greater than 100. Patient was admitted and eventually had to have a trach and PEG placed. Patient was transferred from [place] and was admitted at [facility], recently just being discharged 3 days ago. PEG tube symptoms began after being discharged. Patient was tolerating p.o. intake and was about to have PEG tube removed next week. Denies any current chest pain, shortness of breath, nausea, vomiting, fevers, chills, headache, loss of taste, loss of smell, diarrhea, constipation, focal neurological deficits or any other symptoms. GI consulted. Subsequently patient underwent PEG tube extraction. Cultures did show multiple species grow. ID consulted. Dr. Weaver continue managing IV antibiotics. Her psych medications reconciled per pharmacy. Her acute renal failure resolved. Found to have trichomonas vaginalis started on Flagyl. This hospitalization patient was placed on GI and DVT prophylaxis. Physical therapy continue to evaluate the patient during this hospitalization. Last internal medicine note: Anterior abdominal wall cellulitis possible abscess at the site of PEG tube CT scan abdomen and pelvis from outside facility noted. No evidence of a loculated abscess Follow-up cultures. Wound cultures multiple growth Continue broad-spectrum IV antibiotics. Pain control. GI consulted. PEG tube removed 08/16/2021 Advance diet as tolerated ID consulted Trichomonas vaginalis. Urine analysis noted Continue Flagyl Acute renal failure pain Likely due to volume depletion. Gentle hydration. Creatinine 1.2----> 1.8---> 1.0 Avoid nephrotoxic medications. Monitor kidney function closely. [...] GI and ID consulted. Discharge date likely today 08/19/2021 if it is okay with ID Vital Signs Oxygen Settings (Last) Oxygen Therapy Mode: Trach collar (08/19/21 08:22:00) Oxygen Flow Rate: 5 Liter/Min (08/16/21 20:17:00) Physical Exam Chest poor air entry bilaterally Discharge Disposition Home Discharge Follow Up EMY MUSA (REF), -[facility] - 11:30 AM Discharge Medications (18) Active acetaminophen-HYDROcodone 325 mg-5 mg oral tablet 1 Tab, PRN, Oral, BID albuterol 2.5 mg/3 mL (0.083%) inhalation solution 2.5 mg = 3 mL, PRN, Inhalation, Q6H Augmentin 500 mg-125 mg oral tablet 1 Tab, Oral, Q12H carvedilol 12.5 mg oral tablet 12.5 mg = 1 Tab, Oral, BID clonazePAM 0.5 mg oral tablet 0.5 mg = 1 Tab, PRN, Oral, TID doxycycline hyclate 100 mg oral tablet 100 mg = 1 Tab, Oral, BID Flagyl 500 mg oral tablet 500 mg = 1 Tab, Oral, TID furosemide 20 mg oral tablet 20 mg = 1 Tab, Oral, Daily gabapentin 300 mg oral capsule 300 mg = 1 Cap, Oral, TID lamoTRIgine 100 mg oral tablet 100 mg = 1 Tab, Oral, Daily levothyroxine 25 mcg (0.025 mg) oral tablet 25 mcg = 1 Tab, Oral, Daily Mucinex 600 mg oral tablet, extended release 1,200 mg = 2 Tab, Oral, BID omeprazole 40 mg oral delayed release capsule 40 mg = 1 Cap, Oral, Daily ProAir HFA 90 mcg/inh inhalation aerosol 2 Puff, PRN, Inhalation, Q6H SUMAtriptan 100 mg oral tablet 100 mg = 1 Tab, PRN, Oral, 1-Time Trelegy Ellipta 100 mcg-62.5 mcg-25 mcg/inh inhalation powder 1 Puff, Inhalation, Daily Viibryd 40 mg oral tablet 40 mg = 1 Tab, Oral, Daily ziprasidone 40 mg oral capsule 40 mg = 1 Cap, Oral, BID Code Status Full code Condition on Discharge Stable to be discharged home Consulting Physicians FARIBA LINARES MD-ERIKA WAGGONER MD-INF YESENIAEDILBERTO JONES MD-ANS Current Diet Order No qualifying data available. Pending Labs No Labs on Record Time Spent on Discharge 45 minutes documented in this encounter Plan of Treatment Not on file documented as of this encounter Visit Diagnoses Not on filedocumented in this encounter
--- OUTSIDE RECORDS SUMMARY | 2024-12-07 00:24 | XMS_ITS | Encounter Summary ---
Author Organization [employer] ([place], [place], [place], [place]) Address [address] [place] [address] Care Team Providers Care Engine Research Engineer Name Role Phone Unavailable Primary Care Provider Unavailabl e Encounter Details Date Type Department Care Team (Late st Contact Info) Description 08/14/2021 Transcribed Document [facility] [place] Family Medicine [facility] [place] [address] ProviderMaría MD [address] [place] [address] Social History Tobacco Use Types [...] Conversion Note - Historical ProviderMD - 08/14/2021 10:30 PM IMPORT EXPORT AGENT Patient: CARIN LUCERO Age: 46 years Sex: Female : 1975 Associated Diagnoses: None Author: EDUARD DE LOS SANTOS, DO-INT Basic Information Source of history: Self, Medical record. Chief Complaint 08/14/2021 18:55 EST pt c/o PEG tube infection, just dc'd from hospital on monday, pt also has a trach placed last month due to resp arrest. trach is also making inspiratory wheezing sounds, sounds like it may be congested. History of Present Illness Patient is a 46-year-old female with past [...] arrest last month and was admitted to [facility]. Patient CO2 was reportedly greater than 100. Patient was admitted and eventually had to have a trach and PEG placed. Patient was transferred from [place] and was admitted at [facility], recently just being discharged 3 days ago. PEG tube symptoms began after being discharged. Patient was tolerating p.o. intake and was about to have PEG tube removed next week. Denies any current chest pain, shortness of breath, nausea, vomiting, fevers, chills, headache, loss of taste, loss of smell, diarrhea, constipation, focal neurological deficits or any other symptoms. Review of Systems Constitutional: Negative. Eye: Negative. Ear/Nose/Mouth/Throat: Negative. Respiratory: Negative. Cardiovascular: Negative. Gastrointestinal: Abdominal pain: PEG tube pain, erythema. Genitourinary: Negative. Hematology/Lymphatics: Negative. Endocrine: Negative. Immunologic: Negative. Musculoskeletal: Negative. Integumentary: Negative. Neurologic: Negative. Psychiatric: Negative. All other systems are negative Health Status Allergies: Allergic Reactions (Selected) Unknown [...] 4 mg, IV Push, Q4H, PRN: Nausea melatonin: 5 mg, Oral, At Bedtime, PRN: Insomnia morphine: 1 mg, IV Push, Q4H, PRN: Pain (Severe 7-10) morphine: 4 mg, IV Push, 1-Time piperacillin-tazobactam + Sodium Chloride 0.9% intravenous solution 50 mL: 3.375 Gram, 16.67 mL/Hr, IV Piggyback, Q6HInt vancomycin: 1 Each, IV Piggyback, Weekly Prescriptions Prescribed Bentyl 20 mg oral tablet: [...] hours oral tablet, extended release: Tab, Oral, [id number], 0 Refill(s) gabapentin 800 mg oral tablet: 1 Tab, Oral, TID, 270 Tab, 0 Refill(s) ondansetron 4 mg oral tablet, disintegrating: Tab, Oral, TID, 0 Refill(s) traZODone 100 mg oral tablet: 1 Tab, Oral, TID, 270 Tab, 0 Refill(s), Medications (15) Active Scheduled: (4) famotidine 20 mg/2 mL inj 20 mg 2 mL, IV Push, Daily morphine 4 mg/1 mL inj 4 mg 1 mL, IV Push, 1-Time piperacillin-tazobactam + NaCl 0.9% 50 mL 3.375 Gram, IV Piggyback, Q6HInt Vancomycin IV Dosing by Pharmacy 1 Each, IV Piggyback, Weekly Continuous: (1) NaCl 0.9% 1,000 mL 1,000 [...] inj 6.25 mg 0.25 mL, IntraVENous, Q6H , Home Medications (9) Active Bactrim DS 800 mg-160 mg oral tablet 1 Tab, Oral, BID Bentyl 20 mg oral tablet 20 mg = 1 Tab, Oral, QID Depakote ER 500 mg oral tablet, extended release , Oral, Daily gabapentin 800 mg oral tablet 800 mg = 1 Tab, Oral, TID Macrobid 100 mg oral capsule 100 mg = 1 Cap, Oral, BID ondansetron 4 mg oral tablet, disintegrating , Oral, TID traZODone 100 mg oral tablet 100 mg = 1 Tab, Oral, TID Wellbutrin XL 300 mg/24 hours oral tablet, extended release , Oral, [id number] Zofran ODT 4 mg oral tablet, disintegrating 4 mg = 1 Tab, Oral, TID Problem list: No qualifying data available Histories Past Medical History: Past medical history reviewed., As listed above in HPI Family History: Family history reviewed., Negative, noncontributory, no history of GI disorders or pulmonary disease Procedure history: No active procedure history items have been selected or recorded. Social History Social & Psychosocial Habits Alcohol 01/06/2017 Alcohol Use History, Social Habits No Substance Abuse 01/06/2017 Recreational Drug Use History No Tobacco 01/06/2017 Smoking Status Current every day smoker . Physical Examination VS/Measurements Vitals Signs (last 24 hrs) Last Charted Minimum Maximum Temp 98.9 (AUG 14 20:09) 98.9 (AUG 14 20:09) H 100.6 (AUG 14 18:55) Mon HR 116 (AUG 14 22:33) 116 (AUG 14 22:33) 116 (AUG 14 22:33) Periph HR 119 (AUG 14 18:55) 119 (AUG 14 18:55) 119 (AUG 14 18:55) Resp Rate H 22 (AUG 14 22:33) 20 (AUG 14 18:55) H 22 (AUG 14 22:33) SBP 130 (AUG 14 20:10) 130 (AUG 14 20:10) H 160 (AUG 14 18:55) DBP 79 (AUG 14 20:10) 79 (AUG 14 20:10) 89 (AUG 14 18:55) MAP 93 (AUG 14 20:10) 93 (AUG 14 20:10) 116 (AUG 14 18:55) SpO2 95 (AUG 14 22:33) 95 (AUG 14 18:45) 95 (AUG 14 18:45) General: Alert and oriented, No acute distress. Eye: Extraocular movements are intact, Normal conjunctiva, Vision unchanged. HENT: Normocephalic, Normal hearing, Oral mucosa is moist. Neck: Supple, Non-tender, No lymphadenopathy. Respiratory: Lungs are clear to auscultation, Respirations are non-labored, Breath sounds are equal, Symmetrical chest wall expansion, No chest wall tenderness, tracheosotmy. Cardiovascular: Normal rate, Regular rhythm, No murmur, Good pulses equal in all extremities, No edema. Gastrointestinal: Soft, Non-distended, Normal bowel sounds, No organomegaly, general tenderness, peg tube purulent drainage and erythema. Musculoskeletal: No tenderness, No swelling, No deformity. Integumentary: Warm, Dry, Intact. Neurologic: Alert, Oriented, No focal deficits. Psychiatric: Cooperative, Appropriate mood & affect. Review [...] 14) ALB L 2.6 (AUG 14) , AUG 14 20:15 136 L 100 17 / H 115 3.6 31 H 1.20 \ AUG 14 20:15 \ L 10.7 / 9.6 186 / L 32.8 \. Radiology results Radiology Results (Last 48 hours) [id number] -- 08/14/2021 22:53 CT Abdomen Pelvis W [...] abscess is not identified. Impression and Plan 08/14/2021 Chart reviewed, SCDs DVT prophylaxis, Pepcid GI prophylaxis, diet as tolerated, n.p.o. after midnight Full code Abdominal pain 2/[address] abdomen pelvis with contrast shows abnormal location of the left gastrostomy tube with thickening of the adjacent anterior chest wall, likely due to inflammation, discrete abscess is not identified Blood cultures/urine cultures Vancomycin/Zosyn initiated in ER, continue Pain control Antibiotics Consult GI May require surgery consult pending GI recs Acute renal failure Avoid nephrotoxins Monitor renal function Monitor electrolytes Anemia Monitor H&H and transfuse PRBCs if hemoglobin less than 7 Hypertension Home antihypertensive medications, as needed hydralazine Recent respiratory arrest with tracheostomy; history of obstructive sleep apnea Respiratory care management DuoNebs as needed Oxygen supplementation titration as needed, maintain O2 sats greater than 92% Tobacco abuse Cessation counseling Morbid obesity Complicating all aspects of care Diet/weight loss counseling documented in this encounter Plan of Treatment Not on file documented as of this encounter Visit Diagnoses Not on filedocumented in this encounter
--- OUTSIDE RECORDS SUMMARY | 2024-12-07 00:24 | XMS_ITS | Encounter Summary ---
Author Organization [employer] ([place], [place], [place], [place]) Address [address] [place] [address] Care Team Providers Care Patient Service Representative Name Role Phone Unavailable Primary Care Provider Unavailabl e Encounter Details Date Type Department Care Team (Late st Contact Info) Description 08/14/2021 Transcribed Document [facility] [place] [facility] [place] [address] ProviderMaría MD [facility] [place] [address] Social History Tobacco Use Types [...] Conversion Note - Historical Provider, - 08/14/2021 11:00 PM 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 Admission History, Adult Entered On: 08/15/2021 3:13 EDT Performed On: 08/14/2021 23:00 EST by Venkat Chow Lpn Advance Directive Patient has Advance Directive *Q : Yes, Advance Directive not with the patient Advance Directive Type : Living will Copy Advance Directive Verified/on Chart : No Venkat Chow Lpn - 08/15/2021 1:53 EST Anesthesia/Transfusion History Family History of Anesthesia Reaction : No prior transfusion(s) Transfusion History : No prior anesthesia Family History of Anesthesia Reaction : None Venkat Chow Lpn - 08/15/2021 1:53 EST Functional Assessment Living Situation : Home Patient Lives With : Parent(s) Persons Assisting Patient at Home : Alone Sensory Deficits : None Mobility Assistance Prior to Admission : Independent DESOUZA Hx Falls Immediate/Within 3 Months : No Current Home Treatments : Tracheostomy care Tracheostomy Date of Last Care : 08/14/2021 EST Venkat Chow Lpn - 08/15/2021 1:53 EST General Info Mode of Arrival on Unit : Wheelchair Legal Guardian : Unaccompanied Want Family/Rep/Phys Notified of Admit : No Emergency Contact #1 : Kallie Meredith Emergency Contact #1 Phone Number : [phone] Emergency Contact #1 Relationship : Mother Emergency Contact #2 : NA Emergency Contact #2 Phone Number : NA Emergency Contact #2 Relationship : NA Chief Complaint : pt c/o PEG tube infection, just dc'd from hospital on monday, pt also has a trach placed last month due to resp arrest. trach is also making inspiratory wheezing sounds, sounds like it may be congested. Information Obtained From : Patient Primary Language : Barbadian Communication Barrier : None Thread Spooler Needed : No Venkat Chow Lpn - 08/15/2021 1:53 EST Fall Risk Scales ABCs Fall Injury Risk Identification : Surgery ABC Fall Injury Risk : Moderate to high injury risk Injury Moderate to High Risk Interventions : Bed alarm on, High Risk for Fall Injury sign in place per policy, Personal alarm on, Toileting schedule, Transport methods appropriate to patient DESOUZA Hx Falls Immediate/Within 3 Months : No Desouza Secondary Diagnosis : Yes DESOUZA Use of Ambulatory Aid : Bed rest/Nurse assist DESOUZA IV Therapy or IV Access : Yes Desouza Gait/Transferring : Normal, bedrest, immobile Desouza Mental Status : Oriented to own ability Desouza Fall Risk Score : 35 DESOUZA Fall Scale Risk Level : 25-45 Medium Risk [place] Fall Interventions : Adequate lighting, Bed in low position, Call device within reach, Hourly comfort/safety rounds, Room free of clutter/spills, Wheels locked Fall Moderate to High Risk Interventions : High Risk for Fall sign in place per policy, Transport methods appropriate to patient Venkat Chow Lpn - 08/15/2021 1:53 EST Fall Risk Education Grid Alarms : Verbalizes understanding Call light use : Verbalizes understanding Door Open : Verbalizes understanding Night Light Use : Verbalizes understanding Nonskid Footwear Use : Verbalizes understanding Safety Aids : Verbalizes understanding Siderails use/risks : Verbalizes understanding Wait for Assistance : Verbalizes understanding Venkat Chow Lpn - 08/15/2021 1:53 EST Fall Risk Scale Calc Temp : 1 Veknat Chow [facility] - 08/15/2021 1:53 EST Health Histories Smoking Status : Never (less than 100 in lifetime; none in last 30 days) Smokeless Tobacco Status : Never Venkat Chow Lpn - 08/15/2021 1:53 EST Social History (As Of: 08/15/2021 03:13:12 EDT) Tobacco: Smoking Status Current every day smoker. (Last Updated: 01/06/2017 07:24:00 EDT by Sonia Patricia, EWA) Alcohol: Alcohol Use History No. (Last Updated: 01/06/2017 07:24:04 EDT by Sonia Patricia, EWA) Substance Abuse: Drug Use Hx: No. (Last Updated: 01/06/2017 07:24:08 EDT by Sonia Patricia, EWA) Height and Weight, Clinical Dosing Height Source : Estimated Height Entry Format : [place] Height, Feet : 5 ft(Converted to: 152 cm, 60 Inch) Height, Inches : 1 Inch(Converted to: 0 ft 1 Inch, 2.54 cm) Clinical Height : 154.94 cm Weight Source : Bed scale Weight Entry Format : [place] Clinical Dosing Weight : 138.64 kg Weight, Pounds : 305 lb Body Surface Area (BSA) : 2.26 m2 Body Mass Index : 57.8 kg/m2 (>HHI) [place] Body Weight : 47 kg Venkat Chow [facility] 08/15/2021 1:53 EST Infectious Disease History Does patient have symptoms of COVID-19? : No Has the Patient Been Tested for COVID-19 in the last 14 days? : Yes, Patient stated results Negative Does the Patient state known exposure to a COVID-19 positive case in the last 14 days? : No Patient Vaccinated for COVID-19 : Partially vaccinated or need booster Does Patient want a COVID-19 Vaccine? : No Venkat Chow Clinical Nursing Assistant - 08/15/2021 1:53 EST Infectious Disease Risk Screening Grid Cough < 2 wks of unknown origin : NO Cough > 2 weeks : NO Blood in Sputum : NO Fever or self-reported Fever : NO Rash of unknown origin : NO Headache : NO Stiff neck : NO Night Sweats : NO Unexplained Weight Loss : NO Diarrhea (3 episode per day) : NO Venkat ChowMariano 08/15/2021 1:53 EST Physical contact outside US in the last 30 days : No Hospitalized in Foreign Country : No Infectious Disease History : Chicken pox/Shingles INF Disease TB Screening Calc : 0 INF Disease Recent Travel Calc : 0 Venkat ChowMariano 08/15/2021 1:53 EST Influenza Vaccine Asmt, Adult Previous Vaccines from Immunization Schedule : No qualifying data available. Influenza Immunization, Current Season : Yes Venkat ChowMariano 08/15/2021 1:53 EST Pneumococcal Vaccine Previous Vaccines from Immunization Schedule : No qualifying data available. Pneumonia Immunization Received : No Pneumococcal Risk Assessment < Age 65 : None Venkat ChowMariano 08/15/2021 1:53 EST Order Details Transport Mode Order Detail : Ambulatory Isolation Precautions Order Detail : Standard Precautions IV Order Detail : 1 Patient Needs Meds Crushed/Liquid : No Geraldo Venkat LienMariano 08/15/2021 1:53 EST Nutrition History Feeding Ability : Independent Adaptive Feeding Equipment : None Adaptive Feeding Equipment : Regular Eating Poorly Due to Decreased Appetite : No Unplanned Weight Loss in Past 3-6 Months : Yes Unplanned Weight Loss Amount : 24-33 lbs/10.6-15 kg Malnutrition Screening Tool Total(mal) : 3 Malnutrition Screening Tool Risk Level : Patient at risk Venkat ChowMariano 08/15/2021 1:53 EST [place] Suicide Severity Rating Scale (C-SSRS) CSSRS Past Month Wish to be : Yes CSSRS Past Month Suicidal Thoughts : No CSSRS Lifetime Suicide Behavior : No Suicide Severity Rating Score : 1 Suicide Severity Rating : Low Thoughts of Harming/Killing Others : No Venkat ChowMariano 08/15/2021 1:53 EST Psychosocial History Does Someone Depend on You for Care? : No Do You Have a History of the Following? : Anxiety, Depression, Post Traumatic Stress Disorder, Schizophrenia Currently in Unsafe Situation : No Restraining Order Against Another Person : No Do You Have a Support System? : Yes Who is Your Support System? : Family Hospital/DC Financial Concerns : Yes Stressors Affecting Hospitalization/DC : No Chow Venkat LienMariano 08/15/2021 1:53 EST Sleep Apnea Risk Assmt BiPAP/CPAP Ordered for Home Use : Yes Hx of Obstructive Sleep Apnea Diagnosis : Yes BiPAP/CPAP Used at Home : No Reason BiPAP/CPAP Not Used at Home : not since getting the trach Age over 50 Years Old : No Gender Male : No Venkat Chow Lpn - 08/15/2021 1:53 EST Valuables and Belongings Valuables and Belongings : Clothing, Personal items Clothing : Outerwear Clothing Disposition : Bedside Personal Items : Cell phone Personal Items Disposition : Bedside Venkat Chow Lpn - 08/15/2021 1:53 EST documented in this encounter Plan of Treatment Not on file documented as of this encounter Visit Diagnoses Not on filedocumented in this encounter
--- OUTSIDE RECORDS SUMMARY | 2024-12-07 00:24 | XMS_ITS | Encounter Summary ---
Author Organization [employer] ([place], [place], [place], [place]) Address [address] [place] [address] Care Team Providers Care Academic Affairs Assistant Name Role Phone Unavailable Primary Care Provider Unavailabl e Encounter Details Date Type Department Care Team (Late st Contact Info) Description 08/15/2021 Transcribed Document [facility] [place] Family Medicine [address] [place] [address] ProviderMaría MD [address] [place] [address] Social History Tobacco Use Types [...] Conversion Note - Historical ProviderMD - 08/15/2021 1:29 PM CDT Initial Discharge Planning Entered On: 08/15/2021 13:39 EDT Performed On: 08/15/2021 13:29 EDT by EBEN STEPHENS, RN-Architect [employer] Initial Assessment I Previously Documented Living Environment : No qualifying data available. Living Situation : Home Patient Lives With : Parent(s) Emergency Contact #1 : Kallie Meredith Emergency Contact #1 Phone Number : [phone] Emergency Contact #1 Relationship : Mother/hcs Emergency Contact #2 : NA Emergency Contact #2 Phone Number : NA Emergency Contact #2 Relationship : NA Identified Medical Decision Maker : Kallie Meredith Identified Medical Decision Maker Enter Doctors Name : Beny Chris MD Does Patient have PCP Listed? : Yes Medical Durable Power of Threading Machine Feeder Automatic Name : no Legal Guardian : No Date Hospital Obtained Advance Directive : 08/15/2021 EST Is Guardianship Needed : No EBEN STEPHENS RN-Architect [employer] - 08/15/2021 13:29 EDT Initial Assessment II Sensory and Motor Deficits : Weakness Current Home Treatments and Equipment : Oxygen therapy, Tracheostomy care, Walker Home Equipment Contact Information : [facility] [phone] Does the Patient have a Floor to SNF Benefit? : No EBEN STEPHENS RN-Architect [employer] - 08/15/2021 13:29 EDT Discharge Needs I Anticipated Discharge Date : 08/18/2021 EDT Anticipated Discharge To, CM : Home with home health, Rehabilitation Unit Current Home Treatment/Equipment : Current Home Treatment/Equipment No qualifying data available. Post Acute/Home Treatments : Oxygen therapy, Tracheostomy care, Walker Documentation Status Complete : Yes EBEN STEPHENS RN-Architect [employer] - 08/15/2021 13:29 EDT Discharge Needs II Professional Skilled Services : Professional Skilled Services No qualifying data available. Needs Assistance with Transportation : No Discharge Options Discussed with Patient : Acute rehabilitation, Home Health Patient Discharge Goal : Home health care EBEN STEPHENS RN-Architect [employer] - 08/15/2021 13:29 EDT Narrative Note Narrative Note : HD# 1. elos; not reported. RAR: low 36 ED admit. PEG infection/abd wall inflammation. trach: recent resp arrest. renal failure. anemia. htn. covid 19: negative 3-12. trach collar 28%. zosyn/vanco iv. geodon daily. dilaudid iv. zofran iv. PT/OT. plans to OR tomorrow for PEG removal. previous plans for removal next week as taking po. spoke with Ms. Badillo. she resides in [place] with mom Kallie. has mentioned equipment to include trach & humidified air provided by [facility]. had bipap in past provided by [facility] not now as has trach. no hh. ltac [facility] in [facility]. dcp: acute rehab vs hh. she is adamant about going home. she would consider home health. would like shower chair on dc. she advises mom is poa/hcs. mom to bring copy of document. Kallie Spencer, mom, spoke with Ramesh, bedside RN. alert to family bringing living will EBEN STEPHENS, RN-Architect [employer] - 08/15/2021 13:29 EDT documented in this encounter Plan of Treatment Not on file documented as of this encounter Visit Diagnoses Not on filedocumented in this encounter
--- OUTSIDE RECORDS SUMMARY | 2024-12-07 00:24 | XMS_ITS | Encounter Summary ---
Author Organization [employer] ([place], [place], [place], [place]) Address [address] [place] [address] Care Team Providers Care Chemist Steroids Name Role Phone Unavailable Primary Care Provider Unavailabl e Encounter Details Date Type Department Care Team (Late st Contact Info) Description 08/14/2021 Transcribed Document [facility] [place] [place] Family Medicine [facility]ly [facility] [place] [address] ProviderMaría MD [address] [place] [address] Social History Tobacco Use Types [...] - Historical ProviderMD - 08/14/2021 6:[address] CLERK ED Triage Entered On: 08/14/2021 19:02 EST Performed On: 08/14/2021 18:55 EST by CORTEZ CERVANTES RN ED Triage Across the Room Chief Complaint : pt c/o PEG tube infection, just dc'd from hospital on monday, pt also has a trach placed last month due to resp arrest. trach is also making inspiratory wheezing sounds, sounds like it may be congested. Triage Date/Time : 08/14/2021 18:55 EST CORTEZ CERVANTES RN - 08/14/2021 18:55 EST DCP GENERIC CODE Tracking Acuity : 2 - Emergent Tracking Group : [facility] ED CORTEZ CERVANTES RN - 08/14/2021 18:55 EST Mode of Arrival : Wheelchair Transported to ED by : Private vehicle To Room Via : Wheelchair Accompanied By : Unaccompanied ED Vital Signs : Document Height & Weight : Document ED Allergies : Document ED Reason for Visit : Document CORTEZ CERVANTES RN - 08/14/2021 18:55 EST Infectious Disease History Does patient have [...] Patient want a COVID-19 Vaccine? : No CORTEZ CERVANTES RN - 08/14/2021 18:55 EST Infectious Disease Risk Screening Grid Cough < 2 wks of unknown origin : NO Cough > 2 weeks : NO Blood in Sputum : NO Fever or self-reported Fever : NO Rash of unknown origin : NO Headache : NO Stiff neck : NO Night Sweats : NO Unexplained Weight Loss : NO Diarrhea (3 episode per day) : NO CORTEZ CERVANTES RN - 08/14/2021 18:55 EST Physical contact outside US in the last 30 days : No Hospitalized in Foreign Country : No Infectious Disease History : Chicken pox/Shingles INF Disease TB Screening Calc : 0 INF Disease Recent Travel Calc : 0 CORTEZ CERVANTES RN - 08/14/2021 18:55 EST Vital Signs ED Temperature Source : Oral Temperature Mode : Fahrenheit Temperature, Fahrenheit : 100.6 Deg F ([place]) ED Pain : Yes Clinical Temperature, C : 38.1 Deg C Oxygen Therapy Mode : Room air Peripheral Pulse Rate : 119 bpm ([place]) Respiratory Rate : 20 Breaths/Min Oxygen Saturation : 95 % CORTEZ CERVANTES RN - 08/14/2021 18:55 EST Allergy (As Of: 08/14/2021 19:02:24 EST) Allergies (Active) metoclopramide Estimated Onset Date: Unspecified ; Created By: CONTRIBUTOR_SYSTEMELVIA_FELY; Reaction Status: Active ; Category: Drug ; Substance: metoclopramide ; Type: Allergy ; Severity: Unknown ; Updated By: CONTRIBUTOR_SYSTEM HIST_FELY; Reviewed Date: 08/14/2021 18:58 EST Diagnosis Control ED (As Of: 08/14/2021 19:02:24 EST) Diagnoses(Active) Medical screening exam Date: 08/14/2021 ; Diagnosis Type: Reason For Visit ; Confirmation: Complaint of ; Clinical Dx: Medical screening exam ; Classification: Medical ; Clinical Service: Emergency medicine ; Code: PNED ; Probability: 0 ; Diagnosis Code: [id number] ED Height and Weight Height Source : Stated Height Entry Format : [place] Height, Feet : 5 ft(Converted to: 152 cm, 60 Inch) Height, Inches : 1 Inch(Converted to: 0 ft 1 Inch, 2.54 cm) Clinical Height : 154.94 cm Weight Source, ED : Critical estimated dosing weight Weight Entry Format : [place] Weight, Pounds : 305 lb Clinical Dosing Weight : 138.64 kg Body Surface Area (BSA) : 2.26 m2 Body Mass Index : 57.8 kg/m2 (>HHI) [place] Body Weight (IBW) : 47.45 kg CORTEZ CERVANTES RN - 08/14/2021 18:55 EST Pain Assessment Pain Assessment : Initial assessment Pain Scale Used : FACES CORTEZ CERVANTES RN - 08/14/2021 18:55 EST Pain Scale Intensity : 10 CORTEZ CERVANTES RN - 08/14/2021 18:55 EST Image 4 - Images currently included in the form version of this document have not been included in the text rendition version of the form. documented in this encounter Plan of Treatment Not on file documented as of this encounter Visit Diagnoses Not on filedocumented in this encounter
--- OUTSIDE RECORDS SUMMARY | 2024-12-07 00:24 | XMS_ITS | Encounter Summary ---
Author Organization [employer] ([place], [place], [place], [place]) Address [address] [place] [address] Care Team Providers Care Care Companion Name Role Phone Unavailable Primary Care Provider Unavailabl e Encounter Details Date Type Department Care Team (Late st Contact Info) Description 09/30/2021 Transcribed Document [facility] [place] Family Medicine [facility] [place] [address] ProviderMaría MD [address] [place] [address] Social History Tobacco Use Types [...] ProviderMD - 09/30/2021 4:19 PM CDT ED Assessment Entered On: 09/30/2021 16:53 EDT Performed On: 09/30/2021 16:50 EDT by Leo Belle RN ED Quick Look Assessment Level of Consciousness : Alert Affect/Behavior : Appropriate, Anxious, Crying Orientation : Oriented x 4 Skin Temperature : Warm Skin Description : Normal for ethnicity eLo Belle RN - 09/30/2021 16:50 EDT ED General-Functional Assess Information Obtained From : Patient Communication Barrier : None Primary Language : Polish Any Spiritual/Cultural Needs or Requests : No Currently in Unsafe Situation : No Leo Belle RN - 09/30/2021 16:50 EDT Social Habits Smoking Status : Smoker, current status unknown Smokeless Tobacco Status : Never Desires Tobacco Cessation Medication : No Reason for No Tobacco Cessation Medication : ED/procedural patient only Desires Tobacco Cessation Calc : 1 Leo Belle RN - 09/30/2021 16:50 EDT Social History (As Of: 09/30/2021 16:53:42 EDT) Tobacco: Smoking Status Current every day smoker. (Last Updated: 01/06/2017 07:24:00 EDT by Sonia Patricia, EWA) Alcohol: Alcohol Use History No. (Last Updated: 01/06/2017 07:24:04 EDT by Sonia Patricia, EWA) Substance Abuse: Drug Use Hx: No. (Last Updated: 01/06/2017 07:24:08 EDT by Sonia Patricia, EWA) Cardiovascular ASMT, ED Cardiovascular Assessment WDL : WDL with exceptions (Comment: no chest pain, pedal pulses palpable, 2+edema to bilateral ankles/feet [Leo Belle RN - 09/30/2021 16:50 EDT] ) Leo Belle RN - 09/30/2021 16:50 EDT Respiratory Respiratory Assessment WDL : WDL with exceptions (Comment: rales/rhonchi, resps slightly labored, trach suctioned per RT with thin/frothy secretions. [Leo Belle RN - 09/30/2021 16:50 EDT] ) Leo Belle RN - 09/30/2021 16:50 EDT Neurologic ASMT, ED Neurologic Assessment WDL : WDL Leo Belle RN - 09/30/2021 16:50 EDT documented in this encounter Plan of Treatment Not on file documented as of this encounter Visit Diagnoses Not on filedocumented in this encounter
--- OUTSIDE RECORDS SUMMARY | 2024-12-07 00:24 | XMS_ITS | Encounter Summary ---
Author Organization [employer] ([place], [place], [place], [place]) Address [address] [place] [address] Care Team Providers Care Tank Worker Name Role Phone Unavailable Primary Care Provider Unavailabl e Encounter Details Date Type Department Care Team (Late st Contact Info) Description 08/19/2021 Transcribed Document [facility] [place] Family Medicine [facility] [place] [address] ProviderMaría MD [address] [place] [address] Social History Tobacco Use Types Packs/Day Years Used Date Smoking Tobacco: Never Assessed Comments Unknown Sex and Gender Information Value Date Recorded Sex Assigned at Female 11/30/2021 3:01 PM CDT Legal Sex Female 3:01 PM CDT Gender Identity Female 11/30/2021 3:01 PM CDT Sexual Orientation Not on file documented as of this encounter Miscellaneous Notes * Cerner Conversion Note - María ProviderMD - 08/19/2021 1:01 PM CDT Patient Resource [facility] Entered On: 08/19/2021 13:02 EDT Performed On: 08/19/2021 13:01 EDT by Anum Christopher, FRONT OFFICE ASSISTANT Patient Resource Center Provider Status : EST Other Established Provider Name : Beny Chris Patient Phone Number : [phone] Patient Insurance Type : Medicaid (ex. Well[employer], Passport) Source of Referral : Case management Location of Patient : Case management referral Primary Care Scheduled : Yes Primary Care Scheduled Type : Non CMG Primary Care Provider Name : Beny Dot Primary Care Appointment Date/Time : 08/30/2021 11:30 EDT Specialty Care Scheduled : No Qualify for Diabetes and/or Nutrition Referral : No Wound Care Appointment Made : No Why Patient Visited ED- Specialty spent : Other How Patient Arrived at ED : Other Primary Language : Romansh Patient Resource Center Comment : Patient needed primary care follow up appointment. Primary care follow up appointment has been made. Follow Up Needed : Anum Moscoso, FRONT OFFICE ASSISTANT - 08/19/2021 13:01 EDT documented in this encounter Plan of Treatment Not on file documented as of this encounter Visit Diagnoses Not on filedocumented in this encounter
--- OUTSIDE RECORDS SUMMARY | 2024-12-07 00:25 | XMS_ITS | Encounter Summary ---
Author Organization [employer] ([place], [place], [place], [place]) Address [address] [place] [address] Care Team Providers Care Patch Washer Name Role Phone Unavailable Primary Care Provider Unavailabl e Encounter Details Date Type Department Care Team (Late st Contact Info) Description 08/17/2021 Transcribed Document [facility] [place] Family Medicine [place] [address] ProviderMaría MD [address] [place] [address] Social History Tobacco Use Types [...] Conversion Note - Historical ProviderMD - 08/17/2021 12:05 PM CDT Patient: CARIN LUCERO Age: 46 years Sex: Female : 1975 Associated Diagnoses: None Author: Todd Davidson, REAMING PRESS OPERATOR-PHARMACIST Pain Management Pharmacy Consultation HPI: [id number] [...] respiratory arrest last month and admitted to [facility]. Patient CO2 was reportedly greater than 100. Patient was admitted and eventually had to have a trach and peg placed. Patient was tolerating po intake and was about to have peg tube removed next week. Relevant PMH: peg tube placement, recent respiratory arrest, obstructive sleep apnea, tobacco abuse, morbid obesity. Indication: pain capacity management specialist MD: Saleem Jimenes Allergies: metoclopramide Outpatient Pain Regimen: gabapentin 300mg tid Current Inpatient Pain Regimen: Apap 1g oral tablet tid Gabapentin 300mg oral tablet tid Oxycodone 5mg oral tablet q4h Hydromorphone 2mg oral tablet q4h prn for pain Current Available MMEs: 93MMes MME Utilization in Previous 24 Hours: 102.5 MMes Labs (Last four charted values) WBC 6.2 (AUG 17) 7.3 (AUG 16) 9.6 (AUG 14) HB L 9.5 (AUG 17) L 9.8 (AUG 16) L 10.7 (AUG 14) HCT L 31.1 (AUG 17) L 31.7 (AUG 16) L 32.8 (AUG 14) Plt 172 (AUG 17) L 161 (AUG 16) 186 (AUG 14) Na 138 (AUG 17) 139 (AUG 14) 136 (AUG 12) K 4.4 (AUG 17) 4.5 (AUG 14) 3.6 (AUG 12) Cl 102 (AUG 17) 102 (AUG 14) L 100 (AUG 14) CO2 29 (AUG 15) 32 (AUG 14) 31 (AUG 12) BUN H 35 (AUG 15) 22 (AUG 14) 17 (AUG 12) Cr H 1.80 (AUG 17) H 1.50 (AUG 14) H 1.20 (AUG 12) Glu R H 113 (AUG 17) H 111 (AUG 14) H 115 (AUG 12) Ca L 8.2 (AUG 15) 8.5 (AUG 14) 8.5 (AUG 12) Lactic 1.0 (AUG 14) PT 9.7 (AUG 14) INR 0.9 (AUG 14) PTT 27.5 (AUG 14) AST 12 (AUG 14) ALT 19 (AUG 14) ALK P 65 (AUG 14) T Bili 0.2 (AUG 14) PTN 7.2 (AUG 14) ALB L 2.6 (AUG 14) A/P: 08/17: 1. [...] Rx will continue to follow patient status. Thank you for this consult. Todd Davidson PharmD Candidate 2021 documented in this encounter Plan of Treatment Not on file documented as of this encounter Visit Diagnoses Not on filedocumented in this encounter
--- OUTSIDE RECORDS SUMMARY | 2024-12-07 00:25 | XMS_ITS | Encounter Summary ---
Author Organization [employer] ([place], [place], [place], [place]) Address [address] [place] [address] Care Team Providers Care Television Agent Name Role Phone Unavailable Primary Care Provider Unavailabl e Encounter Details Date Type Department Care Team (Late st Contact Info) Description 08/17/2021 Transcribed Document [facility] [place] [facility] [place] [address] ProviderMaría MD [address] [place] [address] Social History Tobacco Use Types [...] Conversion Note - Historical ProviderMD - 08/17/2021 6:00 AM CDT Pain Assessment Entered On: 08/17/2021 6:08 EDT Performed On: 08/17/2021 6:42 EDT by MARIANELA TOBAR RN Flex II Intervention Information: oxyCODONE Performed by MARIANELA TOBAR RN Flex II on 08/17/2021 05:42:00 EDT oxyCODONE,5mg Oral Pain Assessment Pain Assessment : Follow-up assessment Pain Scale Goal : 4 Pain Scale Used : 0-10 Scale MARIANELA TOBAR RN Flex II - 08/17/2021 6:08 EDT Pain Scale Intensity : 3 MARIANELA TOBAR RN Flex II - 08/17/2021 6:08 EDT Image 4 - Images currently included in the form version of this document have not been included in the text rendition version of the form. documented in this encounter Plan of Treatment Not on file documented as of this encounter Visit Diagnoses Not on filedocumented in this encounter
--- OUTSIDE RECORDS SUMMARY | 2024-12-07 00:25 | XMS_ITS | Encounter Summary ---
Author Organization [employer] ([place], [place], [place], [place]) Address [address] [place] [address] Care Team Providers Care Social Director Name Role Phone Unavailable Primary Care Provider Unavailabl e Encounter Details Date Type Department Care Team (Late st Contact Info) Description 08/19/2021 Transcribed Document [facility] Family Medicine [facility] [place] [address] ProviderMaría MD [address] [place] [address] Social History Tobacco Use Types [...] Conversion Note - Historical ProviderMD - 08/19/2021 3:18 PM CDT [facility] [place], [place] [id number] ZANDER LUCERO :1975 Visit Time:08/14/2021 Your Visit Summary Your Care Team Admitting Physician - EDUARD DE LOS SANTOS DO-INT Attending Physician - MARCY PEDROZA MD-INT Primary Care Physician - EMY MUSA (REF)MD-NHUNG Referring Physician - ANTONELLA, CAL Your Diagnosis Abdominal pain Abdominal pain Infection of PEG site Medical screening exam Sepsis, unspecified organism, Sepsis, unspecified organism These Are Your Goals Patient Discharge Goal Patient Discharge Goal: Home health care What to do next Instructions From Your Care Team Please STOP taking these home medications: 1. Budesonide 2. Hydralazine Home Health Services: [facility] [phone] Medical Equipment for Home Use: Patient Aides (your medical equipment provider)[phone] Transportation: family Discharge Activity: Discharge Activity: Activity as tolerated Diet: Discharge Diet: Heart healthy diet Follow-Up Appointments Follow Up with EMY MUSA (REF)ZACHARY When 08/30/2021 11:30 AM EDT Comments Primary care follow up appointment has been made Bring discharge instructions with you Where: [address] [place] [address] THANH Philippe [address]- [phone] Medications What How Much When Instructions Next Dose carvedilol (carvedilol 12.5 mg oral tablet) 1 Tablet(s) Oral Two Times A Day Duration: 30 Day(s) Pickup at [facility] [place] [address] 9 doxycycline (doxycycline hyclate 100 mg oral tablet) 1 Tablet(s) Oral Two Times A Day Duration: 7 Day(s) Pickup at [place] [address] 9 guaiFENesin (Mucinex 600 mg oral tablet, extended release) 2 Tablet(s) Oral Two Times A Day Duration: 7 Day(s) Pickup at [facility] [place] [address] 9 metroNIDAZOLE (Flagyl 500 mg oral tablet) 1 Tablet(s) Oral Three Times A Day Duration: 6 Day(s) Pickup at [place] [address] 9 furosemide (furosemide 20 mg oral tablet) 1 Tablet(s) Oral Every Day lamoTRIgine (lamoTRIgine 100 mg oral tablet) 1 Tablet(s) Oral Every Day 30 Each levothyroxine (levothyroxine 25 mcg (0.025 mg) oral tablet) 1 Tablet(s) Oral Every Day 30 Each vilazodone (Viibryd 40 mg oral tablet) 1 Tablet(s) Oral Every Day 90 Each acetaminophen-hydrocodone (acetaminophen-HYDROcodone 325 mg-5 mg oral tablet) 1 Tablet(s) Oral Two Times A Day as needed for Pain (Severe 7-10) albuterol (albuterol 2.5 mg/ 3 mL (0.083%) inhalation solution) 3 Milliliter(s) Inhalation Every 6 Hours as needed for wheezing albuterol (ProAir HFA 90 mcg/ inh inhalation aerosol) 2 Puff(s) Inhalation Every 6 Hours as needed for Wheezing clonazePAM (clonazePAM 0.5 mg oral tablet) 1 Tablet(s) Oral Three Times A Day as needed for Anxiety fluticasone/ umeclidinium/ vilanterol (Trelegy Ellipta 100 mcg-62.5 mcg-25 mcg/ inh inhalation powder) 1 Puff(s) Inhalation Every Day gabapentin (gabapentin 300 mg oral capsule) 1 Capsule(s) Oral Three Times A Day Replaces 800mg dose omeprazole (omeprazole 40 mg oral delayed release capsule) 1 Capsule(s) Oral Every Day before a meal SUMAtriptan (SUMAtriptan 100 mg oral tablet) 1 Tablet(s) Oral One Time Order as needed for as needed for migraine headache may repeat dose after 2 hours up to a maximum of 200 mg in 24 hours ziprasidone (ziprasidone 40 mg oral capsule) 1 Capsule(s) Oral Two Times A Day Pharmacy Information [facility] [place]: [address] [facility] [address] [place], [place] [id number] [phone] Take your medications faithfully. Do NOT skip [...] Please dispose of unused and medications per your retail pharmacy guidance. Allergies metoclopramide Immunizations This Visit No Immunizations Found Education Materials PEG Tube Removal A PEG tube (percutaneous [...] including vitamins, herbs, eye drops, creams, and saku-zru-atczpjs medicines. ??? Any problems you or family [...] tells you to take them. ? Taking xfyc-pej-xbwoypy medicines, vitamins, herbs, and supplements. ??? Do [...] provider. Document Revised: 10/02/2020 Document Reviewed: 10/02/2020 [employer] Patient Education ?? 2020 [employer]. amoxicillin and clavulanate potassium (am OK i RAVINDRA in KLAV ue RAMAN ate alana TAS ee um) Augmentin What is the most important information I should know about amoxicillin and clavulanate potassium? You should not use this medicine if you have severe kidney disease, if you have had liver problems or jaundice while taking amoxicillin and clavulanate potassium, or if you are allergic to any penicillin or cephalosporin antibiotic, such as Amoxil, Ceftin, Cefzil, Moxatag, Omnicef, and others. What is amoxicillin and clavulanate potassium? Amoxicillin is a penicillin antibiotic. Clavulanate potassium helps prevent certain bacteria from becoming resistant to amoxicillin. Amoxicillin and clavulanate potassium is a combination medicine used to treat many different infections caused by bacteria, such as sinusitis, pneumonia, ear infections, bronchitis, urinary tract infections, and infections of the skin. Amoxicillin and clavulanate potassium may also be used for purposes not listed in this medication guide. What should I discuss with my healthcare provider before taking amoxicillin and clavulanate potassium? You should not use this medicine if you are allergic to it, or if: ?? you have severe kidney disease (or if you are on dialysis); ?? you have had liver problems or jaundice while taking amoxicillin and clavulanate potassium; or ?? you are allergic to any penicillin or cephalosporin antibiotic, such as Amoxil, Ceftin, Cefzil, Moxatag, Omnicef, and others. Tell your doctor if you have ever had: ?? liver disease (hepatitis or jaundice); ?? kidney disease; or ?? mononucleosis. The liquid or chewable tablet may contain phenylalanine. Tell your doctor if you have phenylketonuria (PKU). Tell your doctor if you are or . Amoxicillin and clavulanate potassium can make control pills less effective. Ask your doctor about using a non-hormonal control (condom, diaphragm, cervical cap, or contraceptive sponge) to prevent . Do not give this medicine to a child without medical advice. How should I take amoxicillin and clavulanate potassium? Follow all directions on your prescription label and read all medication guides or instruction sheets. Use the medicine exactly as directed. Amoxicillin and clavulanate potassium may work best if you take it at the start of a meal. Take the medicine every 12 hours. Do not crush or chew the extended-release tablet. Swallow the pill whole, or break the pill in half and take both halves one at a time. Tell your doctor if you have trouble swallowing a whole or half pill. You must chew the chewable tablet before you swallow it. Shake the oral suspension (liquid) before you measure a dose. Use the dosing syringe provided, or use a medicine dose-measuring device (not a kitchen spoon). This medicine can affect the results of certain medical tests. Tell any doctor who treats you that you are using amoxicillin and clavulanate potassium. Use this medicine for the full prescribed length of time, even if your symptoms quickly improve. Skipping doses can increase your risk of infection that is resistant to medication. Amoxicillin and clavulanate potassium will not treat a viral infection such as the flu or a common cold. Store the tablets at room temperature away from moisture and heat. Store the liquid in the refrigerator. Throw away any unused liquid after 10 days. What happens if I miss a dose? Take the medicine as soon as you can, but skip the missed dose if it is almost time for your next dose. Do not take two doses at one time. What happens if I overdose? Seek emergency medical attention or call the Poison Help line at . Overdose can cause nausea, vomiting, stomach pain, diarrhea, skin rash, drowsiness, hyperactivity, and decreased urination. What should I avoid while taking amoxicillin and clavulanate potassium? Avoid taking this medicine together with or just after eating a high-fat meal. This will make it harder for your body to absorb the medication. Antibiotic medicines can cause diarrhea, which may be a sign of a new infection. If you have diarrhea that is watery or bloody, call your doctor before using anti-diarrhea medicine. What are the possible side effects of amoxicillin and clavulanate potassium? Get emergency medical help if you have signs of an allergic reaction (hives, difficult breathing, swelling in your face or throat) or a severe skin reaction (fever, sore throat, burning eyes, skin pain, red or purple skin rash with blistering and peeling). Call your doctor at once if you have: ?? severe stomach pain, diarrhea that is watery or bloody (even if it occurs months after your last dose); ?? pale or yellowed skin, dark colored urine, fever, confusion or weakness; ?? loss of appetite, upper stomach pain; ?? little or no urination; or ?? easy bruising or bleeding. Common side effects may include: ?? nausea, vomiting; diarrhea; ?? rash, itching; ?? vaginal itching or discharge; or ?? diaper rash. This is not a complete list of side effects and others may occur. Call your doctor for medical advice about side effects. You may report side effects to FDA at 1-065-GRK-1147. What other drugs will affect amoxicillin and clavulanate potassium? Tell your doctor about all your other medicines, especially: ?? allopurinol; ?? probenecid; or ?? a blood thinner--warfarin, Coumadin, Jantoven. This list is not complete. Other drugs may affect amoxicillin and clavulanate potassium, including prescription and fkcn-qft-vcqtxzc medicines, vitamins, and herbal products. Not all possible drug interactions are listed here. Where can I get more information? Your pharmacist can provide more information about amoxicillin and clavulanate potassium. Remember, keep this and all other medicines out of the reach of children, never share your medicines with others, and use this medication only for the indication prescribed. Every effort has been made to ensure that the information provided by [employer] is accurate, up-to-date, and complete, but no guarantee is made to that effect. Drug information contained herein may be time sensitive. [employer] information has been compiled for use by healthcare practitioners and consumers in the [place] and therefore [employer] does not warrant that uses outside of the [place] are appropriate, unless specifically indicated otherwise. [employer] drug information does not endorse drugs, diagnose patients or recommend therapy. [employer] drug information is an informational resource designed to assist licensed healthcare practitioners in caring for their patients and/or to serve consumers viewing this service as a supplement to, and not a substitute for, the expertise, skill, knowledge and judgment of healthcare practitioners. The absence of a warning for a given drug or drug combination in no way should be construed to indicate that the drug or drug combination is safe, effective or appropriate for any given patient. [employer] does not assume any responsibility for any aspect of healthcare administered with the aid of information [employer] provides. The information contained herein is not intended to cover all possible uses, directions, precautions, warnings, drug interactions, allergic reactions, or adverse effects. If you have questions about the drugs you are taking, check with your doctor, nurse or pharmacist. Copyright 1406-9540 [employer]. Version: 12.. Revision Date: 07/29/2019. carvedilol (AVEL ve dil ole) Coreg, Coreg CR What is the most important information I should know about carvedilol? You should not take carvedilol if you have asthma, bronchitis, emphysema, severe liver disease, or a serious heart condition such as heart block, 'sick sinus syndrome,' or slow heart rate (unless you have a pacemaker). What is carvedilol? Carvedilol is a beta-kavin that is used to treat heart failure and hypertension (high blood pressure). Carvedilol is also used after a heart attack that has caused your heart not to pump as well. Carvedilol may also be used for purposes not listed in this medication guide. What should I discuss with my healthcare provider before taking carvedilol? You should not take carvedilol if you are allergic to it, or if you have: ?? asthma, bronchitis, emphysema; ?? severe liver disease; or ?? a serious heart condition such as severe heart failure, heart block, 'sick sinus syndrome,' or slow heart rate (unless you have a pacemaker). Tell your doctor if you have ever had: ?? coronary artery disease (clogged arteries); ?? slow heartbeats that have caused you to faint; ?? fluid retention; ?? asthma or other lung problems; ?? angina (chest pain); ?? diabetes (taking carvedilol can make it harder for you to tell when you have low blood sugar); ?? a thyroid disorder; ?? kidney disease; ?? circulation problems (such as Raynaud's syndrome); or ?? pheochromocytoma (tumor of the adrenal gland). Tell your doctor if you are or . Carvedilol is not approved for use by anyone younger than 18 years old. How should I take carvedilol? Follow all directions on your prescription label and read all medication guides or instruction sheets. Your doctor may occasionally change your dose. Use the medicine exactly as directed. Carvedilol works best if you take it with food, at the same time every day. Swallow the extended-release capsule whole and do not crush, chew, break, or open it. If you cannot swallow a capsule whole, open it and sprinkle the medicine into a spoonful of cold applesauce. Swallow the mixture right away without chewing. Do not save it for later use. If you are switched from carvedilol tablets to carvedilol extended-release capsules (Coreg CR), your daily total dose of this medicine may be higher or lower than before. Older adults may be more likely to become dizzy or feel faint when switching from tablets to extended-release capsules. Follow your doctor's instructions. Your blood pressure will need to be checked often. If you need surgery (including cataract surgery), tell your surgeon you currently use this medicine. You may need to stop for a short time. You should not stop using carvedilol suddenly. Stopping suddenly may cause chest pain or a heart attack. Follow your doctor's instructions about tapering your dose. If you are being treated for high blood pressure, keep using this medication even if you feel well. High blood pressure often has no symptoms. You may need to use blood pressure medication for the rest of your life. Carvedilol is only part of a complete treatment program that may also include diet, exercise, and weight control. Follow your doctor's instructions very closely. Store at room temperature away from moisture and heat. What happens if I miss a dose? Take the medicine as soon as you can, but skip the missed dose if it is almost time for your next dose. Do not take two doses at one time. What happens if I overdose? Seek emergency medical attention or call the Poison Help line at . Overdose symptoms may include uneven heartbeats, shortness of breath, bluish-colored fingernails, dizziness, weakness, fainting, and seizure (convulsions). What should I avoid while taking carvedilol? Avoid driving or hazardous activity until you know how this medicine will affect you. Your reactions could be impaired. Avoid getting up too fast from a sitting or lying position, or you may feel dizzy. What are the possible side effects of carvedilol? Get emergency medical help if you have signs of an allergic reaction: hives; difficulty breathing; swelling of your face, lips, tongue, or throat. Call your doctor at once if you have: ?? a light-headed feeling, like you might pass out; ?? slow or uneven heartbeats; ?? cold feeling or numbness in your fingers or toes; ?? chest pain, dry cough, wheezing, chest tightness; ?? heart problems--swelling, rapid weight gain, feeling short of breath; or ?? high blood sugar--increased thirst, increased urination, dry mouth, fruity breath odor. Common side effects may include: ?? dizziness; ?? slow heartbeats; ?? diarrhea; ?? weight gain; ?? dry eyes; or ?? problems wearing contact lenses. This is not a complete list of side effects and others may occur. Call your doctor for medical advice about side effects. You may report side effects to FDA at 3-177-XDT-9982. What other drugs will affect carvedilol? Sometimes it is not safe to use certain medications at the same time. Some drugs can affect your blood levels of other drugs you take, which may increase side effects or make the medications less effective. Other drugs may affect carvedilol, including prescription and swsd-otz-zaydywz medicines, vitamins, and herbal products. Tell your doctor about all your current medicines and any medicine you start or stop using. Where can I get more information? Your pharmacist can provide more information about carvedilol. Remember, keep this and all other medicines out of the reach of children, never share your medicines with others, and use this medication only for the indication prescribed. Every effort has been made to ensure that the information provided by [employer] is accurate, up-to-date, and complete, but no guarantee is made to that effect. Drug information contained herein may be time sensitive. [employer] information has been compiled for use by healthcare practitioners and consumers in the [place] and therefore [employer] does not warrant that uses outside of the [place] are appropriate, unless specifically indicated otherwise. [employer] drug information does not endorse drugs, diagnose patients or recommend therapy. [employer] drug information is an informational resource designed to assist licensed healthcare practitioners in caring for their patients and/or to serve consumers viewing this service as a supplement to, and not a substitute for, the expertise, skill, knowledge and judgment of healthcare practitioners. The absence of a warning for a given drug or drug combination in no way should be construed to indicate that the drug or drug combination is safe, effective or appropriate for any given patient. [employer] does not assume any responsibility for any aspect of healthcare administered with the aid of information [employer] provides. The information contained herein is not intended to cover all possible uses, directions, precautions, warnings, drug interactions, allergic reactions, or adverse effects. If you have questions about the drugs you are taking, check with your doctor, nurse or pharmacist. Copyright 3512-1514 [employer]. Version: 16.01. Revision Date: 09/27/2018. doxycycline (oral/injection) (DOX katie dumont) Acticlate, Adoxa, Alodox, Avidoxy, Doryx, Mondoxyne NL, Monodox, Morgidox, Okebo, Oracea, Oraxyl, Targadox, Vibramycin What is the most important information I should know about doxycycline? You should not take this medicine if you are allergic to any tetracycline antibiotic. Children younger than 8 years old should use doxycycline only in cases of severe or life-threatening conditions. This medicine can cause permanent yellowing or graying of the teeth in children Using doxycycline during could harm the unborn baby or cause permanent tooth discoloration later in the baby's life. What is doxycycline? Doxycycline is a tetracycline antibiotic that Doxycycline is used to treat many different bacterial infections, such as acne, urinary tract infections, intestinal infections, eye infections, gonorrhea, chlamydia, periodontitis (gum disease), and others. Doxycycline is also used to treat blemishes, bumps, and acne-like lesions caused by rosacea. Doxycycline will not treat facial redness caused by rosacea. Some forms of doxycycline are used to prevent malaria, to treat anthrax, or to treat infections caused by mites, ticks, or lice. Doxycycline may also be used for purposes not listed in this medication guide. What should I discuss with my healthcare provider before taking doxycycline? You should not take this medicine if you are allergic to doxycycline or other tetracycline antibiotics such as demeclocycline, minocycline, tetracycline, or tigecycline. Tell your doctor if you have ever had: ?? liver disease; ?? kidney disease; ?? asthma or sulfite allergy; ?? increased pressure inside your skull; or ?? if you also take isotretinoin, seizure medicine, or a blood thinner such as warfarin (Coumadin). If you are using doxycycline to treat gonorrhea, your doctor may test you to make sure you do not also have syphilis, another sexually transmitted disease. Taking this medicine during may affect tooth and bone development in the unborn baby. Taking doxycycline during the last half of can cause permanent tooth discoloration later in the baby's life. Tell your doctor if you are or if you become . Doxycycline can make control pills less effective. Ask your doctor about using a non-hormonal control (condom, diaphragm with spermicide) to prevent . Doxycycline can pass into breast milk and may affect bone and tooth development in a nursing . Do not breastfeed while you are taking doxycycline. Doxycycline can cause permanent yellowing or graying of the teeth in children younger than 8 years old. Children should use doxycycline only in cases of severe or life-threatening conditions such as anthrax or [place] spotted fever. The benefit of treating a serious condition may outweigh any risks to the child's tooth development. How should I take doxycycline? Follow all directions on your prescription label and read all medication guides or instruction sheets. Use the medicine exactly as directed. Take doxycycline with a full glass of water. Drink plenty of liquids while you are taking doxycycline. Read and carefully follow any Instructions for Use provided with your medicine. Ask your doctor or pharmacist if you do not understand these instructions. Most brands of doxycyline may be taken with food or milk if the medicine upsets your stomach. Different brands of doxycycline may have different instructions about taking them with or without food. Take Oracea on an empty stomach, at least 1 hour before or 2 hours after a meal. You may need to split a doxycycline tablet to get the correct dose. Follow your doctor's instructions. Swallow a delayed-release capsule or tablet whole. Do not crush, chew, break, or open it. Measure liquid medicine with the dosing syringe provided, or with a special dose-measuring spoon or medicine cup. If you do not have a dose-measuring device, ask your pharmacist for one. If you take doxycycline to prevent malaria: Start taking the medicine 1 or 2 days before entering an area where malaria is common. Continue taking the medicine every day during your stay and for at least 4 weeks after you leave the area. Doxycycline is usually given by injection only if you are unable to take the medicine by mouth. A healthcare provider will give you this injection as an infusion into a vein. Use this medicine for the full prescribed length of time, even if your symptoms quickly improve. Skipping doses can increase your risk of infection that is resistant to medication. Doxycycline will not treat a viral infection such as the flu or a common cold. Store at room temperature away from moisture, heat, and light. Throw away any unused medicine after the expiration date on the label has passed. Using doxycycline can cause damage to your kidneys. What happens if I miss a dose? Take the medicine as soon as you can, but skip the missed dose if it is almost time for your next dose. Do not take two doses at one time. What happens if I overdose? Seek emergency medical attention or call the Poison Help line at . What should I avoid while taking doxycycline? Do not take iron supplements, multivitamins, calcium supplements, antacids, or laxatives within 2 hours before or after taking doxycycline. Avoid taking any other antibiotics with doxycycline unless your doctor has told you to. Doxycycline could make you sunburn more easily. Avoid sunlight or tanning beds. Wear protective clothing and use sunscreen (SPF 30 or higher) when you are outdoors. Antibiotic medicines can cause diarrhea, which may be a sign of a new infection. If you have diarrhea that is watery or bloody, call your doctor. Do not use anti-diarrhea medicine unless your doctor tells you to. What are the possible side effects of doxycycline? Get emergency medical help if you have signs of an allergic reaction (hives, difficult breathing, swelling in your face or throat) or a severe skin reaction (fever, sore throat, burning in your eyes, skin pain, red or purple skin rash that spreads and causes blistering and peeling). Seek medical treatment if you have a serious drug reaction that can affect many parts of your body. Symptoms may include: skin rash, fever, swollen glands, flu-like symptoms, muscle aches, severe weakness, unusual bruising, or yellowing of your skin or eyes. This reaction may occur several weeks after you began using doxycycline. Call your doctor at once if you have: ?? severe stomach pain, diarrhea that is watery or bloody; ?? throat irritation, trouble swallowing; ?? chest pain, irregular heart rhythm, feeling short of breath; ?? little or no urination; ?? low white blood cell counts--fever, chills, swollen glands, body aches, weakness, pale skin, easy bruising or bleeding; ?? increased pressure inside the skull--severe headaches, ringing in your ears, dizziness, nausea, vision problems, pain behind your eyes; or ?? signs of liver or pancreas problems--loss of appetite, upper stomach pain (that may spread to your back), tiredness, nausea or vomiting, fast heart rate, dark urine, jaundice (yellowing of the skin or eyes). Common side effects may include: ?? nausea, vomiting, upset stomach, loss of appetite; ?? mild diarrhea; ?? skin rash or itching; ?? darkened skin color; or ?? vaginal itching or discharge. This is not a complete list of side effects and others may occur. Call your doctor for medical advice about side effects. You may report side effects to FDA at 4-516-PPF-5186. What other drugs will affect doxycycline? Sometimes it is not safe to use certain medications at the same time. Some drugs can affect your blood levels of other drugs you take, which may increase side effects or make the medications less effective. Other drugs may affect doxycycline, including prescription and oqaz-bjz-diykoqh medicines, vitamins, and herbal products. Tell your doctor about all your current medicines and any medicine you start or stop using. Where can I get more information? Your pharmacist can provide more information about doxycycline. Remember, keep this and all other medicines out of the reach of children, never share your medicines with others, and use this medication only for the indication prescribed. Every effort has been made to ensure that the information provided by [employer]. ('[employer]') is accurate, up-to-date, and complete, but no guarantee is made to that effect. Drug information contained herein may be time sensitive. [employer] information has been compiled for use by healthcare practitioners and consumers in the [place] and therefore [employer] does not warrant that uses outside of the [place] are appropriate, unless specifically indicated otherwise. [employer] drug information does not endorse drugs, diagnose patients or recommend therapy. [employer] drug information is an informational resource designed to assist licensed healthcare practitioners in caring for their patients and/or to serve consumers viewing this service as a supplement to, and not a substitute for, the expertise, skill, knowledge and judgment of healthcare practitioners. The absence of a warning for a given drug or drug combination in no way should be construed to indicate that the drug or drug combination is safe, effective or appropriate for any given patient. [employer] does not assume any responsibility for any aspect of healthcare administered with the aid of information [employer] provides. The information contained herein is not intended to cover all possible uses, directions, precautions, warnings, drug interactions, allergic reactions, or adverse effects. If you have questions about the drugs you are taking, check with your doctor, nurse or pharmacist. Copyright 8161-9318 [employer]. Version: 21.04. Revision Date: 04/08/2020. metronidazole (oral/injection) (me cruz dorman) FIRST Antolin Russo What is the most important information I should know about metronidazole? Do not drink alcohol or consume foods or medicines that contain propylene glycol while you are taking metronidazole and for at least 3 days after you stop taking it. Metronidazole has caused cancer in animal studies. However, it is not known whether this would occur in humans. Ask your doctor about your risk. What is metronidazole? Metronidazole is an antibiotic that is used to treat bacterial infections of the vagina, stomach, liver, skin, joints, brain and spinal cord, lungs, heart, or bloodstream. Metronidazole is also used to treat trichomoniasis, a sexually transmitted disease caused by a parasite. Usually both sexual partners are treated at the same time, even if one has no symptoms. Do not use metronidazole to treat any condition that has not been checked by your doctor. Metronidazole may also be used for purposes not listed in this medication guide. What should I discuss with my healthcare provider before using metronidazole? You should not use this medicine if you are allergic to metronidazole, secnidazole, or tinidazole, or if: ?? you drank alcohol in the past 3 days; ?? you consumed foods or medicines that contain propylene glycol in the past 3 days; or ?? you took disulfiram (Antabuse) within the past 14 days. May harm an unborn baby. Do not use metronidazole to treat trichomoniasis during the first trimester of . Tell your doctor if you become . Not all uses of metronidazole are approved for treating children and teenagers. Metronidazole is not approved to treat vaginal infections in girls who have not begun having menstrual periods. Tell your doctor if you have ever had: ?? liver disease; ?? kidney disease (or if you are on dialysis); ?? a heart rhythm disorder; ?? a stomach or intestinal disease such as Crohn's disease; ?? a blood cell disorder such as anemia (lack of red blood cells) or low white blood cell (WBC) counts; ?? a fungal infection anywhere in your body; or ?? a nerve disorder. Metronidazole has caused cancer in animal studies. However, it is not known whether this would occur in humans. Ask your doctor about your risk. You should not breastfeed within 24 hours after using metronidazole. If you use a breast pump during this time, throw out the milk and do not feed it to your baby. How should I use metronidazole? Follow all directions on your prescription label and read all medication guides or instruction sheets. Use the medicine exactly as directed. Metronidazole oral is taken by mouth. Metronidazole injection is given as an infusion into a vein. A healthcare provider will give you this injection if you are unable to take the medicine by mouth. Shake the oral suspension (liquid). Measure a dose with the supplied measuring device (not a kitchen spoon). Swallow the extended-release tablet whole and do not crush, chew, or break it. If you are treating a vaginal infection, your sexual partner may also need to take metronidazole so you don't become reinfected. Metronidazole is usually given for up to 10 days in a row. You may need to repeat this dosage several weeks later. Keep using this medicine even if your symptoms quickly improve. Skipping doses could make your infection resistant to medication. Metronidazole will not treat a viral infection (flu or a common cold). Metronidazole will not treat a vaginal yeast infection. You may even develop a new vaginal yeast infection, which may need to be treated with antifungal medication. Tell your doctor if you have symptoms such as itching or discharge during or after treatment with metronidazole. Do not share this medicine with another person, even if they have the same symptoms you have. This medicine can affect the results of certain medical tests. Tell any doctor who treats you that you are using metronidazole. Store at room temperature away from moisture and heat. What happens if I miss a dose? Take the medicine as soon as you can, but skip the missed dose if it is almost time for your next dose. Do not take two doses at one time. What happens if I overdose? Seek emergency medical attention or call the Poison Help line at . Overdose symptoms may include nausea, vomiting, numbness, tingling, or problems with balance or muscle movement. What should I avoid while using metronidazole? While taking metronidazole and for 3 days after your last dose: Do not drink alcohol or consume foods, medicines, or other products that contain alcohol or propylene glycol. You may have unpleasant effects such as headaches, nausea, vomiting, stomach cramps, and warmth or tingling under your skin. What are the possible side effects of metronidazole? Get emergency medical help if you have signs of an allergic reaction (hives, itching, warmth or tingling; fever, joint pain; dry mouth, dry vagina; stuffy nose, difficult breathing, swelling in your face or throat) or a severe skin reaction (fever, sore throat, burning eyes, skin pain, red or purple skin rash with blistering and peeling). Call your doctor at once if you have: ?? new or worsening symptoms of infection; ?? painful or difficult urination; ?? confusion; ?? a light-headed feeling (like you might pass out); ?? vaginal itching or discharge; or ?? blisters or ulcers in your mouth, red or swollen gums, trouble swallowing. Stop taking the medicine and call your doctor right away if you have neurologic side effects (more likely to occur while taking metronidazole chcf): ?? numbness, tingling, or burning pain in your hands or feet; ?? vision problems, pain behind your eyes, seeing flashes of light; ?? muscle weakness, problems with speech or coordination; ?? trouble speaking or understanding what is said to you; ?? a seizure; or ?? fever, neck stiffness, and increased sensitivity to light. Metronidazole can cause life-threatening liver problems in people with Cockayne syndrome. If you have this condition, stop taking metronidazole and contact your doctor if you have signs of liver failure--nausea, stomach pain (upper right side), dark urine, anand-colored stools, or jaundice (yellowing of the skin or eyes). Side effects may be more likely in older adults. Common side effects may include: ?? depression, trouble sleeping, feeling irritable; ?? headache, dizziness, weakness; ?? nausea, vomiting, loss of appetite, stomach pain; ?? diarrhea, constipation; ?? unpleasant metallic taste; ?? rash, itching; ?? vaginal itching or discharge, pain during sex; ?? mouth sores; or ?? swollen, red, or 'hairy' tongue. This is not a complete list of side effects and others may occur. Call your doctor for medical advice about side effects. You may report side effects to FDA at 5-800-RVO-0309. What other drugs will affect metronidazole? Sometimes it is not safe to use certain medicines at the same time. Some drugs can affect your blood levels of other drugs you use, which may increase side effects or make the medicines less effective. Tell your doctor about all your current medicines. Many drugs can affect metronidazole, especially: ?? an antidepressant; ?? asthma medication; ?? busulfan or other cancer medicine; ?? heart or blood pressure medication; ?? lithium or other antipsychotic medicine; ?? medicine to treat malaria, HIV, or other infection; or ?? a blood thinner--warfarin, Coumadin, Jantoven. This list is not complete and many other drugs may affect metronidazole. This includes prescription and rdgu-ipu-krbdldj medicines, vitamins, and herbal products. Not all possible drug interactions are listed here. Where can I get more information? Your pharmacist can provide more information about metronidazole. Remember, keep this and all other medicines out of the reach of children, never share your medicines with others, and use this medication only for the indication prescribed. Every effort has been made to ensure that the information provided by [employer]') is accurate, up-to-date, and complete, but no guarantee is made to that effect. Drug information contained herein may be time sensitive. [employer] information has been compiled for use by healthcare practitioners and consumers in the [place] and therefore [employer] does not warrant that uses outside of the [place] are appropriate, unless specifically indicated otherwise. [employer]'s drug information does not endorse drugs, diagnose patients or recommend therapy. [employer] drug information is an informational resource designed to assist licensed healthcare practitioners in caring for their patients and/or to serve consumers viewing this service as a supplement to, and not a substitute for, the expertise, skill, knowledge and judgment of healthcare practitioners. The absence of a warning for a given drug or drug combination in no way should be construed to indicate that the drug or drug combination is safe, effective or appropriate for any given patient. [employer] does not assume any responsibility for any aspect of healthcare administered with the aid of information [employer] provides. The information contained herein is not intended to cover all possible uses, directions, precautions, warnings, drug interactions, allergic reactions, or adverse effects. If you have questions about the drugs you are taking, check with your doctor, nurse or pharmacist. Copyright [id number] [employer]. Version: 15.. Revision Date: 02/11/2021. guaifenesin (gwye FEN e sin) Altarussin, Bidex-400, Fenesin IR, Natalia-Tussin Expectorant, Mucinex, Mucus Relief, Robafen, Scot-Tussin, Siltussin SA, Tussin Expectorant, Xpect What is the most important information I should know about guaifenesin? Ask a doctor or pharmacist before using this medicine if you have health problems or use other medications, or if you are or breast-feeding. What is guaifenesin? Guaifenesin is used to reduce chest congestion caused by the common cold, flu, or chronic bronchitis. Guaifenesin helps loosen congestion in your chest and throat, making it easier to cough out through your mouth. There are many brands and forms of guaifenesin available. Not all brands are listed on this leaflet. Guaifenesin may also be used for purposes not listed in this medication guide. What should I discuss with my healthcare provider before taking guaifenesin? You should not use guaifenesin if you are allergic to it. Ask a doctor or pharmacist if it is safe for you to use this medicine if you have other medical conditions. Ask a doctor before using this medicine if you are . You should not breast-feed while using guaifenesin. How should I take guaifenesin? Use exactly as directed on the label, or as prescribed by your doctor. Cold or cough medicine is only for short-term use until your symptoms clear up. Always follow directions on the medicine label about giving cough or cold medicine to a child. Do not use the medicine only to make a child sleepy. can occur from the misuse of cough or cold medicines in very young children. Measure liquid medicine carefully. Use the dosing syringe provided, or use a medicine dose-measuring device (not a kitchen spoon). To use guaifenesin granules, pour out the entire packet onto your tongue and swallow without chewing. Call your doctor if your symptoms do not improve after 7 days, or if you have a fever, rash, or headaches. This medicine can affect the results of certain medical tests. Tell any doctor who treats you that you are using guaifenesin. Store at room temperature away from moisture and heat. Do not freeze. What happens if I miss a dose? Since cough or cold medicine is used when needed, you may not be on a dosing schedule. Skip any missed dose if it's almost time for your next dose. Do not use two doses at one time. What happens if I overdose? Seek emergency medical attention or call the Poison Help line at . What should I avoid while taking guaifenesin? Ask a doctor or pharmacist before using other cough or cold medicines that may contain similar ingredients. Avoid driving or hazardous activity until you know how this medicine will affect you. Your reactions could be impaired. What are the possible side effects of guaifenesin? Get emergency medical help if you have signs of an allergic reaction: hives; difficult breathing; swelling of your face, lips, tongue, or throat. Common side effects may include: ?? nausea; or ?? vomiting. This is not a complete list of side effects and others may occur. Call your doctor for medical advice about side effects. You may report side effects to FDA at 7-375-GGF-6372. What other drugs will affect guaifenesin ? Avoid using this medicine with other drugs that cause drowsiness or slow your breathing (such as opioid medicine, a muscle relaxer, or medicine for anxiety or seizures). Ask a doctor or pharmacist before using any other medication, including prescription and rkky-lsm-lkcgwrh medicines, vitamins, and herbal products. Not all possible drug interactions are listed in this medication guide. Where can I get more information? Your pharmacist can provide more information about guaifenesin. Remember, keep this and all other medicines out of the reach of children, never share your medicines with others, and use this medication only for the indication prescribed. Every effort has been made to ensure that the information provided by [employer]') is accurate, up-to-date, and complete, but no guarantee is made to that effect. Drug information contained herein may be time sensitive. [employer] information has been compiled for use by healthcare practitioners and consumers in the [place] and therefore [employer] does not warrant that uses outside of the [place] are appropriate, unless specifically indicated otherwise. [employer] drug information does not endorse drugs, diagnose patients or recommend therapy. [employer] drug information is an informational resource designed to assist licensed healthcare practitioners in caring for their patients and/or to serve consumers viewing this service as a supplement to, and not a substitute for, the expertise, skill, knowledge and judgment of healthcare practitioners. The absence of a warning for a given drug or drug combination in no way should be construed to indicate that the drug or drug combination is safe, effective or appropriate for any given patient. [facility] does not assume any responsibility for any aspect of healthcare administered with the aid of information [facility] provides. The information contained herein is not intended to cover all possible uses, directions, precautions, warnings, drug interactions, allergic reactions, or adverse effects. If you have questions about the drugs you are taking, check with your doctor, nurse or pharmacist. Copyright [id number] [employer]. Version: 7.01. Revision Date: 07/30/2018. Emergency Awareness and Preventative Care STR[employer] is [...] Assistance with quitting is available by contacting 0-700-JWZF-NOW. This is a free resource providing counseling, support, and referral. Or you may contact your personal physician. National Suicide Prevention Lifeline: The National Suicide Prevention [...] CPR? There are two easy steps: Call if you see a teen or adult [...] and how to prevent infections, visit www.cdc.gov/sepsis. Test Results Laboratory or Other Results This Visit (last charted value for your 08/14/2021 visit) Hematology 08/19/2021 5:23 AM WBC: 4.9 K/uL -- Normal range between ( 4.5 and 10.5 ) RBC: 2.98 Million/uL -- Normal range between ( 3.93 and 5.22 ) Hct: 29.4 % -- Normal range between ( 34.1 and 44.9 ) Hgb: 8.9 g/dL -- Normal range between ( 11.2 and 15.7 ) Platelet Count: 155 K/uL -- Normal range between ( 163 and 369 ) MCH: 29.9 pg -- Normal range between ( 25.6 and 32.2 ) MCHC: 30.3 Gram/dL -- Normal range between ( 32.2 and 36.5 ) MCV: 98.7 fL -- Normal range between ( 79.0 and 94.8 ) Slide Review: Add Diff Man Myelo Percent Man: 2 % -- Normal range between ( 0 and 1 ) ALYC #: 1 K/uL Band Percent Man: 2 % -- Normal range between ( 5 and 11 ) Hypochromia: 1+ RBC Morphology: Abnormal RDW: 13.9 % -- Normal range between ( 11.7 and 14.9 ) ANC #: 3 K/uL [place] Percent Man: 5 % -- Normal range between ( 4 and 5 ) Neutrophil Percent Man: 58 % -- Normal range between ( 50 and 65 ) Eos Percent Man: 6 % -- Normal range between ( 0 and 3 ) Anisocytosis: 1+ Platelet Ct Estimate: Adequate [place] Percent Man: 2 % -- Normal range between ( 0 and 1 ) MPV: 9.8 fL -- Normal range between ( 9.4 and 12.4 ) Lymph Percent Man: 25 % -- Normal range between ( 24 and 44 ) 08/18/2021 4:11 AM Baso Percent Man: 0 % -- Normal range between ( 0 and 1 ) 08/17/2021 3:53 AM Eos %: 3.2 % -- Normal range between ( 0.0 and 7.0 ) [place] #: 0.60 K/uL -- Normal range between ( 0.16 and 1.00 ) Eos #: 0.20 x10(3)/uL -- Normal range between ( 0.00 and 0.80 ) [place] %: 9.7 % -- Normal range between ( 3.0 and 9.0 ) Baso %: 0.3 % -- Normal range between ( 0.0 and 1.5 ) Baso #: 0.02 x10(3)/uL -- Normal range between ( 0.00 and 0.20 ) Neut %: 58.0 % -- Normal range between ( 34.0 and 71.0 ) Neut #: 3.60 K/uL -- Normal range between ( 1.56 and 6.13 ) Lymph %: 27.7 % -- Normal range between ( 19.3 and 53.1 ) Lymph #: 1.72 x10(3)/uL -- Normal range between ( 1.00 and 3.90 ) IG#: 0.07 x10(3)/uL -- Normal range between ( 0.00 and 0.05 ) IG%: 1.10 % -- Normal range between ( 0.00 and 0.60 ) Urinalysis 08/15/2021 11:10 PM Ur RBC: 10-20 /HPF Urine Nitrite: Negative Urine Leukocyte Esterase: Moderate Ur Trichomonas: Present Ur Epithelial Cells: 5-10 /HPF Urine Appearance: Cloudy Urine Glucose Dipstick: Negative Urine Blood Dipstick: Negative Urine Urobilinogen Dipstick: 0.2 EU/dL Urine Protein Dipstick: Trace Ur Bacteria: 1+ Urine Color: Yellow Ur WBC: 5-10 /HPF Urine Ketones Dipstick: Negative Ur Mucous: Trace Urine pH Dipstick: 5.5 -- Normal range between ( 6.0 and 8.0 ) Urine Bilirubin Dipstick: Negative Urine Specific [place]: *1.028 -- Normal range between ( 1.005 and 1.030 ) Urine Type.: U CleanCatch Urine Culture if Indicated: Not Indicated Microbiology 08/15/2021 1:53 PM Wound Culture: POS 08/14/2021 8:15 PM Influenza A: Negative Influenza B: Negative SARS-CoV-2 (COVID19 PCR): Negative General Chemistry 08/19/2021 5:23 AM Creatinine Level: 1.00 mg/dL -- Normal range between ( 0.55 and 1.02 ) Sodium Level: 142 mmol/L -- Normal range between ( 136 and 146 ) Potassium Level: 4.8 mmol/L -- Normal range between ( 3.5 and 5.1 ) Chloride Level: 107 mmol/L -- Normal range between ( 102 and 112 ) Carbon Dioxide Level: 33 mmol/L -- Normal range between ( 21 and 32 ) Anion Gap: 7 -- Normal range between ( 9 and 20 ) Bun/Creatinine: 22.0 -- Normal range between ( 8.0 and 20.0 ) Calcium Level: 8.5 mg/dL -- Normal range between ( 8.4 and 10.1 ) eGFR : >60 mL/min/1.73m2 eGFR NonAfrican: 59 mL/min/1.73m2 Glucose Level: 97 mg/dL -- Normal range between ( 74 and 106 ) Blood Urea Nitrogen: 22 mg/dL -- Normal range between ( 7 and 22 ) 08/18/2021 4:11 AM Bilirubin Total: 0.2 mg/dL -- Normal range between ( 0.2 and 1.2 ) A/G Ratio: 0.7 -- Normal range between ( 1.1 and 2.5 ) ALT: 17 Units/Liter -- Normal range between ( 13 and 56 ) AST: 5 Units/Liter -- Normal range between ( 5 and 37 ) Globulin: 3.7 Gram/dL -- Normal range between ( 1.5 and 4.5 ) Alk Phos: 55 Units/Liter -- Normal range between ( 27 and 136 ) Magnesium Level: 2.5 mg/dL -- Normal range between ( 1.5 and 2.4 ) Protein Total: 6.2 Gram/dL -- Normal range between ( 6.4 and 8.2 ) Albumin Level: 2.5 Gram/dL -- Normal range between ( 3.4 and 5.0 ) 08/16/2021 10:57 AM Glucose POC2: 91 mg/dL -- Normal range between ( 70 and 110 ) Device Comment 1: Device Comment 1 08/14/2021 8:15 PM Lactic Acid Level: 1.0 mmol/L -- Normal range between ( 0.4 and 2.0 ) Cardiac Specific Markers 08/19/2021 5:23 AM CK: 23 Units/Liter -- Normal range between ( 26 and 192 ) 08/17/2021 3:53 AM ProBNP: 87 pg/mL -- Normal range between ( 0 and 125 ) Coagulation 08/14/2021 8:15 PM INR: 0.9 -- Normal range between ( 0.9 and 1.2 ) PTT: 27.5 Second(s) -- Normal range between ( 22.0 and 33.0 ) PT: 9.7 Second(s) -- Normal range between ( 9.2 and 12.0 ) Endocrinology 08/14/2021 8:15 PM Procalcitonin: <0.25 ng/mL -- Normal range between ( 0.00 and 2.00 ) Therapeutic Drugs 08/16/2021 10:02 AM Vancomycin Trough: 16.4 mcg/mL -- Normal range between ( 5.0 and 15.0 ) Computed Tomography 08/14/2021 9:[address] Abdomen Pelvis W: CT Abdomen Pelvis W Diagnostic Radiology 08/17/2021 9:40 AM CR Chest 1 Vw Portable: CR Chest 1 Vw Portable Patient Name:ZANDER LUCERO I have received and understand this information and was given the opportunity to ask questions. Patient/Mechanical Development Engineer Name: Patient/Mechanical Development Engineer Signature: Relationship to Patient: Electronically signed by T[place], [facility] Conversion Independent Trader Avery at 09/18/2022 9:25 AM CDT documented in this encounter Plan of Treatment Not on file documented as of this encounter Visit Diagnoses Not on filedocumented in this encounter
--- OUTSIDE RECORDS SUMMARY | 2024-12-07 00:25 | XMS_ITS | Encounter Summary ---
Author Organization [employer] ([place], [place], [place], [place]) Address [address] [place] [address] Care Team Providers Care Sand Screener Name Role Phone Unavailable Primary Care Provider Unavailabl e Encounter Details Date Type Department Care Team (Late st Contact Info) Description 08/17/2021 Transcribed Document [facility] [place] [facility] [place] [facility] [place] [address] ProviderMaría MD [address] [place] [address] Social History Tobacco Use Types Packs/Day Years Used Date Smoking Tobacco: Never Assessed Comments Unknown Sex and Gender Information Value Date Recorded Sex Assigned at Female 11/30/2021 3:01 PM CDT Legal Sex Female 3:01 PM CDT Gender Identity Female 11/30/2021 3:01 PM CDT Sexual Orientation Not on file documented as of this encounter Miscellaneous Notes * Avery Conversion Note - Historical ProviderMD - 08/17/2021 12:31 PM CDT Pain Assessment Entered On: 08/18/2021 0:16 EDT Performed On: 08/17/2021 22:17 EDT by Quynh Gunter RN Intervention Information: oxyCODONE Performed by Quynh Gunter RN on 08/17/2021 21:17:00 EDT oxyCODONE,5mg Oral,Other (See Comment) Pain Assessment Pain Assessment : Follow-up assessment Pain Scale Goal : 4 Pain Scale Used : 0-10 Scale Quynh Gunter RN - 08/18/2021 0:15 EDT Pain Scale Intensity : 0 Quynh Gunter RN - 08/18/2021 0:15 EDT Image 4 - Images currently included in the form version of this document have not been included in the text rendition version of the form. documented in this encounter Plan of Treatment Not on file documented as of this encounter Visit Diagnoses Not on filedocumented in this encounter
--- OUTSIDE RECORDS SUMMARY | 2024-12-07 00:25 | XMS_ITS | Encounter Summary ---
Author Organization [employer] ([place], [place], [place], [place]) Address [address] [place] [address] Care Team Providers Care Spinner Cap Frame Name Role Phone Unavailable Primary Care Provider Unavailabl e Encounter Details Date Type Department Care Team (Late st Contact Info) Description 08/17/[address] [facility] [place] Family Medicine [address] [place] [address] ProviderMaría MD [address] [place] [address] Social History Tobacco Use Types [...] Conversion Note - Historical ProviderMD - 08/17/2021 10:00 AM CDT Pain Assessment Entered On: 08/17/2021 10:32 EDT Performed On: 08/17/2021 10:58 EDT by Guillermo Payton Rn Intervention Information: oxyCODONE Performed by Guillermo Payton Rn on 08/17/2021 09:58:00 EDT oxyCODONE,5mg Oral Pain Assessment Pain Assessment : Follow-up assessment Pain Scale Goal : 4 Guillermo Payton Rn - 08/17/2021 10:32 EDT documented in this encounter Plan of Treatment Not on file documented as of this encounter Visit Diagnoses Not on filedocumented in this encounter
--- OUTSIDE RECORDS SUMMARY | 2024-12-07 00:25 | XMS_ITS | Encounter Summary ---
Author Organization [employer] ([place], [place], [place], [place]) Address [address] [place] [address] Care Team Providers Care Professor Of Art History Name Role Phone Unavailable Primary Care Provider Unavailabl e Encounter Details Date Type Department Care Team (Late st Contact Info) Description 08/17/2021 Transcribed Document [facility] [place] [facility] [place] [address] ProviderMaría MD [address] [place] [address] Social History Tobacco Use Types [...] Conversion Note - Historical ProviderMD - 08/17/2021 12:28 PM CDT Pain Assessment Entered On: 08/18/2021 2:01 EDT Performed On: 08/18/2021 1:28 EDT by Quynh Gunter RN Intervention Information: HYDROmorphone Performed by Quynh Gunter RN on 08/18/2021 00:28:00 EDT HYDROmorphone,2mg Oral,Breakthrough Pain Pain Assessment Pain Assessment : Follow-up assessment Pain Scale Goal : 4 Pain Scale Used : 0-10 Scale Quynh Gunter RN - 08/18/2021 2:01 EDT Pain Scale Intensity : 0 Quynh Gunter RN - 08/18/2021 2:01 EDT Image 4 - Images currently included in the form version of this document have not been included in the text rendition version of the form. documented in this encounter Plan of Treatment Not on file documented as of this encounter Visit Diagnoses Not on filedocumented in this encounter
--- OUTSIDE RECORDS SUMMARY | 2024-12-07 00:25 | XMS_ITS | Encounter Summary ---
Author Organization [employer] ([place], [place], [place], [place]) Address [address] [place] [address] Care Team Providers Care Knowledge Engineer Name Role Phone Unavailable Primary Care Provider Unavailabl e Encounter Details Date Type Department Care Team (Late st Contact Info) Description 08/17/2021 Transcribed Document [facility] [place] Medicine [facility] [place] [address] ProviderMaría MD [address] [place] [address] Social History Tobacco Use Types [...] Conversion Note - Historical ProviderMD - 08/17/2021 3:03 PM CDT On Going Discharge Planning Entered On: 08/17/2021 15:04 EDT Performed On: 08/17/2021 15:03 EDT by ERVIN HERNANDEZ, Secretary Bookkeeper Care Management Progress Note Discharge Arrangements : Patient Post-Acute Information Patient Name: CARIN LUCERO Gender: Female : [birth year] Age: 46 Years No Post-Acute Placement(s) Listed No Post-Acute Service(s) Listed No [place] Referral(s) Listed Discharge Options Discussed with Patient : Acute rehabilitation, Home Health Barriers to Discharge Identified : Clinical Condition of Patient, Follow-Up appointments needed Patient Discharge Goal : Home health care Did you Attend Multidisciplinary Rounds? : Yes ERVIN HERNANDEZ, Secretary Bookkeeper - 08/17/2021 15:03 EDT Narrative Progress Note Narrative Progress Note : HD# 3. elos 4. RRS Low. MDR rounds held with Dr Jimenes. Peg tube removed yesterday and cultures pending. Hopefully can still transition to po abx. DCP is home with family support. Historical Progress Note : HD 3/ELOS 3/RRS low [...] DCP: home with family support. JEANNETTE MANCERA Secretary Bookkeeper - 08/16/21 17:36:38 ERVIN HERNANDEZ Secretary Bookkeeper - 08/17/2021 15:03 EDT Electronically signed by Pio Eckert Conversion Gelatin Dynamite Packing Operator Cerner at 09/18/2022 9:26 AM CDT documented in this encounter Plan of Treatment Not on file documented as of this encounter Visit Diagnoses Not on filedocumented in this encounter
--- OUTSIDE RECORDS SUMMARY | 2024-12-07 00:25 | XMS_ITS | Encounter Summary ---
Author Organization [employer] ([place], [place], [place], [place]) Address [address] [place] [address] Care Team Providers Care Chucker Name Role Phone Unavailable Primary Care Provider Unavailabl e Encounter Details Date Type Department Care Team (Late st Contact Info) Description 08/19/2021 Transcribed Document [facility] [place] [facility] [place] [address] ProviderMaría MD [address] [place] [address] Social History Tobacco Use Types Packs/Day [...] Historical ProviderMD - 08/19/2021 3:18 PM CDT Nursing Discharge Summary Entered On: 08/19/2021 15:18 EDT Performed On: 08/19/2021 15:18 EDT by Peg Staples RN Discharge Documentation Discharge Date/Time : 08/19/2021 17:00 EDT Patient Disposition, General : Discharge Discharge To : Home with ambulatory/outpatient follow-up Mode Of Departure, General Discharge : Wheelchair Accompanied By, Discharge : Care provider IV Discontinued : Yes Personal Belongings With Patient : Yes Prescriptions Given to Patient : Other: Meds to Bed Discharge Instructions Reviewed With, Opportunity For Questions Given : Patient, Care provider Patient Education Completed : Yes Teaching Method : Explanation, Printed materials Teaching Evaluation : Verbalizes understanding Education Comment : pt v/u on poc,med,fall,safety Peg Staples RN - 08/19/2021 15:18 EDT documented in this encounter Plan of Treatment Not on file documented as of this encounter Visit Diagnoses Not on filedocumented in this encounter
--- OUTSIDE RECORDS SUMMARY | 2024-12-07 00:25 | XMS_ITS | Encounter Summary ---
Author Organization [employer] ([place], [place], [place], [place]) Address [address] [place] [address] Care Team Providers Care Multimedia Engineer Name Role Phone Unavailable Primary Care Provider Unavailabl e Encounter Details Date Type Department Care Team (Late st Contact Info) Description 08/19/[address] [facility] [place] Family Medicine [address] [place] [address] ProviderMaría MD [address] [place] [address] Social History Tobacco Use [...] Historical ProviderMD - 08/19/2021 3:00 AM CDT Alumni Relations Manager Details Entered On: 08/19/2021 2:25 EDT Performed On: 08/19/2021 3:00 EDT by Apryl Santos RN - International Order Details Transport Mode Order Detail : Wheelchair Isolation Precautions Order Detail : Standard Precautions Order Detail : 0 IV Order Detail : 1 Oxygen Order Detail : 1 Nurse Collect Order Detail : 0 Lift/Transfer : Minimal Central Line Order Detail : No Room Service : Appropriate Arterial Line : No Patient Needs Meds Crushed/Liquid : No Apryl Santos RN - International - 08/19/2021 2:25 EDT documented in this encounter Plan of Treatment Not on file documented as of this encounter Visit Diagnoses Not on filedocumented in this encounter
--- OUTSIDE RECORDS SUMMARY | 2024-12-07 00:25 | XMS_ITS | Encounter Summary ---
Author Organization [employer] ([place], [place], [place], [place]) Address [address] [place] [address] Care Team Providers Care Film Rental Clerk Name Role Phone Unavailable Primary Care Provider Unavailabl e Encounter Details Date Type Department Care Team (Late st Contact Info) Description 08/19/2021 Transcribed Document [facility] [place] [facility] [place] [address] ProviderMaría MD [address] [place] [address] Social History Tobacco Use Types [...] Conversion Note - Historical ProviderMD - 08/19/2021 1:45 PM CDT Patient: CARIN LUCERO Age: 46 years Sex: Female : 1975 Associated Diagnoses: None Author: ERIKA GRANADO MD-INF Basic Information CC: Abdominal wall cellulitis, PEG tube infection History of Present Illness 46 yo female with h/o IRLANDA, morbid obesity, tobacco abuse, COVID-19 pneumonia, and recent respiratory arrest at [facility] requiring tracheostomy/PEG about a month ago with transfer to [facility]. She was discharged on 08/11. She has been tolerating oral intake and was scheduled to have PEG removed next week. She began having pain around the PEG tube site around 3 days ago with the area becoming more red with burning sensation prompting her to come to [facility] ED on 08/14/21. She denies fever, [...] tazobactam and daptomycin, duration to be determined. 08/19/2021 history reviewed. Changing to Augmentin and doxycycline to continue until 08/24. No fever. No pain. Wants to go home. Status post PEG removal 08/16/2021. Review of Systems Constitutional: Weakness, No fever, [...] mL - 600 mg, IV Piggyback, Inj, [id number], infuse over 30 Minute(s), Routine metroNIDAZOLE (Flagyl) - 500 mg, Oral, Tab, TID, Routine Anticoagulant enoxaparin (Lovenox) - 40 mg, SubCutaneous, Inj, [id number], Routine Cardiovascular carvedilol - 12.5 mg, Oral, Tab, BID furosemide - 20 mg, Oral, Tab, Daily, Routine lidocaine (lidocaine 1% injectable solution) - 0.5 mL, IntraDermal, Inj, 1-Time, PRN for Other (See Comment), Routine *Duplicate* Respiratory albuterol-ipratropium (DuoNeb 0.5 mg-2.5 mg/3 mL inhalation - 3 mL, Nebulized Inhalation, Inh, RT_Q6H, PRN for Shortness of Breath, Routine guaiFENesin (Mucinex) - 1,200 mg, Oral, ER Tab, BID, Routine promethazine (Phenergan) - 6.25 mg, IntraVENous, [...] Last Charted Minimum Maximum Temp 98.2 (AUG 19 08:19) 98 (AUG 19 01:33) 98.1 (AUG 18 14:42) Mon HR 89 (AUG 19 08:) 82 (AUG 19 05:29) 96 (AUG 18 20:31) Resp Rate 16 (AUG 19 05:29) 16 (AUG 18 17:58) 18 (AUG 19 01:33) SBP 139 (AUG 19 08:19) 109 (AUG 19 01:33) H 153 (AUG 18 14:42) DBP H 101 (AUG 19 08:19) 64 (AUG 19 05:29) H 103 (AUG 18 17:58) MAP 115 (AUG 19 08:19) 75 (AUG 19 05:29) 124 (AUG 18 14:42) SpO2 97 (AUG 19 05:29) 96 (AUG 18 20:31) 98 (AUG 18 17:58) General: Alert and oriented, No acute distress. Eye: Extraocular movements are intact, Normal conjunctiva. HENT: Normocephalic, Oral mucosa is moist. Neck: Supple, Non-tender, No jugular venous distention, No lymphadenopathy. Respiratory: Lungs are clear to auscultation, Respirations are non-labored, Breath sounds are equal, Symmetrical chest wall expansion. Cardiovascular: Normal rate, No gallop, Normal peripheral perfusion. Gastrointestinal: Soft, Non-tender, Non-distended, Normal bowel sounds, No organomegaly. Musculoskeletal: Normal range of motion, Normal strength, No tenderness, No deformity. Integumentary: Warm, Dry, [place], No pallor, No rash, PEG tube site without induration. Neurologic: Alert, Oriented, No focal deficits. Cognition and Speech: Oriented, Speech clear and coherent. Psychiatric: Cooperative, Appropriate mood & affect. Review / Management Results review: Labs (Last four charted values) WBC 4.9 (AUG 17) 4.9 (AUG 16) 6.2 (AUG 15) 7.3 (AUG 14) HB L 8.9 (AUG 17) L 9.2 (AUG 16) L 9.5 (AUG 15) L 9.8 (AUG 14) HCT L 29.4 (AUG 17) L 29.9 (AUG 16) L 31.1 (AUG 15) L 31.7 (AUG 14) Plt L 155 (AUG 17) L 161 (AUG 16) 172 (AUG 15) L 161 (AUG 14) Na 142 (AUG 17) 140 (MAR 16) 138 (MAR 15) 139 (MAR 14) K 4.8 (AUG 17) 4.7 (MAR 16) 4.4 (AUG 15) 4.5 (AUG 14) Cl 107 (AUG 17) 106 (AUG 16) 102 (AUG 15) 102 (AUG 14) CO2 H 33 (AUG 17) 32 (MAR 16) 29 (MAR 15) 32 (AUG 14) BUN 22 (AUG 17) H 29 (AUG 16) H 35 (AUG 15) 22 (AUG 14) Cr 1.00 (AUG 17) H 1.20 (AUG 16) H 1.80 (AUG 15) H 1.50 (AUG 14) Glu R 97 (AUG 17) H 117 (AUG 16) H 113 (AUG 15) H 111 (AUG 14) Ca 8.5 (AUG 17) 8.5 (AUG 16) L 8.2 (AUG 15) 8.5 (MAR 14) Lactic 1.0 (AUG 14) PT 9.7 (AUG 14) INR 0.9 (AUG 14) PTT 27.5 (AUG 14) AST 5 (AUG 18) 12 (AUG 14) ALT 17 (AUG 18) 19 (AUG 14) ALK P 55 (AUG 18) 65 (AUG 14) T Bili 0.2 (AUG 18) 0.2 (AUG 14) PTN L 6.2 (AUG 18) 7.2 (AUG 14) ALB L 2.5 (AUG 18) L 2.6 (AUG 14) . Procedure Critical Care - Code Management Assessment: ACC: [id number] ORDER: Culture Wound and Stain DATE: 08/15/2021 [...] cells seen No organisms seen. == ACC: [id number] ORDER: Culture Wound and Stain DATE: 08/15/2021 [...] seen. Few White Blood Cells == ACC: [id number] ORDER: Culture Blood DATE: 08/14/2021 19:11 SOURCE: Blood SITE: Reports Pre 08/18/2021 23:01 No growth at 4 days. Pre 08/17/2021 23:01 No growth at 3 days. Pre 08/16/2021 23:01 No growth at 2 days. Pre 08/15/2021 23:01 No growth at 1 day. Pre 08/15/2021 16:01 Culture less than 24 Hrs old == ACC: [id number] ORDER: Culture Blood DATE: 08/14/2021 19:11 SOURCE: Blood SITE: Reports Pre 08/18/2021 23:01 No growth at 4 days. Pre 08/17/2021 23:01 No growth at 3 [...] trach collar 08/15/2021. 14. Anemia, chronic disease, minimally worse. 15. Thrombocytopenia, slightly worse, probably related to medications. 16. Acute kidney injury, worse. Probably related to medications and other. Vancomycin stopped. 17. Hypocalcemia. Resolved. Feels much better after PEG was removed. Plan: 1. Diagnostically, blood and PEG site wound cultures, physical examination, imaging, CBC, CMP, CRP. 2. Therapeutically, change to oral doxycycline 100 mg p.o. twice daily, and Augmentin 500 mg p.o. twice daily to continue until 08/24. 3. PEG tube removal by GI on 08/16 revealed may not have been in the stomach so at increased risk for peritonitis. 4. Continue wound care. 5. Needs follow-up with primary care.. 6. Continue oxygen support as needed. Plan has been discussed with patient including side effects of medications and line. At increased risk for side effects of abx and line, and readmission. Discussed in detail with nursing, and the patient's mother. Follow-up can be arranged for primary care. I discussed with case management and the hospitalist service. documented in this encounter Plan of Treatment Not on file documented as of this encounter Visit Diagnoses Not on filedocumented in this encounter
--- OUTSIDE RECORDS SUMMARY | 2024-12-07 00:25 | XMS_ITS | Encounter Summary ---
Author Organization [employer] ([place], [place], [place], [place]) Address [address] [place] [address] Care Team Providers Care Solid Waste Disposal Manager Name Role Phone Unavailable Primary Care Provider Unavailabl e Encounter Details Date Type Department Care Team (Late st Contact Info) Description 08/14/2021 Transcribed Document [facility] [place] [facility] [place] [address] ProviderMaría MD [address] [place] [address] Social History Tobacco Use Types Packs/Day [...] Conversion Note - Historical Provider, - 08/14/2021 10:53 PM GM Treatment Intervention, OT Entered On: 08/17/2021 15:15 EDT Performed On: 08/17/2021 14:50 EDT by GIANNA RHODES, OTR/L General Information, OT Visit Type, OT : Treatment Note Patient Orders : Order Date Order Ordering 08/14/2021 23:19 OT Evaluation and Treatment Ordered By: EDUARD DE LOS SANTOS DO-INT 08/15/2021 15:01 OT Additional Tx Ordered By: Active Diagnoses : 08/14/2021 12:00 Abdominal pain 08/14/2021 12:00 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 Medical screening exam 08/14/2021 12:00 Unspecified abdominal pain Therapy Diagnosis, OT : Decreased [place] with ADLs secondary to generalized weakness Admission Date : 08/14/2021 22:53 Co-treated by, OT : Physical Therapist Personal Devices : Personal Devices No Devices Recorded Assistive Devices : Assistive Devices No Devices Recorded GIANNA RHODES OTR/L - 08/17/2021 15:10 EDT General Status Patient Received Status : Supine in bed, HOB elevated Treatment Start Time : 08/17/2021 14:42 EDT Patient Left Status : Supine in bed, RN/PCT informed, All needs met and within reach RN/PCT Informed Comment : EWA Li Treatment End Time : 08/17/2021 14:50 EDT Treatment Time : 8 Minute(s) GIANNA RHODES, OTR/L - 08/17/2021 15:10 EDT Therapeutic Exercises, OT OT Range of Motion Grid Exercise #1 Exercise : Active Range Of Motion (AROM) Location : Upper extremity Laterality : Bilateral Position : Supine Reps : 10x Time : 8 mins GIANNA RHODES OTR/L - 08/17/2021 15:10 EDT Plan of Care, OT OT Tx Plan/Goals Established w Patient : Yes GIANNA RHODES, OTR/L - 08/17/2021 15:10 EDT Migratory Farm Hand Goals, OT Grooming LTG Grid Goal #1 Activity : Grooming Assist : Independent, modified Date to Meet : 08/29/2021 EDT Goal Status : Initial goal Comment : Standing GIANNA RHODES OTR/L - 08/17/2021 15:10 EDT Dressing, Lower Body LTG Grid Goal #1 Activity : Dressing, Lower Body Assist : Independent, modified Equipment : Long Handled Turf Keeper, Sock aid, Long handled shoehorn Date to Meet : 08/29/2021 EDT Goal Status : Initial goal GIANNA RHODES, OTR/L - 08/17/2021 15:10 EDT Toilet Transfer LTG Grid Goal #1 Activity : Toilet Transfer, Ambulatory Assist : Independent, modified Date to Meet : 08/29/2021 EDT Goal Status : Initial goal GIANNA RHODES OTR/L - 08/17/2021 15:10 EDT Bed Mobility/ Bed Transfer LTG Grid Goal #1 Activity : Bed Mobility/Bed Transfer Assist : Independent, modified Date to Meet : 08/29/2021 EDT Goal Status : Initial goal GIANNA RHODES OTR/Az - 08/17/2021 15:10 EDT Treatment Note Subjective Comment : Pt and RN okay'd OT tx at this time Pt states I'm tired, agitated, and aggravated and I want to talk to infectious disease. Patient's Response to Treatment : Pt tolerated OT tx fair, declined EOB/OOB mobility despite education from therapist Additional Objective Information : Pt supine in bed upon OT arrival. Pt came to long sitting in bed independently. Pt completed BUE AROM exercises (shoulder flexion/extension, elbow flexion/extension, forearm pronation/supination, and wrist flexion/extension) 10x each. Pt came to long sitting in bed independently. Pt left long sitting in bed with call light/phonw within reach and RN present at bedside. Assessment : Pt would continue to benefit from skilled OT services to improve fnxl status. Plan for Treatment : Continue with pt's POC per pt tolerance. GIANNA RHODES OTR/Az - 08/17/2021 15:10 EDT Pain Assessment Pain Scaled Used : 0-10 Pain scale Pain Comment : Pt reports pain all over, however, did not rate GIANNA RHODES OTR/Az - 08/17/2021 15:10 EDT Image 1 - Images currently included in the form version of this document have not been included in the text rendition version of the form. [place] OT Charges OT Ther Activities Ea 15 Min : 1 GIANNA RHODES OTR/Az - 08/17/2021 15:10 EDT documented in this encounter Plan of Treatment Not on file documented as of this encounter Visit Diagnoses Not on filedocumented in this encounter
--- OUTSIDE RECORDS SUMMARY | 2024-12-07 00:25 | XMS_ITS | Encounter Summary ---
Author Organization [employer] ([place], [place], [place], [place]) Address [address] [place] [address] Care Team Providers Care Sleeve Bottom Feller Name Role Phone Unavailable Primary Care Provider Unavailabl e Encounter Details Date Type Department Care Team (Late st Contact Info) Description 08/19/2021 Transcribed Document [facility] Radiology [address] [place] [address] Saleem Jimenes MD [address] [place] [id number] Social History Tobacco Use Types Packs/Day [...] Note - Saleem Jimenes MD - 08/19/2021 9:58 AM EDT Patient: CARIN LUCERO Age: 46 years Sex: Female : 1975 Associated Diagnoses: None Author: SALEEM JIMENES MD-INT Subjective Patient feeling better today. No fever or chills. Want to go home. Review of Systems Constitutional: Fatigue, No fever, [...] mg, 12 mL, 124 mL/Hr, IV Piggyback, [id number] Dulcolax Laxative: 5 mg, Oral, Daily, PRN: Constipation DuoNeb 0.5 mg-2.5 mg/3 mL inhalation solution: 3 mL, Nebulized Inhalation, RT_Q6H, PRN: Shortness of Breath Flagyl: 500 mg, Oral, TID Geodon: 40 mg, Oral, BID HYDROmorphone: 2 mg, Oral, Q4H, PRN: Breakthrough Pain Imitrex: 100 mg, Oral, Daily, PRN: Migraine Headache LaMICtal: 100 mg, Oral, Daily Lovenox: 40 mg, SubCutaneous, [id number] MiraLax: 17 Gram, Oral, Daily, PRN: Constipation [...] Oral, BID, 180 Cap, 0 Refill(s), Medications (24) Active Scheduled: (14) acetaminophen 500 mg tab 1,000 mg 2 Tab, Oral, Q6HInt carvedilol 12.5 mg tab 12.5 mg 1 Tab, Oral, BID DAPTOmycin + NaCl 0.9% 50 mL 600 mg 12 mL, IV Piggyback, [id number] enoxaparin 40 mg/0.4 mL inj 40 mg 0.4 mL, SubCutaneous, [id number] famotidine 20 mg tab 20 mg 1 Tab, Oral, Daily furosemide 20 mg tab 20 mg 1 Tab, Oral, Daily gabapentin 300 mg cap 300 mg 1 Cap, Oral, TID guaiFENesin 600 mg ER tab 1,200 mg 2 Tab, Oral, BID lamoTRIgine 100 mg tab 100 mg 1 Tab, Oral, Daily levothyroxine 25 mcg tab 25 mcg 1 Tab, Oral, Daily metroNIDAZOLE 500 mg tab 500 mg 1 Tab, Oral, TID piperacillin-tazobactam + NaCl 0.9% 50 [...] History of obstructive sleep apnea / IMO [id number] / Confirmed Suicide risk / IMO 12057 / Confirmed, Active Problems (2) History of obstructive sleep apnea Suicide risk Objective VS/Measurements Vitals Signs (last 24 hrs) Last Charted Minimum Maximum Temp 98.2 (AUG 19 05:29) 97.9 (AUG 18 10:20) 98.1 (AUG 18 14:42) Mon HR 82 (AUG 19 05:29) 82 (AUG 19 05:29) 96 (AUG 18 20:31) Resp Rate 16 (AUG 19 05:29) 16 (AUG 18 17:58) 18 (AUG 19 01:33) SBP 116 (AUG 19 05:29) 109 (AUG 19 01:33) H 153 (AUG 18 14:42) DBP 64 (AUG 19 05:29) 64 (AUG 19 05:29) H 103 (AUG 18 17:58) MAP 75 (AUG 19 05:29) 75 (AUG 19 05:29) 124 (AUG 18 14:42) SpO2 97 (AUG 19 05:29) 96 (AUG 18 20:31) 99 (AUG 18 09:15) General: Alert and oriented, No acute distress, [...] Angry. Behavior: Agitated. Review / Management AUG 19 05:23 142 107 22 / 97 4.8 H 33 1.00 \ AUG 19 05:23 \ L 8.9 / 4.9 L 155 / L 29.4 \ Radiology Results (Last 48 hours) [id number] -- 08/14/2021 22:53 CR Chest 1 Vw [...] personally viewed, interpreted and dictated the examination. Sinaiave read and agree with the above final [...] (AUG 14) Na 142 (AUG 17) 140 (AUG 16) 138 (AUG 15) 139 (AUG 14) K 4.8 (AUG 17) 4.7 (AUG 16) 4.4 (AUG 15) 4.5 (AUG 14) Cl 107 (AUG 17) 106 (AUG 16) 102 (AUG 15) 102 (AUG 14) CO2 H 33 (AUG 17) 32 (AUG 16) 29 (AUG 15) 32 (AUG 14) BUN 22 (AUG [...] L 8.2 (AUG 15) 8.5 (AUG 14) Lactic 1.0 (AUG 12) PT 9.7 (AUG [...] from Previous Midnight to Current New Medications: furosemide 20 mg, Oral, Tab, Daily, Routine, Start 08/18/21 10:23:00 EDT, 08/18/21 10:23:00 EDT SALEEM JIMENES MD-INT guaiFENesin (Mucinex) 1,200 mg, Oral, ER Tab, BID, Routine, Start 08/18/21 9:47:00 EDT, 08/18/21 9:47:00 EDT SALEEM JIMENES MD-INT metroNIDAZOLE (Flagyl) 500 mg, Oral, Tab, TID, Routine, Start 08/18/21 10:28:00 EDT, Indication: Sexually Transmitted Disease SALEEM JIMENES MD-INT Discontinued Medications: Lactated Ringers Injection intravenous solution 1,000 mL 1,000 mL, Bag Volume (mL) = 1,000, IntraVENous, Rate = 20 mL/Hr, start date 08/16/21 11:33:00 EDT, Routine, 2.44, m2 SALEEM JIMENES MD-INT Sodium Chloride 0.9% intravenous solution 1,000 [...] 08/19/2021 if it is okay with ID documented in this encounter Plan of Treatment Not on file documented as of this encounter Visit Diagnoses Not on filedocumented in this encounter
--- OUTSIDE RECORDS SUMMARY | 2024-12-07 00:25 | XMS_ITS | Encounter Summary ---
Author Organization [employer] ([place], [place], [place], [place]) Address [address] [place] [address] Care Team Providers Care Stained Glass Window Designer Name Role Phone Unavailable Primary Care Provider Unavailabl e Encounter Details Date Type Department Care Team (Late st Contact Info) Description 08/19/2021 Transcribed Document [facility] [place] Family Medicine [facility] [place] [address] ProviderMaría MD [address] [place] [address] Social History Tobacco Use Types [...] Conversion Note - Historical ProviderMD - 08/19/2021 11:09 AM CDT Patient: CARIN LUCERO Age: 46 years Sex: Female : 1975 Associated Diagnoses: None Author: Todd Davidson, HIM MANAGER-PHARMACIST Pain Management Pharmacy Consultation HPI: [id number] [...] respiratory arrest last month and admitted to [facility]. Patient CO2 was reportedly greater than 100. Patient was admitted and eventually had to have a trach and peg placed. Patient was tolerating po intake and was about to have peg tube removed next week. Relevant PMH: peg tube placement, recent respiratory arrest, obstructive sleep apnea, tobacco abuse, morbid obesity. Indication: pain nurse case management MD: Saleem Jimenes Allergies: metoclopramide Outpatient Pain [...] Plt L 155 (AUG 17) L 161 (MAR 16) 172 (MAR 15) L 161 (AUG 14) Na 142 (AUG 17) 140 (MAR 16) 138 (MAR 15) 139 (MAR 14) K 4.8 (AUG 17) 4.7 (MAR 16) 4.4 (MAR 15) 4.5 (MAR 14) Cl 107 (AUG 17) 106 (MAR 16) 102 (MAR 15) 102 (MAR 14) CO2 H 33 (MAR 17) 32 (MAR 16) 29 (MAR 15) 32 (MAR 14) BUN 22 (AUG 17) H 29 (MAR 16) H 35 (MAR 15) 22 (MAR 14) Cr 1.00 (AUG 17) H 1.20 (MAR 16) H 1.80 (MAR 15) H 1.50 (MAR 14) Glu R 97 (AUG 17) H 117 (AUG 16) H 113 (AUG 15) H 111 (AUG 14) Ca 8.5 (MAR 17) 8.5 (MAR 16) L 8.2 (AUG 15) 8.5 (AUG 14) Lactic 1.0 (AUG 12) PT 9.7 (AUG 12) INR 0.9 (AUG 12) PTT 27.5 (AUG 12) AST 5 (MAR 16) 12 (AUG 14) ALT 17 (AUG 18) [...] time. 3. Rx will continue to follow. 08/19: 1. S/w patient at bedside. Patient reports to be doing much better. Pain is in better control and has no new complaints. Patient might be discharging today. 2. No changes to patient's pain medications since they are well-tolerated and controlling her pain. 3. Rx will continue to follow. Thank you for this consult, Todd BaumannD candidate 2021 Thank you for this consult, Hany BaumannD, MPH PGY1 Animal Husbandman Pager: [phone] documented in this encounter Plan of Treatment Not on file documented as of this encounter Visit Diagnoses Not on filedocumented in this encounter
--- OUTSIDE RECORDS SUMMARY | 2024-12-07 00:25 | XMS_ITS | Encounter Summary ---
Author Organization [employer] ([place], [place], [place], [place]) Address [address] [place] [address] Care Team Providers Care Operational Risk Analyst Name Role Phone Unavailable Primary Care Provider Unavailabl e Encounter Details Date Type Department Care Team (Late st Contact Info) Description 08/19/2021 Transcribed Document [facility] [facility] [place] [address] ProviderMaría MD [address] [place] [address] Social History Tobacco Use Types [...] Conversion Note - Historical ProviderMD - 08/19/2021 3:34 PM CDT [facility] [place], [place] [id number] ZANDER LUCERO :1975 Visit Time:08/14/2021 Your Visit [...] Hydralazine Home Health Services: [facility] [phone] Medical Equipment for Home Use: Patient Aides (your medical equipment provider)[phone] Transportation: family Discharge Activity: Discharge Activity: Activity as tolerated Diet: Discharge Diet: Heart healthy diet Follow-Up Appointments Follow Up with EMY MUSA (REF)ZACHARY When 08/30/2021 11:30 AM EDT Comments Primary care follow up appointment has been made Bring discharge instructions with you Where: [address] [place] [address] THANH Philippe [address]- [phone] Medications What How Much When Instructions Next Dose amoxicillin-clavulanate (Augmentin 500 mg-125 mg oral tablet) 1 Tablet(s) Oral Every 12 hours Duration: 7 Day(s) Pickup at [facility] carvedilol (carvedilol 12.5 mg oral tablet) 1 Tablet(s) Oral Two Times A Day Duration: 30 Day(s) Pickup at [facility] doxycycline (doxycycline hyclate 100 mg oral tablet) 1 Tablet(s) Oral Two Times A Day Duration: 7 Day(s) Pickup at [facility] guaiFENesin (Mucinex 600 mg oral tablet, extended release) 2 Tablet(s) Oral Two Times A Day Duration: 7 Day(s) Pickup at [facility] metroNIDAZOLE (Flagyl 500 mg oral tablet) 1 Tablet(s) Oral Three Times A Day Duration: 6 Day(s) Pickup at [facility] furosemide (furosemide 20 mg oral tablet) 1 [...] Oral Two Times A Day Pharmacy Information [facility] [place]: [address] [facility] [address] [place], [place] [id number] [phone] Take your medications faithfully. Do NOT skip [...] including vitamins, herbs, eye drops, creams, and xzil-hhr-eicxpsh medicines. ??? Any problems you or family [...] tells you to take them. ? Taking vtbg-twd-viomnsr medicines, vitamins, herbs, and supplements. ??? Do [...] provider. Document Revised: 10/02/2020 Document Reviewed: 10/02/2020 [employer] Patient Education ?? 2020 [employer]. amoxicillin and clavulanate potassium (am OK i [...] may report side effects to FDA at 4-890-RNH-7284. What other drugs will affect amoxicillin and clavulanate potassium? Tell your doctor about all your other medicines, especially: ?? allopurinol; ?? probenecid; or ?? a blood thinner--warfarin, Coumadin, Jantoven. This list is not complete. Other drugs may affect amoxicillin and clavulanate potassium, including prescription and ppvz-kuv-jnxycuq medicines, vitamins, and herbal products. Not all [...] to ensure that the information provided by [employer]. ('[employer]') is accurate, up-to-date, and complete, but no guarantee is made to that effect. Drug information contained herein may be time sensitive. [employer] information has been compiled for use by healthcare practitioners and consumers in the [place] and therefore [employer] does not warrant that uses outside of the [place] are appropriate, unless specifically indicated otherwise. [employer] drug information does not endorse drugs, diagnose patients or recommend therapy. [employer] drug information is an informational resource designed [...] effective or appropriate for any given patient. [employer] does not assume any responsibility for any aspect of healthcare administered with the aid of information [employer] provides. The information contained herein is not intended to cover all possible uses, directions, precautions, warnings, drug interactions, allergic reactions, or adverse effects. If you have questions about the drugs you are taking, check with your doctor, nurse or pharmacist. Copyright 2709-4642 [employer]. Version: 12.. Revision Date: 07/29/2019. carvedilol (AVEL [...] may report side effects to FDA at 8-659-TUN-6188. What other drugs will affect carvedilol? Sometimes it is not safe to use certain medications at the same time. Some drugs can affect your blood levels of other drugs you take, which may increase side effects or make the medications less effective. Other drugs may affect carvedilol, including prescription and oxsy-omk-mqbwnle medicines, vitamins, and herbal products. Tell your [...] to ensure that the information provided by [employer]. ('[employer]') is accurate, up-to-date, and complete, but no guarantee is made to that effect. Drug information contained herein may be time sensitive. [employer] information has been compiled for use by healthcare practitioners and consumers in the [place] and therefore [employer] does not warrant that uses outside of the [place] are appropriate, unless specifically indicated otherwise. [employer] drug information does not endorse drugs, diagnose patients or recommend therapy. [employer] drug information is an informational resource designed [...] effective or appropriate for any given patient. [employer] does not assume any responsibility for any aspect of healthcare administered with the aid of information [employer] provides. The information contained herein is not intended to cover all possible uses, directions, precautions, warnings, drug interactions, allergic reactions, or adverse effects. If you have questions about the drugs you are taking, check with your doctor, nurse or pharmacist. Copyright 9760-7935 [employer]. Version: 16.. Revision Date: 09/27/2018. doxycycline (oral/injection) (MERISSA dumont) Acticlate, Adoxa, Alodox, Avidoxy, Doryx, Mondoxyne [...] bone and tooth development in a nursing infant. Do not breastfeed while you are taking doxycycline. Doxycycline can cause permanent yellowing or graying of the teeth in children younger than 8 years old. Children should use doxycycline only in cases of severe or life-threatening conditions such as anthrax or Lusk spotted fever. The benefit of treating a [...] may report side effects to FDA at 1-447-JKN-8522. What other drugs will affect doxycycline? Sometimes it is not safe to use certain medications at the same time. Some drugs can affect your blood levels of other drugs you take, which may increase side effects or make the medications less effective. Other drugs may affect doxycycline, including prescription and opqo-llr-pggogme medicines, vitamins, and herbal products. Tell your [...] to ensure that the information provided by [employer]. ('[employer]') is accurate, up-to-date, and complete, but no guarantee is made to that effect. Drug information contained herein may be time sensitive. [employer] information has been compiled for use by healthcare practitioners and consumers in the [place] and therefore [employer] does not warrant that uses outside of the [place] are appropriate, unless specifically indicated otherwise. [employer]'s drug information does not endorse drugs, diagnose patients or recommend therapy. [employer] drug information is an informational resource designed [...] effective or appropriate for any given patient. [employer] does not assume any responsibility for any aspect of healthcare administered with the aid of information [employer] provides. The information contained herein is not intended to cover all possible uses, directions, precautions, warnings, drug interactions, allergic reactions, or adverse effects. If you have questions about the drugs you are taking, check with your doctor, nurse or pharmacist. Copyright 3421-4537 [employer]. Version: 21.04. Revision Date: 04/08/2020. metronidazole (oral/injection) ( cruz bernal philipana) FIRST Metronidazole, Flagyl What is the most important information I [...] (more likely to occur while taking metronidazole vermin exterminator): ?? numbness, tingling, or burning pain in [...] may report side effects to FDA at 1-230-ZXB-1192. What other drugs will affect metronidazole? Sometimes [...] may affect metronidazole. This includes prescription and chsg-oxo-qrmgdba medicines, vitamins, and herbal products. Not all [...] to ensure that the information provided by [employer]. ('[employer]') is accurate, up-to-date, and complete, but no guarantee is made to that effect. Drug information contained herein may be time sensitive. [employer] information has been compiled for use by healthcare practitioners and consumers in the [place] and therefore [employer] does not warrant that uses outside of the [place] are appropriate, unless specifically indicated otherwise. [employer] drug information does not endorse drugs, diagnose patients or recommend therapy. [employer] drug information is an informational resource designed [...] effective or appropriate for any given patient. [employer] does not assume any responsibility for any aspect of healthcare administered with the aid of information [employer] provides. The information contained herein is not intended to cover all possible uses, directions, precautions, warnings, drug interactions, allergic reactions, or adverse effects. If you have questions about the drugs you are taking, check with your doctor, nurse or pharmacist. Copyright 1246-0424 [employer]. Version: 15.. Revision Date: 02/11/2021. guaifenesin (gwye [...] may report side effects to FDA at 6-554-NGM-6020. What other drugs will affect guaifenesin ? Avoid using this medicine with other drugs that cause drowsiness or slow your breathing (such as opioid medicine, a muscle relaxer, or medicine for anxiety or seizures). Ask a doctor or pharmacist before using any other medication, including prescription and lvgm-tfx-zvbeieb medicines, vitamins, and herbal products. Not all [...] to ensure that the information provided by [employer]. ('[employer]') is accurate, up-to-date, and complete, but no guarantee is made to that effect. Drug information contained herein may be time sensitive. [employer] information has been compiled for use by healthcare practitioners and consumers in the [place] and therefore [employer] does not warrant that uses outside of the [place] are appropriate, unless specifically indicated otherwise. [employer]'s drug information does not endorse drugs, diagnose patients or recommend therapy. [employer] drug information is an informational resource designed [...] effective or appropriate for any given patient. [facility] does not assume any responsibility for any aspect of healthcare administered with the aid of information [facility] provides. The information contained herein is not intended to cover all possible uses, directions, precautions, warnings, drug interactions, allergic reactions, or adverse effects. If you have questions about the drugs you are taking, check with your doctor, nurse or pharmacist. Copyright 8599-6244 [facility] Version: 7.01. Revision Date: 07/30/2018. Emergency Awareness [...] Assistance with quitting is available by contacting 2-670-LZNL-NOW. This is a free resource providing counseling, [...] and 14.9 ) ANC #: 3 K/uL [place] Percent Man: 5 % -- Normal range between ( 4 and 5 ) Neutrophil Percent Man: 58 % -- Normal range between ( 50 and 65 ) Eos Percent Man: 6 % -- Normal range between ( 0 and 3 ) Anisocytosis: 1+ Platelet Ct Estimate: Adequate Roosevelt Percent Man: 2 % -- Normal range [...] range between ( 0.0 and 7.0 ) [place] #: 0.60 K/uL -- Normal range between ( 0.16 and 1.00 ) Eos #: 0.20 x10(3)/uL -- Normal range between ( 0.00 and 0.80 ) [place] %: 9.7 % -- Normal range between [...] ) Urine Bilirubin Dipstick: Negative Urine Specific Patrick: *1.028 -- Normal range between ( 1.005 [...] was given the opportunity to ask questions. Patient/Chrome Worker Name: Electronically signed by Tomeka, [facility] Conversion Train Planner Cerner at 09/18/2022 8:55 AM CDT documented in this encounter Plan of Treatment Not on file documented as of this encounter Visit Diagnoses Not on filedocumented in this encounter
--- OUTSIDE RECORDS SUMMARY | 2024-12-07 00:25 | XMS_ITS | Encounter Summary ---
Author Organization [employer] ([place], [place], [place], [place]) Address [address] [place] [address] Care Team Providers Care Flame Cutter Name Role Phone Unavailable Primary Care Provider Unavailabl e Encounter Details Date Type Department Care Team (Late st Contact Info) Description 08/17/2021 Transcribed Document [facility] [place] [place] Family Medicine [facility] [place] [address] ProviderMaría MD [address] [place] [address] Social History Tobacco Use Types [...] Conversion Note - Historical ProviderMD - 08/17/2021 5:10 AM CDT Rapid Response Team Documentation Entered On: 08/17/2021 5:26 EDT Performed On: 08/17/2021 5:10 EDT by Carin Hernandez Rn Rapid Response Event Time Rapid Response Team Called : 08/17/2021 5:10 EDT Rapid Response Team Arrival Time : 08/17/2021 5:15 EDT Rapid Response Team Event End Time : 08/17/2021 5:25 EDT Rapid Response Event Intiated By : Hospital Staff Rapid Response Team Initiation Reason : Peripheral IV start Rapid Response Event Location Type : Other: 510 Rapid Response Team Initiation Reason Details : attempts x2 without success. 22g right hand x1. primary nurse at bedside. Rapid Response Admission Diagnosis : Abdominal pain Gastrostomy infection Medical screening exam Sepsis, unspecified organism Sepsis, unspecified organism Unspecified abdominal pain Rapid Response Medical Background : History of obstructive sleep apnea (Medical) Suicide risk (Medical) Rapid Response Allergies : Substance Category Reactions Severity metoclopramide Drug Unknown Rapid Response Recent Vital Signs : 08/17/2021 03:22 Systolic Blood Pressure 114 08/17/2021 03:22 Diastolic Blood Pressure 72 08/17/2021 03:22 Heart Rate Monitored 91 08/17/2021 03:22 Respiratory Rate 18 08/17/2021 03:22 Temperature, Fahrenheit 98.1 08/17/2021 03:22 Oxygen Saturation 96 Rapid Response Recent Lab Results : 08/17/2021 03:53 Sodium Level 138 (136-146) 08/17/2021 03:53 Potassium Level 4.4 (3.5-5.1) 08/17/2021 03:53 Calcium Level LOW 8.2 (8.4-10.1) 08/14/2021 20:15 Magnesium Level 1.9 (1.5-2.4) 08/16/2021 10:57 Glucose POC2 91 (70-110) 08/17/2021 03:53 Chloride Level 102 (102-112) 08/17/2021 03:53 Carbon Dioxide Level 29 (21-32) 08/17/2021 03:53 Blood Urea Nitrogen HI 35 (7-22) 08/17/2021 03:53 Creatinine Level HI 1.80 (0.55-1.02) 08/14/2021 20:15 PT 9.7 (9.2-12.0) 08/14/2021 20:15 INR 0.9 (0.9-1.2) 08/14/2021 20:15 PTT 27.5 (22.0-33.0) 08/17/2021 03:53 Hgb LOW 9.5 (11.2-15.7) 08/17/2021 03:53 Hct LOW 31.1 (34.1-44.9) 08/17/2021 03:53 RBC LOW 3.16 (3.93-5.22) 08/17/2021 03:53 WBC 6.2 (4.5-10.5) 08/17/2021 03:53 Platelet Count 172 (163-369) 08/14/2021 20:15 Lactic Acid Level 1.0 (0.4-2.0) Weight/BMI : Clinical Weight/BMI CLINICALWEIGHT: 138.64 kg (08/14/21 23:00:00) CLINICALWEIGHT: 138.64 kg (08/14/21 18:55:00) Body Mass Index: 57.8 kg/m2 Critical (08/14/21 23:00:00) Body Mass Index: 57.8 kg/m2 Critical (08/14/21 18:55:00) Code Status Pre Event : Full Code Code Status Post Event : Full Code Patient Condition at End of Event : No S/S of Acute Distress Patient Disposition Post Event : No change in location/level of care Rapid Response Flame Cutter #1 : Carin Hernandez V, Rn Carin Hernandez V, Rn - 08/17/2021 5:25 EDT documented in this encounter Plan of Treatment Not on file documented as of this encounter Visit Diagnoses Not on filedocumented in this encounter
--- OUTSIDE RECORDS SUMMARY | 2024-12-07 00:25 | XMS_ITS | Encounter Summary ---
Author Organization [employer] ([place], [place], [place], [place]) Address [address] [place] [address] Care Team Providers Care Nutritionist Public Health Name Role Phone Unavailable Primary Care Provider Unavailabl e Encounter Details Date Type Department Care Team (Late st Contact Info) Description 08/17/2021 Transcribed Document [facility] [place] [address] [place] [address] ProviderMaría MD [address], [place] [id number] Social History Tobacco Use Types Packs/Day Years [...] Conversion Note - Historical ProviderMD - 08/17/2021 9:00 AM CDT Pain Assessment Entered On: 08/17/2021 10:32 EDT Performed On: 08/17/2021 10:59 EDT by Guillermo Payton Rn Intervention Information: acetaminophen Performed by Guillermo Payton Rn on 08/17/2021 09:59:00 EDT acetaminophen,1000mg Oral Pain Assessment Pain Assessment : Follow-up assessment Pain Scale Goal : 4 Guillermo Payton Rn - 08/17/2021 10:32 EDT documented in this encounter Plan of Treatment Not on file documented as of this encounter Visit Diagnoses Not on filedocumented in this encounter
--- OUTSIDE RECORDS SUMMARY | 2024-12-07 00:25 | XMS_ITS | Encounter Summary ---
Author Organization [employer] ([place], [place], [place], [place]) Address [address] [place] [address] Care Team Providers Care Structural Technician Name Role Phone Unavailable Primary Care Provider Unavailabl e Encounter Details Date Type Department Care Team (Late st Contact Info) Description 08/19/2021 Transcribed Document [facility] [place] Medicine [facility] [place] [address] ProviderMaría MD [address] [place] [address] Social History Tobacco Use Types [...] Conversion Note - Historical ProviderMD - 08/19/2021 12:30 AM CDT Rapid Response Team Documentation Entered On: 08/19/2021 1:02 EDT Performed On: 08/19/2021 0:30 EDT by Carin Hernandez Rn Rapid Response Event Time Rapid Response Team Called : 08/19/2021 0:30 EDT Rapid Response Team Arrival Time : 08/19/2021 0:35 EDT Rapid Response Team Event End Time : 08/19/2021 1:01 EDT Rapid Response Event Intiated By : Hospital Staff Rapid Response Team Initiation Reason : Peripheral IV start Rapid Response Event Location Type : Other: 322 Rapid Response Team Initiation Reason Details : no previous attempts due to being hard stick. 22g right hand x2 sticks. primary nurse informed. Rapid Response Admission Diagnosis : Abdominal pain Gastrostomy infection Medical screening exam Sepsis, unspecified organism Sepsis, unspecified organism Unspecified abdominal pain Rapid Response Medical Background : History of obstructive sleep apnea (Medical) Suicide risk (Medical) Rapid Response Allergies : Substance Category Reactions Severity metoclopramide Drug Unknown Rapid Response Recent Vital Signs : 08/18/2021 20:31 Systolic Blood Pressure 144 08/18/2021 20:31 Diastolic Blood Pressure 102 08/18/2021 20:31 Heart Rate Monitored 96 08/18/2021 20:00 Respiratory Rate 17 08/18/2021 20:31 Temperature, Fahrenheit 98.6 08/18/2021 20:54 Oxygen Saturation 98 Rapid Response Recent Lab Results : 08/18/2021 04:11 Sodium Level 140 (136-146) 08/18/2021 04:11 Potassium Level 4.7 (3.5-5.1) 08/18/2021 04:11 Calcium Level 8.5 (8.4-10.1) 08/18/2021 04:11 Magnesium Level HI 2.5 (1.5-2.4) 08/16/2021 10:57 Glucose POC2 91 (70-110) 08/18/2021 04:11 Chloride Level 106 (102-112) 08/18/2021 04:11 Carbon Dioxide Level 32 (21-32) 08/18/2021 04:11 Blood Urea Nitrogen HI 29 (7-22) 08/18/2021 04:11 Creatinine Level HI 1.20 (0.55-1.02) 08/14/2021 20:15 PT 9.7 (9.2-12.0) 08/14/2021 20:15 INR 0.9 (0.9-1.2) 08/14/2021 20:15 PTT 27.5 (22.0-33.0) 08/18/2021 04:11 Hgb LOW 9.2 (11.2-15.7) 08/18/2021 04:11 Hct LOW 29.9 (34.1-44.9) 08/18/2021 04:11 RBC LOW 3.05 (3.93-5.22) 08/18/2021 04:11 WBC 4.9 (4.5-10.5) 08/18/2021 04:11 Platelet Count LOW 161 (163-369) 08/14/2021 20:15 Lactic Acid Level 1.0 [...] change in location/level of care Rapid Response Structural Technician #1 : Carin Hernandez V, Rn Carin Hernandez V Rn - 08/19/2021 1:01 EDT documented in this encounter Plan of Treatment Not on file documented as of this encounter Visit Diagnoses Not on filedocumented in this encounter
--- OUTSIDE RECORDS SUMMARY | 2024-12-07 00:25 | XMS_ITS | Encounter Summary ---
Author Organization [employer] ([place], [place], [place], [place]) Address [address] [place] [address] Care Team Providers Care Food Taster Name Role Phone Unavailable Primary Care Provider Unavailabl e Encounter Details Date Type Department Care Team (Late st Contact Info) Description 08/17/2021 Transcribed Document [facility] Radiology [address] [place] [address] Saleem Jimenes MD [address] [place] [id number] Social History Tobacco Use Types Packs/Day [...] Conversion Note - Saleem Jimenes MD - 08/17/2021 10:30 AM EDT Patient: CARIN LUCERO Age: 46 years Sex: Female : 1975 Associated Diagnoses: None Author: SALEEM JIMENES MD-INT Subjective Patient was seen and examined today 08/17/2021 pain Anterior abdominal pain improving intensity 4/10 pain Tolerate soft diet Low-grade fever with T-max 100.6. Review of Systems [...] mg, 12 mL, 124 mL/Hr, IV Piggyback, [id number] Dulcolax Laxative: 5 mg, Oral, Daily, PRN: Constipation DuoNeb 0.5 mg-2.5 mg/3 mL inhalation solution: 3 mL, Nebulized Inhalation, RT_Q6H, PRN: Shortness of Breath Geodon: 40 mg, Oral, BID HYDROmorphone: 2 mg, Oral, Q4H, PRN: Pain Imitrex: 100 mg, Oral, Daily, PRN: Migraine Headache LaMICtal: 100 mg, Oral, Daily Lactated Ringers Injection intravenous solution 1,000 mL: 20 mL/Hr, IntraVENous Lovenox: 40 mg, SubCutaneous, [id number] MiraLax: 17 Gram, Oral, Daily, PRN: Constipation Neurontin: 300 mg, Oral, TID Pepcid: 20 mg, Oral, Daily Phenergan: 6.25 mg, IntraVENous, Q6H, PRN: Nausea Sodium Chloride 0.9% intravenous solution 1,000 mL: 50 mL/Hr, IntraVENous Viibryd: 40 mg, Oral, Daily Zofran: 4 mg, IV Push, Q4H, PRN: Nausea acetaminophen: 1,000 mg, Oral, TID carvedilol: 12.5 mg, Oral, BID clonazePAM: 0.5 mg, Oral, BID levothyroxine: 25 mcg, Oral, Daily lidocaine 1% injectable solution: 0.5 mL, IntraDermal, 1-Time, PRN: Other (See Comment) oxyCODONE: 5 mg, Oral, Q4H piperacillin-tazobactam + Sodium Chloride 0.9% intravenous solution [...] mg tab 1,000 mg 2 Tab, Oral, TID carvedilol 12.5 mg tab 12.5 mg 1 Tab, Oral, BID clonazePAM 0.5 mg tab 0.5 mg 1 Tab, Oral, BID DAPTOmycin + NaCl 0.9% 50 mL 600 mg 12 mL, IV Piggyback, [id number] enoxaparin 40 mg/0.4 mL inj 40 mg 0.4 mL, SubCutaneous, [id number] famotidine 20 mg tab 20 mg 1 Tab, Oral, Daily gabapentin 300 mg cap 300 mg 1 Cap, Oral, TID lamoTRIgine 100 mg tab 100 mg 1 Tab, Oral, Daily levothyroxine 25 mcg tab 25 mcg 1 Tab, Oral, Daily oxyCODONE 5 mg tab 5 mg 1 Tab, Oral, Q4H piperacillin-tazobactam + NaCl 0.9% 50 mL 3.375 Gram, IV Piggyback, Q6HInt vilazodone 10 mg tab 40 mg 4 Tab, Oral, Daily ziprasidone 20 mg cap 40 mg 2 Cap, Oral, BID Continuous: (2) lactated ringers 1,000 mL 1,000 mL, IntraVENous, 20 mL/Hr NaCl 0.9% 1,000 mL 1,000 mL, IntraVENous, 50 mL/Hr PRN: (8) albuterol-ipratropium inh 3 mL 3 mL, Nebulized Inhalation, RT_Q6H bisacodyl EC 5 mg tab 5 mg 1 Tab, Oral, Daily HYDROmorphone 2 mg tab 2 mg 1 Tab, Oral, Q4H lidocaine 1% *PF* inj 30 mL 0.5 mL, IntraDermal, 1-Time ondansetron 4 mg/2 mL inj 4 mg 2 mL, IV Push, Q4H polyethylene glycol 3350 pwd 17 g pkt 17 Gram 1 Packet, Oral, Daily promethazine 25 mg/1 mL inj 6.25 mg 0.25 mL, IntraVENous, Q6H SUMAtriptan 25 mg tab 100 mg 4 Tab, Oral, Daily Problem list: Medical History of obstructive sleep apnea / IMO [id number] / Confirmed Suicide risk / IMO [id number] / Confirmed, Active Problems (2) History of obstructive sleep apnea Suicide risk Objective VS/Measurements Vitals Signs (last 24 hrs) Last Charted Minimum Maximum Temp 98.1 (AUG 17 03:22) 97.9 (AUG 17 00:00) H 100.6 (AUG 16 14:23) Apical HR H 120 (AUG 16 15:12) H 120 (AUG 16 15:12) H 120 (AUG 16 15:12) Mon HR 91 (AUG 17 03:22) 90 (AUG 17 00:00) 122 (AUG 16 14:23) Resp Rate 18 (AUG 17 03:22) 15 (AUG 16 14:23) 20 (AUG 16 11:35) SBP 114 (AUG 17 03:22) L 80 (AUG 16 11:35) 114 (AUG 16 14:23) DBP 72 (AUG 17 03:22) L 40 (AUG 16 11:35) 74 (AUG 16 14:23) MAP 84 (AUG 17 03:22) 66 (AUG 16 21:26) 84 (AUG 16 14:23) SpO2 L 91 (AUG 17 08:04) L 90 (AUG 16 11:40) 96 (AUG 17 00:00) General: Alert and oriented, No acute distress, Morbid obese. Eye: Pupils are equal, round and reactive to light, Extraocular movements are intact. HENT: Normocephalic, No pharyngeal erythema. Neck: Supple, Tracheostomy tube in place. Respiratory: poor air entry b/l. . Cardiovascular: Normal rate, Regular rhythm. Gastrointestinal: Soft, Yellowish wheezing at the site of PEG tube. Dressing in place. Musculoskeletal: Normal range of motion, No tenderness. Integumentary: Warm, No rash. Neurologic: Alert, Oriented, No focal deficits. Psychiatric: Mood and affect: Anxious, Angry. Behavior: Agitated. Review / Management AUG 17 03:53 138 102 H 35 / H 113 4.4 29 H 1.80 \ AUG 17 03:53 \ L 9.5 / 6.2 172 / L 31.1 \ No Radiology Results Found Results review: Labs (Last four charted values) WBC 6.2 (AUG 17) 7.3 (AUG 16) 9.6 (AUG 14) HB L 9.5 (AUG 17) L 9.8 (AUG 16) L 10.7 (AUG 14) HCT L 31.1 (AUG 17) L 31.7 (AUG 16) L 32.8 (AUG 14) Plt 172 (AUG 17) L 161 (AUG 16) 186 (AUG 14) Na 138 (AUG 17) 139 (AUG 14) 136 (AUG 14) K 4.4 (AUG 17) 4.5 (AUG 16) 3.6 (AUG 14) Cl 102 (AUG 17) 102 (AUG 14) L 100 (AUG 12) CO2 29 (AUG 17) 32 (AUG 16) 31 (AUG 14) BUN H 35 (AUG 17) 22 (AUG 16) 17 (AUG 14) Cr H 1.80 (AUG 17) H 1.50 (AUG 16) H 1.20 (AUG 14) Glu R H 113 (AUG 17) H 111 (AUG 16) H 115 (AUG 14) Ca L 8.2 (AUG 17) 8.5 (AUG 16) 8.5 (AUG 14) Lactic [...] New Medications: acetaminophen 1,000 mg, Oral, Tab, TID, Start 08/16/21 15:00:00 EDT SALEEM JIMENES MD-INT carvedilol 12.5 mg, Oral, Tab, BID, Start 08/16/21 21:00:00 EDT SALEEM JIMENES MD-INT clonazePAM 0.5 mg, Oral, Tab, BID, Start 08/16/21 15:00:00 EDT SALEEM JIMENES MD-INT DAPTOmycin + Sodium Chloride 0.9% intravenous solution 50 mL 600 mg, IV Piggyback, Inj, [id number], infuse over 30 Minute(s), Routine, Start 08/17/21 9:00:00 EDT, 124 mL/Hr, Indication: Skin and Skin Structure Infection ERIKA GRANADO MD-INF famotidine (Pepcid) 20 mg, Oral, Tab, Daily, Start 08/17/21 9:00:00 EDT SALEEM JIMENES MD-INT gabapentin (Neurontin) 300 mg, Oral, Cap, TID, Start 08/16/21 15:00:00 EDT SALEEM JIMENES MD-INT HYDROmorphone 2 mg, Oral, Tab, Q4H, PRN for Pain, Start 08/16/21 16:38:00 EDT SALEEM JIMENES MD-INT Lactated Ringers Injection intravenous solution 1,000 mL 1,000 mL, Bag Volume (mL) = 1,000, IntraVENous, Rate = 20 mL/Hr, start date 08/16/21 11:33:00 EDT, Routine, 2.44, m2 EDILBERTO PATTERSON MD-ANS lamoTRIgine (LaMICtal) 100 mg, Oral, Tab, Daily, Start 08/16/21 16:32:00 EDT SALEEM JIMENES MD-INT lidocaine (lidocaine 1% injectable solution) 0.5 mL, IntraDermal, Inj, 1-Time, PRN for Other (See Comment), Routine, Start 08/16/21 11:33:00 EDT EDILBERTO PATTERSON MD-ANS oxyCODONE 5 mg, Oral, Tab, Q4H, Start 08/16/21 17:00:00 EDT SALEEM JIMENES MD-INT SUMAtriptan (Imitrex) 100 mg, Oral, Tab, Daily, PRN for Migraine Headache, Start 08/16/21 16:07:00 EDT SALEEM JIMENES MD-INT vilazodone (Viibryd) 40 mg, Oral, Tab, Daily, Start 08/16/21 16:30:00 EDT SALEEM JIMENES MD-INT ziprasidone (Geodon) 40 mg, Oral, Cap, BID, Start 08/16/21 15:00:00 EDT SALEEM JIMENES MD-INT Discontinued Medications: acetaminophen (Tylenol) 650 mg, Oral, Tab, Q4H, PRN for Pain (Mild 1-3), Routine, Start 08/14/21 23:49:00 EST, 08/14/21 23:49:00 EST EDUARD DE LOS SANTOS DO-SREE acetaminophen (Tylenol) 650 mg, Oral, Tab, Q4H, PRN for Fever, Routine, Start 08/14/21 23:49:00 EST, 08/14/21 23:49:00 EST EDUARD DE LOS SANTOS DO-INT buPROPion (Wellbutrin XL) 300 mg, Oral, XL Tab, Daily, Start 08/15/21 11:44:00 EDT SALEEM JIMENES MD-INT clonazePAM 0.5 mg, Oral, Tab, Daily, Start 08/15/21 11:44:00 EDT SALEEM JIMENES MD-INT divalproex sodium (Depakote ER) 500 mg, Oral, ER Tab, Daily, Start 08/15/21 11:44:00 EDT SALEEM JIMENES MD-INT famotidine (Pepcid) 20 mg, IV Push, Inj, Daily, Routine, Start 08/15/21 9:00:00 EDT, 08/14/21 23:49:00 EST EDUARD DE LOS SANTOS DO-INT gabapentin 800 mg, Oral, Cap, TID, Start [...] Start 08/15/21 11:42:00 EDT SALEEM JIMENES MD-INT oxyCODONE (Roxicodone) 5 mg, Oral, Tab, Q4H, PRN for Pain (Moderate 4-6), Routine, Start 08/14/21 23:49:00 EST, 08/14/21 23:49:00 EST EDUARD DE LOS SANTOS, DO-INT SUMAtriptan (Imitrex) 100 mg, Oral, Tab, Daily, Start 08/15/21 11:43:00 EDT SALEEM JIMENES MD-INT traZODone 100 mg, Oral, Tab, TID, Routine, Start 08/16/21 15:00:00 EDT, 08/15/21 12:03:00 EDT SALEEM JIMENES MD-INT traZODone 100 mg, Oral, Tab, TID, Routine, Start 08/15/21 15:00:00 EDT, 08/15/21 12:03:00 EDT SALEEM JIMENES MD-INT vancomycin + Sodium Chloride 0.9% intravenous solution 250 mL 1,500 mg, IV Piggyback, Inj, [id number], infuse over 60 Minute(s), Start 08/15/21 11:00:00 EDT, 250 mL/Hr, Indication: Sepsis ERIKA GRANADO MD-INF vilazodone (Viibryd) 40 mg, Oral, Tab, Daily, Start 08/15/21 11:43:00 EDT SALEEM JIMENES MD-INT ziprasidone (Geodon) 40 mg, Oral, Cap, Daily, Start 08/15/21 11:42:00 EDT SALEEM JIMENES MD-INT Impression and Plan Anterior abdominal wall cellulitis possible abscess at the site of PEG tube CT scan abdomen and pelvis from outside facility noted. No evidence of a loculated abscess Follow-up cultures. Continue broad-spectrum IV antibiotics. Pain control. GI consulted. PEG tube removed 08/16/2021 Advance diet as tolerated ID consulted Acute renal failure pain Likely due to volume depletion. Gentle hydration. Creatinine 1.2----> 1.8 Avoid nephrotoxic medications. Including Lasix Monitor kidney [...] cultures.. GI and ID consulted. Discharge date unable to determine documented in this encounter Plan of Treatment Not on file documented as of this encounter Visit Diagnoses Not on filedocumented in this encounter
--- OUTSIDE RECORDS SUMMARY | 2024-12-07 00:25 | XMS_ITS | Encounter Summary ---
Author Organization [employer] ([place], [place], [place], [place]) Address [address] [place] [address] Care Team Providers Care Water Inspector Name Role Phone Unavailable Primary Care Provider Unavailabl e Encounter Details Date Type Department Care Team (Late st Contact Info) Description 08/14/2021 Transcribed Document [facility] [place] [facility] [place] [address] ProviderMaría MD [address] [place] [address] Social History Tobacco Use Types Packs/Day [...] - Historical Provider, - 08/14/2021 11:19 PM METABOLIC SPECIALIST Evaluation, Physical Therapy Entered On: 08/15/2021 10:47 EDT Performed On: 08/15/2021 9:50 EDT by SONY ERYNA PT General Information, PT Visit Type, PT : Initial evaluation Patient Orders : Order Date Order Ordering 08/14/2021 23:19 PT Evaluation and Treatment Ordered By: EDUARD DE LOS SANTOS DO-INT Active Diagnoses : 08/14/2021 12:00 Abdominal pain 08/14/2021 12:00 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 Medical screening exam 08/14/2021 12:00 Unspecified abdominal pain Therapy Diagnosis, PT : Decreased strength Admission Date : 08/14/2021 22:53 Co-treated by, PT : Occupational Therapist Personal Devices : Personal Devices No Devices Recorded Assistive Devices : Assistive Devices No Devices Recorded General Information Comment, PT : Admitted with Sepsis, Peg Tube Infection Respiratory Arrest, Tracheostomy, IRLANDA, Morbid Obesity SONY REYNA, PT - 08/15/2021 10:36 EDT General Status Patient Received Status : Supine in bed, Other: Sitting up in bed with 1 leg out of the bed Treatment Start Time : 08/15/2021 9:38 EDT Patient Left Status : RN/PCT informed, Communication board completed, All needs met and within reach, Other: Sitting up in bed with right leg out of bed and on floor RN/PCT Informed Comment : OK to see per RN Treatment End Time : 08/15/2021 9:50 EDT Treatment Time : 12 Minute(s) SONY REYNA, PT - 08/15/2021 10:36 EDT History and Environment Living Situation, Therapy : Home Patient Lives With : Parent(s) Persons Assisting Patient at Home : Alone, Parent(s) Persons Providing Information : Patient Home Equipment Therapy, PT : None Home Setup : One story Stairs : Yes Stair Location(s) : Outside Outside Stairs, Number of Steps : 3 Railing Outside : No SONY REYNA, PT - 08/15/2021 10:36 EDT Prior Level of Function PT GRID Prior LOF Ambulation, Household : Independent Prior LOF Ambulation, Community : Independent Prior LOF Bed Mobility : Independent Prior LOF Toileting : Independent Prior LOF Transfer : Independent SONY REYNA, PT - 08/15/2021 10:36 EDT Intervention Summary O2 Pre-Intervention : 28% Trach Collar SpO2 Pre-Intervention : 95 % O2 Post-Intervention : 28% Trach Collar SpO2 Post-Intervention : 96 % SONY REYNA, PT - 08/15/2021 10:36 EDT Upper Extremity Upper Extremity Dominance : Right Right UE Active ROM : WFL Left UE Active ROM : WFL SONY REYNA, PT - 08/15/2021 10:36 EDT Right Upper Extremity MMT Shoulder Flexion 0-180 : 4/good Elbow Flexion 0-150 : 4/good Elbow Extension 0-0 : 4/good SONY REYNA, PT - 08/15/2021 10:36 EDT Left Upper Extremity MMT Shoulder Flexion 0-180 : 4/good Elbow Flexion 0-150 : 4/good Elbow Extension 0-0 : 4/good SONY REYNA, PT - 08/15/2021 10:36 EDT Lower Extremity RLE Active ROM : WFL LLE Active ROM : WFL Lower Extremity Comment : RLE at least 3/5 and demonstrated at least 2/5 LLE but would not get to EOB for complete test SONY REYNA, PT - 08/15/2021 10:36 EDT Functional Mobility Functional MobilityComment : Refused. Became very emotional at attempt SONY REYNA, PT - 08/15/2021 10:36 EDT Gait Training/Assessment, PT Gait Assistance Level : Unable to assess/activity not appropriate Walking Distance : Pt refusing to get up right now SONY REYNA, PT - 08/15/2021 10:36 EDT Cognition Assessment, PT Orientation : Oriented x 4 Follows Basic Command Assessment : Yes SONY REYNA, PT - 08/15/2021 10:36 EDT Edu Topics Physical Therapy Education Grid Role of Physical Therapy : Needs further teaching SONY REYNA, PT - 08/15/2021 10:36 EDT Indication Assesessment, PT Physical Therapy Indicated : Yes PT Problem List : Impaired, endurance tolerance, Impaired, strength Potential Barriers To Therapy : Emotional state, Patient compliance Rehabilitation Potential : Good SONY REYNA, PT - 08/15/2021 10:36 EDT Plan of Care, PT PT Tx Plan/Goals Established w Patient : Yes PT Frequency Rehab : Five days per week PT Duration Rehab : Fourteen days PT Treatments Planned : Balance training, Bed mobility training, Gait training, Therapeutic exercises, Transfer training SONY REYNA, PT - 08/15/2021 10:36 EDT Short Term Goals Mobility/Bed Mobility STG PT Grid Goal #1 Activity : Supine to sit Assist : Supervision or set-up Date to Meet : 08/22/2021 EDT Goal Status : Initial goal SONY REYNA, PT - 08/15/2021 10:36 EDT Ambulation STG Grid Goal #1 Device : Walker, front wheel Distance : 100' Assist : Supervision or set-up Date to Meet : 08/22/2021 EDT Goal Status : Intial Goal SONY REYNA, PT - 08/15/2021 10:36 EDT Route Service Representative Goals Mobility/Bed Mobility LTG PT Grid Goal #1 Activity : Sit to stand Assist : Supervision or set-up Date to Meet : 08/29/2021 EDT Goal Status : Intial Goal REYNASONY LAMB, PT - 08/15/2021 10:36 EDT Ambulation LTG Grid Goal #1 Device : None Distance : 300' Assist : Supervision or set-up Date to Meet : 08/29/2021 EDT Goal Status : Intial Goal Comment : No loss of balance SONY REYNA, PT - 08/15/2021 10:36 EDT Treatment Note Subjective Comment : Agreed to PT but then became really emotional during eval and refused to get out of bed or even get fully to the edge. I am finally comfortable here. Patient's Response to Treatment : Pt limited by emotional state Additional Objective Information : Participated with eval up to a point but refused to get EOB or try standing Assessment : Needs work on mobilty and strengthening Plan for Treatment : Ex Bed Mobilitiy Sitting EOB Transfers Gt SONY REYNA, PT - 08/15/2021 10:36 EDT Pain Assessment Pain Scaled Used : 0-10 Pain scale Pain Score Pre-Intervention : 7 Location : Thoracic, left SONY REYNA, PT - 08/15/2021 10:36 EDT Image 1 - Images currently included in the form version of this document have not been included in the text rendition version of the form. Anticipated Discharge Needs, OT/PT Anticipated Discharge to : Home, with family care, Home, with home health SONY REYNA, PT - 08/15/2021 10:36 EDT [facility] PT Charges PT Eval Moderate Complexity : 1 SONY REYNA, PT - 08/15/2021 10:36 EDT documented in this encounter Plan of Treatment Not on file documented as of this encounter Visit Diagnoses Not on filedocumented in this encounter
--- OUTSIDE RECORDS SUMMARY | 2024-12-07 00:25 | XMS_ITS | Encounter Summary ---
Author Organization [employer] ([place], [place], [place], [place]) Address [address] [place] [address] Care Team Providers Care Power System Operator Name Role Phone Unavailable Primary Care Provider Unavailabl e Encounter Details Date Type Department Care Team (Late st Contact Info) Description 08/19/2021 Transcribed Document [facility] [place] Family Medicine [facility] [place] [address] ProviderMaría MD [address] [place] [address] Social History Tobacco Use Types [...] Conversion Note - Historical ProviderMD - 08/19/2021 2:14 PM CDT Discharge Summary, PT Entered On: 08/19/2021 14:15 EDT Performed On: 08/19/2021 14:14 EDT by HEMA METCALF PT Discharge Summary Discharge Summary Provider Notified : Nursing Reason for Discharge : Discharge order Discharged to, Therapy : Home, with home health Discharge Summary Comment, PT : Pt is a 46-year-old female s/p PEG tube infection and abdominal pain. She was receiving skilled PTx to address concerns for decreased endurance and impaired ambulation. Pt now has confirmed discharge orders for home w/ home health. Pt has met 2/2STGs and 1/2LTGs HEMA METCALF, PT - 08/19/2021 14:14 EDT Short Term Goals Mobility/Bed Mobility STG PT Grid Goal #1 Activity : Supine to sit Assist : Supervision or set-up Date to Meet : 08/22/2021 EDT Goal Status : Goal met Date Met : 08/18/2021 EDT HEMA METCALF, PT - 08/19/2021 14:14 EDT Ambulation STG Grid Goal #1 Device : Walker, front wheel Distance : 100' Assist : Supervision or set-up Date to Meet : 08/22/2021 EDT Goal Status : Goal met Date Met : 08/19/2021 EDT HEMA METCALF, PT - 08/19/2021 14:14 EDT Rate Engineer Goals Mobility/Bed Mobility LTG PT Grid Goal #1 Activity : Sit to stand Assist : Supervision or set-up Date to Meet : 08/29/2021 EDT Goal Status : Goal met Date Met : 08/18/2021 EDT HEMA METCALF, PT - 08/19/2021 14:14 EDT Ambulation LTG Grid Goal #1 Device : None Distance : 300' Assist : Supervision or set-up Date to Meet : 08/29/2021 EDT Goal Status : Not met Comment : No loss of balance HEMA METCALF, PT - 08/19/2021 14:14 EDT documented in this encounter Plan of Treatment Not on file documented as of this encounter Visit Diagnoses Not on filedocumented in this encounter
--- OUTSIDE RECORDS SUMMARY | 2024-12-07 00:25 | XMS_ITS | Encounter Summary ---
Author Organization [employer] ([place], [place], [place], [place]) Address [address] [place] [address] Care Team Providers Care Extractor Plant Operator Name Role Phone Unavailable Primary Care Provider Unavailabl e Encounter Details Date Type Department Care Team (Late st Contact Info) Description 08/19/2021 Transcribed Document [facility] [place] [address] [place] [address] ProviderMaría MD [address] [place] [address] Social History Tobacco Use Types [...] Historical ProviderMD - 08/19/2021 3:17 PM CDT Stroke/Warfarin Instructions Entered On: 08/19/2021 15:17 EDT Performed On: 08/19/2021 15:17 EDT by Peg Staples RN Stroke/Warfarin Instructions Stroke/TIA Discharge Ins : N/A Warfarin Discharge Ins : N/A Peg Staples RN - 08/19/2021 15:17 EDT documented in this encounter Plan of Treatment Not on file documented as of this encounter Visit Diagnoses Not on filedocumented in this encounter
--- OUTSIDE RECORDS SUMMARY | 2024-12-07 00:25 | XMS_ITS | Encounter Summary ---
Author Organization [employer] ([place], [place], [place], [place]) Address [address] [place] [address] Care Team Providers Care Welder Fitter Helper Name Role Phone Unavailable Primary Care Provider Unavailabl e Encounter Details Date Type Department Care Team (Late st Contact Info) Description 08/17/2021 Transcribed Document [facility] [place] [facility] [place] [address] ProviderMaría MD [address] [place] [address] Social History Tobacco Use Types [...] Note - Historical ProviderMD - 08/17/2021 10:00 PM CDT Pain Assessment Entered On: 08/18/2021 0:15 EDT Performed On: 08/17/2021 22:17 EDT by Quynh Gunter RN Intervention Information: acetaminophen Performed by Quynh Gunter RN on 08/17/2021 21:17:00 EDT acetaminophen,1000mg Oral Pain Assessment Pain Assessment [...]
--- OUTSIDE RECORDS SUMMARY | 2024-12-07 00:25 | XMS_ITS | Encounter Summary ---
Author Organization [employer] ([place], [place], [place], [place]) Address [address] [place] [address] Care Team Providers Care Electrical Design Technologist Name Role Phone Unavailable Primary Care Provider Unavailabl e Encounter Details Date Type Department Care Team (Late st Contact Info) Description 08/19/2021 Transcribed Document [facility] [place] [facility] [place] [address] ProviderMaría MD [address] [place] [address] Social History Tobacco Use Types [...] Conversion Note - Historical ProviderMD - 08/19/2021 11:33 AM CDT UM Authorization Entered On: 08/19/2021 11:36 EDT Performed On: 08/19/2021 11:33 EDT by Zara Donald, Acetylene Torch Operator Primary Insurance Authorization Authorization and Policy Numbers : Insurance 1 Health Plan: [facility] Policy Number: [id number] Authorization Number: Insurance Primary Name : [facility] Policy Number: [id number] Authorization Status-Primary : Apprv contin stay Reference Number-Primary : [id number] Authorization Number-Primary : [id number] Number of Days Authorized-Primary : 9 Day(s) Authorized Service Begin Date-Primary : 08/14/2021 EST Authorized Service End Date-Primary : 08/23/2021 EDT Authorization Comments-Primary : Authorized per fax 08/19/21 @ 0837. This request for inpatient services has been approved x10 days. Next review due 08/24/21. -Efrem Gillette RN. Historical Authorization Comments-Primary : Comment 1: c/s review for inpt faxed wo to [facility] via [facility]. (VASYL HIGGINS, RN-Manager Human Capital 08/19/2021 09:00) Comment 2: inpt admit approved per fax from [facility] 08/16/21 auth# [id number] NRD 08-19-21 (EBEN HURTADO, Flute Teacher 08/16/2021 12:52) Comment 3: Clinicals submitted on [facility] website for IP approval (ROBERTO CARLOS CISNEROS RN 08/15/2021 12:09) Zara Donald, Acetylene Torch Operator - 08/19/2021 11:33 EDT documented in this encounter Plan of Treatment Not on file documented as of this encounter Visit Diagnoses Not on filedocumented in this encounter
[2024-12-07 00:26] LABS: Lactate Venous 1.7 mmol/L (0.4-2.0); VBG HCO3 30.3 mmol/L (23-30); VBG PH 7.22 mmol/L (7.31-7.41); VBG PO2 61.5 mmol/L (28-40)
[2024-12-07] MEDS: ACETAMINOPHEN 500MG TAB 1000 MG PO (00:35)
[2024-12-07 00:36] LABS: VBG PCO2 76.5 mmol/L (35-51)
[2024-12-07] MEDS: FUROSEMIDE 40MG/4ML VIAL 80 MG IV (00:36)
[2024-12-07 00:59] LABS: Albumin Level 4.4 g/dl (3.5-5.0); Chloride 97 mmol/L (98-107); Potassium 5.7 mmoL/L (3.5-5.1); Sodium 137 mmol/L (136-145)
[2024-12-07 01:00] LABS: Adenovirus,PCR Not Detected (NotDetected); Chlamydophila Pneumoniae, PCR Not Detected (NotDetected); Coronavirus 19, PCR Not Detected (NotDetected); Coronovirus HKU1,PCR Not Detected (NotDetected); Influenza A, PCR Not Detected (NotDetected); Influenza AH1, 2009 Not Detected (NotDetected); Influenza AH1, PCR Not Detected (NotDetected); Influenza AH3,PCR Not Detected (NotDetected); Influenza B, PCR Not Detected (NotDetected); Mycoplasma Pneumoniae, PCR Not Detected (NotDetected); Parainfluenza 1, PCR Not Detected (NotDetected); Parainfluenza 2, PCR Not Detected (NotDetected); Parainfluenza 3, PCR Not Detected (NotDetected); Parainfluenza 4, PCR Not Detected (NotDetected)
[2024-12-07] MEDS: VANCOMYCIN HCL 2,500 MG in 0.9 % SODIUM CHLORIDE 500 ML 250 MG IV ×2 (01:01→20:10)
[2024-12-07 01:02] LABS: Alanine Aminotransferase 16 U/L (12-78); Albumin/Globulin Ratio 1.0 (1.1-1.8); Alkaline Phosphatase 63 U/L (38-126); Anion Gap 13.7 mEq/L (5-15); Aspartate Amino Transferase 45 U/L (14-36); Bilirubin,Total 0.6 mg/dl (0.2-1.3); Blood Urea Nitrogen 25 mg/dl (7-17); Calcium 9.0 mg/dl (8.4-10.2); Carbon Dioxide 32 mmol/L (22.0-30.0); Creatinine Clearance Estimated 57 mL/min (50-200); Creatinine,Serum 1.10 mg/dl (0.52-1.04); Estimated Glomerular Filt Rate 53 ml/min (>60); GFR (African American) 64 ML/MIN (>60); Globulin 4.2 g/dL (1.3-3.2); Glucose 119 mg/dl (74-100); Total Protein,Serum 8.6 g/dl (6.3-8.2)
[2024-12-07 01:13] LABS: NT Pro Brain Natriuretic Pep. 1110 pg/mL (0-125)
[2024-12-07 01:14] LABS: Troponin I 0.02 ng/ml (0.00-0.034)
[2024-12-07 01:37] LABS: Microscopic, Urine URINE MICROSCOPIC (MICROSCOPIC)
[2024-12-07 01:51] LABS: Bilirubin,Urine Negative (Negative); Color,Urine YELLOW (Yellow); Glucose,Urine (UA) Negative (Negative); Ketones,Urine Negative (Negative); Leukocyte Esterase,Urine Negative (Negative); PH,Urine 6.0 (5.0-8.5); Protein,Urine TRACE (Negative); Specific Gravity, Urine 1.025 (1.005-1.030); Urobilinogen,Urine 0.2 EU/dl (0.2)
--- NOTE | 2024-12-07 02:04 | PC.NURSE ---
Pt O2 decreased to 69%. pt cyanotic, c/o dizziness, trying to cough. O2 titrated to 60%. RT and MD notified and to bedside. Pt then suctioned and titrated to 80% FIO2. Then placed on home BIPAP per MD Titus.
--- NOTE | 2024-12-07 03:06 | PC.NURSE ---
Pt arrived on unit @ [address] SRNA
[2024-12-07 03:13] LABS: Bacteria,Urine Trace /lpf
[2024-12-07 05:09] LABS: Troponin I 0.01 ng/ml (0.00-0.034)
[2024-12-07 05:29] LABS: ABG HCO3 27.0 mmhg (22.0-26.0); ABG PO2 75.1 mmhg (80-100); ABG TCO2 29.4 mmhg (23-27)
[2024-12-07 05:31] LABS: PEEP 8; Source Right Radial
[2024-12-07 05:35] LABS: ABG PH 7.16 mmol/L (7.35-7.45)
[2024-12-07 05:36] LABS: ABG PCO2 78.1 mmhg (35.0-45.0)
--- NOTE | 2024-12-07 05:44 | EXP.HP ---
History of Present Illness *Admission Date: 12/07/24 *Reason for visit:: SOB *History of present illness: Patient is a 49-year-old female who presents to the hospital due to shortness of breath, patient has past medical history of heart failure, respiratory failure on tracheostomy, morbid obesity. At time of my evaluation patient appears confused, most of the history is from patient's chart. Patient reported in the emergency department that she has gained around 20 pounds. On further evaluation patient was found to have elevated proBNP. Patient was given 80 Lasix IV in the ED with 1600 mL urine output so far. [facility] Disclaimer: The information contained in this section may have been updated after the patient was seen, as this information can be updated by other users. Medical History Tracheostomy tube present Low O2 saturation Cough Dermatitis Skin lesion Multiple substance abuse Degenerative disc disease, thoracic Acute exacerbation of chronic obstructive pulmonary disease Nausea and vomiting Abdominal pain Acute and chronic respiratory failure Obesity, morbid Deliberate self-cutting Otitis externa of left ear Dysphagia Hearing difficulty of left ear Otalgia, left ear Asthma Acute on chronic respiratory failure with hypoxia and hypercapnia Palpitations Ear pain, right Acute and chronic respiratory failure with hypercapnia PTSD (post-traumatic stress disorder) Chest pain Generalized anxiety disorder Recurrent major depression resistant to treatment Sleep apnea History of ectopic History of hyperkalemia Diastolic congestive heart failure Paranoid schizophrenia Uses bilevel positive airway pressure (BPAP) ventilation at home History of sleep apnea History of asthma Cellulitis of right lower extremity Acute and chronic respiratory failure with hypercapnia Pneumonia Acute and chronic respiratory failure Right lower lobe pneumonia History of smoking 30 or more pack years Obesity hypoventilation syndrome Chronic respiratory failure with hypercapnia Severe sepsis COVID-19 Acute and chronic respiratory failure Pneumonia Tracheostomy in place Edema Sinus tachycardia Dizziness Diastolic dysfunction Acute on chronic diastolic heart failure Respiratory failure with hypoxia and hypercapnia Congestive heart failure Acute on chronic diastolic heart failure Elevated d-dimer PAC (premature atrial contraction) Chest pain Dyspnea HTN (hypertension) COPD (chronic obstructive pulmonary disease) Tobacco abuse Abnormal stress test SOB (shortness of breath) Angina, class III Obesity Hypothyroidism (~11/21/17) Asthma Insomnia Depression Anxiety Neuropathy Surgical History History of tracheostomy History of appendectomy History of cholecystectomy History of colonoscopy History of left knee surgery History of hysterectomy Family History Other No significant family history Social History (Updated 12/07/24 @ 03:54 by Marina Hutson RN) Smoking Status: Current every day smoker tobacco type: cigarettes packs per day: 1 smoking status stop date: 02/2022 alcohol intake: former substance use type: marijuana current occupational status: disabled Travel in the last 8 weeks?: None household members: family housing: apartment number of children: 0 current occupational exposures/hazards: No caffeine: Yes Contact w/someone who lives/traveled outside [place] past 30 days?: No Exposure to someone with infectious disease in past 14 days?: No Do you have a fever (greater than 100.4 F or 38 C)?: Yes Have you tested positive for COVID-19?: No Exposed to someone with COVID-19 in past 14 days?: No Do you have a sore throat?: No Do you have a cough?: Yes Do you have any weakness?: Yes Are you experiencing any nausea/vomitting?: No Do you have any diarrhea?: No Are you experiencing any unusual bleeding?: No Do you have any muscle aches/pain?: No Do you have any abdominal pain?: No Are you experiencing loss of taste or smell?: No Other Medical History Have you received the Flu Vaccine for this season: No Have you received the Pneumonia Vaccine: No Review of Systems Review of Systems Review of systems:: unable to obtain Meds Home Medications and Allergies Home Medications ?Medication ?Instructions ?Recorded ?Confirmed ?Type losartan 25 mg tablet 25 mg PO DAILY #30 tabs 05/15/24 12/07/24 Rx propranolol 10 mg tablet 10 mg PO BID #60 tabs 05/15/24 12/07/24 Rx albuterol sulfate 90 mcg/actuation 2 inh inhalation Q6H PRN shortness 07/22/24 12/04/24 Rx aerosol inhaler (Ventolin HFA) of breath or wheezing #18 grams fluticasone fur. 100 mcg-umeclid 1 inh inhalation DAILY 90 days #90 07/22/24 12/04/24 Rx 62.5 mcg-vilant 25 mcg blisters inhalat.powder (Trelegy Ellipta) rivaroxaban 10 mg tablet (Xarelto) 10 mg PO DAILY #10 tabs 07/26/24 12/04/24 Rx cyclobenzaprine 5 mg tablet 5 mg PO TID 08/12/24 12/04/24 History linaclotide 145 mcg capsule 145 mcg PO DAILY #90 caps 08/13/24 12/04/24 Rx (Linzess) bisacodyl 5 mg tablet,delayed 5 mg PO HSP PRN constipation 08/31/24 12/04/24 History release (Dulcolax (bisacodyl)) ziprasidone HCl 40 mg capsule 40 mg PO BID #60 caps 09/06/24 12/07/24 Rx (Geodon) duloxetine 30 mg capsule,delayed 90 mg (3 x 30 mg) PO DAILY #180 09/11/24 12/04/24 Rx release caps levothyroxine 25 mcg tablet 25 mcg PO 0700 #90 tabs 09/11/24 12/07/24 Rx rimegepant 75 mg disintegrating 75 mg PO Q48H #40 tabs 09/11/24 12/04/24 Rx tablet (Nurtec ODT) torsemide 100 mg tablet 100 mg PO DAILY #90 tabs 09/11/24 12/07/24 Rx diazepam 5 mg tablet 5 mg PO BID PRN anxiety #60 tabs 10/10/24 12/04/24 Rx lamotrigine 100 mg tablet 100 mg PO DAILY #30 tabs 10/10/24 12/07/24 Rx ondansetron 4 mg disintegrating See Rx Instructions .Route 10/10/24 12/04/24 Rx tablet .COMPLEX #30 ea promethazine 25 mg tablet See Rx Instructions .Route 10/10/24 12/04/24 Rx .COMPLEX #30 tabs quetiapine 100 mg tablet See Rx Instructions .Route 10/10/24 12/07/24 Rx .COMPLEX #60 tabs sumatriptan succinate 100 mg tablet See Rx Instructions .Route 10/11/24 12/07/24 Rx .COMPLEX #10 tabs gabapentin 600 mg tablet 600 mg PO TID #90 tabs 11/08/24 12/07/24 Rx gentamicin 0.3 % eye drops 1 drp ophthalmic (eye) Q4H 11/11/24 12/04/24 Rx conjunctivitis #5 mL tirzepatide (weight loss) 2.5 2.5 mg (0.5 mL) SQ WEEKLY sleep 11/11/24 12/07/24 Rx mg/0.5 mL subcutaneous pen apnea, morbid obesity #2 mL injector (Zepbound) oxycodone-acetaminophen 10 mg-325 1 tab PO QIDP PRN Mild Pain (Scale 11/13/24 12/07/24 Rx mg tablet Score 1-4) #120 tabs terbinafine HCl 1 % topical cream 1 applic topical BID #30 grams 11/13/24 12/04/24 Rx (Lamisil AT) fluticasone propionate 50 1 spray intranasal DAILY #16 grams 11/14/24 12/04/24 Rx mcg/actuation nasal spray,suspension (Flonase Allergy Relief) spironolactone 50 mg tablet 50 mg PO DAILY 90 days #90 tabs 11/14/24 12/07/24 Rx (Aldactone) levofloxacin 750 mg tablet 750 mg PO DAILY 7 days #7 tabs 12/04/24 12/04/24 Rx omeprazole 40 mg capsule,delayed 80 mg PO BID 12/04/24 History release New Prescriptions to Start Prescriptions: Allergies Allergy/AdvReac Type Severity Reaction Status Date / Time doxycycline Allergy Severe Blister Verified 12/04/24 11:42 clindamycin Allergy Blister Verified 12/04/24 11:42 Sulfa (Sulfonamide AdvReac Intermediate Rash Verified 12/04/24 11:42 Antibiotics) amoxicillin AdvReac Other Verified 12/04/24 11:42 morphine AdvReac Headache Verified 12/04/24 11:42 nitrofurantoin (From AdvReac Other Verified 12/04/24 11:42 Macrobid) Exam Data for Last 24 hours Vital signs and Labs for Last 24 Hours: Temp Pulse Resp BP Pulse Ox O2 Del Method O2 Flow Rate 99.5 F 116 H 32 H 131/75 94 L CPAP 6 12/07/24 04:00 12/07/24 05:13 12/07/24 02:45 12/07/24 04:00 12/07/24 04:00 12/07/24 04:45 12/07/24 04:45 Laboratory Results - last 24 hr 12/07/24 00:02: WBC 10.6, RBC 4.64, Hgb 12.8, Hct 42.3, MCV 91.2, MCH 27.6, MCHC 30.3 L, RDW 16.5, Plt Count 233, MPV 10.4, Neut % (Auto) 75.4, Lymph % (Auto) 14.8, Barry % (Auto) 7.0, Eos % (Auto) 1.1, Baso % (Auto) 0.3, Neut # (Auto) 8.0 H, Lymph # (Auto) 1.6, Barry # (Auto) 0.7, Eos # (Auto) 0.1, Baso # (Auto) 0.0, Sodium 137, Potassium 5.7 H, Chloride 97 L, Carbon Dioxide 32 H, Anion Gap 13.7, BUN 25 H, Creatinine 1.10 H, Estimated Creat Clear 57, Estimated GFR 53 L, Est GFR ( Amer) 64, Glucose 119 H, Calcium 9.0, Total Bilirubin 0.6, AST 45 H, ALT 16, Alkaline Phosphatase 63, Troponin I 0.02, NT-Pro-B Natriuret Pep 1110 H, Total Protein 8.6 H, Albumin 4.4, Globulin 4.2 H, Albumin/Globulin Ratio 1.0 L 12/07/24 00:07: VBG pH 7.22 L, VBG pCO2 76.5 H, VBG pO2 61.5 H, VBG HCO3 30.3 H, VBG Total CO2 32.6 H, VBG O2 Saturation 92.1 H, VBG Base Excess 2.5 H, VBG Lactic Acid 1.7 12/07/24 00:31: Chlamy pneumoniae PCR Not detected, Adenovirus (PCR) Not detected, B. pertussis DNA (PCR) Not detected, Coronavirus OC43 (PCR) Not detected, Coronavirus HKU1 (PCR) Not detected, Coronavirus 229E (PCR) Not detected, SARS-CoV-2 (PCR) Not detected, Coronavirus NL63 (PCR) Not detected, Human Metapneumovir PCR Not detected, Influenza A (H1) PCR Not detected, Influ A (H1N1/09) PCR Not detected, Influenza A (H3) PCR Not detected, Influenza Type A (PCR) Not detected, Influenza Type B (PCR) Not detected, M. pneumoniae (PCR) Not detected, Parainfluenza 1 (PCR) Not detected, Parainfluenza 2 (PCR) Not detected, Parainfluenza 3 (PCR) Not detected, Parainfluenza 4 (PCR) Not detected, RSV (PCR) Not detected, Entero/Rhino (PCR) Not detected 12/07/24 01:30: Urine Color Yellow, Urine Appearance Clear, Urine pH 6.0, Ur Specific [place] 1.025, Urine Protein Trace, Urine Glucose (UA) Negative, Urine Ketones Negative, Urine Blood Negative, Urine Nitrate Negative, Urine Bilirubin Negative, Urine Urobilinogen 0.2, Ur Leukocyte Esterase Negative, Urine RBC None, Urine WBC 3-5, Ur Squamous Epith Cells 3-5, Urine Bacteria Trace, Hyaline Casts 3-5 12/07/24 04:24: Troponin I 0.01 12/07/24 04:43: Specimen Source Right radial, O2 % 6lpm bleed in, ABG pH 7.16 L*, ABG pCO2 78.1 H, ABG pO2 75.1 L, ABG HCO3 27.0 H, ABG Total CO2 29.4 H, ABG O2 Saturation 94, ABG Base Excess -1.8, Vaughn Test Acceptable, Vent Rate 12, Tidal Volume 450, PEEP 8 I & O for Last 24 hours: Intake & Output 12/04/24 12/05/24 12/06/24 12/07/24 23:59 23:59 23:59 23:59 Output Total 1599 / 1600 Balance -1599 / -1600 Weight 145.15 kg 186.4 kg Constitutional Constitutional: no acute distress *Routine HEENT Exam Head: Present normocephalic Eye: Present EOMI and PERRL ENT: Present mucous membranes moist *Routine Neck Exam Neck: Present supple; Absent lymphadenopathy *Routine Respiratory Exam Respiratory: Present decreased breath sounds, rhonchi and wheezes *Routine Cardiovascular Exam Cardiovascular: Present RRR *Routine Abdominal Exam Abdominal: Present soft and normoactive bowel sounds; Absent tenderness *Routine Rectal Exam Rectal:: deferred *Routine Genitalia Exam Genitalia:: deferred *Routine Extremities Exam Extremities: Absent cyanosis, clubbing or edema *Routine Skin Exam Skin: Present warm; Absent rash *Routine Neurological Exam Neurological: Present alert and oriented X3 Assessment and Plan *Assessment and plan (1) Acute on chronic respiratory failure with hypoxia and hypercapnia: Status: Acute Category: Medical Code(s): J96.21 - Acute and chronic respiratory failure with hypoxia; J96.22 - Acute and chronic respiratory failure with hypercapnia (2) (HFpEF) heart failure with preserved ejection fraction: Status: Acute Category: Medical Code(s): I50.30 - Unspecified diastolic (congestive) heart failure (3) Pickwickian syndrome: Status: Chronic Category: Medical Code(s): E66.2 - Morbid (severe) obesity with alveolar hypoventilation Plan Patient is a 49-year-old female who presents to the hospital due to shortness of breath, patient has past medical history of heart failure, respiratory failure on tracheostomy, morbid obesity. At time of my evaluation patient appears confused, most of the history is from patient's chart. Patient reported in the emergency department that she has gained around 20 pounds. On further evaluation patient was found to have elevated proBNP. Patient was given 80 Lasix IV in the ED with 1600 mL urine output so far. Assessment and plan Acute hypoxic hypercapnic respiratory failure likely secondary to COPD exacerbation Acute on chronic CHF exacerbation, preserved ejection fraction Pickwickian syndrome Check blood gas Continue ventilator support through tracheostomy Consult pulmonary Order echocardiogram Order 40 IV Lasix twice daily Order 40 Solu-Medrol every 6 DuoNebs scheduled Chest x-ray not suggestive of acute pulmonary consolidation Chronic medical conditions CKD stage III Morbid obesity with pickwickian syndrome Hypothyroidism Hypertension Resume home levothyroxine, losartan DVT prophylaxis-heparin subcutaneous
[2024-12-07] MEDS: IPRATROPIUM/ALBUTEROL 3 ML NEB IH ×4 (06:16→23:26)
[2024-12-07] MEDS: METHYLPREDNISOLONE SOD SUCC 40MG VIAL 40 MG IV (06:25)
[2024-12-07] MEDS: LEVOTHYROXINE 25MCG (0.025MG) TAB 25 MCG PO (06:31)
--- NOTE | 2024-12-07 06:35 | PC.NURSE ---
Pt. is currently on home Trilogy unit with current settings AC, VT450, Rate 12, Peep 8 with 6lpm 02 bled in.
[2024-12-07] MEDS: OXYCODONE 10MG W/APAP 325MG TABLET 1 EACH PO ×4 (06:46→23:30)
[2024-12-07 07:52] LABS: Hematocrit 40.7 % (37.0-47.0); Hemoglobin 11.8 g/dL (12.2-16.2); Immature Granulocytes % 0.9 %; Mean Corpuscular HGB Conc 29.0 g/dL (31.8-35.4); Mean Corpuscular Hemoglobin 26.8 pg (27.0-31.2); Mean Corpuscular Volume 92.3 fl (81-99); Nucleated Red Blood Cells % 0.2 %; Platelet Count 187 K/mm3 (142-424); Red Blood Count 4.41 M/mm3 (4.20-5.40); Red Cell Distribution Width-SD 55.1 fL; White Blood Count 15.5 K/mm3 (4.8-10.8)
--- NOTE | 2024-12-07 08:06 | EXP.CCNOTE ---
Critical Care Event Note Summary Code activated: No Narrative: This case had a high probability of a clinically significant, sudden, or life threatening deterioration of this patient's condition which required my full and direct attention, intervention and personal management. Morbidly obese 49-year-old female with a PMHx of chronic hypoventilation syndrome, respiratory failure post COVID, trach dependance, on home oxygen 3L, MDD, migraine, hypothyroidism, anxiety disorder, HFpEF, chronic bilateral lymphedema and a former smoker. Presented with falls, worsening confusion. Found to have acute on chronic hypercapnic respiratory failure. Patient also appears to be volume overloaded with weight gain since last visit and significant abdominal wall edema. Erythema of abdominal wall concerning for possible cellulitis versus edema. Acute on chronic hypercapnic respiratory failure Tracheostomy dependance. obesity hypoventilation syndrome - This morning has continued to have hypercarbia on repeat blood gases. Most recent with pH less than 7.2. PO2 of 78. Syd contacted to make adjustments to patient's home BiPAP. Will increase backup rate to 18. Repeat blood gas with VBG ordered for 5 PM. Initiated on Bumex drip due to volume overload and pitting edema of legs and abdomen. Has had good response so far. Over 3500 cc of urine output and -2.5 L since admission - White count normal this morning at 10.6. Hemoglobin 12.8. Lower concern for systemic infection. Continuing broad-spectrum antibiotics for at least 48 hours with vancomycin and Traxam daily. - Repeat BMP ordered for the afternoon to monitor kidney function with Bumex drip. Creatinine bumped to 1.4. Will hold drip after bump in creatinine. Reevaluate drip in the morning - Repeat CBC, CMP, magnesium ordered for the morning. -Continue trach care per nursing; continue supplemental oxygen through noninvasive respiratory device, goal sats greater 90% - Pulmonology consulted to assist with care. Patient fatigued but will open eyes and answer questions appropriately. No tana CO2 narcosis but is definitely altered from baseline per previous experience with - Sputum and blood cultures cultures pending - Electrolyte protocol ordered, replace potassium and magnesium as needed. Potassium elevated this morning at 5.7. Improved with diuresis to 4.8. ICU/Critical care attestation This patient is critically ill with 40 minutes devoted solely to this patient managing life/organ supporting interventions that required physician assessment. This includes time spent making adjustments in ventilator settings, IV fluid administration, titration of pressors, adjustments of medications, discussion of patient with consultants and other care providers as well as updating patient and/or family (if patient by virtue of his/her condition is unable to participate in decision making). This does not include time spent performing separately billed procedures. Time is not concurrent with that of other providers. Critical care time: 30 - [address] [facility] Critical Care Exam Physical Exam Vital signs: Temp Pulse Resp BP Pulse Ox O2 Del Method O2 Flow Rate 99.5 F 93 H 16 109/66 L 93 L Trach Collar/Tube, CPAP 6 12/07/24 04:00 12/07/24 07:00 12/07/24 07:00 12/07/24 07:00 12/07/24 07:00 12/07/24 07:00 12/07/24 07:00 Constitutional Constitutional: Present moderate distress, morbidly obese, chronically ill appearing and cooperative Routine HEENT Exam Head: Present cushingoid faces Eye: Present EOMI ENT: Present mucous membranes moist Detailed Eye Exam Eyelids: left: normal inspection Routine Neck Exam Comments: Trach collar in place Routine Respiratory Exam Respiratory: Present distant breath sounds and diminished air movement Routine Abdominal Exam Abdominal: Present obese Comments: Edema of abdominal wall, mild erythema diffusely on abdominal wall. Not significantly tender. Blanches. Findings consistent with anasarca
[2024-12-07] MEDS: FUROSEMIDE 40MG/4ML VIAL 40 MG IV (09:25)
[2024-12-07] MEDS: CYCLOBENZAPRINE 10MG TABLET 5 MG PO ×3 (09:25→20:11)
[2024-12-07] MEDS: IRBESARTAN 75MG TABLET 37.5 MG PO (09:26)
[2024-12-07] MEDS: PROPRANOLOL 20MG TAB 10 MG PO ×2 (09:26→20:09)
[2024-12-07] MEDS: SPIRONOLACTONE 25MG TABLET 50 MG PO (09:26)
[2024-12-07] MEDS: PANTOPRAZOLE 40MG TABLET 40 MG PO ×2 (09:26→20:09)
[2024-12-07] MEDS: ZIPRASIDONE 20MG CAPSULE 40 MG PO ×2 (09:27→20:10)
[2024-12-07] MEDS: GABAPENTIN 600MG TABLET 600 MG PO ×3 (09:28→20:10)
[2024-12-07 09:41] LABS: Alanine Aminotransferase 13 U/L (12-78); Albumin Level 3.8 g/dl (3.5-5.0); Albumin/Globulin Ratio 1.3 (1.1-1.8); Alkaline Phosphatase 80 U/L (38-126); Anion Gap 13.8 mEq/L (5-15); Aspartate Amino Transferase 22 U/L (14-36); Bilirubin,Total 0.4 mg/dl (0.2-1.3); Blood Urea Nitrogen 26 mg/dl (7-17); Calcium 8.7 mg/dl (8.4-10.2); Carbon Dioxide 31 mmol/L (22.0-30.0); Chloride 95 mmol/L (98-107); Creatinine Clearance Estimated 44 mL/min (50-200); Creatinine,Serum 1.20 mg/dl (0.52-1.04); Estimated Glomerular Filt Rate 48 ml/min (>60); GFR (African American) 58 ML/MIN (>60); Globulin 3.0 g/dL (1.3-3.2); Glucose 129 mg/dl (74-100); Potassium 4.8 mmoL/L (3.5-5.1); Sodium 135 mmol/L (136-145); Total Protein,Serum 6.8 g/dl (6.3-8.2)
--- NOTE | 2024-12-07 09:42 | HMH.PHAINT1 ---
Pharmacy Intervention Comments: MEDICATION RECONCILIATION COMPLETED ON PATIENT USING EXTERNAL FILL HISTORY FROM PHARMACY AND LIST FROM PCP OFFICE. -ISIDRO GARCIA, SAID
[2024-12-07 10:22] LABS: ABG HCO3 28.8 mmhg (22.0-26.0); ABG PO2 76.5 mmhg (80-100); ABG TCO2 31.2 mmhg (23-27)
[2024-12-07 10:33] LABS: ABG PH 7.18 mmol/L (7.35-7.45); Source Right Radial
[2024-12-07 10:34] LABS: ABG PCO2 79.3 mmhg (35.0-45.0)
[2024-12-07 10:45] LABS: Procalcitonin 0.706 ng/mL (0.0-2.0)
[2024-12-07] MEDS: FLUTICASONE/UMECLIDIN/VILANTER 100/62.5/25MCG INHALER 1 PUFF IH (11:02)
[2024-12-07] MEDS: BUMETANIDE 10 MG in 0.9 % SODIUM CHLORIDE 60 ML IV (11:12)
--- NOTE | 2024-12-07 11:18 | EXP.PHA.CONS ---
Pharmacy Consult Date: 12/07/24 Time: 11:18 Referring provider: DR. SAWANT Reason for Consult:: VANCOMYCIN DOSING Allergies Allergy/AdvReac Type Severity Reaction Status Date / Time doxycycline Allergy Severe Blister Verified 12/04/24 11:42 clindamycin Allergy Blister Verified 12/04/24 11:42 Sulfa (Sulfonamide AdvReac Intermediate Rash Verified 12/04/24 11:42 Antibiotics) amoxicillin AdvReac Other Verified 12/04/24 11:42 morphine AdvReac Headache Verified 12/04/24 11:42 nitrofurantoin (From AdvReac Other Verified 12/04/24 11:42 Macrobid) Home Medications ?Medication ?Instructions ?Recorded ?Confirmed ?Type losartan 25 mg tablet 25 mg PO DAILY #30 tabs 05/15/24 12/07/24 Rx propranolol 10 mg tablet 10 mg PO BID #60 tabs 05/15/24 12/07/24 Rx fluticasone fur. 100 mcg-umeclid 1 inh inhalation DAILY 90 days #90 07/22/24 12/07/24 Rx 62.5 mcg-vilant 25 mcg blisters inhalat.powder (Trelegy Ellipta) rivaroxaban 10 mg tablet (Xarelto) 10 mg PO DAILY #10 tabs 07/26/24 12/07/24 Rx cyclobenzaprine 5 mg tablet 5 mg PO TID 08/12/24 12/07/24 History linaclotide 145 mcg capsule 145 mcg PO DAILY #90 caps 08/13/24 12/07/24 Rx (Linzess) ziprasidone HCl 40 mg capsule 40 mg PO BID #60 caps 09/06/24 12/07/24 Rx (Geodon) duloxetine 30 mg capsule,delayed 90 mg (3 x 30 mg) PO DAILY #180 09/11/24 12/07/24 Rx release caps levothyroxine 25 mcg tablet 25 mcg PO 0700 #90 tabs 09/11/24 12/07/24 Rx rimegepant 75 mg disintegrating 75 mg PO Q48H #40 tabs 09/11/24 12/07/24 Rx tablet (Nurtec ODT) torsemide 100 mg tablet 100 mg PO DAILY #90 tabs 09/11/24 12/07/24 Rx lamotrigine 100 mg tablet 100 mg PO DAILY #30 tabs 10/10/24 12/07/24 Rx gabapentin 600 mg tablet 600 mg PO TID #90 tabs 11/08/24 12/07/24 Rx tirzepatide (weight loss) 2.5 2.5 mg (0.5 mL) SQ WEEKLY sleep 11/11/24 12/07/24 Rx mg/0.5 mL subcutaneous pen apnea, morbid obesity #2 mL injector (Zepbound) oxycodone-acetaminophen 10 mg-325 1 tab PO QIDP PRN Mild Pain (Scale 11/13/24 12/07/24 Rx mg tablet Score 1-4) #120 tabs fluticasone propionate 50 1 spray intranasal DAILY #16 grams 11/14/24 12/07/24 Rx mcg/actuation nasal spray,suspension (Flonase Allergy Relief) spironolactone 50 mg tablet 50 mg PO DAILY 90 days #90 tabs 11/14/24 12/07/24 Rx (Aldactone) levofloxacin 750 mg tablet 750 mg PO DAILY 7 days #7 tabs 12/04/24 12/04/24 Rx omeprazole 40 mg capsule,delayed 40 mg PO BID 12/04/24 12/07/24 History release albuterol sulfate 90 mcg/actuation 2 inh inhalation Q6HP PRN 12/07/24 12/07/24 History aerosol inhaler (Ventolin HFA) shortness of breath or wheezing diazepam 5 mg tablet 5 mg PO BIDP PRN anxiety 12/07/24 12/07/24 History ondansetron 4 mg disintegrating 4 mg PO Q6HP PRN Nausea And 12/07/24 12/07/24 History tablet Vomiting promethazine 25 mg tablet 25 mg PO TIDP PRN Nausea And 12/07/24 12/07/24 History Vomiting quetiapine 100 mg tablet 200 mg PO HS 12/07/24 12/07/24 History sumatriptan succinate 100 mg tablet 100 mg PO DAILYP PRN Migraine 12/07/24 12/07/24 History Headache New Prescriptions to Start Prescriptions: Height: 1.57 m Weight: 186.4 kg Laboratory Results:: Laboratory Results - last 24 hr 12/07/24 00:02: WBC 10.6, RBC 4.64, Hgb 12.8, Hct 42.3, MCV 91.2, MCH 27.6, MCHC 30.3 L, RDW 16.5, Plt Count 233, MPV 10.4, Neut % (Auto) 75.4, Lymph % (Auto) 14.8, [place] % (Auto) 7.0, Eos % (Auto) 1.1, Baso % (Auto) 0.3, Neut # (Auto) 8.0 H, Lymph # (Auto) 1.6, [place] # (Auto) 0.7, Eos # (Auto) 0.1, Baso # (Auto) 0.0, Sodium 137, Potassium 5.7 H, Chloride 97 L, Carbon Dioxide 32 H, Anion Gap 13.7, BUN 25 H, Creatinine 1.10 H, Estimated Creat Clear 57, Estimated GFR 53 L, Est GFR ( Amer) 64, Glucose 119 H, Calcium 9.0, Total Bilirubin 0.6, AST 45 H, ALT 16, Alkaline Phosphatase 63, Troponin I 0.02, NT-Pro-B Natriuret Pep 1110 H, Total Protein 8.6 H, Albumin 4.4, Globulin 4.2 H, Albumin/Globulin Ratio 1.0 L 12/07/24 00:07: VBG pH 7.22 L, VBG pCO2 76.5 H, VBG pO2 61.5 H, VBG HCO3 30.3 H, VBG Total CO2 32.6 H, VBG O2 Saturation 92.1 H, VBG Base Excess 2.5 H, VBG Lactic Acid 1.7 12/07/24 00:31: Chlamy pneumoniae PCR Not detected, Adenovirus (PCR) Not detected, B. pertussis DNA (PCR) Not detected, Coronavirus OC43 (PCR) Not detected, Coronavirus HKU1 (PCR) Not detected, Coronavirus 229E (PCR) Not detected, SARS-CoV-2 (PCR) Not detected, Coronavirus NL63 (PCR) Not detected, Human Metapneumovir PCR Not detected, Influenza A (H1) PCR Not detected, Influ A (H1N1/09) PCR Not detected, Influenza A (H3) PCR Not detected, Influenza Type A (PCR) Not detected, Influenza Type B (PCR) Not detected, M. pneumoniae (PCR) Not detected, Parainfluenza 1 (PCR) Not detected, Parainfluenza 2 (PCR) Not detected, Parainfluenza 3 (PCR) Not detected, Parainfluenza 4 (PCR) Not detected, RSV (PCR) Not detected, Entero/Rhino (PCR) Not detected 12/07/24 01:30: Urine Color Yellow, Urine Appearance Clear, Urine pH 6.0, Ur Specific [place] 1.025, Urine Protein Trace, Urine Glucose (UA) Negative, Urine Ketones Negative, Urine Blood Negative, Urine Nitrate Negative, Urine Bilirubin Negative, Urine Urobilinogen 0.2, Ur Leukocyte Esterase Negative, Urine RBC None, Urine WBC 3-5, Ur Squamous Epith Cells 3-5, Urine Bacteria Trace, Hyaline Casts 3-5 12/07/24 04:24: Troponin I 0.01 12/07/24 04:43: Specimen Source Right radial, O2 % 6lpm bleed in, ABG pH 7.16 L*, ABG pCO2 78.1 H, ABG pO2 75.1 L, ABG HCO3 27.0 H, ABG Total CO2 29.4 H, ABG O2 Saturation 94, ABG Base Excess -1.8, Vaughn Test Acceptable, Vent Rate 12, Tidal Volume 450, PEEP 8 12/07/24 07:35: WBC 15.5 H D, RBC 4.41, Hgb 11.8 L, Hct 40.7, MCV 92.3, MCH 26.8 L, MCHC 29.0 L, RDW 16.3, Plt Count 187, MPV 9.9, Neut % (Auto) 88.1 H, Lymph % (Auto) 4.2 L, [place] % (Auto) 6.5, Eos % (Auto) 0.1, Baso % (Auto) 0.2, Neut # (Auto) 13.6 H, Lymph # (Auto) 0.7, [place] # (Auto) 1.0, Eos # (Auto) 0.0, Baso # (Auto) 0.0, Sodium 135 L, Potassium 4.8, Chloride 95 L, Carbon Dioxide 31 H, Anion Gap 13.8, BUN 26 H, Creatinine 1.20 H, Estimated Creat Clear 44, Estimated GFR 48 L, Est GFR ( Amer) 58 L, Glucose 129 H, Calcium 8.7, Total Bilirubin 0.4, AST 22 D, ALT 13, Alkaline Phosphatase 80, Total Protein 6.8, Albumin 3.8 D, Globulin 3.0, Albumin/Globulin Ratio 1.3, Procalcitonin 0.706 12/07/24 10:08: Specimen Source Right radial, O2 % 6lpm bled in, ABG pH 7.18 L*, ABG pCO2 79.3 H, ABG pO2 76.5 L, ABG HCO3 28.8 H, ABG Total CO2 31.2 H, ABG O2 Saturation 95, ABG Base Excess 0.4, Vaughn Test Acceptable, Vent Rate 12, Tidal Volume 450 Medical History: Medical History (Updated 12/07/24 @ 02:39 by Leopoldo Titus MD) Tracheostomy tube present Low O2 saturation Cough Dermatitis Skin lesion Multiple substance abuse Degenerative disc disease, thoracic Acute exacerbation of chronic obstructive pulmonary disease Nausea and vomiting Abdominal pain Acute and chronic respiratory failure Obesity, morbid Deliberate self-cutting Otitis externa of left ear Dysphagia Hearing difficulty of left ear Otalgia, left ear Asthma Acute on chronic respiratory failure with hypoxia and hypercapnia Palpitations Ear pain, right Acute and chronic respiratory failure with hypercapnia PTSD (post-traumatic stress disorder) Chest pain Generalized anxiety disorder Recurrent major depression resistant to treatment Sleep apnea History of ectopic History of hyperkalemia Diastolic congestive heart failure Paranoid schizophrenia Uses bilevel positive airway pressure (BPAP) ventilation at home History of sleep apnea History of asthma Cellulitis of right lower extremity Acute and chronic respiratory failure with hypercapnia Pneumonia Acute and chronic respiratory failure Right lower lobe pneumonia History of smoking 30 or more pack years Obesity hypoventilation syndrome Chronic respiratory failure with hypercapnia Severe sepsis COVID-19 Acute and chronic respiratory failure Pneumonia Tracheostomy in place Edema Sinus tachycardia Dizziness Diastolic dysfunction Acute on chronic diastolic heart failure Respiratory failure with hypoxia and hypercapnia Congestive heart failure Acute on chronic diastolic heart failure Elevated d-dimer PAC (premature atrial contraction) Chest pain Dyspnea HTN (hypertension) COPD (chronic obstructive pulmonary disease) Tobacco abuse Abnormal stress test SOB (shortness of breath) Angina, class III Obesity Hypothyroidism (~11/21/17) Asthma Insomnia Depression Anxiety Neuropathy Assessment and Plan Assessment and plan all Dx Assessment and Plan for all problems:: Pharmacokinetic dosing service Objective: Patient: Floor: Age: 49 yo Serum creatinine: 1.20 mg/dL Height: 62.0 Inches Weight (kg): 186.4 Assessment: IBW (kg): 50.10 Dosing wt(kg): 186.4 Estimated Creatinine clearance (ml/min): 44.4 CRCL method: Cockcroft and Gault using ibw(default). Drug selected: Vancomycin Loading dose (mg): Vd (liters): 149.1 (factor used: 0.8 L/kg) Bro (hr-1): 0.041 Half life (hrs): 16.91 CLvanco=?? 6.113 L/hr Recommended dose: 2500 mg Interval: 18 hrs Infusion time (hrs): 2.0 Predicted peak (mcg/mL): 30.8 Predicted trough (mcg/mL): 15.98 Total body weight is being used for vancomycin dosing. Recommendations: Give Vancomycin 2500 mg q 18 hrs with an expected Cpeak of 30.8 mcg/ml and an expected Ctrough of 15.98 mcg/ml AUC 0-24 /JOAN Data: JOAN 0.5 mcg/mL:?? AUC/JOAN:? 1090.6 JOAN 1.0 mcg/mL:?? AUC/JOAN:? 545.3 --------- JOAN 1.5 mcg/mL:?? AUC/JOAN:? 363.5 JOAN 2.0 mcg/mL:?? AUC/JOAN:? 272.6 Thank you for the consult, will continue to follow. -ISIDRO GARCIA PHARMD
[2024-12-07 13:26] LABS: Troponin I 0.02 ng/ml (0.00-0.034)
[2024-12-07 15:03] LABS: Anion Gap 10.8 mEq/L (5-15); Blood Urea Nitrogen 28 mg/dl (7-17); Calcium 8.6 mg/dl (8.4-10.2); Carbon Dioxide 33 mmol/L (22.0-30.0); Chloride 95 mmol/L (98-107); Creatinine Clearance Estimated 38 mL/min (50-200); Creatinine,Serum 1.40 mg/dl (0.52-1.04); Estimated Glomerular Filt Rate 40 ml/min (>60); GFR (African American) 48 ML/MIN (>60); Glucose 151 mg/dl (74-100); Potassium 4.8 mmoL/L (3.5-5.1); Sodium 134 mmol/L (136-145)
[2024-12-07 17:53] LABS: ABG HCO3 32.0 mmhg (22.0-26.0); ABG PH 7.26 mmol/L (7.35-7.45); ABG PO2 64.1 mmhg (80-100); ABG TCO2 34.2 mmhg (23-27)
[2024-12-07 17:55] LABS: Source rr
[2024-12-07 17:56] LABS: ABG PCO2 72.6 mmhg (35.0-45.0)
[2024-12-07] MEDS: QUETIAPINE 100MG TABLET 200 MG PO (20:09)
--- NOTE | 2024-12-07 22:42 | PC.NURSE ---
Nurse and SRNA went into patient room to do bath like patient and nursing staff had discussed earlier in the shift and patient refused her bath and changing of her linens and stated she is not in the mood right now and requests to wait until tomorrow when she is feeling better. Patient educated on the importance of hygiene for her cellulitis and infection control and she still refused bathing at this time. Secured all ivs with new dressings and all lines are flushing and working well. Will continue to educate patient on importance of her continuing to wear her trilogy and oxygenation to her body being a priority since she continues to take herself off of her oxygen to eat and is desatting down to the 70's. Nurse educated on importance of adherence to treatment plan, patient continued to drink mountain dew instead of letting me put her o2 back on. she is now resting in the bed and seems comfortable, no requests at this time.
[2024-12-08] VITALS (35 sets, daily range): BP systolic 80–149; BP diastolic 41–106; PULSE 78–102; RESP 11–22; TEMP 36.7–37.1; O2SAT 89–99; BMI 76.0
--- NOTE | 2024-12-08 00:02 | PC.NURSE ---
Patient started screaming at nurse refusing to put her oxygen back in and told me I was a bitch, travel information center supervisor notified and nurses changed to Marina Rn. Patient was educated on respectful treatment of the staff and that she will not be screaming and swearing at the staff.
[2024-12-08] MEDS: LEVOTHYROXINE 25MCG (0.025MG) TAB 25 MCG PO (06:14)
[2024-12-08] MEDS: FLUTICASONE/UMECLIDIN/VILANTER 100/62.5/25MCG INHALER 1 PUFF IH (06:18)
[2024-12-08] MEDS: IPRATROPIUM/ALBUTEROL 3 ML NEB IH ×4 (06:18→23:53)
[2024-12-08] MEDS: IRBESARTAN 75MG TABLET 37.5 MG PO (08:02)
[2024-12-08] MEDS: CYCLOBENZAPRINE 10MG TABLET 5 MG PO ×3 (08:03→20:47)
[2024-12-08] MEDS: PROPRANOLOL 20MG TAB 10 MG PO ×2 (08:04→20:45)
[2024-12-08] MEDS: ZIPRASIDONE 20MG CAPSULE 40 MG PO ×2 (08:05→20:46)
[2024-12-08] MEDS: GABAPENTIN 600MG TABLET 600 MG PO ×3 (08:05→20:49)
[2024-12-08] MEDS: PANTOPRAZOLE 40MG TABLET 40 MG PO ×2 (08:05→20:46)
[2024-12-08] MEDS: SPIRONOLACTONE 25MG TABLET 50 MG PO (08:06)
[2024-12-08] MEDS: METHYLPREDNISOLONE SOD SUCC 40MG VIAL 40 MG IV (08:06)
[2024-12-08] MEDS: OXYCODONE 10MG W/APAP 325MG TABLET 1 EACH PO ×2 (08:15→20:58)
--- NOTE | 2024-12-08 08:28 | EXP.ACUTE.PN ---
Subjective *Date: 12/08/24 *Time: 12:45 Interval history: Patient wore her home trilogy/BiPAP for most of the night. Repeat blood gas obtained this morning showing improvement. Will bit more alert and less fatigued today. Improvement in tenderness of belly on exam. No nausea or vomiting. Afebrile Medical Exam Vital signs and Labs for Last 24 Hours: Vital Signs Temp Pulse Resp BP Pulse Ox O2 Del Method O2 Flow Rate 12/08/24 08:19 98 Trilogy 12/08/24 08:00 98.8 F 84 12 107/69 L 99 BiPAP 12/08/24 07:28 Trilogy 6 12/08/24 07:00 91 H 18 102/69 L 91 L Trilogy 6 12/08/24 06:35 Trilogy 6 12/08/24 06:19 86 12/08/24 06:19 87 12/08/24 06:00 79 18 89/45 L 93 L Room Air, Trach Collar/Tube 12/08/24 05:00 81 20 82/42 L 92 L Trach Collar/Tube 12/08/24 04:58 Trilogy 6 12/08/24 04:00 98.4 F 84 12 80/43 L 90 L Trach Collar/Tube 12/08/24 04:00 83 12/08/24 03:45 Trilogy 6 12/08/24 03:00 81 13 97/60 L 90 L Trach Collar/Tube 12/08/24 03:00 Trilogy 6 12/08/24 02:00 78 14 80/41 L 94 L Trach Collar/Tube 12/08/24 01:00 80 18 103/60 L 96 Trach Collar/Tube 12/08/24 00:49 Trilogy 6 12/08/24 00:00 87 12/08/24 00:00 98.8 F 90 18 116/73 97 Trach Collar/Tube 12/08/24 00:00 Trilogy 6 12/07/24 23:32 91 H 12/07/24 23:32 93 H 12/07/24 23:00 75 12 90/50 L 96 Trach Collar/Tube 12/07/24 22:46 Trilogy 6 12/07/24 22:00 78 20 86/55 L 92 L Trach Collar/Tube 12/07/24 21:00 Trilogy 6 12/07/24 21:00 60 13 90/53 L 94 L Trach Collar/Tube 12/07/24 20:00 Trilogy 6 12/07/24 20:00 99 H 12/07/24 20:00 97.9 F 93 H 19 134/77 95 Trach Collar/Tube 12/07/24 19:10 Nasal Cannula 6 12/07/24 19:09 90 12/07/24 19:09 91 H 12/07/24 19:00 91 H 23 135/84 85 L Trilogy 6 12/07/24 19:00 Trilogy 6 12/07/24 18:00 92 H 22 141/81 H 95 Trilogy 6 12/07/24 17:00 73 12 113/64 91 L Trilogy 6 12/07/24 17:00 Trilogy 6 12/07/24 16:00 80 12/07/24 16:00 97.8 F 76 15 114/83 96 Trilogy 6 12/07/24 16:00 93 L Trilogy 6 12/07/24 15:00 85 17 135/81 91 L Trilogy 6 12/07/24 15:00 Trilogy 6 12/07/24 14:00 78 16 122/73 92 L Trilogy 6 12/07/24 13:08 88 11 L 91/51 L 90 L Trilogy 6 12/07/24 13:00 Trilogy 6 12/07/24 12:00 95 H 12/07/24 12:00 98.3 F 99 H 17 129/82 94 L BiPAP 12/07/24 12:00 90 L Trilogy 6 12/07/24 11:05 93 H 12/07/24 11:05 92 H 12/07/24 11:05 94 L Trilogy 6 12/07/24 11:00 Trilogy 6 12/07/24 10:00 91 H 11 L 118/62 94 L 12/07/24 09:00 98 H 21 120/79 93 L 12/07/24 09:00 Trilogy 6 12/07/24 08:41 94 L Trilogy 6 12/07/24 08:29 98.6 F 97 H 14 133/84 94 L BiPAP Intake and Output 12/07/24 12/08/24 12/08/24 23:59 07:59 15:59 Intake Total 365.75 / 2539.583 1000 / 1305 305 / 1305 Output Total 2150 / 6150 1000 / 1000 Balance -1784.25 / -3610.417 0 / 305 305 / 305 Intake: Intake, Oral Amount 360 / 1894 500 / 800 300 / 800 Intake, Other Amount 5 / 5 Intake, Total IV Amount 5.75 / 645.583 500 / 500 Vancomycin HCl 2,500 mg In 0.9 500 / 500 % Sodium Chloride 500 ml @ 250 mls/hr IV Q18H [facility] Rx#:[id number] Output: Output, Urine Amount 1150 / 3250 1000 / 1000 Output, Urine Amount (Catheter) 1000 / 2900 Kumar 1000 / 2900 Other: Intake, Other Source Saline Solution Number of Unmeasured Voids 0 0 0 Weight 187.4 kg Patient Weight 12/08/24 23:59 Weight 187.4 kg Laboratory Results - last 24 hr 12/07/24 07:35: Sodium 135 L, Potassium 4.8, Chloride 95 L, Carbon Dioxide 31 H, Anion Gap 13.8, BUN 26 H, Creatinine 1.20 H, Estimated Creat Clear 44, Estimated GFR 48 L, Est GFR ( Amer) 58 L, Glucose 129 H, Calcium 8.7, Total Bilirubin 0.4, AST 22 D, ALT 13, Alkaline Phosphatase 80, Troponin I 0.02, Total Protein 6.8, Albumin 3.8 D, Globulin 3.0, Albumin/Globulin Ratio 1.3, Procalcitonin 0.706 12/07/24 10:08: Specimen Source Right radial, O2 % 6lpm bled in, ABG pH 7.18 L*, ABG pCO2 79.3 H, ABG pO2 76.5 L, ABG HCO3 28.8 H, ABG Total CO2 31.2 H, ABG O2 Saturation 95, ABG Base Excess 0.4, Vaughn Test Acceptable, Vent Rate 12, Tidal Volume 450 12/07/24 14:35: Sodium 134 L, Potassium 4.8, Chloride 95 L, Carbon Dioxide 33 H, Anion Gap 10.8, BUN 28 H, Creatinine 1.40 H, Estimated Creat Clear 38, Estimated GFR 40 L, Est GFR ( Amer) 48 L, Glucose 151 H, Calcium 8.6 12/07/24 17:00: Specimen Source rr, ABG pH 7.26 L, ABG pCO2 72.6 H, ABG pO2 64.1 L, ABG HCO3 32.0 H, ABG Total CO2 34.2 H, ABG O2 Saturation 92, ABG Base Excess 5.0 H, Vaughn Test y I & O for Labs for Last 24 Hours: Intake & Output 12/05/24 12/06/24 12/07/24 12/08/24 23:59 23:59 23:59 23:59 Intake Total 1539.583 / 2539.583 1305 / 1305 Output Total 5850 / 6150 1000 / 1000 Balance -4310.417 / -3610.417 305 / 305 Weight 145.15 kg 186.4 kg 187.4 kg Microbiology Reports for the Last 24 Hours: Microbiology 12/07/24 00:40 Blood Blood Culture - Preliminary NO GROWTH AFTER 24 HOURS 12/07/24 00:40 Blood Blood Culture - Preliminary NO GROWTH AFTER 24 HOURS Constitutional: Present mild distress, morbidly obese, chronically ill appearing and cooperative Head: Present atraumatic ENT: Present normal exam Comment:: Cushingoid face Comment:: Prominent neck, tracheostomy in place. No significant drainage or leakage around trach. Respiratory: Present distant breath sounds, diminished air movement and normal respiratory effort; Absent rhonchi, wheezes or crackles Cardiac: Present Reg Rate and Rhythm GI: Present soft and normal bowel sounds; Absent distention or tenderness Comments:: Near resolution of erythema of abdomen. Does have some crusty discharge from her umbilicus. Nontender. Pitting edema of abdominal wall/pannus Extremities: Present normal inspection, full ROM and edema (2+ in lower extremities to knees) Skin: Present intact, erythema and wounds Comment:: Crusting umbilicus as above. Neuro: Present Grossly Intact, alert, awake, oriented x 3 and moves all extremities Assessment and Plan *Assessment and plan (1) Acute and chronic respiratory failure with hypercapnia: Status: Inactive Category: Medical Code(s): J96.22 - Acute and chronic respiratory failure with hypercapnia (2) Abdominal wall cellulitis: Status: Resolved Category: Medical Code(s): L03.311 - Cellulitis of abdominal wall (3) (HFpEF) heart failure with preserved ejection fraction: Status: Acute Category: Medical Code(s): I50.30 - Unspecified diastolic (congestive) heart failure (4) Edema, peripheral: Status: Resolved Category: Medical Code(s): R60.0 - Localized edema (5) Tracheostomy in place: Status: Acute Category: Medical Code(s): Z93.0 - Tracheostomy status (6) Obesity hypoventilation syndrome: Status: Chronic Category: Medical Code(s): E66.2 - Morbid (severe) obesity with alveolar hypoventilation (7) COPD (chronic obstructive pulmonary disease): Status: Acute Qualifiers: COPD type: COPD with acute exacerbation Qualified Code(s): J44.1 - Chronic obstructive pulmonary disease with (acute) exacerbation Category: Medical Code(s): J44.9 - Chronic obstructive pulmonary disease, unspecified (8) Diastolic congestive heart failure: Status: Acute Qualifiers: Heart failure chronicity: chronic Qualified Code(s): I50.32 - Chronic diastolic (congestive) heart failure Category: Medical Code(s): I50.30 - Unspecified diastolic (congestive) heart failure (9) Uses bilevel positive airway pressure (BPAP) ventilation at home: Status: Chronic Category: Medical Code(s): Z99.89 - Dependence on other enabling machines and devices (10) MDD (major depressive disorder), recurrent episode: Status: Acute Qualifiers: Major depression episode severity: severe Psychotic features: with psychotic features Qualified Code(s): F33.3 - Major depressive disorder, recurrent, severe with psychotic symptoms Category: Medical Code(s): F33.9 - Major depressive disorder, recurrent, unspecified (11) Diabetes mellitus, type 2: Status: Deleted Qualifiers: Diabetes mellitus complication detail: with unspecified neuropathy Diabetes mellitus complication status: with neurologic complications Diabetes mellitus superintendent marine [employer] insulin use: without superintendent marine oil terminal use Qualified Code(s): E11.40 - Type 2 diabetes mellitus with diabetic neuropathy, unspecified Category: Medical Code(s): E11.9 - Type 2 diabetes mellitus without complications (12) Obesity, morbid: Status: Inactive Category: Medical Code(s): E66.01 - Morbid (severe) obesity due to excess calories (13) History of smoking 30 or more pack years: Status: Chronic Category: Social Hx Code(s): Z87.891 - Personal history of nicotine dependence Plan Morbidly obese 49-year-old female with a PMHx of chronic hypoventilation syndrome, respiratory failure post COVID, trach dependance, on home oxygen 3L, MDD, migraine, hypothyroidism, anxiety disorder, HFpEF, chronic bilateral lymphedema and a former smoker. Presented with falls, worsening confusion. Found to have acute on chronic hypercapnic respiratory failure. Patient also appears to be volume overloaded with weight gain since last visit and significant abdominal wall edema. Erythema of abdominal wall concerning for possible cellulitis versus edema. Seeing improvement erythema. Wore trilogy/BiPAP overnight. Blood gas improving today. Continues to require ICU level care. High risk for decompensation. Prognosis guarded. Problems addressed as follows: Acute on chronic hypercapnic respiratory failure Tracheostomy dependance. obesity hypoventilation syndrome - Repeat blood gas this morning with ABG showing pH 7.4, BJJ390, PO250. Significant improvement from initial pH of 7.16. Continue trilogy/BiPAP at night or during naps. -Placed on trach collar at 35% with goal sats greater 90%. -Continue DuoNeb q6 hours scheduled -Patient encouraged to leave trach collar in place. Fidgets with her tracheostomy regularly. Does not have significant discharge from tracheostomy - Good response to diuresis, -4 L yesterday. Kidney function stable. Resuming Bumex drip today at 0.5 mg/h. -White count normal at 9, hemoglobin 11. Repeat CBC, CMP, magnesium ordered for the morning. - Continue trach care per nursing - Pulmonology consulted to assist with care. - Sputum and blood cultures cultures pending - Electrolyte protocol ordered, replace potassium and magnesium as needed. Potassium normal at 3.9, magnesium 2.1. Kidney function normal with BUN 36, creatinine 1.3. Cellulitis/panniculitis of the abdominal wall versus edema Continue vancomycin and ceftriaxone 2 g once daily ceftriaxone. Seeing improvement in redness with antibiotics and diuresis -Cleaning umbilicus today, will obtain culture given discharge Chronic stable conditions:: Headache/history of migraines: Ubrelvy 100 ordered as needed daily, Tylenol and morphine as needed for pain management. Holding home sumatriptan MDD with anxierty: Continue diazepam 5 mg as needed daily, caution with polypharmacy and monitor for toxicity in conjunction with her pain regimen including opiates and GABAnergics Hypothyroid: Continue levothyroxine 25 mcg daily Prediabetes: last a1c 6.2, monitor glucose before meal, sliding scale insulin as needed Morbidly obese. Complicates all aspects of her care. High risk for readmission. Currently applied for Medicaid waiver for help at home. No interest in going to rehab. Does not qualify for home health due to her insurance. Has been on Ozempic previously. Requesting to raise appetite for improved weight loss benefit. Drastically needs weight loss as it complicates all of her underlying health conditions. Diabetic diet Xarelto nightly Full code ICU/Critical care attestation This patient is critically ill with 35 minutes devoted solely to this patient managing life/organ supporting interventions that required physician assessment. This includes time spent making adjustments in ventilator settings, IV fluid administration, titration of pressors, adjustments of medications, discussion of patient with consultants and other care providers as well as updating patient and/or family (if patient by virtue of his/her condition is unable to participate in decision making). This does not include time spent performing separately billed procedures. Time is not concurrent with that of other providers.
[2024-12-08 08:30] LABS: Hematocrit 38.0 % (37.0-47.0); Hemoglobin 11.1 g/dL (12.2-16.2); Immature Granulocytes % 0.8 %; Mean Corpuscular HGB Conc 29.2 g/dL (31.8-35.4); Mean Corpuscular Hemoglobin 26.6 pg (27.0-31.2); Mean Corpuscular Volume 91.1 fl (81-99); Nucleated Red Blood Cells % 0 %; Platelet Count 143 K/mm3 (142-424); Red Blood Count 4.17 M/mm3 (4.20-5.40); Red Cell Distribution Width-SD 53.3 fL; White Blood Count 9.0 K/mm3 (4.8-10.8)
[2024-12-08 08:32] LABS: Alanine Aminotransferase 13 U/L (12-78); Albumin Level 3.7 g/dl (3.5-5.0); Albumin/Globulin Ratio 1.2 (1.1-1.8); Alkaline Phosphatase 70 U/L (38-126); Anion Gap 12.9 mEq/L (5-15); Aspartate Amino Transferase 18 U/L (14-36); Bilirubin,Total 0.2 mg/dl (0.2-1.3); Blood Urea Nitrogen 36 mg/dl (7-17); Calcium 8.3 mg/dl (8.4-10.2); Carbon Dioxide 32 mmol/L (22.0-30.0); Chloride 96 mmol/L (98-107); Creatinine Clearance Estimated 39 mL/min (50-200); Creatinine,Serum 1.30 mg/dl (0.52-1.04); Estimated Glomerular Filt Rate 43 ml/min (>60); GFR (African American) 52 ML/MIN (>60); Globulin 3.0 g/dL (1.3-3.2); Glucose 115 mg/dl (74-100); Magnesium 2.1 mg/dl (1.6-2.3); Potassium 3.9 mmoL/L (3.5-5.1); Sodium 137 mmol/L (136-145); Total Protein,Serum 6.7 g/dl (6.3-8.2)
[2024-12-08 08:58] LABS: ABG HCO3 31.1 mmhg (22.0-26.0); ABG PH 7.40 mmol/L (7.35-7.45); ABG PO2 50.8 mmhg (80-100); ABG TCO2 32.7 mmhg (23-27)
[2024-12-08 09:00] LABS: Source Left Radial
[2024-12-08 09:01] LABS: ABG PCO2 51.9 mmhg (35.0-45.0)
[2024-12-08] MEDS: MUPIROCIN 2% OINTMENT 22GM TUBE TP ×3 (09:17→20:47)
[2024-12-08] MEDS: VANCOMYCIN HCL 2,500 MG in 0.9 % SODIUM CHLORIDE 500 ML 250 MG IV (13:03)
[2024-12-08 16:21] LABS: Anion Gap 12.7 mEq/L (5-15); Blood Urea Nitrogen 36 mg/dl (7-17); Calcium 7.9 mg/dl (8.4-10.2); Carbon Dioxide 33 mmol/L (22.0-30.0); Chloride 97 mmol/L (98-107); Creatinine Clearance Estimated 46 mL/min (50-200); Creatinine,Serum 1.10 mg/dl (0.52-1.04); Estimated Glomerular Filt Rate 53 ml/min (>60); GFR (African American) 64 ML/MIN (>60); Glucose 194 mg/dl (74-100); Potassium 4.7 mmoL/L (3.5-5.1); Sodium 138 mmol/L (136-145)
[2024-12-08] MEDS: BUMETANIDE 10 MG in 0.9 % SODIUM CHLORIDE 60 ML 5 MG IV (18:09)
[2024-12-08] MEDS: QUETIAPINE 100MG TABLET 200 MG PO (20:46)
[2024-12-09] VITALS (10 sets, daily range): BP systolic 100–144; BP diastolic 58–89; PULSE 86–100; RESP 13–20; TEMP 36.6–37.4; O2SAT 91–97; BMI 74.9
--- NOTE | 2024-12-09 05:42 | CA_ITS ---
APPROVED REPORT EXAM: Limited 2D Echocardiogram with contrast Interventional Neuroradiologist: Colleen Boggs RVT Ht: 5 ft 2 in Wt: 410lbs BSA: 2.59 BP: 131/35 mmHg Indications: Shortness of Breath TDS-Limited exam Echo Enhancing Agent Indication: Endocardial border delineation Agent(s) / Amount(s) Used: Definity 2 cc LV Diastology E Decel Time 233 (160-240 msec) E/A Ratio 1.0 Mitral Valve MV E Max Tonny. 82.0 (40-130 cm/s) MV A Velocity 79.0 (40-130 cm/s) E/A Ratio 1.04 MV PHT 68.0 ms Left Ventricle The left ventricle is normal size. The left ventricular systolic function is normal. The left ventricular ejection fraction is within the normal range. There is normal left ventricular wall thickness. There is normal LV segmental wall motion. The left ventricular diastolic function is normal. LVEF is 60%. Right Ventricle The right ventricle is normal size. The right ventricular systolic function is normal. Atria The left atrium size is normal. The right atrium size is normal. There is no Doppler evidence of interatrial shunt. Aortic Valve Aortic valve leaflets are not well-visualized. There is no aortic valvular stenosis. No aortic regurgitation is present. Mitral Valve The mitral valve is normal in structure. No evidence of mitral valve stenosis. The mitral valve leaflets are not well-visualized. Tricuspid Valve The tricuspid valve leaflets are not well-visualized. Trace tricuspid regurgitation. There is insufficient TR jet to estimate RVSP. Pulmonic Valve The pulmonic valve is not well-visualized. Great Vessels The aortic root is not well-visualized. The IVC is not well-visualized. Pericardium There is no pericardial effusion. Other Information Study Quality: Technically Difficult Conclusion Technically difficult study due to poor acoustic windows. Normal biventricular systolic function. No regional wall motion abnormalities. The valve leaflets are not well-visualized, but grossly no significant valvular stenosis or regurgitation. Electronically signed by : Melissa Jackson MD 12/09/2024 11:48:19
[2024-12-09] MEDS: FLUTICASONE/UMECLIDIN/VILANTER 100/62.5/25MCG INHALER 1 PUFF IH (06:38)
[2024-12-09] MEDS: IPRATROPIUM/ALBUTEROL 3 ML NEB IH ×2 (06:38→11:22)
--- NOTE | 2024-12-09 07:07 | PC.NURSE ---
echo at bedside.
[2024-12-09 07:27] LABS: Hematocrit 38.8 % (37.0-47.0); Hemoglobin 11.3 g/dL (12.2-16.2); Immature Granulocytes % 1.0 %; Mean Corpuscular HGB Conc 29.1 g/dL (31.8-35.4); Mean Corpuscular Hemoglobin 26.7 pg (27.0-31.2); Mean Corpuscular Volume 91.7 fl (81-99); Nucleated Red Blood Cells % 0 %; Platelet Count 141 K/mm3 (142-424); Red Blood Count 4.23 M/mm3 (4.20-5.40); Red Cell Distribution Width-SD 53.5 fL; White Blood Count 7.1 K/mm3 (4.8-10.8)
[2024-12-09 07:39] LABS: Alanine Aminotransferase 13 U/L (12-78); Albumin Level 3.9 g/dl (3.5-5.0); Albumin/Globulin Ratio 1.3 (1.1-1.8); Alkaline Phosphatase 62 U/L (38-126); Aspartate Amino Transferase 15 U/L (14-36); Blood Urea Nitrogen 34 mg/dl (7-17); Calcium 8.3 mg/dl (8.4-10.2); Chloride 93 mmol/L (98-107); Creatinine Clearance Estimated 46 mL/min (50-200); Creatinine,Serum 1.10 mg/dl (0.52-1.04); Estimated Glomerular Filt Rate 53 ml/min (>60); GFR (African American) 64 ML/MIN (>60); Globulin 3.1 g/dL (1.3-3.2); Glucose 84 mg/dl (74-100); Potassium 4.1 mmoL/L (3.5-5.1); Sodium 144 mmol/L (136-145); Total Protein,Serum 7.0 g/dl (6.3-8.2)
[2024-12-09] MEDS: PHA TO NURSING INSTRUCTION 1 EACH NOTAPPLIC (08:00)
[2024-12-09 08:06] LABS: Anion Gap 13.1 mEq/L (5-15); Bilirubin,Total 0.1 mg/dl (0.2-1.3); Carbon Dioxide 42 mmol/L (22.0-30.0)
[2024-12-09] MEDS: DEFINITY US ECHO CONTRAST 2ML INJ 2 MG IV (08:16)
[2024-12-09 08:27] LABS: Vancomycin,Trough 19.4 ug/mL (5.0-10.0)
--- NOTE | 2024-12-09 08:54 | EXP.PHA.CONS ---
Pharmacy Consult Date: 12/09/24 Time: 08:54 Referring provider: DR. SAWANT Reason for Consult:: VANCOMYCIN DOSE CHANGE Allergies Allergy/AdvReac Type Severity Reaction Status Date / Time doxycycline Allergy Severe Blister Verified 12/04/24 11:42 clindamycin Allergy Blister Verified 12/04/24 11:42 Sulfa (Sulfonamide AdvReac Intermediate Rash Verified 12/04/24 11:42 Antibiotics) amoxicillin AdvReac Other Verified 12/04/24 11:42 morphine AdvReac Headache Verified 12/04/24 11:42 nitrofurantoin (From AdvReac Other Verified 12/04/24 11:42 Macrobid) Home Medications ?Medication ?Instructions ?Recorded ?Confirmed ?Type losartan 25 mg tablet 25 mg PO DAILY #30 tabs 05/15/24 12/07/24 Rx propranolol 10 mg tablet 10 mg PO BID #60 tabs 05/15/24 12/07/24 Rx fluticasone fur. 100 mcg-umeclid 1 inh inhalation DAILY 90 days #90 07/22/24 12/07/24 Rx 62.5 mcg-vilant 25 mcg blisters inhalat.powder (Trelegy Ellipta) rivaroxaban 10 mg tablet (Xarelto) 10 mg PO DAILY #10 tabs 07/26/24 12/07/24 Rx cyclobenzaprine 5 mg tablet 5 mg PO TID 08/12/24 12/07/24 History linaclotide 145 mcg capsule 145 mcg PO DAILY #90 caps 08/13/24 12/07/24 Rx (Linzess) ziprasidone HCl 40 mg capsule 40 mg PO BID #60 caps 09/06/24 12/07/24 Rx (Geodon) duloxetine 30 mg capsule,delayed 90 mg (3 x 30 mg) PO DAILY #180 09/11/24 12/07/24 Rx release caps levothyroxine 25 mcg tablet 25 mcg PO 0700 #90 tabs 09/11/24 12/07/24 Rx rimegepant 75 mg disintegrating 75 mg PO Q48H #40 tabs 09/11/24 12/07/24 Rx tablet (Nurtec ODT) torsemide 100 mg tablet 100 mg PO DAILY #90 tabs 09/11/24 12/07/24 Rx lamotrigine 100 mg tablet 100 mg PO DAILY #30 tabs 10/10/24 12/07/24 Rx gabapentin 600 mg tablet 600 mg PO TID #90 tabs 11/08/24 12/07/24 Rx tirzepatide (weight loss) 2.5 2.5 mg (0.5 mL) SQ WEEKLY sleep 11/11/24 12/07/24 Rx mg/0.5 mL subcutaneous pen apnea, morbid obesity #2 mL injector (Zepbound) oxycodone-acetaminophen 10 mg-325 1 tab PO QIDP PRN Mild Pain (Scale 11/13/24 12/07/24 Rx mg tablet Score 1-4) #120 tabs fluticasone propionate 50 1 spray intranasal DAILY #16 grams 11/14/24 12/07/24 Rx mcg/actuation nasal spray,suspension (Flonase Allergy Relief) spironolactone 50 mg tablet 50 mg PO DAILY 90 days #90 tabs 11/14/24 12/07/24 Rx (Aldactone) levofloxacin 750 mg tablet 750 mg PO DAILY 7 days #7 tabs 12/04/24 12/04/24 Rx omeprazole 40 mg capsule,delayed 40 mg PO BID 12/04/24 12/07/24 History release albuterol sulfate 90 mcg/actuation 2 inh inhalation Q6HP PRN 12/07/24 12/07/24 History aerosol inhaler (Ventolin HFA) shortness of breath or wheezing diazepam 5 mg tablet 5 mg PO BIDP PRN anxiety 12/07/24 12/07/24 History ondansetron 4 mg disintegrating 4 mg PO Q6HP PRN Nausea And 12/07/24 12/07/24 History tablet Vomiting promethazine 25 mg tablet 25 mg PO TIDP PRN Nausea And 12/07/24 12/07/24 History Vomiting quetiapine 100 mg tablet 200 mg PO HS 12/07/24 12/07/24 History sumatriptan succinate 100 mg tablet 100 mg PO DAILYP PRN Migraine 12/07/24 12/07/24 History Headache New Prescriptions to Start Prescriptions: Height: 1.57 m Weight: 184.8 kg Laboratory Results:: Laboratory Results - last 24 hr 12/08/24 08:39: Specimen Source Left radial, ABG pH 7.40, ABG pCO2 51.9 H, ABG pO2 50.8 L, ABG HCO3 31.1 H, ABG Total CO2 32.7 H, ABG O2 Saturation 87 L*, ABG Base Excess 6.2 H, Vaughn Test Acceptable 12/08/24 16:05: Sodium 138, Potassium 4.7 D, Chloride 97 L, Carbon Dioxide 33 H, Anion Gap 12.7, BUN 36 H, Creatinine 1.10 H, Estimated Creat Clear 46, Estimated GFR 53 L, Est GFR ( Amer) 64 D, Glucose 194 H D, Calcium 7.9 L 12/09/24 06:23: WBC 7.1, RBC 4.23, Hgb 11.3 L, Hct 38.8, MCV 91.7, MCH 26.7 L, MCHC 29.1 L, RDW 16.1, Plt Count 141 L, MPV 10.4, Neut % (Auto) 72.6, Lymph % (Auto) 17.5, [place] % (Auto) 8.7, Eos % (Auto) 0.1, Baso % (Auto) 0.1, Neut # (Auto) 5.2, Lymph # (Auto) 1.3, [place] # (Auto) 0.6, Eos # (Auto) 0.0, Baso # (Auto) 0.0, Sodium 144, Potassium 4.1, Chloride 93 L, Carbon Dioxide 42 H*, Anion Gap 13.1, BUN 34 H, Creatinine 1.10 H, Estimated Creat Clear 46, Estimated GFR 53 L, Est GFR ( Amer) 64, Glucose 84 D, Calcium 8.3 L, Total Bilirubin 0.1 L, AST 15, ALT 13, Alkaline Phosphatase 62, Total Protein 7.0, Albumin 3.9, Globulin 3.1, Albumin/Globulin Ratio 1.3, Vancomycin Trough 19.4 H Medical History: Medical History (Updated 12/07/24 @ 02:39 by Leopoldo Titus MD) Tracheostomy tube present Low O2 saturation Cough Dermatitis Skin lesion Multiple substance abuse Degenerative disc disease, thoracic Acute exacerbation of chronic obstructive pulmonary disease Nausea and vomiting Abdominal pain Acute and chronic respiratory failure Obesity, morbid Deliberate self-cutting Otitis externa of left ear Dysphagia Hearing difficulty of left ear Otalgia, left ear Asthma Acute on chronic respiratory failure with hypoxia and hypercapnia Palpitations Ear pain, right Acute and chronic respiratory failure with hypercapnia PTSD (post-traumatic stress disorder) Chest pain Generalized anxiety disorder Recurrent major depression resistant to treatment Sleep apnea History of ectopic History of hyperkalemia Diastolic congestive heart failure Paranoid schizophrenia Uses bilevel positive airway pressure (BPAP) ventilation at home History of sleep apnea History of asthma Cellulitis of right lower extremity Acute and chronic respiratory failure with hypercapnia Pneumonia Acute and chronic respiratory failure Right lower lobe pneumonia History of smoking 30 or more pack years Obesity hypoventilation syndrome Chronic respiratory failure with hypercapnia Severe sepsis COVID-19 Acute and chronic respiratory failure Pneumonia Tracheostomy in place Edema Sinus tachycardia Dizziness Diastolic dysfunction Acute on chronic diastolic heart failure Respiratory failure with hypoxia and hypercapnia Congestive heart failure Acute on chronic diastolic heart failure Elevated d-dimer PAC (premature atrial contraction) Chest pain Dyspnea HTN (hypertension) COPD (chronic obstructive pulmonary disease) Tobacco abuse Abnormal stress test SOB (shortness of breath) Angina, class III Obesity Hypothyroidism (~11/21/17) Asthma Insomnia Depression Anxiety Neuropathy Assessment and Plan Assessment and plan all Dx Assessment and Plan for all problems:: PATIENT'S VANCOMYCIN TROUGH LEVEL WAS 19.4 MCG/ML. RECOMMEND CHANGING TO VANCOMYCIN 2500 MG Q24H AT THIS TIME. HOLD NEXT DOSE UNTIL 1300 TODAY.
[2024-12-09] MEDS: ZIPRASIDONE 20MG CAPSULE 40 MG PO (09:00)
[2024-12-09] MEDS: IRBESARTAN 75MG TABLET 37.5 MG PO (09:00)
[2024-12-09] MEDS: PROPRANOLOL 20MG TAB 10 MG PO (09:00)
[2024-12-09] MEDS: CYCLOBENZAPRINE 10MG TABLET 5 MG PO ×2 (09:00→12:20)
[2024-12-09] MEDS: SPIRONOLACTONE 25MG TABLET 50 MG PO (09:01)
[2024-12-09] MEDS: LEVOTHYROXINE 25MCG (0.025MG) TAB 25 MCG PO (09:01)
[2024-12-09] MEDS: GABAPENTIN 600MG TABLET 600 MG PO ×2 (09:01→12:23)
[2024-12-09] MEDS: PANTOPRAZOLE 40MG TABLET 40 MG PO (09:01)
[2024-12-09] MEDS: MUPIROCIN 2% OINTMENT 22GM TUBE TP ×2 (09:01→12:28)
--- NOTE | 2024-12-09 09:08 | PC.NURSE ---
bumex drip stopped per Dr. Ornelas at this time.
[2024-12-09] MEDS: METHYLPREDNISOLONE SOD SUCC 40MG VIAL 40 MG IV (09:16)
--- NOTE | 2024-12-09 09:30 | PC.NURSE ---
pt pulled up in bed and readjusted.
--- NOTE | 2024-12-09 09:33 | EXP.PULM.CON ---
History of Present Illness History of present illness: Ms. Badillo is a 49-year-old female history of asthma, obesity hypoventilation syndrome status post tracheostomy on trilogy NIV at home presented to the ER with worsening respiratory distress confusion on found to have hypercarbic respiratory failure and pulmonary was called for further evaluation and management. [facility] Disclaimer: The information contained in this section may have been updated after the patient was seen, as this information can be updated by other users. Medical History Tracheostomy tube present Low O2 saturation Cough Dermatitis Skin lesion Multiple substance abuse Degenerative disc disease, thoracic Acute exacerbation of chronic obstructive pulmonary disease Nausea and vomiting Abdominal pain Acute and chronic respiratory failure Obesity, morbid Deliberate self-cutting Otitis externa of left ear Dysphagia Hearing difficulty of left ear Otalgia, left ear Asthma Acute on chronic respiratory failure with hypoxia and hypercapnia Palpitations Ear pain, right Acute and chronic respiratory failure with hypercapnia PTSD (post-traumatic stress disorder) Chest pain Generalized anxiety disorder Recurrent major depression resistant to treatment Sleep apnea History of ectopic History of hyperkalemia Diastolic congestive heart failure Paranoid schizophrenia Uses bilevel positive airway pressure (BPAP) ventilation at home History of sleep apnea History of asthma Cellulitis of right lower extremity Acute and chronic respiratory failure with hypercapnia Pneumonia Acute and chronic respiratory failure Right lower lobe pneumonia History of smoking 30 or more pack years Obesity hypoventilation syndrome Chronic respiratory failure with hypercapnia Severe sepsis COVID-19 Acute and chronic respiratory failure Pneumonia Tracheostomy in place Edema Sinus tachycardia Dizziness Diastolic dysfunction Acute on chronic diastolic heart failure Respiratory failure with hypoxia and hypercapnia Congestive heart failure Acute on chronic diastolic heart failure Elevated d-dimer PAC (premature atrial contraction) Chest pain Dyspnea HTN (hypertension) COPD (chronic obstructive pulmonary disease) Tobacco abuse Abnormal stress test SOB (shortness of breath) Angina, class III Obesity Hypothyroidism (~11/21/17) Asthma Insomnia Depression Anxiety Neuropathy Surgical History History of tracheostomy History of appendectomy History of cholecystectomy History of colonoscopy History of left knee surgery History of hysterectomy Family History Other No significant family history Social History (Updated 12/07/24 @ 03:54 by Marina Hutson RN) Smoking Status: Current every day smoker tobacco type: cigarettes packs per day: 1 smoking status stop date: 02/2022 alcohol intake: former substance use type: marijuana current occupational status: disabled Travel in the last 8 weeks?: None household members: family housing: apartment number of children: 0 current occupational exposures/hazards: No caffeine: Yes Have you lived/traveled outside [place] in past 30 days?: No Contact w/someone who lives/traveled outside [place] past 30 days?: No Exposure to someone with infectious disease in past 14 days?: No Do you have a fever (greater than 100.4 F or 38 C)?: Yes Have you tested positive for COVID-19?: No Exposed to someone with COVID-19 in past 14 days?: No Do you have a sore throat?: No Do you have a cough?: Yes Do you have any weakness?: Yes Are you experiencing any nausea/vomitting?: No Do you have any diarrhea?: No Are you experiencing any unusual bleeding?: No Do you have any muscle aches/pain?: No Do you have any abdominal pain?: No Are you experiencing loss of taste or smell?: No Review of Systems Constitutional Constitutional: Reports anorexia, Denies body ache(s), Denies fatigue and Reports weight gain Eyes Eyes: Denies eye discharge, Denies dry eyes, Denies irritation and Denies itchy eyes ENT Ears, Nose, Mouth, and Throat: Denies epistaxis, Denies facial pain, Denies lip swelling and Denies throat swelling *Cardiovascular Cardiovascular: Reports dyspnea, Reports dyspnea on exertion, Reports leg edema and Reports orthopnea *Respiratory Respiratory: Denies change in phlegm color, Reports chest congestion, Reports cough, Reports dyspnea, Reports dyspnea on exertion, Denies excessive phlegm production, Denies hemoptysis, Denies pain on inspiration, Denies pain with cough and Denies wheezing *Gastrointestinal Gastrointestinal: Denies abdominal pain, Denies belching and Denies cramping *Musculoskeletal Musculoskeletal: Reports back pain, Reports myalgias and Reports other (No small joint swelling or Pain) Comments: Leg Pain Lt LE Psychiatric Psychiatric: Denies homicidal ideation and Denies suicidal ideation Endocrine Endocrine: Denies fatigue and Denies heat intolerance Hematologic/Lymphatic Hematologic/Lymphatic: Denies easy bleeding and Denies lymphadenopathy Allergic/Immunologic Allergic/Immunologic: Denies itchy eyes, Denies lip swelling, Denies throat swelling and Denies wheezing Pulmonology Exam Inpatient Vital signs and Labs for Last 24 Hours: Temp Pulse Resp BP Pulse Ox O2 Del Method O2 Flow Rate 98.2 F 93 H 15 134/87 94 L Trach Collar/Tube 8 12/09/24 08:00 12/09/24 08:00 12/09/24 08:00 12/09/24 08:00 12/09/24 08:00 12/09/24 08:00 12/09/24 06:47 FiO2 35 12/09/24 06:47 Laboratory Results - last 24 hr 12/08/24 16:05: Sodium 138, Potassium 4.7 D, Chloride 97 L, Carbon Dioxide 33 H, Anion Gap 12.7, BUN 36 H, Creatinine 1.10 H, Estimated Creat Clear 46, Estimated GFR 53 L, Est GFR ( Amer) 64 D, Glucose 194 H D, Calcium 7.9 L 12/09/24 06:23: WBC 7.1, RBC 4.23, Hgb 11.3 L, Hct 38.8, MCV 91.7, MCH 26.7 L, MCHC 29.1 L, RDW 16.1, Plt Count 141 L, MPV 10.4, Neut % (Auto) 72.6, Lymph % (Auto) 17.5, [place] % (Auto) 8.7, Eos % (Auto) 0.1, Baso % (Auto) 0.1, Neut # (Auto) 5.2, Lymph # (Auto) 1.3, [place] # (Auto) 0.6, Eos # (Auto) 0.0, Baso # (Auto) 0.0, Sodium 144, Potassium 4.1, Chloride 93 L, Carbon Dioxide 42 H*, Anion Gap 13.1, BUN 34 H, Creatinine 1.10 H, Estimated Creat Clear 46, Estimated GFR 53 L, Est GFR ( Amer) 64, Glucose 84 D, Calcium 8.3 L, Total Bilirubin 0.1 L, AST 15, ALT 13, Alkaline Phosphatase 62, Total Protein 7.0, Albumin 3.9, Globulin 3.1, Albumin/Globulin Ratio 1.3, Vancomycin Trough 19.4 H I & O for Labs for Last 24 Hours: Intake & Output 12/06/24 12/07/24 12/08/24 12/09/24 23:59 23:59 23:59 23:59 Intake Total 1539.583 / 2539.583 2431.333 / 2651.333 535 / 535 Output Total 5850 / 6150 8250 / 8800 3650 / 3650 Balance -4310.417 / -3610.417 -5818.667 / -6148.667 -3115 / -3115 Weight 320 lb 410 lb 15.066 oz 413 lb 2.34 oz 407 lb 6.628 oz Microbiology Reports for the Last 24 Hours: Microbiology 12/07/24 19:08 Anus CRE Surveillance Culture - Final Negative 12/08/24 09:21 Abdomen Gram Stain - Final 12/08/24 09:21 Abdomen Wound Culture - Preliminary 12/07/24 00:40 Blood Blood Culture - Preliminary NO GROWTH AFTER 48 HOURS 12/07/24 00:40 Blood Blood Culture - Preliminary NO GROWTH AFTER 48 HOURS Constitutional: Present moderate distress Head: Present normocephalic and atraumatic ENT: Present normal exam, normal oropharynx and mucous membranes moist Neck: Present normal inspection and full ROM Respiratory: Present respiratory distress, distant breath sounds and able to speak in complete sentences; Absent prolonged expiratory phase, rhonchi or wheezes Cardiac: Present S1/S2, Tachycardia and radial pulses present GI: Present soft and distention; Absent tenderness or guarding Rectal (female): Present deferred (female): Present deferred Skin: Present intact; Absent cyanosis or jaundice Neuro: Present alert, awake and oriented x 3 Extremities: Present normal inspection; Absent clubbing or cyanosis Psychiatric: Present normal affect and cooperative Meds Home Medications and Allergies Home Medications ?Medication ?Instructions ?Recorded ?Confirmed ?Type losartan 25 mg tablet 25 mg PO DAILY #30 tabs 05/15/24 12/07/24 Rx propranolol 10 mg tablet 10 mg PO BID #60 tabs 05/15/24 12/07/24 Rx fluticasone fur. 100 mcg-umeclid 1 inh inhalation DAILY 90 days #90 07/22/24 12/07/24 Rx 62.5 mcg-vilant 25 mcg blisters inhalat.powder (Trelegy Ellipta) rivaroxaban 10 mg tablet (Xarelto) 10 mg PO DAILY #10 tabs 07/26/24 12/07/24 Rx cyclobenzaprine 5 mg tablet 5 mg PO TID 08/12/24 12/07/24 History linaclotide 145 mcg capsule 145 mcg PO DAILY #90 caps 08/13/24 12/07/24 Rx (Linzess) ziprasidone HCl 40 mg capsule 40 mg PO BID #60 caps 09/06/24 12/07/24 Rx (Geodon) duloxetine 30 mg capsule,delayed 90 mg (3 x 30 mg) PO DAILY #180 09/11/24 12/07/24 Rx release caps levothyroxine 25 mcg tablet 25 mcg PO 0700 #90 tabs 09/11/24 12/07/24 Rx rimegepant 75 mg disintegrating 75 mg PO Q48H #40 tabs 09/11/24 12/07/24 Rx tablet (Nurtec ODT) torsemide 100 mg tablet 100 mg PO DAILY #90 tabs 09/11/24 12/07/24 Rx lamotrigine 100 mg tablet 100 mg PO DAILY #30 tabs 10/10/24 12/07/24 Rx gabapentin 600 mg tablet 600 mg PO TID #90 tabs 11/08/24 12/07/24 Rx tirzepatide (weight loss) 2.5 2.5 mg (0.5 mL) SQ WEEKLY sleep 11/11/24 12/07/24 Rx mg/0.5 mL subcutaneous pen apnea, morbid obesity #2 mL injector (Zepbound) oxycodone-acetaminophen 10 mg-325 1 tab PO QIDP PRN Mild Pain (Scale 11/13/24 12/07/24 Rx mg tablet Score 1-4) #120 tabs fluticasone propionate 50 1 spray intranasal DAILY #16 grams 11/14/24 12/07/24 Rx mcg/actuation nasal spray,suspension (Flonase Allergy Relief) spironolactone 50 mg tablet 50 mg PO DAILY 90 days #90 tabs 11/14/24 12/07/24 Rx (Aldactone) levofloxacin 750 mg tablet 750 mg PO DAILY 7 days #7 tabs 12/04/24 12/04/24 Rx omeprazole 40 mg capsule,delayed 40 mg PO BID 12/04/24 12/07/24 History release albuterol sulfate 90 mcg/actuation 2 inh inhalation Q6HP PRN 12/07/24 12/07/24 History aerosol inhaler (Ventolin HFA) shortness of breath or wheezing diazepam 5 mg tablet 5 mg PO BIDP PRN anxiety 12/07/24 12/07/24 History ondansetron 4 mg disintegrating 4 mg PO Q6HP PRN Nausea And 12/07/24 12/07/24 History tablet Vomiting promethazine 25 mg tablet 25 mg PO TIDP PRN Nausea And 12/07/24 12/07/24 History Vomiting quetiapine 100 mg tablet 200 mg PO HS 12/07/24 12/07/24 History sumatriptan succinate 100 mg tablet 100 mg PO DAILYP PRN Migraine 12/07/24 12/07/24 History Headache New Prescriptions to Start Prescriptions: Allergies Allergy/AdvReac Type Severity Reaction Status Date / Time doxycycline Allergy Severe Blister Verified 12/04/24 11:42 clindamycin Allergy Blister Verified 12/04/24 11:42 Sulfa (Sulfonamide AdvReac Intermediate Rash Verified 12/04/24 11:42 Antibiotics) amoxicillin AdvReac Other Verified 12/04/24 11:42 morphine AdvReac Headache Verified 12/04/24 11:42 nitrofurantoin (From AdvReac Other Verified 12/04/24 11:42 Macrobid) Results Laboratory Findings 12/09/24 06:23 12/09/24 06:23 ABG ABG pH 7.40 mmol/L (7.35-7.45) 12/08/24 08:39 ABG pCO2 51.9 mmhg (35.0-45.0) H 12/08/24 08:39 ABG pO2 50.8 mmhg (80-100) L 12/08/24 08:39 ABG O2 Saturation 87 % (90-100) L* 12/08/24 08:39 Abnormal lab findings: Abnormal Labs 12/07/24 12/07/24 12/07/24 00:02 00:07 04:43 WBC RBC Hgb MCH MCHC 30.3 L Plt Count Neut % (Auto) Lymph % (Auto) Neut # (Auto) 8.0 H ABG pH 7.16 L* ABG pCO2 78.1 H ABG pO2 75.1 L ABG HCO3 27.0 H ABG Total CO2 29.4 H ABG O2 Saturation ABG Base Excess VBG pH 7.22 L VBG pCO2 76.5 H VBG pO2 61.5 H VBG HCO3 30.3 H VBG Total CO2 32.6 H VBG O2 Saturation 92.1 H VBG Base Excess 2.5 H Sodium Potassium 5.7 H Chloride 97 L Carbon Dioxide 32 H BUN 25 H Creatinine 1.10 H Estimated GFR 53 L Est GFR ( Amer) Glucose 119 H Calcium Total Bilirubin AST 45 H NT-Pro-B Natriuret Pep 1110 H Total Protein 8.6 H Globulin 4.2 H Albumin/Globulin Ratio 1.0 L Vancomycin Trough 12/07/24 12/07/24 12/07/24 07:35 10:08 14:35 WBC 15.5 H D RBC Hgb 11.8 L MCH 26.8 L MCHC 29.0 L Plt Count Neut % (Auto) 88.1 H Lymph % (Auto) 4.2 L Neut # (Auto) 13.6 H ABG pH 7.18 L* ABG pCO2 79.3 H ABG pO2 76.5 L ABG HCO3 28.8 H ABG Total CO2 31.2 H ABG O2 Saturation ABG Base Excess VBG pH VBG pCO2 VBG pO2 VBG HCO3 VBG Total CO2 VBG O2 Saturation VBG Base Excess Sodium 135 L 134 L Potassium Chloride 95 L 95 L Carbon Dioxide 31 H 33 H BUN 26 H 28 H Creatinine 1.20 H 1.40 H Estimated GFR 48 L 40 L Est GFR ( Amer) 58 L 48 L Glucose 129 H 151 H Calcium Total Bilirubin AST NT-Pro-B Natriuret Pep Total Protein Globulin Albumin/Globulin Ratio Vancomycin Trough 12/07/24 12/08/24 12/08/24 17:00 07:55 08:39 WBC RBC 4.17 L Hgb 11.1 L MCH 26.6 L MCHC 29.2 L Plt Count Neut % (Auto) Lymph % (Auto) Neut # (Auto) ABG pH 7.26 L ABG pCO2 72.6 H 51.9 H ABG pO2 64.1 L 50.8 L ABG HCO3 32.0 H 31.1 H ABG Total CO2 34.2 H 32.7 H ABG O2 Saturation 87 L* ABG Base Excess 5.0 H 6.2 H VBG pH VBG pCO2 VBG pO2 VBG HCO3 VBG Total CO2 VBG O2 Saturation VBG Base Excess Sodium Potassium Chloride 96 L Carbon Dioxide 32 H BUN 36 H D Creatinine 1.30 H Estimated GFR 43 L Est GFR ( Amer) 52 L Glucose 115 H D Calcium 8.3 L Total Bilirubin AST NT-Pro-B Natriuret Pep Total Protein Globulin Albumin/Globulin Ratio Vancomycin Trough 12/08/24 12/09/24 16:05 06:23 WBC RBC Hgb 11.3 L MCH 26.7 L MCHC 29.1 L Plt Count 141 L Neut % (Auto) Lymph % (Auto) Neut # (Auto) ABG pH ABG pCO2 ABG pO2 ABG HCO3 ABG Total CO2 ABG O2 Saturation ABG Base Excess VBG pH VBG pCO2 VBG pO2 VBG HCO3 VBG Total CO2 VBG O2 Saturation VBG Base Excess Sodium Potassium Chloride 97 L 93 L Carbon Dioxide 33 H 42 H* BUN 36 H 34 H Creatinine 1.10 H 1.10 H Estimated GFR 53 L 53 L Est GFR ( Amer) Glucose 194 H D Calcium 7.9 L 8.3 L Total Bilirubin 0.1 L AST NT-Pro-B Natriuret Pep Total Protein Globulin Albumin/Globulin Ratio Vancomycin Trough 19.4 H Assessment and Plan *Assessment and plan (1) Acute on chronic respiratory failure with hypoxia and hypercapnia: Status: Acute Category: Medical Code(s): J96.21 - Acute and chronic respiratory failure with hypoxia; J96.22 - Acute and chronic respiratory failure with hypercapnia Plan Ms. Badillo is a 49-year-old female history of asthma, obesity hypoventilation syndrome status post tracheostomy on trilogy NIV at home presented to the ER with worsening respiratory distress confusion on found to have hypercarbic respiratory failure and pulmonary was called for further evaluation and management. Chest x-ray per admission vascular congestion. No dense consolidative/airspace changes. Neutrophilic predominant leukocytosis upon admission, improving. Comprehensive respiratory viral PCR panel negative. Afebrile. Hemodynamically stable. Blood gas upon admission severe hypercarbic respiratory failure pH 7.16 and pCO2 78.1, improved to 7.40 and 51.9. Currently receiving vancomycin, ceftriaxone, nebulization therapies and steroids. Blood cultures no growth at 48 hours. Previous sputum cultures close multiple outcomes including stenotrophomonas, Pseudomonas, staph aureus, Enterobacter and Proteus. Plan: - Continue trilogy NIV while asleep and lying flat. Currently on AVAPS mode with a tidal volume of 450. Backup rate increased to 20 given worsening hypercarbic respiratory failure (previously at 12) - Obtain compliance report from [facility] -Antibiotics can be weaned to levofloxacin to complete a total of 5-day course -Trelegy 100 inhaler along with DuoNebs 4 times daily as needed -Continue oxygen supplementation via nasal cannula to maintain O2 saturation goal of 90% and above
--- NOTE | 2024-12-09 10:05 | PC.NURSE ---
pt pulled up in bed and readjusted.
--- NOTE | 2024-12-09 10:19 | PC.NURSE ---
pt weaned to 2LNC per RT and Dr. Diaz.
--- NOTE | 2024-12-09 10:37 | PC.NURSE ---
pt called out stating at this time she would like to set up a password- [id number].
--- NOTE | 2024-12-09 11:50 | PC.NURSE ---
pt up at to the chair. call light w/i reach.
--- NOTE | 2024-12-09 12:00 | PC.NURSE ---
pt called out to be suctioned at this time. family to bedside. call light w/i reach.
[2024-12-09] MEDS: VANCOMYCIN HCL 2,500 MG in 0.9 % SODIUM CHLORIDE 500 ML 250 MG IV (12:23)
[2024-12-09] MEDS: OXYCODONE 10MG W/APAP 325MG TABLET 1 EACH PO (12:28)
--- NOTE | 2024-12-09 13:37 | EXP.DC.SUM ---
General Admission date:: 12/07/24 Discharge date: 12/09/24 HPI HPI HPI: Patient is a 49-year-old female who presents to the hospital due to shortness of breath, patient has past medical history of heart failure, respiratory failure on tracheostomy, morbid obesity. At time of my evaluation patient appears confused, most of the history is from patient's chart. Patient reported in the emergency department that she has gained around 20 pounds. On further evaluation patient was found to have elevated proBNP. Patient was given 80 Lasix IV in the ED with 1600 mL urine output so far. Hospital Course Hospital Course Hospital Course: Morbidly obese 49-year-old female with a PMHx of chronic hypoventilation syndrome, respiratory failure post COVID, trach dependance, on home oxygen 3L, MDD, migraine, hypothyroidism, anxiety disorder, HFpEF, chronic bilateral lymphedema and a former smoker. Presented with falls, worsening confusion. Found to have acute on chronic hypercapnic respiratory failure. Patient also appears to be volume overloaded with weight gain since last visit and significant abdominal wall edema. Erythema of abdominal wall concerning for possible cellulitis versus edema. Saw improvement with diuresis. Improved hypercapnic failure with adjustments to trilogy noninvasive respiratory device. Given her improvement in gas to baseline, significant diuresis, clinical stability, will discharge home on oral antibiotics with plan for outpatient follow-up with pulmonology. Problems addressed as follows: Acute on chronic hypercapnic respiratory failure Tracheostomy dependance. obesity hypoventilation syndrome - Patient presented with respiratory failure with severe hypercarbic respiratory failure, pH 7.16, pCO2 78. Over 24 to 48 hours showed improvement with adjustments made to her trilogy device. Gas improved to pH of 7.4, PCO2 of 52. Was initially treated with vancomycin, ceftriaxone for cellulitis and possible respiratory infection. Blood cultures were negative at 48 hours. Previous sputum cultures have been polymicrobial with stenotrophomonas, Pseudomonas, staph, Enterobacter and Proteus.. At this time we will transition to Levaquin to complete treatment for respiratory source as well as skin source. Significant improvement in edema of abdomen and erythema with aggressive diuresis. Responded well to Bumex drip. Negative over 14 L during admission. Continue diuretics at discharge with increase in torsemide to 100 mg twice daily. Continue spironolactone. Follow-up with pulmonology as an outpatient. Continue her Trelegy 100 inhaler along with DuoNebs 4 times a day. Continue oxygen supplementation via nasal cannula to maintain sats above 90%. - Continue trilogy NIV while asleep and lying flat. Currently on AVAPS mode with a tidal volume of 450. Backup rate increased to 20 given worsening hypercarbic respiratory failure (previously at 12) Cellulitis/panniculitis of the abdominal wall versus edema Continue vancomycin and ceftriaxone 2 g once daily ceftriaxone. Seeing improvement in redness with antibiotics and diuresis. Umbilicus swabbed as it is a potential source for infections. Recommend routine cleaning with Hibiclens a few times a week to decrease bacterial burden. Chronic stable conditions:: Headache/history of migraines: Ubrelvy 100 ordered as needed daily, Tylenol and morphine as needed for pain management. Holding home sumatriptan MDD with anxierty: Continue diazepam 5 mg as needed daily, caution with polypharmacy and monitor for toxicity in conjunction with her pain regimen including opiates and GABAnergics Hypothyroid: Continue levothyroxine 25 mcg daily Prediabetes: last a1c 6.2, monitor glucose before meal, sliding scale insulin as needed Morbidly obese. Complicates all aspects of her care. High risk for readmission. Currently applied for Medicaid waiver for help at home. No interest in going to rehab. Does not qualify for home health due to her insurance. Has been on Ozempic previously. Attempted to fill Zepbound for improved benefit and weight loss. Unfortunately it was denied after completing PA. Total time spent on discharge 42 minutes in counseling, documentation, chart review, and direct care with patient. Exam Data for Last 24 hours Vital signs and Labs for Last 24 Hours: Temp Pulse Resp BP Pulse Ox O2 Del Method O2 Flow Rate 99.4 F 95 H 17 125/74 97 Nasal Cannula 2 12/09/24 12:00 12/09/24 12:00 12/09/24 12:00 12/09/24 12:00 12/09/24 12:00 12/09/24 13:00 12/09/24 13:00 FiO2 35 12/09/24 08:00 Laboratory Results - last 24 hr 12/08/24 16:05: Sodium 138, Potassium 4.7 D, Chloride 97 L, Carbon Dioxide 33 H, Anion Gap 12.7, BUN 36 H, Creatinine 1.10 H, Estimated Creat Clear 46, Estimated GFR 53 L, Est GFR ( Amer) 64 D, Glucose 194 H D, Calcium 7.9 L 12/09/24 06:23: WBC 7.1, RBC 4.23, Hgb 11.3 L, Hct 38.8, MCV 91.7, MCH 26.7 L, MCHC 29.1 L, RDW 16.1, Plt Count 141 L, MPV 10.4, Neut % (Auto) 72.6, Lymph % (Auto) 17.5, Dawes % (Auto) 8.7, Eos % (Auto) 0.1, Baso % (Auto) 0.1, Neut # (Auto) 5.2, Lymph # (Auto) 1.3, Dawes # (Auto) 0.6, Eos # (Auto) 0.0, Baso # (Auto) 0.0, Sodium 144, Potassium 4.1, Chloride 93 L, Carbon Dioxide 42 H*, Anion Gap 13.1, BUN 34 H, Creatinine 1.10 H, Estimated Creat Clear 46, Estimated GFR 53 L, Est GFR ( Amer) 64, Glucose 84 D, Calcium 8.3 L, Total Bilirubin 0.1 L, AST 15, ALT 13, Alkaline Phosphatase 62, Total Protein 7.0, Albumin 3.9, Globulin 3.1, Albumin/Globulin Ratio 1.3, Vancomycin Trough 19.4 H I & O for Last 24 hours: Intake & Output 12/06/24 12/07/24 12/08/24 12/09/24 23:59 23:59 23:59 23:59 Intake Total 1539.583 / 2539.583 2431.333 / 2651.333 1015 / 1015 Output Total 5850 / 6150 8250 / 8800 5350 / 5350 Balance -4310.417 / -3610.417 -5818.667 / -6148.667 -4335 / -4335 Weight 145.15 kg 186.4 kg 187.4 kg 184.8 kg Microbiology Reports for the Last 24 Hours: Microbiology 12/07/24 19:08 Anus CRE Surveillance Culture - Final Negative 12/08/24 09:21 Abdomen Gram Stain - Final 12/08/24 09:21 Abdomen Wound Culture - Preliminary 12/07/24 00:40 Blood Blood Culture - Preliminary NO GROWTH AFTER 48 HOURS 12/07/24 00:40 Blood Blood Culture - Preliminary NO GROWTH AFTER 48 HOURS Constitutional Constitutional: mild distress (chronic), morbidly obese, chronically ill appearing and cooperative *Routine HEENT Exam Head: Present normocephalic Eye: Present EOMI and PERRL ENT: Present mucous membranes moist Comments: Cushingoid face, tracheostomy in place with no drainage *Routine Neck Exam Neck: Present supple; Absent lymphadenopathy Comments: Trach collar in place with passy rayo valve *Routine Respiratory Exam Respiratory: Present CTA bilaterally and distant breath sounds; Absent prolonged expiratory phase, rhonchi or wheezes *Routine Cardiovascular Exam Cardiovascular: Present RRR; Absent murmur *Routine Abdominal Exam Abdominal: Present soft and normoactive bowel sounds; Absent tenderness Comments: Morbidly obese. Abdominal wall with resolved erythema. Still has pitting edema of abdominal wall/pannus *Routine Rectal Exam Patient deferred: visual exam *Routine Exam Patient deferred: external exam *Routine Extremities Exam Extremities: Present edema (Chronic lipedema with 1+ edema); Absent cyanosis or clubbing *Routine Skin Exam Skin: Present intact and wounds; Absent rash *Routine Neurological Exam Neurological: Present alert, oriented X3 and moving all extremities; Absent altered mental status Routine Psychiatric Exam Psychiatric: Present normal affect Results Data Completed and Pending Labs on day of discharge: Labs from last 24 hours 12/09/24 12/08/24 06:23 16:05 WBC 7.1 RBC 4.23 Hgb 11.3 L Hct 38.8 MCV 91.7 MCH 26.7 L MCHC 29.1 L RDW 16.1 Plt Count 141 L MPV 10.4 Neut % (Auto) 72.6 Lymph % (Auto) 17.5 Dawes % (Auto) 8.7 Eos % (Auto) 0.1 Baso % (Auto) 0.1 Neut # (Auto) 5.2 Lymph # (Auto) 1.3 Dawes # (Auto) 0.6 Eos # (Auto) 0.0 Baso # (Auto) 0.0 Sodium 144 138 Potassium 4.1 4.7 D Chloride 93 L 97 L Carbon Dioxide 42 H* 33 H Anion Gap 13.1 12.7 BUN 34 H 36 H Creatinine 1.10 H 1.10 H Estimated Creat Clear 46 46 Estimated GFR 53 L 53 L Est GFR ( Amer) 64 64 D Glucose 84 D 194 H D Calcium 8.3 L 7.9 L Total Bilirubin 0.1 L AST 15 ALT 13 Alkaline Phosphatase 62 Total Protein 7.0 Albumin 3.9 Globulin 3.1 Albumin/Globulin Ratio 1.3 Vancomycin Trough 19.4 H Preliminary micro results at discharge 12/08/24 09:21 Wound Culture - Preliminary Abdomen 12/07/24 00:40 Blood Culture - Preliminary Blood NO GROWTH AFTER 48 HOURS 12/07/24 00:40 Blood Culture - Preliminary Blood NO GROWTH AFTER 48 HOURS DS: Diagnosis Discharge Diagnosis (1) Acute on chronic respiratory failure with hypoxia and hypercapnia: Status: Acute Code(s): J96.21 - Acute and chronic respiratory failure with hypoxia; J96.22 - Acute and chronic respiratory failure with hypercapnia Meds Home Medications and Allergies Home Medications ?Medication ?Instructions ?Recorded ?Confirmed ?Type losartan 25 mg tablet 25 mg PO DAILY #30 tabs 05/15/24 12/07/24 Rx propranolol 10 mg tablet 10 mg PO BID #60 tabs 05/15/24 12/07/24 Rx fluticasone fur. 100 mcg-umeclid 1 inh inhalation DAILY 90 days #90 07/22/24 12/07/24 Rx 62.5 mcg-vilant 25 mcg blisters inhalat.powder (Trelegy Ellipta) rivaroxaban 10 mg tablet (Xarelto) 10 mg PO DAILY #10 tabs 07/26/24 12/07/24 Rx cyclobenzaprine 5 mg tablet 5 mg PO TID 08/12/24 12/07/24 History linaclotide 145 mcg capsule 145 mcg PO DAILY #90 caps 08/13/24 12/07/24 Rx (Linzess) ziprasidone HCl 40 mg capsule 40 mg PO BID #60 caps 09/06/24 12/07/24 Rx (Geodon) duloxetine 30 mg capsule,delayed 90 mg (3 x 30 mg) PO DAILY #180 09/11/24 12/07/24 Rx release caps levothyroxine 25 mcg tablet 25 mcg PO 0700 #90 tabs 09/11/24 12/07/24 Rx rimegepant 75 mg disintegrating 75 mg PO Q48H #40 tabs 09/11/24 12/07/24 Rx tablet (Nurtec ODT) lamotrigine 100 mg tablet 100 mg PO DAILY #30 tabs 10/10/24 12/07/24 Rx gabapentin 600 mg tablet 600 mg PO TID #90 tabs 11/08/24 12/07/24 Rx oxycodone-acetaminophen 10 mg-325 1 tab PO QIDP PRN Mild Pain (Scale 11/13/24 12/07/24 Rx mg tablet Score 1-4) #120 tabs fluticasone propionate 50 1 spray intranasal DAILY #16 grams 11/14/24 12/07/24 Rx mcg/actuation nasal spray,suspension (Flonase Allergy Relief) spironolactone 50 mg tablet 50 mg PO DAILY 90 days #90 tabs 11/14/24 12/07/24 Rx (Aldactone) levofloxacin 750 mg tablet 750 mg PO DAILY 7 days #7 tabs 12/04/24 12/04/24 Rx omeprazole 40 mg capsule,delayed 40 mg PO BID 12/04/24 12/07/24 History release albuterol sulfate 90 mcg/actuation 2 inh inhalation Q6HP PRN 12/07/24 12/07/24 History aerosol inhaler (Ventolin HFA) shortness of breath or wheezing diazepam 5 mg tablet 5 mg PO BIDP PRN anxiety 12/07/24 12/07/24 History ondansetron 4 mg disintegrating 4 mg PO Q6HP PRN Nausea And 12/07/24 12/07/24 History tablet Vomiting promethazine 25 mg tablet 25 mg PO TIDP PRN Nausea And 12/07/24 12/07/24 History Vomiting quetiapine 100 mg tablet 200 mg PO HS 12/07/24 12/07/24 History sumatriptan succinate 100 mg tablet 100 mg PO DAILYP PRN Migraine 12/07/24 12/07/24 History Headache levofloxacin 750 mg tablet 750 mg PO DAILY #5 tabs 12/09/24 Rx magnesium sulfate 100 mg capsule 100 mg PO DAILY #30 caps 12/09/24 Rx tirzepatide (weight loss) 2.5 2.5 mg (0.5 mL) SQ WEEKLY sleep 12/09/24 Rx mg/0.5 mL subcutaneous pen apnea, morbid obesity #2 mL injector (Zepbound) torsemide 100 mg tablet 100 mg PO BIDL 30 days #60 tabs 12/09/24 Rx New Prescriptions to Start Prescriptions: levoDean Vergara magnesium sulfate Dean Ornelas tirzepatide (weight loss) [Zepbound] Dean Ornelas torsemide Dean Ornelas Allergies Allergy/AdvReac Type Severity Reaction Status Date / Time doxycycline Allergy Severe Blister Verified 12/04/24 11:42 clindamycin Allergy Blister Verified 12/04/24 11:42 Sulfa (Sulfonamide AdvReac Intermediate Rash Verified 12/04/24 11:42 Antibiotics) amoxicillin AdvReac Other Verified 12/04/24 11:42 morphine AdvReac Headache Verified 12/04/24 11:42 nitrofurantoin (From AdvReac Other Verified 12/04/24 11:42 Macrobid) Discharge Plan Disposition Patient Disposition: Home, Self-Care Condition: Fair Discharge Order Discharge Orders: Discharge Order (Routine); Ordered 12/09/24 Ordered By: Dean Ornelas Follow up Plan Follow up with: Provider,MD Evan [Primary Care Provider, Medical] - 12/16/24 11:40 am Tian Diaz MD [Physician, Pulmonology] - 01/09/25 1:00 pm Prescriptions/Medication Reconciliation: New levofloxacin 750 mg tablet 750 mg PO DAILY Qty: 5 0RF magnesium sulfate 100 mg capsule 100 mg PO DAILY Qty: 30 0RF Continued gabapentin 600 mg tablet 600 mg PO TID Qty: 90 0RF oxycodone-acetaminophen 10-325 mg tablet 1 tab PO QIDP PRN (Reason: Mild Pain (Scale Score 1-4)) Qty: 120 0RF Trelegy Ellipta 100-62.5-25 mcg blister with device 1 inh inhalation DAILY 90 Days Qty: 90 3RF Xarelto 10 mg tablet 10 mg PO DAILY Qty: 10 0RF omeprazole 40 mg capsule,delayed release(DR/EC) 40 mg PO BID levofloxacin 750 mg tablet 750 mg PO DAILY 7 Days Qty: 7 0RF losartan 25 mg tablet 25 mg PO DAILY Qty: 30 5RF propranolol 10 mg tablet 10 mg PO BID Qty: 60 5RF Linzess 145 mcg capsule 145 mcg PO DAILY Qty: 90 2RF ziprasidone HCl [Geodon] 40 mg capsule 40 mg PO BID Qty: 60 2RF Rx Instructions: give with food (meal/snack) duloxetine 30 mg capsule,delayed release(DR/EC) 90 mg PO DAILY Qty: 180 3RF levothyroxine 25 mcg tablet 25 mcg PO 0700 Qty: 90 3RF Nurtec ODT 75 mg tablet,disintegrating 75 mg PO Q48H Qty: 40 0RF lamotrigine 100 mg tablet 100 mg PO DAILY Qty: 30 3RF fluticasone propionate [Flonase Allergy Relief] 50 mcg/actuation spray,suspension 1 spray intranasal DAILY Qty: 16 2RF Rx Instructions: administer into each nostril spironolactone [Aldactone] 50 mg tablet 50 mg PO DAILY 90 Days Qty: 90 4RF sumatriptan succinate 100 mg tablet 100 mg PO DAILYP PRN (Reason: Migraine Headache) Patient Comments: TAKE ONE TABLET BY MOUTH AT ONSET OF MIGRAINE. MAY REPEAT ONCE AFTER 2 HOURS IF NEEDED quetiapine 100 mg tablet 200 mg PO HS Patient Comments: TAKE TWO TABLETS BY MOUTH EVERY NIGHT AT BEDTIME promethazine 25 mg tablet 25 mg PO TIDP PRN (Reason: Nausea And Vomiting) albuterol sulfate [Ventolin HFA] 90 mcg/actuation HFA aerosol inhaler 2 inh inhalation Q6HP PRN (Reason: shortness of breath or wheezing) ondansetron 4 mg tablet,disintegrating 4 mg PO Q6HP PRN (Reason: Nausea And Vomiting) diazepam 5 mg tablet 5 mg PO BIDP PRN (Reason: anxiety) Zepbound 2.5 mg/0.5 mL pen injector 2.5 mg SQ WEEKLY Qty: 2 2RF Rx Instructions: for 4 weeks cyclobenzaprine 5 mg tablet 5 mg PO TID Changed torsemide 100 mg tablet 100 mg PO BIDL 30 Days Qty: 60 0RF Problem Reconciliation Problems Reviewed?: Yes Patient Discharge Instructions ACTIVITY: Continue current activity DIET: continue same diet Patient Instructions: How to Take Care of a Tracheostomy, Heart Failure, DI for Respiratory Failure Print Language: Surinamese Providers Primary Care Provider: Provider,Referral Admit Provider: Dean Ornelas Attending Provider: Dean Ornelas
--- NOTE | 2024-12-10 10:46 | SW/DCPLANNER ---
Spoke with patient on the phone. Patient stated that she is doing very well. Patient stated that she is aware of her upcoming appointments. Patient stated that she was able to get her new medicine picked up from [facility]. Patient stated that she has no concerns or questions at this time. Mattie Choudhary
== END 2024-12-09 15:52 | disposition home or self-care (01) | DRG 208 ==
LOC: ER 12-07 00:21 → 2ND 12-07 01:27 → ICU 12-07 01:55
PROVIDERS: Internal Medicine; Internal Medicine Pulmonary Disease; Admitting Provider Internal Medicine Adolescent Medicine; Emergency Provider Emergency Medicine; Visit Provider Internal Medicine Adolescent Medicine
DX: J96.22 Acute and chronic respiratory failure with hypercapnia (principal); I50.33 Acute on chronic diastolic (congestive) heart failure; E66.2 Morbid (severe) obesity with alveolar hypoventilation; Z68.45 Body mass index [BMI] 70 or greater, adult; J44.1 Chronic obstructive pulmonary disease with (acute) exacerbation; I13.0 Hypertensive heart and chronic kidney disease with heart failure and stage 1 through stage 4 chronic kidney disease, or unspecified chronic kidney disease; L03.311 Cellulitis of abdominal wall; F33.3 Major depressive disorder, recurrent, severe with psychotic symptoms; J96.21 Acute and chronic respiratory failure with hypoxia; N18.30 Chronic kidney disease, stage 3 unspecified; E11.22 Type 2 diabetes mellitus with diabetic chronic kidney disease; E03.9 Hypothyroidism, unspecified; G43.909 Migraine, unspecified, not intractable, without status migrainosus; Z93.0 Tracheostomy status; Z79.899 Other long term (current) drug therapy; Z79.01 Long term (current) use of anticoagulants; Z79.890 Hormone replacement therapy; Z88.2 Allergy status to sulfonamides; Z88.1 Allergy status to other antibiotic agents; Z99.89 Dependence on other enabling machines and devices; Z87.891 Personal history of nicotine dependence; Z86.16 Personal history of COVID-19
CPT/HCPCS: 36415; 51702; 71045; 80048; 80053; 80202; 81001; 82803; 83735; 83880; 84145; 84484; 85025; 87040; 87070; 87081; 87205; 87633; 93005; 93306; 93308; 94640; J0696; J1938; J1939; J2919; J3370; J7040; Q9957

== ENCOUNTER 2025-01-03 13:22 | Inpatient (IN) | payer MEDICAID, SELFPAY ==
[2025-01-03] VITALS (13 sets, daily range): BP systolic 136–183; BP diastolic 84–113; PULSE 88–121; RESP 15–23; TEMP 36.7–36.9; O2SAT 89–97; BMI 75.5; BMI 76.9
--- NOTE | 2025-01-03 13:34 | XR_ITS ---
FINAL REPORT CLINICAL HISTORY: fall/ generalized r knee pain COMPARISON: 11/28/2023 FINDINGS: AP, lateral and oblique views of the right knee were obtained. There is no acute osseous abnormality of the right knee. Degenerative joint disease is similar to the prior study. The soft tissues are normal. There is no joint effusion. IMPRESSION: No acute osseous abnormality of the right knee. Reviewed, Interpreted and Dictated by Em Rutherford MD Transcribed by Fay Joy Authenticated and [facility]
--- NOTE | 2025-01-03 13:34 | XR_ITS ---
FINAL REPORT CLINICAL HISTORY: fall, generalized pain FINDINGS: AP, oblique, and lateral views of the left ankle were obtained. There is no prior exam for comparison. There is no fracture or dislocation. The ankle mortise is intact. Soft tissues are unremarkable. IMPRESSION: No acute osseous abnormality of the left ankle. Reviewed, Interpreted and Dictated by Em Rutherford MD Transcribed by Fay Joy Authenticated and [facility]
--- NOTE | 2025-01-03 13:34 | XR_ITS ---
FINAL REPORT CLINICAL HISTORY: Shortness of breath COMPARISON: 12/07/2024 FINDINGS: A portable view of the chest was obtained. Tracheostomy tube is unchanged in position. The heart is stable. Worsening bibasilar opacity could represent atelectasis versus pneumonia.. There is no large pleural effusion. No pneumothorax. IMPRESSION: Worsening bibasilar opacity, atelectasis versus pneumonia. Reviewed, Interpreted and Dictated by Em Rutherford MD Transcribed by Fay Joy Authenticated and [facility]
[2025-01-03] MEDS: IPRATROPIUM/ALBUTEROL 3 ML NEB IH ×3 (13:35→23:53)
--- OUTSIDE RECORDS SUMMARY | 2025-01-03 13:37 | XMS_ITS | Encounter Summary ---
Author Organization [employer] ([place], [place], [place], [place]) Address [address] [place] [address] Care Team Providers Care Gasket Maker Name Role Phone Unavailable Primary Care Provider Unavailabl e Encounter Details Date Type Department Care Team (Late st Contact Info) Description 08/18/2021 Transcribed Document [facility] [place] Family Medicine [facility] [place] [address] ProviderMaría MD [address] [place] [address] Social History Tobacco Use [...] COVID-19 pneumonia, and recent respiratory arrest at [facility] requiring tracheostomy/PEG about a month ago with transfer to [facility]. She was discharged on 08/11. She has been tolerating oral intake and was scheduled to have PEG removed next week. She began having pain around the PEG tube site around 3 days ago with the area becoming more red with burning sensation prompting her to come to [facility] ED on 08/14/21. She denies [...] mL - 600 mg, IV Piggyback, Inj, [id number], infuse over 30 Minute(s), Routine Anticoagulant enoxaparin (Lovenox) - 40 mg, SubCutaneous, Inj, [id number], Routine Cardiovascular carvedilol - 12.5 mg, Oral, [...] No tenderness, No deformity. Integumentary: Warm, Dry, [place], No pallor, No rash, PEG tube site [...] 18) L 2.6 (AUG 14) , ACC: [id number] ORDER: Culture Wound and Stain DATE: 08/15/2021 [...] cells seen No organisms seen. == ACC: [id number] ORDER: Culture Wound and Stain DATE: 08/15/2021 [...] organisms seen. Few White Blood Cells == [facility]: [id number] ORDER: Culture Blood DATE: 08/14/2021 19:11 SOURCE: Blood SITE: Reports Pre 08/17/2021 23:01 No growth at 3 days. Pre 08/16/2021 23:01 No growth at 2 days. Pre 08/15/2021 23:01 No growth at 1 day. Pre 08/15/2021 16:01 Culture less than 24 Hrs old == ACC: [id number] ORDER: Culture Blood DATE: 08/14/2021 19:11 SOURCE: Blood SITE: Reports Pre 08/17/2021 23:01 No growth at 3 days. Pre 08/16/2021 23:01 No growth at 2 days. Pre 08/15/2021 23:01 No growth at 1 day. Pre 08/15/2021 16:01 Culture less than 24 Hrs old == . Chest x-ray results Radiology Results (Last 48 hours) [id number] -- 08/14/2021 22:53 CR Chest 1 Vw [...] Continue wound care. 5. Obtain records from [facility] and [facility] and place on chart. 6. Continue oxygen support as needed. Plan has been discussed with patient including side effects of medications and line. At increased risk for side effects of abx and line, and readmission. Discussed in detail with nursing, and the patient's mother. Follow-up can be arranged for primary care. documented in this encounter Plan of Treatment Not on file documented as of this encounter Visit Diagnoses Not on filedocumented in this encounter
--- OUTSIDE RECORDS SUMMARY | 2025-01-03 13:37 | XMS_ITS | Clinical Summary ---
Author Organization [facility] Address [address] [place] [address] Phone Care Team Providers Care Transport Specialist Name Role Phone Unavailable Unavailable Conditions or Problems No information available. Medications No information available. Medications Administered No information available. Allergies, Adverse Reactions, Alerts No information available. Results No information available. Plan of Care No information available. Procedures No information available. Vital Signs No information available. Immunizations No information available. Advance Directives No information available.
--- OUTSIDE RECORDS SUMMARY | 2025-01-03 13:37 | XMS_ITS | Encounter Summary ---
Author Organization [employer] ([place], [place], [place]) Address [address] [place] [address] Care Team Providers Care Interim Controller Name Role Phone Unavailable Primary Care Provider Unavailabl e Encounter Details Date Type Department Care Team (Late st Contact Info) Description 08/18/2021 Transcribed Document [facility] Family Medicine [facility] [address] ProviderMaría MD [address] [place] [address] Social History Tobacco Use Types [...] Historical ProviderMD - 08/18/2021 3:00 AM CDT Computer Processing Scheduler Details Entered On: 08/18/2021 2:01 EDT Performed [...]
--- OUTSIDE RECORDS SUMMARY | 2025-01-03 13:37 | XMS_ITS | Encounter Summary ---
Author Organization [employer] ([place], [place], [place], [place]) Address [address] [place] [address] Care Team Providers Care Central Station Operator Name Role Phone Unavailable Primary Care Provider Unavailabl e Encounter Details Date Type Department Care Team (Late st Contact Info) Description 08/16/2021 Transcribed Document [facility] [facility] [place] [address] ProviderMaría MD [address] [place] [address] Social History Tobacco Use Types [...] 08/16/2021 10:53 EDT Electronically signed by [facility] Conversion Drawing Hand Cerner at 09/18/2022 8:59 AM CDT documented in this encounter Plan of Treatment Not on file documented as of this encounter Visit Diagnoses Not on filedocumented in this encounter
--- OUTSIDE RECORDS SUMMARY | 2025-01-03 13:37 | XMS_ITS | Encounter Summary ---
Author Organization [employer] ([place], [place], [place], [place]) Address [address] [place] [address] Care Team Providers Care Double Bottom Driver Name Role Phone Unavailable Primary Care Provider Unavailabl e Encounter Details Date Type Department Care Team (Late st Contact Info) Description 08/18/2021 Transcribed Document [facility] [address] [place] [address] ProviderMaría MD [address] [place] [address] Social History Tobacco Use Types [...] All Active Orders Reviewed : Yes Quynh Gunetr RN - 08/18/2021 4:48 EDT documented in this encounter Plan of Treatment Not on file documented as of this encounter Visit Diagnoses Not on filedocumented in this encounter
--- OUTSIDE RECORDS SUMMARY | 2025-01-03 13:37 | XMS_ITS | Encounter Summary ---
Author Organization [employer] ([place], [place], [place], [place]) Address [address] [place] [address] Care Team Providers Care Junior Sales Assistant Name Role Phone Unavailable Primary Care Provider Unavailabl e Encounter Details Date Type Department Care Team (Late st Contact Info) Description 08/16/2021 Transcribed Document [facility] [place] [address] [place] [address] ProviderMaría MD [address] [place] [address] Social History Tobacco Use Types [...] Historical ProviderMD - 08/16/2021 3:00 AM CDT Mechanical Reliability Engineer Details Entered On: 08/16/2021 2:17 EDT Performed [...]
--- OUTSIDE RECORDS SUMMARY | 2025-01-03 13:37 | XMS_ITS | Encounter Summary ---
Author Organization [employer] ([place], [place], [place], [place]) Address [address] [place] [address] Care Team Providers Care Finger Grip Machine Operator Name Role Phone Unavailable Primary Care Provider Unavailabl e Encounter Details Date Type Department Care Team (Late st Contact Info) Description 08/16/2021 Transcribed Document [facility] [place] Family Medicine [address] [place] [address] ProviderMaría MD [address] [place] [address] Social History Tobacco Use Types [...]
--- OUTSIDE RECORDS SUMMARY | 2025-01-03 13:37 | XMS_ITS | Encounter Summary ---
Author Organization [email or web address] ([place], [place], [place], [place]) Address [address] [place] [address] Care Team Providers Care Sharepoint Designer Developer Name Role Phone Unavailable Primary Care Provider Unavailabl e Encounter Details Date Type Department Care Team (Late st Contact Info) Description 08/16/2021 Transcribed Document [facility] [place] [facility] [place] [address] ProviderMaría MD [address] [place] [address] Social History Tobacco Use Types [...] On: 08/16/2021 12:52 EDT by EBEN HURTADO, Orthopedic Rn Primary Insurance Authorization Authorization and Policy Numbers : Insurance 1 Health Plan: [facility] Policy Number: [id number] Authorization Number: Insurance Primary Name : [facility] Policy Number: [id number] Authorization Status-Primary : Admit approved Reference Number-Primary : [id number] Authorization Number-Primary : [id number] Number of Days Authorized-Primary : 4 Day(s) Authorized Service Begin Date-Primary : 08/14/2021 EST Authorized Service End Date-Primary : 08/18/2021 EDT Authorization Comments-Primary : inpt admit approved per fax from [facility] 08/16/21 auth# [id number] NRD 08-19-21 Historical Authorization Comments-Primary : Comment 1: Clinicals submitted on [facility] website for IP approval (ROBERTO CARLOS CISNEROS RN 08/15/2021 12:09) EBEN HURTADO, Orthopedic Rn - 08/16/2021 12:52 EDT Electronically signed by [facility] Conversion Die Cleaner Cerner at 09/18/2022 8:57 AM CDT documented in this encounter Plan of Treatment Not on file documented as of this encounter Visit Diagnoses Not on filedocumented in this encounter
--- OUTSIDE RECORDS SUMMARY | 2025-01-03 13:37 | XMS_ITS | Encounter Summary ---
Author Organization [employer] ([place], [place], [place]) Address [address] [place] [address] Care Team Providers Care Stone Processing Machine Operator Name Role Phone Unavailable Primary Care Provider Unavailabl e Encounter Details Date Type Department Care Team (Late st Contact Info) Description 08/18/2021 Transcribed Document [facility] [place] [facility] [place] [address] ProviderMaría MD [address] [place] [address] Social History Tobacco Use Types [...] respiratory arrest last month and admitted to [facility]. Patient CO2 was reportedly greater than 100. Patient was admitted and eventually had to have a trach and peg placed. Patient was tolerating po intake and was about to have peg tube removed next week. Relevant PMH: peg tube placement, recent respiratory arrest, obstructive sleep apnea, tobacco abuse, morbid obesity. Indication: pain project management advisor MD: Saleem Jimenes Allergies: metoclopramide Outpatient Pain [...] for this consult, Hany BaumannD, MPH PGY1 Captain Of Guards Pager: [phone] documented in this encounter Plan of Treatment Not on file documented as of this encounter Visit Diagnoses Not on filedocumented in this encounter
--- OUTSIDE RECORDS SUMMARY | 2025-01-03 13:37 | XMS_ITS | Encounter Summary ---
Author Organization [employer] ([place], [place], [place], [place]) Address [address] [place] [address] Care Team Providers Care Container Packer Operator Name Role Phone Unavailable Primary Care Provider Unavailabl e Encounter Details Date Type Department Care Team (Late st Contact Info) Description 08/18/2021 Transcribed Document [facility] [place] Family Medicine [facility] [place] [address] ProviderMaría MD [address] [place] [address] Social History Tobacco Use Types [...]
--- OUTSIDE RECORDS SUMMARY | 2025-01-03 13:37 | XMS_ITS | Encounter Summary ---
Author Organization [employer] ([place], [place], [place], [place]) Address [address] [place] [address] Care Team Providers Care Assistant Construction Superintendent Name Role Phone Unavailable Primary Care Provider Unavailabl e Encounter Details Date Type Department Care Team (Late st Contact Info) Description 08/16/2021 Transcribed Document [facility] [place] Family Medicine [address] [place] [address] ProviderMaría MD [address] [place] [address] Social History Tobacco Use Types [...] ProviderMD - 08/16/2021 9:00 AM CDT [facility] Bi PreOp Summary Primary Physician: LEO DOMINGUEZ MD Finalized Date/Time: 08/16/21 11:09:03 Pt. Name: CARIN LUCERO/Sex: 1975 Female Med Rec #: [id number] Physician: EDUARD DE LOS SANTOS DO-INT Financial #: [id number] Pt. Type: I Room/Bed: [facility]/1 Admit/Disch: 08/14/21 22:53:00 - Institution: [facility] PreOp Case Times Entry 1 In Preop [...] I 08/16/21 11:09 Electronically signed [address] Tomeka [facility] Conversion Garbage Collector Cerner at 09/18/2022 9:00 AM CDT documented in this encounter Plan of Treatment Not on file documented as of this encounter Visit Diagnoses Not on filedocumented in this encounter
--- OUTSIDE RECORDS SUMMARY | 2025-01-03 13:37 | XMS_ITS | Encounter Summary ---
Author Organization [employer] ([place], [place], [place], [place]) Address [address] [place] [address] Care Team Providers Care Shift Mechanic Name Role Phone Unavailable Primary Care Provider Unavailabl e Encounter Details Date Type Department Care Team (Late st Contact Info) Description 08/16/2021 Transcribed Document [facility] [place] [facility] [place] [address] ProviderMaría MD [address] [place] [address] Social History Tobacco Use Types [...] Kallie Edwards Rn - 08/16/2021 17:32 EDT documented in this encounter Plan of Treatment Not on file documented as of this encounter Visit Diagnoses Not on filedocumented in this encounter
--- OUTSIDE RECORDS SUMMARY | 2025-01-03 13:37 | XMS_ITS | Encounter Summary ---
Author Organization [employer] ([place], [place], [place], [place]) Address [address] [place] [address] Care Team Providers Care Cancer Registry Coordinator Name Role Phone Unavailable Primary Care Provider Unavailabl e Encounter Details Date Type Department Care Team (Late st Contact Info) Description 08/16/2021 Transcribed Document [facility] [facility] [place] [address] ProviderMaría MD [address] [place] [address] Social History Tobacco Use Types [...] the text rendition version of the form. Electronically signed by Tomeka, [facility] Conversion Canoe Inspector Cerner at 09/23/2022 8:14 AM CDT documented in this encounter Plan of Treatment Not on file documented as of this encounter Visit Diagnoses Not on filedocumented in this encounter
--- OUTSIDE RECORDS SUMMARY | 2025-01-03 13:37 | XMS_ITS | Encounter Summary ---
Author Organization [employer] ([place], [place], [place], [place]) Address [address] [place] [address] Care Team Providers Care Steaming Cabinet Tender Name Role Phone Unavailable Primary Care Provider Unavailabl e Encounter Details Date Type Department Care Team (Late st Contact Info) Description 08/16/2021 Transcribed Document [facility] [place] Family Medicine [address] [place] [address] ProviderMaría MD [address] [place] [address] Social History Tobacco Use Types [...] RN Flex II - 08/16/2021 23:08 EDT documented in this encounter Plan of Treatment Not on file documented as of this encounter Visit Diagnoses Not on filedocumented in this encounter
--- OUTSIDE RECORDS SUMMARY | 2025-01-03 13:37 | XMS_ITS | Encounter Summary ---
Author Organization [employer] ([place], [place], [place], [place]) Address [address] [place] [address] Care Team Providers Care Power Transformer Repairer Name Role Phone Unavailable Primary Care Provider Unavailabl e Encounter Details Date Type Department Care Team (Late st Contact Info) Description 08/18/2021 Transcribed Document [facility] [place] Family Medicine [address] [place] [address] ProviderMaría MD [address] [place] [address] Social History Tobacco Use Types [...] RN - International - 08/19/2021 0:42 EDT documented in this encounter Plan of Treatment Not on file documented as of this encounter Visit Diagnoses Not on filedocumented in this encounter
--- OUTSIDE RECORDS SUMMARY | 2025-01-03 13:37 | XMS_ITS | Encounter Summary ---
Author Organization [employer] ([place], [place], [place], [place]) Address [address] [place] [address] Care Team Providers Care Cone Runner Name Role Phone Unavailable Primary Care Provider Unavailabl e Encounter Details Date Type Department Care Team (Late st Contact Info) Description 08/16/2021 Transcribed Document [facility] [place] Family Medicine [address] [place] [address] ProviderMaría MD [address] [place] [address] Social History Tobacco Use Types [...]
--- OUTSIDE RECORDS SUMMARY | 2025-01-03 13:37 | XMS_ITS | Encounter Summary ---
Author Organization [employer] ([place], [place], [place], [place]) Address [address] [place] [address] Care Team Providers Care Beck Tender Name Role Phone Unavailable Primary Care Provider Unavailabl e Encounter Details Date Type Department Care Team (Late st Contact Info) Description 08/16/2021 Transcribed Document [facility] [place] Medicine [facility] [place] [address] ProviderMaría MD [address] [place] [address] Social History Tobacco Use Types [...] COVID-19 pneumonia, and recent respiratory arrest at [facility] requiring tracheostomy/PEG about a month ago with transfer to [facility]. She was discharged on 08/11. She has been tolerating oral intake and was scheduled to have PEG removed next week. She began having pain around the PEG tube site around 3 days ago with the area becoming more red with burning sensation prompting her to come to [facility] ED on 08/14/21. She denies fever, chills, [...] m - 1,500 mg, IV Piggyback, Inj, [id number], infuse over 60 Minute(s) Anticoagulant enoxaparin (Lovenox) - 40 mg, SubCutaneous, Inj, [id number], Routine Cardiovascular hydrALAZINE - 10 mg, Oral, [...] No tenderness, No deformity. Integumentary: Warm, Dry, [place], No pallor, No rash, PEG tube site [...] ALB L 2.6 (AUG 14) , ACC: [id number] ORDER: Culture Wound and Stain DATE: 08/15/2021 13:10 SOURCE: Drainage SITE: Trachea Reports Pre 08/16/2021 06:24 Culture in progress GS 08/15/2021 20:07 No cells seen No organisms seen. == ACC: [id number] ORDER: Culture Wound and Stain DATE: 08/15/2021 13:01 SOURCE: Surgical Swab SITE: Abdomen Reports Pre 08/16/2021 06:23 Culture in progress GS 08/15/2021 14:15 No organisms seen. Few White Blood Cells == ACC: [id number] ORDER: Culture Blood DATE: 08/14/2021 19:11 SOURCE: Blood SITE: Reports Pre 08/15/2021 23:01 No growth at 1 day. Pre 08/15/2021 16:01 Culture less than 24 Hrs old == ACC: [id number] ORDER: Culture Blood DATE: 08/14/2021 19:11 SOURCE: Blood SITE: Reports Pre 08/15/2021 23:01 No growth at 1 day. Pre 08/15/2021 16:01 Culture less than 24 Hrs old == . Chest x-ray results Radiology Results (Last 48 hours) [id number] -- 08/14/2021 22:53 CR Chest 1 Vw [...] care per GI. 5. Obtain records from [facility] and [facility] and place on chart. 6. [...]
--- OUTSIDE RECORDS SUMMARY | 2025-01-03 13:37 | XMS_ITS | Encounter Summary ---
Author Organization [employer] ([place], [place], [place], [place]) Address [address] [place] [address] Care Team Providers Care Sound Effects Manager Name Role Phone Unavailable Primary Care Provider Unavailabl e Encounter Details Date Type Department Care Team (Late st Contact Info) Description 08/18/2021 Transcribed Document [facility] [place] [facility] [place] [address] ProviderMaría MD [facility] [place] [address] Social History Tobacco Use Types [...] On: 08/18/2021 12:56 EDT by Piper Massey Reduction Plant Supervisor Rn Care Management Progress Note Discharge Arrangements [...] Meeting Medical Necessity : Yes Piper Massey, Reduction Plant Supervisor Rn - 08/18/2021 12:56 EDT Narrative Progress [...] is home with family support. ERVIN HERNANDEZ, Boat Fueler - 08/17/21 15:04:51 HD 3/ELOS 3/RRS low [...] DCP: home with family support. JEANNETTE MANCERA, Boat Fueler - 08/16/21 17:36:38 Piper Massey, Reduction Plant Supervisor Rn - 08/18/2021 12:56 EDT Electronically signed by Tomeka [facility] Conversion Water Pump Servicer Cerner at 09/18/2022 9:32 AM CDT documented in this encounter Plan of Treatment Not on file documented as of this encounter Visit Diagnoses Not on filedocumented in this encounter
--- OUTSIDE RECORDS SUMMARY | 2025-01-03 13:37 | XMS_ITS | Encounter Summary ---
Author Organization [employer] ([place], [place], [place], [place]) Address [address] [place] [address] Care Team Providers Care Cashier Credit Name Role Phone Unavailable Primary Care Provider Unavailabl e Encounter Details Date Type Department Care Team (Late st Contact Info) Description 08/16/2021 Transcribed Document [facility] [place] Family Medicine [address] [place] [address] ProviderMaría MD [address] [place] [address] Social History Tobacco Use Types [...] Historical ProviderMD - 08/16/2021 11:20 AM CDT [facility] PACU Summary Primary Physician: LEO DOMINGUEZ MD Finalized Date/Time: 08/16/21 12:29:38 Pt. Name: CARIN LUCERO/Sex: 1975 Female Med Rec #: [id number] Physician: EDUADR DE LOS SANTOS DO-INT Financial #: [id number] Pt. Type: I Room/Bed: [facility]/ Admit/Disch: 08/14/21 22:53:00 - Institution: [facility] PACU Case Times Entry 1 In PACU I 08/16/21 12:00:00 Ready for PACU 08/16/21 12:29:00 Discharge Discharge from PACU 08/16/21 12:20:00 I Last Modified By: NICOLA MCCLELLAN RN, Registered Nurse 08/16/21 12:29:35 Finalized By: NICOLA MCCLELLAN RN, Registered Nurse Document Signatures Signed By: NICOLA MCCLELLAN RN, Registered Nurse 08/16/21 12:29 Electronically signed by Roman Eckert Conversion Dusting And Brushing Machine Operator Cerner at 09/18/2022 8:58 AM CDT documented in this encounter Plan of Treatment Not on file documented as of this encounter Visit Diagnoses Not on filedocumented in this encounter
--- OUTSIDE RECORDS SUMMARY | 2025-01-03 13:37 | XMS_ITS | Encounter Summary ---
Author Organization [employer] ([place], [place], [place], [place]) Address [address] [place] [address] Care Team Providers Care Certified Surgical First Assistant Name Role Phone Unavailable Primary Care Provider Unavailabl e Encounter Details Date Type Department Care Team (Late st Contact Info) Description 08/16/2021 Transcribed Document [facility] Family Medicine [facility] [place] [address] ProviderMaría MD [address] [place] [address] Social History Tobacco Use Types [...]
--- OUTSIDE RECORDS SUMMARY | 2025-01-03 13:37 | XMS_ITS | Clinical Summary ---
Author Organization [facility] Address [address] [place] [address] Phone Care Team Providers Care Lens Coating Technician Name Role Phone Unavailable Primary Care [...] to complete this topic Insurance [employer] [place] [id number] [address] [facility] [facility] [place] [address] [employer] [facility] [facility] [place] [address] MDR [address] [facility]
--- OUTSIDE RECORDS SUMMARY | 2025-01-03 13:37 | XMS_ITS | Encounter Summary ---
Author Organization [employer] ([place], [place], [place], [place]) Address [address] [place] [address] Care Team Providers Care Sign Designer Name Role Phone Unavailable Primary Care Provider Unavailabl e Encounter Details Date Type Department Care Team (Late st Contact Info) Description 08/16/2021 Transcribed Document [facility] [place] [facility] [place] [address] ProviderMaría MD [address] [place] [address] Social History Tobacco Use Types [...] On: 08/16/2021 17:33 EDT by JEANNETTE MANCERA, Production Supv Care Management Progress Note Discharge Arrangements : [...] Attend Multidisciplinary Rounds? : Yes JEANNETTE MANCERA Production Supv - 08/16/2021 17:33 EDT Narrative Progress Note [...] - DCP: home with family support. JEANNETTE MANCEAR Production Supv - 08/16/2021 17:33 EDT documented in this encounter Plan of Treatment Not on file documented as of this encounter Visit Diagnoses Not on filedocumented in this encounter
--- OUTSIDE RECORDS SUMMARY | 2025-01-03 13:37 | XMS_ITS | Encounter Summary ---
Author Organization [employer] ([place], [place], [place], [place]) Address [address] [place] [address] Care Team Providers Care Telephone Order Clerk Name Role Phone Unavailable Primary Care Provider Unavailabl e Encounter Details Date Type Department Care Team (Late st Contact Info) Description 08/17/2021 Transcribed Document [facility] [place] Medicine [facility] [place] [address] ProviderMaría MD [address] [place] [address] Social History Tobacco Use Types [...]
--- OUTSIDE RECORDS SUMMARY | 2025-01-03 13:37 | XMS_ITS | Encounter Summary ---
Author Organization [employer] ([place], [place], [place], [place]) Address [address] [place] [address] Care Team Providers Care Service Supervisor Name Role Phone Unavailable Primary Care Provider Unavailabl e Encounter Details Date Type Department Care Team (Late st Contact Info) Description 08/17/2021 Transcribed Document [facility] [place] [facility] [place] [address] ProviderMaría MD [address] [place] [address] Social History Tobacco Use Types [...] COVID-19 pneumonia, and recent respiratory arrest at [facility] requiring tracheostomy/PEG about a month ago with transfer to [facility]. She was discharged on 08/11. She has been tolerating oral intake and was scheduled to have PEG removed next week. She began having pain around the PEG tube site around 3 days ago with the area becoming more red with burning sensation prompting her to come to [facility] ED on 08/14/21. She denies fever, chills, [...] mL - 600 mg, IV Piggyback, Inj, [id number], infuse over 30 Minute(s), Routine Anticoagulant enoxaparin (Lovenox) - 40 mg, SubCutaneous, Inj, [id number], Routine Cardiovascular carvedilol - 12.5 mg, Oral, [...] No tenderness, No deformity. Integumentary: Warm, Dry, [place], No pallor, No rash, PEG tube site [...] ALB L 2.6 (AUG 14) , ACC: [id number] ORDER: Culture Wound and Stain DATE: 08/15/2021 13:10 SOURCE: Drainage SITE: Trachea Reports Pre 08/17/2021 09:53 Moderate Growth Coagulase Negative Staphylococcus Moderate Growth Coagulase Negative Staphylococcus #2 Pre 08/16/2021 06:24 Culture in progress GS 08/15/2021 20:07 No cells seen No organisms seen. == ACC: [id number] ORDER: Culture Wound and Stain DATE: 08/15/2021 13:01 SOURCE: Surgical Swab SITE: Abdomen Reports Pre 08/17/2021 10:23 Moderate Growth Coagulase Negative Staphylococcus Moderate Growth Enterococcus species Pre 08/17/2021 09:46 Moderate Growth Coagulase Negative Staphylococcus Moderate Growth Gamma Hemolytic Streptococcus Pre 08/16/2021 06:23 Culture in progress GS 08/15/2021 14:15 No organisms seen. Few White Blood Cells == ACC: [id number] ORDER: Culture Blood DATE: 08/14/2021 19:11 SOURCE: Blood SITE: Reports Pre 08/16/2021 23:01 No growth at 2 days. Pre 08/15/2021 23:01 No growth at 1 day. Pre 08/15/2021 16:01 Culture less than 24 Hrs old == ACC: [id number] ORDER: Culture Blood DATE: 08/14/2021 19:11 SOURCE: [...] Continue wound care. 5. Obtain records from [facility] and [facility] and place on chart. 6. Continue [...]
--- OUTSIDE RECORDS SUMMARY | 2025-01-03 13:37 | XMS_ITS | Encounter Summary ---
Author Organization [employer] ([place], [place], [place], [place]) Address [address] [place] [address] Care Team Providers Care Circus Rider Name Role Phone Unavailable Primary Care Provider Unavailabl e Encounter Details Date Type Department Care Team (Late st Contact Info) Description 08/16/2021 Transcribed Document [facility] [place] [facility] [place] [address] ProviderMaría MD [address] [place] [address] Social History Tobacco Use Types [...] Review HPI: 46 y/o F presenting to [facility] 2/2 abdominal pain w/ infxn around PEG tube site x 3 days. Per provider H&P: pt endorses burning sensation around site & noted redness. Recent hospital stay at [facility] - just discharged x 3 days prior to admission at [facility]. PMH significant for PEG tube placement, [...] well. Thank you, Jacinto Baltazar, IbisD PGY1 Event Planning Intern Pager: [phone], Ext. [phone] documented in this encounter Plan of Treatment Not on file documented as of this encounter Visit Diagnoses Not on filedocumented in this encounter
--- OUTSIDE RECORDS SUMMARY | 2025-01-03 13:37 | XMS_ITS | Encounter Summary ---
Author Organization [employer] ([place], [place], [place], [place]) Address [address] [place] [address] Care Team Providers Care Neurology Technician Name Role Phone Unavailable Primary Care Provider Unavailabl e Encounter Details Date Type Department Care Team (Late st Contact Info) Description 08/16/2021 Transcribed Document [facility] Radiology [address] [place] [address] Saleem Jimenes MD [address] [place] [address] Social History Tobacco Use Types Packs/Day [...] mg, 12 mL, 124 mL/Hr, IV Piggyback, [id number] Depakote ER: 500 mg, Oral, Daily Dilaudid: 0.5 mg, IV Push, Q2H, PRN: Pain (Severe 7-10) Dulcolax Laxative: 5 mg, Oral, Daily, PRN: Constipation DuoNeb 0.5 mg-2.5 mg/3 mL inhalation solution: 3 mL, Nebulized Inhalation, RT_Q6H, PRN: Shortness of Breath Geodon: 40 mg, Oral, Daily Imitrex: 100 mg, Oral, Daily LaMICtal: 100 mg, Oral, Daily Lovenox: 40 mg, SubCutaneous, W99STvp MiraLax: 17 Gram, Oral, Daily, PRN: Constipation [...] hours oral tablet, extended release: Tab, Oral, M12JDld, 0 Refill(s) acetaminophen-HYDROcodone 325 mg-5 mg oral [...] mL 600 mg 12 mL, IV Piggyback, [id number] divalproex sodium ER 500 mg tab 500 mg 1 Tab, Oral, Daily enoxaparin 40 mg/0.4 mL inj 40 mg 0.4 mL, SubCutaneous, U70HKpa famotidine 20 mg/2 mL inj 20 mg [...] History of obstructive sleep apnea / IMO [id number] / Confirmed Suicide risk / IMO 89629 / Confirmed, Active Problems (2) History of [...] 31.7 \ Radiology Results (Last 48 hours) [id number] -- 08/14/2021 22:53 CR Chest 1 Vw [...] 50 mL 600 mg, IV Piggyback, Inj, E20QLfe, infuse over 30 Minute(s), Routine, Start 08/17/21 9:00:00 EDT, 124 mL/Hr, Indication: Skin and Skin Structure Infection ERIKA GRANADO MD-INF divalproex sodium (Depakote ER) 500 mg, Oral, ER Tab, Daily, Start 08/15/21 11:44:00 EDT SALEEM JIMENES MD-INT enoxaparin (Lovenox) 40 mg, SubCutaneous, Inj, [id number], Routine, Start 08/15/21 12:00:00 EDT, 08/15/21 12:21:00 [...] 250 mL 1,500 mg, IV Piggyback, Inj, B50KJzn, infuse over 60 Minute(s), Start 08/15/21 11:00:00 [...]
--- OUTSIDE RECORDS SUMMARY | 2025-01-03 13:37 | XMS_ITS | Clinical Summary ---
Author Organization [facility] Address [address] [place] [address] Care Team Providers Care Emergency Room Registered Nurse Name Role Phone Provider, Unknown Primary Care Provider Unavaila ble Allergies Active Allergy Reactions Criticality Noted Date Comments Doxycycline Hives,Rash 09/12/2024 Morphine Other (See Comments) 09/12/2024 Headache Medications doxycycline (VIBRAMYCIN) 100 mg capsule Take 1 Capsule (100 mg) by mouth 2 times daily. 20 Capsule 09/12/2024 Active Social History Tobacco Use Types Packs/Day Years Used Date Smoking Tobacco: Never Assessed Comments Unknown Sex and Gender Information Value Date Recorded Sex Assigned at Not on file Legal Sex Female 2:35 PM EDT Gender Identity Not on file Sexual Orientation Not on file Last Filed Vital Signs Vital Sign Reading Time Taken Comments Blood Pressure 157/105 09/12/2024 6:52 PM EDT Pulse 70 09/12/2024 6:52 PM EDT Temperature 37.1 C (98.8 F) 09/12/2024 2:38 PM EDT Respiratory Rate 16 09/12/2024 6:52 PM EDT Oxygen Saturation 96% 09/12/2024 6:52 PM EDT Inhaled Oxygen Concentration - - Weight - - Height - - Body Mass Index - - Plan of Treatment Health Maintenance Due Date Last Done Comments Cologuard 1975 Colonoscopy 1975 Colorectal Cancer Screening 1974 FIT 1974 Lipid Screening 01/12/1992 Cervical Cancer Screening 1995 Breast Cancer Screening 01/12/2024 Pneumococcal Vaccine: 50+ Ye ars (1 of 1 - PCV) 01/12/2024 Zoster-RZV(Shingrix) (1 of 2) 01/12/2024 COVID-19 Vaccine (2023- season) 02/04/202401/2021, 09/04/2020 Depression Screening 06/05/2024 Influenza Vaccination (#1) 02/03/202506/15, 01/18/2018, 02/01/2017 Tetanus Vaccination (Every 10 Years) 08/18/203208/03 Insurance [place]ICAID [place] Care Teams Emergency Room Registered Nurse Relationship Specialty Start Date End Date Provider, Unknown PCP - General 09/12/24
--- OUTSIDE RECORDS SUMMARY | 2025-01-03 13:37 | XMS_ITS | Encounter Summary ---
Author Organization [employer] ([place], [place], [place], [place]) Address [address] [place] [address] Care Team Providers Care Leaf Sorter Name Role Phone Unavailable Primary Care Provider Unavailabl e Encounter Details Date Type Department Care Team (Late st Contact Info) Description 08/16/2021 Transcribed Document [facility] [place] [address] [place] [address] ProviderMaría MD [address] [place] [address] Social History Tobacco Use Types [...] Historical ProviderMD - 08/16/2021 11:20 AM CDT [facility] Endo IntraOp Summary Primary Physician: LEO DOMINGUEZ MD Finalized Date/Time: 08/16/21 11:25:45 Pt. Name: CARIN LUCERO D.O.B./Sex: 1975 Female Med Rec #: [id number] Physician: EDUARD DE LOS SANTOS DO-INT Financial #: [id number] Pt. Type: I Room/Bed: [facility]/ Admit/Disch: 08/14/21 22:53:00 - Institution: [facility] Endo - Case Attendance Entry 1 Entry 2 Entry 3 Case Attendee LEO DOMINGUEZ MD MILLER, MELISSA A, RN PRESCOTT, JACHELE, Gasateria Attendant Role Performed Surgeon/Proceduralist, Quality Process Lead, First Scrub, First First Time In 08/16/21 [...] 5 Case Attendee EDILBERTO PATTERSON MD-DARLENE JUAREZ, HYDRAULIC PRESS OPERATOR Role Performed Anesthesiologist of HYDRAULIC PRESS OPERATOR/Nurse Personal Banking Assistant Record Time In 08/16/21 11:14:00 08/16/21 11:14:00 Time Out 08/16/21 11:28:00 08/16/21 11:28:00 Procedure EGD w Peg Tube Removal EGD w Peg Tube Removal / Change / Change Other Attendee Superficial Wound Closed By: Last Modified By: CARIN HILLS, CARIN WALKER RN 08/16/21 11:25:33 08/16/21 11:25:33 [facility] Endo - Case Attendance Audit 08/16/21 11:25:33 Automated Access Systems Technician: MONTSE Modifier: REINIERMA 1 <+> Time In [...] Peg Tube Removal / Change 08/16/21 11:16:30 Automated Access Systems Technician: MONTSE Modifier: MILLERMA <+> 2 Case Attendee <+> 2 Role Performed <+> 2 Procedure <+> 3 Case Attendee <+> 3 Role Performed <+> 3 Procedure <+> 4 Case Attendee <+> 4 Role Performed <+> 4 Procedure <+> 5 Case Attendee <+> 5 Role Performed <+> 5 Procedure [facility] Endo - Case times Entry 1 Patient In Room Time 08/16/21 11:14:00 Out Room Time 08/16/21 11:28:00 Anesthesia Start Time 08/16/21 11:14:00 Stop Time 08/16/21 11:28:00 Surgery / Procedure Times Start Time 08/16/21 11:20:00 Stop Time 08/16/21 11:25:00 Last Modified By: CARIN HILLS RN 08/16/21 11:25:31 [facility] Endo - Case times Audit 08/16/21 11:25:31 Automated Access Systems Technician: MILLERMA Modifier: MILLERMA <+> 1 Out Room Time <+> 1 Stop Time <+> 1 Stop Time 08/16/21 11:22:00 Automated Access Systems Technician: REINIERMA Modifier: MILLERMA <+> 1 Start Time [facility] Endo - Delays Entry 1 Delay Reason Other, No Delay Duration 0 Minute(s) Last Modified By: CARIN HILLS RN 08/16/21 11:16:39 [facility] Endo - Departure from OR Entry 1 Integumentary Assessment Integumentary WDL Assessment WDL Transfer/Handoff Transfer to PACU Phase I Handoff Method Bedside/Face to face Post-op Transport Stretcher/Gurney Via Patient Transport CARIN HILLS RN, Accompanied by DARLENE KENNY CRNA Last Modified By: CARIN HILLS RN 08/16/21 11:16:42 [facility] Endo - Endoscopy Details Entry 1 Abdomen Procedure Soft, Non-Tender Assessment Procedure Abdomen 08/16/21 11:16:00 Assessment D/T Radio Frequency Ablation Abdominal Pressure Last Modified By: CARIN HILLS RN 08/16/21 11:16:45 [facility] Endo - Explant Log Entry 1 Explant Log Removal Reason Infection Last Modified By: CARIN HILLS RN 08/16/21 11:18:35 [facility] Endo - Fire Risk Assessment Entry 1 [...] Modified By: CARIN HILLS RN 08/16/21 11:16:48 [facility] Endo - General Case Customer Relations Specialist 1 Case Information OR Endo 01 [facility] Case Level 1 Room Verified Yes Wound Class No Incision Specialty Gastroenterology Anesthesia Type General ASA Class 4 Diagnosis Preop Diagnosis infected peg Postop Same As Preop Yes Postop Diagnosis infected peg Wound Class Definitions Last Modified By: CARIN HILLS RN 08/16/21 11:17:34 [facility] Endo - Intraoperative Assessment Entry 1 Valid History / Yes Physical in Chart Preoperative Yes Checklist Reviewed/Evaluated Patient is Latex No Sensitive Level of WDL Consciousness (WDL = Alert, Oriented to Person, Place, and Time) Last Modified By: CARIN HILLS RN 08/16/21 11:17:36 [facility] Endo - Intraoperative Equipment Entry 1 Equipment Intraop Monitoring Electrocardiogram Three lead placement (ECG) Electrode Placement Blood Pressure Arm, left upper Location Pulse Oximeter Hand, right Probe Site Antiembolic Devices Scopes Flexible Endoscopes Gastroscope Used Scope Serial E Number/Identificatio n Number Photo/Video Documentation Photo Yes Video No Last Modified By: CARIN HILLS RN 08/16/21 11:17:43 [facility] Endo - Patient Positioning Entry 1 Procedure EGD w Peg Tube Removal / Change Body Position Supine Left Arm Position Resting at side Right Arm Position Resting at side Left Leg Position Uncrossed, parallel Right Leg Position Uncrossed, parallel Feet Uncrossed Yes Pressure Points Yes Checked Positioned By CARIN HILLS RN Position Verified Positioning Yes Verified by Surgeon Last Modified By: CARIN HILLS RN 08/16/21 11:17:45 [facility] Endo - Sign In Entry 1 Patient, Site, Yes Procedure Identified Surgical Consent Yes Confirmed Surgical Site N/A Marked by person performing procedure Airway Hypothermia Risk No Warming Measures No Taken Last Modified By: CARIN HILLS RN 08/16/21 11:17:51 [facility] Endo - Sign Out Entry 1 RN [...] Modified By: CARIN HILLS RN 08/16/21 11:25:42 [facility] Endo - Surgical Procedures Entry 1 Procedure EGD w Peg Tube Removal / Change Primary Procedure Yes Primary Surgeon LEO DOMINGUEZ MD Start 08/16/21 11:20:00 Stop 08/16/21 11:25:00 Anesthesia Type General Specialty Gastroenterology Wound Class No Incision Last Modified By: CARIN HILLS RN 08/16/21 11:25:43 [facility] Endo - Surgical Procedures Audit 08/16/21 11:25:43 Automated Access Systems Technician: REINIERLAWANDA Modifier: MONTSE <+> 1 Start <+> 1 Stop [facility] Endo - Time Out Entry 1 Procedure [...] RN 08/16/21 11:25 Electronically signed [address] Tomeka [facility] Conversion Tour Guide Cerner at 09/18/2022 9:26 AM CDT documented in this encounter Plan of Treatment Not on file documented as of this encounter Visit Diagnoses Not on filedocumented in this encounter
--- OUTSIDE RECORDS SUMMARY | 2025-01-03 13:37 | XMS_ITS | Encounter Summary ---
Author Organization [employer] ([place], [place], [place], [place]) Address [address] [place] [address] Care Team Providers Care Galley Cook Name Role Phone Unavailable Primary Care Provider Unavailabl e Encounter Details Date Type Department Care Team (Late st Contact Info) Description 08/16/2021 Transcribed Document [facility] [place] Family Medicine [facility] [place] [address] ProviderMaría MD [address] [place] [address] Social History Tobacco Use Types [...]
--- NOTE | 2025-01-03 13:38 | ED_ITS ---
Discharge Plan Disposition Patient Disposition: Admitted Discharge ED Provider: Sagar Brennan General Adult HPI <Leanna Fletcher APRN - Last Filed: 01/03/25 17:29> General Chief complaint: PAIN Stated complaint: AO-12/27 and 01/01- pain and swell R leg and L ankle Time Seen by Provider: 01/03/25 13:25 Mode of Arrival: Wheelchair Source of Information: Patient Description of Symptoms (Recalled from ER Triage Doc. by RN): PT REPORT LEFT ANKLE AND LEG PAIN WELL RIGHT LOWER LEG PAIN AFTER A FALL ON 12/27 AND AGAIN A FEW DAYS AFTER. PT SOA, PT ARRIVES WITHOUT HOME O2. PLACED ON 3.5L/NC BASELINE O2 History of Present Illness HPI narrative: patient is a 49-year-old female PMHx obesity, COPD with 3 L NC oxygen requirement, trach tube present, respiratory failure, HFpEF, diastolic dysfunction, LV EDP, current tobacco use, frequent falls, who presents to the ED with complaints of left ankle pain and right knee pain after her past few falls. Related Data Home Medications ?Medication ?Instructions ?Recorded ?Confirmed omeprazole 40 mg capsule,delayed 40 mg PO BID 12/04/24 01/03/25 release albuterol sulfate 90 mcg/actuation 2 inh inhalation Q6 HP PRN 12/07/24 01/03/25 aerosol inhaler (Ventolin HFA) shortness of breath or wheezing diazepam 5 mg tablet 5 mg PO BIDP PRN anxiety 10/2701/03/25 ondansetron 4 mg disintegrating 4 mg PO Q6HP PRN Nause a And 12/07/24 01/03/25 tablet Vomiting promethazine 25 mg tablet 25 mg PO TIDP PRN Nausea And 12/07/24 01/03/25 Vomiting quetiapine 100 mg tablet 200 mg PO HS 12/07/24 cyclobenzaprine 5 mg tablet 5 mg PO TID 01/03/2501/03 fluticasone propionate 50 1 spray intranasal DAILY 06/2901/03/25 mcg/actuation nasal spray,suspension (Flonase Allergy Relief) levothyroxine 25 mcg tablet 25 mcg PO DAILYDM 01/03/25 01/03/25 oxycodone-acetaminophen 10 mg-325 1 tab PO QIDP PRN Se iain Pain 01/03/25 01/03/25 mg tablet (Scale Score 7-10) rimegepant 75 mg disintegrating 75 mg PO Q48H 01/03/25 01/03/25 tablet (Nurtec ODT) sumatriptan succinate 100 mg tablet 100 mg PO DAILYP P RN Headache 01/03/25 01/03/25 torsemide 100 mg tablet 100 mg PO BIDL 01/03/2506/29 ziprasidone HCl 40 mg capsule 40 mg PO BID 01/03/25 Previous Rx's ?Medication ?Instructions ?Recorded losartan 25 mg tablet 25 mg PO DAILY #30 tabs 05/05 06/28 propranolol 10 mg tablet 10 mg PO BID #60 tabs rivaroxaban 10 mg tablet (Xarelto) 10 mg PO DAILY #10 tabs 07/26/24 linaclotide 145 mcg capsule 145 mcg PO DAILY #90 caps 08/13/24 (Linzess) lamotrigine 100 mg tablet 100 mg PO DAILY #30 tabs 01/27 spironolactone 50 mg tablet 50 mg PO DAILY 90 days #90 tabs 11/14/24 (Aldactone) magnesium sulfate 100 mg capsule 100 mg PO DAILY #30 c aps 12/09/24 tirzepatide (weight loss) 2.5 2.5 mg (0.5 mL) SQ WEEKL Y sleep 12/09/24 mg/0.5 mL subcutaneous pen apnea, morbid obesity #2 mL injector (Zepbound) fluticasone fur. 100 mcg-umeclid 1 inh inhalation TAMMY Y 90 days #90 12/16/24 62.5 mcg-vilant 25 mcg blisters inhalat.powder (Trelegy Ellipta) gabapentin 800 mg tablet 800 mg PO TID #90 tabs 12/17 terbinafine HCl 1 % topical cream 1 applic topical BID #30 grams 12/17/24 (Lamisil AT) duloxetine 30 mg capsule,delayed 90 mg (3 x 30 mg) PO DAILY #180 01/02/25 release caps Allergies Allergy/AdvReac Type Severity Reaction Status Date / Time doxycycline Allergy Severe Blister Verified 12/12/24 11:06 clindamycin Allergy Blister Verified 12/12/24 11:06 Sulfa (Sulfonamide AdvReac Intermediate Rash Verified 12/12/24 11:06 Antibiotics) amoxicillin AdvReac Other Verified 12/12/24 11:06 morphine AdvReac Headache Verified 12/12/24 11:06 nitrofurantoin (From AdvReac Other Verified 12/12/24 11:06 Macrobid) [facility] <Leanna Fletcher APRN - Last Filed: 01/03/25 17:29> [facility] Disclaimer: The information contained in this section may have been updated after the patient was seen, as this information can be updated by other users. Medical History Tracheostomy tube present pt has irritation in trachea site Low O2 saturation Cough Dermatitis Skin lesion Multiple substance abuse Degenerative disc disease, thoracic Acute exacerbation of chronic obstructive pulmonary disease Nausea and vomiting Abdominal pain Acute and chronic respiratory failure Obesity, morbid Deliberate self-cutting Otitis externa of left ear Dysphagia Hearing difficulty of left ear Otalgia, left ear Asthma Acute on chronic respiratory failure with hypoxia and hypercapnia Palpitations Ear pain, right Acute and chronic respiratory failure with hypercapnia PTSD (post-traumatic stress disorder) Chest pain Generalized anxiety disorder Recurrent major depression resistant to treatment Sleep apnea History of ectopic History of hyperkalemia Diastolic congestive heart failure Paranoid schizophrenia Uses bilevel positive airway pressure (BPAP) ventilation at home History of sleep apnea History of asthma Cellulitis of right lower extremity Acute and chronic respiratory failure with hypercapnia Pneumonia Acute and chronic respiratory failure Right lower lobe pneumonia History of smoking 30 or more pack years Obesity hypoventilation syndrome Chronic respiratory failure with hypercapnia Severe sepsis COVID-19 Acute and chronic respiratory failure Pneumonia Tracheostomy in place Edema Sinus tachycardia Dizziness Diastolic dysfunction Acute on chronic diastolic heart failure Respiratory failure with hypoxia and hypercapnia Congestive heart failure Acute on chronic diastolic heart failure Elevated d-dimer PAC (premature atrial contraction) Chest pain Dyspnea HTN (hypertension) COPD (chronic obstructive pulmonary disease) Tobacco abuse Abnormal stress test SOB (shortness of breath) Angina, class III Obesity Hypothyroidism (~11/21/17) Asthma Insomnia Depression Anxiety Neuropathy Surgical History History of tracheostomy july 2021 History of appendectomy History of cholecystectomy History of colonoscopy History of left knee surgery History of hysterectomy Family History Other No significant family history Social History (Updated 01/03/25 @ 17:11 by Hailey Suh RN) Smoking Status: Current some day smoker tobacco type: cigarettes packs per day: 1 pack-years: 20 smoking status stop date: 02/2022 alcohol intake: former substance use type: marijuana current occupational status: disabled Travel in the last 8 weeks?: None household members: family housing: apartment number of children: 0 current occupational exposures/hazards: No caffeine: Yes Have you lived/traveled outside [place] in past 30 days?: No Contact w/someone who lives/traveled outside US past 30 days?: No Exposure to someone with infectious disease in past 14 days?: No Do you have a fever (greater than 100.4 F or 38 C)?: No Have you tested positive for COVID-19?: No Exposed to someone with COVID-19 in past 14 days?: No Do you have a sore throat?: No Do you have a cough?: No Do you have any weakness?: No Do you have any diarrhea?: No Are you experiencing any unusual bleeding?: No Do you have any muscle aches/pain?: No Do you have any abdominal pain?: No Are you experiencing loss of taste or smell?: No Other Medical History Have you received the Flu Vaccine for this season: No Have you received the Pneumonia Vaccine: No <Leanna Fletcher APRN - Last Filed: 01/03/25 17:29> ROS Obtained: Yes Systems reviewed as appropriate & no additional complaints except as documented Physical Exam <Leanna Fletcher APRN - Last Filed: 01/03/25 17:29> General General appearance: alert and in no apparent distress Head Head exam: atraumatic Respiratory Respiratory exam: Present respiratory distress and other (Decreased bilaterally) Cardiovascular Cardiovascular exam: Present regular rate Abdominal Exam Abdominal exam: Present soft Extremities Exam Extremities exam: Present other (Generalized right knee tenderness, generalized left ankle tenderness) Neurological Exam Neurological exam: Present alert and oriented X3 Medical Decision Making <Leanna Fletcher APRN - Last Filed: 01/03/25 17:29> Medical Records Screening: Per USPSTF and CDC recommendations, given the prevalence of disease in our region, it is our hospital?s policy to screen for HIV and viral Hepatitis for all patients aged 18 and over and those with ongoing risk factors. [place] Inquiry Pt receiving controlled substance: No Vital Signs: 01/03/25 13:23 01/03/25 13:30 01/03/25 16:00 Temperature 98.0 F Temperature Source Oral Pulse Rate 100 H 91 H Pulse Rate [Radial] 88 Respiratory Rate 20 Blood Pressure 154/93 H 152/94 H Blood Pressure [Right Arm] 168/99 H Blood Pressure Mean [Right Arm] 122 Blood Pressure Source Blood Pressure Source [Right Arm] Automatic Cuff Blood Pressure Position Blood Pressure Position [Right Arm] Sitting 02 Sat by Pulse Oximetry 95 94 L 93 L Oxygen Delivery Method Nasal Cannula Nasal Cannula Nasal Cannula Oxygen Flow Rate (LPM) 3.5 3.5 3.5 01/03/25 16:15 01/03/25 16:21 01/03/25 16:27 Temperature 98.5 F Temperature Source Oral Pulse Rate 89 94 H 90 Pulse Rate [Radial] Respiratory Rate 20 Blood Pressure 152/94 H Blood Pressure [Right Arm] Blood Pressure Mean [Right Arm] Blood Pressure Source Automatic Cuff Blood Pressure Source [Right Arm] Blood Pressure Position Sitting Blood Pressure Position [Right Arm] 02 Sat by Pulse Oximetry 97 Oxygen Delivery Method Nasal Cannula Oxygen Flow Rate (LPM) 3.5 Lab Data Lab Results 01/03/25 13:34: VBG pH 7.29 L, VBG pCO2 71.1 H, VBG pO2 123.9 H, VBG HCO3 29.0, VBG Total CO2 31.2 H, VBG O2 Saturation 98.2 H, VBG Base Excess 1.4, VBG Lactic Acid 1.0 01/03/25 14:08: WBC 8.1, RBC 4.55, Hgb 12.2, Hct 40.3, MCV 88.6, MCH 26.8 L, M CHC 30.3 L, RDW 16.2, Plt Count 176, MPV 9.9, Neut % (Auto) 77.1, Lymph % (Auto) 13.5, [place] % (Auto) 7.1, Eos % (Auto) 1.5, Baso % (Auto) 0.2, Neut # (Auto) 6.2, Lymph # (Auto) 1.1, [place] # (Auto) 0.6, Eos # (Auto) 0.1, Baso # (Auto) 0.0, Sodium 140, Potassium 4.3, Chloride 104, Carbon Dioxide 31 H, Anion Gap 9.3, BUN 14, Creatinine 0.80, Estimated Creat Clear 63, Estimated GFR 76, Est GFR ( Amer) 92, Glucose 125 H, Calcium 8.8, Total Bilirubin 0.2, AST 22, ALT 14, Alkaline Phosphatase 78, Troponin I < 0.01, NT-Pro-B Natriuret Pep 338 H, Total Protein 7.2, Albumin 3.9, Globulin 3.3 H, Albumin/Globulin Ratio 1.2, HCV Ab CONSTANTINE w/Rflx PCR Qn Negative, HIV Ag/Ab Combo Qual Negative 01/04/25 05:45 01/04/25 05:45 Orders (Tests/Meds): ED MEDICATIONS Generic Name Dose Route Start Last Admin Trade Name Freq PRN Reason Stop Dose Admin Acetaminophen 650 mg 01/03/25 15:55 01/03/25 17:14 Acetaminophen 325mg Tab PO 02/02/25 15:54 650 mg Q4HP PRN Administration Fever or Mild Pain (1-3) Acetylcysteine 1 ml 01/03/25 22:39 01/03/25 23:31 Acetylcysteine 20% 4ml Vial 02/02/25 22:38 1 ml QIDP PRN Administration Secretions Albuterol/Ipratropium 3 ml 01/04/25 00:00 01/04/25 06:44 Ipratropium/Albuterol 3 Ml [facility] 02/03/25 00:00 3 ml Q6RT GERMAN Administration Albuterol/Ipratropium 3 ml 01/03/25 22:41 01/03/25 23:31 Ipratropium/Albuterol 3 Ml [facility] 02/02/25 22:40 3 ml Q6HP PRN Administration Shortness Of Breath Cyclobenzaprine HCl 5 mg 01/04/25 09:00 Cyclobenzaprine 10mg Tablet PO 02/03/25 08:59 TID GERMAN Diazepam 5 mg 01/03/25 18:27 01/03/25 18:42 Diazepam 5mg Tablet PO 02/02/25 18:26 5 mg BIDP PRN Administration Anxiety Duloxetine HCl 90 mg 01/03/25 18:30 01/03/25 21:09 Duloxetine 30mg Capsule. PO 02/02/25 18:29 Not Given DAILY GERMAN Fluticasone Propionate 1 spray 01/03/25 18:30 01/03/25 18:57 Fluticasone Prop 50mcg Nasal [place]mer 16gm NS 02/02/25 18:29 Not Given DAILY GERMAN Fluticasone/Umeclidinium/Vilanterol 1 puff 01/03/25 18:30 01/03/25 19:50 Fluticasone/Umeclidin/Vilanter 100/62.5/25mcg Inhaler IH 02/02/25 18:29 Not Given DAILY GERMAN Gabapentin 800 mg 01/03/25 21:00 01/03/25 20:23 Gabapentin 800mg Tablet PO 02/02/25 20:59 800 mg TID GERMAN Administration Heparin Sodium (Porcine) 5,000 unit 01/03/25 21:00 01/03/25 20:22 Heparin Sodium 5,000 Unit/Ml Vial SUBCUT 02/02/25 20:59 5,000 unit TID GERMAN Administration Levofloxacin/Dextrose 750 mg in 150 mls @ 100 mls/hr 01/03/25 15:15 01/03/25 16:00 Levofloxacin 750mg/150ml Premix IV 01/13/25 15:14 100 mls/hr Q24H GERMAN Administration Cefepime HCl 2 gm/ Sodium 100 mls @ 200 mls/hr 01/03/25 18:45 01/04/25 02:46 Chloride IV 01/13/25 18:44 200 mls/hr Q8H GERMAN Administration Lamotrigine 100 mg 01/03/25 18:30 01/03/25 21:09 Lamotrigine 100mg Tablet PO 02/02/25 18:29 100 mg DAILY GERMAN Administration Levothyroxine Sodium 25 mcg 01/04/25 07:00 01/04/25 06:30 Levothyroxine 25mcg (0.025mg) Tab PO 02/03/25 06:59 Not Given DAILYDM GERMAN Methylprednisolone Sodium Succinate 40 mg 01/03/25 18:45 01/04/25 02:54 Methylprednisolone Sod Succ 40mg Vial IV 02/02/25 18:44 40 mg Q8H GERMAN Administration Miscellaneous 1 each 01/03/25 18:45 01/03/25 18:49 Vancomycin Consult Request NOTAPPLIC 02/02/25 18:44 1 each CONSULT PHARMACY GERMAN Administration Non-Formulary Medication 145 mcg 01/03/25 18:30 01/03/25 18:51 Linaclotide [Linzess] PO 02/02/25 18:29 Not Given DAILY GERMAN Non-Formulary Medication 100 mg 01/03/25 18:30 01/03/25 21:10 Magnesium Sulfate PO 02/02/25 18:29 Not Given DAILY GERMAN Non-Formulary Medication 75 mg 01/03/25 18:30 01/03/25 21:26 Rimegepant [Nurtec Odt] PO 02/02/25 18:29 Not Given Q48H GERMAN Ondansetron HCl 4 mg 01/03/25 15:55 Ondansetron 4mg/2ml Vial IV 02/02/25 15:54 Q8HP PRN Nausea Oxycodone/Acetaminophen 1 each 01/03/25 18:27 01/03/25 18:42 Oxycodone 10mg W/Apap 325mg Tablet PO 02/02/25 18:26 1 each QIDP PRN Administration Severe Pain (Scale Score 7-10) Pantoprazole Sodium 40 mg 01/03/25 21:00 01/03/25 20:23 Pantoprazole 40mg Tablet PO 02/02/25 20:59 40 mg BID GERMAN Administration Promethazine HCl 25 mg 01/03/25 18:27 Promethazine 25mg Tablet PO 02/02/25 18:26 TIDP PRN Nausea And Vomiting Quetiapine Fumarate 200 mg 01/03/25 21:00 01/03/25 21:10 Quetiapine 100mg Tablet PO 02/02/25 20:59 200 mg HS GERMAN Administration Rivaroxaban 10 mg 01/03/25 18:30 01/03/25 21:09 Rivaroxaban 10mg Tablet PO 02/02/25 18:29 10 mg DAILY GERMAN Administration Sodium Chloride 3 ml 01/03/25 17:28 01/03/25 23:53 Sodium Chloride 3% 15ml Neb IH 02/02/25 17:27 3 ml ONCE PRN Administration IN[employer]CE [employer] Spironolactone 50 mg 01/04/25 09:00 Spironolactone 25mg Tablet PO 02/03/25 08:59 DAILY GERMAN Sumatriptan Succinate 100 mg 01/04/25 06:31 Sumatriptan Succinate 25mg Tablet PO 02/03/25 06:30 DAILYP PRN Headache Terbinafine HCl 0 gm 01/03/25 21:00 Terbinafine 1% Cream 12gm Tube TP 02/02/25 20:59 BID GERMAN Ziprasidone 40 mg 01/04/25 09:00 Ziprasidone 20mg Capsule PO 02/03/25 08:59 BID GERMAN Discontinued Medications Generic Name Dose Route Start Last Admin Trade Name Burtonq PRN Reason Stop Dose Admin Albuterol/Ipratropium 3 ml 01/03/25 13:37 01/03/25 13:35 Ipratropium/Albuterol 3 Ml Neb IH 01/03/25 13:38 3 ml ONCE ONE Administration Bumetanide 2 mg 01/03/25 19:17 01/03/25 20:22 Bumetanide 1mg/4ml Vial IV 01/03/25 19:18 2 mg ONCE ONE Administration Vancomycin HCl 2,500 mg/ 500 mls @ 250 mls/hr 01/03/25 19:00 01/03/25 23:43 Sodium Chloride IV 01/03/25 20:59 Not Given ONCE ONE Vancomycin/PEG/NADA/Lysine/Water 1.5 gm in 300 mls @ 150 mls/hr 01/03/25 20:45 01/03/25 21:09 Vancomycin 1.5gm/300ml (Peg) Premix IV 01/03/25 22:44 150 mls/hr ONCE ONE Administration Vancomycin/PEG/NADA/Lysine/Water 1.5 gm in 300 mls @ 150 mls/hr 01/03/25 22:45 01/03/25 23:29 Vancomycin 1.5gm/300ml (Peg) Premix IV 01/04/25 00:44 150 mls/hr ONCE ONE Administration Non-Formulary Medication 5 mg 01/03/25 21:00 01/03/25 21:10 Cyclobenzaprine PO 02/02/25 20:59 5 mg TID GERMAN Administration Non-Formulary Medication 25 mg 01/03/25 18:30 01/03/25 21:10 Losartan PO 02/02/25 18:29 Not Given DAILY GERMAN Non-Formulary Medication 10 mg 01/03/25 21:00 01/03/25 20:24 Propranolol PO 02/02/25 20:59 10 mg BID GERMAN Administration Non-Formulary Medication 50 mg 01/03/25 18:30 01/03/25 20:23 Spironolactone [Aldactone] PO 02/02/25 18:29 50 mg DAILY GERMAN Administration Non-Formulary Medication 2.5 mg 01/03/25 18:30 01/03/25 20:14 Tirzepatide (Weight Loss) [Zepbound] SUBCUT 02/02/25 18:29 Not Given WEEKLY GERMAN Non-Formulary Medication 100 mg 01/03/25 18:30 01/03/25 23:29 Torsemide PO 02/02/25 18:29 Not Given BIDL GERMAN Non-Formulary Medication 40 mg 01/03/25 21:00 01/03/25 21:12 Ziprasidone Hcl PO 02/02/25 20:59 40 mg BID GERMAN Administration ORDERS Category Date Time Status Ankle XR - Left minimum 3 Views [XR ankle LT min 3V] Exams 01/03/25 13:34 Completed Stat CXR --portable [XR chest portable] Stat Exams 01/03/25 13:34 Completed Knee XR right 3 views [XR knee RT 3V] Stat Exams 01/03/25 13:34 Completed BNP [NT Pro Brain Natriuretic Pep.] Stat Lab 01/03/25 14:08 Completed Basic Metabolic Panel AMLAB Lab 01/04/25 05:45 Completed Basic Metabolic Panel AMLAB Lab 01/05/25 06:00 Ordered Basic Metabolic Panel AMLAB Lab 01/06/25 06:00 Ordered CBC w/Auto Diff [Complete Blood Count Auto Diff] Stat Lab 01/03/25 14:08 Completed CMP [Comprehensive Metabolic Panel] Stat Lab 01/03/25 14:08 Completed Complete Blood Count Auto Diff AMLAB Lab 01/04/25 05:45 Results Complete Blood Count Auto Diff AMLAB Lab 01/05/25 06:00 Ordered Complete Blood Count Auto Diff AMLAB Lab 01/06/25 06:00 Ordered HIV Combo Stat Lab 01/03/25 14:08 Completed Hepatitis C Ab Qual. W/ RFX Stat Lab 01/03/25 14:08 Completed Trop I [Troponin I] Stat Lab 01/03/25 14:08 Completed Troponin I Q3H Lab 01/03/25 16:52 Completed Troponin I Q3H Lab 01/03/25 19:50 Completed Blood Culture Stat Micro 01/03/25 15:34 Received VBG [Venous Blood Gas] Stat RT 01/03/25 13:34 Completed Medical Decision Narrative: In summary, patient is a 49-year-old female PMHx obesity, COPD with 3 L NC oxygen requirement, trach tube present, respiratory failure, HFpEF, diastolic dysfunction, LV EDP, current tobacco use, frequent falls, who presents to the ED with complaints of left ankle pain and right knee pain after her past few falls. She is ambulatory at home with assistive device. Patient states she did not fall this morning however her left ankle and right knee are hurting worse today. Patient states she intermittently wears her oxygen at home and her oxygen saturation has been in the 60s. Patient states she was recently in the ICU here at [facility] for respiratory failure, recently completed a course of antibiotics approximately 4 days ago for pneumonia. Upon initial presentation, patient's oxygen is 80% without oxygen on, patient placed immediately on her 3L NC and oxygen increased to 94%. Patient is in respiratory distress, speaks 2-3 word sentences, decreased breath sounds bilaterally. Patient states this is similar to her baseline respiratory status. Denies fever, chills, head injury, decreased LOC, chest pain, abdominal pain, nausea, vomiting. Differential diagnosis include ACS, dissection, pulmonary embolism, pneumothorax, COPD exacerbation, infectious process, sepsis, among others. Discussed with patient we will proceed with labs and chest x-ray. Will symptomatically manage with DuoNeb and evaluate after VBG result. She is agreeable to plan of care at this time. CBC unremarkable for any leukocytosis, stable H&H. CMP remarkable for CO2 31, glucose 125. First troponin < 0.01. proBNP 338. VBG remarkable for pH 7.29, CO2 71.1, O2 123.9, lactic acid 1. Formal review of the chest x-ray remarkable for worsening bibasilar opacities. Formal read of the ankle x-ray unremarkable for anything acute. Records reviewed, recent admission was remarkable for polymicrobial sputum culture, patient was changed to Levaquin to cover hypercapnic respiratory failure with pneumonia at that time. Discussed with patient she will be placed on the BiPAP, her trach collar is uncuffed, respiratory is agreeable to allow patient to use her BiPAP that she has at home. Patient was placed on vancomycin and Levaquin. Discussed with Dr. Sadler patient will need admitted to the ICU. He is agreeable at this time. Patient is agreeable to stay. <Sagar Brennan MD - Last Filed: 01/04/25 07:39> Vital Signs: 01/03/25 13:23 01/03/25 13:30 01/03/25 16:00 Temperature 98.0 F Temperature Source Oral Pulse Rate 100 H 91 H Pulse Rate [Radial] 88 Respiratory Rate 20 Blood Pressure 154/93 H 152/94 H Blood Pressure [Right Arm] 168/99 H Blood Pressure Mean [Right Arm] 122 Blood Pressure Source Blood Pressure Source [Right Arm] Automatic Cuff Blood Pressure Position Blood Pressure Position [Right Arm] Sitting 02 Sat by Pulse Oximetry 95 94 L 93 L Oxygen Delivery Method Nasal Cannula Nasal Cannula Nasal Cannula Oxygen Flow Rate (LPM) 3.5 3.5 3.5 01/03/25 16:15 01/03/25 16:21 01/03/25 16:27 Temperature 98.5 F Temperature Source Oral Pulse Rate 89 94 H 90 Pulse Rate [Radial] Respiratory Rate 20 Blood Pressure 152/94 H Blood Pressure [Right Arm] Blood Pressure Mean [Right Arm] Blood Pressure Source Automatic Cuff Blood Pressure Source [Right Arm] Blood Pressure Position Sitting Blood Pressure Position [Right Arm] 02 Sat by Pulse Oximetry 97 Oxygen Delivery Method Nasal Cannula Oxygen Flow Rate (LPM) 3.5 Lab Data Lab Results 01/03/25 13:34: VBG pH 7.29 L, VBG pCO2 71.1 H, VBG pO2 123.9 H, VBG HCO3 29.0, VBG Total CO2 31.2 H, VBG O2 Saturation 98.2 H, VBG Base Excess 1.4, VBG Lactic Acid 1.0 01/03/25 14:08: WBC 8.1, RBC 4.55, Hgb 12.2, Hct 40.3, MCV 88.6, MCH 26.8 L, M CHC 30.3 L, RDW 16.2, Plt Count 176, MPV 9.9, Neut % (Auto) 77.1, Lymph % (Auto) 13.5, [place] % (Auto) 7.1, Eos % (Auto) 1.5, Baso % (Auto) 0.2, Neut # (Auto) 6.2, Lymph # (Auto) 1.1, [place] # (Auto) 0.6, Eos # (Auto) 0.1, Baso # (Auto) 0.0, Sodium 140, Potassium 4.3, Chloride 104, Carbon Dioxide 31 H, Anion Gap 9.3, BUN 14, Creatinine 0.80, Estimated Creat Clear 63, Estimated GFR 76, Est GFR ( Amer) 92, Glucose 125 H, Calcium 8.8, Total Bilirubin 0.2, AST 22, ALT 14, Alkaline Phosphatase 78, Troponin I < 0.01, NT-Pro-B Natriuret Pep 338 H, Total Protein 7.2, Albumin 3.9, Globulin 3.3 H, Albumin/Globulin Ratio 1.2, HCV Ab CONSTANTINE w/Rflx PCR Qn Negative, HIV Ag/Ab Combo Qual Negative Orders (Tests/Meds): ED MEDICATIONS Generic Name Dose Route Start Last Admin Trade Name Freq PRN Reason Stop Dose Admin Acetaminophen 650 mg 01/03/25 15:55 01/03/25 17:14 Acetaminophen 325mg Tab PO 02/02/25 15:54 650 mg Q4HP PRN Administration Fever or Mild Pain (1-3) Acetylcysteine 1 ml 01/03/25 22:39 01/03/25 23:31 Acetylcysteine 20% 4ml Vial 02/02/25 22:38 1 ml QIDP PRN Administration Secretions Albuterol/Ipratropium 3 ml 01/04/25 00:00 01/04/25 06:44 Ipratropium/Albuterol 3 Ml [facility] 02/03/25 00:00 3 ml Q6RT GERMAN Administration Albuterol/Ipratropium 3 ml 01/03/25 22:41 01/03/25 23:31 Ipratropium/Albuterol 3 Ml [facility] 02/02/25 22:40 3 ml Q6HP PRN Administration Shortness Of Breath Cyclobenzaprine HCl 5 mg 01/04/25 09:00 Cyclobenzaprine 10mg Tablet PO 02/03/25 08:59 TID GERMAN Diazepam 5 mg 01/03/25 18:27 01/03/25 18:42 Diazepam 5mg Tablet PO 02/02/25 18:26 5 mg BIDP PRN Administration Anxiety Duloxetine HCl 90 mg 01/03/25 18:30 01/03/25 21:09 Duloxetine 30mg Capsule. PO 02/02/25 18:29 Not Given DAILY GERMAN Fluticasone Propionate 1 spray 01/03/25 18:30 01/03/25 18:57 Fluticasone Prop 50mcg Nasal [place] 16gm NS 02/02/25 18:29 Not Given DAILY GERMAN Fluticasone/Umeclidinium/Vilanterol 1 puff 01/03/25 18:30 01/03/25 19:50 Fluticasone/Umeclidin/Vilanter 100/62.5/25mcg Inhaler IH 02/02/25 18:29 Not Given DAILY GERMAN Gabapentin 800 mg 01/03/25 21:00 01/03/25 20:23 Gabapentin 800mg Tablet PO 02/02/25 20:59 800 mg TID GERMAN Administration Heparin Sodium (Porcine) 5,000 unit 01/03/25 21:00 01/03/25 20:22 Heparin Sodium 5,000 Unit/Ml Vial SUBCUT 02/02/25 20:59 5,000 unit TID GERMAN Administration Levofloxacin/Dextrose 750 mg in 150 mls @ 100 mls/hr 01/03/25 15:15 01/03/25 16:00 Levofloxacin 750mg/150ml Premix IV 01/13/25 15:14 100 mls/hr Q24H GERMAN Administration Cefepime HCl 2 gm/ Sodium 100 mls @ 200 mls/hr 01/03/25 18:45 01/04/25 02:46 Chloride IV 01/13/25 18:44 200 mls/hr Q8H GERMAN Administration Lamotrigine 100 mg 01/03/25 18:30 01/03/25 21:09 Lamotrigine 100mg Tablet PO 02/02/25 18:29 100 mg DAILY GERMAN Administration Levothyroxine Sodium 25 mcg 01/04/25 07:00 01/04/25 06:30 Levothyroxine 25mcg (0.025mg) Tab PO 02/03/25 06:59 Not Given DAILY GERMAN Methylprednisolone Sodium Succinate 40 mg 01/03/25 18:45 01/04/25 02:54 Methylprednisolone Sod Succ 40mg Vial IV 02/02/25 18:44 40 mg Q8H GERMAN Administration Miscellaneous 1 each 01/03/25 18:45 01/03/25 18:49 Vancomycin Consult Request NOTAPPLIC 02/02/25 18:44 1 each CONSULT PHARMACY GERMAN Administration Non-Formulary Medication 145 mcg 01/03/25 18:30 01/03/25 18:51 Linaclotide [Linzess] PO 02/02/25 18:29 Not Given DAILY GERMAN Non-Formulary Medication 100 mg 01/03/25 18:30 01/03/25 21:10 Magnesium Sulfate PO 02/02/25 18:29 Not Given DAILY GERMAN Non-Formulary Medication 75 mg 01/03/25 18:30 01/03/25 21:26 Rimegepant [Nurtec Odt] PO 02/02/25 18:29 Not Given Q48H GERMAN Ondansetron HCl 4 mg 01/03/25 15:55 Ondansetron 4mg/2ml Vial IV 02/02/25 15:54 Q8HP PRN Nausea Oxycodone/Acetaminophen 1 each 01/03/25 18:27 01/03/25 18:42 Oxycodone 10mg W/Apap 325mg Tablet PO 02/02/25 18:26 1 each QIDP PRN Administration Severe Pain (Scale Score 7-10) Pantoprazole Sodium 40 mg 01/03/25 21:00 01/03/25 20:23 Pantoprazole 40mg Tablet PO 02/02/25 20:59 40 mg BID GERMAN Administration Promethazine HCl 25 mg 01/03/25 18:27 Promethazine 25mg Tablet PO 02/02/25 18:26 TIDP PRN Nausea And Vomiting Quetiapine Fumarate 200 mg 01/03/25 21:00 01/03/25 21:10 Quetiapine 100mg Tablet PO 02/02/25 20:59 200 mg HS GERMAN Administration Rivaroxaban 10 mg 01/03/25 18:30 01/03/25 21:09 Rivaroxaban 10mg Tablet PO 02/02/25 18:29 10 mg DAILY GERMAN Administration Sodium Chloride 3 ml 01/03/25 17:28 01/03/25 23:53 Sodium Chloride 3% 15ml Neb IH 02/02/25 17:27 3 ml ONCE PRN Administration INDUCE SPUTUM COLLECTION Spironolactone 50 mg 01/04/25 09:00 Spironolactone 25mg Tablet PO 02/03/25 08:59 DAILY GERMAN Sumatriptan Succinate 100 mg 01/04/25 06:31 Sumatriptan Succinate 25mg Tablet PO 02/03/25 06:30 DAILYP PRN Headache Terbinafine HCl 0 gm 01/03/25 21:00 Terbinafine 1% Cream 12gm Tube TP 02/02/25 20:59 BID GERMAN Ziprasidone 40 mg 01/04/25 09:00 Ziprasidone 20mg Capsule PO 02/03/25 08:59 BID GERMAN Discontinued Medications Generic Name Dose Route Start Last Admin Trade Name Burtonq PRN Reason Stop Dose Admin Albuterol/Ipratropium 3 ml 01/03/25 13:37 01/03/25 13:35 Ipratropium/Albuterol 3 Ml Neb IH 01/03/25 13:38 3 ml ONCE ONE Administration Bumetanide 2 mg 01/03/25 19:17 01/03/25 20:22 Bumetanide 1mg/4ml Vial IV 01/03/25 19:18 2 mg ONCE ONE Administration Vancomycin HCl 2,500 mg/ 500 mls @ 250 mls/hr 01/03/25 19:00 01/03/25 23:43 Sodium Chloride IV 01/03/25 20:59 Not Given ONCE ONE Vancomycin/PEG/NADA/Lysine/Water 1.5 gm in 300 mls @ 150 mls/hr 01/03/25 20:45 01/03/25 21:09 Vancomycin 1.5gm/300ml (Peg) Premix IV 01/03/25 22:44 150 mls/hr ONCE ONE Administration Vancomycin/PEG/NADA/Lysine/Water 1.5 gm in 300 mls @ 150 mls/hr 01/03/25 22:45 01/03/25 23:29 Vancomycin 1.5gm/300ml (Peg) Premix IV 01/04/25 00:44 150 mls/hr ONCE ONE Administration Non-Formulary Medication 5 mg 01/03/25 21:00 01/03/25 21:10 Cyclobenzaprine PO 02/02/25 20:59 5 mg TID GERMAN Administration Non-Formulary Medication 25 mg 01/03/25 18:30 01/03/25 21:10 Losartan PO 02/02/25 18:29 Not Given DAILY GERMAN Non-Formulary Medication 10 mg 01/03/25 21:00 01/03/25 20:24 Propranolol PO 02/02/25 20:59 10 mg BID GERMAN Administration Non-Formulary Medication 50 mg 01/03/25 18:30 01/03/25 20:23 Spironolactone [Aldactone] PO 02/02/25 18:29 50 mg DAILY GERMAN Administration Non-Formulary Medication 2.5 mg 01/03/25 18:30 01/03/25 20:14 Tirzepatide (Weight Loss) [Zepbound] SUBCUT 02/02/25 18:29 Not Given WEEKLY GERMAN Non-Formulary Medication 100 mg 01/03/25 18:30 01/03/25 23:29 Torsemide PO 02/02/25 18:29 Not Given BIDL GERMAN Non-Formulary Medication 40 mg 01/03/25 21:00 01/03/25 21:12 Ziprasidone Hcl PO 02/02/25 20:59 40 mg BID GERMAN Administration ORDERS Category Date Time Status Ankle XR - Left minimum 3 Views [XR ankle LT min 3V] Exams 01/03/25 13:34 Completed Stat CXR --portable [XR chest portable] Stat Exams 01/03/25 13:34 Completed Knee XR right 3 views [XR knee RT 3V] Stat Exams 01/03/25 13:34 Completed BNP [NT Pro Brain Natriuretic Pep.] Stat Lab 01/03/25 14:08 Completed Basic Metabolic Panel AMLAB Lab 01/04/25 05:45 Completed Basic Metabolic Panel AMLAB Lab 01/05/25 06:00 Ordered Basic Metabolic Panel AMLAB Lab 01/06/25 06:00 Ordered CBC w/Auto Diff [Complete Blood Count Auto Diff] Stat Lab 01/03/25 14:08 Completed CMP [Comprehensive Metabolic Panel] Stat Lab 01/03/25 14:08 Completed Complete Blood Count Auto Diff AMLAB Lab 01/04/25 05:45 Results Complete Blood Count Auto Diff AMLAB Lab 01/05/25 06:00 Ordered Complete Blood Count Auto Diff AMLAB Lab 01/06/25 06:00 Ordered HIV Combo Stat Lab 01/03/25 14:08 Completed Hepatitis C Ab Qual. W/ RFX Stat Lab 01/03/25 14:08 Completed Trop I [Troponin I] Stat Lab 01/03/25 14:08 Completed Troponin I Q3H Lab 01/03/25 16:52 Completed Troponin I Q3H Lab 01/03/25 19:50 Completed Blood Culture Stat Micro 01/03/25 15:34 Received VBG [Venous Blood Gas] Stat RT 01/03/25 13:34 Completed ECG Data Tracing #1: I reviewed this ECG and interpreted as documented below: Normal sinus rhythm. No ST elevation or depression. No inverted T waves Medical Decision Narrative: In summary, patient is a 49-year-old female PMHx obesity, COPD with 3 L NC oxygen requirement, trach tube present, respiratory failure, HFpEF, diastolic dysfunction, LV EDP, current tobacco use, frequent falls, who presents to the ED with complaints of left ankle pain and right knee pain after her past few falls. She is ambulatory at home with assistive device. Patient states she did not fall this morning however her left ankle and right knee are hurting worse today. Patient states she intermittently wears her oxygen at home and her oxygen saturation has been in the 60s. Patient states she was recently in the ICU here at [facility] for respiratory failure, recently completed a course of antibiotics approximately 4 days ago for pneumonia. Upon initial presentation, patient's oxygen is 80% without oxygen on, patient placed immediately on her 3L NC and oxygen increased to 94%. Patient is in respiratory distress, speaks 2-3 word sentences, decreased breath sounds bilaterally. Patient states this is similar to her baseline respiratory status. Denies fever, chills, head injury, decreased LOC, chest pain, abdominal pain, nausea, vomiting. Differential diagnosis include ACS, dissection, pulmonary embolism, pneumothorax, COPD exacerbation, infectious process, sepsis, among others. Discussed with patient we will proceed with labs and chest x-ray. Will symptomatically manage with DuoNeb and evaluate after VBG result. She is agreeable to plan of care at this time. CBC unremarkable for any leukocytosis, stable H&H. CMP remarkable for CO2 31, glucose 125. First troponin < 0.01. proBNP 338. VBG remarkable for pH 7.29, CO2 71.1, O2 123.9, lactic acid 1. Formal review of the chest x-ray remarkable for worsening bibasilar opacities. Formal read of the ankle x-ray unremarkable for anything acute. Records reviewed, recent admission was remarkable for polymicrobial sputum culture, patient was changed to Levaquin to cover hypercapnic respiratory failure with pneumonia at that time. Discussed with patient she will be placed on the BiPAP, her trach collar is uncuffed, respiratory is agreeable to allow patient to use her BiPAP that she has at home. Patient was placed on vancomycin and Levaquin. Discussed with Dr. Doroteo patient will need admitted to the ICU. He is agreeable at this time. Patient is agreeable to stay. I was consulted by the DANIA, and we discussed the complexity of the problems being addressed. I approve the treatment and management plan for this patient's care in the emergency department, thus performing a substantive portion of the medical decision making. Sagar Brennan MD Critical Care <Leanna Fletcher, TERRITORY ACCOUNT MANAGER - Last Filed: 01/03/25 17:29> Critical Care Time Critical Care Time: No
--- OUTSIDE RECORDS SUMMARY | 2025-01-03 13:38 | XMS_ITS | Encounter Summary ---
Author Organization [employer] ([place], [place], [place], [place]) Address [address] [place] [address] Care Team Providers Care Irs Agent Name Role Phone Unavailable Primary Care Provider Unavailabl e Encounter Details Date Type Department Care Team (Late st Contact Info) Description 08/14/2021 Transcribed Document [facility] [place] [facility] [place] [address] ProviderMaría MD [facility] [place] [address] Social History Tobacco Use Types [...] - Historical Provider, - 08/14/2021 11:19 PM ANESTHESIA TECHNICIAN Evaluation, Occupational Therapy Entered On: 08/15/2021 15:01 [...] abdominal pain Therapy Diagnosis, OT : Decreased [place] with ADLs secondary to generalized weakness Onset [...] JANIS PANDYA OTR/Az - 08/15/2021 14:38 EDT Alf Goals, OT Grooming LTG Grid Goal #1 Activity : Grooming Assist : Independent, modified Date to Meet : 08/29/2021 EDT Goal Status : Initial goal Comment : Standing JANIS PANDYA OTR/L - 08/15/2021 14:38 EDT Dressing, Lower Body LTG Grid Goal #1 Activity : Dressing, Lower Body Assist : Independent, modified Equipment : Long Handled Tree Pruner, Sock aid, Long handled shoehorn Date to [...] date due to pain. Attempted to consult central supply supervisor, however pt denied. RN notified of pt [...] JANIS PANDYA OTR/Az - 08/15/2021 14:38 EDT [place] OT Charges OT Eval Moderate Complexity : 1 JANIS PANDYA OTR/Az - 08/15/2021 14:38 EDT documented in this encounter Plan of Treatment Not on file documented as of this encounter Visit Diagnoses Not on filedocumented in this encounter
--- OUTSIDE RECORDS SUMMARY | 2025-01-03 13:38 | XMS_ITS | Encounter Summary ---
Author Organization [employer] ([place], [place], [place], [place]) Address [address] [place] [address] Care Team Providers Care Hostage Negotiator Name Role Phone Unavailable Primary Care Provider Unavailabl e Encounter Details Date Type Department Care Team (Late st Contact Info) Description 08/15/2021 Transcribed Document [facility] [place] Medicine [facility] [place] [address] ProviderMaría MD [facility] [place] [address] Social History Tobacco Use Types [...] - Historical ProviderMD - 08/15/2021 12:24 AM RENAL SOCIAL WORKER ED Discharge Entered On: 08/15/2021 0:24 EST Performed On: 08/15/2021 0:24 EST by Brittanie Murdock RN Discharge Process Patient Disposition : Admit/Observe Personal Belongings With Patient : Yes IV Discontinued : No Nursing Documentation Completed : Yes Brittanie Murdock RN - 08/15/2021 0:24 EST Admission, ED Nurse Report Accepted By : Rita CMNEIL `Nurse Report (Hand Off) : Called Accompanied By, Discharge : Unaccompanied Fluids/Drips Continued on Admission : Yes Mode Of Departure : Brittanie Thomas RN - 08/15/2021 0:24 EST Electronically signed by Tomeka [facility] Conversion Project Portfolio Analyst Cerner at 09/18/2022 8:57 AM CDT documented in this encounter Plan of Treatment Not on file documented as of this encounter Visit Diagnoses Not on filedocumented in this encounter
--- OUTSIDE RECORDS SUMMARY | 2025-01-03 13:38 | XMS_ITS | Encounter Summary ---
Author Organization [employer] ([place], [place], [place], [place]) Address [address] [place] [address] Care Team Providers Care Biofuels Plant Construction Worker Name Role Phone Unavailable Primary Care Provider Unavailabl e Encounter Details Date Type Department Care Team (Late st Contact Info) Description 08/15/2021 Transcribed Document [facility] [place] [address] [place] [address] ProviderMaría MD [address], [place] [id number] Social History Tobacco Use Types Packs/Day Years [...] On: 08/15/2021 7:00 EDT by Sandy Owens [facility] Phone Call for Consults Consult Phone Call/Page Attempt : First call Consult Reason : Infected peg tube Physician Requested for Consult : FARIBA LINARES MD-[facility] Provider Service Notified Name : Gastroenterology Date and Time Call Returned : 08/15/2021 8:19 EDT Sandy Owens [facility] - 08/15/2021 8:19 EDT documented in this encounter Plan of Treatment Not on file documented as of this encounter Visit Diagnoses Not on filedocumented in this encounter
--- OUTSIDE RECORDS SUMMARY | 2025-01-03 13:38 | XMS_ITS | Encounter Summary ---
Author Organization [employer] ([place], [place], [place], [place]) Address [address] [place] [address] Care Team Providers Care Supervisor Insecticide Name Role Phone Unavailable Primary Care Provider Unavailabl e Encounter Details Date Type Department Care Team (Late st Contact Info) Description 09/30/2021 Transcribed Document [facility] [place] [address] [place] [address] ProviderMraía MD [address] [place] [address] Social History Tobacco Use Types [...]
--- OUTSIDE RECORDS SUMMARY | 2025-01-03 13:38 | XMS_ITS | Encounter Summary ---
Author Organization [employer] ([place], [place], [place], [place]) Address [address] [place] [address] Care Team Providers Care Microsoft Office Instructor Name Role Phone Unavailable Primary Care Provider Unavailabl e Encounter Details Date Type Department Care Team (Late st Contact Info) Description 08/14/2021 Transcribed Document [facility] [place] [address] ProviderMaría MD [address] [place] [address] Social History Tobacco Use Types [...] - Historical ProviderMD - 08/14/2021 6:43 PM BRAIN SURGEON ED Triage Entered On: 08/14/2021 19:02 EST [...] : 2 - Emergent Tracking Group : [facility] ED CORTEZ CERVANTES RN - 08/14/2021 [...] PNED ; Probability: 0 ; Diagnosis Code: [id number] ED Height and Weight Height Source : Stated Height Entry Format : Ida Height, Feet : 5 ft(Converted to: 152 cm, 60 Inch) Height, Inches : 1 Inch(Converted to: 0 ft 1 Inch, 2.54 cm) Clinical Height : 154.94 cm Weight Source, ED : Critical estimated dosing weight Weight Entry Format : Ida Weight, Pounds : 305 lb Clinical Dosing Weight : 138.64 kg Body Surface Area (BSA) : 2.26 m2 Body Mass Index : 57.8 kg/m2 (>HHI) [place] Body Weight (IBW) : 47.45 kg CORTEZ [...]
--- OUTSIDE RECORDS SUMMARY | 2025-01-03 13:38 | XMS_ITS | Encounter Summary ---
Author Organization [employer] ([place], [place], [place], [place]) Address [address] [place] [address] Care Team Providers Care Scraper Tender Name Role Phone Unavailable Primary Care Provider Unavailabl e Encounter Details Date Type Department Care Team (Late st Contact Info) Description 08/15/2021 Transcribed Document [facility] [place] [address] [place] [address] ProviderMaría MD [address] [place] [...] Historical ProviderMD - 08/15/2021 3:00 AM CDT Ware Finisher Details Entered On: 08/16/2021 4:44 EDT Performed [...]
--- OUTSIDE RECORDS SUMMARY | 2025-01-03 13:38 | XMS_ITS | Encounter Summary ---
Author Organization [employer] ([place], [place], [place], [place]) Address [address] [place] [address] Care Team Providers Care Vacuum Caster Name Role Phone Unavailable Primary Care Provider Unavailabl e Encounter Details Date Type Department Care Team (Late st Contact Info) Description 08/14/2021 Transcribed Document [facility] [place] [facility] [place] [address] ProviderMaría MD [address] [place] [address] Social History Tobacco Use Types [...] - Historical ProviderMD - 08/14/2021 10:30 PM TECHNICAL SUPPORT TECHNICIAN Patient: CARIN LUCERO Age: 46 years Sex: [...] arrest last month and was admitted to [facility]. Patient CO2 was reportedly greater than 100. Patient was admitted and eventually had to have a trach and PEG placed. Patient was transferred from [place] and was admitted at [facility], recently just being discharged 3 days [...] hours oral tablet, extended release: Tab, Oral, [id number], 0 Refill(s) gabapentin 800 mg oral tablet: [...] hours oral tablet, extended release , Oral, [id number] Zofran ODT 4 mg oral tablet, disintegrating [...] Radiology results Radiology Results (Last 48 hours) [id number] -- 08/14/2021 22:53 CT Abdomen Pelvis W [...]
--- OUTSIDE RECORDS SUMMARY | 2025-01-03 13:38 | XMS_ITS | Encounter Summary ---
Author Organization [employer] ([place], [place], [place], [place]) Address [address] [place] [address] Care Team Providers Care Monitoring Tech Name Role Phone Unavailable Primary Care Provider Unavailabl e Encounter Details Date Type Department Care Team (Late st Contact Info) Description 09/30/2021 Transcribed Document [facility] [place] Medicine [facility] [place] [address] ProviderMaría MD [address] [place] [address] Social History Tobacco Use Types [...]
--- OUTSIDE RECORDS SUMMARY | 2025-01-03 13:38 | XMS_ITS | Encounter Summary ---
Author Organization [employer] ([place], [place], [place], [place]) Address [address] [place] [address] Care Team Providers Care Supervisor Reactor Fueling Name Role Phone Unavailable Primary Care Provider Unavailabl e Encounter Details Date Type Department Care Team (Late st Contact Info) Description 09/30/2021 Transcribed Document [facility] [place] Family Medicine [facility] [place] [address] ProviderMaría MD [address] [place] [address] Social History Tobacco Use Types Packs/Day [...] 16:27:00, rate 84, normal sinus rhythm, normal GA & QRS intervals, EP Interp, No STEMI. [...] 17.6 % LOW Lymph # 1.25 x10(3)/uL [place] % 6.9 % [place] # 0.49 K/uL Eos % 0.4 % [...] Patient care transitioned to: Time: 09/30/2021 19:00:00, OTNJA REED MD. Prescriptions: Prescription Stamp Redemption Clerk Pharmacy: doxycycline monohydrate 100 mg oral tablet (Prescribe): 1 Tab, Oral, BID, for 10 Day(s), 20 Tab, 0 Refill(s) Tussionex PennKinetic 10 mg-8 mg/5 mL oral suspension, extended release (Prescribe): 5 mL, Oral, Q12H, for 5 Day(s), 50 mL, 0 Refill(s) , [facility] [id number] . Patient was given the following educational [...]
--- OUTSIDE RECORDS SUMMARY | 2025-01-03 13:38 | XMS_ITS | Encounter Summary ---
Author Organization [employer] ([place], [place], [place], [place]) Address [address] [place] [address] Care Team Providers Care Radio Communications Mechanician Name Role Phone Unavailable Primary Care Provider Unavailabl e Encounter Details Date Type Department Care Team (Late st Contact Info) Description 08/14/2021 Transcribed Document [facility] [place] Medicine [address] [place] [address] ProviderMaría MD [address] [place] [address] Social History Tobacco Use Types [...] - Historical ProviderMD - 08/14/2021 6:43 PM ROVING HAND Broset Violence Assessment Entered On: 08/14/2021 21:48 EST Performed On: 08/14/2021 21:48 EST by LORE LUDWIG RN Broset Violence Assessment Broset Violence Checklist of Symptoms : None Broset Violence Symptoms Subtotal : 0 Broset Violence Symptoms Indicator : Low risk (0) LORE LUDWIG RN - 08/14/2021 21:48 EST Electronically signed by Roman Eckert Conversion Associate Professor Of Biology [place] at 09/18/2022 8:56 AM CDT documented in this encounter Plan of Treatment Not on file documented as of this encounter Visit Diagnoses Not on filedocumented in this encounter
--- OUTSIDE RECORDS SUMMARY | 2025-01-03 13:38 | XMS_ITS | Encounter Summary ---
Author Organization [employer] ([place], [place], [place], [place]) Address [address] [place] [address] Care Team Providers Care Named Account Executive Name Role Phone Unavailable Primary Care Provider Unavailabl e Encounter Details Date Type Department Care Team (Late st Contact Info) Description 08/19/2021 Transcribed Document [facility] [place] [facility] [place] [address] ProviderMaría MD [address] [place] [address] Social History Tobacco Use Types [...] On: 08/19/2021 13:01 EDT by Anum Christopher, RUSSIAN LANGUAGE INSTRUCTOR Patient Resource Center Provider Status : EST Other Established Provider Name : Beny Chris Patient Phone Number : [phone] Patient Insurance Type : Medicaid (ex. [employer], [...] at ED : Other Primary Language : Bhutanese Patient Resource Center Comment : Patient needed primary care follow up appointment. Primary care follow up appointment has been made. Follow Up Needed : Anum Moscoso, RUSSIAN LANGUAGE INSTRUCTOR - 08/19/2021 13:01 EDT documented in this encounter Plan of Treatment Not on file documented as of this encounter Visit Diagnoses Not on filedocumented in this encounter
--- OUTSIDE RECORDS SUMMARY | 2025-01-03 13:38 | XMS_ITS | Referral Summary ---
Author Organization [employer] ([place], [place], [place], [place]) Address [address] [place] [address] Care Team Providers Care Drill Hand Name Role Phone Unavailable Primary Care Provider [...]
--- OUTSIDE RECORDS SUMMARY | 2025-01-03 13:38 | XMS_ITS | Encounter Summary ---
Author Organization [employer] ([place], [place], [place], [place]) Address [address] [place] [address] Care Team Providers Care Physics Department Chair Name Role Phone Unavailable Primary Care Provider Unavailabl e Encounter Details Date Type Department Care Team (Late st Contact Info) Description 08/15/2021 Transcribed Document [facility] [place] [facility] [place] [address] ProviderMaría MD [address] [place] [address] Social History Tobacco Use Types [...] Vancomycin HPI: 46 y/o F presenting to [facility] 2/2 abdominal pain w/ infxn around PEG tube site x 3 days. Per provider H&P: pt endorses burning sensation around site & noted redness. Recent hospital stay at [facility] - just discharged x 3 days prior to admission at [facility]. PMH significant for PEG tube [...] questions. Thank you, Jacinto Baltazar, PharmD PGY1 Fire Protection Engineer Pager: [phone], Ext. [phone] documented in this encounter Plan of Treatment Not on file documented as of this encounter Visit Diagnoses Not on filedocumented in this encounter
--- OUTSIDE RECORDS SUMMARY | 2025-01-03 13:38 | XMS_ITS | Encounter Summary ---
Author Organization [employer] ([place], [place], [place], [place]) Address [address] [place] [address] Care Team Providers Care Education And Training Coordinator Name Role Phone Unavailable Primary Care Provider Unavailabl e Encounter Details Date Type Department Care Team (Late st Contact Info) Description 08/15/2021 Transcribed Document [facility] [place] [address] [place] [address] ProviderMaría MD [address] [place] [address] Social History Tobacco Use Types [...]
--- OUTSIDE RECORDS SUMMARY | 2025-01-03 13:38 | XMS_ITS | Encounter Summary ---
Author Organization [employer] ([place], [place], [place], [place]) Address [address] [place] [address] Care Team Providers Care Home Weatherizing Worker Name Role Phone Unavailable Primary Care Provider Unavailabl e Encounter Details Date Type Department Care Team (Late st Contact Info) Description 08/14/2021 Transcribed Document [facility] [place] Family Medicine [facility] [place] [address] ProviderMaría MD [facility] [place] [address] Social History Tobacco Use Types [...] - Historical ProviderMD - 08/14/2021 8:44 PM DISTRIBUTION ACCOUNTING CLERK Pain Assessment Entered On: 08/14/2021 21:38 EST [...]
--- OUTSIDE RECORDS SUMMARY | 2025-01-03 13:38 | XMS_ITS | Encounter Summary ---
Author Organization [employer] ([place], [place], [place], [place]) Address [address] [place] [address] Care Team Providers Care Swatch Paster Name Role Phone Unavailable Primary Care Provider Unavailabl e Encounter Details Date Type Department Care Team (Late st Contact Info) Description 08/18/2021 Transcribed Document [facility] [place] [address] [place] [address] ProviderMaría MD [address] [place] [address] Social History Tobacco Use Types [...] Historical ProviderMD - 08/18/2021 3:04 PM CDT [facility] [place] OT Charges Entered On: 08/18/2021 15:05 EDT Performed On: 08/18/2021 15:04 EDT by GIANNA RHODES OTR/L [facility] [place] OT Charges OT EA ADDL 15 MIN NO CHARGE : 2 (Comment: MDR [GIANNA RHODES OTR/Az - 08/18/2021 15:05 EDT] ) GIANNA RHODES OTR/Az - 08/18/2021 15:05 EDT Electronically signed by Tomeka [facility] Conversion Boom Master Cerner at 09/18/2022 8:58 AM CDT documented in this encounter Plan of Treatment Not on file documented as of this encounter Visit Diagnoses Not on filedocumented in this encounter
--- OUTSIDE RECORDS SUMMARY | 2025-01-03 13:38 | XMS_ITS | Encounter Summary ---
Author Organization [employer] ([place], [place], [place], [place]) Address [address] [place] [address] Care Team Providers Care Budget Accountant Name Role Phone Unavailable Primary Care Provider Unavailabl e Encounter Details Date Type Department Care Team (Late st Contact Info) Description 08/15/2021 Transcribed Document [facility] [place] [address] [place] [address] ProviderMaría MD [address] [place] [id number] Social History Tobacco Use Types Packs/Day Years [...] On: 08/15/2021 11:49 EDT by Sandy Owens [facility] Phone Call for Consults Consult Phone Call/Page Attempt : First call Consult Reason : Abdominal wall cellulitis Physician Requested for Consult : ERIKA GRANADO MD-INF Provider Service Notified Name : Infectious Disease Date and Time Call Returned : 08/15/2021 13:23 EDT Sandy [facility] - 08/15/2021 13:22 EDT Electronically signed by Roman Eckert Conversion Care Team Coordinator Scheduler Cerner at 09/18/2022 8:59 AM CDT documented in this encounter Plan of Treatment Not on file documented as of this encounter Visit Diagnoses Not on filedocumented in this encounter
--- OUTSIDE RECORDS SUMMARY | 2025-01-03 13:38 | XMS_ITS | Encounter Summary ---
Author Organization [employer] ([place], [place], [place], [place]) Address [address] [place] [address] Care Team Providers Care Visual Specialist Name Role Phone Unavailable Primary Care Provider Unavailabl e Encounter Details Date Type Department Care Team (Late st Contact Info) Description 08/15/2021 Transcribed Document [facility] Radiology [address] [place] [address] Saleem Jimenes MD [address] [place] [id number] Social History Tobacco Use Types Packs/Day [...] mL: 1,500 mg, 250 mL/Hr, IV Piggyback, [id number] Incomplete Depakote ER 500 mg oral tablet, extended release: 1 Tab, Oral, Daily SUMAtriptan 100 mg oral tablet: 100 mg, Oral, Daily Viibryd 40 mg oral tablet: 40 mg, Oral, Daily Wellbutrin XL 300 mg/24 hours oral tablet, extended release: 1 Tab, Oral, [id number] clonazePAM 0.5 mg oral tablet: 0.5 Tab, [...] hours oral tablet, extended release: Tab, Oral, U72YBrp, 0 Refill(s) acetaminophen-HYDROcodone 325 mg-5 mg oral [...] 0.9% 250 mL 1,500 mg, IV Piggyback, [id number] Continuous: (1) NaCl 0.9% 1,000 mL 1,000 [...] History of obstructive sleep apnea / IMO [id number] / Confirmed Suicide risk / IMO 03205 / Confirmed, Active Problems (2) History of [...] 32.8 \ Radiology Results (Last 48 hours) [id number] -- 08/14/2021 22:53 CR Chest 1 Vw [...] 250 mL 1,500 mg, IV Piggyback, Inj, K52HJwz, infuse over 60 Minute(s), Start 08/15/21 11:00:00 [...]
--- OUTSIDE RECORDS SUMMARY | 2025-01-03 13:38 | XMS_ITS | Encounter Summary ---
Author Organization [employer] ([place], [place], [place], [place]) Address [address] [place] [address] Care Team Providers Care Poultry Culler Name Role Phone Unavailable Primary Care Provider Unavailabl e Encounter Details Date Type Department Care Team (Late st Contact Info) Description 08/15/2021 Transcribed Document [facility] [place] [address] [place] [address] ProviderMaría MD [address] [place] [address] Social History Tobacco Use Types [...] On: 08/15/2021 13:29 EDT by EBEN STEPHENS, RN-Sock And Stocking Ironer Initial Assessment I Previously Documented Living Environment : No qualifying data available. Living Situation : Home Patient Lives With : Parent(s) Emergency Contact #1 : Kallie Meredith Emergency Contact #1 Phone Number : [phone] Emergency Contact #1 Relationship : Mother/hcs Emergency Contact #2 : NA Emergency Contact #2 Phone Number : NA Emergency Contact #2 Relationship : NA Identified Medical Decision Maker : Kallie Meredith Identified Medical Decision Maker Enter Doctors Name : Beny Chris MD Does Patient have PCP Listed? : Yes Medical Durable Power of Electrician Master Name : no Legal Guardian : No Date Hospital Obtained Advance Directive : 08/15/2021 EST Is Guardianship Needed : No EBEN STEPHENS RN-Sock And Stocking Ironer - 08/15/2021 13:29 EDT Initial Assessment II Sensory and Motor Deficits : Weakness Current Home Treatments and Equipment : Oxygen therapy, Tracheostomy care, Walker Home Equipment Contact Information : [facility] [phone] Does the Patient have a Floor to SNF Benefit? : No EBEN STEPHENS RN-Sock And Stocking Ironer - 08/15/2021 13:29 EDT Discharge Needs I Anticipated Discharge Date : 08/18/2021 EDT Anticipated Discharge To, CM : Home with home health, Rehabilitation Unit Current Home Treatment/Equipment : Current Home Treatment/Equipment No qualifying data available. Post Acute/Home Treatments : Oxygen therapy, Tracheostomy care, Walker Documentation Status Complete : Yes EBEN STEPHENS RN-Sock And Stocking Ironer - 08/15/2021 13:29 EDT Discharge Needs II Professional Skilled Services : Professional Skilled Services No qualifying data available. Needs Assistance with Transportation : No Discharge Options Discussed with Patient : Acute rehabilitation, Home Health Patient Discharge Goal : Home health care EBEN STEPHENS RN-Sock And Stocking Ironer - 08/15/2021 13:29 EDT Narrative Note Narrative [...] spoke with Ms. Badillo. she resides in [place] with mom Kallie. has mentioned equipment to include trach & humidified air provided by [facility]. had bipap in past provided by [facility] not now as has trach. no hh. [facility]. dcp: acute rehab vs hh. she is adamant about going home. she would consider home health. would like shower chair on dc. she advises mom is poa/hcs. mom to bring copy of document. Kallie Spencer, mom, spoke with Ramesh, bedside RN. alert to family bringing living will EBEN STEPHENS, RN-Sock And Stocking Ironer - 08/15/2021 13:29 EDT documented in this encounter Plan of Treatment Not on file documented as of this encounter Visit Diagnoses Not on filedocumented in this encounter
--- OUTSIDE RECORDS SUMMARY | 2025-01-03 13:38 | XMS_ITS | Encounter Summary ---
Author Organization [employer] ([place], [place], [place], [place]) Address [address] [place] [address] Care Team Providers Care Molder Sweep Name Role Phone Unavailable Primary Care Provider Unavailabl e Encounter Details Date Type Department Care Team (Late st Contact Info) Description 08/15/2021 Transcribed Document [facility] [place] Family Medicine [facility] [place] [address] ProviderMaría MD [address] [place] [address] Social History Tobacco Use Types [...] Policy Numbers : Insurance 1 Health Plan: [facility] Policy Number: [id number] Authorization Number: Insurance Primary Name : [facility] Policy Number: [id number] Authorization Status-Primary : Awaiting callback Reference Number-Primary : [id number] Authorized Service Begin Date-Primary : 08/14/2021 EST Authorization Comments-Primary : Clinicals submitted on [facility] website for IP approval Historical Authorization Comments-Primary : No Authorization Comments Found ROBERTO CARLOS CISNEROS RN - 08/15/2021 12:09 EDT Electronically signed by Tomeka [facility] Conversion [employer] Setting Machine Operator Cerner at 09/18/2022 8:57 AM CDT documented in this encounter Plan of Treatment Not on file documented as of this encounter Visit Diagnoses Not on filedocumented in this encounter
--- OUTSIDE RECORDS SUMMARY | 2025-01-03 13:38 | XMS_ITS | Encounter Summary ---
Author Organization [employer] ([place], [place], [place], [place]) Address [address] [place] [address] Care Team Providers Care Traffic Law Attorney Name Role Phone Unavailable Primary Care Provider Unavailabl e Encounter Details Date Type Department Care Team (Late st Contact Info) Description 08/18/2021 Transcribed Document [facility] Radiology [address] [place] [address] Saleem Jimenes MD [address] [place] [address] Social History Tobacco Use Types Packs/Day [...] mg, 12 mL, 124 mL/Hr, IV Piggyback, [id number] Dulcolax Laxative: 5 mg, Oral, Daily, PRN: Constipation DuoNeb 0.5 mg-2.5 mg/3 mL inhalation solution: 3 mL, Nebulized Inhalation, RT_Q6H, PRN: Shortness of Breath Geodon: 40 mg, Oral, BID HYDROmorphone: 2 mg, Oral, Q4H, PRN: Breakthrough Pain Imitrex: 100 mg, Oral, Daily, PRN: Migraine Headache LaMICtal: 100 mg, Oral, Daily Lovenox: 40 mg, SubCutaneous, [id number] MiraLax: 17 Gram, Oral, Daily, PRN: Constipation [...] mL 600 mg 12 mL, IV Piggyback, [id number] enoxaparin 40 mg/0.4 mL inj 40 mg 0.4 mL, SubCutaneous, [id number] famotidine 20 mg tab 20 mg 1 [...] History of obstructive sleep apnea / IMO [id number] / Confirmed Suicide risk / IMO 70268 / Confirmed, Active Problems (2) History of [...] 29.9 \ Radiology Results (Last 48 hours) [id number] -- 08/14/2021 22:53 CR Chest 1 Vw [...]
--- OUTSIDE RECORDS SUMMARY | 2025-01-03 13:38 | XMS_ITS | Encounter Summary ---
Author Organization [employer] ([place], [place], [place], [place]) Address [address] [place] [address] Care Team Providers Care Freelance Writer Name Role Phone Unavailable Primary Care Provider Unavailabl e Encounter Details Date Type Department Care Team (Late st Contact Info) Description 08/15/2021 Transcribed Document [facility] [place] [facility] [place] [address] [place] [address] ProviderMaría MD [address] [place] [address] Social History Tobacco Use Types [...] - Historical ProviderMD - 08/15/2021 12:39 AM ER TECH Meds to Bed Enrollment Entered On: 08/16/2021 10:36 EDT Performed On: 08/15/2021 0:39 EST by Jose Maria Freeman, Novelty Twister Tender Cert Lead Meds to Bed Enrollment Patient Enrollment Decision: : Yes/enroll in meds to bed program Jose Maria Freeman Novelty Twister Tender Cert Lead - 08/16/2021 10:36 EDT documented in this encounter Plan of Treatment Not on file documented as of this encounter Visit Diagnoses Not on filedocumented in this encounter
--- OUTSIDE RECORDS SUMMARY | 2025-01-03 13:38 | XMS_ITS | Encounter Summary ---
Author Organization [employer] ([place], [place], [place], [place]) Address [address] [place] [address] Care Team Providers Care Field Artillery Cannoneer Name Role Phone Unavailable Primary Care Provider Unavailabl e Encounter Details Date Type Department Care Team (Late st Contact Info) Description 08/15/2021 Transcribed Document [facility] [place] [facility] [place] [address] ProviderMaría MD [address] [place] [address] Social History Tobacco Use Types [...] - Historical ProviderMD - 08/15/2021 12:22 AM FORGING DIE FINISHER ED Event Note Entered On: 08/15/2021 0:23 [...]
--- OUTSIDE RECORDS SUMMARY | 2025-01-03 13:38 | XMS_ITS | Encounter Summary ---
Author Organization [employer] ([place], [place], [place], [place]) Address [address] [place] [address] Care Team Providers Care Bookstore Clerk Name Role Phone Unavailable Primary Care Provider Unavailabl e Encounter Details Date Type Department Care Team (Late st Contact Info) Description 09/30/2021 Transcribed Document [facility] [place] [facility] [address] ProviderMaría MD [address] [place] [address] Social History Tobacco Use Types [...] Roberts MD - 09/30/2021 8:31 PM CDT [facility] [address] [place], [place] [id number] JAZMINE CARIN :1975 Visit Time:09/30/2021 Your Visit [...] 2 to 3 days Where: [place] [address]- Business (1) Allergies metoclopramide Immunizations This Visit No Immunizations Found Medications What How Much When Instructions Next Dose chlorpheniramine-hydrocodone (Tussionex PennKinetic 10 mg-8 mg/ 5 mL oral suspension, extended release) 5 Milliliter(s) Oral Every 12 hours Duration: 5 Day(s) Pickup at [facility]/pharmacy #[id number] doxycycline (doxycycline monohydrate 100 mg oral tablet) 1 Tablet(s) Oral Two Times A Day Duration: 10 Day(s) Pickup at [facility] acetaminophen-hydrocodone (acetaminophen-HYDROcodone 325 mg-5 mg oral tablet) [...] Oral Two Times A Day Pharmacy Information [facility]/pharmacy #[id number]: [address] [place], [place] [id number] [phone] [facility] [place]: [address] [facility] [address] [place], [place] [id number] [phone] The home medications listed are only as [...] range between ( 0.0 and 7.0 ) Hayes #: 0.49 K/uL -- Normal range between ( 0.16 and 1.00 ) Eos #: 0.03 x10(3)/uL -- Normal range between ( 0.00 and 0.80 ) Hayes %: 6.9 % -- Normal range between [...] these instructions at home: Medicines ??? Take gctz-xnf-gauiphc and prescription medicines only as told by [...] and water are not available, use hand carburetor rebuilder. Contact a health care provider if you [...] provider. Document Revised: 03/03/2020 Document Reviewed: 03/03/2020 [employer] Patient Education ?? 2020 [employer]. Emergency Awareness and Preventative Care STROKE is [...] Assistance with quitting is available by contacting 2-829-GTSRNOW. This is a free resource providing counseling, support, and referral. Or you may contact your personal physician. [place] Suicide Prevention Lifeline: The National Suicide Prevention [...] was given the opportunity to ask questions. Patient/Decision Science Analyst Name: Patient/Decision Science Analyst Signature: Relationship to Patient: Clinician/Hospital Decision Science Analyst Signature: Please Provide a Telephone Number Where You Can Be Reached: Is it Permissible To Leave a Message? Date: Electronically signed by Tomeka, Roman Conversion Fermenting Cellars Supervisor Florinner at 09/18/2022 9:18 AM CDT documented in this encounter Plan of Treatment Not on file documented as of this encounter Visit Diagnoses Not on filedocumented in this encounter
--- OUTSIDE RECORDS SUMMARY | 2025-01-03 13:38 | XMS_ITS | Encounter Summary ---
Author Organization [employer] ([place], [place], [place], [place]) Address [address] [place] [address] Care Team Providers Care Hair Baler Name Role Phone Unavailable Primary Care Provider Unavailabl e Encounter Details Date Type Department Care Team (Late st Contact Info) Description 08/15/2021 Transcribed Document [facility] [place] [facility] [place] [address] ProviderMaría MD [address], [place] [...] and recent respiratory arrest at [facility] requiring tracheostomy/PEG about a month ago with transfer to [facility]. She was discharged on 08/11. She has been tolerating oral intake and was scheduled to have PEG removed next week. She began having pain around the PEG tube site around 3 days ago with the area becoming more red with burning sensation prompting her to come to [facility] ED on 08/14/21. She denies fever, chills, [...] mg, Oral, Daily Lovenox: 40 mg, SubCutaneous, [id number] MiraLax: 17 Gram, Oral, Daily, PRN: Constipation [...] mL: 1,500 mg, 250 mL/Hr, IV Piggyback, [id number] Prescriptions Prescribed Bentyl 20 mg oral tablet: [...] hours oral tablet, extended release: Tab, Oral, [id number], 0 Refill(s) acetaminophen-HYDROcodone 325 mg-5 mg oral [...] m - 1,500 mg, IV Piggyback, Inj, [id number], infuse over 60 Minute(s) Anticoagulant enoxaparin (Lovenox) - 40 mg, SubCutaneous, Inj, [id number], Routine Cardiovascular hydrALAZINE - 10 mg, Oral, [...] History of obstructive sleep apnea / IMO [id number] / Confirmed Suicide risk / IMO 31811 / Confirmed, Active Problems (2) History of [...] every day smoker . Single, lives in [place], [place]. Smokes daily, no alcohol or illicit [...] No tenderness, No deformity. Integumentary: Warm, Dry, [place], No pallor, No rash, PEG tube site [...] Radiology results Radiology Results (Last 48 hours) [id number] -- 08/14/2021 22:53 CR Chest 1 Vw [...] GI. 5. Obtain records from [facility] and [facility] and place on chart. 6. [...] Dr. Manuelito Smith. Electronically signed by Tomeka [facility] Conversion Coal Trammer Cerner at 09/18/2022 8:51 AM CDT documented in this encounter Plan of Treatment Not on file documented as of this encounter Visit Diagnoses Not on filedocumented in this encounter
--- OUTSIDE RECORDS SUMMARY | 2025-01-03 13:38 | XMS_ITS | Encounter Summary ---
Author Organization [employer] ([place], [place], [place], [place]) Address [address] [place] [address] Care Team Providers Care Advertising Sales Associate Name Role Phone Unavailable Primary Care Provider Unavailabl e Encounter Details Date Type Department Care Team (Late st Contact Info) Description 08/14/2021 Transcribed Document [facility] [place] [facility] [address] ProviderMaría MD [address] [place] [address] Social History Tobacco Use Types [...] - Historical ProviderMD - 08/14/2021 11:49 PM DRIER BELT CONVEYOR Pain Assessment Entered On: 08/15/2021 22:58 EDT Performed On: 08/15/2021 23:06 EDT by Venkat Chow Lpn Intervention Information: oxyCODONE Performed by Venkat Chow Lpn on 08/15/2021 22:06:00 EDT oxyCODONE,5mg Oral,Pain (Moderate 4-6) Pain Assessment Pain Assessment : Follow-up assessment Pain Scale Goal : 4 Venkat Chow Lpn - 08/15/2021 22:58 EDT Electronically signed by Tomeka [facility] Conversion Biostatistics Director Cerner at 09/18/2022 8:56 AM CDT documented in this encounter Plan of Treatment Not on file documented as of this encounter Visit Diagnoses Not on filedocumented in this encounter
--- OUTSIDE RECORDS SUMMARY | 2025-01-03 13:38 | XMS_ITS | Encounter Summary ---
Author Organization [employer] ([place], [place], [place], [place]) Address [address] [place] [address] Care Team Providers Care Tunnel Kiln Operator Name Role Phone Unavailable Primary Care Provider Unavailabl e Encounter Details Date Type Department Care Team (Late st Contact Info) Description 08/15/2021 Transcribed Document [facility] [place] [facility] [place] [address] ProviderMaría MD [address] [place] [address] Social History Tobacco Use [...]
--- OUTSIDE RECORDS SUMMARY | 2025-01-03 13:38 | XMS_ITS | Encounter Summary ---
Author Organization [employer] ([place], [place], [place], [place]) Address [address] [place] [address] Care Team Providers Care Grain Picker Name Role Phone Unavailable Primary Care Provider Unavailabl e Encounter Details Date Type Department Care Team (Late st Contact Info) Description 08/15/2021 Transcribed Document [facility] [place] [facility] [place] [address] ProviderMaría MD [address] [place] [address] Social History Tobacco Use Types [...] CASANDRA METCALFYN, PT - 08/17/2021 15:26 EDT [facility]sp Goals Mobility/Bed Mobility LTG PT Grid Goal [...] 08/17/2021 15:26 EDT Electronically signed by Tomeka [facility] Conversion Wet End Operator Cerner at 09/23/2022 8:15 AM CDT documented in this encounter Plan of Treatment Not on file documented as of this encounter Visit Diagnoses Not on filedocumented in this encounter
--- OUTSIDE RECORDS SUMMARY | 2025-01-03 13:38 | XMS_ITS | Encounter Summary ---
Author Organization [employer] ([place], [place], [place], [place]) Address [address] [place] [address] Care Team Providers Care Conductor Road Freight Name Role Phone Unavailable Primary Care Provider Unavailabl e Encounter Details Date Type Department Care Team (Late st Contact Info) Description 08/15/2021 Transcribed Document [facility] [place] [facility] [place] [address] ProviderMaría MD [address] [place] [address] Social History Tobacco Use Types [...] and about to have PEG tube removed allergist/pediatric pulmonologist. GI plans for removal today. Pt busy [...]
--- OUTSIDE RECORDS SUMMARY | 2025-01-03 13:38 | XMS_ITS | Encounter Summary ---
Author Organization [employer] ([place], [place], [place], [place]) Address [address] [place] [address] Care Team Providers Care Senior Research Scientist Name Role Phone Unavailable Primary Care Provider Unavailabl e Encounter Details Date Type Department Care Team (Late st Contact Info) Description 10/01/2021 Transcribed Document [facility] [place] Medicine [address] [place] [address] ProviderMaría MD [address] [place] [address] Social History Tobacco Use Types [...]
--- OUTSIDE RECORDS SUMMARY | 2025-01-03 13:38 | XMS_ITS | Encounter Summary ---
Author Organization [employer] ([place], [place], [place], [place]) Address [address] [place] [address] Care Team Providers Care Inspector Metal Can Name Role Phone Unavailable Primary Care Provider Unavailabl e Encounter Details Date Type Department Care Team (Late st Contact Info) Description 08/14/[address] [facility] [place] Medicine [facility] [place] [address] ProviderMaría MD [place] [address] Social History Tobacco Use [...] - Historical Provider, - 08/14/2021 11:00 PM WASHHOUSE HAND Admission History, Adult Entered On: 08/15/2021 3:13 [...] Meredith Emergency Contact #1 Phone Number : [phone] Emergency Contact #1 Relationship : Mother Emergency [...] Obtained From : Patient Primary Language : Tunisian Communication Barrier : None Surgical Rn Needed : No Venkat Chow Lpn - [...] Scale Risk Level : 25-45 Medium Risk [place] Fall Interventions : Adequate lighting, Bed in [...] Fall Risk Scale Calc Temp : 1 Venkat Chow [facility] - 08/15/2021 1:53 EST Health Histories Smoking [...] Source : Estimated Height Entry Format : [place] Height, Feet : 5 ft(Converted to: 152 cm, 60 Inch) Height, Inches : 1 Inch(Converted to: 0 ft 1 Inch, 2.54 cm) Clinical Height : 154.94 cm Weight Source : Bed scale Weight Entry Format : [place] Clinical Dosing Weight : 138.64 kg Weight, Pounds : 305 lb Body Surface Area (BSA) : 2.26 m2 Body Mass Index : 57.8 kg/m2 (>HHI) [place] Body Weight : 47 kg Venkat Chow [facility] 08/15/2021 1:53 EST Infectious Disease History Does [...] a COVID-19 Vaccine? : No Venkat Chow [employer] Repairer - 08/15/2021 1:53 EST Infectious Disease Risk [...] Needs Meds Crushed/Liquid : No Geraldo Venkat LienMaraino 08/15/2021 1:53 EST Nutrition History Feeding Ability [...] at risk Venkat ChowMariano 08/15/2021 1:53 EST [place] Suicide Severity Rating Scale (C-SSRS) CSSRS Past [...]
--- OUTSIDE RECORDS SUMMARY | 2025-01-03 13:38 | XMS_ITS | Encounter Summary ---
Author Organization [employer] ([place], [place], [place], [place]) Address [address] [place] [address] Care Team Providers Care Clinical Auditor Name Role Phone Unavailable Primary Care Provider Unavailabl e Encounter Details Date Type Department Care Team (Late st Contact Info) Description 09/30/2021 Transcribed Document [facility] [place] [facility] [place] [address] ProviderMaría MD [address] [place] [address] Social History Tobacco Use Types [...] Warm Skin Description : Normal for ethnicity Leo Belle RN - 09/30/2021 16:50 EDT ED General-Functional Assess Information Obtained From : Patient Communication Barrier : None Primary Language : Chinese Any Spiritual/Cultural Needs or Requests : No [...]
--- OUTSIDE RECORDS SUMMARY | 2025-01-03 13:38 | XMS_ITS | Encounter Summary ---
Author Organization [employer] ([place], [place], [place], [place]) Address [address] [place] [address] Care Team Providers Care Senior Care Specialist Name Role Phone Unavailable Primary Care Provider Unavailabl e Encounter Details Date Type Department Care Team (Late st Contact Info) Description 08/23/2021 Transcribed Document [facility] [place] [address] ProviderMaría MD [address] [place] [address] Social History Tobacco Use Types [...] On: 08/23/2021 6:36 EDT by Zara Donald, Ion Exchange Operator Primary Insurance Authorization Authorization and Policy Numbers : Insurance 1 Health Plan: [facility] Policy Number: [id number] Authorization Number: Insurance Primary Name : [facility] Policy Number: [id number] Authorization Status-Primary : Approved Auth/Referral Contact Name-Primary : DC Reference Number-Primary : [id number] Authorization Number-Primary : [id number] Number of Days Authorized-Primary : 9 Day(s) [...] due 08/24/21. -Efrem Gillette RN. (Zara Donald, Ion Exchange Operator 08/19/2021 11:33) Comment 2: c/s review for inpt faxed wo to [facility] via [employer]. (VASYL HIGGINS, EWA-Labor Arbitrator Hearing Office 08/19/2021 09:00) Comment 3: inpt admit approved per fax from [facility] 08/16/21 auth# [id number] NRD 08-19-21 (EBEN HURTADO, Speech And Hearing Clinic Director 08/16/2021 12:52) Comment 4: Clinicals submitted on [facility] website for IP approval (ROBERTO CARLOS CISNEROS RN 08/15/2021 12:09) Zara Donald, Ion Exchange Operator - 08/23/2021 6:36 EDT documented in this encounter Plan of Treatment Not on file documented as of this encounter Visit Diagnoses Not on filedocumented in this encounter
--- OUTSIDE RECORDS SUMMARY | 2025-01-03 13:38 | XMS_ITS | Encounter Summary ---
Author Organization [employer] ([place], [place], [place], [place]) Address [address] [place] [address] Care Team Providers Care Behaviour Support Teacher Name Role Phone Unavailable Primary Care Provider Unavailabl e Encounter Details Date Type Department Care Team (Late st Contact Info) Description 09/30/2021 Transcribed Document [facility] [place] [address] ProviderMaría MD [address] [place] [address] Social History Tobacco Use Types [...] 8:30 PM CDT Electronically signed by Tomeka [facility] Conversion Care Transition Coordinator Avery at 09/18/2022 9:34 AM CDT documented in this encounter Plan of Treatment Not on file documented as of this encounter Visit Diagnoses Not on filedocumented in this encounter
--- OUTSIDE RECORDS SUMMARY | 2025-01-03 13:38 | XMS_ITS | Encounter Summary ---
Author Organization [employer] ([place], [place], [place], [place]) Address [address] [place] [address] Care Team Providers Care Professional Organizer Name Role Phone Unavailable Primary Care Provider Unavailabl e Encounter Details Date Type Department Care Team (Late st Contact Info) Description 08/15/2021 Transcribed Document [facility] [place] [address] [place] [address] ProviderMaría MD [address] [place] [address] Social History Tobacco Use Types [...] - Historical ProviderMD - 08/15/2021 12:00 AM AUTOMOTIVE SERVICES MANAGER ED Event Note Entered On: 08/15/2021 0:00 EST Performed On: 08/15/2021 0:00 EST by Brittanie Murdock RN ED Event Note ED Event Date/Time : 08/15/2021 0:00 EST ED Description of Event : Patient report given to Rita MCNEIL on 3rd floor. Brittanie Murdock RN - 08/15/2021 0:00 EST Electronically signed by Roman Eckert Conversion Assistant Professor Of Surgery [place] at 09/18/2022 8:50 AM CDT documented in this encounter Plan of Treatment Not on file documented as of this encounter Visit Diagnoses Not on filedocumented in this encounter
--- OUTSIDE RECORDS SUMMARY | 2025-01-03 13:38 | XMS_ITS | Encounter Summary ---
Author Organization [employer] ([place], [place], [place], [place]) Address [address] [place] [address] Care Team Providers Care Inorganic Chemistry Professor Name Role Phone Unavailable Primary Care Provider Unavailabl e Encounter Details Date Type Department Care Team (Late st Contact Info) Description 09/30/2021 Transcribed Document [facility] [place] [facility] [place] [address] ProviderMaría MD [address] [place] [address] Social History Tobacco Use Types [...] : 2 - Emergent Tracking Group : [facility] ED Leo Belle RN - 09/30/2021 16:24 EDT Mode of Arrival : Stretcher Transported to ED by : Ambulance/ALS EMS Service : [facility] To Room Via : Stretcher Accompanied By : Unaccompanied ED Vital Signs : Document Height & Weight : Document ED Allergies : Document ED Reason for Visit : Document eLo Belle RN - 09/30/2021 16:24 EDT Infectious [...] Problems(Active) History of obstructive sleep apnea (IMO :[id number] ) Name of Problem: History of obstructive sleep apnea ; Recorder: SYSTEM, SYSTEM; Confirmation: Confirmed ; Classification: Medical ; Code: 21111381 ; Last Updated: 08/15/2021 3:13 EDT ; Life Cycle Date: 08/15/2021 ; Life Cycle Status: Active ; Vocabulary: IMO Suicide risk (IMO :28604 ) Name of Problem: Suicide risk ; Recorder: SYSTEM, SYSTEM; Confirmation: Confirmed ; Classification: Medical ; Code: 79001 ; Last Updated: 08/15/2021 3:13 EDT ; Life Cycle Date: 08/15/2021 ; Life Cycle Status: Active ; Vocabulary: IMO Diagnoses(Active) Shortness of breath Date: 09/30/2021 ; Diagnosis Type: Reason For Visit ; Confirmation: Complaint of ; Clinical Dx: Shortness of breath ; Classification: Medical ; Clinical Service: Non-Specified ; Code: PNED ; Probability: 0 ; Diagnosis Code: [id number] ED Height and Weight Height Source : Stated Height Entry Format : [place] Height, Feet : 5 ft(Converted to: 152 cm, 60 Inch) Height, Inches : 1 Inch(Converted to: 0 ft 1 Inch, 2.54 cm) Clinical Height : 154.94 cm Weight Source, ED : Critical estimated dosing weight Weight Entry Format : [place] Weight, Pounds : 330 lb Clinical Dosing Weight : 150 kg Body Surface Area (BSA) : 2.34 m2 Body Mass Index : 62.5 kg/m2 (>HHI) [place] Body Weight (IBW) : 47.45 kg Leo Belle RN - 09/30/2021 16:24 EDT documented in this encounter Plan of Treatment Not on file documented as of this encounter Visit Diagnoses Not on filedocumented in this encounter
--- OUTSIDE RECORDS SUMMARY | 2025-01-03 13:38 | XMS_ITS | Encounter Summary ---
Author Organization [employer] ([place], [place], [place], [place]) Address [address] [place] [address] Care Team Providers Care Service Administrator Name Role Phone Unavailable Primary Care Provider Unavailabl e Encounter Details Date Type Department Care Team (Late st Contact Info) Description 08/15/[address] [facility] [place] [facility] [place] [address] ProviderMraía MD [address] [place] [address] Social History Tobacco Use Types [...] 0.9% 250 mL 1,500 mg, IV Piggyback, [id number] Continuous: (1) NaCl 0.9% 1,000 mL 1,000 [...] (AUG 15 01:00) Electronically signed by Tomeka, [facility] Conversion Business Support Coordinator Cerner at 09/18/2022 9:00 AM CDT documented in this encounter Plan of Treatment Not on file documented as of this encounter Visit Diagnoses Not on filedocumented in this encounter
--- OUTSIDE RECORDS SUMMARY | 2025-01-03 13:38 | XMS_ITS | Encounter Summary ---
Author Organization [employer] ([place], [place], [place], [place]) Address [address] [place] [address] Care Team Providers Care Machine Shorthand Reporter Name Role Phone Unavailable Primary Care Provider Unavailabl e Encounter Details Date Type Department Care Team (Late st Contact Info) Description 08/14/2021 Transcribed Document [facility] [place] [address] [place] [address] ProviderMaría MD [address] [place] [address] Social History Tobacco Use Types [...] - Historical ProviderMD - 08/14/2021 9:36 PM NIGHT STOCKER ED Event Note Entered On: 08/14/2021 21:37 [...] LORE LUDWIG RN - 08/14/2021 21:36 EST documented in this encounter Plan of Treatment Not on file documented as of this encounter Visit Diagnoses Not on filedocumented in this encounter
--- OUTSIDE RECORDS SUMMARY | 2025-01-03 13:38 | XMS_ITS | Clinical Summary ---
Author Organization [employer] ([place], [place], [place], [place]) Address [address] [place] [address] Care Team Providers Care Swimming Pool Servicer Name Role Phone Unavailable Primary Care Provider [...]
--- OUTSIDE RECORDS SUMMARY | 2025-01-03 13:38 | XMS_ITS | Encounter Summary ---
Author Organization [employer] ([place], [place], [place], [place]) Address [address] [place] [address] Care Team Providers Care Cannon Pinion Adjuster Name Role Phone Unavailable Primary Care Provider Unavailabl e Encounter Details Date Type Department Care Team (Late st Contact Info) Description 08/15/2021 Transcribed Document [facility] [place] [facility] [place] [address] ProviderMaría MD [address] [place] [address] Social History Tobacco Use Types [...] ER and was managed there. Rapid Response Cannon Pinion Adjuster #1 : EVIE ONEILL RN EVIE ONEILL RN - 08/15/2021 9:02 EDT Electronically signed by Tomeka [facility] Conversion Logistics Supply Officer Cerner at 09/18/2022 9:35 AM CDT documented in this encounter Plan of Treatment Not on file documented as of this encounter Visit Diagnoses Not on filedocumented in this encounter
--- OUTSIDE RECORDS SUMMARY | 2025-01-03 13:39 | XMS_ITS | Encounter Summary ---
Author Organization [employer] ([place], [place], [place], [place]) Address [address] [place] [address] Care Team Providers Care Grain Commodity Manager Name Role Phone Unavailable Primary Care Provider Unavailabl e Encounter Details Date Type Department Care Team (Late st Contact Info) Description 08/17/2021 Transcribed Document [facility] [place] [facility] [place] [address] ProviderMaría MD [address] [place] [address] Social History Tobacco Use Types [...] On: 08/17/2021 15:03 EDT by ERVIN HERNANDEZ, Food And Beverage Intern Care Management Progress Note Discharge Arrangements : [...] Attend Multidisciplinary Rounds? : Yes ERVIN HERNANDEZ, Food And Beverage Intern - 08/17/2021 15:03 EDT Narrative Progress Note [...] DCP: home with family support. JEANNETTE MANCERA Food And Beverage Intern - 08/16/21 17:36:38 ERVIN HERNANDEZ Food And Beverage Intern - 08/17/2021 15:03 EDT documented in this encounter Plan of Treatment Not on file documented as of this encounter Visit Diagnoses Not on filedocumented in this encounter
--- OUTSIDE RECORDS SUMMARY | 2025-01-03 13:39 | XMS_ITS | Encounter Summary ---
Author Organization [employer] ([place], [place], [place], [place]) Address [address] [place] [address] Care Team Providers Care Tractor Trailer Truck Driver Name Role Phone Unavailable Primary Care Provider Unavailabl e Encounter Details Date Type Department Care Team (Late st Contact Info) Description 08/14/2021 Transcribed Document [facility] [place] [facility] [place] [address] ProviderMaría MD [address] [place] [address] Social History Tobacco Use Types Packs/Day [...] - Historical Provider, - 08/14/2021 10:53 PM DIRECTOR AND PROFESSOR Treatment Intervention, OT Entered On: 08/17/2021 15:15 [...] abdominal pain Therapy Diagnosis, OT : Decreased [place] with ADLs secondary to generalized weakness Admission [...] GIANNA RHODES, OTR/L - 08/17/2021 15:10 EDT Oil Dispenser Goals, OT Grooming LTG Grid Goal #1 Activity : Grooming Assist : Independent, modified Date to Meet : 08/29/2021 EDT Goal Status : Initial goal Comment : Standing GIANNA RHODES OTR/L - 08/17/2021 15:10 EDT Dressing, Lower Body LTG Grid Goal #1 Activity : Dressing, Lower Body Assist : Independent, modified Equipment : Long Handled Principal Java Software Engineer, Sock aid, Long handled shoehorn Date to [...] the text rendition version of the form. [place] OT Charges OT Ther Activities Ea 15 Min : 1 GIANNA RHODES OTR/Az - 08/17/2021 15:10 EDT documented in this encounter Plan of Treatment Not on file documented as of this encounter Visit Diagnoses Not on filedocumented in this encounter
--- OUTSIDE RECORDS SUMMARY | 2025-01-03 13:39 | XMS_ITS | Encounter Summary ---
Author Organization [employer] ([place], [place], [place], [place]) Address [address] [place] [address] Care Team Providers Care Dust Brush Assembler Name Role Phone Unavailable Primary Care Provider Unavailabl e Encounter Details Date Type Department Care Team (Late st Contact Info) Description 08/14/2021 Transcribed Document [facility] [place] [facility] [place] [address] ProviderMaría MD [address] [place] [address] Social History Tobacco Use Types [...] - Historical ProviderMD - 08/14/2021 6:43 PM NURSE PRACTITIONER HOSPITALIST ED Assessment Entered On: 08/14/2021 21:48 EST [...] Communication Barrier : None Primary Language : [place] Any Spiritual/Cultural Needs or Requests : No [...] 08/14/2021 21:41 EST Electronically signed by Tomeka [facility] Conversion Pipe Fitter Welding Cerner at 09/18/2022 8:52 AM CDT documented in this encounter Plan of Treatment Not on file documented as of this encounter Visit Diagnoses Not on filedocumented in this encounter
--- OUTSIDE RECORDS SUMMARY | 2025-01-03 13:39 | XMS_ITS | Encounter Summary ---
Author Organization [employer] ([place], [place], [place], [place]) Address [address] [place] [address] Care Team Providers Care Sample Book Maker Name Role Phone Unavailable Primary Care Provider Unavailabl e Encounter Details Date Type Department Care Team (Late st Contact Info) Description 08/19/2021 Transcribed Document [facility] [place] [address] [place] [address] ProviderMaría MD [address] [place] [address] Social History Tobacco Use [...]
--- OUTSIDE RECORDS SUMMARY | 2025-01-03 13:39 | XMS_ITS | Encounter Summary ---
Author Organization [employer] ([place], [place], [place], [place]) Address [address] [place] [address] Care Team Providers Care Barber Stylist Name Role Phone Unavailable Primary Care Provider Unavailabl e Encounter Details Date Type Department Care Team (Late st Contact Info) Description 08/17/2021 Transcribed Document [facility] [place] [facility] [place] [address] ProviderMaría MD [address] [place] [address] Social History Tobacco Use Types [...]
--- OUTSIDE RECORDS SUMMARY | 2025-01-03 13:39 | XMS_ITS | Encounter Summary ---
Author Organization [employer] ([place], [place], [place], [place]) Address [address] [place] [address] Care Team Providers Care Sign Builder Name Role Phone Unavailable Primary Care Provider Unavailabl e Encounter Details Date Type Department Care Team (Late st Contact Info) Description 08/17/2021 Transcribed Document [facility] [place] [facility] [place] [address] ProviderMaría MD [address] [place] [address] Social History Tobacco Use Types [...]
--- OUTSIDE RECORDS SUMMARY | 2025-01-03 13:39 | XMS_ITS | Encounter Summary ---
Author Organization [employer] ([place], [place], [place], [place]) Address [address] [place] [address] Care Team Providers Care Clinical Resource Manager Name Role Phone Unavailable Primary Care Provider Unavailabl e Encounter Details Date Type Department Care Team (Late st Contact Info) Description 08/17/2021 Transcribed Document [facility] [place] [address] [place] [address] ProviderMaría MD [address] [id number] Social History Tobacco Use Types Packs/Day Years [...]
--- OUTSIDE RECORDS SUMMARY | 2025-01-03 13:39 | XMS_ITS | Encounter Summary ---
Author Organization [employer] ([place], [place], [place], [place]) Address [address] [place] [address] Care Team Providers Care Leather Grader Name Role Phone Unavailable Primary Care Provider Unavailabl e Encounter Details Date Type Department Care Team (Late st Contact Info) Description 08/19/2021 Transcribed Document [facility] [place] [facility] [place] [address] ProviderMaría MD [address] [place] [address] Social History Tobacco Use Types [...] On: 08/19/2021 14:01 EDT by JEANNETTE MANCERA Mexican Food Machine Tender Final Discharge Planning Discharge Arrangements : Patient [...] Services (Related/SOC within 3 days)-06 JEANNETTE MANCERA Mexican Food Machine Tender - 08/19/2021 14:01 EDT Final Narrative Note [...] and in agreement with plan. JEANNETTE MANCERA Mexican Food Machine Tender - 08/19/2021 14:01 EDT Electronically signed by Tomeka [facility] Conversion Medical Device Sales Consultant Cerner at 09/18/2022 9:26 AM CDT documented in this encounter Plan of Treatment Not on file documented as of this encounter Visit Diagnoses Not on filedocumented in this encounter
--- OUTSIDE RECORDS SUMMARY | 2025-01-03 13:39 | XMS_ITS | Encounter Summary ---
Author Organization [employer] ([place], [place], [place], [place]) Address [address] [place] [address] Care Team Providers Care Mortarman Name Role Phone Unavailable Primary Care Provider Unavailabl e Encounter Details Date Type Department Care Team (Late st Contact Info) Description 08/19/2021 Transcribed Document [facility] [place] [facility] [place] [address] ProviderMaría MD [address] [place] [address] Social History Tobacco Use Types [...] change in location/level of care Rapid Response Mortarman #1 : Carin Hernandez V, Rn Carin Hernandez V Rn - 08/19/2021 1:01 EDT documented in this encounter Plan of Treatment Not on file documented as of this encounter Visit Diagnoses Not on filedocumented in this encounter
--- OUTSIDE RECORDS SUMMARY | 2025-01-03 13:39 | XMS_ITS | Encounter Summary ---
Author Organization [employer] ([place], [place], [place], [place]) Address [address] [place] [address] Care Team Providers Care Dry Wall Applicator Name Role Phone Unavailable Primary Care Provider Unavailabl e Encounter Details Date Type Department Care Team (Late st Contact Info) Description 08/19/2021 Transcribed Document [facility] [place] [facility] [place] [address] ProviderMaría MD [address] [place] [address] Social History Tobacco Use Types [...] Associated Diagnoses: None Author: Todd Davidson, HIM SPECIALISTS-PHARMACIST Pain Management Pharmacy Consultation HPI: [id number] [...] respiratory arrest last month and admitted to [facility]. Patient CO2 was reportedly greater than 100. Patient was admitted and eventually had to have a trach and peg placed. Patient was tolerating po intake and was about to have peg tube removed next week. Relevant PMH: peg tube placement, recent respiratory arrest, obstructive sleep apnea, tobacco abuse, morbid obesity. Indication: pain security management specialist MD: Saleem Jimenes Allergies: metoclopramide [...] for this consult, Hany BaumannD, MPH PGY1 Roof Technician Pager: [phone] documented in this encounter Plan of Treatment Not on file documented as of this encounter Visit Diagnoses Not on filedocumented in this encounter
--- OUTSIDE RECORDS SUMMARY | 2025-01-03 13:39 | XMS_ITS | Clinical Summary ---
Author Organization [facility] Address [address] [place] [id number] Phone Care Team Providers Care Counter Pocket Sewer Name Role Phone Unavailable Primary Care Provider [...] 07/27/2021 2:14 PM EST Plan of Treatment Health Maintenance Due Date Last Done Comments CT Colonography 1974 Colonoscopy 1974 Colorectal Cancer Screening 1974 FIT-DNA (Cologuard) 1974 FIT 1974 FOBT 1974 HPV/PAP 1974 Sigmoidoscopy 1974 Annual Visit Topic 1975 MMR Vaccines (1 of 1 - Stand paramjit series) 1975 Hepatitis C Screening 01/12/1992 DTaP/Tdap/Td Vaccines (1 - Tdap) 1993 Hepatitis B Vaccines (1 of 3 - 19+ 3-dose series) 1993 Pap Smear 1995 Cervical Cancer Screening 01/12/2004 HPV/Cotest 01/12/2004 HPV 01/12/2004 Mammogram 2014 HIB Vaccines Aged Out No longer eligi ble based on patient's age to complete this topic HPV Vaccines Aged Out No longer eligi ble based on patient's age to complete this topic Hepatitis A Vaccines Aged Out No long er eligible based on patient's age to complete this topic IPV Vaccines Aged Out No longer eligi ble based on patient's age to complete this topic Meningococcal Vaccine Aged Out No timothy katharine eligible based on patient's age to complete this topic Pneumococcal Vaccine: Pediat rics (0 to 5 years) and At-Risk Patients (6 to 64 Years) Aged Out No longer eligible b ased on patient's age to complete this topic Advance Directives * Full Resuscitation (Latest Code Status on File) Date Activated Date Inactivated Comments 07/27/2021 4:37 PM 08/11/2021 4:36 PM
--- OUTSIDE RECORDS SUMMARY | 2025-01-03 13:39 | XMS_ITS | Encounter Summary ---
Author Organization [employer] ([place], [place], [place], [place]) Address [address] [place] [address] Care Team Providers Care Geneticist Name Role Phone Unavailable Primary Care Provider Unavailabl e Encounter Details Date Type Department Care Team (Late st Contact Info) Description 08/19/2021 Transcribed Document [facility] [place] [address] ProviderMaría MD [address] [place] [address] Social History Tobacco Use Types [...] HEMA METCALF, PT - 08/19/2021 14:14 EDT Special Client Bus Driver Goals Mobility/Bed Mobility LTG PT Grid Goal [...]
--- OUTSIDE RECORDS SUMMARY | 2025-01-03 13:39 | XMS_ITS | Encounter Summary ---
Author Organization [employer] ([place], [place], [place], [place]) Address [address] [place] [address] Care Team Providers Care Flag Car Driver Name Role Phone Unavailable Primary Care Provider Unavailabl e Encounter Details Date Type Department Care Team (Late st Contact Info) Description 08/17/2021 Transcribed Document [facility] [place] [facility] [place] [address] ProviderMaría MD [address] [place] [address] Social History Tobacco Use Types [...] EDT Pain Scale Intensity : 0 Quynh Gnuter RN - 08/18/2021 2:01 EDT Image 4 - Images currently included in the form version of this document have not been included in the text rendition version of the form. documented in this encounter Plan of Treatment Not on file documented as of this encounter Visit Diagnoses Not on filedocumented in this encounter
--- OUTSIDE RECORDS SUMMARY | 2025-01-03 13:39 | XMS_ITS | Encounter Summary ---
Author Organization [employer] ([place], [place], [place], [place]) Address [address] [place] [address] Care Team Providers Care Core Carrier Name Role Phone Unavailable Primary Care Provider Unavailabl e Encounter Details Date Type Department Care Team (Late st Contact Info) Description 08/19/2021 Transcribed Document [facility] Radiology [address] [place] [address] Saleem Jimenes MD [address] [place] [address] Social History Tobacco Use Types Packs/Day [...] mg, 12 mL, 124 mL/Hr, IV Piggyback, [id number] Dulcolax Laxative: 5 mg, Oral, Daily, PRN: Constipation DuoNeb 0.5 mg-2.5 mg/3 mL inhalation solution: 3 mL, Nebulized Inhalation, RT_Q6H, PRN: Shortness of Breath Flagyl: 500 mg, Oral, TID Geodon: 40 mg, Oral, BID HYDROmorphone: 2 mg, Oral, Q4H, PRN: Breakthrough Pain Imitrex: 100 mg, Oral, Daily, PRN: Migraine Headache LaMICtal: 100 mg, Oral, Daily Lovenox: 40 mg, SubCutaneous, [id number] MiraLax: 17 Gram, Oral, Daily, PRN: Constipation [...] mL 600 mg 12 mL, IV Piggyback, [id number] enoxaparin 40 mg/0.4 mL inj 40 mg 0.4 mL, SubCutaneous, [id number] famotidine 20 mg tab 20 mg 1 [...] History of obstructive sleep apnea / IMO [id number] / Confirmed Suicide risk / IMO 74484 / Confirmed, Active Problems (2) History of [...] 29.4 \ Radiology Results (Last 48 hours) [id number] -- 08/14/2021 22:53 CR Chest 1 Vw [...]
--- OUTSIDE RECORDS SUMMARY | 2025-01-03 13:39 | XMS_ITS | Encounter Summary ---
Author Organization [employer] ([place], [place], [place], [place]) Address [address] [place] [address] Care Team Providers Care Pipefitter Welder Name Role Phone Unavailable Primary Care Provider Unavailabl e Encounter Details Date Type Department Care Team (Late st Contact Info) Description 08/19/2021 Transcribed Document [facility] [place] Family Medicine [facility] [place] [address] ProviderMaría MD [address] [place] [address] Social History Tobacco Use Types [...] and about to have PEG tube removed cigarette catcher. GI plans for removal today. Pt busy [...]
--- OUTSIDE RECORDS SUMMARY | 2025-01-03 13:39 | XMS_ITS | Encounter Summary ---
Author Organization [employer] ([place], [place], [place], [place]) Address [address] [place] [address] Care Team Providers Care Chemical Processing Technician Name Role Phone Unavailable Primary Care Provider Unavailabl e Encounter Details Date Type Department Care Team (Late st Contact Info) Description 08/19/2021 Transcribed Document [facility] [place] Family Medicine [facility] [place] [address] ProviderMaría MD [address] [place] [address] Social History Tobacco Use Types [...] On: 08/19/2021 11:33 EDT by Zara Donald, Liquid Sugar Fortifier Primary Insurance Authorization Authorization and Policy Numbers : Insurance 1 Health Plan: [facility] Policy Number: [id number] Authorization Number: Insurance Primary Name : [facility] Policy Number: [id number] Authorization Status-Primary : Apprv contin stay Reference Number-Primary : [id number] Authorization Number-Primary : [id number] Number of Days Authorized-Primary : 9 Day(s) Authorized Service Begin Date-Primary : 08/14/2021 EST Authorized Service End Date-Primary : 08/23/2021 EDT Authorization Comments-Primary : Authorized per fax 08/19/21 @ 0837. This request for inpatient services has been approved x10 days. Next review due 08/24/21. -Efrem Gillette RN. Historical Authorization Comments-Primary : Comment 1: c/s review for inpt faxed wo to [facility] via cerner. (VASYL HIGGINS, RN-Floor Service Worker [place] 08/19/2021 09:00) Comment 2: inpt admit approved per fax from [facility] 08/16/21 auth# [id number] NRD 08-19-21 (EBEN HURTADO, Percussion Tuner 08/16/2021 12:52) Comment 3: Clinicals submitted on [facility] website for IP approval (ROBERTO CARLOS CISNEROS RN 08/15/2021 12:09) Zara Donald, Liquid Sugar Fortifier - 08/19/2021 11:33 EDT documented in this encounter Plan of Treatment Not on file documented as of this encounter Visit Diagnoses Not on filedocumented in this encounter
--- OUTSIDE RECORDS SUMMARY | 2025-01-03 13:39 | XMS_ITS | Encounter Summary ---
Author Organization [employer] ([place], [place], [place], [place]) Address [address] [place] [address] Care Team Providers Care Personnel Placement Specialist Name Role Phone Unavailable Primary Care Provider Unavailabl e Encounter Details Date Type Department Care Team (Late st Contact Info) Description 08/19/2021 Transcribed Document [facility] [place] Family Medicine [facility] [place] [address] ProviderMaría MD [address] [place] [address] Social History Tobacco Use Types Packs/Day [...]
--- OUTSIDE RECORDS SUMMARY | 2025-01-03 13:39 | XMS_ITS | Encounter Summary ---
Author Organization [employer] ([place], [place], [place], [place]) Address [address] [place] [address] Care Team Providers Care Chief Librarian Branch Or Department Name Role Phone Unavailable Primary Care Provider Unavailabl e Encounter Details Date Type Department Care Team (Late st Contact Info) Description 08/19/2021 Transcribed Document [facility] Radiology [address] [place] [address] Saleem Jimenes MD [address] [place] [address] Social History Tobacco Use Types Packs/Day [...] 08/19/2021 16:06 Primary Care Provider EMY MUSA (REF)MD-[facility] Discharge Diagnosis: Anterior abdominal wall [...] arrest last month and was admitted to [facility]. Patient CO2 was reportedly greater than 100. Patient was admitted and eventually had to have a trach and PEG placed. Patient was transferred from [place] and was admitted at [facility], recently just being discharged 3 days ago. [...] Home Discharge Follow Up EMY MUSA (REF), -[facility] - 11:30 AM Discharge Medications [...]
--- OUTSIDE RECORDS SUMMARY | 2025-01-03 13:39 | XMS_ITS | Encounter Summary ---
Author Organization [employer] ([place], [place], [place], [place]) Address [address] [place] [address] Care Team Providers Care Research Professor Name Role Phone Unavailable Primary Care Provider Unavailabl e Encounter Details Date Type Department Care Team (Late st Contact Info) Description 08/19/2021 Transcribed Document [facility] [place] Family Medicine [address] [place] [address] ProviderMaría MD [address] [place] [address] Social History Tobacco Use Types [...]
--- OUTSIDE RECORDS SUMMARY | 2025-01-03 13:39 | XMS_ITS | Encounter Summary ---
Author Organization [employer] ([place], [place], [place], [place]) Address [address] [place] [address] Care Team Providers Care Barytes Grinder Name Role Phone Unavailable Primary Care Provider Unavailabl e Encounter Details Date Type Department Care Team (Late st Contact Info) Description 08/19/2021 Transcribed Document [facility] [place] [facility] [address] [place] [address] ProviderMaría MD [address] [place] [address] Social History Tobacco Use Types [...] Historical ProviderMD - 08/19/2021 3:00 AM CDT Worm Raiser Details Entered On: 08/19/2021 2:25 EDT Performed [...] RN - International - 08/19/2021 2:25 EDT Electronically signed by Roman Eckert Conversion Cracker And Cookie Machine Operator Cerner at 09/18/2022 8:52 AM CDT documented in this encounter Plan of Treatment Not on file documented as of this encounter Visit Diagnoses Not on filedocumented in this encounter
--- OUTSIDE RECORDS SUMMARY | 2025-01-03 13:39 | XMS_ITS | Encounter Summary ---
Author Organization [employer] ([place], [place], [place], [place]) Address [address] [place] [address] Care Team Providers Care Freight Rate Specialist Name Role Phone Unavailable Primary Care Provider Unavailabl e Encounter Details Date Type Department Care Team (Late st Contact Info) Description 08/14/2021 Transcribed Document [facility] [place] [facility] [place] [address] ProviderMaría MD [address] [place] [address] Social History Tobacco Use Types Packs/Day [...] - Historical Provider, - 08/14/2021 11:19 PM HORSES OR MULES TEAMSTER Evaluation, Physical Therapy Entered On: 08/15/2021 10:47 EDT Performed On: 08/15/2021 9:50 EDT by SONY REYNA PT General Information, PT Visit Type, PT [...] SONY REYNA, PT - 08/15/2021 10:36 EDT Imaging Engineer Goals Mobility/Bed Mobility LTG PT Grid [...] SONY REYNA, PT - 08/15/2021 10:36 EDT [place] [facility] PT Charges PT Eval Moderate Complexity : 1 SONY REYNA, PT - 08/15/2021 10:36 EDT documented in this encounter Plan of Treatment Not on file documented as of this encounter Visit Diagnoses Not on filedocumented in this encounter
--- OUTSIDE RECORDS SUMMARY | 2025-01-03 13:39 | XMS_ITS | Encounter Summary ---
Author Organization [employer] ([place], [place], [place], [place]) Address [address] [place] [address] Care Team Providers Care Ice Skater Name Role Phone Unavailable Primary Care Provider Unavailabl e Encounter Details Date Type Department Care Team (Late st Contact Info) Description 08/17/2021 Transcribed Document [facility] [place] Family Medicine [address] [place] [address] ProviderMaría MD [address] [place] [address] Social History Tobacco Use Types [...]
--- OUTSIDE RECORDS SUMMARY | 2025-01-03 13:39 | XMS_ITS | Encounter Summary ---
Author Organization [employer] ([place], [place], [place], [place]) Address [address] [place] [address] Care Team Providers Care Gas Systems Worker Name Role Phone Unavailable Primary Care Provider Unavailabl e Encounter Details Date Type Department Care Team (Late st Contact Info) Description 08/19/2021 Transcribed Document [facility] [facility] [place] [address] ProviderMaría MD [address] [place] [address] Social History Tobacco Use Types [...] COVID-19 pneumonia, and recent respiratory arrest at [facility] requiring tracheostomy/PEG about a month ago with transfer to [facility]. She was discharged on 08/11. She has been tolerating oral intake and was scheduled to have PEG removed next week. She began having pain around the PEG tube site around 3 days ago with the area becoming more red with burning sensation prompting her to come to [facility] ED on 08/14/21. She denies fever, [...] mL - 600 mg, IV Piggyback, Inj, [id number], infuse over 30 Minute(s), Routine metroNIDAZOLE (Flagyl) - 500 mg, Oral, Tab, TID, Routine Anticoagulant enoxaparin (Lovenox) - 40 mg, SubCutaneous, Inj, [id number], Routine Cardiovascular carvedilol - 12.5 mg, Oral, [...] No tenderness, No deformity. Integumentary: Warm, Dry, [place], No pallor, No rash, PEG tube site [...] Critical Care - Code Management Assessment: ACC: [id number] ORDER: Culture Wound and Stain DATE: 08/15/2021 [...] cells seen No organisms seen. == ACC: [id number] ORDER: Culture Wound and Stain DATE: 08/15/2021 [...] seen. Few White Blood Cells == ACC: [id number] ORDER: Culture Blood DATE: 08/14/2021 19:11 SOURCE: Blood SITE: Reports Pre 08/18/2021 23:01 No growth at 4 days. Pre 08/17/2021 23:01 No growth at 3 days. Pre 08/16/2021 23:01 No growth at 2 days. Pre 08/15/2021 23:01 No growth at 1 day. Pre 08/15/2021 16:01 Culture less than 24 Hrs old == ACC: [id number] ORDER: Culture Blood DATE: 08/14/2021 19:11 SOURCE: [...]
--- OUTSIDE RECORDS SUMMARY | 2025-01-03 13:39 | XMS_ITS | Encounter Summary ---
Author Organization [employer] ([place], [place], [place], [place]) Address [address] [place] [address] Care Team Providers Care Esol Teacher Assistant Name Role Phone Unavailable Primary Care Provider Unavailabl e Encounter Details Date Type Department Care Team (Late st Contact Info) Description 08/19/2021 Transcribed Document [facility] [facility] [place] [address] ProviderMaría MD [address] [place] [address] Social History Tobacco Use [...] Historical ProviderMD - 08/19/2021 3:34 PM CDT [facility] [place] [place] [id number] ZANDER LUCERO :1975 Visit Time:08/14/2021 Your Visit [...] [facility] Home Health Services: [facility] [phone] Medical Equipment for Home Use: Patient Aides (your medical equipment provider)[phone] Transportation: family Discharge Activity: Discharge Activity: Activity as tolerated Diet: Discharge Diet: Heart healthy diet Follow-Up Appointments Follow Up with EMY MUSA (REF)ZACHARY When 08/30/2021 11:30 AM EDT Comments Primary care follow up appointment has been made Bring discharge instructions with you Where: [address] [place] [address] THANH Philippe [address]- [phone] Medications What How Much When Instructions Next Dose amoxicillin-clavulanate (Augmentin 500 mg-125 mg oral tablet) 1 Tablet(s) Oral Every 12 hours Duration: 7 Day(s) Pickup at [facility] carvedilol (carvedilol 12.5 mg oral tablet) 1 Tablet(s) Oral Two Times A Day Duration: 30 Day(s) Pickup at [facility] doxycycline (doxycycline hyclate 100 mg oral tablet) 1 Tablet(s) Oral Two Times A Day Duration: 7 Day(s) Pickup at [facility] guaiFENesin (Mucinex 600 mg oral tablet, extended release) 2 Tablet(s) Oral Two Times A Day Duration: 7 Day(s) Pickup at [facility] metroNIDAZOLE (Flagyl 500 mg oral tablet) 1 Tablet(s) Oral Three Times A Day Duration: 6 Day(s) Pickup at [facility] furosemide (furosemide 20 mg oral tablet) [...] Oral Two Times A Day Pharmacy Information [facility] [place]: [address] [facility] [address] [place], [place] [id number] [phone] Take your medications faithfully. Do NOT skip [...] including vitamins, herbs, eye drops, creams, and ubrj-obr-tvjljfh medicines. ??? Any problems you or family [...] tells you to take them. ? Taking ioid-zay-iksqhlx medicines, vitamins, herbs, and supplements. ??? Do [...] provider. Document Revised: 10/02/2020 Document Reviewed: 10/02/2020 [employer] Patient Education ?? 2020 [employer]. amoxicillin and clavulanate potassium (am OK i [...] may report side effects to FDA at 1-359-TFE-2040. What other drugs will affect amoxicillin and clavulanate potassium? Tell your doctor about all your other medicines, especially: ?? allopurinol; ?? probenecid; or ?? a blood thinner--warfarin, Coumadin, Jantoven. This list is not complete. Other drugs may affect amoxicillin and clavulanate potassium, including prescription and nalm-mon-vpxrrsp medicines, vitamins, and herbal products. Not all [...] to ensure that the information provided by [employer] ('[employer]') is accurate, up-to-date, and complete, but no guarantee is made to that effect. Drug information contained herein may be time sensitive. [employer] information has been compiled for use by healthcare practitioners and consumers in the [place] and therefore [employer] does not warrant that uses outside of the [place] are appropriate, unless specifically indicated otherwise. [employer] drug information does not endorse drugs, diagnose patients or recommend therapy. [employer] drug information is an informational resource designed [...] effective or appropriate for any given patient. [employer] does not assume any responsibility for any aspect of healthcare administered with the aid of information [employer] provides. The information contained herein is not intended to cover all possible uses, directions, precautions, warnings, drug interactions, allergic reactions, or adverse effects. If you have questions about the drugs you are taking, check with your doctor, nurse or pharmacist. Copyright 5551-1957 [employer]. Version: 12.. Revision Date: 07/29/2019. carvedilol (AVEL [...] may report side effects to FDA at 7-551-YTA-7424. What other drugs will affect carvedilol? Sometimes it is not safe to use certain medications at the same time. Some drugs can affect your blood levels of other drugs you take, which may increase side effects or make the medications less effective. Other drugs may affect carvedilol, including prescription and bwna-eln-nebdief medicines, vitamins, and herbal products. Tell your [...] to ensure that the information provided by [employer]') is accurate, up-to-date, and complete, but no guarantee is made to that effect. Drug information contained herein may be time sensitive. [employer] information has been compiled for use by healthcare practitioners and consumers in the [place] and therefore [employer] does not warrant that uses outside of the [place] are appropriate, unless specifically indicated otherwise. [employer] drug information does not endorse drugs, diagnose patients or recommend therapy. [employer] drug information is an informational resource designed [...] effective or appropriate for any given patient. [employer] does not assume any responsibility for any aspect of healthcare administered with the aid of information [employer] provides. The information contained herein is not intended to cover all possible uses, directions, precautions, warnings, drug interactions, allergic reactions, or adverse effects. If you have questions about the drugs you are taking, check with your doctor, nurse or pharmacist. Copyright 9274-0402 [employer]. Version: 16.. Revision Date: 09/27/2018. doxycycline (oral/injection) [...] or life-threatening conditions such as anthrax or [place] spotted fever. The benefit of treating a [...] may report side effects to FDA at 8-809-KYK-6385. What other drugs will affect doxycycline? Sometimes it is not safe to use certain medications at the same time. Some drugs can affect your blood levels of other drugs you take, which may increase side effects or make the medications less effective. Other drugs may affect doxycycline, including prescription and hziq-axr-tpghrlb medicines, vitamins, and herbal products. Tell your [...] to ensure that the information provided by [employer]') is accurate, up-to-date, and complete, but no guarantee is made to that effect. Drug information contained herein may be time sensitive. [employer] information has been compiled for use by healthcare practitioners and consumers in the [place] and therefore [employer] does not warrant that uses outside of the [place] are appropriate, unless specifically indicated otherwise. [employer] drug information does not endorse drugs, diagnose patients or recommend therapy. [employer] drug information is an informational resource designed [...] effective or appropriate for any given patient. [employer] does not assume any responsibility for any aspect of healthcare administered with the aid of information [employer] provides. The information contained herein is not intended to cover all possible uses, directions, precautions, warnings, drug interactions, allergic reactions, or adverse effects. If you have questions about the drugs you are taking, check with your doctor, nurse or pharmacist. Copyright 1359-3107 [employer] Version: 21.04. Revision Date: 04/08/2020. metronidazole (oral/injection) [...] (more likely to occur while taking metronidazole bed bug exterminator): ?? numbness, tingling, or burning pain [...] may report side effects to FDA at 3-140-UBT-6020. What other drugs will affect metronidazole? Sometimes [...] may affect metronidazole. This includes prescription and csfr-bfy-jjxoalj medicines, vitamins, and herbal products. Not all [...] to ensure that the information provided by [employer]') is accurate, up-to-date, and complete, but no guarantee is made to that effect. Drug information contained herein may be time sensitive. [employer] information has been compiled for use by healthcare practitioners and consumers in the [place] and therefore [employer] does not warrant that uses outside of the [place] are appropriate, unless specifically indicated otherwise. [employer] drug information does not endorse drugs, diagnose patients or recommend therapy. [employer] drug information is an informational resource designed [...] effective or appropriate for any given patient. [employer] does not assume any responsibility for any aspect of healthcare administered with the aid of information [employer] provides. The information contained herein is not intended to cover all possible uses, directions, precautions, warnings, drug interactions, allergic reactions, or adverse effects. If you have questions about the drugs you are taking, check with your doctor, nurse or pharmacist. Copyright [id number] [employer]. Version: 15.. Revision Date: 02/11/2021. guaifenesin (gwye [...] may report side effects to FDA at 9-202-ICU-1313. What other drugs will affect guaifenesin ? Avoid using this medicine with other drugs that cause drowsiness or slow your breathing (such as opioid medicine, a muscle relaxer, or medicine for anxiety or seizures). Ask a doctor or pharmacist before using any other medication, including prescription and kiij-hvo-qmfptyb medicines, vitamins, and herbal products. Not all [...] to ensure that the information provided by [employer] ('[employer]') is accurate, up-to-date, and complete, but no guarantee is made to that effect. Drug information contained herein may be time sensitive. [employer] information has been compiled for use by healthcare practitioners and consumers in the [place] and therefore [employer] does not warrant that uses outside of the [place] are appropriate, unless specifically indicated otherwise. [employer]'s drug information does not endorse drugs, diagnose patients or recommend therapy. [employer] drug information is an informational resource designed [...] effective or appropriate for any given patient. [facility] does not assume any responsibility for any aspect of healthcare administered with the aid of information [facility] provides. The information contained herein is not intended to cover all possible uses, directions, precautions, warnings, drug interactions, allergic reactions, or adverse effects. If you have questions about the drugs you are taking, check with your doctor, nurse or pharmacist. Copyright 0315-9742 [employer] Version: 7.01. Revision Date: 07/30/2018. Emergency [...] Assistance with quitting is available by contacting 1-759-KGYR-NOW. This is a free resource providing counseling, [...] and 14.9 ) ANC #: 3 K/uL Bergen Percent Man: 5 % -- Normal range between ( 4 and 5 ) Neutrophil Percent Man: 58 % -- Normal range between ( 50 and 65 ) Eos Percent Man: 6 % -- Normal range between ( 0 and 3 ) Anisocytosis: 1+ Platelet Ct Estimate: Adequate [place] Percent Man: 2 % -- Normal range [...] range between ( 0.0 and 7.0 ) Bergen #: 0.60 K/uL -- Normal range between ( 0.16 and 1.00 ) Eos #: 0.20 x10(3)/uL -- Normal range between ( 0.00 and 0.80 ) Bergen %: 9.7 % -- Normal range between [...] ) Urine Bilirubin Dipstick: Negative Urine Specific [place]: *1.028 -- Normal range between ( 1.005 [...] was given the opportunity to ask questions. Patient/Kitchen Utility Associate Name: Electronically signed by Tomeka, [facility] Conversion Comptroller Cerner at 09/18/2022 8:55 AM CDT documented in this encounter Plan of Treatment Not on file documented as of this encounter Visit Diagnoses Not on filedocumented in this encounter
--- OUTSIDE RECORDS SUMMARY | 2025-01-03 13:39 | XMS_ITS | Encounter Summary ---
Author Organization [employer] ([place], [place], [place], [place]) Address [address] [place] [address] Care Team Providers Care Aix System Administrator Name Role Phone Unavailable Primary Care Provider Unavailabl e Encounter Details Date Type Department Care Team (Late st Contact Info) Description 08/17/2021 Transcribed Document [facility] [place] Family Medicine [facility] [place] [address] ProviderMaría MD [address] [place] [address] Social History Tobacco Use Types [...] 1975 Associated Diagnoses: None Author: Todd Davidson, DEGREASING SOLUTION RECLAIMER-PHARMACIST Pain Management Pharmacy Consultation HPI: [id number] [...] respiratory arrest last month and admitted to [facility]. Patient CO2 was reportedly greater than 100. Patient was admitted and eventually had to have a trach and peg placed. Patient was tolerating po intake and was about to have peg tube removed next week. Relevant PMH: peg tube placement, recent respiratory arrest, obstructive sleep apnea, tobacco abuse, morbid obesity. Indication: pain records management clerk MD: Saleem Jimenes Allergies: metoclopramide Outpatient Pain [...]
--- OUTSIDE RECORDS SUMMARY | 2025-01-03 13:39 | XMS_ITS | Encounter Summary ---
Author Organization [employer] ([place], [place], [place], [place]) Address [address] [place] [address] Care Team Providers Care Scientific Illustrator Name Role Phone Unavailable Primary Care Provider Unavailabl e Encounter Details Date Type Department Care Team (Late st Contact Info) Description 08/19/2021 Transcribed Document [facility] [place] Family [place] [facility] [address] ProviderMaría MD [address] [place] [address] Social History Tobacco Use Types [...] On: 08/19/2021 9:00 EDT by VASYL HIGGINS, EWA-Snuff Packing Machine OperatorMedical Office Coordinator Insurance Authorization Authorization and Policy Numbers : Insurance 1 Health Plan: [facility] Policy Number: [id number] Authorization Number: Insurance Primary Name : [facility] Policy Number: [id number] Authorization Status-Primary : Admit approved Reference Number-Primary : [id number] Authorization Number-Primary : [id number] Number of Days Authorized-Primary : 4 Day(s) Authorized Service Begin Date-Primary : 08/14/2021 EST Authorized Service End Date-Primary : 08/18/2021 EDT Authorization Comments-Primary : c/s review for inpt faxed wo to [facility] via [employer]. Historical Authorization Comments-Primary : Comment 1: inpt admit approved per fax from [facility] 08/16/21 auth# [id number] NRD 08-19-21 (EBEN HURTADO, Ambulance Operations Supervisor 08/16/2021 12:52) Comment 2: Clinicals submitted on [facility] website for IP approval (ROBERTO CARLOS CISNEROS RN 08/15/2021 12:09) VASYL HIGGINS, EWA-Snuff Packing Machine Operator - 08/19/2021 9:00 EDT Electronically signed by Tomeka luis enrique Conversion Line Ordering Clinician Cerner at 09/18/2022 9:21 AM CDT documented in this encounter Plan of Treatment Not on file documented as of this encounter Visit Diagnoses Not on filedocumented in this encounter
--- OUTSIDE RECORDS SUMMARY | 2025-01-03 13:39 | XMS_ITS | Encounter Summary ---
Author Organization [employer] ([place], [place], [place], [place]) Address [address] [place] [address] Care Team Providers Care Keyseating Machine Set Up Operator Name Role Phone Unavailable Primary Care Provider Unavailabl e Encounter Details Date Type Department Care Team (Late st Contact Info) Description 08/17/2021 Transcribed Document [facility] [place] Family Medicine [place] [address] ProviderMaría MD [address] [place] [address] Social History Tobacco Use Types [...]
--- OUTSIDE RECORDS SUMMARY | 2025-01-03 13:39 | XMS_ITS | Encounter Summary ---
Author Organization [employer] ([place], [place], [place], [place]) Address [address] [place] [address] Care Team Providers Care Cotton Jammer Name Role Phone Unavailable Primary Care Provider Unavailabl e Encounter Details Date Type Department Care Team (Late st Contact Info) Description 08/19/2021 Transcribed Document [facility] [place] Family Medicine [facility] [place] [address] ProviderMaría MD [address] [place] [address] Social History Tobacco Use Types [...] including vitamins, herbs, eye drops, creams, and xsvm-ydc-pezpsbu medicines. ??? Any problems you or family [...] tells you to take them. ? Taking akjf-yui-wigdtms medicines, vitamins, herbs, and supplements. ??? Do [...] provider. Document Revised: 10/02/2020 Document Reviewed: 10/02/2020 [employer] Patient Education ? 2020 [employer] documented in this encounter Plan of Treatment Not on file documented as of this encounter Visit Diagnoses Not on filedocumented in this encounter
--- OUTSIDE RECORDS SUMMARY | 2025-01-03 13:39 | XMS_ITS | Encounter Summary ---
Author Organization [employer] ([place], [place], [place], [place]) Address [address] [place] [address] Care Team Providers Care Emergency Communications Dispatcher Name Role Phone Unavailable Primary Care Provider Unavailabl e Encounter Details Date Type Department Care Team (Late st Contact Info) Description 08/17/2021 Transcribed Document [facility] [place] Family Medicine [facility] [place] [address] ProviderMaría MD [address] [place], [place] [...] change in location/level of care Rapid Response Emergency Communications Dispatcher #1 : Carin Hernandez V, Rn Carin Hernandez V, Rn - 08/17/2021 5:25 EDT documented in this encounter Plan of Treatment Not on file documented as of this encounter Visit Diagnoses Not on filedocumented in this encounter
--- OUTSIDE RECORDS SUMMARY | 2025-01-03 13:39 | XMS_ITS | Encounter Summary ---
Author Organization [employer] ([place], [place], [place], [place]) Address [address] [place] [address] Care Team Providers Care Student Career Development Specialist Name Role Phone Unavailable Primary Care Provider Unavailabl e Encounter Details Date Type Department Care Team (Late st Contact Info) Description 08/19/[address] [facility] [place] [facility] [place] [address] ProviderMaría MD [address] [place] [address] Social History Tobacco Use Types [...] Historical ProviderMD - 08/19/2021 3:18 PM CDT [facility] [place], [place] [id number] ZANDER LUCERO :1975 Visit Time:08/14/2021 Your Visit [...] [facility] Home Health Services: [facility] [phone] Medical Equipment for Home Use: Patient Aides (your medical equipment provider)[phone] Transportation: family Discharge Activity: Discharge Activity: Activity as tolerated Diet: Discharge Diet: Heart healthy diet Follow-Up Appointments Follow Up with EMY MUSA (REF)ZACHARY When 08/30/2021 11:30 AM EDT Comments Primary care follow up appointment has been made Bring discharge instructions with you Where: [address] [place] [address] THANH Philippe [address]- [phone] Medications What How Much When Instructions Next Dose carvedilol (carvedilol 12.5 mg oral tablet) 1 Tablet(s) Oral Two Times A Day Duration: 30 Day(s) Pickup at [facility]ending [facility] To [facility] [place] [address] 9 doxycycline (doxycycline hyclate 100 mg oral tablet) 1 Tablet(s) Oral Two Times A Day Duration: 7 Day(s) Pickup at [place] [address] 9 guaiFENesin (Mucinex 600 mg oral tablet, extended release) 2 Tablet(s) Oral Two Times A Day Duration: 7 Day(s) Pickup at [facility]ending [facility] To [facility] [place] [address] 9 metroNIDAZOLE (Flagyl 500 mg oral tablet) 1 Tablet(s) Oral Three Times A Day Duration: 6 Day(s) Pickup at [place] [address] 9 furosemide (furosemide 20 mg oral tablet) [...] Oral Two Times A Day Pharmacy Information P[facility] [place]: [address] [facility] [address] [place], [place] [id number] [phone] Take your medications faithfully. Do NOT skip [...] including vitamins, herbs, eye drops, creams, and dcls-zml-xktaucx medicines. ??? Any problems you or family [...] tells you to take them. ? Taking jhud-ymd-hpilkyr medicines, vitamins, herbs, and supplements. ??? Do [...] provider. Document Revised: 10/02/2020 Document Reviewed: 10/02/2020 [employer] Patient Education ?? 2020 [employer]. amoxicillin and clavulanate potassium (am [place] i [...] may report side effects to FDA at 7-815-QXC-7893. What other drugs will affect amoxicillin and clavulanate potassium? Tell your doctor about all your other medicines, especially: ?? allopurinol; ?? probenecid; or ?? a blood thinner--warfarin, Coumadin, Jantoven. This list is not complete. Other drugs may affect amoxicillin and clavulanate potassium, including prescription and xvap-enz-tcweuqb medicines, vitamins, and herbal products. Not all [...] to ensure that the information provided by [employer]. ('[employer]') is accurate, up-to-date, and complete, but no guarantee is made to that effect. Drug information contained herein may be time sensitive. [employer] information has been compiled for use by healthcare practitioners and consumers in the [place] and therefore [employer] does not warrant that uses outside of the [place] are appropriate, unless specifically indicated otherwise. [employer] drug information does not endorse drugs, diagnose patients or recommend therapy. [employer] drug information is an informational resource designed [...] effective or appropriate for any given patient. [employer] does not assume any responsibility for any aspect of healthcare administered with the aid of information [employer] provides. The information contained herein is not intended to cover all possible uses, directions, precautions, warnings, drug interactions, allergic reactions, or adverse effects. If you have questions about the drugs you are taking, check with your doctor, nurse or pharmacist. Copyright 1368-3809 [employer]. Version: 12.. Revision Date: 07/29/2019. carvedilol (AVEL [...] may report side effects to FDA at 4-068-GNM-1547. What other drugs will affect carvedilol? Sometimes it is not safe to use certain medications at the same time. Some drugs can affect your blood levels of other drugs you take, which may increase side effects or make the medications less effective. Other drugs may affect carvedilol, including prescription and nlir-aap-xlhsplr medicines, vitamins, and herbal products. Tell your [...] to ensure that the information provided by [employer] ('[employer]') is accurate, up-to-date, and complete, but no guarantee is made to that effect. Drug information contained herein may be time sensitive. [employer] information has been compiled for use by healthcare practitioners and consumers in the [place] and therefore [employer] does not warrant that uses outside of the [place] are appropriate, unless specifically indicated otherwise. [employer] drug information does not endorse drugs, diagnose patients or recommend therapy. [employer] drug information is an informational resource designed [...] effective or appropriate for any given patient. [employer] does not assume any responsibility for any aspect of healthcare administered with the aid of information [employer] provides. The information contained herein is not intended to cover all possible uses, directions, precautions, warnings, drug interactions, allergic reactions, or adverse effects. If you have questions about the drugs you are taking, check with your doctor, nurse or pharmacist. Copyright 8257-7815 [employer]. Version: 16.01. Revision Date: 09/27/2018. doxycycline (oral/injection) [...] or life-threatening conditions such as anthrax or [place] spotted fever. The benefit of treating a [...] may report side effects to FDA at 5-820-TQX-2326. What other drugs will affect doxycycline? Sometimes it is not safe to use certain medications at the same time. Some drugs can affect your blood levels of other drugs you take, which may increase side effects or make the medications less effective. Other drugs may affect doxycycline, including prescription and evgo-irn-jkyuoem medicines, vitamins, and herbal products. Tell your [...] to ensure that the information provided by [employer]. ('[employer]') is accurate, up-to-date, and complete, but no guarantee is made to that effect. Drug information contained herein may be time sensitive. [employer] information has been compiled for use by healthcare practitioners and consumers in the [place] and therefore [employer] does not warrant that uses outside of the [place] are appropriate, unless specifically indicated otherwise. [employer] drug information does not endorse drugs, diagnose patients or recommend therapy. [employer] drug information is an informational resource designed [...] effective or appropriate for any given patient. [employer] does not assume any responsibility for any aspect of healthcare administered with the aid of information [employer] provides. The information contained herein is not intended to cover all possible uses, directions, precautions, warnings, drug interactions, allergic reactions, or adverse effects. If you have questions about the drugs you are taking, check with your doctor, nurse or pharmacist. Copyright 2814-5304 [employer]. Version: 21.04. Revision Date: 04/08/2020. metronidazole (oral/injection) [...] (more likely to occur while taking metronidazole intermediate manager): ?? numbness, tingling, or burning pain in [...] may report side effects to FDA at 9-902-EAA-6554. What other drugs will affect metronidazole? Sometimes [...] may affect metronidazole. This includes prescription and vyxd-anj-lcgwhwd medicines, vitamins, and herbal products. Not all [...] to ensure that the information provided by [employer]') is accurate, up-to-date, and complete, but no guarantee is made to that effect. Drug information contained herein may be time sensitive. [employer] information has been compiled for use by healthcare practitioners and consumers in the [place] and therefore [employer] does not warrant that uses outside of the [place] are appropriate, unless specifically indicated otherwise. [employer] drug information does not endorse drugs, diagnose patients or recommend therapy. [employer] drug information is an informational resource designed [...] effective or appropriate for any given patient. [employer] does not assume any responsibility for any aspect of healthcare administered with the aid of information [employer] provides. The information contained herein is not intended to cover all possible uses, directions, precautions, warnings, drug interactions, allergic reactions, or adverse effects. If you have questions about the drugs you are taking, check with your doctor, nurse or pharmacist. Copyright 7750-8313 [employer]. Version: 15.. Revision Date: 02/11/2021. guaifenesin (gwye [...] may report side effects to FDA at 1-073-AEE-6496. What other drugs will affect guaifenesin ? Avoid using this medicine with other drugs that cause drowsiness or slow your breathing (such as opioid medicine, a muscle relaxer, or medicine for anxiety or seizures). Ask a doctor or pharmacist before using any other medication, including prescription and riop-dsu-xykgqrr medicines, vitamins, and herbal products. Not all [...] to ensure that the information provided by [employer]. ('[employer]') is accurate, up-to-date, and complete, but no guarantee is made to that effect. Drug information contained herein may be time sensitive. [employer] information has been compiled for use by healthcare practitioners and consumers in the [place] and therefore [employer] does not warrant that uses outside of the [place] are appropriate, unless specifically indicated otherwise. [employer] drug information does not endorse drugs, diagnose patients or recommend therapy. [employer] drug information is an informational resource designed [...] effective or appropriate for any given patient. [facility] does not assume any responsibility for any aspect of healthcare administered with the aid of information [facility] provides. The information contained herein is not intended to cover all possible uses, directions, precautions, warnings, drug interactions, allergic reactions, or adverse effects. If you have questions about the drugs you are taking, check with your doctor, nurse or pharmacist. Copyright 8252-6243 [employer]. Version: 7.01. Revision Date: 07/30/2018. Emergency Awareness [...] Assistance with quitting is available by contacting 5-136-LJYE-NOW. This is a free resource providing counseling, [...] and 14.9 ) ANC #: 3 K/uL [place] Percent Man: 5 % -- Normal range between ( 4 and 5 ) Neutrophil Percent Man: 58 % -- Normal range between ( 50 and 65 ) Eos Percent Man: 6 % -- Normal range between ( 0 and 3 ) Anisocytosis: 1+ Platelet Ct Estimate: Adequate [place] Percent Man: 2 % -- Normal range [...] range between ( 0.0 and 7.0 ) [place] #: 0.60 K/uL -- Normal range between ( 0.16 and 1.00 ) Eos #: 0.20 x10(3)/uL -- Normal range between ( 0.00 and 0.80 ) [place] %: 9.7 % -- Normal range between [...] ) Urine Bilirubin Dipstick: Negative Urine Specific [place]: *1.028 -- Normal range between ( 1.005 [...] was given the opportunity to ask questions. Patient/Telephone Sales Representative Name: Patient/Telephone Sales Representative Signature: Relationship to Patient: Electronically signed by Tomeka, [facility] Conversion Quad Stayer Avery at 09/18/2022 9:25 AM CDT documented in this encounter Plan of Treatment Not on file documented as of this encounter Visit Diagnoses Not on filedocumented in this encounter
--- OUTSIDE RECORDS SUMMARY | 2025-01-03 13:39 | XMS_ITS | Encounter Summary ---
Author Organization [employer] ([place], [place], [place], [place]) Address [address] [place] [address] Care Team Providers Care Laboratory Director Name Role Phone Unavailable Primary Care Provider Unavailabl e Encounter Details Date Type Department Care Team (Late st Contact Info) Description 08/19/2021 Transcribed Document [facility] [place] Family Medicine [address] [place] [address] ProviderMaría MD [address] [place] [address] Social History Tobacco Use Types [...]
--- OUTSIDE RECORDS SUMMARY | 2025-01-03 13:39 | XMS_ITS | Encounter Summary ---
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 Says she has sleep apnea and her CO2 was greater than 100. She was admitted and have a trach and PEG placed. She says she was transferred to [facility] in [facility] and was just discharged 3 days ago. [...] hours oral tablet, extended release: Tab, Oral, [id number], 0 Refill(s) gabapentin 800 mg oral tablet: [...] EST Height Source Stated Height Entry Format [place] Height/Length, SOMALI (ft) 5 ft Height/Length SOMALI 1 Inch CLINICALHEIGHT 154.94 cm [place] Body Weight 47.45 kg Weight Source, ED Critical estimated dosing weight Weight Entry Format [place] Weight Somali lb 305 lb CLINICALWEIGHT 138.64 kg Body [...] nurses' notes, emergency department records, prior records. evp general counsel: Time 08/14/2021 19:16:00, Rate 112, Sinus Tachycardia. [...] 12.9 % LOW Lymph # 1.24 x10(3)/uL [place] % 9.3 % HI [place] # 0.89 K/uL Eos % 1.4 % Eos # 0.13 x10(3)/uL Baso % 0.3 % Baso # 0.03 x10(3)/uL Slide Review No IG# 0.12 x10(3)/uL HI IG% 1.30 % HI PT 9.7 Second(s) INR 0.9 PTT 27.5 Second(s) Procalcitonin <0.25 ng/mL Influenza A Negative Influenza B Negative SARS-CoV-2 (COVID19 PCR) Negative . Radiology results: Radiology Results (Last 48 hours) [id number] -- 08/14/2021 22:53 CT Abdomen Pelvis W [...] LOS SANTOS, DO-INT. Electronically signed by Tomeka [facility] Conversion Insole And Heel Stiffener Cerner at 09/18/2022 9:34 AM CDT documented in this encounter Plan of Treatment Not on file documented as of this encounter Visit Diagnoses Not on filedocumented in this encounter
--- OUTSIDE RECORDS SUMMARY | 2025-01-03 13:39 | XMS_ITS | Encounter Summary ---
Author Organization [employer] ([place], [place], [place], [place]) Address [address] [place] [address] Care Team Providers Care Quill Cleaner Name Role Phone Unavailable Primary Care Provider Unavailabl e Encounter Details Date Type Department Care Team (Late st Contact Info) Description 08/17/2021 Transcribed Document [facility] Radiology [address] [place] [address] Saleem Jimenes MD [address] [place] [address] Social History Tobacco Use Types Packs/Day [...] mg, 12 mL, 124 mL/Hr, IV Piggyback, [id number] Dulcolax Laxative: 5 mg, Oral, Daily, PRN: Constipation DuoNeb 0.5 mg-2.5 mg/3 mL inhalation solution: 3 mL, Nebulized Inhalation, RT_Q6H, PRN: Shortness of Breath Geodon: 40 mg, Oral, BID HYDROmorphone: 2 mg, Oral, Q4H, PRN: Pain Imitrex: 100 mg, Oral, Daily, PRN: Migraine Headache LaMICtal: 100 mg, Oral, Daily Lactated Ringers Injection intravenous solution 1,000 mL: 20 mL/Hr, IntraVENous Lovenox: 40 mg, SubCutaneous, [id number] MiraLax: 17 Gram, Oral, Daily, PRN: Constipation [...] mL 600 mg 12 mL, IV Piggyback, [id number] enoxaparin 40 mg/0.4 mL inj 40 mg 0.4 mL, SubCutaneous, [id number] famotidine 20 mg tab 20 mg 1 [...] History of obstructive sleep apnea / IMO [id number] / Confirmed Suicide risk / IMO [id number] / Confirmed, Active Problems (2) History of [...] 50 mL 600 mg, IV Piggyback, Inj, [id number], infuse over 30 Minute(s), Routine, Start 08/17/21 [...] 250 mL 1,500 mg, IV Piggyback, Inj, [id number], infuse over 60 Minute(s), Start 08/15/21 11:00:00 [...]
--- NOTE | 2025-01-03 14:20 | PC.NURSE ---
Radiology at bedside at this time.
[2025-01-03 14:23] LABS: Lactate Venous 1.0 mmol/L (0.4-2.0); VBG HCO3 29.0 mmol/L (23-30); VBG PCO2 71.1 mmol/L (35-51); VBG PH 7.29 mmol/L (7.31-7.41); VBG PO2 123.9 mmol/L (28-40)
[2025-01-03 14:29] LABS: Alanine Aminotransferase 14 U/L (12-78); Albumin Level 3.9 g/dl (3.5-5.0); Albumin/Globulin Ratio 1.2 (1.1-1.8); Alkaline Phosphatase 78 U/L (38-126); Anion Gap 9.3 mEq/L (5-15); Aspartate Amino Transferase 22 U/L (14-36); Bilirubin,Total 0.2 mg/dl (0.2-1.3); Blood Urea Nitrogen 14 mg/dl (7-17); Calcium 8.8 mg/dl (8.4-10.2); Carbon Dioxide 31 mmol/L (22.0-30.0); Chloride 104 mmol/L (98-107); Creatinine Clearance Estimated 63 mL/min (50-200); Creatinine,Serum 0.80 mg/dl (0.52-1.04); Estimated Glomerular Filt Rate 76 ml/min (>60); GFR (African American) 92 ML/MIN (>60); Globulin 3.3 g/dL (1.3-3.2); Glucose 125 mg/dl (74-100); Potassium 4.3 mmoL/L (3.5-5.1); Sodium 140 mmol/L (136-145); Total Protein,Serum 7.2 g/dl (6.3-8.2)
[2025-01-03 14:32] LABS: Hematocrit 40.3 % (37.0-47.0); Hemoglobin 12.2 g/dL (12.2-16.2); Immature Granulocytes % 0.6 %; Mean Corpuscular HGB Conc 30.3 g/dL (31.8-35.4); Mean Corpuscular Hemoglobin 26.8 pg (27.0-31.2); Mean Corpuscular Volume 88.6 fl (81-99); Nucleated Red Blood Cells % 0 %; Platelet Count 176 K/mm3 (142-424); Red Blood Count 4.55 M/mm3 (4.20-5.40); Red Cell Distribution Width-SD 52.8 fL; White Blood Count 8.1 K/mm3 (4.8-10.8)
--- NOTE | 2025-01-03 14:37 | ECG_ITS ---
APPROVED REPORT Exam: Resting ECG HR:86 bpm ECG Measurements Heart Rate 86 AXES NM 178 P 66 QRSd 99 QRS 61 QT 359 T 75 QTc 403 Conclusion SINUS RHYTHM LOW QRS VOLTAGE IN PRECORDIAL LEADS [QRS DEFLECTION < 1.0 mV IN CHEST LEADS] BORDERLINE ECG UNCONFIRMED REPORT Normal sinus rhythm. No ST elevation or depression. No T wave inversions. QTc normal at 403 Electronically signed by : SAWYER BURRIS, 01/06/2025 14:22:39
[2025-01-03 14:41] LABS: NT Pro Brain Natriuretic Pep. 338 pg/mL (0-125)
[2025-01-03 14:55] LABS: Troponin I < 0.01 ng/ml (0.00-0.034)
--- NOTE | 2025-01-03 15:00 | PC.NURSE ---
LORENZA AT BEDSIDE TO UPDATE PT ON POC
--- NOTE | 2025-01-03 15:08 | PC.NURSE ---
FAMILY NOTIFIED TO BRING IN PTS HOME TRILOGY
--- NOTE | 2025-01-03 15:27 | PC.NURSE ---
Margo MONTES attempted to discuss the pt with , he states he is busy and will return her call in 15 minutes
[2025-01-03] MEDS: LEVOFLOXACIN/D5W 750 MG/150 ML 750 MG/150 ML PIGGYBACK 100 MG IV (16:00)
--- NOTE | 2025-01-03 16:02 | PC.NURSE ---
NURSE PRACTITIONER NOTIFIED OF ADMISSION
--- NOTE | 2025-01-03 16:14 | HMH.PHAINT1 ---
Pharmacy Intervention Comments: MEDICATION RECONCILIATION COMPLETE USING EXTERNAL PHARMACY FILL HISTORY, RECENT HOSPITAL DISCHARGE NOTE, RECENT MD OFFICE VISIT NOTE, AND MICHEL REPORT.
--- NOTE | 2025-01-03 16:15 | PC.NURSE ---
REPORT GIVEN TO KALIE. EWA
[2025-01-03 16:50] LABS: Hepatitis C Ab Qual. W/ RFX NEGATIVE (Negative)
[2025-01-03] MEDS: ACETAMINOPHEN 325MG TAB 650 MG PO (17:14)
[2025-01-03 17:30] LABS: Troponin I < 0.01 ng/ml (0.00-0.034)
--- NOTE | 2025-01-03 18:33 | EXP.HP ---
History of Present Illness *Admission Date: 01/03/25 *History of present illness: Patient is a 49-year-old female with past medical history of heart failure, respiratory failure on tracheostomy, morbid obesity who presents to the hospital due to fall, complaint of left ankle pain. Patient otherwise denied chest pain nausea vomiting diarrhea constipation dysuria fevers and chills. Patient mentions she has been recurrent falls. Patient on evaluation in the emergency department was found to have hypoxia, on further workup for hypoxia patient was found to have worsening bilateral opacity concerning for pneumonia [facility] Disclaimer: The information contained in this section may have been updated after the patient was seen, as this information can be updated by other users. Medical History Tracheostomy tube present pt has irritation in trachea site Low O2 saturation Cough Dermatitis Skin lesion Multiple substance abuse Degenerative disc disease, thoracic Acute exacerbation of chronic obstructive pulmonary disease Nausea and vomiting Abdominal pain Acute and chronic respiratory failure Obesity, morbid Deliberate self-cutting Otitis externa of left ear Dysphagia Hearing difficulty of left ear Otalgia, left ear Asthma Acute on chronic respiratory failure with hypoxia and hypercapnia Palpitations Ear pain, right Acute and chronic respiratory failure with hypercapnia PTSD (post-traumatic stress disorder) Chest pain Generalized anxiety disorder Recurrent major depression resistant to treatment Sleep apnea History of ectopic History of hyperkalemia Diastolic congestive heart failure Paranoid schizophrenia Uses bilevel positive airway pressure (BPAP) ventilation at home History of sleep apnea History of asthma Cellulitis of right lower extremity Acute and chronic respiratory failure with hypercapnia Pneumonia Acute and chronic respiratory failure Right lower lobe pneumonia History of smoking 30 or more pack years Obesity hypoventilation syndrome Chronic respiratory failure with hypercapnia Severe sepsis COVID-19 Acute and chronic respiratory failure Pneumonia Tracheostomy in place Edema Sinus tachycardia Dizziness Diastolic dysfunction Acute on chronic diastolic heart failure Respiratory failure with hypoxia and hypercapnia Congestive heart failure Acute on chronic diastolic heart failure Elevated d-dimer PAC (premature atrial contraction) Chest pain Dyspnea HTN (hypertension) COPD (chronic obstructive pulmonary disease) Tobacco abuse Abnormal stress test SOB (shortness of breath) Angina, class III Obesity Hypothyroidism (~11/21/17) Asthma Insomnia Depression Anxiety Neuropathy Surgical History History of tracheostomy july 2021 History of appendectomy History of cholecystectomy History of colonoscopy History of left knee surgery History of hysterectomy Family History Other No significant family history Social History (Updated 01/03/25 @ 17:11 by Hailey Suh RN) Smoking Status: Current some day smoker tobacco type: cigarettes packs per day: 1 pack-years: 20 smoking status stop date: 02/2022 alcohol intake: former substance use type: marijuana current occupational status: disabled Travel in the last 8 weeks?: None household members: family housing: apartment number of children: 0 current occupational exposures/hazards: No caffeine: Yes Have you lived/traveled outside [place] in past 30 days?: No Contact w/someone who lives/traveled outside [place] past 30 days?: No Exposure to someone with infectious disease in past 14 days?: No Do you have a fever (greater than 100.4 F or 38 C)?: No Have you tested positive for COVID-19?: No Exposed to someone with COVID-19 in past 14 days?: No Do you have a sore throat?: No Do you have a cough?: No Do you have any weakness?: No Do you have any diarrhea?: No Are you experiencing any unusual bleeding?: No Do you have any muscle aches/pain?: No Do you have any abdominal pain?: No Are you experiencing loss of taste or smell?: No Other Medical History Have you received the Flu Vaccine for this season: No Have you received the Pneumonia Vaccine: No Review of Systems Review of Systems Review of systems:: pertinent systems reviewed and negative unless documented below Meds Home Medications and Allergies Home Medications ?Medication ?Instructions ?Recorded ?Confirmed ?Type losartan 25 mg tablet 25 mg PO DAILY #30 tabs 05/15/24 01/03/25 Rx propranolol 10 mg tablet 10 mg PO BID #60 tabs 05/15/24 01/03/25 Rx rivaroxaban 10 mg tablet (Xarelto) 10 mg PO DAILY #10 tabs 07/26/24 01/03/25 Rx linaclotide 145 mcg capsule 145 mcg PO DAILY #90 caps 08/13/24 01/03/25 Rx (Linzess) lamotrigine 100 mg tablet 100 mg PO DAILY #30 tabs 10/10/24 01/03/25 Rx spironolactone 50 mg tablet 50 mg PO DAILY 90 days #90 tabs 11/14/24 01/03/25 Rx (Aldactone) omeprazole 40 mg capsule,delayed 40 mg PO BID 12/04/24 01/03/25 History release albuterol sulfate 90 mcg/actuation 2 inh inhalation Q6HP PRN 12/07/24 01/03/25 History aerosol inhaler (Ventolin HFA) shortness of breath or wheezing diazepam 5 mg tablet 5 mg PO BIDP PRN anxiety 12/07/24 01/03/25 History ondansetron 4 mg disintegrating 4 mg PO Q6HP PRN Nausea And 12/07/24 01/03/25 History tablet Vomiting promethazine 25 mg tablet 25 mg PO TIDP PRN Nausea And 12/07/24 01/03/25 History Vomiting quetiapine 100 mg tablet 200 mg PO HS 12/07/24 01/03/25 History magnesium sulfate 100 mg capsule 100 mg PO DAILY #30 caps 12/09/24 01/03/25 Rx tirzepatide (weight loss) 2.5 2.5 mg (0.5 mL) SQ WEEKLY sleep 12/09/24 01/03/25 Rx mg/0.5 mL subcutaneous pen apnea, morbid obesity #2 mL injector (Zepbound) fluticasone fur. 100 mcg-umeclid 1 inh inhalation DAILY 90 days #90 12/16/24 01/03/25 Rx 62.5 mcg-vilant 25 mcg blisters inhalat.powder (Trelegy Ellipta) gabapentin 800 mg tablet 800 mg PO TID #90 tabs 12/17/24 01/03/25 Rx terbinafine HCl 1 % topical cream 1 applic topical BID #30 grams 12/17/24 01/03/25 Rx (Lamisil AT) duloxetine 30 mg capsule,delayed 90 mg (3 x 30 mg) PO DAILY #180 01/02/25 01/03/25 Rx release caps cyclobenzaprine 5 mg tablet 5 mg PO TID 01/03/25 01/03/25 History fluticasone propionate 50 1 spray intranasal DAILY 01/03/25 01/03/25 History mcg/actuation nasal spray,suspension (Flonase Allergy Relief) levothyroxine 25 mcg tablet 25 mcg PO DAILYDM 01/03/25 01/03/25 History oxycodone-acetaminophen 10 mg-325 1 tab PO QIDP PRN Severe Pain 01/03/25 01/03/25 History mg tablet (Scale Score 7-10) rimegepant 75 mg disintegrating 75 mg PO Q48H 01/03/25 01/03/25 History tablet (Nurtec ODT) sumatriptan succinate 100 mg tablet 100 mg PO DAILYP PRN Headache 01/03/25 01/03/25 History torsemide 100 mg tablet 100 mg PO BIDL 01/03/25 01/03/25 History ziprasidone HCl 40 mg capsule 40 mg PO BID 01/03/25 01/03/25 History New Prescriptions to Start Prescriptions: Allergies Allergy/AdvReac Type Severity Reaction Status Date / Time doxycycline Allergy Severe Blister Verified 12/12/24 11:06 clindamycin Allergy Blister Verified 12/12/24 11:06 Sulfa (Sulfonamide AdvReac Intermediate Rash Verified 12/12/24 11:06 Antibiotics) amoxicillin AdvReac Other Verified 12/12/24 11:06 morphine AdvReac Headache Verified 12/12/24 11:06 nitrofurantoin (From AdvReac Other Verified 12/12/24 11:06 Macrobid) Exam Data for Last 24 hours Vital signs and Labs for Last 24 Hours: Temp Pulse Resp BP Pulse Ox O2 Del Method O2 Flow Rate 98.1 F 103 H 17 136/93 H 92 L Nasal Cannula 3.5 01/03/25 16:45 01/03/25 18:00 01/03/25 18:00 01/03/25 18:00 01/03/25 18:00 01/03/25 18:00 01/03/25 18:00 Laboratory Results - last 24 hr 01/03/25 13:34: VBG pH 7.29 L, VBG pCO2 71.1 H, VBG pO2 123.9 H, VBG HCO3 29.0, VBG Total CO2 31.2 H, VBG O2 Saturation 98.2 H, VBG Base Excess 1.4, VBG Lactic Acid 1.0 01/03/25 14:08: WBC 8.1, RBC 4.55, Hgb 12.2, Hct 40.3, MCV 88.6, MCH 26.8 L, MCHC 30.3 L, RDW 16.2, Plt Count 176, MPV 9.9, Neut % (Auto) 77.1, Lymph % (Auto) 13.5, [place] % (Auto) 7.1, Eos % (Auto) 1.5, Baso % (Auto) 0.2, Neut # (Auto) 6.2, Lymph # (Auto) 1.1, [place] # (Auto) 0.6, Eos # (Auto) 0.1, Baso # (Auto) 0.0, Sodium 140, Potassium 4.3, Chloride 104, Carbon Dioxide 31 H, Anion Gap 9.3, BUN 14, Creatinine 0.80, Estimated Creat Clear 63, Estimated GFR 76, Est GFR ( Amer) 92, Glucose 125 H, Calcium 8.8, Total Bilirubin 0.2, AST 22, ALT 14, Alkaline Phosphatase 78, Troponin I < 0.01, NT-Pro-B Natriuret Pep 338 H, Total Protein 7.2, Albumin 3.9, Globulin 3.3 H, Albumin/Globulin Ratio 1.2, HCV Ab CONSTANTINE w/Rflx PCR Qn Negative, HIV Ag/Ab Combo Qual Negative 01/03/25 16:52: Troponin I < 0.01 I & O for Last 24 hours: Intake & Output 12/31/24 01/01/25 01/02/25 01/03/25 23:59 23:59 23:59 23:59 Intake Total 336 / 336 Output Total 0 / 0 Balance 336 / 336 Weight 184.8 kg Constitutional Constitutional: no acute distress *Routine HEENT Exam Head: Present normocephalic Eye: Present EOMI and PERRL ENT: Present mucous membranes moist *Routine Neck Exam Neck: Present supple; Absent lymphadenopathy *Routine Respiratory Exam Respiratory: Present decreased breath sounds, rhonchi and wheezes *Routine Cardiovascular Exam Cardiovascular: Present RRR *Routine Abdominal Exam Abdominal: Present soft and normoactive bowel sounds; Absent tenderness *Routine Rectal Exam Rectal:: deferred *Routine Genitalia Exam Genitalia:: deferred *Routine Extremities Exam Extremities: Absent cyanosis, clubbing or edema *Routine Skin Exam Skin: Present warm; Absent rash *Routine Neurological Exam Neurological: Present alert and oriented X3 Assessment and Plan *Assessment and plan (1) Tracheostomy tube present: Problem Comment: pt has irritation in trachea site Status: Acute Category: Medical Code(s): Z93.0 - Tracheostomy status (2) (HFpEF) heart failure with preserved ejection fraction: Status: Acute Category: Medical Code(s): I50.30 - Unspecified diastolic (congestive) heart failure (3) Acute on chronic respiratory failure with hypoxia and hypercapnia: Status: Acute Category: Medical Code(s): J96.21 - Acute and chronic respiratory failure with hypoxia; J96.22 - Acute and chronic respiratory failure with hypercapnia (4) COPD (chronic obstructive pulmonary disease): Status: Acute Qualifiers: COPD type: COPD with acute exacerbation Qualified Code(s): J44.1 - Chronic obstructive pulmonary disease with (acute) exacerbation Category: Medical Code(s): J44.9 - Chronic obstructive pulmonary disease, unspecified Plan Patient is a 49-year-old female with past medical history of heart failure, respiratory failure on tracheostomy, morbid obesity who presents to the hospital due to fall, complaint of left ankle pain. Patient otherwise denied chest pain nausea vomiting diarrhea constipation dysuria fevers and chills. Patient mentions she has been recurrent falls. Patient on evaluation in the emergency department was found to have hypoxia, on further workup for hypoxia patient was found to have worsening bilateral opacity concerning for pneumonia Assessment and plan Acute hypoxic hypercapnic respiratory failure likely secondary to COPD exacerbation Pickwickian syndrome Worsening community-acquired pneumonia Start start Solu-Medrol, DuoNebs Blood gases checked does show hypercapnia vancomycin, cefepime Check procalcitonin Check blood cultures Consult pulmonary Monitor on cardiac telemetry Chronic medical conditions CKD stage III Morbid obesity with pickwickian syndrome Hypothyroidism Hypertension Resume home levothyroxine, losartan DVT prophylaxis-heparin subcutaneous
[2025-01-03] MEDS: diazePAM 5MG TABLET 5 MG PO (18:42)
[2025-01-03] MEDS: OXYCODONE 10MG W/APAP 325MG TABLET 1 EACH PO (18:42)
[2025-01-03] MEDS: VANCOMYCIN CONSULT REQUEST 1 EACH NOTAPPLIC (18:49)
[2025-01-03] MEDS: HEPARIN SODIUM 5,000 UNIT/ML VIAL 5000 UNIT SUBCUT (20:22)
[2025-01-03] MEDS: METHYLPREDNISOLONE SOD SUCC 40MG VIAL 40 MG IV (20:22)
[2025-01-03] MEDS: BUMETANIDE 1MG/4ML VIAL 2 MG IV (20:22)
[2025-01-03] MEDS: PANTOPRAZOLE 40MG TABLET 40 MG PO (20:23)
[2025-01-03] MEDS: GABAPENTIN 800MG TABLET 800 MG PO (20:23)
[2025-01-03] MEDS: PROPRANOLOL 10 MG 10 EACH PO (20:24)
[2025-01-03] MEDS: CEFEPIME HCL 2 GM in 0.9 % SODIUM CHLORIDE 100 ML IV (20:24)
[2025-01-03 20:29] LABS: Troponin I < 0.01 ng/ml (0.00-0.034)
[2025-01-03 20:34] LABS: Procalcitonin 0.072 ng/mL (0.0-2.0)
[2025-01-03] MEDS: VANCOMYCIN/WATER FOR INJ (PEG) 1.5 GM/300 ML PIGGYBACK IV ×2 (21:09→23:29)
[2025-01-03] MEDS: CYCLOBENZAPRINE 5 MG 5 EACH PO (21:10)
[2025-01-03] MEDS: QUETIAPINE 100MG TABLET 200 MG PO (21:10)
[2025-01-03] MEDS: ZIPRASIDONE HCL 40 MG 40 EACH PO (21:12)
[2025-01-03 23:21] LABS: ABG PH 7.19 mmol/L (7.35-7.45)
[2025-01-03 23:22] LABS: ABG HCO3 29.3 mmhg (22.0-26.0); ABG PCO2 78.9 mmhg (35.0-45.0); ABG PO2 103.6 mmhg (80-100); ABG TCO2 31.7 mmhg (23-27)
[2025-01-03 23:23] LABS: PEEP 8
[2025-01-03 23:24] LABS: Source Left Radial
[2025-01-03] MEDS: SODIUM CHLORIDE 3% 15ML NEB 3 ML IH (23:53)
[2025-01-04] VITALS (30 sets, daily range): BP systolic 74–136; BP diastolic 41–93; PULSE 70–121; RESP 15–27; TEMP 36.6–37.1; O2SAT 89–99; BMI 77.1
[2025-01-04 00:55] LABS: VBG HCO3 28.9 mmol/L (23-30); VBG PCO2 82.3 mmol/L (35-51); VBG PH 7.16 mmol/L (7.31-7.41); VBG PO2 49.1 mmol/L (28-40)
[2025-01-04 00:56] LABS: Lactate Venous 1.7 mmol/L (0.4-2.0)
[2025-01-04 02:38] LABS: VBG PCO2 57.1 mmol/L (35-51); VBG PH 7.31 mmol/L (7.31-7.41)
[2025-01-04 02:39] LABS: Lactate Venous 2.2 mmol/L (0.4-2.0); VBG HCO3 27.8 mmol/L (23-30); VBG PO2 62.8 mmol/L (28-40)
--- NOTE | 2025-01-04 02:43 | PC.NURSE ---
VBG results improving; MD aware Ph 7.31 CO2 57.1 Bicarb 27.8
[2025-01-04] MEDS: CEFEPIME HCL 2 GM in 0.9 % SODIUM CHLORIDE 100 ML IV ×2 (02:46→14:50)
[2025-01-04] MEDS: METHYLPREDNISOLONE SOD SUCC 40MG VIAL 40 MG IV ×2 (02:54→10:02)
[2025-01-04 06:07] LABS: Hematocrit 42.8 % (37.0-47.0); Hemoglobin 12.2 g/dL (12.2-16.2); Immature Granulocytes % 1.0 %; Mean Corpuscular HGB Conc 28.5 g/dL (31.8-35.4); Mean Corpuscular Hemoglobin 26.1 pg (27.0-31.2); Mean Corpuscular Volume 91.5 fl (81-99); Nucleated Red Blood Cells % 0.2 %; Platelet Count 152 K/mm3 (142-424); Red Blood Count 4.68 M/mm3 (4.20-5.40); Red Cell Distribution Width-SD 53.5 fL; White Blood Count 18.8 K/mm3 (4.8-10.8)
[2025-01-04 06:20] LABS: Chloride 102 mmol/L (98-107); Sodium 135 mmol/L (136-145)
[2025-01-04 06:21] LABS: Potassium 5.4 mmoL/L (3.5-5.1)
[2025-01-04 06:23] LABS: Blood Urea Nitrogen 18 mg/dl (7-17); Creatinine Clearance Estimated 39 mL/min (50-200); Creatinine,Serum 1.30 mg/dl (0.52-1.04); Estimated Glomerular Filt Rate 43 ml/min (>60); GFR (African American) 52 ML/MIN (>60)
[2025-01-04 06:24] LABS: Anion Gap 8.4 mEq/L (5-15); Calcium 8.5 mg/dl (8.4-10.2); Carbon Dioxide 30 mmol/L (22.0-30.0); Glucose 144 mg/dl (74-100)
--- NOTE | 2025-01-04 06:30 | PC.NURSE ---
Patient noncompliant with most aspects of treatment throughout night she would become agitated and rip her monitoring devices off and when staff would educate why it was important to monitor vitals such as heart rate and bp and o2 levels she declined importance and got angry it is fine, leave me alone . The patient had an event last night where she became confused, color was dusky and could not improve o2 sats even on her home trilogy, she was satting in the 70's for 10 minutes wanting and demanding to go to the bedside commode or she was going to poop in the floor . Changes were made to the o2 on the wall connected to her device to increase o2 sats until sorgisella was contacted and her triology settings were able to be manipulated by our RT staff. follow up blood gases were obtained and she was watched closely through the night. Dr. Ornelas was at bedside during event of hypoxia and agitation and stressed to patient the importance of being compliant and wearing her machine for oxygenation. Patient continued to try to take out her entire inner cannula and trach pieces itself. She has been educated on importance of wearing and keeping her oxygen up and c02 down to normal levels for her condition. patient refused to replace the inner cannula she threw in the floor with a clean one she brought from home we do not keep here at the facility for her type of trach, she said she does not change them often at home and tried to get this nurse to put back in her trach straight from floor. Nurse refused to replace the dirty trach.
[2025-01-04 06:35] LABS: Reflex Lactic Add Lactic Reflex
[2025-01-04] MEDS: IPRATROPIUM/ALBUTEROL 3 ML NEB IH ×4 (06:44→22:10)
[2025-01-04 06:50] LABS: ABG PH 7.15 mmol/L (7.35-7.45)
[2025-01-04 06:57] LABS: ABG HCO3 22.8 mmhg (22.0-26.0); ABG PCO2 66.4 mmhg (35.0-45.0); ABG PO2 62.2 mmhg (80-100); ABG TCO2 24.8 mmhg (23-27)
[2025-01-04 06:58] LABS: PEEP 8; Source Left Radial
[2025-01-04 07:29] LABS: VBG PH 7.22 mmol/L (7.31-7.41)
[2025-01-04 07:30] LABS: VBG PCO2 68.6 mmol/L (35-51)
[2025-01-04 07:31] LABS: VBG PO2 40.2 mmol/L (28-40)
[2025-01-04 07:32] LABS: Lactate Venous 2.0 mmol/L (0.4-2.0); VBG HCO3 27.5 mmol/L (23-30)
[2025-01-04 07:48] LABS: Lactic Acid Follow Up (RFLX 1) 1.8 mmol/L (0.7-2.1)
--- NOTE | 2025-01-04 07:53 | EXP.PHA.CONS ---
Pharmacy Consult Date: 01/04/25 Time: 07:53 Referring provider: DR TSAI Reason for Consult:: VANCOMYCIN DOSING CONSULT Allergies Allergy/AdvReac Type Severity Reaction Status Date / Time doxycycline Allergy Severe Blister Verified 12/12/24 11:06 clindamycin Allergy Blister Verified 12/12/24 11:06 Sulfa (Sulfonamide AdvReac Intermediate Rash Verified 12/12/24 11:06 Antibiotics) amoxicillin AdvReac Other Verified 12/12/24 11:06 morphine AdvReac Headache Verified 12/12/24 11:06 nitrofurantoin (From AdvReac Other Verified 12/12/24 11:06 Macrobid) Home Medications ?Medication ?Instructions ?Recorded ?Confirmed ?Type losartan 25 mg tablet 25 mg PO DAILY #30 tabs 05/15/24 01/03/25 Rx propranolol 10 mg tablet 10 mg PO BID #60 tabs 05/15/24 01/03/25 Rx rivaroxaban 10 mg tablet (Xarelto) 10 mg PO DAILY #10 tabs 07/26/24 01/03/25 Rx linaclotide 145 mcg capsule 145 mcg PO DAILY #90 caps 08/13/24 01/03/25 Rx (Linzess) lamotrigine 100 mg tablet 100 mg PO DAILY #30 tabs 10/10/24 01/03/25 Rx spironolactone 50 mg tablet 50 mg PO DAILY 90 days #90 tabs 11/14/24 01/03/25 Rx (Aldactone) omeprazole 40 mg capsule,delayed 40 mg PO BID 12/04/24 01/03/25 History release albuterol sulfate 90 mcg/actuation 2 inh inhalation Q6HP PRN 12/07/24 01/03/25 History aerosol inhaler (Ventolin HFA) shortness of breath or wheezing diazepam 5 mg tablet 5 mg PO BIDP PRN anxiety 12/07/24 01/03/25 History ondansetron 4 mg disintegrating 4 mg PO Q6HP PRN Nausea And 12/07/24 01/03/25 History tablet Vomiting promethazine 25 mg tablet 25 mg PO TIDP PRN Nausea And 12/07/24 01/03/25 History Vomiting quetiapine 100 mg tablet 200 mg PO HS 12/07/24 01/03/25 History magnesium sulfate 100 mg capsule 100 mg PO DAILY #30 caps 12/09/24 01/03/25 Rx tirzepatide (weight loss) 2.5 2.5 mg (0.5 mL) SQ WEEKLY sleep 12/09/24 01/03/25 Rx mg/0.5 mL subcutaneous pen apnea, morbid obesity #2 mL injector (Zepbound) fluticasone fur. 100 mcg-umeclid 1 inh inhalation DAILY 90 days #90 12/16/24 01/03/25 Rx 62.5 mcg-vilant 25 mcg blisters inhalat.powder (Trelegy Ellipta) gabapentin 800 mg tablet 800 mg PO TID #90 tabs 12/17/24 01/03/25 Rx terbinafine HCl 1 % topical cream 1 applic topical BID #30 grams 12/17/24 01/03/25 Rx (Lamisil AT) duloxetine 30 mg capsule,delayed 90 mg (3 x 30 mg) PO DAILY #180 01/02/25 01/03/25 Rx release caps cyclobenzaprine 5 mg tablet 5 mg PO TID 01/03/25 01/03/25 History fluticasone propionate 50 1 spray intranasal DAILY 01/03/25 01/03/25 History mcg/actuation nasal spray,suspension (Flonase Allergy Relief) levothyroxine 25 mcg tablet 25 mcg PO DAILYDM 01/03/25 01/03/25 History oxycodone-acetaminophen 10 mg-325 1 tab PO QIDP PRN Severe Pain 01/03/25 01/03/25 History mg tablet (Scale Score 7-10) rimegepant 75 mg disintegrating 75 mg PO Q48H 01/03/25 01/03/25 History tablet (Nurtec ODT) sumatriptan succinate 100 mg tablet 100 mg PO DAILYP PRN Headache 01/03/25 01/03/25 History torsemide 100 mg tablet 100 mg PO BIDL 01/03/25 01/03/25 History ziprasidone HCl 40 mg capsule 40 mg PO BID 01/03/25 01/03/25 History New Prescriptions to Start Prescriptions: Height: 1.55 m Weight: 185.4 kg Laboratory Results:: Laboratory Results - last 24 hr 01/03/25 13:34: VBG pH 7.29 L, VBG pCO2 71.1 H, VBG pO2 123.9 H, VBG HCO3 29.0, VBG Total CO2 31.2 H, VBG O2 Saturation 98.2 H, VBG Base Excess 1.4, VBG Lactic Acid 1.0 01/03/25 14:08: WBC 8.1, RBC 4.55, Hgb 12.2, Hct 40.3, MCV 88.6, MCH 26.8 L, MCHC 30.3 L, RDW 16.2, Plt Count 176, MPV 9.9, Neut % (Auto) 77.1, Lymph % (Auto) 13.5, [place] % (Auto) 7.1, Eos % (Auto) 1.5, Baso % (Auto) 0.2, Neut # (Auto) 6.2, Lymph # (Auto) 1.1, [place] # (Auto) 0.6, Eos # (Auto) 0.1, Baso # (Auto) 0.0, Sodium 140, Potassium 4.3, Chloride 104, Carbon Dioxide 31 H, Anion Gap 9.3, BUN 14, Creatinine 0.80, Estimated Creat Clear 63, Estimated GFR 76, Est GFR ( Amer) 92, Glucose 125 H, Calcium 8.8, Total Bilirubin 0.2, AST 22, ALT 14, Alkaline Phosphatase 78, Troponin I < 0.01, NT-Pro-B Natriuret Pep 338 H, Total Protein 7.2, Albumin 3.9, Globulin 3.3 H, Albumin/Globulin Ratio 1.2, HCV Ab CONSTANTINE w/Rflx PCR Qn Negative, HIV Ag/Ab Combo Qual Negative 01/03/25 16:52: Troponin I < 0.01 01/03/25 19:50: Troponin I < 0.01, Procalcitonin 0.072 01/03/25 22:50: Specimen Source Left radial, O2 % 100, ABG pH 7.19 L*, ABG pCO2 78.9 H, ABG pO2 103.6 H, ABG HCO3 29.3 H, ABG Total CO2 31.7 H, ABG O2 Saturation 97, ABG Base Excess -1.1, Vaughn Test Patient unable, Vent Rate 20, Tidal Volume 450, PEEP 8 01/04/25 00:45: VBG pH 7.16 L, VBG pCO2 82.3 H, VBG pO2 49.1 H, VBG HCO3 28.9, VBG Total CO2 31.5 H, VBG O2 Saturation 80.0 H, VBG Base Excess -1.9, VBG Lactic Acid 1.7 01/04/25 02:30: VBG pH 7.31, VBG pCO2 57.1 H, VBG pO2 62.8 H, VBG HCO3 27.8, VBG Total CO2 29.6 H, VBG O2 Saturation 92.2 H, VBG Base Excess 0.5, VBG Lactic Acid 2.2 H 01/04/25 05:45: WBC 18.8 H D, RBC 4.68, Hgb 12.2, Hct 42.8, MCV 91.5, MCH 26.1 L, MCHC 28.5 L, RDW 16.0, Plt Count 152, MPV 10.1, Neut % (Auto) 91.0 H, Lymph % (Auto) 1.6 L, [place] % (Auto) 6.1, Eos % (Auto) 0.1, Baso % (Auto) 0.2, Neut # (Auto) 17.1 H, Lymph # (Auto) 0.3 L, [place] # (Auto) 1.1 H, Eos # (Auto) 0.0, Baso # (Auto) 0.0, Sodium 135 L, Potassium 5.4 H D, Chloride 102, Carbon Dioxide 30, Anion Gap 8.4, BUN 18 H D, Creatinine 1.30 H D, Estimated Creat Clear 39, Estimated GFR 43 L, Est GFR ( Amer) 52 L D, Glucose 144 H, Calcium 8.5 01/04/25 06:18: Specimen Source Left radial, O2 % 10lpm, ABG pH 7.15 L*, ABG pCO2 66.4 H, ABG pO2 62.2 L, ABG HCO3 22.8, ABG Total CO2 24.8, ABG O2 Saturation 90, ABG Base Excess -6.0 L, Vaughn Test Patient unable, Vent Rate 22, Tidal Volume 500, PEEP 8 01/04/25 06:55: VBG pH 7.22 L, VBG pCO2 68.6 H, VBG pO2 40.2 H, VBG HCO3 27.5, VBG Total CO2 29.6 H, VBG O2 Saturation 77.1 H, VBG Base Excess -0.2, VBG Lactic Acid 2.0 01/04/25 07:10: Lactate 1.8 Medical History: Medical History (Updated 12/13/24 @ 00:00 by Background Cristela) Tracheostomy tube present Low O2 saturation Cough Dermatitis Skin lesion Multiple substance abuse Degenerative disc disease, thoracic Acute exacerbation of chronic obstructive pulmonary disease Nausea and vomiting Abdominal pain Acute and chronic respiratory failure Obesity, morbid Deliberate self-cutting Otitis externa of left ear Dysphagia Hearing difficulty of left ear Otalgia, left ear Asthma Acute on chronic respiratory failure with hypoxia and hypercapnia Palpitations Ear pain, right Acute and chronic respiratory failure with hypercapnia PTSD (post-traumatic stress disorder) Chest pain Generalized anxiety disorder Recurrent major depression resistant to treatment Sleep apnea History of ectopic History of hyperkalemia Diastolic congestive heart failure Paranoid schizophrenia Uses bilevel positive airway pressure (BPAP) ventilation at home History of sleep apnea History of asthma Cellulitis of right lower extremity Acute and chronic respiratory failure with hypercapnia Pneumonia Acute and chronic respiratory failure Right lower lobe pneumonia History of smoking 30 or more pack years Obesity hypoventilation syndrome Chronic respiratory failure with hypercapnia Severe sepsis COVID-19 Acute and chronic respiratory failure Pneumonia Tracheostomy in place Edema Sinus tachycardia Dizziness Diastolic dysfunction Acute on chronic diastolic heart failure Respiratory failure with hypoxia and hypercapnia Congestive heart failure Acute on chronic diastolic heart failure Elevated d-dimer PAC (premature atrial contraction) Chest pain Dyspnea HTN (hypertension) COPD (chronic obstructive pulmonary disease) Tobacco abuse Abnormal stress test SOB (shortness of breath) Angina, class III Obesity Hypothyroidism (~11/21/17) Asthma Insomnia Depression Anxiety Neuropathy Assessment and Plan Assessment and plan all Dx Assessment and Plan for all problems:: Pharmacokinetic dosing service Objective: Age: 49 yo Serum creatinine: 1.3 mg/dL Height: 61.0 Inches Weight (kg): 185.4 Diagnosis: PNEUMONIA, ICU Assessment: IBW (kg): 47.80 Dosing wt(kg): 102.8 Estimated Creatinine clearance (ml/min): 84.0 CRCL method: Cockcroft and Gault using adjusted body weight Drug selected: Vancomycin Loading dose (mg): 3000 MG Vd (liters): 72.0 (factor used: 0.7 L/kg) Bro (hr-1): 0.074 Half life (hrs): 9.37 CLvanco=?? 5.328 L/hr Recommended dose: 1500 mg Interval: 12 hrs Infusion time (hrs): 2.0 Predicted peak (mcg/mL): 32.9 Predicted trough (mcg/mL): 15.70 Adjusted body weight was selected for vancomycin dosing. To switch back, select the total body weight option above. Recommendations: Give Vancomycin 1500 mg q 12 hrs with an expected Cpeak of 32.9 mcg/ml and an expected Ctrough of 15.70 mcg/ml AUC 0-24 /JOAN Data: JOAN 0.5 mcg/mL:?? AUC/JOAN:? 1126.1 JOAN 1.0 mcg/mL:?? AUC/JOAN:? 563.1 --------- JOAN 1.5 mcg/mL:?? AUC/JOAN:? 375.4 JOAN 2.0 mcg/mL:?? AUC/JOAN:? 281.5 Thank you for the consult
[2025-01-04] MEDS: diazePAM 5MG TABLET 5 MG PO (08:43)
[2025-01-04] MEDS: GABAPENTIN 800MG TABLET 800 MG PO ×3 (08:44→21:01)
[2025-01-04] MEDS: TERBINAFINE 1% TP ×2 (08:44→21:03)
[2025-01-04] MEDS: PANTOPRAZOLE 40MG TABLET 40 MG PO ×2 (08:46→21:01)
[2025-01-04] MEDS: ZIPRASIDONE 20MG CAPSULE 40 MG PO ×2 (08:46→21:02)
[2025-01-04] MEDS: CYCLOBENZAPRINE 10MG TABLET 5 MG PO ×3 (08:47→21:02)
--- NOTE | 2025-01-04 09:11 | PC.NURSE ---
multiple attempts to reach MD about patient meds that are due and patient has a low blood pressure. no answer.
[2025-01-04] MEDS: OXYCODONE 10MG W/APAP 325MG TABLET 1 EACH PO ×3 (09:18→22:48)
[2025-01-04] MEDS: VANCOMYCIN/WATER FOR INJ (PEG) 1.5 GM/300 ML PIGGYBACK IV ×2 (10:02→22:49)
[2025-01-04 10:36] LABS: VBG PH 7.34 mmol/L (7.31-7.41)
[2025-01-04 10:37] LABS: VBG PCO2 45.8 mmol/L (35-51); VBG PO2 143.8 mmol/L (28-40)
[2025-01-04 10:39] LABS: VBG HCO3 24.3 mmol/L (23-30)
[2025-01-04 10:40] LABS: Lactate Venous 2.5 mmol/L (0.4-2.0)
--- NOTE | 2025-01-04 10:47 | XR_ITS ---
PROCEDURE INFORMATION: Exam: XR Chest Exam date and time: 01/04/2025 11:40 AM Age: 49 years old Clinical indication: Shortness of breath; Additional info: SOB TECHNIQUE: Imaging protocol: Radiologic exam of the chest. Views: 1 view. COMPARISON: CR XR CHEST PORTABLE 01/03/2025 1:41 PM FINDINGS: Tubes, catheters and devices: Tracheostomy tube evident. Lungs: Low lung volumes. Pleural spaces: Unremarkable. No pleural effusion. No pneumothorax. Heart/Mediastinum: Cardiomegaly. Bones/joints: Unremarkable. Soft tissues: Limited by patient body habitus and patient rotation. IMPRESSION: 1. Limited by patient body habitus and patient rotation. 2. Low lung volumes.
[2025-01-04] MEDS: ACETAMINOPHEN 325MG TAB 650 MG PO (11:46)
[2025-01-04 11:54] LABS: RBC Morphology Normal; Total Cells Counted 100
[2025-01-04] MEDS: MIDODRINE HCL 5 MG TABLET 10 MG PO ×2 (12:33→21:01)
--- NOTE | 2025-01-04 13:06 | HMH.PTEV ---
Physical Therapy Evaluation Rehab PT IP Evaluation Start: 01/03/25 17:07 Freq: ONCE Status: Active Protocol: Document 01/04/25 12:59 EVE (Rec: 01/04/25 13:06 PHOCHINEDU [id number]) Subjective/History History History 49-year-old female with past medical history of heart failure, respiratory failure on tracheostomy, morbid obesity who presents to the hospital due to fall, complaint of left ankle pain. Patient otherwise denied chest pain nausea vomiting diarrhea constipation dysuria fevers and chills. Patient mentions she has been recurrent falls. Patient on evaluation in the emergency department was found to have hypoxia, on further workup for hypoxia patient was found to have worsening bilateral opacity concerning for pneumonia. Pt reports she lives alone, [address] the home, and she is generally independent with all mobility using a RW. Subjective Subjective Pt reports feeling weak in general, but slightly better than yesterday. She agrees to OOB mobility assessment. Pt was on Bi-Pap via trach throughout treatment. [facility] How much help from another person do you currently need... Turning from your None back to your side while in a flat bed without using bedrails? Moving from lying on None back to sitting on the side of a flat bed without using bedrails? Moving to and from a None bed to a chair ( including a wheelchair)? Standing up from a None chair using your arms? (e.g., wheelchair, bedside chair) Walking in hospital A little room? Climbing 3-5 steps A little with a railing? Mobility Score 22 Mobility Level [facility] Mobility Walk 25 feet or more Mobility Calculator Rehab PT IP Eval Objective Appearance Patient Behavior Appropriate Patient Orientation Person,Place,Time Difficulty following none instructions Speech Pattern Clear Ambulation Patient Able to Yes Ambulate Ambulation Observation IP General Gait Wide Based Gait,Shuffling Step Pattern Observation Ambulation Distance 5 (feet) Ambulation Assistive None Device Ambulation Ability Contact Guard/Hand Hold Balance Ability to Arise Able, uses arms to help Sitting Balance Steady, safe Standing Balance Steady, wide stance Dynamic Standing Fair Balance Ability Transfers Bed Transfer Ability Independent Chair Transfer Supervision/Stand by Ability Sit to Stand Bed Supervision/Stand by Transfer Ability Sit to Stand Chair Supervision/Stand by Transfer Ability Rehab PT IP prob,goals,plan Problems Date of Evaluation: 01/04/25 PT IP Problems Transfers,Gait Rehab Potential Rehab Potential Good Plan PT Intervention Plan Transfers,Gait,Therapeutic Exercise PT Plan Frequency Daily Duration LOS Discharge Goals Sit to Stand Chair Independent Transfer Ability Ambulation Assistive Rolling Walker Device Ambulation Distance 20 (feet) Discharge Plan PT Discharge Plan Pt is currently most appropriate for rehab placement once medically stable. She may be able to return home if she meets all therapy goals prior to d/c. Skilled acute therapy services are indicated to improve endurance, improve transfers and improve ambulation in order to return pt to [facility]. Eval Complexity Eval Charge Codes 77844 - High Complexity PHYSICIAN CERTIFICATION: I certify the specified therapy services for Carin Badillo are required, authorized, and reviewed every 30 days.
--- NOTE | 2025-01-04 15:37 | PC.NURSE ---
1430 Trilogy settings changed to 450Vt, 22,8 with 10lpm 02 bled in. 35% trach collar at 8lpm set up in room for pt. to wear when she is not on her Trilogy.
[2025-01-04 15:53] LABS: Acinetobacter calcoaceticus-ba Not Detected; Bacteroides fragilis Not Detected; Candida auris Not Detected; Candida glabrata Not Detected; Enterobacterales Not Detected; Enterococcus faecalis Not Detected; Enterococcus faecium Not Detected; Klebsiella aerogenes Not Detected; Klebsiella pneumoniae grp Not Detected; Proteus spp. Not Detected; Salmonella spp. Not Detected; Serratia marcescens Not Detected; Staphylococcus epidermidis Not Detected; Staphylococcus lugdunensis Not Detected; Staphylococcus spp. Not Detected; Stenotrophomonas maltophilia Not Detected; Streptococcus agalactiae(GrpB) Not Detected; Streptococcus pyogenes Group A Not Detected; Streptococcus spp. Not Detected
[2025-01-04 16:33] LABS: VBG PH 7.22 mmol/L (7.31-7.41)
[2025-01-04 16:38] LABS: VBG HCO3 25.0 mmol/L (23-30); VBG PCO2 61.9 mmol/L (35-51); VBG PO2 34.0 mmol/L (28-40)
[2025-01-04 16:39] LABS: Lactate Venous 1.8 mmol/L (0.4-2.0)
--- NOTE | 2025-01-04 16:52 | EXP.PN ---
Subjective *Date: 01/04/25 *Time: 16:52 Interval history: patient is seen at bedside, denied CP, N/V, patient was hypoxic overnight and there were multiple calls made to stitch cleaner regarding management of vent settings and blood gases Exam Data for Last 24 hours Vital signs and Labs for Last 24 Hours: Temp Pulse Resp BP Pulse Ox O2 Del Method O2 Flow Rate 98.3 F 73 22 108/66 L 90 L BiPAP 10 01/04/25 16:00 01/04/25 16:00 01/04/25 16:00 01/04/25 16:00 01/04/25 16:03 01/04/25 16:03 01/04/25 15:36 Laboratory Results - last 24 hr 01/03/25 14:08: HCV Ab CONSTANTINE w/Rflx PCR Qn Negative 01/03/25 15:28: A. baumannii (PCR) Not detected, Bacteroides fragilis Not detected, Toshia albicans (PCR) Not detected, Toshia auris (PCR) Not detected, C. glabrata (PCR) Not detected, C. krusei (PCR) Not detected, C. parapsilosis (PCR) Not detected, C. tropicalis (PCR) Not detected, Cryptococcus neoformans PCR Not detected, Enterobacterales (PCR) Not detected, Enterococc faecalis PCR Not detected, Enterococc faecium PCR Not detected, E. coli (PCR) Not detected, H. influenzae DNA Not detected, Klebsiella aerogenes (PCR) Not detected, Klebsiella oxytoca PCR Not detected, K. pneumoniae group (PCR) Not detected, List. monocytogenes PCR Not detected, N. meningitidis (PCR) Not detected, Proteus species (PCR) Not detected, Salmonella spp. (PCR) Not detected, Serratia marcescens PCR Not detected, Staphylococcus sp PCR Not detected, Staph aureus (PCR) Not detected, mecA/C & MREJ Resist Gene Not applicable, mecA/C-Methicil Resis Gene Not applicable, Staph epidermidis (PCR) Not detected, Staph lugdunensis (TEM-PCR) Not detected, S. maltophilia (PCR) Not detected, Streptococcus sp PCR Not detected, S.agalactiae Grp B NATALIE Not detected, Strep pneumoniae (PCR) Not detected, S. pyogenes GrpA NATALIE Not detected, P. aeruginosa (PCR) Not detected, Christina/B-Vanco Res Genes Not applicable, blaIMP Car res Gene PCR Not applicable, KPC-Carbap Res Gene PCR Not applicable, blaNDM Car Res Gene PCR Not applicable, OXA-48 Carbapenem Resis Gene (PCR) Not applicable, blaVIM Car Res Gene PCR Not applicable, CTX-M Gene Resistance (PCR) Not applicable, MCR-1 Resistance Gene Not applicable 01/03/25 16:52: Troponin I < 0.01 01/03/25 19:50: Troponin I < 0.01, Procalcitonin 0.072 01/03/25 22:50: Specimen Source Left radial, O2 % 100, ABG pH 7.19 L*, ABG pCO2 78.9 H, ABG pO2 103.6 H, ABG HCO3 29.3 H, ABG Total CO2 31.7 H, ABG O2 Saturation 97, ABG Base Excess -1.1, Vaughn Test Patient unable, Vent Rate 20, Tidal Volume 450, PEEP 8 01/04/25 00:45: VBG pH 7.16 L, VBG pCO2 82.3 H, VBG pO2 49.1 H, VBG HCO3 28.9, VBG Total CO2 31.5 H, VBG O2 Saturation 80.0 H, VBG Base Excess -1.9, VBG Lactic Acid 1.7 01/04/25 02:30: VBG pH 7.31, VBG pCO2 57.1 H, VBG pO2 62.8 H, VBG HCO3 27.8, VBG Total CO2 29.6 H, VBG O2 Saturation 92.2 H, VBG Base Excess 0.5, VBG Lactic Acid 2.2 H 01/04/25 05:45: WBC 18.8 H D, RBC 4.68, Hgb 12.2, Hct 42.8, MCV 91.5, MCH 26.1 L, MCHC 28.5 L, RDW 16.0, Plt Count 152, MPV 10.1, Neut % (Auto) 91.0 H, Lymph % (Auto) 1.6 L, [place] % (Auto) 6.1, Eos % (Auto) 0.1, Baso % (Auto) 0.2, Neut # (Auto) 17.1 H, Lymph # (Auto) 0.3 L, [place] # (Auto) 1.1 H, Eos # (Auto) 0.0, Baso # (Auto) 0.0, Total Counted 100, Neutrophils % (Manual) 92 H, Lymphocytes % (Manual) 8 L, Platelet Estimate Normal, RBC Morphology Normal, Sodium 135 L, Potassium 5.4 H D, Chloride 102, Carbon Dioxide 30, Anion Gap 8.4, BUN 18 H D, Creatinine 1.30 H D, Estimated Creat Clear 39, Estimated GFR 43 L, Est GFR ( Amer) 52 L D, Glucose 144 H, Calcium 8.5 01/04/25 06:18: Specimen Source Left radial, O2 % 10lpm, ABG pH 7.15 L*, ABG pCO2 66.4 H, ABG pO2 62.2 L, ABG HCO3 22.8, ABG Total CO2 24.8, ABG O2 Saturation 90, ABG Base Excess -6.0 L, Vaughn Test Patient unable, Vent Rate 22, Tidal Volume 500, PEEP 8 01/04/25 06:55: VBG pH 7.22 L, VBG pCO2 68.6 H, VBG pO2 40.2 H, VBG HCO3 27.5, VBG Total CO2 29.6 H, VBG O2 Saturation 77.1 H, VBG Base Excess -0.2, VBG Lactic Acid 2.0 01/04/25 07:10: Lactate 1.8 01/04/25 10:30: VBG pH 7.34, VBG pCO2 45.8, VBG pO2 143.8 H, VBG HCO3 24.3, VBG Total CO2 25.7, VBG O2 Saturation 99.0 H, VBG Base Excess -1.5, VBG Lactic Acid 2.5 H 01/04/25 16:30: VBG pH 7.22 L, VBG pCO2 61.9 H, VBG pO2 34.0, VBG HCO3 25.0, VBG Total CO2 26.9, VBG O2 Saturation 62.3, VBG Base Excess -3.6 L, VBG Lactic Acid 1.8 I & O for Last 24 hours: Intake & Output 01/01/25 01/02/25 01/03/25 01/04/25 23:59 23:59 23:59 23:59 Intake Total 336 / 1036 1421 / 1421 Output Total 0 / 0 500 / 500 Balance 336 / 103 921 / 921 Weight 184.8 kg 185.4 kg Microbiology Reports for the Last 24 Hours: Microbiology 01/03/25 15:34 Blood Blood Culture - Preliminary NO GROWTH AFTER 24 HOURS 01/03/25 15:28 Blood Blood Culture - Preliminary NO GROWTH AFTER 24 HOURS Constitutional Constitutional: mild distress (chronic), morbidly obese, chronically ill appearing and cooperative *Routine HEENT Exam Head: Present normocephalic Eye: Present EOMI and PERRL ENT: Present mucous membranes moist Comments: Cushingoid face, tracheostomy in place with no drainage *Routine Neck Exam Neck: Present supple; Absent lymphadenopathy Comments: Trach collar in place with passy rayo valve *Routine Respiratory Exam Respiratory: Present CTA bilaterally and distant breath sounds; Absent prolonged expiratory phase, rhonchi or wheezes *Routine Cardiovascular Exam Cardiovascular: Present RRR; Absent murmur *Routine Abdominal Exam Abdominal: Present soft and normoactive bowel sounds; Absent tenderness Comments: Morbidly obese. Abdominal wall with resolved erythema. Still has pitting edema of abdominal wall/pannus *Routine Rectal Exam Patient deferred: visual exam *Routine Exam Patient deferred: external exam *Routine Extremities Exam Extremities: Present edema (Chronic lipedema with 1+ edema); Absent cyanosis or clubbing *Routine Skin Exam Skin: Present intact and wounds; Absent rash *Routine Neurological Exam Neurological: Present alert, oriented X3 and moving all extremities; Absent altered mental status Routine Psychiatric Exam Psychiatric: Present normal affect Assessment and Plan *Assessment and plan (1) Tracheostomy tube present: Problem Comment: pt has irritation in trachea site Status: Acute Category: Medical Code(s): Z93.0 - Tracheostomy status (2) (HFpEF) heart failure with preserved ejection fraction: Status: Acute Category: Medical Code(s): I50.30 - Unspecified diastolic (congestive) heart failure (3) Acute on chronic respiratory failure with hypoxia and hypercapnia: Status: Acute Category: Medical Code(s): J96.21 - Acute and chronic respiratory failure with hypoxia; J96.22 - Acute and chronic respiratory failure with hypercapnia (4) COPD (chronic obstructive pulmonary disease): Status: Acute Qualifiers: COPD type: COPD with acute exacerbation Qualified Code(s): J44.1 - Chronic obstructive pulmonary disease with (acute) exacerbation Category: Medical Code(s): J44.9 - Chronic obstructive pulmonary disease, unspecified Plan Patient is a 49-year-old female with past medical history of heart failure, respiratory failure on tracheostomy, morbid obesity who presents to the hospital due to fall, complaint of left ankle pain. Patient otherwise denied chest pain nausea vomiting diarrhea constipation dysuria fevers and chills. Patient mentions she has been recurrent falls. Patient on evaluation in the emergency department was found to have hypoxia, on further workup for hypoxia patient was found to have worsening bilateral opacity concerning for pneumonia Assessment and plan Acute hypoxic hypercapnic respiratory failure likely secondary to COPD exacerbation Pickwickian syndrome Worsening community-acquired pneumonia Start start Solu-Medrol, DuoNebs Blood gases checked does show hypercapnia discussed with Pulmonary, recommend to continue to monitor Blood gases, and ordered CXR vancomycin, cefepime, added on levofloxacin Check procalcitonin Check blood cultures Consult pulmonary - appreciate recommendations Monitor on cardiac telemetry Chronic medical conditions CKD stage III Morbid obesity with pickwickian syndrome Hypothyroidism Hypertension Resume home levothyroxine, losartan DVT prophylaxis-heparin subcutaneous
[2025-01-04] MEDS: BUDESONIDE 0.5MG/2ML NEB 0.5 MG IH (18:24)
[2025-01-04] MEDS: QUETIAPINE 100MG TABLET 200 MG PO (21:02)
--- OUTSIDE RECORDS SUMMARY | 2025-01-04 22:29 | XMS_ITS | Encounter Summary ---
Author Organization [employer] ([place], [place], [place], [place]) Address [address] [place] [address] Care Team Providers Care Artificial Marble Worker Name Role Phone Unavailable Primary Care Provider Unavailabl e Encounter Details Date Type Department Care Team (Late st Contact Info) Description 08/18/2021 Transcribed Document [facility] [place] Family Medicine [address] [place] [address] ProviderMaría MD [address] [place] [address] Social History Tobacco Use Types [...] Historical ProviderMD - 08/18/2021 3:00 AM CDT Analyst Geochemical Prospecting Details Entered On: 08/18/2021 2:01 EDT Performed [...]
--- OUTSIDE RECORDS SUMMARY | 2025-01-04 22:29 | XMS_ITS | Encounter Summary ---
Author Organization [employer] ([place], [place], [place], [place]) Address [address] [place] [address] Care Team Providers Care Arbitrator Name Role Phone Unavailable Primary Care Provider Unavailabl e Encounter Details Date Type Department Care Team (Late st Contact Info) Description 08/16/2021 Transcribed Document [facility] [place] Family Medicine [address] [place] [address] ProviderMaría MD [address] [place] [address] Social History Tobacco Use Types [...]
--- OUTSIDE RECORDS SUMMARY | 2025-01-04 22:29 | XMS_ITS | Clinical Summary ---
Author Organization [facility] Address [address] [place] [address] Care Team Providers Care Inter Fold Roll Cutter Name Role Phone Provider, Unknown Primary Care [...] Vaccination (Every 10 Years) 08/18/203208/03 Insurance MEDICAID [place] Care Teams Inter Fold Roll Cutter Relationship Specialty Start Date End Date Provider, Unknown PCP - General 09/12/24
--- OUTSIDE RECORDS SUMMARY | 2025-01-04 22:29 | XMS_ITS | Encounter Summary ---
Author Organization [employer] ([place], [place], [place], [place]) Address [address] [place] [address] Care Team Providers Care Log Getter Name Role Phone Unavailable Primary Care Provider Unavailabl e Encounter Details Date Type Department Care Team (Late st Contact Info) Description 08/18/2021 Transcribed Document [facility] [place] Family Medicine [place] [address] ProvideraMría MD [address] [place] [address] Social History Tobacco Use Types [...] respiratory arrest last month and admitted to [facility]. Patient CO2 was reportedly greater than 100. Patient was admitted and eventually had to have a trach and peg placed. Patient was tolerating po intake and was about to have peg tube removed next week. Relevant PMH: peg tube placement, recent respiratory arrest, obstructive sleep apnea, tobacco abuse, morbid obesity. Indication: pain sports management intern MD: Saleem Jimenes Allergies: metoclopramide Outpatient Pain [...] for this consult, Hany BaumannD, MPH PGY1 Cashier Receptionist Pager: [phone] documented in this encounter Plan of Treatment Not on file documented as of this encounter Visit Diagnoses Not on filedocumented in this encounter
--- OUTSIDE RECORDS SUMMARY | 2025-01-04 22:29 | XMS_ITS | Encounter Summary ---
Author Organization [employer] ([place], [place], [place], [place]) Address [address] [place] [address] Care Team Providers Care Regional Manager Name Role Phone Unavailable Primary Care Provider Unavailabl e Encounter Details Date Type Department Care Team (Late st Contact Info) Description 08/16/2021 Transcribed Document [facility] [place] [facility] [place] [address] ProviderMaría MD [address], [place] [...]
--- OUTSIDE RECORDS SUMMARY | 2025-01-04 22:29 | XMS_ITS | Encounter Summary ---
Author Organization [employer] ([place], [place], [place], [place]) Address [address] [place] [address] Care Team Providers Care Hydrometeorologist Name Role Phone Unavailable Primary Care Provider Unavailabl e Encounter Details Date Type Department Care Team (Late st Contact Info) Description 08/17/2021 Transcribed Document [facility] [place] [facility] [place] [address] ProviderMaría MD [address] [place] [address] Social History Tobacco Use Types [...] COVID-19 pneumonia, and recent respiratory arrest at [facility] requiring tracheostomy/PEG about a month ago with transfer to [facility]. She was discharged on 08/11. She has been tolerating oral intake and was scheduled to have PEG removed next week. She began having pain around the PEG tube site around 3 days ago with the area becoming more red with burning sensation prompting her to come to [facility] ED on 08/14/21. She denies [...] mL - 600 mg, IV Piggyback, Inj, [id number], infuse over 30 Minute(s), Routine Anticoagulant enoxaparin (Lovenox) - 40 mg, SubCutaneous, Inj, [id number], Routine Cardiovascular carvedilol - 12.5 mg, Oral, [...] No tenderness, No deformity. Integumentary: Warm, Dry, [place], No pallor, No rash, PEG tube site [...] ALB L 2.6 (AUG 14) , ACC: [id number] ORDER: Culture Wound and Stain DATE: 08/15/2021 13:10 SOURCE: Drainage SITE: Trachea Reports Pre 08/17/2021 09:53 Moderate Growth Coagulase Negative Staphylococcus Moderate Growth Coagulase Negative Staphylococcus #2 Pre 08/16/2021 06:24 Culture in progress GS 08/15/2021 20:07 No cells seen No organisms seen. == ACC: [id number] ORDER: Culture Wound and Stain DATE: 08/15/2021 13:01 SOURCE: Surgical Swab SITE: Abdomen Reports Pre 08/17/2021 10:23 Moderate Growth Coagulase Negative Staphylococcus Moderate Growth Enterococcus species Pre 08/17/2021 09:46 Moderate Growth Coagulase Negative Staphylococcus Moderate Growth Gamma Hemolytic Streptococcus Pre 08/16/2021 06:23 Culture in progress GS 08/15/2021 14:15 No organisms seen. Few White Blood Cells == ACC: [id number] ORDER: Culture Blood DATE: 08/14/2021 19:11 SOURCE: Blood SITE: Reports Pre 08/16/2021 23:01 No growth at 2 days. Pre 08/15/2021 23:01 No growth at 1 day. Pre 08/15/2021 16:01 Culture less than 24 Hrs old == ACC: [id number] ORDER: Culture Blood DATE: 08/14/2021 19:11 SOURCE: [...] Continue wound care. 5. Obtain records from [facility] and [facility] and place on chart. 6. Continue [...]
--- OUTSIDE RECORDS SUMMARY | 2025-01-04 22:29 | XMS_ITS | Encounter Summary ---
Author Organization [employer] ([place], [place], [place], [place]) Address [address] [place] [address] Care Team Providers Care Data Transcriber Name Role Phone Unavailable Primary Care Provider Unavailabl e Encounter Details Date Type Department Care Team (Late st Contact Info) Description 08/16/2021 Transcribed Document [facility] Radiology [address] [place] [address] Saleem Jimenes MD [address] [place] [address] Social History Tobacco Use Types Packs/Day [...] mg, 12 mL, 124 mL/Hr, IV Piggyback, [id number] Depakote ER: 500 mg, Oral, Daily Dilaudid: 0.5 mg, IV Push, Q2H, PRN: Pain (Severe 7-10) Dulcolax Laxative: 5 mg, Oral, Daily, PRN: Constipation DuoNeb 0.5 mg-2.5 mg/3 mL inhalation solution: 3 mL, Nebulized Inhalation, RT_Q6H, PRN: Shortness of Breath Geodon: 40 mg, Oral, Daily Imitrex: 100 mg, Oral, Daily LaMICtal: 100 mg, Oral, Daily Lovenox: 40 mg, SubCutaneous, [id number] MiraLax: 17 Gram, Oral, Daily, PRN: Constipation [...] hours oral tablet, extended release: Tab, Oral, [id number], 0 Refill(s) acetaminophen-HYDROcodone 325 mg-5 mg oral [...] mL 600 mg 12 mL, IV Piggyback, [id number] divalproex sodium ER 500 mg tab 500 mg 1 Tab, Oral, Daily enoxaparin 40 mg/0.4 mL inj 40 mg 0.4 mL, SubCutaneous, [id number] famotidine 20 mg/2 mL inj 20 mg [...] History of obstructive sleep apnea / IMO [id number] / Confirmed Suicide risk / IMO [id number] / Confirmed, Active Problems (2) History of [...] 31.7 \ Radiology Results (Last 48 hours) [id number] -- 08/14/2021 22:53 CR Chest 1 Vw [...] 50 mL 600 mg, IV Piggyback, Inj, [id number], infuse over 30 Minute(s), Routine, Start 08/17/21 9:00:00 EDT, 124 mL/Hr, Indication: Skin and Skin Structure Infection ERIKA GRANADO MD-INF divalproex sodium (Depakote ER) 500 mg, Oral, ER Tab, Daily, Start 08/15/21 11:44:00 EDT SALEEM JIMENES MD-INT enoxaparin (Lovenox) 40 mg, SubCutaneous, Inj, [id number], Routine, Start 08/15/21 12:00:00 EDT, 08/15/21 12:21:00 EDT SALEEM JIMENES MD-INT gabapentin 800 mg, Oral, Cap, TID, Start 08/15/21 11:41:00 EDT SALEEM JIMENES MD-INT hydrALAZINE 10 mg, Oral, Tab, TID, Start 08/15/21 11:42:00 EDT SALEEM IJMENES MD-INT HYDROmorphone (Dilaudid) 0.5 mg, IV Push, [...] 250 mL 1,500 mg, IV Piggyback, Inj, [id number], infuse over 60 Minute(s), Start 08/15/21 11:00:00 [...]
--- OUTSIDE RECORDS SUMMARY | 2025-01-04 22:29 | XMS_ITS | Encounter Summary ---
Author Organization [employer] ([place], [place], [place], [place]) Address [address] [place] [address] Care Team Providers Care Inspector And Unloader Name Role Phone Unavailable Primary Care Provider Unavailabl e Encounter Details Date Type Department Care Team (Late st Contact Info) Description 08/16/2021 Transcribed Document [facility] [place] Family Medicine [address] [place] [address] ProviderMaría MD [address] [place] [address] Social History Tobacco Use Types [...] Historical ProviderMD - 08/16/2021 11:20 AM CDT [facility] PACU Summary Primary Physician: LEO DOMINGUEZ MD Finalized Date/Time: 08/16/21 12:29:38 Pt. Name: CARIN LUCERO/Sex: 1975 Female Med Rec #: [id number] Physician: EDUARD DE LOS SANTOS DO-INT Financial #: [id number] Pt. Type: I Room/Bed: [facility]/ Admit/Disch: 08/14/21 22:53:00 - Institution: [facility] PACU Case Times Entry 1 In PACU [...]
--- OUTSIDE RECORDS SUMMARY | 2025-01-04 22:29 | XMS_ITS | Encounter Summary ---
Author Organization [employer] ([place], [place], [place], [place]) Address [address] [place] [address] Care Team Providers Care Neonatal Nurse Practitioner Name Role Phone Unavailable Primary Care Provider Unavailabl e Encounter Details Date Type Department Care Team (Late st Contact Info) Description 08/18/2021 Transcribed Document [facility] [place] Family Medicine [facility] [place] [address] ProviderMaría MD [address] [place] [address] Social History Tobacco Use Types [...] COVID-19 pneumonia, and recent respiratory arrest at [facility] requiring tracheostomy/PEG about a month ago with transfer to [facility]. She was discharged on 08/11. She has been tolerating oral intake and was scheduled to have PEG removed next week. She began having pain around the PEG tube site around 3 days ago with the area becoming more red with burning sensation prompting her to come to [facility] ED on 08/14/21. She denies fever, [...] mL - 600 mg, IV Piggyback, Inj, [id number], infuse over 30 Minute(s), Routine Anticoagulant enoxaparin (Lovenox) - 40 mg, SubCutaneous, Inj, [id number], Routine Cardiovascular carvedilol - 12.5 mg, Oral, [...] No tenderness, No deformity. Integumentary: Warm, Dry, [place], No pallor, No rash, PEG tube site [...] 18) L 2.6 (AUG 14) , ACC: [id number] ORDER: Culture Wound and Stain DATE: 08/15/2021 [...] cells seen No organisms seen. == ACC: [id number] ORDER: Culture Wound and Stain DATE: 08/15/2021 [...] organisms seen. Few White Blood Cells == [facility]: [id number] ORDER: Culture Blood DATE: 08/14/2021 19:11 SOURCE: Blood SITE: Reports Pre 08/17/2021 23:01 No growth at 3 days. Pre 08/16/2021 23:01 No growth at 2 days. Pre 08/15/2021 23:01 No growth at 1 day. Pre 08/15/2021 16:01 Culture less than 24 Hrs old == ACC: [id number] ORDER: Culture Blood DATE: 08/14/2021 19:11 SOURCE: Blood SITE: Reports Pre 08/17/2021 23:01 No growth at 3 days. Pre 08/16/2021 23:01 No growth at 2 days. Pre 08/15/2021 23:01 No growth at 1 day. Pre 08/15/2021 16:01 Culture less than 24 Hrs old == . Chest x-ray results Radiology Results (Last 48 hours) [id number] -- 08/14/2021 22:53 CR Chest 1 Vw [...] Continue wound care. 5. Obtain records from [facility] and [facility] and place on chart. 6. Continue oxygen support as needed. Plan has been discussed with patient including side effects of medications and line. At increased risk for side effects of abx and line, and readmission. Discussed in detail with nursing, and the patient's mother. Follow-up can be arranged for primary care. Electronically signed by Roman Eckert Conversion Hydraulic Rubbish Compactor Mechanic Cerner at 09/18/2022 9:00 AM CDT documented in this encounter Plan of Treatment Not on file documented as of this encounter Visit Diagnoses Not on filedocumented in this encounter
--- OUTSIDE RECORDS SUMMARY | 2025-01-04 22:29 | XMS_ITS | Encounter Summary ---
Author Organization [employer] ([place], [place], [place], [place]) Address [address] [place] [address] Care Team Providers Care Marine Rigger Name Role Phone Unavailable Primary Care Provider Unavailabl e Encounter Details Date Type Department Care Team (Late st Contact Info) Description 08/16/2021 Transcribed Document [facility] [place] [facility] [place] [address] ProviderMaría MD [address] [place] [address] Social History Tobacco Use Types [...] EDT Electronically signed by Roman Eckert Conversion Inspector Packer Glass Container Cerner at 09/18/2022 9:18 AM CDT documented in this encounter Plan of Treatment Not on file documented as of this encounter Visit Diagnoses Not on filedocumented in this encounter
--- OUTSIDE RECORDS SUMMARY | 2025-01-04 22:29 | XMS_ITS | Encounter Summary ---
Author Organization [employer] ([place], [place], [place], [place]) Address [address] [place] [address] Care Team Providers Care Color Print Inspector Name Role Phone Unavailable Primary Care Provider Unavailabl e Encounter Details Date Type Department Care Team (Late st Contact Info) Description 08/16/2021 Transcribed Document [facility] [place] Family Medicine [address] [place] [address] ProviderMaría MD [address] [place] [address] Social History Tobacco Use Types [...] EDT Electronically signed by Roman Eckert Conversion Public Relations Sales Marketing Cerner at 09/18/2022 8:51 AM CDT documented in this encounter Plan of Treatment Not on file documented as of this encounter Visit Diagnoses Not on filedocumented in this encounter
--- OUTSIDE RECORDS SUMMARY | 2025-01-04 22:29 | XMS_ITS | Encounter Summary ---
Author Organization [employer] ([place], [place], [place], [place]) Address [address] [place] [address] Care Team Providers Care Card Grinder Helper Name Role Phone Unavailable Primary Care Provider Unavailabl e Encounter Details Date Type Department Care Team (Late st Contact Info) Description 08/16/2021 Transcribed Document [facility] [place] Family Medicine [facility] [place] [address] ProviderMaría MD [address] [place] [address] Social History Tobacco Use Types [...] On: 08/16/2021 12:52 EDT by EBEN HURTADO, Invoice Clerk Primary Insurance Authorization Authorization and Policy Numbers : Insurance 1 Health Plan: [facility] Policy Number: [id number] Authorization Number: Insurance Primary Name : [facility] Policy Number: [id number] Authorization Status-Primary : Admit approved Reference Number-Primary : [id number] Authorization Number-Primary : [id number] Number of Days Authorized-Primary : 4 Day(s) Authorized Service Begin Date-Primary : 08/14/2021 EST Authorized Service End Date-Primary : 08/18/2021 EDT Authorization Comments-Primary : inpt admit approved per fax from [facility] 08/16/21 auth# [id number] NRD 08-19-21 Historical Authorization Comments-Primary : Comment 1: Clinicals submitted on the [facility] website for IP approval (ROBERTO CARLOS CISNEROS RN 08/15/2021 12:09) EBEN HURTADO, Invoice Clerk - 08/16/2021 12:52 EDT Electronically signed by [facility] Conversion Heavy Equipment Service Manager Cerner at 09/18/2022 8:57 AM CDT documented in this encounter Plan of Treatment Not on file documented as of this encounter Visit Diagnoses Not on filedocumented in this encounter
--- OUTSIDE RECORDS SUMMARY | 2025-01-04 22:29 | XMS_ITS | Encounter Summary ---
Author Organization [employer] ([place], [place], [place], [place]) Address [address] [place] [address] Care Team Providers Care Glass Mold Repairer Name Role Phone Unavailable Primary Care Provider Unavailabl e Encounter Details Date Type Department Care Team (Late st Contact Info) Description 08/16/2021 Transcribed Document [facility] [place] [facility] [place] [address] ProviderMaría MD [address] [place] [address] Social History Tobacco Use Types [...] 08/16/2021 10:53 EDT Electronically signed by Tomeka [facility] Conversion Tieing Machine Operator Cerner at 09/18/2022 8:59 AM CDT documented in this encounter Plan of Treatment Not on file documented as of this encounter Visit Diagnoses Not on filedocumented in this encounter
--- OUTSIDE RECORDS SUMMARY | 2025-01-04 22:29 | XMS_ITS | Encounter Summary ---
Author Organization [employer] ([place], [place], [place], [place]) Address [address] [place] [address] Care Team Providers Care Mission Coordinator Name Role Phone Unavailable Primary Care Provider Unavailabl e Encounter Details Date Type Department Care Team (Late st Contact Info) Description 08/18/2021 Transcribed Document [facility] [place] Family Medicine [address] [place] [address] ProviderMaría MD [address] [place] [address] Social History Tobacco Use Types [...]
--- OUTSIDE RECORDS SUMMARY | 2025-01-04 22:29 | XMS_ITS | Encounter Summary ---
Author Organization [employer] ([place], [place], [place], [place]) Address [address] [place] [address] Care Team Providers Care Video Games Mechanic Name Role Phone Unavailable Primary Care Provider Unavailabl e Encounter Details Date Type Department Care Team (Late st Contact Info) Description 08/16/2021 Transcribed Document [facility] [place] Family Medicine Replaced by [facility] [place] [address] ProviderMaría MD [address] [place] [address] Social History Tobacco Use [...] On: 08/16/2021 17:33 EDT by JEANNETTE MANCERA, Radio Frequency Technician Care Management Progress Note Discharge Arrangements : [...] Attend Multidisciplinary Rounds? : Yes JEANNETTE MANCERA Radio Frequency Technician - 08/16/2021 17:33 EDT Narrative Progress Note [...] DCP: home with family support. JEANNETTE MANCERA Radio Frequency Technician - 08/16/2021 17:33 EDT documented in this encounter Plan of Treatment Not on file documented as of this encounter Visit Diagnoses Not on filedocumented in this encounter
--- OUTSIDE RECORDS SUMMARY | 2025-01-04 22:29 | XMS_ITS | Encounter Summary ---
Author Organization [employer] ([place], [place], [place], [place]) Address [address] [place] [address] Care Team Providers Care Direct Marketing Analyst Name Role Phone Unavailable Primary Care Provider Unavailabl e Encounter Details Date Type Department Care Team (Late st Contact Info) Description 08/16/2021 Transcribed Document [facility] [place] Family Medicine [address] [place] [address] ProviderMaría MD [address] [place] [address] Social History Tobacco Use Types [...] Historical ProviderMD - 08/16/2021 3:00 AM CDT Underground Mining Section Foreman Details Entered On: 08/16/2021 2:17 EDT Performed [...]
--- OUTSIDE RECORDS SUMMARY | 2025-01-04 22:29 | XMS_ITS | Clinical Summary ---
Author Organization [facility] Address [address] [place] [address] Phone Care Team Providers Care Landscape Architect Name Role Phone Unavailable Primary Care [...] to complete this topic Insurance [employer] [facility] [place] [id number] [address] [facility] [place] [address] [address] [facility] [facility] [place] [address] [address] [facility]
--- OUTSIDE RECORDS SUMMARY | 2025-01-04 22:29 | XMS_ITS | Encounter Summary ---
Author Organization [employer] ([place], [place], [place], [place]) Address [address] [place] [address] Care Team Providers Care Paste Plant Supervisor Name Role Phone Unavailable Primary Care Provider Unavailabl e Encounter Details Date Type Department Care Team (Late st Contact Info) Description 08/17/2021 Transcribed Document [facility] [place] Family Medicine [facility] [place] [address] ProviderMaría MD [address] [place] [address] Social History Tobacco Use Types [...]
--- OUTSIDE RECORDS SUMMARY | 2025-01-04 22:29 | XMS_ITS | Encounter Summary ---
Author Organization [employer] ([place], [place], [place], [place]) Address [address] [place] [address] Care Team Providers Care Director Internal Communications Name Role Phone Unavailable Primary Care Provider Unavailabl e Encounter Details Date Type Department Care Team (Late st Contact Info) Description 08/16/2021 Transcribed Document [facility] [place] Family Medicine [facility] [address] ProviderMaría MD [address] [place] [address] Social History Tobacco Use Types [...] Review HPI: 46 y/o F presenting to [facility] 2/2 abdominal pain w/ infxn around PEG tube site x 3 days. Per provider H&P: pt endorses burning sensation around site & noted redness. Recent hospital stay at [facility] - just discharged x 3 days prior to admission at [facility]. PMH significant for PEG [...] well. Thank you, Jacinto Baltazar, IbisD PGY1 Valve Inserter Pager: [phone], Ext. [phone] documented in this encounter Plan of Treatment Not on file documented as of this encounter Visit Diagnoses Not on filedocumented in this encounter
--- OUTSIDE RECORDS SUMMARY | 2025-01-04 22:29 | XMS_ITS | Encounter Summary ---
Author Organization [employer] ([place], [place], [place], [place]) Address [address] [place] [address] Care Team Providers Care Kiln Firer Helper Name Role Phone Unavailable Primary Care Provider Unavailabl e Encounter Details Date Type Department Care Team (Late st Contact Info) Description 08/16/2021 Transcribed Document [facility] [place] Family Medicine [address] [place] [address] ProviderMaría MD [address] [place] [address] Social History Tobacco Use Types [...] HEMA Gonzales, PT - 08/16/2021 12:18 EDT Electronically signed by Roman Eckert Conversion Supervisor Component Assembler Cerner at 09/18/2022 9:30 AM CDT documented in this encounter Plan of Treatment Not on file documented as of this encounter Visit Diagnoses Not on filedocumented in this encounter
--- OUTSIDE RECORDS SUMMARY | 2025-01-04 22:29 | XMS_ITS | Encounter Summary ---
Author Organization [employer] ([place], [place], [place], [place]) Address [address] [place] [address] Care Team Providers Care Skein Yarn Drier Name Role Phone Unavailable Primary Care Provider Unavailabl e Encounter Details Date Type Department Care Team (Late st Contact Info) Description 08/16/2021 Transcribed Document [facility] [place] Family Medicine [facility] [place] [address] ProviderMaría MD [address] [place] [address] Social History Tobacco Use [...] COVID-19 pneumonia, and recent respiratory arrest at [facility] requiring tracheostomy/PEG about a month ago with transfer to [facility]. She was discharged on 08/11. She has [...] m - 1,500 mg, IV Piggyback, Inj, [id number], infuse over 60 Minute(s) Anticoagulant enoxaparin (Lovenox) - 40 mg, SubCutaneous, Inj, [id number], Routine Cardiovascular hydrALAZINE - 10 mg, Oral, [...] No tenderness, No deformity. Integumentary: Warm, Dry, [place], No pallor, No rash, PEG tube site [...] ALB L 2.6 (AUG 14) , ACC: [id number] ORDER: Culture Wound and Stain DATE: 08/15/2021 13:10 SOURCE: Drainage SITE: Trachea Reports Pre 08/16/2021 06:24 Culture in progress GS 08/15/2021 20:07 No cells seen No organisms seen. == ACC: [id number] ORDER: Culture Wound and Stain DATE: 08/15/2021 13:01 SOURCE: Surgical Swab SITE: Abdomen Reports Pre 08/16/2021 06:23 Culture in progress GS 08/15/2021 14:15 No organisms seen. Few White Blood Cells == ACC: [id number] ORDER: Culture Blood DATE: 08/14/2021 19:11 SOURCE: Blood SITE: Reports Pre 08/15/2021 23:01 No growth at 1 day. Pre 08/15/2021 16:01 Culture less than 24 Hrs old == ACC: [id number] ORDER: Culture Blood DATE: 08/14/2021 19:11 SOURCE: Blood SITE: Reports Pre 08/15/2021 23:01 No growth at 1 day. Pre 08/15/2021 16:01 Culture less than 24 Hrs old == . Chest x-ray results Radiology Results (Last 48 hours) [id number] -- 08/14/2021 22:53 CR Chest 1 Vw [...] care per GI. 5. Obtain records from [facility] and [facility] and place on chart. 6. Continue oxygen [...]
--- OUTSIDE RECORDS SUMMARY | 2025-01-04 22:29 | XMS_ITS | Encounter Summary ---
Author Organization [employer] ([place], [place], [place], [place]) Address [address] [place] [address] Care Team Providers Care Tripe Scraper Name Role Phone Unavailable Primary Care Provider Unavailabl e Encounter Details Date Type Department Care Team (Late st Contact Info) Description 08/18/2021 Transcribed Document [facility] [place] Family Medicine [address] [place] [address] ProviderMaría MD [address] [place] [address] Social History Tobacco Use Types [...] Historical ProviderMD - 08/18/2021 3:04 PM CDT Ortley OT Charges Entered On: 08/18/2021 15:05 EDT Performed On: 08/18/2021 15:04 EDT by GIANNA RHODES OTR/L Ortley OT Charges OT EA ADDL 15 MIN NO CHARGE : 2 (Comment: MDR [GIANNA RHODES OTR/Az - 08/18/2021 15:05 EDT] ) GIANNA RHODES OTR/Az - 08/18/2021 15:05 EDT documented in this encounter Plan of Treatment Not on file documented as of this encounter Visit Diagnoses Not on filedocumented in this encounter
--- OUTSIDE RECORDS SUMMARY | 2025-01-04 22:29 | XMS_ITS | Encounter Summary ---
Author Organization [employer] ([place], [place], [place], [place]) Address [address] [place] [address] Care Team Providers Care Skiver Counter Name Role Phone Unavailable Primary Care Provider Unavailabl e Encounter Details Date Type Department Care Team (Late st Contact Info) Description 08/16/2021 Transcribed Document [facility] [place] Family Medicine [address] [place] [address] ProviderMaría MD [address] [place] [address] Social History Tobacco Use Types [...] Historical ProviderMD - 08/16/2021 11:20 AM CDT [facility] Endo IntraOp Summary Primary Physician: LEO DOMINGUEZ MD Finalized Date/Time: 08/16/21 11:25:45 Pt. Name: CARIN LUCERO D.O.B./Sex: 1975 Female Med Rec #: [id number] Physician: EDUARD DE LOS SANTOS DO-INT Financial #: [id number] Pt. Type: I Room/Bed: [facility]/ Admit/Disch: 08/14/21 22:53:00 - Institution: [facility] Endo - Case Attendance Entry 1 Entry 2 Entry 3 Case Attendee LEO DOMINGUEZ MD MILLER, MELISSA A, RN PRESCOTT, JACHELE, Crime Scene Specialist Role Performed Surgeon/Proceduralist, Journeyman Patternmaker, First Scrub, First First Time In 08/16/21 [...] 5 Case Attendee EDILBERTO PATTERSON MD-DARLENE JUAREZ, AUTISM SPECIALIST Role Performed Anesthesiologist of AUTISM SPECIALIST/Nurse Executive Producer [employer] Record Time In 08/16/21 11:14:00 08/16/21 11:14:00 Time Out 08/16/21 11:28:00 08/16/21 11:28:00 Procedure EGD w Peg Tube Removal EGD w Peg Tube Removal / Change / Change Other Attendee Superficial Wound Closed By: Last Modified By: CARIN HILLS, CARIN WALKER RN 08/16/21 11:25:33 08/16/21 11:25:33 [facility] Endo - Case Attendance Audit 08/16/21 11:25:33 Biodiesel Engine Specialist: MONTSE Modifier: REINIERMA 1 <+> Time In [...] Peg Tube Removal / Change 08/16/21 11:16:30 Biodiesel Engine Specialist: MONTSE Modifier: MILLERMA <+> 2 Case Attendee <+> 2 Role Performed <+> 2 Procedure <+> 3 Case Attendee <+> 3 Role Performed <+> 3 Procedure <+> 4 Case Attendee <+> 4 Role Performed <+> 4 Procedure <+> 5 Case Attendee <+> 5 Role Performed <+> 5 Procedure [facility] Endo - Case times Entry 1 Patient In Room Time 08/16/21 11:14:00 Out Room Time 08/16/21 11:28:00 Anesthesia Start Time 08/16/21 11:14:00 Stop Time 08/16/21 11:28:00 Surgery / Procedure Times Start Time 08/16/21 11:20:00 Stop Time 08/16/21 11:25:00 Last Modified By: CARIN HILLS RN 08/16/21 11:25:31 [facility] Endo - Case times Audit 08/16/21 11:25:31 Biodiesel Engine Specialist: MILLERMA Modifier: MILLERMA <+> 1 Out Room Time <+> 1 Stop Time <+> 1 Stop Time 08/16/21 11:22:00 Biodiesel Engine Specialist: REINIERMA Modifier: MILLERMA <+> 1 Start Time [facility] Endo - Delays Entry 1 Delay Reason Other, No Delay Duration 0 Minute(s) Last Modified By: CARIN HILLS RN 08/16/21 11:16:39 [facility] Endo - Departure from OR Entry 1 Integumentary Assessment Integumentary WDL Assessment WDL Transfer/Handoff Transfer to PACU Phase I Handoff Method Bedside/Face to face Post-op Transport Stretcher/Gurney Via Patient Transport CARIN HILLS RN, Accompanied by DARLENE KENNY CRNA Last Modified By: CARIN HILLS RN 08/16/21 11:16:42 [facility] Endo - Endoscopy Details Entry 1 Abdomen Procedure Soft, Non-Tender Assessment Procedure Abdomen 08/16/21 11:16:00 Assessment D/T Radio Frequency Ablation Abdominal Pressure Last Modified By: CARIN HILLS RN 08/16/21 11:16:45 [facility] Endo - Explant Log Entry 1 Explant Log Removal Reason Infection Last Modified By: CARIN HILLS RN 08/16/21 11:18:35 [facility] Endo - Fire Risk Assessment Entry 1 [...] Modified By: CARIN HILLS RN 08/16/21 11:16:48 [facility] Endo - General Case Book Mender 1 Case Information OR Endo 01 [facility] Case Level 1 Room Verified Yes Wound Class No Incision Specialty Gastroenterology Anesthesia Type General ASA Class 4 Diagnosis Preop Diagnosis infected peg Postop Same As Preop Yes Postop Diagnosis infected peg Wound Class Definitions Last Modified By: CARIN HILLS RN 08/16/21 11:17:34 [facility] Endo - Intraoperative Assessment Entry 1 Valid History / Yes Physical in Chart Preoperative Yes Checklist Reviewed/Evaluated Patient is Latex No Sensitive Level of WDL Consciousness (WDL = Alert, Oriented to Person, Place, and Time) Last Modified By: CARIN HILLS RN 08/16/21 11:17:36 [facility] Endo - Intraoperative Equipment Entry 1 Equipment Intraop Monitoring Electrocardiogram Three lead placement (ECG) Electrode Placement Blood Pressure Arm, left upper Location Pulse Oximeter Hand, right Probe Site Antiembolic Devices Scopes Flexible Endoscopes Gastroscope Used Scope Serial E Number/Identificatio n Number Photo/Video Documentation Photo Yes Video No Last Modified By: CARIN HILLS RN 08/16/21 11:17:43 [facility] Endo - Patient Positioning Entry 1 Procedure [...] Modified By: CARIN HILLS RN 08/16/21 11:17:45 [facility] Endo - Sign In Entry 1 Patient, Site, Yes Procedure Identified Surgical Consent Yes Confirmed Surgical Site N/A Marked by person performing procedure Airway Hypothermia Risk No Warming Measures No Taken Last Modified By: CARIN HILLS RN 08/16/21 11:17:51 [facility] Endo - Sign Out Entry 1 RN [...] Modified By: CARIN HILLS RN 08/16/21 11:25:42 [facility] Endo - Surgical Procedures Entry 1 Procedure EGD w Peg Tube Removal / Change Primary Procedure Yes Primary Surgeon LEO DOMINGUEZ MD Start 08/16/21 11:20:00 Stop 08/16/21 11:25:00 Anesthesia Type General Specialty Gastroenterology Wound Class No Incision Last Modified By: CARIN HILLS RN 08/16/21 11:25:43 [facility] Endo - Surgical Procedures Audit 08/16/21 11:25:43 Biodiesel Engine Specialist: REINIERLAWANDA Modifier: MONTSE <+> 1 Start <+> 1 Stop [facility] Endo - Time Out Entry 1 Procedure [...] RN 08/16/21 11:25 Electronically signed by Tomeka Freeman [facility] Conversion Hedis Analyst Cerner at 09/18/2022 9:26 AM CDT documented in this encounter Plan of Treatment Not on file documented as of this encounter Visit Diagnoses Not on filedocumented in this encounter
--- OUTSIDE RECORDS SUMMARY | 2025-01-04 22:29 | XMS_ITS | Encounter Summary ---
Author Organization [employer] ([place], [place], [place], [place]) Address [address] [place] [address] Care Team Providers Care Veneer Drier Feeder Name Role Phone Unavailable Primary Care Provider Unavailabl e Encounter Details Date Type Department Care Team (Late st Contact Info) Description 08/18/2021 Transcribed Document [facility] Radiology [address] [place] [address] Saleem Jimenes MD [address] [place] [address] Social History Tobacco Use Types Packs/Day [...] mg, 12 mL, 124 mL/Hr, IV Piggyback, [id number] Dulcolax Laxative: 5 mg, Oral, Daily, PRN: Constipation DuoNeb 0.5 mg-2.5 mg/3 mL inhalation solution: 3 mL, Nebulized Inhalation, RT_Q6H, PRN: Shortness of Breath Geodon: 40 mg, Oral, BID HYDROmorphone: 2 mg, Oral, Q4H, PRN: Breakthrough Pain Imitrex: 100 mg, Oral, Daily, PRN: Migraine Headache LaMICtal: 100 mg, Oral, Daily Lovenox: 40 mg, SubCutaneous, [id number] MiraLax: 17 Gram, Oral, Daily, PRN: Constipation [...] mL 600 mg 12 mL, IV Piggyback, [id number] enoxaparin 40 mg/0.4 mL inj 40 mg 0.4 mL, SubCutaneous, [id number] famotidine 20 mg tab 20 mg 1 [...] History of obstructive sleep apnea / IMO 62601820 / Confirmed Suicide risk / IMO 94125 / Confirmed, Active Problems (2) History of [...] 29.9 \ Radiology Results (Last 48 hours) [id number] -- 08/14/2021 22:53 CR Chest 1 Vw Portable (08/17/2021 09:40) Result: PORTABLE CHEST;HISTORY: Dyspnea.COMPARISON: August 14, 2021.FINDINGS: The heart is stable in size. The lung lira demonstrate nosignificant change in the bibasilar atelectasis. There is nopneumothorax. The support devices are in good position.IMPRESSION: There has been no significant interval change.Continued followup is recommended.Images reviewed, interpreted, and dictated by Dr. Catina Jansne.Transcribed by Lainey London PA-C.I have personally viewed, [...]
--- OUTSIDE RECORDS SUMMARY | 2025-01-04 22:29 | XMS_ITS | Encounter Summary ---
Author Organization [employer] ([place], [place], [place], [place]) Address [address] [place] [address] Care Team Providers Care Long Term Care Social Worker Name Role Phone Unavailable Primary Care Provider Unavailabl e Encounter Details Date Type Department Care Team (Late st Contact Info) Description 08/16/2021 Transcribed Document [facility] [place] [facility] [place] [address] ProviderMaría MD [address] [place] [address] Social History Tobacco Use Types [...] of the form. Electronically signed by Tomeka, [facility] Conversion Laboratory Courier Cerner at 09/23/2022 8:14 AM CDT documented in this encounter Plan of Treatment Not on file documented as of this encounter Visit Diagnoses Not on filedocumented in this encounter
--- OUTSIDE RECORDS SUMMARY | 2025-01-04 22:29 | XMS_ITS | Encounter Summary ---
Author Organization [employer] ([place], [place], [place], [place]) Address [address] [place] [address] Care Team Providers Care Team Automobile Assembler Name Role Phone Unavailable Primary Care Provider Unavailabl e Encounter Details Date Type Department Care Team (Late st Contact Info) Description 08/18/2021 Transcribed Document [facility] [place] [address] [place] [address] ProviderMaría MD [address] [place] [address] Social History Tobacco Use [...]
--- OUTSIDE RECORDS SUMMARY | 2025-01-04 22:29 | XMS_ITS | Encounter Summary ---
Author Organization [employer] ([place], [place], [place], [place]) Address [address] [place] [address] Care Team Providers Care Watch Repairer Name Role Phone Unavailable Primary Care Provider Unavailabl e Encounter Details Date Type Department Care Team (Late st Contact Info) Description 08/18/2021 Transcribed Document [facility] [place] [facility] [place] [address] ProviderMaría MD [address] [place] [address] Social History Tobacco Use Types [...]
--- OUTSIDE RECORDS SUMMARY | 2025-01-04 22:29 | XMS_ITS | Encounter Summary ---
Author Organization [employer] ([place], [place], [place], [place]) Address [address] [place] [address] Care Team Providers Care Application Support Administrator Name Role Phone Unavailable Primary Care Provider Unavailabl e Encounter Details Date Type Department Care Team (Late st Contact Info) Description 08/18/2021 Transcribed Document [facility] [place] [facility] [place] [address] ProviderMaría MD [place] [address] Social History Tobacco Use Types [...] On: 08/18/2021 12:56 EDT by Piper Massey Body Welder Rn Care Management Progress Note Discharge Arrangements [...] Meeting Medical Necessity : Yes Piper Massey, Body Welder Rn - 08/18/2021 12:56 EDT Narrative Progress [...] is home with family support. ERVIN HERNANDEZ, Classification Counselor - 08/17/21 15:04:51 HD 3/ELOS 3/RRS low [...] DCP: home with family support. JEANNETTE MANCERA, Classification Counselor - 08/16/21 17:36:38 Piper Massey, Body Welder Rn - 08/18/2021 12:56 EDT Electronically signed by Tomeka [facility] Conversion Skein Yarn Dyer Cerner at 09/18/2022 9:32 AM CDT documented in this encounter Plan of Treatment Not on file documented as of this encounter Visit Diagnoses Not on filedocumented in this encounter
--- OUTSIDE RECORDS SUMMARY | 2025-01-04 22:29 | XMS_ITS | Encounter Summary ---
Author Organization [employer] ([place], [place], [place], [place]) Address [address] [place] [address] Care Team Providers Care Waistline Joiner Name Role Phone Unavailable Primary Care Provider Unavailabl e Encounter Details Date Type Department Care Team (Late st Contact Info) Description 08/16/2021 Transcribed Document [facility] [place] [address] [place] [address] ProviderMaría MD [address] [place] [address] Social History Tobacco Use Types [...] Historical ProviderMD - 08/16/2021 9:00 AM CDT [facility] Bi PreOp Summary Primary Physician: LEO DOMINGUEZ MD Finalized Date/Time: 08/16/21 11:09:03 Pt. Name: CARIN LUCERO/Sex: 1975 Female Med Rec #: [id number] Physician: EDUARD DE LOS SANTOS DO-INT Financial #: [id number] Pt. Type: I Room/Bed: [facility]/1 Admit/Disch: 08/14/21 22:53:00 - Institution: [facility] PreOp Case Times Entry 1 In [...] I 08/16/21 11:09 Electronically signed by Tomeka [facility] Conversion Motor Power Connector Cerner at 09/18/2022 9:00 AM CDT documented in this encounter Plan of Treatment Not on file documented as of this encounter Visit Diagnoses Not on filedocumented in this encounter
--- OUTSIDE RECORDS SUMMARY | 2025-01-04 22:29 | XMS_ITS | Encounter Summary ---
Author Organization [employer] ([place], [place], [place], [place]) Address [address] [place] [address] Care Team Providers Care Plant Electrician Name Role Phone Unavailable Primary Care Provider Unavailabl e Encounter Details Date Type Department Care Team (Late st Contact Info) Description 08/16/2021 Transcribed Document [facility] [place] Family Medicine Counts include 234 beds at the [facility] [place] [address] ProviderMaría MD [address] [place] [address] Social History Tobacco Use Types [...]
--- OUTSIDE RECORDS SUMMARY | 2025-01-04 22:30 | XMS_ITS | Encounter Summary ---
Author Organization [employer] ([place], [place], [place], [place]) Address [address] [place] [address] Care Team Providers Care Tube Washer Name Role Phone Unavailable Primary Care Provider Unavailabl e Encounter Details Date Type Department Care Team (Late st Contact Info) Description 08/17/2021 Transcribed Document [facility] [place] [facility] [place] [address] ProviderMaría MD [address] [place] [address] Social History Tobacco Use Types [...] On: 08/17/2021 15:03 EDT by ERVIN HERNANDEZ, Hoop Expander Care Management Progress Note Discharge Arrangements : [...] Attend Multidisciplinary Rounds? : Yes ERVIN HERNANDEZ, Hoop Expander - 08/17/2021 15:03 EDT Narrative Progress Note [...] DCP: home with family support. JEANNETTE MANCERA Hoop Expander - 08/16/21 17:36:38 ERVIN HERNANDEZ Hoop Expander - 08/17/2021 15:03 EDT documented in this encounter Plan of Treatment Not on file documented as of this encounter Visit Diagnoses Not on filedocumented in this encounter
--- OUTSIDE RECORDS SUMMARY | 2025-01-04 22:30 | XMS_ITS | Encounter Summary ---
Author Organization [employer] ([place], [place], [place], [place]) Address [address] [place] [address] Care Team Providers Care Summer Counselor Name Role Phone Unavailable Primary Care Provider Unavailabl e Encounter Details Date Type Department Care Team (Late st Contact Info) Description 08/15/2021 Transcribed Document [facility] [place] [address] [place] [address] ProviderMaría MD [address] [place], [place] [id number] Social History Tobacco Use Types Packs/Day Years [...] On: 08/15/2021 11:49 EDT by Sandy Owens [facility] Phone Call for Consults Consult Phone Call/Page Attempt : First call Consult Reason : Abdominal wall cellulitis Physician Requested for Consult : ERIKA GRANADO MD-INF Provider Service Notified Name : Infectious Disease Date and Time Call Returned : 08/15/2021 13:23 EDT Sandy Owens [facility] - 08/15/2021 13:22 EDT documented in this encounter Plan of Treatment Not on file documented as of this encounter Visit Diagnoses Not on filedocumented in this encounter
--- OUTSIDE RECORDS SUMMARY | 2025-01-04 22:30 | XMS_ITS | Encounter Summary ---
Author Organization [employer] ([place], [place], [place], [place]) Address [address] [place] [address] Care Team Providers Care Automotive Light Mechanic Name Role Phone Unavailable Primary Care Provider Unavailabl e Encounter Details Date Type Department Care Team (Late st Contact Info) Description 08/19/2021 Transcribed Document [facility] [place] [address] ProviderMaría MD [address] [place] [address] Social History Tobacco Use Types [...] On: 08/19/2021 14:01 EDT by JEANNETTE MANCERA Counter Installer Final Discharge Planning Discharge Arrangements : Patient [...] Services (Related/SOC within 3 days)-06 JEANNETTE MANCERA Counter Installer - 08/19/2021 14:01 EDT Final Narrative Note [...] and in agreement with plan. JEANNETTE MANCERA Counter Installer - 08/19/2021 14:01 EDT Electronically signed by Tomeka [facility] Conversion Factory Process Workers Cerner at 09/18/2022 9:26 AM CDT documented in this encounter Plan of Treatment Not on file documented as of this encounter Visit Diagnoses Not on filedocumented in this encounter
--- OUTSIDE RECORDS SUMMARY | 2025-01-04 22:30 | XMS_ITS | Encounter Summary ---
Author Organization [employer] ([place], [place], [place], [place]) Address [address] [place] [address] Care Team Providers Care Director Of Quality Name Role Phone Unavailable Primary Care Provider Unavailabl e Encounter Details Date Type Department Care Team (Late st Contact Info) Description 08/19/2021 Transcribed Document [facility] [place] [facility] [place] [address] ProviderMaría MD [address] [place] [address] Social History Tobacco Use Types Packs/Day [...]
--- OUTSIDE RECORDS SUMMARY | 2025-01-04 22:30 | XMS_ITS | Encounter Summary ---
Author Organization [employer] ([place], [place], [place], [place]) Address [address] [place] [address] Care Team Providers Care Circular Sawyer Stone Name Role Phone Unavailable Primary Care Provider Unavailabl e Encounter Details Date Type Department Care Team (Late st Contact Info) Description 09/30/2021 Transcribed Document [facility] [place] [facility] [place] [address] ProviderMaría MD [address] [place] [address] Social History Tobacco Use Types [...]
--- OUTSIDE RECORDS SUMMARY | 2025-01-04 22:30 | XMS_ITS | Encounter Summary ---
Author Organization [employer] ([place], [place], [place], [place]) Address [address] [place] [address] Care Team Providers Care Harmonica Maker Name Role Phone Unavailable Primary Care Provider Unavailabl e Encounter Details Date Type Department Care Team (Late st Contact Info) Description 08/17/2021 Transcribed Document [facility] [place] [facility] [place] [address] ProviderMaría MD [address] [place] [address] Social History Tobacco Use Types [...] 4 Pain Scale Used : 0-10 Scale Qyunh Gunter RN - 08/18/2021 2:01 EDT Pain [...]
--- OUTSIDE RECORDS SUMMARY | 2025-01-04 22:30 | XMS_ITS | Encounter Summary ---
Author Organization [employer] ([place], [place], [place], [place]) Address [address] [place] [address] Care Team Providers Care Board Layer Name Role Phone Unavailable Primary Care Provider Unavailabl e Encounter Details Date Type Department Care Team (Late st Contact Info) Description 08/17/2021 Transcribed Document [facility] [place] [facility] [place] [address] ProviderMaría MD [address] [place] [address] Social History Tobacco Use Types [...] change in location/level of care Rapid Response Board Layer #1 : Carin Hernandez V, Rn Carin Hernandez V, Rn - 08/17/2021 5:25 EDT documented in this encounter Plan of Treatment Not on file documented as of this encounter Visit Diagnoses Not on filedocumented in this encounter
--- OUTSIDE RECORDS SUMMARY | 2025-01-04 22:30 | XMS_ITS | Encounter Summary ---
Author Organization [employer] ([place], [place], [place], [place]) Address [address] [place] [address] Care Team Providers Care Cooky Packer Name Role Phone Unavailable Primary Care Provider Unavailabl e Encounter Details Date Type Department Care Team (Late st Contact Info) Description 08/15/2021 Transcribed Document [facility] [place] [address] ProviderMaría MD [address] [place] [address] Social History Tobacco Use Types [...] - Historical ProviderMD - 08/15/2021 12:22 AM HUMANITIES PROFESSOR ED Event Note Entered On: 08/15/2021 0:23 [...]
--- OUTSIDE RECORDS SUMMARY | 2025-01-04 22:30 | XMS_ITS | Encounter Summary ---
Author Organization [employer] ([place], [place], [place], [place]) Address [address] [place] [address] Care Team Providers Care Air Conditioning Mechanic Name Role Phone Unavailable Primary Care Provider Unavailabl e Encounter Details Date Type Department Care Team (Late st Contact Info) Description 08/15/2021 Transcribed Document [facility] [place] [address] [place] [address] ProviderMaría MD [address] [place] [address] Social History Tobacco Use Types [...] - Historical ProviderMD - 08/15/2021 12:00 AM PATCHER BOWLING BALL ED Event Note Entered On: 08/15/2021 0:00 [...]
--- OUTSIDE RECORDS SUMMARY | 2025-01-04 22:30 | XMS_ITS | Encounter Summary ---
Author Organization [employer] ([place], [place], [place], [place]) Address [address] [place] [address] Care Team Providers Care Interactive Graphic Designer Name Role Phone Unavailable Primary Care Provider Unavailabl e Encounter Details Date Type Department Care Team (Late st Contact Info) Description 08/19/2021 Transcribed Document [facility] [place] [address] [place] [address] ProviderMaría MD [address] [place] [address] Social History Tobacco Use Types [...]
--- OUTSIDE RECORDS SUMMARY | 2025-01-04 22:30 | XMS_ITS | Encounter Summary ---
Author Organization [employer] ([place], [place], [place], [place]) Address [address] [place] [address] Care Team Providers Care Deck And Hull Assembler Name Role Phone Unavailable Primary Care Provider Unavailabl e Encounter Details Date Type Department Care Team (Late st Contact Info) Description 08/14/2021 Transcribed Document [facility] [place] [facility] [place] [address] ProviderMaría MD [facility] [place] [address] Social History Tobacco Use Types [...] - Historical Provider, - 08/14/2021 11:19 PM CREDIT ADJUSTER Evaluation, Occupational Therapy Entered On: 08/15/2021 15:01 [...] abdominal pain Therapy Diagnosis, OT : Decreased [place] with ADLs secondary to generalized weakness Onset [...] JANIS PANDYA OTR/Az - 08/15/2021 14:38 EDT Half[place] Goals, OT Grooming LTG Grid Goal #1 Activity : Grooming Assist : Independent, modified Date to Meet : 08/29/2021 EDT Goal Status : Initial goal Comment : Standing JANIS PANDYA OTR/L - 08/15/2021 14:38 EDT Dressing, Lower Body LTG Grid Goal #1 Activity : Dressing, Lower Body Assist : Independent, modified Equipment : Long Handled Excavator Operator, Sock aid, Long handled shoehorn Date to [...] date due to pain. Attempted to consult nutrition partner, however pt denied. RN notified of pt [...] JANIS PANDYA OTR/Az - 08/15/2021 14:38 EDT [place] OT Charges OT Eval Moderate Complexity : 1 JANIS PANDYA OTR/Az - 08/15/2021 14:38 EDT documented in this encounter Plan of Treatment Not on file documented as of this encounter Visit Diagnoses Not on filedocumented in this encounter
--- OUTSIDE RECORDS SUMMARY | 2025-01-04 22:30 | XMS_ITS | Encounter Summary ---
Author Organization [employer] ([place], [place], [place], [place]) Address [address] [place] [address] Care Team Providers Care Assistant Golf Professional Name Role Phone Unavailable Primary Care Provider Unavailabl e Encounter Details Date Type Department Care Team (Late st Contact Info) Description 08/17/2021 Transcribed Document [facility] [place] [address] [place] [address] ProviderMaría MD [address], [place] [id number] Social History Tobacco Use Types Packs/Day Years [...]
--- OUTSIDE RECORDS SUMMARY | 2025-01-04 22:30 | XMS_ITS | Encounter Summary ---
Author Organization [employer] ([place], [place], [place], [place]) Address [address] [place] [address] Care Team Providers Care Nuclear Process Engineer Name Role Phone Unavailable Primary Care Provider Unavailabl e Encounter Details Date Type Department Care Team (Late st Contact Info) Description 08/19/2021 Transcribed Document [facility] [place] [facility] [place] [address] ProviderMaría MD [address] [place] [address] Social History Tobacco Use Types [...] On: 08/19/2021 9:00 EDT by VASYL HIGGINS, EWA-Carpenter SupervisorChemical Supervisor Insurance Authorization Authorization and Policy Numbers : Insurance 1 Health Plan: [facility] Policy Number: [id number] Authorization Number: Insurance Primary Name : [facility] Policy Number: [id number] Authorization Status-Primary : Admit approved Reference Number-Primary : [id number] Authorization Number-Primary : [id number] Number of Days Authorized-Primary : 4 Day(s) Authorized Service Begin Date-Primary : 08/14/2021 EST Authorized Service End Date-Primary : 08/18/2021 EDT Authorization Comments-Primary : c/s review for inpt faxed wo to [facility] via [employer]. Historical Authorization Comments-Primary : Comment 1: inpt admit approved per fax from [facility] 08/16/21 auth# [id number] NRD 08-19-21 (EBEN HURTADO, Methods Analyst Data Processing 08/16/2021 12:52) Comment 2: Clinicals submitted on [facility] website for IP approval (ROBERTO CARLOS CISNEROS RN 08/15/2021 12:09) VASYL HIGGINS, EWA-Carpenter Supervisor - 08/19/2021 9:00 EDT documented in this encounter Plan of Treatment Not on file documented as of this encounter Visit Diagnoses Not on filedocumented in this encounter
--- OUTSIDE RECORDS SUMMARY | 2025-01-04 22:30 | XMS_ITS | Encounter Summary ---
Author Organization [employer] ([place], [place], [place], [place]) Address [address] [place] [address] Care Team Providers Care Director Of Entertainment Name Role Phone Unavailable Primary Care Provider Unavailabl e Encounter Details Date Type Department Care Team (Late st Contact Info) Description 08/14/2021 Transcribed Document [facility] [place] [address] [place] [address] ProviderMaría MD [address] [place] [address] Social History Tobacco Use [...] - Historical ProviderMD - 08/14/2021 6:43 PM PRODUCTION QUALITY MANAGER [place] Violence Assessment Entered On: 08/14/2021 21:48 [...]
--- OUTSIDE RECORDS SUMMARY | 2025-01-04 22:30 | XMS_ITS | Encounter Summary ---
Author Organization [employer] ([place], [place], [place], [place]) Address [address] [place] [address] Care Team Providers Care Relay Checker Name Role Phone Unavailable Primary Care Provider Unavailabl e Encounter Details Date Type Department Care Team (Late st Contact Info) Description 08/14/2021 Transcribed Document [facility] [place] Family Medicine [facility] [place] [address] ProviderMaría MD [place] [address] Social History Tobacco Use Types [...] - Historical ProviderMD - 08/14/2021 8:44 PM ELECTRONIC SCALE TESTER Pain Assessment Entered On: 08/14/2021 21:38 EST [...]
--- OUTSIDE RECORDS SUMMARY | 2025-01-04 22:30 | XMS_ITS | Encounter Summary ---
Author Organization [employer] ([place], [place], [place], [place]) Address [address] [place] [address] Care Team Providers Care Paediatric Physiotherapist Name Role Phone Unavailable Primary Care Provider Unavailabl e Encounter Details Date Type Department Care Team (Late st Contact Info) Description 08/15/2021 Transcribed Document [facility] [place] [facility] [place] [address] ProviderMaría MD [address] [place] [address] Social History Tobacco Use Types [...] COVID-19 pneumonia, and recent respiratory arrest at [facility] requiring tracheostomy/PEG about a month ago with transfer to [facility]. She was discharged on 08/11. She has been tolerating oral intake and was scheduled to have PEG removed next week. She began having pain around the PEG tube site around 3 days ago with the area becoming more red with burning sensation prompting her to come to [facility] on 08/14/21. She denies fever, chills, [...] mg, Oral, Daily Lovenox: 40 mg, SubCutaneous, E06THop MiraLax: 17 Gram, Oral, Daily, PRN: Constipation [...] mL: 1,500 mg, 250 mL/Hr, IV Piggyback, [id number] Prescriptions Prescribed Bentyl 20 mg oral tablet: [...] hours oral tablet, extended release: Tab, Oral, [id number], 0 Refill(s) acetaminophen-HYDROcodone 325 mg-5 mg oral [...] m - 1,500 mg, IV Piggyback, Inj, E31HJds, infuse over 60 Minute(s) Anticoagulant enoxaparin (Lovenox) - 40 mg, SubCutaneous, Inj, U39MFqy, Routine Cardiovascular hydrALAZINE - 10 mg, Oral, [...] History of obstructive sleep apnea / IMO [id number] / Confirmed Suicide risk / IMO 45725 / Confirmed, Active Problems (2) History of [...] every day smoker . Single, lives in [place], [place]. Smokes daily, no alcohol or illicit [...] No tenderness, No deformity. Integumentary: Warm, Dry, [place], No pallor, No rash, PEG tube site [...] Radiology results Radiology Results (Last 48 hours) [id number] -- 08/14/2021 22:53 CR Chest 1 Vw [...] care per GI. 5. Obtain records from [facility] and [facility] and place on chart. 6. [...] Dr. Manuelito Smith. Electronically signed by Tomeka [facility] Conversion Engine Assembler Cerner at 09/18/2022 8:51 AM CDT documented in this encounter Plan of Treatment Not on file documented as of this encounter Visit Diagnoses Not on filedocumented in this encounter
--- OUTSIDE RECORDS SUMMARY | 2025-01-04 22:30 | XMS_ITS | Encounter Summary ---
Author Organization [employer] ([place], [place], [place], [place]) Address [address] [place] [address] Care Team Providers Care Carpenter Mate Name Role Phone Unavailable Primary Care Provider Unavailabl e Encounter Details Date Type Department Care Team (Late st Contact Info) Description 09/30/2021 Transcribed Document [facility] [place] [facility] [place] [address] ProviderMaría MD [address] [place] [address] Social History Tobacco Use Types [...] Roberts MD - 09/30/2021 8:31 PM CDT [facility] [address] [place], [place] [id number] JAZMINE CARIN :1975 Visit Time:09/30/2021 Your Visit [...] 2 to 3 days Where: [place] [address]- Business (1) Allergies metoclopramide Immunizations This Visit No Immunizations Found Medications What How Much When Instructions Next Dose chlorpheniramine-hydrocodone (Tussionex PennKinetic 10 mg-8 mg/ 5 mL oral suspension, extended release) 5 Milliliter(s) Oral Every 12 hours Duration: 5 Day(s) Pickup at [facility]/pharmacy #[id number] doxycycline (doxycycline monohydrate 100 mg oral tablet) 1 Tablet(s) Oral Two Times A Day Duration: 10 Day(s) Pickup at [facility] acetaminophen-hydrocodone (acetaminophen-HYDROcodone 325 mg-5 mg oral tablet) [...] Oral Two Times A Day Pharmacy Information [facility]/pharmacy #[id number]: [address] [place], [place] [id number] [phone] Pending Sale To [facility] [place]: [address] [facility] [address] [place], [place] [id number] [phone] The home medications listed are only as [...] range between ( 0.0 and 7.0 ) [place] #: 0.49 K/uL -- Normal range between ( 0.16 and 1.00 ) Eos #: 0.03 x10(3)/uL -- Normal range between ( 0.00 and 0.80 ) [place] %: 6.9 % -- Normal range between [...] these instructions at home: Medicines ??? Take yajx-gwz-owwfklf and prescription medicines only as told by [...] and water are not available, use hand stitcher special machine. Contact a health care provider if you [...] provider. Document Revised: 03/03/2020 Document Reviewed: 03/03/2020 [employer] Patient Education ?? 2020 [employer]. Emergency Awareness and Preventative Care STROKE is [...] Assistance with quitting is available by contacting 0-495-WXGWNOW. This is a free resource providing counseling, support, and referral. Or you may contact your personal physician. [place] Suicide Prevention Lifeline: The National Suicide Prevention [...] was given the opportunity to ask questions. Patient/Fruit Grading Supervisor Name: Patient/Fruit Grading Supervisor Signature: Relationship to Patient: Clinician/Hospital Fruit Grading Supervisor Signature: Please Provide a Telephone Number Where You Can Be Reached: Is it Permissible To Leave a Message? Date: Electronically signed by Tomeka, Roman Conversion Publications Sales Representative Florinner at 09/18/2022 9:18 AM CDT documented in this encounter Plan of Treatment Not on file documented as of this encounter Visit Diagnoses Not on filedocumented in this encounter
--- OUTSIDE RECORDS SUMMARY | 2025-01-04 22:30 | XMS_ITS | Encounter Summary ---
Author Organization [employer] ([place], [place], [place], [place]) Address [address] [place] [address] Care Team Providers Care Claim Technician Name Role Phone Unavailable Primary Care Provider Unavailabl e Encounter Details Date Type Department Care Team (Late st Contact Info) Description 08/15/2021 Transcribed Document [facility] [place] [facility] [place] [address] ProviderMaría MD [address] [place] [address] Social History Tobacco Use Types [...] HPI: 46 y/o F presenting to [facility] 2/2 abdominal pain w/ infxn around PEG tube site x 3 days. Per provider H&P: pt endorses burning sensation around site & noted redness. Recent hospital stay [facility] - just discharged x 3 days prior to admission at [facility]. PMH significant for PEG tube placement, recent [...] questions. Thank you, Jacinto Baltazar, PharmD PGY1 Manager [place]ow Pager: [phone], Ext. [phone] documented in this encounter Plan of Treatment Not on file documented as of this encounter Visit Diagnoses Not on filedocumented in this encounter
--- OUTSIDE RECORDS SUMMARY | 2025-01-04 22:30 | XMS_ITS | Encounter Summary ---
Author Organization [employer] ([place], [place], [place], [place]) Address [address] [place] [address] Care Team Providers Care Emergency Preparedness Coordinator Name Role Phone Unavailable Primary Care Provider Unavailabl e Encounter Details Date Type Department Care Team (Late st Contact Info) Description 10/01/2021 Transcribed Document [facility] [place] Family Medicine [address] [place] [address] ProviderMaría MD [address] [place] [address] Social History Tobacco Use Types [...]
--- OUTSIDE RECORDS SUMMARY | 2025-01-04 22:30 | XMS_ITS | Encounter Summary ---
Author Organization [employer] ([place], [place], [place], [place]) Address [address] [place] [address] Care Team Providers Care Motor Builder Winder Name Role Phone Unavailable Primary Care Provider Unavailabl e Encounter Details Date Type Department Care Team (Late st Contact Info) Description 08/15/2021 Transcribed Document [facility] [place] [facility] [place] [address] ProviderMaría MD [facility] [place] [address] Social History Tobacco Use Types [...] - Historical ProviderMD - 08/15/2021 12:24 AM TECHNICAL SALES REPRESENTATIVES ED Discharge Entered On: 08/15/2021 0:24 EST [...] 0:24 EST Electronically signed by Tomeka [facility] Conversion Information Services Assistant Cerner at 09/18/2022 8:57 AM CDT documented in this encounter Plan of Treatment Not on file documented as of this encounter Visit Diagnoses Not on filedocumented in this encounter
--- OUTSIDE RECORDS SUMMARY | 2025-01-04 22:30 | XMS_ITS | Encounter Summary ---
Author Organization [employer] ([place], [place], [place], [place]) Address [address] [place] [address] Care Team Providers Care Business Systems Technician Name Role Phone Unavailable Primary Care Provider Unavailabl e Encounter Details Date Type Department Care Team (Late st Contact Info) Description 08/14/2021 Transcribed Document [facility] [place] [facility] [place] [address] ProviderMaría MD [address] [place] [address] Social History Tobacco Use [...] - Historical ProviderMD - 08/14/2021 6:43 PM HOURLY MANAGER ED Triage Entered On: 08/14/2021 19:02 EST [...] : 2 - Emergent Tracking Group : [facility] ED CORTEZ CERVANTES RN - 08/14/2021 18:55 [...] PNED ; Probability: 0 ; Diagnosis Code: [id number] ED Height and Weight Height Source : Stated Height Entry Format : [place] Height, Feet : 5 ft(Converted to: 152 cm, 60 Inch) Height, Inches : 1 Inch(Converted to: 0 ft 1 Inch, 2.54 cm) Clinical Height : 154.94 cm Weight Source, ED : Critical estimated dosing weight Weight Entry Format : [place] Weight, Pounds : 305 lb Clinical Dosing Weight : 138.64 kg Body Surface Area (BSA) : 2.26 m2 Body Mass Index : 57.8 kg/m2 (>HHI) Hermann Body Weight (IBW) : 47.45 kg CORTEZ [...]
--- OUTSIDE RECORDS SUMMARY | 2025-01-04 22:30 | XMS_ITS | Encounter Summary ---
Author Organization [employer] ([place], [place], [place], [place]) Address [address] [place] [address] Care Team Providers Care Friction Welding Machine Operator Name Role Phone Unavailable Primary Care Provider Unavailabl e Encounter Details Date Type Department Care Team (Late st Contact Info) Description 08/19/2021 Transcribed Document [facility] [place] Family Medicine [address] [place] [address] ProviderMaría MD [address] [place] [address] Social History Tobacco Use Types [...]
--- OUTSIDE RECORDS SUMMARY | 2025-01-04 22:30 | XMS_ITS | Encounter Summary ---
Author Organization [employer] ([place], [place], [place], [place]) Address [address] [place] [address] Care Team Providers Care Wall Cleaner Name Role Phone Unavailable Primary Care Provider Unavailabl e Encounter Details Date Type Department Care Team (Late st Contact Info) Description 09/30/2021 Transcribed Document [facility] [place] [address] [place] [address] ProviderMaría MD [address] [place] [address] Social History Tobacco Use Types [...]
--- OUTSIDE RECORDS SUMMARY | 2025-01-04 22:30 | XMS_ITS | Encounter Summary ---
Author Organization [employer] ([place], [place], [place], [place]) Address [address] [place] [address] Care Team Providers Care Household Appliance Assembler Name Role Phone Unavailable Primary Care Provider Unavailabl e Encounter Details Date Type Department Care Team (Late st Contact Info) Description 08/15/2021 Transcribed Document [facility] [place] [address] [place] [address] ProviderMaría MD [address] [place] [address] Social History Tobacco Use Types [...] On: 08/15/2021 13:29 EDT by EBEN STEPHENS, RN-Mixer Diamond Powder Initial Assessment I Previously Documented Living Environment : No qualifying data available. Living Situation : Home Patient Lives With : Parent(s) Emergency Contact #1 : Kallie Meredith Emergency Contact #1 Phone Number : [phone] Emergency Contact #1 Relationship : Mother/hcs Emergency Contact #2 : NA Emergency Contact #2 Phone Number : NA Emergency Contact #2 Relationship : NA Identified Medical Decision Maker : Kallie Meredith Identified Medical Decision Maker Enter Doctors Name : Beny Chris MD Does Patient have PCP Listed? : Yes Medical Durable Power of Nutritional Yeast Supervisor Name : no Legal Guardian : No Date Hospital Obtained Advance Directive : 08/15/2021 EST Is Guardianship Needed : No EBEN STEPHENS RN-Mixer Diamond Powder - 08/15/2021 13:29 EDT Initial Assessment II Sensory and Motor Deficits : Weakness Current Home Treatments and Equipment : Oxygen therapy, Tracheostomy care, Walker Home Equipment Contact Information : [facility] [phone] Does the Patient have a Floor to SNF Benefit? : No EBEN STEPHENS RN-Mixer Diamond Powder - 08/15/2021 13:29 EDT Discharge Needs I Anticipated Discharge Date : 08/18/2021 EDT Anticipated Discharge To, CM : Home with home health, Rehabilitation Unit Current Home Treatment/Equipment : Current Home Treatment/Equipment No qualifying data available. Post Acute/Home Treatments : Oxygen therapy, Tracheostomy care, Walker Documentation Status Complete : Yes EBEN STEPHENS RN-Mixer Diamond Powder - 08/15/2021 13:29 EDT Discharge Needs II Professional Skilled Services : Professional Skilled Services No qualifying data available. Needs Assistance with Transportation : No Discharge Options Discussed with Patient : Acute rehabilitation, Home Health Patient Discharge Goal : Home health care EBEN STEPHENS RN-Mixer Diamond Powder - 08/15/2021 13:29 EDT Narrative Note Narrative [...] spoke with Ms. Badillo. she [place] with mom Kallie. has mentioned equipment to include trach & humidified air provided by [facility]. had bipap in past provided by [facility] not now as has trach. no hh. [facility]. dcp: acute rehab vs hh. she is adamant about going home. she would consider home health. would like shower chair on dc. she advises mom is poa/hcs. mom to bring copy of document. Kallie Spencer, mom, spoke with Ramesh, bedside RN. alert to family bringing living will EBEN STEPHENS, RN-Mixer Diamond Powder - 08/15/2021 13:29 EDT documented in this encounter Plan of Treatment Not on file documented as of this encounter Visit Diagnoses Not on filedocumented in this encounter
--- OUTSIDE RECORDS SUMMARY | 2025-01-04 22:30 | XMS_ITS | Encounter Summary ---
Author Organization [employer] ([place], [place], [place], [place]) Address [address] [place] [address] Care Team Providers Care Glass Carrier Name Role Phone Unavailable Primary Care Provider Unavailabl e Encounter Details Date Type Department Care Team (Late st Contact Info) Description 08/14/[address] [facility] [place] Medicine [facility] [place] [address] ProviderMaría MD [address] [place] [address] Social History Tobacco Use Types Packs/Day [...] - Historical Provider, - 08/14/2021 10:53 PM SPINNER HAND Treatment Intervention, OT Entered On: 08/17/2021 15:15 [...] abdominal pain Therapy Diagnosis, OT : Decreased [place] with ADLs secondary to generalized weakness Admission [...] GIANNA RHODES, OTR/L - 08/17/2021 15:10 EDT Photonics Engineer Goals, OT Grooming LTG Grid Goal #1 Activity : Grooming Assist : Independent, modified Date to Meet : 08/29/2021 EDT Goal Status : Initial goal Comment : Standing GIANNA RHODES OTR/L - 08/17/2021 15:10 EDT Dressing, Lower Body LTG Grid Goal #1 Activity : Dressing, Lower Body Assist : Independent, modified Equipment : Long Handled Charge Out Clerk, Sock aid, Long handled shoehorn Date to [...] the text rendition version of the form. [place] OT Charges OT Ther Activities Ea 15 Min : 1 GIANNA RHODES OTR/Az - 08/17/2021 15:10 EDT documented in this encounter Plan of Treatment Not on file documented as of this encounter Visit Diagnoses Not on filedocumented in this encounter
--- OUTSIDE RECORDS SUMMARY | 2025-01-04 22:30 | XMS_ITS | Encounter Summary ---
Author Organization [employer] ([place], [place], [place], [place]) Address [address] [place] [address] Care Team Providers Care Office Inspector Name Role Phone Unavailable Primary Care Provider Unavailabl e Encounter Details Date Type Department Care Team (Late st Contact Info) Description 08/15/2021 Transcribed Document [facility] [place] [facility] [place] [address] ProviderMaría MD [address] [place] [address] Social History Tobacco Use Types [...]
--- OUTSIDE RECORDS SUMMARY | 2025-01-04 22:30 | XMS_ITS | Encounter Summary ---
Author Organization [employer] ([place], [place], [place], [place]) Address [address] [place] [address] Care Team Providers Care Projects Manager Name Role Phone Unavailable Primary Care Provider Unavailabl e Encounter Details Date Type Department Care Team (Late st Contact Info) Description 08/14/2021 Transcribed Document [facility] [place] [facility] [place] [address] ProviderMaría MD [address] [place] [address] Social History Tobacco Use Types [...] - Historical ProviderMD - 08/14/2021 10:30 PM ROLL FORMING MACHINE SET UP OPERATOR Patient: CARIN LUCERO Age: 46 years Sex: [...] arrest last month and was admitted to [facility]. Patient CO2 was reportedly greater than 100. Patient was admitted and eventually had to have a trach and PEG placed. Patient was transferred from [place] and was admitted at [facility], recently just being discharged 3 days ago. [...] hours oral tablet, extended release: Tab, Oral, [id number], 0 Refill(s) gabapentin 800 mg oral tablet: [...] hours oral tablet, extended release , Oral, [id number] Zofran ODT 4 mg oral tablet, disintegrating [...] Radiology results Radiology Results (Last 48 hours) [id number] -- 08/14/2021 22:53 CT Abdomen Pelvis W [...]
--- OUTSIDE RECORDS SUMMARY | 2025-01-04 22:30 | XMS_ITS | Clinical Summary ---
Author Organization [employer] ([place], [place], [place], [place]) Address [address] [place] [address] Care Team Providers Care Benefits Sales Consultant Name Role Phone Unavailable Primary Care [...]
--- OUTSIDE RECORDS SUMMARY | 2025-01-04 22:30 | XMS_ITS | Encounter Summary ---
Author Organization [employer] ([place], [place], [place], [place]) Address [address] [place] [address] Care Team Providers Care Acetaldehyde Converter Operator Name Role Phone Unavailable Primary Care Provider Unavailabl e Encounter Details Date Type Department Care Team (Late st Contact Info) Description 09/30/[address] [facility] [place] [facility] [place] [address] ProviderMaría MD [address] [place] [address] Social History Tobacco Use Types Packs/Day [...] 16:27:00, rate 84, normal sinus rhythm, normal [place] & QRS intervals, EP Interp, No STEMI. [...] 17.6 % LOW Lymph # 1.25 x10(3)/uL [place] % 6.9 % [place] # 0.49 K/uL Eos % 0.4 % [...] 09/30/2021 19:00:00, TONJA REED MD. Prescriptions: Prescription Digestion Operator Pharmacy: doxycycline monohydrate 100 mg oral tablet (Prescribe): 1 Tab, Oral, BID, for 10 Day(s), 20 Tab, 0 Refill(s) Tussionex PennKinetic 10 mg-8 mg/5 mL oral suspension, extended release (Prescribe): 5 mL, Oral, Q12H, for 5 Day(s), 50 mL, 0 Refill(s) , [facility] [id number] . Patient was given the following educational [...]
--- OUTSIDE RECORDS SUMMARY | 2025-01-04 22:30 | XMS_ITS | Encounter Summary ---
Author Organization [employer] ([place], [place], [place], [place]) Address [address] [place] [address] Care Team Providers Care Edge Burnisher Name Role Phone Unavailable Primary Care Provider Unavailabl e Encounter Details Date Type Department Care Team (Late st Contact Info) Description 08/15/2021 Transcribed Document [facility] [place] Family Medicine [address] [place] [address] ProviderMaría MD [address] [place] [address] Social History Tobacco Use [...]
--- OUTSIDE RECORDS SUMMARY | 2025-01-04 22:30 | XMS_ITS | Encounter Summary ---
Author Organization [employer] ([place], [place], [place], [place]) Address [address] [place] [address] Care Team Providers Care Core Java Engineer Name Role Phone Unavailable Primary Care Provider Unavailabl e Encounter Details Date Type Department Care Team (Late st Contact Info) Description 08/17/2021 Transcribed Document [facility] [place] Family Medicine [facility] [place] [address] ProviderMaría MD [address] [place] [address] Social History Tobacco Use [...] 1975 Associated Diagnoses: None Author: Todd Davidson, ABALONE FISHERMAN-PHARMACIST Pain Management Pharmacy Consultation HPI: [id number] [...] respiratory arrest last month and admitted to [facility]. Patient CO2 was reportedly greater than 100. Patient was admitted and eventually had to have a trach and peg placed. Patient was tolerating po intake and was about to have peg tube removed next week. Relevant PMH: peg tube placement, recent respiratory arrest, obstructive sleep apnea, tobacco abuse, morbid obesity. Indication: pain life management teacher MD: Saleem Jimenes Allergies: metoclopramide Outpatient Pain [...]
--- OUTSIDE RECORDS SUMMARY | 2025-01-04 22:30 | XMS_ITS | Encounter Summary ---
Author Organization [employer] ([place], [place], [place], [place]) Address [address] [place] [address] Care Team Providers Care Ticket Taker Name Role Phone Unavailable Primary Care Provider Unavailabl e Encounter Details Date Type Department Care Team (Late st Contact Info) Description 08/15/2021 Transcribed Document [facility] [place] Family Medicine [address] [place] [address] ProviderMaría MD [address] [place] [address] Social History Tobacco Use Types [...] - Historical ProviderMD - 08/15/2021 12:39 AM OIL FIELD TECHNICIAN Meds to Bed Enrollment Entered On: 08/16/2021 10:36 EDT Performed On: 08/15/2021 0:39 EST by Jose Maria [place], Sand Slinger Operator Cert Lead Meds to Bed Enrollment Patient Enrollment Decision: : Yes/enroll in meds to bed program Jose Maria Freeman Sand Slinger Operator Cert Lead - 08/16/2021 10:36 EDT documented in this encounter Plan of Treatment Not on file documented as of this encounter Visit Diagnoses Not on filedocumented in this encounter
--- OUTSIDE RECORDS SUMMARY | 2025-01-04 22:30 | XMS_ITS | Encounter Summary ---
Author Organization [employer] ([place], [place], [place], [place]) Address [address] [place] [address] Care Team Providers Care Zone Manager Name Role Phone Unavailable Primary Care Provider Unavailabl e Encounter Details Date Type Department Care Team (Late st Contact Info) Description 08/15/2021 Transcribed Document [facility] [place] Family Medicine [facility] [place] [address] ProviderMaría MD [address] [place] [address] Social History Tobacco Use Types [...] CASANDRA METCALFYN, PT - 08/17/2021 15:26 EDT Residential Goals Mobility/Bed Mobility LTG PT Grid Goal [...] 08/17/2021 15:26 EDT Electronically signed by Tomeka [facility] Conversion Building Carpenter Cerner at 09/23/2022 8:15 AM CDT documented in this encounter Plan of Treatment Not on file documented as of this encounter Visit Diagnoses Not on filedocumented in this encounter
--- OUTSIDE RECORDS SUMMARY | 2025-01-04 22:30 | XMS_ITS | Encounter Summary ---
Author Organization [employer] ([place], [place], [place], [place]) Address [address] [place] [address] Care Team Providers Care Shooter'S Helper Name Role Phone Unavailable Primary Care Provider Unavailabl e Encounter Details Date Type Department Care Team (Late st Contact Info) Description 08/17/2021 Transcribed Document [facility] [place] [facility] [place] [address] ProviderMaría MD [address] [place] [address] Social History Tobacco Use Types [...] version of the form. Electronically signed by Tomeka Roman Conversion Gasoline Locomotive Crane Operator Cerner at 09/18/2022 9:32 AM CDT documented in this encounter Plan of Treatment Not on file documented as of this encounter Visit Diagnoses Not on filedocumented in this encounter
--- OUTSIDE RECORDS SUMMARY | 2025-01-04 22:30 | XMS_ITS | Encounter Summary ---
Author Organization [employer] ([place], [place], [place], [place]) Address [address] [place] [address] Care Team Providers Care Jewelry Engraver Name Role Phone Unavailable Primary Care Provider Unavailabl e Encounter Details Date Type Department Care Team (Late st Contact Info) Description 08/14/2021 Transcribed Document [facility] [place] Family [place] [address] [place] [address] ProviderMaría MD [address] [place] [address] Social History Tobacco Use Types [...] - Historical ProviderMD - 08/14/2021 9:36 PM MULTIPLE COIL WINDER ED Event Note Entered On: 08/14/2021 21:37 [...] 08/14/2021 21:36 EST Electronically signed by Tomeka [facility] Conversion Net Web Application Developer Cerner at 09/18/2022 9:34 AM CDT documented in this encounter Plan of Treatment Not on file documented as of this encounter Visit Diagnoses Not on filedocumented in this encounter
--- OUTSIDE RECORDS SUMMARY | 2025-01-04 22:30 | XMS_ITS | Encounter Summary ---
Author Organization [employer] ([place], [place], [place], [place]) Address [address] [place] [address] Care Team Providers Care Cosmetic Dentist Name Role Phone Unavailable Primary Care Provider Unavailabl e Encounter Details Date Type Department Care Team (Late st Contact Info) Description 08/19/2021 Transcribed Document [facility] [place] Family Medicine Formerly [facility] [place] [address] ProviderMaría MD [address] [place] [address] Social History Tobacco Use Types [...] Historical ProviderMD - 08/19/2021 3:18 PM CDT [facility] [place], [place] [id number] ZANDER LUCERO :1975 Visit Time:08/14/2021 Your Visit [...] [facility] Home Health Services: [facility] [phone] Medical Equipment for Home Use: Patient Aides (your medical equipment provider)[phone] Transportation: family Discharge Activity: Discharge Activity: Activity as tolerated Diet: Discharge Diet: Heart healthy diet Follow-Up Appointments Follow Up with EMY MUSA (REF)ZACHARY When 08/30/2021 11:30 AM EDT Comments Primary care follow up appointment has been made Bring discharge instructions with you Where: [address] [place] [address] THANH Philippe [address]- [phone] Medications What How Much When Instructions Next Dose carvedilol (carvedilol 12.5 mg oral tablet) 1 Tablet(s) Oral Two Times A Day Duration: 30 Day(s) Pickup at [facility] [place] [address] 9 doxycycline (doxycycline hyclate 100 mg oral tablet) 1 Tablet(s) Oral Two Times A Day Duration: 7 Day(s) Pickup at [place] [address] 9 guaiFENesin (Mucinex 600 mg oral tablet, extended release) 2 Tablet(s) Oral Two Times A Day Duration: 7 Day(s) Pickup at [facility] [place] [address] 9 metroNIDAZOLE (Flagyl 500 mg oral tablet) 1 Tablet(s) Oral Three Times A Day Duration: 6 Day(s) Pickup at [place] [address] 9 furosemide (furosemide 20 mg oral tablet) [...] Oral Two Times A Day Pharmacy Information [facility] [place]: [address] [facility] [address] [place], [place] [id number] [phone] Take your medications faithfully. Do NOT skip [...] including vitamins, herbs, eye drops, creams, and dgrf-rlc-rabtyma medicines. ??? Any problems you or family [...] tells you to take them. ? Taking pxjg-rmn-tyoaotm medicines, vitamins, herbs, and supplements. ??? Do [...] provider. Document Revised: 10/02/2020 Document Reviewed: 10/02/2020 [employer] Patient Education ?? 2020 [employer]. amoxicillin and clavulanate potassium (am OK i [...] may report side effects to FDA at 9-102-VTA-0872. What other drugs will affect amoxicillin and clavulanate potassium? Tell your doctor about all your other medicines, especially: ?? allopurinol; ?? probenecid; or ?? a blood thinner--warfarin, Coumadin, Jantoven. This list is not complete. Other drugs may affect amoxicillin and clavulanate potassium, including prescription and qfxc-xuk-ithxlfi medicines, vitamins, and herbal products. Not all [...] to ensure that the information provided by [employer]. ('[employer]') is accurate, up-to-date, and complete, but no guarantee is made to that effect. Drug information contained herein may be time sensitive. [employer] information has been compiled for use by healthcare practitioners and consumers in the [place] and therefore [employer] does not warrant that uses outside of the [place] are appropriate, unless specifically indicated otherwise. [employer] drug information does not endorse drugs, diagnose patients or recommend therapy. [employer] drug information is an informational resource designed [...] effective or appropriate for any given patient. [employer] does not assume any responsibility for any aspect of healthcare administered with the aid of information [employer] provides. The information contained herein is not intended to cover all possible uses, directions, precautions, warnings, drug interactions, allergic reactions, or adverse effects. If you have questions about the drugs you are taking, check with your doctor, nurse or pharmacist. Copyright 5290-0512 [employer]. Version: 12.. Revision Date: 07/29/2019. carvedilol (AVEL [...] may report side effects to FDA at 4-843-WVJ-5890. What other drugs will affect carvedilol? Sometimes it is not safe to use certain medications at the same time. Some drugs can affect your blood levels of other drugs you take, which may increase side effects or make the medications less effective. Other drugs may affect carvedilol, including prescription and kxvs-ttq-wxgvgqi medicines, vitamins, and herbal products. Tell your [...] to ensure that the information provided by [employer]. ('[employer]') is accurate, up-to-date, and complete, but no guarantee is made to that effect. Drug information contained herein may be time sensitive. [employer] information has been compiled for use by healthcare practitioners and consumers in the [place] and therefore [employer] does not warrant that uses outside of the [place] are appropriate, unless specifically indicated otherwise. [employer] drug information does not endorse drugs, diagnose patients or recommend therapy. [employer] drug information is an informational resource designed [...] effective or appropriate for any given patient. [employer] does not assume any responsibility for any aspect of healthcare administered with the aid of information [employer] provides. The information contained herein is not intended to cover all possible uses, directions, precautions, warnings, drug interactions, allergic reactions, or adverse effects. If you have questions about the drugs you are taking, check with your doctor, nurse or pharmacist. Copyright 1110-8537 [employer]. Version: 16.01. Revision Date: 09/27/2018. doxycycline (oral/injection) [...] or life-threatening conditions such as anthrax or [place] spotted fever. The benefit of treating a [...] may report side effects to FDA at 4-933-VZA-2549. What other drugs will affect doxycycline? Sometimes it is not safe to use certain medications at the same time. Some drugs can affect your blood levels of other drugs you take, which may increase side effects or make the medications less effective. Other drugs may affect doxycycline, including prescription and eqpd-tqw-mfxwwnr medicines, vitamins, and herbal products. Tell your [...] to ensure that the information provided by [employer]. ('[employer]') is accurate, up-to-date, and complete, but no guarantee is made to that effect. Drug information contained herein may be time sensitive. [employer] information has been compiled for use by healthcare practitioners and consumers in the [place] and therefore [employer] does not warrant that uses outside of the [place] are appropriate, unless specifically indicated otherwise. [employer] drug information does not endorse drugs, diagnose patients or recommend therapy. [employer] drug information is an informational resource designed [...] effective or appropriate for any given patient. [employer] does not assume any responsibility for any aspect of healthcare administered with the aid of information [employer] provides. The information contained herein is not intended to cover all possible uses, directions, precautions, warnings, drug interactions, allergic reactions, or adverse effects. If you have questions about the drugs you are taking, check with your doctor, nurse or pharmacist. Copyright 8001-3090 [employer]. Version: 21.04. Revision Date: 04/08/2020. metronidazole (oral/injection) [...] (more likely to occur while taking metronidazole supervisor long goods): ?? numbness, tingling, or burning pain in [...] may report side effects to FDA at 0-802-KKT-2841. What other drugs will affect metronidazole? Sometimes [...] may affect metronidazole. This includes prescription and xhdg-rwo-crhscft medicines, vitamins, and herbal products. Not all [...] to ensure that the information provided by [employer]. ('[employer]') is accurate, up-to-date, and complete, but no guarantee is made to that effect. Drug information contained herein may be time sensitive. [employer] information has been compiled for use by healthcare practitioners and consumers in the [place] and therefore [employer] does not warrant that uses outside of the [place] are appropriate, unless specifically indicated otherwise. [employer]'s drug information does not endorse drugs, diagnose patients or recommend therapy. [employer] drug information is an informational resource designed [...] effective or appropriate for any given patient. [employer] does not assume any responsibility for any aspect of healthcare administered with the aid of information [employer] provides. The information contained herein is not intended to cover all possible uses, directions, precautions, warnings, drug interactions, allergic reactions, or adverse effects. If you have questions about the drugs you are taking, check with your doctor, nurse or pharmacist. Copyright 2439-2424 [employer]. Version: 15.. Revision Date: 02/11/2021. guaifenesin (gwye [...] may report side effects to FDA at 8-521-IDC-1712. What other drugs will affect guaifenesin ? Avoid using this medicine with other drugs that cause drowsiness or slow your breathing (such as opioid medicine, a muscle relaxer, or medicine for anxiety or seizures). Ask a doctor or pharmacist before using any other medication, including prescription and wapj-oed-tikrtxs medicines, vitamins, and herbal products. Not all [...] to ensure that the information provided by [employer]. ('[employer]') is accurate, up-to-date, and complete, but no guarantee is made to that effect. Drug information contained herein may be time sensitive. [employer] information has been compiled for use by healthcare practitioners and consumers in the [place] and therefore [employer] does not warrant that uses outside of the [place] are appropriate, unless specifically indicated otherwise. [employer] drug information does not endorse drugs, diagnose patients or recommend therapy. [employer] drug information is an informational resource designed [...] effective or appropriate for any given patient. [facility] does not assume any responsibility for any aspect of healthcare administered with the aid of information [facility] provides. The information contained herein is not intended to cover all possible uses, directions, precautions, warnings, drug interactions, allergic reactions, or adverse effects. If you have questions about the drugs you are taking, check with your doctor, nurse or pharmacist. Copyright 5381-3226 [employer]. Version: 7.01. Revision Date: 07/30/2018. Emergency Awareness [...] Assistance with quitting is available by contacting 0-384-MHFM-NOW. This is a free resource providing counseling, [...] and 14.9 ) ANC #: 3 K/uL [place] Percent Man: 5 % -- Normal range between ( 4 and 5 ) Neutrophil Percent Man: 58 % -- Normal range between ( 50 and 65 ) Eos Percent Man: 6 % -- Normal range between ( 0 and 3 ) Anisocytosis: 1+ Platelet Ct Estimate: Adequate [place] Percent Man: 2 % -- Normal range [...] range between ( 0.0 and 7.0 ) Merrick #: 0.60 K/uL -- Normal range between ( 0.16 and 1.00 ) Eos #: 0.20 x10(3)/uL -- Normal range between ( 0.00 and 0.80 ) Merrick %: 9.7 % -- Normal range between [...] ) Urine Bilirubin Dipstick: Negative Urine Specific [place]: *1.028 -- Normal range between ( 1.005 [...] was given the opportunity to ask questions. Patient/Reroller Hand Name: Patient/Reroller Hand Signature: Relationship to Patient: Electronically signed by Tomeka, [facility] Conversion Supervisor Aircraft Maintenance Avery at 09/18/2022 9:25 AM CDT documented in this encounter Plan of Treatment Not on file documented as of this encounter Visit Diagnoses Not on filedocumented in this encounter
--- OUTSIDE RECORDS SUMMARY | 2025-01-04 22:30 | XMS_ITS | Encounter Summary ---
Author Organization [employer] ([place], [place], [place], [place]) Address [address] [place] [address] Care Team Providers Care Sales Force Developer Name Role Phone Unavailable Primary Care Provider Unavailabl e Encounter Details Date Type Department Care Team (Late st Contact Info) Description 08/15/2021 Transcribed Document [facility] [place] [facility] [place] [address] ProviderMaría MD [address] [place] [address] Social History Tobacco Use Types [...] ER and was managed there. Rapid Response Sales Force Developer #1 : EVIE ONEILL RN EVIE ONEILL RN - 08/15/2021 9:02 EDT Electronically signed by Tomeka [facility] Conversion Construction Operations Manager Cerner at 09/18/2022 9:35 AM CDT documented in this encounter Plan of Treatment Not on file documented as of this encounter Visit Diagnoses Not on filedocumented in this encounter
--- OUTSIDE RECORDS SUMMARY | 2025-01-04 22:30 | XMS_ITS | Encounter Summary ---
Author Organization [employer] ([place], [place], [place], [place]) Address [address] [place] [address] Care Team Providers Care Data Coder Operator Name Role Phone Unavailable Primary Care Provider Unavailabl e Encounter Details Date Type Department Care Team (Late st Contact Info) Description 08/19/2021 Transcribed Document [facility] [place] [facility] [place] [address] ProviderMaría MD [address] [place] [address] Social History Tobacco Use Types [...] including vitamins, herbs, eye drops, creams, and usxd-gch-jboxfef medicines. ??? Any problems you or family [...] tells you to take them. ? Taking jkbb-qmg-icwnfie medicines, vitamins, herbs, and supplements. ??? Do [...] provider. Document Revised: 10/02/2020 Document Reviewed: 10/02/2020 [employer] Patient Education ? 2020 [employer] documented in this encounter Plan of Treatment Not on file documented as of this encounter Visit Diagnoses Not on filedocumented in this encounter
--- OUTSIDE RECORDS SUMMARY | 2025-01-04 22:30 | XMS_ITS | Encounter Summary ---
Author Organization [employer] ([place], [place], [place], [place]) Address [address] [place] [address] Care Team Providers Care Shelter Advocate Name Role Phone Unavailable Primary Care Provider Unavailabl e Encounter Details Date Type Department Care Team (Late st Contact Info) Description 09/30/2021 Transcribed Document [facility] [place] [address] ProviderMaría MD [address] [place] [address] Social History Tobacco Use Types [...] Communication Barrier : None Primary Language : Sierra Leonean Any Spiritual/Cultural Needs or Requests : No [...]
--- OUTSIDE RECORDS SUMMARY | 2025-01-04 22:30 | XMS_ITS | Encounter Summary ---
Author Organization [employer] ([place], [place], [place], [place]) Address [address] [place] [address] Care Team Providers Care Welder Fitter Arc Name Role Phone Unavailable Primary Care Provider Unavailabl e Encounter Details Date Type Department Care Team (Late st Contact Info) Description 08/15/2021 Transcribed Document [facility] [place] [address] [place] [address] ProviderMaría MD [address] [place] [id number] Social History Tobacco Use Types Packs/Day Years [...] On: 08/15/2021 7:00 EDT by Sandy Owens [facility] Phone Call for Consults Consult Phone Call/Page Attempt : First call Consult Reason : Infected peg tube Physician Requested for Consult : FARIBA LINARES MD-[facility] Provider Service Notified Name : Gastroenterology Date and Time Call Returned : 08/15/2021 8:19 EDT Sandy Owens [facility] - 08/15/2021 8:19 EDT documented in this encounter Plan of Treatment Not on file documented as of this encounter Visit Diagnoses Not on filedocumented in this encounter
--- OUTSIDE RECORDS SUMMARY | 2025-01-04 22:30 | XMS_ITS | Encounter Summary ---
Author Organization [employer] ([place], [place], [place], [place]) Address [address] [place] [address] Care Team Providers Care Vat Tender Name Role Phone Unavailable Primary Care Provider Unavailabl e Encounter Details Date Type Department Care Team (Late st Contact Info) Description 08/23/2021 Transcribed Document [facility] [place] Family Medicine [facility] [place] [address] ProviderMaría MD [address] [place] [address] Social History Tobacco Use Types [...] On: 08/23/2021 6:36 EDT by Zara Donald, Plant Maintenance Worker Primary Insurance Authorization Authorization and Policy Numbers : Insurance 1 Health Plan: [facility] Policy Number: [id number] Authorization Number: Insurance Primary Name : [facility] Policy Number: [id number] Authorization Status-Primary : Approved Auth/Referral Contact Name-Primary : DC Reference Number-Primary : [id number] Authorization Number-Primary : [id number] Number of Days Authorized-Primary : 9 Day(s) [...] due 08/24/21. -Efrem Gillette RN. (Zara Donald, Plant Maintenance Worker 08/19/2021 11:33) Comment 2: c/s review for inpt faxed wo to [facility] via [employer]. (VASYL HIGGINS, EWA-Auto Bench Mechanic 08/19/2021 09:00) Comment 3: inpt admit approved per fax from [facility] 08/16/21 auth# [id number] NRD 08-19-21 (EBEN HURTADO, Ball Truing Machine Operator 08/16/2021 12:52) Comment 4: Clinicals submitted on [facility] website for IP approval (ROBERTO CARLOS CISNEROS RN 08/15/2021 12:09) Zara Donald, Plant Maintenance Worker - 08/23/2021 6:36 EDT Electronically signed by Roman Eckert Conversion Blister Packing Machine Tender Cerner at 09/18/2022 9:25 AM CDT documented in this encounter Plan of Treatment Not on file documented as of this encounter Visit Diagnoses Not on filedocumented in this encounter
--- OUTSIDE RECORDS SUMMARY | 2025-01-04 22:30 | XMS_ITS | Encounter Summary ---
Author Organization [employer] ([place], [place], [place], [place]) Address [address] [place] [address] Care Team Providers Care Sound Engineer Name Role Phone Unavailable Primary Care Provider Unavailabl e Encounter Details Date Type Department Care Team (Late st Contact Info) Description 08/15/2021 Transcribed Document [facility] [place] [facility] [place] [address] ProviderMaría MD [address] [place] [address] Social History Tobacco Use Types [...] 0.9% 250 mL 1,500 mg, IV Piggyback, [id number] Continuous: (1) NaCl 0.9% 1,000 mL 1,000 [...] (AUG 15 01:00) Electronically signed by Tomeka, [facility] Conversion Data Communications Engineer Cerner at 09/18/2022 9:00 AM CDT documented in this encounter Plan of Treatment Not on file documented as of this encounter Visit Diagnoses Not on filedocumented in this encounter
--- OUTSIDE RECORDS SUMMARY | 2025-01-04 22:30 | XMS_ITS | Clinical Summary ---
Author Organization [facility] Address [address] [place] [address] Care Team Providers Care Medical Assistant Supervisor Name Role Phone Mario Sher MD Primary Care Provider [phone] Allergies Active Allergy Reactions Criticality Noted Date Comments Amoxicillin Rash Low 09/16/2024 Rash blisters Clindamycin/Lincomycin Rash Low 09/16/2024 Rash blisters Doxycycline Rash Low 09/16/2024 Rash blisters Morphine Hives 09/12/2024 Headache Nitrofurantoin Rash Low 09/16/2024 Rash blisters Sulfa Antibiotics Rash Low 09/16/2024 Rash blisters Social History Tobacco Use Types Packs/Day Years Used Date Smoking Tobacco: Never Assessed Abuse Screen Answer Date Recorded Feels Unsafe at Home or Work/School no 09/16/2024 Feels Threatened by Someone no 09/03 Does Anyone Try to Keep You From Having Contact with Others or Doing Things Outside Your Home? no 09/16/2024 Physical Signs of Abuse Present no 09/16/2024 Comments No Sex and Gender Information Value Date Recorded Sex Assigned at Not on file Legal Sex Female 1:32 PM EDT Gender Identity Not on file Sexual Orientation Not on file Last Filed Vital Signs Vital Sign Reading Time Taken Comments Blood Pressure 131/71 09/16/2024 3:30 PM EDT Pulse 90 09/16/2024 4:30 PM EDT Temperature 37.2 C (98.9 F) 09/16/2024 12:16 PM EDT Respiratory Rate 16 09/16/2024 12:16 PM EDT Oxygen Saturation 95% 09/16/2024 4:30 PM EDT Inhaled Oxygen Concentration - - Weight 168 kg (370 lb) 09/16/2024 12:16 PM EDT Height 154.9 cm (5' 1 ) 09/16/2024 12:16 PM EDT Body Mass Index 69.91 09/16/2024 12:16 PM EDT Plan of Treatment Health Maintenance Due Date Last Done Comments ANNUAL PHYSICAL 1975 Annual Gynecologic Pelvic an d Breast Exam 1975 HEPATITIS C SCREENING 1975 MAMMOGRAM 2014 COLOGUARD 2019 COLON CANCER SCREENING 5 YEA R SIGMOIDOSCOPY 2019 COLONOSCOPY [address] CANCER SCREENING 2019 CT COLONOGRAPHY 2019 FECAL OCCULT BLOOD TEST 2019 FIT Testing (1 year) 2019 Pneumococcal Vaccine 50+ (2 of 2 - PCV) 01/12/2024 06/15/2021 ZOSTER VACCINE (1 of 2) 01/12/2024 COVID-19 Vaccine (3 - season) 02/04/202401/2021, 09/04/2020 INFLUENZA VACCINE 03/05/2025 06/15/2021, , 02/01/2017 TDAP/TD VACCINES (2 - Td or Tdap) 08/18/[address] [place] [id number] [place] Care Teams Medical Assistant Supervisor Relationship Specialty Start Date End Date Mario Sher MD [facility] [address] [facility] [place] [address] PCP - General Family Medicine 09/16/24
--- OUTSIDE RECORDS SUMMARY | 2025-01-04 22:30 | XMS_ITS | Referral Summary ---
Author Organization [employer] ([place], [place], [place], [place]) Address [address] [place] [address] Care Team Providers Care Mica Laminating Machine Feeder Name Role Phone Unavailable Primary Care [...]
--- OUTSIDE RECORDS SUMMARY | 2025-01-04 22:30 | XMS_ITS | Encounter Summary ---
Author Organization [employer] ([place], [place], [place], [place]) Address [address] [place] [address] Care Team Providers Care Mft Name Role Phone Unavailable Primary Care Provider Unavailabl e Encounter Details Date Type Department Care Team (Late st Contact Info) Description 08/14/2021 Transcribed Document [facility] [place] Medicine [facility] [place] [address] ProviderMaría MD [address] [place] [address] Social History Tobacco Use Types [...] - Historical ProviderMD - 08/14/2021 11:49 PM SHIP'S MASTER Pain Assessment Entered On: 08/15/2021 22:58 EDT Performed On: 08/15/2021 23:06 EDT by Venkat Chow Lpn Intervention Information: oxyCODONE Performed by Venkat Chow Lpn on 08/15/2021 22:06:00 EDT oxyCODONE,5mg Oral,Pain (Moderate 4-6) Pain Assessment Pain Assessment : Follow-up assessment Pain Scale Goal : 4 Venkat Chow Lpn - 08/15/2021 22:58 EDT Electronically signed by Tomeka [facility] Conversion Die Forger Cerner at 09/18/2022 8:56 AM CDT documented in this encounter Plan of Treatment Not on file documented as of this encounter Visit Diagnoses Not on filedocumented in this encounter
--- OUTSIDE RECORDS SUMMARY | 2025-01-04 22:30 | XMS_ITS | Encounter Summary ---
Author Organization [employer] ([place], [place], [place], [place]) Address [address] [place] [address] Care Team Providers Care Oil Well Directional Surveyor Name Role Phone Unavailable Primary Care Provider Unavailabl e Encounter Details Date Type Department Care Team (Late st Contact Info) Description 08/19/2021 Transcribed Document [facility] [place] Family Medicine [facility] [place] [address] ProviderMaría MD [address] [place] [address] Social History Tobacco Use Types [...] 1974 Associated Diagnoses: None Author: Todd Davidson, PROCESS DEVELOPMENT CHEMIST-PHARMACIST Pain Management Pharmacy Consultation HPI: [id number] [...] last month and admitted to [facility]. Patient CO2 was reportedly greater than 100. Patient was admitted and eventually had to have a trach and peg placed. Patient was tolerating po intake and was about to have peg tube removed next week. Relevant PMH: peg tube placement, recent respiratory arrest, obstructive sleep apnea, tobacco abuse, morbid obesity. Indication: pain district fire management officer MD: Saleem Jimenes Allergies: metoclopramide Outpatient Pain [...] for this consult, Hany BaumannD, MPH PGY1 Benefits Coordinator Pager: [phone] documented in this encounter Plan of Treatment Not on file documented as of this encounter Visit Diagnoses Not on filedocumented in this encounter
--- OUTSIDE RECORDS SUMMARY | 2025-01-04 22:30 | XMS_ITS | Encounter Summary ---
Author Organization [email or web address] ([place], [place], [place], [place]) Address [address] [place] [address] Care Team Providers Care Receiving Supervisor Name Role Phone Unavailable Primary Care Provider Unavailabl e Encounter Details Date Type Department Care Team (Late st Contact Info) Description 09/30/2021 Transcribed Document [facility] [place] Family Medicine [facility] [place] [address] ProviderMaría MD [address] [place] [address] Social History Tobacco Use [...] Historical ProviderMD - 09/30/2021 8:30 PM CDT documented in this encounter Plan of Treatment Not on file documented as of this encounter Visit Diagnoses Not on filedocumented in this encounter
--- OUTSIDE RECORDS SUMMARY | 2025-01-04 22:30 | XMS_ITS | Encounter Summary ---
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 Pt busy [...]
--- OUTSIDE RECORDS SUMMARY | 2025-01-04 22:30 | XMS_ITS | Encounter Summary ---
Author Organization [employer] ([place], [place], [place], [place]) Address [address] [place] [address] Care Team Providers Care Ancillary Services Manager Therapy Name Role Phone Unavailable Primary Care Provider Unavailabl e Encounter Details Date Type Department Care Team (Late st Contact Info) Description 08/14/2021 Transcribed Document [facility] [place] Family Medicine [facility] [place] [address] ProviderMaría MD [address] [place] [address] Social History Tobacco Use Types [...] - Historical ProviderMD - 08/14/2021 6:43 PM SHOT HOLE DRILLER ED Assessment Entered On: 08/14/2021 21:48 EST Performed On: 08/14/2021 18:45 EST by LORE LUDWIG RN ED Quick Look Assessment Level of Consciousness : Alert, Awake Affect/Behavior : Anxious Orientation : Oriented x 4 Skin Temperature : Warm Skin Description : Normal for ethnicity LOER LUDWIG RN - 08/14/2021 21:41 EST ED General-Functional Assess Information Obtained From : Patient Communication Barrier : None Primary Language : Chilean Any Spiritual/Cultural Needs or Requests : No [...] LORE BELCHER RN - 08/14/2021 21:41 EST documented in this encounter Plan of Treatment Not on file documented as of this encounter Visit Diagnoses Not on filedocumented in this encounter
--- OUTSIDE RECORDS SUMMARY | 2025-01-04 22:30 | XMS_ITS | Encounter Summary ---
Author Organization [employer] ([place], [place], [place], [place]) Address [address] [place] [address] Care Team Providers Care Institution Director Name Role Phone Unavailable Primary Care Provider Unavailabl e Encounter Details Date Type Department Care Team (Late st Contact Info) Description 08/14/2021 Transcribed Document [facility] [place] [facility] [place] [address] ProviderMaría MD [address] [place] [address] Social History Tobacco Use Types Packs/Day [...] - Historical Provider, - 08/14/2021 11:19 PM PRINCIPAL CLERK Evaluation, Physical Therapy Entered On: 08/15/2021 10:47 [...] 9:50 EDT Treatment Time : 12 Minute(s) SNOY REYNA, PT - 08/15/2021 10:36 EDT History [...] SONY REYNA, PT - 08/15/2021 10:36 EDT Casting Room Helper Goals Mobility/Bed Mobility LTG PT Grid Goal [...] SONY REYNA, PT - 08/15/2021 10:36 EDT [place] PT Charges PT Eval Moderate Complexity : 1 SONY REYNA, PT - 08/15/2021 10:36 EDT documented in this encounter Plan of Treatment Not on file documented as of this encounter Visit Diagnoses Not on filedocumented in this encounter
--- OUTSIDE RECORDS SUMMARY | 2025-01-04 22:30 | XMS_ITS | Encounter Summary ---
Author Organization [employer] ([place], [place], [place], [place]) Address [address] [place] [address] Care Team Providers Care Side Guider Name Role Phone Unavailable Primary Care Provider Unavailabl e Encounter Details Date Type Department Care Team (Late st Contact Info) Description 08/14/2021 Transcribed Document [facility] [place] Family Medicine [facility] [place] [address] ProviderMaría MD [address] [place] [address] Social History Tobacco Use Types [...] - Historical ProviderMD - 08/14/2021 7:11 PM UNDERCOVER AGENT Patient: CARIN LUCERO Age: 46 years [...] last month ago and [facility] Says she has sleep apnea and her CO2 was greater than 100. She was admitted and have a trach and PEG placed. She says she was transferred to [facility] in [facility] and was just discharged 3 days [...] hours oral tablet, extended release: Tab, Oral, [id number], 0 Refill(s) gabapentin 800 mg oral tablet: [...] EST Height Source Stated Height Entry Format [place] Height/Length, CANADIAN (ft) 5 ft Height/Length CANADIAN 1 Inch CLINICALHEIGHT 154.94 cm [place] Body Weight 47.45 kg Weight Source, ED Critical estimated dosing weight Weight Entry Format [place] Weight Nigerian lb 305 lb CLINICALWEIGHT 138.64 kg Body [...] nurses' notes, emergency department records, prior records. senior materials analyst: Time 08/14/2021 19:16:00, Rate 112, Sinus Tachycardia. [...] 12.9 % LOW Lymph # 1.24 x10(3)/uL Campbell % 9.3 % HI Campbell # 0.89 K/uL Eos % 1.4 % Eos # 0.13 x10(3)/uL Baso % 0.3 % Baso # 0.03 x10(3)/uL Slide Review No IG# 0.12 x10(3)/uL HI IG% 1.30 % HI PT 9.7 Second(s) INR 0.9 PTT 27.5 Second(s) Procalcitonin <0.25 ng/mL Influenza A Negative Influenza B Negative SARS-CoV-2 (COVID19 PCR) Negative . Radiology results: Radiology Results (Last 48 hours) [id number] -- 08/14/2021 22:53 CT Abdomen Pelvis W [...] LOS SANTOS, DO-INT. Electronically signed by Tomeka [facility] Conversion Reservations Clerk Cerner at 09/18/2022 9:34 AM CDT documented in this encounter Plan of Treatment Not on file documented as of this encounter Visit Diagnoses Not on filedocumented in this encounter
--- OUTSIDE RECORDS SUMMARY | 2025-01-04 22:30 | XMS_ITS | Encounter Summary ---
Author Organization [employer] ([place], [place], [place], [place]) Address [address] [place] [address] Care Team Providers Care Tree Tapping Laborer Name Role Phone Unavailable Primary Care Provider Unavailabl e Encounter Details Date Type Department Care Team (Late st Contact Info) Description 08/19/2021 Transcribed Document [facility] Radiology 1 [place] [address] Saleem Jimenes MD [address] [place] [address] Social History Tobacco Use Types Packs/Day [...] mg, 12 mL, 124 mL/Hr, IV Piggyback, [id number] Dulcolax Laxative: 5 mg, Oral, Daily, PRN: Constipation DuoNeb 0.5 mg-2.5 mg/3 mL inhalation solution: 3 mL, Nebulized Inhalation, RT_Q6H, PRN: Shortness of Breath Flagyl: 500 mg, Oral, TID Geodon: 40 mg, Oral, BID HYDROmorphone: 2 mg, Oral, Q4H, PRN: Breakthrough Pain Imitrex: 100 mg, Oral, Daily, PRN: Migraine Headache LaMICtal: 100 mg, Oral, Daily Lovenox: 40 mg, SubCutaneous, [id number] MiraLax: 17 Gram, Oral, Daily, PRN: Constipation [...] mL 600 mg 12 mL, IV Piggyback, W54EReu enoxaparin 40 mg/0.4 mL inj 40 mg 0.4 mL, SubCutaneous, N82BIpl famotidine 20 mg tab 20 mg 1 [...] History of obstructive sleep apnea / IMO [id number] / Confirmed Suicide risk / IMO 25518 / Confirmed, Active Problems (2) History of [...] 29.4 \ Radiology Results (Last 48 hours) [id number] -- 08/14/2021 22:53 CR Chest 1 Vw [...]
--- OUTSIDE RECORDS SUMMARY | 2025-01-04 22:30 | XMS_ITS | Encounter Summary ---
Author Organization [employer] ([place], [place], [place], [place]) Address [address] [place] [address] Care Team Providers Care Engineering Inspection Assistant Name Role Phone Unavailable Primary Care Provider Unavailabl e Encounter Details Date Type Department Care Team (Late st Contact Info) Description 08/14/2021 Transcribed Document [facility] [place] [facility] [place] [address] ProviderMaría MD [facility] [place] [address] Social History Tobacco Use Types [...] - Historical Provider, - 08/14/2021 11:00 PM METAL CUT OFF SAW TENDER Admission History, Adult Entered On: 08/15/2021 3:13 [...] Meredith Emergency Contact #1 Phone Number : [phone] Emergency Contact #1 Relationship : Mother Emergency [...] Obtained From : Patient Primary Language : Greenlandic Communication Barrier : None Shredder Picker Needed : No Venkat Chow Lpn - [...] Scale Risk Level : 25-45 Medium Risk [place] Fall Interventions : Adequate lighting, Bed in [...] Scale Calc Temp : 1 Venkat Chow [facility] - 08/15/2021 1:53 EST Health Histories [...] Source : Estimated Height Entry Format : [place] Height, Feet : 5 ft(Converted to: 152 cm, 60 Inch) Height, Inches : 1 Inch(Converted to: 0 ft 1 Inch, 2.54 cm) Clinical Height : 154.94 cm Weight Source : Bed scale Weight Entry Format : [place] Clinical Dosing Weight : 138.64 kg Weight, Pounds : 305 lb Body Surface Area (BSA) : 2.26 m2 Body Mass Index : 57.8 kg/m2 (>HHI) [place] Body Weight : 47 kg Venkat Chow [facility] 08/15/2021 1:53 EST Infectious Disease History Does [...] a COVID-19 Vaccine? : No Venkat Chow Entrepreneur - 08/15/2021 1:53 EST Infectious Disease Risk [...] at risk Venkat ChowMariano 08/15/2021 1:53 EST [place] Suicide Severity Rating Scale (C-SSRS) CSSRS Past [...] Venkat Chow Lpn - 08/15/2021 1:53 EST Electronically signed by Roman Eckert Conversion Marketing Operations Specialist Cerner at 09/18/2022 9:00 AM CDT documented in this encounter Plan of Treatment Not on file documented as of this encounter Visit Diagnoses Not on filedocumented in this encounter
--- OUTSIDE RECORDS SUMMARY | 2025-01-04 22:30 | XMS_ITS | Encounter Summary ---
Author Organization [employer] ([place], [place], [place], [place]) Address [address] [place] [address] Care Team Providers Care M48/M60 Tank Driver Name Role Phone Unavailable Primary Care Provider Unavailabl e Encounter Details Date Type Department Care Team (Late st Contact Info) Description 08/19/2021 Transcribed Document [facility] Radiology 1 [place] [address] Saleem Jimenes MD [address] [place] [address] Social History Tobacco Use Types Packs/Day [...] 08/19/2021 16:06 Primary Care Provider EMY MUSA (REF)MD-[facility] Discharge Diagnosis: Anterior abdominal wall cellulitis possible [...] arrest last month and was admitted to [facility]. Patient CO2 was reportedly greater than 100. Patient was admitted and eventually had to have a trach and PEG placed. Patient was transferred from [place] and was admitted at [facility], recently just being discharged 3 days [...] Home Discharge Follow Up EMY MUSA (REF), -[facility] - 11:30 AM Discharge Medications (18) Active [...]
--- OUTSIDE RECORDS SUMMARY | 2025-01-04 22:30 | XMS_ITS | Encounter Summary ---
Author Organization [employer] ([place], [place], [place], [place]) Address [address] [place] [address] Care Team Providers Care Behavioral Technician Name Role Phone Unavailable Primary Care Provider Unavailabl e Encounter Details Date Type Department Care Team (Late st Contact Info) Description 09/30/2021 Transcribed Document [facility] [place] Family Medicine [facility] [place] [address] ProviderMaría MD [address] [place] [address] Social History Tobacco Use Types [...] : 2 - Emergent Tracking Group : [facility] ED Leo Belle RN - 09/30/2021 16:24 EDT Mode of Arrival : Stretcher Transported to ED by : Ambulance/ALS EMS Service : [facility] To Room Via : Stretcher Accompanied [...] Problems(Active) History of obstructive sleep apnea (IMO :[id number] ) Name of Problem: History of obstructive sleep apnea ; Recorder: SYSTEM, SYSTEM; Confirmation: Confirmed ; Classification: Medical ; Code: 80349782 ; Last Updated: 08/15/2021 3:13 EDT ; Life Cycle Date: 08/15/2021 ; Life Cycle Status: Active ; Vocabulary: IMO Suicide risk (IMO :00934 ) Name of Problem: Suicide risk ; Recorder: SYSTEM, SYSTEM; Confirmation: Confirmed ; Classification: Medical ; Code: 13754 ; Last Updated: 08/15/2021 3:13 EDT ; Life Cycle Date: 08/15/2021 ; Life Cycle Status: Active ; Vocabulary: IMO Diagnoses(Active) Shortness of breath Date: 09/30/2021 ; Diagnosis Type: Reason For Visit ; Confirmation: Complaint of ; Clinical Dx: Shortness of breath ; Classification: Medical ; Clinical Service: Non-Specified ; Code: PNED ; Probability: 0 ; Diagnosis Code: [id number] ED Height and Weight Height Source : Stated Height Entry Format : [place] Height, Feet : 5 ft(Converted to: 152 cm, 60 Inch) Height, Inches : 1 Inch(Converted to: 0 ft 1 Inch, 2.54 cm) Clinical Height : 154.94 cm Weight Source, ED : Critical estimated dosing weight Weight Entry Format : [place] Weight, Pounds : 330 lb Clinical Dosing Weight : 150 kg Body Surface Area (BSA) : 2.34 m2 Body Mass Index : 62.5 kg/m2 (>HHI) [place] Body Weight (IBW) : 47.45 kg Leo Belle RN - 09/30/2021 16:24 EDT documented in this encounter Plan of Treatment Not on file documented as of this encounter Visit Diagnoses Not on filedocumented in this encounter
--- OUTSIDE RECORDS SUMMARY | 2025-01-04 22:30 | XMS_ITS | Encounter Summary ---
Author Organization [employer] ([place], [place], [place], [place]) Address [address] [place] [address] Care Team Providers Care Scrubber Machine Tender Name Role Phone Unavailable Primary Care Provider Unavailabl e Encounter Details Date Type Department Care Team (Late st Contact Info) Description 08/19/2021 Transcribed Document [facility] [place] Family Medicine [facility] [place] [address] ProviderMaría MD [address] [place] [address] Social History Tobacco Use Types [...] On: 08/19/2021 13:01 EDT by Anum Christopher, FISH PROCESSING SUPERVISOR Patient Resource Center Provider Status : EST Other Established Provider Name : Beny Chris Patient Phone Number : [phone] Patient Insurance Type : Medicaid (ex. [employer], [...] at ED : Other Primary Language : Togolese Patient Resource Center Comment : Patient needed primary care follow up appointment. Primary care follow up appointment has been made. Follow Up Needed : Anum Moscoso, FISH PROCESSING SUPERVISOR - 08/19/2021 13:01 EDT Electronically signed by Roman Eckert Conversion Ultrasound Applications Specialist Cerner at 09/18/2022 9:35 AM CDT documented in this encounter Plan of Treatment Not on file documented as of this encounter Visit Diagnoses Not on filedocumented in this encounter
--- OUTSIDE RECORDS SUMMARY | 2025-01-04 22:30 | XMS_ITS | Encounter Summary ---
Author Organization [employer] ([place], [place], [place], [place]) Address [address] [place] [address] Care Team Providers Care Back Roll Lathe Operator Name Role Phone Unavailable Primary Care Provider Unavailabl e Encounter Details Date Type Department Care Team (Late st Contact Info) Description 08/15/2021 Transcribed Document [facility] [place] [facility] [place] [address] ProviderMaría MD [address] [place] [address] Social History Tobacco Use Types [...] : Insurance 1 Health Plan: [facility] Policy Number: [id number] Authorization Number: Insurance Primary Name : [facility] Policy Number: [id number] Authorization Status-Primary : Awaiting callback Reference Number-Primary : [id number] Authorized Service Begin Date-Primary : 08/14/2021 EST Authorization Comments-Primary : Clinicals submitted on [facility] website for IP approval Historical Authorization Comments-Primary : No Authorization Comments Found ROBERTO CARLOS CISNEROS RN - 08/15/2021 12:09 EDT Electronically signed by Tomeka [facility] Conversion Drill Rig Operator Helper Cerner at 09/18/2022 8:57 AM CDT documented in this encounter Plan of Treatment Not on file documented as of this encounter Visit Diagnoses Not on filedocumented in this encounter
--- OUTSIDE RECORDS SUMMARY | 2025-01-04 22:30 | XMS_ITS | Encounter Summary ---
Author Organization [employer] ([place], [place], [place], [place]) Address [address] [place] [address] Care Team Providers Care Stator Connector Name Role Phone Unavailable Primary Care Provider Unavailabl e Encounter Details Date Type Department Care Team (Late st Contact Info) Description 08/15/2021 Transcribed Document [facility] Radiology 1 [place] [address] Saleem Jimenes MD [address] [place] [address] Social History Tobacco Use Types Packs/Day [...] mL: 1,500 mg, 250 mL/Hr, IV Piggyback, [id number] Incomplete Depakote ER 500 mg oral tablet, extended release: 1 Tab, Oral, Daily SUMAtriptan 100 mg oral tablet: 100 mg, Oral, Daily Viibryd 40 mg oral tablet: 40 mg, Oral, Daily Wellbutrin XL 300 mg/24 hours oral tablet, extended release: 1 Tab, Oral, [id number] clonazePAM 0.5 mg oral tablet: 0.5 Tab, [...] hours oral tablet, extended release: Tab, Oral, U19YBpm, 0 Refill(s) acetaminophen-HYDROcodone 325 mg-5 mg oral [...] 0.9% 250 mL 1,500 mg, IV Piggyback, A65RVly Continuous: (1) NaCl 0.9% 1,000 mL 1,000 [...] History of obstructive sleep apnea / IMO [id number] / Confirmed Suicide risk / IMO 01625 / Confirmed, Active Problems (2) History of [...] 32.8 \ Radiology Results (Last 48 hours) [id number] -- 08/14/2021 22:53 CR Chest 1 Vw [...] 250 mL 1,500 mg, IV Piggyback, Inj, H64IOsm, infuse over 60 Minute(s), Start 08/15/21 11:00:00 EDT, 250 mL/Hr, Indication: Sepsis DEUARD DE LOS SANTOS DO-INT Discontinued Medications: melatonin [...]
--- OUTSIDE RECORDS SUMMARY | 2025-01-04 22:30 | XMS_ITS | Clinical Summary ---
Author Organization [facility] Address [address] [place] [address] Phone Care Team Providers Care Foreign Food Specialty Cook Name Role Phone Unavailable Primary Care [...]
--- OUTSIDE RECORDS SUMMARY | 2025-01-04 22:30 | XMS_ITS | Encounter Summary ---
Author Organization [employer] ([place], [place], [place], [place]) Address [address] [place] [address] Care Team Providers Care Golf Club Repairer Name Role Phone Unavailable Primary Care Provider Unavailabl e Encounter Details Date Type Department Care Team (Late st Contact Info) Description 08/19/2021 Transcribed Document 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 GI plans for removal today. Pt busy [...]
--- OUTSIDE RECORDS SUMMARY | 2025-01-04 22:30 | XMS_ITS | Encounter Summary ---
Author Organization [employer] ([place], [place], [place], [place]) Address [address] [place] [address] Care Team Providers Care Forest Engineer Name Role Phone Unavailable Primary Care Provider Unavailabl e Encounter Details Date Type Department Care Team (Late st Contact Info) Description 08/17/2021 Transcribed Document [facility] Radiology [address] [place] [address] Saleem Jimenes MD [address] [place] [address] Social History Tobacco Use Types Packs/Day [...] mg, 12 mL, 124 mL/Hr, IV Piggyback, [id number] Dulcolax Laxative: 5 mg, Oral, Daily, PRN: Constipation DuoNeb 0.5 mg-2.5 mg/3 mL inhalation solution: 3 mL, Nebulized Inhalation, RT_Q6H, PRN: Shortness of Breath Geodon: 40 mg, Oral, BID HYDROmorphone: 2 mg, Oral, Q4H, PRN: Pain Imitrex: 100 mg, Oral, Daily, PRN: Migraine Headache LaMICtal: 100 mg, Oral, Daily Lactated Ringers Injection intravenous solution 1,000 mL: 20 mL/Hr, IntraVENous Lovenox: 40 mg, SubCutaneous, X64FCmv MiraLax: 17 Gram, Oral, Daily, PRN: Constipation [...] mL 600 mg 12 mL, IV Piggyback, N00HCdu enoxaparin 40 mg/0.4 mL inj 40 mg 0.4 mL, SubCutaneous, Y71KKja famotidine 20 mg tab 20 mg 1 [...] History of obstructive sleep apnea / IMO [id number] / Confirmed Suicide risk / IMO 95424 / Confirmed, Active Problems (2) History of [...] 50 mL 600 mg, IV Piggyback, Inj, N97GBji, infuse over 30 Minute(s), Routine, Start 08/17/21 [...] XL Tab, Daily, Start 08/15/21 11:44:00 EDT SALEME JIMENES MD-INT clonazePAM 0.5 mg, Oral, Tab, [...] 08/15/21 15:00:00 EDT, 08/15/21 12:03:00 EDT SALEEM JIEMNES MD-INT vancomycin + Sodium Chloride 0.9% intravenous solution 250 mL 1,500 mg, IV Piggyback, Inj, I92HOxr, infuse over 60 Minute(s), Start 08/15/21 11:00:00 [...]
--- OUTSIDE RECORDS SUMMARY | 2025-01-04 22:30 | XMS_ITS | Encounter Summary ---
Author Organization [employer] ([place], [place], [place], [place]) Address [address] [place] [address] Care Team Providers Care Brick Veneer Maker Name Role Phone Unavailable Primary Care Provider Unavailabl e Encounter Details Date Type Department Care Team (Late st Contact Info) Description 08/19/2021 Transcribed Document [facility] [place] [address] [place] [address] ProviderMaría MD [address] [place] [address] Social History Tobacco Use Types [...]
--- OUTSIDE RECORDS SUMMARY | 2025-01-04 22:30 | XMS_ITS | Encounter Summary ---
Author Organization [employer] ([place], [place], [place], [place]) Address [address] [place] [address] Care Team Providers Care Carpet Binder Name Role Phone Unavailable Primary Care Provider Unavailabl e Encounter Details Date Type Department Care Team (Late st Contact Info) Description 08/15/2021 Transcribed Document [facility] [place] Family Medicine [address] [place] [address] ProviderMaría MD [address] [place] [address] Social History Tobacco Use Types [...] Historical ProviderMD - 08/15/2021 3:00 AM CDT Supplier Quality Details Entered On: 08/16/2021 4:44 EDT Performed [...]
--- OUTSIDE RECORDS SUMMARY | 2025-01-04 22:31 | XMS_ITS | Encounter Summary ---
Author Organization [employer] ([place], [place], [place], [place]) Address [address] [place] [address] Care Team Providers Care Fire Fighting Equipment Specialist Name Role Phone Unavailable Primary Care Provider Unavailabl e Encounter Details Date Type Department Care Team (Late st Contact Info) Description 08/19/2021 Transcribed Document [facility] [place] Family Medicine [facility] [place] [address] ProviderMaría MD [address] [place] [address] Social History Tobacco Use Types [...] pneumonia, and recent respiratory arrest at [facility] requiring tracheostomy/PEG about a month ago with transfer to [facility]. She was discharged on 08/11. She has been tolerating oral intake and was scheduled to have PEG removed next week. She began having pain around the PEG tube site around 3 days ago with the area becoming more red with burning sensation prompting her to come to [facility] on 08/14/21. She denies fever, chills, [...] mL - 600 mg, IV Piggyback, Inj, [id number], infuse over 30 Minute(s), Routine metroNIDAZOLE (Flagyl) - 500 mg, Oral, Tab, TID, Routine Anticoagulant enoxaparin (Lovenox) - 40 mg, SubCutaneous, Inj, [id number], Routine Cardiovascular carvedilol - 12.5 mg, Oral, [...] No tenderness, No deformity. Integumentary: Warm, Dry, [place], No pallor, No rash, PEG tube site [...] Critical Care - Code Management Assessment: ACC: [id number] ORDER: Culture Wound and Stain DATE: 08/15/2021 [...] cells seen No organisms seen. == ACC: [id number] ORDER: Culture Wound and Stain DATE: 08/15/2021 [...] seen. Few White Blood Cells == ACC: [id number] ORDER: Culture Blood DATE: 08/14/2021 19:11 SOURCE: Blood SITE: Reports Pre 08/18/2021 23:01 No growth at 4 days. Pre 08/17/2021 23:01 No growth at 3 days. Pre 08/16/2021 23:01 No growth at 2 days. Pre 08/15/2021 23:01 No growth at 1 day. Pre 08/15/2021 16:01 Culture less than 24 Hrs old == ACC: [id number] ORDER: Culture Blood DATE: 08/14/2021 19:11 SOURCE: [...]
--- OUTSIDE RECORDS SUMMARY | 2025-01-04 22:31 | XMS_ITS | Encounter Summary ---
Author Organization [employer] ([place], [place], [place], [place]) Address [address] [place] [address] Care Team Providers Care Electric Motor Assembler Name Role Phone Unavailable Primary Care Provider Unavailabl e Encounter Details Date Type Department Care Team (Late st Contact Info) Description 08/17/2021 Transcribed Document [facility] [place] Family Medicine [address] [place] [address] ProviderMaría MD [address] [place] [address] Social History Tobacco Use Types [...]
--- OUTSIDE RECORDS SUMMARY | 2025-01-04 22:31 | XMS_ITS | Encounter Summary ---
Author Organization [employer] ([place], [place], [place], [place]) Address [address] [place] [address] Care Team Providers Care Fishing Instructor Name Role Phone Unavailable Primary Care Provider Unavailabl e Encounter Details Date Type Department Care Team (Late st Contact Info) Description 08/19/2021 Transcribed Document [facility] [place] Family Medicine [facility] [place] [address] ProviderMaría MD [address] [place] [address] Social History Tobacco Use Types [...] ProviderMD - 08/19/2021 3:34 PM CDT [facility] [place], [place] [id number] ZANDER LUCERO :1975 Visit Time:08/14/2021 Your Visit [...] [facility] Home Health Services: [facility] [phone] Medical Equipment for Home Use: Patient Aides (your medical equipment provider)[phone] Transportation: family Discharge Activity: Discharge Activity: Activity as tolerated Diet: Discharge Diet: Heart healthy diet Follow-Up Appointments Follow Up with EMY MUSA (REF)ZACHARY When 08/30/2021 11:30 AM EDT Comments Primary care follow up appointment has been made Bring discharge instructions with you Where: [address] [place] [address] THANH Philippe [address]- [phone] Medications What How Much When Instructions Next Dose amoxicillin-clavulanate (Augmentin 500 mg-125 mg oral tablet) 1 Tablet(s) Oral Every 12 hours Duration: 7 Day(s) Pickup at [facility] carvedilol (carvedilol 12.5 mg oral tablet) 1 Tablet(s) Oral Two Times A Day Duration: 30 Day(s) Pickup at [facility] doxycycline (doxycycline hyclate 100 mg oral tablet) 1 Tablet(s) Oral Two Times A Day Duration: 7 Day(s) Pickup at [facility] guaiFENesin (Mucinex 600 mg oral tablet, extended release) 2 Tablet(s) Oral Two Times A Day Duration: 7 Day(s) Pickup at [facility] metroNIDAZOLE (Flagyl 500 mg oral tablet) 1 Tablet(s) Oral Three Times A Day Duration: 6 Day(s) Pickup at [facility] furosemide (furosemide 20 mg oral tablet) 1 [...] Oral Two Times A Day Pharmacy Information [facility] [place]: [address] [facility] [address] [place], [place] [id number] [phone] Take your medications faithfully. Do NOT skip [...] including vitamins, herbs, eye drops, creams, and geeo-tco-ciypgje medicines. ??? Any problems you or family [...] tells you to take them. ? Taking kymn-vhc-hlncuma medicines, vitamins, herbs, and supplements. ??? Do [...] provider. Document Revised: 10/02/2020 Document Reviewed: 10/02/2020 sezmi Patient Education ?? 2020 [employer]. amoxicillin and clavulanate potassium (am OK i RAVINDRA in KLAV ue RAMAN ate alaan TAS ee um) Augmentin What is the [...] may report side effects to FDA at 9-612-BHL-6979. What other drugs will affect amoxicillin and clavulanate potassium? Tell your doctor about all your other medicines, especially: ?? allopurinol; ?? probenecid; or ?? a blood thinner--warfarin, Coumadin, Jantoven. This list is not complete. Other drugs may affect amoxicillin and clavulanate potassium, including prescription and ygeh-gmv-rjwhidm medicines, vitamins, and herbal products. Not all [...] to ensure that the information provided by [employer]. ('[employer]') is accurate, up-to-date, and complete, but no guarantee is made to that effect. Drug information contained herein may be time sensitive. [employer] information has been compiled for use by healthcare practitioners and consumers in the [place] and therefore [employer] does not warrant that uses outside of the [place] are appropriate, unless specifically indicated otherwise. [employer] drug information does not endorse drugs, diagnose patients or recommend therapy. [employer] drug information is an informational resource designed [...] effective or appropriate for any given patient. [employer] does not assume any responsibility for any aspect of healthcare administered with the aid of information [employer] provides. The information contained herein is not intended to cover all possible uses, directions, precautions, warnings, drug interactions, allergic reactions, or adverse effects. If you have questions about the drugs you are taking, check with your doctor, nurse or pharmacist. Copyright 2868-7792 [employer]. Version: 12.. Revision Date: 07/29/2019. carvedilol (AVEL [...] may report side effects to FDA at 8-254-ADV-2343. What other drugs will affect carvedilol? Sometimes it is not safe to use certain medications at the same time. Some drugs can affect your blood levels of other drugs you take, which may increase side effects or make the medications less effective. Other drugs may affect carvedilol, including prescription and wsyd-yty-pmwfvho medicines, vitamins, and herbal products. Tell your [...] to ensure that the information provided by [employer] ('[employer]') is accurate, up-to-date, and complete, but no guarantee is made to that effect. Drug information contained herein may be time sensitive. [employer] information has been compiled for use by healthcare practitioners and consumers in the [place] and therefore [employer] does not warrant that uses outside of the [place] are appropriate, unless specifically indicated otherwise. [employer] drug information does not endorse drugs, diagnose patients or recommend therapy. [employer] drug information is an informational resource designed [...] effective or appropriate for any given patient. [employer] does not assume any responsibility for any aspect of healthcare administered with the aid of information [employer] provides. The information contained herein is not intended to cover all possible uses, directions, precautions, warnings, drug interactions, allergic reactions, or adverse effects. If you have questions about the drugs you are taking, check with your doctor, nurse or pharmacist. Copyright 8083-4946 [employer]. Version: 16.. Revision Date: 09/27/2018. doxycycline (oral/injection) [...] or life-threatening conditions such as anthrax or [place] spotted fever. The benefit of treating a [...] may report side effects to FDA at 4-699-QFL-3737. What other drugs will affect doxycycline? Sometimes it is not safe to use certain medications at the same time. Some drugs can affect your blood levels of other drugs you take, which may increase side effects or make the medications less effective. Other drugs may affect doxycycline, including prescription and cydl-hsm-ctundue medicines, vitamins, and herbal products. Tell your [...] to ensure that the information provided by [employer]') is accurate, up-to-date, and complete, but no guarantee is made to that effect. Drug information contained herein may be time sensitive. [employer] information has been compiled for use by healthcare practitioners and consumers in the [place] and therefore [employer] does not warrant that uses outside of the [place] are appropriate, unless specifically indicated otherwise. [employer] drug information does not endorse drugs, diagnose patients or recommend therapy. [employer] drug information is an informational resource designed [...] effective or appropriate for any given patient. [employer] does not assume any responsibility for any aspect of healthcare administered with the aid of information [employer] provides. The information contained herein is not intended to cover all possible uses, directions, precautions, warnings, drug interactions, allergic reactions, or adverse effects. If you have questions about the drugs you are taking, check with your doctor, nurse or pharmacist. Copyright 2547-3810 [employer]. Version: 21.04. Revision Date: 04/08/2020. metronidazole (oral/injection) [...] (more likely to occur while taking metronidazole computer terminal operator): ?? numbness, tingling, or burning pain in [...] may report side effects to FDA at 7-775-PBE-1847. What other drugs will affect metronidazole? Sometimes [...] may affect metronidazole. This includes prescription and hmry-uoc-zwwmgrb medicines, vitamins, and herbal products. Not all [...] to ensure that the information provided by [employer] ('[employer]') is accurate, up-to-date, and complete, but no guarantee is made to that effect. Drug information contained herein may be time sensitive. [employer] information has been compiled for use by healthcare practitioners and consumers in the [place] and therefore [employer] does not warrant that uses outside of the [place] are appropriate, unless specifically indicated otherwise. [employer] drug information does not endorse drugs, diagnose patients or recommend therapy. [employer] drug information is an informational resource designed [...] effective or appropriate for any given patient. [employer] does not assume any responsibility for any aspect of healthcare administered with the aid of information [employer] provides. The information contained herein is not intended to cover all possible uses, directions, precautions, warnings, drug interactions, allergic reactions, or adverse effects. If you have questions about the drugs you are taking, check with your doctor, nurse or pharmacist. Copyright 8813-9029 [employer]. Version: 15.. Revision Date: 02/11/2021. guaifenesin (gwye [...] may report side effects to FDA at 5-426-LRW-6576. What other drugs will affect guaifenesin ? Avoid using this medicine with other drugs that cause drowsiness or slow your breathing (such as opioid medicine, a muscle relaxer, or medicine for anxiety or seizures). Ask a doctor or pharmacist before using any other medication, including prescription and wfrz-qnm-lumpudj medicines, vitamins, and herbal products. Not all [...] to ensure that the information provided by [employer] ('[employer]') is accurate, up-to-date, and complete, but no guarantee is made to that effect. Drug information contained herein may be time sensitive. [employer] information has been compiled for use by healthcare practitioners and consumers in the [place] and therefore [employer] does not warrant that uses outside of the [place] are appropriate, unless specifically indicated otherwise. [employer]'s drug information does not endorse drugs, diagnose patients or recommend therapy. [employer] drug information is an informational resource designed [...] effective or appropriate for any given patient. [facility] does not assume any responsibility for any aspect of healthcare administered with the aid of information [facility] provides. The information contained herein is not intended to cover all possible uses, directions, precautions, warnings, drug interactions, allergic reactions, or adverse effects. If you have questions about the drugs you are taking, check with your doctor, nurse or pharmacist. Copyright 5293-[address] [facility] Version: 7.01. Revision Date: 07/30/2018. Emergency [...] Assistance with quitting is available by contacting 6-618-ZDTF-NOW. This is a free resource providing counseling, [...] and 14.9 ) ANC #: 3 K/uL [place] Percent Man: 5 % -- Normal range between ( 4 and 5 ) Neutrophil Percent Man: 58 % -- Normal range between ( 50 and 65 ) Eos Percent Man: 6 % -- Normal range between ( 0 and 3 ) Anisocytosis: 1+ Platelet Ct Estimate: Adequate Jay Percent Man: 2 % -- Normal range [...] range between ( 0.0 and 7.0 ) [place] #: 0.60 K/uL -- Normal range between ( 0.16 and 1.00 ) Eos #: 0.20 x10(3)/uL -- Normal range between ( 0.00 and 0.80 ) [place] %: 9.7 % -- Normal range between [...] ) Urine Bilirubin Dipstick: Negative Urine Specific [place]: *1.028 -- Normal range between ( 1.005 [...] was given the opportunity to ask questions. Patient/Certified Professional Controller Name: Electronically signed by Tomeka, [facility] Conversion Lead Tank Mechanic Cerner at 09/18/2022 8:55 AM CDT documented in this encounter Plan of Treatment Not on file documented as of this encounter Visit Diagnoses Not on filedocumented in this encounter
--- OUTSIDE RECORDS SUMMARY | 2025-01-04 22:31 | XMS_ITS | Encounter Summary ---
Author Organization [employer] ([place], [place], [place], [place]) Address [address] [place] [address] Care Team Providers Care Core Dipper Name Role Phone Unavailable Primary Care Provider Unavailabl e Encounter Details Date Type Department Care Team (Late st Contact Info) Description 08/19/2021 Transcribed Document [facility] [place] [address] [place] [address] ProviderMaría MD [address] [place] [address] Social History Tobacco Use Types [...] Historical ProviderMD - 08/19/2021 3:00 AM CDT Regulatory Scientist Details Entered On: 08/19/2021 2:25 EDT Performed [...] Patient Needs Meds Crushed/Liquid : No Apryl Sanots RN - International - 08/19/2021 2:25 EDT documented in this encounter Plan of Treatment Not on file documented as of this encounter Visit Diagnoses Not on filedocumented in this encounter
--- OUTSIDE RECORDS SUMMARY | 2025-01-04 22:31 | XMS_ITS | Encounter Summary ---
Author Organization [employer] ([place], [place], [place], [place]) Address [address] [place] [address] Care Team Providers Care Turner Splitter Machine Operator Name Role Phone Unavailable Primary Care Provider Unavailabl e Encounter Details Date Type Department Care Team (Late st Contact Info) Description 08/17/2021 Transcribed Document [facility] [place] [address] ProviderMaría MD [address] [place] [address] Social History Tobacco Use Types [...]
--- OUTSIDE RECORDS SUMMARY | 2025-01-04 22:31 | XMS_ITS | Encounter Summary ---
Author Organization [employer] ([place], [place], [place], [place]) Address [address] [place] [address] Care Team Providers Care Agricultural Research Director Name Role Phone Unavailable Primary Care Provider Unavailabl e Encounter Details Date Type Department Care Team (Late st Contact Info) Description 08/19/2021 Transcribed Document [facility] [facility] [place] [address] ProviderMaría MD [address] [place] [address] Social History Tobacco Use Types [...] On: 08/19/2021 11:33 EDT by Zara Donald, Prototype Sewer Primary Insurance Authorization Authorization and Policy Numbers : Insurance 1 Health Plan: [facility] Policy Number: [id number] Authorization Number: Insurance Primary Name : [facility] Policy Number: [id number] Authorization Status-Primary : Apprv contin stay Reference Number-Primary : [id number] Authorization Number-Primary : [id number] Number of Days Authorized-Primary : 9 Day(s) Authorized Service Begin Date-Primary : 08/14/2021 EST Authorized Service End Date-Primary : 08/23/2021 EDT Authorization Comments-Primary : Authorized per fax 08/19/21 @ 0837. This request for inpatient services has been approved x10 days. Next review due 08/24/21. -Efrem Gillette RN. Historical Authorization Comments-Primary : Comment 1: c/s review for inpt faxed wo to [facility] via [employer]. (VASYL HIGGINS, RN-Fuel Cell Repairer 08/19/2021 09:00) Comment 2: inpt admit approved per fax from [facility] 08/16/21 auth# [id number] NRD 08-19-21 (EBEN HURTADO, Bank Worker 08/16/2021 12:52) Comment 3: Clinicals submitted on [facility] website for IP approval (ROBERTO CARLOS CISNEROS RN 08/15/2021 12:09) Zara Donald, Prototype Sewer - 08/19/2021 11:33 EDT documented in this encounter Plan of Treatment Not on file documented as of this encounter Visit Diagnoses Not on filedocumented in this encounter
--- OUTSIDE RECORDS SUMMARY | 2025-01-04 22:31 | XMS_ITS | Encounter Summary ---
Author Organization [employer] ([place], [place], [place], [place]) Address [address] [place] [address] Care Team Providers Care Tapering Machine Operator Name Role Phone Unavailable Primary Care Provider Unavailabl e Encounter Details Date Type Department Care Team (Late st Contact Info) Description 08/19/2021 Transcribed Document [facility] [place] [facility] [address] ProviderMaría MD [address] [place] [address] Social History Tobacco Use Types [...] change in location/level of care Rapid Response Tapering Machine Operator #1 : Carin Hernandez V, Rn Carin Hernandez V Rn - 08/19/2021 1:01 EDT documented in this encounter Plan of Treatment Not on file documented as of this encounter Visit Diagnoses Not on filedocumented in this encounter
--- OUTSIDE RECORDS SUMMARY | 2025-01-04 22:31 | XMS_ITS | Encounter Summary ---
Author Organization [employer] ([place], [place], [place], [place]) Address [address] [place] [address] Care Team Providers Care Brick Handler Name Role Phone Unavailable Primary Care Provider Unavailabl e Encounter Details Date Type Department Care Team (Late st Contact Info) Description 08/19/2021 Transcribed Document [facility] [place] Family Medicine [facility] [place] [address] ProviderMaría MD [address] [place] [address] Social History Tobacco Use Types [...] HEMA METCALF, PT - 08/19/2021 14:14 EDT Director Of Psychiatry Goals Mobility/Bed Mobility LTG PT Grid Goal [...]
--- OUTSIDE RECORDS SUMMARY | 2025-01-04 22:31 | XMS_ITS | Encounter Summary ---
Author Organization [employer] ([place], [place], [place], [place]) Address [address] [place] [address] Care Team Providers Care Cardiology Manager Name Role Phone Unavailable Primary Care Provider Unavailabl e Encounter Details Date Type Department Care Team (Late st Contact Info) Description 08/17/2021 Transcribed Document [facility] [place] Family Medicine [facility] [place] [address] ProviderMaría MD [address] [place] [address] Social History Tobacco Use Types [...]
[2025-01-05] VITALS (23 sets, daily range): BP systolic 89–145; BP diastolic 45–95; PULSE 82–111; RESP 10–34; TEMP 36.3–36.8; O2SAT 91–100; BMI 77.3
[2025-01-05] MEDS: IPRATROPIUM/ALBUTEROL 3 ML NEB IH ×5 (01:57→22:05)
[2025-01-05] MEDS: CEFEPIME HCL 2 GM in 0.9 % SODIUM CHLORIDE 100 ML IV ×2 (02:51→15:22)
[2025-01-05 06:02] LABS: Chloride 101 mmol/L (98-107); Sodium 132 mmol/L (136-145)
[2025-01-05 06:03] LABS: Hematocrit 34.4 % (37.0-47.0); Immature Granulocytes % 0.5 %; Mean Corpuscular HGB Conc 28.8 g/dL (31.8-35.4); Mean Corpuscular Hemoglobin 25.4 pg (27.0-31.2); Mean Corpuscular Volume 88.2 fl (81-99); Nucleated Red Blood Cells % 0 %; Platelet Count 136 K/mm3 (142-424); Potassium 4.5 mmoL/L (3.5-5.1); Red Blood Count 3.90 M/mm3 (4.20-5.40); Red Cell Distribution Width-SD 51.0 fL; White Blood Count 11.3 K/mm3 (4.8-10.8)
[2025-01-05 06:05] LABS: Blood Urea Nitrogen 21 mg/dl (7-17); Creatinine Clearance Estimated 56 mL/min (50-200); Creatinine,Serum 0.90 mg/dl (0.52-1.04); Estimated Glomerular Filt Rate 66 ml/min (>60); GFR (African American) 80 ML/MIN (>60)
[2025-01-05 06:06] LABS: Anion Gap 6.5 mEq/L (5-15); Calcium 8.4 mg/dl (8.4-10.2); Carbon Dioxide 29 mmol/L (22.0-30.0); Glucose 162 mg/dl (74-100)
[2025-01-05] MEDS: BUDESONIDE 0.5MG/2ML NEB 0.5 MG IH ×2 (06:21→18:04)
[2025-01-05 06:24] LABS: Hemoglobin 10.2 g/dL (12.2-16.2)
--- NOTE | 2025-01-05 07:24 | PC.NURSE ---
Pt asked this RN when she could eat because she was hungry. I stated that I would ask respiratory when Joe wanted to do another blood gas. RT stated that she did not know and would let me know when she found out. During shift report the offgoing RN stated that patient was found to be eating crackers at one point overnight while on the bipap.
[2025-01-05] MEDS: PANTOPRAZOLE 40MG TABLET 40 MG PO ×2 (08:23→20:22)
[2025-01-05] MEDS: LEVOTHYROXINE 25MCG (0.025MG) TAB 25 MCG PO (08:23)
[2025-01-05] MEDS: CYCLOBENZAPRINE 10MG TABLET 5 MG PO ×3 (08:23→20:24)
[2025-01-05] MEDS: TERBINAFINE 1% TP ×2 (08:24→20:24)
[2025-01-05] MEDS: ZIPRASIDONE 20MG CAPSULE 40 MG PO ×2 (08:25→20:22)
[2025-01-05] MEDS: MIDODRINE HCL 5 MG TABLET 10 MG PO ×3 (08:25→20:23)
[2025-01-05] MEDS: GABAPENTIN 800MG TABLET 800 MG PO ×3 (08:33→20:21)
[2025-01-05] MEDS: LEVOFLOXACIN/D5W 750 MG/150 ML 750 MG/150 ML PIGGYBACK 100 MG IV (09:25)
[2025-01-05] MEDS: OXYCODONE 10MG W/APAP 325MG TABLET 1 EACH PO ×2 (10:18→20:24)
[2025-01-05 11:10] LABS: Vancomycin,Trough 22.1 ug/mL (5.0-10.0)
--- NOTE | 2025-01-05 17:25 | P.PN_ITS ---
Subjective *Date: 01/05/25 *Time: 17:25 Interval history: patient is seen at bedside, denied CP, N/V, she feels better and has no new complains today Exam Data for Last 24 hours Vital signs and Labs for Last 24 Hours: Temp Pulse Resp BP Pulse Ox O2 Del Method O2 Flow Rate 97.3 F L 107 H 34 H 145/95 H 93 L Trach Collar/Tube 8 01/05/25 16:06 01/05/25 16:06 01/05/25 16:06 01/05/25 16:06 01/05/25 16:06 01/05/25 17:00 01/05/25 16:06 FiO2 35 01/05/25 16:06 Laboratory Results - last 24 hr 01/05/25 05:20: WBC 11.3 H D, RBC 3.90 L, Hgb 10.2 L D, Hct 34.4 L, MCV 88.2, MCH 25.4 L, MCHC 28.8 L, RDW 16.0, Plt Count 136 L, MPV 10.6 H, Neut % (Auto) 87.6 H, Lymph % (Auto) 5.4 L, [place] % (Auto) 6.3, Eos % (Auto) 0.1, Baso % (Auto) 0.1, Neut # (Auto) 9.9 H, Lymph # (Auto) 0.6 L, [place] # (Auto) 0.7, Eos # (Auto) 0.0, Baso # (Auto) 0.0, Sodium 132 L, Potassium 4.5, Chloride 101, Carbon Dioxide 29, Anion Gap 6.5, BUN 21 H, Creatinine 0.90 D, Estimated Creat Clear 56, Estimated GFR 66, Est GFR ( Amer) 80 D, Glucose 162 H, Calcium 8.4 01/05/25 10:10: Vancomycin Trough 22.1 H I & O for Last 24 hours: Intake & Output 01/02/25 01/03/25 01/04/25 01/05/25 23:59 23:59 23:59 23:59 Intake Total 336 / 1036 1661 / 1661 1516 / 1516 Output Total 0 / 0 1100 / 1200 2900 / 2900 Balance 336 / 1036 561 / 461 -1384 / -1384 Weight 184.8 kg 185.4 kg 185.7 kg Microbiology Reports for the Last 24 Hours: Microbiology 01/03/25 15:34 Blood Blood Culture - Preliminary NO GROWTH AFTER 48 HOURS 01/05/25 11:10 Sputum - Expectorated Sputum Gram Stain - Final 01/03/25 15:28 Blood Blood Culture - Preliminary NO GROWTH AFTER 48 HOURS Constitutional Constitutional: mild distress (chronic), morbidly obese, chronically ill appearing and cooperative *Routine HEENT Exam Head: Present normocephalic Eye: Present EOMI and PERRL ENT: Present mucous membranes moist Comments: Cushingoid face, tracheostomy in place with no drainage *Routine Neck Exam Neck: Present supple; Absent lymphadenopathy Comments: Trach collar in place with passy rayo valve *Routine Respiratory Exam Respiratory: Present CTA bilaterally and distant breath sounds; Absent prolonged expiratory phase, rhonchi or wheezes *Routine Cardiovascular Exam Cardiovascular: Present RRR; Absent murmur *Routine Abdominal Exam Abdominal: Present soft and normoactive bowel sounds; Absent tenderness Comments: Morbidly obese. Abdominal wall with resolved erythema. Still has pitting edema of abdominal wall/pannus *Routine Rectal Exam Patient deferred: visual exam *Routine Exam Patient deferred: external exam *Routine Extremities Exam Extremities: Present edema (Chronic lipedema with 1+ edema); Absent cyanosis or clubbing *Routine Skin Exam Skin: Present intact and wounds; Absent rash *Routine Neurological Exam Neurological: Present alert, oriented X3 and moving all extremities; Absent altered mental status Routine Psychiatric Exam Psychiatric: Present normal affect Assessment and Plan *Assessment and plan (1) Tracheostomy tube present: Problem Comment: pt has irritation in trachea site Status: Acute Category: Medical Code(s): Z93.0 - Tracheostomy status (2) (HFpEF) heart failure with preserved ejection fraction: Status: Acute Category: Medical Code(s): I50.30 - Unspecified diastolic (congestive) heart failure (3) Acute on chronic respiratory failure with hypoxia and hypercapnia: Status: Acute Category: Medical Code(s): J96.21 - Acute and chronic respiratory failure with hypoxia; J96.22 - Acute and chronic respiratory failure with hypercapnia (4) COPD (chronic obstructive pulmonary disease): Status: Acute Qualifiers: COPD type: COPD with acute exacerbation Qualified Code(s): J44.1 - Chronic obstructive pulmonary disease with (acute) exacerbation Category: Medical Code(s): J44.9 - Chronic obstructive pulmonary disease, unspecified Plan Patient is a 49-year-old female with past medical history of heart failure, respiratory failure on tracheostomy, morbid obesity who presents to the hospital due to fall, complaint of left ankle pain. Patient otherwise denied chest pain nausea vomiting diarrhea constipation dysuria fevers and chills. Patient mentions she has been recurrent falls. Patient on evaluation in the emergency department was found to have hypoxia, on further workup for hypoxia patient was found to have worsening bilateral opacity concerning for pneumonia Assessment and plan Acute hypoxic hypercapnic respiratory failure likely secondary to COPD exacerbation Pickwickian syndrome community-acquired pneumonia Start start Solu-Medrol, DuoNebs Blood gases checked does show hypercapnia discussed with Pulmonary, recommend to continue to monitor Blood gases, and ordered CXR vancomycin, cefepime, added on levofloxacin Check procalcitonin Check blood cultures Consult pulmonary - appreciate recommendations Monitor on cardiac telemetry Chronic medical conditions CKD stage III Morbid obesity with pickwickian syndrome Hypothyroidism Hypertension Resume home levothyroxine, losartan DVT prophylaxis-heparin subcutaneous
[2025-01-05] MEDS: QUETIAPINE 100MG TABLET 200 MG PO (20:22)
[2025-01-05] MEDS: diazePAM 5MG TABLET 5 MG PO (20:25)
--- NOTE | 2025-01-05 21:59 | PC.NURSE ---
Patient has not had any vbg at all today. Respiratory is bedside to obtain it. Patient has been on trach mask majority of the day instead of bipap.
[2025-01-05] MEDS: VANCOMYCIN HCL 2,500 MG in 0.9 % SODIUM CHLORIDE 500 ML 250 MG IV (22:12)
[2025-01-05 22:25] LABS: VBG HCO3 27.6 mmol/L (23-30); VBG PCO2 62.6 mmol/L (35-51); VBG PH 7.26 mmol/L (7.31-7.41); VBG PO2 114.1 mmol/L (28-40)
[2025-01-05 22:26] LABS: Lactate Venous 1.0 mmol/L (0.4-2.0)
--- NOTE | 2025-01-05 22:55 | PC.NURSE ---
Patient placed on bipap at this time. Will repeat a vbg in the am.
[2025-01-06] VITALS (19 sets, daily range): BP systolic 102–171; BP diastolic 56–97; PULSE 66–108; RESP 10–22; TEMP 36.5–36.8; O2SAT 85–97; BMI 77.5
[2025-01-06] MEDS: CEFEPIME HCL 2 GM in 0.9 % SODIUM CHLORIDE 100 ML IV ×2 (02:10→14:56)
[2025-01-06] MEDS: IPRATROPIUM/ALBUTEROL 3 ML NEB IH ×4 (02:12→14:53)
[2025-01-06 05:26] LABS: Lactate Venous 0.9 mmol/L (0.4-2.0); VBG HCO3 28.7 mmol/L (23-30); VBG PCO2 43.2 mmol/L (35-51); VBG PH 7.44 mmol/L (7.31-7.41); VBG PO2 139.9 mmol/L (28-40)
[2025-01-06 06:11] LABS: Hematocrit 34.0 % (37.0-47.0); Hemoglobin 9.6 g/dL (12.2-16.2); Immature Granulocytes % 0.5 %; Mean Corpuscular HGB Conc 28.2 g/dL (31.8-35.4); Mean Corpuscular Hemoglobin 25.7 pg (27.0-31.2); Mean Corpuscular Volume 90.9 fl (81-99); Nucleated Red Blood Cells % 0 %; Platelet Count 132 K/mm3 (142-424); Red Blood Count 3.74 M/mm3 (4.20-5.40); Red Cell Distribution Width-SD 53.6 fL; White Blood Count 6.3 K/mm3 (4.8-10.8)
[2025-01-06 06:21] LABS: Albumin Level 2.7 g/dl (3.5-5.0); Chloride 104 mmol/L (98-107); Potassium 5.1 mmoL/L (3.5-5.1); Sodium 136 mmol/L (136-145)
[2025-01-06 06:23] LABS: Blood Urea Nitrogen 18 mg/dl (7-17); Creatinine Clearance Estimated 63 mL/min (50-200); Creatinine,Serum 0.80 mg/dl (0.52-1.04); Estimated Glomerular Filt Rate 76 ml/min (>60); GFR (African American) 92 ML/MIN (>60)
[2025-01-06 06:24] LABS: Alanine Aminotransferase 11 U/L (12-78); Albumin/Globulin Ratio 0.7 (1.1-1.8); Alkaline Phosphatase 68 U/L (38-126); Anion Gap 6.1 mEq/L (5-15); Aspartate Amino Transferase 15 U/L (14-36); Calcium 8.7 mg/dl (8.4-10.2); Carbon Dioxide 31 mmol/L (22.0-30.0); Globulin 3.7 g/dL (1.3-3.2); Glucose 92 mg/dl (74-100); Magnesium 2.0 mg/dl (1.6-2.3); Total Protein,Serum 6.4 g/dl (6.3-8.2)
[2025-01-06 06:25] LABS: Bilirubin,Total < 0.1 mg/dl (0.2-1.3)
[2025-01-06] MEDS: LEVOTHYROXINE 25MCG (0.025MG) TAB 25 MCG PO (06:29)
[2025-01-06] MEDS: OXYCODONE 10MG W/APAP 325MG TABLET 1 EACH PO (06:37)
[2025-01-06] MEDS: BUDESONIDE 0.5MG/2ML NEB 0.5 MG IH (06:41)
--- NOTE | 2025-01-06 06:45 | PC.NURSE ---
RESP CARE NOTE: Pt requests speaking valve be placed onto Trach, since she states she is finished wearing the BIPAP for now. Speaking valve placed onto inner cannula of trach, without difficulty. Pt placed on home oxygen requirements of 3.5 lpm nasal cannula per her request. SPO2 remains 93% following oxygen change.
[2025-01-06] MEDS: LEVOFLOXACIN/D5W 750 MG/150 ML 750 MG/150 ML PIGGYBACK 100 MG IV (07:37)
[2025-01-06] MEDS: PANTOPRAZOLE 40MG TABLET 40 MG PO (08:03)
[2025-01-06] MEDS: SPIRONOLACTONE 25MG TABLET 50 MG PO (08:04)
[2025-01-06] MEDS: MIDODRINE HCL 5 MG TABLET 10 MG PO (08:04)
[2025-01-06] MEDS: CYCLOBENZAPRINE 10MG TABLET 5 MG PO ×2 (08:05→12:07)
[2025-01-06] MEDS: FLUTICASONE PROP 50MCG NASAL SPRAY 16GM 1 SPRAY NS (08:05)
[2025-01-06] MEDS: GABAPENTIN 800MG TABLET 800 MG PO ×2 (08:05→12:07)
[2025-01-06] MEDS: TERBINAFINE 1% TP (08:06)
[2025-01-06] MEDS: ZIPRASIDONE 20MG CAPSULE 40 MG PO (08:06)
--- NOTE | 2025-01-06 08:32 | PC.NURSE ---
REPORT RECEIVED FROM TAIWO MCNEIL
--- NOTE | 2025-01-06 09:50 | HMH.OTEV ---
OT Inpatient Evaluation Rehab OT IP Evaluation Start: 01/03/25 17:07 Freq: ONCE Status: Active Protocol: Document 01/06/25 09:45 [facility] (Rec: 01/06/25 09:50 RM[facility] [id number]) Rehab OT IP Assessment Subjective History Pt oriented x 3 on arrival. Pt agreeable to engage in therapy evaluation. Pt admitted on 01/03/25 due to PNA. History and physical: Patient is a 49-year-old female with past medical history of heart failure, respiratory failure on tracheostomy, morbid obesity who presents to the hospital due to fall, complaint of left ankle pain. Patient otherwise denied chest pain nausea vomiting diarrhea constipation dysuria fevers and chills. Patient mentions she has been recurrent falls. Patient on evaluation in the emergency department was found to have hypoxia, on further workup for hypoxia patient was found to have worsening bilateral opacity concerning for pneumon Subjective Pt reports prior to being in the hospital, pt lived alone. Pt claims normally she is independent with all ADLs and simple IADLs. She does no use any type of AE during functional transfers. She does still drive as needed. Objective Patient Orientation Person,Place,Birthday Right Upper WFL Extremity Gross ROM Left Upper Extremity WFL Gross ROM Transfer Training Sit/Stand Transfer Assist Level Contact Guard/Hand Hold Chair Transfer Contact Guard/Hand Hold Ability Chair Transfer Sit to/from Ambulatory Technique Chair Transfer None Assistive Devices Rehab OT IP prob,goals,plan Problems Date of Evaluation: 01/06/25 OT IP Problems Bed Mobility,Transfers,Balance,Self care,Safety Rehab Potential Rehab Potential Good Equipment Needs Assistive Devices Rolling / Wheeled Walker Plan OT intervention Plan Bed Mobility,Transfers,Balance,Self care,Safety, Therapeutic Exercise OT Plan Frequency Daily Discharge Goals Bed Mobility Ability Standby Assistance Sit to Stand Chair Supervision/Stand by Transfer Ability Chair Transfer Supervision/Stand by Ability Chair Transfer Sit to/from Ambulatory Technique Lower Body Dressing Standby Assistance Ability Upper Body Dressing Standby Assistance Ability Performing Toilet Standby Assistance Hygiene Ability Overall Commode/ Standby Assistance Toilet Transfer Ability Commode/Toilet Sit to/from Ambulatory Transfer Technique Discharge Plan OT Discharge Plan Pt will continue to be seen for OT services while at [facility]. Pt appears to be close to her baseline for functional transfers and ADL independence. Pt can return home with OT evaluation for continued skilled therapy services. Continued skilled therapy is important in order for patient to improve strength, safety, endurance, ADL independence, and functional transfers to reach PLOF. Eval Complexity Eval Charge Codes 63372 - Moderate Complexity PHYSICIAN CERTIFICATION: I certify the specified therapy services for Carin Badillo are required, authorized, and reviewed every 30 days.
--- NOTE | 2025-01-06 09:52 | EXP.PULM.CON ---
History of Present Illness History of present illness: Ms. Badillo is a 49-year-old female with history of asthma obesity hypoventilation syndrome status post tracheostomy in 2012 on home trilogy NIV inhaler presented to the ER with worsening respiratory distress on hypercarbic respiratory failure and pulmonary was called for further evaluation and management. Patient at baseline admits compliant with her noninvasive ventilatory therapy. [facility] Disclaimer: The information contained in this section may have been updated after the patient was seen, as this information can be updated by other users. Medical History (Updated 01/06/25 @ 13:02 by Tian Diaz MD) Acute and chronic respiratory failure with hypercapnia Tracheostomy tube present Low O2 saturation Cough Dermatitis Skin lesion Multiple substance abuse Degenerative disc disease, thoracic Acute exacerbation of chronic obstructive pulmonary disease Nausea and vomiting Abdominal pain Acute and chronic respiratory failure Obesity, morbid Deliberate self-cutting Otitis externa of left ear Dysphagia Hearing difficulty of left ear Otalgia, left ear Asthma Acute on chronic respiratory failure with hypoxia and hypercapnia Palpitations Ear pain, right PTSD (post-traumatic stress disorder) Chest pain Generalized anxiety disorder Recurrent major depression resistant to treatment Sleep apnea History of ectopic History of hyperkalemia Diastolic congestive heart failure Paranoid schizophrenia Uses bilevel positive airway pressure (BPAP) ventilation at home History of sleep apnea History of asthma Cellulitis of right lower extremity Acute and chronic respiratory failure with hypercapnia Pneumonia Acute and chronic respiratory failure Right lower lobe pneumonia History of smoking 30 or more pack years Obesity hypoventilation syndrome Chronic respiratory failure with hypercapnia Severe sepsis COVID-19 Acute and chronic respiratory failure Pneumonia Tracheostomy in place Edema Sinus tachycardia Dizziness Diastolic dysfunction Acute on chronic diastolic heart failure Respiratory failure with hypoxia and hypercapnia Congestive heart failure Acute on chronic diastolic heart failure Elevated d-dimer PAC (premature atrial contraction) Chest pain Dyspnea HTN (hypertension) COPD (chronic obstructive pulmonary disease) Tobacco abuse Abnormal stress test SOB (shortness of breath) Angina, class III Obesity Hypothyroidism (~11/21/17) Asthma Insomnia Depression Anxiety Neuropathy Surgical History History of tracheostomy History of appendectomy History of cholecystectomy History of colonoscopy History of left knee surgery History of hysterectomy Family History Other No significant family history Social History (Updated 01/03/25 @ 17:11 by Hailey Suh RN) Smoking Status: Current some day smoker tobacco type: cigarettes packs per day: 1 pack-years: 20 smoking status stop date: 02/2022 alcohol intake: former substance use type: marijuana current occupational status: disabled Travel in the last 8 weeks?: None household members: family housing: apartment number of children: 0 current occupational exposures/hazards: No caffeine: Yes Have you lived/traveled outside [place] in past 30 days?: No Contact w/someone who lives/traveled outside [place] past 30 days?: No Exposure to someone with infectious disease in past 14 days?: No Do you have a fever (greater than 100.4 F or 38 C)?: No Have you tested positive for COVID-19?: No Exposed to someone with COVID-19 in past 14 days?: No Do you have a sore throat?: No Do you have a cough?: No Do you have any weakness?: No Do you have any diarrhea?: No Are you experiencing any unusual bleeding?: No Do you have any muscle aches/pain?: No Do you have any abdominal pain?: No Are you experiencing loss of taste or smell?: No Review of Systems Constitutional Constitutional: Reports anorexia, Denies body ache(s), Denies fatigue and Reports weight gain Eyes Eyes: Denies eye discharge, Denies dry eyes, Denies irritation and Denies itchy eyes ENT Ears, Nose, Mouth, and Throat: Denies epistaxis, Denies facial pain, Denies lip swelling and Denies throat swelling *Cardiovascular Cardiovascular: Reports dyspnea, Reports dyspnea on exertion, Reports leg edema and Reports orthopnea *Respiratory Respiratory: Denies change in phlegm color, Reports chest congestion, Reports cough, Reports dyspnea, Reports dyspnea on exertion, Denies excessive phlegm production, Denies hemoptysis, Denies pain on inspiration, Denies pain with cough and Denies wheezing *Gastrointestinal Gastrointestinal: Denies abdominal pain, Denies belching and Denies cramping *Musculoskeletal Musculoskeletal: Reports back pain, Reports myalgias and Reports other (No small joint swelling or Pain) Comments: Leg Pain Lt LE Psychiatric Psychiatric: Denies homicidal ideation and Denies suicidal ideation Endocrine Endocrine: Denies fatigue and Denies heat intolerance Hematologic/Lymphatic Hematologic/Lymphatic: Denies easy bleeding and Denies lymphadenopathy Allergic/Immunologic Allergic/Immunologic: Denies itchy eyes, Denies lip swelling, Denies throat swelling and Denies wheezing Pulmonology Exam Inpatient Vital signs and Labs for Last 24 Hours: Temp Pulse Resp BP Pulse Ox O2 Del Method O2 Flow Rate 97.7 F 96 H 20 151/90 H 93 L Nasal Cannula 3.5 01/06/25 04:00 01/06/25 07:58 01/06/25 07:58 01/06/25 07:58 01/06/25 08:00 01/06/25 09:00 01/06/25 09:00 FiO2 40 01/05/25 23:31 Laboratory Results - last 24 hr 01/05/25 10:10: Vancomycin Trough 22.1 H 01/05/25 21:53: VBG pH 7.26 L, VBG pCO2 62.6 H, VBG pO2 114.1 H, VBG HCO3 27.6, VBG Total CO2 29.5 H, VBG O2 Saturation 98.3 H, VBG Base Excess -0.6, VBG Lactic Acid 1.0 01/06/25 05:14: WBC 6.3 D, RBC 3.74 L, Hgb 9.6 L, Hct 34.0 L, MCV 90.9, MCH 25.7 L, MCHC 28.2 L, RDW 16.1, Plt Count 132 L, MPV 10.2, Neut % (Auto) 73.8, Lymph % (Auto) 14.9, Jack % (Auto) 9.2, Eos % (Auto) 1.4, Baso % (Auto) 0.2, Neut # (Auto) 4.6, Lymph # (Auto) 0.9, Jack # (Auto) 0.6, Eos # (Auto) 0.1, Baso # (Auto) 0.0, VBG pH 7.44 H, VBG pCO2 43.2, VBG pO2 139.9 H, VBG HCO3 28.7, VBG Total CO2 30.0 H, VBG O2 Saturation 99.1 H, VBG Base Excess 4.1 H, VBG Lactic Acid 0.9, Sodium 136, Potassium 5.1, Chloride 104, Carbon Dioxide 31 H, Anion Gap 6.1, BUN 18 H, Creatinine 0.80, Estimated Creat Clear 63, Estimated GFR 76, Est GFR ( Amer) 92, Glucose 92 D, Calcium 8.7, Magnesium 2.0, Total Bilirubin < 0.1 L, AST 15 D, ALT 11 L, Alkaline Phosphatase 68, Total Protein 6.4, Albumin 2.7 L, Globulin 3.7 H, Albumin/Globulin Ratio 0.7 L I & O for Labs for Last 24 Hours: Intake & Output 01/03/25 01/04/25 01/05/25 01/06/25 23:59 23:59 23:59 23:59 Intake Total 336 / 1036 1661 / 1661 1738 / 2238 840 / 840 Output Total 0 / 0 1100 / 1200 3900 / 3900 1025 / 1025 Balance 336 / 1036 561 / 461 -2162 / -1662 -185 / -185 Weight 407 lb 6.628 oz 408 lb 11.792 oz 409 lb 6.374 oz 410 lb 11.539 oz Microbiology Reports for the Last 24 Hours: Microbiology 01/03/25 15:34 Blood Blood Culture - Preliminary NO GROWTH AFTER 48 HOURS 01/05/25 11:10 Sputum - Expectorated Sputum Gram Stain - Final 01/03/25 15:28 Blood Blood Culture - Preliminary NO GROWTH AFTER 48 HOURS Constitutional: Present moderate distress Head: Present normocephalic and atraumatic ENT: Present normal exam, normal oropharynx and mucous membranes moist Neck: Present normal inspection and full ROM Respiratory: Present respiratory distress, distant breath sounds and able to speak in complete sentences; Absent prolonged expiratory phase, rhonchi or wheezes Cardiac: Present S1/S2, Tachycardia and radial pulses present GI: Present soft and distention; Absent tenderness or guarding Rectal (female): Present deferred (female): Present deferred Skin: Present intact; Absent cyanosis or jaundice Neuro: Present alert, awake and oriented x 3 Extremities: Present normal inspection; Absent clubbing or cyanosis Psychiatric: Present normal affect and cooperative Meds Home Medications and Allergies Home Medications ?Medication ?Instructions ?Recorded ?Confirmed ?Type losartan 25 mg tablet 25 mg PO DAILY #30 tabs 05/15/24 01/03/25 Rx propranolol 10 mg tablet 10 mg PO BID #60 tabs 05/15/24 01/03/25 Rx rivaroxaban 10 mg tablet (Xarelto) 10 mg PO DAILY #10 tabs 07/26/24 01/03/25 Rx linaclotide 145 mcg capsule 145 mcg PO DAILY #90 caps 08/13/24 01/03/25 Rx (Linzess) lamotrigine 100 mg tablet 100 mg PO DAILY #30 tabs 10/10/24 01/03/25 Rx spironolactone 50 mg tablet 50 mg PO DAILY 90 days #90 tabs 11/14/24 01/03/25 Rx (Aldactone) omeprazole 40 mg capsule,delayed 40 mg PO BID 12/04/24 01/03/25 History release albuterol sulfate 90 mcg/actuation 2 inh inhalation Q6HP PRN 12/07/24 01/03/25 History aerosol inhaler (Ventolin HFA) shortness of breath or wheezing diazepam 5 mg tablet 5 mg PO BIDP PRN anxiety 12/07/24 01/03/25 History ondansetron 4 mg disintegrating 4 mg PO Q6HP PRN Nausea And 12/07/24 01/03/25 History tablet Vomiting promethazine 25 mg tablet 25 mg PO TIDP PRN Nausea And 12/07/24 01/03/25 History Vomiting quetiapine 100 mg tablet 200 mg PO HS 12/07/24 01/03/25 History magnesium sulfate 100 mg capsule 100 mg PO DAILY #30 caps 12/09/24 01/03/25 Rx tirzepatide (weight loss) 2.5 2.5 mg (0.5 mL) SQ WEEKLY sleep 12/09/24 01/03/25 Rx mg/0.5 mL subcutaneous pen apnea, morbid obesity #2 mL injector (Zepbound) fluticasone fur. 100 mcg-umeclid 1 inh inhalation DAILY 90 days #90 12/16/24 01/03/25 Rx 62.5 mcg-vilant 25 mcg blisters inhalat.powder (Trelegy Ellipta) gabapentin 800 mg tablet 800 mg PO TID #90 tabs 12/17/24 01/03/25 Rx terbinafine HCl 1 % topical cream 1 applic topical BID #30 grams 12/17/24 01/03/25 Rx (Lamisil AT) duloxetine 30 mg capsule,delayed 90 mg (3 x 30 mg) PO DAILY #180 01/02/25 01/03/25 Rx release caps cyclobenzaprine 5 mg tablet 5 mg PO TID 01/03/25 01/03/25 History fluticasone propionate 50 1 spray intranasal DAILY 01/03/25 01/03/25 History mcg/actuation nasal spray,suspension (Flonase Allergy Relief) levothyroxine 25 mcg tablet 25 mcg PO DAILYDM 01/03/25 01/03/25 History oxycodone-acetaminophen 10 mg-325 1 tab PO QIDP PRN Severe Pain 01/03/25 01/03/25 History mg tablet (Scale Score 7-10) rimegepant 75 mg disintegrating 75 mg PO Q48H 01/03/25 01/03/25 History tablet (Nurtec ODT) sumatriptan succinate 100 mg tablet 100 mg PO DAILYP PRN Headache 01/03/25 01/03/25 History torsemide 100 mg tablet 100 mg PO BIDL 01/03/25 01/03/25 History ziprasidone HCl 40 mg capsule 40 mg PO BID 01/03/25 01/03/25 History New Prescriptions to Start Prescriptions: Allergies Allergy/AdvReac Type Severity Reaction Status Date / Time doxycycline Allergy Severe Blister Verified 12/12/24 11:06 clindamycin Allergy Blister Verified 12/12/24 11:06 Sulfa (Sulfonamide AdvReac Intermediate Rash Verified 12/12/24 11:06 Antibiotics) amoxicillin AdvReac Other Verified 12/12/24 11:06 morphine AdvReac Headache Verified 12/12/24 11:06 nitrofurantoin (From AdvReac Other Verified 12/12/24 11:06 Macrobid) Results Laboratory Findings 01/06/25 05:14 01/06/25 05:14 ABG ABG pH 7.15 mmol/L (7.35-7.45) L* 01/04/25 06:18 ABG pCO2 66.4 mmhg (35.0-45.0) H 01/04/25 06:18 ABG pO2 62.2 mmhg (80-100) L 01/04/25 06:18 ABG O2 Saturation 90 % (90-100) 01/04/25 06:18 Abnormal lab findings: Abnormal Labs 01/03/25 01/03/25 01/03/25 13:34 14:08 22:50 WBC RBC Hgb Hct MCH 26.8 L MCHC 30.3 L Plt Count MPV Neut % (Auto) Lymph % (Auto) Neut # (Auto) Lymph # (Auto) Jack # (Auto) Neutrophils % (Manual) Lymphocytes % (Manual) ABG pH 7.19 L* ABG pCO2 78.9 H ABG pO2 103.6 H ABG HCO3 29.3 H ABG Total CO2 31.7 H ABG Base Excess VBG pH 7.29 L VBG pCO2 71.1 H VBG pO2 123.9 H VBG Total CO2 31.2 H VBG O2 Saturation 98.2 H VBG Base Excess VBG Lactic Acid Sodium Potassium Carbon Dioxide 31 H BUN Creatinine Estimated GFR Est GFR ( Amer) Glucose 125 H Total Bilirubin ALT NT-Pro-B Natriuret Pep 338 H Albumin Globulin 3.3 H Albumin/Globulin Ratio Vancomycin Trough 01/04/25 01/04/25 01/04/25 00:45 02:30 05:45 WBC 18.8 H D RBC Hgb Hct MCH 26.1 L MCHC 28.5 L Plt Count MPV Neut % (Auto) 91.0 H Lymph % (Auto) 1.6 L Neut # (Auto) 17.1 H Lymph # (Auto) 0.3 L Jack # (Auto) 1.1 H Neutrophils % (Manual) 92 H Lymphocytes % (Manual) 8 L ABG pH ABG pCO2 ABG pO2 ABG HCO3 ABG Total CO2 ABG Base Excess VBG pH 7.16 L VBG pCO2 82.3 H 57.1 H VBG pO2 49.1 H 62.8 H VBG Total CO2 31.5 H 29.6 H VBG O2 Saturation 80.0 H 92.2 H VBG Base Excess VBG Lactic Acid 2.2 H Sodium 135 L Potassium 5.4 H D Carbon Dioxide BUN 18 H D Creatinine 1.30 H D Estimated GFR 43 L Est GFR ( Amer) 52 L D Glucose 144 H Total Bilirubin ALT NT-Pro-B Natriuret Pep Albumin Globulin Albumin/Globulin Ratio Vancomycin Trough 01/04/25 01/04/25 01/04/25 06:18 06:55 10:30 WBC RBC Hgb Hct MCH MCHC Plt Count MPV Neut % (Auto) Lymph % (Auto) Neut # (Auto) Lymph # (Auto) Jack # (Auto) Neutrophils % (Manual) Lymphocytes % (Manual) ABG pH 7.15 L* ABG pCO2 66.4 H ABG pO2 62.2 L ABG HCO3 ABG Total CO2 ABG Base Excess -6.0 L VBG pH 7.22 L VBG pCO2 68.6 H VBG pO2 40.2 H 143.8 H VBG Total CO2 29.6 H VBG O2 Saturation 77.1 H 99.0 H VBG Base Excess VBG Lactic Acid 2.5 H Sodium Potassium Carbon Dioxide BUN Creatinine Estimated GFR Est GFR ( Amer) Glucose Total Bilirubin ALT NT-Pro-B Natriuret Pep Albumin Globulin Albumin/Globulin Ratio Vancomycin Trough 01/04/25 01/05/25 01/05/25 16:30 05:20 10:10 WBC 11.3 H D RBC 3.90 L Hgb 10.2 L D Hct 34.4 L MCH 25.4 L MCHC 28.8 L Plt Count 136 L MPV 10.6 H Neut % (Auto) 87.6 H Lymph % (Auto) 5.4 L Neut # (Auto) 9.9 H Lymph # (Auto) 0.6 L Jack # (Auto) Neutrophils % (Manual) Lymphocytes % (Manual) ABG pH ABG pCO2 ABG pO2 ABG HCO3 ABG Total CO2 ABG Base Excess VBG pH 7.22 L VBG pCO2 61.9 H VBG pO2 VBG Total CO2 VBG O2 Saturation VBG Base Excess -3.6 L VBG Lactic Acid Sodium 132 L Potassium Carbon Dioxide BUN 21 H Creatinine Estimated GFR Est GFR ( Amer) Glucose 162 H Total Bilirubin ALT NT-Pro-B Natriuret Pep Albumin Globulin Albumin/Globulin Ratio Vancomycin Trough 22.1 H 01/05/25 01/06/25 21:53 05:14 WBC RBC 3.74 L Hgb 9.6 L Hct 34.0 L MCH 25.7 L MCHC 28.2 L Plt Count 132 L MPV Neut % (Auto) Lymph % (Auto) Neut # (Auto) Lymph # (Auto) Jack # (Auto) Neutrophils % (Manual) Lymphocytes % (Manual) ABG pH ABG pCO2 ABG pO2 ABG HCO3 ABG Total CO2 ABG Base Excess VBG pH 7.26 L 7.44 H VBG pCO2 62.6 H VBG pO2 114.1 H 139.9 H VBG Total CO2 29.5 H 30.0 H VBG O2 Saturation 98.3 H 99.1 H VBG Base Excess 4.1 H VBG Lactic Acid Sodium Potassium Carbon Dioxide 31 H BUN 18 H Creatinine Estimated GFR Est GFR ( Amer) Glucose Total Bilirubin < 0.1 L ALT 11 L NT-Pro-B Natriuret Pep Albumin 2.7 L Globulin 3.7 H Albumin/Globulin Ratio 0.7 L Vancomycin Trough Assessment and Plan *Assessment and plan (1) IRLANDA (obstructive sleep apnea): Status: Acute Category: Medical Code(s): G47.33 - Obstructive sleep apnea (adult) (pediatric) (2) Pickwickian syndrome: Status: Chronic Category: Medical Code(s): E66.2 - Morbid (severe) obesity with alveolar hypoventilation Plan Ms. Badillo is a 49-year-old female with history of asthma obesity hypoventilation syndrome status post tracheostomy in 2012 on home trilogy NIV inhaler presented to the ER with worsening respiratory distress on hypercarbic respiratory failure and pulmonary was called for further evaluation and management. Patient at baseline admits compliant with her noninvasive ventilatory therapy. Neutrophil from leukocytosis improving. On broad-spectrum antibiotics including vancomycin and cefepime and levofloxacin. Blood cultures no growth at 48 hours. Sputum cultures pending. Most recent admission December 2024 for abdominal abscess culture positive for staph hemolyticus Chest x-ray from today and from admission suboptimal exposure,did not show any obvious dense consolidative/airspace changes. Sputum culture from this admission no organisms seen Plan: - Continue home AVAPS tidal volume of 450 rate of 20 and FiO2 of 40% while asleep. - Continue Trelegy 100 inhaler along with DuoNebs 4 times daily as needed -CPAP compliance report from [facility] - Follow up in pulmonary clinic 1 week postdischarge ## Patient unfortunately experiencing frequent episodes of hypercarbic respiratory failure, while she has been doing so well after she had a tracheostomy performed. Patient also noted to have significant weight gain recently. Patient was 370 pounds on her clinic visit from July 2024, current hospital admission patient now weighing 410 pounds with almost a 40 pound weight gain in the last 6 months. This patient had a sleep study performed in 2020 that showed severe sleep apnea with AHI of 146.4. Patient had a tracheostomy around 2012. Despite her tracheostomy given her recurrent hypercarbic respiratory failure, i believe she does have significant component of sleep apnea contributing to her current symptom burden at this point of time. Given her severe morbid obesity and frequent hypercarbic respiratory failure in the setting of possible worsening sleep apnea despite her tracheostomy contributing to her current symptom burden, patient would definitely benefit from weight loss medications including but not limited to Zepbound to improve her overall prognosis.
--- NOTE | 2025-01-06 09:53 | XR_ITS ---
FINAL REPORT CLINICAL HISTORY: SOB COMPARISON: 01/04/2025 FINDINGS: CHEST 1 VIEW The patient is in lordotic positioning. There is mild cardiomegaly. There is a tracheostomy tube in place. The mediastinum is normal. The lungs are underinflated. There is no focal infiltrate or edema. There are no pleural effusions. There is no pneumothorax. There is no osseous abnormality. IMPRESSION: Underinflation without acute cardiopulmonary process. Mild cardiomegaly. Reviewed, Interpreted and Dictated by Lazaro Pal MD Transcribed by Mariela Costa Authenticated and [facility]
--- NOTE | 2025-01-06 10:05 | PC.NURSE ---
radiology at bedside.
--- NOTE | 2025-01-06 11:44 | PC.NURSE ---
PT REQUESTING TO SWITCH FROM NASAL CANNULA TO TRACH COLLAR AFTER EATING LUNCH. RESPIRATORY AWARE.
[2025-01-06] MEDS: ACETAMINOPHEN 325MG TAB 650 MG PO (12:07)
--- NOTE | 2025-01-06 12:21 | PC.NURSE ---
CALLED [facility] TO CHECK ON STATUS OF WHEN THEY WOULD BE HERE. STATED THEY WERE UNAWARE. UPDATED THEM ON PT AND NEED TO FIX TRIOLOGY
--- NOTE | 2025-01-06 14:13 | PC.NURSE ---
[facility] BROUGHT PT'S HOME TRILOGY BACK. DR SAWANT AWARE.
[2025-01-06] MEDS: UBROGEPANT 50MG TABLET 100 MG PO (14:15)
--- NOTE | 2025-01-06 14:37 | PC.NURSE ---
pt changed over to her own trilegy at this time. pt requested to be suctioned. pt requested to suction herself. pt educated that it needed to be sterile, pt insisted she still suction herself.
--- NOTE | 2025-01-06 15:24 | EXP.DC.SUM ---
General Admission date:: 01/03/25 Discharge date: 01/06/25 HPI HPI HPI: Patient is a 49-year-old female with past medical history of heart failure, respiratory failure on tracheostomy, morbid obesity who presents to the hospital due to fall, complaint of left ankle pain. Patient otherwise denied chest pain nausea vomiting diarrhea constipation dysuria fevers and chills. Patient mentions she has been recurrent falls. Patient on evaluation in the emergency department was found to have hypoxia, on further workup for hypoxia patient was found to have worsening bilateral opacity concerning for pneumonia Hospital Course Hospital Course Hospital Course: Morbidly obese 49-year-old female with a PMHx of chronic hypoventilation syndrome, respiratory failure post COVID, trach dependance, on home oxygen 3L, MDD, migraine, hypothyroidism, anxiety disorder, HFpEF, chronic bilateral lymphedema and a former smoker. Presented with acute worsening of respiratory failure. Noted to have hypercarbia and acidosis. Presented with falls, worsening confusion. Found to have acute on chronic hypercapnic respiratory failure. Initially treated with antibiotics. Significant changes made to noninvasive positive pressure ventilation management to improve her respiratory acidosis. Slow gradual improvement during admission. Pulmonology assisted with care. Has improved to her baseline level of function. Antibiotics were discontinued at discharge as there is no focal pneumonia identified on imaging and patient's white count has normalized. Continue DuoNebs and long-acting inhalers. Her home trilogy device needed maintenance while admitted. Syd assisted with maintenance and replaced her device prior to discharge home. Come to find out as well as she was out of oxygen at home, refilled prior to discharge. Stable to discharge home. High risk for readmission due to her medical complexity. Problems addressed as follows: Acute on chronic hypercapnic respiratory failure Tracheostomy dependance. obesity hypoventilation syndrome - On initial presentation her white count was 8.1, jumped to 18.8 suspect due to stress and steroid administration. Was initially on broad-spectrum antibiotics including vancomycin and cefepime and Levaquin. Blood culture showed no growth at 48 hours. Sputum culture no growth at the time of discharge. Given the chest x-ray on day of discharge and from admission did not show any obvious dense consolidative airspace changes, will discontinue antibiotics at discharge. Pulmonology assisted with care and management of her respiratory failure along with adjustments to her AVAPS device. Plan to continue home AVAPS with tidal volume of 450, rate of 20 and FiO2 of 40% while asleep. Continue Trelegy 100 inhaler along with DuoNebs 4 times a day as needed. Patient did not have nebulizer at home per her report, 1 was ordered at discharge. She was also out of oxygen, this was refilled by [facility] prior to discharge. Recommend follow-up in pulmonology clinic in 1 week. At baseline level of function, stable to discharge home. Of note, patient is trach dependent. Each time she presents to our facility, there is difficulty in managing her as we do not have cuffed trach's that fit her at this time nor do we have replacement trachs and her size to replace her inner cannula. We are dependent upon her bringing her own equipment including adapter that will connect to both her AVAPS as well as our in-house BiPAP. If patient does not have this equipment with her, the risk of admission and suboptimal management outweighs the benefit of admission to our facility. Strongly consider transfer unless can verify we have appropriate equipment to manage her safely at our facility. Chronic stable conditions:: Headache/history of migraines: Ubrelvy 100 ordered as needed daily, Tylenol and morphine as needed for pain management. Holding home sumatriptan MDD with anxierty: Continue diazepam 5 mg as needed daily, caution with polypharmacy and monitor for toxicity in conjunction with her pain regimen including opiates and GABAnergics Hypothyroid: Continue levothyroxine 25 mcg daily Prediabetes: last a1c 5.3 08/31/24, monitor glucose before meal, sliding scale insulin as needed Morbidly obese. Complicates all aspects of her care. High risk for readmission. She has unfortunately experienced significant weight gain in the past 6 months of approximately 40 pounds. Previously had been on GLP-1, no longer using as it was not approved by her insurance. Concerned that her worsening and more frequent hypercarbic respiratory failure episodes and continued trach dependence are directly related to her worsening morbid obesity. Total time spent on discharge 36 minutes in counseling, documentation, chart review, and direct care with patient. Exam Data for Last 24 hours Vital signs and Labs for Last 24 Hours: Temp Pulse Resp BP Pulse Ox O2 Del Method O2 Flow Rate 98.3 F 98 H 20 149/80 H 90 L Trilogy 3.5 01/06/25 08:00 01/06/25 14:00 01/06/25 14:00 01/06/25 14:00 01/06/25 14:25 01/06/25 14:50 01/06/25 14:25 FiO2 40 01/06/25 06:48 Laboratory Results - last 24 hr 01/05/25 21:53: VBG pH 7.26 L, VBG pCO2 62.6 H, VBG pO2 114.1 H, VBG HCO3 27.6, VBG Total CO2 29.5 H, VBG O2 Saturation 98.3 H, VBG Base Excess -0.6, VBG Lactic Acid 1.0 01/06/25 05:14: WBC 6.3 D, RBC 3.74 L, Hgb 9.6 L, Hct 34.0 L, MCV 90.9, MCH 25.7 L, MCHC 28.2 L, RDW 16.1, Plt Count 132 L, MPV 10.2, Neut % (Auto) 73.8, Lymph % (Auto) 14.9, Laurel % (Auto) 9.2, Eos % (Auto) 1.4, Baso % (Auto) 0.2, Neut # (Auto) 4.6, Lymph # (Auto) 0.9, Laurel # (Auto) 0.6, Eos # (Auto) 0.1, Baso # (Auto) 0.0, VBG pH 7.44 H, VBG pCO2 43.2, VBG pO2 139.9 H, VBG HCO3 28.7, VBG Total CO2 30.0 H, VBG O2 Saturation 99.1 H, VBG Base Excess 4.1 H, VBG Lactic Acid 0.9, Sodium 136, Potassium 5.1, Chloride 104, Carbon Dioxide 31 H, Anion Gap 6.1, BUN 18 H, Creatinine 0.80, Estimated Creat Clear 63, Estimated GFR 76, Est GFR ( Amer) 92, Glucose 92 D, Calcium 8.7, Magnesium 2.0, Total Bilirubin < 0.1 L, AST 15 D, ALT 11 L, Alkaline Phosphatase 68, Total Protein 6.4, Albumin 2.7 L, Globulin 3.7 H, Albumin/Globulin Ratio 0.7 L I & O for Last 24 hours: Intake & Output 08/01/25 08/02/25 08/03/25 08/04/25 23:59 23:59 23:59 23:59 Intake Total 336 / 1036 1661 / 1661 1738 / 2238 1080 / 1080 Output Total 0 / 0 1100 / 1200 3900 / 3900 1925 / 1925 Balance 336 / 1036 561 / 461 -2162 / -1662 -845 / -845 Weight 184.8 kg 185.4 kg 185.7 kg 186.3 kg Microbiology Reports for the Last 24 Hours: Microbiology 01/03/25 15:34 Blood Blood Culture - Preliminary NO GROWTH AFTER 48 HOURS 01/05/25 11:10 Sputum - Expectorated Sputum Gram Stain - Final Constitutional Constitutional: mild distress (chronic), morbidly obese, chronically ill appearing and cooperative *Routine HEENT Exam Head: Present normocephalic Eye: Present EOMI and PERRL ENT: Present mucous membranes moist Comments: Cushingoid face, tracheostomy in place with no drainage *Routine Neck Exam Neck: Present supple; Absent lymphadenopathy Comments: Trach collar in place with passy rayo valve *Routine Respiratory Exam Respiratory: Present CTA bilaterally and distant breath sounds; Absent prolonged expiratory phase, rhonchi or wheezes *Routine Cardiovascular Exam Cardiovascular: Present RRR; Absent murmur *Routine Abdominal Exam Abdominal: Present soft and normoactive bowel sounds; Absent tenderness Comments: Morbidly obese. *Routine Rectal Exam Patient deferred: visual exam *Routine Exam Patient deferred: external exam *Routine Extremities Exam Extremities: Present edema (Chronic lipedema with 1+ edema); Absent cyanosis or clubbing *Routine Skin Exam Skin: Present intact; Absent wounds or rash *Routine Neurological Exam Neurological: Present alert, oriented X3 and moving all extremities; Absent altered mental status Routine Psychiatric Exam Psychiatric: Present normal affect Results Data Completed and Pending Labs on day of discharge: Labs from last 24 hours 01/06/25 01/05/25 05:14 21:53 WBC 6.3 D RBC 3.74 L Hgb 9.6 L Hct 34.0 L MCV 90.9 MCH 25.7 L MCHC 28.2 L RDW 16.1 Plt Count 132 L MPV 10.2 Neut % (Auto) 73.8 Lymph % (Auto) 14.9 Laurel % (Auto) 9.2 Eos % (Auto) 1.4 Baso % (Auto) 0.2 Neut # (Auto) 4.6 Lymph # (Auto) 0.9 Laurel # (Auto) 0.6 Eos # (Auto) 0.1 Baso # (Auto) 0.0 VBG pH 7.44 H 7.26 L VBG pCO2 43.2 62.6 H VBG pO2 139.9 H 114.1 H VBG HCO3 28.7 27.6 VBG Total CO2 30.0 H 29.5 H VBG O2 Saturation 99.1 H 98.3 H VBG Base Excess 4.1 H -0.6 VBG Lactic Acid 0.9 1.0 Sodium 136 Potassium 5.1 Chloride 104 Carbon Dioxide 31 H Anion Gap 6.1 BUN 18 H Creatinine 0.80 Estimated Creat Clear 63 Estimated GFR 76 Est GFR ( Amer) 92 Glucose 92 D Calcium 8.7 Magnesium 2.0 Total Bilirubin < 0.1 L AST 15 D ALT 11 L Alkaline Phosphatase 68 Total Protein 6.4 Albumin 2.7 L Globulin 3.7 H Albumin/Globulin Ratio 0.7 L Preliminary micro results at discharge 01/03/25 15:34 Blood Culture - Preliminary Blood NO GROWTH AFTER 48 HOURS 01/03/25 15:28 Blood Culture - Preliminary Blood NO GROWTH AFTER 48 HOURS DS: Diagnosis Discharge Diagnosis (1) IRLANDA (obstructive sleep apnea): Status: Acute Code(s): G47.33 - Obstructive sleep apnea (adult) (pediatric) (2) Pickwickian syndrome: Status: Chronic Code(s): E66.2 - Morbid (severe) obesity with alveolar hypoventilation (3) Acute and chronic respiratory failure with hypercapnia: Status: Acute Code(s): J96.22 - Acute and chronic respiratory failure with hypercapnia (4) Tracheostomy tube present: Status: Acute Code(s): Z93.0 - Tracheostomy status Problem details: pt has irritation in trachea site (5) Morbid obesity: Status: Acute Code(s): E66.01 - Morbid (severe) obesity due to excess calories (6) History of tracheostomy: Status: Acute Code(s): Z98.890 - Other specified postprocedural states Problem details: july 2021 (7) Generalized anxiety disorder with panic attacks: Status: Acute Code(s): F41.1 - Generalized anxiety disorder; F41.0 - Panic disorder [episodic paroxysmal anxiety] (8) (HFpEF) heart failure with preserved ejection fraction: Status: Acute Code(s): I50.30 - Unspecified diastolic (congestive) heart failure (9) COPD (chronic obstructive pulmonary disease): Status: Acute Code(s): J44.9 - Chronic obstructive pulmonary disease, unspecified Qualifiers: COPD type: COPD with acute exacerbation Qualified Code(s): J44.1 - Chronic obstructive pulmonary disease with (acute) exacerbation (10) MDD (major depressive disorder), recurrent episode: Status: Acute Code(s): F33.9 - Major depressive disorder, recurrent, unspecified Qualifiers: Major depression episode severity: severe Psychotic features: with psychotic features Qualified Code(s): F33.3 - Major depressive disorder, recurrent, severe with psychotic symptoms Meds Home Medications and Allergies Home Medications ?Medication ?Instructions ?Recorded ?Confirmed ?Type losartan 25 mg tablet 25 mg PO DAILY #30 tabs 05/15/24 01/03/25 Rx propranolol 10 mg tablet 10 mg PO BID #60 tabs 05/15/24 01/03/25 Rx rivaroxaban 10 mg tablet (Xarelto) 10 mg PO DAILY #10 tabs 07/26/24 01/03/25 Rx linaclotide 145 mcg capsule 145 mcg PO DAILY #90 caps 08/13/24 01/03/25 Rx (Linzess) lamotrigine 100 mg tablet 100 mg PO DAILY #30 tabs 10/10/24 01/03/25 Rx spironolactone 50 mg tablet 50 mg PO DAILY 90 days #90 tabs 11/14/24 01/03/25 Rx (Aldactone) omeprazole 40 mg capsule,delayed 40 mg PO BID 12/04/24 01/03/25 History release albuterol sulfate 90 mcg/actuation 2 inh inhalation Q6HP PRN 12/07/24 01/03/25 History aerosol inhaler (Ventolin HFA) shortness of breath or wheezing diazepam 5 mg tablet 5 mg PO BIDP PRN anxiety 12/07/24 01/03/25 History ondansetron 4 mg disintegrating 4 mg PO Q6HP PRN Nausea And 12/07/24 01/03/25 History tablet Vomiting promethazine 25 mg tablet 25 mg PO TIDP PRN Nausea And 12/07/24 01/03/25 History Vomiting quetiapine 100 mg tablet 200 mg PO HS 12/07/24 01/03/25 History magnesium sulfate 100 mg capsule 100 mg PO DAILY #30 caps 12/09/24 01/03/25 Rx tirzepatide (weight loss) 2.5 2.5 mg (0.5 mL) SQ WEEKLY sleep 12/09/24 01/03/25 Rx mg/0.5 mL subcutaneous pen apnea, morbid obesity #2 mL injector (Zepbound) fluticasone fur. 100 mcg-umeclid 1 inh inhalation DAILY 90 days #90 12/16/24 01/03/25 Rx 62.5 mcg-vilant 25 mcg blisters inhalat.powder (Trelegy Ellipta) gabapentin 800 mg tablet 800 mg PO TID #90 tabs 12/17/24 01/03/25 Rx terbinafine HCl 1 % topical cream 1 applic topical BID #30 grams 12/17/24 01/03/25 Rx (Lamisil AT) duloxetine 30 mg capsule,delayed 90 mg (3 x 30 mg) PO DAILY #180 01/02/25 01/03/25 Rx release caps cyclobenzaprine 5 mg tablet 5 mg PO TID 01/03/25 01/03/25 History fluticasone propionate 50 1 spray intranasal DAILY 01/03/25 01/03/25 History mcg/actuation nasal spray,suspension (Flonase Allergy Relief) levothyroxine 25 mcg tablet 25 mcg PO DAILYDM 01/03/25 01/03/25 History oxycodone-acetaminophen 10 mg-325 1 tab PO QIDP PRN Severe Pain 01/03/25 01/03/25 History mg tablet (Scale Score 7-10) rimegepant 75 mg disintegrating 75 mg PO Q48H 01/03/25 01/03/25 History tablet (Nurtec ODT) sumatriptan succinate 100 mg tablet 100 mg PO DAILYP PRN Headache 01/03/25 01/03/25 History torsemide 100 mg tablet 100 mg PO BIDL 01/03/25 01/03/25 History ziprasidone HCl 40 mg capsule 40 mg PO BID 01/03/25 01/03/25 History ipratropium 0.5 mg-albuterol 3 mg 3 ml inhalation Q4HP PRN Shortness 01/06/25 Rx (2.5 mg base)/3 mL nebulization Of Breath #180 mL soln New Prescriptions to Start Prescriptions: ipratropium-albuterol Dean Ornelas Allergies Allergy/AdvReac Type Severity Reaction Status Date / Time doxycycline Allergy Severe Blister Verified 12/12/24 11:06 clindamycin Allergy Blister Verified 12/12/24 11:06 Sulfa (Sulfonamide AdvReac Intermediate Rash Verified 12/12/24 11:06 Antibiotics) amoxicillin AdvReac Other Verified 12/12/24 11:06 morphine AdvReac Headache Verified 12/12/24 11:06 nitrofurantoin (From AdvReac Other Verified 12/12/24 11:06 Macrobid) Discharge Plan Disposition Patient Disposition: Home, Self-Care Condition: Fair Discharge Order Discharge Orders: Discharge Order (Routine); Ordered 01/06/25 Ordered By: Dean Ornelas Follow up Plan Follow up with: Tian Diaz MD [Physician, Pulmonology] - 01/09/25 1:00 pm Mario Sher MD [Primary Care Provider, [facility]] - 01/09/25 9:15 am Prescriptions/Medication Reconciliation: New ipratropium-albuterol 0.5 mg-3 mg(2.5 mg base)/3 mL Solution For Nebulization 3 ml inhalation Q4HP PRN (Reason: Shortness Of Breath) Qty: 180 0RF Continued Xarelto 10 mg tablet 10 mg PO DAILY Qty: 10 0RF omeprazole 40 mg capsule,delayed release(DR/EC) 40 mg PO BID losartan 25 mg tablet 25 mg PO DAILY Qty: 30 5RF propranolol 10 mg tablet 10 mg PO BID Qty: 60 5RF Linzess 145 mcg capsule 145 mcg PO DAILY Qty: 90 2RF lamotrigine 100 mg tablet 100 mg PO DAILY Qty: 30 3RF spironolactone [Aldactone] 50 mg tablet 50 mg PO DAILY 90 Days Qty: 90 4RF Trelegy Ellipta 100-62.5-25 mcg blister with device 1 inh inhalation DAILY 90 Days Qty: 90 3RF terbinafine HCl [Lamisil AT] 1 % cream 1 applic topical BID Qty: 30 1RF Rx Instructions: applyto affected area on scalp BID. gabapentin 800 mg tablet 800 mg PO TID Qty: 90 3RF duloxetine 30 mg capsule,delayed release(DR/EC) 90 mg PO DAILY Qty: 180 3RF quetiapine 100 mg tablet 200 mg PO HS promethazine 25 mg tablet 25 mg PO TIDP PRN (Reason: Nausea And Vomiting) albuterol sulfate [Ventolin HFA] 90 mcg/actuation HFA aerosol inhaler 2 inh inhalation Q6HP PRN (Reason: shortness of breath or wheezing) ondansetron 4 mg tablet,disintegrating 4 mg PO Q6HP PRN (Reason: Nausea And Vomiting) diazepam 5 mg tablet 5 mg PO BIDP PRN (Reason: anxiety) Zepbound 2.5 mg/0.5 mL pen injector 2.5 mg SQ WEEKLY Qty: 2 2RF Rx Instructions: for 4 weeks magnesium sulfate 100 mg capsule 100 mg PO DAILY Qty: 30 0RF sumatriptan succinate 100 mg tablet 100 mg PO DAILYP PRN (Reason: Headache) levothyroxine 25 mcg tablet 25 mcg PO DAILYDM torsemide 100 mg tablet 100 mg PO BIDL oxycodone-acetaminophen 10-325 mg tablet 1 tab PO QIDP PRN (Reason: Severe Pain (Scale Score 7-10)) ziprasidone HCl 40 mg capsule 40 mg PO BID fluticasone propionate [Flonase Allergy Relief] 50 mcg/actuation spray,suspension 1 spray intranasal DAILY Rx Instructions: administer into each nostril cyclobenzaprine 5 mg tablet 5 mg PO TID Nurtec ODT 75 mg tablet,disintegrating 75 mg PO Q48H Other Ambulatory Orders: Home Medical Equipment (Routine) Location: None Selected Ordered By: Dean Ornelas Problem Reconciliation Problems Reviewed?: Yes Patient Discharge Instructions ACTIVITY: Continue current activity DIET: continue same diet Patient Instructions: How to Take Care of a Tracheostomy, Heart Failure, Respiratory Failure Print Language: Korean Providers Primary Care Provider: Mario Sher Admit Provider: Luis Carlos Sadler Attending Provider: Luis Carlos Sadler
--- NOTE | 2025-01-06 15:28 | SW/DCPLANNER ---
PT/OT recommended home health services. Not able to set up services at this time due to patient's insurance. Patient currently receives Medicaid Waiver services.
--- NOTE | 2025-01-06 15:53 | CARE MANAGER ---
Patient needs nebulizer and already receives supplies from [facility]. Information sent with the order as well as updated settings for home device.
--- NOTE | 2025-01-06 16:07 | PC.NURSE ---
[facility] called at this time for home oxygen, pt states she is out of her home oxygen.
--- NOTE | 2025-01-06 16:10 | PC.NURSE ---
CALLED [employer] TO BRING OXYGEN TANKS TO HOSPITAL SO PT CAN GO HOME. PT STATES SHE IS OUT OF TANKS AT HOME AND [employer] SAID THEY WOULD GO FILL THE TANKS. PT AWARE.
--- NOTE | 2025-01-06 16:28 | PC.NURSE ---
[employer] AT BEDSIDE SETTING PT UP FOR HOME O2.
--- NOTE | 2025-01-06 16:29 | PC.NURSE ---
SPOKE WITH PT ABOUT PICKING UP MEDS FROM [facility]IC [facility] AND ASKED IF SHE WOULD LIKE THEM SWITCHED TO HERE. SHE STATED NO SHE WOULD LIKE TO SEND THEM TO THE ONE BEHIND CARMELLA Kaur VERBALIZED UNDERSTANDING.
--- NOTE | 2025-01-06 16:35 | PC.NURSE ---
THIS RN MADE SURE PT HAD OXYGEN IN [facility] AND WAS TURNED ON PRIOR TO LEAVING FLOOR. PT VERBALIZED UNDERSTANDING ABOUT PICKING UP MEDS AT [facility]IC [facility], IMPORTANCE OF WEARING OXYGEN OR TRILOGY, AND FOLLOW UP APPOINTMENTS. PT IS PINK IN COLOR, NO QUESTIONS OR CONCERNS VOICED. FRIEND AT BEDSIDE STATES SHE IS TAKING PT HOME. NO QUESTIONS OR CONCERNS VOICED BY HER EITHER. PT'S BREATHING IS REGULAR AND UNLABORED. PT HAS ALL EQUIPMENT IN PATIENT BELONGING BAG TO TAKE HOME WITH HER. VERBALIZED SHE SPOKE WITH [employer] WHEN THEY ARRIVED TO COME SET UP MORE OXYGEN TANKS AT HER HOME.
--- NOTE | 2025-01-07 10:09 | CARE MANAGER ---
Spoke with patient related to hospital discharge. She states she feels weak, but is doing ok. She received her nebs from [facility] and had no other medication changes. She is aware of follow up appointments. Attempted to find out what company she receives some of trach supplies. She provided 2 different numbers to the company but they did not work. It is possible she gets it through a waiver service, but I'm not sure who provides her waiver services. Patient denies questions or concerns.
== END 2025-01-06 16:40 | disposition home or self-care (01) | DRG 189 ==
LOC: ER 13:53 → ICU 16:27
PROVIDERS: Internal Medicine Adolescent Medicine; Internal Medicine Pulmonary Disease; Nurse Practitioner; Admitting Provider Internal Medicine; Emergency Provider Student in an Organized Health Care Education/Training Program; PCP Family Medicine; Visit Provider Internal Medicine
DX: J96.22 Acute and chronic respiratory failure with hypercapnia (principal); E66.2 Morbid (severe) obesity with alveolar hypoventilation; J44.1 Chronic obstructive pulmonary disease with (acute) exacerbation; I50.32 Chronic diastolic (congestive) heart failure; Z68.45 Body mass index [BMI] 70 or greater, adult; F33.3 Major depressive disorder, recurrent, severe with psychotic symptoms; I13.0 Hypertensive heart and chronic kidney disease with heart failure and stage 1 through stage 4 chronic kidney disease, or unspecified chronic kidney disease; N18.30 Chronic kidney disease, stage 3 unspecified; E03.9 Hypothyroidism, unspecified; G43.909 Migraine, unspecified, not intractable, without status migrainosus; F41.1 Generalized anxiety disorder; F41.0 Panic disorder [episodic paroxysmal anxiety]; I89.0 Lymphedema, not elsewhere classified; F17.210 Nicotine dependence, cigarettes, uncomplicated; U09.9 Post COVID-19 condition, unspecified; R73.03 Prediabetes; R29.6 Repeated falls; Z93.0 Tracheostomy status; Z79.890 Hormone replacement therapy; Z79.899 Other long term (current) drug therapy; Z88.1 Allergy status to other antibiotic agents; Z88.5 Allergy status to narcotic agent; Z88.0 Allergy status to penicillin; Z88.2 Allergy status to sulfonamides
CPT/HCPCS: 36415; 71045; 73562; 73610; 80048; 80053; 80202; 82803; 83605; 83735; 83880; 84145; 84484; 85007; 85025; 86803; 87040; 87070; 87154; 87205; 87389; 93005; 94640; 94660; 94761; 97163; 97166; J0692; J1644; J1939; J1956; J2919; J3373; J3375; J7040

== ENCOUNTER 2025-01-14 12:38 | Outpatient (CLI) | payer MEDICAID, SELFPAY ==
--- OUTSIDE RECORDS SUMMARY | 2025-01-14 12:41 | XMS_ITS | Encounter Summary ---
Author Organization [employer] ([place], [place], [place], [place]) Address [address] [place] [address] Care Team Providers Care Organizational Development Consultant Name Role Phone Unavailable Primary Care Provider Unavailabl e Encounter Details Date Type Department Care Team (Late st Contact Info) Description 08/15/2021 Transcribed Document [facility] [place] [facility] [place] [address] ProviderMaría MD [address] [place] [address] Social History Tobacco Use Types [...] Policy Numbers : Insurance 1 Health Plan: [employer] [facility] Policy Number: [id number] Authorization Number: Insurance Primary Name : [employer] Policy Number: [id number] Authorization Status-Primary : Awaiting callback Reference Number-Primary : [id number] Authorized Service Begin Date-Primary : 08/14/2021 EST Authorization Comments-Primary : Clinicals submitted on [facility] website for IP approval Historical Authorization Comments-Primary : No Authorization Comments Found ROBERTO CARLOS CISNEROS RN - 08/15/2021 12:09 EDT Electronically signed by Tomeka [facility] Conversion Director Of Estate Cerner at 09/18/2022 8:57 AM CDT documented in this encounter Plan of Treatment Not on file documented as of this encounter Visit Diagnoses Not on filedocumented in this encounter
--- OUTSIDE RECORDS SUMMARY | 2025-01-14 12:41 | XMS_ITS | Encounter Summary ---
Author Organization [employer] ([place], [place], [place], [place]) Address [address] [place] [address] Care Team Providers Care Custom Studio Coordinator Name Role Phone Unavailable Primary Care Provider Unavailabl e Encounter Details Date Type Department Care Team (Late st Contact Info) Description 08/18/2021 Transcribed Document [facility] Radiology [address] [place] [address] Saleem Jimenes MD [address] [place] [id number] Social History Tobacco Use Types Packs/Day [...] mg, 12 mL, 124 mL/Hr, IV Piggyback, [id number] Dulcolax Laxative: 5 mg, Oral, Daily, PRN: Constipation DuoNeb 0.5 mg-2.5 mg/3 mL inhalation solution: 3 mL, Nebulized Inhalation, RT_Q6H, PRN: Shortness of Breath Geodon: 40 mg, Oral, BID HYDROmorphone: 2 mg, Oral, Q4H, PRN: Breakthrough Pain Imitrex: 100 mg, Oral, Daily, PRN: Migraine Headache LaMICtal: 100 mg, Oral, Daily Lovenox: 40 mg, SubCutaneous, [id number] MiraLax: 17 Gram, Oral, Daily, PRN: Constipation [...] mL 600 mg 12 mL, IV Piggyback, [id number] enoxaparin 40 mg/0.4 mL inj 40 mg 0.4 mL, SubCutaneous, [id number] famotidine 20 mg tab 20 mg 1 [...] History of obstructive sleep apnea / IMO [id number] / Confirmed Suicide risk / IMO [id number] / Confirmed, Active Problems (2) History of [...] 29.9 \ Radiology Results (Last 48 hours) [id number] -- 08/14/2021 22:53 CR Chest 1 Vw [...]
--- OUTSIDE RECORDS SUMMARY | 2025-01-14 12:41 | XMS_ITS | Encounter Summary ---
Author Organization [employer] ([place], [place], [place], [place]) Address [address] [place] [address] Care Team Providers Care Termite Control Technician Name Role Phone Unavailable Primary Care Provider Unavailabl e Encounter Details Date Type Department Care Team (Late st Contact Info) Description 08/17/[address] [facility] [place] Medicine [facility] [place] [address] ProviderMaría MD [address] [place] [address] Social History Tobacco Use [...] EDT Performed On: 08/17/2021 2:39 EDT by MAIRANELA TOBAR RN Flex II Intervention Information: oxyCODONE [...]
--- OUTSIDE RECORDS SUMMARY | 2025-01-14 12:41 | XMS_ITS | Encounter Summary ---
Author Organization [employer] ([place], [place], [place], [place]) Address [address] [place] [address] Care Team Providers Care Salary And Wage Administrator Name Role Phone Unavailable Primary Care Provider Unavailabl e Encounter Details Date Type Department Care Team (Late st Contact Info) Description 08/18/2021 Transcribed Document [facility] [place] [facility] [address] [place] [address] ProviderMaría MD [address] [place] [address] Social History Tobacco Use Types [...] Historical ProviderMD - 08/18/2021 3:04 PM CDT [place] OT Charges Entered On: 08/18/2021 15:05 EDT Performed On: 08/18/2021 15:04 EDT by GIANNA RHODES OTR/L [place] OT Charges OT EA ADDL 15 MIN NO CHARGE : 2 (Comment: MDR [GIANNA RHODES OTR/Az - 08/18/2021 15:05 EDT] ) GIANNA RHODES OTR/Az - 08/18/2021 15:05 EDT Electronically signed by Tomeka [facility] Conversion [employer] Cerner at 09/18/2022 8:58 AM CDT documented in this encounter Plan of Treatment Not on file documented as of this encounter Visit Diagnoses Not on filedocumented in this encounter
--- OUTSIDE RECORDS SUMMARY | 2025-01-14 12:41 | XMS_ITS | Encounter Summary ---
Author Organization [employer] ([place], [place], [place], [place]) Address [address] [place] [address] Care Team Providers Care Fiberglass Grinder Name Role Phone Unavailable Primary Care Provider Unavailabl e Encounter Details Date Type Department Care Team (Late st Contact Info) Description 08/15/2021 Transcribed Document [facility] [place] [facility] [place] [address] ProviderMaría MD [address] [place] [address] Social History Tobacco Use Types [...] and about to have PEG tube removed [employer]. GI plans for removal today. Pt busy [...]
--- OUTSIDE RECORDS SUMMARY | 2025-01-14 12:41 | XMS_ITS | Encounter Summary ---
Author Organization [employer] ([place], [place], [place], [place]) Address [address] [place] [address] Care Team Providers Care Learning And Development Officer Name Role Phone Unavailable Primary Care Provider Unavailabl e Encounter Details Date Type Department Care Team (Late st Contact Info) Description 08/16/2021 Transcribed Document [facility] [address] [place] [address] ProviderMaría MD [address] [place] [address] Social History Tobacco Use Types [...] CARIN LUCERO/Sex: 1975 Female Med Rec #: [id number] Physician: EDUARD DE LOS SANTOS DO-INT Financial #: [id number] Pt. Type: I Room/Bed: [facility]/ Admit/Disch: 08/14/21 22:53:00 - [facility] [...]
--- OUTSIDE RECORDS SUMMARY | 2025-01-14 12:41 | XMS_ITS | Encounter Summary ---
Author Organization [employer] ([place], [place], [place], [place]) Address [address] [place] [address] Care Team Providers Care Special Diet Cook Name Role Phone Unavailable Primary Care Provider Unavailabl e Encounter Details Date Type Department Care Team (Late st Contact Info) Description 08/16/2021 Transcribed Document [facility] [place] [facility] [place] [address] ProviderMaría MD [address] [place] [address] Social History Tobacco Use Types [...]
--- OUTSIDE RECORDS SUMMARY | 2025-01-14 12:41 | XMS_ITS | Encounter Summary ---
Author Organization [employer] ([place], [place], [place], [place]) Address [address] [place] [address] Care Team Providers Care Disk Grinder Name Role Phone Unavailable Primary Care Provider Unavailabl e Encounter Details Date Type Department Care Team (Late st Contact Info) Description 08/16/2021 Transcribed Document [facility] [place] [facility] [place] [address] ProviderMaría MD [address] [place] [address] Social History Tobacco Use Types [...]
--- OUTSIDE RECORDS SUMMARY | 2025-01-14 12:41 | XMS_ITS | Encounter Summary ---
Author Organization [employer] ([place], [place], [place], [place]) Address [address] [place] [address] Care Team Providers Care Php Mysql Developer Name Role Phone Unavailable Primary Care Provider Unavailabl e Encounter Details Date Type Department Care Team (Late st Contact Info) Description 08/16/2021 Transcribed Document [facility] [place] [facility] [place] [address] ProviderMaría MD [address] [place] [address] Social History Tobacco Use Types [...] On: 08/16/2021 17:33 EDT by JEANNETTE MANCERA, Cushion Maker Care Management Progress Note Discharge Arrangements : [...] Attend Multidisciplinary Rounds? : Yes JEANNETTE MANCERA Cushion Maker - 08/16/2021 17:33 EDT Narrative Progress Note [...] DCP: home with family support. JEANNETTE MANCERA Cushion Maker - 08/16/2021 17:33 EDT documented in this encounter Plan of Treatment Not on file documented as of this encounter Visit Diagnoses Not on filedocumented in this encounter
--- OUTSIDE RECORDS SUMMARY | 2025-01-14 12:41 | XMS_ITS | Encounter Summary ---
Author Organization [employer] ([place], [place], [place], [place]) Address [address] [place] [address] Care Team Providers Care Destination Sign Repairer Name Role Phone Unavailable Primary Care Provider Unavailabl e Encounter Details Date Type Department Care Team (Late st Contact Info) Description 08/15/2021 Transcribed Document [facility] [place] [facility] [place] [address] ProviderMaría MD [address] [place] [address] Social History Tobacco Use [...] Vancomycin HPI: 46 y/o F presenting to [facility] 2/2 abdominal pain w/ infxn around PEG tube site x 3 days. Per provider H&P: pt endorses burning sensation around site & noted redness. Recent hospital stay at [facility] - just discharged x 3 days prior [...] questions. Thank you, Jacinto Baltazar, PharmD PGY1 Chute Boss Pager: [phone], Ext. [phone] documented in this encounter Plan of Treatment Not on file documented as of this encounter Visit Diagnoses Not on filedocumented in this encounter
--- OUTSIDE RECORDS SUMMARY | 2025-01-14 12:41 | XMS_ITS | Encounter Summary ---
Author Organization [employer] ([place], [place], [place], [place]) Address [address] [place] [address] Care Team Providers Care Construction Equipment Technician Name Role Phone Unavailable Primary Care Provider Unavailabl e Encounter Details Date Type Department Care Team (Late st Contact Info) Description 08/16/2021 Transcribed Document [facility] [place] [facility] [place] [address] ProviderMaría MD [address] [place] [address] Social History Tobacco Use Types [...] 08/16/2021 10:53 EDT Electronically signed by Tomeka [facility] Conversion Sales Driver Cerner at 09/18/2022 8:59 AM CDT documented in this encounter Plan of Treatment Not on file documented as of this encounter Visit Diagnoses Not on filedocumented in this encounter
--- OUTSIDE RECORDS SUMMARY | 2025-01-14 12:41 | XMS_ITS | Encounter Summary ---
Author Organization [employer] ([place], [place], [place], [place]) Address [address] [place] [address] Care Team Providers Care Child Support Specialist Name Role Phone Unavailable Primary Care Provider Unavailabl e Encounter Details Date Type Department Care Team (Late st Contact Info) Description 08/16/[address] [facility] [place] [address] [place] [address] ProviderMaría MD [address] [place] [address] Social History Tobacco Use [...]
--- OUTSIDE RECORDS SUMMARY | 2025-01-14 12:41 | XMS_ITS | Encounter Summary ---
Author Organization [employer] ([place], [place], [place], [place]) Address [address] [place] [address] Care Team Providers Care Motel Front Desk Clerk Name Role Phone Unavailable Primary Care Provider Unavailabl e Encounter Details Date Type Department Care Team (Late st Contact Info) Description 08/18/2021 Transcribed Document [facility] [place] [address] [place] [address] ProviderMaría MD [address] [place] [address] Social History Tobacco Use Types [...]
--- OUTSIDE RECORDS SUMMARY | 2025-01-14 12:41 | XMS_ITS | Encounter Summary ---
Author Organization [employer] ([place], [place], [place], [place]) Address [address] [place] [address] Care Team Providers Care Hanger Name Role Phone Unavailable Primary Care Provider Unavailabl e Encounter Details Date Type Department Care Team (Late st Contact Info) Description 08/16/2021 Transcribed Document [facility] [place] [address] [place] [address] ProviderMaría MD [address] [place] [address] Social History Tobacco Use [...] Historical ProviderMD - 08/16/2021 3:00 AM CDT Machinery Mover Details Entered On: 08/16/2021 2:17 EDT Performed [...]
--- OUTSIDE RECORDS SUMMARY | 2025-01-14 12:41 | XMS_ITS | Encounter Summary ---
Author Organization [employer] ([place], [place], [place], [place]) Address [address] [place] [address] Care Team Providers Care Scale Expert Name Role Phone Unavailable Primary Care Provider Unavailabl e Encounter Details Date Type Department Care Team (Late st Contact Info) Description 08/16/2021 Transcribed Document [facility] [place] [address] ProviderMaría MD [address] [place] [address] Social History Tobacco Use [...] of the form. Electronically signed by Tomeka, [facility] Conversion Joinery Patternmaker Cerner at 09/23/2022 8:14 AM CDT documented in this encounter Plan of Treatment Not on file documented as of this encounter Visit Diagnoses Not on filedocumented in this encounter
--- OUTSIDE RECORDS SUMMARY | 2025-01-14 12:41 | XMS_ITS | Encounter Summary ---
Author Organization [employer] ([place], [place], [place], [place]) Address [address] [place] [address] Care Team Providers Care Cook Dessert Name Role Phone Unavailable Primary Care Provider Unavailabl e Encounter Details Date Type Department Care Team (Late st Contact Info) Description 08/15/2021 Transcribed Document [facility] [place] [facility] [place] [address] ProviderMaría MD [address] [place] [address] Social History Tobacco Use Types [...] ER and was managed there. Rapid Response Cook Dessert #1 : EVIE ONEILL RN EVIE ONEILL RN - 08/15/2021 9:02 EDT Electronically signed by Tomeka [facility] Conversion Bracelet And Brooch Maker Cerner at 09/18/2022 9:35 AM CDT documented in this encounter Plan of Treatment Not on file documented as of this encounter Visit Diagnoses Not on filedocumented in this encounter
--- OUTSIDE RECORDS SUMMARY | 2025-01-14 12:41 | XMS_ITS | Encounter Summary ---
Author Organization [employer] ([place], [place], [place], [place]) Address [address] [place] [address] Care Team Providers Care Costumed Character Entertainer Name Role Phone Unavailable Primary Care Provider Unavailabl e Encounter Details Date Type Department Care Team (Late st Contact Info) Description 08/16/2021 Transcribed Document [facility] Family Medicine [address] [place] [address] ProviderMaría MD [address] [place] [address] Social History Tobacco Use Types [...]
--- OUTSIDE RECORDS SUMMARY | 2025-01-14 12:41 | XMS_ITS | Encounter Summary ---
Author Organization [employer] ([place], [place], [place], [place]) Address [address] [place] [address] Care Team Providers Care Log Chain Worker Name Role Phone Unavailable Primary Care Provider Unavailabl e Encounter Details Date Type Department Care Team (Late st Contact Info) Description 08/15/2021 Transcribed Document [facility] Radiology [address] [place] [address] Saleem Jimenes MD [address] [place] [address] Social History Tobacco Use Types Packs/Day [...] mL: 1,500 mg, 250 mL/Hr, IV Piggyback, [id number] Incomplete Depakote ER 500 mg oral tablet, extended release: 1 Tab, Oral, Daily SUMAtriptan 100 mg oral tablet: 100 mg, Oral, Daily Viibryd 40 mg oral tablet: 40 mg, Oral, Daily Wellbutrin XL 300 mg/24 hours oral tablet, extended release: 1 Tab, Oral, [id number] clonazePAM 0.5 mg oral tablet: 0.5 Tab, [...] hours oral tablet, extended release: Tab, Oral, C96DNnm, 0 Refill(s) acetaminophen-HYDROcodone 325 mg-5 mg oral [...] 0.9% 250 mL 1,500 mg, IV Piggyback, U81WCqm Continuous: (1) NaCl 0.9% 1,000 mL 1,000 [...] History of obstructive sleep apnea / IMO [id number] / Confirmed Suicide risk / IMO 08064 / Confirmed, Active Problems (2) History of [...] 32.8 \ Radiology Results (Last 48 hours) [id number] -- 08/14/2021 22:53 CR Chest 1 Vw [...] 250 mL 1,500 mg, IV Piggyback, Inj, K10OQjv, infuse over 60 Minute(s), Start 08/15/21 11:00:00 [...]
--- OUTSIDE RECORDS SUMMARY | 2025-01-14 12:41 | XMS_ITS | Encounter Summary ---
Author Organization [employer] ([place], [place], [place], [place]) Address [address] [place] [address] Care Team Providers Care Utilization Review Nurse Name Role Phone Unavailable Primary Care Provider Unavailabl e Encounter Details Date Type Department Care Team (Late st Contact Info) Description 08/18/2021 Transcribed Document [facility] [place] [facility] [place] [address] ProviderMaría MD [address] [place] [address] Social History Tobacco Use Types [...] respiratory arrest last month and admitted to [facility]. Patient CO2 was reportedly greater than 100. Patient was admitted and eventually had to have a trach and peg placed. Patient was tolerating po intake and was about to have peg tube removed next week. Relevant PMH: peg tube placement, recent respiratory arrest, obstructive sleep apnea, tobacco abuse, morbid obesity. Indication: pain management architect MD: Saleem Jimenes Allergies: metoclopramide Outpatient Pain [...] for this consult, Hany BaumannD, MPH PGY1 Medical Representative Pager: [phone] documented in this encounter Plan of Treatment Not on file documented as of this encounter Visit Diagnoses Not on filedocumented in this encounter
--- OUTSIDE RECORDS SUMMARY | 2025-01-14 12:41 | XMS_ITS | Encounter Summary ---
Author Organization [employer] ([place], [place], [place]) Address [address] [place] [address] Care Team Providers Care Activities Counselor Name Role Phone Unavailable Primary Care Provider Unavailabl e Encounter Details Date Type Department Care Team (Late st Contact Info) Description 08/15/2021 Transcribed Document [facility] [place] [facility] [place] [address] ProviderMaría MD [address] [place] [address] Social History Tobacco Use Types [...] 0.9% 250 mL 1,500 mg, IV Piggyback, [id number] Continuous: (1) NaCl 0.9% 1,000 mL 1,000 [...] (AUG 15 01:00) Electronically signed by Tomeka, [facility] Conversion Ceramics Test Engineer Cerner at 09/18/2022 9:00 AM CDT documented in this encounter Plan of Treatment Not on file documented as of this encounter Visit Diagnoses Not on filedocumented in this encounter
--- OUTSIDE RECORDS SUMMARY | 2025-01-14 12:41 | XMS_ITS | Encounter Summary ---
Author Organization [employer] ([place], [place], [place], [place]) Address [address] [place] [address] Care Team Providers Care Environmental Aide Name Role Phone Unavailable Primary Care Provider Unavailabl e Encounter Details Date Type Department Care Team (Late st Contact Info) Description 08/15/2021 Transcribed Document [facility] [place] [facility] [place] [address] ProviderMaría MD [address] [place] [address] Social History Tobacco Use Types [...] - Historical ProviderMD - 08/15/2021 12:24 AM FORESTRY ADVISER ED Discharge Entered On: 08/15/2021 0:24 EST [...] 08/15/2021 0:24 EST Electronically signed by Tomeka [facility] Conversion It Business Analyst Cerner at 09/18/2022 8:57 AM CDT documented in this encounter Plan of Treatment Not on file documented as of this encounter Visit Diagnoses Not on filedocumented in this encounter
--- OUTSIDE RECORDS SUMMARY | 2025-01-14 12:41 | XMS_ITS | Encounter Summary ---
Author Organization [employer] ([place], [place], [place]) Address [address] [place] [address] Care Team Providers Care Food Service Name Role Phone Unavailable Primary Care Provider Unavailabl e Encounter Details Date Type Department Care Team (Late st Contact Info) Description 08/15/[address] [facility] [place] [address] [place] [address] ProviderMaría MD [address] [place] [id number] Social History Tobacco Use Types Packs/Day Years [...] 7:00 EDT by Sandy Owens [facility] Phone Call for Consults Consult Phone Call/Page Attempt : First call Consult Reason : Infected peg tube Physician Requested for Consult : FARIBA LINARES [facility] Provider Service Notified Name : Gastroenterology Date and Time Call Returned : 08/15/2021 8:19 EDT Sandy Owens [facility] - 08/15/2021 8:19 EDT documented in this encounter Plan of Treatment Not on file documented as of this encounter Visit Diagnoses Not on filedocumented in this encounter
--- OUTSIDE RECORDS SUMMARY | 2025-01-14 12:41 | XMS_ITS | Encounter Summary ---
Author Organization [employer] ([place], [place], [place], [place]) Address [address] [place] [address] Care Team Providers Care Service Car Operator Name Role Phone Unavailable Primary Care Provider Unavailabl e Encounter Details Date Type Department Care Team (Late st Contact Info) Description 08/15/2021 Transcribed Document [facility] [place] [address] [place] [address] ProviderMaría MD [address] [place] [address] Social History Tobacco Use Types [...] Historical ProviderMD - 08/15/2021 3:00 AM CDT Gear Lapper Details Entered On: 08/16/2021 4:44 EDT Performed [...]
--- OUTSIDE RECORDS SUMMARY | 2025-01-14 12:41 | XMS_ITS | Clinical Summary ---
Author Organization [facility] Address [address] [place] [address] Care Team Providers Care Dental Prosthetist Name Role Phone Provider, Unknown Primary Care [...] Vaccination (Every 10 Years) 08/18/203208/03 Insurance MEDICAID [place] Care Teams Dental Prosthetist Relationship Specialty Start Date End Date Provider, Unknown PCP - General 09/12/24
--- OUTSIDE RECORDS SUMMARY | 2025-01-14 12:41 | XMS_ITS | Clinical Summary ---
Author Organization [facility] Address [address] [place] [address] Phone Care Team Providers Care Drying Machine Operator Name Role Phone Unavailable Unavailable Conditions or Problems No information available. Medications No information available. Medications Administered No information available. Allergies, Adverse Reactions, Alerts No information available. Results No information available. Plan of Care No information available. Procedures No information available. Vital Signs No information available. Immunizations No information available. Advance Directives No information available.
--- OUTSIDE RECORDS SUMMARY | 2025-01-14 12:41 | XMS_ITS | Encounter Summary ---
Author Organization [employer] ([place], [place], [place], [place]) Address [address] [place] [address] Care Team Providers Care Polls Or Surveys Interviewer Name Role Phone Unavailable Primary Care Provider Unavailabl e Encounter Details Date Type Department Care Team (Late st Contact Info) Description 08/16/2021 Transcribed Document [facility] [place] [facility] [place] [address] ProviderMaría MD [address] [place] [address] Social History Tobacco Use Types [...] On: 08/16/2021 12:52 EDT by EBEN HURTADO, Railcar Carpenter Primary Insurance Authorization Authorization and Policy Numbers : Insurance 1 Health Plan: [facility] Policy Number: [id number] Authorization Number: Insurance Primary Name : [facility] Policy Number: [id number] Authorization Status-Primary : Admit approved Reference Number-Primary : [id number] Authorization Number-Primary : [id number] Number of Days Authorized-Primary : 4 Day(s) Authorized Service Begin Date-Primary : 08/14/2021 EST Authorized Service End Date-Primary : 08/18/2021 EDT Authorization Comments-Primary : inpt admit approved per fax from [facility] 08/16/21 auth# [id number] NRD 08-19-21 Historical Authorization Comments-Primary : Comment 1: Clinicals submitted on [facility] website for IP approval (ROBERTO CARLOS CISNEROS RN 08/15/2021 12:09) EBEN HURTADO, Railcar Carpenter - 08/16/2021 12:52 EDT Electronically signed by [facility] Conversion Tufter Hand Cerner at 09/18/2022 8:57 AM CDT documented in this encounter Plan of Treatment Not on file documented as of this encounter Visit Diagnoses Not on filedocumented in this encounter
--- OUTSIDE RECORDS SUMMARY | 2025-01-14 12:41 | XMS_ITS | Encounter Summary ---
Author Organization [employer] ([place], [place], [place], [place]) Address [address] [place] [address] Care Team Providers Care News Editor Name Role Phone Unavailable Primary Care Provider Unavailabl e Encounter Details Date Type Department Care Team (Late st Contact Info) Description 08/16/2021 Transcribed Document [facility] [place] [facility] [place] [address] ProviderMaría MD [address] [place] [address] Social History Tobacco Use Types [...] COVID-19 pneumonia, and recent respiratory arrest at [facility] requiring tracheostomy/PEG about a month ago with transfer to [facility]. She was discharged on 08/11. She has been tolerating oral intake and was scheduled to have PEG removed next week. She began having pain around the PEG tube site around 3 days ago with the area becoming more red with burning sensation prompting her to come to [facility] ED on 08/14/21. She denies fever, chills, [...] m - 1,500 mg, IV Piggyback, Inj, H75PEwd, infuse over 60 Minute(s) Anticoagulant enoxaparin (Lovenox) - 40 mg, SubCutaneous, Inj, U70OAxx, Routine Cardiovascular hydrALAZINE - 10 mg, Oral, [...] No tenderness, No deformity. Integumentary: Warm, Dry, [place], No pallor, No rash, PEG tube site [...] ALB L 2.6 (AUG 14) , ACC: [id number] ORDER: Culture Wound and Stain DATE: 08/15/2021 13:10 SOURCE: Drainage SITE: Trachea Reports Pre 08/16/2021 06:24 Culture in progress GS 08/15/2021 20:07 No cells seen No organisms seen. == ACC: [id number] ORDER: Culture Wound and Stain DATE: 08/15/2021 13:01 SOURCE: Surgical Swab SITE: Abdomen Reports Pre 08/16/2021 06:23 Culture in progress GS 08/15/2021 14:15 No organisms seen. Few White Blood Cells == ACC: [id number] ORDER: Culture Blood DATE: 08/14/2021 19:11 SOURCE: Blood SITE: Reports Pre 08/15/2021 23:01 No growth at 1 day. Pre 08/15/2021 16:01 Culture less than 24 Hrs old == ACC: [id number] ORDER: Culture Blood DATE: 08/14/2021 19:11 SOURCE: Blood SITE: Reports Pre 08/15/2021 23:01 No growth at 1 day. Pre 08/15/2021 16:01 Culture less than 24 Hrs old == . Chest x-ray results Radiology Results (Last 48 hours) [id number] -- 08/14/2021 22:53 CR Chest 1 Vw [...] care per GI. 5. Obtain records from [facility] and [facility] and place on chart. 6. Continue oxygen support as needed. Plan has been discussed with patient including side effects of medications and line. At increased risk for side effects of abx and line, and readmission. Discussed in detail with nursing. Electronically signed by Roman Eckert Conversion Fitness And Wellness Instructor Cerner at 09/18/2022 9:28 AM CDT documented in this encounter Plan of Treatment Not on file documented as of this encounter Visit Diagnoses Not on filedocumented in this encounter
--- OUTSIDE RECORDS SUMMARY | 2025-01-14 12:41 | XMS_ITS | Encounter Summary ---
Author Organization [employer] ([place], [place], [place], [place]) Address [address] [place] [address] Care Team Providers Care Applications Manager Name Role Phone Unavailable Primary Care Provider Unavailabl e Encounter Details Date Type Department Care Team (Late st Contact Info) Description 08/18/2021 Transcribed Document [facility] [place] Family Medicine [facility] [place] [address] ProviderMaría MD [address] [place] [address] Social History Tobacco Use Types [...] COVID-19 pneumonia, and recent respiratory arrest at [facility] requiring tracheostomy/PEG about a month ago with transfer to [facility]. She was discharged on 08/11. She has been tolerating oral intake and was scheduled to have PEG removed next week. She began having pain around the PEG tube site around 3 days ago with the area becoming more red with burning sensation prompting her to come to [facility] ED on 08/14/21. She denies [...] mL - 600 mg, IV Piggyback, Inj, [id number], infuse over 30 Minute(s), Routine Anticoagulant enoxaparin (Lovenox) - 40 mg, SubCutaneous, Inj, [id number], Routine Cardiovascular carvedilol - 12.5 mg, Oral, [...] No tenderness, No deformity. Integumentary: Warm, Dry, [place], No pallor, No rash, PEG tube site [...] 18) L 2.6 (AUG 14) , ACC: [id number] ORDER: Culture Wound and Stain DATE: 08/15/2021 [...] cells seen No organisms seen. == ACC: [id number] ORDER: Culture Wound and Stain DATE: 08/15/2021 [...] organisms seen. Few White Blood Cells == [facility]: [id number] ORDER: Culture Blood DATE: 08/14/2021 19:11 SOURCE: Blood SITE: Reports Pre 08/17/2021 23:01 No growth at 3 days. Pre 08/16/2021 23:01 No growth at 2 days. Pre 08/15/2021 23:01 No growth at 1 day. Pre 08/15/2021 16:01 Culture less than 24 Hrs old == ACC: [id number] ORDER: Culture Blood DATE: 08/14/2021 19:11 SOURCE: Blood SITE: Reports Pre 08/17/2021 23:01 No growth at 3 days. Pre 08/16/2021 23:01 No growth at 2 days. Pre 08/15/2021 23:01 No growth at 1 day. Pre 08/15/2021 16:01 Culture less than 24 Hrs old == . Chest x-ray results Radiology Results (Last 48 hours) [id number] -- 08/14/2021 22:53 CR Chest 1 Vw [...] Continue wound care. 5. Obtain records from [facility] and [facility] and place on chart. 6. Continue [...]
--- OUTSIDE RECORDS SUMMARY | 2025-01-14 12:41 | XMS_ITS | Encounter Summary ---
Author Organization [employer] ([place], [place], [place], [place]) Address [address] [place] [address] Care Team Providers Care Supervisor Poultry Farm Name Role Phone Unavailable Primary Care Provider Unavailabl e Encounter Details Date Type Department Care Team (Late st Contact Info) Description 08/15/2021 Transcribed Document [facility] [place] Family Medicine [address] [place] [address] ProviderMaría MD [address] [place] [address] Social History Tobacco Use Types [...] - Historical ProviderMD - 08/15/2021 12:22 AM FOREIGN EXCHANGE TRADER ED Event Note Entered On: 08/15/2021 0:23 EST Performed On: 08/15/2021 0:22 EST by Brittanie Murdock RN ED Event Note ED Event Date/Time : 08/15/2021 0:22 EST ED Description of Event : Patient transported upstairs via stretcher. All of patient belongings taken upstairs. Report was called prior to taking patient upstairs, nothing further needed at this time. Brittanie Murdcok RN - 08/15/2021 0:22 EST documented in this encounter Plan of Treatment Not on file documented as of this encounter Visit Diagnoses Not on filedocumented in this encounter
--- OUTSIDE RECORDS SUMMARY | 2025-01-14 12:41 | XMS_ITS | Encounter Summary ---
Author Organization [employer] ([place], [place], [place], [place]) Address [address] [place] [address] Care Team Providers Care Maintenance Truck Driver Name Role Phone Unavailable Primary Care Provider Unavailabl e Encounter Details Date Type Department Care Team (Late st Contact Info) Description 08/18/2021 Transcribed Document [facility] [place] [facility] [place] [address] ProviderMaría MD [facility] [place] [address] Social History Tobacco Use Types [...] On: 08/18/2021 12:56 EDT by Piper Massey Reflesher Rn Care Management Progress Note Discharge Arrangements [...] Meeting Medical Necessity : Yes Piper Massey, Reflesher Rn - 08/18/2021 12:56 EDT Narrative Progress [...] is home with family support. ERVIN HERNANDEZ, Talent Acquisition Assistant - 08/17/21 15:04:51 HD 3/ELOS 3/RRS low [...] DCP: home with family support. JEANNETTE MANCERA, Talent Acquisition Assistant - 08/16/21 17:36:38 Piper Massey, Reflesher Rn - 08/18/2021 12:56 EDT Electronically signed by Tomeka [facility] Conversion Mobile Nurse Cerner at 09/18/2022 9:32 AM CDT documented in this encounter Plan of Treatment Not on file documented as of this encounter Visit Diagnoses Not on filedocumented in this encounter
--- OUTSIDE RECORDS SUMMARY | 2025-01-14 12:41 | XMS_ITS | Encounter Summary ---
Author Organization [employer] ([place], [place], [place], [place]) Address [address] [place] [address] Care Team Providers Care Knitting Machine Mechanic Name Role Phone Unavailable Primary Care Provider Unavailabl e Encounter Details Date Type Department Care Team (Late st Contact Info) Description 08/16/2021 Transcribed Document [facility] [place] Family Medicine [address] [place] [address] ProviderMaría MD [address] [place] [address] Social History Tobacco Use Types [...]
--- OUTSIDE RECORDS SUMMARY | 2025-01-14 12:41 | XMS_ITS | Encounter Summary ---
Author Organization [employer] ([place], [place], [place], [place]) Address [address] [place] [address] Care Team Providers Care Strategic Client Executive Name Role Phone Unavailable Primary Care Provider Unavailabl e Encounter Details Date Type Department Care Team (Late st Contact Info) Description 08/18/2021 Transcribed Document [facility] [place] [facility] [place] [address] ProviderMaría MD [address] [place] [address] Social History Tobacco Use Types [...] version of the form. Electronically signed by Roman Eckert Conversion Patient Scheduling Coordinator Cerner at 09/18/2022 9:32 AM CDT documented in this encounter Plan of Treatment Not on file documented as of this encounter Visit Diagnoses Not on filedocumented in this encounter
--- OUTSIDE RECORDS SUMMARY | 2025-01-14 12:41 | XMS_ITS | Encounter Summary ---
Author Organization [facility] ([place], [place], [place], [place]) Address [address] [place] [address] Care Team Providers Care Process Trainer Name Role Phone Unavailable Primary Care Provider Unavailabl e Encounter Details Date Type Department Care Team (Late st Contact Info) Description 08/16/2021 Transcribed Document [facility] [place] [address] [place] [address] ProviderMaría MD [address] [place] [address] Social History Tobacco Use [...] Historical ProviderMD - 08/16/2021 9:00 AM CDT [facility] Bi PreOp Summary Primary Physician: LEO DOMINGUEZ MD Finalized Date/Time: 08/16/21 11:09:03 Pt. Name: CARIN LUCERO/Sex: 1975 Female Med Rec #: [id number] Physician: EDUARD DE LOS SANTOS DO-INT Financial #: [id number] Pt. Type: I Room/Bed: [facility]/1 Admit/Disch: 08/14/21 22:53:00 - Institution: [facility] PreOp Case Times Entry 1 In [...] I 08/16/21 11:09 Electronically signed by Tomeka [facility] Conversion Transmission Worker Cerner at 09/18/2022 9:00 AM CDT documented in this encounter Plan of Treatment Not on file documented as of this encounter Visit Diagnoses Not on filedocumented in this encounter
--- OUTSIDE RECORDS SUMMARY | 2025-01-14 12:41 | XMS_ITS | Encounter Summary ---
Author Organization [employer] ([place], [place], [place], [place]) Address [address] [place] [address] Care Team Providers Care Bread Stacker Name Role Phone Unavailable Primary Care Provider Unavailabl e Encounter Details Date Type Department Care Team (Late st Contact Info) Description 08/16/2021 Transcribed Document [facility] [place] Family Medicine [address] [place] [address] ProviderMaría MD [address] [place] [address] Social History Tobacco Use Types [...] Historical ProviderMD - 08/16/2021 11:20 AM CDT [facility] Endo IntraOp Summary Primary Physician: LEO DOMINGUEZ MD Finalized Date/Time: 08/16/21 11:25:45 Pt. Name: CARIN LUCERO D.O.B./Sex: 1975 Female Med Rec #: [id number] Physician: EDUARD DE LOS SANTOS DO-INT Financial #: [id number] Pt. Type: I Room/Bed: [facility]/ Admit/Disch: 08/14/21 22:53:00 - Institution: [facility] Endo - Case Attendance Entry 1 Entry 2 Entry 3 Case Attendee LEO DOMINGUEZ MD MILLER, MELISSA A, RN PRESCOTT, JACHELE, Nursing Home Assistant Role Performed Surgeon/Proceduralist, R Programmer, First Scrub, First First Time In 08/16/21 [...] 5 Case Attendee EDILBERTO PATTERSON MD-DARLENE JUAREZ, PHOTOGRAPHIC EQUIPMENT MECHANIC Role Performed Anesthesiologist of PHOTOGRAPHIC EQUIPMENT MECHANIC/Nurse Housekeeper/Laundry Assistant Record Time In 08/16/21 11:14:00 08/16/21 11:14:00 Time Out 08/16/21 11:28:00 08/16/21 11:28:00 Procedure EGD w Peg Tube Removal EGD w Peg Tube Removal / Change / Change Other Attendee Superficial Wound Closed By: Last Modified By: CARIN HILLS, CARIN WALKER RN 08/16/21 11:25:33 08/16/21 11:25:33 [facility] Endo - Case Attendance Audit 08/16/21 11:25:33 Seat Cover Maker: MONTSE Modifier: REINIERMA 1 <+> Time In [...] Peg Tube Removal / Change 08/16/21 11:16:30 Seat Cover Maker: MONTSE Modifier: MILLERMA <+> 2 Case Attendee <+> 2 Role Performed <+> 2 Procedure <+> 3 Case Attendee <+> 3 Role Performed <+> 3 Procedure <+> 4 Case Attendee <+> 4 Role Performed <+> 4 Procedure <+> 5 Case Attendee <+> 5 Role Performed <+> 5 Procedure [facility] Endo - Case times Entry 1 Patient In Room Time 08/16/21 11:14:00 Out Room Time 08/16/21 11:28:00 Anesthesia Start Time 08/16/21 11:14:00 Stop Time 08/16/21 11:28:00 Surgery / Procedure Times Start Time 08/16/21 11:20:00 Stop Time 08/16/21 11:25:00 Last Modified By: CARIN HILLS RN 08/16/21 11:25:31 [facility] Endo - Case times Audit 08/16/21 11:25:31 Seat Cover Maker: MILLERMA Modifier: MILLERMA <+> 1 Out Room Time <+> 1 Stop Time <+> 1 Stop Time 08/16/21 11:22:00 Seat Cover Maker: REINIERMA Modifier: MILLERMA <+> 1 Start Time [facility] Endo - Delays Entry 1 Delay Reason Other, No Delay Duration 0 Minute(s) Last Modified By: CARIN HILLS RN 08/16/21 11:16:39 [facility] Endo - Departure from OR Entry 1 Integumentary Assessment Integumentary WDL Assessment WDL Transfer/Handoff Transfer to PACU Phase I Handoff Method Bedside/Face to face Post-op Transport Stretcher/Gurney Via Patient Transport CARIN HILLS RN, Accompanied by DARLENE KENNY CRNA Last Modified By: CARIN HILLS RN 08/16/21 11:16:42 [facility] Endo - Endoscopy Details Entry 1 Abdomen Procedure Soft, Non-Tender Assessment Procedure Abdomen 08/16/21 11:16:00 Assessment D/T Radio Frequency Ablation Abdominal Pressure Last Modified By: CARIN HILLS RN 08/16/21 11:16:45 [facility] Endo - Explant Log Entry 1 Explant Log Removal Reason Infection Last Modified By: CARIN HILLS RN 08/16/21 11:18:35 [facility] Endo - Fire Risk Assessment [...] Modified By: CARIN HILLS RN 08/16/21 11:16:48 [facility] Endo - General Case Mosaicist 1 Case Information OR Endo 01 [facility] Case Level 1 Room Verified Yes Wound Class No Incision Specialty Gastroenterology Anesthesia Type General ASA Class 4 Diagnosis Preop Diagnosis infected peg Postop Same As Preop Yes Postop Diagnosis infected peg Wound Class Definitions Last Modified By: CARIN HILLS RN 08/16/21 11:17:34 [facility] Endo - Intraoperative Assessment Entry 1 Valid History / Yes Physical in Chart Preoperative Yes Checklist Reviewed/Evaluated Patient is Latex No Sensitive Level of WDL Consciousness (WDL = Alert, Oriented to Person, Place, and Time) Last Modified By: CARIN HILLS RN 08/16/21 11:17:36 [facility] Endo - Intraoperative Equipment Entry 1 Equipment Intraop Monitoring Electrocardiogram Three lead placement (ECG) Electrode Placement Blood Pressure Arm, left upper Location Pulse Oximeter Hand, right Probe Site Antiembolic Devices Scopes Flexible Endoscopes Gastroscope Used Scope Serial E Number/Identificatio n Number Photo/Video Documentation Photo Yes Video No Last Modified By: CARIN HILLS RN 08/16/21 11:17:43 [facility] Endo - Patient Positioning Entry [...] Modified By: CARIN HILLS RN 08/16/21 11:17:45 [facility] Endo - Sign In Entry 1 Patient, Site, Yes Procedure Identified Surgical Consent Yes Confirmed Surgical Site N/A Marked by person performing procedure Airway Hypothermia Risk No Warming Measures No Taken Last Modified By: CARIN HILLS RN 08/16/21 11:17:51 [facility] Endo - Sign Out Entry [...] Modified By: CARIN HILLS RN 08/16/21 11:25:42 [facility] Endo - Surgical Procedures Entry 1 Procedure EGD w Peg Tube Removal / Change Primary Procedure Yes Primary Surgeon LEO DOMINGUEZ MD Start 08/16/21 11:20:00 Stop 08/16/21 11:25:00 Anesthesia Type General Specialty Gastroenterology Wound Class No Incision Last Modified By: CARIN HILLS RN 08/16/21 11:25:43 [facility] Endo - Surgical Procedures Audit 08/16/21 11:25:43 Seat Cover Maker: [email or web address] Modifier: MONTSE <+> 1 Start <+> 1 Stop [facility] Endo - Time Out Entry [...] RN 08/16/21 11:25 Electronically signed by Tomeka [facility] Conversion Motorcycle Technician Cerner at 09/18/2022 9:26 AM CDT documented in this encounter Plan of Treatment Not on file documented as of this encounter Visit Diagnoses Not on filedocumented in this encounter
--- OUTSIDE RECORDS SUMMARY | 2025-01-14 12:41 | XMS_ITS | Clinical Summary ---
Author Organization [facility] Address [address] [place] [address] Phone Care Team Providers Care Color Dipper Name Role Phone Unavailable Primary Care [...] to complete this topic Insurance [employer] [place] [address] [address] [facility] [facility] [place] [address] [place] [employer] [facility] [place] [address] [address] [facility]
--- OUTSIDE RECORDS SUMMARY | 2025-01-14 12:41 | XMS_ITS | Encounter Summary ---
Author Organization [employer] ([place], [place], [place], [place]) Address [address] [place] [address] Care Team Providers Care Excellence Manager Name Role Phone Unavailable Primary Care Provider Unavailabl e Encounter Details Date Type Department Care Team (Late st Contact Info) Description 08/15/2021 Transcribed Document [facility] [place] Family Medicine [address] [place] [address] ProviderMaría MD [address], [place] [id number] Social History Tobacco Use Types Packs/Day Years [...] On: 08/15/2021 11:49 EDT by Sandy Owens [facility] Phone Call for Consults Consult Phone Call/Page Attempt : First call Consult Reason : Abdominal wall cellulitis Physician Requested for Consult : ERIKA GRANADO MD-INF Provider Service Notified Name : Infectious Disease Date and Time Call Returned : 08/15/2021 13:23 EDT Sandy Owens [facility] - 08/15/2021 13:22 EDT documented in this encounter Plan of Treatment Not on file documented as of this encounter Visit Diagnoses Not on filedocumented in this encounter
--- OUTSIDE RECORDS SUMMARY | 2025-01-14 12:41 | XMS_ITS | Encounter Summary ---
Author Organization [employer] ([place], [place], [place], [place]) Address [address] [place] [address] Care Team Providers Care Tack Coverer Name Role Phone Unavailable Primary Care Provider Unavailabl e Encounter Details Date Type Department Care Team (Late st Contact Info) Description 08/18/2021 Transcribed Document [facility] [place] Family Medicine [address] [place] [address] ProviderMaría MD [address] [place] [address] Social History Tobacco Use Types [...]
--- OUTSIDE RECORDS SUMMARY | 2025-01-14 12:41 | XMS_ITS | Encounter Summary ---
Author Organization [email or web address] ([place], [place], [place], [place]) Address [address] [place] [address] Care Team Providers Care Dragger Out Name Role Phone Unavailable Primary Care Provider Unavailabl e Encounter Details Date Type Department Care Team (Late st Contact Info) Description 08/16/2021 Transcribed Document [facility] Radiology [address] [place] [address] Saleem Jimenes MD [address] [place] [address] Social History Tobacco Use Types Packs/Day [...] mg, 12 mL, 124 mL/Hr, IV Piggyback, [id number] Depakote ER: 500 mg, Oral, Daily Dilaudid: 0.5 mg, IV Push, Q2H, PRN: Pain (Severe 7-10) Dulcolax Laxative: 5 mg, Oral, Daily, PRN: Constipation DuoNeb 0.5 mg-2.5 mg/3 mL inhalation solution: 3 mL, Nebulized Inhalation, RT_Q6H, PRN: Shortness of Breath Geodon: 40 mg, Oral, Daily Imitrex: 100 mg, Oral, Daily LaMICtal: 100 mg, Oral, Daily Lovenox: 40 mg, SubCutaneous, [id number] MiraLax: 17 Gram, Oral, Daily, PRN: Constipation [...] hours oral tablet, extended release: Tab, Oral, [id number], 0 Refill(s) acetaminophen-HYDROcodone 325 mg-5 mg oral [...] mL 600 mg 12 mL, IV Piggyback, D28GHah divalproex sodium ER 500 mg tab 500 mg 1 Tab, Oral, Daily enoxaparin 40 mg/0.4 mL inj 40 mg 0.4 mL, SubCutaneous, Y68WUeb famotidine 20 mg/2 mL inj 20 mg [...] History of obstructive sleep apnea / IMO [id number] / Confirmed Suicide risk / IMO 23342 / Confirmed, Active Problems (2) History of [...] 31.7 \ Radiology Results (Last 48 hours) [id number] -- 08/14/2021 22:53 CR Chest 1 Vw [...] 50 mL 600 mg, IV Piggyback, Inj, P09HMyr, infuse over 30 Minute(s), Routine, Start 08/17/21 9:00:00 EDT, 124 mL/Hr, Indication: Skin and Skin Structure Infection ERIKA GRANADO MD-INF divalproex sodium (Depakote ER) 500 mg, Oral, ER Tab, Daily, Start 08/15/21 11:44:00 EDT SALEEM JIMENES MD-INT enoxaparin (Lovenox) 40 mg, SubCutaneous, Inj, G27VGko, Routine, Start 08/15/21 12:00:00 EDT, 08/15/21 12:21:00 [...] 250 mL 1,500 mg, IV Piggyback, Inj, K43PUvy, infuse over 60 Minute(s), Start 08/15/21 11:00:00 [...]
--- OUTSIDE RECORDS SUMMARY | 2025-01-14 12:41 | XMS_ITS | Encounter Summary ---
Author Organization [employer] ([place], [place], [place], [place]) Address [address] [place] [address] Care Team Providers Care Prisoner Classification Interviewer Name Role Phone Unavailable Primary Care Provider Unavailabl e Encounter Details Date Type Department Care Team (Late st Contact Info) Description 08/15/2021 Transcribed Document [facility] [place] Family Medicine [address] [place] [address] ProviderMaría MD [address] [place] [address] Social History Tobacco Use Types [...] Sandrine Blount Lpn - 08/15/2021 18:38 EDT Electronically signed by Roman Eckert Conversion Button Decorating Machine Operator Cerner at 09/18/2022 9:31 AM CDT documented in this encounter Plan of Treatment Not on file documented as of this encounter Visit Diagnoses Not on filedocumented in this encounter
--- OUTSIDE RECORDS SUMMARY | 2025-01-14 12:41 | XMS_ITS | Encounter Summary ---
Author Organization [employer] ([place], [place], [place], [place]) Address [address] [place] [address] Care Team Providers Care Plate Mounter Name Role Phone Unavailable Primary Care Provider Unavailabl e Encounter Details Date Type Department Care Team (Late st Contact Info) Description 08/18/2021 Transcribed Document [facility] [place] Medicine [address] [place] [address] ProviderMaría MD [address] [place] [address] Social History Tobacco Use Types [...] Historical ProviderMD - 08/18/2021 3:00 AM CDT Par[employer] Post Car[employer] Details Entered On: 08/18/2021 2:01 EDT Performed [...]
--- OUTSIDE RECORDS SUMMARY | 2025-01-14 12:41 | XMS_ITS | Encounter Summary ---
Author Organization [employer] ([place], [place], [place], [place]) Address [address] [place] [address] Care Team Providers Care Powerplant Operator Name Role Phone Unavailable Primary Care Provider Unavailabl e Encounter Details Date Type Department Care Team (Late st Contact Info) Description 08/16/2021 Transcribed Document [facility] [place] [facility] [place] [address] ProviderMaría MD [address] [place] [address] Social History Tobacco Use Types [...]
--- OUTSIDE RECORDS SUMMARY | 2025-01-14 12:41 | XMS_ITS | Encounter Summary ---
Author Organization [employer] ([place], [place], [place], [place]) Address [address] [place] [address] Care Team Providers Care Buggy Ladle Tender Name Role Phone Unavailable Primary Care Provider Unavailabl e Encounter Details Date Type Department Care Team (Late st Contact Info) Description 08/17/2021 Transcribed Document [facility] [place] [facility] [place] [address] ProviderMaría MD [address] [place] [address] Social History Tobacco Use Types [...] pneumonia, and recent respiratory arrest at [facility] requiring tracheostomy/PEG about a month ago with transfer to [facility]. She was discharged on 08/11. She has been tolerating oral intake and was scheduled to have PEG removed next week. She began having pain around the PEG tube site around 3 days ago with the area becoming more red with burning sensation prompting her to come [facility] ED on 08/14/21. She denies fever, chills, [...] mL - 600 mg, IV Piggyback, Inj, [id number], infuse over 30 Minute(s), Routine Anticoagulant enoxaparin (Lovenox) - 40 mg, SubCutaneous, Inj, B58ARug, Routine Cardiovascular carvedilol - 12.5 mg, Oral, [...] No tenderness, No deformity. Integumentary: Warm, Dry, [place], No pallor, No rash, PEG tube site [...] ALB L 2.6 (AUG 14) , ACC: [id number] ORDER: Culture Wound and Stain DATE: 08/15/2021 13:10 SOURCE: Drainage SITE: Trachea Reports Pre 08/17/2021 09:53 Moderate Growth Coagulase Negative Staphylococcus Moderate Growth Coagulase Negative Staphylococcus #2 Pre 08/16/2021 06:24 Culture in progress GS 08/15/2021 20:07 No cells seen No organisms seen. == ACC: [id number] ORDER: Culture Wound and Stain DATE: 08/15/2021 13:01 SOURCE: Surgical Swab SITE: Abdomen Reports Pre 08/17/2021 10:23 Moderate Growth Coagulase Negative Staphylococcus Moderate Growth Enterococcus species Pre 08/17/2021 09:46 Moderate Growth Coagulase Negative Staphylococcus Moderate Growth Gamma Hemolytic Streptococcus Pre 08/16/2021 06:23 Culture in progress GS 08/15/2021 14:15 No organisms seen. Few White Blood Cells == ACC: [id number] ORDER: Culture Blood DATE: 08/14/2021 19:11 SOURCE: Blood SITE: Reports Pre 08/16/2021 23:01 No growth at 2 days. Pre 08/15/2021 23:01 No growth at 1 day. Pre 08/15/2021 16:01 Culture less than 24 Hrs old == ACC: [id number] ORDER: Culture Blood DATE: 08/14/2021 19:11 SOURCE: [...] Continue wound care. 5. Obtain records from [facility] and [facility] and place on chart. 6. Continue [...]
--- OUTSIDE RECORDS SUMMARY | 2025-01-14 12:41 | XMS_ITS | Encounter Summary ---
Author Organization [employer] ([place], [place], [place], [place]) Address [address] [place] [address] Care Team Providers Care Powder Shoveler Name Role Phone Unavailable Primary Care Provider Unavailabl e Encounter Details Date Type Department Care Team (Late st Contact Info) Description 08/16/2021 Transcribed Document [facility] [place] [facility] [place] [address] ProviderMaría MD [address] [place] [address] Social History Tobacco Use Types [...] Review HPI: 46 y/o F presenting to [facility] 2/2 abdominal pain w/ infxn around PEG tube site x 3 days. Per provider H&P: pt endorses burning sensation around site & noted redness. Recent hospital stay at [facility] - just discharged x 3 days prior to admission at [facility]. PMH significant for PEG tube placement, [...] 5.) Pharmacy will continue to follow. Bia Antione, IbisD, BCPS will return to pain management service tomorrow for review as well. Thank you, Jacinto Baltazar, IbisD PGY1 Hammer Runner Pager: [phone], Ext. [phone] documented in this encounter Plan of Treatment Not on file documented as of this encounter Visit Diagnoses Not on filedocumented in this encounter
--- OUTSIDE RECORDS SUMMARY | 2025-01-14 12:42 | XMS_ITS | Encounter Summary ---
Author Organization [employer] ([place], [place], [place], [place]) Address [address] [place] [address] Care Team Providers Care Outbound Supervisor Name Role Phone Unavailable Primary Care Provider Unavailabl e Encounter Details Date Type Department Care Team (Late st Contact Info) Description 09/30/2021 Transcribed Document [facility] [place] [facility] [address] ProviderMaría MD [address] [place] [address] Social History Tobacco Use Types [...] 16:27:00, rate 84, normal sinus rhythm, normal VA & QRS intervals, EP Interp, No STEMI. [...] 17.6 % LOW Lymph # 1.25 x10(3)/uL [place] % 6.9 % [place] # 0.49 K/uL Eos % 0.4 % [...] 09/30/2021 19:00:00, TONJA REED MD. Prescriptions: Prescription Looping Machine Operator Pharmacy: doxycycline monohydrate 100 mg oral tablet (Prescribe): 1 Tab, Oral, BID, for 10 Day(s), 20 Tab, 0 Refill(s) Tussionex PennKinetic 10 mg-8 mg/5 mL oral suspension, extended release (Prescribe): 5 mL, Oral, Q12H, for 5 Day(s), 50 mL, 0 Refill(s) , [facility] [id number] . Patient was given the following educational [...]
--- OUTSIDE RECORDS SUMMARY | 2025-01-14 12:42 | XMS_ITS | Encounter Summary ---
Author Organization [email or web address] ([place], [place], [place], [place]) Address [address] [place] [address] Care Team Providers Care Customer Service Receptionist Name Role Phone Unavailable Primary Care Provider Unavailabl e Encounter Details Date Type Department Care Team (Late st Contact Info) Description 08/15/2021 Transcribed Document [facility] [place] [address] [place] [address] ProviderMaría MD [address] [place] [address] Social History Tobacco Use Types [...] - Historical ProviderMD - 08/15/2021 12:00 AM TRANSFILL TECHNICIAN ED Event Note Entered On: 08/15/2021 0:00 [...]
--- OUTSIDE RECORDS SUMMARY | 2025-01-14 12:42 | XMS_ITS | Encounter Summary ---
Author Organization [employer] ([place], [place], [place], [place]) Address [address] [place] [address] Care Team Providers Care Scenic Artist Name Role Phone Unavailable Primary Care Provider Unavailabl e Encounter Details Date Type Department Care Team (Late st Contact Info) Description 09/30/2021 Transcribed Document [facility] [place] [facility] [place] [address] ProviderMaría MD [address] [place] [address] Social History Tobacco Use [...] Communication Barrier : None Primary Language : Kyrgyz Any Spiritual/Cultural Needs or Requests : No [...]
--- OUTSIDE RECORDS SUMMARY | 2025-01-14 12:42 | XMS_ITS | Encounter Summary ---
Author Organization [employer] ([place], [place], [place], [place]) Address [address] [place] [address] Care Team Providers Care Serology Teacher Name Role Phone Unavailable Primary Care Provider Unavailabl e Encounter Details Date Type Department Care Team (Late st Contact Info) Description 08/14/2021 Transcribed Document [facility] [place] [facility] [place] [address] ProviderMaría MD [address] [place] [address] Social History Tobacco Use Types [...] - Historical ProviderMD - 08/14/2021 10:30 PM ASSEMBLY LINE LEADER Patient: CARIN LUCERO Age: 46 years Sex: [...] arrest last month and was admitted to [facility]. Patient CO2 was reportedly greater than 100. Patient was admitted and eventually had to have a trach and PEG placed. Patient was transferred from [place] and was admitted at [facility], recently just being discharged 3 days ago. [...] hours oral tablet, extended release: Tab, Oral, [id number], 0 Refill(s) gabapentin 800 mg oral tablet: [...] hours oral tablet, extended release , Oral, [id number] Zofran ODT 4 mg oral tablet, disintegrating [...] Radiology results Radiology Results (Last 48 hours) [id number] -- 08/14/2021 22:53 CT Abdomen Pelvis W [...]
--- OUTSIDE RECORDS SUMMARY | 2025-01-14 12:42 | XMS_ITS | Encounter Summary ---
Author Organization [employer] ([place], [place], [place], [place]) Address [address] [place] [address] Care Team Providers Care Transportation Attendant Name Role Phone Unavailable Primary Care Provider Unavailabl e Encounter Details Date Type Department Care Team (Late st Contact Info) Description 09/30/2021 Transcribed Document [facility] [place] [facility] [place] [address] ProviderMaría MD [address] [place] [address] Social History Tobacco Use Types [...] 8:30 PM CDT Electronically signed by [facility] Conversion Business Assistant Avery at 09/18/2022 9:34 AM CDT documented in this encounter Plan of Treatment Not on file documented as of this encounter Visit Diagnoses Not on filedocumented in this encounter
--- OUTSIDE RECORDS SUMMARY | 2025-01-14 12:42 | XMS_ITS | Encounter Summary ---
Author Organization [employer] ([place], [place], [place], [place]) Address [address] [place] [address] Care Team Providers Care Obstetrics Gyn Physician Name Role Phone Unavailable Primary Care Provider Unavailabl e Encounter Details Date Type Department Care Team (Late st Contact Info) Description 08/19/2021 Transcribed Document [facility] [facility] [place] [address] ProviderMaría MD [address] [place] [address] Social History Tobacco Use Types [...] On: 08/19/2021 13:01 EDT by Anum Christopher, NEWSPAPER COLUMNIST Patient Resource Center Provider Status : EST Other Established Provider Name : Beny Chris Patient Phone Number : [phone] Patient Insurance Type : Medicaid (ex. [employer], [...] at ED : Other Primary Language : Ukrainian Patient Resource Center Comment : Patient needed primary care follow up appointment. Primary care follow up appointment has been made. Follow Up Needed : Anum Moscoso, NEWSPAPER COLUMNIST - 08/19/2021 13:01 EDT documented in this encounter Plan of Treatment Not on file documented as of this encounter Visit Diagnoses Not on filedocumented in this encounter
--- OUTSIDE RECORDS SUMMARY | 2025-01-14 12:42 | XMS_ITS | Encounter Summary ---
Author Organization [employer] ([place], [place], [place], [place]) Address [address] [place] [address] Care Team Providers Care Plate Cutter Name Role Phone Unavailable Primary Care Provider Unavailabl e Encounter Details Date Type Department Care Team (Late st Contact Info) Description 08/14/2021 Transcribed Document [facility] [place] [facility] [place] [address] ProviderMaría MD [facility] [place] [address] Social History Tobacco Use Types [...] - Historical Provider, - 08/14/2021 11:00 PM FARM MANAGEMENT ADVISER Admission History, Adult Entered On: 08/15/2021 3:13 [...] Meredith Emergency Contact #1 Phone Number : [phone] Emergency Contact #1 Relationship : Mother Emergency [...] Obtained From : Patient Primary Language : Chilean Communication Barrier : None Receptionist Telephone Operator Needed : No Venkat Chow Lpn - [...] Scale Risk Level : 25-45 Medium Risk [place] Fall Interventions : Adequate lighting, Bed in [...] Scale Calc Temp : 1 Venkat Chow [facility] - 08/15/2021 1:53 EST Health Histories Smoking [...] Source : Estimated Height Entry Format : [place] Height, Feet : 5 ft(Converted to: 152 cm, 60 Inch) Height, Inches : 1 Inch(Converted to: 0 ft 1 Inch, 2.54 cm) Clinical Height : 154.94 cm Weight Source : Bed scale Weight Entry Format : [place] Clinical Dosing Weight : 138.64 kg Weight, Pounds : 305 lb Body Surface Area (BSA) : 2.26 m2 Body Mass Index : 57.8 kg/m2 (>HHI) [place] Body Weight : 47 kg Venkat Chow [facility] 08/15/2021 1:53 EST Infectious Disease History Does [...] a COVID-19 Vaccine? : No Venkat Chow News Clerk - 08/15/2021 1:53 EST Infectious Disease Risk [...] at risk Venkat ChowMariano 08/15/2021 1:53 EST [place] Suicide Severity Rating Scale (C-SSRS) CSSRS Past [...] EST Electronically signed by Roman Eckert Conversion Technical Specialist [employer] Cerner at 09/18/2022 9:00 AM CDT documented in this encounter Plan of Treatment Not on file documented as of this encounter Visit Diagnoses Not on filedocumented in this encounter
--- OUTSIDE RECORDS SUMMARY | 2025-01-14 12:42 | XMS_ITS | Clinical Summary ---
Author Organization [facility] Address [address] [place] [address] Phone Care Team Providers Care Consulting It Architect Name Role Phone Unavailable Primary Care [...]
--- OUTSIDE RECORDS SUMMARY | 2025-01-14 12:42 | XMS_ITS | Encounter Summary ---
Author Organization [employer] ([place], [place], [place], [place]) Address [address] [place] [address] Care Team Providers Care Chemical Production Machine Operator Name Role Phone Unavailable Primary Care Provider Unavailabl e Encounter Details Date Type Department Care Team (Late st Contact Info) Description 10/01/2021 Transcribed Document [facility] [place] Family [place] [address] [place] [address] ProviderMaría MD [address] [place] [address] Social History Tobacco Use Types [...]
--- OUTSIDE RECORDS SUMMARY | 2025-01-14 12:42 | XMS_ITS | Clinical Summary ---
Author Organization [employer] ([place], [place], [place], [place]) Address [address] [place] [address] Care Team Providers Care Investment Associate Name Role Phone Unavailable Primary Care [...]
--- OUTSIDE RECORDS SUMMARY | 2025-01-14 12:42 | XMS_ITS | Referral Summary ---
Author Organization [employer] ([place], [place], [place], [place]) Address [address] [place] [address] Care Team Providers Care Corrosion Control Specialist Name Role Phone Unavailable Primary Care [...]
--- OUTSIDE RECORDS SUMMARY | 2025-01-14 12:42 | XMS_ITS | Encounter Summary ---
Author Organization [employer] ([place], [place], [place], [place]) Address [address] [place] [address] Care Team Providers Care Director Medical Affairs Name Role Phone Unavailable Primary Care Provider Unavailabl e Encounter Details Date Type Department Care Team (Late st Contact Info) Description 08/19/2021 Transcribed Document [facility] [place] [address] [place] [address] ProviderMaría MD [address] [place] [address] Social History Tobacco Use Types [...]
--- OUTSIDE RECORDS SUMMARY | 2025-01-14 12:42 | XMS_ITS | Encounter Summary ---
Author Organization [employer] ([place], [place], [place], [place]) Address [address] [place] [address] Care Team Providers Care Case Folder Name Role Phone Unavailable Primary Care Provider Unavailabl e Encounter Details Date Type Department Care Team (Late st Contact Info) Description 08/15/2021 Transcribed Document [facility] [place] [address] [place] [address] ProviderMaría MD [address] [place] [address] Social History Tobacco Use [...] - Historical ProviderMD - 08/15/2021 12:39 AM RN COMMUNITY Meds to Bed Enrollment Entered On: 08/16/2021 10:36 EDT Performed On: 08/15/2021 0:39 EST by Jose Maria Freeman, Immigration Investigator Cert Lead Meds to Bed Enrollment Patient Enrollment Decision: : Yes/enroll in meds to bed program Jose Maria Freeman Immigration Investigator Cert Lead - 08/16/2021 10:36 EDT documented in this encounter Plan of Treatment Not on file documented as of this encounter Visit Diagnoses Not on filedocumented in this encounter
--- OUTSIDE RECORDS SUMMARY | 2025-01-14 12:42 | XMS_ITS | Encounter Summary ---
Author Organization [employer] ([place], [place], [place], [place]) Address [address] [place] [address] Care Team Providers Care Hematologist Name Role Phone Unavailable Primary Care Provider Unavailabl e Encounter Details Date Type Department Care Team (Late st Contact Info) Description 08/14/2021 Transcribed Document [facility] [place] [facility] [place] [address] ProviderMaría MD [address] [place] [address] Social History Tobacco Use Types [...] - Historical ProviderMD - 08/14/2021 6:43 PM WAX ENGRAVER ED Triage Entered On: 08/14/2021 19:02 EST [...] : 2 - Emergent Tracking Group : [facility] ED CORTEZ CERVANTES RN - 08/14/2021 18:55 [...] PNED ; Probability: 0 ; Diagnosis Code: [id number] ED Height and Weight Height Source : Stated Height Entry Format : [place] Height, Feet : 5 ft(Converted to: 152 cm, 60 Inch) Height, Inches : 1 Inch(Converted to: 0 ft 1 Inch, 2.54 cm) Clinical Height : 154.94 cm Weight Source, ED : Critical estimated dosing weight Weight Entry Format : [place] Weight, Pounds : 305 lb Clinical Dosing Weight : 138.64 kg Body Surface Area (BSA) : 2.26 m2 Body Mass Index : 57.8 kg/m2 (>HHI) [place] Body Weight (IBW) : 47.45 kg CORTEZ [...]
--- OUTSIDE RECORDS SUMMARY | 2025-01-14 12:42 | XMS_ITS | Encounter Summary ---
Author Organization [employer] ([place], [place], [place], [place]) Address [address] [place] [address] Care Team Providers Care Director Utilization Management Name Role Phone Unavailable Primary Care Provider Unavailabl e Encounter Details Date Type Department Care Team (Late st Contact Info) Description 09/30/2021 Transcribed Document [facility] [place] [facility] [place] [address] ProviderMaría MD [address] [place] [address] Social History Tobacco Use Types [...] : 2 - Emergent Tracking Group : [facility] ED Leo Belle RN - 09/30/2021 16:24 EDT Mode of Arrival : Stretcher Transported to ED by : Ambulance/ALS EMS Service : [facility] To Room Via : Stretcher Accompanied By [...] Problems(Active) History of obstructive sleep apnea (IMO :[id number] ) Name of Problem: History of obstructive sleep apnea ; Recorder: SYSTEM, SYSTEM; Confirmation: Confirmed ; Classification: Medical ; Code: [id number] ; Last Updated: 08/15/2021 3:13 EDT ; Life Cycle Date: 08/15/2021 ; Life Cycle Status: Active ; Vocabulary: IMO Suicide risk (IMO :[id number] ) Name of Problem: Suicide risk ; Recorder: SYSTEM, SYSTEM; Confirmation: Confirmed ; Classification: Medical ; Code: 88309 ; Last Updated: 08/15/2021 3:13 EDT ; Life Cycle Date: 08/15/2021 ; Life Cycle Status: Active ; Vocabulary: IMO Diagnoses(Active) Shortness of breath Date: 09/30/2021 ; Diagnosis Type: Reason For Visit ; Confirmation: Complaint of ; Clinical Dx: Shortness of breath ; Classification: Medical ; Clinical Service: Non-Specified ; Code: PNED ; Probability: 0 ; Diagnosis Code: [id number] ED Height and Weight Height Source : Stated Height Entry Format : [place] Height, Feet : 5 ft(Converted to: 152 cm, 60 Inch) Height, Inches : 1 Inch(Converted to: 0 ft 1 Inch, 2.54 cm) Clinical Height : 154.94 cm Weight Source, ED : Critical estimated dosing weight Weight Entry Format : [place] Weight, Pounds : 330 lb Clinical Dosing Weight : 150 kg Body Surface Area (BSA) : 2.34 m2 Body Mass Index : 62.5 kg/m2 (>HHI) [place] Body Weight (IBW) : 47.45 kg Leo Belle RN - 09/30/2021 16:24 EDT documented in this encounter Plan of Treatment Not on file documented as of this encounter Visit Diagnoses Not on filedocumented in this encounter
--- OUTSIDE RECORDS SUMMARY | 2025-01-14 12:42 | XMS_ITS | Encounter Summary ---
Author Organization [employer] ([place], [place], [place], [place]) Address [address] [place] [address] Care Team Providers Care Machine Printer Hose Name Role Phone Unavailable Primary Care Provider Unavailabl e Encounter Details Date Type Department Care Team (Late st Contact Info) Description 08/19/2021 Transcribed Document [facility] Radiology [address] [place] [address] Saleem Jimenes MD [address] [place] [address] Social History Tobacco Use Types Packs/Day [...] 08/19/2021 16:06 Primary Care Provider EMY MUSA (REF)MD-[facility] Discharge Diagnosis: Anterior abdominal wall cellulitis [...] arrest last month and was admitted to [facility]. Patient CO2 was reportedly greater than 100. Patient was admitted and eventually had to have a trach and PEG placed. Patient was transferred from [place] and was admitted at [facility], recently just being discharged 3 days [...] Home Discharge Follow Up EMY MUSA (REF), -[facility] - 11:30 AM Discharge Medications (18) [...]
--- OUTSIDE RECORDS SUMMARY | 2025-01-14 12:42 | XMS_ITS | Encounter Summary ---
Author Organization [employer] ([place], [place], [place], [place]) Address [address] [place] [address] Care Team Providers Care Director Of Construction Name Role Phone Unavailable Primary Care Provider Unavailabl e Encounter Details Date Type Department Care Team (Late st Contact Info) Description 08/15/2021 Transcribed Document [facility] [place] Medicine [facility] [place] [address] ProviderMaría MD [address] [place] [address] Social History Tobacco Use Types [...] date secondary to pain and frustration HEMA EMTCALF, PT - 08/17/2021 15:26 EDT Functional Mobility [...] CASANDRA METCALFYN, PT - 08/17/2021 15:26 EDT [facility] Goals Mobility/Bed Mobility LTG PT Grid Goal [...] EDT Electronically signed by T[facility]ka [facility] Conversion Rug Touch Up Painter Cerner at 09/23/2022 8:15 AM CDT documented in this encounter Plan of Treatment Not on file documented as of this encounter Visit Diagnoses Not on filedocumented in this encounter
--- OUTSIDE RECORDS SUMMARY | 2025-01-14 12:42 | XMS_ITS | Encounter Summary ---
Author Organization [employer] ([place], [place], [place], [place]) Address [address] [place] [address] Care Team Providers Care Counseling Center Manager Name Role Phone Unavailable Primary Care Provider Unavailabl e Encounter Details Date Type Department Care Team (Late st Contact Info) Description 08/15/2021 Transcribed Document [facility] [place] [address] [place] [address] ProviderMaría MD [address] [place] [address] Social History Tobacco Use Types [...] On: 08/15/2021 13:29 EDT by EBEN STEPHENS, RN-Private Mortgage Banker Safe Initial Assessment I Previously Documented Living Environment : No qualifying data available. Living Situation : Home Patient Lives With : Parent(s) Emergency Contact #1 : Kallie Meredith Emergency Contact #1 Phone Number : [phone] Emergency Contact #1 Relationship : Mother/hcs Emergency Contact #2 : NA Emergency Contact #2 Phone Number : NA Emergency Contact #2 Relationship : NA Identified Medical Decision Maker : Kallie Meredith Identified Medical Decision Maker Enter Doctors Name : Beny Chris MD Does Patient have PCP Listed? : Yes Medical Durable Power of Building Code Administrator Name : no Legal Guardian : No Date Hospital Obtained Advance Directive : 08/15/2021 EST Is Guardianship Needed : No EBEN STEPHENS RN-Private Mortgage Banker Safe - 08/15/2021 13:29 EDT Initial Assessment II Sensory and Motor Deficits : Weakness Current Home Treatments and Equipment : Oxygen therapy, Tracheostomy care, Walker Home Equipment Contact Information : [facility] [phone] Does the Patient have a Floor to SNF Benefit? : No EBEN STEPHENS RN-Private Mortgage Banker Safe - 08/15/2021 13:29 EDT Discharge Needs I Anticipated Discharge Date : 08/18/2021 EDT Anticipated Discharge To, CM : Home with home health, Rehabilitation Unit Current Home Treatment/Equipment : Current Home Treatment/Equipment No qualifying data available. Post Acute/Home Treatments : Oxygen therapy, Tracheostomy care, Walker Documentation Status Complete : Yes EBEN STEPHENS RN-Private Mortgage Banker Safe - 08/15/2021 13:29 EDT Discharge Needs II Professional Skilled Services : Professional Skilled Services No qualifying data available. Needs Assistance with Transportation : No Discharge Options Discussed with Patient : Acute rehabilitation, Home Health Patient Discharge Goal : Home health care EBEN STEPHENS RN-Private Mortgage Banker Safe - 08/15/2021 13:29 EDT Narrative Note Narrative [...] spoke with Ms. Badillo. she resides in [place] with mom Kallie. has mentioned equipment to include trach & humidified air provided by [facility]. had bipap in past provided by [employer] not now as has trach. no hh. [facility]. dcp: acute rehab vs hh. she is adamant about going home. she would consider home health. would like shower chair on dc. she advises mom is poa/hcs. mom to bring copy of document. Kallie Spencer, mom, spoke with Ramesh, bedside RN. alert to family bringing living will EBEN STEPHENS, RN-Private Mortgage Banker Safe - 08/15/2021 13:29 EDT Electronically signed by Roman Eckert Conversion Air Pollution Compliance Inspector Cerner at 09/18/2022 8:57 AM CDT documented in this encounter Plan of Treatment Not on file documented as of this encounter Visit Diagnoses Not on filedocumented in this encounter
--- OUTSIDE RECORDS SUMMARY | 2025-01-14 12:42 | XMS_ITS | Encounter Summary ---
Author Organization [employer] ([place], [place], [place], [place]) Address [address] [place] [address] Care Team Providers Care Air Value Tester Name Role Phone Unavailable Primary Care Provider Unavailabl e Encounter Details Date Type Department Care Team (Late st Contact Info) Description 08/14/2021 Transcribed Document [facility] [place] [facility] [place] [address] ProviderMaría MD [facility] [place] [address] Social History Tobacco Use Types [...] - Historical ProviderMD - 08/14/2021 8:44 PM ELECTRIC RAZOR ASSEMBLER Pain Assessment Entered On: 08/14/2021 21:38 EST [...] form. Electronically signed by Roman Eckert Conversion Liability Claims Representative Cerner at 09/18/2022 9:23 AM CDT documented in this encounter Plan of Treatment Not on file documented as of this encounter Visit Diagnoses Not on filedocumented in this encounter
--- OUTSIDE RECORDS SUMMARY | 2025-01-14 12:42 | XMS_ITS | Encounter Summary ---
Author Organization [employer] ([place], [place], [place], [place]) Address [address] [place] [address] Care Team Providers Care Nutrition Services Worker Name Role Phone Unavailable Primary Care Provider Unavailabl e Encounter Details Date Type Department Care Team (Late st Contact Info) Description 08/14/2021 Transcribed Document [facility] [place] Family Medicine [address] [place] [address] ProviderMaría MD [address] [place] [address] Social History Tobacco Use Types [...] - Historical ProviderMD - 08/14/2021 9:36 PM EXTENSION EDUCATOR ED Event Note Entered On: 08/14/2021 21:37 [...] 08/14/2021 21:36 EST Electronically signed by Tomeka [facility] Conversion Cloth Colors Examiner Cerner at 09/18/2022 9:34 AM CDT documented in this encounter Plan of Treatment Not on file documented as of this encounter Visit Diagnoses Not on filedocumented in this encounter
--- OUTSIDE RECORDS SUMMARY | 2025-01-14 12:42 | XMS_ITS | Clinical Summary ---
Author Organization [facility] Address [address] [place] [address] Care Team Providers Care Model Maker Scale Name Role Phone Mario Sher MD Primary Care Provider [phone] Allergies Active Allergy Reactions Criticality Noted Date [...] or Tdap) 08/18/[address] [place] [address] MEDICAID [place] Care Teams Model Maker Scale Relationship Specialty Start Date End Date Mario Sher MD [facility] [address] ALLIEBANNER MD [facility] [place] [address] PCP - General Family Medicine 09/16/24
--- OUTSIDE RECORDS SUMMARY | 2025-01-14 12:42 | XMS_ITS | Encounter Summary ---
Author Organization [employer] ([place], [place], [place], [place]) Address [address] [place] [address] Care Team Providers Care Senior Engineering Associate Name Role Phone Unavailable Primary Care Provider Unavailabl e Encounter Details Date Type Department Care Team (Late st Contact Info) Description 08/14/2021 Transcribed Document [facility] [place] [facility] [place] [address] ProviderMaría MD [address] [place] [address] Social History Tobacco Use Types [...] - Historical ProviderMD - 08/14/2021 6:43 PM LEAF TIER ED Assessment Entered On: 08/14/2021 21:48 EST [...] Communication Barrier : None Primary Language : Estonian Any Spiritual/Cultural Needs or Requests : No [...] 08/14/2021 21:41 EST Electronically signed by Tomeka [facility] Conversion Cnc Mill Programmer Cerner at 09/18/2022 8:52 AM CDT documented in this encounter Plan of Treatment Not on file documented as of this encounter Visit Diagnoses Not on filedocumented in this encounter
--- OUTSIDE RECORDS SUMMARY | 2025-01-14 12:42 | XMS_ITS | Encounter Summary ---
Author Organization [employer] ([place], [place], [place], [place]) Address [address] [place] [address] Care Team Providers Care Cra Officer Name Role Phone Unavailable Primary Care Provider Unavailabl e Encounter Details Date Type Department Care Team (Late st Contact Info) Description 08/14/2021 Transcribed Document [facility] [place] [address] [place] [address] ProviderMaría MD [address] [place] [address] Social History Tobacco Use Types [...] - Historical ProviderMD - 08/14/2021 6:43 PM ENGINEERING DOCUMENT CONTROL CLERK Broset Violence Assessment Entered On: 08/14/2021 21:48 [...]
--- OUTSIDE RECORDS SUMMARY | 2025-01-14 12:42 | XMS_ITS | Encounter Summary ---
Author Organization [employer] ([place], [place], [place], [place]) Address [address] [place] [address] Care Team Providers Care Communications Clerk Name Role Phone Unavailable Primary Care Provider Unavailabl e Encounter Details Date Type Department Care Team (Late st Contact Info) Description 09/30/2021 Transcribed Document [facility] Family Medicine [facility] [place] [address] ProviderMaría MD [address] [place] [address] Social History Tobacco Use [...] Roberts MD - 09/30/2021 8:31 PM CDT [facility] [address] [place], [place] [address] JAZMINE CARIN :1975 Visit Time:09/30/2021 Your Visit [...] 2 to 3 days Where: [place] [address]- Business (1) Allergies metoclopramide Immunizations This Visit No Immunizations Found Medications What How Much When Instructions Next Dose chlorpheniramine-hydrocodone (Tussionex [employer]etic 10 mg-8 mg/ 5 mL oral suspension, extended release) 5 Milliliter(s) Oral Every 12 hours Duration: 5 Day(s) Pickup at [facility]/pharmacy #[id number] doxycycline (doxycycline monohydrate 100 mg oral tablet) 1 Tablet(s) Oral Two Times A Day Duration: 10 Day(s) Pickup at [facility] acetaminophen-hydrocodone (acetaminophen-HYDROcodone 325 mg-5 mg oral tablet) [...] Oral Two Times A Day Pharmacy Information [facility]/pharmacy #[id number]: [address] [place], [place] [id number] [phone] [facility] [place]: [address] [facility] [[email or web address] [address] [place], [place] [phone] The home medications listed are only as [...] range between ( 0.0 and 7.0 ) [place] #: 0.49 K/uL -- Normal range between ( 0.16 and 1.00 ) Eos #: 0.03 x10(3)/uL -- Normal range between ( 0.00 and 0.80 ) [place] %: 6.9 % -- Normal range between [...] these instructions at home: Medicines ??? Take tyqi-ssn-phbfohr and prescription medicines only as told by [...] and water are not available, use hand quality control systems manager. Contact a health care provider if you [...] provider. Document Revised: 03/03/2020 Document Reviewed: 03/03/2020 [employer] Patient Education ?? 2020 [employer]. Emergency Awareness and Preventative Care STROKE is [...] Assistance with quitting is available by contacting 8-325-YBAXNOW. This is a free resource providing counseling, support, and referral. Or you may contact your personal physician. [place] Suicide Prevention Lifeline: The National Suicide Prevention [...] was given the opportunity to ask questions. Patient/Lace Mender Name: Patient/Lace Mender Signature: Relationship to Patient: Clinician/Hospital Lace Mender Signature: Please Provide a Telephone Number Where You Can Be Reached: Is it Permissible To Leave a Message? Date: Electronically signed by Tomeka, Roman Conversion Logging Equipment Mechanic Florinner at 09/18/2022 9:18 AM CDT documented in this encounter Plan of Treatment Not on file documented as of this encounter Visit Diagnoses Not on filedocumented in this encounter
--- OUTSIDE RECORDS SUMMARY | 2025-01-14 12:42 | XMS_ITS | Encounter Summary ---
Author Organization [employer] ([place], [place], [place], [place]) Address [address] [place] [address] Care Team Providers Care Adult Services Librarian Name Role Phone Unavailable Primary Care Provider Unavailabl e Encounter Details Date Type Department Care Team (Late st Contact Info) Description 08/15/2021 Transcribed Document [facility] [facility] [place] [address] ProviderMaría MD [address] [place] [address] Social History Tobacco Use Types [...] about a month ago with transfer to [facility]. She was discharged on 08/11. She has been tolerating oral intake and was scheduled to have PEG removed next week. She began having pain around the PEG tube site around 3 days ago with the area becoming more red with burning sensation prompting her to come to [facility] ED on 08/14/21. She denies [...] mg, Oral, Daily Lovenox: 40 mg, SubCutaneous, [id number] MiraLax: 17 Gram, Oral, Daily, PRN: Constipation [...] mL: 1,500 mg, 250 mL/Hr, IV Piggyback, [id number] Prescriptions Prescribed Bentyl 20 mg oral tablet: [...] hours oral tablet, extended release: Tab, Oral, [id number], 0 Refill(s) acetaminophen-HYDROcodone 325 mg-5 mg oral [...] m - 1,500 mg, IV Piggyback, Inj, [id number], infuse over 60 Minute(s) Anticoagulant enoxaparin (Lovenox) - 40 mg, SubCutaneous, Inj, C26FHlm, Routine Cardiovascular hydrALAZINE - 10 mg, Oral, [...] History of obstructive sleep apnea / IMO [id number] / Confirmed Suicide risk / IMO 22387 / Confirmed, Active Problems (2) History of [...] every day smoker . Single, lives in [place], [place]. Smokes daily, no alcohol or illicit [...] No tenderness, No deformity. Integumentary: Warm, Dry, [place], No pallor, No rash, PEG tube site [...] Radiology results Radiology Results (Last 48 hours) [id number] -- 08/14/2021 22:53 CR Chest 1 Vw [...] from [facility] and place on chart. 6. Continue [...] Dr. Manuelito Smith. Electronically signed by Tomeka [facility] Conversion Hot Metal Crane Operator Cerner at 09/18/2022 8:51 AM CDT documented in this encounter Plan of Treatment Not on file documented as of this encounter Visit Diagnoses Not on filedocumented in this encounter
--- OUTSIDE RECORDS SUMMARY | 2025-01-14 12:42 | XMS_ITS | Encounter Summary ---
Author Organization [employer] ([place], [place], [place], [place]) Address [address] [place] [address] Care Team Providers Care Glove Parts Cutter Name Role Phone Unavailable Primary Care Provider Unavailabl e Encounter Details Date Type Department Care Team (Late st Contact Info) Description 08/14/2021 Transcribed Document [facility] [place] Family Medicine [facility] [place] [address] ProviderMaría MD [address] [place] [address] Social History Tobacco Use Types [...] - Historical ProviderMD - 08/14/2021 7:11 PM CHIEF OF POLICE Patient: CARIN LUCERO Age: 46 years Sex: [...] last month ago and was admitted to [facility]. Says she has sleep apnea and her CO2 was greater than 100. She was admitted and have a trach and PEG placed. She says she was [facility] [place] [facility] [place] [facility] was just discharged 3 days ago. [...] hours oral tablet, extended release: Tab, Oral, E27MPxy, 0 Refill(s) gabapentin 800 mg oral tablet: [...] EST Height Source Stated Height Entry Format [place] Height/Length, GUAMANIAN (ft) 5 ft Height/Length GUAMANIAN 1 Inch CLINICALHEIGHT 154.94 cm [place] Body Weight 47.45 kg Weight Source, ED Critical estimated dosing weight Weight Entry Format [place] Weight Kittitian lb 305 lb CLINICALWEIGHT 138.64 kg Body [...] nurses' notes, emergency department records, prior records. campus monitor: Time 08/14/2021 19:16:00, Rate 112, Sinus Tachycardia. [...] 12.9 % LOW Lymph # 1.24 x10(3)/uL [place] % 9.3 % HI [place] # 0.89 K/uL Eos % 1.4 % Eos # 0.13 x10(3)/uL Baso % 0.3 % Baso # 0.03 x10(3)/uL Slide Review No IG# 0.12 x10(3)/uL HI IG% 1.30 % HI PT 9.7 Second(s) INR 0.9 PTT 27.5 Second(s) Procalcitonin <0.25 ng/mL Influenza A Negative Influenza B Negative SARS-CoV-2 (COVID19 PCR) Negative . Radiology results: Radiology Results (Last 48 hours) [id number] -- 08/14/2021 22:53 CT Abdomen Pelvis W [...] [place]ANT[place], DO-INT. Electronically signed by Tomeka [facility] Conversion Physical Therapy Supervisor Cerner at 09/18/2022 9:34 AM CDT documented in this encounter Plan of Treatment Not on file documented as of this encounter Visit Diagnoses Not on filedocumented in this encounter
--- OUTSIDE RECORDS SUMMARY | 2025-01-14 12:42 | XMS_ITS | Encounter Summary ---
Author Organization [employer] ([place], [place], [place], [place]) Address [address] [place] [address] Care Team Providers Care Research Clerk Name Role Phone Unavailable Primary Care Provider Unavailabl e Encounter Details Date Type Department Care Team (Late st Contact Info) Description 09/30/2021 Transcribed Document [facility] [place] [facility] [place] [address] ProviderMaría MD [address] [place] [address] Social History Tobacco Use Types [...]
--- OUTSIDE RECORDS SUMMARY | 2025-01-14 12:42 | XMS_ITS | Encounter Summary ---
Author Organization [employer] ([place], [place], [place], [place]) Address [address] [place] [address] Care Team Providers Care Regional Engineer Name Role Phone Unavailable Primary Care Provider Unavailabl e Encounter Details Date Type Department Care Team (Late st Contact Info) Description 08/15/2021 Transcribed Document [facility] Family Medicine [facility] [place] [address] ProviderMaría MD [address] [place] [address] Social History Tobacco Use Types [...]
--- OUTSIDE RECORDS SUMMARY | 2025-01-14 12:42 | XMS_ITS | Encounter Summary ---
Author Organization [employer] ([place], [place], [place], [place]) Address [address] [place] [address] Care Team Providers Care Leaf Sticker Name Role Phone Unavailable Primary Care Provider Unavailabl e Encounter Details Date Type Department Care Team (Late st Contact Info) Description 09/30/2021 Transcribed Document [facility] [place] Family Medicine [address] [place] [address] ProviderMaría MD [address] [place] [address] Social History Tobacco Use Types [...]
--- OUTSIDE RECORDS SUMMARY | 2025-01-14 12:42 | XMS_ITS | Encounter Summary ---
Author Organization [employer] ([place], [place], [place], [place]) Address [address] [place] [address] Care Team Providers Care General Foreman Name Role Phone Unavailable Primary Care Provider Unavailabl e Encounter Details Date Type Department Care Team (Late st Contact Info) Description 08/14/2021 Transcribed Document [facility] [place] [facility] [place] [address] ProviderMaría MD [facility] [place] [address] Social History Tobacco Use Types [...] - Historical Provider, - 08/14/2021 11:19 PM CLAY PLANT TREATER Evaluation, Occupational Therapy Entered On: 08/15/2021 15:01 [...] abdominal pain Therapy Diagnosis, OT : Decreased [place] with ADLs secondary to generalized weakness Onset [...] JANIS PANDYA OTR/Az - 08/15/2021 14:38 EDT [facility] Goals, OT Grooming LTG Grid Goal #1 Activity : Grooming Assist : Independent, modified Date to Meet : 08/29/2021 EDT Goal Status : Initial goal Comment : Standing JANIS PANDYA OTR/L - 08/15/2021 14:38 EDT Dressing, Lower Body LTG Grid Goal #1 Activity : Dressing, Lower Body Assist : Independent, modified Equipment : Long Handled Fixture Repairer Fabricator, Sock aid, Long handled shoehorn Date to [...] date due to pain. Attempted to consult call center specialist, however pt denied. RN notified of pt [...] JANIS PANDYA OTR/Az - 08/15/2021 14:38 EDT [place] OT Charges OT Eval Moderate Complexity : 1 JANIS PANDYA OTR/Az - 08/15/2021 14:38 EDT documented in this encounter Plan of Treatment Not on file documented as of this encounter Visit Diagnoses Not on filedocumented in this encounter
--- OUTSIDE RECORDS SUMMARY | 2025-01-14 12:42 | XMS_ITS | Encounter Summary ---
Author Organization [employer] ([place], [place], [place], [place]) Address [address] [place] [address] Care Team Providers Care It Solutions Architect Name Role Phone Unavailable Primary Care Provider Unavailabl e Encounter Details Date Type Department Care Team (Late st Contact Info) Description 08/14/2021 Transcribed Document [facility] [place] [address] [place] [address] ProviderMaría MD [address] [place] [address] Social History Tobacco Use Types [...] - Historical ProviderMD - 08/14/2021 11:49 PM MINE ENGINEERING SUPERINTENDENT Pain Assessment Entered On: 08/15/2021 22:58 EDT Performed On: 08/15/2021 23:06 EDT by Venkat Chow Lpn Intervention Information: oxyCODONE Performed by Venkat Chow Lpn on 08/15/2021 22:06:00 EDT oxyCODONE,5mg Oral,Pain (Moderate 4-6) Pain Assessment Pain Assessment : Follow-up assessment Pain Scale Goal : 4 Venkat Chow Lpn - 08/15/2021 22:58 EDT Electronically signed by Tomeka [facility] Conversion Generator Man Cerner at 09/18/2022 8:56 AM CDT documented in this encounter Plan of Treatment Not on file documented as of this encounter Visit Diagnoses Not on filedocumented in this encounter
--- OUTSIDE RECORDS SUMMARY | 2025-01-14 12:42 | XMS_ITS | Encounter Summary ---
Author Organization [employer] ([place], [place], [place], [place]) Address [address] [place] [address] Care Team Providers Care Director Maternal Child Name Role Phone Unavailable Primary Care Provider Unavailabl e Encounter Details Date Type Department Care Team (Late st Contact Info) Description 08/23/2021 Transcribed Document [facility] [place] Family Medicine [facility] [place] [address] ProviderMaría MD [address] [place] [address] Social History Tobacco Use Types [...] On: 08/23/2021 6:36 EDT by Zara Donald, Systems Programmer Analyst Primary Insurance Authorization Authorization and Policy Numbers : Insurance 1 Health Plan: [facility] Policy Number: [id number] Authorization Number: Insurance Primary Name : [facility] Policy Number: [id number] Authorization Status-Primary : Approved Auth/Referral Contact Name-Primary : [place] Reference Number-Primary : [id number] Authorization Number-Primary : [id number] Number of Days Authorized-Primary : 9 Day(s) [...] due 08/24/21. -Efrem Gillette RN. (Zara Donald, Systems Programmer Analyst 08/19/2021 11:33) Comment 2: c/s review for inpt faxed wo to [facility] via [employer]. (VASYL HIGGINS, EWA-Screw Down 08/19/2021 09:00) Comment 3: inpt admit approved per fax from [facility] 08/16/21 auth# [id number] NRD 08-19-21 (EBEN HURTADO, Filter Tank Tender 08/16/2021 12:52) Comment 4: Clinicals submitted on [facility] website for IP approval (ROBERTO CARLOS CISNEROS RN 08/15/2021 12:09) Zara Donald, Systems Programmer Analyst - 08/23/2021 6:36 EDT Electronically signed by Roman Eckert Conversion Transitional Living Specialist Cerner at 09/18/2022 9:25 AM CDT documented in this encounter Plan of Treatment Not on file documented as of this encounter Visit Diagnoses Not on filedocumented in this encounter
--- OUTSIDE RECORDS SUMMARY | 2025-01-14 12:43 | XMS_ITS | Encounter Summary ---
Author Organization [employer] ([place], [place], [place], [place]) Address [address] [place] [address] Care Team Providers Care Squash Centre Manager Name Role Phone Unavailable Primary Care Provider Unavailabl e Encounter Details Date Type Department Care Team (Late st Contact Info) Description 08/17/2021 Transcribed Document [facility] [place] Family Medicine [address] [place] [address] ProviderMaría MD [address] [place] [address] Social History Tobacco Use Types [...]
--- OUTSIDE RECORDS SUMMARY | 2025-01-14 12:43 | XMS_ITS | Encounter Summary ---
Author Organization [employer] ([place], [place], [place], [place]) Address [address] [place] [address] Care Team Providers Care Thread Pulling Machine Attendant Name Role Phone Unavailable Primary Care Provider Unavailabl e Encounter Details Date Type Department Care Team (Late st Contact Info) Description 08/19/2021 Transcribed Document [facility] [place] [facility] [place] [address] ProviderMaría MD [address] [place], [place] [...] On: 08/19/2021 14:01 EDT by JEANNETTE MANCERA Talent Development Analyst Final Discharge Planning Discharge Arrangements : Patient [...] Services (Related/SOC within 3 days)-06 JEANNETTE MANCERA Talent Development Analyst - 08/19/2021 14:01 EDT Final Narrative Note [...] and in agreement with plan. JEANNETTE MANCERA Talent Development Analyst - 08/19/2021 14:01 EDT Electronically signed by Tomeka [facility] Conversion Agricultural Service Technician Cerner at 09/18/2022 9:26 AM CDT documented in this encounter Plan of Treatment Not on file documented as of this encounter Visit Diagnoses Not on filedocumented in this encounter
--- OUTSIDE RECORDS SUMMARY | 2025-01-14 12:43 | XMS_ITS | Encounter Summary ---
Author Organization [employer] ([place], [place], [place], [place]) Address [address] [place] [address] Care Team Providers Care Game Master Name Role Phone Unavailable Primary Care Provider Unavailabl e Encounter Details Date Type Department Care Team (Late st Contact Info) Description 08/17/2021 Transcribed Document [facility] [place] Family [facility] [place] [address] ProviderMaría MD [address] [place] [address] Social History Tobacco Use Types [...]
--- OUTSIDE RECORDS SUMMARY | 2025-01-14 12:43 | XMS_ITS | Encounter Summary ---
Author Organization [employer] ([place], [place], [place], [place]) Address [address] [place] [address] Care Team Providers Care Therapist Asst Name Role Phone Unavailable Primary Care Provider Unavailabl e Encounter Details Date Type Department Care Team (Late st Contact Info) Description 08/17/2021 Transcribed Document [facility] Radiology [address] [place] [address] Saleem Jimenes MD [address] [place] [address] Social History Tobacco Use Types Packs/Day [...] mg, 12 mL, 124 mL/Hr, IV Piggyback, [id number] Dulcolax Laxative: 5 mg, Oral, Daily, PRN: Constipation DuoNeb 0.5 mg-2.5 mg/3 mL inhalation solution: 3 mL, Nebulized Inhalation, RT_Q6H, PRN: Shortness of Breath Geodon: 40 mg, Oral, BID HYDROmorphone: 2 mg, Oral, Q4H, PRN: Pain Imitrex: 100 mg, Oral, Daily, PRN: Migraine Headache LaMICtal: 100 mg, Oral, Daily Lactated Ringers Injection intravenous solution 1,000 mL: 20 mL/Hr, IntraVENous Lovenox: 40 mg, SubCutaneous, [id number] MiraLax: 17 Gram, Oral, Daily, PRN: Constipation [...] mL 600 mg 12 mL, IV Piggyback, [id number] enoxaparin 40 mg/0.4 mL inj 40 mg 0.4 mL, SubCutaneous, W34FQbe famotidine 20 mg tab 20 mg 1 [...] History of obstructive sleep apnea / IMO [id number] / Confirmed Suicide risk / IMO 98485 / Confirmed, Active Problems (2) History of [...] 50 mL 600 mg, IV Piggyback, Inj, E16FZdb, infuse over 30 Minute(s), Routine, Start 08/17/21 [...] 250 mL 1,500 mg, IV Piggyback, Inj, [id number], infuse over 60 Minute(s), Start 08/15/21 11:00:00 [...]
--- OUTSIDE RECORDS SUMMARY | 2025-01-14 12:43 | XMS_ITS | Encounter Summary ---
Author Organization [employer] ([place], [place], [place], [place]) Address [address] [place] [address] Care Team Providers Care Card Dealer Name Role Phone Unavailable Primary Care Provider Unavailabl e Encounter Details Date Type Department Care Team (Late st Contact Info) Description 08/19/2021 Transcribed Document [facility] [place] Family Medicine [address] [place] [address] ProviderMaría MD [address] [place] [address] Social History Tobacco Use Types [...]
--- OUTSIDE RECORDS SUMMARY | 2025-01-14 12:43 | XMS_ITS | Encounter Summary ---
Author Organization [employer] ([place], [place], [place], [place]) Address [address] [place] [address] Care Team Providers Care Marketing Regional Consultant Name Role Phone Unavailable Primary Care Provider Unavailabl e Encounter Details Date Type Department Care Team (Late st Contact Info) Description 08/19/2021 Transcribed Document [facility] [place] Family Medicine [facility] [place] [address] ProviderMaría MD [address] [place] [address] Social History Tobacco Use Types Packs/Day [...]
--- OUTSIDE RECORDS SUMMARY | 2025-01-14 12:43 | XMS_ITS | Encounter Summary ---
Author Organization [employer] ([place], [place], [place], [place]) Address [address] [place] [address] Care Team Providers Care Pantograph Setter Name Role Phone Unavailable Primary Care Provider Unavailabl e Encounter Details Date Type Department Care Team (Late st Contact Info) Description 08/14/2021 Transcribed Document [facility] [place] Medicine [facility] [place] [address] ProviderMaría MD [address] [place] [address] Social History Tobacco Use Types Packs/Day [...] - Historical Provider, - 08/14/2021 10:53 PM MELTER SUPERVISOR ELECTRIC ARC FURNACE Treatment Intervention, OT Entered On: 08/17/2021 15:15 [...] abdominal pain Therapy Diagnosis, OT : Decreased [place] with ADLs secondary to generalized weakness Admission [...] GIANNA RHODES, OTR/L - 08/17/2021 15:10 EDT Zipper Setter Chainstitch Goals, OT Grooming LTG Grid Goal #1 Activity : Grooming Assist : Independent, modified Date to Meet : 08/29/2021 EDT Goal Status : Initial goal Comment : Standing GIANNA RHODES OTR/L - 08/17/2021 15:10 EDT Dressing, Lower Body LTG Grid Goal #1 Activity : Dressing, Lower Body Assist : Independent, modified Equipment : Long Handled Soaping Department Supervisor, Sock aid, Long handled shoehorn Date to [...] the text rendition version of the form. [place] OT Charges OT Ther Activities Ea 15 Min : 1 GIANNA RHODES OTR/Az - 08/17/2021 15:10 EDT documented in this encounter Plan of Treatment Not on file documented as of this encounter Visit Diagnoses Not on filedocumented in this encounter
--- OUTSIDE RECORDS SUMMARY | 2025-01-14 12:43 | XMS_ITS | Encounter Summary ---
Author Organization [employer] ([place], [place], [place], [place]) Address [address] [place] [address] Care Team Providers Care Herbicide Service Sales Representative Name Role Phone Unavailable Primary Care Provider Unavailabl e Encounter Details Date Type Department Care Team (Late st Contact Info) Description 08/19/2021 Transcribed Document [facility] [place] [address] [place] [address] ProviderMaría MD [address], [place] [...] Historical ProviderMD - 08/19/2021 3:00 AM CDT Welder Boilermaker Details Entered On: 08/19/2021 2:25 EDT Performed [...]
--- OUTSIDE RECORDS SUMMARY | 2025-01-14 12:43 | XMS_ITS | Encounter Summary ---
Author Organization [employer] ([place], [place], [place], [place]) Address [address] [place] [address] Care Team Providers Care Horse Wrangler Name Role Phone Unavailable Primary Care Provider Unavailabl e Encounter Details Date Type Department Care Team (Late st Contact Info) Description 08/17/2021 Transcribed Document [facility] [place] [facility] [place] [address] ProviderMaría MD [address] [place] [address] Social History Tobacco Use Types [...]
--- OUTSIDE RECORDS SUMMARY | 2025-01-14 12:43 | XMS_ITS | Encounter Summary ---
Author Organization [employer] ([place], [place], [place], [place]) Address [address] [place] [address] Care Team Providers Care Food Storeroom Clerk Name Role Phone Unavailable Primary Care Provider Unavailabl e Encounter Details Date Type Department Care Team (Late st Contact Info) Description 08/17/2021 Transcribed Document [facility] [place] [facility] [place] [address] ProviderMaría MD [address] [place] [address] Social History Tobacco Use Types [...] 1975 Associated Diagnoses: None Author: Todd Davidson, PRODUCE LABORER-PHARMACIST Pain Management Pharmacy Consultation HPI: [id number] [...] respiratory arrest last month and admitted to [facility]. Patient CO2 was reportedly greater than 100. Patient was admitted and eventually had to have a trach and peg placed. Patient was tolerating po intake and was about to have peg tube removed next week. Relevant PMH: peg tube placement, recent respiratory arrest, obstructive sleep apnea, tobacco abuse, morbid obesity. Indication: pain assistant manager quality management MD: Saleem Jimenes Allergies: metoclopramide Outpatient [...]
--- OUTSIDE RECORDS SUMMARY | 2025-01-14 12:43 | XMS_ITS | Encounter Summary ---
Author Organization [employer] ([place], [place], [place], [place]) Address [address] [place] [address] Care Team Providers Care Mechanical Handyman Name Role Phone Unavailable Primary Care Provider Unavailabl e Encounter Details Date Type Department Care Team (Late st Contact Info) Description 08/17/2021 Transcribed Document [facility] [place] [address] ProviderMaría MD [address] [place] [address] Social History Tobacco Use Types [...] change in location/level of care Rapid Response Mechanical Handyman #1 : Carin Hernandez V, Rn Carin Hernandez V, Rn - 08/17/2021 5:25 EDT documented in this encounter Plan of Treatment Not on file documented as of this encounter Visit Diagnoses Not on filedocumented in this encounter
--- OUTSIDE RECORDS SUMMARY | 2025-01-14 12:43 | XMS_ITS | Encounter Summary ---
Author Organization [employer] ([place], [place], [place], [place]) Address [address] [place] [address] Care Team Providers Care Wireless Development Manager Name Role Phone Unavailable Primary Care Provider Unavailabl e Encounter Details Date Type Department Care Team (Late st Contact Info) Description 08/19/2021 Transcribed Document [facility] [place] Family Medicine [facility] [place] [address] ProviderMaría MD [address] [place] [address] Social History Tobacco Use Types [...] COVID-19 pneumonia, and recent respiratory arrest at [facility] requiring tracheostomy/PEG about a month ago with transfer to [facility]. She was discharged on 08/11. She has been tolerating oral intake and was scheduled to have PEG removed next week. She began having pain around the PEG tube site around 3 days ago with the area becoming more red with burning sensation prompting her to come to [facility] ED on 08/14/21. She denies fever, [...] mL - 600 mg, IV Piggyback, Inj, [id number], infuse over 30 Minute(s), Routine metroNIDAZOLE (Flagyl) - 500 mg, Oral, Tab, TID, Routine Anticoagulant enoxaparin (Lovenox) - 40 mg, SubCutaneous, Inj, [id number], Routine Cardiovascular carvedilol - 12.5 mg, Oral, [...] No tenderness, No deformity. Integumentary: Warm, Dry, Floyd, No pallor, No rash, PEG tube site [...] Critical Care - Code Management Assessment: ACC: [id number] ORDER: Culture Wound and Stain DATE: 08/15/2021 [...] cells seen No organisms seen. == ACC: [id number] ORDER: Culture Wound and Stain DATE: 08/15/2021 [...] seen. Few White Blood Cells == ACC: [id number] ORDER: Culture Blood DATE: 08/14/2021 19:11 SOURCE: Blood SITE: Reports Pre 08/18/2021 23:01 No growth at 4 days. Pre 08/17/2021 23:01 No growth at 3 days. Pre 08/16/2021 23:01 No growth at 2 days. Pre 08/15/2021 23:01 No growth at 1 day. Pre 08/15/2021 16:01 Culture less than 24 Hrs old == ACC: [id number] ORDER: Culture Blood DATE: 08/14/2021 19:11 SOURCE: [...] with case management and the hospitalist service. Electronically signed by Roman Eckert Conversion Advertising Operations Coordinator Avery at 09/18/2022 8:55 AM CDT documented in this encounter Plan of Treatment Not on file documented as of this encounter Visit Diagnoses Not on filedocumented in this encounter
--- OUTSIDE RECORDS SUMMARY | 2025-01-14 12:43 | XMS_ITS | Encounter Summary ---
Author Organization [employer] ([place], [place], [place], [place]) Address [address] [place] [address] Care Team Providers Care Body Artist Name Role Phone Unavailable Primary Care Provider Unavailabl e Encounter Details Date Type Department Care Team (Late st Contact Info) Description 08/19/2021 Transcribed Document [facility] [place] Medicine [place] [address] ProviderMaría MD [address] [place] [address] Social History Tobacco Use Types [...] change in location/level of care Rapid Response Body Artist #1 : Carin Hernandez V, Rn Carin Hernandez V Rn - 08/19/2021 1:01 EDT Electronically signed by Roman Eckert Conversion Industrial Sales Representative Cer[employer] at 09/18/2022 9:00 AM CDT documented in this encounter Plan of Treatment Not on file documented as of this encounter Visit Diagnoses Not on filedocumented in this encounter
--- OUTSIDE RECORDS SUMMARY | 2025-01-14 12:43 | XMS_ITS | Encounter Summary ---
Author Organization [employer] ([place], [place], [place], [place]) Address [address] [place] [address] Care Team Providers Care Hhas Name Role Phone Unavailable Primary Care Provider Unavailabl e Encounter Details Date Type Department Care Team (Late st Contact Info) Description 08/17/2021 Transcribed Document [facility] [place] Medicine [facility] [place] [address] ProviderMaría MD [address], [...]
--- OUTSIDE RECORDS SUMMARY | 2025-01-14 12:43 | XMS_ITS | Encounter Summary ---
Author Organization [employer] ([place], [place], [place], [place]) Address [address] [place] [address] Care Team Providers Care Retail Shift Supervisor Name Role Phone Unavailable Primary Care Provider Unavailabl e Encounter Details Date Type Department Care Team (Late st Contact Info) Description 08/17/2021 Transcribed Document [facility] [place] Family Medicine [address] [place] [address] ProviderMaría MD [address], [place] [id number] Social History Tobacco Use Types Packs/Day Years [...] EDT Performed On: 08/17/2021 10:59 EDT by Giullermo Payton Rn Intervention Information: acetaminophen Performed by Guillermo Payton Rn on 08/17/2021 09:59:00 EDT acetaminophen,1000mg Oral Pain Assessment Pain Assessment : Follow-up assessment Pain Scale Goal : 4 Guillerom Payton Rn - 08/17/2021 10:32 EDT documented in this encounter Plan of Treatment Not on file documented as of this encounter Visit Diagnoses Not on filedocumented in this encounter
--- OUTSIDE RECORDS SUMMARY | 2025-01-14 12:43 | XMS_ITS | Encounter Summary ---
Author Organization [employer] ([place], [place], [place], [place]) Address [address] [place] [address] Care Team Providers Care Property Analyst Name Role Phone Unavailable Primary Care Provider Unavailabl e Encounter Details Date Type Department Care Team (Late st Contact Info) Description 08/19/2021 Transcribed Document [facility] [place] [facility] [place] [address] ProviderMaría MD [address] [place] [address] Social History Tobacco Use Types [...] including vitamins, herbs, eye drops, creams, and bvxe-kkr-uzdiogk medicines. ??? Any problems you or family [...] tells you to take them. ? Taking icmm-icc-urtzjar medicines, vitamins, herbs, and supplements. ??? Do [...] provider. Document Revised: 10/02/2020 Document Reviewed: 10/02/2020 [employer] Patient Education ? 2020 [employer] documented in this encounter Plan of Treatment Not on file documented as of this encounter Visit Diagnoses Not on filedocumented in this encounter
--- OUTSIDE RECORDS SUMMARY | 2025-01-14 12:43 | XMS_ITS | Encounter Summary ---
Author Organization [employer] ([place], [place], [place], [place]) Address [address] [place] [address] Care Team Providers Care Telephoner Name Role Phone Unavailable Primary Care Provider Unavailabl e Encounter Details Date Type Department Care Team (Late st Contact Info) Description 08/19/2021 Transcribed Document [facility] [place] [address] [place] [address] ProviderMaría MD [address], [place] [...]
--- OUTSIDE RECORDS SUMMARY | 2025-01-14 12:43 | XMS_ITS | Encounter Summary ---
Author Organization [employer] ([place], [place], [place], [place]) Address [address] [place] [address] Care Team Providers Care Size Mixer Name Role Phone Unavailable Primary Care Provider Unavailabl e Encounter Details Date Type Department Care Team (Late st Contact Info) Description 08/19/2021 Transcribed Document [facility] [place] [facility] [place] [address] ProviderMaría MD [address] [place] [address] Social History Tobacco Use Types [...] Historical ProviderMD - 08/19/2021 3:34 PM CDT [facility] [place], [place] [id number] ZANDER LUCERO :1975 Visit Time:08/14/2021 Your Visit [...] [facility] Home Health Services: [facility] [phone] Medical Equipment for Home Use: Patient Aides (your medical equipment provider)[phone] Transportation: family Discharge Activity: Discharge Activity: Activity as tolerated Diet: Discharge Diet: Heart healthy diet Follow-Up Appointments Follow Up with EMY MUSA (REF)ZACHARY When 08/30/2021 11:30 AM EDT Comments Primary care follow up appointment has been made Bring discharge instructions with you Where: [address] [place] [address] THANH Philippe [address]- [phone] Medications What How Much When Instructions Next Dose amoxicillin-clavulanate (Augmentin 500 mg-125 mg oral tablet) 1 Tablet(s) Oral Every 12 hours Duration: 7 Day(s) Pickup at [facility] [place] carvedilol (carvedilol 12.5 mg oral tablet) 1 Tablet(s) Oral Two Times A Day Duration: 30 Day(s) Pickup at [facility] doxycycline (doxycycline hyclate 100 mg oral tablet) 1 Tablet(s) Oral Two Times A Day Duration: 7 Day(s) Pickup at [facility] guaiFENesin (Mucinex 600 mg oral tablet, extended release) 2 Tablet(s) Oral Two Times A Day Duration: 7 Day(s) Pickup at [facility] metroNIDAZOLE (Flagyl 500 mg oral tablet) 1 Tablet(s) Oral Three Times A Day Duration: 6 Day(s) Pickup at [facility] furosemide (furosemide 20 mg oral tablet) [...] Oral Two Times A Day Pharmacy Information [facility] at [place]: [address] [place], [place] [id number] [phone] Take your medications faithfully. Do NOT skip [...] including vitamins, herbs, eye drops, creams, and ofch-bef-pxgeggv medicines. ??? Any problems you or family [...] tells you to take them. ? Taking rlfd-fce-ixcconk medicines, vitamins, herbs, and supplements. ??? Do [...] provider. Document Revised: 10/02/2020 Document Reviewed: 10/02/2020 [employer] Patient Education ?? 2020 [employer]. amoxicillin and clavulanate potassium (am OK i [...] may report side effects to FDA at 6-610-MJI-5781. What other drugs will affect amoxicillin and clavulanate potassium? Tell your doctor about all your other medicines, especially: ?? allopurinol; ?? probenecid; or ?? a blood thinner--warfarin, Coumadin, Jantoven. This list is not complete. Other drugs may affect amoxicillin and clavulanate potassium, including prescription and ltxd-qus-fqspxpj medicines, vitamins, and herbal products. Not all [...] to ensure that the information provided by [employer]. ('[employer]') is accurate, up-to-date, and complete, but no guarantee is made to that effect. Drug information contained herein may be time sensitive. [employer] information has been compiled for use by healthcare practitioners and consumers in the [place] and therefore [employer] does not warrant that uses outside of the [place] are appropriate, unless specifically indicated otherwise. [employer] drug information does not endorse drugs, diagnose patients or recommend therapy. [employer] drug information is an informational resource designed [...] effective or appropriate for any given patient. [employer] does not assume any responsibility for any aspect of healthcare administered with the aid of information [employer] provides. The information contained herein is not intended to cover all possible uses, directions, precautions, warnings, drug interactions, allergic reactions, or adverse effects. If you have questions about the drugs you are taking, check with your doctor, nurse or pharmacist. Copyright 3950-6132 [employer]. Version: 12.. Revision Date: 07/29/2019. carvedilol (AVEL [...] may report side effects to FDA at 7-599-HDP-0651. What other drugs will affect carvedilol? Sometimes it is not safe to use certain medications at the same time. Some drugs can affect your blood levels of other drugs you take, which may increase side effects or make the medications less effective. Other drugs may affect carvedilol, including prescription and cwpg-pgb-xvvgrnz medicines, vitamins, and herbal products. Tell your [...] to ensure that the information provided by [employer]. ('[employer]') is accurate, up-to-date, and complete, but no guarantee is made to that effect. Drug information contained herein may be time sensitive. [employer] information has been compiled for use by healthcare practitioners and consumers in the [place] and therefore [employer] does not warrant that uses outside of the [place] are appropriate, unless specifically indicated otherwise. [employer] drug information does not endorse drugs, diagnose patients or recommend therapy. [employer] drug information is an informational resource designed [...] effective or appropriate for any given patient. [employer] does not assume any responsibility for any aspect of healthcare administered with the aid of information [employer] provides. The information contained herein is not intended to cover all possible uses, directions, precautions, warnings, drug interactions, allergic reactions, or adverse effects. If you have questions about the drugs you are taking, check with your doctor, nurse or pharmacist. Copyright 7951-8944 [employer]. Version: 16.. Revision Date: 09/27/2018. doxycycline (oral/injection) [...] or life-threatening conditions such as anthrax or Dilley spotted fever. The benefit of treating a [...] may report side effects to FDA at 8-201-JFX-9389. What other drugs will affect doxycycline? Sometimes it is not safe to use certain medications at the same time. Some drugs can affect your blood levels of other drugs you take, which may increase side effects or make the medications less effective. Other drugs may affect doxycycline, including prescription and tpmc-jtd-rljpgac medicines, vitamins, and herbal products. Tell your [...] to ensure that the information provided by [employer]. ('[employer]') is accurate, up-to-date, and complete, but no guarantee is made to that effect. Drug information contained herein may be time sensitive. [employer] information has been compiled for use by healthcare practitioners and consumers in the [place] and therefore [employer] does not warrant that uses outside of the [place] are appropriate, unless specifically indicated otherwise. [employer]'s drug information does not endorse drugs, diagnose patients or recommend therapy. [employer] drug information is an informational resource designed [...] effective or appropriate for any given patient. [employer] does not assume any responsibility for any aspect of healthcare administered with the aid of information [employer] provides. The information contained herein is not intended to cover all possible uses, directions, precautions, warnings, drug interactions, allergic reactions, or adverse effects. If you have questions about the drugs you are taking, check with your doctor, nurse or pharmacist. Copyright 0669-2073 [employer]. Version: 21.04. Revision Date: 04/08/2020. metronidazole (oral/injection) [...] (more likely to occur while taking metronidazole longterm): ?? numbness, tingling, or burning pain in [...] may report side effects to FDA at 8-496-ISK-1252. What other drugs will affect metronidazole? Sometimes [...] may affect metronidazole. This includes prescription and mlwy-olm-iykpnkm medicines, vitamins, and herbal products. Not all [...] to ensure that the information provided by [employer]. ('[employer]') is accurate, up-to-date, and complete, but no guarantee is made to that effect. Drug information contained herein may be time sensitive. [employer] information has been compiled for use by healthcare practitioners and consumers in the [place] and therefore [employer] does not warrant that uses outside of the [place] are appropriate, unless specifically indicated otherwise. [employer] drug information does not endorse drugs, diagnose patients or recommend therapy. [employer] drug information is an informational resource designed [...] effective or appropriate for any given patient. [employer] does not assume any responsibility for any aspect of healthcare administered with the aid of information [employer] provides. The information contained herein is not intended to cover all possible uses, directions, precautions, warnings, drug interactions, allergic reactions, or adverse effects. If you have questions about the drugs you are taking, check with your doctor, nurse or pharmacist. Copyright 7992-5884 [employer]. Version: 15.. Revision Date: 02/11/2021. guaifenesin (gwye [...] may report side effects to FDA at 2-909-KSY-3504. What other drugs will affect guaifenesin ? Avoid using this medicine with other drugs that cause drowsiness or slow your breathing (such as opioid medicine, a muscle relaxer, or medicine for anxiety or seizures). Ask a doctor or pharmacist before using any other medication, including prescription and ruko-eck-fgbbfeu medicines, vitamins, and herbal products. Not all [...] to ensure that the information provided by [employer]. ('[employer]') is accurate, up-to-date, and complete, but no guarantee is made to that effect. Drug information contained herein may be time sensitive. [employer] information has been compiled for use by healthcare practitioners and consumers in the [place] and therefore [employer] does not warrant that uses outside of the [place] are appropriate, unless specifically indicated otherwise. [employer]'s drug information does not endorse drugs, diagnose patients or recommend therapy. [employer] drug information is an informational resource designed [...] effective or appropriate for any given patient. [facility] does not assume any responsibility for any aspect of healthcare administered with the aid of information [facility] provides. The information contained herein is not intended to cover all possible uses, directions, precautions, warnings, drug interactions, allergic reactions, or adverse effects. If you have questions about the drugs you are taking, check with your doctor, nurse or pharmacist. Copyright 3580-1180 [employer] [facility] Version: 7.01. Revision Date: 07/30/2018. [...] Assistance with quitting is available by contacting 3-575-WSQW-NOW. This is a free resource providing counseling, [...] and 14.9 ) ANC #: 3 K/uL [place] Percent Man: 5 % -- Normal range between ( 4 and 5 ) Neutrophil Percent Man: 58 % -- Normal range between ( 50 and 65 ) Eos Percent Man: 6 % -- Normal range between ( 0 and 3 ) Anisocytosis: 1+ Platelet Ct Estimate: Adequate [place] Percent Man: 2 % -- Normal range [...] range between ( 0.0 and 7.0 ) [place] #: 0.60 K/uL -- Normal range between ( 0.16 and 1.00 ) Eos #: 0.20 x10(3)/uL -- Normal range between ( 0.00 and 0.80 ) [place] %: 9.7 % -- Normal range between [...] ) Urine Bilirubin Dipstick: Negative Urine Specific [place]: *1.028 -- Normal range between ( 1.005 [...] was given the opportunity to ask questions. Patient/Rent Collector Name: documented in this encounter Plan of Treatment Not on file documented as of this encounter Visit Diagnoses Not on filedocumented in this encounter
--- OUTSIDE RECORDS SUMMARY | 2025-01-14 12:43 | XMS_ITS | Encounter Summary ---
Author Organization [employer] ([place], [place], [place], [place]) Address [address] [place] [address] Care Team Providers Care Tile Setter Supervisor Name Role Phone Unavailable Primary Care Provider Unavailabl e Encounter Details Date Type Department Care Team (Late st Contact Info) Description 08/19/2021 Transcribed Document [facility] Radiology [address] [place] [address] Saleem Jimenes MD [address] [place] [address] Social History Tobacco Use Types Packs/Day [...] mg, 12 mL, 124 mL/Hr, IV Piggyback, [id number] Dulcolax Laxative: 5 mg, Oral, Daily, PRN: Constipation DuoNeb 0.5 mg-2.5 mg/3 mL inhalation solution: 3 mL, Nebulized Inhalation, RT_Q6H, PRN: Shortness of Breath Flagyl: 500 mg, Oral, TID Geodon: 40 mg, Oral, BID HYDROmorphone: 2 mg, Oral, Q4H, PRN: Breakthrough Pain Imitrex: 100 mg, Oral, Daily, PRN: Migraine Headache LaMICtal: 100 mg, Oral, Daily Lovenox: 40 mg, SubCutaneous, [id number] MiraLax: 17 Gram, Oral, Daily, PRN: Constipation [...] mL 600 mg 12 mL, IV Piggyback, Z82EHnn enoxaparin 40 mg/0.4 mL inj 40 mg 0.4 mL, SubCutaneous, J76FJaj famotidine 20 mg tab 20 mg 1 [...] History of obstructive sleep apnea / IMO [id number] / Confirmed Suicide risk / IMO 60506 / Confirmed, Active Problems (2) History of [...] 29.4 \ Radiology Results (Last 48 hours) [id number] -- 08/14/2021 22:53 CR Chest 1 Vw [...]
--- OUTSIDE RECORDS SUMMARY | 2025-01-14 12:43 | XMS_ITS | Encounter Summary ---
Author Organization [employer] ([place], [place], [place], [place]) Address [address] [place] [address] Care Team Providers Care Bone Drier Operator Name Role Phone Unavailable Primary Care Provider Unavailabl e Encounter Details Date Type Department Care Team (Late st Contact Info) Description 08/19/2021 Transcribed Document [facility] [place] Family Medicine [facility] [place] [address] ProviderMaría MD [address] [place] [address] Social History Tobacco Use Types [...] HEMA METCALF, PT - 08/19/2021 14:14 EDT Mcc Goals Mobility/Bed Mobility LTG PT Grid Goal [...] HEMA METCALF, PT - 08/19/2021 14:14 EDT Electronically signed by Roman Eckert Conversion Multimedia Production Assistant Cerner at 09/18/2022 8:58 AM CDT documented in this encounter Plan of Treatment Not on file documented as of this encounter Visit Diagnoses Not on filedocumented in this encounter
--- OUTSIDE RECORDS SUMMARY | 2025-01-14 12:43 | XMS_ITS | Encounter Summary ---
Author Organization [employer] ([place], [place], [place], [place]) Address [address] [place] [address] Care Team Providers Care Department Specialist Name Role Phone Unavailable Primary Care Provider Unavailabl e Encounter Details Date Type Department Care Team (Late st Contact Info) Description 08/19/2021 Transcribed Document [facility] [place] Family Medicine [address] [place] [address] ProviderMaría MD [address] [place] [address] Social History Tobacco Use [...] Performed On: 08/19/2021 9:00 EDT by VASYL HGIGINS, EWA-Mobile Patrol OfficerTax Senior Associate Insurance Authorization Authorization and Policy Numbers : Insurance 1 Health Plan: [facility] Policy Number: [id number] Authorization Number: Insurance Primary Name : [facility] Policy Number: [id number] Authorization Status-Primary : Admit approved Reference Number-Primary : [id number] Authorization Number-Primary : [id number] Number of Days Authorized-Primary : 4 Day(s) Authorized Service Begin Date-Primary : 08/14/2021 EST Authorized Service End Date-Primary : 08/18/2021 EDT Authorization Comments-Primary : c/s review for inpt faxed wo to [facility] via quinten. Historical Authorization Comments-Primary : Comment 1: inpt admit approved per fax from [facility] 08/16/21 auth# [id number] NRD 08-19-21 (EBEN HURTADO, Large Sheetfed Press Operator 08/16/2021 12:52) Comment 2: Clinicals submitted on [facility] website for IP approval (ROBERTO CARLOS CISNEROS RN 08/15/2021 12:09) VASYL HIGGINS, EWA-Mobile Patrol Officer - 08/19/2021 9:00 EDT Electronically signed by Tomeka luis enrique Conversion Facility Service Associate Cerner at 09/18/2022 9:21 AM CDT documented in this encounter Plan of Treatment Not on file documented as of this encounter Visit Diagnoses Not on filedocumented in this encounter
--- OUTSIDE RECORDS SUMMARY | 2025-01-14 12:43 | XMS_ITS | Encounter Summary ---
Author Organization [email or web address] ([place], [place], [place], [place]) Address [address] [place] [address] Care Team Providers Care Pattern Maker Name Role Phone Unavailable Primary Care Provider Unavailabl e Encounter Details Date Type Department Care Team (Late st Contact Info) Description 08/19/2021 Transcribed Document [facility] [place] Family Medicine [facility] [place] [address] ProviderMaría MD [address] [place] [address] Social History Tobacco Use Types [...] On: 08/19/2021 11:33 EDT by Zara Donald, Manager Meeting Primary Insurance Authorization Authorization and Policy Numbers : Insurance 1 Health Plan: [facility] Policy Number: [id number] Authorization Number: Insurance Primary Name : [facility] Policy Number: [id number] Authorization Status-Primary : Apprv contin stay Reference Number-Primary : [id number] Authorization Number-Primary : [id number] Number of Days Authorized-Primary : 9 Day(s) Authorized Service Begin Date-Primary : 08/14/2021 EST Authorized Service End Date-Primary : 08/23/2021 EDT Authorization Comments-Primary : Authorized per fax 08/19/21 @ 0837. This request for inpatient services has been approved x10 days. Next review due 08/24/21. -Efrem Gillette RN. Historical Authorization Comments-Primary : Comment 1: c/s review for inpt faxed wo to [facility] via cerner. (VASYL HIGGINS, RN-Second Facing Baster 08/19/2021 09:00) Comment 2: inpt admit approved per fax from [facility] 08/16/21 auth# [id number] NRD 08-19-21 (EBEN HURTADO, Pharmacy Manager 08/16/2021 12:52) Comment 3: Clinicals submitted on [facility] website for IP approval (ROBERTO CARLOS CISNEROS RN 08/15/2021 12:09) Zara Donald, Manager Meeting - 08/19/2021 11:33 EDT documented in this encounter Plan of Treatment Not on file documented as of this encounter Visit Diagnoses Not on filedocumented in this encounter
--- OUTSIDE RECORDS SUMMARY | 2025-01-14 12:43 | XMS_ITS | Encounter Summary ---
Author Organization [employer] ([place], [place], [place], [place]) Address [address] [place] [address] Care Team Providers Care Flight Inspector Name Role Phone Unavailable Primary Care Provider Unavailabl e Encounter Details Date Type Department Care Team (Late st Contact Info) Description 08/14/2021 Transcribed Document [facility] [place] Family Medicine [place] [address] ProviderMaría MD [address] [place] [address] Social History Tobacco Use Types Packs/Day [...] - Historical Provider, - 08/14/2021 11:19 PM IT SYSTEMS ENGINEER Evaluation, Physical Therapy Entered On: 08/15/2021 10:47 [...] SONY REYNA, PT - 08/15/2021 10:36 EDT Mcc Goals Mobility/Bed Mobility LTG PT [...] SONY REYNA, PT - 08/15/2021 10:36 EDT [place] PT Charges PT Eval Moderate Complexity : 1 SONY REYNA, PT - 08/15/2021 10:36 EDT documented in this encounter Plan of Treatment Not on file documented as of this encounter Visit Diagnoses Not on filedocumented in this encounter
--- OUTSIDE RECORDS SUMMARY | 2025-01-14 12:43 | XMS_ITS | Encounter Summary ---
Author Organization [employer] ([place], [place], [place], [place]) Address [address] [place] [address] Care Team Providers Care Quarry Supervisor Open Pit Name Role Phone Unavailable Primary Care Provider Unavailabl e Encounter Details Date Type Department Care Team (Late st Contact Info) Description 08/19/2021 Transcribed Document [facility] [facility] [place] [address] ProviderMaría MD [address] [place] [address] Social History Tobacco Use Types [...] 1975 Associated Diagnoses: None Author: Todd Davidson, ELIGIBILITY CONSULTANT-PHARMACIST Pain Management Pharmacy Consultation HPI: [id number] [...] respiratory arrest last month and admitted to [facility]. Patient CO2 was reportedly greater than 100. Patient was admitted and eventually had to have a trach and peg placed. Patient was tolerating po intake and was about to have peg tube removed next week. Relevant PMH: peg tube placement, recent respiratory arrest, obstructive sleep apnea, tobacco abuse, morbid obesity. 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
--- OUTSIDE RECORDS SUMMARY | 2025-01-14 12:43 | XMS_ITS | Encounter Summary ---
Author Organization [employer] ([place], [place], [place], [place]) Address [address] [place] [address] Care Team Providers Care Ball Maker Name Role Phone Unavailable Primary Care Provider Unavailabl e Encounter Details Date Type Department Care Team (Late st Contact Info) Description 08/19/2021 Transcribed Document [facility] Family Medicine [facility] [place] [address] ProviderMaría MD [address] [place] [address] Social History Tobacco Use Types [...] Historical ProviderMD - 08/19/2021 3:18 PM CDT [facility] [place], [place] [address] ZANDER LUCERO :1975 Visit Time:08/14/2021 Your Visit [...] [facility] Home Health Services: [facility] [phone] Medical Equipment for Home Use: Patient Aides (your medical equipment provider)[phone] Transportation: family Discharge Activity: Discharge Activity: Activity as tolerated Diet: Discharge Diet: Heart healthy diet Follow-Up Appointments Follow Up with EMY MUSA (REF)ZACHARY When 08/30/2021 11:30 AM EDT Comments Primary care follow up appointment has been made Bring discharge instructions with you Where: [address] [place] [address] THANH Philippe [address]- [phone] Medications What How Much When Instructions Next Dose carvedilol (carvedilol 12.5 mg oral tablet) 1 Tablet(s) Oral Two Times A Day Duration: 30 Day(s) Pickup at [facility] [place] [address] 9 doxycycline (doxycycline hyclate 100 mg oral tablet) 1 Tablet(s) Oral Two Times A Day Duration: 7 Day(s) Pickup at [place] [address] 9 guaiFENesin (Mucinex 600 mg oral tablet, extended release) 2 Tablet(s) Oral Two Times A Day Duration: 7 Day(s) Pickup at [facility] [place] [address] 9 metroNIDAZOLE (Flagyl 500 mg oral tablet) 1 Tablet(s) Oral Three Times A Day Duration: 6 Day(s) Pickup at [place] [address] 9 furosemide (furosemide 20 mg oral tablet) [...] Oral Two Times A Day Pharmacy Information [facility] [place]: [address] [facility] [address] [place], [place] [id number] [phone] Take your medications faithfully. Do NOT skip [...] including vitamins, herbs, eye drops, creams, and ylow-eqs-ipnbqtl medicines. ??? Any problems you or family [...] tells you to take them. ? Taking nyjs-urr-wnjfbna medicines, vitamins, herbs, and supplements. ??? Do [...] provider. Document Revised: 10/02/2020 Document Reviewed: 10/02/2020 [employer] Patient Education ?? 2020 Review Trackers. amoxicillin and clavulanate potassium (am OK i [...] may report side effects to FDA at 3-385-BZF-5964. What other drugs will affect amoxicillin and clavulanate potassium? Tell your doctor about all your other medicines, especially: ?? allopurinol; ?? probenecid; or ?? a blood thinner--warfarin, Coumadin, Jantoven. This list is not complete. Other drugs may affect amoxicillin and clavulanate potassium, including prescription and vltd-ilj-jedmzqr medicines, vitamins, and herbal products. Not all [...] to ensure that the information provided by [employer]. ('[employer]') is accurate, up-to-date, and complete, but no guarantee is made to that effect. Drug information contained herein may be time sensitive. [employer] information has been compiled for use by healthcare practitioners and consumers in the [place] and therefore [employer] does not warrant that uses outside of the [place] are appropriate, unless specifically indicated otherwise. [employer] drug information does not endorse drugs, diagnose patients or recommend therapy. [employer] drug information is an informational resource designed [...] effective or appropriate for any given patient. [employer] does not assume any responsibility for any aspect of healthcare administered with the aid of information [employer] provides. The information contained herein is not intended to cover all possible uses, directions, precautions, warnings, drug interactions, allergic reactions, or adverse effects. If you have questions about the drugs you are taking, check with your doctor, nurse or pharmacist. Copyright 9566-9137 [employer]. Version: 12.. Revision Date: 07/29/2019. carvedilol (AVEL [...] may report side effects to FDA at 1-607-IBD-7144. What other drugs will affect carvedilol? Sometimes it is not safe to use certain medications at the same time. Some drugs can affect your blood levels of other drugs you take, which may increase side effects or make the medications less effective. Other drugs may affect carvedilol, including prescription and mjoe-tmw-uiheajf medicines, vitamins, and herbal products. Tell your [...] to ensure that the information provided by [employer]. ('[employer]') is accurate, up-to-date, and complete, but no guarantee is made to that effect. Drug information contained herein may be time sensitive. [employer] information has been compiled for use by healthcare practitioners and consumers in the [place] and therefore [employer] does not warrant that uses outside of the [place] are appropriate, unless specifically indicated otherwise. [employer] drug information does not endorse drugs, diagnose patients or recommend therapy. [employer] drug information is an informational resource designed [...] effective or appropriate for any given patient. [employer] does not assume any responsibility for any aspect of healthcare administered with the aid of information [employer] provides. The information contained herein is not intended to cover all possible uses, directions, precautions, warnings, drug interactions, allergic reactions, or adverse effects. If you have questions about the drugs you are taking, check with your doctor, nurse or pharmacist. Copyright 5857-6606 [employer]. Version: 16.01. Revision Date: 09/27/2018. doxycycline (oral/injection) [...] or life-threatening conditions such as anthrax or [place] spotted fever. The benefit of treating a [...] may report side effects to FDA at 9-786-DRX-7261. What other drugs will affect doxycycline? Sometimes it is not safe to use certain medications at the same time. Some drugs can affect your blood levels of other drugs you take, which may increase side effects or make the medications less effective. Other drugs may affect doxycycline, including prescription and pqoj-frf-ahcyibw medicines, vitamins, and herbal products. Tell your [...] to ensure that the information provided by [employer]. ('[employer]') is accurate, up-to-date, and complete, but no guarantee is made to that effect. Drug information contained herein may be time sensitive. [employer] information has been compiled for use by healthcare practitioners and consumers in the [place] and therefore [employer] does not warrant that uses outside of the [place] are appropriate, unless specifically indicated otherwise. [employer] drug information does not endorse drugs, diagnose patients or recommend therapy. [employer] drug information is an informational resource designed [...] effective or appropriate for any given patient. [employer] does not assume any responsibility for any aspect of healthcare administered with the aid of information [employer] provides. The information contained herein is not intended to cover all possible uses, directions, precautions, warnings, drug interactions, allergic reactions, or adverse effects. If you have questions about the drugs you are taking, check with your doctor, nurse or pharmacist. Copyright 5382-7230 [employer]. Version: 21.04. Revision Date: 04/08/2020. metronidazole (oral/injection) [...] (more likely to occur while taking metronidazole label designer): ?? numbness, tingling, or burning pain in [...] may report side effects to FDA at 2-560-NWR-7837. What other drugs will affect metronidazole? Sometimes [...] may affect metronidazole. This includes prescription and pidx-oay-xjexmaq medicines, vitamins, and herbal products. Not all [...] to ensure that the information provided by [employer]. ('[employer]') is accurate, up-to-date, and complete, but no guarantee is made to that effect. Drug information contained herein may be time sensitive. [employer] information has been compiled for use by healthcare practitioners and consumers in the [place] and therefore [employer] does not warrant that uses outside of the [place] are appropriate, unless specifically indicated otherwise. [employer]'s drug information does not endorse drugs, diagnose patients or recommend therapy. [employer] drug information is an informational resource designed [...] effective or appropriate for any given patient. [employer] does not assume any responsibility for any aspect of healthcare administered with the aid of information [employer] provides. The information contained herein is not intended to cover all possible uses, directions, precautions, warnings, drug interactions, allergic reactions, or adverse effects. If you have questions about the drugs you are taking, check with your doctor, nurse or pharmacist. Copyright 3903-0171 [employer]. Version: 15.. Revision Date: 02/11/2021. guaifenesin (gwye [...] may report side effects to FDA at 8-531-UAO-9441. What other drugs will affect guaifenesin ? Avoid using this medicine with other drugs that cause drowsiness or slow your breathing (such as opioid medicine, a muscle relaxer, or medicine for anxiety or seizures). Ask a doctor or pharmacist before using any other medication, including prescription and gwql-pev-sbvgppp medicines, vitamins, and herbal products. Not all [...] to ensure that the information provided by [employer]. ('Multum') is accurate, up-to-date, and complete, but no guarantee is made to that effect. Drug information contained herein may be time sensitive. [employer] information has been compiled for use by healthcare practitioners and consumers in the [place] and therefore [employer] does not warrant that uses outside of the [place] are appropriate, unless specifically indicated otherwise. [employer] drug information does not endorse drugs, diagnose patients or recommend therapy. [employer] drug information is an informational resource designed [...] effective or appropriate for any given patient. [facility] does not assume any responsibility for any aspect of healthcare administered with the aid of information [facility] provides. The information contained herein is not intended to cover all possible uses, directions, precautions, warnings, drug interactions, allergic reactions, or adverse effects. If you have questions about the drugs you are taking, check with your doctor, nurse or pharmacist. Copyright 1714-6764 [employer]. Version: 7.01. Revision Date: 07/30/2018. Emergency Awareness [...] Assistance with quitting is available by contacting 1-963-KWYS-NOW. This is a free resource providing counseling, [...] and 14.9 ) ANC #: 3 K/uL [place] Percent Man: 5 % -- Normal range between ( 4 and 5 ) Neutrophil Percent Man: 58 % -- Normal range between ( 50 and 65 ) Eos Percent Man: 6 % -- Normal range between ( 0 and 3 ) Anisocytosis: 1+ Platelet Ct Estimate: Adequate Thomson Percent Man: 2 % -- Normal range [...] range between ( 0.0 and 7.0 ) [place] #: 0.60 K/uL -- Normal range between ( 0.16 and 1.00 ) Eos #: 0.20 x10(3)/uL -- Normal range between ( 0.00 and 0.80 ) [place] %: 9.7 % -- Normal range between [...] Urine Bilirubin Dipstick: Negative Urine Specific [place]: *1.028 -- Normal range between ( 1.005 [...] was given the opportunity to ask questions. Patient/Inspector Precision Name: Patient/Inspector Precision Signature: Relationship to Patient: Electronically signed by Tomeka, [facility] Conversion [employer] Physical Education Teacher Avery at 09/18/2022 9:25 AM CDT documented in this encounter Plan of Treatment Not on file documented as of this encounter Visit Diagnoses Not on filedocumented in this encounter
--- OUTSIDE RECORDS SUMMARY | 2025-01-14 12:43 | XMS_ITS | Encounter Summary ---
Author Organization [employer] ([place], [place], [place], [place]) Address [address] [place] [address] Care Team Providers Care Curriculum Coordinator Name Role Phone Unavailable Primary Care Provider Unavailabl e Encounter Details Date Type Department Care Team (Late st Contact Info) Description 08/17/[address] [facility] [place] Family Medicine [facility] [place] [address] ProviderMaría MD [address] [place] [address] Social History Tobacco Use Types [...] On: 08/17/2021 15:03 EDT by ERVIN HERNANDEZ, Ecommerce Marketing Manager Care Management Progress Note Discharge Arrangements : [...] Attend Multidisciplinary Rounds? : Yes ERVIN HERNANDEZ, Ecommerce Marketing Manager - 08/17/2021 15:03 EDT Narrative Progress Note [...] DCP: home with family support. JEANNETTE MANCERA Ecommerce Marketing Manager - 08/16/21 17:36:38 ERVIN HERNANDEZ Ecommerce Marketing Manager - 08/17/2021 15:03 EDT documented in this encounter Plan of Treatment Not on file documented as of this encounter Visit Diagnoses Not on filedocumented in this encounter
--- OUTSIDE RECORDS SUMMARY | 2025-01-14 12:43 | XMS_ITS | Encounter Summary ---
Author Organization [employer] ([place], [place], [place], [place]) Address [address] [place] [address] Care Team Providers Care Client Services Assistant Name Role Phone Unavailable Primary Care Provider Unavailabl e Encounter Details Date Type Department Care Team (Late st Contact Info) Description 08/19/2021 Transcribed Document [facility] [place] Family Medicine [facility] [place] [address] ProviderMaría MD [address] [place] [address] Social History Tobacco Use Types [...]
--- OUTSIDE RECORDS SUMMARY | 2025-01-14 12:43 | XMS_ITS | Encounter Summary ---
Author Organization [employer] ([place], [place], [place], [place]) Address [address] [place] [address] Care Team Providers Care Tray Setter Name Role Phone Unavailable Primary Care Provider Unavailabl e Encounter Details Date Type Department Care Team (Late st Contact Info) Description 08/17/2021 Transcribed Document [facility] [place] Family Medicine [facility] [place] [address] ProviderMaría MD [address] [place] [address] Social History Tobacco Use Types [...] form. Electronically signed by Roman Eckert Conversion Conflict Resolution Professional Cerner at 09/23/2022 8:14 AM CDT documented in this encounter Plan of Treatment Not on file documented as of this encounter Visit Diagnoses Not on filedocumented in this encounter
[2025-01-14 12:59] LABS: ABG HCO3 31.9 mmhg (22.0-26.0); ABG PH 7.26 mmol/L (7.35-7.45); ABG PO2 59.5 mmhg (80-100); ABG TCO2 34.1 mmhg (23-27)
[2025-01-14 13:07] LABS: ABG PCO2 72.5 mmhg (35.0-45.0); Source L RADIAL
== END 2025-01-14 23:59 | disposition home or self-care (01) ==
LOC: LAB 12:38
PROVIDERS: PCP Family Medicine; Visit Provider Internal Medicine Pulmonary Disease
DX: R06.02 Shortness of breath (principal)
CPT/HCPCS: 82803

== ENCOUNTER 2025-01-20 14:26 | Outpatient (CLI) | payer MEDICAID, SELFPAY ==
--- OUTSIDE RECORDS SUMMARY | 2025-01-20 14:29 | XMS_ITS | Clinical Summary ---
Author Organization [facility] Address [address] [place] [address] Phone Care Team Providers Care Ec Teacher Name Role Phone Unavailable Unavailable Conditions or Problems No information available. Medications No information available. Medications Administered No information available. Allergies, Adverse Reactions, Alerts No information available. Results No information available. Plan of Care No information available. Procedures No information available. Vital Signs No information available. Immunizations No information available. Advance Directives No information available.
--- OUTSIDE RECORDS SUMMARY | 2025-01-20 14:29 | XMS_ITS | Encounter Summary ---
Author Organization [employer] ([place], [place], [place], [place]) Address [address] [place] [address] Care Team Providers Care Tools Programmer Name Role Phone Unavailable Primary Care Provider Unavailabl e Encounter Details Date Type Department Care Team (Late st Contact Info) Description 08/16/[address] [facility] Radiology 1 [place] [address] Saleem Jimenes MD [address] [place] [address] Social History Tobacco Use Types Packs/Day [...] mg, 12 mL, 124 mL/Hr, IV Piggyback, [id number] Depakote ER: 500 mg, Oral, Daily Dilaudid: 0.5 mg, IV Push, Q2H, PRN: Pain (Severe 7-10) Dulcolax Laxative: 5 mg, Oral, Daily, PRN: Constipation DuoNeb 0.5 mg-2.5 mg/3 mL inhalation solution: 3 mL, Nebulized Inhalation, RT_Q6H, PRN: Shortness of Breath Geodon: 40 mg, Oral, Daily Imitrex: 100 mg, Oral, Daily LaMICtal: 100 mg, Oral, Daily Lovenox: 40 mg, SubCutaneous, R07QQuh MiraLax: 17 Gram, Oral, Daily, PRN: Constipation [...] hours oral tablet, extended release: Tab, Oral, T35ZBgu, 0 Refill(s) acetaminophen-HYDROcodone 325 mg-5 mg oral [...] mL 600 mg 12 mL, IV Piggyback, Q48TPti divalproex sodium ER 500 mg tab 500 mg 1 Tab, Oral, Daily enoxaparin 40 mg/0.4 mL inj 40 mg 0.4 mL, SubCutaneous, G68CFcy famotidine 20 mg/2 mL inj 20 mg [...] History of obstructive sleep apnea / IMO [id number] / Confirmed Suicide risk / IMO 51363 / Confirmed, Active Problems (2) History of [...] 31.7 \ Radiology Results (Last 48 hours) [id number] -- 08/14/2021 22:53 CR Chest 1 Vw [...] 50 mL 600 mg, IV Piggyback, Inj, V05QQbx, infuse over 30 Minute(s), Routine, Start 08/17/21 9:00:00 EDT, 124 mL/Hr, Indication: Skin and Skin Structure Infection ERIKA GRANADO MD-INF divalproex sodium (Depakote ER) 500 mg, Oral, ER Tab, Daily, Start 08/15/21 11:44:00 EDT SALEEM JIMENES MD-INT enoxaparin (Lovenox) 40 mg, SubCutaneous, Inj, J05ABxr, Routine, Start 08/15/21 12:00:00 EDT, 08/15/21 12:21:00 [...] 250 mL 1,500 mg, IV Piggyback, Inj, W63EJvs, infuse over 60 Minute(s), Start 08/15/21 11:00:00 [...]
--- OUTSIDE RECORDS SUMMARY | 2025-01-20 14:29 | XMS_ITS | Encounter Summary ---
Author Organization [employer] ([place], [place], [place], [place]) Address [address] [place] [address] Care Team Providers Care Laundry Pricing Clerk Name Role Phone Unavailable Primary Care Provider Unavailabl e Encounter Details Date Type Department Care Team (Late st Contact Info) Description 08/16/2021 Transcribed Document [facility] [place] Family Medicine [address] [place] [address] ProviderMaría MD [address] [place] [address] Social History Tobacco Use Types [...]
--- OUTSIDE RECORDS SUMMARY | 2025-01-20 14:29 | XMS_ITS | Encounter Summary ---
Author Organization [employer] ([place], [place], [place], [place]) Address [address] [place] [address] Care Team Providers Care Restuarant Crew Worker Name Role Phone Unavailable Primary Care Provider Unavailabl e Encounter Details Date Type Department Care Team (Late st Contact Info) Description 08/16/2021 Transcribed Document [facility] [place] [facility] [place] [address] ProviderMaría MD [address] [place] [address] Social History Tobacco Use Types [...] COVID-19 pneumonia, and recent respiratory arrest at [facility] requiring tracheostomy/PEG about a month ago with transfer to [facility]. She was discharged on 08/11. She has been tolerating oral intake and was scheduled to have PEG removed next week. She began having pain around the PEG tube site around 3 days ago with the area becoming more red with burning sensation prompting her to come to [facility] ED on 08/14/21. She [...] m - 1,500 mg, IV Piggyback, Inj, V69NZul, infuse over 60 Minute(s) Anticoagulant enoxaparin (Lovenox) - 40 mg, SubCutaneous, Inj, K97QUmm, Routine Cardiovascular hydrALAZINE - 10 mg, Oral, [...] No tenderness, No deformity. Integumentary: Warm, Dry, [place], No pallor, No rash, PEG tube site [...] ALB L 2.6 (AUG 14) , ACC: [id number] ORDER: Culture Wound and Stain DATE: 08/15/2021 13:10 SOURCE: Drainage SITE: Trachea Reports Pre 08/16/2021 06:24 Culture in progress GS 08/15/2021 20:07 No cells seen No organisms seen. == ACC: [id number] ORDER: Culture Wound and Stain DATE: 08/15/2021 13:01 SOURCE: Surgical Swab SITE: Abdomen Reports Pre 08/16/2021 06:23 Culture in progress GS 08/15/2021 14:15 No organisms seen. Few White Blood Cells == ACC: [id number] ORDER: Culture Blood DATE: 08/14/2021 19:11 SOURCE: Blood SITE: Reports Pre 08/15/2021 23:01 No growth at 1 day. Pre 08/15/2021 16:01 Culture less than 24 Hrs old == ACC: [id number] ORDER: Culture Blood DATE: 08/14/2021 19:11 SOURCE: Blood SITE: Reports Pre 08/15/2021 23:01 No growth at 1 day. Pre 08/15/2021 16:01 Culture less than 24 Hrs old == . Chest x-ray results Radiology Results (Last 48 hours) [id number] -- 08/14/2021 22:53 CR Chest 1 Vw [...] care per GI. 5. Obtain records from [facility] and [facility] and place on chart. 6. Continue [...]
--- OUTSIDE RECORDS SUMMARY | 2025-01-20 14:30 | XMS_ITS | Encounter Summary ---
Author Organization [employer] ([place], [place], [place], [place]) Address [address] [place] [address] Care Team Providers Care Shake Feeder Name Role Phone Unavailable Primary Care Provider Unavailabl e Encounter Details Date Type Department Care Team (Late st Contact Info) Description 08/15/2021 Transcribed Document [facility] [place] Family Medicine [address] [place] [address] ProviderMaría MD [address] [place] [address] Social History Tobacco Use Types [...] On: 08/15/2021 13:29 EDT by EBEN STEPHENS, RN-Vending Machine Filler Initial Assessment I Previously Documented Living Environment : No qualifying data available. Living Situation : Home Patient Lives With : Parent(s) Emergency Contact #1 : Kallie Meredith Emergency Contact #1 Phone Number : [phone] Emergency Contact #1 Relationship : Mother/hcs Emergency Contact #2 : NA Emergency Contact #2 Phone Number : NA Emergency Contact #2 Relationship : NA Identified Medical Decision Maker : Kallie Meredith Identified Medical Decision Maker Enter Doctors Name : Beny Chris MD Does Patient have PCP Listed? : Yes Medical Durable Power of Water Purifier Operator Name : no Legal Guardian : No Date Hospital Obtained Advance Directive : 08/15/2021 EST Is Guardianship Needed : No EBEN STEPHENS RN-Vending Machine Filler - 08/15/2021 13:29 EDT Initial Assessment II Sensory and Motor Deficits : Weakness Current Home Treatments and Equipment : Oxygen therapy, Tracheostomy care, Walker Home Equipment Contact Information : [facility] [phone] Does the Patient have a Floor to SNF Benefit? : No BEEN STEPHENS RN-Vending Machine Filler - 08/15/2021 13:29 EDT Discharge Needs I Anticipated Discharge Date : 08/18/2021 EDT Anticipated Discharge To, CM : Home with home health, Rehabilitation Unit Current Home Treatment/Equipment : Current Home Treatment/Equipment No qualifying data available. Post Acute/Home Treatments : Oxygen therapy, Tracheostomy care, Walker Documentation Status Complete : Yes EBEN STEPHENS RN-Vending Machine Filler - 08/15/2021 13:29 EDT Discharge Needs II Professional Skilled Services : Professional Skilled Services No qualifying data available. Needs Assistance with Transportation : No Discharge Options Discussed with Patient : Acute rehabilitation, Home Health Patient Discharge Goal : Home health care EBEN STEPHENS RN-Vending Machine Filler - 08/15/2021 13:29 EDT Narrative Note Narrative [...] spoke with Ms. Badillo. she resides in [place] with mom Kallie. has mentioned equipment to include trach & humidified air provided by [facility]. had bipap in past provided by [employer] not now as has trach. no hh. [facility]. dcp: acute rehab vs hh. she is adamant about going home. she would consider home health. would like shower chair on dc. she advises mom is poa/hcs. mom to bring copy of document. Kallie Spencer, mom, spoke with Ramesh, bedside RN. alert to family bringing living will EBEN STEPHENS, RN-Vending Machine Filler - 08/15/2021 13:29 EDT documented in this encounter Plan of Treatment Not on file documented as of this encounter Visit Diagnoses Not on filedocumented in this encounter
--- OUTSIDE RECORDS SUMMARY | 2025-01-20 14:30 | XMS_ITS | Encounter Summary ---
Author Organization [employer] ([place], [place], [place], [place]) Address [address] [place] [address] Care Team Providers Care Budget Analyst Name Role Phone Unavailable Primary Care Provider Unavailabl e Encounter Details Date Type Department Care Team (Late st Contact Info) Description 08/15/2021 Transcribed Document [facility] Family Medicine [address] [place] [address] ProviderMaría MD [address] [place], [place] [id number] Social History Tobacco Use Types Packs/Day Years [...] : 08/15/2021 13:23 EDT Sandy Owens [facility] - 08/15/2021 13:22 EDT documented in this encounter Plan of Treatment Not on file documented as of this encounter Visit Diagnoses Not on filedocumented in this encounter
--- OUTSIDE RECORDS SUMMARY | 2025-01-20 14:30 | XMS_ITS | Encounter Summary ---
Author Organization [employer] ([place], [place], [place], [place]) Address [address] [place] [address] Care Team Providers Care Clocksmith Name Role Phone Unavailable Primary Care Provider Unavailabl e Encounter Details Date Type Department Care Team (Late st Contact Info) Description 09/30/2021 Transcribed Document [facility] [place] Family Medicine [facility] [place] [address] ProviderMaría MD [address] [place] [address] Social History Tobacco Use Types [...] : 2 - Emergent Tracking Group : [facility] ED Leo Belle RN - 09/30/2021 16:24 EDT Mode of Arrival : Stretcher Transported to ED by : Ambulance/ALS EMS Service : [facility] To Room Via : Stretcher Accompanied By [...] Problems(Active) History of obstructive sleep apnea (IMO :[id number] ) Name of Problem: History of obstructive sleep apnea ; Recorder: SYSTEM, SYSTEM; Confirmation: Confirmed ; Classification: Medical ; Code: [id number] ; Last Updated: 08/15/2021 3:13 EDT ; Life Cycle Date: 08/15/2021 ; Life Cycle Status: Active ; Vocabulary: IMO Suicide risk (IMO :62246 ) Name of Problem: Suicide risk ; Recorder: SYSTEM, SYSTEM; Confirmation: Confirmed ; Classification: Medical ; Code: 29366 ; Last Updated: 08/15/2021 3:13 EDT ; Life Cycle Date: 08/15/2021 ; Life Cycle Status: Active ; Vocabulary: IMO Diagnoses(Active) Shortness of breath Date: 09/30/2021 ; Diagnosis Type: Reason For Visit ; Confirmation: Complaint of ; Clinical Dx: Shortness of breath ; Classification: Medical ; Clinical Service: Non-Specified ; Code: PNED ; Probability: 0 ; Diagnosis Code: [id number] ED Height and Weight Height Source : Stated Height Entry Format : [place] Height, Feet : 5 ft(Converted to: 152 cm, 60 Inch) Height, Inches : 1 Inch(Converted to: 0 ft 1 Inch, 2.54 cm) Clinical Height : 154.94 cm Weight Source, ED : Critical estimated dosing weight Weight Entry Format : [place] Weight, Pounds : 330 lb Clinical Dosing Weight : 150 kg Body Surface Area (BSA) : 2.34 m2 Body Mass Index : 62.5 kg/m2 (>HHI) Waves Body Weight (IBW) : 47.45 kg Leo Belle RN - 09/30/2021 16:24 EDT documented in this encounter Plan of Treatment Not on file documented as of this encounter Visit Diagnoses Not on filedocumented in this encounter
--- OUTSIDE RECORDS SUMMARY | 2025-01-20 14:30 | XMS_ITS | Encounter Summary ---
Author Organization [employer] ([place], [place], [place], [place]) Address [address] [place] [address] Care Team Providers Care Repertoire Manager Name Role Phone Unavailable Primary Care Provider Unavailabl e Encounter Details Date Type Department Care Team (Late st Contact Info) Description 08/16/2021 Transcribed Document [facility] [place] [facility] [address] ProviderMaría MD [address] [place] [address] Social History Tobacco Use Types [...] Review HPI: 46 y/o F presenting to [facility] 2/2 abdominal pain w/ infxn around PEG tube site x 3 days. Per provider H&P: pt endorses burning sensation around site & noted redness. Recent hospital stay at [facility] - just discharged x 3 days prior to admission at [facility]. PMH significant for PEG tube placement, recent [...] well. Thank you, Jacinto Baltazar, IbisD PGY1 Equipment Operator/Laborer/Supervisor Pager: [phone], Ext. [phone] documented in this encounter Plan of Treatment Not on file documented as of this encounter Visit Diagnoses Not on filedocumented in this encounter
--- OUTSIDE RECORDS SUMMARY | 2025-01-20 14:30 | XMS_ITS | Encounter Summary ---
Author Organization [employer] ([place], [place], [place], [place]) Address [address] [place] [address] Care Team Providers Care Director Of Pulmonary Unit Name Role Phone Unavailable Primary Care Provider Unavailabl e Encounter Details Date Type Department Care Team (Late st Contact Info) Description 08/18/2021 Transcribed Document [facility] [place] Family Medicine [facility] [place] [address] ProviderMaría MD [place] [address] Social History Tobacco Use Types [...] On: 08/18/2021 12:56 EDT by Piper Massey Associate Merchandise Planner Rn Care Management Progress Note Discharge Arrangements [...] Meeting Medical Necessity : Yes Piper Massey, Associate Merchandise Planner Rn - 08/18/2021 12:56 EDT Narrative Progress [...] is home with family support. ERVIN HERNANDEZ, [place] Upholsterer - 08/17/21 15:04:51 HD 3/ELOS 3/RRS low [...] DCP: home with family support. JEANNETTE MANCERA, [place] Upholsterer - 08/16/21 17:36:38 Piper Massey, Associate Merchandise Planner Rn - 08/18/2021 12:56 EDT Electronically signed by Tomeka [facility] Conversion Trauma Program Manager Cerner at 09/18/2022 9:32 AM CDT documented in this encounter Plan of Treatment Not on file documented as of this encounter Visit Diagnoses Not on filedocumented in this encounter
--- OUTSIDE RECORDS SUMMARY | 2025-01-20 14:30 | XMS_ITS | Encounter Summary ---
Author Organization [employer] ([place], [place], [place], [place]) Address [address] [place] [address] Care Team Providers Care Manager Six Sigma Name Role Phone Unavailable Primary Care Provider Unavailabl e Encounter Details Date Type Department Care Team (Late st Contact Info) Description 08/15/2021 Transcribed Document [facility] [place] Family Medicine [address] [place] [address] ProviderMaría MD [address] [place], [place] [id number] Social History Tobacco Use Types Packs/Day Years [...] On: 08/15/2021 7:00 EDT by Sandy Owens [facility] Phone Call for Consults Consult Phone Call/Page Attempt : First call Consult Reason : Infected peg tube Physician Requested for Consult : FARIBA LINARES MD-[facility] Provider Service Notified Name : Gastroenterology Date and Time Call Returned : 08/15/2021 8:19 EDT Sandy Owens [facility] - 08/15/2021 8:19 EDT documented in this encounter Plan of Treatment Not on file documented as of this encounter Visit Diagnoses Not on filedocumented in this encounter
--- OUTSIDE RECORDS SUMMARY | 2025-01-20 14:30 | XMS_ITS | Encounter Summary ---
Author Organization [employer] ([place], [place], [place], [place]) Address [address] [place] [address] Care Team Providers Care Track Template Maker Name Role Phone Unavailable Primary Care Provider Unavailabl e Encounter Details Date Type Department Care Team (Late st Contact Info) Description 08/15/2021 Transcribed Document [facility] [place] Family Medicine [facility] [place] [address] ProviderMaría MD [address] [place] [address] Social History Tobacco Use Types [...] Vancomycin HPI: 46 y/o F presenting to [facility] 2/2 abdominal pain w/ infxn around PEG tube site x 3 days. Per provider H&P: pt endorses burning sensation around site & noted redness. Recent hospital stay at [facility] - just discharged x 3 days prior to admission at [facility]. PMH significant for PEG tube placement, recent [...] questions. Thank you, Jacinto Baltazar, PharmD PGY1 Convex Grinder Pager: [phone], Ext. [phone] documented in this encounter Plan of Treatment Not on file documented as of this encounter Visit Diagnoses Not on filedocumented in this encounter
--- OUTSIDE RECORDS SUMMARY | 2025-01-20 14:30 | XMS_ITS | Encounter Summary ---
Author Organization [employer] ([place], [place], [place], [place]) Address [address] [place] [address] Care Team Providers Care Air Traffic Control Equipment Repairer Name Role Phone Unavailable Primary Care Provider Unavailabl e Encounter Details Date Type Department Care Team (Late st Contact Info) Description 08/18/2021 Transcribed Document [facility] Radiology [address] [place] [address] Saleem Jimenes MD [address] [place] [address] Social History Tobacco Use Types Packs/Day [...] mg, 12 mL, 124 mL/Hr, IV Piggyback, I79OEsk Dulcolax Laxative: 5 mg, Oral, Daily, PRN: Constipation DuoNeb 0.5 mg-2.5 mg/3 mL inhalation solution: 3 mL, Nebulized Inhalation, RT_Q6H, PRN: Shortness of Breath Geodon: 40 mg, Oral, BID HYDROmorphone: 2 mg, Oral, Q4H, PRN: Breakthrough Pain Imitrex: 100 mg, Oral, Daily, PRN: Migraine Headache LaMICtal: 100 mg, Oral, Daily Lovenox: 40 mg, SubCutaneous, P21EIac MiraLax: 17 Gram, Oral, Daily, PRN: Constipation [...] mL 600 mg 12 mL, IV Piggyback, E90VCia enoxaparin 40 mg/0.4 mL inj 40 mg 0.4 mL, SubCutaneous, Q02ZXtc famotidine 20 mg tab 20 mg 1 [...] History of obstructive sleep apnea / IMO [id number] / Confirmed Suicide risk / IMO 24938 / Confirmed, Active Problems (2) History of [...] 29.9 \ Radiology Results (Last 48 hours) [id number] -- 08/14/2021 22:53 CR Chest 1 Vw [...]
--- OUTSIDE RECORDS SUMMARY | 2025-01-20 14:30 | XMS_ITS | Encounter Summary ---
Author Organization [employer] ([place], [place], [place], [place]) Address [address] [place] [address] Care Team Providers Care Painter Set Name Role Phone Unavailable Primary Care Provider Unavailabl e Encounter Details Date Type Department Care Team (Late st Contact Info) Description 08/16/[address] [facility] [place] Family Medicine [facility] [place] [address] ProviderMaría MD [address] [place] [address] Social History Tobacco Use Types [...]
--- OUTSIDE RECORDS SUMMARY | 2025-01-20 14:30 | XMS_ITS | Encounter Summary ---
Author Organization [employer] ([place], [place], [place], [place]) Address [address] [place] [address] Care Team Providers Care Extrusion Technician Name Role Phone Unavailable Primary Care Provider Unavailabl e Encounter Details Date Type Department Care Team (Late st Contact Info) Description 08/16/2021 Transcribed Document [facility] [place] [facility] [place] [address] ProviderMaría MD [address] [place] [address] Social History Tobacco Use Types [...] 08/16/2021 10:53 EDT Electronically signed by Tomeka [facility] Conversion Lathe Setup Operator Cerner at 09/18/2022 8:59 AM CDT documented in this encounter Plan of Treatment Not on file documented as of this encounter Visit Diagnoses Not on filedocumented in this encounter
--- OUTSIDE RECORDS SUMMARY | 2025-01-20 14:30 | XMS_ITS | Encounter Summary ---
Author Organization [employer] ([place], [place], [place], [place]) Address [address] [place] [address] Care Team Providers Care Funeral Home General Manager Name Role Phone Unavailable Primary Care Provider Unavailabl e Encounter Details Date Type Department Care Team (Late st Contact Info) Description 08/16/2021 Transcribed Document [facility] [place] Family Medicine [address] [place] [address] ProviderMaría MD [address] [place] [address] Social History Tobacco Use Types [...]
--- OUTSIDE RECORDS SUMMARY | 2025-01-20 14:30 | XMS_ITS | Encounter Summary ---
Author Organization [employer] ([place], [place], [place], [place]) Address [address] [place] [address] Care Team Providers Care Plasterer Stucco Name Role Phone Unavailable Primary Care Provider Unavailabl e Encounter Details Date Type Department Care Team (Late st Contact Info) Description 08/15/2021 Transcribed Document [facility] [place] [facility] [place] [address] ProviderMaría MD [address] [place] [address] Social History Tobacco Use [...]
--- OUTSIDE RECORDS SUMMARY | 2025-01-20 14:30 | XMS_ITS | Encounter Summary ---
Author Organization [employer] ([place], [place], [place], [place]) Address [address] [place] [address] Care Team Providers Care Police Guard Name Role Phone Unavailable Primary Care Provider Unavailabl e Encounter Details Date Type Department Care Team (Late st Contact Info) Description 08/15/2021 Transcribed Document [facility] [place] Family Medicine [address] [place] [address] ProviderMaría MD [address] [place] [address] Social History Tobacco Use Types [...] Historical ProviderMD - 08/15/2021 3:00 AM CDT Telecommunications Manager Details Entered On: 08/16/2021 4:44 EDT Performed On: 08/15/2021 3:00 EDT by Venkat Chow Lpn Order Details Transport Mode Order Detail : Ambulatory Isolation Precautions Order Detail : Standard Precautions Patient Needs Meds Crushed/Liquid : No Venkat Chow Lpn - 08/16/2021 4:44 EDT Electronically signed by Roman Eckert Conversion Revenue Enforcement Collection Agent Avery at 09/18/2022 9:19 AM CDT documented in this encounter Plan of Treatment Not on file documented as of this encounter Visit Diagnoses Not on filedocumented in this encounter
--- OUTSIDE RECORDS SUMMARY | 2025-01-20 14:30 | XMS_ITS | Encounter Summary ---
Author Organization [employer] ([place], [place], [place], [place]) Address [address] [place] [address] Care Team Providers Care Makeup Editor Name Role Phone Unavailable Primary Care Provider Unavailabl e Encounter Details Date Type Department Care Team (Late st Contact Info) Description 08/18/2021 Transcribed Document [facility] [place] Family Medicine [address] [place] [address] ProviderMaría MD [address] [place] [address] Social History Tobacco Use Types [...] Historical ProviderMD - 08/18/2021 3:00 AM CDT Loan Adviser Details Entered On: 08/18/2021 2:01 EDT Performed [...]
--- OUTSIDE RECORDS SUMMARY | 2025-01-20 14:30 | XMS_ITS | Encounter Summary ---
Author Organization [employer] ([place], [place], [place], [place]) Address [address] [place] [address] Care Team Providers Care Bottle Filler Name Role Phone Unavailable Primary Care Provider Unavailabl e Encounter Details Date Type Department Care Team (Late st Contact Info) Description 08/15/2021 Transcribed Document [facility] [place] Medicine [facility] [place] [address] ProviderMaría MD [address] [place] [address] Social History Tobacco Use Types [...] and recent respiratory arrest at [facility] requiring tracheostomy/PEG about a month ago with transfer to [facility]. She was discharged on 08/11. She has been tolerating oral intake and was scheduled to have PEG removed next week. She began having pain around the PEG tube site around 3 days ago with the area becoming more red with burning sensation prompting her to come to [facility] ED on 08/14/21. She denies fever, [...] mg, Oral, Daily Lovenox: 40 mg, SubCutaneous, [id number] MiraLax: 17 Gram, Oral, Daily, PRN: Constipation [...] mL: 1,500 mg, 250 mL/Hr, IV Piggyback, E13SWnd Prescriptions Prescribed Bentyl 20 mg oral tablet: [...] hours oral tablet, extended release: Tab, Oral, [id number], 0 Refill(s) acetaminophen-HYDROcodone 325 mg-5 mg oral [...] m - 1,500 mg, IV Piggyback, Inj, [id number], infuse over 60 Minute(s) Anticoagulant enoxaparin (Lovenox) - 40 mg, SubCutaneous, Inj, N41BOtl, Routine Cardiovascular hydrALAZINE - 10 mg, Oral, [...] History of obstructive sleep apnea / IMO 68311553 / Confirmed Suicide risk / IMO 78516 / Confirmed, Active Problems (2) History of [...] every day smoker . Single, lives in [place], [place]. Smokes daily, no alcohol or illicit [...] No tenderness, No deformity. Integumentary: Warm, Dry, [place], No pallor, No rash, PEG tube site [...] Radiology results Radiology Results (Last 48 hours) [id number] -- 08/14/2021 22:53 CR Chest 1 Vw [...] GI. 5. Obtain records from [facility] and [facility] and place on chart. 6. Continue [...] Dr. Manuelito Smith. Electronically signed by Tomeka [facility] Conversion Firer Glost Kiln Cerner at 09/18/2022 8:51 AM CDT documented in this encounter Plan of Treatment Not on file documented as of this encounter Visit Diagnoses Not on filedocumented in this encounter
--- OUTSIDE RECORDS SUMMARY | 2025-01-20 14:30 | XMS_ITS | Encounter Summary ---
Author Organization [employer] ([place], [place], [place], [place]) Address [address] [place] [address] Care Team Providers Care Torch Solderer Name Role Phone Unavailable Primary Care Provider Unavailabl e Encounter Details Date Type Department Care Team (Late st Contact Info) Description 08/15/2021 Transcribed Document [facility] [place] [facility] [place] [address] ProviderMaría MD [facility] [address] Social History Tobacco Use Types [...] - Historical ProviderMD - 08/15/2021 12:24 AM FINANCIAL SERVICES OFFICER ED Discharge Entered On: 08/15/2021 0:24 EST [...] 08/15/2021 0:24 EST Electronically signed by Tomeka [facility] Conversion Practice Coordinator Cerner at 09/18/2022 8:57 AM CDT documented in this encounter Plan of Treatment Not on file documented as of this encounter Visit Diagnoses Not on filedocumented in this encounter
--- OUTSIDE RECORDS SUMMARY | 2025-01-20 14:30 | XMS_ITS | Encounter Summary ---
Author Organization [employer] ([place], [place], [place], [place]) Address [address] [place] [address] Care Team Providers Care Painter Supervisor Name Role Phone Unavailable Primary Care Provider Unavailabl e Encounter Details Date Type Department Care Team (Late st Contact Info) Description 08/15/2021 Transcribed Document [facility] [place] Radiology [address] [place] [address] Saleem Jimenes MD [address] [place] [address] Social History Tobacco Use Types Packs/Day [...] mL: 1,500 mg, 250 mL/Hr, IV Piggyback, [id number] Incomplete Depakote ER 500 mg oral tablet, extended release: 1 Tab, Oral, Daily SUMAtriptan 100 mg oral tablet: 100 mg, Oral, Daily Viibryd 40 mg oral tablet: 40 mg, Oral, Daily Wellbutrin XL 300 mg/24 hours oral tablet, extended release: 1 Tab, Oral, T66GLtr clonazePAM 0.5 mg oral tablet: 0.5 Tab, [...] hours oral tablet, extended release: Tab, Oral, W89QQod, 0 Refill(s) acetaminophen-HYDROcodone 325 mg-5 mg oral [...] 0.9% 250 mL 1,500 mg, IV Piggyback, I12NCrx Continuous: (1) NaCl 0.9% 1,000 mL 1,000 [...] History of obstructive sleep apnea / IMO [id number] / Confirmed Suicide risk / IMO 98337 / Confirmed, Active Problems (2) History of [...] 32.8 \ Radiology Results (Last 48 hours) [id number] -- 08/14/2021 22:53 CR Chest 1 Vw [...] 250 mL 1,500 mg, IV Piggyback, Inj, O74SUdy, infuse over 60 Minute(s), Start 08/15/21 11:00:00 [...]
--- OUTSIDE RECORDS SUMMARY | 2025-01-20 14:30 | XMS_ITS | Referral Summary ---
Author Organization [employer] ([place], [place], [place], [place]) Address [address] [place] [address] Care Team Providers Care Full Time Name Role Phone Unavailable Primary Care Provider [...]
--- OUTSIDE RECORDS SUMMARY | 2025-01-20 14:30 | XMS_ITS | Clinical Summary ---
Author Organization [facility] Address [address] [place] [address] Care Team Providers Care Machine Assembler For Puller Over Name Role Phone Provider, Unknown Primary Care [...] Vaccination (Every 10 Years) 08/18/203208/03 Insurance MEDICAID [place] Care Teams Machine Assembler For Puller Over Relationship Specialty Start Date End Date Provider, Unknown PCP - General 09/12/24
--- OUTSIDE RECORDS SUMMARY | 2025-01-20 14:30 | XMS_ITS | Encounter Summary ---
Author Organization [employer] ([place], [place], [place], [place]) Address [address] [place] [address] Care Team Providers Care Chief Of Service Name Role Phone Unavailable Primary Care Provider Unavailabl e Encounter Details Date Type Department Care Team (Late st Contact Info) Description 08/16/2021 Transcribed Document [facility] [place] [facility] [place] [address] ProviderMaría MD [address] [place] [address] Social History Tobacco Use [...] of the form. Electronically signed by Tomeka, [facility] Conversion Firer Diesel Locomotive Cerner at 09/23/2022 8:14 AM CDT documented in this encounter Plan of Treatment Not on file documented as of this encounter Visit Diagnoses Not on filedocumented in this encounter
--- OUTSIDE RECORDS SUMMARY | 2025-01-20 14:30 | XMS_ITS | Encounter Summary ---
Author Organization [employer] ([place], [place], [place], [place]) Address [address] [place] [address] Care Team Providers Care Construction Electrician Name Role Phone Unavailable Primary Care Provider Unavailabl e Encounter Details Date Type Department Care Team (Late st Contact Info) Description 09/30/2021 Transcribed Document [facility] [place] [facility] [place] [address] ProviderMaría MD [address] [place] [address] Social History Tobacco Use Types [...] Roberts MD - 09/30/2021 8:31 PM CDT [facility] [address] [place], [place] [id number] JAZMINE CARIN :1975 Visit Time:09/30/2021 Your Visit [...] 2 to 3 days Where: [place] [address]- Business (1) Allergies metoclopramide Immunizations This Visit No Immunizations Found Medications What How Much When Instructions Next Dose chlorpheniramine-hydrocodone (Tussionex [employer]Kinetic 10 mg-8 mg/ 5 mL oral suspension, extended release) 5 Milliliter(s) Oral Every 12 hours Duration: 5 Day(s) Pickup at [facility]/pharmacy #[id number] doxycycline (doxycycline monohydrate 100 mg oral tablet) 1 Tablet(s) Oral Two Times A Day Duration: 10 Day(s) Pickup at [facility] acetaminophen-hydrocodone (acetaminophen-HYDROcodone 325 mg-5 mg oral [...] Oral Two Times A Day Pharmacy Information [facility]/pharmacy #[id number]: [address] [place], [place] [id number] [phone] [facility] [place]: [address] [facility] [address] [place], [place] [id number] [phone] The home medications listed are only as [...] range between ( 0.0 and 7.0 ) Butts #: 0.49 K/uL -- Normal range between ( 0.16 and 1.00 ) Eos #: 0.03 x10(3)/uL -- Normal range between ( 0.00 and 0.80 ) Butts %: 6.9 % -- Normal range between [...] these instructions at home: Medicines ??? Take [id number] and prescription medicines only as told by [...] and water are not available, use hand residency program coordinator. Contact a health care provider if you [...] provider. Document Revised: 03/03/2020 Document Reviewed: 03/03/2020 [employer] Patient Education ?? 2020 [employer]. Emergency Awareness and Preventative Care STROKE is [...] Assistance with quitting is available by contacting 9-765-ARQUNOW. This is a free resource providing counseling, support, and referral. Or you may contact your personal physician. [place] Suicide Prevention Lifeline: The National Suicide Prevention [...] was given the opportunity to ask questions. Patient/Environmental Quality Analyst Name: Patient/Environmental Quality Analyst Signature: Relationship to Patient: Clinician/Hospital Environmental Quality Analyst Signature: Please Provide a Telephone Number Where You Can Be Reached: Is it Permissible To Leave a Message? Date: documented in this encounter Plan of Treatment Not on file documented as of this encounter Visit Diagnoses Not on filedocumented in this encounter
--- OUTSIDE RECORDS SUMMARY | 2025-01-20 14:30 | XMS_ITS | Encounter Summary ---
Author Organization [employer] ([place], [place], [place], [place]) Address [address] [place] [address] Care Team Providers Care Rn Licensed Practical Name Role Phone Unavailable Primary Care Provider Unavailabl e Encounter Details Date Type Department Care Team (Late st Contact Info) Description 08/15/2021 Transcribed Document [facility] [place] [address] [place] [address] ProviderMaría MD [address] [place] [address] Social History Tobacco Use Types [...]
--- OUTSIDE RECORDS SUMMARY | 2025-01-20 14:30 | XMS_ITS | Encounter Summary ---
Author Organization [employer] ([place], [place], [place], [place]) Address [address] [place] [address] Care Team Providers Care Box Puller Name Role Phone Unavailable Primary Care Provider Unavailabl e Encounter Details Date Type Department Care Team (Late st Contact Info) Description 08/15/2021 Transcribed Document [facility] [place] [address] [place] [address] ProviderMaría MD [address] [place] [address] Social History Tobacco Use Types [...] - Historical ProviderMD - 08/15/2021 12:39 AM COMPONENT ASSEMBLER Meds to Bed Enrollment Entered On: 08/16/2021 10:36 EDT Performed On: 08/15/2021 0:39 EST by Jose Maria Freeman, Bleacher Pulp Cert Lead Meds to Bed Enrollment Patient Enrollment Decision: : Yes/enroll in meds to bed program Jose Maria Freeman Bleacher Pulp Cert Lead - 08/16/2021 10:36 EDT documented in this encounter Plan of Treatment Not on file documented as of this encounter Visit Diagnoses Not on filedocumented in this encounter
--- OUTSIDE RECORDS SUMMARY | 2025-01-20 14:30 | XMS_ITS | Encounter Summary ---
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 GI plans for removal today. Pt [...]
--- OUTSIDE RECORDS SUMMARY | 2025-01-20 14:30 | XMS_ITS | Encounter Summary ---
Author Organization [employer] ([place], [place], [place], [place]) Address [address] [place] [address] Care Team Providers Care Engraver Lettering Name Role Phone Unavailable Primary Care Provider Unavailabl e Encounter Details Date Type Department Care Team (Late st Contact Info) Description 08/18/2021 Transcribed Document [facility] [place] [address] [place] [address] ProviderMaría MD [address] [place] [address] Social History Tobacco Use Types [...] Historical ProviderMD - 08/18/2021 3:04 PM CDT Irena OT Charges Entered On: 08/18/2021 15:05 EDT Performed On: 08/18/2021 15:04 EDT by GIANNA RHODES OTR/L Irena OT Charges OT EA ADDL 15 MIN NO CHARGE : 2 (Comment: MDR [GIANNA RHODES OTR/Az - 08/18/2021 15:05 EDT] ) GIANNA RHODES OTR/Az - 08/18/2021 15:05 EDT Electronically signed by Tomeka [facility] Conversion Shipyard Painting Supervisor Cerner at 09/18/2022 8:58 AM CDT documented in this encounter Plan of Treatment Not on file documented as of this encounter Visit Diagnoses Not on filedocumented in this encounter
--- OUTSIDE RECORDS SUMMARY | 2025-01-20 14:30 | XMS_ITS | Encounter Summary ---
Author Organization [employer] ([place], [place], [place], [place]) Address [address] [place] [address] Care Team Providers Care Exceptional Student Education Aide Name Role Phone Unavailable Primary Care Provider Unavailabl e Encounter Details Date Type Department Care Team (Late st Contact Info) Description 09/30/2021 Transcribed Document [facility] [place] [facility] [place] [address] ProviderMaría MD [address] [place] [address] Social History Tobacco Use Types [...]
--- OUTSIDE RECORDS SUMMARY | 2025-01-20 14:30 | XMS_ITS | Encounter Summary ---
Author Organization [employer] ([place], [place], [place], [place]) Address [address] [place] [address] Care Team Providers Care Service Tester Name Role Phone Unavailable Primary Care Provider Unavailabl e Encounter Details Date Type Department Care Team (Late st Contact Info) Description 08/16/2021 Transcribed Document [facility] [place] Medicine [address] [place] [address] ProviderMaría MD [address] [place] [address] Social History Tobacco Use Types [...] Historical ProviderMD - 08/16/2021 9:[address] [facility] Bi PreOp Summary Primary Physician: LEO DOMINGUEZ MD Finalized Date/Time: 08/16/21 11:09:03 Pt. Name: CARIN LUCERO/Sex: 1975 Female Med Rec #: [id number] Physician: EDUARD DE LOS SANTOS DO-INT Financial #: [id number] Pt. Type: I Room/Bed: [facility]/1 Admit/Disch: 08/14/21 22:53:00 - Institution: [facility] PreOp Case Times Entry 1 [...] I 08/16/21 11:09 Electronically signed by Tomeka [facility] Conversion Tape Controlled Machine Stitcher Cerner at 09/18/2022 9:00 AM CDT documented in this encounter Plan of Treatment Not on file documented as of this encounter Visit Diagnoses Not on filedocumented in this encounter
--- OUTSIDE RECORDS SUMMARY | 2025-01-20 14:30 | XMS_ITS | Encounter Summary ---
Author Organization [employer] ([place], [place], [place], [place]) Address [address] [place] [address] Care Team Providers Care Template Inspector Name Role Phone Unavailable Primary Care Provider Unavailabl e Encounter Details Date Type Department Care Team (Late st Contact Info) Description 09/30/2021 Transcribed Document [facility] [place] [facility] [place] [facility] [place] [address] ProviderMaría MD [address] [place] [address] Social History Tobacco Use Types Packs/Day [...] 16:27:00, rate 84, normal sinus rhythm, normal W[place] & QRS intervals, EP Interp, No STEMI. [...] 17.6 % LOW Lymph # 1.25 x10(3)/uL [place] % 6.9 % [place] # 0.49 K/uL Eos % 0.4 % [...] 09/30/2021 19:00:00, TONJA REED MD. Prescriptions: Prescription Mapping Analyst Pharmacy: doxycycline monohydrate 100 mg oral tablet (Prescribe): 1 Tab, Oral, BID, for 10 Day(s), 20 Tab, 0 Refill(s) Tussionex PennKinetic 10 mg-8 mg/5 mL oral suspension, extended release (Prescribe): 5 mL, Oral, Q12H, for 5 Day(s), 50 mL, 0 Refill(s) , [facility] [id number] . Patient was given the following educational materials: Community-Acquired Pneumonia, Adult. Follow up with: [facility] Within 2 to 3 days. Counseled: Patient, Family, Regarding diagnosis, Regarding diagnostic results, Regarding treatment plan, Patient indicated understanding of instructions. Electronically signed by Roman Eckert Conversion Community Relations Specialist Cerner at 09/18/2022 9:23 AM CDT documented in this encounter Plan of Treatment Not on file documented as of this encounter Visit Diagnoses Not on filedocumented in this encounter
--- OUTSIDE RECORDS SUMMARY | 2025-01-20 14:30 | XMS_ITS | Encounter Summary ---
Author Organization [employer] ([place], [place], [place], [place]) Address [address] [place] [address] Care Team Providers Care Putter In Name Role Phone Unavailable Primary Care Provider Unavailabl e Encounter Details Date Type Department Care Team (Late st Contact Info) Description 08/17/2021 Transcribed Document [facility] [place] [facility] [place] [address] ProviderMaría MD [address] [place] [address] Social History Tobacco Use Types [...] COVID-19 pneumonia, and recent respiratory arrest at [facility] requiring tracheostomy/PEG about a month ago with transfer to [facility]. She was discharged on 08/11. She has been tolerating oral intake and was scheduled to have PEG removed next week. She began having pain around the PEG tube site around 3 days ago with the area becoming more red with burning sensation prompting her to come to [facility] on 08/14/21. She denies fever, chills, [...] mL - 600 mg, IV Piggyback, Inj, [id number], infuse over 30 Minute(s), Routine Anticoagulant enoxaparin (Lovenox) - 40 mg, SubCutaneous, Inj, [id number], Routine Cardiovascular carvedilol - 12.5 mg, Oral, [...] No tenderness, No deformity. Integumentary: Warm, Dry, [place], No pallor, No rash, PEG tube site [...] ALB L 2.6 (AUG 14) , ACC: [id number] ORDER: Culture Wound and Stain DATE: 08/15/2021 13:10 SOURCE: Drainage SITE: Trachea Reports Pre 08/17/2021 09:53 Moderate Growth Coagulase Negative Staphylococcus Moderate Growth Coagulase Negative Staphylococcus #2 Pre 08/16/2021 06:24 Culture in progress GS 08/15/2021 20:07 No cells seen No organisms seen. == ACC: [id number] ORDER: Culture Wound and Stain DATE: 08/15/2021 13:01 SOURCE: Surgical Swab SITE: Abdomen Reports Pre 08/17/2021 10:23 Moderate Growth Coagulase Negative Staphylococcus Moderate Growth Enterococcus species Pre 08/17/2021 09:46 Moderate Growth Coagulase Negative Staphylococcus Moderate Growth Gamma Hemolytic Streptococcus Pre 08/16/2021 06:23 Culture in progress GS 08/15/2021 14:15 No organisms seen. Few White Blood Cells == ACC: [id number] ORDER: Culture Blood DATE: 08/14/2021 19:11 SOURCE: Blood SITE: Reports Pre 08/16/2021 23:01 No growth at 2 days. Pre 08/15/2021 23:01 No growth at 1 day. Pre 08/15/2021 16:01 Culture less than 24 Hrs old == ACC: [id number] ORDER: Culture Blood DATE: 08/14/2021 19:11 SOURCE: [...] Continue wound care. 5. Obtain records from [facility] and [facility] and place on chart. 6. Continue [...]
--- OUTSIDE RECORDS SUMMARY | 2025-01-20 14:30 | XMS_ITS | Encounter Summary ---
Author Organization [employer] ([place], [place], [place], [place]) Address [address] [place] [address] Care Team Providers Care Histology Technologist Name Role Phone Unavailable Primary Care Provider Unavailabl e Encounter Details Date Type Department Care Team (Late st Contact Info) Description 09/30/2021 Transcribed Document [facility] [place] Medicine [address] [place] [address] ProviderMaría MD [address] [place] [address] Social History Tobacco Use Types [...]
--- OUTSIDE RECORDS SUMMARY | 2025-01-20 14:30 | XMS_ITS | Encounter Summary ---
Author Organization [employer] ([place], [place], [place], [place]) Address [address] [place] [address] Care Team Providers Care Director Of Technology Name Role Phone Unavailable Primary Care Provider Unavailabl e Encounter Details Date Type Department Care Team (Late st Contact Info) Description 08/16/2021 Transcribed Document [facility] [place] [facility] [place] [address] ProviderMaría MD [address] [place] [address] Social History Tobacco Use Types [...]
--- OUTSIDE RECORDS SUMMARY | 2025-01-20 14:30 | XMS_ITS | Encounter Summary ---
Author Organization [employer] ([place], [place], [place], [place]) Address [address] [place] [address] Care Team Providers Care Core Analysis Operator Name Role Phone Unavailable Primary Care Provider Unavailabl e Encounter Details Date Type Department Care Team (Late st Contact Info) Description 08/15/2021 Transcribed Document [facility] [place] [facility] [place] [address] ProviderMaría MD [address] [place] [address] Social History Tobacco Use Types [...] - Historical ProviderMD - 08/15/2021 12:22 AM HIGH SCHOOL INDUSTRIAL ARTS TEACHER ED Event Note Entered On: 08/15/2021 0:23 [...]
--- OUTSIDE RECORDS SUMMARY | 2025-01-20 14:30 | XMS_ITS | Encounter Summary ---
Author Organization [employer] ([place], [place], [place], [place]) Address [address] [place] [address] Care Team Providers Care Die Cutting Machine Operator Name Role Phone Unavailable Primary Care Provider Unavailabl e Encounter Details Date Type Department Care Team (Late st Contact Info) Description 08/16/2021 Transcribed Document [facility] [place] [facility] [place] [address] ProviderMaría MD [address] [place] [address] Social History Tobacco Use Types [...] On: 08/16/2021 12:52 EDT by EBEN HURTADO, Silk Winding Machine Operator Primary Insurance Authorization Authorization and Policy Numbers : Insurance 1 Health Plan: [employer] [place] Policy Number: [id number] Authorization Number: Insurance Primary Name : [employer] [place] Policy Number: [id number] Authorization Status-Primary : Admit approved Reference Number-Primary : [id number] Authorization Number-Primary : [id number] Number of Days Authorized-Primary : 4 Day(s) Authorized Service Begin Date-Primary : 08/14/2021 EST Authorized Service End Date-Primary : 08/18/2021 EDT Authorization Comments-Primary : inpt admit approved per fax from [facility] 08/16/21 auth# [id number] NRD 08-19-21 Historical Authorization Comments-Primary : Comment 1: Clinicals submitted on [facility] website for IP approval (ROBERTO CARLOS CISNEROS RN 08/15/2021 12:09) EBEN HURTADO, Silk Winding Machine Operator - 08/16/2021 12:52 EDT Electronically signed by [facility] Conversion Drawer Hardware Worker Cerner at 09/18/2022 8:57 AM CDT documented in this encounter Plan of Treatment Not on file documented as of this encounter Visit Diagnoses Not on filedocumented in this encounter
--- OUTSIDE RECORDS SUMMARY | 2025-01-20 14:30 | XMS_ITS | Encounter Summary ---
Author Organization [employer] ([place], [place], [place], [place]) Address [address] [place] [address] Care Team Providers Care Radio Mechanic Apprentice Name Role Phone Unavailable Primary Care Provider Unavailabl e Encounter Details Date Type Department Care Team (Late st Contact Info) Description 08/18/2021 Transcribed Document [facility] [place] [facility] [place] [address] ProviderMaría MD [address] [place] [address] Social History Tobacco Use Types [...] respiratory arrest last month and admitted to [facility]. Patient CO2 was reportedly greater than 100. Patient was admitted and eventually had to have a trach and peg placed. Patient was tolerating po intake and was about to have peg tube removed next week. Relevant PMH: peg tube placement, recent respiratory arrest, obstructive sleep apnea, tobacco abuse, morbid obesity. Indication: pain knowledge management consultant MD: Saleem Jimenes Allergies: metoclopramide Outpatient Pain [...] for this consult, Hany BaumannD, MPH PGY1 Tow Truck Dispatcher Pager: [phone] documented in this encounter Plan of Treatment Not on file documented as of this encounter Visit Diagnoses Not on filedocumented in this encounter
--- OUTSIDE RECORDS SUMMARY | 2025-01-20 14:30 | XMS_ITS | Encounter Summary ---
Author Organization [employer] ([place], [place], [place], [place]) Address [address] [place] [address] Care Team Providers Care Accounts Payable Or Receivable Clerk Name Role Phone Unavailable Primary Care Provider Unavailabl e Encounter Details Date Type Department Care Team (Late st Contact Info) Description 08/14/2021 Transcribed Document [facility] [place] Family Medicine [address] [place] [address] ProviderMaría MD [address] [place] [address] Social History Tobacco Use Types [...] - Historical ProviderMD - 08/14/2021 9:36 PM SWEEPER BRUSH MAKER MACHINE ED Event Note Entered On: 08/14/2021 21:37 [...] by Tomeka [facility] Conversion Barrel Handler Cerner at 09/18/2022 9:34 AM CDT documented in this encounter Plan of Treatment Not on file documented as of this encounter Visit Diagnoses Not on filedocumented in this encounter
--- OUTSIDE RECORDS SUMMARY | 2025-01-20 14:30 | XMS_ITS | Encounter Summary ---
Author Organization [employer] ([place], [place], [place], [place]) Address [address] [place] [address] Care Team Providers Care Web Site Specialist Name Role Phone Unavailable Primary Care Provider Unavailabl e Encounter Details Date Type Department Care Team (Late st Contact Info) Description 08/16/2021 Transcribed Document [facility] [place] Family Medicine On license of [facility] [place] [address] ProviderMaría MD [address] [place] [address] Social History Tobacco Use Types [...] On: 08/16/2021 17:33 EDT by JEANNETTE MANCERA, Health And Nutrition Specialist Care Management Progress Note Discharge Arrangements : [...] Attend Multidisciplinary Rounds? : Yes JEANNETTE MANCERA Health And Nutrition Specialist - 08/16/2021 17:33 EDT Narrative Progress Note [...] DCP: home with family support. JEANNETTE MANCERA Health And Nutrition Specialist - 08/16/2021 17:33 EDT documented in this encounter Plan of Treatment Not on file documented as of this encounter Visit Diagnoses Not on filedocumented in this encounter
--- OUTSIDE RECORDS SUMMARY | 2025-01-20 14:30 | XMS_ITS | Encounter Summary ---
Author Organization [employer] ([place], [place], [place], [place]) Address [address] [place] [address] Care Team Providers Care Sample Driller Name Role Phone Unavailable Primary Care Provider Unavailabl e Encounter Details Date Type Department Care Team (Late st Contact Info) Description 08/16/2021 Transcribed Document [facility] [place] [address] [place] [address] ProviderMaría MD [address] [place] [address] Social History Tobacco Use Types [...] Historical ProviderMD - 08/16/2021 11:20 AM CDT [facility] PACU Summary Primary Physician: LEO DOMINGUEZ MD Finalized Date/Time: 08/16/21 12:29:38 Pt. Name: CARIN LUCERO/Sex: 1975 Female Med Rec #: [id number] Physician: EDUARD DE LOS SANTOS DO-INT Financial #: [id number] Pt. Type: I Room/Bed: [facility]/ Admit/Disch: 08/14/21 22:53:00 - Institution: [facility] PACU Case Times Entry 1 In [...]
--- OUTSIDE RECORDS SUMMARY | 2025-01-20 14:30 | XMS_ITS | Encounter Summary ---
Author Organization [employer] ([place], [place], [place], [place]) Address [address] [place] [address] Care Team Providers Care Ski Tow Operator Name Role Phone Unavailable Primary Care Provider Unavailabl e Encounter Details Date Type Department Care Team (Late st Contact Info) Description 08/15/2021 Transcribed Document [facility] [place] [facility] [place] [address] ProviderMaría MD [address] [place] [address] Social History Tobacco Use Types [...] ER and was managed there. Rapid Response Ski Tow Operator #1 : EVIE ONEILL RN EVIE ONEILL RN - 08/15/2021 9:02 EDT documented in this encounter Plan of Treatment Not on file documented as of this encounter Visit Diagnoses Not on filedocumented in this encounter
--- OUTSIDE RECORDS SUMMARY | 2025-01-20 14:30 | XMS_ITS | Clinical Summary ---
Author Organization [facility] Address [address] [place] [address] Phone Care Team Providers Care Industrial Commercial Groundskeeper Name Role Phone Unavailable Primary Care Provider [...] to complete this topic Insurance [employer] [place] [id number] [address] [facility] [place] [id number] [address] [facility] [facility] [place] [id number] [address] [facility]
--- OUTSIDE RECORDS SUMMARY | 2025-01-20 14:30 | XMS_ITS | Encounter Summary ---
Author Organization [employer] ([place], [place], [place], [place]) Address [address] [place] [address] Care Team Providers Care Client Analyst Name Role Phone Unavailable Primary Care Provider Unavailabl e Encounter Details Date Type Department Care Team (Late st Contact Info) Description 08/16/2021 Transcribed Document [facility] [place] [address] [place] [address] ProviderMaría MD [address] [place] [address] Social History Tobacco Use Types [...]
--- OUTSIDE RECORDS SUMMARY | 2025-01-20 14:30 | XMS_ITS | Clinical Summary ---
Author Organization [employer] ([place], [place], [place], [place]) Address [address] [place] [address] Care Team Providers Care Receiving Supervisor Name [...]
--- OUTSIDE RECORDS SUMMARY | 2025-01-20 14:30 | XMS_ITS | Encounter Summary ---
Author Organization [employer] ([place], [place], [place], [place]) Address [address] [place] [address] Care Team Providers Care Laborer Bituminous Paving Name Role Phone Unavailable Primary Care Provider Unavailabl e Encounter Details Date Type Department Care Team (Late st Contact Info) Description 08/23/2021 Transcribed Document [facility] [place] [facility] [place] [address] ProviderMaría MD [address] [place] [address] Social History Tobacco Use Types [...] On: 08/23/2021 6:36 EDT by Zara Donald, Dough Panner Primary Insurance Authorization Authorization and Policy Numbers : Insurance 1 Health Plan: [facility] Policy Number: [id number] Authorization Number: Insurance Primary Name : [facility] Policy Number: [id number] Authorization Status-Primary : Approved Auth/Referral Contact Name-Primary : [place] Reference Number-Primary : [id number] Authorization Number-Primary : [id number] Number of Days Authorized-Primary : 9 Day(s) [...] due 08/24/21. -Efrem Gillette RN. (Zara Donald, Dough Panner 08/19/2021 11:33) Comment 2: c/s review for inpt faxed wo to [facility] via [employer]. (VASYL HIGGINS, EWA-Procurement Director 08/19/2021 09:00) Comment 3: inpt admit approved per fax from [facility] 08/16/21 auth# [id number] NRD 08-19-21 (EBEN HURTADO, Sales Correspondence Clerk 08/16/2021 12:52) Comment 4: Clinicals submitted on [facility] website for IP approval (ROBERTO CARLOS CISNEROS RN 08/15/2021 12:09) Zara Donald, Dough Panner - 08/23/2021 6:36 EDT Electronically signed by Roman Eckert Conversion Street Light Servicer Supervisor Cerner at 09/18/2022 9:25 AM CDT documented in this encounter Plan of Treatment Not on file documented as of this encounter Visit Diagnoses Not on filedocumented in this encounter
--- OUTSIDE RECORDS SUMMARY | 2025-01-20 14:30 | XMS_ITS | Encounter Summary ---
Author Organization [employer] ([place], [place], [place], [place]) Address [address] [place] [address] Care Team Providers Care Cashier Supervisor Name Role Phone Unavailable Primary Care Provider Unavailabl e Encounter Details Date Type Department Care Team (Late st Contact Info) Description 08/15/2021 Transcribed Document [facility] [place] Family Medicine [address] [place] [address] ProviderMaría MD [address] [place] [address] Social History Tobacco Use Types [...] - Historical ProviderMD - 08/15/2021 12:00 AM COMPUTER SYSTEMS DESIGN ANALYST ED Event Note Entered On: 08/15/2021 0:00 EST Performed On: 08/15/2021 0:00 EST by Brittanie Murdock RN ED Event Note ED Event Date/Time : 08/15/2021 0:00 EST ED Description of Event : Patient report given to Rita MCNEIL on 3rd floor. Brittanie Murdock RN - 08/15/2021 0:00 EST Electronically signed by Roman Eckert Conversion Electrical Maintenance Worker Cerlesley at 09/18/2022 8:50 AM CDT documented in this encounter Plan of Treatment Not on file documented as of this encounter Visit Diagnoses Not on filedocumented in this encounter
--- OUTSIDE RECORDS SUMMARY | 2025-01-20 14:30 | XMS_ITS | Encounter Summary ---
Author Organization [employer] ([place], [place], [place], [place]) Address [address] [place] [address] Care Team Providers Care Shrimp Boat Captain Name Role Phone Unavailable Primary Care Provider Unavailabl e Encounter Details Date Type Department Care Team (Late st Contact Info) Description 08/18/2021 Transcribed Document [facility] [place] [facility] [place] [address] ProviderMaría MD [address] [place] [address] Social History Tobacco Use [...]
--- OUTSIDE RECORDS SUMMARY | 2025-01-20 14:30 | XMS_ITS | Encounter Summary ---
Author Organization [employer] ([place], [place], [place], [place]) Address [address] [place] [address] Care Team Providers Care Dining Server Name Role Phone Unavailable Primary Care Provider Unavailabl e Encounter Details Date Type Department Care Team (Late st Contact Info) Description 08/15/2021 Transcribed Document [facility] [facility] [place] [address] ProviderMaría MD [address] [place] [address] Social History Tobacco Use Types [...] CASANDRA METCALFYN, PT - 08/17/2021 15:26 EDT Group Home Goals Mobility/Bed Mobility LTG PT Grid [...] 08/17/2021 15:26 EDT Electronically signed by Tomeka [facility] Conversion Physician Office Specialist Cerner at 09/23/2022 8:15 AM CDT documented in this encounter Plan of Treatment Not on file documented as of this encounter Visit Diagnoses Not on filedocumented in this encounter
--- OUTSIDE RECORDS SUMMARY | 2025-01-20 14:30 | XMS_ITS | Encounter Summary ---
Author Organization [employer] ([place], [place], [place], [place]) Address [address] [place] [address] Care Team Providers Care Slot Service Specialist Name Role Phone Unavailable Primary Care Provider Unavailabl e Encounter Details Date Type Department Care Team (Late st Contact Info) Description 08/17/2021 Transcribed Document [facility] Family Medicine [facility] [place] [address] ProviderMaría MD [address] [place] [address] Social History Tobacco Use Types [...]
--- OUTSIDE RECORDS SUMMARY | 2025-01-20 14:30 | XMS_ITS | Encounter Summary ---
Author Organization [employer] ([place], [place], [place], [place]) Address [address] [place] [address] Care Team Providers Care Housing Inspectors Name Role Phone Unavailable Primary Care Provider Unavailabl e Encounter Details Date Type Department Care Team (Late st Contact Info) Description 08/16/2021 Transcribed Document [facility] [place] [address] [place] [address] ProviderMaría MD [address] [place], [place] [...] Historical ProviderMD - 08/16/2021 3:00 AM CDT [employer] Administrator Details Entered On: 08/16/2021 2:17 EDT Performed [...]
--- OUTSIDE RECORDS SUMMARY | 2025-01-20 14:30 | XMS_ITS | Encounter Summary ---
Author Organization [employer] ([place], [place], [place], [place]) Address [address] [place] [address] Care Team Providers Care Machine Chain Maker Name Role Phone Unavailable Primary Care Provider Unavailabl e Encounter Details Date Type Department Care Team (Late st Contact Info) Description 08/16/2021 Transcribed Document [facility] [place] [facility] [place] [address] ProviderMaría MD [address] [place], [place] [...]
--- OUTSIDE RECORDS SUMMARY | 2025-01-20 14:30 | XMS_ITS | Encounter Summary ---
Author Organization [employer] ([place], [place], [place], [place]) Address [address] [place] [address] Care Team Providers Care Storm Door Maker Name Role Phone Unavailable Primary Care Provider Unavailabl e Encounter Details Date Type Department Care Team (Late st Contact Info) Description 10/01/2021 Transcribed Document [facility] [address] [place] [address] ProviderMaría MD [address] [place] [address] Social History Tobacco Use Types [...]
--- OUTSIDE RECORDS SUMMARY | 2025-01-20 14:30 | XMS_ITS | Encounter Summary ---
Author Organization [employer] ([place], [place], [place], [place]) Address [address] [place] [address] Care Team Providers Care Legislators Name Role Phone Unavailable Primary Care Provider Unavailabl e Encounter Details Date Type Department Care Team (Late st Contact Info) Description 08/16/2021 Transcribed Document [facility] [place] [address] [place] [address] ProviderMaría MD [address], [place] [...] Historical ProviderMD - 08/16/2021 11:20 AM CDT [facility] Endo IntraOp Summary Primary Physician: LEO DOMINGUEZ MD Finalized Date/Time: 08/16/21 11:25:45 Pt. Name: CARIN LUCERO D.O.B./Sex: 1975 Female Med Rec #: [id number] Physician: EDUARD DE LOS SANTOS DO-INT Financial #: [id number] Pt. Type: I Room/Bed: [facility]/ Admit/Disch: 08/14/21 22:53:00 - Institution: [facility] Endo - Case Attendance Entry 1 Entry 2 Entry 3 Case Attendee LEO DOMINGUEZ MD MILLER, MELISSA A, RN PRESCOTT, JACHELE, Raisin Washer Role Performed Surgeon/Proceduralist, Synthetic Department Supervisor, First Scrub, First First Time In 08/16/21 [...] 5 Case Attendee EDILBERTO PATTERSON MD-DARLENE JUAREZ, SEATER ASSEMBLER Role Performed Anesthesiologist of SEATER ASSEMBLER/Nurse Respiratory Coordinator Record Time In 08/16/21 11:14:00 08/16/21 11:14:00 Time Out 08/16/21 11:28:00 08/16/21 11:28:00 Procedure EGD w Peg Tube Removal EGD w Peg Tube Removal / Change / Change Other Attendee Superficial Wound Closed By: Last Modified By: CARIN HILLS, CARIN WALKER RN 08/16/21 11:25:33 08/16/21 11:25:33 [facility] Endo - Case Attendance Audit 08/16/21 11:25:33 Plisse Machine Operator: MONTSE Modifier: REINIERMA 1 <+> Time In [...] Peg Tube Removal / Change 08/16/21 11:16:30 Plisse Machine Operator: MONTSE Modifier: MILLERMA <+> 2 Case Attendee <+> 2 Role Performed <+> 2 Procedure <+> 3 Case Attendee <+> 3 Role Performed <+> 3 Procedure <+> 4 Case Attendee <+> 4 Role Performed <+> 4 Procedure <+> 5 Case Attendee <+> 5 Role Performed <+> 5 Procedure [facility] Endo - Case times Entry 1 Patient In Room Time 08/16/21 11:14:00 Out Room Time 08/16/21 11:28:00 Anesthesia Start Time 08/16/21 11:14:00 Stop Time 08/16/21 11:28:00 Surgery / Procedure Times Start Time 08/16/21 11:20:00 Stop Time 08/16/21 11:25:00 Last Modified By: CARIN HILLS RN 08/16/21 11:25:31 [facility] Endo - Case times Audit 08/16/21 11:25:31 Plisse Machine Operator: MILLERMA Modifier: MILLERMA <+> 1 Out Room Time <+> 1 Stop Time <+> 1 Stop Time 08/16/21 11:22:00 Plisse Machine Operator: REINIERMA Modifier: MILLERMA <+> 1 Start Time [facility] Endo - Delays Entry 1 Delay Reason Other, No Delay Duration 0 Minute(s) Last Modified By: CARIN HILLS RN 08/16/21 11:16:39 [facility] Endo - Departure from OR Entry 1 Integumentary Assessment Integumentary WDL Assessment WDL Transfer/Handoff Transfer to PACU Phase I Handoff Method Bedside/Face to face Post-op Transport Stretcher/Gurney Via Patient Transport CARIN HILLS RN, Accompanied by DARLENE KENNY CRNA Last Modified By: CARIN HILLS RN 08/16/21 11:16:42 [facility] Endo - Endoscopy Details Entry 1 Abdomen Procedure Soft, Non-Tender Assessment Procedure Abdomen 08/16/21 11:16:00 Assessment D/T Radio Frequency Ablation Abdominal Pressure Last Modified By: CARIN HILLS RN 08/16/21 11:16:45 [facility] Endo - Explant Log Entry 1 Explant Log Removal Reason Infection Last Modified By: CARIN HILLS RN 08/16/21 11:18:35 [facility] Endo - Fire Risk Assessment [...] Modified By: CARIN HILLS RN 08/16/21 11:16:48 [facility] Endo - General Case Portable Machine Sander 1 Case Information OR Endo 01 [facility] Case Level 1 Room Verified Yes Wound Class No Incision Specialty Gastroenterology Anesthesia Type General ASA Class 4 Diagnosis Preop Diagnosis infected peg Postop Same As Preop Yes Postop Diagnosis infected peg Wound Class Definitions Last Modified By: CARIN HILLS RN 08/16/21 11:17:34 [facility] Endo - Intraoperative Assessment Entry 1 Valid History / Yes Physical in Chart Preoperative Yes Checklist Reviewed/Evaluated Patient is Latex No Sensitive Level of WDL Consciousness (WDL = Alert, Oriented to Person, Place, and Time) Last Modified By: CARIN HILLS RN 08/16/21 11:17:36 [facility] Endo - Intraoperative Equipment Entry 1 Equipment Intraop Monitoring Electrocardiogram Three lead placement (ECG) Electrode Placement Blood Pressure Arm, left upper Location Pulse Oximeter Hand, right Probe Site Antiembolic Devices Scopes Flexible Endoscopes Gastroscope Used Scope Serial E Number/Identificatio n Number Photo/Video Documentation Photo Yes Video No Last Modified By: CARIN HILLS RN 08/16/21 11:17:43 [facility] Endo - Patient Positioning Entry [...] Modified By: CARIN HILLS RN 08/16/21 11:17:45 [facility] Endo - Sign In Entry 1 Patient, Site, Yes Procedure Identified Surgical Consent Yes Confirmed Surgical Site N/A Marked by person performing procedure Airway Hypothermia Risk No Warming Measures No Taken Last Modified By: CARIN HILLS RN 08/16/21 11:17:51 [facility] Endo - Sign Out Entry [...] Modified By: CARIN HILLS RN 08/16/21 11:25:42 [facility] Endo - Surgical Procedures Entry 1 Procedure EGD w Peg Tube Removal / Change Primary Procedure Yes Primary Surgeon LEO DOMINGUEZ MD Start 08/16/21 11:20:00 Stop 08/16/21 11:25:00 Anesthesia Type General Specialty Gastroenterology Wound Class No Incision Last Modified By: CARIN HILLS RN 08/16/21 11:25:43 [facility] Endo - Surgical Procedures Audit 08/16/21 11:25:43 Plisse Machine Operator: REINIERLAWANDA Modifier: MONTSE <+> 1 Start <+> 1 Stop [facility] Endo - Time Out Entry [...] [facility] Conversion Spiral Weaver Cerner at 09/18/2022 9:26 AM CDT documented in this encounter Plan of Treatment Not on file documented as of this encounter Visit Diagnoses Not on filedocumented in this encounter
--- OUTSIDE RECORDS SUMMARY | 2025-01-20 14:30 | XMS_ITS | Encounter Summary ---
Author Organization [employer] ([place], [place], [place], [place]) Address [address] [place] [address] Care Team Providers Care Barrel Polisher Name Role Phone Unavailable Primary Care Provider Unavailabl e Encounter Details Date Type Department Care Team (Late st Contact Info) Description 09/30/2021 Transcribed Document [facility] [place] Medicine [facility] [place] [address] ProviderMaría MD [address] [place] [address] Social History Tobacco Use Types [...]
--- OUTSIDE RECORDS SUMMARY | 2025-01-20 14:30 | XMS_ITS | Encounter Summary ---
Author Organization [employer] ([place], [place], [place], [place]) Address [address] [place] [address] Care Team Providers Care Education Nurse Name Role Phone Unavailable Primary Care Provider Unavailabl e Encounter Details Date Type Department Care Team (Late st Contact Info) Description 09/30/2021 Transcribed Document [facility] [place] [facility] [place] [address] ProviderMaría MD [address] [place] [address] Social History Tobacco Use Types [...] Communication Barrier : None Primary Language : Kuwaiti Any Spiritual/Cultural Needs or Requests : No [...]
--- OUTSIDE RECORDS SUMMARY | 2025-01-20 14:30 | XMS_ITS | Encounter Summary ---
Author Organization [employer] ([place], [place], [place], [place]) Address [address] [place] [address] Care Team Providers Care Refuge Manager Name Role Phone Unavailable Primary Care Provider Unavailabl e Encounter Details Date Type Department Care Team (Late st Contact Info) Description 08/15/[address] [facility] [place] [facility] [place] [address] ProviderMaría MD [address] [place] [address] Social History Tobacco Use [...] Policy Numbers : Insurance 1 Health Plan: [facility] Policy Number: [id number] Authorization Number: Insurance Primary Name : [facility] Policy Number: [id number] Authorization Status-Primary : Awaiting callback Reference Number-Primary : [id number] Authorized Service Begin Date-Primary : 08/14/2021 EST Authorization Comments-Primary : Clinicals submitted on [facility] website for IP approval Historical Authorization Comments-Primary : No Authorization Comments Found ROBERTO CARLOS CISNEROS RN - 08/15/2021 12:09 EDT Electronically signed by Tomeka [facility] Conversion Equipment Mechanic Specialist Cerner at 09/18/2022 8:57 AM CDT documented in this encounter Plan of Treatment Not on file documented as of this encounter Visit Diagnoses Not on filedocumented in this encounter
--- OUTSIDE RECORDS SUMMARY | 2025-01-20 14:30 | XMS_ITS | Encounter Summary ---
Author Organization [employer] ([place], [place], [place], [place]) Address [address] [place] [address] Care Team Providers Care Floral Specialist Name Role Phone Unavailable Primary Care Provider Unavailabl e Encounter Details Date Type Department Care Team (Late st Contact Info) Description 08/15/2021 Transcribed Document [facility] [place] [facility] [place] [address] ProviderMaría MD [address] [place] [address] Social History Tobacco Use Types [...] 0.9% 250 mL 1,500 mg, IV Piggyback, [id number] Continuous: (1) NaCl 0.9% 1,000 mL 1,000 [...] (AUG 15 01:00) Electronically signed by Tomeka, [facility] Conversion Hand Zipper Trimmer Cerner at 09/18/2022 9:00 AM CDT documented in this encounter Plan of Treatment Not on file documented as of this encounter Visit Diagnoses Not on filedocumented in this encounter
--- OUTSIDE RECORDS SUMMARY | 2025-01-20 14:30 | XMS_ITS | Encounter Summary ---
Author Organization [employer] ([place], [place], [place], [place]) Address [address] [place] [address] Care Team Providers Care Ekg Manager Name Role Phone Unavailable Primary Care Provider Unavailabl e Encounter Details Date Type Department Care Team (Late st Contact Info) Description 08/18/2021 Transcribed Document [facility] [place] [address] [place] [address] ProviderMaría MD [address] [place] [address] Social History Tobacco Use Types [...]
--- OUTSIDE RECORDS SUMMARY | 2025-01-20 14:30 | XMS_ITS | Encounter Summary ---
Author Organization [employer] ([place], [place], [place], [place]) Address [address] [place] [address] Care Team Providers Care Tool And Machine Maintainer Name Role Phone Unavailable Primary Care Provider Unavailabl e Encounter Details Date Type Department Care Team (Late st Contact Info) Description 08/18/2021 Transcribed Document [facility] [place] Medicine [facility] [place] [address] ProviderMaría MD [address] [place] [address] Social History Tobacco Use Types [...] COVID-19 pneumonia, and recent respiratory arrest at [facility] requiring tracheostomy/PEG about a month ago with transfer to [facility]. She was discharged on 08/11. She has been tolerating oral intake and was scheduled to have PEG removed next week. She began having pain around the PEG tube site around 3 days ago with the area becoming more red with burning sensation prompting her to come to [facility] ED on 08/14/21. She denies fever, [...] mL - 600 mg, IV Piggyback, Inj, [id number], infuse over 30 Minute(s), Routine Anticoagulant enoxaparin (Lovenox) - 40 mg, SubCutaneous, Inj, [id number], Routine Cardiovascular carvedilol - 12.5 mg, Oral, [...] No tenderness, No deformity. Integumentary: Warm, Dry, [place], No pallor, No rash, PEG tube site [...] 18) L 2.6 (AUG 14) , ACC: [id number] ORDER: Culture Wound and Stain DATE: 08/15/2021 [...] cells seen No organisms seen. == ACC: [id number] ORDER: Culture Wound and Stain DATE: 08/15/2021 [...] organisms seen. Few White Blood Cells == [facility]: [id number] ORDER: Culture Blood DATE: 08/14/2021 19:11 SOURCE: Blood SITE: Reports Pre 08/17/2021 23:01 No growth at 3 days. Pre 08/16/2021 23:01 No growth at 2 days. Pre 08/15/2021 23:01 No growth at 1 day. Pre 08/15/2021 16:01 Culture less than 24 Hrs old == ACC: [id number] ORDER: Culture Blood DATE: 08/14/2021 19:11 SOURCE: Blood SITE: Reports Pre 08/17/2021 23:01 No growth at 3 days. Pre 08/16/2021 23:01 No growth at 2 days. Pre 08/15/2021 23:01 No growth at 1 day. Pre 08/15/2021 16:01 Culture less than 24 Hrs old == . Chest x-ray results Radiology Results (Last 48 hours) [id number] -- 08/14/2021 22:53 CR Chest 1 Vw [...] Continue wound care. 5. Obtain records from [facility] and [facility] and place on chart. 6. [...]
--- OUTSIDE RECORDS SUMMARY | 2025-01-20 14:30 | XMS_ITS | Encounter Summary ---
Author Organization [employer] ([place], [place], [place], [place]) Address [address] [place] [address] Care Team Providers Care Trench Digger Helper Name Role Phone Unavailable Primary Care Provider Unavailabl e Encounter Details Date Type Department Care Team (Late st Contact Info) Description 08/18/2021 Transcribed Document [facility] [place] [address] [place] [address] ProviderMaría MD [address] [place] [address] Social History Tobacco Use Types [...] EDT Electronically signed by Roman Eckert Conversion Telegraphic Typewriter Mechanic Cerner at 09/18/2022 9:27 AM CDT documented in this encounter Plan of Treatment Not on file documented as of this encounter Visit Diagnoses Not on filedocumented in this encounter
--- OUTSIDE RECORDS SUMMARY | 2025-01-20 14:31 | XMS_ITS | Encounter Summary ---
Author Organization [employer] ([place], [place], [place], [place]) Address [address] [place] [address] Care Team Providers Care Nat Instructor Name Role Phone Unavailable Primary Care Provider Unavailabl e Encounter Details Date Type Department Care Team (Late st Contact Info) Description 08/19/2021 Transcribed Document [facility] [place] Family Medicine [facility] [place] [address] ProviderMaría MD [address] [place] [address] Social History Tobacco Use Types [...] Historical ProviderMD - 08/19/2021 3:18 PM CDT [facility] [place] [id number] ZANDER LUCERO :1975 Visit Time:08/14/2021 Your Visit [...] [facility] Services: [facility] [phone] Medical Equipment for Home Use: Patient Aides (your medical equipment provider)[phone] Transportation: family Discharge Activity: Discharge Activity: Activity as tolerated Diet: Discharge Diet: Heart healthy diet Follow-Up Appointments Follow Up with EMY MUSA (REF)ZACHARY When 08/30/2021 11:30 AM EDT Comments Primary care follow up appointment has been made Bring discharge instructions with you Where: [address] [place] [address] THANH Philippe [address]- [phone] Medications What How Much When Instructions Next Dose carvedilol (carvedilol 12.5 mg oral tablet) 1 Tablet(s) Oral Two Times A Day Duration: 30 Day(s) Pickup at [facility] [place] [address] 9 doxycycline (doxycycline hyclate 100 mg oral tablet) 1 Tablet(s) Oral Two Times A Day Duration: 7 Day(s) Pickup at [place] [address] 9 guaiFENesin (Mucinex 600 mg oral tablet, extended release) 2 Tablet(s) Oral Two Times A Day Duration: 7 Day(s) Pickup at [facility] [place] [address] 9 metroNIDAZOLE (Flagyl 500 mg oral tablet) 1 Tablet(s) Oral Three Times A Day Duration: 6 Day(s) Pickup at [place] [address] 9 furosemide (furosemide 20 mg oral tablet) [...] Oral Two Times A Day Pharmacy Information [facility] [place]: [address] [facility] [address] [place], [place] [id number] [phone] Take your medications faithfully. Do NOT skip [...] including vitamins, herbs, eye drops, creams, and agcx-rvq-argnfva medicines. ??? Any problems you or family [...] tells you to take them. ? Taking wfwf-dnt-tddwbkq medicines, vitamins, herbs, and supplements. ??? Do [...] provider. Document Revised: 10/02/2020 Document Reviewed: 10/02/2020 [employer] Patient Education ?? 2020 [employer]. amoxicillin and clavulanate potassium (am OK i [...] may report side effects to FDA at 3-272-UPW-3044. What other drugs will affect amoxicillin and clavulanate potassium? Tell your doctor about all your other medicines, especially: ?? allopurinol; ?? probenecid; or ?? a blood thinner--warfarin, Coumadin, Jantoven. This list is not complete. Other drugs may affect amoxicillin and clavulanate potassium, including prescription and kprg-hhf-xobnnbx medicines, vitamins, and herbal products. Not all [...] to ensure that the information provided by [employer]. ('Mult[employer]') is accurate, up-to-date, and complete, but no guarantee is made to that effect. Drug information contained herein may be time sensitive. [employer] information has been compiled for use by healthcare practitioners and consumers in the [place] and therefore [employer] does not warrant that uses outside of the [place] are appropriate, unless specifically indicated otherwise. [employer] drug information does not endorse drugs, diagnose patients or recommend therapy. [employer] drug information is an informational resource designed [...] effective or appropriate for any given patient. [employer] does not assume any responsibility for any aspect of healthcare administered with the aid of information [employer] provides. The information contained herein is not intended to cover all possible uses, directions, precautions, warnings, drug interactions, allergic reactions, or adverse effects. If you have questions about the drugs you are taking, check with your doctor, nurse or pharmacist. Copyright 3599-4416 [employer]. Version: 12.. Revision Date: 07/29/2019. carvedilol (AVEL [...] may report side effects to FDA at 9-328-UXF-5415. What other drugs will affect carvedilol? Sometimes it is not safe to use certain medications at the same time. Some drugs can affect your blood levels of other drugs you take, which may increase side effects or make the medications less effective. Other drugs may affect carvedilol, including prescription and keuu-ymv-fsduotc medicines, vitamins, and herbal products. Tell your [...] to ensure that the information provided by [employer]. ('Multum') is accurate, up-to-date, and complete, but no guarantee is made to that effect. Drug information contained herein may be time sensitive. [employer] information has been compiled for use by healthcare practitioners and consumers in the [place] and therefore [employer] does not warrant that uses outside of the [place] are appropriate, unless specifically indicated otherwise. [employer] drug information does not endorse drugs, diagnose patients or recommend therapy. [employer] drug information is an informational resource designed [...] effective or appropriate for any given patient. [employer] does not assume any responsibility for any aspect of healthcare administered with the aid of information I[employer] provides. The information contained herein is not intended to cover all possible uses, directions, precautions, warnings, drug interactions, allergic reactions, or adverse effects. If you have questions about the drugs you are taking, check with your doctor, nurse or pharmacist. Copyright 1321-5962 [employer]. Version: 16.01. Revision Date: 09/27/2018. doxycycline (oral/injection) [...] or life-threatening conditions such as anthrax or [place] spotted fever. The benefit of treating a [...] may report side effects to FDA at 6-331-VZE-1670. What other drugs will affect doxycycline? Sometimes it is not safe to use certain medications at the same time. Some drugs can affect your blood levels of other drugs you take, which may increase side effects or make the medications less effective. Other drugs may affect doxycycline, including prescription and vklp-jmy-iuijkhq medicines, vitamins, and herbal products. Tell your [...] to ensure that the information provided by [employer]. ('Ipracom') is accurate, up-to-date, and complete, but no guarantee is made to that effect. Drug information contained herein may be time sensitive. I[employer] information has been compiled for use by healthcare practitioners and consumers in the [place] and therefore [employer] does not warrant that uses outside of the [place] are appropriate, unless specifically indicated otherwise. [employer] drug information does not endorse drugs, diagnose patients or recommend therapy. [employer] drug information is an informational resource designed [...] effective or appropriate for any given patient. [employer] does not assume any responsibility for any aspect of healthcare administered with the aid of information I[employer] provides. The information contained herein is not intended to cover all possible uses, directions, precautions, warnings, drug interactions, allergic reactions, or adverse effects. If you have questions about the drugs you are taking, check with your doctor, nurse or pharmacist. Copyright 8963-9271 [employer]. Version: 21.04. Revision Date: 04/08/2020. metronidazole (oral/injection) [...] (more likely to occur while taking metronidazole termite exterminator): ?? numbness, tingling, or burning pain [...] may report side effects to FDA at 5-154-QIQ-7495. What other drugs will affect metronidazole? Sometimes [...] may affect metronidazole. This includes prescription and xhqj-aye-qlbbzcn medicines, vitamins, and herbal products. Not all [...] to ensure that the information provided by [employer]. ('Multum') is accurate, up-to-date, and complete, but no guarantee is made to that effect. Drug information contained herein may be time sensitive. I[employer]om information has been compiled for use by healthcare practitioners and consumers in the [place] and therefore [employer] does not warrant that uses outside of the [place] are appropriate, unless specifically indicated otherwise. I[employer]'s drug information does not endorse drugs, diagnose patients or recommend therapy. Pro[employer] drug information is an informational resource designed [...] effective or appropriate for any given patient. [employer] does not assume any responsibility for any aspect of healthcare administered with the aid of information I[employer] provides. The information contained herein is not intended to cover all possible uses, directions, precautions, warnings, drug interactions, allergic reactions, or adverse effects. If you have questions about the drugs you are taking, check with your doctor, nurse or pharmacist. Copyright 8272-5859 [employer]. Version: 15.. Revision Date: 02/11/2021. guaifenesin (gwye [...] may report side effects to FDA at 7-061-JDL-3235. What other drugs will affect guaifenesin ? Avoid using this medicine with other drugs that cause drowsiness or slow your breathing (such as opioid medicine, a muscle relaxer, or medicine for anxiety or seizures). Ask a doctor or pharmacist before using any other medication, including prescription and isve-spf-ifvjtfa medicines, vitamins, and herbal products. Not all [...] to ensure that the information provided by [employer]. ('Multum') is accurate, up-to-date, and complete, but no guarantee is made to that effect. Drug information contained herein may be time sensitive. I[employer]om information has been compiled for use by healthcare practitioners and consumers in the [place] and therefore I[employer]om does not warrant that uses outside of the [place] are appropriate, unless specifically indicated otherwise. Pro[employer] drug information does not endorse drugs, diagnose patients or recommend therapy. Pro[employer] drug information is an informational resource designed [...] effective or appropriate for any given patient. [facility] does not assume any responsibility for any aspect of healthcare administered with the aid of information [facility] provides. The information contained herein is not intended to cover all possible uses, directions, precautions, warnings, drug interactions, allergic reactions, or adverse effects. If you have questions about the drugs you are taking, check with your doctor, nurse or pharmacist. Copyright 1187-3506 [employer]. Version: 7.01. Revision Date: 07/30/2018. Emergency Awareness [...] Assistance with quitting is available by contacting 8-506-EFMC-NOW. This is a free resource providing counseling, [...] and 14.9 ) ANC #: 3 K/uL [place] Percent Man: 5 % -- Normal range between ( 4 and 5 ) Neutrophil Percent Man: 58 % -- Normal range between ( 50 and 65 ) Eos Percent Man: 6 % -- Normal range between ( 0 and 3 ) Anisocytosis: 1+ Platelet Ct Estimate: Adequate Mathias Percent Man: 2 % -- Normal range [...] range between ( 0.0 and 7.0 ) [place] #: 0.60 K/uL -- Normal range between ( 0.16 and 1.00 ) Eos #: 0.20 x10(3)/uL -- Normal range between ( 0.00 and 0.80 ) [place] %: 9.7 % -- Normal range between [...] ) Urine Bilirubin Dipstick: Negative Urine Specific [place]: *1.028 -- Normal range between ( 1.005 [...] was given the opportunity to ask questions. Patient/Oxygen Therapist Name: Patient/Oxygen Therapist Signature: Relationship to Patient: Electronically signed by Tome[place], [facility] Conversion Screen Vent Binder Avery at 09/18/2022 9:25 AM CDT documented in this encounter Plan of Treatment Not on file documented as of this encounter Visit Diagnoses Not on filedocumented in this encounter
--- OUTSIDE RECORDS SUMMARY | 2025-01-20 14:31 | XMS_ITS | Encounter Summary ---
Author Organization [employer] ([place], [place], [place], [place]) Address [address] [place] [address] Care Team Providers Care Farebox Repairer Name Role Phone Unavailable Primary Care Provider Unavailabl e Encounter Details Date Type Department Care Team (Late st Contact Info) Description 08/17/2021 Transcribed Document [facility] [place] Family Medicine [facility] [place] [address] ProviderMaría MD [address] [place] [address] Social History Tobacco Use [...]
--- OUTSIDE RECORDS SUMMARY | 2025-01-20 14:31 | XMS_ITS | Encounter Summary ---
Author Organization [employer] ([place], [place], [place], [place]) Address [address] [place] [address] Care Team Providers Care Tar Processing Technician Name Role Phone Unavailable Primary Care Provider Unavailabl e Encounter Details Date Type Department Care Team (Late st Contact Info) Description 08/19/2021 Transcribed Document [facility] [place] Family [place] [address] ProviderMaría MD [address] [place] [address] Social History Tobacco Use Types [...] 1975 Associated Diagnoses: None Author: Todd Davidson, SKI GUIDE-PHARMACIST Pain Management Pharmacy Consultation HPI: A [id number] [...] respiratory arrest last month and admitted to [facility]. Patient CO2 was reportedly greater than 100. Patient was admitted and eventually had to have a trach and peg placed. Patient was tolerating po intake and was about to have peg tube removed next week. Relevant PMH: peg tube placement, recent respiratory arrest, obstructive sleep apnea, tobacco abuse, morbid obesity. Indication: pain financial management consultant MD: Saleem Jimenes Allergies: metoclopramide [...] for this consult, Hany BaumannD, MPH PGY1 Greenhouse Manager Pager: [phone] documented in this encounter Plan of Treatment Not on file documented as of this encounter Visit Diagnoses Not on filedocumented in this encounter
--- OUTSIDE RECORDS SUMMARY | 2025-01-20 14:31 | XMS_ITS | Encounter Summary ---
Author Organization [employer] ([place], [place], [place], [place]) Address [address] [place] [address] Care Team Providers Care Electronic Gluing Machine Operator Name Role Phone Unavailable Primary Care Provider Unavailabl e Encounter Details Date Type Department Care Team (Late st Contact Info) Description 08/19/[address] [facility] [place] Family Medicine [address] [place] [address] ProviderMaría MD [address] [place] [address] Social History Tobacco Use Types [...] On: 08/19/2021 9:00 EDT by VASYL HIGGINS, EWA-Manager ImplementationElevator Mechanic Apprentice Insurance Authorization Authorization and Policy Numbers : Insurance 1 Health Plan: [facility] Policy Number: [id number] Authorization Number: Insurance Primary Name : [facility] Policy Number: [id number] Authorization Status-Primary : Admit approved Reference Number-Primary : [id number] Authorization Number-Primary : [id number] Number of Days Authorized-Primary : 4 Day(s) Authorized Service Begin Date-Primary : 08/14/2021 EST Authorized Service End Date-Primary : 08/18/2021 EDT Authorization Comments-Primary : c/s review [facility]pt [facility]. Historical Authorization Comments-Primary : Comment 1: inpt admit approved per fax from [facility] 08/16/21 auth# [id number] NRD 08-19-21 (EBEN HURTADO, Dining Room Supervisor 08/16/2021 12:52) Comment 2: Clinicals submitted on [facility] website for IP approval (ROBERTO CARLOS CISNEROS RN 08/15/2021 12:09) VASYL HIGGINS, EWA-Manager Implementation - 08/19/2021 9:00 EDT documented in this encounter Plan of Treatment Not on file documented as of this encounter Visit Diagnoses Not on filedocumented in this encounter
--- OUTSIDE RECORDS SUMMARY | 2025-01-20 14:31 | XMS_ITS | Encounter Summary ---
Author Organization [employer] ([place], [place], [place], [place]) Address [address] [place] [address] Care Team Providers Care Clerical Dentist Assistant Name Role Phone Unavailable Primary Care Provider Unavailabl e Encounter Details Date Type Department Care Team (Late st Contact Info) Description 08/19/2021 Transcribed Document [facility] [place] Family [place] [facility] [place] [address] ProviderMaría MD [address] [place] [address] Social History Tobacco Use Types [...] and about to have PEG tube removed captain's assistant. GI plans for removal today. Pt busy [...]
--- OUTSIDE RECORDS SUMMARY | 2025-01-20 14:31 | XMS_ITS | Encounter Summary ---
Author Organization [employer] ([place], [place], [place], [place]) Address [address] [place] [address] Care Team Providers Care Surgeon'S Assistant Name Role Phone Unavailable Primary Care Provider Unavailabl e Encounter Details Date Type Department Care Team (Late st Contact Info) Description 08/19/[address] [facility] [place] Family [place] [address] ProviderMaría MD [address], [place] [...] On: 08/19/2021 13:01 EDT by Anum Christopher, FINANCE ADVISOR Patient Resource Center Provider Status : EST Other Established Provider Name : Beny Chris Patient Phone Number : [phone] Patient Insurance Type : Medicaid (ex. [employer], [...] at ED : Other Primary Language : Italian Patient Resource Center Comment : Patient needed primary care follow up appointment. Primary care follow up appointment has been made. Follow Up Needed : Anum Moscoso, FINANCE ADVISOR - 08/19/2021 13:01 EDT documented in this encounter Plan of Treatment Not on file documented as of this encounter Visit Diagnoses Not on filedocumented in this encounter
--- OUTSIDE RECORDS SUMMARY | 2025-01-20 14:31 | XMS_ITS | Encounter Summary ---
Author Organization [employer] ([place], [place], [place], [place]) Address [address] [place] [address] Care Team Providers Care Stripper Soft Plastic Name Role Phone Unavailable Primary Care Provider Unavailabl e Encounter Details Date Type Department Care Team (Late st Contact Info) Description 08/14/2021 Transcribed Document [facility] [place] [facility] [place] [address] ProviderMaría [place] [address] Social History Tobacco Use [...] - Historical Provider, - 08/14/2021 11:19 PM CLEARANCE DIVER Evaluation, Occupational Therapy Entered On: 08/15/2021 15:01 [...] abdominal pain Therapy Diagnosis, OT : Decreased Dunbar with ADLs secondary to generalized weakness Onset [...] : Independent, modified Equipment : Long Handled Residence Supervisor, Sock aid, Long handled shoehorn Date [...] date due to pain. Attempted to consult elementary secretary, however pt denied. RN notified of pt [...] JANIS PANDYA OTR/Az - 08/15/2021 14:38 EDT [place] OT Charges OT Eval Moderate Complexity : 1 JANIS PANDYA OTR/Az - 08/15/2021 14:38 EDT documented in this encounter Plan of Treatment Not on file documented as of this encounter Visit Diagnoses Not on filedocumented in this encounter
--- OUTSIDE RECORDS SUMMARY | 2025-01-20 14:31 | XMS_ITS | Encounter Summary ---
Author Organization [employer] ([place], [place], [place], [place]) Address [address] [place] [address] Care Team Providers Care Machine Hand Name Role Phone Unavailable Primary Care Provider Unavailabl e Encounter Details Date Type Department Care Team (Late st Contact Info) Description 08/19/2021 Transcribed Document [facility] [place] [address] [place] [address] ProviderMaría MD [address] [place] [address] Social History Tobacco Use Types [...] Historical ProviderMD - 08/19/2021 3:00 AM CDT Electrical Engineering Professor Details Entered On: 08/19/2021 2:25 EDT Performed [...]
--- OUTSIDE RECORDS SUMMARY | 2025-01-20 14:31 | XMS_ITS | Encounter Summary ---
Author Organization [employer] ([place], [place], [place], [place]) Address [address] [place] [address] Care Team Providers Care Electroencephalograph Technician Name Role Phone Unavailable Primary Care Provider Unavailabl e Encounter Details Date Type Department Care Team (Late st Contact Info) Description 08/17/2021 Transcribed Document [facility] [place] [facility] [address] ProviderMaría MD [address] [place] [address] Social History Tobacco Use Types [...] 1975 Associated Diagnoses: None Author: Todd Davidson, DIE KEEPER-PHARMACIST Pain Management Pharmacy Consultation HPI: A [id number] [...] apnea, tobacco abuse, morbid obesity. Indication: pain change management lead MD: Saleem Jimenes Allergies: metoclopramide Outpatient Pain [...]
--- OUTSIDE RECORDS SUMMARY | 2025-01-20 14:31 | XMS_ITS | Encounter Summary ---
Author Organization [employer] ([place], [place], [place], [place]) Address [address] [place] [address] Care Team Providers Care Rebrander Name Role Phone Unavailable Primary Care Provider Unavailabl e Encounter Details Date Type Department Care Team (Late st Contact Info) Description 08/19/2021 Transcribed Document [facility] [place] [facility] [place] [address] ProviderMaría MD [address] [place] [address] Social History Tobacco Use Types [...] Historical ProviderMD - 08/19/2021 3:34 PM CDT [facility] [place], [place] [id number] ZANDER LUCERO :1975 Visit Time:08/14/2021 Your Visit [...] [facility] Home Health Services: [facility] [phone] Medical Equipment for Home Use: Patient Aides (your medical equipment provider)[phone] Transportation: family Discharge Activity: Discharge Activity: Activity as tolerated Diet: Discharge Diet: Heart healthy diet Follow-Up Appointments Follow Up with EMY MUSA (REF)ZACHARY When 08/30/2021 11:30 AM EDT Comments Primary care follow up appointment has been made Bring discharge instructions with you Where: [address] [place] [address] THANH Philippe [address]- [phone] Medications What How Much When Instructions Next Dose amoxicillin-clavulanate (Augmentin 500 mg-125 mg oral tablet) 1 Tablet(s) Oral Every 12 hours Duration: 7 Day(s) Pickup at [facility] carvedilol (carvedilol 12.5 mg oral tablet) 1 Tablet(s) Oral Two Times A Day Duration: 30 Day(s) Pickup at [facility] doxycycline (doxycycline hyclate 100 mg oral tablet) 1 Tablet(s) Oral Two Times A Day Duration: 7 Day(s) Pickup at [facility] guaiFENesin (Mucinex 600 mg oral tablet, extended release) 2 Tablet(s) Oral Two Times A Day Duration: 7 Day(s) Pickup at [facility] metroNIDAZOLE (Flagyl 500 mg oral tablet) 1 Tablet(s) Oral Three Times A Day Duration: 6 Day(s) Pickup at [facility] furosemide (furosemide 20 mg oral [...] Oral Two Times A Day Pharmacy Information [facility] [place]: [address] [facility] [address] [place], [place] [id number] [phone] Take your medications faithfully. Do NOT skip [...] including vitamins, herbs, eye drops, creams, and symt-lmh-fsnrbag medicines. ??? Any problems you or family [...] tells you to take them. ? Taking ukqb-owy-xgwkpud medicines, vitamins, herbs, and supplements. ??? Do [...] provider. Document Revised: 10/02/2020 Document Reviewed: 10/02/2020 [employer] Patient Education ?? 2020 [place]. amoxicillin and clavulanate potassium (am OK i [...] may report side effects to FDA at 4-362-NVG-9848. What other drugs will affect amoxicillin and clavulanate potassium? Tell your doctor about all your other medicines, especially: ?? allopurinol; ?? probenecid; or ?? a blood thinner--warfarin, Coumadin, Jantoven. This list is not complete. Other drugs may affect amoxicillin and clavulanate potassium, including prescription and sywc-nbv-inzkttz medicines, vitamins, and herbal products. Not all [...] to ensure that the information provided by [employer]. ('[employer]') is accurate, up-to-date, and complete, but no guarantee is made to that effect. Drug information contained herein may be time sensitive. [employer] information has been compiled for use by healthcare practitioners and consumers in the [place] and therefore [employer] does not warrant that uses outside of the [place] are appropriate, unless specifically indicated otherwise. [employer] drug information does not endorse drugs, diagnose patients or recommend therapy. [employer] drug information is an informational resource designed [...] effective or appropriate for any given patient. [employer] does not assume any responsibility for any aspect of healthcare administered with the aid of information [employer] provides. The information contained herein is not intended to cover all possible uses, directions, precautions, warnings, drug interactions, allergic reactions, or adverse effects. If you have questions about the drugs you are taking, check with your doctor, nurse or pharmacist. Copyright 6322-6208 [employer]. Version: 12.. Revision Date: 07/29/2019. carvedilol (AVEL [...] may report side effects to FDA at 1-517-BCU-5664. What other drugs will affect carvedilol? Sometimes it is not safe to use certain medications at the same time. Some drugs can affect your blood levels of other drugs you take, which may increase side effects or make the medications less effective. Other drugs may affect carvedilol, including prescription and jmau-bpf-pvhyntt medicines, vitamins, and herbal products. Tell your [...] to ensure that the information provided by [employer]. ('[employer]') is accurate, up-to-date, and complete, but no guarantee is made to that effect. Drug information contained herein may be time sensitive. [employer] information has been compiled for use by healthcare practitioners and consumers in the [place] and therefore [employer] does not warrant that uses outside of the [place] are appropriate, unless specifically indicated otherwise. [employer] drug information does not endorse drugs, diagnose patients or recommend therapy. [employer] drug information is an informational resource designed [...] effective or appropriate for any given patient. [employer] does not assume any responsibility for any aspect of healthcare administered with the aid of information [employer] provides. The information contained herein is not intended to cover all possible uses, directions, precautions, warnings, drug interactions, allergic reactions, or adverse effects. If you have questions about the drugs you are taking, check with your doctor, nurse or pharmacist. Copyright 5209-7727 [employer]. Version: 16.. Revision Date: 09/27/2018. doxycycline (oral/injection) [...] or life-threatening conditions such as anthrax or Mccaskill spotted fever. The benefit of treating a [...] may report side effects to FDA at 8-891-AHE-2359. What other drugs will affect doxycycline? Sometimes it is not safe to use certain medications at the same time. Some drugs can affect your blood levels of other drugs you take, which may increase side effects or make the medications less effective. Other drugs may affect doxycycline, including prescription and msxd-fjb-ytvwiuy medicines, vitamins, and herbal products. Tell your [...] to ensure that the information provided by [employer]. ('[employer]') is accurate, up-to-date, and complete, but no guarantee is made to that effect. Drug information contained herein may be time sensitive. [employer] information has been compiled for use by healthcare practitioners and consumers in the [place] and therefore [employer] does not warrant that uses outside of the [place] are appropriate, unless specifically indicated otherwise. [employer]'s drug information does not endorse drugs, diagnose patients or recommend therapy. [employer] drug information is an informational resource designed [...] effective or appropriate for any given patient. [employer] does not assume any responsibility for any aspect of healthcare administered with the aid of information [employer] provides. The information contained herein is not intended to cover all possible uses, directions, precautions, warnings, drug interactions, allergic reactions, or adverse effects. If you have questions about the drugs you are taking, check with your doctor, nurse or pharmacist. Copyright 7131-0796 [employer]. Version: 21.04. Revision Date: 04/08/2020. metronidazole (oral/injection) [...] (more likely to occur while taking metronidazole care home): ?? numbness, tingling, or burning pain in [...] may report side effects to FDA at 9-671-KAD-0506. What other drugs will affect metronidazole? Sometimes [...] may affect metronidazole. This includes prescription and pvbe-qig-beslwxs medicines, vitamins, and herbal products. Not all [...] to ensure that the information provided by [employer]. ('[employer]') is accurate, up-to-date, and complete, but no guarantee is made to that effect. Drug information contained herein may be time sensitive. [employer] information has been compiled for use by healthcare practitioners and consumers in the [place] and therefore [employer] does not warrant that uses outside of the [place] are appropriate, unless specifically indicated otherwise. [employer] drug information does not endorse drugs, diagnose patients or recommend therapy. [employer] drug information is an informational resource designed [...] effective or appropriate for any given patient. [employer] does not assume any responsibility for any aspect of healthcare administered with the aid of information [employer] provides. The information contained herein is not intended to cover all possible uses, directions, precautions, warnings, drug interactions, allergic reactions, or adverse effects. If you have questions about the drugs you are taking, check with your doctor, nurse or pharmacist. Copyright 7770-1093 [employer]. Version: 15.. Revision Date: 02/11/2021. guaifenesin (gwye [...] may report side effects to FDA at 2-429-BAM-1078. What other drugs will affect guaifenesin ? Avoid using this medicine with other drugs that cause drowsiness or slow your breathing (such as opioid medicine, a muscle relaxer, or medicine for anxiety or seizures). Ask a doctor or pharmacist before using any other medication, including prescription and zbwa-rhf-wdmgckt medicines, vitamins, and herbal products. Not all [...] to ensure that the information provided by [employer]. ('[employer]') is accurate, up-to-date, and complete, but no guarantee is made to that effect. Drug information contained herein may be time sensitive. [employer] information has been compiled for use by healthcare practitioners and consumers in the [place] and therefore [employer] does not warrant that uses outside of the [place] are appropriate, unless specifically indicated otherwise. [employer]'s drug information does not endorse drugs, diagnose patients or recommend therapy. [employer] drug information is an informational resource designed [...] effective or appropriate for any given patient. [facility] does not assume any responsibility for any aspect of healthcare administered with the aid of information [facility] provides. The information contained herein is not intended to cover all possible uses, directions, precautions, warnings, drug interactions, allergic reactions, or adverse effects. If you have questions about the drugs you are taking, check with your doctor, nurse or pharmacist. Copyright 6329-7059 [employer] [facility] Version: 7.01. Revision Date: [...] Assistance with quitting is available by contacting 6-479-XKVG-NOW. This is a free resource providing counseling, [...] and 14.9 ) ANC #: 3 K/uL [place] Percent Man: 5 % -- Normal range between ( 4 and 5 ) Neutrophil Percent Man: 58 % -- Normal range between ( 50 and 65 ) Eos Percent Man: 6 % -- Normal range between ( 0 and 3 ) Anisocytosis: 1+ Platelet Ct Estimate: Adequate [place] Percent Man: 2 % -- Normal range [...] range between ( 0.0 and 7.0 ) [place] #: 0.60 K/uL -- Normal range between ( 0.16 and 1.00 ) Eos #: 0.20 x10(3)/uL -- Normal range between ( 0.00 and 0.80 ) [place] %: 9.7 % -- Normal range between [...] ) Urine Bilirubin Dipstick: Negative Urine Specific [place]: *1.028 -- Normal range between ( 1.005 [...] was given the opportunity to ask questions. 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
--- OUTSIDE RECORDS SUMMARY | 2025-01-20 14:31 | XMS_ITS | Encounter Summary ---
Author Organization [employer] ([place], [place], [place], [place]) Address [address] [place] [address] Care Team Providers Care Sustainability Analyst Name Role Phone Unavailable Primary Care Provider Unavailabl e Encounter Details Date Type Department Care Team (Late st Contact Info) Description 08/19/2021 Transcribed Document [facility] [place] Medicine [facility] [place] [address] ProviderMaría MD [address] [place] [address] Social History Tobacco Use Types [...] change in location/level of care Rapid Response Sustainability Analyst #1 : Carin Hernandez V, Rn Carin Hernandez V Rn - 08/19/2021 1:01 EDT documented in this encounter Plan of Treatment Not on file documented as of this encounter Visit Diagnoses Not on filedocumented in this encounter
--- OUTSIDE RECORDS SUMMARY | 2025-01-20 14:31 | XMS_ITS | Encounter Summary ---
Author Organization [employer] ([place], [place], [place], [place]) Address [address] [place] [address] Care Team Providers Care Day Care Aide Name Role Phone Unavailable Primary Care Provider Unavailabl e Encounter Details Date Type Department Care Team (Late st Contact Info) Description 08/19/2021 Transcribed Document [facility] [place] [address] [place] [address] ProviderMaría MD [address] [place] [address] Social History Tobacco Use Types [...]
--- OUTSIDE RECORDS SUMMARY | 2025-01-20 14:31 | XMS_ITS | Encounter Summary ---
Author Organization [employer] ([place], [place], [place], [place]) Address [address] [place] [address] Care Team Providers Care Hyperion Essbase Developer Name Role Phone Unavailable Primary Care Provider Unavailabl e Encounter Details Date Type Department Care Team (Late st Contact Info) Description 08/17/2021 Transcribed Document [facility] [place] Family Medicine [facility] [place] [address] ProviderMaría MD [address] [place] [address] Social History Tobacco Use Types [...]
--- OUTSIDE RECORDS SUMMARY | 2025-01-20 14:31 | XMS_ITS | Encounter Summary ---
Author Organization [employer] ([place], [place], [place], [place]) Address [address] [place] [address] Care Team Providers Care Punch Press Feeder Name Role Phone Unavailable Primary Care Provider Unavailabl e Encounter Details Date Type Department Care Team (Late st Contact Info) Description 08/14/[address] [facility] [place] [facility] Medicine [facility] [place] [address] ProviderMaría MD [address] [place] [address] Social History Tobacco Use Types [...] - Historical ProviderMD - 08/14/2021 10:30 PM SCIENTIFIC TECHNICAL WRITER Patient: CARIN LUCERO Age: 46 years Sex: [...] arrest last month and was admitted to [facility]. Patient CO2 was reportedly greater than 100. Patient was admitted and eventually had to have a trach and PEG placed. Patient was transferred from [place] and was admitted at [facility], recently just being discharged 3 days [...] hours oral tablet, extended release: Tab, Oral, [id number], 0 Refill(s) gabapentin 800 mg oral tablet: [...] hours oral tablet, extended release , Oral, R89ONly Zofran ODT 4 mg oral tablet, disintegrating [...] Radiology results Radiology Results (Last 48 hours) [id number] -- 08/14/2021 22:53 CT Abdomen Pelvis W [...]
--- OUTSIDE RECORDS SUMMARY | 2025-01-20 14:31 | XMS_ITS | Encounter Summary ---
Author Organization [employer] ([place], [place], [place], [place]) Address [address] [place] [address] Care Team Providers Care Monitor And Storage Bin Tender Name Role Phone Unavailable Primary Care Provider Unavailabl e Encounter Details Date Type Department Care Team (Late st Contact Info) Description 08/19/2021 Transcribed Document [facility] Radiology [address] [place] [address] Saleem Jimenes MD [address] [place] [address] Social History Tobacco Use Types Packs/Day Years Used Date Smoking Tobacco: Never Assessed Comments Unknown Sex and Gender Information Value Date Recorded Sex Assigned at Female 11/30/2021 3:01 PM CDT Legal Sex Female 3:01 PM CDT Gender Identity Female 11/30/2021 3:01 PM CDT Sexual Orientation Not on file documented as of this encounter Miscellaneous Notes * Cerner Conversion Note - Saleem iJmenes MD - 08/19/2021 9:58 AM EDT Patient: [...] mg, 12 mL, 124 mL/Hr, IV Piggyback, C26LTes Dulcolax Laxative: 5 mg, Oral, Daily, PRN: Constipation DuoNeb 0.5 mg-2.5 mg/3 mL inhalation solution: 3 mL, Nebulized Inhalation, RT_Q6H, PRN: Shortness of Breath Flagyl: 500 mg, Oral, TID Geodon: 40 mg, Oral, BID HYDROmorphone: 2 mg, Oral, Q4H, PRN: Breakthrough Pain Imitrex: 100 mg, Oral, Daily, PRN: Migraine Headache LaMICtal: 100 mg, Oral, Daily Lovenox: 40 mg, SubCutaneous, [id number] MiraLax: 17 Gram, Oral, Daily, PRN: Constipation [...] mL 600 mg 12 mL, IV Piggyback, V90GVms enoxaparin 40 mg/0.4 mL inj 40 mg 0.4 mL, SubCutaneous, N54HYzo famotidine 20 mg tab 20 mg 1 [...] History of obstructive sleep apnea / IMO [id number] / Confirmed Suicide risk / IMO [id number] / Confirmed, Active Problems (2) History of [...] 29.4 \ Radiology Results (Last 48 hours) [id number] -- 08/14/2021 22:53 CR Chest 1 Vw [...] 08/16/21 11:33:00 EDT, Routine, 2.44, m2 SALEEM JIEMNES MD-INT Sodium Chloride 0.9% intravenous solution 1,000 [...]
--- OUTSIDE RECORDS SUMMARY | 2025-01-20 14:31 | XMS_ITS | Encounter Summary ---
Author Organization [employer] ([place], [place], [place], [place]) Address [address] [place] [address] Care Team Providers Care Automotive Painter Helper Name Role Phone Unavailable Primary Care Provider Unavailabl e Encounter Details Date Type Department Care Team (Late st Contact Info) Description 08/17/2021 Transcribed Document [facility] [place] Family Medicine [facility] [place] [address] ProviderMaría MD [address] [place] [address] Social History Tobacco Use Types [...]
--- OUTSIDE RECORDS SUMMARY | 2025-01-20 14:31 | XMS_ITS | Encounter Summary ---
Author Organization [employer] ([place], [place], [place], [place]) Address [address] [place] [address] Care Team Providers Care Mounter Flutes And Piccolos Name Role Phone Unavailable Primary Care Provider Unavailabl e Encounter Details Date Type Department Care Team (Late st Contact Info) Description 08/14/2021 Transcribed Document [facility] [place] Family Medicine [address] [place] [address] ProviderMaría MD [address] [place] [address] Social History Tobacco Use Types [...] - Historical ProviderMD - 08/14/2021 6:43 PM MINE WIRER Broset Violence Assessment Entered On: 08/14/2021 21:48 EST Performed On: 08/14/2021 21:48 EST by LORE LUDWIG RN Broset Violence Assessment Broset Violence Checklist of Symptoms : None Broset Violence Symptoms Subtotal : 0 Broset Violence Symptoms Indicator : Low risk (0) LORE LUDWIG RN - 08/14/2021 21:48 EST Electronically signed by Roman Eckert Conversion Air Defense Artillery Senior Sergeant Cerlesley at 09/18/2022 8:56 AM CDT documented in this encounter Plan of Treatment Not on file documented as of this encounter Visit Diagnoses Not on filedocumented in this encounter
--- OUTSIDE RECORDS SUMMARY | 2025-01-20 14:31 | XMS_ITS | Encounter Summary ---
Author Organization [employer] ([place], [place], [place], [place]) Address [address] [place] [address] Care Team Providers Care Breast Surgeon Name Role Phone Unavailable Primary Care Provider Unavailabl e Encounter Details Date Type Department Care Team (Late st Contact Info) Description 08/14/2021 Transcribed Document [facility] [place] Family Medicine [facility] [address] ProviderMaría MD [address] [place] [address] Social History Tobacco Use Types Packs/Day [...] - Historical Provider, - 08/14/2021 10:53 PM WATER RESOURCE ENGINEER Treatment Intervention, OT Entered On: 08/17/2021 15:15 [...] abdominal pain Therapy Diagnosis, OT : Decreased [place] with ADLs secondary to generalized weakness Admission [...] GIANNA RHODES, OTR/L - 08/17/2021 15:10 EDT Commercial Portfolio Manager Goals, OT Grooming LTG Grid Goal #1 Activity : Grooming Assist : Independent, modified Date to Meet : 08/29/2021 EDT Goal Status : Initial goal Comment : Standing GIANNA RHODES OTR/L - 08/17/2021 15:10 EDT Dressing, Lower Body LTG Grid Goal #1 Activity : Dressing, Lower Body Assist : Independent, modified Equipment : Long Handled Community Service Specialist, Sock aid, Long handled shoehorn Date to [...] the text rendition version of the form. [place] OT Charges OT Ther Activities Ea 15 Min : 1 GIANNA RHODES OTR/Az - 08/17/2021 15:10 EDT documented in this encounter Plan of Treatment Not on file documented as of this encounter Visit Diagnoses Not on filedocumented in this encounter
--- OUTSIDE RECORDS SUMMARY | 2025-01-20 14:31 | XMS_ITS | Encounter Summary ---
Author Organization [employer] ([place], [place], [place], [place]) Address [address] [place] [address] Care Team Providers Care Cathode Maker Name Role Phone Unavailable Primary Care Provider Unavailabl e Encounter Details Date Type Department Care Team (Late st Contact Info) Description 08/14/2021 Transcribed Document [facility] [place] [facility] [place] [address] ProviderMaría MD [address] [place] [address] Social History Tobacco Use Types Packs/Day [...] - Historical Provider, - 08/14/2021 11:19 PM CHANNELER Evaluation, Physical Therapy Entered On: 08/15/2021 10:47 [...] SONY REYNA, PT - 08/15/2021 10:36 EDT Skilled Nursing Goals Mobility/Bed Mobility LTG PT Grid Goal #1 Activity : Sit to stand Assist : Supervision or set-up Date to Meet : 08/29/2021 EDT Goal Status : Intial Goal ERYNASONY LAMB, PT - 08/15/2021 10:36 EDT Ambulation [...] SONY REYNA, PT - 08/15/2021 10:36 EDT [facility] PT Charges PT Eval Moderate Complexity : 1 SONY REYNA, PT - 08/15/2021 10:36 EDT documented in this encounter Plan of Treatment Not on file documented as of this encounter Visit Diagnoses Not on filedocumented in this encounter
--- OUTSIDE RECORDS SUMMARY | 2025-01-20 14:31 | XMS_ITS | Encounter Summary ---
Author Organization [employer] ([place], [place], [place], [place]) Address [address] [place] [address] Care Team Providers Care Meat Counter Clerk Name Role Phone Unavailable Primary Care Provider Unavailabl e Encounter Details Date Type Department Care Team (Late st Contact Info) Description 08/19/2021 Transcribed Document [facility] [place] Family Medicine [facility] [place] [address] ProviderMaría MD [address] [place] [address] Social History Tobacco Use Types [...] COVID-19 pneumonia, and recent respiratory arrest at [facility] requiring tracheostomy/PEG about a month ago with [facility]. She was discharged on 08/11. She has been tolerating oral intake and was scheduled to have PEG removed next week. She began having pain around the PEG tube site around 3 days ago with the area becoming more red with burning sensation prompting her to come to [facility] ED on 08/14/21. She denies fever, [...] mL - 600 mg, IV Piggyback, Inj, [id number], infuse over 30 Minute(s), Routine metroNIDAZOLE (Flagyl) - 500 mg, Oral, Tab, TID, Routine Anticoagulant enoxaparin (Lovenox) - 40 mg, SubCutaneous, Inj, [id number], Routine Cardiovascular carvedilol - 12.5 mg, Oral, [...] No tenderness, No deformity. Integumentary: Warm, Dry, [place], No pallor, No rash, PEG tube site [...] Critical Care - Code Management Assessment: ACC: [id number] ORDER: Culture Wound and Stain DATE: 08/15/2021 [...] cells seen No organisms seen. == ACC: [id number] ORDER: Culture Wound and Stain DATE: 08/15/2021 [...] seen. Few White Blood Cells == ACC: [id number] ORDER: Culture Blood DATE: 08/14/2021 19:11 SOURCE: Blood SITE: Reports Pre 08/18/2021 23:01 No growth at 4 days. Pre 08/17/2021 23:01 No growth at 3 days. Pre 08/16/2021 23:01 No growth at 2 days. Pre 08/15/2021 23:01 No growth at 1 day. Pre 08/15/2021 16:01 Culture less than 24 Hrs old == ACC: [id number] ORDER: Culture Blood DATE: 08/14/2021 19:11 SOURCE: [...]
--- OUTSIDE RECORDS SUMMARY | 2025-01-20 14:31 | XMS_ITS | Encounter Summary ---
Author Organization [employer] ([place], [place], [place], [place]) Address [address] [place] [address] Care Team Providers Care Pie Topper Name Role Phone Unavailable Primary Care Provider Unavailabl e Encounter Details Date Type Department Care Team (Late st Contact Info) Description 08/17/2021 Transcribed Document [facility] [place] Family Medicine [address] [place] [address] ProviderMaría MD [address], [place] [id number] Social History Tobacco Use Types Packs/Day Years [...] Visit Diagnoses Not on filedocumented in this encounter"
--- OUTSIDE RECORDS SUMMARY | 2025-01-20 14:31 | XMS_ITS | Encounter Summary ---
Author Organization [employer] ([place], [place], [place], [place]) Address [address] [place] [address] Care Team Providers Care Storage Facility Rental Clerk Name Role Phone Unavailable Primary Care Provider Unavailabl e Encounter Details Date Type Department Care Team (Late st Contact Info) Description 08/14/2021 Transcribed Document [facility] [place] [facility] [place] [address] ProviderMaría MD [facility] [place] [address] Social History Tobacco Use Types [...] - Historical Provider, - 08/14/2021 11:00 PM FOAM RUBBER MIXER Admission History, Adult Entered On: 08/15/2021 3:13 [...] Meredith Emergency Contact #1 Phone Number : [phone] Emergency Contact #1 Relationship : Mother Emergency [...] Obtained From : Patient Primary Language : Bulgarian Communication Barrier : None Kennel Manager Dog Track Needed : No Venkat Chow Lpn - [...] Scale Risk Level : 25-45 Medium Risk [place] Fall Interventions : Adequate lighting, Bed in [...] Scale Calc Temp : 1 Venkat Chow [facility] - 08/15/2021 1:53 EST Health Histories Smoking [...] Source : Estimated Height Entry Format : [place] Height, Feet : 5 ft(Converted to: 152 cm, 60 Inch) Height, Inches : 1 Inch(Converted to: 0 ft 1 Inch, 2.54 cm) Clinical Height : 154.94 cm Weight Source : Bed scale Weight Entry Format : [place] Clinical Dosing Weight : 138.64 kg Weight, Pounds : 305 lb Body Surface Area (BSA) : 2.26 m2 Body Mass Index : 57.8 kg/m2 (>HHI) [place] Body Weight : 47 kg Venkat Chow [facility] 08/15/2021 1:53 EST Infectious Disease History [...] a COVID-19 Vaccine? : No Venkat Chow [employer] Liaison And Special Staff - 08/15/2021 1:53 EST Infectious Disease Risk [...] at risk Venkat ChowMariano 08/15/2021 1:53 EST [place] Suicide Severity Rating Scale (C-SSRS) CSSRS Past [...] EST Electronically signed by Roman Eckert Conversion Photogrammetric Compilation Specialist Cerner at 09/18/2022 9:00 AM CDT documented in this encounter Plan of Treatment Not on file documented as of this encounter Visit Diagnoses Not on filedocumented in this encounter
--- OUTSIDE RECORDS SUMMARY | 2025-01-20 14:31 | XMS_ITS | Encounter Summary ---
Author Organization [employer] ([place], [place], [place], [place]) Address [address] [place] [address] Care Team Providers Care Fire Observer Name Role Phone Unavailable Primary Care Provider Unavailabl e Encounter Details Date Type Department Care Team (Late st Contact Info) Description 08/14/2021 Transcribed Document [facility] [place] Family Medicine [address] [place] [address] ProviderMaría MD [address] [place] [address] Social History Tobacco Use Types [...] - Historical ProviderMD - 08/14/2021 11:49 PM VICE PRESIDENT OF HUMAN RESOURCES Pain Assessment Entered On: 08/15/2021 22:58 EDT Performed On: 08/15/2021 23:06 EDT by Venkat Chow Lpn Intervention Information: oxyCODONE Performed by Venkat Chow Lpn on 08/15/2021 22:06:00 EDT oxyCODONE,5mg Oral,Pain (Moderate 4-6) Pain Assessment Pain Assessment : Follow-up assessment Pain Scale Goal : 4 Venkat Chow Lpn - 08/15/2021 22:58 EDT Electronically signed by Tomeka [facility] Conversion Blocking Machine Operator Second Cerner at 09/18/2022 8:56 AM CDT documented in this encounter Plan of Treatment Not on file documented as of this encounter Visit Diagnoses Not on filedocumented in this encounter
--- OUTSIDE RECORDS SUMMARY | 2025-01-20 14:31 | XMS_ITS | Encounter Summary ---
Author Organization [employer] ([place], [place], [place], [place]) Address [address] [place] [address] Care Team Providers Care Cattle Driver Name Role Phone Unavailable Primary Care Provider Unavailabl e Encounter Details Date Type Department Care Team (Late st Contact Info) Description 08/19/2021 Transcribed Document [facility] [place] Family Medicine [address] [place] [address] ProviderMaría MD [address] [place] [address] Social History Tobacco Use Types [...]
--- OUTSIDE RECORDS SUMMARY | 2025-01-20 14:31 | XMS_ITS | Clinical Summary ---
Author Organization [facility] Address [address] [place] [id number] Phone Care Team Providers Care Etl Analyst Developer Name Role Phone Unavailable Primary Care [...]
--- OUTSIDE RECORDS SUMMARY | 2025-01-20 14:31 | XMS_ITS | Encounter Summary ---
Author Organization [employer] ([place], [place], [place], [place]) Address [address] [place] [address] Care Team Providers Care Rope Walker Name Role Phone Unavailable Primary Care Provider Unavailabl e Encounter Details Date Type Department Care Team (Late st Contact Info) Description 08/19/2021 Transcribed Document [facility] [place] [address] [place] [address] ProviderMaría MD [address] [place] [address] Social History Tobacco Use Types [...]
--- OUTSIDE RECORDS SUMMARY | 2025-01-20 14:31 | XMS_ITS | Encounter Summary ---
Author Organization [employer] ([place], [place], [place], [place]) Address [address] [place] [address] Care Team Providers Care Chemical Etching Processor Name Role Phone Unavailable Primary Care Provider Unavailabl e Encounter Details Date Type Department Care Team (Late st Contact Info) Description 08/19/2021 Transcribed Document [facility] [place] Family Medicine [facility] [place] [address] ProviderMaría MD [address] [place] [address] Social History Tobacco Use Types [...] HEMA METCALF, PT - 08/19/2021 14:14 EDT Correction Goals Mobility/Bed Mobility LTG PT Grid Goal [...]
--- OUTSIDE RECORDS SUMMARY | 2025-01-20 14:31 | XMS_ITS | Encounter Summary ---
Author Organization [employer] ([place], [place], [place], [place]) Address [address] [place] [address] Care Team Providers Care Sheet Metal Engineer Name Role Phone Unavailable Primary Care Provider Unavailabl e Encounter Details Date Type Department Care Team (Late st Contact Info) Description 08/19/[address] [facility] [place] [facility] [place] [address] ProviderMaría MD [address] [place], [place] [...] On: 08/19/2021 11:33 EDT by Zara Donald, Pressroom Worker Primary Insurance Authorization Authorization and Policy Numbers : Insurance 1 Health Plan: [facility] Policy Number: [id number] Authorization Number: Insurance Primary Name : [facility] Policy Number: [id number] Authorization Status-Primary : Apprv contin stay Reference Number-Primary : [id number] Authorization Number-Primary : [id number] Number of Days Authorized-Primary : 9 Day(s) Authorized Service Begin Date-Primary : 08/14/2021 EST Authorized Service End Date-Primary : 08/23/2021 EDT Authorization Comments-Primary : Authorized per fax 08/19/21 @ 0837. This request for inpatient services has been approved x10 days. Next review due 08/24/21. -Efrem Gillette RN. Historical Authorization Comments-Primary : Comment 1: c/s review for inpt faxed wo to [facility] via cerner. (VASYL HIGGINS, RN-Primary Care Pediatrician 08/19/2021 09:00) Comment 2: inpt admit approved per fax from [facility] 08/16/21 auth# [id number] NRD 08-19-21 (EBEN HURTADO, Poultry Husbandry Teacher 08/16/2021 12:52) Comment 3: Clinicals submitted on [facility] website for IP approval (ROBERTO CARLOS CISNEROS RN 08/15/2021 12:09) Zara Donald, Pressroom Worker - 08/19/2021 11:33 EDT documented in this encounter Plan of Treatment Not on file documented as of this encounter Visit Diagnoses Not on filedocumented in this encounter
--- OUTSIDE RECORDS SUMMARY | 2025-01-20 14:31 | XMS_ITS | Encounter Summary ---
Author Organization [employer] ([place], [place], [place], [place]) Address [address] [place] [address] Care Team Providers Care Spray Blender Name Role Phone Unavailable Primary Care Provider Unavailabl e Encounter Details Date Type Department Care Team (Late st Contact Info) Description 08/14/2021 Transcribed Document [facility] [place] Family Medicine [facility] [place] [address] ProviderMaría MD [address] [place] [address] Social History Tobacco Use Types [...] - Historical ProviderMD - 08/14/2021 7:11 PM OFFICE COMMUNICATION PROFESSOR Patient: CARIN LUCERO Age: 46 years Sex: [...] last month ago and was admitted to [facility]. Says she has sleep apnea and her CO2 was greater than 100. She was admitted and have a trach and PEG placed. She says she was transferred to [facility] in [facility] and was just discharged 3 [...] hours oral tablet, extended release: Tab, Oral, [id number], 0 Refill(s) gabapentin 800 mg oral tablet: [...] EST Height Source Stated Height Entry Format [place] Height/Length, BHUTANESE (ft) 5 ft Height/Length BHUTANESE 1 Inch CLINICALHEIGHT 154.94 cm [place] Body Weight 47.45 kg Weight Source, ED Critical estimated dosing weight Weight Entry Format [place] Weight Pakistani lb 305 lb CLINICALWEIGHT 138.64 kg Body [...] nurses' notes, emergency department records, prior records. athletic monitor: Time 08/14/2021 19:16:00, Rate 112, Sinus [...] 12.9 % LOW Lymph # 1.24 x10(3)/uL [place] % 9.3 % HI [place] # 0.89 K/uL Eos % 1.4 % Eos # 0.13 x10(3)/uL Baso % 0.3 % Baso # 0.03 x10(3)/uL Slide Review No IG# 0.12 x10(3)/uL HI IG% 1.30 % HI PT 9.7 Second(s) INR 0.9 PTT 27.5 Second(s) Procalcitonin <0.25 ng/mL Influenza A Negative Influenza B Negative SARS-CoV-2 (COVID19 PCR) Negative . Radiology results: Radiology Results (Last 48 hours) [id number] -- 08/14/2021 22:53 CT Abdomen Pelvis W [...] [place] SANTOS, DO-INT. Electronically signed by Tomeka [facility] Conversion Sugarcane Research Technician Cerner at 09/18/2022 9:34 AM CDT documented in this encounter Plan of Treatment Not on file documented as of this encounter Visit Diagnoses Not on filedocumented in this encounter
--- OUTSIDE RECORDS SUMMARY | 2025-01-20 14:31 | XMS_ITS | Encounter Summary ---
Author Organization [employer] ([place], [place], [place], [place]) Address [address] [place] [address] Care Team Providers Care Aircraft Structural Repairer Name Role Phone Unavailable Primary Care Provider Unavailabl e Encounter Details Date Type Department Care Team (Late st Contact Info) Description 08/19/2021 Transcribed Document [facility] Radiology [address] [place] [address] Saleem Jimenes MD [address] [place] [address] Social History Tobacco Use Types Packs/Day [...] 08/19/2021 16:06 Primary Care Provider EMY MUSA (REF)MD-[facility] Discharge Diagnosis: Anterior abdominal wall cellulitis [...] arrest last month and was admitted to [facility]. Patient CO2 was reportedly greater than 100. Patient was admitted and eventually had to have a trach and PEG placed. Patient was transferred from [place] and was admitted at [facility], recently just being discharged 3 days ago. [...] Home Discharge Follow Up EMY MUSA (REF), -[facility] - 11:30 AM Discharge Medications (18) [...]
--- OUTSIDE RECORDS SUMMARY | 2025-01-20 14:31 | XMS_ITS | Encounter Summary ---
Author Organization [employer] ([place], [place], [place], [place]) Address [address] [place] [address] Care Team Providers Care National Investigative Producer Name Role Phone Unavailable Primary Care Provider Unavailabl e Encounter Details Date Type Department Care Team (Late st Contact Info) Description 08/19/2021 Transcribed Document [facility] [place] Family Medicine [facility] [place] [address] ProviderMaría MD [address] [place] [address] Social History Tobacco Use Types Packs/Day [...]
--- OUTSIDE RECORDS SUMMARY | 2025-01-20 14:31 | XMS_ITS | Encounter Summary ---
Author Organization [employer] ([place], [place], [place], [place]) Address [address] [place] [address] Care Team Providers Care Kiln Tender Name Role Phone Unavailable Primary Care Provider Unavailabl e Encounter Details Date Type Department Care Team (Late st Contact Info) Description 08/17/2021 Transcribed Document [facility] [place] Family Medicine [address] [place] [address] ProviderMaría MD [address] [place] [address] Social History Tobacco Use Types [...] Rn Intervention Information: oxyCODONE Performed by Guillermo Patyon Rn on 08/17/2021 09:58:00 EDT oxyCODONE,5mg Oral Pain Assessment Pain Assessment : Follow-up assessment Pain Scale Goal : 4 Guillermo Payton Rn - 08/17/2021 10:32 EDT documented in this encounter Plan of Treatment Not on file documented as of this encounter Visit Diagnoses Not on filedocumented in this encounter
--- OUTSIDE RECORDS SUMMARY | 2025-01-20 14:31 | XMS_ITS | Encounter Summary ---
Author Organization [employer] ([place], [place], [place], [place]) Address [address] [place] [address] Care Team Providers Care Coil Wrapper Name Role Phone Unavailable Primary Care Provider Unavailabl e Encounter Details Date Type Department Care Team (Late st Contact Info) Description 08/17/2021 Transcribed Document [facility] [place] [address] ProviderMaría MD [address] [place] [address] Social History Tobacco Use Types [...] change in location/level of care Rapid Response Coil Wrapper #1 : Carin Hernandez V, Rn Carin Hernandez V, Rn - 08/17/2021 5:25 EDT documented in this encounter Plan of Treatment Not on file documented as of this encounter Visit Diagnoses Not on filedocumented in this encounter
--- OUTSIDE RECORDS SUMMARY | 2025-01-20 14:31 | XMS_ITS | Encounter Summary ---
Author Organization [employer] ([place], [place], [place], [place]) Address [address] [place] [address] Care Team Providers Care Heavy Coil Winder Name Role Phone Unavailable Primary Care Provider Unavailabl e Encounter Details Date Type Department Care Team (Late st Contact Info) Description 08/17/2021 Transcribed Document [facility] [place] Family Medicine [facility] [place] [address] ProviderMaría MD [address] [place] [address] Social History Tobacco Use Types [...]
--- OUTSIDE RECORDS SUMMARY | 2025-01-20 14:31 | XMS_ITS | Encounter Summary ---
Author Organization [employer] ([place], [place], [place], [place]) Address [address] [place] [address] Care Team Providers Care Patient Registration Representative Name Role Phone Unavailable Primary Care Provider Unavailabl e Encounter Details Date Type Department Care Team (Late st Contact Info) Description 08/19/[address] [facility] [place] Family Medicine [facility] [place] [address] ProviderMaría MD [address] [place] [address] Social History Tobacco Use Types [...] including vitamins, herbs, eye drops, creams, and amug-kbe-rpybxfr medicines. ??? Any problems you or family [...] tells you to take them. ? Taking zoju-agd-tfjdnjh medicines, vitamins, herbs, and supplements. ??? Do [...] provider. Document Revised: 10/02/2020 Document Reviewed: 10/02/2020 [employer] Patient Education ? 2020 [employer] documented in this encounter Plan of Treatment Not on file documented as of this encounter Visit Diagnoses Not on filedocumented in this encounter
--- OUTSIDE RECORDS SUMMARY | 2025-01-20 14:31 | XMS_ITS | Encounter Summary ---
Author Organization [employer] ([place], [place], [place], [place]) Address [address] [place] [address] Care Team Providers Care Store Team Leader Name Role Phone Unavailable Primary Care Provider Unavailabl e Encounter Details Date Type Department Care Team (Late st Contact Info) Description 08/17/2021 Transcribed Document [facility] [place] [facility] [place] [address] ProviderMaría MD [address] [place] [address] Social History Tobacco Use Types [...] On: 08/17/2021 15:03 EDT by ERVIN HERNANDEZ, Dietitian Care Management Progress Note Discharge Arrangements : [...] Attend Multidisciplinary Rounds? : Yes ERVIN HERNANDEZ, Dietitian - 08/17/2021 15:03 EDT Narrative Progress Note [...] DCP: home with family support. JEANNETTE MANCERA Dietitian - 08/16/21 17:36:38 ERVIN HERNANDEZ Dietitian - 08/17/2021 15:03 EDT documented in this encounter Plan of Treatment Not on file documented as of this encounter Visit Diagnoses Not on filedocumented in this encounter
--- OUTSIDE RECORDS SUMMARY | 2025-01-20 14:31 | XMS_ITS | Encounter Summary ---
Author Organization [employer] ([place], [place], [place], [place]) Address [address] [place] [address] Care Team Providers Care Gluing Machine Adjuster Name Role Phone Unavailable Primary Care Provider Unavailabl e Encounter Details Date Type Department Care Team (Late st Contact Info) Description 08/14/2021 Transcribed Document [facility] [place] [facility] [place] [address] ProviderMaría MD [address] [place] [address] Social History Tobacco Use Types [...] - Historical ProviderMD - 08/14/2021 6:43 PM REFUELER ED Triage Entered On: 08/14/2021 19:02 EST [...] : 2 - Emergent Tracking Group : [facility] ED CORTEZ CERVANTES RN - [...] PNED ; Probability: 0 ; Diagnosis Code: [id number] ED Height and Weight Height Source : Stated Height Entry Format : [place] Height, Feet : 5 ft(Converted to: 152 cm, 60 Inch) Height, Inches : 1 Inch(Converted to: 0 ft 1 Inch, 2.54 cm) Clinical Height : 154.94 cm Weight Source, ED : Critical estimated dosing weight Weight Entry Format : [place] Weight, Pounds : 305 lb Clinical Dosing Weight : 138.64 kg Body Surface Area (BSA) : 2.26 m2 Body Mass Index : 57.8 kg/m2 (>HHI) Organ Body Weight (IBW) : 47.45 kg CORTEZ [...]
--- OUTSIDE RECORDS SUMMARY | 2025-01-20 14:31 | XMS_ITS | Encounter Summary ---
Author Organization [employer] ([place], [place], [place], [place]) Address [address] [place] [address] Care Team Providers Care Tree Loader Meat Name Role Phone Unavailable Primary Care Provider Unavailabl e Encounter Details Date Type Department Care Team (Late st Contact Info) Description 08/19/2021 Transcribed Document [facility] [place] [facility] [place] [address] ProviderMaría MD [address] [place] [address] Social History Tobacco Use Types [...] On: 08/19/2021 14:01 EDT by JEANNETTE MANCERA Store Clerk Final Discharge Planning Discharge Arrangements : Patient [...] Services (Related/SOC within 3 days)-06 JEANNETTE MANCERA Store Clerk - 08/19/2021 14:01 EDT Final Narrative Note [...] and in agreement with plan. JEANNETTE MANCERA Store Clerk - 08/19/2021 14:01 EDT Electronically signed by Tomeka [facility] Conversion Vacuum Truck Driver Cerner at 09/18/2022 9:26 AM CDT documented in this encounter Plan of Treatment Not on file documented as of this encounter Visit Diagnoses Not on filedocumented in this encounter
--- OUTSIDE RECORDS SUMMARY | 2025-01-20 14:31 | XMS_ITS | Encounter Summary ---
Author Organization [employer] ([place], [place], [place], [place]) Address [address] [place] [address] Care Team Providers Care Glazing Machine Operator Name Role Phone Unavailable Primary Care Provider Unavailabl e Encounter Details Date Type Department Care Team (Late st Contact Info) Description 08/14/2021 Transcribed Document [facility] [place] [facility] [place] [address] ProviderMaría MD [facility] [place] [address] Social History Tobacco Use [...] - Historical ProviderMD - 08/14/2021 8:44 PM TIMBER POISONER Pain Assessment Entered On: 08/14/2021 21:38 EST Performed On: 08/14/2021 21:38 EST by LORE LUDWIG RN Intervention Information: morphine Performed by LORE LUDWIG RN on 08/14/2021 20:48:00 EST morphine,4mg IV Push,Peripheral Line 1 Pain Assessment Pain Assessment : Follow-up assessment Pain Scale Used : 0-10 Scale OLRE LUDWIG RN - 08/14/2021 21:38 EST Pain [...]
--- OUTSIDE RECORDS SUMMARY | 2025-01-20 14:31 | XMS_ITS | Encounter Summary ---
Author Organization [employer] ([place], [place], [place], [place]) Address [address] [place] [address] Care Team Providers Care Reshipping Clerk Name Role Phone Unavailable Primary Care Provider Unavailabl e Encounter Details Date Type Department Care Team (Late st Contact Info) Description 08/17/2021 Transcribed Document [id number] Radiology [address] [place] [address] Saleem Jimenes MD [address] [place] [id number] Social History Tobacco Use Types Packs/Day [...] mg, 12 mL, 124 mL/Hr, IV Piggyback, [id number] Dulcolax Laxative: 5 mg, Oral, Daily, PRN: Constipation DuoNeb 0.5 mg-2.5 mg/3 mL inhalation solution: 3 mL, Nebulized Inhalation, RT_Q6H, PRN: Shortness of Breath Geodon: 40 mg, Oral, BID HYDROmorphone: 2 mg, Oral, Q4H, PRN: Pain Imitrex: 100 mg, Oral, Daily, PRN: Migraine Headache LaMICtal: 100 mg, Oral, Daily Lactated Ringers Injection intravenous solution 1,000 mL: 20 mL/Hr, IntraVENous Lovenox: 40 mg, SubCutaneous, [id number] MiraLax: 17 Gram, Oral, Daily, PRN: Constipation [...] mL 600 mg 12 mL, IV Piggyback, [id number] enoxaparin 40 mg/0.4 mL inj 40 mg 0.4 mL, SubCutaneous, [id number] famotidine 20 mg tab 20 mg 1 [...] History of obstructive sleep apnea / IMO [id number] / Confirmed Suicide risk / IMO 44083 / Confirmed, Active Problems (2) History of [...] 50 mL 600 mg, IV Piggyback, Inj, [id number], infuse over 30 Minute(s), Routine, Start 08/17/21 [...] 250 mL 1,500 mg, IV Piggyback, Inj, [id number], infuse over 60 Minute(s), Start 08/15/21 11:00:00 [...]
--- OUTSIDE RECORDS SUMMARY | 2025-01-20 14:31 | XMS_ITS | Clinical Summary ---
Author Organization [facility] Address [address] [place] [address] Care Team Providers Care Fine Jewelry Sales Associate Name Role Phone Mario Sher MD Primary Care Provider +1- [phone] Allergies Active Allergy Reactions Criticality Noted Date [...] or Tdap) 08/18/[address] [place] [id number] [place] Care Teams Fine Jewelry Sales Associate Relationship Specialty Start Date End Date Mario Sher MD [facility] [address] [facility] [place] [address] PCP - General Family Medicine 09/16/24
--- OUTSIDE RECORDS SUMMARY | 2025-01-20 14:31 | XMS_ITS | Encounter Summary ---
Author Organization [employer] ([place], [place], [place], [place]) Address [address] [place] [address] Care Team Providers Care Rn Relief Charge Name Role Phone Unavailable Primary Care Provider Unavailabl e Encounter Details Date Type Department Care Team (Late st Contact Info) Description 08/14/2021 Transcribed Document [facility] [place] [facility] [place] [address] ProviderMaría MD [address] [place] [address] Social History Tobacco Use Types [...] - Historical ProviderMD - 08/14/2021 6:43 PM POLYMER MATERIALS CONSULTANT ED Assessment Entered On: 08/14/2021 21:48 EST [...] Communication Barrier : None Primary Language : Egyptian Any Spiritual/Cultural Needs or Requests : No [...] 08/14/2021 21:41 EST Electronically signed by Tomeka [facility] Conversion Automation Mechanic Cerner at 09/18/2022 8:52 AM CDT documented in this encounter Plan of Treatment Not on file documented as of this encounter Visit Diagnoses Not on filedocumented in this encounter
[2025-01-20 14:38] LABS: ABG HCO3 27.4 mmhg (22.0-26.0); ABG PH 7.35 mmol/L (7.35-7.45); ABG PO2 90.0 mmhg (80-100); ABG TCO2 28.9 mmhg (23-27)
[2025-01-20 14:41] LABS: ABG PCO2 50.7 mmhg (35.0-45.0); Source Left Radial
== END 2025-01-20 23:59 | disposition home or self-care (01) ==
LOC: LAB 14:26
PROVIDERS: PCP Family Medicine; Visit Provider Internal Medicine Pulmonary Disease
DX: R06.00 Dyspnea, unspecified (principal)
CPT/HCPCS: 82803

== ENCOUNTER 2025-02-04 15:36 | Outpatient (CLI) | payer MEDICAID, SELFPAY ==
--- OUTSIDE RECORDS SUMMARY | 2025-02-04 15:38 | XMS_ITS | Clinical Summary ---
Author Organization [facility] Address [address] [place] [address] Care Team Providers Care [place] Boatman Name Role Phone Provider, Unknown Primary Care [...] PCV) 01/12/2024 Zoster-RZV(Shingrix) (1 of 2) 01/12/2024 Depression Screening 06/05/2024 COVID-19 Vaccine ( season) 02/03/202501/2021, 09/04/2020 Influenza Vaccination (#1) 02/03/202506/15, 01/18/2018, 02/01/2017 Tetanus Vaccination (Every 10 Years) 08/18/203208/03 Insurance MEDICAID [place] Care Teams [place] Boatman Relationship Specialty Start Date End Date Provider, Unknown PCP - General 09/12/24
--- OUTSIDE RECORDS SUMMARY | 2025-02-04 15:38 | XMS_ITS | Referral Summary ---
Author Organization [employer] ([place], [place], [place], [place]) Address [address] [place] [address] Care Team Providers Care Car Washer Name Role Phone Unavailable Primary Care [...]
--- OUTSIDE RECORDS SUMMARY | 2025-02-04 15:38 | XMS_ITS | Clinical Summary ---
Author Organization [employer] ([place], [place], [place], [place]) Address [address] [place] [address] Care Team Providers Care Personal Lines Sales Executive Name Role Phone Unavailable Primary Care [...]
--- OUTSIDE RECORDS SUMMARY | 2025-02-04 15:38 | XMS_ITS | Clinical Summary ---
Author Organization [facility] Address [address] [place] [address] Phone Care Team Providers Care Catering Convention Services Manager Name Role Phone Unavailable Primary [...]
--- OUTSIDE RECORDS SUMMARY | 2025-02-04 15:38 | XMS_ITS | Clinical Summary ---
Author Organization [facility] Address [address] [place] [address] Phone Care Team Providers Care Delivery Sales Worker Name Role Phone Unavailable Primary Care [...] COVID-19 Vaccine ( - 2023-2 5 season) 2025 Influenza Vaccine (#1) 2025 Meningococcal B Vaccine Aged Out No l onger eligible based on patient's age to complete this topic Insurance [employer] [place] [id number] MDR [employer] [place] [id number] MDR [employer] [place] [id number] MDR [address] [facility]
--- OUTSIDE RECORDS SUMMARY | 2025-02-04 15:38 | XMS_ITS | Clinical Summary ---
Author Organization [facility] Address [address] [place] [address] Care Team Providers Care Manufacturing Engineering Technologist Name Role Phone Mario Sher MD Primary Care Provider +1- [phone] Allergies Active Allergy Reactions Criticality Noted Date [...] or Tdap) 08/18/[address] [place] [place] [id number] MEDICAID [place] Care Teams Manufacturing Engineering Technologist Relationship Specialty Start Date End Date Mario Sher MD [facility] [address] [facility] [place] [address] PCP - General Family Medicine 09/16/24
--- OUTSIDE RECORDS SUMMARY | 2025-02-04 15:38 | XMS_ITS | Clinical Summary ---
Author Organization [facility] Address [address] [facility] [address] [place] [address] Phone Care Team Providers Care Clinical Application Consultant Name Role Phone Unavailable Unavailable Conditions or Problems No information available. Medications No information available. Medications Administered No information available. Allergies, Adverse Reactions, Alerts No information available. Results No information available. Plan of Care No information available. Procedures No information available. Vital Signs No information available. Immunizations No information available. Advance Directives No information available.
[2025-02-04 16:53] LABS: Chloride 95 mmol/L (98-107); Potassium 4.6 mmoL/L (3.5-5.1)
[2025-02-04 16:56] LABS: Blood Urea Nitrogen 33 mg/dl (7-17); Creatinine,Serum 1.30 mg/dl (0.52-1.04); Estimated Glomerular Filt Rate 43 ml/min (>60); GFR (African American) 52 ML/MIN (>60)
[2025-02-04 16:57] LABS: Calcium 9.0 mg/dl (8.4-10.2); Carbon Dioxide 35 mmol/L (22.0-30.0); Glucose 117 mg/dl (74-100)
[2025-02-04 18:25] LABS: Anion Gap 12.6 mEq/L (5-15); Sodium 138 mmol/L (136-145)
== END 2025-02-04 23:59 | disposition home or self-care (01) ==
LOC: LAB 15:37
PROVIDERS: PCP Family Medicine; Visit Provider Nurse Practitioner Family
DX: I10 Essential (primary) hypertension (principal)
CPT/HCPCS: 36415; 80048

== ENCOUNTER 2025-02-11 08:02 | Day surgery (SDC) | payer MEDICAID, SELFPAY ==
[2025-02-11] VITALS (13 sets, daily range): BP systolic 126–176; BP diastolic 78–99; PULSE 91–99; RESP 18–20; O2SAT 90–100
--- NOTE | 2025-02-11 07:23 | IR_ITS ---
APPROVED REPORT Patient Location: Outpatient [facility] Custodian: Beny Márquez, RT (R) PROCEDURES Right heart catheterization Left heart catheterization Left ventriculogram Selective coronary angiogram INDICATION Abnormal Myoview, Angina pectoris, Pulmonary hypertension Informed consent was obtained prior to the procedure. COMPLICATIONS NONE Estimated Blood Loss: LESS THAN 10 ML TECHNIQUE One percent lidocaine was used to anesthetize the right anterior aspect of the right wrist. The right radial artery was accessed via the Seldinger technique and a 6 [place]ese hydrophilic sheath was placed in the right radial artery. Following this one percent lidocaine was used to anesthetize the right anterior aspect of the right neck. The right internal jugular vein was accessed via the Seldinger technique and a 7 [place]ese sheath was placed in the right internal jugular vein. Following this an arterial cocktail was administered using 5000U heparin, 2.5 mg verapamil, 1mg Lidocaine and 800mcg nitroglycerin into the right radial sheath. A JL3 catheter was used to perform left heart catheterization left ventriculogram and selective coronary angiography while a [place]-Lauren catheter was used to perform right heart catheterization. Saturations were obtained in the pulmonary artery and right atrium. At the end of the procedure the arterial sheath was removed good hemostasis was achieved using Traclet band. Patient was transferred to the postop holding area in stable condition for venous sheath removal. ANGIOGRAPHIC RESULTS The left main artery Normal The left anterior descending artery Normal The circumflex artery Normal The right coronary artery Normal The MOLINA ventriculogram reveals Normal 65% The left ventricular end-diastolic pressure 25 to 30 mmHg Right atrial pressure 10 mmHg Pulmonary artery pressure 60/35 mmHg Pulmonary artery occlusion pressure 22 mmHg Right atrial saturation 63% Pulmonary artery saturation 61% Aortic saturation 90% Hemoglobin 12.9 Cardiac output 6.3 L/min IMPRESSION Normal coronary arteries Normal ejection fraction Elevated LVEDP Moderate to severe pulmonary hypertension most consistent with diastolic dysfunction likely obesity related PLAN 1. Medical management for obesity and diastolic dysfunction Electronically signed by : Tom [place] MD 02/11/2025 11:45:13
[2025-02-11 08:32] LABS: Hematocrit 42.3 % (37.0-47.0); Hemoglobin 12.9 g/dL (12.2-16.2); Immature Granulocytes % 0.9 %; Mean Corpuscular HGB Conc 30.5 g/dL (31.8-35.4); Mean Corpuscular Hemoglobin 27.6 pg (27.0-31.2); Mean Corpuscular Volume 90.4 fl (81-99); Nucleated Red Blood Cells % 0 %; Platelet Count 188 K/mm3 (142-424); Red Blood Count 4.68 M/mm3 (4.20-5.40); Red Cell Distribution Width-SD 62.0 fL; White Blood Count 6.7 K/mm3 (4.8-10.8)
[2025-02-11 08:41] LABS: Anion Gap 10.9 mEq/L (5-15); Blood Urea Nitrogen 24 mg/dl (7-17); Calcium 9.4 mg/dl (8.4-10.2); Carbon Dioxide 34 mmol/L (22.0-30.0); Chloride 98 mmol/L (98-107); Creatinine,Serum 1.10 mg/dl (0.52-1.04); Estimated Glomerular Filt Rate 52 ml/min (>60); GFR (African American) 63 ML/MIN (>60); Glucose 137 mg/dl (74-100); Potassium 3.9 mmoL/L (3.5-5.1); Sodium 139 mmol/L (136-145)
[2025-02-11] MEDS: HEPARIN 1,000 UNITS/500ML NS (CATH LAB) 3000 UNIT IV (10:02)
[2025-02-11] MEDS: LIDOCAINE 1% 10ML MDV 10 ML IJ (10:02)
[2025-02-11] MEDS: NITROGLYCERIN 800MCG/8ML SYR (CATH LAB) 800 MCG IA (10:02)
[2025-02-11] MEDS: VERAPAMIL 2.5MG/ML 2ML VIAL 2.5 MG IV (10:03)
[2025-02-11] MEDS: 0.9 % SODIUM CHLORIDE 500 ML 25 ML IV (10:03)
[2025-02-11] MEDS: HEPARIN 1,000 UNITS/ML 10ML VIAL (CATH LAB) 5000 UNIT IV (10:03)
[2025-02-11] MEDS: MIDAZOLAM HCL 1MG/ML 5ML VIAL 1 MG IV (10:51)
[2025-02-11] MEDS: FENTANYL 100MCG/2ML VIAL 50 MCG IV (10:51)
[2025-02-11] MEDS: IOPAMIDOL-370 (76%);100ML BOTTLE 60 ML IV (12:44)
[2025-02-11 12:51] LABS: CATHL Arterial O2 SAT 61.6 % (90-100); CATHL Venous O2 SAT 63.8 % (75-80)
== END 2025-02-11 13:44 | disposition home or self-care (01) ==
PROVIDERS: PCP Family Medicine; Visit Provider Internal Medicine
PROC: 4A023N7 Measurement of Cardiac Sampling and Pressure, Left Heart, Percutaneous Approach (ICD-10-PCS; CPT 93452; principal; 2025-02-11 07:30)
PROC: 4A023N6 Measurement of Cardiac Sampling and Pressure, Right Heart, Percutaneous Approach (ICD-10-PCS; CPT 93451; 2025-02-11 07:30)
DX: I20.89 Other forms of angina pectoris (principal); R94.39 Abnormal result of other cardiovascular function study; I27.20 Pulmonary hypertension, unspecified; I11.0 Hypertensive heart disease with heart failure; I50.33 Acute on chronic diastolic (congestive) heart failure; I89.0 Lymphedema, not elsewhere classified; R94.30 Abnormal result of cardiovascular function study, unspecified; E78.2 Mixed hyperlipidemia; J44.89 Other specified chronic obstructive pulmonary disease; J96.22 Acute and chronic respiratory failure with hypercapnia; E03.9 Hypothyroidism, unspecified; G47.33 Obstructive sleep apnea (adult) (pediatric); E66.01 Morbid (severe) obesity due to excess calories; Z68.45 Body mass index [BMI] 70 or greater, adult; Z93.0 Tracheostomy status; F17.210 Nicotine dependence, cigarettes, uncomplicated; Z79.51 Long term (current) use of inhaled steroids; Z79.899 Other long term (current) drug therapy; Z79.890 Hormone replacement therapy; Z79.01 Long term (current) use of anticoagulants; Z88.1 Allergy status to other antibiotic agents; Z88.5 Allergy status to narcotic agent; Z88.2 Allergy status to sulfonamides
CPT/HCPCS: 80048; 82810; 85025; 93460; 99152; 99153; C1725; C1760; C1769; C1894; J1200; J1644; J3010; J7040; Q9967

== ENCOUNTER 2025-03-28 09:50 | Outpatient (CLI) | payer MEDICAID, SELFPAY ==
[2025-03-28 20:44] LABS: Hematocrit 42.3 % (37.0-47.0); Hemoglobin 12.8 g/dL (12.2-16.2); Immature Granulocytes % 0.4 %; Mean Corpuscular HGB Conc 30.3 g/dL (31.8-35.4); Mean Corpuscular Hemoglobin 27.7 pg (27.0-31.2); Mean Corpuscular Volume 91.6 fl (81-99); Nucleated Red Blood Cells % 0 %; Platelet Count 171 K/mm3 (142-424); Red Blood Count 4.62 M/mm3 (4.20-5.40); Red Cell Distribution Width-SD 60.1 fL; White Blood Count 8.0 K/mm3 (4.8-10.8)
[2025-03-28 21:09] LABS: Hemoglobin A1C 5.2 % (4.0-6.0)
[2025-03-28 21:38] LABS: Albumin Level 3.8 g/dl (3.5-5.0); Chloride 94 mmol/L (98-107); Sodium 135 mmol/L (136-145)
[2025-03-28 21:39] LABS: Potassium 4.4 mmoL/L (3.5-5.1)
[2025-03-28 21:41] LABS: Alanine Aminotransferase 14 U/L (12-78); Alkaline Phosphatase 97 U/L (38-126); Aspartate Amino Transferase 23 U/L (14-36); Bilirubin,Total 0.3 mg/dl (0.2-1.3); Blood Urea Nitrogen 15 mg/dl (7-17); Carbon Dioxide 34 mmol/L (22.0-30.0); Cholesterol 179 mg/dl (140-200); Creatinine,Serum 1.10 mg/dl (0.52-1.04); Estimated Glomerular Filt Rate 52 ml/min (>60); GFR (African American) 63 ML/MIN (>60); Total Protein,Serum 7.6 g/dl (6.3-8.2); Triglycerides 229 mg/dl (30-150)
[2025-03-28 21:42] LABS: Calcium 8.5 mg/dl (8.4-10.2); Glucose 101 mg/dl (74-100); HDL Cholesterol 32 mg/dl (40-60)
[2025-03-28 21:43] LABS: Anion Gap 11.4 mEq/L (5-15)
[2025-03-28 22:40] LABS: Albumin/Globulin Ratio 1.0 (1.1-1.8); Globulin 3.8 g/dL (1.3-3.2)
--- OUTSIDE RECORDS SUMMARY | 2025-03-31 09:57 | XMS_ITS | Clinical Summary ---
Author Organization [facility] Address [address] [facility] [address] [place] [address] Phone Care Team Providers Care Baling Press Operator Name Role Phone Unavailable Unavailable Conditions or Problems No information available. Medications No information available. Medications Administered No information available. Allergies, Adverse Reactions, Alerts No information available. Results No information available. Plan of Care No information available. Procedures No information available. Vital Signs No information available. Immunizations No information available. Advance Directives No information available.
--- OUTSIDE RECORDS SUMMARY | 2025-03-31 09:58 | XMS_ITS | Clinical Summary ---
Author Organization [employer] ([place], [place], [place], [place]) Address [address] [place] [address] Care Team Providers Care Formula Checker Name Role Phone Unavailable Primary Care [...]
--- OUTSIDE RECORDS SUMMARY | 2025-03-31 09:58 | XMS_ITS | Clinical Summary ---
Author Organization [facility] Address [address] [place] [address] Care Team Providers Care Board Of Directors Name Role Phone Mario Sher MD Primary Care Provider +1- [phone] Allergies Active Allergy Reactions Criticality Noted Date [...] 06/15/2021 ZOSTER VACCINE (1 of 2) 01/12/2024 INFLUENZA VACCINE 01/03/2025 06/15/2021, , 02/01/2017 TDAP/TD VACCINES (2 - Td or Tdap) 08/18/[address] [place] [id number] MEDICAID [place] Care Teams Board Of Directors Relationship Specialty Start Date End Date Mario Sher MD [address] [place] [address] PCP - General Family Medicine 09/16/24
--- OUTSIDE RECORDS SUMMARY | 2025-03-31 09:58 | XMS_ITS | Clinical Summary ---
Author Organization [facility] Address [address] [place] [address] Phone Care Team Providers Care Pals Nurse Name Role Phone Unavailable Primary Care [...]
--- OUTSIDE RECORDS SUMMARY | 2025-03-31 09:58 | XMS_ITS | Clinical Summary ---
Author Organization [facility] Address [address] [place] [address] Phone Care Team Providers Care Spoke Maker Name Role Phone Unavailable Primary Care [...] on file Sexual Orientation Not on file Plan of Treatment Health Maintenance Due Date Last Done Comments Annual Wellness Exam 1977 DTaP/TDaP/Td (1 - Tdap) 1993 Hepatitis B Vaccine (1 of 3 - 19+ 3-dose series) 1993 Cologuard 2019 Colon Cancer Screening 2019 Colonoscopy 2019 FIT 2019 Sigmoidoscopy 2019 Virtual Colonography 2019 Pneumococcal Vaccine 50+ (1 of 1 - PCV) 01/12/2024 Zoster (1 of 2) 01/12/2024 COVID-19 Vaccine (1 - 2024-2 6 season) 2025 Influenza Vaccine (#1) 2025 Meningococcal B Vaccine Aged Out No l onger eligible based on patient's age to complete this topic Insurance [employer] [place] [id number] MDR [employer] [place] [id number] MDR [place] [id number] [place] [place] [id number] MDR [address] [facility]
--- OUTSIDE RECORDS SUMMARY | 2025-03-31 09:58 | XMS_ITS | Clinical Summary ---
Author Organization [facility] Address [address] [place] [address] Care Team Providers Care Statistics Tutor Name Role Phone Provider, Unknown Primary Care [...] Vaccination (Every 10 Years) 08/18/203208/03 Insurance MEDICAID [place] Care Teams Statistics Tutor Relationship Specialty Start Date End Date Provider, Unknown PCP - General 09/12/24
--- OUTSIDE RECORDS SUMMARY | 2025-03-31 09:58 | XMS_ITS | Referral Summary ---
Author Organization [employer] ([place], [place], [place], [place]) Address [address] [place] [address] Care Team Providers Care Hardware Engineer Name Role Phone Unavailable Primary Care [...]
== END 2025-03-28 23:59 ==
LOC: LAB.DROPOF 03-31 09:51
PROVIDERS: PCP Family Medicine; Visit Provider Family Medicine
DX: D64.9 Anemia, unspecified (principal); R73.03 Prediabetes
CPT/HCPCS: 80053; 80061; 83036; 85025

== ENCOUNTER 2025-04-14 15:59 | Outpatient (CLI) | payer MEDICAID, SELFPAY ==
--- OUTSIDE RECORDS SUMMARY | 2025-04-15 16:00 | XMS_ITS | Clinical Summary ---
Author Organization [facility] Address [address] [place] [address] Phone Care Team Providers Care Metal Precision Machine Assembler Name Role Phone Unavailable Primary Care [...] to complete this topic Insurance [employer] [place] [id number] MDR [employer] [place] [address] MDR [place] [id number] [place] [place] [id number] MDR [address] [facility]
--- OUTSIDE RECORDS SUMMARY | 2025-04-15 16:00 | XMS_ITS | Clinical Summary ---
Author Organization [facility] Address [address] [place] [address] Care Team Providers Care Client Relation Specialist Name Role Phone Mario Sher MD Primary Care Provider +1- [phone] Allergies Active Allergy Reactions Criticality Noted Date [...] [place] [address] [place]ICAID [place] Care Teams Client Relation Specialist Relationship Specialty Start Date End Date Mario Sher MD [address] [place] [address] PCP - General Family Medicine 09/16/24
--- OUTSIDE RECORDS SUMMARY | 2025-04-15 16:00 | XMS_ITS | Clinical Summary ---
Author Organization [facility] Address [address] [place] [address] Phone Care Team Providers Care Reinforcing Steel Machine Operator Name Role Phone Unavailable Primary [...]
--- OUTSIDE RECORDS SUMMARY | 2025-04-15 16:00 | XMS_ITS | Clinical Summary ---
Author Organization [facility] Address [address] [place] [address] Care Team Providers Care Quality Control Engineering Technician Name Role Phone Provider, Unknown Primary Care [...] Vaccination (Every 10 Years) 08/18/203208/03 Insurance MEDICAID [place] Care Teams Quality Control Engineering Technician Relationship Specialty Start Date End Date Provider, Unknown PCP - General 09/12/24
--- OUTSIDE RECORDS SUMMARY | 2025-04-15 16:00 | XMS_ITS | Clinical Summary ---
Author Organization [employer] [facility] ([place], [place], [place], [place], [place]) Address [address] [place] [address] Care Team Providers Care Infant And Toddler Teacher Name Role Phone Unavailable Primary Care [...]
--- OUTSIDE RECORDS SUMMARY | 2025-04-15 16:00 | XMS_ITS | Referral Summary ---
Author Organization [employer] [facility] ([place], [place], [place], [place], [place]) Address [address] [place] [address] Care Team Providers Care Tailer Off Name Role Phone Unavailable Primary Care Provider [...]
--- OUTSIDE RECORDS SUMMARY | 2025-04-15 16:00 | XMS_ITS | Clinical Summary ---
Author Organization [facility] Address [address] [facility] [address] [place] [address] Phone Care Team Providers Care Bone Char Operator Name Role Phone Unavailable Unavailable Conditions or Problems No information available. Medications No information available. Medications Administered No information available. Allergies, Adverse Reactions, Alerts No information available. Results No information available. Plan of Care No information available. Procedures No information available. Vital Signs No information available. Immunizations No information available. Advance Directives No information available.
== END 2025-04-14 23:59 | disposition home or self-care (01) ==
LOC: LAB.DROPOF 04-15 15:59
PROVIDERS: PCP Family Medicine; Visit Provider Family Medicine
DX: L30.9 Dermatitis, unspecified (principal)
CPT/HCPCS: 87101